=== PATIENT | female | born 1960 | race Caucasian/White ===

== ENCOUNTER 2016-11-18 09:57 | Emergency (ER) | payer OTHER ==
[~2016-11-18] VITALS: Ht 160 cm; Wt 70.0 kg
[~2016-11-18 09:57] MED LIST: ALUMCHW2 PO; AZIT-57 PO; FENT25DI10 TD; IPRA1AER2 INH; METO1TAB54 PO; ONDA4TAB46 PO
[2016-11-18 10:00] VITALS: TEMP 37.2; Ht 160 cm; Wt 70.0 kg
[2016-11-18] MEDS ORDERED: ONDANSETRON INJ 2 MG/ML 2 ML VIAL IV STA (10:12)
[2016-11-18] MEDS ORDERED: ALBUTEROL 0.083% NEBU SOLN 3 ML VIAL INH STA (10:12)
[2016-11-18] MEDS ORDERED: SODIUM CHLORIDE 0.9% 1000ML 1,000 ML IV STA (10:12)
[2016-11-18] MEDS ORDERED: BENZONATATE 100MG CAP PO ONE (10:15)
[2016-11-18 10:43] LABS: HEMATOCRIT 32.7 % (37-47); MEAN CELL VOLUME 87.2 fL (80-100); MEAN CORPUSCULAR HEMOGLOBIN 30.7 pg (25-34); MEAN CORPUSCULAR HGB CONC 35.2 g/dl (32-36); MEAN PLATELET VOLUME 8.6 fL (7.4-10.4); PLATELET COUNT 206 K/uL (130-400); RED BLOOD COUNT 3.75 M/uL (4.2-5.4); WHITE BLOOD COUNT 5.48 K/uL (4.8-10.8)
[2016-11-18 11:01] LABS: ALT/SGPT 22 U/L (12-78); BLOOD UREA NITROGEN 7 mg/dl (7-18); BUN/CREATININE RATIO 11.9 (10-20); CALCIUM 8.4 mg/dl (8.5-10.1); CARBON DIOXIDE 17 mmol/L (21-32); CHLORIDE 106 mmol/L (98-107); CREATININE 0.59 mg/dl (0.60-1.20); GLUCOSE 109 mg/dl (70-99); POTASSIUM 3.2 mmol/L (3.5-5.1); SODIUM 136 mmol/L (136-145)
[2016-11-18 11:06] LABS: ALKALINE PHOSPHATASE 56 U/L (45-117); AST/SGOT 20 U/L (15-37)
[2016-11-18 11:10] LABS: BASO % 0.2 %; BASO ABS # 0.01 K/uL (0-0.2); COMPLETE YES; EOS % 0.2 %; IG% 0.4 %; LYMPH % 17.2 %; LYMPH ABS # 0.94 K/uL (1.2-3.4); MONO % 11.1 %; NEUT % 70.9 %
[2016-11-18] MEDS ORDERED: ACETAMINOPHEN 500 MG TAB PO STA (11:15)
--- NOTE | 2016-11-18 11:35 | DIAGNOSTIC IMAGING REPORT ---
CHEST 2 VIEWS ROUTINE CLINICAL HISTORY: Shortness of breath. COMPARISON STUDY: Chest radiograph and chest CT November 14, 2016. FINDINGS: Incidental note is made of several healed right rib fractures, an anterior cervical spine fusion and partially imaged lumbar spine hardware. Lung volumes are normal. There is no pneumothorax or pleural effusion. Linear left basilar opacity is suggestive of atelectasis. There is no evidence of pulmonary edema. Cardiac size is normal. Mediastinal contours are normal. IMPRESSION: No acute cardiopulmonary findings. Electronically signed by: Chuck Buenrostro M.D. 11/18/2016 11:33 AM
[2016-11-18 11:45] LABS: URINE APPEARANCE CLEAR (CLEAR); URINE BILIRUBIN NEG (NEG); URINE COLOR YELLOW; URINE NITRITE NEG (NEG); URINE PH 7.5 (4.5-7.5); URINE SPECIFIC GRAVITY 1.001 (1.000-1.030); UROBILINOGEN NEG (NEG)
[2016-11-18 11:54] LABS: MANUAL MICROSCOPIC REQUIRED? NO; REVIEW REQ? NO
--- NOTE | 2016-11-18 12:30 | DIAGNOSTIC IMAGING REPORT ---
ABDOMEN 2 VIEWS CLINICAL HISTORY: vomiting nausea COMPARISON STUDY: 11/12/2015 FINDINGS: Nonobstructive bowel pattern. Extensive postoperative change of the lumbar spine and bony pelvis. This is been described previously. Old healed fractures of the left pubic ring. Deformity left lateral iliac wing presumably postoperative and or posttraumatic. As a nonacute finding. IMPRESSION: Nonobstructive bowel pattern. Electronically signed by: Jerome Daugherty M.D. 11/18/2016 12:28 PM
[2016-11-18 13:49] LABS: VEN BLOOD GAS BASE EXCESS -5.2 mmol/L; VENOUS BLOOD GAS PCO2 31 mmHg (38.0-50.0); VENOUS BLOOD GAS PO2 30 mmHg
[2016-11-18 13:50] LABS: VEN BLD GAS O2 SATURATION < 60.0 %
[2016-11-18] MEDS ORDERED: PRED50TA PO (14:12)
[2016-11-18] MEDS ORDERED: POTASSIUM CHLORIDE 10 MEQ TABCR PO STA (14:14)
[2016-11-18 14:30] VITALS: BP 125/74; PULSE 87; O2SAT 97
--- NOTE | 2016-11-18 18:06 | EMERGENCY ROOM VISIT NOTE ---
History Report prepared by Tonya: Dionne Clemons Under the Supervision of: Dr. Lexx Williamson D.O. First contact with patient: 10:02 Chief Complaint: RESPIRATORY PROBLEMS Stated Complaint: CAN'T BREATHE, DARK MUCUS, DIARRHEA, NAUSEA, WEAK Nursing Triage Summary: Triage Note: pt reports "i just feel terrible for the past few days and i am coughing up green sputum, i was in here a few days ago and dx with bronchitis." History of Present Illness The patient is a 56 year old female who presents to the Emergency Room with complaints of persistent respiratory problems that started one week ago. She states that she is experiencing shortness of breath and a productive cough with dark green sputum. She is also experiencing rhinorrhea, chills, nausea, and diarrhea. She is unsure of how many episodes of diarrhea she has experienced. The patient has not recorded any fevers. She denies sore throat, abdominal pain , and vomiting. The patient was seen in the ED 4 days ago for similar symptoms. She had a CT of her head and sinuses as well as a CT for a PE. All of the CT scans were unremarkable. The patient also tested negative for both influenza A and influenza B during that visit. She was diagnosed with bronchitis and sent home with a z-pack. She started the z-pack 4 days ago. The patient states that her mother was recently admitted for influenza. The patient adds that she has COPD. Source of History: patient Onset: one week ago Position: chest Quality: other (respiratory problems) Timing: other (persistent) Associated Symptoms: + chills, + diarrhea, + nausea, No abdominal pain, No sorethroat, No vomiting Note: rhinorrhea Review of Systems See HPI for pertinent positives & negatives. A total of 10 systems reviewed and were otherwise negative. Past Medical & Surgical Medical Problems: (1) Anxiety (2) Bipolar disorder (3) Bipolar Disorder, Unspecified (4) Cervicalgia (5) Chronic alcoholism in remission (6) Chronic back pain (7) Chronic headache (8) Chronic hepatitis C (9) Chronic obstructive lung disease (10) Chronic urinary urge incontinence (11) Closed head injury (12) Depression (13) Gastroesophageal reflux disease (14) Gastroparesis (15) History of aspiration pneumonia (16) History of Clostridium difficile colitis (17) History of drug abuse (18) History of sepsis (19) History of supraventricular tachycardia (20) Lumbago (21) Osteoarthritis (22) Osteoporosis (23) Pancreatitis (24) PTSD (post-traumatic stress disorder) (25) Ulnar neuropathy Surgical Problems: (1) Bladder Repair (2) H/O colonoscopy (3) H/O cystoscopy (4) H/O esophagogastroduodenoscopy (5) H/O sinus surgery (6) History of hip surgery (7) Right Tibia/Fibula Repair (8) S/P cervical spinal fusion (9) s/p colonoscopy (10) s/p cystoscopy (11) s/p EGD (12) S/p esophagogastric fundoplasty (13) s/p laparoscopic fundoplication hiatal hernia (14) S/p lumbar decompression/fusion (15) s/p reconstruction hip socket (16) s/p tonsillectomy (17) S/P tonsillectomy and adenoidectomy (18) s/p tubal ligation (19) S/P tubal ligation Family History Diabetes mellitus FATHER GRANDMOTHER FH: colon cancer GRANDMOTHER Gallbladder disease Heart disease Hypertension FATHER MOTHER Kidney disease Kidney stones Social History Smoking Status: Never Smoker Alcohol Use: none Drug Use: other Marital Status: Housing Status: lives with family Occupation Status: disabled Current/Historical Medications Scheduled Albuterol Sulfate (Proair Respiclick), 1 PUFF INH TID Amlodipine (Norvasc), 2.5 MG PO DAILY Arformoterol Tartrate (Brovana 15MCG/2ML Soln), 1 PUFF INH BID Aripiprazole (Abilify), 30 MG PO HS Azelastine Hcl (Astelin Nasal Miles), 2 SPRAYS NA TID Azithromycin (Azithromycin), 1 TAB PO DAILY Baclofen (Lioresal), 10 MG PO TID Buspirone Hcl (Buspar), 15 MG PO BID Cetirizine (Zyrtec), 10 MG PO DAILY Dexlansoprazole (Dexilant), 60 MG PO DAILY Famciclovir (Famvir), 1,000 MG PO BID Fentanyl (Duragesic), 25 MCG TD Q72H Ferrous Sulfate (Ferrous Sulfate), 325 MG PO QAM Fluticasone Propionate (Nasal) (Flonase Allergy Relief), 2 SPRAYS MALLORIE BID Folic Acid (Folvite), 1 MG PO QAM Lamotrigine (Lamictal), 25 MG PO BID Lamotrigine (Lamictal), 100 MG PO BID Lorazepam (Ativan), 2 MG PO BID Metoclopramide Hcl (Reglan), 5 MG PO QID Metoprolol Succinate (Toprol Xl), 25 MG PO DAILY Mirabegron (Myrbetriq), 50 MG PO QAM Multiple Vitamins W/ Minerals (Centrum Adults), 1 TAB PO QAM Polyethylene Glycol 3350 (Miralax), 17 GM PO DAILY Prednisone (Prednisone), 50 MG PO DAILY Ranitidine (Zantac), 300 MG PO HS Sulindac (Clinoril), 150 MG PO BID Topiramate (Topamax), 100 MG PO BID Venlafaxine Hcl (Effexor Xr), 75 MG PO DAILY@ NOON Venlafaxine Hcl (Effexor Xr), 300 MG PO QAM Scheduled PRN Docusate Sodium (Docusate Sodium), 100 MG PO BID PRN for Constipation Furosemide (Lasix), 20 MG PO DAILY PRN for SWELLING/WEIGHT GAIN Glycerin (Laxative) (Glycerin Adult), 1 SUPP MA DAILY PRN for Constipation Mupirocin 2% (Bactroban 2%), 1 APPLN MALLORIE TID PRN for UNDECIDED Ondansetron Hcl (Zofran), 4 MG PO Q8 PRN for Nausea Allergies Coded Allergies: Clarithromycin (Verified Adverse Reaction, Intermediate, vomiting, 11/18/16) Chlorpromazine (Verified Adverse Reaction, Unknown, LIGHTHEADED DIZZY, 11/18) Lisinopril (Verified Adverse Reaction, Unknown, Cough, 11/18/16) Reported by PT. Physical Exam Vital Signs Date Time Temp Pulse Resp B/P Pulse Ox O2 Delivery O2 Flow Rate FiO2 11/18/16 14:30 87 20 125/74 97 11/18/16 13:50 83 20 120/73 96 Room Air 11/18/16 11:41 92 20 117/75 96 Room Air 11/18/16 10:10 97 Room Air 11/18/16 10:00 37.2 99 22 128/84 96 Room Air Physical Exam GENERAL: alert, sitting up in bed, nonproductive cough, disheveled appearing, well nourished, no distress, non-toxic EYE EXAM: normal conjunctiva OROPHARYNX: no exudate, no erythema, lips, buccal mucosa, and tongue normal and mucous membranes are moist NECK: supple, no nuchal rigidity, no adenopathy, non-tender LUNGS: Rhonchi bilateral upper lobes. Normal chest wall mechanics HEART: no murmurs, S1 normal and S2 normal ABDOMEN: abdomen soft, non-tender, hyperactive bowel sounds, no masses, no rebound or guarding. BACK: Back is symmetrical on inspection and there is no deformity, no midline tenderness, no CVA tenderness. SKIN: no rashes and no bruising UPPER EXTREMITIES: upper extremities are grossly normal. LOWER EXTREMITIES: No pitting edema. NEURO EXAM: Normal sensorium, cranial nerves II-XII grossly intact, normal speech, no gross weakness of arms, no gross weakness of legs. Medical Decision & Procedures ER Provider Diagnostic Interpretation: Xray results per the radiologist and my interpretation. CHEST 2 VIEWS ROUTINE CLINICAL HISTORY: Shortness of breath. COMPARISON STUDY: Chest radiograph and chest CT November 14, 2016. FINDINGS: Incidental note is made of several healed right rib fractures, an anterior cervical spine fusion and partially imaged lumbar spine hardware. Lung volumes are normal. There is no pneumothorax or pleural effusion. Linear left basilar opacity is suggestive of atelectasis. There is no evidence of pulmonary edema. Cardiac size is normal. Mediastinal contours are normal. IMPRESSION: No acute cardiopulmonary findings. Electronically signed by: Chuck Buenrostro M.D. 11/18/2016 11:33 AM ABDOMEN 2 VIEWS CLINICAL HISTORY: vomiting nausea COMPARISON STUDY: 11/12/2015 FINDINGS: Nonobstructive bowel pattern. Extensive postoperative change of the lumbar spine and bony pelvis. This is been described previously. Old healed fractures of the left pubic ring. Deformity left lateral iliac wing presumably postoperative and or posttraumatic. As a nonacute finding. IMPRESSION: Nonobstructive bowel pattern. Electronically signed by: Jerome Daugherty M.D. 11/18/2016 12:28 PM Laboratory Results 11/18/16 10:29 Red Blood Count 3.75, Mean Corpuscular Volume 87.2, Mean Corpuscular Hemoglobin 30.7, Mean Corpuscular Hemoglobin Concent 35.2, Mean Platelet Volume 8.6, Neutrophils (%) (Auto) 70.9, Lymphocytes (%) (Auto) 17.2, Monocytes (%) (Auto) 11.1, Eosinophils (%) (Auto) 0.2, Basophils (%) (Auto) 0.2, Neutrophils # (Auto ) 3.89, Lymphocytes # (Auto) 0.94, Monocytes # (Auto) 0.61, Eosinophils # (Auto ) 0.01, Basophils # (Auto) 0.01 11/18/16 10:29 Test 11/18/16 10:12 11/18/16 10:29 11/18/16 11:14 11/18/16 13:33 Influenza Type A Antigen Neg for Influ A (NEG) Influenza Type B Antigen Neg for Influ B (NEG) White Blood Count 5.48 K/uL (4.8-10.8) Red Blood Count 3.75 M/uL (4.2-5.4) Hemoglobin 11.5 g/dL (12.0-16.0) Hematocrit 32.7 % (37-47) Mean Corpuscular Volume 87.2 fL (80-100) Mean Corpuscular Hemoglobin 30.7 pg (25-34) Mean Corpuscular Hemoglobin Concent 35.2 g/dl (32-36) Platelet Count 206 K/uL (130-400) Mean Platelet Volume 8.6 fL (7.4-10.4) Neutrophils (%) (Auto) 70.9 % Lymphocytes (%) (Auto) 17.2 % Monocytes (%) (Auto) 11.1 % Eosinophils (%) (Auto) 0.2 % Basophils (%) (Auto) 0.2 % Neutrophils # (Auto) 3.89 K/uL (1.4-6.5) Lymphocytes # (Auto) 0.94 K/uL (1.2-3.4) Monocytes # (Auto) 0.61 K/uL (0.11-0.59) Eosinophils # (Auto) 0.01 K/uL (0-0.5) Basophils # (Auto) 0.01 K/uL (0-0.2) RDW Standard Deviation 45.2 fL (36.4-46.3) RDW Coefficient of Variation 14.0 % (11.5-14.5) Immature Granulocyte % (Auto) 0.4 % Immature Granulocyte # (Auto) 0.02 K/uL (0.00-0.02) Anion Gap 13.0 mmol/L (3-11) Est Creatinine Clear Calc Drug Dose 99.9 ml/min Estimated GFR () 118.8 Estimated GFR (Non- 102.5 BUN/Creatinine Ratio 11.9 (10-20) Calcium Level 8.4 mg/dl (8.5-10.1) Total Bilirubin 0.3 mg/dl (0.2-1) Direct Bilirubin 0.1 mg/dl (0-0.2) Aspartate Amino Transf (AST/SGOT) 20 U/L (15-37) Alanine Aminotransferase (ALT/SGPT) 22 U/L (12-78) Alkaline Phosphatase 56 U/L (45-117) Troponin I < 0.015 ng/ml (0-0.045) Total Protein 7.3 gm/dl (6.4-8.2) Albumin 3.4 gm/dl (3.4-5.0) Lipase 104 U/L (73-393) Urine Color YELLOW Urine Appearance CLEAR (CLEAR) Urine pH 7.5 (4.5-7.5) Urine Specific [place] 1.001 (1.000-1.030) Urine Protein NEG (NEG) Urine Glucose (UA) NEG (NEG) Urine Ketones NEG (NEG) Urine Occult Blood NEG (NEG) Urine Nitrite NEG (NEG) Urine Bilirubin NEG (NEG) Urine Urobilinogen NEG (NEG) Urine Leukocyte Esterase NEG (NEG) Venous Blood pH 7.40 (7.36-7.41) Venous Blood Partial Pressure CO2 31 mmHg (38.0-50.0) Venous Blood Partial Pressure O2 30 mmHg Venous Blood HCO3 19 mmol/L Venous Blood Oxygen Saturation < 60.0 % Venous Blood Base Excess -5.2 mmol/L Laboratory results per my review. Medications Administered Medications (Trade) Dose Ordered Sig/Jennifer Route Start Time Stop Time Status Last Admin Dose Admin Albuterol Sulfate (Ventolin 0.083% 2.5MG/3ML [facility]) 2.5 mg NOW STAT INH 11/18/16 10:12 11/18/16 10:15 DC 11/18/16 10:28 2.5 MG Benzonatate 100 mg 100 mg NOW ONCE PO 11/18/16 10:15 11/18/16 10:16 DC 11/18/16 10:27 100 MG Sodium Chloride (Nss 1000ml) 1,000 ml @ 999 mls/hr Q1H1M STAT IV 11/18/16 10:12 11/18/16 11:12 DC 11/18/16 10:28 999 MLS/HR Ondansetron HCl (Zofran Inj) 4 mg NOW STAT IV 11/18/16 10:12 11/18/16 10:15 DC 11/18/16 10:34 4 MG Acetaminophen (Tylenol Tab) 1,000 mg NOW STAT PO 11/18/16 11:15 11/18/16 11:17 DC 11/18/16 11:28 1,000 MG Prednisone (PredniSONE TAB) 40 mg NOW STAT PO 11/18/16 14:11 11/18/16 14:12 DC 11/18/16 14:23 40 MG Potassium Chloride (Klor-Con M10) 40 meq NOW STAT PO 11/18/16 14:14 11/18/16 14:15 DC 11/18/16 14:23 40 MEQ ECG Indication: SOB/dyspnea Rate (beats per minute): 91 Rhythm: sinus rhythm Findings: no ectopy, other (normal axis, poor baseline in inferior leads) Comparison ECG Date: 11/14/2016 Change: no significant change ED Course ED COURSE: Vital signs were reviewed and showed normal. The patients medical record was reviewed The above diagnostic studies were performed and reviewed. ED treatments and interventions as stated above. 1006: The patient was evaluated in room A3. A complete history and physical examination was performed. 1012: Ordered Zofran 4 mg IV, Sodium Chloride 1000 ml @ 999 mls/hr IV, Albuterol Sulfate 2.5 mg INH 1015: Ordered Benzonatate 100 mg PO 1115: Ordered Tylenol Tab 1000 mg PO 1332: I reassessed and updated the patient. 1411: Ordered Prednisone 40 mg PO 1414: Ordered Potassium Chloride 40 meq PO 1418: Upon reevaluation, the patient is doing well. I discussed my findings with the patient and she understands and agrees with the treatment plan. Based on the patients age, coexisting illnesses, exam and lab findings the decision to treat as an outpatient was made. The patient remained stable while under my care. The patient appeared well at the time of discharge. Medical Decision Differential diagnoses includes but is not limited to pneumonia, bronchitis, COPD/Asthma exacerbation, pneumothorax, pulmonary embolism, congestive heart failure, acute coronary syndrome. Patient is a 56-year-old female who presents the ER for cough, runny nose, which is been present for the past week. She has taken azithromycin without any improvement. She does have a history of COPD. Parent's family member was just admitted with influenza to the hospital. Vitals were stable upon presentation. She is not hypoxic. Chest shows no focal infiltrate. Labs show no significant leukocytosis or anemia. BMP did show a potassium of 3.2. Bicarbonate was slightly low at 17. This is clearly secondary to her profuse diarrhea. She is unable to give a stool on the ER. I did not test her for C. difficile with a recent antibiotic and history of C. difficile. She will follow -up with her PCP for C. difficile testing. VBG was obtained and did not show acidosis. Troponin was normal. Patient was given a neb treatment along with steroids and discharged to follow-up with her PCP. I do favor this is likely viral influenza exacerbating her COPD. Patient was discharged well-appearing to follow-up with her primary care doctor. Discussed with Pt concerning signs and symptoms to watch out for. Pt was instructed to follow up with their PCP and discussed with the patient their option to return to the ED at anytime for persistent or worsening symptoms. The appropriate anticipatory guidance and out- patient management, including indications for return to the emergency department , were explained at length to the patient and understood. Impression Primary Impression: Viral URI Additional Impressions: COPD exacerbation, Low bicarbonate Scribe Attestation The scribe's documentation has been prepared under my direction and personally reviewed by me in its entirety. I confirm that the note above accurately reflects all work, treatment, procedures, and medical decision making performed by me. Departure Information Dispostion Home / Self-Care Prescriptions Prednisone (Prednisone) 50 Mg Tab 50 MG PO DAILY for 4 Days, TAB Prov: Lexx Williamson, DO 11/18/16 Referrals Jerome Murillo M.D. (PCP) Forms HOME CARE DOCUMENTATION FORM, IMPORTANT VISIT INFORMATION, WORK / SCHOOL INSTRUCTIONS Patient Instructions A Signature Page, ED URI Viral, [facility] Additional Instructions Please follow up with your primary care doctor with in the next 24 hours. Any worsening of your symptoms, please return to the ED immediately. This includes persistent fevers greater than 100.4, passing out, worsening pain, coughing up large amounts of blood, or any other concerning signs or symptoms from your standpoint. Please take steroids as prescribed. You should also follow with her primary care doctor to give a stool sample for possible C. difficile.
[2016-12-02] MEDS ORDERED: BACL10TA PO (00:03)
[2016-12-02] MEDS ORDERED: RANI300T2 PO (00:11)
[2016-12-02] MEDS ORDERED: FAMC500T4 PO (00:16)
[2016-12-02] MEDS ORDERED: DEXL60CA4 PO (00:19)
[2016-12-02] MEDS ORDERED: FLUT0.15 NAE (00:25)
[2016-12-02] MEDS ORDERED: GLYC2SUP PR (00:36)
[2016-12-02] MEDS ORDERED: FOLI1TAB8 PO (05:34)
[2016-12-02] MEDS ORDERED: SULI150T PO (06:54)
[2016-12-02] MEDS ORDERED: DOCU100C31 PO (06:56)
[2016-12-02] MEDS ORDERED: FURO-85 PO (07:06)
[2016-12-02] MEDS ORDERED: METO25TA3 PO (07:09)
[2016-12-02] MEDS ORDERED: ATV/2 PO (07:12)
[2016-12-02] MEDS ORDERED: AMLO2.5T PO (07:14)
[2016-12-02] MEDS ORDERED: BUSP15TA70 PO (07:17)
[2016-12-02] MEDS ORDERED: LAMO100T16 PO (07:19)
[2016-12-02] MEDS ORDERED: FERR325T5 PO (08:37)
[2016-12-02] MEDS ORDERED: MULT-610 PO (09:18)
[2016-12-02] MEDS ORDERED: ASTN (09:53)
[2016-12-02] MEDS ORDERED: BCTROWC NAE (09:55)
[2016-12-02] MEDS ORDERED: ALBU18002 INH (10:48)
[2016-12-02] MEDS ORDERED: MIRA1TAB3 PO (11:36)
[2016-12-08] MEDS ORDERED: LVQ750 PO (13:21)
[2016-12-08] MEDS ORDERED: VTMD PO (13:21)
[2016-12-08] MEDS ORDERED: FENT25DI10 TD (13:21)
[2017-01-07] MEDS ORDERED: MONT1TAB5 PO (11:19)
[2017-01-12] MEDS ORDERED: HYDR-5688 PO (13:23)
[2017-01-12] MEDS ORDERED: ATV/1 PO (13:23)
[2017-01-12] MEDS ORDERED: FENT25DI10 TD (13:23)
[2017-01-12] MEDS ORDERED: DOCU-94 PO (15:05)
[2017-02-10] MEDS ORDERED: NYSTATIN POWDER EXT (09:36)
[2017-02-10] MEDS ORDERED: RANI300T2 PO (09:36)
[2017-02-10] MEDS ORDERED: FERR1TAB62 PO (09:36)
[2017-02-10] MEDS ORDERED: POLY335019 PO (09:36)
[2017-02-10] MEDS ORDERED: FOLI1TAB8 PO (09:36)
[2017-02-10] MEDS ORDERED: MIRA1TAB3 PO (09:36)
[2017-02-10] MEDS ORDERED: DEXL60CA4 PO (09:36)
[2017-02-10] MEDS ORDERED: MULT-506 PO (09:36)
[2017-02-10] MEDS ORDERED: ZOLP10TA PO (09:36)
[2017-02-10] MEDS ORDERED: CHOL1TAB63 PO (09:36)
[2017-02-10] MEDS ORDERED: ATV/2 PO (09:36)
[2017-02-10] MEDS ORDERED: VENL150C56 PO (09:36)
[2017-02-10] MEDS ORDERED: BISA10SU3 PR (09:36)
[2017-02-10] MEDS ORDERED: FENT25DI10 TD (09:36)
[2017-02-10] MEDS ORDERED: LAMO100T16 PO (09:36)
[2017-02-10] MEDS ORDERED: BUSP-8 PO (09:36)
[2017-02-10] MEDS ORDERED: CLN150 PO (09:36)
[2017-02-10] MEDS ORDERED: EFF75 PO (09:36)
[2017-02-10] MEDS ORDERED: ALUMCHW2 PO (09:36)
[2017-02-10] MEDS ORDERED: TOPI100T20 PO (09:36)
[2017-02-10] MEDS ORDERED: METO25TA3 PO (09:36)
[2017-02-10] MEDS ORDERED: FURO-85 PO (09:36)
[2017-02-10] MEDS ORDERED: CETI10TA84 PO (09:36)
[2017-02-10] MEDS ORDERED: METO1TAB54 PO (09:36)
[2017-02-10] MEDS ORDERED: FLUT0.15 NAE (09:36)
[2017-02-10] MEDS ORDERED: CYCL5TAB PO ×2 (09:36)
[2017-02-10] MEDS ORDERED: LAMO25TA PO (09:36)
[2017-02-10] MEDS ORDERED: MONT1TAB3 PO (09:36)
[2017-02-10] MEDS ORDERED: ONDA8TAB6 PO (09:36)
[2017-02-10] MEDS ORDERED: CALC500C70 PO (09:36)
[2017-02-10] MEDS ORDERED: ARIP30TA3 PO (09:36)
[2017-03-27] MEDS ORDERED: BACL10TA PO (09:37)
[2017-03-27] MEDS ORDERED: [UNRECOGNIZED DRUG - CODE] RE (09:37)
[2017-03-27] MEDS ORDERED: LAMO150T PO (09:37)
[2017-03-27] MEDS ORDERED: POTA10CA28 PO (09:37)
[2017-03-27] MEDS ORDERED: AMOX875T PO (09:37)
[2017-03-27] MEDS ORDERED: POLY335019 PO (09:37)
[2017-03-27] MEDS ORDERED: AZEL30SP NAE (09:37)
[2017-04-12] MEDS ORDERED: HYDR-5688 PO (08:28)
[2017-04-12] MEDS ORDERED: ASPEC325 PO (08:28)
[2017-06-22] MEDS ORDERED: DIVA500T59 PO (07:45)
[2017-07-27] MEDS ORDERED: CYCL10TA6 PO (08:01)
[2017-09-28] MEDS ORDERED: AMOX1TAB42 PO (08:11)
[2017-09-28] MEDS ORDERED: AMT24 PO (08:11)
[2017-09-28] MEDS ORDERED: PRD/1 PO (08:12)
[2017-10-18] MEDS ORDERED: CEPH500C2 PO (08:34)
[2017-10-18] MEDS ORDERED: HYDR-5806 PO (08:34)
[2017-11-05] MEDS ORDERED: DXY100 PO (11:06)
[2017-11-05] MEDS ORDERED: AMOX1TAB43 PO (11:06)
[2017-11-15] MEDS ORDERED: LAMO150T PO (09:45)
[2017-11-15] MEDS ORDERED: BUSP-8 PO (09:45)
== END 2016-11-18 14:31 | disposition home or self-care (01) ==
LOC: C.EDB 09:58 → C.EDA 14:31
DX: J06.9 Acute upper respiratory infection, unspecified (principal); J44.1 Chronic obstructive pulmonary disease with (acute) exacerbation; E87.8 Other disorders of electrolyte and fluid balance, not elsewhere classified; R19.7 Diarrhea, unspecified; F41.9 Anxiety disorder, unspecified; F31.9 Bipolar disorder, unspecified; K21.9 Gastro-esophageal reflux disease without esophagitis; G89.29 Other chronic pain; M54.9 Dorsalgia, unspecified; Z79.899 Other long term (current) drug therapy; Z79.891 Long term (current) use of opiate analgesic

== ENCOUNTER 2016-12-02 18:06 | Emergency (ER) | payer OTHER ==
[~2016-12-02] VITALS: Ht 160 cm; Wt 70.0 kg
[~2016-12-02 18:06] MED LIST changes: +ALBU18002 INH; -ALUMCHW2 PO; +AMLO2.5T PO; +ASTN; +ATV/2 PO; -AZIT-57 PO; +BACL10TA PO; +BCTROWC NAE; +BUSP15TA70 PO; +DEXL60CA4 PO; +DOCU100C31 PO; +FAMC500T4 PO; +FERR325T5 PO; +FLUT0.15 NAE; +FOLI1TAB7 PO; +FURO-85 PO; +GLYC2SUP PR; -IPRA1AER2 INH; +LAMO100T16 PO; +METO25TA3 PO; +MIRA1TAB3 PO; +MULT-610 PO; +RANI300T2 PO; +SULI150T PO; +ZTHM250 PO
[2016-12-02 18:18] VITALS: TEMP 36.9; Ht 160 cm; Wt 70.0 kg
[2016-12-02] MEDS ORDERED: ARIP1TAB PO (18:26)
[2016-12-02] MEDS ORDERED: RGL/5 PO (18:26)
[2016-12-02] MEDS ORDERED: ZOLP10TA6 PO (18:26)
[2016-12-02] MEDS ORDERED: ONDA4TAB46 SL (18:26)
[2016-12-02] MEDS ORDERED: VNTHFA/IN INH (19:16)
[2016-12-02] MEDS ORDERED: ACET1TAB84 PO (19:23)
[2016-12-02] MEDS ORDERED: HYDROCODONE/ACETAMOPHEN 5/325MG TAB PO STA (19:26)
--- NOTE | 2016-12-02 19:28 | EMERGENCY ROOM VISIT NOTE ---
History Report prepared by Tonya: Florencio Mcguire Under the Supervision of: Dr. Mahad Puentes M.D. First contact with patient: 19:15 Chief Complaint: GROIN PAIN Stated Complaint: EXTREME PAIN R GROIN,HIP,BACK, CAN BARELY WA;K History of Present Illness The patient is a 56 year old female who presents to the Emergency Room with complaints of worsening right groin pain beginning this morning. She notes her pain radiates to her hip and back but not down her legs. She notes the pain is worsened with movement and relieved with rest. She denies any recent falls or trauma. She reports she has a history of back problems, and had 2 back fusions and right hip repair in the past. The patient notes having a headache and nausea , and denies any fever, urinary symptoms though she has incontinence at baseline , leg swelling, or rash. She uses a Fentanyl patch placed 2 days ago and has taken 2 Sulindac and 2 Tylenol for her pain. Source of History: patient Onset: this morning Position: other (right groin) Quality: other (groin pain) Timing: worsening Modifying Factors (Worsening): movement Modifying Factors (Relieving): rest Associated Symptoms: + headache, + nausea, No fevers, No rash, No urinary symptoms Note: The patient denies any leg swelling. Review of Systems See HPI for pertinent positives & negatives. A total of 10 systems reviewed and were otherwise negative. Past Medical & Surgical Medical Problems: (1) Anxiety (2) Bipolar disorder (3) Bipolar Disorder, Unspecified (4) Cervicalgia (5) Chronic alcoholism in remission (6) Chronic back pain (7) Chronic headache (8) Chronic hepatitis C (9) Chronic obstructive lung disease (10) Chronic urinary urge incontinence (11) Closed head injury (12) Depression (13) Gastroesophageal reflux disease (14) Gastroparesis (15) History of aspiration pneumonia (16) History of Clostridium difficile colitis (17) History of drug abuse (18) History of sepsis (19) History of supraventricular tachycardia (20) Lumbago (21) Osteoarthritis (22) Osteoporosis (23) Pancreatitis (24) PTSD (post-traumatic stress disorder) (25) Ulnar neuropathy Surgical Problems: (1) Bladder Repair (2) H/O colonoscopy (3) H/O cystoscopy (4) H/O esophagogastroduodenoscopy (5) H/O sinus surgery (6) History of hip surgery (7) Right Tibia/Fibula Repair (8) S/P cervical spinal fusion (9) s/p colonoscopy (10) s/p cystoscopy (11) s/p EGD (12) S/p esophagogastric fundoplasty (13) s/p laparoscopic fundoplication hiatal hernia (14) S/p lumbar decompression/fusion (15) s/p reconstruction hip socket (16) s/p tonsillectomy (17) S/P tonsillectomy and adenoidectomy (18) s/p tubal ligation (19) S/P tubal ligation Family History Diabetes mellitus FATHER GRANDMOTHER FH: colon cancer GRANDMOTHER Gallbladder disease Heart disease Hypertension FATHER MOTHER Kidney disease Kidney stones Social History Smoking Status: Current Some Day Smoker Alcohol Use: none Drug Use: other Marital Status: Housing Status: lives with family Occupation Status: disabled Current/Historical Medications Scheduled Albuterol Hfa (Ventolin Hfa), 2 PUFFS INH QID Albuterol Sulfate (Proair Respiclick), 1 PUFF INH TID Aripiprazole (Abilify), 30 MG PO HS Azelastine Hcl (Astelin Nasal Stevenson), 2 SPRAYS NA TID Baclofen (Lioresal), 10 MG PO TID Buspirone Hcl (Buspar), 15 MG PO BID Cetirizine (Zyrtec), 10 MG PO DAILY Dexlansoprazole (Dexilant), 60 MG PO DAILY Fentanyl (Duragesic), 25 MCG TD Q72H Ferrous Sulfate (Ferrous Sulfate), 325 MG PO QAM Fluticasone Propionate (Nasal) (Flonase Allergy Relief), 2 SPRAYS MALLORIE BID Folic Acid (Folvite), 1 MG PO QAM Lamotrigine (Lamictal), 25 MG PO BID Lamotrigine (Lamictal), 100 MG PO BID Lorazepam (Ativan), 2 MG PO BID Metoclopramide HCl (Metoclopramide HCl), 5 MG PO ACHS Metoprolol Succinate (Toprol Xl), 25 MG PO DAILY Mirabegron (Myrbetriq Er), 50 MG PO QAM Multiple Vitamins W/ Minerals (Centrum Adults), 1 TAB PO QAM Ranitidine (Zantac), 300 MG PO QAM Sulindac (Clinoril), 150 MG PO BID Topiramate (Topamax), 100 MG PO BID Venlafaxine Hcl (Effexor Xr), 75 MG PO DAILY@ NOON Venlafaxine Hcl (Effexor Xr), 300 MG PO QAM Zolpidem Tartrate (Zolpidem Tartrate), 10 MG PO HS Scheduled PRN Acetaminophen (Tylenol Arthritis Ext Rel), 650 MG PO Q8H PRN for Pain Amlodipine (Norvasc), 2.5 MG PO DAILY PRN for HNT Arformoterol Tartrate (Brovana 15MCG/2ML Soln), 1 PUFF INH BID PRN for SOB/ Wheezing Docusate Sodium (Docusate Sodium), 100 MG PO BID PRN for Constipation Famciclovir (Famvir), 1,000 MG PO BID PRN for BREAKOUTS Furosemide (Lasix), 20 MG PO DAILY PRN for SWELLING/WEIGHT GAIN Glycerin (Laxative) (Glycerin Adult), 1 SUPP TX DAILY PRN for Constipation Hydrocodone/Acetaminophen 5MG/325MG ([place] 5MG/325MG), 1-2 TAB PO Q6H PRN for Pain Mupirocin 2% (Bactroban 2%), 1 APPLN MALLORIE TID PRN for UNDECIDED Ondansetron Hcl (Zofran), 4 MG SL Q8 PRN for Nausea Polyethylene Glycol 3350 (Miralax), 17 GM PO DAILY PRN for Constipation Promethazine Hcl (Phenergan), 25 MG PO Q4H PRN for Nausea Allergies Coded Allergies: Clarithromycin (Verified Adverse Reaction, Intermediate, vomiting, 11/18/16) Chlorpromazine (Verified Adverse Reaction, Unknown, LIGHTHEADED DIZZY, 11/18) Lisinopril (Verified Adverse Reaction, Unknown, Cough, 11/18/16) Reported by PT. Uncoded Allergies: VISTERAL (Allergy, Severe, THROAT CONSTRICTS/CAN NOT VOID, 12/02/16) Physical Exam Vital Signs Date Time Temp Pulse Resp B/P Pulse Ox O2 Delivery O2 Flow Rate FiO2 12/02/16 21:07 75 20 139/94 98 Room Air 12/02/16 19:55 71 20 126/89 96 Room Air 1/17/17 18:18 36.9 84 20 116/76 95 Room Air Physical Exam GENERAL: Patient is uncomfortable appearing and in mild distress. HEENT: No acute trauma, normocephalic atraumatic, mucous membranes moist, no nasal congestion, no scleral icterus. NECK: No stridor, no adenopathy, no meningismus, trachea is midline. LUNGS: No dyspnea. Clear to auscultation and equal bilaterally. No wheeze, no rhonchi. HEART: Regular rate and rhythm. No murmurs, rubs, gallops appreciated. ABDOMEN: Soft, nontender, bowel sounds positive, no masses appreciated, no peritonitis. BACK: No midline tenderness, no CVA tenderness EXTREMITIES: Pain with range of motion in right hip; vague tenderness over right hip; no cyanosis, no edema. NEUROLOGIC: Alert and oriented, no acute motor or sensory deficits, no focal weakness, cranial nerves grossly intact. SKIN: No rash, no jaundice, no diaphoresis. Medical Decision & Procedures ER Provider Diagnostic Interpretation: X ray results are stated below per my interpretation and the radiologist's interpretation. SINGLE VIEW PELVIS; 2 VIEWS RIGHT HIP FINDINGS: An AP view of the pelvis with AP and frog-leg views of the right hip are correlated with abdominal radiograph dated 11/18/2016. The skeletal structures appear osteopenic. Extensive chronic posttraumatic deformity of the bony pelvis with postoperative change from buttress plate fixation of the right ileum as well as lumbar fusion with spinal rods and sacral bolts is unchanged from previous. No acute fracture is identified. Mild degenerative joint space narrowing is present in the hips, right slightly greater than left. The overlying soft tissues are within normal limits. Phlebolith are noted in the pelvis. There is a nonobstructed abdominal bowel gas pattern noting severe constipation. IMPRESSION: 1. No acute bony abnormality is seen in the hips or pelvis. 2. Posttraumatic and postoperative changes as above. This is similar previous. 3. Marked constipation. Electronically signed by: Jeffry Colunga M.D. 12/02/2016 8:12 PM Dictated Date/Time: 12/02/2016 8:10 PM Medications Administered Medications (Trade) Dose Ordered Sig/Jennifer Route Start Time Stop Time Status Last Admin Dose Admin Acetaminophen/ Hydrocodone Bitart ([place] 5/325 Tab) 2 tab NOW STAT PO 12/02/16 19:26 12/02/16 19:27 DC 12/02/16 19:51 2 TAB Promethazine HCl (Phenergan Tab) 25 mg NOW ONCE PO 12/02/16 19:30 12/02/16 19:31 DC 12/02/16 19:50 25 MG Acetaminophen/ Hydrocodone Bitart ([place] 5/325mg Home Pack) 1 homepack UD ONCE PO 12/02/16 20:45 12/02/16 20:46 DC 12/02/16 21:10 1 HOMEPACK Promethazine HCl (Phenergan 25MG Home Pack) 1 homepack UD ONCE PO 12/02/16 20:45 12/02/16 20:46 DC 12/02/16 21:10 1 HOMEPACK ED Course 1918: The patient was evaluated in room B2. A complete history and physical exam was performed. 1925: Ordered Acetaminophen/Hydrocodone Bitart 2 tab PO. 1929: Ordered Phenergan Tab 25 mg PO. 2031: I reassessed the patient. She is feeling better and would like to see how she does the next couple of days at home. 2044: Ordered Promethazine HCl 1 homepack PO, and Acetaminophen/Hydrocodone Bitart 1 homepack PO. 2049: Reevaluated the patient. Discussed results and discharge instructions: She verbalized understanding and agreement. The patient is ready for discharge. Medical Decision Differential: Fracture, Dislocation, Arthritis, Cellulitis, Septic Joint, Ligamentous Injury, Effusion, DVT, amongst other pathologies entertained, and sciatica. 56 yr old female with chronic pain who periodically has flares, in this case in area of low back and right hip, places where extensive surgery done in past. No neuro deficits and exam is pretty benign. Vascular intact. Imaging unremarkable for any acute process. No fevers, chills, no erythema. Seems unlikely septic in nature. May have mild sciatica element, but just finished round of prednisone and would prefer to avoid further steroids at this time. No evidence of DVT by examination. Likely inflammed secondary to arthritis and possibly from just coming off steroids. Discussed further work-up/rehab though she would like to see how symptoms do over next few days at home with nausea/ pain medications. She is aware of constipation seen on xray though she denies any constipation issues. Impression Primary Impression: Right hip pain Scribe Attestation The scribe's documentation has been prepared under my direction and personally reviewed by me in its entirety. I confirm that the note above accurately reflects all work, treatment, procedures, and medical decision making performed by me. Departure Information Dispostion Home / Self-Care Prescriptions Promethazine Hcl (Phenergan) 25 Mg Tab 25 MG PO Q4H Y for Nausea, #15 TAB Prov: Mahad Puentes M.D. 12/02/16 Hydrocodone/Acetaminophen 5MG/325MG ([place] 5MG/325MG) Tab 1-2 TAB PO Q6H Y for Pain, #12 TAB PRN PAIN Prov: Mahad Puentes M.D. 12/02/16 Referrals Jerome Murillo M.D. (PCP) Patient Instructions ED Back Pain Acute Chronic, My [facility] Additional Instructions You have received a narcotic pain medication prescription. These medications may cause drowsiness and should not be used with other sedative medications. Do not drive, drink alcohol, perform dangerous activities, nor make important decisions after taking these medications. jail use or inappropriate use may lead to addiction.
[2016-12-02] MEDS ORDERED: PROMETHAZINE HCL 25 MG TAB PO ONE (19:30)
--- NOTE | 2016-12-02 20:14 | DIAGNOSTIC IMAGING REPORT ---
SINGLE VIEW PELVIS; 2 VIEWS RIGHT HIP CLINICAL HISTORY: Right hip pain. FINDINGS: An AP view of the pelvis with AP and frog-leg views of the right hip are correlated with abdominal radiograph dated 11/18/2016. The skeletal structures appear osteopenic. Extensive chronic posttraumatic deformity of the bony pelvis with postoperative change from buttress plate fixation of the right ileum as well as lumbar fusion with spinal rods and sacral bolts is unchanged from previous. No acute fracture is identified. Mild degenerative joint space narrowing is present in the hips, right slightly greater than left. The overlying soft tissues are within normal limits. Phlebolith are noted in the pelvis. There is a nonobstructed abdominal bowel gas pattern noting severe constipation. IMPRESSION: 1. No acute bony abnormality is seen in the hips or pelvis. 2. Posttraumatic and postoperative changes as above. This is similar previous. 3. Marked constipation. Electronically signed by: Jeffry Colunga M.D. 12/02/2016 8:12 PM Dictated Date/Time: 12/02/2016 8:10 PM
[2016-12-02] MEDS ORDERED: HYDR-5688 PO (20:35)
[2016-12-02] MEDS ORDERED: PROM25TA9 PO (20:35)
[2016-12-02] MEDS ORDERED: PHENERGAN 25MG HOMEPACK PO ONE (20:45)
[2016-12-02] MEDS ORDERED: NORCO 5/325MG HOME PACK PO ONE (20:45)
[2016-12-02 21:07] VITALS: BP 139/94; PULSE 75; O2SAT 98
[2016-12-02] MEDS ORDERED: TOPI100T45 PO (21:51)
[2016-12-02] MEDS ORDERED: VENL150C PO (22:53)
[2016-12-02] MEDS ORDERED: LAMO25TA PO (22:53)
[2016-12-02] MEDS ORDERED: BRVIN INH (22:53)
[2016-12-02] MEDS ORDERED: POLY335019 PO (22:53)
[2016-12-02] MEDS ORDERED: VENL75CA PO (22:53)
[2016-12-02] MEDS ORDERED: ARIP30TA3 PO (22:57)
[2016-12-02] MEDS ORDERED: CETI10TA84 PO (23:57)
[2016-12-08] MEDS ORDERED: FENT25DI10 TD (13:21)
[2016-12-08] MEDS ORDERED: LVQ750 PO (13:21)
[2016-12-08] MEDS ORDERED: VTMD PO (13:21)
[2017-01-07] MEDS ORDERED: MONT1TAB5 PO (11:19)
[2017-01-12] MEDS ORDERED: FENT25DI10 TD (13:23)
[2017-01-12] MEDS ORDERED: HYDR-5688 PO (13:23)
[2017-01-12] MEDS ORDERED: ATV/1 PO (13:23)
[2017-01-12] MEDS ORDERED: DOCU-94 PO (15:05)
[2017-02-10] MEDS ORDERED: DEXL60CA4 PO (09:36)
[2017-02-10] MEDS ORDERED: VENL150C56 PO (09:36)
[2017-02-10] MEDS ORDERED: CHOL1TAB63 PO (09:36)
[2017-02-10] MEDS ORDERED: ALUMCHW2 PO (09:36)
[2017-02-10] MEDS ORDERED: LAMO100T16 PO (09:36)
[2017-02-10] MEDS ORDERED: CYCL5TAB PO ×2 (09:36)
[2017-02-10] MEDS ORDERED: FENT25DI10 EXT (09:36)
[2017-02-10] MEDS ORDERED: CLN150 PO (09:36)
[2017-02-10] MEDS ORDERED: METO25TA3 PO (09:36)
[2017-02-10] MEDS ORDERED: BUSP-8 PO (09:36)
[2017-02-10] MEDS ORDERED: FLUT0.15 NAE (09:36)
[2017-02-10] MEDS ORDERED: MULT-506 PO (09:36)
[2017-02-10] MEDS ORDERED: MIRA1TAB3 PO (09:36)
[2017-02-10] MEDS ORDERED: CETI10TA84 PO (09:36)
[2017-02-10] MEDS ORDERED: TOPI100T20 PO (09:36)
[2017-02-10] MEDS ORDERED: MONT1TAB3 PO (09:36)
[2017-02-10] MEDS ORDERED: RANI300T2 PO (09:36)
[2017-02-10] MEDS ORDERED: EFF75 PO (09:36)
[2017-02-10] MEDS ORDERED: METO1TAB54 PO (09:36)
[2017-02-10] MEDS ORDERED: FURO-85 PO (09:36)
[2017-02-10] MEDS ORDERED: FERR325T PO (09:36)
[2017-02-10] MEDS ORDERED: ATV/2 PO (09:36)
[2017-02-10] MEDS ORDERED: ZOLP10TA PO (09:36)
[2017-02-10] MEDS ORDERED: POLY335019 PO (09:36)
[2017-02-10] MEDS ORDERED: ONDA8TAB6 PO (09:36)
[2017-02-10] MEDS ORDERED: FOLI1TAB7 PO (09:36)
[2017-02-10] MEDS ORDERED: CALC500C70 PO (09:36)
[2017-02-10] MEDS ORDERED: BISA10SU3 PR (09:36)
[2017-02-10] MEDS ORDERED: NYSTATIN POWDER EXT (09:36)
[2017-02-10] MEDS ORDERED: LAMO25TA PO (09:36)
[2017-02-10] MEDS ORDERED: ARIP30TA3 PO (09:36)
[2017-03-27] MEDS ORDERED: [UNRECOGNIZED DRUG - CODE] RE (09:37)
[2017-03-27] MEDS ORDERED: AZEL30SP NAE (09:37)
[2017-03-27] MEDS ORDERED: POTA10CA28 PO (09:37)
[2017-03-27] MEDS ORDERED: POLY335019 PO (09:37)
[2017-03-27] MEDS ORDERED: LAMO150T32 PO (09:37)
[2017-03-27] MEDS ORDERED: AMOX875T PO (09:37)
[2017-03-27] MEDS ORDERED: BACL10TA PO (09:37)
[2017-04-12] MEDS ORDERED: ASPEC325 PO (08:28)
[2017-04-12] MEDS ORDERED: HYDR-5688 PO (08:28)
[2017-04-21] MEDS ORDERED: CALC200T (15:05)
[2017-06-22] MEDS ORDERED: DIVA500T59 PO (07:45)
[2017-07-27] MEDS ORDERED: CYCL10TA6 PO (08:01)
== END 2016-12-02 21:27 | disposition home or self-care (01) ==
LOC: C.EDB 18:08
DX: M25.551 Pain in right hip (principal); K21.9 Gastro-esophageal reflux disease without esophagitis; F31.9 Bipolar disorder, unspecified; F41.9 Anxiety disorder, unspecified; B19.20 Unspecified viral hepatitis C without hepatic coma; F32.9 Major depressive disorder, single episode, unspecified; K31.84 Gastroparesis; M81.0 Age-related osteoporosis without current pathological fracture; J44.9 Chronic obstructive pulmonary disease, unspecified; F17.200 Nicotine dependence, unspecified, uncomplicated; Z87.820 Personal history of traumatic brain injury; Z98.1 Arthrodesis status; Z98.51 Tubal ligation status; Z98.890 Other specified postprocedural states; Z87.81 Personal history of (healed) traumatic fracture; Z79.899 Other long term (current) drug therapy; Z88.8 Allergy status to other drugs, medicaments and biological substances; Z83.3 Family history of diabetes mellitus; Z83.79 Family history of other diseases of the digestive system; Z82.49 Family history of ischemic heart disease and other diseases of the circulatory system; Z84.1 Family history of disorders of kidney and ureter

== ENCOUNTER 2016-12-05 03:40 | Inpatient (IN) | payer OTHER ==
[2016-12-05] VITALS (8 sets, daily range): BP systolic 112–124; BP diastolic 70–80; PULSE 67–86; TEMP 36.3–37; O2SAT 93–99; Ht 160 cm; Wt 68.5 kg
[~2016-12-05] VITALS: Ht 160 cm; Wt 68.5 kg
[~2016-12-05 03:40] MED LIST changes: +ACET1TAB84 PO; +ARIP30TA3 PO; +BRVIN INH; +CETI10TA84 PO; +HYDR-5688 PO; +LAMO25TA PO; -METO1TAB54 PO; -ONDA4TAB46 PO; +ONDA4TAB46 SL; +POLY335019 PO; +PROM25TA9 PO; +RGL/5 PO; +TOPI100T45 PO; +VENL150C PO; +VENL75CA PO; +VNTHFA/IN INH; +ZOLP10TA6 PO; -ZTHM250 PO
[2016-12-05] MEDS ORDERED: ONDANSETRON INJ 2 MG/ML 2 ML VIAL IV STA (03:46)
[2016-12-05] MEDS ORDERED: SODIUM CHLORIDE 0.9% 1000ML 1,000 ML IV STA (03:46)
--- NOTE | 2016-12-05 04:06 | EMERGENCY ROOM VISIT NOTE ---
History Report prepared by Tonya: Wendy Britt Under the Supervision of: Dr. Thor Knight D.O. First contact with patient: 03:39 Chief Complaint: LEG PAIN,LEG INJURY Stated Complaint: LEG PAIN History of Present Illness The patient is a 56 year old female who presents to the Emergency Room with complaints of worsening right hip pain for the past 3 days. Her pain started suddenly 3 days ago when she woke up and was getting out of bed. She was evaluated in the ED that day and discharged home. She followed up with her PCP in the office. The patient states that her pain has just continued to worsen. She rates her current pain as a 10/10 in severity. Her pain is most in her right hip but radiates into her lower back. Movement exacerbates her pain. She is nauseated secondary to pain. The patient has been taking Vicodin and an anti- emetic for her symptoms. Tonight she was unable to ambulate or bear weight on her right leg. She was brought to the ED by ambulance for further evaluation. She reports that she recently finished taking prednisone. Source of History: patient Onset: 3 days ago Position: other (right hip) Symptom Intensity: 10/10 Quality: other (radiating) Timing: worsening Modifying Factors (Worsening): movement, other (ambulation) Modifying Factors (Relieving): narcotics Associated Symptoms: + nausea Review of Systems See HPI for pertinent positives & negatives. A total of 10 systems reviewed and were otherwise negative. Past Medical & Surgical Medical Problems: (1) Anxiety (2) Bipolar disorder (3) Bipolar Disorder, Unspecified (4) Cervicalgia (5) Chronic alcoholism in remission (6) Chronic back pain (7) Chronic headache (8) Chronic hepatitis C (9) Chronic obstructive lung disease (10) Chronic urinary urge incontinence (11) Closed head injury (12) Depression (13) Gastroesophageal reflux disease (14) Gastroparesis (15) Hip fracture (16) History of aspiration pneumonia (17) History of Clostridium difficile colitis (18) History of drug abuse (19) History of sepsis (20) History of supraventricular tachycardia (21) Lumbago (22) Osteoarthritis (23) Osteoporosis (24) Pancreatitis (25) PTSD (post-traumatic stress disorder) (26) Ulnar neuropathy Surgical Problems: (1) Bladder Repair (2) H/O colonoscopy (3) H/O cystoscopy (4) H/O esophagogastroduodenoscopy (5) H/O sinus surgery (6) History of hip surgery (7) Right Tibia/Fibula Repair (8) S/P cervical spinal fusion (9) s/p colonoscopy (10) s/p cystoscopy (11) s/p EGD (12) S/p esophagogastric fundoplasty (13) s/p laparoscopic fundoplication hiatal hernia (14) S/p lumbar decompression/fusion (15) s/p reconstruction hip socket (16) s/p tonsillectomy (17) S/P tonsillectomy and adenoidectomy (18) s/p tubal ligation (19) S/P tubal ligation Family History Diabetes mellitus FATHER GRANDMOTHER FH: colon cancer GRANDMOTHER Gallbladder disease Heart disease Hypertension FATHER MOTHER Kidney disease Kidney stones Social History Smoking Status: Current Some Day Smoker Alcohol Use: none Drug Use: other Marital Status: Housing Status: lives with family Occupation Status: disabled Current/Historical Medications Scheduled Albuterol Sulfate (Proair Respiclick), 1 PUFF INH TID Aripiprazole (Abilify), 30 MG PO HS Azelastine Hcl (Astelin Nasal [place]), 2 SPRAYS NA TID Baclofen (Lioresal), 10 MG PO TID Buspirone Hcl (Buspar), 15 MG PO BID Cetirizine (Zyrtec), 10 MG PO DAILY Dexlansoprazole (Dexilant), 60 MG PO DAILY Fentanyl (Duragesic), 25 MCG TD Q72H Ferrous Sulfate (Ferrous Sulfate), 325 MG PO QAM Fluticasone Propionate (Nasal) (Flonase Allergy Relief), 2 SPRAYS [place]IE BID Folic Acid (Folvite), 1 MG PO QAM Lamotrigine (Lamictal), 25 MG PO BID Lamotrigine (Lamictal), 100 MG PO BID Lorazepam (Ativan), 2 MG PO BID Metoclopramide HCl (Metoclopramide HCl), 5 MG PO ACHS Metoprolol Succinate (Toprol Xl), 25 MG PO DAILY Mirabegron (Myrbetriq Er), 50 MG PO QAM Multiple Vitamins W/ Minerals (Centrum Adults), 1 TAB PO QAM Ranitidine (Zantac), 300 MG PO QAM Sulindac (Clinoril), 150 MG PO BID Topiramate (Topamax), 100 MG PO BID Venlafaxine Hcl (Effexor Xr), 75 MG PO DAILY@ NOON Venlafaxine Hcl (Effexor Xr), 300 MG PO QAM Zolpidem Tartrate (Zolpidem Tartrate), 10 MG PO HS Scheduled PRN Acetaminophen (Tylenol Arthritis Ext Rel), 650 MG PO Q8H PRN for Pain Albuterol Hfa (Ventolin Hfa), 2 PUFFS INH QID PRN for SOB/Wheezing Amlodipine (Norvasc), 2.5 MG PO DAILY PRN for HTN Arformoterol Tartrate (Brovana), 15 MCG INH BID PRN for SOB/Wheezing Docusate Sodium (Docusate Sodium), 100 MG PO BID PRN for Constipation Famciclovir (Famvir), 1,000 MG PO BID PRN for BREAKOUTS Furosemide (Lasix), 20 MG PO DAILY PRN for SWELLING/WEIGHT GAIN Mupirocin (Bactroban 2% Oint), 1 APPLN EXT TID PRN for DRYNESS Ondansetron Hcl (Zofran), 4 MG SL Q8 PRN for Nausea Polyethylene Glycol 3350 (Miralax), 17 GM PO DAILY PRN for Constipation Allergies Coded Allergies: Hydroxyzine (Verified Allergy, Severe, THROAT CONSTRICTS/CAN NOT VOID, ) Clarithromycin (Verified Adverse Reaction, Intermediate, vomiting, 12/05/16 ) Chlorpromazine (Verified Adverse Reaction, Unknown, LIGHTHEADED DIZZY, ) Lisinopril (Verified Adverse Reaction, Unknown, Cough, 12/05/16) Reported by PT. Physical Exam Vital Signs Date Time Temp Pulse Resp B/P Pulse Ox O2 Delivery O2 Flow Rate FiO2 12/05/16 05:14 77 16 114/72 95 Room Air 12/05/16 04:55 77 16 110/58 96 Room Air 12/05/16 04:36 75 12/05/16 03:49 36.7 84 16 123/80 97 Room Air Physical Exam GENERAL: Patient is awake, alert, appears to be uncomfortable and in significant pain. EYES: The conjunctivae are clear. The pupils are round and reactive. EARS, NOSE, MOUTH AND THROAT: The nose is without any evidence of any deformity. Mucous membranes are moist tongue is midline NECK: The neck is nontender and supple. RESPIRATORY: Normal respiratory effort is noted there is no evidence of wheezing rhonchi or rales CARDIOVASCULAR: Regular rate and rhythm noted there no murmurs rubs or gallops normal S1 normal S2 GASTROINTESTINAL: The abdomen is soft. Bowel sounds are present in all quadrants. Abdomen is nontender BACK: No midline tenderness or or step-off noted range of motion in flexion extension as well as rotation no signs of muscle spasm noted MUSCULOSKELETAL/EXTREMITIES: There was significant pain with ROM of the right hip, there was no deformity or shortening. SKIN: There is no obvious evidence of any rash. There are no petechiae, pallor or cyanosis noted. Trace pedal edema bilaterally, skin was cool and dry, pulses were symmetric in both lower extremities, no calf tenderness was elicited. NEUROLOGIC: Patient is awake alert and oriented x3 Medical Decision & Procedures ER Provider Diagnostic Interpretation: Radiology results as stated below per my review and radiologist interpretation: CT RIGHT HIP: Nondisplaced transcervical neck fracture of the right femur. The humeral head remains articulating with the acetabulum. Plate and screws are noted within the right iliac bone suggesting remote fracture. Radiologist: Lexx Grant MD Laboratory Results 12/05/16 04:10 Red Blood Count 4.04, Mean Corpuscular Volume 93.6, Mean Corpuscular Hemoglobin 30.4, Mean Corpuscular Hemoglobin Concent 32.5, Mean Platelet Volume 8.7, Neutrophils (%) (Auto) 44.3, Lymphocytes (%) (Auto) 41.7, Monocytes (%) (Auto) 11.3, Eosinophils (%) (Auto) 0.6, Basophils (%) (Auto) 0.4, Neutrophils # (Auto ) 4.28, Lymphocytes # (Auto) 4.02, Monocytes # (Auto) 1.09, Eosinophils # (Auto ) 0.06, Basophils # (Auto) 0.04 12/05/16 04:10 Test 12/05/16 04:10 White Blood Count 9.65 K/uL (4.8-10.8) Red Blood Count 4.04 M/uL (4.2-5.4) Hemoglobin 12.3 g/dL (12.0-16.0) Hematocrit 37.8 % (37-47) Mean Corpuscular Volume 93.6 fL (80-100) Mean Corpuscular Hemoglobin 30.4 pg (25-34) Mean Corpuscular Hemoglobin Concent 32.5 g/dl (32-36) Platelet Count 395 K/uL (130-400) Mean Platelet Volume 8.7 fL (7.4-10.4) Neutrophils (%) (Auto) 44.3 % Lymphocytes (%) (Auto) 41.7 % Monocytes (%) (Auto) 11.3 % Eosinophils (%) (Auto) 0.6 % Basophils (%) (Auto) 0.4 % Neutrophils # (Auto) 4.28 K/uL (1.4-6.5) Lymphocytes # (Auto) 4.02 K/uL (1.2-3.4) Monocytes # (Auto) 1.09 K/uL (0.11-0.59) Eosinophils # (Auto) 0.06 K/uL (0-0.5) Basophils # (Auto) 0.04 K/uL (0-0.2) RDW Standard Deviation 53.2 fL (36.4-46.3) RDW Coefficient of Variation 15.5 % (11.5-14.5) Immature Granulocyte % (Auto) 1.7 % Immature Granulocyte # (Auto) 0.16 K/uL (0.00-0.02) Prothrombin Time 10.2 SECONDS (9.0-12.0) Prothromb Time International Ratio 1.0 (0.9-1.1) Activated Partial Thromboplast Time 25.4 SECONDS (21.0-31.0) Partial Thromboplastin Ratio 1.0 Anion Gap 8.0 mmol/L (3-11) Est Creatinine Clear Calc Drug Dose 72.9 ml/min Estimated GFR () 95.5 Estimated GFR (Non- 82.4 BUN/Creatinine Ratio 16.1 (10-20) Calcium Level 8.9 mg/dl (8.5-10.1) Magnesium Level 2.8 mg/dl (1.8-2.4) Total Bilirubin 0.3 mg/dl (0.2-1) Direct Bilirubin < 0.1 mg/dl (0-0.2) Aspartate Amino Transf (AST/SGOT) 10 U/L (15-37) Alanine Aminotransferase (ALT/SGPT) 20 U/L (12-78) Alkaline Phosphatase 59 U/L (45-117) Total Protein 7.3 gm/dl (6.4-8.2) Albumin 3.8 gm/dl (3.4-5.0) Laboratory results per my review. Medications Administered Medications (Trade) Dose Ordered Sig/Jennifer Route Start Time Stop Time Status Last Admin Dose Admin Sodium Chloride (Nss 1000ml) 1,000 ml @ 125 mls/hr Q8H STAT IV 12/05/16 03:46 12/05/16 11:45 12/05/16 04:53 125 MLS/HR Morphine Sulfate (MoRPHine SULFATE INJ) 4 mg Q15M PRN IV 12/05/16 04:00 12/19/16 03:59 12/05/16 04:55 4 MG Ondansetron HCl (Zofran Inj) 4 mg NOW STAT IV 12/05/16 03:46 12/05/16 03:48 DC 12/05/16 04:11 4 MG Hydromorphone HCl (Dilaudid Inj) 1 mg NOW STAT IV 12/05/16 05:03 12/05/16 05:04 DC 12/05/16 05:12 1 MG ED Course 0339: The patient was evaluated in room B5. A complete history and physical examination were performed. 0346: Zofran 4 mg IV, NSS 1000 ml @ 125 mls/hr IV 0400: Morphine sulfate 4 mg IV PRN 0501: I updated the patient on her radiology results. She requested [facility]. 0503: Dilaudid 1 mg IV 0514: At this time I spoke with Dr. Holden, the orthopedist travel consultant. We discussed the patient's results and treatment plan. He recommended keeping the patient NPO and admitting to medicine. He will inform Dr. Hammond of the patient' s case. 0527: Potassium Chloride 20 meq PO 0538: I spoke with Dr. Hall. We discussed the patients results and treatment plan. [facility]. 0541: I reassessed the patient at this time. She is feeling better and resting comfortably. I discussed the results and treatment plan with the patient. I answered all pertaining questions that she had. She expressed understanding and verbalized agreement. Medical Decision Differential diagnosis: Etiologies such as fracture, dislocation, neurovascular compromise, compartment syndrome, soft tissue injury, as well as others were entertained. Nursing notes reviewed. Patient's previous electronic medical records reviewed. The patient is a 56-year-old female who presented to the emergency department with severe right hip pain. The patient states she noticed hip pain recently she was seen in our facility for similar complaints. At that time she had x- rays which did not reveal any acute bony abnormality. She was able to ambulate at that time but states over the last 24 hours she has had severe pain and inability to ambulate. She relates a fall but states it was a few weeks ago and that she didn't feel that she hurt her hip that badly. The patient's plain x- rays were reviewed from the other day. A CT was obtained which did show a subcapital fracture. I discussed his case with the on-call orthopedic physician. The patient requested that I discussed the case with Dr. Hammond so I discussed the case with the on-call physician at this time. I also discussed his case with the on-call [facility] hospitalist group. They've agreed to evaluate the patient in the emergency department for possible medical clearance. I discussed the patient's laboratory and radiographic studies with her. She was treated with IV pain medication in the emergency department and on subsequent reevaluation was feeling much better. Consults Time Called: [phone] Consulting Physician: Dr. Holden Returned Call: [phone] At this time I spoke with Dr. Holden, the orthopedist travel consultant. We discussed the patient's results and treatment plan. He recommended keeping the patient NPO and admitting to medicine. He will inform Dr. Hammond of the patient's case. Additional Consults: Time Called: 05 Consulted Physician: Dr. Hall Returned Call: [phone] Additional Comments: I spoke with Dr. Hall. We discussed the patients results and treatment plan. [facility]. Impression Primary Impression: Subcapital fracture of right hip Scribe Attestation The scribe's documentation has been prepared under my direction and personally reviewed by me in its entirety. I confirm that the note above accurately reflects all work, treatment, procedures, and medical decision making performed by me. Departure Information Dispostion Being Evaluated By Hospitalist Referrals Jerome Murillo M.D. (PCP) Patient Instructions My [facility] Problem Qualifiers Primary Impression: Subcapital fracture of right hip Encounter type: initial encounter Fracture type: closed Qualified Codes: S72.011A - Unspecified intracapsular fracture of right femur, initial encounter for closed fracture
[2016-12-05] MEDS: MoRPHine SULFATE 4 MG/ML 1 ML CARP\\VIAL IV PRN ×2 (04:12→04:55)
[2016-12-05 04:29] LABS: BASO % 0.4 %; BASO ABS # 0.04 K/uL (0-0.2); COMPLETE YES; EOS % 0.6 %; HEMATOCRIT 37.8 % (37-47); IG% 1.7 %; LYMPH % 41.7 %; LYMPH ABS # 4.02 K/uL (1.2-3.4); MEAN CELL VOLUME 93.6 fL (80-100); MEAN CORPUSCULAR HEMOGLOBIN 30.4 pg (25-34); MEAN CORPUSCULAR HGB CONC 32.5 g/dl (32-36); MEAN PLATELET VOLUME 8.7 fL (7.4-10.4); MONO % 11.3 %; NEUT % 44.3 %; PLATELET COUNT 395 K/uL (130-400); RED BLOOD COUNT 4.04 M/uL (4.2-5.4); WHITE BLOOD COUNT 9.65 K/uL (4.8-10.8)
[2016-12-05 04:45] LABS: PROTHROMBIN TIME (PATIENT) 10.2 SECONDS (9.0-12.0)
[2016-12-05 04:46] LABS: ALT/SGPT 20 U/L (12-78); AST/SGOT 10 U/L (15-37); BLOOD UREA NITROGEN 13 mg/dl (7-18); BUN/CREATININE RATIO 16.1 (10-20); CALCIUM 8.9 mg/dl (8.5-10.1); CARBON DIOXIDE 25 mmol/L (21-32); CHLORIDE 108 mmol/L (98-107); GLUCOSE 102 mg/dl (70-99); POTASSIUM 3.4 mmol/L (3.5-5.1); SODIUM 141 mmol/L (136-145)
[2016-12-05 04:49] LABS: ALKALINE PHOSPHATASE 59 U/L (45-117)
[2016-12-05] MEDS ORDERED: HYDROmorphone INJ 1 MG/ML SYR IV STA (05:03)
[2016-12-05] MEDS ORDERED: POTASSIUM CHLORIDE 10 MEQ TABCR PO STA (05:27)
[2016-12-05] MEDS ORDERED: ARFO15NE INH (05:34)
[2016-12-05] MEDS ORDERED: BCTROWC EXT (05:36)
[2016-12-05] MEDS ORDERED: KETOROLAC TROMETHAMINE 30 MG/ML VIAL IV STA (06:02)
[2016-12-05] MEDS ORDERED: ALBUT/IPRATROP 3MG/0.5MG NEB 3 ML VIAL INH STA (06:02)
[2016-12-05 06:04] LABS: MAGNESIUM 2.8 mg/dl (1.8-2.4)
[2016-12-05] MEDS ORDERED: MoRPHine SULFATE 4 MG/ML 1 ML CARP\\VIAL IV PRN (06:15)
[2016-12-05] MEDS ORDERED: DOCUSATE SODIUM 100 MG CAP PO PRN (06:15)
[2016-12-05] MEDS ORDERED: ALBUT/IPRATROP 3MG/0.5MG NEB 3 ML VIAL INH PRN ×2 (06:15)
[2016-12-05] MEDS ORDERED: ACETAMINOPHEN 325 MG TAB PO PRN (06:15)
[2016-12-05] MEDS ORDERED: POLYETHYLENE (MIRALAX) 17 GM PACK PO PRN (06:15)
[2016-12-05] MEDS ORDERED: LORAZEPAM 2 MG/ML 1 ML VIAL IV PRN (06:15)
[2016-12-05] MEDS ORDERED: AMLODIPINE BESYLATE 5 MG TAB PO PRN (06:15)
[2016-12-05] MEDS ORDERED: LEVAQUIN 750MG / 150ML D5W IV ONE (06:45)
[2016-12-05] MEDS ORDERED: LEVOFLOXACIN 750MG / D5W IV ONE (07:00)
--- NOTE | 2016-12-05 07:17 | HISTORY & PHYSICAL EXAMINATION ---
DATE OF ADMISSION: 12/05/2016 PRIMARY CARE DOCTOR: Dr. Murillo. Hx obtained from px and records. History obtained for patient and patient's records. CHIEF COMPLAINT: Right hip pain. HISTORY OF PRESENT ILLNESS: Medical history significant for hypertension, SVT sp ablation, COPD, ongoing tobacco abuse. GERD, gastroparesis, chronic pain on narcotics, mood disorder, chronic HCV sp tx, past alcohol abuse, history of MRSA, history of C. dif Recent elective confinement at [facility] last January 2016 for SVT sp ablation. A month or two ago the patient had a fall after slipping on the ice, landing on her bottom. No concerning pain at that time. Three days' hx achy R hip pain, worse with moving around. No chest pain, no sob, no fever, no chills. Seen at the Emergency Room. Plain x-ray did show postop changes and constipation. Patient sent home. Patient returned to theEmergency Room because of intractable R hip pain. MEDICAL HISTORY: As above. Patient recently completed outpx doxycycline and prednisone treatment for bronchitis symptoms 3 days ago. Symptoms improved but the patient is still coughing green sputum. Last seen by her [id number] tank crewman (Dr. Irene) in the office last June 2016. At that time patient was complaining of some palpitations different from her SVT. Palpitations have since resolved. 2-D echo in March 2013 showed EF 64% diastolic dysfunction. SURGERIES: Bilateral tubal ligation, hip socket reconstruction, tonsillectomy, esophagogastric fundoplasty, sinus surgery, bowel surgery. HOME MEDICATIONS: Include Ventolin, Abilify, Astelin, Tylenol, ProAir, Norvasc, Brovana, BuSpar, baclofen, Zyrtec, Dexilant, Famvir, ferrous sulfate, folate, Lasix, fentanyl, Lasix p.r.n., Duragesic patch, Flonase, Ativan, Lamictal, Myrbetriq, Reglan, Topral XL, Centrum, Bactroban, Zofran, MiraLax, Zantac, Clinoril, Topamax, Effexor, zolpidem. ALLERGIES: CHLORPROETHAZINE, LISINOPRIL, CLARITHROMYCIN. FAMILY HISTORY: Hypertension, heart disease. PERSONAL AND SOCIAL HISTORY: Down to 1 cigarette a day, past alcohol abuse, disabled. REVIEW OF SYSTEMS: As per HPI, all other ROS negative. PHYSICAL EXAMINATION: VITAL SIGNS: Blood pressure was noted to be 116/76, pulse rate 84, RR 26, sats 95 on room air. GENERAL: Noted to be slightly uncomfortable, no respiratory distress. Looks older than stated age. SKIN: normal color HEENT: [place] palp conjunctivae. Dry mucosa. NECK: No JVD. Supple. CHEST: Occasional wheeze, especially left. HEART: RRR. ABDOMEN: Soft EXT : tenderness right hip. NEUROLOGIC: No gross focality. LABS: Hemoglobin was noted to be 12.3, hematocrit 37.8, white blood cell count 7.6, platelets 395. Sodium 140, potassium 3.4, chloride 108, CO2 of 25, BUN 30, creatinine 0.8, glucose was noted to be 102. CT of the pelvis, hip, initial read showed nondisplaced transcervical neck fracture, right femur, remote fracture right iliac bone. EKG normal sinus rhythm, negative ischemia. ASSESSMENT: 1. Right hip pain nondisplaced right femoral neck fracture on initial CT read 2. recent bronchitis episode sp tx persistent cough sx although improved history of chronic obstructive pulmonary disease ongoing tobacco abuse 3. hypertension, stable 4. hx PSVT sp ablation px NSR stable cardiac dse 5. chronic pain on narcotics 6. mood disorder, stable. 7. hx HCV sp tx 8. hx MRSA 9. hypokalemia PLAN: F ff official CT hip result Orthopedics consult. RE R hip pain ER MD already in touch with Dr. Holden, orthopedic doctor construction millwright for Dr. Hammond. He requests patient be kept n.p.o. until seen by Dr. Hammond. Chest x-ray RE cough symptoms. If surgery recommended would recommend preop Pulmo eval prior to surgery to optimize lung function in light of recent bronchitis episode. (px well known to Dr. Contreras) replace K Patient counseled about smoking cessation. DVT prophylaxis with Lovenox subQ. Full code. ADDENDUM : CXR noted : poss infiltrate L initiate Levaquin MTDD
--- NOTE | 2016-12-05 07:20 | DIAGNOSTIC IMAGING REPORT ---
RIGHT HIP CT CT DOSE: 658.90 mGy.cm HISTORY: right hip pain Right TECHNIQUE: Multiaxial CT images of the right hip were performed and reformatted in the sagittal and coronal plane without the use of contrast. COMPARISON: Right hip 12/02/2016. FINDINGS: There is an acute nondisplaced right femoral neck fracture. Old posttraumatic and postoperative changes within the right hemipelvis. Posterior fusion hardware within the lumbar sacral region. No dislocation within the right hip. IMPRESSION: An acute nondisplaced transcervical fracture through the right femoral neck. No dislocation. Electronically signed by: Ricardo Anthony M.D. 12/05/2016 7:18 AM Dictated Date/Time: 12/05/2016 7:15 AM
[2016-12-05] MEDS: LACTATED RINGER'S 1000ML 1,000 ML IV SCH ×2 (07:48→23:21)
[2016-12-05] MEDS: METOCLOPRAMIDE HCL 5 MG TAB PO SCH ×4 (08:00→21:44)
--- NOTE | 2016-12-05 08:15 | DIAGNOSTIC IMAGING REPORT ---
CHEST ONE VIEW PORTABLE HISTORY: cough, wheeze COMPARISON: Chest 11/18/2016. FINDINGS: The heart is normal in size. Small hiatus hernia. The upper lungs and are clear. Old, healed right anterior rib fractures. Left basilar linear densities. No pleural effusions. No pneumothorax. Cervical spinal fusion hardware. IMPRESSION: Left basilar linear densities. This may represent atelectasis or pneumonia. Electronically signed by: Ricardo Anthony M.D. 12/05/2016 8:13 AM Dictated Date/Time: 12/05/2016 8:12 AM
--- NOTE | 2016-12-05 08:44 | DIAGNOSTIC IMAGING REPORT ---
RIGHT PELVIS/UNILATERAL HIP 2-3VIEWS CLINICAL HISTORY: Right Hip Fracture Right COMPARISON STUDY: Right hip CT 12/05/2016. FINDINGS: Redemonstration of the nondisplaced transcervical right femoral neck fracture. No dislocation. Old post traumatic changes within the right hemipelvis and left iliac wing. Posterior fusion hardware at the lumbar sacral spine. Old, healed left pubic ring fractures. IMPRESSION: Redemonstration of the nondisplaced transcervical right femoral neck fracture. Electronically signed by: Ricardo Anthony M.D. 12/05/2016 8:42 AM Dictated Date/Time: 12/05/2016 8:41 AM
[2016-12-05] MEDS: AZELASTINE HCL 30 ML INH SCH ×3 (10:06→21:41)
[2016-12-05] MEDS: LORAZEPAM 2 MG TAB PO SCH ×2 (10:06→21:43)
[2016-12-05] MEDS: BusPIRone 15 MG TAB PO SCH ×2 (10:07→21:44)
[2016-12-05] MEDS: FERROUS SULFATE 325 MG TAB PO SCH (10:08)
[2016-12-05] MEDS: VENLAFAXINE HCL XR 150 MG CAPXR PO SCH (10:08)
[2016-12-05] MEDS: BACLOFEN 10 MG TAB PO SCH ×3 (10:10→21:44)
[2016-12-05] MEDS: CEROVITE ADV FORMULA TAB PO SCH (10:10)
[2016-12-05] MEDS: MIRABEGRON ER 25 MG TAB PO SCH (10:10)
[2016-12-05] MEDS: TOPIRAMATE 100 MG TAB PO SCH ×2 (10:11→21:46)
[2016-12-05] MEDS: PANTOprazole SOD 40 MG TAB PO SCH (10:11)
[2016-12-05] MEDS: METOPROLOL SUCC 25MG EXT REL TAB PO SCH (10:13)
[2016-12-05] MEDS: CETIRIZINE HCL 10 MG TAB PO SCH (10:14)
[2016-12-05] MEDS: RANITIDINE HCL 150 MG TAB PO SCH (10:14)
[2016-12-05] MEDS: FLUTICASONE PROPIONATE NA SPR 16 GM BTL NAE SCH ×2 (10:16→21:42)
[2016-12-05] MEDS ORDERED: LEVOFLOXACIN 750 MG TAB PO SCH (11:00)
[2016-12-05] MEDS: VENLAFAXINE HCL XR 75 MG CAPXR PO SCH (12:00)
[2016-12-05] MEDS ORDERED: MIDAZOLAM HCL 1 MG/ML 2ML VIAL ONE (12:46)
[2016-12-05] MEDS ORDERED: PROPOFOL IV EMULSION 10 MG/ML 20 ML VIAL IV ONE (12:46)
[2016-12-05] MEDS ORDERED: FENTANYL CITRATE INJ 50 MCG/1 ML 2 ML VIAL ONE (12:46)
[2016-12-05] MEDS ORDERED: LIDOCAINE HCL 2% 2 ML VIAL (20MG/ML) ONE (12:46)
[2016-12-05] MEDS ORDERED: PHENYLEPHRINE HCL INJ 10 MG/ML VIAL ONE (12:50)
--- NOTE | 2016-12-05 12:53 | History & Physical Bridge Note ---
H&P Re-Evaluation Bridge Note: I have examined the patient, reviewed the History & Physical and in the interval since the performance of the History & Physical I have noted the following changes of clinical significance: No changes noted
[2016-12-05] MEDS ORDERED: SUCCINYLCHOLINE CHLORIDE 20 MG/ML 10 ML VIAL IV ONE (13:43)
[2016-12-05] MEDS ORDERED: NEOSTIGMINE METHYLSULFATE 5 MG/5 ML SYR ONE (13:43)
[2016-12-05] MEDS ORDERED: GLYCOPYRROLATE INJ 0.2 MG/ML VIAL ONE (13:43)
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
[2016-12-05] MEDS ORDERED: CEFAZOLIN SOD 1 GM VIAL ONE (13:50)
[2016-12-05] MEDS ORDERED: DEXAMETHASONE SOD INJ 4 MG/ML VIAL ONE (14:07)
[2016-12-05] MEDS ORDERED: ONDANSETRON INJ 2 MG/ML 2 ML VIAL ONE (14:07)
--- NOTE | 2016-12-05 14:29 | [facility] Post Operative Brief Note ---
Immediate Operative Summary Operative Date Dec 05, 2016. Pre-Operative Diagnosis Nondisplaced Right Femoral Neck Fracture Post-Operative Diagnosis Same as preoperative Procedure(s) Performed Open Reduction Internal Fixation Canunulated Screws, Right Hip Surgeon Dr. Florencio Ziegler Land Law Examiner Surgeon(s) Sharif Miller PA-C Estimated Blood Loss 25ml Findings as above Specimens None per surgeon Complication(s) None Disposition Recovery Room / PACU
[2016-12-05] MEDS ORDERED: HYDROmorphone INJ 2 MG/ML SYR/VIAL ONE (14:45)
--- NOTE | 2016-12-05 14:55 | DIAGNOSTIC IMAGING REPORT ---
RIGHT HIP OR FILMS CLINICAL HISTORY: RIGHT CANNULATED SCREWS Right COMPARISON STUDY: Right hip 12/05/2016. FLUOROSCOPY TIME: 1 minute and 28 seconds. FINDINGS: 5 fluoroscopic spot images of the right hip. There are 3 cannulated screws traversing the right femoral neck fracture. The hardware appears intact. There are cortical plates and screws at the right hemipelvis at the site of old fractures. IMPRESSION: Fluoroscopy provided for open reduction and internal fixation of a right femoral neck fracture. Electronically signed by: Ricardo Anthony M.D. 12/05/2016 2:53 PM Dictated Date/Time: 12/05/2016 2:52 PM
--- NOTE | 2016-12-05 14:55 | OPERATIVE REPORT ---
DATE OF OPERATION: 12/05/2016 PREOPERATIVE DIAGNOSIS: Nondisplaced right femoral neck fracture of the right hip. POSTOPERATIVE DIAGNOSIS: Same. PROCEDURE: Percutaneous screw fixation of the right hip. SURGEON: Dr. Florencio Ziegler. BOTTLING MACHINE OPERATOR: Sharif Miller PA-C, whose assistance was necessary for positioning of the leg and helping with instrumentation. ANESTHESIA: General. COMPLICATIONS: None. CONDITION: Stable to PACU. INDICATIONS: Jennifer is a very pleasant 56-year-old female who has an extensive medical history. She has extensive hardware in her spine and her pelvis including the anterior column of her pelvis. Unfortunately, 3 weeks ago she fell, her hip began hurting her and then it severely worsened over the last 24 hours. X-rays showed a nondisplaced femoral neck fracture. Discussions were made between total hip arthroplasty versus percutaneous screw fixation but given the hardware in her pelvis already we elected to do percutaneous screw fixation of her hip. OPERATION AND FINDINGS: FINDINGS: On 12/05/2016, she was brought down from the hospital room to the preoperative holding area, the operative extremity was identified and signed. She was given a preoperative antibiotic, taken back to the operating room, laid on the table in supine position and put under general anesthesia. The right leg was then brought out to mild traction on a fracture table. The right hip was then prepped and draped in sterile fashion. Time-out was done and the patient and operative extremity was properly identified. A small incision was made over the lateral femur. Dissection was taken down through the fascia right down to the lateral cortical bone. A guide pin was sent right along the inferior aspect of the calcar. An additional guide pin was then sent in the anterior superior margin and 1 in the posterior superior margin. This gave a nice inverted triangle. Screws were then measured and placed. I was able to get good bites with the posterior and inferior screws. The anterior screw I needed to use a washer. It did compress the fracture some. All screw lengths were checked under orthogonal fluoroscopic images. The wound was then irrigated and the pins were removed. The wound was then closed with 2-0 Vicryl and portia. She was then placed in a soft dressing, extubated and transferred to a hospital bed and taken to the postanesthesia care unit in stable condition. She tolerated the procedure well. I attest to the content of the Intraoperative Record and any orders documented therein. Any exceptio ns are noted below.
[2016-12-05] MEDS ORDERED: ONDANSETRON INJ 2 MG/ML 2 ML VIAL IV PRN (15:00)
[2016-12-05] MEDS ORDERED: EpHEDrine SULFATE INJ 50 MG/ML AMP IV PRN (15:00)
[2016-12-05] MEDS ORDERED: LABETALOL HCL IV 5 MG/ML 20ML IV PRN (15:00)
[2016-12-05] MEDS ORDERED: FLUMAZENIL 0.1 MG/1 ML 10 ML VIAL IV PRN (15:00)
[2016-12-05] MEDS ORDERED: ATROPINE SULFATE 0.1 MG/ML 5ML SYR IV PRN (15:00)
[2016-12-05] MEDS ORDERED: NALOXONE HCL 0.4 MG/1 ML VIAL/CARP IV PRN (15:00)
[2016-12-05] MEDS ORDERED: HYDROmorphone INJ 1 MG/ML SYR IV PRN (15:00)
--- NOTE | 2016-12-05 15:14 | DIAGNOSTIC IMAGING REPORT ---
RIGHT HIP 2 VIEWS HISTORY: Postop. s/p ORIF hip Right COMPARISON: Right hip 12/05/2016. FINDINGS: There are 3 cannulated screws traversing the right femoral neck fracture. The alignment appears near-anatomic. The hardware appears intact. There are skin portia along the lateral aspect of the right hip. Prior fixation of an old pelvic fracture with cortical plates and screws. Lumbar sacral fusion hardware is again noted. IMPRESSION: Status post open reduction and internal fixation of a right femoral neck fracture with 3 cannulated screws. The hardware appears intact. The alignment is near-anatomic. Electronically signed by: Ricardo Anthony M.D. 12/05/2016 3:12 PM Dictated Date/Time: 12/05/2016 3:10 PM
--- NOTE | 2016-12-05 16:02 | Anesthesiology Progress Note ---
Anesthesia Post Op Note Date & Time Dec 05, 2016 at 16:02 Vital Signs Pain Intensity: 5 Vital Signs Past 12 Hours Date Time Temp Pulse Resp B/P Pulse Ox O2 Delivery O2 Flow Rate FiO2 12/05/16 15:35 78 20 106/71 97 Nasal Cannula 2 12/05/16 15:25 36.7 73 12 121/70 95 Nasal Cannula 2 12/05/16 15:15 74 17 118/70 98 Nasal Cannula 2 12/05/16 15:05 71 20 148/80 99 Nasal Cannula 2 12/05/16 14:55 76 20 138/73 100 Mask 10 12/05/16 14:45 68 17 136/69 100 Mask 10 12/05/16 14:39 36.1 67 16 163/91 100 Mask 10 12/05/16 07:22 36.4 67 16 115/74 98 Room Air 12/05/16 06:48 37.0 71 14 114/76 98 Room Air 12/05/16 06:48 37.0 71 14 114/76 99 Room Air 12/05/16 06:27 36.7 73 16 117/75 96 12/05/16 06:25 73 16 117/75 96 Room Air 12/05/16 05:14 77 16 114/72 95 Room Air 12/05/16 04:55 77 16 110/58 96 Room Air 12/05/16 04:36 75 Notes Mental Status: alert / awake / arousable, participated in evaluation Pt Amnestic to Procedure: Yes Nausea / Vomiting: adequately controlled Pain: adequately controlled Airway Patency, RR, SpO2: stable & adequate BP & HR: stable & adequate Hydration State: stable & adequate Anesthetic Complications: no major complications apparent
[2016-12-05] MEDS: KETOROLAC TROMETHAMINE 30 MG/ML VIAL IV PRN (16:20)
[2016-12-05] MEDS: CHECK FENTANYL PATCH PLACEMENT SCH ×2 (16:25→23:21)
[2016-12-05] MEDS: ENOXAPARIN 40 MG/0.4 ML SYR SQ SCH (17:54)
--- NOTE | 2016-12-05 19:16 | Progress Note ---
Medicine Progress Note Date & Time of Visit: Dec 05, 2016 at 18:47. Subjective Pt was seen and examined Lying in bed with no distress Pt said that she is having a lot of pain She denies any chest pain, palpitation, dizziness and SOB Objective Last 8 Hrs Date Time Temp Pulse Resp B/P Pulse Ox O2 Delivery O2 Flow Rate FiO2 12/05/16 18:07 37.0 86 16 124/80 95 Room Air 12/05/16 17:03 36.6 85 16 120/77 98 Nasal Cannula 2.0 12/05/16 16:35 36.3 80 16 112/72 97 Room Air 12/05/16 16:06 36.6 76 14 112/70 95 Nasal Cannula 2.0 12/05/16 16:05 Nasal Cannula 2.0 12/05/16 16:05 Nasal Cannula 2.0 12/05/16 15:35 78 20 106/71 97 Nasal Cannula 2 12/05/16 15:25 36.7 73 12 121/70 95 Nasal Cannula 2 12/05/16 15:15 74 17 118/70 98 Nasal Cannula 2 12/05/16 15:05 71 20 148/80 99 Nasal Cannula 2 12/05/16 14:55 76 20 138/73 100 Mask 10 12/05/16 14:45 68 17 136/69 100 Mask 10 12/05/16 14:39 36.1 67 16 163/91 100 Mask 10 Physical Exam: General- no acute distress Head- atraumatic Eyes- PERRL, EOMI ENT- oropharynx clear Neck- supple, no JVD Lungs- clear to auscultation and percussion Heart- regular rhythm; no murmur Abdomen- normal bowel sounds, soft, nontender Extremities- no calf tenderness, right hip pain Neuro- alert, oriented x 3; PERRL, EOMI Skin- warm & dry Laboratory Results: Last 24 Hours Test 12/05/16 04:10 White Blood Count 9.65 K/uL Red Blood Count 4.04 M/uL Hemoglobin 12.3 g/dL Hematocrit 37.8 % Mean Corpuscular Volume 93.6 fL Mean Corpuscular Hemoglobin 30.4 pg Mean Corpuscular Hemoglobin Concent 32.5 g/dl Platelet Count 395 K/uL Mean Platelet Volume 8.7 fL Neutrophils (%) (Auto) 44.3 % Lymphocytes (%) (Auto) 41.7 % Monocytes (%) (Auto) 11.3 % Eosinophils (%) (Auto) 0.6 % Basophils (%) (Auto) 0.4 % Neutrophils # (Auto) 4.28 K/uL Lymphocytes # (Auto) 4.02 K/uL Monocytes # (Auto) 1.09 K/uL Eosinophils # (Auto) 0.06 K/uL Basophils # (Auto) 0.04 K/uL RDW Standard Deviation 53.2 fL RDW Coefficient of Variation 15.5 % Immature Granulocyte % (Auto) 1.7 % Immature Granulocyte # (Auto) 0.16 K/uL Prothrombin Time 10.2 SECONDS Prothromb Time International Ratio 1.0 Activated Partial Thromboplast Time 25.4 SECONDS Partial Thromboplastin Ratio 1.0 Sodium Level 141 mmol/L Potassium Level 3.4 mmol/L Chloride Level 108 mmol/L Carbon Dioxide Level 25 mmol/L Anion Gap 8.0 mmol/L Blood Urea Nitrogen 13 mg/dl Creatinine 0.80 mg/dl Est Creatinine Clear Calc Drug Dose 72.9 ml/min Estimated GFR () 95.5 Estimated GFR (Non- 82.4 BUN/Creatinine Ratio 16.1 Random Glucose 102 mg/dl Calcium Level 8.9 mg/dl Magnesium Level 2.8 mg/dl Total Bilirubin 0.3 mg/dl Direct Bilirubin < 0.1 mg/dl Aspartate Amino Transf (AST/SGOT) 10 U/L Alanine Aminotransferase (ALT/SGPT) 20 U/L Alkaline Phosphatase 59 U/L Total Protein 7.3 gm/dl Albumin 3.8 gm/dl Assessment & Plan Right hip pain CT of right hip showed an acute nondisplaced transcervical fracture through the right femoral neck. No dislocation. went to OR today for Open Reduction Internal Fixation Canunulated Screws of Right Hip Continue pain management incentive spirometry monitor hemoglobin PT/OT ? Pneumonia Chest xray showed Left basilar linear densities recently treated with bronchitis Was started on levaquin, continue abx COPD continue breathing treatment and Brovana stable Tobacco abuse Counseling on smoking cessation Hypertension Stable Hx PSVT S/P ablation on NSR Chronic pain on narcotics PA prescription drug monitor reviewed Bipolar disorder stable. Hypokalemia K replaced Will monitor BMP DVT px SCDs for now due to recent surgery Code status Full code Consultants: ortho Current Inpatient Medications: Current Inpatient Medications Medications (Trade) Dose Ordered Sig/Jennifer Route Start Time Stop Time Status Last Admin Dose Admin Albuterol/ Ipratropium (Duoneb) 3 ml Q2H PRN INH 12/05/16 06:15 01/04/17 06:14 Ketorolac Tromethamine (Toradol Inj) 30 mg Q6H PRN IV 12/05/16 06:15 12/10/16 06:14 12/05/16 16:20 30 MG Enoxaparin Sodium (Lovenox Inj) 40 mg QAM SQ 12/05/16 09:00 01/04/17 08:59 12/05/16 17:54 40 MG Acetaminophen (Tylenol Tab) 650 mg Q4H PRN PO 12/05/16 06:15 01/04/17 06:14 Morphine Sulfate (MoRPHine SULFATE INJ) 4 mg Q6H PRN IV 12/05/16 06:15 12/19/16 06:14 Amlodipine Besylate (Norvasc Tab) 2.5 mg DAILY PRN PO 12/05/16 06:15 01/04/17 06:14 Aripiprazole (Abilify Tab) 30 mg HS PO 12/05/16 21:00 01/04/17 20:59 Baclofen (Lioresal Tab) 10 mg TID PO 12/05/16 09:00 01/04/17 08:59 12/05/16 16:22 10 MG Buspirone HCl (BusPAR TAB) 15 mg BID PO 12/05/16 09:00 01/04/17 08:59 12/05/16 10:07 15 MG Cetirizine HCl (zyrTEC TAB) 10 mg DAILY PO 12/05/16 09:00 01/04/17 08:59 12/05/16 10:14 10 MG Docusate Sodium (coLACE CAP) 100 mg BID PRN PO 12/05/16 06:15 01/04/17 06:14 Fentanyl (Duragesic Patch) 25 mcg Q3D@1830 TD 12/06/16 18:30 12/20/16 18:29 Ferrous Sulfate (Feosol Tab) 325 mg QAM PO 12/05/16 09:00 01/04/17 08:59 12/05/16 10:08 325 MG Fluticasone Propionate (Flonase Nasal [place]) 1 sprays BID [place] 12/05/16 09:00 01/04/17 08:59 12/05/16 10:16 1 SPRAYS Folic Acid (Folvite Tab) 1 mg QAM PO 12/05/16 09:00 01/04/17 08:59 12/05/16 10:09 1 MG Lamotrigine (Lamictal Tab) 25 mg BID PO 12/05/16 09:00 01/04/17 08:59 12/05/16 10:09 25 MG Lamotrigine (Lamictal Tab) 100 mg BID PO 12/05/16 09:00 01/04/17 08:59 12/05/16 10:09 100 MG Lorazepam (Ativan Tab) 2 mg BID PO 12/05/16 09:00 01/04/17 08:59 12/05/16 10:06 2 MG Metoclopramide HCl (Reglan Tab) 5 mg ACHS PO 12/05/16 08:00 01/04/17 07:59 12/05/16 17:52 5 MG Metoprolol Succinate (Toprol Xl Tab) 25 mg DAILY PO 12/05/16 09:00 01/04/17 08:59 12/05/16 10:13 25 MG Mirabegron (Myrbetriq Er) 50 mg QAM PO 12/05/16 09:00 01/04/17 08:59 12/05/16 10:10 50 MG Multivitamins/ Minerals (Multivitamin W/ Minerals Tab) 1 tab QAM PO 12/05/16 09:00 01/04/17 08:59 12/05/16 10:10 1 TAB Miscellaneous Information (Order Awaiting Action) 1 ea QS N/A 12/05/16 08:00 01/04/17 07:59 Topiramate (Topamax Tab) 100 mg BID PO 12/05/16 09:00 01/04/17 08:59 12/05/16 10:11 100 MG Venlafaxine HCl (effeXOR EXTENDED REL CAP) 75 mg DAILY@1200 PO 12/05/16 12:00 01/04/17 11:59 Venlafaxine HCl (effeXOR EXTENDED REL CAP) 300 mg QAM PO 12/05/16 09:00 01/04/17 08:59 12/05/16 10:08 300 MG Zolpidem Tartrate (Ambien Tab) 10 mg HS PRN PO 12/05/16 06:15 01/04/17 06:14 Azelastine HCl (Astelin Nasal [place]) 1 sprays TID NA 12/05/16 09:00 01/04/17 08:59 12/05/16 10:06 1 SPRAYS Pantoprazole Sodium (Protonix Tab) 40 mg DAILY PO 12/05/16 09:00 01/04/17 08:59 12/05/16 10:11 40 MG Polyethylene (Miralax Powder Packet) 17 gm DAILY PRN PO 12/05/16 06:15 01/04/17 06:14 Ranitidine HCl (zANTac TAB) 300 mg QAM PO 12/05/16 09:00 01/04/17 08:59 12/05/16 10:14 300 MG Albuterol/ Ipratropium (Duoneb) 3 ml Q2H PRN INH 12/05/16 06:15 01/04/17 06:14 Arformoterol Tartrate 15 mcg 15 mcg BIDR INH 12/05/16 08:00 01/04/17 07:59 Lactated Ringer's (Lr 1000ml) 1,000 ml @ 60 mls/hr [id number] IV 12/05/16 06:15 01/04/17 06:14 12/05/16 07:48 60 MLS/HR Levofloxacin 1 ea 1 ea UD PRN N/A 12/06/16 09:00 12/11/16 08:59 Lorazepam/Syringe (Ativan Inj/ Syringe) 1 ml @ 1 mls/min Q4H PRN IV 12/05/16 06:45 01/04/17 06:44 Levofloxacin (Levaquin Tab) 750 mg DAILY@11 PO 12/06/16 11:00 12/12/16 10:59 Miscellaneous (Fentanyl Patch Remove & Waste) 1 ea Q3D@1829 N/A 12/06/16 18:29 01/05/17 18:28 Miscellaneous Information 1 ea 1 ea QS N/A 12/05/16 16:00 01/04/17 15:59 12/05/16 16:25 1 EA Cefazolin Sodium/ Dextrose (Ancef Iv/D5 50ml) 55 ml @ 100 mls/hr Q8H IV 12/05/16 22:00 12/06/16 06:32 Hydromorphone HCl (Dilaudid Inj) 0.25 mg Q5M PRN IV 12/05/16 15:00 12/05/16 20:00 Naloxone HCl (Narcan Inj) 0.2 mg Q2M PRN IV 12/05/16 15:00 12/05/16 20:00 Flumazenil (Romazicon Inj) 0.2 mg Q2M PRN IV 12/05/16 15:00 12/05/16 20:00 Ondansetron HCl (Zofran Inj) 4 mg ONE PRN IV 12/05/16 15:00 12/05/16 20:00 Labetalol HCl (Normodyne IV) 5 mg Q5M PRN IV 12/05/16 15:00 12/05/16 20:00 Ephedrine Sulfate (EpHEDrine SULFATE INJ) 5 mg Q5M PRN IV 12/05/16 15:00 12/05/16 20:00 Atropine Sulfate (Atropine Sulfate 0.1MG/Ml Inj) 0.5 mg Q1M PRN IV 12/05/16 15:00 12/05/16 20:00
[2016-12-05] MEDS: OXYCODONE HCL IR 5 MG TAB (IMMEDIATE RELEASE) PO PRN (19:52)
[2016-12-05] MEDS: ARFORMOTEROL TART 15MCG/2ML VIAL INH SCH (19:57)
[2016-12-05] MEDS ORDERED: ASPIRIN 325 MG ECTAB PO SCH (21:00)
[2016-12-05] MEDS: ARIPIprazole TAB 15 MG TAB PO SCH (21:43)
[2016-12-05] MEDS: CEFAZOLIN IV 1,000 MG in DEXTROSE 5% 50ML 50 ML IV SCH (21:47)
[2016-12-06] VITALS (7 sets, daily range): BP systolic 98–125; BP diastolic 63–83; PULSE 73–76; TEMP 36.6–36.9; O2SAT 93–96
[2016-12-06] MEDS: OXYCODONE HCL IR 5 MG TAB (IMMEDIATE RELEASE) PO PRN ×5 (02:34→21:15)
[2016-12-06] MEDS: CEFAZOLIN IV 1,000 MG in DEXTROSE 5% 50ML 50 ML IV SCH (05:40)
[2016-12-06 06:07] LABS: BASO % 0.1 %; BASO ABS # 0.01 K/uL (0-0.2); COMPLETE YES; EOS % 0.1 %; HEMATOCRIT 32.8 % (37-47); IG% 0.7 %; LYMPH % 13.5 %; LYMPH ABS # 1.49 K/uL (1.2-3.4); MEAN CELL VOLUME 93.4 fL (80-100); MEAN CORPUSCULAR HEMOGLOBIN 30.5 pg (25-34); MEAN CORPUSCULAR HGB CONC 32.6 g/dl (32-36); MEAN PLATELET VOLUME 9.3 fL (7.4-10.4); MONO % 10.3 %; NEUT % 75.3 %; PLATELET COUNT 354 K/uL (130-400); RED BLOOD COUNT 3.51 M/uL (4.2-5.4); WHITE BLOOD COUNT 11.04 K/uL (4.8-10.8)
[2016-12-06] MEDS: KETOROLAC TROMETHAMINE 30 MG/ML VIAL IV PRN ×3 (06:16→19:25)
[2016-12-06 06:46] LABS: BUN/CREATININE RATIO 12.3 (10-20); CALCIUM 8.9 mg/dl (8.5-10.1); CREATININE 0.61 mg/dl (0.60-1.20); POTASSIUM 3.6 mmol/L (3.5-5.1)
[2016-12-06] MEDS ORDERED: NURSING DECISION MEDICATION ORDER SCH (07:15)
[2016-12-06] MEDS: ARFORMOTEROL TART 15MCG/2ML VIAL INH SCH ×2 (07:48→20:20)
[2016-12-06] MEDS: VENLAFAXINE HCL XR 150 MG CAPXR PO SCH (07:53)
[2016-12-06] MEDS: TOPIRAMATE 100 MG TAB PO SCH ×2 (07:53→21:19)
[2016-12-06] MEDS: BusPIRone 15 MG TAB PO SCH ×2 (07:54→21:19)
[2016-12-06] MEDS: AZELASTINE HCL 30 ML INH SCH ×3 (07:54→21:15)
[2016-12-06] MEDS: RANITIDINE HCL 150 MG TAB PO SCH (07:54)
[2016-12-06] MEDS: FERROUS SULFATE 325 MG TAB PO SCH (07:55)
[2016-12-06] MEDS: BACLOFEN 10 MG TAB PO SCH ×3 (07:55→21:19)
[2016-12-06] MEDS: CETIRIZINE HCL 10 MG TAB PO SCH (07:55)
[2016-12-06] MEDS: MIRABEGRON ER 25 MG TAB PO SCH (07:55)
[2016-12-06] MEDS: CEROVITE ADV FORMULA TAB PO SCH (07:55)
[2016-12-06] MEDS: METOCLOPRAMIDE HCL 5 MG TAB PO SCH ×4 (07:55→21:20)
[2016-12-06] MEDS: METOPROLOL SUCC 25MG EXT REL TAB PO SCH (07:56)
[2016-12-06] MEDS: PANTOprazole SOD 40 MG TAB PO SCH (07:56)
[2016-12-06] MEDS: ENOXAPARIN 40 MG/0.4 ML SYR SQ SCH (07:57)
[2016-12-06] MEDS: FLUTICASONE PROPIONATE NA SPR 16 GM BTL NAE SCH ×2 (07:58→21:16)
[2016-12-06] MEDS: SULINDAC 150 MG TAB PO SCH ×2 (07:58→21:21)
[2016-12-06] MEDS: CHECK FENTANYL PATCH PLACEMENT SCH ×3 (07:59→23:35)
[2016-12-06] MEDS: LORAZEPAM 2 MG TAB PO SCH ×2 (08:00→21:23)
[2016-12-06] MEDS ORDERED: LEVOFLOXACIN CONSULT ACTIVE PRN (09:00)
--- NOTE | 2016-12-06 10:22 | PROGRESS NOTE ---
DATE: 12/06/2016 DATE: 12/06/2016. CHIEF COMPLAINT: Status post percutaneous screw fixation, right hip, postoperative day #1. PROGRESS: Jennifer was seen and examined at bedside today. Overall, she is doing fairly well. She has some soreness in her hip but it is decreased from where it was before surgery. She has been sitting on the edge of the bed, but has not been ambulating. She was able to get some sleep last night, has no other complaints. PHYSICAL EXAMINATION: RIGHT HIP: The dressing is clean and dry. Her leg lengths are equal. She has active dorsiflexion and plantarflexion of her right ankle. Sensation is intact throughout. LABORATORY DATA: She has an H\T\H today of 10.7 and 32.8. VITAL SIGNS: All stable on room air and she still has a urinary catheter in. IMAGING: X-rays postoperatively of the right hip show the fracture to be in anatomical alignment and the screws to be in good placement. There were no complications on the x-rays. IMPRESSION: Status post percutaneous screw fixation of the right hip. PLAN: Given the fracture type as well as her history of fractures, I want to be a little cautious with her weightbearing. I prefer to keep her touch toe weightbearing for 6 weeks with this fracture. I did discuss that with her at bedside. Physical therapy and occupational therapy will be by to show her touch toe weightbearing on that side. She can continue Lovenox for DVT prophylaxis and the medicine team will be in charge of the pain control. Will continue to follow her throughout her stay.
--- NOTE | 2016-12-06 11:39 | Progress Note ---
Medicine Progress Note Date & Time of Visit: Dec 06, 2016 at 11:23. Subjective Pt was seen and examined Pt sitting in chair comfortable with no distress She said that she feels fine She said that she is still having some pain and the pain med does not last much Pt denies any chest pain, palpitation, dizziness and sob She has not had a BM yet, last BM was on Thursday Objective Last 8 Hrs Date Time Temp Pulse Resp B/P Pulse Ox O2 Delivery O2 Flow Rate FiO2 12/06/16 08:45 Room Air 12/06/16 07:48 76 16 96 Room Air 12/06/16 07:40 36.9 73 17 125/83 95 Room Air 12/06/16 03:29 36.6 74 16 120/76 94 Room Air Physical Exam: General- no acute distress Head- atraumatic Eyes- PERRL, EOMI ENT- oropharynx clear Neck- supple, no JVD Lungs- clear to auscultation and percussion Heart- regular rhythm; no murmur Abdomen- normal bowel sounds, soft, nontender Extremities- no calf tenderness Neuro- alert, oriented x 3; PERRL, EOMI Skin- warm & dry Laboratory Results: Last 24 Hours Test 12/06/16 05:15 12/06/16 05:25 White Blood Count 11.04 K/uL Red Blood Count 3.51 M/uL Hemoglobin 10.7 g/dL Hematocrit 32.8 % Mean Corpuscular Volume 93.4 fL Mean Corpuscular Hemoglobin 30.5 pg Mean Corpuscular Hemoglobin Concent 32.6 g/dl Platelet Count 354 K/uL Mean Platelet Volume 9.3 fL Neutrophils (%) (Auto) 75.3 % Lymphocytes (%) (Auto) 13.5 % Monocytes (%) (Auto) 10.3 % Eosinophils (%) (Auto) 0.1 % Basophils (%) (Auto) 0.1 % Neutrophils # (Auto) 8.31 K/uL Lymphocytes # (Auto) 1.49 K/uL Monocytes # (Auto) 1.14 K/uL Eosinophils # (Auto) 0.01 K/uL Basophils # (Auto) 0.01 K/uL RDW Standard Deviation 51.7 fL RDW Coefficient of Variation 15.4 % Immature Granulocyte % (Auto) 0.7 % Immature Granulocyte # (Auto) 0.08 K/uL Sodium Level 141 mmol/L Potassium Level 3.6 mmol/L Chloride Level 109 mmol/L Carbon Dioxide Level 21 mmol/L Anion Gap 11.0 mmol/L Blood Urea Nitrogen 8 mg/dl Creatinine 0.61 mg/dl Est Creatinine Clear Calc Drug Dose 95.6 ml/min Estimated GFR () 117.5 Estimated GFR (Non- 101.3 BUN/Creatinine Ratio 12.3 Random Glucose 119 mg/dl Calcium Level 8.9 mg/dl 25-Hydroxy Vitamin D Total 11.8 ng/ml Assessment & Plan Right hip pain CT of right hip showed an acute nondisplaced transcervical fracture through the right femoral neck. No dislocation. POD #1 for Open Reduction Internal Fixation Cannulated Screws of Right Hip Ortho recommends touch toe weightbearing for now on the right extremity Continue pain management case management is working for rehab placement [facility] spirometry monitor hemoglobin PT/OT ? Pneumonia Chest xray showed Left basilar linear densities recently treated with bronchitis Continue levaquin Opioid induce Constipation Will add Senokot continue miralax COPD continue breathing treatment and Brovana stable Tobacco abuse Counseling on smoking cessation Hypertension Stable Hx PSVT S/P ablation on NSR Chronic pain on narcotics PA prescription drug monitor reviewed Bipolar disorder stable. Hypokalemia K replaced Will monitor BMP DVT px SCDs for now due to recent surgery Code status Full code DISPOSITION Waiting for placement to Rehab Consultants: ortho PT/OT Current Inpatient Medications: Current Inpatient Medications Medications (Trade) Dose Ordered Sig/Jennifer Route Start Time Stop Time Status Last Admin Dose Admin Albuterol/ Ipratropium (Duoneb) 3 ml Q2H PRN INH 12/05/16 06:15 01/04/17 06:14 Ketorolac Tromethamine (Toradol Inj) 30 mg Q6H PRN IV 12/05/16 06:15 12/10/16 06:14 12/06/16 06:16 30 MG Enoxaparin Sodium (Lovenox Inj) 40 mg QAM SQ 12/05/16 09:00 01/04/17 08:59 12/06/16 07:57 40 MG Acetaminophen (Tylenol Tab) 650 mg Q4H PRN PO 12/05/16 06:15 01/04/17 06:14 Amlodipine Besylate (Norvasc Tab) 2.5 mg DAILY PRN PO 12/05/16 06:15 01/04/17 06:14 Aripiprazole (Abilify Tab) 30 mg HS PO 12/05/16 21:00 01/04/17 20:59 12/05/16 21:43 30 MG Baclofen (Lioresal Tab) 10 mg TID PO 12/05/16 09:00 01/04/17 08:59 12/06/16 07:55 10 MG Buspirone HCl (BusPAR TAB) 15 mg BID PO 12/05/16 09:00 01/04/17 08:59 12/06/16 07:54 15 MG Cetirizine HCl (zyrTEC TAB) 10 mg DAILY PO 12/05/16 09:00 01/04/17 08:59 12/06/16 07:55 10 MG Docusate Sodium (coLACE CAP) 100 mg BID PRN PO 12/05/16 06:15 01/04/17 06:14 Fentanyl (Duragesic Patch) 25 mcg Q3D@1830 TD 12/06/16 18:30 12/20/16 18:29 Ferrous Sulfate (Feosol Tab) 325 mg QAM PO 12/05/16 09:00 01/04/17 08:59 12/06/16 07:55 325 MG Fluticasone Propionate (Flonase Nasal [place]) 1 sprays BID [place] 12/05/16 09:00 01/04/17 08:59 12/06/16 07:58 1 SPRAYS Folic Acid (Folvite Tab) 1 mg QAM PO 12/05/16 09:00 01/04/17 08:59 12/06/16 07:56 1 MG Lamotrigine (Lamictal Tab) 25 mg BID PO 12/05/16 09:00 01/04/17 08:59 12/06/16 07:56 25 MG Lamotrigine (Lamictal Tab) 100 mg BID PO 12/05/16 09:00 01/04/17 08:59 12/06/16 07:56 100 MG Lorazepam (Ativan Tab) 2 mg BID PO 12/05/16 09:00 01/04/17 08:59 12/06/16 08:00 2 MG Metoclopramide HCl (Reglan Tab) 5 mg ACHS PO 12/05/16 08:00 01/04/17 07:59 12/06/16 07:55 5 MG Metoprolol Succinate (Toprol Xl Tab) 25 mg DAILY PO 12/05/16 09:00 01/04/17 08:59 12/06/16 07:56 25 MG Mirabegron (Myrbetriq Er) 50 mg QAM PO 12/05/16 09:00 01/04/17 08:59 12/06/16 07:55 50 MG Multivitamins/ Minerals (Multivitamin W/ Minerals Tab) 1 tab QAM PO 12/05/16 09:00 01/04/17 08:59 12/06/16 07:55 1 TAB Topiramate (Topamax Tab) 100 mg BID PO 12/05/16 09:00 01/04/17 08:59 12/06/16 07:53 100 MG Venlafaxine HCl (effeXOR EXTENDED REL CAP) 75 mg DAILY@1200 PO 12/05/16 12:00 01/04/17 11:59 Venlafaxine HCl (effeXOR EXTENDED REL CAP) 300 mg QAM PO 12/05/16 09:00 01/04/17 08:59 12/06/16 07:53 300 MG Zolpidem Tartrate (Ambien Tab) 10 mg HS PRN PO 12/05/16 06:15 01/04/17 06:14 Azelastine HCl (Astelin Nasal [place]) 1 sprays TID NA 12/05/16 09:00 01/04/17 08:59 12/06/16 07:54 1 SPRAYS Pantoprazole Sodium (Protonix Tab) 40 mg DAILY PO 12/05/16 09:00 01/04/17 08:59 12/06/16 07:56 40 MG Polyethylene (Miralax Powder Packet) 17 gm DAILY PRN PO 12/05/16 06:15 01/04/17 06:14 Ranitidine HCl (zANTac TAB) 300 mg QAM PO 12/05/16 09:00 01/04/17 08:59 12/06/16 07:54 300 MG Albuterol/ Ipratropium (Duoneb) 3 ml Q2H PRN INH 12/05/16 06:15 01/04/17 06:14 Arformoterol Tartrate ([place] 15MCG/ 2ML Neb Soln) 15 mcg BIDR INH 12/05/16 08:00 01/04/17 07:59 12/06/16 07:48 15 MCG Levofloxacin 1 ea 1 ea UD PRN N/A 12/06/16 09:00 12/11/16 08:59 Lorazepam/Syringe (Ativan Inj/ Syringe) 1 ml @ 1 mls/min Q4H PRN IV 12/05/16 06:45 01/04/17 06:44 Levofloxacin (Levaquin Tab) 750 mg DAILY@11 PO 12/06/16 11:00 12/12/16 10:59 Miscellaneous (Fentanyl Patch Remove & Waste) 1 ea Q3D@1829 N/A 12/06/16 18:29 01/05/17 18:28 Miscellaneous Information (Check Fentanyl Patch Placement) 1 ea QS N/A 12/05/16 16:00 01/04/17 15:59 12/06/16 07:59 1 EA Oxycodone HCl (Roxicodone Immediate Rel Tab) 5 mg Q6HWA PRN PO 12/05/16 19:30 12/19/16 19:29 12/06/16 08:01 5 MG Sulindac ([place] Tab) 150 mg BID PO 12/06/16 09:00 01/05/17 08:59 12/06/16 07:58 150 MG
[2016-12-06] MEDS ORDERED: DOCUSATE SODIUM/SENNA 50/8.6MG TAB PO PRN (11:45)
[2016-12-06] MEDS: VENLAFAXINE HCL XR 75 MG CAPXR PO SCH (11:52)
[2016-12-06] MEDS: LEVOFLOXACIN 750 MG TAB PO SCH (11:52)
[2016-12-06] MEDS: LORAZEPAM INJ 0.5 MG in SYRINGE 0.75 ML IV PRN ×2 (14:12→19:36)
[2016-12-06] MEDS ORDERED: FENTANYL PATCH REMOVE & WASTE SCH (18:29)
[2016-12-06] MEDS ORDERED: FENTANYL 25 MCG/HR TDSY TD SCH (18:30)
[2016-12-06] MEDS: ARIPIprazole TAB 15 MG TAB PO SCH (21:21)
[2016-12-06] MEDS: ZOLPIDEM TARTRATE 10 MG TAB PO PRN (21:23)
[2016-12-07] MEDS: OXYCODONE HCL IR 5 MG TAB (IMMEDIATE RELEASE) PO PRN ×5 (03:23→23:39)
[2016-12-07] MEDS: KETOROLAC TROMETHAMINE 30 MG/ML VIAL IV PRN ×3 (06:33→18:26)
[2016-12-07 06:51] VITALS: BP 104/70; PULSE 67; TEMP 36.6; O2SAT 95
[2016-12-07 07:42] VITALS: PULSE 79; O2SAT 96
[2016-12-07] MEDS: ARFORMOTEROL TART 15MCG/2ML VIAL INH SCH ×2 (07:42→20:08)
[2016-12-07] MEDS: CHECK FENTANYL PATCH PLACEMENT SCH ×3 (08:17→23:39)
[2016-12-07] MEDS: METOCLOPRAMIDE HCL 5 MG TAB PO SCH ×4 (08:19→20:50)
[2016-12-07] MEDS: FLUTICASONE PROPIONATE NA SPR 16 GM BTL NAE SCH ×2 (08:45→20:47)
[2016-12-07] MEDS: AZELASTINE HCL 30 ML INH SCH ×3 (08:46→20:47)
[2016-12-07] MEDS: BusPIRone 15 MG TAB PO SCH ×2 (08:46→20:48)
[2016-12-07] MEDS: PANTOprazole SOD 40 MG TAB PO SCH (08:47)
[2016-12-07] MEDS: BACLOFEN 10 MG TAB PO SCH ×3 (08:47→20:50)
[2016-12-07] MEDS: FERROUS SULFATE 325 MG TAB PO SCH (08:47)
[2016-12-07] MEDS: MIRABEGRON ER 25 MG TAB PO SCH (08:47)
[2016-12-07] MEDS: CETIRIZINE HCL 10 MG TAB PO SCH (08:47)
[2016-12-07] MEDS: TOPIRAMATE 100 MG TAB PO SCH ×2 (08:48→20:51)
[2016-12-07] MEDS: CEROVITE ADV FORMULA TAB PO SCH (08:48)
[2016-12-07] MEDS: VENLAFAXINE HCL XR 150 MG CAPXR PO SCH (08:48)
[2016-12-07] MEDS: METOPROLOL SUCC 25MG EXT REL TAB PO SCH (08:48)
[2016-12-07] MEDS: RANITIDINE HCL 150 MG TAB PO SCH (08:48)
[2016-12-07] MEDS: SULINDAC 150 MG TAB PO SCH ×2 (08:49→20:48)
[2016-12-07] MEDS: ENOXAPARIN 40 MG/0.4 ML SYR SQ SCH (08:49)
[2016-12-07] MEDS: LORAZEPAM 2 MG TAB PO SCH ×2 (08:55→20:49)
[2016-12-07] MEDS ORDERED: ERGOCALCIFEROL 50,000 INTER.UNIT CAP PO SCH (09:00)
[2016-12-07 09:14] LABS: HEMATOCRIT 33.2 % (37-47); MEAN CELL VOLUME 93.8 fL (80-100); MEAN CORPUSCULAR HEMOGLOBIN 30.2 pg (25-34); MEAN CORPUSCULAR HGB CONC 32.2 g/dl (32-36); MEAN PLATELET VOLUME 8.8 fL (7.4-10.4); PLATELET COUNT 295 K/uL (130-400); RED BLOOD COUNT 3.54 M/uL (4.2-5.4); WHITE BLOOD COUNT 8.73 K/uL (4.8-10.8)
[2016-12-07 09:37] LABS: CALCIUM 8.9 mg/dl (8.5-10.1); CREATININE 0.72 mg/dl (0.60-1.20); POTASSIUM 3.8 mmol/L (3.5-5.1)
[2016-12-07] MEDS: LEVOFLOXACIN 750 MG TAB PO SCH (10:58)
[2016-12-07] MEDS: VENLAFAXINE HCL XR 75 MG CAPXR PO SCH (12:11)
[2016-12-07 15:35] VITALS: BP 98/63; PULSE 98; TEMP 36.6; O2SAT 98
--- NOTE | 2016-12-07 18:40 | Progress Note ---
Medicine Progress Note Date & Time of Visit: Dec 07, 2016 at 18:27. Subjective Pt was seen and examined Sitting in chair very comfortable with no distress Pt said that she feels fine she said that her pain improved she still had no BM yet, last one was Wed she denies any chest pain, palpitation, dizziness and SOB Objective Last 8 Hrs Date Time Temp Pulse Resp B/P Pulse Ox O2 Delivery O2 Flow Rate FiO2 12/07/16 15:35 36.6 98 16 98/63 98 Room Air Physical Exam: General- no acute distress Head- atraumatic Eyes- PERRL, EOMI ENT- oropharynx clear Neck- supple, no JVD Lungs- clear to auscultation and percussion Heart- regular rhythm; no murmur Abdomen- normal bowel sounds, soft, nontender Extremities- no calf tenderness Neuro- alert, oriented x 3; PERRL, EOMI Skin- warm & dry Laboratory Results: Last 24 Hours Test 12/07/16 08:53 White Blood Count 8.73 K/uL Red Blood Count 3.54 M/uL Hemoglobin 10.7 g/dL Hematocrit 33.2 % Mean Corpuscular Volume 93.8 fL Mean Corpuscular Hemoglobin 30.2 pg Mean Corpuscular Hemoglobin Concent 32.2 g/dl RDW Standard Deviation 53.0 fL RDW Coefficient of Variation 15.7 % Platelet Count 295 K/uL Mean Platelet Volume 8.8 fL Sodium Level 142 mmol/L Potassium Level 3.8 mmol/L Chloride Level 108 mmol/L Carbon Dioxide Level 20 mmol/L Anion Gap 14.0 mmol/L Blood Urea Nitrogen 11 mg/dl Creatinine 0.72 mg/dl Est Creatinine Clear Calc Drug Dose 81.0 ml/min Estimated GFR () 108.5 Estimated GFR (Non- 93.6 BUN/Creatinine Ratio 15.0 Random Glucose 97 mg/dl Calcium Level 8.9 mg/dl Assessment & Plan Right hip pain CT of right hip showed an acute nondisplaced transcervical fracture through the right femoral neck. No dislocation. POD #2 for Open Reduction Internal Fixation Cannulated Screws of Right Hip Ortho recommends touch toe weightbearing for now on the right extremity Continue pain management case management is working for rehab placement to [facility] incentive spirometry Hgb stable Continue PT/OT ? Pneumonia Chest xray showed Left basilar linear densities recently treated with bronchitis afebrile, no elevated WBC Continue levaquin day 2 Opioid induce Constipation No BM since Thursday continue miralax and senokot S will give try relistor x1 today Low Vit D Vit D 50,000 unit given today Continue Vit D supplement COPD continue breathing treatment and Brovana stable Tobacco abuse Counseling on smoking cessation Hypertension Stable Hx PSVT S/P ablation on NSR Chronic pain on narcotics PA prescription drug monitor reviewed Bipolar disorder stable. Hypokalemia K 3.8 Will monitor BMP DVT px On Lovenox sub Code status Full code DISPOSITION Waiting for placement to Rehab Consultants: ortho PT/OT Current Inpatient Medications: Current Inpatient Medications Medications (Trade) Dose Ordered Sig/Jennifer Route Start Time Stop Time Status Last Admin Dose Admin Albuterol/ Ipratropium (Duoneb) 3 ml Q2H PRN INH 12/05/16 06:15 01/04/17 06:14 Ketorolac Tromethamine (Toradol Inj) 30 mg Q6H PRN IV 12/05/16 06:15 12/10/16 06:14 12/07/16 18:26 30 MG Enoxaparin Sodium (Lovenox Inj) 40 mg QAM SQ 12/05/16 09:00 01/04/17 08:59 12/07/16 08:49 40 MG Acetaminophen (Tylenol Tab) 650 mg Q4H PRN PO 12/05/16 06:15 01/04/17 06:14 Amlodipine Besylate (Norvasc Tab) 2.5 mg DAILY PRN PO 12/05/16 06:15 01/04/17 06:14 Aripiprazole (Abilify Tab) 30 mg HS PO 12/05/16 21:00 01/04/17 20:59 12/06/16 21:21 30 MG Baclofen (Lioresal Tab) 10 mg TID PO 12/05/16 09:00 01/04/17 08:59 12/07/16 14:40 10 MG Buspirone HCl (BusPAR TAB) 15 mg BID PO 12/05/16 09:00 01/04/17 08:59 12/07/16 08:46 15 MG Cetirizine HCl (zyrTEC TAB) 10 mg DAILY PO 12/05/16 09:00 01/04/17 08:59 12/07/16 08:47 10 MG Docusate Sodium (coLACE CAP) 100 mg BID PRN PO 12/05/16 06:15 01/04/17 06:14 Fentanyl (Duragesic Patch) 25 mcg Q3D@1830 TD 12/06/16 18:30 12/20/16 18:29 12/06/16 18:20 25 MCG Ferrous Sulfate (Feosol Tab) 325 mg QAM PO 12/05/16 09:00 01/04/17 08:59 12/07/16 08:47 325 MG Fluticasone Propionate (Flonase Nasal [place]) 1 sprays BID M[place] 12/05/16 09:00 01/04/17 08:59 12/07/16 08:45 1 SPRAYS Folic Acid (Folvite Tab) 1 mg QAM PO 12/05/16 09:00 01/04/17 08:59 12/07/16 08:46 1 MG Lamotrigine (Lamictal Tab) 25 mg BID PO 12/05/16 09:00 01/04/17 08:59 12/07/16 08:48 25 MG Lamotrigine (Lamictal Tab) 100 mg BID PO 12/05/16 09:00 01/04/17 08:59 12/07/16 08:46 100 MG Lorazepam (Ativan Tab) 2 mg BID PO 12/05/16 09:00 01/04/17 08:59 12/07/16 08:55 2 MG Metoclopramide HCl (Reglan Tab) 5 mg ACHS PO 12/05/16 08:00 01/04/17 07:59 12/07/16 17:33 5 MG Metoprolol Succinate (Toprol Xl Tab) 25 mg DAILY PO 12/05/16 09:00 01/04/17 08:59 12/07/16 08:48 25 MG Mirabegron (Myrbetriq Er) 50 mg QAM PO 12/05/16 09:00 01/04/17 08:59 12/07/16 08:47 50 MG Multivitamins/ Minerals (Multivitamin W/ Minerals Tab) 1 tab QAM PO 12/05/16 09:00 01/04/17 08:59 12/07/16 08:48 1 TAB Topiramate (Topamax Tab) 100 mg BID PO 12/05/16 09:00 01/04/17 08:59 12/07/16 08:48 100 MG Venlafaxine HCl (effeXOR EXTENDED REL CAP) 75 mg DAILY@1200 PO 12/05/16 12:00 01/04/17 11:59 12/07/16 12:11 75 MG Venlafaxine HCl (effeXOR EXTENDED REL CAP) 300 mg QAM PO 12/05/16 09:00 01/04/17 08:59 12/07/16 08:48 300 MG Zolpidem Tartrate (Ambien Tab) 10 mg HS PRN PO 12/05/16 06:15 01/04/17 06:14 12/06/16 21:23 10 MG Azelastine HCl (Astelin Nasal [place]) 1 sprays TID NA 12/05/16 09:00 01/04/17 08:59 12/07/16 14:40 1 SPRAYS Pantoprazole Sodium (Protonix Tab) 40 mg DAILY PO 12/05/16 09:00 01/04/17 08:59 12/07/16 08:47 40 MG Polyethylene (Miralax Powder Packet) 17 gm DAILY PRN PO 12/05/16 06:15 01/04/17 06:14 12/07/16 09:06 17 GM Ranitidine HCl (zANTac TAB) 300 mg QAM PO 12/05/16 09:00 01/04/17 08:59 12/07/16 08:48 300 MG Albuterol/ Ipratropium (Duoneb) 3 ml Q2H PRN INH 12/05/16 06:15 01/04/17 06:14 Arformoterol Tartrate (Brovana 15MCG/ 2ML Neb Soln) 15 mcg BIDR INH 12/05/16 08:00 01/04/17 07:59 12/07/16 07:42 15 MCG Levofloxacin 1 ea 1 ea UD PRN N/A 12/06/16 09:00 12/11/16 08:59 Lorazepam/Syringe (Ativan Inj/ Syringe) 1 ml @ 1 mls/min Q4H PRN IV 12/05/16 06:45 01/04/17 06:44 12/06/16 19:36 1 MLS/MIN Levofloxacin (Levaquin Tab) 750 mg DAILY@11 PO 12/06/16 11:00 12/12/16 10:59 12/07/16 10:58 750 MG Miscellaneous (Fentanyl Patch Remove & Waste) 1 ea Q3D@1829 N/A 12/06/16 18:29 01/05/17 18:28 12/06/16 18:21 1 EA Miscellaneous Information (Check Fentanyl Patch Placement) 1 ea QS N/A 12/05/16 16:00 01/04/17 15:59 12/07/16 16:15 1 EA Sulindac (Clinoril Tab) 150 mg BID PO 12/06/16 09:00 01/05/17 08:59 12/07/16 08:49 150 MG Senna/Docusate Sodium (Senokot S Tab) 1 tab BID PRN PO 12/06/16 11:45 01/05/17 11:44 Oxycodone HCl (Roxicodone Immediate Rel Tab) 5 mg Q4HWA PRN PO 12/06/16 12:00 12/20/16 11:59 12/07/16 14:40 5 MG Ergocalciferol (Vitamin D Cap) 50,000 interunit Storey@0900 PO 12/07/16 09:00 01/06/17 08:59 12/07/16 10:58 50,000 INTERUNIT Cholecalciferol (Vitamin D Tab) 2,000 inter.unit DAILY PO 12/08/16 09:00 01/07/17 08:59
[2016-12-07] MEDS ORDERED: ONDANSETRON INJ 2 MG/ML 2 ML VIAL IV PRN (18:45)
[2016-12-07 20:00] VITALS: PULSE 80; O2SAT 95
[2016-12-07] MEDS ORDERED: METHYLNALTREXONE BROMIDE INJ 12 MG/0.6 ML SYR SQ ONE (20:00)
[2016-12-07] MEDS: ARIPIprazole TAB 15 MG TAB PO SCH (20:49)
[2016-12-07] MEDS: ZOLPIDEM TARTRATE 10 MG TAB PO PRN (22:05)
[2016-12-07 23:10] VITALS: BP 100/67; PULSE 77; TEMP 36.4; O2SAT 98
[2016-12-08] MEDS: KETOROLAC TROMETHAMINE 30 MG/ML VIAL IV PRN ×2 (01:49→11:10)
[2016-12-08] MEDS: OXYCODONE HCL IR 5 MG TAB (IMMEDIATE RELEASE) PO PRN ×3 (03:42→13:47)
[2016-12-08 05:27] LABS: HEMATOCRIT 31.6 % (37-47); MEAN CELL VOLUME 94.6 fL (80-100); MEAN CORPUSCULAR HEMOGLOBIN 30.5 pg (25-34); MEAN CORPUSCULAR HGB CONC 32.3 g/dl (32-36); MEAN PLATELET VOLUME 8.7 fL (7.4-10.4); PLATELET COUNT 249 K/uL (130-400); RED BLOOD COUNT 3.34 M/uL (4.2-5.4); WHITE BLOOD COUNT 8.86 K/uL (4.8-10.8)
[2016-12-08 06:11] VITALS: BP 114/74; PULSE 73; TEMP 36.7; O2SAT 97
[2016-12-08 06:11] LABS: BUN/CREATININE RATIO 15.8 (10-20); CALCIUM 8.7 mg/dl (8.5-10.1); CREATININE 0.91 mg/dl (0.60-1.20); POTASSIUM 3.9 mmol/L (3.5-5.1)
[2016-12-08 07:00] VITALS: BP 116/79; PULSE 70; TEMP 36.6; O2SAT 96
--- NOTE | 2016-12-08 07:01 | Clinical Documentation Query ---
CLINICAL DOCUMENTATION QUERY 56-y/o female who has undergone percutaneous screw fixation of right hip. In your clinical opinion is this patient being managed for: ( ) Minor trauma induced osteoporotic fracture of right femur in setting of ground fall. ( ) Other explanation of clinical findings (Please Explain) ( ) Unable to determine (Please Define) ( ) Need to Discuss ( ) Not Agree The medical record reflects the following clinical findings, treatment, and risk factors. Clinical Indicators: 56 y/o female who had a ground level fall and suffered right femur fracture. She was found to have a low vitamin D level (25-OH Vit D total 11.8). Orthopedic surgeon is being cautious with weightbearing status. Treatment: orthopedic consult, vitamin D supplementation, Risk Factors: Age, sex, Hx of pelvic fracture Please clarify and document your clinical opinion in the progress notes and discharge summary. Terms such as "probable", "suspected", "likely", "questionable", "possible", or "still to be ruled out" are acceptable. IF IN AGREEMENT, YOU MUST DOCUMENT ABOVE DIAGNOSTIC STATEMENT IN DAILY PROGRESS NOTES AND DISCHARGE SUMMARY. This document is not part of the patient's record. Thank You, Turner Dubon, RN [phone]
--- NOTE | 2016-12-08 07:03 | Clinical Documentation Query ---
CLINICAL DOCUMENTATION QUERY 56-y/o female who has undergone percutaneous screw fixation of right hip. In your clinical opinion is this patient being managed for: ( X ) Minor trauma induced osteoporotic fracture of right femur in setting of ground level fall ( ) Other explanation of clinical findings (Please Explain) ( ) Unable to determine (Please Define) ( ) Need to Discuss ( ) Not Agree The medical record reflects the following clinical findings, treatment, and risk factors. Clinical Indicators: 56 y/o female who had a ground level fall and suffered right femur fracture. She was found to have a low vitamin D level (25-OH Vit D total 11.8). Orthopedic surgeon is being cautious with weightbearing status. Treatment: orthopedic consult, vitamin D supplementation, TTWB x 6weeks Risk Factors: Age, sex, Hx of pelvic fracture Please clarify and document your clinical opinion in the progress notes and discharge summary. Terms such as "probable", "suspected", "likely", "questionable", "possible", or "still to be ruled out" are acceptable. IF IN AGREEMENT, YOU MUST DOCUMENT ABOVE DIAGNOSTIC STATEMENT IN DAILY PROGRESS NOTES AND DISCHARGE SUMMARY. This document is not part of the patient's record. Thank You, Turner Dubon, AAKASH [phone]
[2016-12-08 07:19] VITALS: PULSE 72; O2SAT 97
[2016-12-08] MEDS: ARFORMOTEROL TART 15MCG/2ML VIAL INH SCH (07:19)
[2016-12-08] MEDS: METOCLOPRAMIDE HCL 5 MG TAB PO SCH ×2 (08:07→11:47)
[2016-12-08] MEDS: CHECK FENTANYL PATCH PLACEMENT SCH (08:07)
[2016-12-08] MEDS: AZELASTINE HCL 30 ML INH SCH ×2 (08:08→13:44)
[2016-12-08] MEDS: FLUTICASONE PROPIONATE NA SPR 16 GM BTL NAE SCH (08:09)
[2016-12-08] MEDS: BusPIRone 15 MG TAB PO SCH (08:09)
[2016-12-08] MEDS: SULINDAC 150 MG TAB PO SCH (08:10)
[2016-12-08] MEDS: VENLAFAXINE HCL XR 150 MG CAPXR PO SCH (08:11)
[2016-12-08] MEDS: FERROUS SULFATE 325 MG TAB PO SCH (08:11)
[2016-12-08] MEDS: BACLOFEN 10 MG TAB PO SCH ×2 (08:13→13:44)
[2016-12-08] MEDS: PANTOprazole SOD 40 MG TAB PO SCH (08:13)
[2016-12-08] MEDS: MIRABEGRON ER 25 MG TAB PO SCH (08:13)
[2016-12-08] MEDS: CEROVITE ADV FORMULA TAB PO SCH (08:13)
[2016-12-08] MEDS: METOPROLOL SUCC 25MG EXT REL TAB PO SCH (08:14)
[2016-12-08] MEDS: TOPIRAMATE 100 MG TAB PO SCH (08:14)
[2016-12-08] MEDS: RANITIDINE HCL 150 MG TAB PO SCH (08:15)
[2016-12-08] MEDS: CETIRIZINE HCL 10 MG TAB PO SCH (08:15)
[2016-12-08] MEDS: ENOXAPARIN 40 MG/0.4 ML SYR SQ SCH (08:16)
[2016-12-08] MEDS: LORAZEPAM 2 MG TAB PO SCH (08:22)
--- NOTE | 2016-12-08 08:25 | Anesthesiology Progress Note ---
Anesthesia Post Op Note Date & Time Dec 08, 2016 at 08:25 Vital Signs Vital Signs Past 12 Hours Date Time Temp Pulse Resp B/P Pulse Ox O2 Delivery O2 Flow Rate FiO2 12/08/16 07:56 Room Air 12/08/16 07:19 72 16 97 Room Air 12/08/16 07:00 36.6 70 18 116/79 96 Room Air 12/08/16 06:11 36.7 73 16 114/74 97 Room Air 12/07/16 23:40 Room Air 12/07/16 23:10 36.4 77 16 100/67 98 Room Air Notes Mental Status: alert / awake / arousable, participated in evaluation Pt Amnestic to Procedure: Yes Nausea / Vomiting: adequately controlled Pain: adequately controlled Airway Patency, RR, SpO2: stable & adequate BP & HR: stable & adequate Hydration State: stable & adequate Anesthetic Complications: no major complications apparent
[2016-12-08] MEDS ORDERED: CHOLECALCIFEROL 1000 INTER.UNIT TAB PO SCH (09:00)
[2016-12-08] MEDS: LEVOFLOXACIN 750 MG TAB PO SCH (11:05)
[2016-12-08 11:43] VITALS: BP 116/79; PULSE 72; TEMP 36.6; O2SAT 97
[2016-12-08] MEDS: VENLAFAXINE HCL XR 75 MG CAPXR PO SCH (11:47)
--- NOTE | 2016-12-08 12:45 | Progress Note ---
Medicine Progress Note Date & Time of Visit: Dec 08, 2016 at 12:26. Subjective Pt was seen and examined Sitting in chair comfortable with no distress Pt said that she feels fine she said that she did better today during PT She said that her pain improved Denies any chest pain, palpitation, dizziness and SOB she said that she had a BM this morning. Objective Last 8 Hrs Date Time Temp Pulse Resp B/P Pulse Ox O2 Delivery O2 Flow Rate FiO2 12/08/16 11:43 36.6 72 16 97 Room Air 12/08/16 07:56 Room Air 12/08/16 07:19 72 16 97 Room Air 12/08/16 07:00 36.6 70 18 116/79 96 Room Air 12/08/16 06:11 36.7 73 16 114/74 97 Room Air Physical Exam: General- no acute distress Head- atraumatic Eyes- PERRL, EOMI ENT- oropharynx clear Neck- supple, no JVD Lungs- clear to auscultation and percussion Heart- regular rhythm; no murmur Abdomen- normal bowel sounds, soft, nontender Extremities- no calf tenderness Neuro- alert, oriented x 3; PERRL, EOMI Skin- warm & dry Laboratory Results: Last 24 Hours Test 12/08/16 05:10 White Blood Count 8.86 K/uL Red Blood Count 3.34 M/uL Hemoglobin 10.2 g/dL Hematocrit 31.6 % Mean Corpuscular Volume 94.6 fL Mean Corpuscular Hemoglobin 30.5 pg Mean Corpuscular Hemoglobin Concent 32.3 g/dl RDW Standard Deviation 53.5 fL RDW Coefficient of Variation 15.6 % Platelet Count 249 K/uL Mean Platelet Volume 8.7 fL Sodium Level 138 mmol/L Potassium Level 3.9 mmol/L Chloride Level 105 mmol/L Carbon Dioxide Level 22 mmol/L Anion Gap 11.0 mmol/L Blood Urea Nitrogen 14 mg/dl Creatinine 0.91 mg/dl Est Creatinine Clear Calc Drug Dose 64.1 ml/min Estimated GFR () 81.7 Estimated GFR (Non- 70.5 BUN/Creatinine Ratio 15.8 Random Glucose 89 mg/dl Calcium Level 8.7 mg/dl Diagnostic Imaging: RIGHT HIP CT CT DOSE: 658.90 mGy.cm HISTORY: right hip pain Right TECHNIQUE: Multiaxial CT images of the right hip were performed and reformatted in the sagittal and coronal plane without the use of contrast. COMPARISON: Right hip 12/02/2016. FINDINGS: There is an acute nondisplaced right femoral neck fracture. Old posttraumatic and postoperative changes within the right hemipelvis. Posterior fusion hardware within the lumbar sacral region. No dislocation within the right hip. IMPRESSION: An acute nondisplaced transcervical fracture through the right femoral neck. No dislocation. CHEST ONE VIEW PORTABLE HISTORY: cough, wheeze COMPARISON: Chest 11/18/2016. FINDINGS: The heart is normal in size. Small hiatus hernia. The upper lungs and are clear. Old, healed right anterior rib fractures. Left basilar linear densities. No pleural effusions. No pneumothorax. Cervical spinal fusion hardware. IMPRESSION: Left basilar linear densities. This may represent atelectasis or pneumonia. RIGHT PELVIS/UNILATERAL HIP 2-3VIEWS CLINICAL HISTORY: Right Hip Fracture Right COMPARISON STUDY: Right hip CT 12/05/2016. FINDINGS: Redemonstration of the nondisplaced transcervical right femoral neck fracture. No dislocation. Old post traumatic changes within the right hemipelvis and left iliac wing. Posterior fusion hardware at the lumbar sacral spine. Old, healed left pubic ring fractures. IMPRESSION: Redemonstration of the nondisplaced transcervical right femoral neck fracture. Assessment & Plan Right hip pain CT of right hip showed an acute nondisplaced transcervical fracture through the right femoral neck. No dislocation. POD #2 for Open Reduction Internal Fixation Cannulated Screws of Right Hip Ortho recommends touch toe weightbearing for now on the right extremity Continue pain management Approved to go for rehab placement to [facility] incentive spirometry Hgb 10.2 Continue PT/OT ? Pneumonia Chest xray showed Left basilar linear densities recently treated with bronchitis afebrile, no elevated WBC Continue levaquin 750mg on day 3, will discharge on it to complete the course Opioid induce Constipation she had a BM this morning continue miralax and senokot S relistor x1 was given yesterday Low Vit D Vit D 50,000 unit given today Continue Vit D supplement COPD continue breathing treatment and Brovana stable Tobacco abuse Counseling on smoking cessation Hypertension Stable Hx PSVT S/P ablation on NSR Chronic pain on narcotics PA prescription drug monitor reviewed Bipolar disorder stable. Hypokalemia K 3.8 Will monitor BMP DVT px On Lovenox sub Code status Full code DISPOSITION Discharge to [facility] for Rehab today. Case discussed with Dr. mcmillan at [phone] Please schedule follow up appointment with your primary care physician once discharge from rehab. Consultants: ortho PT/OT Procedures: Open Reduction Internal Fixation Cannulated Screws of Right Hip Current Inpatient Medications: Current Inpatient Medications Medications (Trade) Dose Ordered Sig/Jennifer Route Start Time Stop Time Status Last Admin Dose Admin Albuterol/ Ipratropium (Duoneb) 3 ml Q2H PRN INH 12/05/16 06:15 01/04/17 06:14 Ketorolac Tromethamine (Toradol Inj) 30 mg Q6H PRN IV 12/05/16 06:15 12/10/16 06:14 12/08/16 11:10 30 MG Enoxaparin Sodium (Lovenox Inj) 40 mg QAM SQ 12/05/16 09:00 01/04/17 08:59 12/08/16 08:16 40 MG Acetaminophen (Tylenol Tab) 650 mg Q4H PRN PO 12/05/16 06:15 01/04/17 06:14 Amlodipine Besylate (Norvasc Tab) 2.5 mg DAILY PRN PO 12/05/16 06:15 01/04/17 06:14 Aripiprazole (Abilify Tab) 30 mg HS PO 12/05/16 21:00 01/04/17 20:59 12/07/16 20:49 30 MG Baclofen (Lioresal Tab) 10 mg TID PO 12/05/16 09:00 01/04/17 08:59 12/08/16 08:13 10 MG Buspirone HCl (BusPAR TAB) 15 mg BID PO 12/05/16 09:00 01/04/17 08:59 12/08/16 08:09 15 MG Cetirizine HCl (zyrTEC TAB) 10 mg DAILY PO 12/05/16 09:00 01/04/17 08:59 12/08/16 08:15 10 MG Docusate Sodium (coLACE CAP) 100 mg BID PRN PO 12/05/16 06:15 01/04/17 06:14 Fentanyl (Duragesic Patch) 25 mcg Q3D@1830 TD 12/06/16 18:30 12/20/16 18:29 12/06/16 18:20 25 MCG Ferrous Sulfate (Feosol Tab) 325 mg QAM PO 12/05/16 09:00 01/04/17 08:59 12/08/16 08:11 325 MG Fluticasone Propionate (Flonase Nasal [place]) 1 sprays BID M[place]ORIE 12/05/16 09:00 01/04/17 08:59 12/08/16 08:09 1 SPRAYS Folic Acid (Folvite Tab) 1 mg QAM PO 12/05/16 09:00 01/04/17 08:59 12/08/16 08:11 1 MG Lamotrigine (Lamictal Tab) 25 mg BID PO 12/05/16 09:00 01/04/17 08:59 12/08/16 08:12 25 MG Lamotrigine (Lamictal Tab) 100 mg BID PO 12/05/16 09:00 01/04/17 08:59 12/08/16 08:12 100 MG Lorazepam (Ativan Tab) 2 mg BID PO 12/05/16 09:00 01/04/17 08:59 12/08/16 08:22 2 MG Metoclopramide HCl (Reglan Tab) 5 mg ACHS PO 12/05/16 08:00 01/04/17 07:59 12/08/16 11:47 5 MG Metoprolol Succinate (Toprol Xl Tab) 25 mg DAILY PO 12/05/16 09:00 01/04/17 08:59 12/08/16 08:14 25 MG Mirabegron (Myrbetriq Er) 50 mg QAM PO 12/05/16 09:00 01/04/17 08:59 12/08/16 08:13 50 MG Multivitamins/ Minerals (Multivitamin W/ Minerals Tab) 1 tab QAM PO 12/05/16 09:00 01/04/17 08:59 12/08/16 08:13 1 TAB Topiramate (Topamax Tab) 100 mg BID PO 12/05/16 09:00 01/04/17 08:59 12/08/16 08:14 100 MG Venlafaxine HCl (effeXOR EXTENDED REL CAP) 75 mg DAILY@1200 PO 12/05/16 12:00 01/04/17 11:59 12/08/16 11:47 75 MG Venlafaxine HCl (effeXOR EXTENDED REL CAP) 300 mg QAM PO 12/05/16 09:00 01/04/17 08:59 12/08/16 08:11 300 MG Zolpidem Tartrate (Ambien Tab) 10 mg HS PRN PO 12/05/16 06:15 01/04/17 06:14 12/07/16 22:05 10 MG Azelastine HCl (Astelin Nasal [place]) 1 sprays TID NA 12/05/16 09:00 01/04/17 08:59 12/08/16 08:08 1 SPRAYS Pantoprazole Sodium (Protonix Tab) 40 mg DAILY PO 12/05/16 09:00 01/04/17 08:59 12/08/16 08:13 40 MG Polyethylene (Miralax Powder Packet) 17 gm DAILY PRN PO 12/05/16 06:15 01/04/17 06:14 12/07/16 09:06 17 GM Ranitidine HCl (zANTac TAB) 300 mg QAM PO 12/05/16 09:00 01/04/17 08:59 12/08/16 08:15 300 MG Albuterol/ Ipratropium (Duoneb) 3 ml Q2H PRN INH 12/05/16 06:15 01/04/17 06:14 Arformoterol Tartrate (Brovana 15MCG/ 2ML Neb Soln) 15 mcg BIDR INH 12/05/16 08:00 01/04/17 07:59 12/08/16 07:19 15 MCG Levofloxacin 1 ea 1 ea UD PRN N/A 12/06/16 09:00 12/11/16 08:59 Lorazepam/Syringe (Ativan Inj/ Syringe) 1 ml @ 1 mls/min Q4H PRN IV 12/05/16 06:45 01/04/17 06:44 12/06/16 19:36 1 MLS/MIN Levofloxacin (Levaquin Tab) 750 mg DAILY@11 PO 12/06/16 11:00 12/12/16 10:59 12/08/16 11:05 750 MG Miscellaneous (Fentanyl Patch Remove & Waste) 1 ea Q3D@1829 N/A 12/06/16 18:29 01/05/17 18:28 12/06/16 18:21 1 EA Miscellaneous Information (Check Fentanyl Patch Placement) 1 ea QS N/A 12/05/16 16:00 01/04/17 15:59 12/08/16 08:07 1 EA Sulindac (Clinoril Tab) 150 mg BID PO 12/06/16 09:00 01/05/17 08:59 12/08/16 08:10 150 MG Senna/Docusate Sodium (Senokot S Tab) 1 tab BID PRN PO 12/06/16 11:45 01/05/17 11:44 12/07/16 20:47 1 TAB Oxycodone HCl (Roxicodone Immediate Rel Tab) 5 mg Q4HWA PRN PO 12/06/16 12:00 12/20/16 11:59 12/08/16 09:40 5 MG Ergocalciferol (Vitamin D Cap) 50,000 interunit Storey@0900 PO 12/07/16 09:00 01/06/17 08:59 12/07/16 10:58 50,000 INTERUNIT Cholecalciferol (Vitamin D Tab) 2,000 inter.unit DAILY PO 12/08/16 09:00 01/07/17 08:59 12/08/16 08:14 2,000 INTER.UNIT Ondansetron HCl (Zofran Inj) 4 mg Q8 PRN IV 12/07/16 18:45 01/06/17 18:44 12/08/16 03:44 4 MG
[2016-12-08] MEDS ORDERED: LVQ750 PO (13:21)
[2016-12-08] MEDS ORDERED: FENT25DI10 TD (13:21)
[2016-12-08] MEDS ORDERED: VTMD PO (13:21)
--- NOTE | 2016-12-08 13:29 | Discharge Instructions ---
Discharge Instructions Admission Reason for Admission: Hip Fracture Discharge Discharge Diagnosis / Problem: Right Hip fracture, low Vit D, Opiod induce constipation, Pnemonia, COPD Discharge Goals Goal(s): Decrease discomfort, Improve function, Improve disease control Activity Recommendations Activity Limitations: as noted below (Ortho recommends touch toe weightbearing for now on the right extremity) . Instructions / Follow-Up Instructions / Follow-Up Please schedule follow up appointment with your primary care provider once discharge from Rehab Schedule follow up appointment with ortho Continue PT/OT Complete antibiotic course Current Hospital Diet Patient's current hospital diet: Regular Diet Discharge Diet Recommended Diet: Regular Diet Procedures Procedures Performed: Open Reduction Internal Fixation Canunulated Screws, Right Hip Pending Studies Studies pending at discharge: no Medical Emergencies . Who to Call and When: Medical Emergencies: If at any time you feel your situation is an emergency, please call 911 immediately. . Non-Emergent Contact Non-Emergency issues call your: Primary Care Provider Call Non-Emergent contact if: your pain is not controlled, you have any medication questions . . "Provider Documentation" section prepared by Gage Miranda. VTE Core Measure Inpt VTE Proph given/why not?: Enoxaparin (Lovenox)SQ
--- NOTE | 2016-12-09 09:17 | Discharge Summary ---
Discharge Summary Admission Date: Dec 05, 2016 at 05:28 Discharge Date: Dec 08, 2016 Discharge Disposition: Rehab Principal Diagnosis: Right non displaced hip fracture Secondary Diagnoses/Problems: Pneumonia Low vit D Opioid induce Constipation COPD Tobacco abuse Chronic pain on narcotic Procedures: Open Reduction Internal Fixation Cannulated Screws of Right Hip Consultations: ortho PT/OT Medication Reconciliation New Medications: Ergocalciferol (Vitamin D) 50,000 Interunit Cap 00266 INTERUNIT PO Storey@0900 for 12 Days, CAP Levofloxacin (Levofloxacin) 750 Mg Tab 750 MG PO DAILY@11 for 2 Days, TAB Continued Medications: Acetaminophen (Tylenol Arthritis Ext Rel) 650 Mg Cplt 650 MG PO Q8H PRN for Pain Albuterol Hfa (Ventolin Hfa) 200 Puffs/90548 Mcg Aers 2 PUFFS INH QID PRN for SOB/Wheezing Albuterol Sulfate (Proair Respiclick) 108 Mcg/Act Aer 1 PUFF INH TID Amlodipine (Norvasc) 2.5 Mg Tab 2.5 MG PO DAILY PRN for HTN Arformoterol Tartrate (Brovana) 15 Mcg/2 Ml Neb 15 MCG INH BID PRN for SOB/Wheezing Aripiprazole (Abilify) 30 Mg Tab 30 MG PO HS Azelastine Hcl (Astelin Nasal [place]) 200 Sprays/30 Ml [place] 2 SPRAYS NA TID Baclofen (Lioresal) 10 Mg Tab 10 MG PO TID Buspirone Hcl (Buspar) 15 Mg Tab 15 MG PO BID Cetirizine (Zyrtec) 10 Mg Tab 10 MG PO DAILY Dexlansoprazole (Dexilant) 60 Mg Cap 60 MG PO DAILY Docusate Sodium (Docusate Sodium) 100 Mg Cap 100 MG PO BID PRN for Constipation Famciclovir (Famvir) 500 Mg Tab 1000 MG PO BID PRN for BREAKOUTS TAKE FOR ONE DAY FOR RECURRENT HERPES SIMPLEX. Fentanyl (Duragesic) 25 Mcg/Hr Dis 25 MCG TD Q72H for 2 Days (This prescription has been renewed) Ferrous Sulfate (Ferrous Sulfate) 325 Mg Tab 325 MG PO QAM Fluticasone Propionate (Nasal) (Flonase Allergy Relief) 50 Mcg/Act Spr 2 SPRAYS MALLORIE BID Folic Acid (Folvite) 1 Mg Tab 1 MG PO QAM Furosemide (Lasix) 20 Mg Tab 20 MG PO DAILY PRN for SWELLING/WEIGHT GAIN Lamotrigine (Lamictal) 25 Mg Tab 25 MG PO BID TAKE WITH 100MG= 125MG TWICE DAILY Lamotrigine (Lamictal) 100 Mg Tab 100 MG PO BID TAKE WITH 25MG = 125MG TWICE DAILY Lorazepam (Ativan) 2 Mg Tab 2 MG PO BID Metoclopramide HCl (Metoclopramide HCl) 5 Mg Tab 5 MG PO ACHS Metoprolol Succinate (Toprol Xl) 25 Mg Tabcr 25 MG PO DAILY Mirabegron (Myrbetriq Er) 50 Mg Tab 50 MG PO QAM Multiple Vitamins W/ Minerals (Centrum Adults) 1 Tab Tab 1 TAB PO QAM Mupirocin (Bactroban 2% Oint) 66 Appln/22 Gm Oint 1 APPLN EXT TID PRN for DRYNESS APPLY TO INSIDE OF NOSE Ondansetron Hcl (Zofran) 4 Mg Tab 4 MG SL Q8 PRN for Nausea Polyethylene Glycol 3350 (Miralax) 1 Pow Pow 17 GM PO DAILY PRN for Constipation Ranitidine (Zantac) 300 Mg Tab 300 MG PO QAM Sulindac (Clinoril) 150 Mg Tab 150 MG PO BID TAKE WITH FOOD Topiramate (Topamax) 100 Mg Tab 100 MG PO BID Venlafaxine Hcl (Effexor Xr) 75 Mg Cap 75 MG PO DAILY@ NOON Venlafaxine Hcl (Effexor Xr) 150 Mg Cap 300 MG PO QAM Zolpidem Tartrate (Zolpidem Tartrate) 10 Mg Tab 10 MG PO HS Admission Information HPI (per Admitting provider): Medical history significant for hypertension, SVT sp ablation, COPD, ongoing tobacco abuse. GERD, gastroparesis, chronic pain on narcotics, mood disorder, chronic HCV sp tx , past alcohol abuse, history of MRSA, history of C. dif. Recent elective confinement at [facility] last January 2016 for SVT sp ablation. Few weeks ago the patient had a fall after slipping on the ice, landing on her bottom. she did not have any concerning pain at that time. Three days she develops achy R hip pain, worse with moving around. No chest pain, no sob, no fever, no chills. Seen at the Emergency Room where she had a pelvis xray done that showed postop changes and constipation. she was discharged from the ER. 3 days later Patient returned to the Emergency Room because of intractable R hip pain. she had a Right hip CT pelvis done that showed an acute nondisplaced transcervical fracture through the right femoral neck. No dislocation. Physical Exam (per Admitting): PHYSICAL EXAMINATION: VITAL SIGNS: Blood pressure was noted to be 116/76, pulse rate 84, RR 26, sats 95 on room air. GENERAL: Noted to be slightly uncomfortable, no respiratory distress. Looks older than stated age. SKIN: normal color HEENT: Alden palp conjunctivae. Dry mucosa. NECK: No JVD. Supple. CHEST: Occasional wheeze, especially left. HEART: RRR. ABDOMEN: Soft EXT : tenderness right hip. NEUROLOGIC: No gross focality. Hospital Course Right hip pain CT of right hip showed an acute nondisplaced transcervical fracture through the right femoral neck. No dislocation. POD #2 for Open Reduction Internal Fixation Cannulated Screws of Right Hip Ortho recommends touch toe weightbearing for now on the right extremity Continue pain management Approved to go for rehab placement to [facility] today incentive spirometry Hgb 10.2 Continue PT/OT ? Pneumonia Chest xray showed Left basilar linear densities recently treated with bronchitis afebrile, no elevated WBC Continue levaquin 750mg on day 3, will discharge on it to complete the course Opioid induce Constipation she had a BM this morning continue miralax and senokot S relistor x1 was given yesterday Low Vit D Vit D 50,000 unit given today Continue Vit D supplement COPD continue breathing treatment and Brovana stable Tobacco abuse Counseling on smoking cessation Hypertension Stable Hx PSVT S/P ablation on NSR Chronic pain on narcotics PA prescription drug monitor reviewed Bipolar disorder stable. Hypokalemia K 3.8 Will monitor BMP DVT px On Lovenox sub Code status Full code DISPOSITION Discharge to [facility] for Rehab today. Case discussed with Dr. mcmillan at [phone] Please schedule follow up appointment with your primary care physician once discharge from rehab. Total time spent on discharge = 35 minutes This includes examination of the patient, discharge planning, medication reconciliation, and communication with other providers. Discharge Instructions Discharge Instructions Admission Reason for Admission: Hip Fracture Discharge Discharge Diagnosis / Problem: Right Hip fracture, low Vit D, Opiod induce constipation, Pnemonia, COPD Discharge Goals Goal(s): Decrease discomfort, Improve function, Improve disease control Activity Recommendations Activity Limitations: as noted below (Ortho recommends touch toe weightbearing for now on the right extremity) . Instructions / Follow-Up Instructions / Follow-Up Please schedule follow up appointment with your primary care provider once discharge from Rehab Schedule follow up appointment with ortho Continue PT/OT Complete antibiotic course Current Hospital Diet Patient's current hospital diet: Regular Diet Discharge Diet Recommended Diet: Regular Diet Procedures Procedures Performed: Open Reduction Internal Fixation Canunulated Screws, Right Hip Pending Studies Studies pending at discharge: no Medical Emergencies . Who to Call and When: Medical Emergencies: If at any time you feel your situation is an emergency, please call 911 immediately. . Non-Emergent Contact Non-Emergency issues call your: Primary Care Provider Call Non-Emergent contact if: your pain is not controlled, you have any medication questions . . "Provider Documentation" section prepared by Gage Miranda. VTE Core Measure Inpt VTE Proph given/why not?: Enoxaparin (Lovenox)SQ Additional Copies To [facility] SystemSeth Michael, D.O.
--- NOTE | 2016-12-10 13:37 | EDITING REQUIRED CODING QUERY ---
CODING QUERY Dear Dr. Ziegler, To promote full compliance with coding requirements relating to patient care, provider participation is requested in all cases of surveyor geodetic uncertainty. Please assist us with the question(s) below: In responding to this query, please exercise your independent professional judgement. The fact that a question is asked does not imply that any particular answer is desired or expected. We appreciate your clarification on this issue. Coding Question(s): Hip fracture Question #1 Hip Fracture (X ) Right nondisplaced ( ) Right displaced Question #2 Type of fracture (X ) Traumatic ( ) Pathologic - Osteoporosis ( ) Other - Please explain: Medical documentation: A month or two ago the patient had a fall after slipping on the ice, landing on her bottom. No concerning pain at that time. Three days' hx achy R hip pain, worse with moving around. No chest pain, no sob, no fever, no chills. Seen at the Emergency Room. Plain x-ray did show postop changes and constipation. Patient sent home. Physician's Response(s): Thank you for your time. Mickie Lofton, [facility] Principal Diagnosis: "_that condition established after study, to be chiefly responsible for occasioning the admission of the patient to the hospital for care." Co-Existing Principal Diagnosis: "_when two or more diagnoses equally meet the criteria for principal diagnosis as determined by the circumstances of admission, diagnostic work up, and/or therapy provided, and the Alphabetic Index, Tabular List, or another coding guideline does not provide sequencing direction, any one of the diagnoses may be sequenced first." "When the physician has documented what appears to be a current diagnosis in the body of the record, but has not included the diagnosis in the final diagnostic statement, the physician should be asked whether the diagnosis should be added." (Source Coding Clinic 2 QTR90. p3-4)
[2017-01-07] MEDS ORDERED: MONT1TAB5 PO (11:19)
[2017-01-12] MEDS ORDERED: ATV/1 PO (13:23)
[2017-01-12] MEDS ORDERED: HYDR-5688 PO (13:23)
[2017-01-12] MEDS ORDERED: FENT25DI10 TD (13:23)
[2017-01-12] MEDS ORDERED: DOCU-94 PO (15:05)
[2017-02-10] MEDS ORDERED: TOPI100T20 PO (09:36)
[2017-02-10] MEDS ORDERED: MULT-506 PO (09:36)
[2017-02-10] MEDS ORDERED: CHOL1TAB63 PO (09:36)
[2017-02-10] MEDS ORDERED: ONDA8TAB6 PO (09:36)
[2017-02-10] MEDS ORDERED: DEXL60CA4 PO (09:36)
[2017-02-10] MEDS ORDERED: EFF75 PO (09:36)
[2017-02-10] MEDS ORDERED: METO1TAB54 PO (09:36)
[2017-02-10] MEDS ORDERED: ATV/2 PO (09:36)
[2017-02-10] MEDS ORDERED: ALUMCHW2 PO (09:36)
[2017-02-10] MEDS ORDERED: CALC500C70 PO (09:36)
[2017-02-10] MEDS ORDERED: LAMO100T16 PO (09:36)
[2017-02-10] MEDS ORDERED: METO25TA3 PO (09:36)
[2017-02-10] MEDS ORDERED: VENL150C56 PO (09:36)
[2017-02-10] MEDS ORDERED: FERR325T PO (09:36)
[2017-02-10] MEDS ORDERED: MIRA1TAB3 PO (09:36)
[2017-02-10] MEDS ORDERED: FLUT0.15 NAE (09:36)
[2017-02-10] MEDS ORDERED: ZOLP10TA PO (09:36)
[2017-02-10] MEDS ORDERED: BISA10SU3 PR (09:36)
[2017-02-10] MEDS ORDERED: CETI10TA84 PO (09:36)
[2017-02-10] MEDS ORDERED: MONT1TAB3 PO (09:36)
[2017-02-10] MEDS ORDERED: BUSP-8 PO (09:36)
[2017-02-10] MEDS ORDERED: FENT25DI10 EXT (09:36)
[2017-02-10] MEDS ORDERED: NYSTATIN POWDER EXT (09:36)
[2017-02-10] MEDS ORDERED: FURO-85 PO (09:36)
[2017-02-10] MEDS ORDERED: LAMO25TA PO (09:36)
[2017-02-10] MEDS ORDERED: RANI300T2 PO (09:36)
[2017-02-10] MEDS ORDERED: CYCL5TAB PO ×2 (09:36)
[2017-02-10] MEDS ORDERED: POLY335019 PO (09:36)
[2017-02-10] MEDS ORDERED: FOLI1TAB7 PO (09:36)
[2017-02-10] MEDS ORDERED: CLN150 PO (09:36)
[2017-02-10] MEDS ORDERED: ARIP30TA3 PO (09:36)
[2017-03-27] MEDS ORDERED: AMOX875T PO (09:37)
[2017-03-27] MEDS ORDERED: POLY335019 PO (09:37)
[2017-03-27] MEDS ORDERED: AZEL30SP NAE (09:37)
[2017-03-27] MEDS ORDERED: LAMO150T32 PO (09:37)
[2017-03-27] MEDS ORDERED: POTA10CA28 PO (09:37)
[2017-03-27] MEDS ORDERED: BACL10TA PO (09:37)
[2017-03-27] MEDS ORDERED: [UNRECOGNIZED DRUG - CODE] RE (09:37)
[2017-04-12] MEDS ORDERED: ASPEC325 PO (08:28)
[2017-04-12] MEDS ORDERED: HYDR-5688 PO (08:28)
[2017-04-21] MEDS ORDERED: CALC200T (15:05)
[2017-06-22] MEDS ORDERED: DIVA500T59 PO (07:45)
[2017-07-27] MEDS ORDERED: CYCL10TA6 PO (08:01)
== END 2016-12-08 15:08 | DRG 480 ==
LOC: ENRESERVTM → ENRESERVDT → EDBD 03:40 → C.EDB 03:41 → C.3E 05:28 → EDBEDREQ 05:45
PROVIDERS: ADMIT Internal Medicine; ATTEND Internal Medicine
PROC: 0QS634Z Reposition Right Upper Femur with Internal Fixation Device, Percutaneous Approach (ICD-10-PCS; principal; 2016-12-05 12:00)
DX: S72.001A Fracture of unspecified part of neck of right femur, initial encounter for closed fracture (principal); J18.9 Pneumonia, unspecified organism; J44.0 Chronic obstructive pulmonary disease with (acute) lower respiratory infection; I47.1 Supraventricular tachycardia; F31.9 Bipolar disorder, unspecified; E87.6 Hypokalemia; M81.0 Age-related osteoporosis without current pathological fracture; K21.9 Gastro-esophageal reflux disease without esophagitis; K59.00 Constipation, unspecified; F17.210 Nicotine dependence, cigarettes, uncomplicated; J40 Bronchitis, not specified as acute or chronic; G89.29 Other chronic pain; M54.5 Low back pain; M54.2 Cervicalgia; R51 Headache; F41.9 Anxiety disorder, unspecified; I10 Essential (primary) hypertension; K44.9 Diaphragmatic hernia without obstruction or gangrene; B18.2 Chronic viral hepatitis C; T40.2X5A Adverse effect of other opioids, initial encounter; E55.9 Vitamin D deficiency, unspecified; Z86.79 Personal history of other diseases of the circulatory system; N39.41 Urge incontinence; F10.21 Alcohol dependence, in remission; Z87.19 Personal history of other diseases of the digestive system; G62.9 Polyneuropathy, unspecified; Z86.14 Personal history of Methicillin resistant Staphylococcus aureus infection; Z86.19 Personal history of other infectious and parasitic diseases; Z98.1 Arthrodesis status; Z79.899 Other long term (current) drug therapy; Z79.891 Long term (current) use of opiate analgesic; B19.20 Unspecified viral hepatitis C without hepatic coma; K31.84 Gastroparesis; F17.200 Nicotine dependence, unspecified, uncomplicated; Z87.820 Personal history of traumatic brain injury; Z98.51 Tubal ligation status; Z98.890 Other specified postprocedural states; Z87.81 Personal history of (healed) traumatic fracture; Z88.8 Allergy status to other drugs, medicaments and biological substances; Z83.3 Family history of diabetes mellitus; Z83.79 Family history of other diseases of the digestive system; Z82.49 Family history of ischemic heart disease and other diseases of the circulatory system; Z84.1 Family history of disorders of kidney and ureter; W00.0XXA Fall on same level due to ice and snow, initial encounter

== ENCOUNTER 2017-01-09 17:41 | Inpatient (IN) | payer OTHER ==
[~2017-01-09] VITALS: Ht 160 cm; Wt 79.0 kg
[~2017-01-09 17:41] MED LIST changes: -ALBU18002 INH; +ARFO15NE INH; +BCTROWC EXT; -BCTROWC NAE; -BRVIN INH; -GLYC2SUP PR; -HYDR-5688 PO; +MONT1TAB5 PO; -POLY335019 PO; -PROM25TA9 PO; +VTMD PO
[2017-01-09] MEDS ORDERED: OXYCODONE HCL IR 5 MG TAB (IMMEDIATE RELEASE) PO STA (18:11)
--- NOTE | 2017-01-09 18:17 | EMERGENCY ROOM VISIT NOTE ---
History Report prepared by Tonya: Eugenia Dmaon Under the Supervision of: Dr. Thor Knight D.O. First contact with patient: 18:07 Chief Complaint: HIP PAIN Stated Complaint: HIP PAIN, FALL History of Present Illness The patient is a 56 year old female who presents to the Emergency Room with complaints of constant pain to the right hip following a fall that occurred 90 minutes prior to arrival. The patient states that was walking and felt her hip pop and then fell to the ground. In November the patient had Dr. Ziegler put screws into her hip from injuries caused by a fall. She is still recovering from the surgery. The patient is experiencing pain and tingling around the leg. She notes muscle spasms around the hip have been occurring intermittently since the fall. She did take pain medication before arrival. Source of History: patient Onset: 90 minutes [employer] Position: other (right hip) Timing: constant Note: Patient is experiencing leg pain and tingling. She is also experiencing hip spasms. Review of Systems See HPI for pertinent positives & negatives. A total of 10 systems reviewed and were otherwise negative. Past Medical & Surgical Medical Problems: (1) Anxiety (2) Bipolar disorder (3) Bipolar Disorder, Unspecified (4) Cervicalgia (5) Chronic alcoholism in remission (6) Chronic back pain (7) Chronic headache (8) Chronic hepatitis C (9) Chronic obstructive lung disease (10) Chronic urinary urge incontinence (11) Closed head injury (12) Depression (13) Gastroesophageal reflux disease (14) Gastroparesis (15) History of aspiration pneumonia (16) History of Clostridium difficile colitis (17) History of drug abuse (18) History of sepsis (19) History of supraventricular tachycardia (20) Lumbago (21) Osteoarthritis (22) Osteoporosis (23) Pancreatitis (24) PTSD (post-traumatic stress disorder) (25) SVT (supraventricular tachycardia) (26) Ulnar neuropathy Surgical Problems: (1) Bladder Repair (2) H/O colonoscopy (3) H/O cystoscopy (4) H/O esophagogastroduodenoscopy (5) H/O sinus surgery (6) History of hip surgery (7) Right Tibia/Fibula Repair (8) S/P cervical spinal fusion (9) s/p colonoscopy (10) s/p cystoscopy (11) s/p EGD (12) S/p esophagogastric fundoplasty (13) s/p laparoscopic fundoplication hiatal hernia (14) S/p lumbar decompression/fusion (15) s/p reconstruction hip socket (16) s/p tonsillectomy (17) S/P tonsillectomy and adenoidectomy (18) S/P tubal ligation (19) s/p tubal ligation Family History Diabetes mellitus FATHER GRANDMOTHER FH: colon cancer GRANDMOTHER Gallbladder disease Heart disease Hypertension FATHER MOTHER Kidney disease Kidney stones Social History Smoking Status: Current Every Day Smoker Alcohol Use: none Drug Use: other Marital Status: Housing Status: lives with family Occupation Status: disabled Current/Historical Medications Scheduled Aripiprazole (Abilify), 30 MG PO QAM Azelastine Hcl (Astelin Nasal [place]), 2 SPRAYS NA TID Baclofen (Lioresal), 10 MG PO TID Buspirone Hcl (Buspar), 15 MG PO BID Cetirizine (Zyrtec), 10 MG PO QAM Dexlansoprazole (Dexilant), 60 MG PO DAILY Enoxaparin (Enoxaparin Sodium), 40 MG SQ HS Ergocalciferol (Vitamin D), 50,000 INTERUNIT PO Storey@0900 Fentanyl (Duragesic), 25 MCG TD Q72H Ferrous Sulfate (Ferrous Sulfate), 325 MG PO QAM Fluticasone Propionate (Nasal) (Flonase Allergy Relief), 2 SPRAYS MALLORIE BID Folic Acid (Folvite), 1 MG PO QAM Lamotrigine (Lamictal), 25 MG PO BID Lamotrigine (Lamictal), 100 MG PO BID Lorazepam (Ativan), 2 MG PO HS Metoclopramide HCl (Metoclopramide HCl), 5 MG PO ACHS Metoprolol Succinate (Toprol Xl), 25 MG PO QAM Mirabegron (Myrbetriq Er), 50 MG PO QAM Montelukast Sodium (Montelukast Sodium), 1 TAB PO QPM Multiple Vitamins W/ Minerals (Centrum Adults), 1 TAB PO QAM Ranitidine (Zantac), 300 MG PO QAM Sulindac (Clinoril), 150 MG PO BID Topiramate (Topamax), 100 MG PO BID Venlafaxine Hcl (Effexor Xr), 75 MG PO DAILY@ NOON Venlafaxine Hcl (Effexor Xr), 300 MG PO QAM Zolpidem Tartrate (Zolpidem Tartrate), 10 MG PO HS Scheduled PRN Acetaminophen (Tylenol Arthritis Ext Rel), 650 MG PO Q8H PRN for Pain Albuterol Hfa (Ventolin Hfa), 2 PUFFS INH QID PRN for SOB/Wheezing Amlodipine (Norvasc), 2.5 MG PO DAILY PRN for HTN Arformoterol Tartrate (Brovana), 15 MCG INH BID PRN for SOB/Wheezing Docusate Sodium (Docusate Sodium), 100 MG PO BID PRN for Constipation Famciclovir (Famvir), 1,000 MG PO BID PRN for BREAKOUTS Furosemide (Lasix), 20 MG PO DAILY PRN for SWELLING/WEIGHT GAIN Hydrocodone/Acetaminophen 5MG/325MG ([place]ubert 5MG/325MG), 1 TABLET PO Q6 PRN for Pain Lorazepam (Ativan), 1 MG PO BID PRN for Anxiety/Agitation Mupirocin (Bactroban 2% Oint), 1 APPLN EXT TID PRN for DRYNESS Ondansetron Hcl (Zofran), 4 MG SL Q8 PRN for Nausea Allergies Coded Allergies: Hydroxyzine (Verified Allergy, Severe, THROAT CONSTRICTS/CAN NOT VOID, ) Clarithromycin (Verified Adverse Reaction, Intermediate, vomiting, 01/09/17 ) Chlorpromazine (Verified Adverse Reaction, Unknown, LIGHTHEADED DIZZY, ) Lisinopril (Verified Adverse Reaction, Unknown, Cough, 01/09/17) Reported by PT. Uncoded Allergies: VISTORIL (Allergy, Unknown, DIFFICULTY URINATING, 01/07/17) Physical Exam Vital Signs Date Time Temp Pulse Resp B/P Pulse Ox O2 Delivery O2 Flow Rate FiO2 01/09/17 20:27 76 20 133/86 99 01/09/17 17:49 37.0 79 20 139/99 99 Physical Exam GENERAL: Patient is awake, alert, very anxious and uncomfortable appearing. EYES: The conjunctivae are clear. The pupils are round and reactive. EARS, NOSE, MOUTH AND THROAT: The nose is without any evidence of any deformity. Mucous membranes are moist tongue is midline NECK: The neck is nontender and supple. RESPIRATORY: Normal respiratory effort is noted there is no evidence of wheezing rhonchi or rales CARDIOVASCULAR: Regular rate and rhythm noted there no murmurs rubs or gallops normal S1 normal S2 GASTROINTESTINAL: The abdomen is soft. Bowel sounds are present in all quadrants. Abdomen is nontender BACK: No midline tenderness or or step-off noted range of motion in flexion extension as well as rotation no signs of muscle spasm noted MUSCULOSKELETAL/EXTREMITIES: There is no evidence of gross deformity full range of motion is noted in the shoulders. Tenderness over the right proximal thigh. Patient has worsening tenderness with external rotation of right hip. Diffuse tenderness distally in right leg with no deformity appreciated. SKIN: Trace pitting edema. Skin is warm and dry with pulse symmetric in both lower extremities. NEUROLOGIC: Patient is awake alert and oriented x3 strength is symmetric patellar reflexes are 2+ bilaterally Medical Decision & Procedures ER Provider Diagnostic Interpretation: Radiology results as stated below per my review and radiologist interpretation: RIGHT PELVIS/UNILATERAL HIP 2-3VIEWS CLINICAL HISTORY: Fall. COMPARISON: Pelvis and right hip radiographs December 05, 2016. FINDINGS: Multilevel lumbar spine fusion with iliac bolts is noted as well as a previous right acetabular fixation and post traumatic deformities of the left iliac crest and symphysis pubis. These findings are unchanged and chronic. 3 cannulated screws fixate the right femoral neck fracture. Alignment is unchanged since prior exam and near anatomic. No additional fractures are identified on this examination. Hardware is intact. IMPRESSION: 1. Stable postoperative findings following internal fixation of the right femoral neck fracture with 3 cannulated screws. Fracture in near anatomic alignment. 2. Unchanged appearance of the pelvis and hips since prior exam. Electronically signed by: Chuck Buenrostro M.D. 01/09/2017 7:26 PM Dictated Date/Time: 01/09/2017 7:[address] OF THE RIGHT HIP WITHOUT CONTRAST CT DOSE: 891.90 mGy.cm CLINICAL HISTORY: Right hip pain following fall. Unable to bear weight. TECHNIQUE: Axial images of the right hip were obtained without IV contrast. Sagittal and coronal reconstructions were viewed COMPARISON STUDY: CT of the right hip December 05, 2016 and pelvis and right hip radiographs performed earlier today. FINDINGS: There are postsurgical findings consistent with internal fixation of the right femoral neck fracture with 3 cannulated screws. The hardware is intact. Fracture alignment is unchanged since postoperative radiographs. The fracture is in near anatomic alignment. The fracture is mildly impacted. Of note, there has been interval development of an acute nondisplaced intertrochanteric fracture of the right femur since prior exams. No additional acute fractures are identified. Lumbar spine fusion hardware with iliac bolts are noted. There is an old right acetabular internal fixation. Old left pubic ring fractures are noted. There is mild infiltration of the subcutaneous tissues of the lateral right thigh. No pelvic hematoma is identified. IMPRESSION: 1. Acute nondisplaced intertrochanteric fracture of the right femur, new since prior CT of December 05, 2016. 2. Status post internal fixation of the right femoral neck fracture. Unchanged postoperative appearance of the right femoral neck fracture which is in near anatomic alignment. 3. Multiple old traumatic and postsurgical findings within the pelvis and hips, as described above. Electronically signed by: Chuck Buenrostro M.D. 01/09/2017 8:38 PM Dictated Date/Time: 01/09/2017 8:27 PM Laboratory Results Test 01/09/17 20:43 01/09/17 21:03 Laboratory results per my review. Medications Administered Medications (Trade) Dose Ordered Sig/Jennifer Route Start Time Stop Time Status Last Admin Dose Admin Oxycodone HCl (Roxicodone Immediate Rel Tab) 5 mg NOW STAT PO 01/09/17 18:11 01/09/17 18:13 DC 01/09/17 18:22 5 MG Hydromorphone HCl (Dilaudid Inj) 1 mg NOW STAT IM 01/09/17 19:38 01/09/17 19:40 DC 01/09/17 19:50 1 MG Ondansetron HCl (Zofran Odt) 4 mg NOW STAT PO 01/09/17 19:38 01/09/17 19:40 DC 01/09/17 19:49 4 MG ED Course 1809: The patient was evaluated in room C1. A complete history and physical examination were performed. 1810: Roxicodone Immediate Rel Tab 5 mg PO. 1937: Zofran Odt 4 mg PO, Dilaudid Inj 1 mg IM. 2042: Sodium Chloride 1,000 ml @ 200 mls/hr IV, Zofran Inj 4 mg IV, Morphine Sulfate Inj 4 mg IV. 2055: I spoke with Dr. Moran - [facility]. He would like her to be hospitalized and then have a consult with Dr. Ziegler. 2100: I discussed the patient's case with Dr. Neftali Guillen. The patient will be evaluated for further management. 2102: Upon reevaluation, the patient is hemodynamically stable. I discussed results and treatment plan with the patient. She verbalizes agreement and understanding. I spoke with Dr. Lindsay of the [facility] group. The patient will be evaluated for further management and care. Medical Decision Differential diagnosis: Etiologies such as fracture, dislocation, neurovascular compromise, compartment syndrome, soft tissue injury, as well as others were entertained. Nursing notes reviewed. The patient is a 56-year-old female who presented to the emergency department for an evaluation after a fall. The patient felt her right hip "pop" and then fell to the ground. She had isolated pain in her right hip and into her pelvis. She has a history of a recent surgery on her right hip for a subcapital hip fracture. X-rays did not reveal any definite fracture. Because of the patient's degree of pain a CAT scan was obtained which did reveal signs of a nondisplaced intertrochanteric hip fracture. I discussed the patient's radiographic studies with her. She was treated with pain medication in the emergency department. On subsequent reevaluation she was significantly improved. I discussed her case with the covering orthopedic physician of her choice. I also discussed his case with the on-call [facility] hospitalist group. They have agreed to evaluate the patient in the emergency department for further management and disposition. Consults Time Called: 2053 Consulting Physician: Dr. Luisa [facility] Returned Call: [address] Luisa [facility]. He would like her to be hospitalized and then have a consult with Dr. Ziegler. Additional Consults: Time Called: 2057 Consulted Physician: Dr. Neftali uGillen Returned Call: 2099 Additional Comments: I discussed the patient's case with Dr. Neftali Guillen. The patient will be evaluated for further management. Impression Primary Impression: Intertrochanteric fracture of right hip Scribe Attestation The scribe's documentation has been prepared under my direction and personally reviewed by me in its entirety. I confirm that the note above accurately reflects all work, treatment, procedures, and medical decision making performed by me. Departure Information Dispostion Being Evaluated By Hospitalist Referrals Jerome Murillo M.D. (PCP) Problem Qualifiers Primary Impression: Intertrochanteric fracture of right hip Encounter type: initial encounter Fracture type: closed Qualified Codes: S72.141A - Displaced intertrochanteric fracture of right femur, initial encounter for closed fracture
[2017-01-09] MEDS ORDERED: LVNIS40 SQ (18:38)
[2017-01-09] MEDS ORDERED: HYDR-5688 PO (18:38)
[2017-01-09] MEDS ORDERED: ATV/1 PO (18:40)
--- NOTE | 2017-01-09 19:27 | DIAGNOSTIC IMAGING REPORT ---
RIGHT PELVIS/UNILATERAL HIP 2-3VIEWS CLINICAL HISTORY: Fall. COMPARISON: Pelvis and right hip radiographs December 05, 2016. FINDINGS: Multilevel lumbar spine fusion with iliac bolts is noted as well as a previous right acetabular fixation and post traumatic deformities of the left iliac crest and symphysis pubis. These findings are unchanged and chronic. 3 cannulated screws fixate the right femoral neck fracture. Alignment is unchanged since prior exam and near anatomic. No additional fractures are identified on this examination. Hardware is intact. IMPRESSION: 1. Stable postoperative findings following internal fixation of the right femoral neck fracture with 3 cannulated screws. Fracture in near anatomic alignment. 2. Unchanged appearance of the pelvis and hips since prior exam. Electronically signed by: Chuck Buenrostro M.D. 01/09/2017 7:26 PM Dictated Date/Time: 01/09/2017 7:23 PM
[2017-01-09] MEDS ORDERED: HYDROmorphone INJ 1 MG/ML SYR IM STA (19:38)
[2017-01-09] MEDS ORDERED: ONDANSETRON 4MG OD TAB PO STA (19:38)
--- NOTE | 2017-01-09 20:39 | DIAGNOSTIC IMAGING REPORT ---
CT OF THE RIGHT HIP WITHOUT CONTRAST CT DOSE: 891.90 mGy.cm CLINICAL HISTORY: Right hip pain following fall. Unable to bear weight. TECHNIQUE: Axial images of the right hip were obtained without IV contrast. Sagittal and coronal reconstructions were viewed COMPARISON STUDY: CT of the right hip December 05, 2016 and pelvis and right hip radiographs performed earlier today. FINDINGS: There are postsurgical findings consistent with internal fixation of the right femoral neck fracture with 3 cannulated screws. The hardware is intact. Fracture alignment is unchanged since postoperative radiographs. The fracture is in near anatomic alignment. The fracture is mildly impacted. Of note, there has been interval development of an acute nondisplaced intertrochanteric fracture of the right femur since prior exams. No additional acute fractures are identified. Lumbar spine fusion hardware with iliac bolts are noted. There is an old right acetabular internal fixation. Old left pubic ring fractures are noted. There is mild infiltration of the subcutaneous tissues of the lateral right thigh. No pelvic hematoma is identified. IMPRESSION: 1. Acute nondisplaced intertrochanteric fracture of the right femur, new since prior CT of December 05, 2016. 2. Status post internal fixation of the right femoral neck fracture. Unchanged postoperative appearance of the right femoral neck fracture which is in near anatomic alignment. 3. Multiple old traumatic and postsurgical findings within the pelvis and hips, as described above. Electronically signed by: Chuck Buenrostro M.D. 01/09/2017 8:38 PM Dictated Date/Time: 01/09/2017 8:27 PM
[2017-01-09] MEDS ORDERED: ONDANSETRON INJ 2 MG/ML 2 ML VIAL IV STA (20:43)
[2017-01-09] MEDS ORDERED: SODIUM CHLORIDE 0.9% 1000ML 1,000 ML IV STA (20:43)
[2017-01-09] MEDS ORDERED: MoRPHine SULFATE 4 MG/ML 1 ML CARP\\VIAL IV PRN (20:45)
--- NOTE | 2017-01-09 21:30 | DIAGNOSTIC IMAGING REPORT ---
CHEST ONE VIEW PORTABLE CLINICAL HISTORY: Preoperative evaluation. Fall. COMPARISON STUDY: Chest radiograph December 05, 2016. FINDINGS: An anterior cervical spine fusion is incidentally noted. There are several old right-sided rib fractures. There is no pneumothorax or pleural effusion. The patient is rotated. There is no evidence of pulmonary edema. Mild bibasilar opacities favor atelectasis. Lumbar spine fusion hardware is partially imaged. IMPRESSION: No acute cardiopulmonary findings. Electronically signed by: Chuck Buenrostro M.D. 01/09/2017 9:29 PM Dictated Date/Time: 01/09/2017 9:28 PM
[2017-01-09 21:49] LABS: BASO % 0.2 %; BASO ABS # 0.02 K/uL (0-0.2); COMPLETE YES; EOS % 0.7 %; HEMATOCRIT 38.5 % (37-47); IG% 0.4 %; LYMPH % 36.7 %; LYMPH ABS # 2.97 K/uL (1.2-3.4); MEAN CELL VOLUME 92.1 fL (80-100); MEAN CORPUSCULAR HEMOGLOBIN 31.1 pg (25-34); MEAN CORPUSCULAR HGB CONC 33.8 g/dl (32-36); MEAN PLATELET VOLUME 8.9 fL (7.4-10.4); MONO % 10.5 %; NEUT % 51.5 %; PLATELET COUNT 222 K/uL (130-400); RED BLOOD COUNT 4.18 M/uL (4.2-5.4)
[2017-01-09 22:02] LABS: ALT/SGPT 19 U/L (12-78); BLOOD UREA NITROGEN 14 mg/dl (7-18); BUN/CREATININE RATIO 20.8 (10-20); CALCIUM 9.2 mg/dl (8.5-10.1); CARBON DIOXIDE 23 mmol/L (21-32); CHLORIDE 107 mmol/L (98-107); CREATININE 0.66 mg/dl (0.60-1.20); GLUCOSE 80 mg/dl (70-99); POTASSIUM 3.7 mmol/L (3.5-5.1); SODIUM 140 mmol/L (136-145)
--- NOTE | 2017-01-09 22:02 | PROGRESS NOTE ---
DATE: 01/09/2017 Jennifer Guerrero was called by the ER, patient of Dr. Ziegler'wesly. Reviewed the studies, reviewed the laboratory work, etc. Discussed with Dr. Ziegler. He will assume responsibility for the case tomorrow. At present, we will treat the patient, nonweightbearing, bed rest. We will need additional studies to assess if fracture displaces. Appears to be a abel fixation intertrochanteric fracture, likely in pathologic bone and likely based on metabolic bone disease. Will need assessment. [facility]
[2017-01-09 22:07] LABS: ALKALINE PHOSPHATASE 76 U/L (45-117); AST/SGOT 18 U/L (15-37)
[2017-01-09] MEDS ORDERED: FENTANYL 25 MCG/HR TDSY TD SCH (22:15)
[2017-01-09] MEDS ORDERED: ACETAMINOPHEN 325 MG TAB PO PRN (22:15)
[2017-01-09] MEDS ORDERED: NYSP EXT (22:26)
[2017-01-09] MEDS ORDERED: CHOL1CAP95 PO (22:26)
[2017-01-09] MEDS ORDERED: BISA10SU38 PR (22:26)
[2017-01-09] MEDS ORDERED: ALUMCHW2 PO (22:26)
[2017-01-09] MEDS ORDERED: GLYC2SUP PR (22:26)
[2017-01-09] MEDS ORDERED: BUSP-8 PO (22:26)
[2017-01-09] MEDS ORDERED: CALC600T9 PO (22:26)
[2017-01-09] MEDS ORDERED: MRLP17X PO (22:26)
[2017-01-09] MEDS ORDERED: ERGOCALCIFEROL 50,000 INTER.UNIT CAP PO STA (22:44)
[2017-01-09] MEDS ORDERED: ARFORMOTEROL TART 15MCG/2ML VIAL INH PRN (23:00)
[2017-01-09] MEDS ORDERED: ONDANSETRON 4 MG TAB PO PRN (23:00)
[2017-01-09] MEDS ORDERED: ALBUTEROL HFA 8 GM INHALER INH PRN (23:00)
[2017-01-09] MEDS ORDERED: GLYCERIN ADULT 1 EA SUPP PR PRN (23:00)
[2017-01-09] MEDS ORDERED: POLYETHYLENE (MIRALAX) 17 GM PACK PO PRN (23:00)
[2017-01-09] MEDS ORDERED: AMLODIPINE BESYLATE 5 MG TAB PO PRN (23:00)
[2017-01-09] MEDS ORDERED: BISACODYL 10 MG SUPP PR PRN (23:00)
[2017-01-09] MEDS ORDERED: NYSTATIN POWDER 15GM BTL EXT PRN (23:00)
[2017-01-09] MEDS ORDERED: ALUM HYDROX/MAG TRISILICATE CHEW PO PRN (23:00)
[2017-01-09] MEDS ORDERED: BACITRACIN OINT 15 GM TUBE EXT PRN (23:00)
[2017-01-09 23:01] VITALS: BP 130/91; PULSE 76; TEMP 36.3; O2SAT 95
[2017-01-09] MEDS: MoRPHine SULFATE 4 MG/ML 1 ML CARP\\VIAL IV PRN (23:01)
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
[2017-01-10] VITALS (9 sets, daily range): BP systolic 93–119; BP diastolic 64–79; PULSE 75–98; TEMP 36.4–36.9; O2SAT 92–99; Ht 160 cm; Wt 79.0 kg
[2017-01-10] MEDS: CHECK FENTANYL PATCH PLACEMENT SCH ×4 (00:26→23:39)
[2017-01-10] MEDS: LORAZEPAM 1 MG TAB PO PRN (00:35)
[2017-01-10] MEDS: MoRPHine SULFATE 4 MG/ML 1 ML CARP\\VIAL IV PRN ×5 (00:36→19:03)
[2017-01-10] MEDS: ZOLPIDEM TARTRATE 10 MG TAB PO PRN ×2 (00:36→21:55)
[2017-01-10 05:25] LABS: URINE APPEARANCE CLEAR (CLEAR); URINE BILIRUBIN NEG (NEG); URINE COLOR YELLOW; URINE NITRITE NEG (NEG); URINE SPECIFIC GRAVITY 1.014 (1.000-1.030); UROBILINOGEN NEG (NEG)
[2017-01-10 05:30] LABS: MANUAL MICROSCOPIC REQUIRED? NO; REVIEW REQ? NO
[2017-01-10] MEDS: MoRPHine SULFATE 2 MG/ML CARP IV PRN ×5 (05:38→16:18)
[2017-01-10 06:39] LABS: HEMATOCRIT 37.4 % (37-47); MEAN CELL VOLUME 94.9 fL (80-100); MEAN CORPUSCULAR HEMOGLOBIN 31.2 pg (25-34); MEAN CORPUSCULAR HGB CONC 32.9 g/dl (32-36); MEAN PLATELET VOLUME 9.4 fL (7.4-10.4); PLATELET COUNT 217 K/uL (130-400); RED BLOOD COUNT 3.94 M/uL (4.2-5.4); WHITE BLOOD COUNT 5.46 K/uL (4.8-10.8)
[2017-01-10 06:58] LABS: PARTIAL THROMBOPLASTIN RATIO 1.1
[2017-01-10 07:05] LABS: BUN/CREATININE RATIO 22.4 (10-20); CALCIUM 8.7 mg/dl (8.5-10.1); CREATININE 0.51 mg/dl (0.60-1.20); MAGNESIUM 2.3 mg/dl (1.8-2.4); POTASSIUM 3.5 mmol/L (3.5-5.1)
[2017-01-10] MEDS: FLUTICASONE PROPIONATE NA SPR 16 GM BTL NAE SCH ×2 (09:34→21:27)
[2017-01-10] MEDS: METOCLOPRAMIDE HCL 5 MG TAB PO SCH ×4 (09:35→21:29)
[2017-01-10] MEDS: ARIPIprazole TAB 15 MG TAB PO SCH (09:36)
[2017-01-10] MEDS: CALCIUM 600MG + VIT D 400 IU TAB PO SCH (09:37)
[2017-01-10] MEDS: VENLAFAXINE HCL XR 150 MG CAPXR PO SCH (09:38)
[2017-01-10] MEDS: VENLAFAXINE HCL XR 75 MG CAPXR PO SCH (09:39)
[2017-01-10] MEDS: FERROUS SULFATE 325 MG TAB PO SCH (09:39)
[2017-01-10] MEDS: CEROVITE ADV FORMULA TAB PO SCH (09:40)
[2017-01-10] MEDS: MIRABEGRON ER 25 MG TAB PO SCH (09:41)
[2017-01-10] MEDS: TOPIRAMATE 100 MG TAB PO SCH ×2 (09:42→21:32)
[2017-01-10] MEDS: PANTOprazole SOD 40 MG TAB PO SCH (09:42)
[2017-01-10] MEDS: METOPROLOL SUCC 25MG EXT REL TAB PO SCH (09:43)
[2017-01-10] MEDS: CETIRIZINE HCL 10 MG TAB PO SCH (09:43)
[2017-01-10] MEDS: RANITIDINE HCL 150 MG TAB PO SCH (09:44)
[2017-01-10] MEDS: BACLOFEN 10 MG TAB PO SCH ×3 (09:45→21:30)
--- NOTE | 2017-01-10 09:51 | ORTHOPEDIC CONSULTATION ---
DATE OF CONSULTATION: 01/10/2017 CHIEF COMPLAINT: Right hip pain. HISTORY OF PRESENT ILLNESS: Jennifer is a 56-year-old female with an extensive medical history including bipolar disorder, anxiety, chronic narcotics use, depression, back pain, chronic hip and lower extremity pain. She did sustain a nondisplaced femoral neck fracture 6 weeks ago and underwent cannulated screw fixation. Initially, she was made touch toe weightbearing. She says that she was doing very well with her hip, and it was not painful; however, she was calling our office often for pain medications. Then she states she fell 2 days ago on her backside and began having significant increase of right hip pain. She says that she felt a snap and she felt like she re-fractured her hip. She was brought to the Emergency Room. Initial x-rays were negative. Again then got a CAT scan of the hip which showed a little nondisplaced cortical disruption around the screw placement. She was told it was a possible intertrochanteric fracture and admitted to the medical service. Orthopedics was consulted to evaluate and treat. She says she has mostly spasming around her hip. Her pain goes from her back all the way down her lower extremity to her right ankle. PAST MEDICAL HISTORY: Significant for anxiety, bipolar disorder, cervicalgia, chronic alcoholism in remission, chronic back pain, chronic headaches, chronic hepatitis C, chronic COPD, chronic urinary urge incontinence, depression, GERD, gastroparesis, history of aspiration pneumonia, history of C. diff, history of drug abuse, history of sepsis, history of V-tach, history of lumbago, history of osteoarthritis and osteoporosis, history of PTSD, history of supraventricular tachycardia and history of ulnar neuropathy. PAST SURGICAL HISTORY: Significant for bladder repair, history of colonoscopy, history of sinus surgery, history of ORIF of the right pubis, history of multiple spinal surgeries, history of a cannulated screw fixation of her right hip 6 weeks ago, history of cervical spinal fusion, history of ORIF of her right tib-fib, history of colonoscopy, history of tonsillectomy, tubal ligation. MEDICATIONS: Include [place], Ventolin, Gaviscon, Norvasc, Brovana, Abilify, Astelin, Lioresal, which is also baclofen; Dulcolax, Wellbutrin, calcium, Zyrtec, vitamin D3, Dexalab, Lovenox, Famvir, Duragesic patches, iron, Flonase, Folvite, Lasix, Lamictal, Ativan, metoclopramide, metoprolol, Myrbetriq, Mucinex, Bactroban, Zofran, MiraLax, Zantac, Clinoril, Topamax, Effexor, and Ambien. LABS: Show an H\T\H of 12.3 and 37.4. Her creatinine is 0.51. Her vital signs are all stable on room air. X-rays of the pelvis show all the hardware to be in good alignment. The femoral neck fracture appears to be healing as expected. I see no signs of any additional fractures on plain x-rays. A CT scan reviewed on the single axillary views there is a questionable cortical disruption that does not go through the entire bone near the area where the screws were placed. This could simply be a passage of one of the guidewires during the surgery. IMPRESSION: Right hip pain extending from the low back down to the right ankle with a questionable small cortical disruption around the cannulated screw hardware. PLAN: I see no evidence of an intertrochanteric fracture on the CT scan. There was a very small area of cortical disruptions on a single slice of the axillary view around where the cannulated screws were placed. This could have simply been from a guidewire placement during the surgery. I realize she is having a lot of spasming and increasing right hip pain, but I do not see anything that would require a surgical fixation. At this point, I would just continue to maker touch toe weightbearing and help with pain control. I will review the CAT scan with a couple of my peers to make sure that nothing is being missed but I do not see this being a surgical case. She can go ahead and have a diet and I recommended a pain management consultation. I will continue to follow.
--- NOTE | 2017-01-10 14:28 | Progress Note ---
Internal Med Progress Note Date of Service: Jan 10, 2017. Provider Documentation: SUBJECTIVE: Patient c/o pain in Right groin radiating down to lower leg and lower back post fall. No numbness/tingling, weakness in lower extremities. No fever, chills, abdominal pain, diarrhea, nausea, vomiting, urinary symptoms OBJECTIVE: Vital Signs-as noted below Exam: General-AAOX3, no distress, anxious + Neck-Supple Lungs-AEBE, no wheezing, rhonchi Heart-S1, S2 normal, no murmurs Abdomen-Soft, non tender, non distended, BS present, no flank tenderness Extremities-Right Hip- ROM + due to pain, LLE- normal movement Neuro-No focal deficits Lab data as noted below. CT HIP : IMPRESSION: 1. Acute nondisplaced intertrochanteric fracture of the right femur, new since prior CT of December 05, 2016. 2. Status post internal fixation of the right femoral neck fracture. Unchanged postoperative appearance of the right femoral neck fracture which is in near anatomic alignment. 3. Multiple old traumatic and postsurgical findings within the pelvis and hips, as described above. ASSESSMENT & PLAN: Assessment and Plan RIGHT HIP PAIN: S/p recent repair of right femoral neck fracture with screw on December [address] Ziegler Contributing factors:: Anxiety/Depression/Chronic narcotic dependence/Bipolar disorder -Discussed with Dr Ziegler who reviewed the CT/X ray imaging- does not think this is true intertrochantric fracture, but it could just be secondary to guidewire. He will ask peers to review the images as well. But no indication for surgery at this point so no true fracture noted. -Pain control with Fentanyl patch and PRN IV morphine. Added percocet PRN for moderate pain -Appreciate ortho inputs. HYPERTENSION BP is controlled -Continue metoprolol 25 mg daily -Pt states her amlodipine is PRN; will hold for now HISTORY OF SVT S/p successful ablation -Currently in NSR MILD COPD -Not in acute exacerbation -Continue home inhalers, nebs, and Singulair BIPOLAR DISORDER -Continue home medications GASTROPARESIS -Continue Reglan GERD -Continue PPI and ranitidine DVT PROPHYLAXIS -SCD's DISPOSITION -Follows with Dr. Murilol for primary care Vital Signs: Date Time Temp Pulse Resp B/P Pulse Ox O2 Delivery O2 Flow Rate FiO2 01/10/17 13:25 83 116/77 01/10/17 11:46 108/74 01/10/17 09:47 84 100/67 01/10/17 07:46 36.4 75 16 93/64 94 Room Air 01/10/17 07:30 Room Air 01/10/17 00:30 Room Air 01/10/17 00:30 Room Air 01/09/17 23:01 36.3 76 16 130/91 95 Room Air 01/09/17 22:27 37.0 81 20 125/77 99 01/09/17 22:17 81 20 125/77 99 01/09/17 21:15 79 01/09/17 20:27 76 20 133/86 99 01/09/17 17:49 37.0 79 20 139/99 99 Lab Results: Results Past 24 Hours Test 01/09/17 21:29 01/09/17 21:35 01/09/17 21:47 01/10/17 04:30 Range/Units Sodium Level 140 136-145 mmol/L Potassium Level 3.7 3.5-5.1 mmol/L Chloride Level 107 98-107 mmol/L Carbon Dioxide Level 23 21-32 mmol/L Anion Gap 10.0 3-11 mmol/L Blood Urea Nitrogen 14 7-18 mg/dl Creatinine 0.66 0.60-1.20 mg/dl Est Creatinine Clear Calc Drug Dose 94.7 ml/min Estimated GFR () 114.5 Estimated GFR (Non- 98.8 BUN/Creatinine Ratio 20.8 10-20 Random Glucose 80 70-99 mg/dl Calcium Level 9.2 8.5-10.1 mg/dl Total Bilirubin 0.3 0.2-1 mg/dl Direct Bilirubin < 0.1 0-0.2 mg/dl Aspartate Amino Transf (AST/SGOT) 18 15-37 U/L Alanine Aminotransferase (ALT/SGPT) 19 12-78 U/L Alkaline Phosphatase 76 45-117 U/L Troponin I < 0.015 0-0.045 ng/ml Total Protein 7.4 6.4-8.2 gm/dl Albumin 3.8 3.4-5.0 gm/dl Lipase 128 73-393 U/L White Blood Count 8.10 4.8-10.8 K/uL Red Blood Count 4.18 4.2-5.4 M/uL Hemoglobin 13.0 12.0-16.0 g/dL Hematocrit 38.5 37-47 % Mean Corpuscular Volume 92.1 80-100 fL Mean Corpuscular Hemoglobin 31.1 25-34 pg Mean Corpuscular Hemoglobin Concent 33.8 32-36 g/dl Platelet Count 222 130-400 K/uL Mean Platelet Volume 8.9 7.4-10.4 fL Neutrophils (%) (Auto) 51.5 % Lymphocytes (%) (Auto) 36.7 % Monocytes (%) (Auto) 10.5 % Eosinophils (%) (Auto) 0.7 % Basophils (%) (Auto) 0.2 % Neutrophils # (Auto) 4.17 1.4-6.5 K/uL Lymphocytes # (Auto) 2.97 1.2-3.4 K/uL Monocytes # (Auto) 0.85 0.11-0.59 K/uL Eosinophils # (Auto) 0.06 0-0.5 K/uL Basophils # (Auto) 0.02 0-0.2 K/uL RDW Standard Deviation 54.9 36.4-46.3 fL RDW Coefficient of Variation 16.2 11.5-14.5 % Immature Granulocyte % (Auto) 0.4 % Immature Granulocyte # (Auto) 0.03 0.00-0.02 K/uL 25-Hydroxy Vitamin D Total 35.0 30-100 ng/ml Urine Color YELLOW Urine Appearance CLEAR CLEAR Urine pH 7.0 4.5-7.5 Urine Specific [place] 1.014 1.000-1.030 Urine Protein NEG NEG Urine Glucose (UA) NEG NEG Urine Ketones NEG NEG Urine Occult Blood NEG NEG Urine Nitrite NEG NEG Urine Bilirubin NEG NEG Urine Urobilinogen NEG NEG Urine Leukocyte Esterase TRACE NEG Urine WBC (Auto) 5-10 0-5 /hpf Urine RBC (Auto) 0-4 0-4 /hpf Urine Hyaline Casts (Auto) 0 0-5 /lpf Urine Epithelial Cells (Auto) 5-10 0-5 /lpf Urine Bacteria (Auto) NEG NEG Test 01/10/17 06:10 Range/Units White Blood Count 5.46 4.8-10.8 K/uL Red Blood Count 3.94 4.2-5.4 M/uL Hemoglobin 12.3 12.0-16.0 g/dL Hematocrit 37.4 37-47 % Mean Corpuscular Volume 94.9 80-100 fL Mean Corpuscular Hemoglobin 31.2 25-34 pg Mean Corpuscular Hemoglobin Concent 32.9 32-36 g/dl RDW Standard Deviation 57.4 36.4-46.3 fL RDW Coefficient of Variation 16.5 11.5-14.5 % Platelet Count 217 130-400 K/uL Mean Platelet Volume 9.4 7.4-10.4 fL Activated Partial Thromboplast Time 27.4 21.0-31.0 SECONDS Partial Thromboplastin Ratio 1.1 Sodium Level 139 136-145 mmol/L Potassium Level 3.5 3.5-5.1 mmol/L Chloride Level 107 98-107 mmol/L Carbon Dioxide Level 23 21-32 mmol/L Anion Gap 9.0 3-11 mmol/L Blood Urea Nitrogen 11 7-18 mg/dl Creatinine 0.51 0.60-1.20 mg/dl Est Creatinine Clear Calc Drug Dose 122.6 ml/min Estimated GFR () 124.6 Estimated GFR (Non- 107.5 BUN/Creatinine Ratio 22.4 10-20 Random Glucose 90 70-99 mg/dl Calcium Level 8.7 8.5-10.1 mg/dl Magnesium Level 2.3 1.8-2.4 mg/dl
[2017-01-10] MEDS: HYDROCODONE/ACETAMOPHEN 5/325MG TAB PO PRN ×3 (15:53→21:34)
[2017-01-10] MEDS: MONTELUKAST SOD 10 MG TAB PO SCH (21:31)
[2017-01-10] MEDS: LORAZEPAM 2 MG TAB PO SCH (21:33)
[2017-01-11] MEDS: MoRPHine SULFATE 4 MG/ML 1 ML CARP\\VIAL IV PRN ×2 (01:24→07:38)
[2017-01-11] MEDS: HYDROCODONE/ACETAMOPHEN 5/325MG TAB PO PRN ×4 (05:18→20:44)
[2017-01-11 05:31] LABS: HEMATOCRIT 37.5 % (37-47); MEAN CELL VOLUME 92.8 fL (80-100); MEAN CORPUSCULAR HEMOGLOBIN 31.2 pg (25-34); MEAN CORPUSCULAR HGB CONC 33.6 g/dl (32-36); MEAN PLATELET VOLUME 9.2 fL (7.4-10.4); PLATELET COUNT 198 K/uL (130-400); RED BLOOD COUNT 4.04 M/uL (4.2-5.4); WHITE BLOOD COUNT 6.59 K/uL (4.8-10.8)
[2017-01-11 05:54] LABS: BUN/CREATININE RATIO 16.2 (10-20); CALCIUM 8.9 mg/dl (8.5-10.1); CREATININE 0.61 mg/dl (0.60-1.20); POTASSIUM 3.7 mmol/L (3.5-5.1)
[2017-01-11 07:12] VITALS: BP 114/79; PULSE 90; TEMP 36.5; O2SAT 92
[2017-01-11] MEDS: METOCLOPRAMIDE HCL 5 MG TAB PO SCH ×4 (07:42→20:45)
[2017-01-11] MEDS: CHECK FENTANYL PATCH PLACEMENT SCH ×2 (07:43→15:49)
[2017-01-11 08:56] VITALS: BP 122/86; PULSE 96
[2017-01-11] MEDS: FLUTICASONE PROPIONATE NA SPR 16 GM BTL NAE SCH ×2 (08:57→20:45)
[2017-01-11] MEDS: ARIPIprazole TAB 15 MG TAB PO SCH (08:57)
[2017-01-11] MEDS: VENLAFAXINE HCL XR 150 MG CAPXR PO SCH (08:59)
[2017-01-11] MEDS: FERROUS SULFATE 325 MG TAB PO SCH (08:59)
[2017-01-11] MEDS: VENLAFAXINE HCL XR 75 MG CAPXR PO SCH (08:59)
[2017-01-11] MEDS: CALCIUM 600MG + VIT D 400 IU TAB PO SCH (08:59)
[2017-01-11] MEDS: CEROVITE ADV FORMULA TAB PO SCH (09:01)
[2017-01-11] MEDS: BACLOFEN 10 MG TAB PO SCH ×3 (09:01→20:41)
[2017-01-11] MEDS: MIRABEGRON ER 25 MG TAB PO SCH (09:01)
[2017-01-11] MEDS: PANTOprazole SOD 40 MG TAB PO SCH (09:02)
[2017-01-11] MEDS: TOPIRAMATE 100 MG TAB PO SCH ×2 (09:02→20:44)
[2017-01-11] MEDS: RANITIDINE HCL 150 MG TAB PO SCH (09:03)
[2017-01-11] MEDS: METOPROLOL SUCC 25MG EXT REL TAB PO SCH (09:03)
[2017-01-11] MEDS: CETIRIZINE HCL 10 MG TAB PO SCH (09:03)
[2017-01-11] MEDS ORDERED: POLYETHYLENE (MIRALAX) 17 GM PACK PO PRN (12:45)
[2017-01-11] MEDS ORDERED: BISACODYL 5 MG TABEC PO PRN (12:45)
--- NOTE | 2017-01-11 12:52 | PROGRESS NOTE ---
DATE: 01/11/2017 CHIEF COMPLAINT: Right hip and groin pain. PROGRESS: Overall, Jennifer is doing a little bit better. She was able to sit at the edge of the bed. She has not been able to get up at all. She is still having hip pain and a lot of spasming in the area of her groin. She has no new complaints. PHYSICAL EXAMINATION: Basically unchanged from yesterday. Her leg lengths are equal. She does have some pain with gentle logroll of her hip. She complains mostly of spasms in her groin. Most of her pain is located laterally at the old incision site. She is neurovascularly intact, but she states she feels really weak in her quad. IMPRESSION: Right hip pain with a very small cortical disruption in the proximal femur. PLAN: I did review the CT scan with several of my peers and there was consensus agreement that there was an extremely small cortical disruption and no surgery would be indicated. She can be toe-touch weightbearing on her right lower extremity as pain allows and to progress weightbearing as pain allows. We will continue to work with pain control and she is orthopedically stable for discharge. I will see her in the office in 3-4 weeks, just to evaluate her progress and to get some x-rays. Office phone number is [phone].
--- NOTE | 2017-01-11 13:11 | Progress Note ---
Internal Med Progress Note Date of Service: Jan 11, 2017. Provider Documentation: SUBJECTIVE: Patient c/o pain in Right groin radiating down to lower leg and lower back post fall- little better today C/O Spasms near right hip No numbness/tingling, weakness in lower extremities. No fever, chills, abdominal pain, diarrhea, nausea, vomiting, urinary symptoms No BM yet OBJECTIVE: Vital Signs-as noted below Exam: General-AAOX3, no distress, anxious + Neck-Supple Lungs-AEBE, no wheezing, rhonchi Heart-S1, S2 normal, no murmurs Abdomen-Soft, non tender, non distended, BS present, no flank tenderness Extremities-Right Hip- ROM + due to pain, LLE- normal movement Neuro-No focal deficits Lab data as noted below. CT HIP : IMPRESSION: 1. Acute nondisplaced intertrochanteric fracture of the right femur, new since prior CT of December 05, 2016. 2. Status post internal fixation of the right femoral neck fracture. Unchanged postoperative appearance of the right femoral neck fracture which is in near anatomic alignment. 3. Multiple old traumatic and postsurgical findings within the pelvis and hips, as described above. ASSESSMENT & PLAN: Assessment and Plan RIGHT HIP PAIN, Likely secondary to fall with recent hip fracture repair S/p recent repair of right femoral neck fracture with screw on December [address] Ziegler Contributing factors:: Anxiety/Depression/Chronic narcotic dependence/Bipolar disorder -Discussed with Dr Ziegler who reviewed the CT/X ray imaging- does not think this is true intertrochantric fracture. . He discussed images with his peers and similar view. No indication for surgery at this point so no true fracture noted. -Pain control with Fentanyl patch and PRN IV morphine PRN for severe pain, [place] prn . Discussed about the need to cut down on IV pain meds and change to PO -Will order lumbar x ray due to fall -Appreciate ortho inputs.Discussed with Dr Ziegler HYPERTENSION BP is controlled -Continue metoprolol 25 mg daily -Pt states her amlodipine is PRN; will hold for now HISTORY OF SVT S/p successful ablation -Currently in NSR MILD COPD -Not in acute exacerbation -Continue home inhalers, nebs, and Singulair BIPOLAR DISORDER -Continue home medications GASTROPARESIS -Continue Reglan GERD -Continue PPI and ranitidine DVT PROPHYLAXIS -SCD's DISPOSITION -Follows with Dr. Murillo for primary care. Vital Signs: Date Time Temp Pulse Resp B/P Pulse Ox O2 Delivery O2 Flow Rate FiO2 01/11/17 08:56 96 122/86 01/11/17 07:30 Room Air 01/11/17 07:12 36.5 90 16 114/79 92 Room Air 01/10/17 23:40 Room Air 01/10/17 23:39 36.9 91 16 119/76 99 Room Air 01/10/17 18:53 98 115/77 01/10/17 17:30 115/79 01/10/17 16:30 92 Room Air 01/10/17 15:11 36.6 90 14 109/77 92 Room Air 01/10/17 13:25 83 116/77 Lab Results: Results Past 24 Hours Test 01/11/17 05:20 Range/Units White Blood Count 6.59 4.8-10.8 K/uL Red Blood Count 4.04 4.2-5.4 M/uL Hemoglobin 12.6 12.0-16.0 g/dL Hematocrit 37.5 37-47 % Mean Corpuscular Volume 92.8 80-100 fL Mean Corpuscular Hemoglobin 31.2 25-34 pg Mean Corpuscular Hemoglobin Concent 33.6 32-36 g/dl RDW Standard Deviation 55.8 36.4-46.3 fL RDW Coefficient of Variation 16.3 11.5-14.5 % Platelet Count 198 130-400 K/uL Mean Platelet Volume 9.2 7.4-10.4 fL Sodium Level 141 136-145 mmol/L Potassium Level 3.7 3.5-5.1 mmol/L Chloride Level 107 98-107 mmol/L Carbon Dioxide Level 24 21-32 mmol/L Anion Gap 10.0 3-11 mmol/L Blood Urea Nitrogen 10 7-18 mg/dl Creatinine 0.61 0.60-1.20 mg/dl Est Creatinine Clear Calc Drug Dose 102.5 ml/min Estimated GFR () 117.5 Estimated GFR (Non- 101.3 BUN/Creatinine Ratio 16.2 10-20 Random Glucose 97 70-99 mg/dl Calcium Level 8.9 8.5-10.1 mg/dl
[2017-01-11] MEDS: MoRPHine SULFATE 2 MG/ML CARP IV PRN ×3 (13:43→22:43)
[2017-01-11 14:39] VITALS: BP 130/84; PULSE 110; O2SAT 95
[2017-01-11 15:03] VITALS: BP 121/86; PULSE 104; TEMP 36.8; O2SAT 95
--- NOTE | 2017-01-11 16:54 | DIAGNOSTIC IMAGING REPORT ---
FLUOROSCOPIC IMAGES OF THE LUMBAR SPINE CLINICAL HISTORY: Fall. Evaluate for fracture. COMPARISON: Lumbar spine radiograph June 18, 2016. FLUOROSCOPY TIME: FINDINGS: There are post surgical findings consistent with multilevel decompression with an L4-L5 discectomy. There are bilateral pedicle screws at the L1, L4 and L5 levels with a left pedicle screws at the L2 and L3 levels. Interconnecting rods are present. There are iliac bolts and a previous right acetabular fixation and right proximal femoral internal fixation for femoral neck fracture. Mild leftward curvature of the lumbar spine is present. Moderate loss of height of the superior endplate of L2 is unchanged. Lucency surrounding the L1 pedicle screws is noted. There is a mild compression deformity involving the superior endplate of L1. At least one of the screws at this level may extend into the disc space. Irregularity with an erosive appearance at the L5-S1 level is noted. Mild ossified of the superior endplate of L4 is unchanged. Interstitial stasis of L5 on S1 is unchanged. IMPRESSION: 1. No significant change in appearance the lumbar spine since exam of June 18, 2016 status post multilevel decompression and fusion of the lumbosacral spine. 2. L1, L2 and L4 compression fractures. 3. Lucency adjacent to the L1 pedicle screws suggestive of loosening. 4. No change in marked disc space narrowing at L5-S1 with associated fragmentation and a suspected fracture through the superior plate of S1 which is old. Electronically signed by: Chuck Buenrostro M.D. 01/11/2017 4:52 PM Dictated Date/Time: 01/11/2017 4:48 PM
[2017-01-11] MEDS: DOCUSATE SODIUM 100 MG CAP PO SCH (20:42)
[2017-01-11] MEDS: MONTELUKAST SOD 10 MG TAB PO SCH (20:44)
[2017-01-11] MEDS: LORAZEPAM 2 MG TAB PO SCH (20:45)
[2017-01-11 23:18] VITALS: BP 99/65; PULSE 79; TEMP 36.7; O2SAT 93
[2017-01-12] MEDS: CHECK FENTANYL PATCH PLACEMENT SCH ×3 (00:08→15:40)
[2017-01-12] MEDS: ZOLPIDEM TARTRATE 10 MG TAB PO PRN (00:11)
[2017-01-12] MEDS: HYDROCODONE/ACETAMOPHEN 5/325MG TAB PO PRN ×4 (02:02→14:37)
[2017-01-12] MEDS: MoRPHine SULFATE 2 MG/ML CARP IV PRN ×2 (04:55→11:29)
[2017-01-12] MEDS: METOCLOPRAMIDE HCL 5 MG TAB PO SCH ×2 (08:01→12:37)
[2017-01-12] MEDS: LORAZEPAM 1 MG TAB PO PRN (08:01)
[2017-01-12 08:02] VITALS: BP 120/74; PULSE 76; TEMP 36.4; O2SAT 94
[2017-01-12 08:21] VITALS: O2SAT 94
[2017-01-12] MEDS: METOPROLOL SUCC 25MG EXT REL TAB PO SCH (08:49)
[2017-01-12] MEDS: CEROVITE ADV FORMULA TAB PO SCH (08:49)
[2017-01-12] MEDS: RANITIDINE HCL 150 MG TAB PO SCH (08:49)
[2017-01-12] MEDS: VENLAFAXINE HCL XR 150 MG CAPXR PO SCH (08:50)
[2017-01-12] MEDS: FERROUS SULFATE 325 MG TAB PO SCH (08:50)
[2017-01-12] MEDS: BACLOFEN 10 MG TAB PO SCH ×2 (08:50→13:36)
[2017-01-12] MEDS: FLUTICASONE PROPIONATE NA SPR 16 GM BTL NAE SCH (08:50)
[2017-01-12] MEDS: VENLAFAXINE HCL XR 75 MG CAPXR PO SCH (08:50)
[2017-01-12] MEDS: CALCIUM 600MG + VIT D 400 IU TAB PO SCH (08:50)
[2017-01-12] MEDS: PANTOprazole SOD 40 MG TAB PO SCH (08:51)
[2017-01-12] MEDS: ARIPIprazole TAB 15 MG TAB PO SCH (08:51)
[2017-01-12] MEDS: MIRABEGRON ER 25 MG TAB PO SCH (08:51)
[2017-01-12] MEDS: CETIRIZINE HCL 10 MG TAB PO SCH (08:51)
[2017-01-12] MEDS: TOPIRAMATE 100 MG TAB PO SCH (08:52)
[2017-01-12] MEDS: DOCUSATE SODIUM 100 MG CAP PO SCH (08:52)
[2017-01-12] MEDS ORDERED: FENTANYL PATCH REMOVE & WASTE SCH (08:59)
[2017-01-12] MEDS ORDERED: FENTANYL 25 MCG/HR TDSY TD SCH (09:00)
[2017-01-12] MEDS ORDERED: NURSING VERBAL MED ORDER ONE (12:15)
[2017-01-12 12:19] VITALS: BP 116/78; PULSE 83; TEMP 36.5; O2SAT 96
[2017-01-12] MEDS ORDERED: CYCLOBENZAPRINE HCL 10 MG TAB PO ONE (12:30)
[2017-01-12] MEDS ORDERED: ATV/1 PO (13:23)
[2017-01-12] MEDS ORDERED: HYDR-5688 PO (13:23)
[2017-01-12] MEDS ORDERED: FENT25DI10 TD (13:23)
[2017-01-12 14:58] VITALS: BP 116/78; PULSE 83; TEMP 36.5; O2SAT 96
--- NOTE | 2017-01-12 14:58 | Progress Note ---
Internal Med Progress Note Date of Service: Jan 12, 2017. Provider Documentation: SUBJECTIVE: Patient is feeling better today. C/O Spasms near right hip. No numbness/tingling, weakness in lower extremities. No fever, chills, abdominal pain, diarrhea, nausea, vomiting, urinary symptoms OBJECTIVE: Vital Signs-as noted below Exam: General-AAOX3, no distress, anxious + Neck-Supple Lungs-AEBE, no wheezing, rhonchi Heart-S1, S2 normal, no murmurs Abdomen-Soft, non tender, non distended, BS present, no flank tenderness Extremities-Right Hip- ROM + due to pain, LLE- normal movement Neuro-No focal deficits Lab data as noted below. CT HIP : IMPRESSION: 1. Acute nondisplaced intertrochanteric fracture of the right femur, new since prior CT of December 05, 2016. 2. Status post internal fixation of the right femoral neck fracture. Unchanged postoperative appearance of the right femoral neck fracture which is in near anatomic alignment. 3. Multiple old traumatic and postsurgical findings within the pelvis and hips, as described above. ASSESSMENT & PLAN: Assessment and Plan RIGHT HIP PAIN, Likely secondary to fall with recent hip fracture repair S/P Recent repair of right femoral neck fracture with screw on December [address] Ziegler -Discussed with Dr Ziegler who reviewed the CT/X ray imaging- does not think this is true inter trochantric fracture. . He discussed images with his peers and similar opinion. No indication for surgery at this point as no true fracture noted. No acute findings noted during this admission, however, patient demanding more pain medications. She continues to take her PRN IV Morphine every 6 hours instead of as needed, [place] q 4 hours and is already on fentanyl patch 25 mcg as at home and still asking for more. -Contributing factors lowering pain threshold:: Anxiety/Depression/Chronic narcotic dependence/Bipolar disorder -Explained about judicious use of narcotics due to side effects/addictive potential - Will continue with Fentanyl patch 25 mcg and [place] q 6 hours PRN for pain. Would avoid more narcotics given no true indication to justify the use of such high dose of medications. On baclofen BID for gi symptoms ? will help with spasms in right hip joint. -Requested to do x ray back due to fall- No fracture noted -Bowel regimen while on narcotics -Appreciate ortho inputs.Discussed with Dr Ziegler . To follow up with him in 3- 4 weeks. HYPERTENSION BP is controlled -Continue metoprolol 25 mg daily -Pt states her amlodipine is PRN. Held while in hospital HISTORY OF SVT S/p successful ablation -Currently in NSR MILD COPD -Not in acute exacerbation -Continue home inhalers, nebs, and Singulair BIPOLAR DISORDER -Continue home medications GASTROPARESIS -Continue Reglan GERD -Continue PPI and ranitidine DVT PROPHYLAXIS -SCD's DISPOSITION -Ok to discharge to [facility] -Follows with Dr. Murillo for primary care. Vital Signs: Date Time Temp Pulse Resp B/P Pulse Ox O2 Delivery O2 Flow Rate FiO2 01/12/17 12:19 36.5 83 17 116/78 96 Room Air 01/12/17 08:21 94 Room Air 01/12/17 08:18 Room Air 01/12/17 08:02 36.4 76 16 120/74 94 Room Air 01/12/17 00:15 Room Air 01/11/17 23:18 36.7 79 16 99/65 93 Room Air 01/11/17 16:00 Room Air 01/11/17 15:03 36.8 104 18 121/86 95 Room Air 01/11/17 14:39 110 130/84 95 Room Air
--- NOTE | 2017-01-12 15:03 | Discharge Instructions ---
Discharge Instructions Admission Reason for Admission: Intertrochanteric Fracture Of Right Hip Discharge Discharge Diagnosis / Problem: 1. Fall with recent hx of Right femoral fracture repair, ac issues ruled ou Discharge Goals Goal(s): Diagnostic testing, Therapeutic intervention Activity Recommendations Activity Limitations: per Instructions/Follow-up section (PT/OT recommended as tolerated) . Instructions / Follow-Up Instructions / Follow-Up MEDICATIONS: Pain management as per instructions No changes in medications FOLLOW UP 1. Follow up with PCP in 1 week 2. Follow up with orthopedics, Dr Ziegler in 3-4 weeks . Call office at . PT/OT recommended as tolerated Current Hospital Diet Patient's current hospital diet: Regular Diet Discharge Diet Recommended Diet: AHA Diet (Heart Healthy), Low Sodium Diet (2gm Na) Pending Studies Studies pending at discharge: no Medical Emergencies . Who to Call and When: Medical Emergencies: If at any time you feel your situation is an emergency, please call 911 immediately. . Non-Emergent Contact Non-Emergency issues call your: Primary Care Provider . . "Provider Documentation" section prepared by Bridget Brooks. VTE Core Measure Inpt VTE Proph given/why not?: SCD's
[2017-01-12] MEDS ORDERED: DOCU-94 PO (15:05)
--- NOTE | 2017-01-12 15:20 | Discharge Summary ---
Discharge Summary Date of Service Jan 12, 2017. Discharge Summary Admission Date: Jan 09, 2017 at 22:07 Discharge Date: Jan 12, 2017 [facility] Principal Diagnosis: 1. Fall with history of recent right hip fracture repair, acute conditions ruled out Secondary Diagnoses/Problems: 1. Hypertension 2. COPD 3. Bipolar disorder 4. Hx of SVT 5. Gastroparesis Procedures: CXR Lower extremity CT Hip/Pelvis x ray Lumbar spine x ray Consultations: Orthopedics Pending Studies/Follow-Up: Instructions / Follow-Up MEDICATIONS: Pain management as per instructions No changes in medications FOLLOW UP 1. Follow up with PCP in 1 week 2. Follow up with orthopedics, Dr Ziegler in 3-4 weeks . Call office at [phone]. PT/OT recommended as tolerated Medication Reconciliation New Medications: Docusate Sodium (Colace) 100 Mg Cap 1 CAP PO BID for 15 Days, #30 CAP Continued Medications: Albuterol Hfa (Ventolin Hfa) 200 Puffs/53297 Mcg Aers 2 PUFFS INH QID PRN for SOB/Wheezing Aluminum Hydroxide-Mag Trisil (Gaviscon) 1 Chw Chw 2-4 TABS PO QID PRN for Dyspepsia Amlodipine (Norvasc) 2.5 Mg Tab 2.5 MG PO DAILY PRN for HTN Arformoterol Tartrate (Brovana) 15 Mcg/2 Ml Neb 15 MCG INH BID PRN for SOB/Wheezing Aripiprazole (Abilify) 30 Mg Tab 30 MG PO QAM Azelastine Hcl (Astelin Nasal [place]) 200 Sprays/30 Ml [place] 2 SPRAYS NA TID Baclofen (Lioresal) 10 Mg Tab 10 MG PO TID Bisacodyl (Dulcolax) 10 Mg Sup 1 SUPP ND DAILY PRN for Constipation, SUP Buspirone Hcl (Buspirone Hcl) 10 Mg Tab 10 MG PO BID, TAB Calcium Carbonate-Vitamin D (Calcium + D) 1 Tab Tab 2 TABS PO DAILY Cetirizine (Zyrtec) 10 Mg Tab 10 MG PO QAM Cholecalciferol (Vitamin D3) 50,000 Unit Cap 1 CAP PO MONTHLY Dexlansoprazole (Dexilant) 60 Mg Cap 60 MG PO DAILY Enoxaparin (Enoxaparin Sodium) 40 Mg/0.4 Ml Inj 40 MG SQ HS, #10 Famciclovir (Famvir) 500 Mg Tab 1000 MG PO BID PRN for BREAKOUTS TAKE FOR ONE DAY FOR RECURRENT HERPES SIMPLEX. Fentanyl (Duragesic) 25 Mcg/Hr Dis 25 MCG TD Q72H for 2 Days, #10 (This prescription has been renewed) Ferrous Sulfate (Ferrous Sulfate) 325 Mg Tab 325 MG PO QAM Fluticasone Propionate (Nasal) (Flonase Allergy Relief) 50 Mcg/Act Spr 2 SPRAYS [place] BID Folic Acid (Folvite) 1 Mg Tab 1 MG PO QAM Furosemide (Lasix) 20 Mg Tab 20 MG PO DAILY PRN for SWELLING/WEIGHT GAIN Glycerin (Laxative) ([facility]vs Glycerin Adult) 2 Gm Sup 1 SUPP ND DAILY PRN for Constipation Hydrocodone/Acetaminophen 5MG/325MG ([place] 5MG/325MG) Tab 1 TABLET PO Q6 PRN for Pain, #30 TAB (This prescription has been renewed) PRN PAIN Lamotrigine (Lamictal) 25 Mg Tab 25 MG PO BID TAKE WITH 100MG= 125MG TWICE DAILY Lamotrigine (Lamictal) 100 Mg Tab 100 MG PO BID TAKE WITH 25MG = 125MG TWICE DAILY Lorazepam (Ativan) 2 Mg Tab 2 MG PO HS Lorazepam (Ativan) 1 Mg Tab 1 MG PO BID PRN for Anxiety/Agitation, #30 TAB (This prescription has been renewed) Metoclopramide HCl (Metoclopramide HCl) 5 Mg Tab 5 MG PO ACHS Metoprolol Succinate (Toprol Xl) 25 Mg Tabcr 25 MG PO QAM Mirabegron (Myrbetriq Er) 50 Mg Tab 50 MG PO QAM Montelukast Sodium (Montelukast Sodium) 10 Mg Tab 1 TAB PO QPM for 90 Days, TAB 3 Refills Multiple Vitamins W/ Minerals (Centrum Adults) 1 Tab Tab 1 TAB PO QAM Mupirocin (Bactroban 2% Oint) 66 Appln/22 Gm Oint 1 APPLN EXT TID PRN for DRYNESS APPLY TO INSIDE OF NOSE Nystatin (Nystop) 45 Appln/15 Gm Powd 1 APPLN EXT DAILY PRN for rash Ondansetron Hcl (Zofran) 4 Mg Tab 4 MG SL Q6 PRN for Nausea Polyethylene (Miralax) 17 Gm Pow 17 GM PO DAILY PRN for Constipation Ranitidine (Zantac) 300 Mg Tab 300 MG PO QAM Sulindac ([place]inoril) 150 Mg Tab 150 MG PO BID TAKE WITH FOOD Topiramate (Topamax) 100 Mg Tab 100 MG PO BID Venlafaxine Hcl (Effexor Xr) 75 Mg Cap 75 MG PO QAM Venlafaxine Hcl (Effexor Xr) 150 Mg Cap 300 MG PO QAM Zolpidem Tartrate (Zolpidem Tartrate) 10 Mg Tab 10 MG PO HS PRN for Sleep Admission Information HPI (per Admitting provider): This is a 56 year old female with PMH of GERD, gastroparesis, COPD, bipolar disorder, hepatitis C, drug abuse in remission, history of SVT s/p ablation, and other problems listed below who presents to the ED with right hip pain s/p fall. Pt recently underwent repair of right femoral neck fracture on December [address] Ziegler. She states she was doing well with toe touch weight bearing only and PT coming to her home. Patient states today while stepping forward she heard a pop in her right hip and felt backwards onto her bottom. Since that time she has right hip pain which radiates down the RLE. No other injury from the fall. She could not stand up and had to slide to the kitchen to call 911. Pt states pain "comes in waves" and is currently rated 9/10. She reports associated tingling of the right toes. She was treated in ER with oxycodone 5 mg and IV Dilaudid 1 mg. Morphine 4 mg IV was given at the end of my exam. At home she was taking Fentanyl 25 mg patch and hydrocodone- acetaminophen 5-325 q6 PRN. Pt reports chronic cough with occasional green sputum and postnasal drip. She denies worsening sputum thickness or color from baseline. She reports chronic urinary incontinence. A Bojorquez was placed in the ER. Denies fevers, chills, chest pain, SOB, wheezing, abdominal pain, nausea, vomiting, diarrhea, acute urinary change. Physical Exam (per Admitting): General Appearance: WD/WN, + pertinent finding (alert 56 y/o female, lying in bed, appears uncomfortable secondary to pain) Head: normocephalic, atraumatic Eyes: normal inspection, PERRL, EOMI ENT: hearing grossly normal, pharynx normal Neck: supple, trachea midline Respiratory/Chest: lungs clear, normal breath sounds, no respiratory distress, + pertinent finding (no wheezing) Cardiovascular: regular rate, rhythm, no murmur Abdomen/GI: normal bowel sounds, non tender, soft Extremities/Musculoskelatal: no calf tenderness, no pedal edema, + pertinent finding (severe pain with R hip ROM. DP pulses 2+) Neurologic/Psych: alert, normal mood/affect, oriented x 3, + pertinent finding (sensation to light touch intact bilateral feet) Skin: normal color, warm/dry Hospital Course Assessment and Plan RIGHT HIP PAIN, Likely secondary to fall with recent hip fracture repair S/P Recent repair of right femoral neck fracture with screw on December [address] Ziegler -Discussed with Dr Ziegler who reviewed the CT/X ray imaging- does not think this is true inter trochantric fracture. . He discussed images with his peers and similar opinion. No indication for surgery at this point as no true fracture noted. No acute findings noted during this admission, however, patient demanding more pain medications. She continues to take her PRN IV Morphine every 6 hours instead of as needed, He[place] q 4 hours and is already on fentanyl patch 25 mcg as at home and still asking for more. -Contributing factors lowering pain threshold:: Anxiety/Depression/Chronic narcotic dependence/Bipolar disorder -Explained about judicious use of narcotics due to side effects/addictive potential - Will continue with Fentanyl patch 25 mcg and [place] q 6 hours PRN for pain. Would avoid more narcotics given no true indication to justify the use of such high dose of medications. On baclofen BID for gi symptoms ? will help with spasms in right hip joint. -Requested to do x ray back due to fall- No fracture noted -Bowel regimen while on narcotics -Appreciate ortho inputs.Discussed with Dr Ziegler . To follow up with him in 3- 4 weeks. HYPERTENSION BP is controlled -Continue metoprolol 25 mg daily -Pt states her amlodipine is PRN. Held while in hospital HISTORY OF SVT S/p successful ablation -Currently in NSR MILD COPD -Not in acute exacerbation -Continue home inhalers, nebs, and Singulair BIPOLAR DISORDER -Continue home medications GASTROPARESIS -Continue Reglan GERD -Continue PPI and ranitidine DVT PROPHYLAXIS -SCD's DISPOSITION -Ok to discharge to [facility] [place] today -Follows with Dr. Murillo for primary care. Total time spent on discharge = This includes examination of the patient, discharge planning, medication reconciliation, and communication with other providers. Discharge Instructions Discharge Diagnosis / Problem: 1. Fall with recent hx of Right femoral fracture repair, ac issues ruled ou Discharge Goals Goal(s): Diagnostic testing, Therapeutic intervention Activity Recommendations Activity Limitations: per Instructions/Follow-up section (PT/OT recommended as tolerated) . Instructions / Follow-Up Instructions / Follow-Up MEDICATIONS: Pain management as per instructions No changes in medications FOLLOW UP 1. Follow up with PCP in 1 week 2. Follow up with orthopedics, Dr Ziegler in 3-4 weeks . Call office at [phone]. PT/OT recommended as tolerated Current Hospital Diet Patient's current hospital diet: Regular Diet Discharge Diet Recommended Diet: AHA Diet (Heart Healthy), Low Sodium Diet (2gm Na) Pending Studies Studies pending at discharge: no Medical Emergencies . Who to Call and When: Medical Emergencies: If at any time you feel your situation is an emergency, please call 911 immediately. . Non-Emergent Contact Non-Emergency issues call your: Primary Care Provider . . "Provider Documentation" section prepared by Bridget Brooks. VTE Core Measure Inpt VTE Proph given/why not?: SCD's
[2017-02-10] MEDS ORDERED: ONDA8TAB6 PO (09:36)
[2017-02-10] MEDS ORDERED: EFF75 PO (09:36)
[2017-02-10] MEDS ORDERED: NYSTATIN POWDER EXT (09:36)
[2017-02-10] MEDS ORDERED: FOLI1TAB7 PO (09:36)
[2017-02-10] MEDS ORDERED: ATV/2 PO (09:36)
[2017-02-10] MEDS ORDERED: FURO-85 PO (09:36)
[2017-02-10] MEDS ORDERED: LAMO25TA PO (09:36)
[2017-02-10] MEDS ORDERED: CYCL5TAB PO ×2 (09:36)
[2017-02-10] MEDS ORDERED: MONT1TAB3 PO (09:36)
[2017-02-10] MEDS ORDERED: ZOLP10TA PO (09:36)
[2017-02-10] MEDS ORDERED: DEXL60CA4 PO (09:36)
[2017-02-10] MEDS ORDERED: LAMO100T16 PO (09:36)
[2017-02-10] MEDS ORDERED: BUSP-8 PO (09:36)
[2017-02-10] MEDS ORDERED: CLN150 PO (09:36)
[2017-02-10] MEDS ORDERED: FLUT0.15 NAE (09:36)
[2017-02-10] MEDS ORDERED: VENL150C56 PO (09:36)
[2017-02-10] MEDS ORDERED: RANI300T2 PO (09:36)
[2017-02-10] MEDS ORDERED: FENT25DI10 EXT (09:36)
[2017-02-10] MEDS ORDERED: TOPI100T20 PO (09:36)
[2017-02-10] MEDS ORDERED: ARIP30TA3 PO (09:36)
[2017-02-10] MEDS ORDERED: CETI10TA84 PO (09:36)
[2017-02-10] MEDS ORDERED: BISA10SU3 PR (09:36)
[2017-02-10] MEDS ORDERED: MIRA1TAB3 PO (09:36)
[2017-02-10] MEDS ORDERED: POLY335019 PO (09:36)
[2017-02-10] MEDS ORDERED: MULT-506 PO (09:36)
[2017-02-10] MEDS ORDERED: CALC500C70 PO (09:36)
[2017-02-10] MEDS ORDERED: CHOL1TAB63 PO (09:36)
[2017-02-10] MEDS ORDERED: METO1TAB54 PO (09:36)
[2017-02-10] MEDS ORDERED: ALUMCHW2 PO (09:36)
[2017-02-10] MEDS ORDERED: METO25TA3 PO (09:36)
[2017-02-10] MEDS ORDERED: FERR325T PO (09:36)
[2017-03-27] MEDS ORDERED: BACL10TA PO (09:37)
[2017-03-27] MEDS ORDERED: POLY335019 PO (09:37)
[2017-03-27] MEDS ORDERED: AMOX875T PO (09:37)
[2017-03-27] MEDS ORDERED: [UNRECOGNIZED DRUG - CODE] RE (09:37)
[2017-03-27] MEDS ORDERED: AZEL30SP NAE (09:37)
[2017-03-27] MEDS ORDERED: POTA10CA28 PO (09:37)
[2017-03-27] MEDS ORDERED: LAMO150T32 PO (09:37)
[2017-04-12] MEDS ORDERED: HYDR-5688 PO (08:28)
[2017-04-12] MEDS ORDERED: ASPEC325 PO (08:28)
[2017-04-21] MEDS ORDERED: CALC200T (15:05)
[2017-06-22] MEDS ORDERED: DIVA500T59 PO (07:45)
[2017-07-27] MEDS ORDERED: CYCL10TA6 PO (08:01)
== END 2017-01-12 16:00 | DRG 556 ==
LOC: ENRESERVTM → ENRESERVDT → EDBD 17:41 → C.EDC 17:43 → C.3E 22:07
PROVIDERS: ADMIT Hospitalist; ATTEND Internal Medicine
PROC: 0T9B70Z Drainage of Bladder with Drainage Device, Via Natural or Artificial Opening (ICD-10-PCS; principal; 2017-01-09)
DX: M25.551 Pain in right hip (principal); W19.XXXA Unspecified fall, initial encounter; S72.001D Fracture of unspecified part of neck of right femur, subsequent encounter for closed fracture with routine healing; W19.XXXD Unspecified fall, subsequent encounter; Y93.01 Activity, walking, marching and hiking; I10 Essential (primary) hypertension; J44.9 Chronic obstructive pulmonary disease, unspecified; F31.9 Bipolar disorder, unspecified; F41.9 Anxiety disorder, unspecified; K31.84 Gastroparesis; K21.9 Gastro-esophageal reflux disease without esophagitis; B18.2 Chronic viral hepatitis C; N39.41 Urge incontinence; Z86.79 Personal history of other diseases of the circulatory system; F17.210 Nicotine dependence, cigarettes, uncomplicated; F10.21 Alcohol dependence, in remission; F11.21 Opioid dependence, in remission; F14.21 Cocaine dependence, in remission; Z79.01 Long term (current) use of anticoagulants; Z79.1 Long term (current) use of non-steroidal anti-inflammatories (NSAID); Z79.891 Long term (current) use of opiate analgesic; Z79.899 Other long term (current) drug therapy; Z83.3 Family history of diabetes mellitus; Z82.49 Family history of ischemic heart disease and other diseases of the circulatory system; Z84.1 Family history of disorders of kidney and ureter; Z80.0 Family history of malignant neoplasm of digestive organs

== ENCOUNTER → 2017-02-10 | Outpatient (CLI) | payer OTHER ==
[~2017-02-10] MED LIST changes: -ACET1TAB84 PO; +ALUMCHW2 PO; +AMOX875T PO; +ASPEC325 PO; +ASPI325T39 PO; +ATV/1 PO; +AZEL30SP NAE; +BISA10SU3 PR; +BISA10SU38 PR; +BUSP-8 PO; -BUSP15TA70 PO; +CALC-388 PO; +CALC200T; +CALC500C70 PO; +CALC600T9 PO; +CEPH500C2 PO; +CHOL1CAP95 PO; +CHOL1TAB63 PO; +CLN150 PO; +CYCL10TA6 PO; +CYCL5TAB PO; +DIVA500T5 PO; +DIVA500T59 PO; +DOCU-94 PO; -DOCU100C31 PO; +EFF75 PO; +EFFSR/75 PO; +FAMO40TA6 PO; +FENT25DI10 EXT; +FERR325T PO; +GLYC2SUP PR; +HYDR-3419 PO; +HYDR-3763 PO; +HYDR-5688 PO; +LAMO150T32 PO; +LORA1TAB13 PO; +LVNIS40 SQ; +METO1TAB54 PO; +MONT1TAB3 PO; +MRLP17X PO; +MULT-190 PO; +MULT-506 PO; +MULTCAP36 PO; +NF656 TD; +NYSP EXT; +NYST1POW7 TOP; +NYSTATIN POWDER EXT; +ONDA8TAB6 PO; +PANT40TA PO; +POLY335019 PO; +POTA10CA28 PO; +PRFINS INH; +PRVHFAIN INH; +SULF800T23 PO; +TOPI100T20 PO; +VENL150C56 PO; -VTMD PO; +ZOLP10TA PO; +[UNRECOGNIZED DRUG - CODE] RE
[2017-02-10 14:56] LABS: BASO % 0.2 %; BASO ABS # 0.01 K/uL (0-0.2); COMPLETE YES; EOS % 0.6 %; IG% 0.5 %; LYMPH % 28.4 %; LYMPH ABS # 1.88 K/uL (1.2-3.4); MEAN CELL VOLUME 93.6 fL (80-100); MEAN CORPUSCULAR HEMOGLOBIN 32.3 pg (25-34); MEAN CORPUSCULAR HGB CONC 34.5 g/dl (32-36); MEAN PLATELET VOLUME 9.3 fL (7.4-10.4); MONO % 5.4 %; NEUT % 64.9 %; PLATELET COUNT 269 K/uL (130-400); RED BLOOD COUNT 4.06 M/uL (4.2-5.4); WHITE BLOOD COUNT 6.61 K/uL (4.8-10.8)
== END | disposition home or self-care (01) ==
LOC: C.LABSPEC 13:54
PROVIDERS: ATTEND Physician Assistant
DX: M25.559 Pain in unspecified hip (principal)

== ENCOUNTER → 2017-02-13 | Outpatient (CLI) | payer OTHER ==
[~2017-02-13] MED LIST changes: +AMOX1TAB42 PO; +AMT24 PO; -ASTN; -ATV/1 PO; -BCTROWC EXT; -BISA10SU38 PR; -CALC200T; +CALC200T PO; -CALC600T9 PO; -CHOL1CAP95 PO; -FAMC500T4 PO; -FENT25DI10 EXT; +FERR1TAB62 PO; -FERR325T PO; -FERR325T5 PO; +GABA-113 PO; -GLYC2SUP PR; +HYDR-5806 PO; -LVNIS40 SQ; -MONT1TAB5 PO; -MRLP17X PO; -MULT-610 PO; -NYSP EXT; -ONDA4TAB46 SL; +PRD/1 PO; -RGL/5 PO; -SULI150T PO; -TOPI100T45 PO; -VENL150C PO; -VENL75CA PO; -ZOLP10TA6 PO
--- NOTE | 2017-02-13 11:16 | DIAGNOSTIC IMAGING REPORT ---
RIGHT INJ MAJOR JN SHLDR,HIP,KNEE CLINICAL HISTORY: RIGHT HIP INJECTION, DJD OF R HIP Rightpain COMPARISON STUDY: None FLUOROSCOPY TIME: 12 seconds. FINDINGS: Following description of procedure and informed consent, a 22-gauge needle was placed to the right hip joint space. Test injection confirmed the needle was intra-articular location. This is followed by the injection of a combination of Xylocaine, betamethasone, and bupivacaine. There are no complications. IMPRESSION: Successful therapeutic right hip injection. Electronically signed by: Jerome Daugherty M.D. 02/13/2017 11:15 AM Dictated Date/Time: 02/13/2017 11:12 AM
== END | disposition home or self-care (01) ==
LOC: C.RADBC 10:08
PROVIDERS: ATTEND Orthopaedic Surgery
DX: M16.11 Unilateral primary osteoarthritis, right hip (principal); Z13.9 Encounter for screening, unspecified

== ENCOUNTER → 2017-02-18 | Day surgery (SDC) | payer OTHER ==
[2017-02-10 09:15] VITALS: Ht 160 cm; Wt 71.8 kg
[~2017-02-18] VITALS: Ht 160 cm; Wt 71.8 kg
[~2017-02-18] MED LIST changes: +EpHEDrine SULFATE 50MG/5ML SYR ONE; +LIDOCAINE HCL 2% 2 ML VIAL (20MG/ML) ONE; +ONDANSETRON INJ 2 MG/ML 2 ML VIAL IV PRN; +PHENYLEPHRINE 100MCG/ML 5ML SYR ONE; +PROPOFOL IV EMULSION 10 MG/ML 20 ML VIAL IV ONE
--- NOTE | 2017-02-18 09:11 | Endo History and Physical ---
History & Physical Date of Service: Feb 18, 2017. Chief Complaint: Difficulty swallowing Referring Physician: History of Present Illness History of solid food dysphagia worsening over the last 3 months since a hospitalization for a hip fracture. Past Medical History Arthritis, Fractures, Asthma, Gastrointestinal Disorder, Anxiety, Syncopal Episodes, COPD, Liver Disease, Depression Past Surgical History Hx Cardiac Surgery: Yes (CARDIAC ABLATION) Hx Internal Defibrillator: No Hx Pacemaker: No Hx Abdominal Surgery: Yes (BOWEL RESECTION (D/T SBO), FUNDOPLICATION, TUBAL LIGATION) Hx of Implantable Prosthesis: No Hx Post-Op Nausea and Vomiting: No Hx Cancer Surgery: No Hx Thoracic Surgery: No Hx Orthopedic: No (ORIF RT HIP, LUMBAR FUSION X 2, CERVICAL DISCECTOMY, RT TIB/ FIB REPAIR) Hx Urinary Tract Surgery: Yes (CYSTOSCOPY) Family History Colon CA Social History Smoking Status: Former Smoker Hx Substance Use: No (QUIT 15 YEARS AGO) Hx Alcohol Use: No Allergies Coded Allergies: Hydroxyzine (Verified Allergy, Severe, THROAT CONSTRICTS/CAN NOT VOID, ) Clarithromycin (Verified Adverse Reaction, Intermediate, vomiting, 01/09/17 ) Chlorpromazine (Verified Adverse Reaction, Unknown, LIGHTHEADED DIZZY, ) Lisinopril (Verified Adverse Reaction, Unknown, Cough, 02/10/17) Reported by PT. Uncoded Allergies: VISTORIL (Allergy, Unknown, DIFFICULTY URINATING, 01/07/17) Current Medications Reported Home Medications Medications Dose Route/Sig Max Daily Dose Days Date Category Dose Instructions Abilify (Aripiprazole) 30 Mg Tab 30 Mg PO QAM 02/10/17 Reported Os-Emile 500 Plus D (Calcium/Vitamin D) Tab 2 Tab PO QAM 02/10/17 Reported Ambien (Zolpidem Tartrate) 10 Mg Tab 10 Mg PO HS PRN 02/10/17 Reported Effexor Extended Rel (Venlafaxine Hcl) 150 Mg Cap 2 Cap PO QAM 02/10/17 Reported Gaviscon (Aluminum Hydroxide-Mag Trisil) 1 Chw Chw 1 Dose PO QID PRN 02/10/17 Reported Flonase Allergy Relief (Fluticasone Propionate (Nasal)) 50 Mcg/Act Spr 2 [place] MALLORIE DIRECTED 02/10/17 Reported Ferrous Sulfate 325 Mg Tab 1 Tab PO QAM 02/10/17 Reported Multivitamin (Multivitamins) Tab 1 Tab PO QAM 02/10/17 Reported Lamictal (Lamotrigine) 100 Mg Tab 100 Mg PO BID 02/10/17 Reported Zyrtec (Cetirizine HCl) 10 Mg Tab 10 Mg PO QAM 02/10/17 Reported Zofran (Ondansetron HCl) 8 Mg Tab 8 Mg PO Q6H PRN 02/10/17 Reported Singulair (Montelukast Sodium) 10 Mg Tab 10 Mg PO QAM 02/10/17 Reported Effexor (Venlafaxine Hcl) 75 Mg Tab 75 Mg PO QAM 02/10/17 Reported Lamictal (Lamotrigine) 25 Mg Tab 25 Mg PO BID 02/10/17 Reported Miralax (Polyethylene Glycol 3350) 1 Pow Pow 17 Gm PO DAILY PRN 02/10/17 Reported Buspirone Hcl 10 Mg Tab 2 Tab PO BID 02/10/17 Reported Topamax (Topiramate) 100 Mg Tab 100 Mg PO QID 02/10/17 Reported Ativan (Lorazepam) 2 Mg Tab 1 Mg PO TID 02/10/17 Reported Dexilant (Dexlansoprazole) 60 Mg Cap 1 Cap PO QAM 02/10/17 Reported Toprol Xl (Metoprolol Succinate) 25 Mg Tabcr 25 Mg PO QAM 02/10/17 Reported [Nystatin Powder] 1 Dose EXT DIRECTED PRN 02/10/17 Reported Lasix (Furosemide) 20 Mg Tab 20 Mg PO DAILY PRN 02/10/17 Reported Zantac (Ranitidine HCl) 300 Mg Tab 300 Mg PO QAM 02/10/17 Reported Myrbetriq Er (Mirabegron) 50 Mg Tab 50 Mg PO QAM 02/10/17 Reported Folvite (Folic Acid) 1 Mg Tab 1 Mg PO QAM 02/10/17 Reported Sulindac 150 Mg Tab 1 Tab PO BID 02/10/17 Reported Dulcolax (Bisacodyl) 10 Mg Sup 1 Supp [place] WK PRN 02/10/17 Reported Reglan (Metoclopramide Hcl) 5 Mg Tab 5 Mg PO ACHS 02/10/17 Reported Flexeril (Cyclobenzaprine Hcl) 5 Mg Tab 5 Mg PO DAILY AFTERNOON 02/10/17 Reported PRN Flexeril (Cyclobenzaprine Hcl) 5 Mg Tab 2 Tab PO BID 10 02/10/17 Reported Duragesic (Fentanyl) 25 Mcg/Hr Dis 1 Dose EXT Q72H 02/10/17 Reported Vitamin D3 (Cholecalciferol) 50,000 Unit Tab 1 Tab PO MONTHLY 02/10/17 Reported Gaviscon (Aluminum Hydroxide-Mag Trisil) 1 Chw Chw 2-4 Tabs PO QID PRN 01/09/17 Reported Brovana (Arformoterol Tartrate) 15 Mcg/2 Ml Neb 15 Mcg INH BID PRN 12/05/16 Reported Ventolin Hfa (Albuterol) 200 Puffs/72841 Mcg Aers 2 Puffs INH QID PRN 12/02/16 Reported Norvasc (Amlodipine Besylate) 2.5 Mg Tab 2.5 Mg PO DAILY PRN 11/14/16 Reported Vital Signs Weight (Kilograms): 71.82 Height (Feet): 5 Height (Inches): 3 Physical Exam General Appearance: no apparent distress Respiratory/Chest: Auscultation: deminished air movement Cardiovascular: Heart Auscultation: RRR Abdomen: Inspection & Palpation: soft Assessment and Plan EGD with dilation today, we have discussed the risks to include bleeding, infection, perforation, and pain.
--- NOTE | 2017-02-18 10:05 | GI REPORT ---
Procedure Date: 02/18/2017 9:43 AM Procedure: Upper GI endoscopy Indications: Dysphagia Medicines: Monitored Anesthesia Care Complications: No immediate complications. Estimated blood loss: Minimal. Estimated Blood Loss: Estimated blood loss was minimal. Procedure: Pre-Anesthesia Assessment: - Prior to the procedure, a History and Physical was performed, and patient medications, allergies and sensitivities were reviewed. The patient's tolerance of previous anesthesia was reviewed. - The risks and benefits of the procedure and the sedation options and risks were discussed with the patient. All questions were answered and informed consent was obtained. - Patient identification and proposed procedure were verified prior to the procedure by the physician, the nurse and the ent surgeon. The procedure was verified in the procedure room. - Pre-procedure physical examination revealed no contraindications to sedation. - ASA Grade Assessment: III - A patient with severe systemic disease. - After reviewing the risks and benefits, the patient was deemed in satisfactory condition to undergo the procedure. - The anesthesia plan was to use monitored anesthesia care (MAC). - Immediately prior to administration of medications, the patient was re-assessed for adequacy to receive sedatives. - The heart rate, respiratory rate, oxygen saturations, blood pressure, adequacy of pulmonary ventilation, and response to care were monitored throughout the procedure. - The physical status of the patient was re-assessed after the procedure. After obtaining informed consent, the endoscope was passed under direct vision. Throughout the procedure, the patient's blood pressure, pulse, and oxygen saturations were monitored continuously. The scope was introduced through the mouth, and advanced to the body of the stomach. The upper GI endoscopy was accomplished without difficulty. The patient tolerated the procedure well. Findings: No endoscopic abnormality was evident in the esophagus to explain the patient's complaint of dysphagia. It was decided, however, to proceed with dilation at the gastroesophageal junction due to her prior roseanna fundoplication. A TTS dilator was passed through the scope. Dilation with a 15-16.5-18 mm balloon (to a maximum balloon size of 18 mm for 90 seconds) dilator was performed. A large amount of food (residue) was found in the entire examined stomach. Impression: - dysphagia likely related to prior roseanna fundoplication. GEJ dilated to 18 mm today. - A large amount of food (residue) in the stomach precluding a complete upper endoscopy. - No specimens collected. Recommendation: - Discharge patient to home (ambulatory). - Advance diet as tolerated today. - Observe patient's clinical course following today's procedure with therapeutic intervention. - Repeat the upper endoscopy PRN for retreatment. Nabil Philip D.O. Nabil Philip, DO 02/18/2017 10:05:15 AM This report has been signed electronically. Note Initiated On: 02/18/2017 9:43 AM I attest to the content of the Intraoperative Record and orders documented therein, exceptions below
--- NOTE | 2017-02-18 10:06 | Discharge Instructions ---
Endoscopy Patient Instructions Date / Procedure(s) Performed Feb 18, 2017. EGD Allergy Information Coded Allergies: Hydroxyzine (Verified Allergy, Severe, THROAT CONSTRICTS/CAN NOT VOID, ) Clarithromycin (Verified Adverse Reaction, Intermediate, vomiting, 01/09/17 ) Chlorpromazine (Verified Adverse Reaction, Unknown, LIGHTHEADED DIZZY, ) Lisinopril (Verified Adverse Reaction, Unknown, Cough, 02/10/17) Reported by PT. Uncoded Allergies: VISTORIL (Allergy, Unknown, DIFFICULTY URINATING, 01/07/17) Discharge Date / Findings Feb 18, 2017. Prior roseanna fundoplication. Dilation performed to 18 mm. Large amount of retained stomach contents Medication Instructions Stopped Medication(s): Patient was told to not take her anti-inflammatory med. Reported Home Medications Medications Dose Route/Sig Max Daily Dose Days Date Category Abilify (Aripiprazole) 30 Mg Tab 30 Mg PO QAM 02/10/17 Reported Ambien (Zolpidem Tartrate) 10 Mg Tab 10 Mg PO HS PRN 02/10/17 Reported Effexor Extended Rel (Venlafaxine Hcl) 150 Mg Cap 2 Cap PO QAM 02/10/17 Reported Gaviscon (Aluminum Hydroxide-Mag Trisil) 1 Chw Chw 1 Dose PO QID PRN 02/10/17 Reported Flonase Allergy Relief (Fluticasone Propionate (Nasal)) 50 Mcg/Act Spr 2 [place] MALLORIE DIRECTED 02/10/17 Reported Ferrous Sulfate 325 Mg Tab 1 Tab PO QAM 02/10/17 Reported Multivitamin (Multivitamins) Tab 1 Tab PO QAM 02/10/17 Reported Lamictal (Lamotrigine) 100 Mg Tab 100 Mg PO BID 02/10/17 Reported Zyrtec (Cetirizine HCl) 10 Mg Tab 10 Mg PO QAM 02/10/17 Reported Zofran (Ondansetron HCl) 8 Mg Tab 8 Mg PO Q6H PRN 02/10/17 Reported Singulair (Montelukast Sodium) 10 Mg Tab 10 Mg PO QAM 02/10/17 Reported Effexor (Venlafaxine Hcl) 75 Mg Tab 75 Mg PO QAM 02/10/17 Reported Lamictal (Lamotrigine) 25 Mg Tab 25 Mg PO BID 02/10/17 Reported Miralax (Polyethylene Glycol 3350) 1 Pow Pow 17 Gm PO DAILY PRN 02/10/17 Reported Buspirone Hcl 10 Mg Tab 2 Tab PO BID 02/10/17 Reported Topamax (Topiramate) 100 Mg Tab 100 Mg PO QID 02/10/17 Reported Ativan (Lorazepam) 2 Mg Tab 1 Mg PO TID 02/10/17 Reported Dexilant (Dexlansoprazole) 60 Mg Cap 1 Cap PO QAM 02/10/17 Reported Toprol Xl (Metoprolol Succinate) 25 Mg Tabcr 25 Mg PO QAM 02/10/17 Reported [Nystatin Powder] 1 Dose EXT DIRECTED PRN 02/10/17 Reported Lasix (Furosemide) 20 Mg Tab 20 Mg PO DAILY PRN 02/10/17 Reported Zantac (Ranitidine HCl) 300 Mg Tab 300 Mg PO QAM 02/10/17 Reported Myrbetriq Er (Mirabegron) 50 Mg Tab 50 Mg PO QAM 02/10/17 Reported Folvite (Folic Acid) 1 Mg Tab 1 Mg PO QAM 02/10/17 Reported Sulindac 150 Mg Tab 1 Tab PO BID 02/10/17 Reported Dulcolax (Bisacodyl) 10 Mg Sup 1 Supp [place] WK PRN 02/10/17 Reported Reglan (Metoclopramide Hcl) 5 Mg Tab 5 Mg PO ACHS 02/10/17 Reported Duragesic (Fentanyl) 25 Mcg/Hr Dis 1 Dose EXT Q72H 02/10/17 Reported Vitamin D3 (Cholecalciferol) 50,000 Unit Tab 1 Tab PO MONTHLY 02/10/17 Reported Gaviscon (Aluminum Hydroxide-Mag Trisil) 1 Chw Chw 2-4 Tabs PO QID PRN 01/09/17 Reported Brovana (Arformoterol Tartrate) 15 Mcg/2 Ml Neb 15 Mcg INH BID PRN 12/05/16 Reported Ventolin Hfa (Albuterol) 200 Puffs/47805 Mcg Aers 2 Puffs INH QID PRN 12/02/16 Reported Norvasc (Amlodipine Besylate) 2.5 Mg Tab 2.5 Mg PO DAILY PRN 11/14/16 Reported Provider Instructions Activity Restrictions - No exercising or heavy lifting for 24 hours. - Do not drink alcohol the day of the procedure. - Do not drive a car or operate machinery until the day after the procedure. - Do not make any important decisions or sign important papers in 24 hours after the procedure. Following Day: - Return to full activity which may include returning to work/school. Diet Start your diet with liquids and light foods (jello, soup, juice, toast). Then eat your usual diet if not nauseated. Treatment For Common After Affects For mild abdominal pain, bloating, or excessive gas: - Rest - Eat lightly - Lie on right side Follow-Up Information Follow-up with Dr. Jerome Murillo as scheduled Repeat upper endoscopy as needed for dysphagia. Anesthesia Information What You Should Know You have had a procedure that required some medicine to reduce anxiety and discomfort. This treatment is called moderate sedation. After receiving the treatment, you may be sleepy, but you will be able to breathe on your own. The effects of the treatment may last for several hours. Follow these instructions along with Activity/Diet recommendations noted above: * Do NOT do anything where dizziness or clumsiness would be dangerous. * Rest quietly at home today, then you can be up and about tomorrow. * Have a responsible person stay with you the rest of today. * You may have had an I.V. today. If so, you may take the dressing off later today. Recommendations Call your doctor if: * Trouble breathing * Continuous vomiting for more than 24 hours * Temperature above 101 degrees * Severe abdominal pain or bloating * Pain not relieved by pain medicine ordered * There is increased drainage or redness from any incision * A large amount of rectal bleeding greater than 2-3 tablespoons. (If you had a polyp/s removed or have hemorrhoids, a small amount of blood - from the rectum is to be expected.) * You have any unanswered questions or concerns. IN THE EVENT OF A SERIOUS EMERGENCY, GO TO THE NEAREST EMERGENCY ROOM Your discharge instructions were prepared by provider Nabil Philip. Patient Instructions Signature Page Jennifer Guerrero Patient (or Guardian) Signature/Date: I have read and understand the instructions given to me by my caregivers. Caregiver/RN/Doctor Signature/Date: The above-named patient and/or guardian has received patient instructions on this date. + Original Patient Signature Page (only) stays with chart. Please make copy for patient.
--- NOTE | 2017-02-18 10:24 | Anesthesiology Progress Note ---
Anesthesia Post Op Note Date & Time Feb 18, 2017 at 10:23 Vital Signs Pain Intensity: 0 Vital Signs Past 12 Hours Date Time Temp Pulse Resp B/P Pulse Ox O2 Delivery O2 Flow Rate FiO2 02/18/17 10:15 73 16 98/58 96 Room Air 02/18/17 10:00 58 16 98/62 96 Room Air 02/18/17 09:21 36.7 78 20 108/64 99 Room Air Notes Mental Status: alert / awake / arousable, participated in evaluation Pt Amnestic to Procedure: Yes Nausea / Vomiting: adequately controlled Pain: adequately controlled Airway Patency, RR, SpO2: stable & adequate BP & HR: stable & adequate Hydration State: stable & adequate Anesthetic Complications: no major complications apparent Pt doing well.
[2017-02-18 10:30] VITALS: BP 103/63; PULSE 61; O2SAT 97
== END | disposition home or self-care (01) ==
LOC: C.GI 08:45
PROVIDERS: ATTEND Internal Medicine Gastroenterology
DX: R13.10 Dysphagia, unspecified (principal); J44.9 Chronic obstructive pulmonary disease, unspecified; F32.9 Major depressive disorder, single episode, unspecified; Z90.49 Acquired absence of other specified parts of digestive tract; Z98.1 Arthrodesis status; Z87.891 Personal history of nicotine dependence; Z80.0 Family history of malignant neoplasm of digestive organs

== ENCOUNTER 2017-02-23 18:38 | Emergency (ER) | payer OTHER ==
[~2017-02-23] VITALS: Ht 157.5 cm; Wt 71.5 kg
[~2017-02-23 18:38] MED LIST changes: -AMOX1TAB42 PO; -AMOX875T PO; -AMT24 PO; -ASPEC325 PO; -ASPI325T39 PO; -AZEL30SP NAE; -BACL10TA PO; -CALC-388 PO; -CALC200T PO; -CALC500C70 PO; -CEPH500C2 PO; -CYCL10TA6 PO; -CYCL5TAB PO; -DIVA500T5 PO; -DIVA500T59 PO; -DOCU-94 PO; -EFFSR/75 PO; -EpHEDrine SULFATE 50MG/5ML SYR ONE; -FAMO40TA6 PO; -GABA-113 PO; -HYDR-3419 PO; -HYDR-3763 PO; -HYDR-5688 PO; -HYDR-5806 PO; -LAMO150T32 PO; -LIDOCAINE HCL 2% 2 ML VIAL (20MG/ML) ONE; -LORA1TAB13 PO; -MULT-190 PO; -MULTCAP36 PO; -NF656 TD; -NYST1POW7 TOP; -ONDANSETRON INJ 2 MG/ML 2 ML VIAL IV PRN; -PANT40TA PO; -PHENYLEPHRINE 100MCG/ML 5ML SYR ONE; -POTA10CA28 PO; -PRD/1 PO; -PRFINS INH; -PROPOFOL IV EMULSION 10 MG/ML 20 ML VIAL IV ONE; -PRVHFAIN INH; -SULF800T23 PO; -[UNRECOGNIZED DRUG - CODE] RE
[2017-02-23 18:44] VITALS: TEMP 36.8; Ht 157.5 cm; Wt 71.5 kg
--- NOTE | 2017-02-23 18:54 | EMERGENCY ROOM VISIT NOTE ---
History Report prepared by Tonya: Royal Jensen Under the Supervision of: Dr. Yaw Garland M.D. First contact with patient: 18:43 Chief Complaint: SWELLING TO EXTREMITY Stated Complaint: LOWER BILAT. LEG EDEMA History of Present Illness The patient is a 56 year old female who presents to the Emergency Room with complaints of bilateral leg edema that began last night. She rates her current pain a 7/10 in severity. She is experiencing pain in the lower pelvic region, and all down her bilateral legs. When she woke up his morning, she took a Lasix secondary to the swelling in her lower extremities. She has two fractures in her right hip, one of which has been fixed. She does not where compression socks while she is at home. She denies any cough. Source of History: patient Onset: last night Position: leg (bilateral) Symptom Intensity: 7/10 Quality: other (Edema, with pain) Timing: constant Associated Symptoms: No cough Note: She is having bilateral leg and lower pelvic pain. Review of Systems See HPI for pertinent positives & negatives. A total of 10 systems reviewed and were otherwise negative. Past Medical & Surgical Medical Problems: (1) Anxiety (2) Bipolar disorder (3) Bipolar Disorder, Unspecified (4) Cervicalgia (5) Chronic alcoholism in remission (6) Chronic back pain (7) Chronic headache (8) Chronic hepatitis C (9) Chronic obstructive lung disease (10) Chronic urinary urge incontinence (11) Closed head injury (12) Depression (13) Gastroesophageal reflux disease (14) Gastroparesis (15) History of aspiration pneumonia (16) History of Clostridium difficile colitis (17) History of drug abuse (18) History of sepsis (19) History of supraventricular tachycardia (20) Lumbago (21) Osteoarthritis (22) Osteoporosis (23) Pancreatitis (24) PTSD (post-traumatic stress disorder) (25) SVT (supraventricular tachycardia) (26) Ulnar neuropathy Surgical Problems: (1) Bladder Repair (2) H/O colonoscopy (3) H/O cystoscopy (4) H/O esophagogastroduodenoscopy (5) H/O sinus surgery (6) History of hip surgery (7) Right Tibia/Fibula Repair (8) S/P cervical spinal fusion (9) s/p colonoscopy (10) s/p cystoscopy (11) s/p EGD (12) S/p esophagogastric fundoplasty (13) s/p laparoscopic fundoplication hiatal hernia (14) S/p lumbar decompression/fusion (15) S/P ORIF (open reduction internal fixation) fracture (16) s/p reconstruction hip socket (17) s/p tonsillectomy (18) S/P tonsillectomy and adenoidectomy (19) S/P tubal ligation (20) s/p tubal ligation Family History Diabetes mellitus FATHER GRANDMOTHER FH: colon cancer GRANDMOTHER Gallbladder disease Heart disease Hypertension FATHER MOTHER Kidney disease Kidney stones Social History Smoking Status: Former Smoker Alcohol Use: none Drug Use: other Marital Status: Housing Status: lives with family Occupation Status: disabled Current/Historical Medications Scheduled Aripiprazole (Abilify), 30 MG PO QAM Buspirone Hcl (Buspirone Hcl), 2 TAB PO BID Calcium Carbonate-Vitamin D (Calcium + D3 600-200 mg-Unit), 1 TAB PO QAM Cephalexin Monohydrate (Keflex), 500 MG PO QID Cetirizine (Zyrtec), 10 MG PO QAM Cholecalciferol (Vitamin D3), 1 TAB PO MONTHLY Dexlansoprazole (Dexilant), 1 CAP PO QAM Fentanyl (Duragesic), 1 DOSE EXT Q72H Ferrous Sulfate (Ferrous Sulfate), 1 TAB PO QAM Fluticasone Propionate (Nasal) (Flonase Allergy Relief), 2 SPRAY MALLORIE DAILY Folic Acid (Folvite), 1 MG PO QAM Lamotrigine (Lamictal), 25 MG PO BID Lamotrigine (Lamictal), 100 MG PO BID Lorazepam (Ativan), 1 MG PO TID Metoclopramide Hcl (Reglan), 5 MG PO ACHS Metoprolol Succinate (Toprol Xl), 25 MG PO QAM Mirabegron (Myrbetriq Er), 50 MG PO QAM Montelukast Sodium (Singulair), 10 MG PO HS Multiple Vitamins W/ Minerals (Preservision/Lutein), 1 CAP PO DAILY Multivitamin (Multivitamin), 1 TAB PO QAM Ranitidine Hcl (Zantac), 300 MG PO QAM Sulfa/Trimethoprim (Bactrim Ds 800MG/160MG), 1 TAB PO BID Sulindac (Sulindac), 1 TAB PO BID Topiramate (Topamax), 100 MG PO BID Venlafaxine Hcl (Effexor), 75 MG PO QAM Venlafaxine Hcl (Effexor Extended Rel), 300 MG PO QAM Zolpidem Tartrate (Ambien), 10 MG PO HS Scheduled PRN Albuterol Hfa (Ventolin Hfa), 2 PUFFS INH QID PRN for SOB/Wheezing Aluminum Hydroxide-Mag Trisil (Gaviscon), 2-4 TABS PO QID PRN for Dyspepsia Aluminum Hydroxide-Mag Trisil (Gaviscon), 1 DOSE PO QID PRN for PRN Amlodipine (Norvasc), 2.5 MG PO DAILY PRN for SVT Arformoterol Tartrate (Brovana), 15 MCG INH BID PRN for SOB/Wheezing Bisacodyl (Dulcolax), 1 SUPP CA WK PRN for Constipation Furosemide (Lasix), 20 MG PO DAILY PRN for SWELLING Ondansetron Hcl (Zofran), 8 MG PO Q6H PRN for Nausea [Nystatin Powder], 1 DOSE EXT DIRECTED PRN for PRN Allergies Coded Allergies: Hydroxyzine (Verified Allergy, Severe, THROAT CONSTRICTS/CAN NOT VOID, 09/01) Clarithromycin (Verified Adverse Reaction, Intermediate, vomiting, 02/23/17 ) Chlorpromazine (Verified Adverse Reaction, Unknown, LIGHTHEADED DIZZY, 09/01) Lisinopril (Verified Adverse Reaction, Unknown, Cough, 02/23/17) Reported by PT. Uncoded Allergies: VISTORIL (Allergy, Unknown, DIFFICULTY URINATING, 01/07/17) Physical Exam Vital Signs Date Time Temp Pulse Resp B/P Pulse Ox O2 Delivery O2 Flow Rate FiO2 02/23/17 22:30 71 18 134/97 96 Room Air 02/23/17 20:13 75 124/79 95 02/23/17 20:08 73 18 02/23/17 19:38 70 22 96 02/23/17 19:37 96 Room Air 02/23/17 19:37 75 02/23/17 18:44 36.8 76 17 141/92 98 Room Air Physical Exam GENERAL: Patient is a healthy-appearing well-nourished HEAD: Normocephalic atraumatic EYES: Ocular movements intact pupils equal and react to light OROPHARYNX mucous membranes are moist no exudates present no erythema or edema present NECK: Supple no nuchal rigidity CHEST: Good equal expansion LUNGS: Clear and equal to auscultation CARDIAC: Normal S1 and S2 ABDOMEN: Soft nontender no guarding BACK: No CVA tenderness EXTREMITIES: There is a lacy-like, erythematous rash to the left lower extremity. It does not go above the knee. Both feet are neurovascularly intact. NEURO: Patient is following commands is answering questions appropriately. Alert and oriented x3 Cranial Nerves 2-12 grossly intact Medical Decision & Procedures ER Provider Diagnostic Interpretation: Radiology results are stated below per my review and radiologist interpretation: RIGHT TIBIA/FIBULA 2 VIEWS ROUTINE CLINICAL HISTORY: Pt c/o Rt leg pain Right pain COMPARISON: None. DISCUSSION: Prior operative fixation of a fracture of the distal shaft tibia. Old fracture distal fibula. Alignment appears anatomic. No well-defined acute bony abnormality. There is no evidence for soft tissue swelling. IMPRESSION: Findings consistent with old trauma and postoperative change. No acute bony abnormality. Electronically signed by: Jerome Daugherty M.D. 02/23/2017 8:18 PM Dictated Date/Time: 02/23/2017 8:18 PM PELVIS 1 OR 2 VIEW ROUTINE CLINICAL HISTORY: Pt c/o Rt hip pain COMPARISON: 02/28/2016 DISCUSSION: Extensive postoperative change including lumbosacral fixation, right acetabular reconstruction, and pinning of the right hip. No well-defined acute bony abnormality. There is no evidence for soft tissue swelling. IMPRESSION: Postoperative and old posttraumatic change. No acute process. Electronically signed by: Jerome Daugherty M.D. 02/23/2017 8:15 PM Dictated Date/Time: 02/23/2017 8:14 PM RIGHT FEMUR 2 VIEWS ROUTINE CLINICAL HISTORY: Pt c/o Rt hip pain Right pain. Trauma. COMPARISON: None. DISCUSSION: Extensive postoperative changes to the pelvis and right hip. Right femur shows no specific acute abnormality. There is an old or pre-existing fracture of the right femoral neck. There is no evidence for soft tissue swelling. IMPRESSION: No acute bony abnormality. Findings consistent with prior trauma and postoperative fixation Electronically signed by: Jerome Daugherty M.D. 02/23/2017 8:16 PM Dictated Date/Time: 02/23/2017 8:15 PM CHEST ONE VIEW PORTABLE CLINICAL HISTORY: Pt c/o b/l leg swelling pain. Edema. COMPARISON STUDY: 01/09/2017 FINDINGS: The bones soft tissues and hemidiaphragms are normal. The cardiomediastinal silhouette is normal. The lungs are clear. The pulmonary vasculature is normal. IMPRESSION: Negative chest. Electronically signed by: Jerome Daugherty M.D. 02/23/2017 8:20 PM Dictated Date/Time: 02/23/2017 8:19 PM BILATERAL LOWER EXTREMITY VENOUS DOPPLER HISTORY: Pain. Edema. Pt c/o b/l leg swelling COMPARISON STUDY: None. FINDINGS: There is normal compressibility, flow, and augmentation within the bilateral lower extremity deep venous systems. IMPRESSION: No DVT within the right or left lower extremity. Electronically signed by: Jerome Daugherty M.D. 02/23/2017 9:48 PM Dictated Date/Time: 02/23/2017 9:47 PM Laboratory Results 02/23/17 19:20 Red Blood Count 4.34, Mean Corpuscular Volume 92.6, Mean Corpuscular Hemoglobin 32.5, Mean Corpuscular Hemoglobin Concent 35.1, Mean Platelet Volume 9.3, Neutrophils (%) (Auto) 31.5, Lymphocytes (%) (Auto) 54.4, Monocytes (%) (Auto) 10.6, Eosinophils (%) (Auto) 2.6, Basophils (%) (Auto) 0.3, Neutrophils # (Auto ) 1.95, Lymphocytes # (Auto) 3.38, Monocytes # (Auto) 0.66, Eosinophils # (Auto ) 0.16, Basophils # (Auto) 0.02 02/23/17 19:20 Test 02/23/17 19:20 02/23/17 19:30 White Blood Count 6.21 K/uL (4.8-10.8) Red Blood Count 4.34 M/uL (4.2-5.4) Hemoglobin 14.1 g/dL (12.0-16.0) Hematocrit 40.2 % (37-47) Mean Corpuscular Volume 92.6 fL (80-100) Mean Corpuscular Hemoglobin 32.5 pg (25-34) Mean Corpuscular Hemoglobin Concent 35.1 g/dl (32-36) Platelet Count 277 K/uL (130-400) Mean Platelet Volume 9.3 fL (7.4-10.4) Neutrophils (%) (Auto) 31.5 % Lymphocytes (%) (Auto) 54.4 % Monocytes (%) (Auto) 10.6 % Eosinophils (%) (Auto) 2.6 % Basophils (%) (Auto) 0.3 % Neutrophils # (Auto) 1.95 K/uL (1.4-6.5) Lymphocytes # (Auto) 3.38 K/uL (1.2-3.4) Monocytes # (Auto) 0.66 K/uL (0.11-0.59) Eosinophils # (Auto) 0.16 K/uL (0-0.5) Basophils # (Auto) 0.02 K/uL (0-0.2) RDW Standard Deviation 48.4 fL (36.4-46.3) RDW Coefficient of Variation 14.3 % (11.5-14.5) Immature Granulocyte % (Auto) 0.6 % Immature Granulocyte # (Auto) 0.04 K/uL (0.00-0.02) Anion Gap 11.0 mmol/L (3-11) Est Creatinine Clear Calc Drug Dose 63.9 ml/min Estimated GFR () 81.7 Estimated GFR (Non- 70.5 BUN/Creatinine Ratio 11.9 (10-20) Calcium Level 9.4 mg/dl (8.5-10.1) Total Bilirubin 0.3 mg/dl (0.2-1) Aspartate Amino Transf (AST/SGOT) 13 U/L (15-37) Alanine Aminotransferase (ALT/SGPT) 19 U/L (12-78) Alkaline Phosphatase 86 U/L (45-117) Pro-B-Type Natriuretic Peptide 89 pg/ml (0-900) Total Protein 7.8 gm/dl (6.4-8.2) Albumin 4.2 gm/dl (3.4-5.0) Globulin 3.6 gm/dl (2.5-4.0) Albumin/Globulin Ratio 1.2 (0.9-2) Urine Color YELLOW Urine Appearance CLEAR (CLEAR) Urine pH 7.5 (4.5-7.5) Urine Specific Mcfarland 1.004 (1.000-1.030) Urine Protein NEG (NEG) Urine Glucose (UA) NEG (NEG) Urine Ketones NEG (NEG) Urine Occult Blood NEG (NEG) Urine Nitrite NEG (NEG) Urine Bilirubin NEG (NEG) Urine Urobilinogen NEG (NEG) Urine Leukocyte Esterase NEG (NEG) Labs reviewed by ED physician. Medications Administered Medications (Trade) Dose Ordered Sig/Jennifer Route Start Time Stop Time Status Last Admin Dose Admin Acetaminophen (Tylenol Tab) 1,000 mg NOW STAT PO 02/23/17 20:24 02/23/17 20:25 DC 02/23/17 20:48 1,000 MG Ceftriaxone Sodium (Rocephin Inj) 1 gm NOW STAT IV 02/23/17 21:52 02/23/17 21:55 DC 02/23/17 22:25 1 GM Trimethoprim/ Sulfamethoxazole (Septra Ds 800/ 160MG Tab) 1 tab NOW STAT PO 02/23/17 21:52 02/23/17 21:55 DC 02/23/17 22:26 1 TAB Hydromorphone HCl (Dilaudid Inj) 0.5 mg NOW STAT IV 02/23/17 22:03 02/23/17 22:05 DC 02/23/17 22:26 0.5 MG Ketorolac Tromethamine (Toradol Inj) 30 mg NOW STAT IV 02/23/17 22:03 02/23/17 22:05 DC 02/23/17 22:29 30 MG Ondansetron HCl 4 mg 4 mg NOW STAT IV 02/23/17 22:03 02/23/17 22:05 DC 02/23/17 22:26 4 MG Sodium Chloride (Nss 500ml) 500 ml @ 999 mls/hr Q31M STAT IV 02/23/17 22:03 02/23/17 22:33 DC 02/23/17 22:25 999 MLS/HR ECG Indication: other (leg edema) Rate (beats per minute): 70 Rhythm: normal sinus Findings: no acute ischemic change, no ectopy ED Course 1842: Past medical records reviewed. The patient was evaluated in room A9. A complete history and physical examination was performed. 2023: Ordered Tylenol Tab 1,000 mg PO 2151: Ordered Trimethoprim/ Sulfamethoxazole 1 tab PO, Rocephin Inj 1 gm IV 2202: Ordered Sodium Chloride 500 ml @ 999 mls/hr IV, Zofran Inj 4 mg IV, Toradol Inj 30 mg IV, Dilaudid Inj 0.5 mg IV 2212: Upon reexamination the patient is resting. I discussed results and treatment plan with the patient. She verbalizes agreement and understanding. The patient is ready for discharge. Medical Decision Differential diagnosis: Etiologies such as cellulitis, abscess, MRSA infection, DVT, necrotizing fasciitis, dermatitis, drug eruption, as well as others were entertained. This is a 56-year-old female who presents emergency Department with multiple complaints. The patient states that she is here for her left lower extremity swelling to her left leg. Patient reports that she is on Lasix and took a dose of Lasix last evening for the swelling. In addition to this the patient is also complaining about right hip pain that has been ongoing for the past year. The patient has been seen by orthopedics for this right hip pain. Based on her complaint she was sent for x-rays of the pelvis and femur and the tibia. This did not show any evidence of acute fracture dislocation. She was sent for an ultrasound bilateral lower extremities. The patient does have a slightly red rash to the left lower extremity therefore was started on Rocephin and Bactrim. I will note however that she does not have an elevation in her white blood count. Based on these findings I felt that the patient was safe enough to be discharged home for follow-up with orthopedics. Patient was in agreement with the treatment plan. Impression Primary Impression: Cellulitis Additional Impression: Left leg swelling Scribe Attestation The scribe's documentation has been prepared under my direction and personally reviewed by me in its entirety. I confirm that the note above accurately reflects all work, treatment, procedures, and medical decision making performed by me. Departure Information Dispostion Home / Self-Care Prescriptions Sulfa/Trimethoprim (Bactrim Ds 800MG/160MG) Tab 1 TAB PO BID for 10 Days, #20 TAB Prov: Yaw Garland MD 02/23/17 Cephalexin Monohydrate (KEFLEX) 500 Mg Cap 500 MG PO QID for 10 Days, #40 CAP Prov: Yaw Garland MD 02/23/17 Referrals Jerome Murillo M.D. Spencer, Brian A., DO Forms HOME CARE DOCUMENTATION FORM, IMPORTANT VISIT INFORMATION, WORK / SCHOOL INSTRUCTIONS Patient Instructions Cellulitis - [facility], [facility], Later [facility] Additional Instructions Follow up with DR Ziegler's office You received narcotic or benzodiazepene medication while in the emergency room today. Do not drive, operate heavy machinery, or drink alcohol under the influence of this medication. You have been examined and treated today on an emergency basis only. This is not a substitute for, or an effort to provide, complete comprehensive medical care. It is impossible to recognize and treat all injuries or illnesses in a single emergency department visit. It is therefore important that you follow up closely with Dr Murillo. Call as soon as possible for an appointment. Thank you for your time and consideration. I look forward to speaking with you again soon. Please don't hesitate to call us if you have any questions. Problem Qualifiers Primary Impression: Cellulitis Site of cellulitis: extremity Site of cellulitis of extremity: lower extremity Laterality: left Qualified Codes: L03.116 - Cellulitis of left lower limb
[2017-02-23 19:34] LABS: HEMATOCRIT 40.2 % (37-47); MEAN CELL VOLUME 92.6 fL (80-100); MEAN CORPUSCULAR HEMOGLOBIN 32.5 pg (25-34); MEAN CORPUSCULAR HGB CONC 35.1 g/dl (32-36); MEAN PLATELET VOLUME 9.3 fL (7.4-10.4); PLATELET COUNT 277 K/uL (130-400); RED BLOOD COUNT 4.34 M/uL (4.2-5.4); WHITE BLOOD COUNT 6.21 K/uL (4.8-10.8)
[2017-02-23 19:37] VITALS: O2SAT 96
[2017-02-23 19:50] LABS: URINE APPEARANCE CLEAR (CLEAR); URINE BILIRUBIN NEG (NEG); URINE COLOR YELLOW; URINE NITRITE NEG (NEG); URINE PH 7.5 (4.5-7.5); URINE SPECIFIC GRAVITY 1.004 (1.000-1.030); UROBILINOGEN NEG (NEG)
[2017-02-23 19:54] LABS: MANUAL MICROSCOPIC REQUIRED? NO; REVIEW REQ? NO
[2017-02-23 20:00] LABS: BUN/CREATININE RATIO 11.9 (10-20); CALCIUM 9.4 mg/dl (8.5-10.1); CREATININE 0.91 mg/dl (0.60-1.20); POTASSIUM 3.4 mmol/L (3.5-5.1)
[2017-02-23 20:04] LABS: ALB/GLOB RATIO 1.2 (0.9-2)
[2017-02-23] MEDS ORDERED: MULTCAP36 PO (20:04)
[2017-02-23] MEDS ORDERED: CALC-388 PO (20:04)
--- NOTE | 2017-02-23 20:17 | DIAGNOSTIC IMAGING REPORT ---
PELVIS 1 OR 2 VIEW ROUTINE CLINICAL HISTORY: Pt c/o Rt hip pain COMPARISON: 02/28/2016 DISCUSSION: Extensive postoperative change including lumbosacral fixation, right acetabular reconstruction, and pinning of the right hip. No well-defined acute bony abnormality. There is no evidence for soft tissue swelling. IMPRESSION: Postoperative and old posttraumatic change. No acute process. Electronically signed by: Jerome Daugherty M.D. 02/23/2017 8:15 PM Dictated Date/Time: 02/23/2017 8:14 PM
--- NOTE | 2017-02-23 20:18 | DIAGNOSTIC IMAGING REPORT ---
RIGHT FEMUR 2 VIEWS ROUTINE CLINICAL HISTORY: Pt c/o Rt hip pain Right pain. Trauma. COMPARISON: None. DISCUSSION: Extensive postoperative changes to the pelvis and right hip. Right femur shows no specific acute abnormality. There is an old or pre-existing fracture of the right femoral neck. There is no evidence for soft tissue swelling. IMPRESSION: No acute bony abnormality. Findings consistent with prior trauma and postoperative fixation Electronically signed by: Jerome Daugherty M.D. 02/23/2017 8:16 PM Dictated Date/Time: 02/23/2017 8:15 PM
[2017-02-23 20:20] LABS: BASO % 0.3 %; BASO ABS # 0.02 K/uL (0-0.2); COMPLETE YES; EOS % 2.6 %; IG% 0.6 %; LYMPH % 54.4 %; LYMPH ABS # 3.38 K/uL (1.2-3.4); MONO % 10.6 %; NEUT % 31.5 %
--- NOTE | 2017-02-23 20:21 | DIAGNOSTIC IMAGING REPORT ---
RIGHT TIBIA/FIBULA 2 VIEWS ROUTINE CLINICAL HISTORY: Pt c/o Rt leg pain Right pain COMPARISON: None. DISCUSSION: Prior operative fixation of a fracture of the distal shaft tibia. Old fracture distal fibula. Alignment appears anatomic. No well-defined acute bony abnormality. There is no evidence for soft tissue swelling. IMPRESSION: Findings consistent with old trauma and postoperative change. No acute bony abnormality. Electronically signed by: Jerome Daugherty M.D. 02/23/2017 8:18 PM Dictated Date/Time: 02/23/2017 8:18 PM
--- NOTE | 2017-02-23 20:22 | DIAGNOSTIC IMAGING REPORT ---
CHEST ONE VIEW PORTABLE CLINICAL HISTORY: Pt c/o b/l leg swelling pain. Edema. COMPARISON STUDY: 01/09/2017 FINDINGS: The bones soft tissues and hemidiaphragms are normal. The cardiomediastinal silhouette is normal. The lungs are clear. The pulmonary vasculature is normal. IMPRESSION: Negative chest. Electronically signed by: Jerome Daugherty M.D. 02/23/2017 8:20 PM Dictated Date/Time: 02/23/2017 8:19 PM
[2017-02-23] MEDS ORDERED: ACETAMINOPHEN 500 MG TAB PO STA (20:24)
--- NOTE | 2017-02-23 21:50 | DIAGNOSTIC IMAGING REPORT ---
BILATERAL LOWER EXTREMITY VENOUS DOPPLER HISTORY: Pain. Edema. Pt c/o b/l leg swelling COMPARISON STUDY: None. FINDINGS: There is normal compressibility, flow, and augmentation within the bilateral lower extremity deep venous systems. IMPRESSION: No DVT within the right or left lower extremity. Electronically signed by: Jerome Daugherty M.D. 02/23/2017 9:48 PM Dictated Date/Time: 02/23/2017 9:47 PM
[2017-02-23] MEDS ORDERED: CEFTRIAXONE SOD INJ 1 GM ADDVIAL IV STA (21:52)
[2017-02-23] MEDS ORDERED: SULFAMETHOXAZOLE/TRIMETHOPRIM DS 800/160MG TAB PO STA (21:52)
[2017-02-23] MEDS ORDERED: HYDROmorphone INJ 0.5 MG/0.5 ML SYR IV STA (22:03)
[2017-02-23] MEDS ORDERED: SODIUM CHLORIDE 0.9% 500ML 500 ML IV STA (22:03)
[2017-02-23] MEDS ORDERED: ONDANSETRON INJ 2 MG/ML 2 ML VIAL IV STA (22:03)
[2017-02-23] MEDS ORDERED: KETOROLAC TROMETHAMINE 30 MG/ML VIAL IV STA (22:03)
[2017-02-23] MEDS ORDERED: SULF800T23 PO (22:10)
[2017-02-23] MEDS ORDERED: CEPH500C2 PO (22:10)
[2017-02-23 23:36] VITALS: BP 115/71; PULSE 67; O2SAT 95
[2017-03-27] MEDS ORDERED: [UNRECOGNIZED DRUG - CODE] RE (09:37)
[2017-03-27] MEDS ORDERED: POLY335019 PO (09:37)
[2017-03-27] MEDS ORDERED: BACL10TA PO (09:37)
[2017-03-27] MEDS ORDERED: POTA10CA28 PO (09:37)
[2017-03-27] MEDS ORDERED: AZEL30SP NAE (09:37)
[2017-03-27] MEDS ORDERED: AMOX875T PO (09:37)
[2017-03-27] MEDS ORDERED: LAMO150T32 PO (09:37)
[2017-04-12] MEDS ORDERED: ASPEC325 PO (08:28)
[2017-04-12] MEDS ORDERED: HYDR-5688 PO (08:28)
[2017-06-22] MEDS ORDERED: DIVA500T59 PO (07:45)
[2017-07-27] MEDS ORDERED: CYCL10TA6 PO (08:01)
[2017-09-28] MEDS ORDERED: AMOX1TAB42 PO (08:11)
[2017-09-28] MEDS ORDERED: AMT24 PO (08:11)
[2017-09-28] MEDS ORDERED: PRD/1 PO (08:12)
[2017-10-18] MEDS ORDERED: HYDR-5806 PO (08:34)
[2017-10-18] MEDS ORDERED: CEPH500C2 PO (08:34)
== END 2017-02-23 23:52 | disposition home or self-care (01) ==
LOC: EDBD 18:38 → C.EDA 18:39
DX: L03.116 Cellulitis of left lower limb (principal); M79.89 Other specified soft tissue disorders; B19.20 Unspecified viral hepatitis C without hepatic coma; F41.9 Anxiety disorder, unspecified; F31.9 Bipolar disorder, unspecified; K21.9 Gastro-esophageal reflux disease without esophagitis; M81.0 Age-related osteoporosis without current pathological fracture; G89.29 Other chronic pain; K31.84 Gastroparesis; J44.9 Chronic obstructive pulmonary disease, unspecified; M19.90 Unspecified osteoarthritis, unspecified site; Z87.81 Personal history of (healed) traumatic fracture; Z87.828 Personal history of other (healed) physical injury and trauma; Z86.19 Personal history of other infectious and parasitic diseases; Z98.51 Tubal ligation status; Z98.1 Arthrodesis status; Z98.890 Other specified postprocedural states; Z87.891 Personal history of nicotine dependence; Z79.899 Other long term (current) drug therapy; Z88.8 Allergy status to other drugs, medicaments and biological substances; Z83.3 Family history of diabetes mellitus; Z83.79 Family history of other diseases of the digestive system; Z82.49 Family history of ischemic heart disease and other diseases of the circulatory system; Z84.1 Family history of disorders of kidney and ureter; Z80.0 Family history of malignant neoplasm of digestive organs

== ENCOUNTER 2017-02-25 20:20 | Emergency (ER) | payer OTHER ==
[~2017-02-25] VITALS: Ht 157.5 cm; Wt 72.9 kg
[~2017-02-25 20:20] MED LIST changes: +CALC-388 PO; +CEPH500C2 PO; +MULTCAP36 PO; -POLY335019 PO; +SULF800T23 PO
[2017-02-25 20:23] VITALS: TEMP 36.8; Ht 157.5 cm; Wt 72.9 kg
[2017-02-25] MEDS ORDERED: HYDROmorphone INJ 1 MG/ML SYR IV STA (20:48)
[2017-02-25] MEDS ORDERED: ONDANSETRON INJ 2 MG/ML 2 ML VIAL IV STA (20:48)
--- NOTE | 2017-02-25 21:08 | EMERGENCY ROOM VISIT NOTE ---
History Report prepared by Tonya: Majo Akins Under the Supervision of: Dr. Florencio Colon M.D. 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 The patient currently rates the pain as an 8/10 in severity. The patient states that the pain is mostly along the around her knee but does radiate into her upper thigh. The patient states that she also has right groin pain. The patient states that the along with the pain she is having spasms of the right knee. She states that she recently had hip surgery in December 2016 and during her recovery she endured a hairline fracture of her hip and she is still having some pain. She states that she is also scheduled to see her doctor regarding surgery that she had on her tibia and fibula of her right leg 2-3 years ago and a loosening gia was seen.The patient states she has history of back surgeries and pain and currently has a fentanyl patch for chronic pain. The patient states that she was seen for left leg swelling 2 days ago and had X-rays and ultrasounds done on both of her legs. She denies any left leg pain today. She states she does not currently take any blood thinners. 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 Patient denies left leg pain. Review of Systems See HPI for pertinent positives & negatives. A total of 10 systems reviewed and were otherwise negative. Past Medical & Surgical Medical Problems: (1) Anxiety (2) Bipolar disorder (3) Bipolar Disorder, Unspecified (4) Cervicalgia (5) Chronic alcoholism in remission (6) Chronic back pain (7) Chronic headache (8) Chronic hepatitis C (9) Chronic obstructive lung disease (10) Chronic urinary urge incontinence (11) Closed head injury (12) Depression (13) Gastroesophageal reflux disease (14) Gastroparesis (15) History of aspiration pneumonia (16) History of Clostridium difficile colitis (17) History of drug abuse (18) History of sepsis (19) History of supraventricular tachycardia (20) Lumbago (21) Osteoarthritis (22) Osteoporosis (23) Pancreatitis (24) PTSD (post-traumatic stress disorder) (25) SVT (supraventricular tachycardia) (26) Ulnar neuropathy Surgical Problems: (1) Bladder Repair (2) H/O colonoscopy (3) H/O cystoscopy (4) H/O esophagogastroduodenoscopy (5) H/O sinus surgery (6) History of hip surgery (7) Right Tibia/Fibula Repair (8) S/P cervical spinal fusion (9) s/p colonoscopy (10) s/p cystoscopy (11) s/p EGD (12) S/p esophagogastric fundoplasty (13) s/p laparoscopic fundoplication hiatal hernia (14) S/p lumbar decompression/fusion (15) S/P ORIF (open reduction internal fixation) fracture (16) s/p reconstruction hip socket (17) s/p tonsillectomy (18) S/P tonsillectomy and adenoidectomy (19) S/P tubal ligation (20) s/p tubal ligation Old medical records were reviewed. Nurse's notes were reviewed and I agree with. Family History Diabetes mellitus FATHER GRANDMOTHER FH: colon cancer GRANDMOTHER Gallbladder disease Heart disease Hypertension FATHER MOTHER Kidney disease Kidney stones Social History Smoking Status: Current Every Day Smoker Alcohol Use: none Drug Use: other Marital Status: Housing Status: lives with family Occupation Status: disabled Current/Historical Medications Scheduled Aripiprazole (Abilify), 30 MG PO QAM Buspirone Hcl (Buspirone Hcl), 2 TAB PO BID Calcium Carbonate-Vitamin D (Calcium + D3 600-200 mg-Unit), 1 TAB PO QAM Cephalexin Monohydrate (Keflex), 500 MG PO QID Cetirizine (Zyrtec), 10 MG PO QAM Cholecalciferol (Vitamin D3), 1 TAB PO MONTHLY Dexlansoprazole (Dexilant), 1 CAP PO QAM Fentanyl (Duragesic), 1 DOSE EXT Q72H Ferrous Sulfate (Ferrous Sulfate), 1 TAB PO QAM Fluticasone Propionate (Nasal) (Flonase Allergy Relief), 2 SPRAY MALLORIE DAILY Folic Acid (Folvite), 1 MG PO QAM Lamotrigine (Lamictal), 25 MG PO BID Lamotrigine (Lamictal), 100 MG PO BID Lorazepam (Ativan), 1 MG PO TID Metoclopramide Hcl (Reglan), 5 MG PO ACHS Metoprolol Succinate (Toprol Xl), 25 MG PO QAM Mirabegron (Myrbetriq Er), 50 MG PO QAM Montelukast Sodium (Singulair), 10 MG PO HS Multiple Vitamins W/ Minerals (Preservision/Lutein), 1 CAP PO DAILY Multivitamin (Multivitamin), 1 TAB PO QAM Ranitidine Hcl (Zantac), 300 MG PO QAM Sulfa/Trimethoprim (Bactrim Ds 800MG/160MG), 1 TAB PO BID Sulindac (Sulindac), 1 TAB PO BID Topiramate (Topamax), 100 MG PO BID Venlafaxine Hcl (Effexor), 75 MG PO QAM Venlafaxine Hcl (Effexor Extended Rel), 300 MG PO QAM Zolpidem Tartrate (Ambien), 10 MG PO HS Scheduled PRN Albuterol Hfa (Ventolin Hfa), 2 PUFFS INH QID PRN for SOB/Wheezing Aluminum Hydroxide-Mag Trisil (Gaviscon), 2-4 TABS PO QID PRN for Dyspepsia Aluminum Hydroxide-Mag Trisil (Gaviscon), 1 DOSE PO QID PRN for PRN Amlodipine (Norvasc), 2.5 MG PO DAILY PRN for SVT Arformoterol Tartrate (Brovana), 15 MCG INH BID PRN for SOB/Wheezing Bisacodyl (Dulcolax), 1 SUPP MO WK PRN for Constipation Furosemide (Lasix), 20 MG PO DAILY PRN for SWELLING Ondansetron Hcl (Zofran), 8 MG PO Q6H PRN for Nausea [Nystatin Powder], 1 DOSE EXT DIRECTED PRN for PRN Allergies Coded Allergies: Hydroxyzine (Verified Allergy, Severe, THROAT CONSTRICTS/CAN NOT VOID, 11/01) Clarithromycin (Verified Adverse Reaction, Intermediate, vomiting, 02/25/17 ) Chlorpromazine (Verified Adverse Reaction, Unknown, LIGHTHEADED DIZZY, 11/01) Lisinopril (Verified Adverse Reaction, Unknown, Cough, 02/25/17) Reported by PT. Physical Exam Vital Signs Date Time Temp Pulse Resp B/P Pulse Ox O2 Delivery O2 Flow Rate FiO2 02/25/17 22:49 69 16 107/72 92 02/25/17 22:20 74 16 120/86 95 Room Air 02/25/17 20:23 36.8 93 16 11/ 95 Room Air Physical Exam General: Non ill appearing middle aged female in no acute distress. HEENT: Normal cephalic atraumatic. Pupils are equal round and reactive to light. Extraocular movements are intact. Oropharynx is pink with moist mucous membranes. No swelling of the mouth lips or tongue. Neck: Supple with a midline trachea. No meningeal signs or stiffness, no JVD or bruits. No Stridor. Chest: Clear to auscultation bilaterally. No wheezes or rhonchi. No increased work of breathing. Heart: regular rate and rhythm. Abdomen: Soft nontender, nondistended without rebound guarding or rigidity. Extremities: No cyanosis clubbing or edema. No calf tenderness or assymetry. No redness or warmth of the right lower extremity, normal motor and sensation, no signs of vascular compromise, good pulses. Spine/Back. Non tender to palpation. No CVA tenderness Skin: Good turgor without rashes. Neurologic exam: Cranial nerves two through 12 are intact. Motor and sensation are intact and symmetrical throughout. Medical Decision & Procedures Laboratory Results 02/25/17 21:00 Red Blood Count 3.86, Mean Corpuscular Volume 90.9, Mean Corpuscular Hemoglobin 31.9, Mean Corpuscular Hemoglobin Concent 35.0, Mean Platelet Volume 9.1, Neutrophils (%) (Auto) 48.1, Lymphocytes (%) (Auto) 33.7, Monocytes (%) (Auto) 16.3, Eosinophils (%) (Auto) 1.2, Basophils (%) (Auto) 0.2, Neutrophils # (Auto ) 2.87, Lymphocytes # (Auto) 2.01, Monocytes # (Auto) 0.97, Eosinophils # (Auto ) 0.07, Basophils # (Auto) 0.01 02/25/17 21:00 Test 02/25/17 21:00 White Blood Count 5.96 K/uL (4.8-10.8) Red Blood Count 3.86 M/uL (4.2-5.4) Hemoglobin 12.3 g/dL (12.0-16.0) Hematocrit 35.1 % (37-47) Mean Corpuscular Volume 90.9 fL (80-100) Mean Corpuscular Hemoglobin 31.9 pg (25-34) Mean Corpuscular Hemoglobin Concent 35.0 g/dl (32-36) Platelet Count 241 K/uL (130-400) Mean Platelet Volume 9.1 fL (7.4-10.4) Neutrophils (%) (Auto) 48.1 % Lymphocytes (%) (Auto) 33.7 % Monocytes (%) (Auto) 16.3 % Eosinophils (%) (Auto) 1.2 % Basophils (%) (Auto) 0.2 % Neutrophils # (Auto) 2.87 K/uL (1.4-6.5) Lymphocytes # (Auto) 2.01 K/uL (1.2-3.4) Monocytes # (Auto) 0.97 K/uL (0.11-0.59) Eosinophils # (Auto) 0.07 K/uL (0-0.5) Basophils # (Auto) 0.01 K/uL (0-0.2) RDW Standard Deviation 45.9 fL (36.4-46.3) RDW Coefficient of Variation 13.9 % (11.5-14.5) Immature Granulocyte % (Auto) 0.5 % Immature Granulocyte # (Auto) 0.03 K/uL (0.00-0.02) Anion Gap 12.0 mmol/L (3-11) Est Creatinine Clear Calc Drug Dose 58.7 ml/min Estimated GFR () 72.9 Estimated GFR (Non- 62.9 BUN/Creatinine Ratio 14.9 (10-20) Calcium Level 8.9 mg/dl (8.5-10.1) Total Bilirubin 0.2 mg/dl (0.2-1) Direct Bilirubin mg/dl (0-0.2) Aspartate Amino Transf (AST/SGOT) 14 U/L (15-37) Alanine Aminotransferase (ALT/SGPT) 18 U/L (12-78) Alkaline Phosphatase 83 U/L (45-117) Total Protein 7.0 gm/dl (6.4-8.2) Albumin 3.9 gm/dl (3.4-5.0) Lipase 151 U/L (73-393) Chemistry Specimen Hemolysis Laboratory studies as stated above per my review. Medications Administered Medications (Trade) Dose Ordered Sig/Jennifer Route Start Time Stop Time Status Last Admin Dose Admin Hydromorphone HCl (Dilaudid Inj) 1 mg NOW STAT IV 02/25/17 20:48 02/25/17 20:49 DC 02/25/17 21:29 1 MG Ondansetron HCl (Zofran Inj) 4 mg NOW STAT IV 02/25/17 20:48 02/25/17 20:49 DC 02/25/17 21:30 4 MG ED Course 2039: Past medical records reviewed. The patient was evaluated in room A10, and a complete history and physical examination were performed. 2047: Ordered Zofran Inj 4 mg IV, Dilaudid Inj 1 mg IV. 2209: Upon reevaluation, the patient is hemodynamically stable. I discussed the results and treatment plan with her. She verbalized agreement of the treatment plan. The patient was discharged home. Medical Decision Differentials include, but are not limited to; DVT, infection, musculoskeletal, and electrolyte or metabolic abnormality. She comes in with right leg pain. It is diffuse and it seems be going on chronically. She was here recently had extensive workup including negative ultrasound and x-rays. I do not feel the need to repeat these. IV access established and she has nothing to suggest sepsis or any significant electrolyte or metabolic abnormalities. She has no evidence of cellulitis on exam on either leg at this point. The joints are not red or warm or swollen and she has nothing to suggest septic joint or gout. She was given IV Dilaudid and IV Zofran while she was here and is feeling much better. She will be discharged to home. She does have an appointment with Dr. Hammond her orthopedist tomorrow which I encouraged her to keep. I encouraged her return if: fever, redness, warmth, numbness, weakness, any new problems or concerns. She was happy with the plan and was discharged to home. Impression Primary Impression: Leg pain, right Scribe Attestation The scribe's documentation has been prepared under my direction and personally reviewed by me in its entirety. I confirm that the note above accurately reflects all work, treatment, procedures, and medical decision making performed by me. Departure Information Dispostion Home / Self-Care Referrals Rozick, Jerome S.,M.D. (PCP) Forms HOME CARE DOCUMENTATION FORM, IMPORTANT VISIT INFORMATION Patient Instructions My [facility] Additional Instructions Rest. Drink plenty of liquids. Return if: worsening of symptoms, fevers, increasing pain, numbness or weakness , any new problems or concerns Follow-up with Dr. Manish das-
[2017-02-25 21:30] LABS: BASO % 0.2 %; BASO ABS # 0.01 K/uL (0-0.2); COMPLETE YES; EOS % 1.2 %; HEMATOCRIT 35.1 % (37-47); IG% 0.5 %; LYMPH % 33.7 %; LYMPH ABS # 2.01 K/uL (1.2-3.4); MEAN CELL VOLUME 90.9 fL (80-100); MEAN CORPUSCULAR HEMOGLOBIN 31.9 pg (25-34); MEAN PLATELET VOLUME 9.1 fL (7.4-10.4); MONO % 16.3 %; NEUT % 48.1 %; PLATELET COUNT 241 K/uL (130-400); RED BLOOD COUNT 3.86 M/uL (4.2-5.4); WHITE BLOOD COUNT 5.96 K/uL (4.8-10.8)
[2017-02-25 22:11] LABS: ALKALINE PHOSPHATASE 83 U/L (45-117); CALCIUM 8.9 mg/dl (8.5-10.1); CARBON DIOXIDE 22 mmol/L (21-32); CHLORIDE 102 mmol/L (98-107); GLUCOSE 86 mg/dl (70-99); POTASSIUM 3.7 mmol/L (3.5-5.1); SODIUM 136 mmol/L (136-145)
[2017-02-25 22:23] LABS: ALT/SGPT 18 U/L (12-78); AST/SGOT 14 U/L (15-37); BLOOD UREA NITROGEN 15 mg/dl (7-18); BUN/CREATININE RATIO 14.9 (10-20)
[2017-02-25 22:49] VITALS: BP 107/72; PULSE 69; O2SAT 92
[2017-03-27] MEDS ORDERED: POTA10CA28 PO (09:37)
[2017-03-27] MEDS ORDERED: [UNRECOGNIZED DRUG - CODE] RE (09:37)
[2017-03-27] MEDS ORDERED: AZEL30SP NAE (09:37)
[2017-03-27] MEDS ORDERED: AMOX875T PO (09:37)
[2017-03-27] MEDS ORDERED: LAMO150T32 PO (09:37)
[2017-03-27] MEDS ORDERED: POLY335019 PO (09:37)
[2017-03-27] MEDS ORDERED: BACL10TA PO (09:37)
[2017-04-12] MEDS ORDERED: ASPEC325 PO (08:28)
[2017-04-12] MEDS ORDERED: HYDR-5688 PO (08:28)
[2017-06-22] MEDS ORDERED: DIVA500T59 PO (07:45)
[2017-07-27] MEDS ORDERED: CYCL10TA6 PO (08:01)
[2017-09-28] MEDS ORDERED: AMT24 PO (08:11)
[2017-09-28] MEDS ORDERED: AMOX1TAB42 PO (08:11)
[2017-09-28] MEDS ORDERED: PRD/1 PO (08:12)
[2017-10-18] MEDS ORDERED: CEPH500C2 PO (08:34)
[2017-10-18] MEDS ORDERED: HYDR-5806 PO (08:34)
== END 2017-02-25 22:50 | disposition home or self-care (01) ==
LOC: EDBD 20:20 → C.EDA 20:21
DX: M79.661 Pain in right lower leg (principal); B19.20 Unspecified viral hepatitis C without hepatic coma; K21.9 Gastro-esophageal reflux disease without esophagitis; J44.9 Chronic obstructive pulmonary disease, unspecified; F31.9 Bipolar disorder, unspecified; K31.84 Gastroparesis; K86.1 Other chronic pancreatitis; G89.29 Other chronic pain; F41.9 Anxiety disorder, unspecified; M81.0 Age-related osteoporosis without current pathological fracture; M19.90 Unspecified osteoarthritis, unspecified site; F17.200 Nicotine dependence, unspecified, uncomplicated; Z98.1 Arthrodesis status; Z98.51 Tubal ligation status; Z98.890 Other specified postprocedural states; Z79.899 Other long term (current) drug therapy; Z88.8 Allergy status to other drugs, medicaments and biological substances; Z83.3 Family history of diabetes mellitus; Z80.0 Family history of malignant neoplasm of digestive organs; Z83.79 Family history of other diseases of the digestive system; Z82.49 Family history of ischemic heart disease and other diseases of the circulatory system; Z84.1 Family history of disorders of kidney and ureter

== ENCOUNTER 2017-03-22 04:27 | Emergency (ER) | payer OTHER ==
[~2017-03-22] VITALS: Ht 157.5 cm; Wt 69.8 kg
[~2017-03-22 04:27] MED LIST changes: -CEPH500C2 PO; -SULF800T23 PO
[2017-03-22 04:32] VITALS: TEMP 36.9; Ht 157.5 cm; Wt 69.8 kg
[2017-03-22] MEDS ORDERED: AMOXICIL/CLAVU 875MG HOME PACK PO ONE (05:00)
[2017-03-22] MEDS ORDERED: NYST1POW7 TOP (05:03)
[2017-03-22] MEDS ORDERED: AMOX875T PO (05:07)
[2017-03-22 05:12] VITALS: BP 115/76; PULSE 78; O2SAT 95
--- NOTE | 2017-03-23 03:19 | EMERGENCY ROOM VISIT NOTE ---
History First contact with patient: 04:48 Chief Complaint: INFECTION Stated Complaint: FINGER INFECTION Nursing Triage Summary: Pt reports she had a hangnail on right 4th finger and now believes its infection. Area red, swollen at nail bed. Streaking up finger. History of Present Illness The patient is a 56 year old female who presents to the Emergency Room with complaints of infection of her right fourth finger. The patient states that she initially had a hangnail of this finger, but over the past 2-3 days she has had increased redness and swelling. She did note some purulent drainage coming from the medial nail bed today, prompting her to come to the ER. The patient does not recall other distinct injury or trauma. She has not had fever or chills. She does have full sensation and range of motion of the finger. She rates her discomfort a 5/10 and has not taken anything [id number] for her discomfort. Review of Systems More than 10 systems were reviewed and otherwise negative with the exception of history of present illness. Past Medical/Surgical History Medical Problems: (1) Anxiety (2) Bipolar disorder (3) Bipolar Disorder, Unspecified (4) Cervicalgia (5) Chronic alcoholism in remission (6) Chronic back pain (7) Chronic headache (8) Chronic hepatitis C (9) Chronic obstructive lung disease (10) Chronic urinary urge incontinence (11) Closed head injury (12) Depression (13) Gastroesophageal reflux disease (14) Gastroparesis (15) History of aspiration pneumonia (16) History of Clostridium difficile colitis (17) History of drug abuse (18) History of sepsis (19) History of supraventricular tachycardia (20) Lumbago (21) Osteoarthritis (22) Osteoporosis (23) Pancreatitis (24) PTSD (post-traumatic stress disorder) (25) SVT (supraventricular tachycardia) (26) Ulnar neuropathy Surgical Problems: (1) Bladder Repair (2) H/O colonoscopy (3) H/O cystoscopy (4) H/O esophagogastroduodenoscopy (5) H/O sinus surgery (6) History of hip surgery (7) Right Tibia/Fibula Repair (8) S/P cervical spinal fusion (9) s/p colonoscopy (10) s/p cystoscopy (11) s/p EGD (12) S/p esophagogastric fundoplasty (13) s/p laparoscopic fundoplication hiatal hernia (14) S/p lumbar decompression/fusion (15) S/P ORIF (open reduction internal fixation) fracture (16) s/p reconstruction hip socket (17) s/p tonsillectomy (18) S/P tonsillectomy and adenoidectomy (19) S/P tubal ligation (20) s/p tubal ligation Family History Diabetes mellitus FATHER GRANDMOTHER FH: colon cancer GRANDMOTHER Gallbladder disease Heart disease Hypertension FATHER MOTHER Kidney disease Kidney stones Social History Smoking Status: Current Some Day Smoker Alcohol Use: none Drug Use: other Marital Status: Housing Status: lives with family Occupation Status: disabled Current/Historical Medications Scheduled Amoxicillin & Pot Clavulanate (Augmentin 875-125 mg), 1 TAB PO BID Aripiprazole (Abilify), 30 MG PO QAM Buspirone Hcl (Buspirone Hcl), 2 TAB PO BID Calcium Carbonate-Vitamin D (Calcium + D3 600-200 mg-Unit), 1 TAB PO QAM Cetirizine (Zyrtec), 10 MG PO QAM Cholecalciferol (Vitamin D3), 1 TAB PO MONTHLY Dexlansoprazole (Dexilant), 1 CAP PO QAM Fentanyl (Duragesic), 1 DOSE EXT Q72H Ferrous Sulfate (Ferrous Sulfate), 1 TAB PO QAM Fluticasone Propionate (Nasal) (Flonase Allergy Relief), 2 SPRAY MALLORIE DAILY Folic Acid (Folvite), 1 MG PO QAM Lamotrigine (Lamictal), 25 MG PO BID Lamotrigine (Lamictal), 100 MG PO BID Lorazepam (Ativan), 1 MG PO TID Metoclopramide Hcl (Reglan), 5 MG PO ACHS Metoprolol Succinate (Toprol Xl), 25 MG PO QAM Mirabegron (Myrbetriq Er), 50 MG PO QAM Montelukast Sodium (Singulair), 10 MG PO HS Multiple Vitamins W/ Minerals (Preservision/Lutein), 1 CAP PO DAILY Multivitamin (Multivitamin), 1 TAB PO QAM Ranitidine Hcl (Zantac), 300 MG PO QAM Sulindac (Sulindac), 1 TAB PO BID Topiramate (Topamax), 100 MG PO BID Venlafaxine Hcl (Effexor), 75 MG PO QAM Venlafaxine Hcl (Effexor Extended Rel), 300 MG PO QAM Zolpidem Tartrate (Ambien), 10 MG PO HS Scheduled PRN Albuterol Hfa (Ventolin Hfa), 2 PUFFS INH QID PRN for SOB/Wheezing Aluminum Hydroxide-Mag Trisil (Gaviscon), 2-4 TABS PO QID PRN for Dyspepsia Amlodipine (Norvasc), 2.5 MG PO DAILY PRN for SVT Arformoterol Tartrate (Brovana), 15 MCG INH BID PRN for SOB/Wheezing Bisacodyl (Dulcolax), 1 SUPP NM WK PRN for Constipation Furosemide (Lasix), 20 MG PO DAILY PRN for SWELLING Nystatin (Topical) (Nystatin), 1 APPLN TOP DIRECTED PRN for Affected Skin Folds Ondansetron Hcl (Zofran), 8 MG PO Q6H PRN for Nausea Allergies Coded Allergies: Hydroxyzine (Verified Allergy, Severe, THROAT CONSTRICTS/CAN NOT VOID, 03/22) Clarithromycin (Verified Adverse Reaction, Intermediate, vomiting, 03/22/17) Chlorpromazine (Verified Adverse Reaction, Unknown, LIGHTHEADED DIZZY, 03/22) Lisinopril (Verified Adverse Reaction, Unknown, Cough, 03/22/17) Reported by PT. Physical Exam Vital Signs Date Time Temp Pulse Resp B/P Pulse Ox O2 Delivery O2 Flow Rate FiO2 03/22/17 05:12 78 18 115/76 95 03/22/17 04:32 36.9 83 18 147/83 97 Room Air Pain Rating (0-10): 3.0 Physical Exam VITALS: Vitals are noted on the nurse's note and reviewed by myself. Vital signs stable. GENERAL: Well-developed, well-nourished, white female, who is in no acute distress and resting comfortably. Patient is cooperative with the examination. HEAD: Normocephalic atraumatic. HEART: Regular rate and rhythm without murmurs gallops or rubs. LUNGS: Clear to auscultation bilaterally without wheezes, rales or rhonchi. No retractions or accessory muscle use. SKIN: The skin was with what appears to be a infection of the left finger was notably along the lateral aspect of the left fingernail. There is mild lymphangitic streaking measuring about 3 cm coming proximally along the lateral finger. The patient has full sensation and range of motion of the finger. No purulent drainage or fluctuance appreciated. Medical Decision & Procedures Medications Administered Medications (Trade) Dose Ordered Sig/Jennifer Route Start Time Stop Time Status Last Admin Dose Admin Amoxicillin/ Clavulanate Potassium (Augmentin 875MG Home Pack) 1 homepack UD ONCE PO 03/22/17 05:00 03/22/17 05:01 DC 03/22/17 05:03 1 HOMEPACK ED Course Physical exam and history were performed. Nursing notes and EMR were reviewed. Patient appears to have an infected finger for the past few days. The patient does not appear to have fluctuance, but does have a very small amount of streaking. The patient and I had a discussion about this, and she will be given a course of Augmentin. The patient is to follow with her primary care physician in the next few days and was otherwise invited back to the ER with any new, worsening, or concerning symptoms. She was pleased with plan of care rated her discomfort a 3/10 at the time of departure. The chart was completed utilizing [employer] Speech Voice Recognition Software. Grammatical errors, random word insertions, pronoun errors, and incomplete sentences are an occasional consequence of this system due to software limitations, ambient noise, and hardware issues. Any formal questions or concerns about the content, text, or information contained within the body of this dictation should be directly addressed to the provider for clarification. . Medical Decision Differential diagnosis: Etiologies such as cellulitis, abscess, MRSA infection, DVT, necrotizing fasciitis, dermatitis, drug eruption, as well as others were entertained.. Impression Primary Impression: Infected finger Departure Information Dispostion Home / Self-Care Condition GOOD Prescriptions Amoxicillin & Pot Clavulanate (Augmentin 875-125 mg) 1 Tab Tab 1 TAB PO BID for 9 Days, #18 TAB Prov: Vinay Taylor PA-C 03/22/17 Forms HOME CARE DOCUMENTATION FORM, IMPORTANT VISIT INFORMATION Patient Instructions My [facility] Additional Instructions You were seen and evaluated today on an emergency basis only. This is not a substitute for, or an effort to provide, complete comprehensive medical care. It is not possible to recognize and treat all injuries or illnesses in a single emergency department visit. For this reason it is recommended that you followup with your primary care physician this week for ongoing care and evaluation. Amoxicillin Clavulanate (Augmentin) 875mg: Take one pill twice daily for 10 total days for your infection. All antibiotics can cause diarrhea. If this occurs and you feel worse or it does not resolve in 1-2 days follow up with your doctor or return to the Emergency Department as this could be signs of serious underlying problems. Any medication can cause an allergic reaction, stop the pills immediately and return to the ER for rash, hives, breathing difficulties, or swelling. You are welcome to return to the emergency department anytime with new, worsening, or concerning symptoms.
[2017-03-27] MEDS ORDERED: AMOX875T PO (09:37)
[2017-03-27] MEDS ORDERED: AZEL30SP NAE (09:37)
[2017-03-27] MEDS ORDERED: BACL10TA PO (09:37)
[2017-03-27] MEDS ORDERED: POLY335019 PO (09:37)
[2017-03-27] MEDS ORDERED: [UNRECOGNIZED DRUG - CODE] RE (09:37)
[2017-03-27] MEDS ORDERED: LAMO150T32 PO (09:37)
[2017-03-27] MEDS ORDERED: POTA10CA28 PO (09:37)
[2017-04-12] MEDS ORDERED: ASPEC325 PO (08:28)
[2017-04-12] MEDS ORDERED: HYDR-5688 PO (08:28)
[2017-06-22] MEDS ORDERED: DIVA500T59 PO (07:45)
[2017-07-27] MEDS ORDERED: CYCL10TA6 PO (08:01)
[2017-09-28] MEDS ORDERED: AMT24 PO (08:11)
[2017-09-28] MEDS ORDERED: AMOX1TAB42 PO (08:11)
[2017-09-28] MEDS ORDERED: PRD/1 PO (08:12)
[2017-10-18] MEDS ORDERED: CEPH500C2 PO (08:34)
[2017-10-18] MEDS ORDERED: HYDR-5806 PO (08:34)
== END 2017-03-22 05:12 | disposition home or self-care (01) ==
LOC: C.EDB 04:28 → C.EDA 05:12
DX: B99.9 Unspecified infectious disease (principal); F41.9 Anxiety disorder, unspecified; F31.9 Bipolar disorder, unspecified; K21.9 Gastro-esophageal reflux disease without esophagitis; J44.9 Chronic obstructive pulmonary disease, unspecified; B19.20 Unspecified viral hepatitis C without hepatic coma; K31.84 Gastroparesis; M19.90 Unspecified osteoarthritis, unspecified site; M81.0 Age-related osteoporosis without current pathological fracture; G89.29 Other chronic pain; K86.1 Other chronic pancreatitis; F17.200 Nicotine dependence, unspecified, uncomplicated; Z86.19 Personal history of other infectious and parasitic diseases; Z87.828 Personal history of other (healed) physical injury and trauma; Z98.1 Arthrodesis status; Z98.51 Tubal ligation status; Z98.890 Other specified postprocedural states; Z79.899 Other long term (current) drug therapy; Z88.3 Allergy status to other anti-infective agents; Z88.8 Allergy status to other drugs, medicaments and biological substances; Z83.3 Family history of diabetes mellitus; Z80.0 Family history of malignant neoplasm of digestive organs; Z82.49 Family history of ischemic heart disease and other diseases of the circulatory system; Z83.79 Family history of other diseases of the digestive system; Z84.1 Family history of disorders of kidney and ureter

== ENCOUNTER 2017-03-27 10:54 | Emergency (ER) | payer OTHER ==
[~2017-03-27] VITALS: Ht 157.5 cm; Wt 68.0 kg
[~2017-03-27 10:54] MED LIST changes: +AMOX875T PO; +AZEL30SP NAE; +BACL10TA PO; +LAMO150T32 PO; +NYST1POW7 TOP; -NYSTATIN POWDER EXT; +POLY335019 PO; +POTA10CA28 PO; +[UNRECOGNIZED DRUG - CODE] RE
[2017-03-27 11:04] VITALS: TEMP 37.5; Ht 157.5 cm; Wt 68.0 kg
[2017-03-27] MEDS ORDERED: XYLOCAINE 1%/SOD BICARB 20 ML VIAL INFIL ONE (11:30)
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
[2017-03-27 12:59] VITALS: BP 128/88; PULSE 74; O2SAT 99
[2017-04-12] MEDS ORDERED: HYDR-5688 PO (08:28)
[2017-04-12] MEDS ORDERED: ASPEC325 PO (08:28)
[2017-06-22] MEDS ORDERED: DIVA500T59 PO (07:45)
[2017-07-27] MEDS ORDERED: CYCL10TA6 PO (08:01)
[2017-09-28] MEDS ORDERED: AMT24 PO (08:11)
[2017-09-28] MEDS ORDERED: AMOX1TAB42 PO (08:11)
[2017-09-28] MEDS ORDERED: PRD/1 PO (08:12)
[2017-10-18] MEDS ORDERED: CEPH500C2 PO (08:34)
[2017-10-18] MEDS ORDERED: HYDR-5806 PO (08:34)
== END 2017-03-27 13:00 | disposition home or self-care (01) ==
LOC: C.EDB 10:59 → C.EDD 13:00
DX: B99.9 Unspecified infectious disease (principal); F41.9 Anxiety disorder, unspecified; F31.9 Bipolar disorder, unspecified; J44.9 Chronic obstructive pulmonary disease, unspecified; K21.9 Gastro-esophageal reflux disease without esophagitis; K31.84 Gastroparesis; B19.20 Unspecified viral hepatitis C without hepatic coma; G89.29 Other chronic pain; M19.90 Unspecified osteoarthritis, unspecified site; M81.0 Age-related osteoporosis without current pathological fracture; Z87.828 Personal history of other (healed) physical injury and trauma; Z86.19 Personal history of other infectious and parasitic diseases; Z98.1 Arthrodesis status; Z98.51 Tubal ligation status; Z98.890 Other specified postprocedural states; Z79.899 Other long term (current) drug therapy; Z88.3 Allergy status to other anti-infective agents; Z88.8 Allergy status to other drugs, medicaments and biological substances; Z01.818 Encounter for other preprocedural examination

== ENCOUNTER 2017-04-10 06:25 | Inpatient (IN) | payer OTHER ==
[2017-03-27 09:37] VITALS: BMI 27.0
--- NOTE | 2017-03-27 10:18 | PAT Medication Instructions ---
Service Date March 27, 2017. Current Home Medication List Albuterol Hfa (Ventolin Hfa), 2 PUFFS INH QID PRN for SOB/Wheezing Amlodipine (Norvasc), 2.5 MG PO DAILY PRN for SVT Amoxicillin & Pot Clavulanate (Augmentin 875-125 mg), 1 TAB PO BID Arformoterol Tartrate (Brovana), 15 MCG INH BID PRN for SOB/Wheezing Aripiprazole (Abilify), 30 MG PO QAM Azelastine Hcl-Fluticasone Pro (Dymista), 1 SPRY [place] BID Baclofen (Lioresal), 10 MG PO TID Bisacodyl (Dulcolax), 1 SUPP AK WK PRN for Constipation Buspirone Hcl (Buspirone Hcl), 20 TAB PO BID Calcium Carbonate-Vitamin D (Calcium + D3 600-200 mg-Unit), 1 TAB PO QAM Cetirizine (Zyrtec), 10 MG PO QAM Cholecalciferol (Vitamin D3), 1 TAB PO MONTHLY Dexlansoprazole (Dexilant), 1 CAP PO QAM Fentanyl (Duragesic), 1 DOSE EXT Q72H Ferrous Sulfate (Ferrous Sulfate), 1 TAB PO QAM Folic Acid (Folvite), 1 MG PO QAM Furosemide (Lasix), 20 MG PO DAILY PRN for SWELLING Glycerin (Laxative) (Cvs Glycerin Adult), 1 SUPP RE UD PRN for PRN Lamotrigine (Lamictal), 1 TAB PO BID Lorazepam (Ativan), 1 MG PO TID Metoclopramide Hcl (Reglan), 5 MG PO ACHS Metoprolol Succinate (Toprol Xl), 25 MG PO QAM Mirabegron (Myrbetriq Er), 50 MG PO QAM Montelukast Sodium (Singulair), 10 MG PO HS Multiple Vitamins W/ Minerals (Preservision/Lutein), 1 CAP PO QAM Multivitamin (Multivitamin), 1 TAB PO QAM Nystatin (Topical) (Nystatin), 1 APPLN TOP DIRECTED PRN for Affected Skin Folds Ondansetron Hcl (Zofran), 8 MG PO Q6H PRN for Nausea Polyethylene Glycol 3350 (Miralax), 17 GM PO DAILY PRN for PRN Potassium Chloride (Micro-K Ext Rel), 10 MEQ PO DAILY PRN for PRN Ranitidine Hcl (Zantac), 300 MG PO QAM Sulindac (Sulindac), 1 TAB PO BID Topiramate (Topamax), 100 MG PO BID Venlafaxine Hcl (Effexor), 75 MG PO QAM Venlafaxine Hcl (Effexor Extended Rel), 300 MG PO QAM Zolpidem Tartrate (Ambien), 10 MG PO HS Medication Instructions For Your Scheduled Surgery Amoxicillin & Pot Clavulanate (Augmentin 875-125 mg), 1 TAB PO BID (will finish prior to surgery) Cholecalciferol (Vitamin D3), 1 TAB PO MONTHLY (continue as usual) Fentanyl (Duragesic), 1 DOSE EXT Q72H (continue as usual) Sulindac (Sulindac), 1 TAB PO BID (patient will check with surgeon for instructions) - Hold the following medications 24 hours prior to surgery: Nystatin (Topical) (Nystatin), 1 APPLN TOP DIRECTED PRN for Affected Skin Folds - Hold the following medications the morning of surgery: Potassium Chloride (Micro-K Ext Rel), 10 MEQ PO DAILY PRN for PRN Polyethylene Glycol 3350 (Miralax), 17 GM PO DAILY PRN for PRN Multivitamin (Multivitamin), 1 TAB PO QAM Multiple Vitamins W/ Minerals (Preservision/Lutein), 1 CAP PO QAM Mirabegron (Myrbetriq Er), 50 MG PO QAM Metoclopramide Hcl (Reglan), 5 MG PO ACHS Ferrous Sulfate (Ferrous Sulfate), 1 TAB PO QAM Folic Acid (Folvite), 1 MG PO QAM Furosemide (Lasix), 20 MG PO DAILY PRN for SWELLING Glycerin (Laxative) (Cvs Glycerin Adult), 1 SUPP RE UD PRN for PRN Calcium Carbonate-Vitamin D (Calcium + D3 600-200 mg-Unit), 1 TAB PO QAM Cetirizine (Zyrtec), 10 MG PO QAM Baclofen (Lioresal), 10 MG PO TID - Take the following medications the morning of surgery with a sip of water: Venlafaxine Hcl (Effexor) Topiramate (Topamax), 100 MG PO BID Ranitidine Hcl (Zantac), 300 MG PO QAM Ondansetron Hcl (Zofran), 8 MG PO Q6H PRN for Nausea (only if needed) Metoprolol Succinate (Toprol Xl), 25 MG PO QAM Lamotrigine (Lamictal), 1 TAB PO BID Lorazepam (Ativan), 1 MG PO TID Dexlansoprazole (Dexilant), 1 CAP PO QAM Buspirone Hcl (Buspirone Hcl), 20 TAB PO BID Azelastine Hcl-Fluticasone Pro (Dymista), 1 SPRY [place] BID Aripiprazole (Abilify), 30 MG PO QAM Arformoterol Tartrate (Brovana), 15 MCG INH BID PRN for SOB/Wheezing Amlodipine (Norvasc), 2.5 MG PO DAILY PRN for SVT Albuterol Hfa (Ventolin Hfa), 2 PUFFS INH QID PRN for SOB/Wheezing (bring with you to hospital on day of surgery) - Take the following medications as scheduled the night before surgery: Zolpidem Tartrate (Ambien), 10 MG PO HS Topiramate (Topamax), 100 MG PO BID Montelukast Sodium (Singulair), 10 MG PO HS Metoclopramide Hcl (Reglan), 5 MG PO ACHS Lamotrigine (Lamictal), 1 TAB PO BID Lorazepam (Ativan), 1 MG PO TID Buspirone Hcl (Buspirone Hcl), 20 TAB PO BID Baclofen (Lioresal), 10 MG PO TID Bisacodyl (Dulcolax), 1 SUPP AK WK PRN for Constipation Azelastine Hcl-Fluticasone Pro (Dymista), 1 SPRY [place] BID Arformoterol Tartrate (Brovana), 15 MCG INH BID PRN for SOB/Wheezing Albuterol Hfa (Ventolin Hfa), 2 PUFFS INH QID PRN for SOB/Wheezing If you have any questions please call us at [phone] or [phone] ( [place]) or [phone]
[2017-03-27 11:28] LABS: URINE APPEARANCE CLEAR (CLEAR); URINE BILIRUBIN NEG (NEG); URINE COLOR YELLOW; URINE NITRITE NEG (NEG); URINE PH 5.5 (4.5-7.5); URINE SPECIFIC GRAVITY 1.008 (1.000-1.030); UROBILINOGEN NEG (NEG)
[2017-03-27 11:31] LABS: MANUAL MICROSCOPIC REQUIRED? NO; REVIEW REQ? NO
[2017-03-27 11:34] LABS: PROTHROMBIN TIME (PATIENT) 10.3 SECONDS (9.0-12.0)
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
[2017-04-10] VITALS (8 sets, daily range): BP systolic 93–112; BP diastolic 58–79; PULSE 78–98; TEMP 36.4–36.6; O2SAT 94–99; Ht 160 cm; Wt 69.2 kg
[~2017-04-10] VITALS: Ht 160 cm; Wt 69.2 kg
[2017-04-10] MEDS: TRANEXAMIC ACID INJ 1,000 MG in SODIUM CHLORIDE 0.9% 100ML 100 ML IV SCH ×2 (06:00→06:30)
[~2017-04-10 06:25] MED LIST changes: +ACETAMINOPHEN 500 MG TAB PO SCH; -ALUMCHW2 PO; +CEFAZOLIN 2000 MG/60 ML D5W 60 ML IV SCH; +FAMOTIDINE 20 MG TAB PO SCH; -FLUT0.15 NAE; +GABAPENTIN 300 MG CAP PO SCH; +LACTATED RINGER'S 1000ML 1,000 ML IV SCH; +LACTATED RINGER'S 1000ML 500 ML IV ONE; +LACTATED RINGER'S 1000ML IV SCH; -LAMO100T16 PO; -LAMO25TA PO; +ROPIVACAINE 5MG/ML 30 ML 150 MG, BUPIVACAINE/EPINEPHR 0.5% MPF 30 ML, KETOROLAC TROMETH... INFIL SCH
[2017-04-10] MEDS ORDERED: BUPIVACAINE 0.5 % 5 MG/1 ML PF 10ML VIAL ONE (07:28)
[2017-04-10] MEDS ORDERED: EpHEDrine SULFATE INJ 50 MG/ML AMP IV PRN (08:15)
[2017-04-10] MEDS ORDERED: ATROPINE SULFATE 0.1 MG/ML 5ML SYR IV PRN (08:15)
[2017-04-10] MEDS ORDERED: LABETALOL HCL IV 5 MG/ML 20ML IV PRN (08:15)
[2017-04-10] MEDS ORDERED: ONDANSETRON INJ 2 MG/ML 2 ML VIAL IV PRN ×2 (08:15→12:45)
[2017-04-10] MEDS ORDERED: MEPERIDINE HCL 25 MG/ML CARP IV PRN (08:15)
[2017-04-10] MEDS ORDERED: FENTANYL CITRATE INJ 50 MCG/1 ML 2 ML VIAL IV PRN (08:15)
[2017-04-10] MEDS ORDERED: HYDROmorphone INJ 1 MG/ML SYR IV PRN (08:15)
[2017-04-10] MEDS ORDERED: MIDAZOLAM HCL 1 MG/ML 2ML VIAL ONE (08:25)
[2017-04-10] MEDS ORDERED: FENTANYL CITRATE INJ 50 MCG/1 ML 2 ML VIAL ONE ×5 (08:25→13:30)
[2017-04-10] MEDS ORDERED: ORTHO JOINT ANESTHETIC ONE (09:05)
[2017-04-10] MEDS ORDERED: BACITRACIN 50000 UNIT VIAL ONE (09:06)
[2017-04-10] MEDS ORDERED: ROCURONIUM BROMIDE 10 MG/ML 5 ML VIAL ONE (10:14)
[2017-04-10] MEDS ORDERED: PROPOFOL IV EMULSION 10 MG/ML 20 ML VIAL IV ONE (10:14)
[2017-04-10] MEDS ORDERED: LIDOCAINE HCL 2% 2 ML VIAL (20MG/ML) ONE (10:14)
[2017-04-10] MEDS ORDERED: NEOSTIGMINE METHYLSULFATE 5 MG/5 ML SYR ONE (11:01)
[2017-04-10] MEDS ORDERED: ONDANSETRON INJ 2 MG/ML 2 ML VIAL ONE (11:01)
[2017-04-10] MEDS ORDERED: GLYCOPYRROLATE INJ 0.2 MG/ML VIAL ONE (11:01)
--- NOTE | 2017-04-10 11:56 | DIAGNOSTIC IMAGING REPORT ---
RIGHT HIP UNILATERAL 1 VIEW CLINICAL HISTORY: Right total hip arthroplasty. COMPARISON: Pelvis and right hip 03/18/2017. FINDINGS: There is a right total arthroplasty. Lucencies at the greater trochanter is likely due to the prior cannulated screws. However, a nondisplaced fracture cannot be excluded. Cortical plates and screws at the old, healed right acetabular fracture. IMPRESSION: Intraoperative study for a right total hip arthroplasty. The hardware appears intact. Lucencies at the greater trochanter favor prior screw placement. However, a nondisplaced fracture cannot be entirely excluded. Electronically signed by: Ricardo Anthony M.D. 04/10/2017 11:55 AM Dictated Date/Time: 04/10/2017 11:51 AM
--- NOTE | 2017-04-10 12:42 | [facility] Post Operative Brief Note ---
Immediate Operative Summary Operative Date April 10, 2017. Pre-Operative Diagnosis Osteoarthritis right hip Post-Operative Diagnosis Same Procedure(s) Performed Right Total Hip Arthroplasty Cemented with Removal of Hardware Surgeon Dr Ziegler Executive Secretary Surgeon(s) Sharif Miller PA-C Estimated Blood Loss 450ML Findings as above Specimens A. right femoral head B. explanted hardware right hip Complication(s) None Disposition Recovery Room / PACU
[2017-04-10] MEDS ORDERED: ONDANSETRON 8 MG TAB PO PRN (12:45)
[2017-04-10] MEDS ORDERED: SOD PHOSPHATE/SOD BIPHOSPHATE ENEMA 132 ML BTL PR PRN (12:45)
[2017-04-10] MEDS ORDERED: AMLODIPINE BESYLATE 5 MG TAB PO PRN (12:45)
[2017-04-10] MEDS ORDERED: BISACODYL 10 MG SUPP PR PRN (12:45)
[2017-04-10] MEDS ORDERED: POTASSIUM CHLORIDE 10 MEQ TABCR PO PRN (12:45)
[2017-04-10] MEDS ORDERED: ALBUTEROL HFA 8 GM INHALER INH PRN (12:45)
[2017-04-10] MEDS ORDERED: SILVER SULFADIAZINE 1% CR 50 GM JAR EXT PRN (12:45)
[2017-04-10] MEDS ORDERED: FUROSEMIDE 20 MG TAB PO PRN (12:45)
[2017-04-10] MEDS ORDERED: MAGNESIUM HYDROXIDE SUSP 30 ML UDC PO PRN (12:45)
[2017-04-10] MEDS ORDERED: ARFORMOTEROL TART 15MCG/2ML VIAL INH PRN (12:45)
[2017-04-10] MEDS ORDERED: METOCLOPRAMIDE HCL INJ 5 MG/ML 2 ML VIAL IV PRN (12:45)
[2017-04-10] MEDS ORDERED: HYDROmorphone INJ 1 MG/ML SYR ONE ×2 (13:30→14:35)
--- NOTE | 2017-04-10 15:05 | Anesthesiology Progress Note ---
Anesthesia Post Op Note Date & Time April 10, 2017 at 15:06 Vital Signs Pain Intensity: 3 Vital Signs Past 12 Hours Date Time Temp Pulse Resp B/P Pulse Ox O2 Delivery O2 Flow Rate FiO2 04/10/17 14:07 36.5 93 16 98/73 98 Nasal Cannula 2 04/10/17 13:57 87 16 04/10/17 13:57 87 16 100 04/10/17 13:56 92/70 04/10/17 13:52 80 10 100 04/10/17 13:52 80 10 04/10/17 13:51 113/74 04/10/17 13:47 83 12 100 04/10/17 13:47 83 12 04/10/17 13:46 102/74 04/10/17 13:42 76 15 04/10/17 13:42 76 15 100 04/10/17 13:41 105/67 04/10/17 13:37 74 14 04/10/17 13:37 74 14 100 04/10/17 13:36 117/73 04/10/17 13:32 74 16 04/10/17 13:32 74 16 100 04/10/17 13:31 104/82 04/10/17 13:27 74 20 04/10/17 13:27 74 20 139/76 100 04/10/17 13:23 139/68 04/10/17 13:22 79 16 100 04/10/17 13:22 79 16 04/10/17 13:17 36.1 76 12 131/105 100 Mask 10 04/10/17 07:06 36.6 78 20 112/79 97 Room Air Notes Mental Status: alert / awake / arousable, participated in evaluation Pt Amnestic to Procedure: Yes Nausea / Vomiting: adequately controlled Pain: adequately controlled Airway Patency, RR, SpO2: stable & adequate BP & HR: stable & adequate Hydration State: stable & adequate Anesthetic Complications: no major complications apparent
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
[2017-04-10] MEDS ORDERED: EFFSR/75 PO (16:42)
[2017-04-10] MEDS: CHECK FENTANYL PATCH PLACEMENT SCH (16:53)
[2017-04-10] MEDS: SODIUM CHLORIDE 0.9% 1000ML 1,000 ML IV SCH ×2 (17:49→22:41)
[2017-04-10] MEDS: METOCLOPRAMIDE HCL 5 MG TAB PO SCH ×2 (17:50→20:48)
[2017-04-10] MEDS: ACETAMINOPHEN IV 1,000 MG in EMPTY BAG 0 ML IV SCH (17:58)
[2017-04-10] MEDS: CEFAZOLIN IV 1,000 MG in DEXTROSE 5% 50ML 50 ML IV SCH (18:24)
[2017-04-10] MEDS: OXYCODONE HCL IR 5 MG TAB (IMMEDIATE RELEASE) PO PRN (19:03)
[2017-04-10] MEDS: SENNA 8.6 MG TAB PO SCH (20:43)
[2017-04-10] MEDS: KETOROLAC TROMETHAMINE 30 MG/ML VIAL IV. SCH (20:45)
[2017-04-10] MEDS: LORAZEPAM 1 MG TAB PO SCH (20:46)
[2017-04-10] MEDS: ZOLPIDEM TARTRATE 10 MG TAB PO SCH (20:46)
[2017-04-10] MEDS: TOPIRAMATE 100 MG TAB PO SCH (20:48)
[2017-04-10] MEDS: DOCUSATE SODIUM 100 MG CAP PO SCH (20:48)
[2017-04-10] MEDS: ASPIRIN 325 MG ECTAB PO SCH (20:49)
[2017-04-10] MEDS: MONTELUKAST SOD 10 MG TAB PO SCH (20:50)
[2017-04-10] MEDS: BACLOFEN 10 MG TAB PO SCH (20:51)
[2017-04-10] MEDS ORDERED: [UNRECOGNIZED DRUG - OTHER] NAE SCH (21:00)
[2017-04-11] VITALS (13 sets, daily range): BP systolic 83–128; BP diastolic 51–78; PULSE 85–98; TEMP 36.4–37.3; O2SAT 93–99
[2017-04-11] MEDS: CHECK FENTANYL PATCH PLACEMENT SCH ×3 (00:20→15:34)
[2017-04-11] MEDS: OXYCODONE HCL IR 5 MG TAB (IMMEDIATE RELEASE) PO PRN ×2 (00:24→05:17)
[2017-04-11] MEDS: KETOROLAC TROMETHAMINE 30 MG/ML VIAL IV. SCH ×4 (01:56→20:12)
[2017-04-11] MEDS: ACETAMINOPHEN IV 1,000 MG in EMPTY BAG 0 ML IV SCH (01:57)
[2017-04-11] MEDS: CEFAZOLIN IV 1,000 MG in DEXTROSE 5% 50ML 50 ML IV SCH (02:26)
[2017-04-11 05:54] LABS: BASO % 0.2 %; BASO ABS # 0.02 K/uL (0-0.2); EOS % 0.3 %; HEMATOCRIT 26.1 % (37-47); IG% 0.4 %; LYMPH % 21.9 %; LYMPH ABS # 2.61 K/uL (1.2-3.4); MEAN CELL VOLUME 102.8 fL (80-100); MEAN CORPUSCULAR HEMOGLOBIN 34.3 pg (25-34); MEAN CORPUSCULAR HGB CONC 33.3 g/dl (32-36); MEAN PLATELET VOLUME 8.5 fL (7.4-10.4); MONO % 11.5 %; NEUT % 65.7 %; PLATELET COUNT 210 K/uL (130-400); RED BLOOD COUNT 2.54 M/uL (4.2-5.4); WHITE BLOOD COUNT 11.91 K/uL (4.8-10.8)
[2017-04-11 06:27] LABS: COMPLETE YES
[2017-04-11 06:32] LABS: BUN/CREATININE RATIO 14.6 (10-20); CALCIUM 7.7 mg/dl (8.5-10.1); CREATININE 0.69 mg/dl (0.60-1.20); POTASSIUM 3.8 mmol/L (3.5-5.1)
[2017-04-11] MEDS: RANITIDINE HCL 150 MG TAB PO SCH (08:09)
[2017-04-11] MEDS: DOCUSATE SODIUM 100 MG CAP PO SCH ×2 (08:09→20:32)
[2017-04-11] MEDS: BACLOFEN 10 MG TAB PO SCH ×3 (08:09→20:31)
[2017-04-11] MEDS: METOCLOPRAMIDE HCL 5 MG TAB PO SCH ×4 (08:09→20:34)
[2017-04-11] MEDS: PANTOprazole SOD 40 MG TAB PO SCH (08:09)
[2017-04-11] MEDS: CETIRIZINE HCL 10 MG TAB PO SCH (08:09)
[2017-04-11] MEDS: MIRABEGRON ER 25 MG TAB PO SCH (08:10)
[2017-04-11] MEDS: TOPIRAMATE 100 MG TAB PO SCH ×2 (08:11→20:32)
[2017-04-11] MEDS: MULTIVITAMIN TAB PO SCH (08:11)
[2017-04-11] MEDS: ARIPIprazole TAB 15 MG TAB PO SCH (08:11)
[2017-04-11] MEDS: VENLAFAXINE HCL XR 75 MG CAPXR PO SCH (08:11)
[2017-04-11] MEDS: VENLAFAXINE HCL XR 150 MG CAPXR PO SCH (08:12)
[2017-04-11] MEDS: CALCIUM 600MG + VIT D 400 IU TAB PO SCH (08:12)
[2017-04-11] MEDS: FERROUS SULFATE 325 MG TAB PO SCH (08:12)
[2017-04-11] MEDS: METOPROLOL SUCC 25MG EXT REL TAB PO SCH (08:13)
[2017-04-11] MEDS: CEROVITE ADV FORMULA TAB PO SCH (08:13)
[2017-04-11] MEDS: ASPIRIN 325 MG ECTAB PO SCH ×2 (08:13→20:30)
[2017-04-11] MEDS: LORAZEPAM 1 MG TAB PO SCH ×3 (08:15→20:30)
[2017-04-11] MEDS: SODIUM CHLORIDE 0.9% 1000ML 1,000 ML IV SCH (08:15)
--- NOTE | 2017-04-11 08:41 | PROGRESS NOTE ---
DATE: 04/11/2017 DATE: 04/11/2017. CHIEF COMPLAINT: Status post right total hip arthroplasty postop day #1. PROGRESS: Jennifer was seen and examined at bedside today. Overall, she was having some soreness in her hip, but she was fairly optimistic. A lot of her preoperative pain was gone, she now has surgical pain. She was up 3 times going to the bathroom. PHYSICAL EXAMINATION: RIGHT HIP: The dressing is clean and dry and the drain is to suction. Her leg lengths are equal. She has active dorsiflexion and plantarflexion of her right ankle. LABORATORY DATA: She has an H\T\H today of 8.7 and 26.1. Her glucose is 97. Her vital signs are relatively stable on room air. She is a little bit hypotensive. The Hemovac has put out 225 so far. X-rays postoperatively have not been done yet, they were ordered today. IMPRESSION: Status post right total hip arthroplasty postop day #1. PLAN: At this point, she is doing as well as expected. I am going to stop her oxycodone and her Ofirmev and start her on Elizabeth per her request. I am also going to give her 1 unit of packed red blood cells. She is hypotensive and I do expect her hemoglobin to drop a little bit more tomorrow so I am just trying to stay on top of it. She can continue to be up and ambulating with physical therapy today. She is on aspirin 325 mg twice a day for DVT prophylaxis. She is hoping for discharge to [facility]. Case management will be working on her for that.
[2017-04-11] MEDS: HYDROCODONE/ACETAMOPHEN 5/325MG TAB PO PRN ×2 (09:55→20:11)
[2017-04-11] MEDS: MoRPHine SULFATE 2 MG/ML CARP IV PRN (12:14)
--- NOTE | 2017-04-11 14:40 | DIAGNOSTIC IMAGING REPORT ---
SINGLE VIEW PELVIS; 2 VIEWS RIGHT HIP CLINICAL HISTORY: Status post hip arthroplasty. FINDINGS: An AP view of the pelvis with AP and frog-leg views of the right hip are compared to study dated 03/18/2017. The skeletal structures are osteopenic. A bipolar right hip arthroplasty is new from previous. A single cortical lag screw transfixes the acetabular cup. No acute fracture is identified. A screw track is present in the greater trochanter of the right femur. Soft tissue edema overlying the right hip and a surgical drain are expected postoperative changes. No acute fracture is seen. Mild arthritic change is noted in the left hip. There are chronic postoperative changes and posttraumatic deformity with buttress plate fixation involving the right acetabulum and the right iliac wing. There is also extensive lumbosacral fusion hardware and iliac bolts. There is a nonobstructed abdominal bowel gas pattern. Moderate constipation is observed. IMPRESSION: 1. There are expected postoperative findings status post right hip arthroplasty. No acute fracture is seen. 2. Osteopenia with extensive posttraumatic and postoperative changes as above. Electronically signed by: Jeffry Colunga M.D. 04/11/2017 2:39 PM Dictated Date/Time: 04/11/2017 2:36 PM
[2017-04-11] MEDS ORDERED: NURSING VERBAL MED ORDER ONE (17:45)
[2017-04-11] MEDS: SENNA 8.6 MG TAB PO SCH (20:30)
[2017-04-11] MEDS: ZOLPIDEM TARTRATE 10 MG TAB PO SCH (21:59)
[2017-04-11] MEDS: MONTELUKAST SOD 10 MG TAB PO SCH (21:59)
[2017-04-12 00:01] VITALS: BP 95/61; PULSE 87; TEMP 36.7; O2SAT 94
[2017-04-12] MEDS: CHECK FENTANYL PATCH PLACEMENT SCH ×3 (00:31→15:45)
[2017-04-12] MEDS: KETOROLAC TROMETHAMINE 30 MG/ML VIAL IV. SCH ×3 (01:59→14:10)
[2017-04-12] MEDS: HYDROCODONE/ACETAMOPHEN 5/325MG TAB PO PRN ×3 (05:07→19:34)
[2017-04-12 07:13] VITALS: BP 122/71; PULSE 93; TEMP 36.4; O2SAT 96
[2017-04-12] MEDS: MoRPHine SULFATE 2 MG/ML CARP IV PRN ×2 (08:13→14:10)
[2017-04-12] MEDS ORDERED: ASPEC325 PO (08:28)
[2017-04-12] MEDS ORDERED: HYDR-5688 PO (08:28)
--- NOTE | 2017-04-12 08:31 | Discharge Instructions ---
Discharge Instructions Date of Service April 12, 2017. Admission Reason for Admission: Right Hip Osteoarthritis Discharge Discharge Diagnosis / Problem: Right Total Hip Discharge Goals Goal(s): Decrease discomfort, Improve function Activity Recommendations Activity Level: Up Ad Gabrielle Shower/Bathe: may shower/bathe in 3 days . Additional Information Patient informed of condition: Yes Advance Directives: Yes DNR: No Level of Care: Acute Rehab Communicable Disease: No Prognosis: Improving Bojorquez Catheter: No Instructions / Follow-Up Instructions / Follow-Up Activity and Therapy Recommendations: * If you are using [facility] then Physical Therapy will be provided until they feel you are ready to start Outpatient Physical Therapy. If you are not using a Home Health agency then Outpatient Physical Therapy should start about 3-5 days from your day of surgery. Therapy will last about 3-6 weeks * You were shown a series of exercises in the hospital. Do these exercises three times each day including the exercises you were shown in physical therapy. * Get up and walk several times each day.~ For the first four weeks, try not to stand or walk for more than one hour at a time. If you do stand or walk for more than one hour, you will not hurt anything, but your leg will likely swell.~ ~ * As you feel comfortable, you may change from the walker or crutches to a cane and~then to independent walking. Medications: * Narcotic You will likely be sent home from the hospital with a prescription for the narcotic pain medication that worked best throughout your stay. * Aspirin Most patients will be required to take Aspirin 325mg twice a day for 6 weeks after surgery. This is obtained [id number] and a prescription is not necessary. * Other medications may be prescribed for specific circumstances. If you have any questions, please call the office at . * Resume previous home medications unless otherwise instructed TEDs/Elastic Stockings: The white elastic stockings help limit swelling and prevent blood clots from forming in your legs. The more you wear them, the more they work. Wear them for six weeks. Dressing Care: You will likely have a Prineo dressing covering your incision. This looks like a glued on clear mesh dressing. Do not remove this dressing until you follow- up in my office in 2-3 weeks. Its pretty hard to peel it off. You may leave the Prineo dressing uncovered or cover it if it is draining a little bit. No further dressing care is required Showering: You may shower 3 days from the day of surgery. Leave the Prineo dressing intact and let the soapy shower water run over it. Do not scrub or soak the dressing or the incision. Things To Watch For: * Drainage from the incision site that occurs more than one week after your surgery. * Increased redness at the incision site. * Fever above 102 degrees Fahrenheit. * Unusual chest pain or shortness of breath. * Call [facility] at with any of the above problems Follow-Up Visit: Follow-up with Dr. Ziegler 2-3 weeks after your day of surgery. An appointment was probably scheduled when you signed-up for surgery in the office. If you have any questions call Office Instructions: More detailed instructions as well as Frequently Asked Questions were provided in a folder by our office when you signed-up for surgery. Please review these instructions when you get home. If you have any further questions or concerns, please feel free to call the office at [phone] Current Hospital Diet Patient's current hospital diet: Regular Diet Discharge Diet Recommended Diet: Regular Diet Procedures Procedures Performed: Right Total Hip Arthroplasty Cemented with Removal of Hardware Pending Studies Studies pending at discharge: no Medical Emergencies . Who to Call and When: Medical Emergencies: If at any time you feel your situation is an emergency, please call 911 immediately. . Non-Emergent Contact Non-Emergency issues call your: Surgeon Call Non-Emergent contact if: wound has increased drainage, wound has increased redness . . "Provider Documentation" section prepared by Florencio Ziegler. . Core Measure Problem Core Measures: None
[2017-04-12] MEDS: METOCLOPRAMIDE HCL 5 MG TAB PO SCH ×4 (08:33→20:47)
--- NOTE | 2017-04-12 08:51 | PROGRESS NOTE ---
DATE: 04/12/2017 CHIEF COMPLAINT: Status post right total hip arthroplasty postoperative day #2. PROGRESS: Jennifer was seen and examined at bedside today. Overall, she is doing very well. She has some soreness in her hip as to be expected, but she has been up and ambulating well with physical therapy and she says most of her preoperative pain has gone. She is optimistic about that. She has no other complaints. PHYSICAL EXAMINATION: RIGHT HIP: The dressing has been changed and the drain has been pulled. Her leg lengths are equal. She has active dorsiflexion and plantarflexion of the right ankle and fixation is intact. LABORATORIES: Were not obtained this morning and have been ordered. Vital signs are relatively stable on room air. She is a little bit hypotensive. She is voiding on her own and has not had a bowel movement yet, but is passing gas. X-rays were reviewed of the hip and pelvis; show the prosthesis to be in anatomic alignment without any evidence of fracture, dislocation or loosening. IMPRESSION: Status post right total hip arthroplasty postoperative day #2. PLAN: At this point, she is doing well. We are waiting placement at [facility]. She will continue to work with physical therapy today. I did order an H\T\H to show that her blood counts are stable. She is on aspirin 325 mg twice a day for DVT prophylaxis. TANISHA
[2017-04-12 08:58] LABS: HEMATOCRIT 26.9 % (37-47)
[2017-04-12] MEDS: MULTIVITAMIN TAB PO SCH (10:00)
[2017-04-12] MEDS: BACLOFEN 10 MG TAB PO SCH ×3 (10:00→20:51)
[2017-04-12] MEDS: ASPIRIN 325 MG ECTAB PO SCH ×2 (10:00→20:48)
[2017-04-12] MEDS: VENLAFAXINE HCL XR 75 MG CAPXR PO SCH (10:00)
[2017-04-12] MEDS: CALCIUM 600MG + VIT D 400 IU TAB PO SCH (10:01)
[2017-04-12] MEDS: LORAZEPAM 1 MG TAB PO SCH ×3 (10:01→20:52)
[2017-04-12] MEDS: TOPIRAMATE 100 MG TAB PO SCH ×2 (10:01→20:46)
[2017-04-12] MEDS: VENLAFAXINE HCL XR 150 MG CAPXR PO SCH (10:01)
[2017-04-12] MEDS: MIRABEGRON ER 25 MG TAB PO SCH (10:01)
[2017-04-12] MEDS: RANITIDINE HCL 150 MG TAB PO SCH (10:02)
[2017-04-12] MEDS: CEROVITE ADV FORMULA TAB PO SCH (10:02)
[2017-04-12] MEDS: DOCUSATE SODIUM 100 MG CAP PO SCH ×2 (10:02→20:47)
[2017-04-12] MEDS: FERROUS SULFATE 325 MG TAB PO SCH (10:02)
[2017-04-12] MEDS: PANTOprazole SOD 40 MG TAB PO SCH (10:02)
[2017-04-12] MEDS: CETIRIZINE HCL 10 MG TAB PO SCH (10:02)
[2017-04-12] MEDS: ARIPIprazole TAB 15 MG TAB PO SCH (10:03)
[2017-04-12] MEDS: METOPROLOL SUCC 25MG EXT REL TAB PO SCH (11:08)
[2017-04-12 15:16] VITALS: BP 116/76; PULSE 86; TEMP 36.6; O2SAT 94
[2017-04-12] MEDS: MONTELUKAST SOD 10 MG TAB PO SCH (20:46)
[2017-04-12] MEDS: SENNA 8.6 MG TAB PO SCH (20:46)
[2017-04-12] MEDS: ZOLPIDEM TARTRATE 10 MG TAB PO SCH (22:08)
[2017-04-12 23:06] VITALS: BP 95/64; PULSE 77; TEMP 36.5; O2SAT 95
[2017-04-13] MEDS: CHECK FENTANYL PATCH PLACEMENT SCH ×3 (00:44→15:38)
[2017-04-13] MEDS: HYDROCODONE/ACETAMOPHEN 5/325MG TAB PO PRN ×4 (01:21→20:22)
[2017-04-13] MEDS ORDERED: FENTANYL PATCH REMOVE & WASTE SCH (05:59)
[2017-04-13] MEDS ORDERED: FENTANYL 25 MCG/HR TDSY TD SCH (06:00)
[2017-04-13 07:33] VITALS: BP 102/68; PULSE 78; TEMP 36.6; O2SAT 97
[2017-04-13] MEDS: LORAZEPAM 1 MG TAB PO SCH ×3 (08:13→20:27)
[2017-04-13] MEDS: BACLOFEN 10 MG TAB PO SCH ×3 (08:15→20:27)
[2017-04-13] MEDS: MIRABEGRON ER 25 MG TAB PO SCH ×2 (08:17→08:31)
[2017-04-13] MEDS: MULTIVITAMIN TAB PO SCH (08:17)
[2017-04-13] MEDS: CETIRIZINE HCL 10 MG TAB PO SCH (08:18)
[2017-04-13] MEDS: DOCUSATE SODIUM 100 MG CAP PO SCH ×2 (08:18→20:27)
[2017-04-13] MEDS: METOPROLOL SUCC 25MG EXT REL TAB PO SCH (08:19)
[2017-04-13] MEDS: CALCIUM 600MG + VIT D 400 IU TAB PO SCH (08:19)
[2017-04-13] MEDS: VENLAFAXINE HCL XR 75 MG CAPXR PO SCH (08:20)
[2017-04-13] MEDS: VENLAFAXINE HCL XR 150 MG CAPXR PO SCH (08:20)
[2017-04-13] MEDS: TOPIRAMATE 100 MG TAB PO SCH ×2 (08:20→20:27)
[2017-04-13] MEDS: ARIPIprazole TAB 15 MG TAB PO SCH (08:21)
[2017-04-13] MEDS: FERROUS SULFATE 325 MG TAB PO SCH (08:21)
[2017-04-13] MEDS: PANTOprazole SOD 40 MG TAB PO SCH (08:21)
[2017-04-13] MEDS: METOCLOPRAMIDE HCL 5 MG TAB PO SCH ×4 (08:21→20:27)
[2017-04-13] MEDS: RANITIDINE HCL 150 MG TAB PO SCH (08:22)
[2017-04-13] MEDS: CEROVITE ADV FORMULA TAB PO SCH (08:22)
[2017-04-13] MEDS: ASPIRIN 325 MG ECTAB PO SCH ×2 (08:22→20:27)
--- NOTE | 2017-04-13 09:28 | PROGRESS NOTE ---
DATE: 04/13/2017 CHIEF COMPLAINT: Status post right total hip arthroplasty postop day #3. PROGRESS: Jennifer was seen and examined at bedside today. Overall, she is doing very well. She has been ambulating with physical therapy. She has been having some soreness in her hip, but her preoperative pain is gone. She is happy with her progress. PHYSICAL EXAMINATION: RIGHT HIP: The dressing is clean and dry and the prineo is intact. Her leg lengths are equal. She has active dorsiflexion and plantarflexion of the right ankle. LABORATORY DATA: She had an H\T\H yesterday of 8.8 and 26.9. Her vital signs are all stable on room air. She is voiding on her own and has been passing gas. IMPRESSION: Status post right total hip arthroplasty postop day #3. PLAN: At this point, she is doing fairly well. There is a bed available for her at [facility]. So we will discharge her to home later today. She will be on aspirin 325 mg twice a day for DVT prophylaxis and will use [place] mainly for pain control. I will see her in my office in 2-3 weeks. TANISHA
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
[2017-04-13] MEDS: TRAMADOL HCL 50 MG TAB PO PRN (12:18)
[2017-04-13 15:11] VITALS: BP 92/59; PULSE 79; TEMP 36.4; O2SAT 94
[2017-04-13] MEDS: MONTELUKAST SOD 10 MG TAB PO SCH (20:27)
[2017-04-13] MEDS: SENNA 8.6 MG TAB PO SCH (20:27)
[2017-04-13] MEDS: ZOLPIDEM TARTRATE 10 MG TAB PO SCH (22:12)
[2017-04-13 23:46] VITALS: BP 105/66; PULSE 78; TEMP 36.3; O2SAT 95
[2017-04-14] MEDS: CHECK FENTANYL PATCH PLACEMENT SCH ×2 (00:04→08:50)
[2017-04-14] MEDS: HYDROCODONE/ACETAMOPHEN 5/325MG TAB PO PRN ×2 (04:23→10:34)
[2017-04-14 07:37] VITALS: BP 100/65; PULSE 88; TEMP 36.6; O2SAT 95
--- NOTE | 2017-04-14 07:57 | Anesthesiology Progress Note ---
Anesthesia Post Op Note Date & Time April 14, 2017 at 07:57 Vital Signs Pain Intensity: 9.0 Vital Signs Past 12 Hours Date Time Temp Pulse Resp B/P Pulse Ox O2 Delivery O2 Flow Rate FiO2 04/14/17 07:37 36.6 88 18 100/65 95 Room Air 04/13/17 23:55 Room Air 04/13/17 23:46 36.3 78 16 105/66 95 Room Air Notes Mental Status: alert / awake / arousable, participated in evaluation Pt Amnestic to Procedure: Yes Nausea / Vomiting: adequately controlled Pain: adequately controlled Airway Patency, RR, SpO2: stable & adequate BP & HR: stable & adequate Hydration State: stable & adequate Anesthetic Complications: no major complications apparent
[2017-04-14] MEDS: LORAZEPAM 1 MG TAB PO SCH ×2 (08:50→13:30)
[2017-04-14] MEDS: RANITIDINE HCL 150 MG TAB PO SCH (08:53)
[2017-04-14] MEDS: TOPIRAMATE 100 MG TAB PO SCH (08:53)
[2017-04-14] MEDS: VENLAFAXINE HCL XR 75 MG CAPXR PO SCH (08:53)
[2017-04-14] MEDS: CEROVITE ADV FORMULA TAB PO SCH (08:53)
[2017-04-14] MEDS: DOCUSATE SODIUM 100 MG CAP PO SCH (08:54)
[2017-04-14] MEDS: BACLOFEN 10 MG TAB PO SCH ×2 (08:54→13:30)
[2017-04-14] MEDS: METOPROLOL SUCC 25MG EXT REL TAB PO SCH (08:54)
[2017-04-14] MEDS: CETIRIZINE HCL 10 MG TAB PO SCH (08:55)
[2017-04-14] MEDS: ASPIRIN 325 MG ECTAB PO SCH (08:56)
[2017-04-14] MEDS: MULTIVITAMIN TAB PO SCH (08:57)
[2017-04-14] MEDS: CALCIUM 600MG + VIT D 400 IU TAB PO SCH (08:57)
[2017-04-14] MEDS: PANTOprazole SOD 40 MG TAB PO SCH (08:57)
[2017-04-14] MEDS: ARIPIprazole TAB 15 MG TAB PO SCH (08:57)
[2017-04-14] MEDS: METOCLOPRAMIDE HCL 5 MG TAB PO SCH ×2 (09:00→11:40)
[2017-04-14] MEDS: MIRABEGRON ER 25 MG TAB PO SCH (09:00)
[2017-04-14] MEDS: VENLAFAXINE HCL XR 150 MG CAPXR PO SCH (09:00)
[2017-04-14] MEDS: FERROUS SULFATE 325 MG TAB PO SCH (09:26)
[2017-04-14] MEDS: TRAMADOL HCL 50 MG TAB PO PRN (09:30)
[2017-04-14 10:19] VITALS: BP 100/65; PULSE 88; TEMP 36.6; O2SAT 95
[2017-04-14] MEDS ORDERED: NURSING VERBAL MED ORDER ONE (12:15)
[2017-04-14] MEDS ORDERED: HYDROCODONE/ACETAMOPHEN 5/325MG TAB PO ONE (12:30)
[2017-06-22] MEDS ORDERED: DIVA500T59 PO (07:45)
[2017-07-27] MEDS ORDERED: CYCL10TA6 PO (08:01)
[2017-09-28] MEDS ORDERED: AMOX1TAB42 PO (08:11)
[2017-09-28] MEDS ORDERED: AMT24 PO (08:11)
[2017-09-28] MEDS ORDERED: PRD/1 PO (08:12)
== END 2017-04-14 14:15 | DRG 470 ==
LOC: ENRESERVDT → ENRESERVTM → C.ACU 06:25 → C.MSW 07:00
PROVIDERS: ADMIT Orthopaedic Surgery; ATTEND Orthopaedic Surgery
PROC: 0SR9049 Replacement of Right Hip Joint with Ceramic on Polyethylene Synthetic Substitute, Cemented, Open Approach (ICD-10-PCS; principal; 2017-04-10 08:30)
PROC: 0SP904Z Removal of Internal Fixation Device from Right Hip Joint, Open Approach (ICD-10-PCS; principal; 2017-04-10 08:30)
DX: M16.11 Unilateral primary osteoarthritis, right hip (principal); I95.9 Hypotension, unspecified; F31.9 Bipolar disorder, unspecified; J44.9 Chronic obstructive pulmonary disease, unspecified; K21.9 Gastro-esophageal reflux disease without esophagitis; Z79.899 Other long term (current) drug therapy

== ENCOUNTER 2017-04-21 13:49 | Observation (INO) | payer OTHER ==
[~2017-04-21] VITALS: Ht 160 cm; Wt 68.0 kg
[2017-04-21] VITALS (7 sets, daily range): BP systolic 90–119; BP diastolic 57–77; PULSE 70–80; TEMP 36.3–36.8; O2SAT 95–100; Ht 160 cm; Wt 68.0 kg
[~2017-04-21 13:49] MED LIST changes: -AMOX875T PO; +ASPEC325 PO; -EFF75 PO; +EFFSR/75 PO; +HYDR-5688 PO; -LACTATED RINGER'S 1000ML 1,000 ML IV SCH; -LACTATED RINGER'S 1000ML 500 ML IV ONE; -LACTATED RINGER'S 1000ML IV SCH; -ROPIVACAINE 5MG/ML 30 ML 150 MG, BUPIVACAINE/EPINEPHR 0.5% MPF 30 ML, KETOROLAC TROMETH... INFIL SCH
[2017-04-21] MEDS ORDERED: LACTATED RINGER'S 1000ML IV SCH (14:45)
[2017-04-21] MEDS ORDERED: LORA1TAB13 PO (15:05)
[2017-04-21] MEDS ORDERED: HYDR-3419 PO (15:05)
[2017-04-21] MEDS ORDERED: FAMO40TA6 PO (15:05)
[2017-04-21] MEDS ORDERED: DOCU-94 PO (15:05)
[2017-04-21] MEDS ORDERED: PANT40TA PO (15:05)
[2017-04-21] MEDS ORDERED: CALC200T PO (15:05)
[2017-04-21] MEDS ORDERED: MULT-190 PO (15:05)
[2017-04-21] MEDS ORDERED: PRVHFAIN INH (15:05)
[2017-04-21] MEDS ORDERED: HYDR-3763 PO (15:05)
[2017-04-21] MEDS ORDERED: PRFINS INH (15:05)
[2017-04-21] MEDS ORDERED: LACTATED RINGER'S 1000ML 1,000 ML IV PRN (15:24)
[2017-04-21] MEDS ORDERED: ONDANSETRON INJ 2 MG/ML 2 ML VIAL IV PRN ×2 (15:30→18:00)
[2017-04-21] MEDS ORDERED: HYDROmorphone INJ 1 MG/ML SYR IV PRN (15:30)
[2017-04-21] MEDS ORDERED: CEFAZOLIN IV 2,000 MG/60 ML D5W IV ONE (15:36)
[2017-04-21] MEDS ORDERED: ACETAMINOPHEN 500 MG TAB PO ONE (15:54)
[2017-04-21] MEDS ORDERED: GABAPENTIN 300 MG CAP PO ONE (15:54)
[2017-04-21] MEDS ORDERED: ROCURONIUM BROMID 50MG/5ML SYR ONE (16:11)
[2017-04-21] MEDS ORDERED: LIDOCAINE HCL 2% 2 ML VIAL (20MG/ML) ONE (16:11)
[2017-04-21] MEDS ORDERED: FENTANYL CITRATE INJ 50 MCG/1 ML 2 ML VIAL ONE (16:11)
[2017-04-21] MEDS ORDERED: PROPOFOL IV EMULSION 10 MG/ML 20 ML VIAL IV ONE (16:11)
[2017-04-21] MEDS ORDERED: MIDAZOLAM HCL 1 MG/ML 2ML VIAL ONE (16:11)
[2017-04-21] MEDS ORDERED: BACITRACIN 50000 UNIT VIAL ONE (16:18)
[2017-04-21] MEDS ORDERED: LARYING-O-JET KIT (LTA) ONE ×2 (16:34)
[2017-04-21] MEDS ORDERED: GLYCOPYRROLATE INJ 0.2 MG/ML VIAL ONE (16:34)
[2017-04-21] MEDS ORDERED: ONDANSETRON INJ 2 MG/ML 2 ML VIAL ONE (16:34)
[2017-04-21] MEDS ORDERED: NEOSTIGMINE METHYLSULFATE 5 MG/5 ML SYR ONE (16:34)
--- NOTE | 2017-04-21 16:47 | History and Physical ---
History & Physical Date Apr 21, 2017. Chief Complaint R hip drainage History of Present Illness The patient is a 56 year old female with complaints of Past Medical/Surgical History Medical Problems: (1) Anxiety (2) Bipolar disorder (3) Bipolar Disorder, Unspecified (4) Cervicalgia (5) Chronic alcoholism in remission (6) Chronic back pain (7) Chronic headache (8) Chronic hepatitis C (9) Chronic obstructive lung disease (10) Chronic urinary urge incontinence (11) Closed head injury (12) Depression (13) Gastroesophageal reflux disease (14) Gastroparesis (15) History of aspiration pneumonia (16) History of Clostridium difficile colitis (17) History of drug abuse (18) History of sepsis (19) History of supraventricular tachycardia (20) Lumbago (21) Osteoarthritis (22) Osteoarthritis of hip (23) Osteoporosis (24) Pancreatitis (25) PTSD (post-traumatic stress disorder) (26) SVT (supraventricular tachycardia) (27) Ulnar neuropathy Surgical Problems: (1) Bladder Repair (2) H/O colonoscopy (3) H/O cystoscopy (4) H/O esophagogastroduodenoscopy (5) H/O sinus surgery (6) History of hip surgery (7) Right Tibia/Fibula Repair (8) S/P cervical spinal fusion (9) s/p colonoscopy (10) s/p cystoscopy (11) s/p EGD (12) S/p esophagogastric fundoplasty (13) s/p laparoscopic fundoplication hiatal hernia (14) S/p lumbar decompression/fusion (15) S/P ORIF (open reduction internal fixation) fracture (16) s/p reconstruction hip socket (17) s/p tonsillectomy (18) S/P tonsillectomy and adenoidectomy (19) S/P tubal ligation (20) s/p tubal ligation Additional History Hepatic Disease: No Endocrine Disorder: No Kidney Disease: No Hypertension: No Heart Disease: No Bleeding Tendencies: No Infectious Diseases: No Allergies Coded Allergies: Hydroxyzine (Verified Allergy, Severe, THROAT CONSTRICTS/CAN NOT VOID, 04/21) Clarithromycin (Verified Adverse Reaction, Intermediate, vomiting, 04/21/17) Chlorpromazine (Verified Adverse Reaction, Unknown, LIGHTHEADED DIZZY, 04/21) Lisinopril (Verified Adverse Reaction, Unknown, Cough, 04/21/17) Reported by PT. Home Medications Scheduled Aripiprazole (Abilify), 30 MG PO QAM Aspirin (Aspirin), 325 MG PO BID Baclofen (Lioresal), 10 MG PO TID Buspirone Hcl (Buspirone Hcl), 20 TAB PO BID Cetirizine (Zyrtec), 10 MG PO QAM Docusate Sodium (Colace), 1 CAP PO BID Fentanyl (Duragesic), 1 DOSE EXT Q72H Ferrous Sulfate (Ferrous Sulfate), 325 MG PO QAM Folic Acid (Folvite), 1 MG PO QAM Lamotrigine (Lamictal), 1 TAB PO BID Lorazepam (Lorazepam), 1 TAB PO BID Metoclopramide Hcl (Reglan), 5 MG PO ACHS Metoprolol Succinate (Toprol Xl), 25 MG PO QAM Mirabegron (Myrbetriq Er), 50 MG PO QAM Montelukast Sodium (Singulair), 10 MG PO HS Multivitamin (Multivitamin), 1 TAB PO QAM Ocuvite Preservision (Ocuvite Preservision), 1 TAB PO DAILY Pantoprazole Sodium (Protonix), 1 TAB PO DAILY Sulindac (Sulindac), 150 MG PO BID Topiramate (Topamax), 100 MG PO BID Venlafaxine HCl (Venlafaxine HCl ER), 75 MG PO QAM Venlafaxine Hcl (Effexor Extended Rel), 300 MG PO QAM Zolpidem Tartrate (Ambien), 10 MG PO HS Scheduled PRN Albuterol (Ventolin Hfa), 90 MCG INH for Wheezing Bisacodyl (Dulcolax), 1 SUPP WI WK PRN for Constipation Formoterol Fumarate (Perforomist), 20 MCG INH for Wheezing Furosemide (Lasix), 20 MG PO DAILY PRN for SWELLING Glycerin (Laxative) (Cvs Glycerin Adult), 1 SUPP RE UD PRN for PRN Hydrocodon/Acetaminophen 10MG/300MG (Vicodin Hp (10MG/300MG)), 1 TAB PO for Pain Hydrocodon/Acetaminophen 5MG/300MG (Vicodin (5MG/300MG)), 1 TAB PO Q6H PRN for Pain Nystatin (Topical) (Nystatin), 1 APPLN TOP DIRECTED PRN for Affected Skin Folds Ondansetron Hcl (Zofran), 8 MG PO Q6H PRN for Nausea Polyethylene Glycol 3350 (Miralax), 17 GM PO DAILY PRN for PRN Potassium Chloride (Micro-K Ext Rel), 10 MEQ PO DAILY PRN for PRN Miscellaneous Medications Calcium Carbonate-Vitamin D (Oscal 500/200 D-3) Famotidine (Pepcid), 40 MG PO Physical Examination Skin: warm/dry, no rash Eyes: normal inspection, EOMI, sclerae normal ENT: normal ENT inspection, pharynx normal Head: normocephalic, atraumatic Neck: supple, no adenopathy, trachea midline Respiratory/Chest: lungs clear, normal breath sounds, no respiratory distress Cardiovascular: regular rate, rhythm, no edema, no murmur Abdomen / GI: normal bowel sounds, non tender Back: normal inspection Extremities: normal inspection, normal range of motion Neurologic/Psych: no motor/sensory deficits, alert, normal reflexes, oriented x 3 Diagnosis superficial drainage right hip ASA Classification: ASA Class II Plan of Treatment I&D R hip
--- NOTE | 2017-04-21 16:47 | HISTORY & PHYSICAL EXAMINATION ---
DATE OF ADMISSION: 04/21/2017 CHIEF COMPLAINT: Drainage from her right hip. HISTORY OF PRESENT ILLNESS: The patient is a 56-year-old female who is approximately 3 weeks out from a right total hip arthroplasty. She has been staying at [facility]. We were informed yesterday that she has been having a lot of drainage. Approximately every 3 hours they would have to do a dressing change on her. She presented to our office today this morning for evaluation. She has no other complaints. Treatment options were discussed with her at length today in the office. She elects to proceed with and I&D of her right hip. All risks, benefits and alternatives were discussed and she elected to proceed. PAST MEDICAL HISTORY: Significant for anxiety, bipolar disorder, cervicalgia, chronic alcoholism in remission, chronic back pain, chronic headaches, chronic active hepatitis C, chronic COPD, chronic urinary urge incontinence, depression, GERD, gastroparesis, history of aspiration pneumonia, history of C. diff, history of drug abuse, history of sepsis, history of V-tach, history of lumbago, history of osteoarthritis, history of osteoporosis, history of PTSD, history of supraventricular tachycardia and history of ulnar neuropathy. PAST SURGICAL HISTORY: Significant for bladder repair, colonoscopy, sinus surgery, ORIF of the right pubis, multiple spinal surgeries, cannulated screw fixation of the right hip 4 months ago, cervical spine effusion, ORIF of the right tibia and fibula, tonsillectomy and tubal ligation. MEDICATIONS: Include [place], Ventolin, Gaviscon, Norvasc, Brovana, Abilify, Astelin, Lioresal, Dulcolax, Wellbutrin, calcium, Zyrtec, vitamin D3, Dexalab, Lovenox, Famvir, Duragesic patches, iron, Flonase, Folvite, Lasix, Lamictal, Ativan, metoclopramide, metoprolol, Myrbetriq, Mucinex, Bactroban, Zofran, MiraLax, Zantac, Clinoril, Topamax, Effexor and Ambien. ALLERGIES TO MEDICATIONS: INCLUDE CHLORPROMAZINE, CLARITHROMYCIN, HYDROXYZINE AND LISINOPRIL. FAMILY MEDICAL HISTORY: Noncontributory. SOCIAL HISTORY: She lives with her parents. She a community ambulator with a walker mostly because of her hip pain. REVIEW OF SYSTEMS: She complains of right hip drainage. All other pertinent reviews are negative. PHYSICAL EXAMINATION: GENERAL: She is awake, alert, oriented x3. She is in no apparent distress. She is pleasant. HEAD, EYES, EARS, NOSE, AND THROAT: Pupils equal, round and reactive to light. Extraocular motions are intact. Oral mucosa is pink and moist. HEART: Regular rate per radial pulse. CHEST: Chest isis symmetrically bilaterally with no audible breath sounds. ABDOMEN: Soft, nontender, nondistended. MUSCULOSKELETAL: Examination of the right hip, she has an incision that is well healed from previous surgery. It does have some serosanguineous drainage, no signs of any active infection. She can plantarflex and dorsiflex. Neurovascularly intact. X-RAYS: None. ASSESSMENT DIAGNOSIS: Three weeks status post right total hip with some serosanguineous drainage. PLAN: We talked to her about treatments including wound VAC versus I&D. She would like to proceed with I&D. All risks, benefits and alternatives were discussed at length. She understands and wishes to proceed. All answered were answered and all permits were signed. Surgery choice is an I&D of her right hip. She will likely be in the hospital overnight for observation. Will follow up in the clinic in 2-3 weeks postoperatively.
--- NOTE | 2017-04-21 17:48 | [facility] Post Operative Brief Note ---
Immediate Operative Summary Operative Date Apr 21, 2017. Pre-Operative Diagnosis Superficial drainage right hip Post-Operative Diagnosis Right hip draining seroma Procedure(s) Performed Incision and drainage right hip Surgeon Dr. Ziegler Design Leader Surgeon(s) None Estimated Blood Loss 5ml Findings as above Specimens culture: right hip drainage aerobic and anerobic Drains hemovac Complication(s) None Disposition Recovery Room / PACU
[2017-04-21] MEDS ORDERED: MoRPHine SULFATE 2 MG/ML CARP IV PRN (18:00)
[2017-04-21] MEDS ORDERED: FUROSEMIDE 20 MG TAB PO PRN (18:00)
[2017-04-21] MEDS ORDERED: ONDANSETRON 8 MG TAB PO PRN (18:00)
[2017-04-21] MEDS ORDERED: POTASSIUM CHLORIDE 10 MEQ TABCR PO PRN (18:00)
[2017-04-21] MEDS ORDERED: METOCLOPRAMIDE HCL INJ 5 MG/ML 2 ML VIAL IV PRN (18:00)
[2017-04-21] MEDS: FENTANYL CITRATE INJ 50 MCG/1 ML 2 ML VIAL IV PRN ×2 (18:13→18:27)
[2017-04-21] MEDS ORDERED: KETOROLAC TROMETHAMINE 30 MG/ML VIAL ONE (18:15)
--- NOTE | 2017-04-21 18:36 | Anesthesiology Progress Note ---
Anesthesia Post Op Note Date & Time Apr 21, 2017 at 18:36 Vital Signs Pain Intensity: 4.0 Vital Signs Past 12 Hours Date Time Temp Pulse Resp B/P (MAP) Pulse Ox O2 Delivery O2 Flow Rate FiO2 04/21/17 18:25 70 15 104/65 100 Nasal Cannula 2 04/21/17 18:15 78 15 110/69 100 Nasal Cannula 2 04/21/17 18:05 77 17 128/77 97 Mask 10 04/21/17 17:55 81 18 130/81 100 Mask 10 04/21/17 17:45 36.7 87 14 113/72 100 Mask 10 04/21/17 14:28 36.8 77 18 104/69 (81) 100 Room Air Notes Mental Status: alert / awake / arousable, participated in evaluation Pt Amnestic to Procedure: Yes Nausea / Vomiting: adequately controlled Pain: adequately controlled Airway Patency, RR, SpO2: stable & adequate BP & HR: stable & adequate Hydration State: stable & adequate Anesthetic Complications: no major complications apparent Pt doing well.
[2017-04-21] MEDS: HYDROCODONE/ACETAMOPHEN 5/325MG TAB PO PRN (19:54)
[2017-04-21] MEDS: POTASSIUM CHLORIDE INJ 10 MEQ in SODIUM CHLORIDE 0.9% 1000ML 1,000 ML IV SCH (20:01)
[2017-04-21] MEDS ORDERED: FENTANYL PATCH REMOVE & WASTE SCH (20:59)
[2017-04-21] MEDS ORDERED: FENTANYL 25 MCG/HR TDSY TD SCH (21:00)
[2017-04-21] MEDS ORDERED: MONTELUKAST SOD 10 MG TAB PO SCH (21:00)
[2017-04-21] MEDS ORDERED: ZOLPIDEM TARTRATE 10 MG TAB PO SCH (21:00)
--- NOTE | 2017-04-21 21:29 | OPERATIVE REPORT ---
DATE OF OPERATION: 04/21/2017 PREOPERATIVE DIAGNOSIS: Superficial draining of seroma of the right hip. POSTOPERATIVE DIAGNOSIS: Same. PROCEDURE: I&D of the right hip with evacuation of the seroma. SURGEON: Dr. Florencio Ziegler. ASSISTANTS: None. ANESTHESIA: General. COMPLICATIONS: None. CONDITION: Stable to PACU. INDICATIONS: Jennifer is a pleasant 56-year-old female, who underwent a right total hip arthroplasty about 11 days ago. She was initially doing well postoperatively, then she began noticing drainage from her wound. She has been staying at [facility] and the physician had her brought over to my office this morning for evaluation. There was significant amount of purely serous discharge from the central aspect of the wound. The majority of the wound looked like it was healing nicely. There were no signs of infection. There is no erythema. Given the amount of drainage, I felt that it was best to proceed with open evacuation of the seroma. OPERATION AND FINDINGS: On 04/21/2017, she arrived at [facility] for the above procedure. She was seen in the preoperative holding area and the operative extremity was identified and signed. She was taken back to the operating room and laid on the table in supine position. She was put under general anesthesia. She was then put in the lateral decubitus position. The right hip was prepped and draped in sterile fashion. Time-out was done and the patient and operative extremity was properly identified. The previous incision was opened up about one-third [address] way. There was a large amount of seroma that was evacuated from the wound. There was no pus, no purulent discharge and no signs of infection. It was a purely watery type of seroma. Cultures were obtained and then antibiotics were started. The seroma was in the superficial space between the subcutaneous tissue and the fascia. The fascia seemed to be healing nicely and all the sutures were in place. The superficial cavity of the hip was then irrigated with 3 liters of normal saline solution with bacitracin. Any loose tissue was debrided. Once I was happy with the complete evacuation of the seroma as well as the irrigation and debridement, a single lumen drain was placed. Skin was then closed with 2-0 Vicryl and portia. She was then placed in a soft compressive dressing, extubated, transferred to a [facility] and taken to the postanesthesia care unit in stable condition. She tolerated the procedure well. I attest to the content of the Intraoperative Record and any orders documented therein. Any exceptions are noted below. TANISHA
[2017-04-21] MEDS: METOCLOPRAMIDE HCL 5 MG TAB PO SCH (21:31)
[2017-04-21] MEDS: DOCUSATE SODIUM 100 MG CAP PO SCH (21:31)
[2017-04-21] MEDS: ASPIRIN 325 MG ECTAB PO SCH (21:31)
[2017-04-21] MEDS: BACLOFEN 10 MG TAB PO SCH (21:31)
[2017-04-21] MEDS: LORAZEPAM 1 MG TAB PO SCH (21:32)
[2017-04-21] MEDS: TOPIRAMATE 100 MG TAB PO SCH (21:32)
[2017-04-21] MEDS: KETOROLAC TROMETHAMINE 30 MG/ML VIAL IV. SCH (21:32)
[2017-04-21] MEDS ORDERED: IV FLUIDS COMPLETED PRN (22:00)
[2017-04-21] MEDS: CEFAZOLIN IV 2,000 MG in DEXTROSE 5% 50ML 50 ML IV SCH (23:24)
[2017-04-21] MEDS: CHECK FENTANYL PATCH PLACEMENT SCH (23:32)
[2017-04-22] VITALS (7 sets, daily range): BP systolic 89–111; BP diastolic 55–72; PULSE 72–88; TEMP 36.2–36.7; O2SAT 95–99
[2017-04-22] MEDS: HYDROCODONE/ACETAMOPHEN 5/325MG TAB PO PRN ×3 (02:15→14:51)
[2017-04-22] MEDS: KETOROLAC TROMETHAMINE 30 MG/ML VIAL IV. SCH ×2 (04:09→10:18)
[2017-04-22] MEDS: POTASSIUM CHLORIDE INJ 10 MEQ in SODIUM CHLORIDE 0.9% 1000ML 1,000 ML IV SCH (05:15)
--- NOTE | 2017-04-22 06:22 | Discharge Instructions ---
Discharge Instructions Date of Service Apr 22, 2017. Admission Reason for Admission: Seroma R Hip Discharge Discharge Diagnosis / Problem: Seroma Right Hip Discharge Goals Goal(s): Decrease discomfort, Improve function Activity Recommendations Activity Level: Up Ad Gabrielle . Additional Information Patient informed of condition: Yes Advance Directives: Yes DNR: No Level of Care: Acute Rehab Communicable Disease: Yes Prognosis: Improving Bojorquez Catheter: No Instructions / Follow-Up Instructions / Follow-Up Activity and Therapy Recommendations: * If you are using [facility] then Physical Therapy will be provided until they feel you are ready to start Outpatient Physical Therapy. If you are not using a Home Health agency then Outpatient Physical Therapy should start about 3-5 days from your day of surgery. Therapy will last about 3-6 weeks * You were shown a series of exercises in the hospital. Do these exercises three times each day including the exercises you were shown in physical therapy. * Get up and walk several times each day.~ For the first four weeks, try not to stand or walk for more than one hour at a time. If you do stand or walk for more than one hour, you will not hurt anything, but your leg will likely swell.~ ~ * As you feel comfortable, you may change from the walker or crutches to a cane and~then to independent walking. Medications: * Narcotic You will likely be sent home from the hospital with a prescription for the narcotic pain medication that worked best throughout your stay. * Aspirin Most patients will be required to take Aspirin 325mg twice a day for 6 weeks after surgery. This is obtained [id number] and a prescription is not necessary. * Other medications may be prescribed for specific circumstances. If you have any questions, please call the office at . * Resume previous home medications unless otherwise instructed TEDs/Elastic Stockings: The white elastic stockings help limit swelling and prevent blood clots from forming in your legs. The more you wear them, the more they work. Wear them for six weeks. Dressing Care: You will likely have a Prineo dressing covering your incision. This looks like a glued on clear mesh dressing. Do not remove this dressing until you follow- up in my office in 2-3 weeks. Its pretty hard to peel it off. You may leave the Prineo dressing uncovered or cover it if it is draining a little bit. No further dressing care is required Showering: You may shower 5 days from the day of surgery. Leave the portia intact and let the soapy shower water run over it. Do not scrub or soak the incision. Things To Watch For: * Drainage from the incision site that occurs more than one week after your surgery. * Increased redness at the incision site. * Fever above 102 degrees Fahrenheit. * Unusual chest pain or shortness of breath. * Call [facility] at with any of the above problems Follow-Up Visit: Follow-up with Dr. Ziegler 2 weeks after your day of surgery. Cancel the previous appointment. An appointment was probably scheduled when you signed-up for surgery in the office. If you have any questions call Office Instructions: More detailed instructions as well as Frequently Asked Questions were provided in a folder by our office when you signed-up for surgery. Please review these instructions when you get home. If you have any further questions or concerns, please feel free to call the office at [phone] Current Hospital Diet Patient's current hospital diet: Regular Diet Discharge Diet Recommended Diet: Renal Diet Procedures Procedures Performed: Incision and drainage right hip Pending Studies Studies pending at discharge: no Medical Emergencies . Who to Call and When: Medical Emergencies: If at any time you feel your situation is an emergency, please call [phone] immediately. . Non-Emergent Contact Non-Emergency issues call your: Surgeon Call Non-Emergent contact if: wound has increased drainage, wound has increased redness . . "Provider Documentation" section prepared by Florencio Ziegler. . Core Measure Problem Core Measures: None
--- NOTE | 2017-04-22 06:53 | PROGRESS NOTE ---
DATE: 04/22/2017 CHIEF COMPLAINT: Status post evacuation of seroma of the right hip. PROGRESS: Jennifer was seen and examined at bedside today. Overall, she is feeling well today. She does not feel sick or lightheaded. She says her hip actually feels much better. The tightness is gone and she is able to walk easier. She has no new complaints. PHYSICAL EXAMINATION: RIGHT HIP: The dressing is clean and dry and the drain is to suction. Her leg lengths are equal. LABORATORY DATA: Microbiology: The gram stain and cultures are still pending. IMPRESSION: Status post evacuation of seroma of the right hip. PLAN: Her hip is feeling better. There are no signs of infection during the case. Later this morning, the nursing staff can change the dressing and pull the drain and will discharge her back to [facility]. She will continue aspirin 325 mg twice a day for DVT prophylaxis.
--- NOTE | 2017-04-22 07:39 | DISCHARGE SUMMARY ---
DISCHARGE DIAGNOSIS: Seroma of the right hip. PROCEDURE: I&D with evacuation seroma of the right hip on 04/21/[address] Florencio Ziegler. DISCHARGE INSTRUCTIONS: 1. Aspirin 325 mg twice a day for DVT prophylaxis. 2. Follow up with Dr. Ziegler in 2 weeks for staple removal. 3. Daily dry dressing changes. 4. Continue all other home medications. 5. Weightbear as tolerated. 6. Continue to follow hip precautions. HOSPITAL COURSE: Jennifer is a 56-year-old female, who underwent a right total hip arthroplasty 11 days ago. She has done well postoperatively and she has been happy with her progress thus far. Unfortunately, she was having increased serous drainage from the incision. There was a lot of fullness of the hip and I elected to proceed with an open I&D with evacuation of the seroma. On 04/21/2017, she arrived at [facility] and underwent the above procedure without complications. Postoperatively, a drain was placed and she was discharged to general orthopedic floor. Her hospital course was uneventful. On postop day#1, her hip was feeling better. She said the tightness was gone. The nursing staff was able to change the dressing, and pull the drain and she was subsequently discharged [facility] with the above instructions.
[2017-04-22] MEDS: CHECK FENTANYL PATCH PLACEMENT SCH (08:29)
[2017-04-22] MEDS: LORAZEPAM 1 MG TAB PO SCH (08:32)
[2017-04-22] MEDS: CEFAZOLIN IV 2,000 MG in DEXTROSE 5% 50ML 50 ML IV SCH (08:32)
[2017-04-22] MEDS: METOCLOPRAMIDE HCL 5 MG TAB PO SCH ×2 (08:34→13:17)
[2017-04-22] MEDS: DOCUSATE SODIUM 100 MG CAP PO SCH (08:36)
[2017-04-22] MEDS: ASPIRIN 325 MG ECTAB PO SCH (08:37)
[2017-04-22] MEDS: BACLOFEN 10 MG TAB PO SCH ×2 (08:43→13:17)
--- NOTE | 2017-04-22 08:45 | Anesthesiology Progress Note ---
Anesthesia Post Op Note Date & Time Apr 22, 2017 at 08:44 Vital Signs Vital Signs Past 12 Hours Date Time Temp Pulse Resp B/P (MAP) Pulse Ox O2 Delivery O2 Flow Rate FiO2 04/22/17 07:46 36.2 72 16 96/64 (75) 98 Room Air 04/22/17 07:09 111/72 (85) 04/22/17 04:12 84 96/60 (72) 04/22/17 03:49 36.6 88 14 89/55 (66) 95 Room Air 04/21/17 23:59 Room Air 04/21/17 23:10 36.3 80 14 90/57 (68) 96 Room Air 04/21/17 21:55 36.6 76 18 94/60 (71) 95 Room Air 04/21/17 20:55 36.7 75 18 119/77 (91) 100 Room Air Notes Mental Status: alert / awake / arousable, participated in evaluation Pt Amnestic to Procedure: Yes Nausea / Vomiting: adequately controlled Pain: adequately controlled Airway Patency, RR, SpO2: stable & adequate BP & HR: stable & adequate Hydration State: stable & adequate Anesthetic Complications: no major complications apparent
[2017-04-22] MEDS ORDERED: VENLAFAXINE HCL XR 75 MG CAPXR PO SCH (09:00)
[2017-04-22] MEDS ORDERED: MIRABEGRON ER 25 MG TAB PO SCH (09:00)
[2017-04-22] MEDS ORDERED: PANTOprazole SOD 40 MG TAB PO SCH ×2 (09:00)
[2017-04-22] MEDS ORDERED: FERROUS SULFATE 325 MG TAB PO SCH (09:00)
[2017-04-22] MEDS ORDERED: CEROVITE ADV FORMULA TAB PO SCH (09:00)
[2017-04-22] MEDS ORDERED: MULTIVITAMIN TAB PO SCH (09:00)
[2017-04-22] MEDS ORDERED: ARIPIprazole TAB 15 MG TAB PO SCH (09:00)
[2017-04-22] MEDS ORDERED: METOPROLOL SUCC 25MG EXT REL TAB PO SCH (09:00)
[2017-04-22] MEDS ORDERED: VENLAFAXINE HCL XR 150 MG CAPXR PO SCH (09:00)
[2017-04-22] MEDS ORDERED: CETIRIZINE HCL 10 MG TAB PO SCH (09:00)
[2017-04-22] MEDS: TOPIRAMATE 100 MG TAB PO SCH (10:18)
[2017-04-23] MEDS ORDERED: SULINDAC 150 MG TAB PO SCH (09:00)
[2017-06-22] MEDS ORDERED: DIVA500T59 PO (07:45)
[2017-07-27] MEDS ORDERED: CYCL10TA6 PO (08:01)
[2017-09-28] MEDS ORDERED: AMT24 PO (08:11)
[2017-09-28] MEDS ORDERED: AMOX1TAB42 PO (08:11)
[2017-09-28] MEDS ORDERED: PRD/1 PO (08:12)
== END 2017-04-22 15:49 ==
LOC: C.OR 13:49 → C.MSN 17:55 → ENRESERV 18:26
PROVIDERS: ADMIT Orthopaedic Surgery; ATTEND Orthopaedic Surgery
DX: M96.842 Postprocedural seroma of a musculoskeletal structure following a musculoskeletal system procedure (principal); G89.29 Other chronic pain; F32.9 Major depressive disorder, single episode, unspecified; F31.9 Bipolar disorder, unspecified; K21.9 Gastro-esophageal reflux disease without esophagitis; F10.21 Alcohol dependence, in remission; B18.2 Chronic viral hepatitis C; Z68.27 Body mass index [BMI] 27.0-27.9, adult; Z79.01 Long term (current) use of anticoagulants; Z79.899 Other long term (current) drug therapy; Z88.1 Allergy status to other antibiotic agents; F41.9 Anxiety disorder, unspecified; Z96.641 Presence of right artificial hip joint; Z90.89 Acquired absence of other organs; Z98.51 Tubal ligation status; Z98.890 Other specified postprocedural states

== ENCOUNTER 2017-06-21 03:01 | Emergency (ER) | payer OTHER ==
[~2017-06-21] VITALS: Ht 160 cm; Wt 67.9 kg
[~2017-06-21 03:01] MED LIST changes: -ACETAMINOPHEN 500 MG TAB PO SCH; -AMLO2.5T PO; -ARFO15NE INH; -ATV/2 PO; -AZEL30SP NAE; -CALC-388 PO; +CALC200T; -CEFAZOLIN 2000 MG/60 ML D5W 60 ML IV SCH; -CHOL1TAB63 PO; -DEXL60CA4 PO; +DOCU-94 PO; +FAMO40TA6 PO; -FAMOTIDINE 20 MG TAB PO SCH; +FENT25DI10 EXT; -FENT25DI10 TD; -FERR1TAB62 PO; +FERR325T PO; -GABAPENTIN 300 MG CAP PO SCH; +HYDR-3419 PO; +HYDR-3763 PO; -HYDR-5688 PO; +LORA1TAB13 PO; +MULT-190 PO; -MULTCAP36 PO; +PANT40TA PO; +PRFINS INH; +PRVHFAIN INH; -RANI300T2 PO; -VNTHFA/IN INH
[2017-06-21 03:08] VITALS: TEMP 37; Ht 160 cm; Wt 67.9 kg
[2017-06-21] MEDS ORDERED: ASPI325T39 PO (03:23)
[2017-06-21] MEDS ORDERED: VENL150C56 PO ×3 (03:34→03:36)
[2017-06-21] MEDS ORDERED: DIVA500T5 PO ×2 (03:38→03:39)
[2017-06-21 05:21] LABS: BASO % 0.3 %; BASO ABS # 0.02 K/uL (0-0.2); COMPLETE YES; EOS % 1.6 %; HEMATOCRIT 35.4 % (37-47); IG% 0.7 %; LYMPH % 31.7 %; MEAN CELL VOLUME 95.4 fL (80-100); MEAN CORPUSCULAR HEMOGLOBIN 29.6 pg (25-34); MEAN CORPUSCULAR HGB CONC 31.1 g/dl (32-36); MEAN PLATELET VOLUME 8.3 fL (7.4-10.4); MONO % 13.9 %; NEUT % 51.8 %; PLATELET COUNT 462 K/uL (130-400); RED BLOOD COUNT 3.71 M/uL (4.2-5.4); WHITE BLOOD COUNT 7.57 K/uL (4.8-10.8)
[2017-06-21 05:42] LABS: BUN/CREATININE RATIO 17.4 (10-20); CALCIUM 8.9 mg/dl (8.5-10.1); CREATININE 0.52 mg/dl (0.60-1.20); POTASSIUM 3.8 mmol/L (3.5-5.1)
[2017-06-21 06:42] LABS: URINE APPEARANCE CLEAR (CLEAR); URINE BILIRUBIN NEG (NEG); URINE COLOR YELLOW; URINE NITRITE NEG (NEG); URINE PH 7.5 (4.5-7.5); URINE SPECIFIC GRAVITY 1.008 (1.000-1.030); UROBILINOGEN NEG (NEG)
[2017-06-21 06:43] LABS: MANUAL MICROSCOPIC REQUIRED? NO; REVIEW REQ? NO
--- NOTE | 2017-06-21 07:18 | EMERGENCY ROOM VISIT NOTE ---
History Report prepared by Tonya: Eric Ernst Under the Supervision of: Dr. Blaire Valenzuela D.O. First contact with patient: 03:27 Chief Complaint: LEG PAIN,LEG INJURY Stated Complaint: LEG PAIN/ S/P HIP SURGER MARCH 2017 History of Present Illness The patient is a 56 year old female who presents to the Emergency Room with complaints of worsening right hip pain. The patient's pain radiates into her leg , and occasionally into her foot. She had a hip replacement a little over two months ago. She states that she fell onto her right side three weeks ago, and has been having pain ever since. The patient has not been seen by anyone for her fall until today. She has not fallen since. The patient notes that she has a wound-vac in place on the incision site of her hip replacement. She denies any numbness, or tingling of the hip or leg. She denies any fevers, or chills. The patient has been using hydrocodone at home for pain, but has seen minimal relief. Source of History: patient Onset: Three weeks ago Position: pelvis (right hip) Associated Symptoms: No fevers, No chills, No numbness Note: Additional symptoms: pain radiation into her leg, and occasionally into her foot. Review of Systems See HPI for pertinent positives & negatives. A total of 10 systems reviewed and were otherwise negative. Past Medical & Surgical Medical Problems: (1) Anxiety (2) Bipolar disorder (3) Bipolar Disorder, Unspecified (4) Cervicalgia (5) Chronic alcoholism in remission (6) Chronic back pain (7) Chronic headache (8) Chronic hepatitis C (9) Chronic obstructive lung disease (10) Chronic urinary urge incontinence (11) Closed head injury (12) Depression (13) Gastroesophageal reflux disease (14) Gastroparesis (15) History of aspiration pneumonia (16) History of Clostridium difficile colitis (17) History of drug abuse (18) History of sepsis (19) History of supraventricular tachycardia (20) Lumbago (21) Osteoarthritis (22) Osteoarthritis of hip (23) Osteoporosis (24) Pancreatitis (25) PTSD (post-traumatic stress disorder) (26) seroma Right hip (27) SVT (supraventricular tachycardia) (28) Ulnar neuropathy Surgical Problems: (1) Bladder Repair (2) H/O colonoscopy (3) H/O cystoscopy (4) H/O esophagogastroduodenoscopy (5) H/O sinus surgery (6) History of hip surgery (7) Right Tibia/Fibula Repair (8) S/P cervical spinal fusion (9) s/p colonoscopy (10) s/p cystoscopy (11) s/p EGD (12) S/p esophagogastric fundoplasty (13) s/p laparoscopic fundoplication hiatal hernia (14) S/p lumbar decompression/fusion (15) S/P ORIF (open reduction internal fixation) fracture (16) s/p reconstruction hip socket (17) s/p tonsillectomy (18) S/P tonsillectomy and adenoidectomy (19) s/p tubal ligation (20) S/P tubal ligation Family History Diabetes mellitus FATHER GRANDMOTHER FH: colon cancer GRANDMOTHER Gallbladder disease Heart disease Hypertension FATHER MOTHER Kidney disease Kidney stones Social History Smoking Status: Current Some Day Smoker Alcohol Use: none Drug Use: other Marital Status: Housing Status: lives with family Occupation Status: disabled Current/Historical Medications Scheduled Aripiprazole (Abilify), 30 MG PO QAM Aspirin (Aspirin Ec), 325 MG PO BID Baclofen (Lioresal), 10 MG PO TID Buspirone Hcl (Buspirone Hcl), 20 TAB PO BID Cetirizine (Zyrtec), 10 MG PO QAM Divalproex Sodium (Depakote Delay Rel), 250 MG PO QAM Divalproex Sodium (Depakote Delay Rel), 500 MG PO QPM Docusate Sodium (Colace), 1 CAP PO BID Fentanyl (Duragesic), 1 DOSE EXT Q72H Ferrous Sulfate (Ferrous Sulfate), 325 MG PO QAM Folic Acid (Folvite), 1 MG PO QAM Lamotrigine (Lamictal), 1 TAB PO BID Lorazepam (Lorazepam), 1 TAB PO BID Metoclopramide Hcl (Reglan), 5 MG PO ACHS Metoprolol Succinate (Toprol Xl), 25 MG PO QAM Mirabegron (Myrbetriq Er), 50 MG PO QAM Montelukast Sodium (Singulair), 10 MG PO HS Multivitamin (Multivitamin), 1 TAB PO QAM Ocuvite Preservision (Ocuvite Preservision), 1 TAB PO DAILY Pantoprazole Sodium (Protonix), 1 TAB PO DAILY Sulindac (Sulindac), 150 MG PO BID Topiramate (Topamax), 100 MG PO BID Venlafaxine HCl (Venlafaxine HCl ER), 75 MG PO QAM Venlafaxine Hcl (Effexor Extended Rel), 300 MG PO QAM Venlafaxine Hcl (Effexor Extended Rel), 150 MG PO QAM Venlafaxine Hcl (Effexor Extended Rel), 225 MG PO QPM Zolpidem Tartrate (Ambien), 10 MG PO HS Scheduled PRN Albuterol (Ventolin Hfa), 90 MCG INH for Wheezing Bisacodyl (Dulcolax), [address] WK PRN for Constipation Formoterol Fumarate (Perforomist), 20 MCG INH for Wheezing Furosemide (Lasix), 20 MG PO DAILY PRN for SWELLING Glycerin (Laxative) (Cvs Glycerin Adult), 1 SUPP RE UD PRN for PRN Hydrocodon/Acetaminophen 10MG/300MG (Vicodin Hp (10MG/300MG)), 1 TAB PO for Pain Hydrocodon/Acetaminophen 5MG/300MG (Vicodin (5MG/300MG)), 1 TAB PO Q6H PRN for Pain Nystatin (Topical) (Nystatin), 1 APPLN TOP DIRECTED PRN for Affected Skin Folds Ondansetron Hcl (Zofran), 8 MG PO Q6H PRN for Nausea Polyethylene Glycol 3350 (Miralax), 17 GM PO DAILY PRN for PRN Potassium Chloride (Micro-K Ext Rel), 10 MEQ PO DAILY PRN for PRN Miscellaneous Medications Calcium Carbonate-Vitamin D (Oscal 500/200 D-3) Famotidine (Pepcid), 40 MG PO Allergies Coded Allergies: Hydroxyzine (Verified Allergy, Severe, THROAT CONSTRICTS/CAN NOT VOID, 06/21) Clarithromycin (Verified Adverse Reaction, Intermediate, vomiting, 06/21/17) Chlorpromazine (Verified Adverse Reaction, Unknown, LIGHTHEADED DIZZY, 06/21) Lisinopril (Verified Adverse Reaction, Unknown, Cough, 06/21/17) Reported by PT. Physical Exam Vital Signs Date Time Temp Pulse Resp B/P (MAP) Pulse Ox O2 Delivery O2 Flow Rate FiO2 8/6/17 07:28 92 18 110/68 92 06/21/17 06:08 95 18 103/68 94 Room Air 06/21/17 05:08 84 18 106/72 94 Room Air 06/21/17 03:08 37.0 86 18 117/77 95 Room Air Physical Exam GENERAL: alert, well appearing, well nourished, no distress, non-toxic EYE EXAM: normal conjunctiva, PERRL and EOM's grossly intact OROPHARYNX: no exudate, no erythema, lips, buccal mucosa, and tongue normal and mucous membranes are moist NECK: supple, no nuchal rigidity, no adenopathy, non-tender LUNGS: Clear to auscultation. Normal chest wall mechanics HEART: no murmurs, S1 normal and S2 normal ABDOMEN: abdomen soft, non-tender, normo-active bowel sounds, no masses, no rebound or guarding. BACK: Back is symmetrical on inspection and there is no deformity, no midline tenderness, no CVA tenderness. SKIN: no rashes and no bruising UPPER EXTREMITIES: upper extremities are grossly normal. LOWER EXTREMITIES: No pitting edema. Pain over the right hip. Small wound-vac in place. No pain of the left hip. Pelvis stable. NEURO EXAM: Normal sensorium, cranial nerves II-XII grossly intact, normal speech, no gross weakness of arms, no gross weakness of legs. Medical Decision & Procedures ER Provider Diagnostic Interpretation: CT Results per statrad and my review. CT PELVIS: Compared to 12/05/16. Postsurgical changes in the right hip/pelvis and spine. Age indeterminate fracture of the right greater trochanter. Correlate with history of trauma. Old left pelvic fracture deformities. No evidence of hip dislocation. Soft tissue stranding/fluid along the right hip. Laboratory Results 06/21/17 04:40 Red Blood Count 3.71, Mean Corpuscular Volume 95.4, Mean Corpuscular Hemoglobin 29.6, Mean Corpuscular Hemoglobin Concent 31.1, Mean Platelet Volume 8.3, Neutrophils (%) (Auto) 51.8, Lymphocytes (%) (Auto) 31.7, Monocytes (%) (Auto) 13.9, Eosinophils (%) (Auto) 1.6, Basophils (%) (Auto) 0.3, Neutrophils # (Auto ) 3.93, Lymphocytes # (Auto) 2.40, Monocytes # (Auto) 1.05, Eosinophils # (Auto ) 0.12, Basophils # (Auto) 0.02 06/21/17 04:40 Test 06/21/17 00:00 06/21/17 04:40 Urine Color YELLOW Urine Appearance CLEAR (CLEAR) Urine pH 7.5 (4.5-7.5) Urine Specific [place] 1.008 (1.000-1.030) Urine Protein NEG (NEG) Urine Glucose (UA) NEG (NEG) Urine Ketones NEG (NEG) Urine Occult Blood NEG (NEG) Urine Nitrite NEG (NEG) Urine Bilirubin NEG (NEG) Urine Urobilinogen NEG (NEG) Urine Leukocyte Esterase NEG (NEG) White Blood Count 7.57 K/uL (4.8-10.8) Red Blood Count 3.71 M/uL (4.2-5.4) Hemoglobin 11.0 g/dL (12.0-16.0) Hematocrit 35.4 % (37-47) Mean Corpuscular Volume 95.4 fL (80-100) Mean Corpuscular Hemoglobin 29.6 pg (25-34) Mean Corpuscular Hemoglobin Concent 31.1 g/dl (32-36) Platelet Count 462 K/uL (130-400) Mean Platelet Volume 8.3 fL (7.4-10.4) Neutrophils (%) (Auto) 51.8 % Lymphocytes (%) (Auto) 31.7 % Monocytes (%) (Auto) 13.9 % Eosinophils (%) (Auto) 1.6 % Basophils (%) (Auto) 0.3 % Neutrophils # (Auto) 3.93 K/uL (1.4-6.5) Lymphocytes # (Auto) 2.40 K/uL (1.2-3.4) Monocytes # (Auto) 1.05 K/uL (0.11-0.59) Eosinophils # (Auto) 0.12 K/uL (0-0.5) Basophils # (Auto) 0.02 K/uL (0-0.2) RDW Standard Deviation 46.3 fL (36.4-46.3) RDW Coefficient of Variation 13.3 % (11.5-14.5) Immature Granulocyte % (Auto) 0.7 % Immature Granulocyte # (Auto) 0.05 K/uL (0.00-0.02) Anion Gap 7.0 mmol/L (3-11) Est Creatinine Clear Calc Drug Dose 111.7 ml/min Estimated GFR () 123.8 Estimated GFR (Non- 106.8 BUN/Creatinine Ratio 17.4 (10-20) Calcium Level 8.9 mg/dl (8.5-10.1) Laboratory results per my review. ED Course 0354: The patient was evaluated in room B6. A complete history and physical exam was performed. 0715: Upon reevaluation, the patient is feeling better. I discussed the findings and the treatment plan with the patient. She verbalizes agreement and understanding. The patient was discharged home. Medical Decision Differential diagnosis: Etiologies such as fracture, dislocation, neurovascular compromise, compartment syndrome, soft tissue injury, as well as others were entertained. Patient with multiple prior surgeries and ongoing problems of chronic pain. Patient with a fall 3 weeks ago, no acute fracture noted on CT and reviewed by orthopedics. They feel patient's hardware is stable and never no other changes to be made to patient's physical therapy or weightbearing status. Patient encouraged to continue doing protected weightbearing, continued home medications including pain medication she is currently prescribed. Discussed with her symptoms to watch and return for, she verbalized understanding was agreeable with plan. Doubt occult septic arthritis or infection of hardware, doubt osteomyelitis, doubt referred pain from etiology, no evidence of cellulitis, no symptoms to suggest DVT, no evidence of compartment syndrome, doubt acute spinal etiology. Consults Time Called: 07 Consulting Physician: Dr. Moran -Orthopedics Returned Call: [phone] I reviewed the patient's case with Dr. Moran. He states that there is nothing else to do for the injury. He recommends that the patient be given pain medication and walker/crutches for support and protected weight bearing. The patient should follow-up as an outpatient. Impression Primary Impression: Leg pain, right Additional Impression: History of hip surgery Scribe Attestation The scribe's documentation has been prepared under my direction and personally reviewed by me in its entirety. I confirm that the note above accurately reflects all work, treatment, procedures, and medical decision making performed by me. Departure Information Dispostion Home / Self-Care Referrals Jerome Murillo M.D. (PCP) Patient Instructions My [facility] Additional Instructions Please continue regular medications at home as well as the physical therapy your previously performing. Please continue to use your wound VAC is previously directed. Please continue using your walker to assist with weightbearing. Please follow up with Dr. Ziegler in the office this week. If you develop any worsening pain, lower extremity swelling, fevers, numbness or tingling, discoloration of the leg, drainage from your wound, or you have any other new or concerning symptoms, please return the emergency room. Problem Qualifiers
[2017-06-21 07:28] VITALS: BP 110/68; PULSE 92; O2SAT 92
--- NOTE | 2017-06-21 08:03 | DIAGNOSTIC IMAGING REPORT ---
PELVIS CT CT DOSE: 249.03 mGy.cm HISTORY: right hip pain s/p surgery TECHNIQUE: Multiaxial CT images of the pelvis were performed and reformatted in the sagittal and coronal plane without the use of contrast. A dose lowering technique was utilized adhering to the principles of ALARA. COMPARISON: Pelvis CT 02/28/2016. FINDINGS: Posterior decompression and fusion within the lower lumbar spine and sacrum with associated bilateral sacroiliac bolts. Right total hip arthroplasty. Old screw tracts seen within the right greater trochanter. No acute fracture or dislocation within the pelvis or hips. Old posttraumatic deformities seen within the left iliac wing and left pubic bones. Cortical plate and screws at the roof of the right acetabulum. No change in the spondylolisthesis and endplate erosions at L5-S1. Old nonunited fracture at the right greater trochanter. Soft tissue stranding an trace fluid within the right lateral hip likely due to recent incision. IMPRESSION: 1. Postoperative and old post traumatic changes within the pelvis and hips as described above. 2. No definite acute fractures identified within the pelvis or hips. 3. Mild soft tissue stranding and a small amount of fluid within the lateral aspect of the right hip likely due to the recent incision. Electronically signed by: Ricardo Anthony M.D. 06/21/2017 8:02 AM Dictated Date/Time: 06/21/2017 7:55 AM
[2017-06-22] MEDS ORDERED: DIVA500T59 PO (07:45)
[2017-07-27] MEDS ORDERED: CYCL10TA6 PO (08:01)
== END 2017-06-21 07:29 | disposition home or self-care (01) ==
LOC: EDBD 03:01 → C.EDB 03:02
DX: M79.604 Pain in right leg (principal); F41.9 Anxiety disorder, unspecified; F31.9 Bipolar disorder, unspecified; J44.9 Chronic obstructive pulmonary disease, unspecified; F32.9 Major depressive disorder, single episode, unspecified; K21.9 Gastro-esophageal reflux disease without esophagitis; M19.90 Unspecified osteoarthritis, unspecified site; F43.10 Post-traumatic stress disorder, unspecified; I47.1 Supraventricular tachycardia; Z83.3 Family history of diabetes mellitus; Z82.49 Family history of ischemic heart disease and other diseases of the circulatory system; F17.200 Nicotine dependence, unspecified, uncomplicated; Z79.82 Long term (current) use of aspirin

== ENCOUNTER 2017-08-18 17:44 | Emergency (ER) | payer OTHER ==
[~2017-08-18] VITALS: Ht 162.6 cm; Wt 63.9 kg
[~2017-08-18 17:44] MED LIST changes: -ASPEC325 PO; +ASPI325T39 PO; +CYCL10TA6 PO; +DIVA500T5 PO
[2017-08-18 17:57] VITALS: TEMP 37.4; Ht 162.6 cm; Wt 63.9 kg
[2017-08-18] MEDS ORDERED: KETOROLAC TROMETHAMINE 60 MG/2 ML VIAL IM STA (18:16)
[2017-08-18] MEDS ORDERED: HYDROmorphone INJ 1 MG/ML SYR IM STA (18:16)
[2017-08-18] MEDS ORDERED: LIDODERM (LIDOCAINE) PATCH 5% TD STA (18:16)
[2017-08-18] MEDS ORDERED: ONDANSETRON 4MG OD TAB PO STA (18:16)
--- NOTE | 2017-08-18 18:26 | EMERGENCY ROOM VISIT NOTE ---
History Report prepared by Tonya: Royal Jensen Under the Supervision of: Dr. Yaw Garland M.D. First contact with patient: 18:08 Chief Complaint: LEG PAIN,LEG INJURY Stated Complaint: EXTREME R LEG PAIN History of Present Illness The patient is a 56 year old female who presents to the Emergency Room with complaints of right leg pain that has been present for the past 4 months. At this time, she received a hip replacement surgery by Dr. Ziegler. She rates her pain a 7/10 in severity. Her pain worsens with movement. At rest, her pain is described as an ache, but with movement her pain shoots from her hip to her knee. She saw Dr. Ziegler 4 weeks ago and received x-rays of her knee and hip that were negative. She notes some mild ankle swelling on the right as well. She has a Fentanyl patch for her chronic neck and back pain. She denies any other symptoms. Source of History: patient Onset: 4 months ago Position: leg (right) Symptom Intensity: 7/10 Quality: ache Timing: constant Modifying Factors (Worsening): movement Note: She has some mild right ankle swelling. She denies any other abnormal symptoms. Review of Systems See HPI for pertinent positives & negatives. A total of 10 systems reviewed and were otherwise negative. Past Medical & Surgical Medical Problems: (1) Anxiety (2) Bipolar disorder (3) Bipolar Disorder, Unspecified (4) Cervicalgia (5) Chronic alcoholism in remission (6) Chronic back pain (7) Chronic headache (8) Chronic hepatitis C (9) Chronic obstructive lung disease (10) Chronic urinary urge incontinence (11) Closed head injury (12) Depression (13) Gastroesophageal reflux disease (14) Gastroparesis (15) History of aspiration pneumonia (16) History of Clostridium difficile colitis (17) History of drug abuse (18) History of sepsis (19) History of supraventricular tachycardia (20) Lumbago (21) Osteoarthritis (22) Osteoarthritis of hip (23) Osteoporosis (24) Pancreatitis (25) PTSD (post-traumatic stress disorder) (26) seroma Right hip (27) SVT (supraventricular tachycardia) (28) Ulnar neuropathy Surgical Problems: (1) Bladder Repair (2) H/O colonoscopy (3) H/O cystoscopy (4) H/O esophagogastroduodenoscopy (5) H/O sinus surgery (6) History of hip surgery (7) Right Tibia/Fibula Repair (8) S/P cervical spinal fusion (9) s/p colonoscopy (10) s/p cystoscopy (11) s/p EGD (12) S/p esophagogastric fundoplasty (13) s/p laparoscopic fundoplication hiatal hernia (14) S/p lumbar decompression/fusion (15) S/P ORIF (open reduction internal fixation) fracture (16) s/p reconstruction hip socket (17) s/p tonsillectomy (18) S/P tonsillectomy and adenoidectomy (19) s/p tubal ligation (20) S/P tubal ligation Family History Diabetes mellitus FATHER GRANDMOTHER FH: colon cancer GRANDMOTHER Gallbladder disease Heart disease Hypertension FATHER MOTHER Kidney disease Kidney stones Social History Smoking Status: Current Every Day Smoker Alcohol Use: none Drug Use: other Marital Status: Housing Status: lives with family Occupation Status: disabled Current/Historical Medications Scheduled Aripiprazole (Abilify), 30 MG PO QAM Aspirin (Aspirin Ec), 325 MG PO BID Baclofen (Lioresal), 10 MG PO TID Buspirone Hcl (Buspirone Hcl), 20 TAB PO BID Cetirizine (Zyrtec), 10 MG PO QAM Cyclobenzaprine Hcl (Flexeril), 1 TAB PO TID Divalproex Sodium (Depakote Delay Rel), 250 MG PO QAM Docusate Sodium (Colace), 1 CAP PO BID Fentanyl (Duragesic), 1 DOSE EXT Q72H Ferrous Sulfate (Ferrous Sulfate), 325 MG PO QAM Folic Acid (Folvite), 1 MG PO QAM Lamotrigine (Lamictal), 1 TAB PO BID Lidocaine (Lidoderm Patch 5%), 1 PATCH TD DAILY Lorazepam (Lorazepam), 1 TAB PO BID Metoclopramide Hcl (Reglan), 5 MG PO ACHS Metoprolol Succinate (Toprol Xl), 25 MG PO QAM Mirabegron (Myrbetriq Er), 50 MG PO QAM Montelukast Sodium (Singulair), 10 MG PO HS Multivitamin (Multivitamin), 1 TAB PO QAM Ocuvite Preservision (Ocuvite Preservision), 1 TAB PO DAILY Pantoprazole Sodium (Protonix), 1 TAB PO DAILY Sulindac (Sulindac), 150 MG PO BID Topiramate (Topamax), 100 MG PO BID Venlafaxine HCl (Venlafaxine HCl ER), 75 MG PO QAM Venlafaxine Hcl (Effexor Extended Rel), 300 MG PO QAM Venlafaxine Hcl (Effexor Extended Rel), 150 MG PO QAM Venlafaxine Hcl (Effexor Extended Rel), 225 MG PO QPM Zolpidem Tartrate (Ambien), 10 MG PO HS Scheduled PRN Albuterol (Ventolin Hfa), 90 MCG INH for Wheezing Bisacodyl (Dulcolax), 1 SUPP UT WK PRN for Constipation Formoterol Fumarate (Perforomist), 20 MCG INH for Wheezing Furosemide (Lasix), 20 MG PO DAILY PRN for SWELLING Glycerin (Laxative) (Cvs Glycerin Adult), 1 SUPP RE UD PRN for PRN Hydrocodon/Acetaminophen 10MG/300MG (Vicodin Hp (10MG/300MG)), 1 TAB PO for Pain Hydrocodon/Acetaminophen 5MG/300MG (Vicodin (5MG/300MG)), 1 TAB PO Q6H PRN for Pain Nystatin (Topical) (Nystatin), 1 APPLN TOP DIRECTED PRN for Affected Skin Folds Ondansetron Hcl (Zofran), 8 MG PO Q6H PRN for Nausea Polyethylene Glycol 3350 (Miralax), 17 GM PO DAILY PRN for PRN Potassium Chloride (Micro-K Ext Rel), 10 MEQ PO DAILY PRN for PRN Miscellaneous Medications Calcium Carbonate-Vitamin D (Oscal 500/200 D-3) Famotidine (Pepcid), 40 MG PO Allergies Coded Allergies: Hydroxyzine (Verified Allergy, Severe, THROAT CONSTRICTS/CAN NOT VOID, 06/21) Clarithromycin (Verified Adverse Reaction, Intermediate, vomiting, 06/21/17) Chlorpromazine (Verified Adverse Reaction, Unknown, LIGHTHEADED DIZZY, 06/21) Lisinopril (Verified Adverse Reaction, Unknown, Cough, 06/21/17) Reported by PT. Physical Exam Vital Signs Date Time Temp Pulse Resp B/P (MAP) Pulse Ox O2 Delivery O2 Flow Rate FiO2 08/18/17 22:05 78 17 122/76 95 08/18/17 21:41 78 17 122/76 95 Room Air 08/18/17 20:10 82 16 127/68 97 Room Air 08/18/17 17:57 37.4 84 20 133/78 94 Room Air Physical Exam GENERAL: Patient is a healthy-appearing well-nourished woman HEAD: Normocephalic atraumatic EYES: Ocular movements intact pupils equal and react to light OROPHARYNX mucous membranes are moist no exudates present no erythema or edema present NECK: Supple no nuchal rigidity CHEST: Good equal expansion LUNGS: Clear and equal to auscultation CARDIAC: Normal S1 and S2 ABDOMEN: Soft nontender no guarding BACK: No CVA tenderness EXTREMITIES: Good ROM of the right hip. Wound dressing in place. Patient follows up with the [facility]ound [facility]. Healing well. NEURO: Patient is following commands and answering questions appropriately. Alert and oriented x3 Cranial Nerves 2-12 grossly intact Medical Decision & Procedures ER Provider Diagnostic Interpretation: Radiology results as stated below per my review and radiologist interpretation: SINGLE VIEW PELVIS; 3 VIEWS RIGHT FEMUR CLINICAL HISTORY: Right hip pain. FINDINGS: An AP view of the pelvis with AP, frog-leg, and lateral views of the right femur are compared to studies dated 04/11/2017 and correlated with pelvic CT dated 06/21/2017. The skeletal structures are osteopenic. A bipolar right hip arthroplasty is unchanged in position. No periprosthetic lucency is identified. No acute fracture is seen involving the bony pelvis or the right femur. Mild arthritic change is noted in the left hip. There are chronic postoperative changes and posttraumatic deformity with buttress plate fixation involving the right acetabulum and the right iliac wing. Chronic posttraumatic deformity is also seen in the left iliac wing. There is also extensive lumbosacral fusion hardware and bilateral iliac bolts. Postoperative change in the right tibia is partially visualized. There is a nonobstructed abdominal bowel gas pattern. Moderate to advanced constipation is observed. The overlying soft tissues are within normal limits. IMPRESSION: 1. No fracture is seen involving the bony pelvis or the right femur. 2. Extensive chronic posttraumatic and postoperative findings as above. 3. Moderate to severe constipation. Electronically signed by: Jeffry Colunga M.D. 08/18/2017 6:57 PM Dictated Date/Time: 08/18/2017 6:52 PM ULTRASOUND RIGHT LOWER EXTREMITY VENOUS CLINICAL HISTORY: Right leg pain. COMPARISON STUDY: Right lower extremity venous ultrasound dated 06/23/2015 TECHNIQUE: Real-time, grayscale, and color Doppler sonography of the deep veins of the right lower extremity was performed from the inguinal crease to the calf. Compression and augmentation were utilized. FINDINGS: There is no sonographic evidence of deep venous thrombosis identified in the right lower extremity. The common femoral, superficial femoral, and popliteal veins are patent and normally compressible. The greater saphenous vein and the profunda femoris vein at the junction with the common femoral vein are clear. The visualized calf veins are patent. IMPRESSION: There is no sonographic evidence of deep venous thrombosis identified in the right lower extremity. Electronically signed by: Jeffry Colunga M.D. 08/18/2017 7:03 PM Dictated Date/Time: 08/18/2017 7:02 PM SINGLE VIEW PELVIS; 3 VIEWS RIGHT FEMUR CLINICAL HISTORY: Right hip pain. FINDINGS: An AP view of the pelvis with AP, frog-leg, and lateral views of the right femur are compared to studies dated 04/11/2017 and correlated with pelvic CT dated 06/21/2017. The skeletal structures are osteopenic. A bipolar right hip arthroplasty is unchanged in position. No periprosthetic lucency is identified. No acute fracture is seen involving the bony pelvis or the right femur. Mild arthritic change is noted in the left hip. There are chronic postoperative changes and posttraumatic deformity with buttress plate fixation involving the right acetabulum and the right iliac wing. Chronic posttraumatic deformity is also seen in the left iliac wing. There is also extensive lumbosacral fusion hardware and bilateral iliac bolts. Postoperative change in the right tibia is partially visualized. There is a nonobstructed abdominal bowel gas pattern. Moderate to advanced constipation is observed. The overlying soft tissues are within normal limits. IMPRESSION: 1. No fracture is seen involving the bony pelvis or the right femur. 2. Extensive chronic posttraumatic and postoperative findings as above. 3. Moderate to severe constipation. Electronically signed by: Jeffry Colunga M.D. 08/18/2017 6:57 PM Dictated Date/Time: 08/18/2017 6:[address] SCAN OF THE BONY PELVIS WITHOUT IV CONTRAST; CT SCAN OF THE RIGHT HIP WITHOUT IV CONTRAST CLINICAL HISTORY: Chronic pelvic and right leg pain. COMPARISON STUDY: CT scan of the pelvis dated 06/21/2017. Radiographs of the pelvis and right femur dated 08/18/2017. TECHNIQUE: CT scan of the bony pelvis is performed from the pelvic inlet to the proximal femora. CT scan of the right hip is performed from the bony pelvis to the distal femoral shaft. Images are reviewed in the axial, sagittal, and coronal planes. IV contrast was not administered for this examination. The examination is degraded by streak artifact from extensive orthopedic hardware and a right hip arthroplasty. A dose lowering technique was utilized adhering to the principles of ALARA. CT DOSE: 989.92 mGy.cm FINDINGS: The skeletal structures are osteopenic. No acute fracture is seen involving the hips, bony pelvis, or right femur. Extensive lumbosacral spinal fusion hardware and iliac bolts are in place. Chronic posttraumatic deformity and postoperative change are seen involving the right bony pelvis and acetabulum. A right hip arthroplasty is unchanged in position. Bony discontinuity of the medial wall of the right acetabulum is similar to previous. No periprosthetic lucency is suggested. Chronic posttraumatic deformity is seen involving the left iliac wing. There are healed bilateral pubic ring fractures. There is no pelvic sidewall lymphadenopathy. Prominent right inguinal lymph nodes are likely on a reactive basis. These are not pathologically enlarged by size criteria. The visualized small bowel loops and colon are normal in caliber. A normal appendix is identified. There is moderate colonic fecal retention. Postoperative change is seen in the soft tissues overlying the right hip. The musculature of the pelvis and upper thighs is atrophic. No intramuscular hematoma is seen. IMPRESSION: 1. No acute bony abnormality seen involving the bony pelvis or right hip. 2. Extensive posttraumatic and postoperative change as above. 3. Osseous findings are overall similar to the 06/21/2017 examination. Dictated: 08/18/2017 8:59 PM Transcribed: 08/18/2017 9:39 PM [email or web address] Electronically signed by: Jeffry Colunga M.D. 08/18/2017 9:41 PM Dictated Date/Time: 08/18/2017 8:[address] SCAN OF THE BONY PELVIS WITHOUT IV CONTRAST; CT SCAN OF THE RIGHT HIP WITHOUT IV CONTRAST CLINICAL HISTORY: Chronic pelvic and right leg pain. COMPARISON STUDY: CT scan of the pelvis dated 06/21/2017. Radiographs of the pelvis and right femur dated 08/18/2017. TECHNIQUE: CT scan of the bony pelvis is performed from the pelvic inlet to the proximal femora. CT scan of the right hip is performed from the bony pelvis to the distal femoral shaft. Images are reviewed in the axial, sagittal, and coronal planes. IV contrast was not administered for this examination. The examination is degraded by streak artifact from extensive orthopedic hardware and a right hip arthroplasty. A dose lowering technique was utilized adhering to the principles of ALARA. CT DOSE: 989.92 mGy.cm FINDINGS: The skeletal structures are osteopenic. No acute fracture is seen involving the hips, bony pelvis, or right femur. Extensive lumbosacral spinal fusion hardware and iliac bolts are in place. Chronic posttraumatic deformity and postoperative change are seen involving the right bony pelvis and acetabulum. A right hip arthroplasty is unchanged in position. Bony discontinuity of the medial wall of the right acetabulum is similar to previous. No periprosthetic lucency is suggested. Chronic posttraumatic deformity is seen involving the left iliac wing. There are healed bilateral pubic ring fractures. There is no pelvic sidewall lymphadenopathy. Prominent right inguinal lymph nodes are likely on a reactive basis. These are not pathologically enlarged by size criteria. The visualized small bowel loops and colon are normal in caliber. A normal appendix is identified. There is moderate colonic fecal retention. Postoperative change is seen in the soft tissues overlying the right hip. The musculature of the pelvis and upper thighs is atrophic. No intramuscular hematoma is seen. IMPRESSION: 1. No acute bony abnormality seen involving the bony pelvis or right hip. 2. Extensive posttraumatic and postoperative change as above. 3. Osseous findings are overall similar to the 06/21/2017 examination. Dictated: 08/18/2017 8:59 PM Transcribed: 08/18/2017 9:39 PM [email or web address] Electronically signed by: Jeffry Colunga M.D. 08/18/2017 9:41 PM Dictated Date/Time: 08/18/2017 8:59 PM Medications Administered Medications (Trade) Dose Ordered Sig/Jennifer Route Start Time Stop Time Status Last Admin Dose Admin Hydromorphone HCl (Dilaudid Inj) 1 mg NOW STAT IM 08/18/17 18:16 08/18/17 18:20 DC 08/18/17 20:02 1 MG Lidocaine (Lidoderm Patch 5%) 1 patch NOW STAT TD 08/18/17 18:16 08/18/17 18:20 DC 08/18/17 20:03 1 PATCH Ketorolac Tromethamine (Toradol Inj) 60 mg NOW STAT IM 08/18/17 18:16 08/18/17 18:20 DC 08/18/17 20:02 60 MG Ondansetron HCl (Zofran Odt) 4 mg ONE STAT PO 08/18/17 18:16 08/18/17 18:20 DC 08/18/17 20:02 4 MG ED Course 1807: Past medical records reviewed. The patient was evaluated in room A7. A complete history and physical examination was performed. 1815: Ordered Zofran Odt 4 mg PO, Toradol Inj 60 mg IM, Lidocaine 1 patch TD, Dilaudid Inj 1 mg IM 1932: Upon reexamination the patient is resting. I discussed results and treatment plan with the patient. She verbalizes agreement and understanding. The patient is ready for discharge. 1958: She would like a CT scan now. She notes that she did not go to Physical Therapy all of last week. 2200: Upon reexamination the patient is resting. I discussed results and treatment plan with the patient. She verbalizes agreement and understanding. The patient is ready for discharge. Medical Decision Differential diagnosis: Etiologies such as fracture, dislocation, intra-abdominal, pneumothorax, intrathoracic , intracranial, neurologic, as well as other traumatic pathologies were entertained. This is a 56-year-old female who presents emergency department complaining of right hip pain the patient reports that she has been having hip pain chronically for at least the last [address] Ziegler recently performed surgery on her hip. She is neurovascularly intact. She is also following with wound clinic for her hip. The surgical dressing has granulation tissue present and has no evidence of infection. The patient missed physical therapy all last week due to a cold. She was sent for a x-ray of her pelvis and femur which did not show any acute process. She also has no evidence of DVT on ultrasound. The patient is requesting a CAT scan to take a further look at her leg. This does not show any acute process. Based on these findings I stressed to the patient that she needs follow-up with orthopedics. She was given Dilaudid for the pain in the emergency department along with Toradol. I will place a Lidoderm patch to help manage the patient's pain better. [place] Drug Monitoring Program Search Results: patient reviewed within database Drug Monitoring Findings: She received 60 10 mg Percocet tablets by her PCP along with Ambien. Medication Reconcilliation Current Medication List: was personally reviewed by me Blood Pressure Screening Patient's blood pressure: Normal blood pressure Blood pressure disposition: Did not require urgent referral Impression Primary Impression: Right hip pain Scribe Attestation The scribe's documentation has been prepared under my direction and personally reviewed by me in its entirety. I confirm that the note above accurately reflects all work, treatment, procedures, and medical decision making performed by me. Departure Information Dispostion Home / Self-Care Prescriptions Lidocaine (Lidoderm Patch 5%) 1 Ea Tdsy 1 PATCH TD DAILY, #30 PATCH Prov: Yaw Garland MD 08/18/17 Referrals Jerome Murillo M.D. (PCP) Gil Ruvalcaba M.D. Spencer, Brian A., DO Forms HOME CARE DOCUMENTATION FORM, IMPORTANT VISIT INFORMATION Patient Instructions ED Sprain Hip, Hip How Works, Hip Replace Exercise Walker Crutch, My [facility] Additional Instructions Follow up with Dr Ruvalcaba's office for pain management Follow up with Dr Ziegler's office for continud hip pain
--- NOTE | 2017-08-18 18:58 | DIAGNOSTIC IMAGING REPORT ---
SINGLE VIEW PELVIS; 3 VIEWS RIGHT FEMUR CLINICAL HISTORY: Right hip pain. FINDINGS: An AP view of the pelvis with AP, frog-leg, and lateral views of the right femur are compared to studies dated 04/11/2017 and correlated with pelvic CT dated 06/21/2017. The skeletal structures are osteopenic. A bipolar right hip arthroplasty is unchanged in position. No periprosthetic lucency is identified. No acute fracture is seen involving the bony pelvis or the right femur. Mild arthritic change is noted in the left hip. There are chronic postoperative changes and posttraumatic deformity with buttress plate fixation involving the right acetabulum and the right iliac wing. Chronic posttraumatic deformity is also seen in the left iliac wing. There is also extensive lumbosacral fusion hardware and bilateral iliac bolts. Postoperative change in the right tibia is partially visualized. There is a nonobstructed abdominal bowel gas pattern. Moderate to advanced constipation is observed. The overlying soft tissues are within normal limits. IMPRESSION: 1. No fracture is seen involving the bony pelvis or the right femur. 2. Extensive chronic posttraumatic and postoperative findings as above. 3. Moderate to severe constipation. Electronically signed by: Jeffry Colunga M.D. 08/18/2017 6:57 PM Dictated Date/Time: 08/18/2017 6:52 PM
--- NOTE | 2017-08-18 19:04 | DIAGNOSTIC IMAGING REPORT ---
ULTRASOUND RIGHT LOWER EXTREMITY VENOUS CLINICAL HISTORY: Right leg pain. COMPARISON STUDY: Right lower extremity venous ultrasound dated 06/23/2015 TECHNIQUE: Real-time, grayscale, and color Doppler sonography of the deep veins of the right lower extremity was performed from the inguinal crease to the calf. Compression and augmentation were utilized. FINDINGS: There is no sonographic evidence of deep venous thrombosis identified in the right lower extremity. The common femoral, superficial femoral, and popliteal veins are patent and normally compressible. The greater saphenous vein and the profunda femoris vein at the junction with the common femoral vein are clear. The visualized calf veins are patent. IMPRESSION: There is no sonographic evidence of deep venous thrombosis identified in the right lower extremity. Electronically signed by: Jeffry Colunga M.D. 08/18/2017 7:03 PM Dictated Date/Time: 08/18/2017 7:02 PM
[2017-08-18] MEDS ORDERED: NF656 TD (19:19)
--- NOTE | 2017-08-18 21:40 | DIAGNOSTIC IMAGING REPORT ---
CT SCAN OF THE BONY PELVIS WITHOUT IV CONTRAST; CT SCAN OF THE RIGHT HIP WITHOUT IV CONTRAST CLINICAL HISTORY: Chronic pelvic and right leg pain. COMPARISON STUDY: CT scan of the pelvis dated 06/21/2017. Radiographs of the pelvis and right femur dated 08/18/2017. TECHNIQUE: CT scan of the bony pelvis is performed from the pelvic inlet to the proximal femora. CT scan of the right hip is performed from the bony pelvis to the distal femoral shaft. Images are reviewed in the axial, sagittal, and coronal planes. IV contrast was not administered for this examination. The examination is degraded by streak artifact from extensive orthopedic hardware and a right hip arthroplasty. A dose lowering technique was utilized adhering to the principles of ALARA. CT DOSE: 989.92 mGy.cm FINDINGS: The skeletal structures are osteopenic. No acute fracture is seen involving the hips, bony pelvis, or right femur. Extensive lumbosacral spinal fusion hardware and iliac bolts are in place. Chronic posttraumatic deformity and postoperative change are seen involving the right bony pelvis and acetabulum. A right hip arthroplasty is unchanged in position. Bony discontinuity of the medial wall of the right acetabulum is similar to previous. No periprosthetic lucency is suggested. Chronic posttraumatic deformity is seen involving the left iliac wing. There are healed bilateral pubic ring fractures. There is no pelvic sidewall lymphadenopathy. Prominent right inguinal lymph nodes are likely on a reactive basis. These are not pathologically enlarged by size criteria. The visualized small bowel loops and colon are normal in caliber. A normal appendix is identified. There is moderate colonic fecal retention. Postoperative change is seen in the soft tissues overlying the right hip. The musculature of the pelvis and upper thighs is atrophic. No intramuscular hematoma is seen. IMPRESSION: 1. No acute bony abnormality seen involving the bony pelvis or right hip. 2. Extensive posttraumatic and postoperative change as above. 3. Osseous findings are overall similar to the 06/21/2017 examination. Dictated: 08/18/2017 8:59 PM Transcribed: 08/18/2017 9:39 PM [email or web address] Electronically signed by: Jeffry Colunga M.D. 08/18/2017 9:41 PM Dictated Date/Time: 08/18/2017 8:59 PM
[2017-08-18 22:05] VITALS: BP 122/76; PULSE 78; O2SAT 95
== END 2017-08-18 22:05 | disposition home or self-care (01) ==
LOC: C.EDB 17:45 → C.EDA 22:05
DX: M25.551 Pain in right hip (principal); F31.9 Bipolar disorder, unspecified; F41.9 Anxiety disorder, unspecified; B19.20 Unspecified viral hepatitis C without hepatic coma; J44.9 Chronic obstructive pulmonary disease, unspecified; K31.84 Gastroparesis; K21.9 Gastro-esophageal reflux disease without esophagitis; M19.90 Unspecified osteoarthritis, unspecified site; M81.0 Age-related osteoporosis without current pathological fracture; K86.1 Other chronic pancreatitis; G89.29 Other chronic pain; Z86.19 Personal history of other infectious and parasitic diseases; Z87.828 Personal history of other (healed) physical injury and trauma; Z98.1 Arthrodesis status; Z98.51 Tubal ligation status; Z98.890 Other specified postprocedural states; F17.200 Nicotine dependence, unspecified, uncomplicated; Z79.82 Long term (current) use of aspirin; Z79.899 Other long term (current) drug therapy; Z88.8 Allergy status to other drugs, medicaments and biological substances; Z83.3 Family history of diabetes mellitus; Z80.0 Family history of malignant neoplasm of digestive organs; Z82.49 Family history of ischemic heart disease and other diseases of the circulatory system; Z84.1 Family history of disorders of kidney and ureter

== ENCOUNTER 2017-10-12 12:50 | Emergency (ER) | payer OTHER ==
[~2017-10-12] VITALS: Ht 157.5 cm; Wt 65.0 kg
[~2017-10-12 12:50] MED LIST changes: +AMOX1TAB42 PO; +AMT24 PO; -CALC200T; +CALC200T PO; -FENT25DI10 EXT; +FENT25DI10 TD; +FERR1TAB62 PO; -FERR325T PO; +NF656 TD; +PRD/1 PO
[2017-10-12 12:54] VITALS: TEMP 37.5; Ht 157.5 cm; Wt 65.0 kg
[2017-10-12] MEDS ORDERED: OPTIRAY 320 IV PRN (13:30)
[2017-10-12] MEDS ORDERED: HYDR-5806 PO (13:37)
[2017-10-12] MEDS ORDERED: GABA-113 PO (13:41)
[2017-10-12 14:25] LABS: BASO % 0.2 %; BASO ABS # 0.02 K/uL (0-0.2); COMPLETE YES; EOS % 0.5 %; HEMATOCRIT 33.1 % (37-47); IG% 0.3 %; LYMPH % 18.2 %; LYMPH ABS # 1.75 K/uL (1.2-3.4); MEAN CELL VOLUME 93.5 fL (80-100); MEAN CORPUSCULAR HEMOGLOBIN 30.2 pg (25-34); MEAN CORPUSCULAR HGB CONC 32.3 g/dl (32-36); MEAN PLATELET VOLUME 8.1 fL (7.4-10.4); MONO % 7.1 %; NEUT % 73.7 %; PLATELET COUNT 382 K/uL (130-400); RED BLOOD COUNT 3.54 M/uL (4.2-5.4); WHITE BLOOD COUNT 9.64 K/uL (4.8-10.8)
[2017-10-12 14:43] LABS: BUN/CREATININE RATIO 11.3 (10-20); CALCIUM 9.8 mg/dl (8.5-10.1); CREATININE 0.54 mg/dl (0.60-1.20); POTASSIUM 3.9 mmol/L (3.5-5.1)
[2017-10-12] MEDS ORDERED: GABAPENTIN 600 MG TAB PO STA (15:07)
--- NOTE | 2017-10-12 15:39 | DIAGNOSTIC IMAGING REPORT ---
LUMBAR SPINE WITHOUT HISTORY: 57 years-old Female lower back pain acute severe right-sided leg and lower back pain. No reported trauma COMPARISON: Lumbar spine radiographs 01/11/2017, lumbar spine CT 06/28/2015 TECHNIQUE: Multiple axial CT images of the lumbar spine were obtained without contrast. A dose lowering technique was used consistent with the principals of [facility]. FINDINGS: Extensive posterior gia and screw fusion hardware of the spine is noted extending from L1 through the iliac wings bilaterally. There has been interval removal of the previously noted fusion screws at S1. There is unchanged 12 mm anterolisthesis L5 on S1. Discectomy changes at L4-L5. Extensive fragmentation of the L5-S1 disc space redemonstrated. There is healing of the previously described sacral insufficiency fractures on study dated 06/28/2015. There is lucency surrounding the screws at the L1 level which extends from the pedicles into the vertebral body itself. The bilateral L1 screws have eroded through the L1 superior endplate and are now present within the T12-L1 disc space. 35% anterior endplate compression deformity of L2 has progressed from comparison radiographs 01/11/2017 and is new from comparison CT 06/28/2015. Remote L1 and L4 Schmorl's nodes or small compression deformity is again noted. No retropulsion. No definite high-grade central canal or foraminal narrowing identified, however CT is relatively insensitive compared to that of MR. No acute intra-abdominal, intrapelvic or paraspinal abnormality identified. Urinary bladder distention. IMPRESSION: 1. 35% anterior endplate compression deformity of L2 has progressed from comparison radiographs 01/11/2017 and is new from comparison CT 06/28/2015. No retropulsion or high-grade central canal narrowing identified. 2. Postoperative changes with posterior gia and screw fusion extending from L1 through the bilateral iliac bones. There is lucency surrounding the bilateral pedicle screws at L1 with migration of the screws through the superior endplate of L1 into the T12-L1 disc space. 3. Additional chronic findings as above. The above report was generated using voice recognition software. It may contain grammatical, syntax or spelling errors. Electronically signed by: Jared Louis M.D. 10/12/2017 3:38 PM Dictated Date/Time: 10/12/2017 3:26 PM
--- NOTE | 2017-10-12 15:50 | DIAGNOSTIC IMAGING REPORT ---
R LOWER EXTREMITY WITH HISTORY: 57 years-old Female r proximal hip pain acute right hip pain with right hip surgery 6 months prior. Concern for possible abscess COMPARISON: Pelvis CT 08/18/2017 TECHNIQUE: Multiple axial CT images of the right lower extremity were obtained following the intravenous administration of 94 no Optiray 320 IV contrast. A dose lowering technique was used consistent with the principals of [facility]. FINDINGS: There is moderate distention of the urinary bladder. Moderate colonic stool volume also noted. Evaluation of the intraabdominal and intrapelvic structures is limited secondary to prominent streak artifact from lower lumbar spine and right iliac wing metallic hardware. Postoperative changes are again seen involving the right hemipelvis. Right hip arthroplasty noted with satisfactory alignment. No evidence of periprosthetic fracture or hardware loosening. No acute fracture or dislocation. Remote appearing fracture of the inferior left pubic ramus is partially imaged. There is suggestion of a focal low attenuating collection lateral to the right acetabulum measuring up to 5.3 x 3.4 cm as seen on image 30 of series 4, however evaluation is limited secondary to streak artifact. IMPRESSION: 1. Suggestion of a low attenuating collection lateral to the right acetabulum measuring up to 5.3 x 3.4 cm. Differential considerations would include seroma or abscess. This could be further evaluated with ultrasound as evaluation by CT is limited secondary to streak artifact. 2. Postoperative changes of the right hip, lumbar spine and right hemipelvis as above. 3. Urinary bladder distention. The above report was generated using voice recognition software. It may contain grammatical, syntax or spelling errors. Electronically signed by: Jared Louis M.D. 10/12/2017 3:49 PM Dictated Date/Time: 10/12/2017 3:40 PM
[2017-10-12] MEDS ORDERED: GABAPENTIN 300 MG CAP PO STA (15:51)
[2017-10-12] MEDS ORDERED: MoRPHine SULFATE 10 MG/ML CARP/VIAL IV STA (16:16)
[2017-10-12 18:01] VITALS: BP 115/78; PULSE 83; O2SAT 97
--- NOTE | 2017-10-12 18:16 | EMERGENCY ROOM VISIT NOTE ---
History Report prepared by Tonya: Royal Jensen Under the Supervision of: Dr. Lexx Williamson D.O. First contact with patient: 13:00 Chief Complaint: LEG PAIN,LEG INJURY Stated Complaint: SEVERE R LEG PAIN - LOWER BACK PAIN History of Present Illness The patient is a 57 year old female who presents to the Emergency Room with complaints of right hip pain that began 6 months ago. At that time, she had her hip replaced by Dr. Ziegler from orthopedics. She has been following up with him about her pain. Her hip incision is still open, so she has been [facility]. Her hip pain intermittently shoots down her entire right leg. Along with this, she has a long 10 year history of chronic lower back pain with two spinal fusion procedures in 2015. She notes that she believes that her right leg is weaker than usual today. She has been using her cane as she normally does. Previously she was using a walker but has been doing better and is no longer using this. Pt denies any trauma, falls, headache , change in vision, fevers, chest pain, shortness of breath, nausea, vomiting, diarrhea, pain with urination, numbness, trouble urinating/defecating, and melena. Her pain worsens with movement. Source of History: patient Onset: 6 months ago Position: other (right hip) Symptom Intensity: moderate Quality: sharp Timing: constant Modifying Factors (Worsening): movement Associated Symptoms: + weakness (right leg), No fevers, No chest pain, No SOB, No nausea, No vomiting, No melena, No diarrhea, No urinary symptoms, No numbness Review of Systems See HPI for pertinent positives & negatives. A total of 10 systems reviewed and were otherwise negative. Past Medical & Surgical Medical Problems: (1) Anxiety (2) Bipolar disorder (3) Bipolar Disorder, Unspecified (4) Cervicalgia (5) Chronic alcoholism in remission (6) Chronic back pain (7) Chronic headache (8) Chronic hepatitis C (9) Chronic obstructive lung disease (10) Chronic urinary urge incontinence (11) Closed head injury (12) Depression (13) Gastroesophageal reflux disease (14) Gastroparesis (15) History of aspiration pneumonia (16) History of Clostridium difficile colitis (17) History of drug abuse (18) History of sepsis (19) History of supraventricular tachycardia (20) Lumbago (21) Osteoarthritis (22) Osteoarthritis of hip (23) Osteoporosis (24) Pancreatitis (25) PTSD (post-traumatic stress disorder) (26) seroma Right hip (27) SVT (supraventricular tachycardia) (28) Ulnar neuropathy Surgical Problems: (1) Bladder Repair (2) H/O colonoscopy (3) H/O cystoscopy (4) H/O esophagogastroduodenoscopy (5) H/O sinus surgery (6) History of hip surgery (7) Right Tibia/Fibula Repair (8) S/P cervical spinal fusion (9) s/p colonoscopy (10) s/p cystoscopy (11) s/p EGD (12) S/p esophagogastric fundoplasty (13) s/p laparoscopic fundoplication hiatal hernia (14) S/p lumbar decompression/fusion (15) S/P ORIF (open reduction internal fixation) fracture (16) s/p reconstruction hip socket (17) s/p tonsillectomy (18) S/P tonsillectomy and adenoidectomy (19) s/p tubal ligation (20) S/P tubal ligation Family History Diabetes mellitus FATHER GRANDMOTHER FH: colon cancer GRANDMOTHER Gallbladder disease Heart disease Hypertension FATHER MOTHER Kidney disease Kidney stones Social History Smoking Status: Current Some Day Smoker Alcohol Use: none Drug Use: other Marital Status: Housing Status: lives with family Occupation Status: disabled Current/Historical Medications Scheduled Aripiprazole (Abilify), 30 MG PO QAM Baclofen (Lioresal), 10 MG PO TID Buspirone Hcl (Buspirone Hcl), 20 TAB PO BID Calcium Carbonate-Vitamin D (Oscal 500/200 D-3), 1 TAB PO DAILY Cetirizine (Zyrtec), 10 MG PO QAM Famotidine (Pepcid), 40 MG PO DAILY Fentanyl (Duragesic), 25 MCG TD Q72H Ferrous Sulfate (Ferrous Sulfate), 325 MG PO QAM Gabapentin (Neurontin), 300 MG PO TID Lamotrigine (Lamictal), 150 MG PO BID Lubiprostone (Amitiza), 24 MCG PO BID Metoclopramide Hcl (Reglan), 5 MG PO ACHS Metoprolol Succinate (Toprol Xl), 25 MG PO QAM Mirabegron (Myrbetriq Er), 50 MG PO QAM Montelukast Sodium (Singulair), 10 MG PO HS Multivitamin (Multivitamin), 1 TAB PO QAM Ocuvite Preservision (Ocuvite Preservision), 1 TAB PO DAILY Sulindac (Sulindac), 150 MG PO BID Scheduled PRN Albuterol (Ventolin Hfa), 90 MCG INH for Wheezing Cyclobenzaprine Hcl (Flexeril), 10 TAB PO TID PRN for Muscle Spasms Formoterol Fumarate (Perforomist), 20 MCG INH for Wheezing Furosemide (Lasix), 20 MG PO DAILY PRN for SWELLING Hydrocodone-Acetaminophen (Hydrocodone Bitartrate/AC 10-325 mg), 1 TAB PO BID PRN for Pain Lorazepam (Lorazepam), 1 MG PO BID PRN for Anxiety Ondansetron Hcl (Zofran), 8 MG PO Q6H PRN for Nausea Polyethylene Glycol 3350 (Miralax), 17 GM PO DAILY PRN for PRN Potassium Chloride (Micro-K Ext Rel), 10 MEQ PO DAILY PRN for PRN Allergies Coded Allergies: Hydroxyzine (Verified Allergy, Severe, THROAT CONSTRICTS/CAN NOT VOID, ) Clarithromycin (Verified Adverse Reaction, Intermediate, vomiting, ) Chlorpromazine (Verified Adverse Reaction, Unknown, LIGHTHEADED DIZZY, ) Lisinopril (Verified Adverse Reaction, Unknown, Cough, 10/12/17) Reported by PT. Physical Exam Vital Signs Date Time Temp Pulse Resp B/P (MAP) Pulse Ox O2 Delivery O2 Flow Rate FiO2 10/12/17 18:01 83 20 115/78 97 10/12/17 15:57 91 16 129/75 99 Room Air 10/12/17 14:25 96 15 126/79 96 Room Air 10/12/17 12:54 37.5 99 20 135/88 100 Room Air Physical Exam GENERAL: Sitting up in bed, alert, well appearing, well nourished, moderate distress holding right thigh, non-toxic EYE EXAM: normal conjunctiva. OROPHARYNX: no exudate, no erythema, lips, buccal mucosa, and tongue normal and mucous membranes are moist NECK: supple, no nuchal rigidity, no adenopathy, non-tender LUNGS: Clear to auscultation. Normal chest wall mechanics HEART: no murmurs, S1 normal and S2 normal ABDOMEN: abdomen soft, non-tender, normo-active bowel sounds, no masses, no rebound or guarding. BACK: Tenderness to palpation over right SI joint. No step off or midline deformities. Flexion and extension of the hip, knee, ankle, and EHL 5/5 bilaterally with significant pain of flexion of right hip. SKIN: no rashes and no bruising UPPER EXTREMITIES: upper extremities are grossly normal. LOWER EXTREMITIES: No pitting edema. Right hip with a small draining wound. No purulent discharge. No surrounding erythema or induration. NEURO EXAM: Normal sensorium, cranial nerves II-XII grossly intact, normal speech, no gross weakness of arms. Patellar and Achilles reflexes are 2/4 bilaterally. Medical Decision & Procedures ER Provider Diagnostic Interpretation: Radiology results as stated below per my review and the radiologist's interpretation: LUMBAR SPINE WITHOUT HISTORY: 57 years-old Female lower back pain acute severe right-sided leg and lower back pain. No reported trauma COMPARISON: Lumbar spine radiographs 01/11/2017, lumbar spine CT 06/28/2015 TECHNIQUE: Multiple axial CT images of the lumbar spine were obtained without contrast. A dose lowering technique was used consistent with the principals of ALARA. FINDINGS: Extensive posterior gia and screw fusion hardware of the spine is noted extending from L1 through the iliac wings bilaterally. There has been interval removal of the previously noted fusion screws at S1. There is unchanged 12 mm anterolisthesis L5 on S1. Discectomy changes at L4-L5. Extensive fragmentation of the L5-S1 disc space redemonstrated. There is healing of the previously described sacral insufficiency fractures on study dated 06/28/2015. There is lucency surrounding the screws at the L1 level which extends from the pedicles into the vertebral body itself. The bilateral L1 screws have eroded through the L1 superior endplate and are now present within the T12-L1 disc space. 35% anterior endplate compression deformity of L2 has progressed from comparison radiographs 01/11/2017 and is new from comparison CT 06/28/2015. Remote L1 and L4 Schmorl's nodes or small compression deformity is again noted. No retropulsion. No definite high-grade central canal or foraminal narrowing identified, however CT is relatively insensitive compared to that of MR. No acute intra-abdominal, intrapelvic or paraspinal abnormality identified. Urinary bladder distention. IMPRESSION: 1. 35% anterior endplate compression deformity of L2 has progressed from comparison radiographs 01/11/2017 and is new from comparison CT 06/28/2015. No retropulsion or high-grade central canal narrowing identified. 2. Postoperative changes with posterior gia and screw fusion extending from L1 through the bilateral iliac bones. There is lucency surrounding the bilateral pedicle screws at L1 with migration of the screws through the superior endplate of L1 into the T12-L1 disc space. 3. Additional chronic findings as above. The above report was generated using voice recognition software. It may contain grammatical, syntax or spelling errors. Electronically signed by: Jared Louis M.D. 10/12/2017 3:38 PM Dictated Date/Time: 10/12/2017 3:26 PM R LOWER EXTREMITY WITH HISTORY: 57 years-old Female r proximal hip pain acute right hip pain with right hip surgery 6 months prior. Concern for possible abscess COMPARISON: Pelvis CT 08/18/2017 TECHNIQUE: Multiple axial CT images of the right lower extremity were obtained following the intravenous administration of 94 no Optiray 320 IV contrast. A dose lowering technique was used consistent with the principals of ALARA. FINDINGS: There is moderate distention of the urinary bladder. Moderate colonic stool volume also noted. Evaluation of the intraabdominal and intrapelvic structures is limited secondary to prominent streak artifact from lower lumbar spine and right iliac wing metallic hardware. Postoperative changes are again seen involving the right hemipelvis. Right hip arthroplasty noted with satisfactory alignment. No evidence of periprosthetic fracture or hardware loosening. No acute fracture or dislocation. Remote appearing fracture of the inferior left pubic ramus is partially imaged. There is suggestion of a focal low attenuating collection lateral to the right acetabulum measuring up to 5.3 x 3.4 cm as seen on image 30 of series 4, however evaluation is limited secondary to streak artifact. IMPRESSION: 1. Suggestion of a low attenuating collection lateral to the right acetabulum measuring up to 5.3 x 3.4 cm. Differential considerations would include seroma or abscess. This could be further evaluated with ultrasound as evaluation by CT is limited secondary to streak artifact. 2. Postoperative changes of the right hip, lumbar spine and right hemipelvis as above. 3. Urinary bladder distention. The above report was generated using voice recognition software. It may contain grammatical, syntax or spelling errors. Electronically signed by: Jared Louis M.D. 10/12/2017 3:49 PM Dictated Date/Time: 10/12/2017 3:40 PM Laboratory Results 10/12/17 14:11 Red Blood Count 3.54, Mean Corpuscular Volume 93.5, Mean Corpuscular Hemoglobin 30.2, Mean Corpuscular Hemoglobin Concent 32.3, Mean Platelet Volume 8.1, Neutrophils (%) (Auto) 73.7, Lymphocytes (%) (Auto) 18.2, Monocytes (%) (Auto) 7.1, Eosinophils (%) (Auto) 0.5, Basophils (%) (Auto) 0.2, Neutrophils # (Auto) 7.11, Lymphocytes # (Auto) 1.75, Monocytes # (Auto) 0.68, Eosinophils # (Auto) 0.05, Basophils # (Auto) 0.02 10/12/17 14:11 Test 10/12/17 14:11 White Blood Count 9.64 K/uL (4.8-10.8) Red Blood Count 3.54 M/uL (4.2-5.4) Hemoglobin 10.7 g/dL (12.0-16.0) Hematocrit 33.1 % (37-47) Mean Corpuscular Volume 93.5 fL (80-100) Mean Corpuscular Hemoglobin 30.2 pg (25-34) Mean Corpuscular Hemoglobin Concent 32.3 g/dl (32-36) Platelet Count 382 K/uL (130-400) Mean Platelet Volume 8.1 fL (7.4-10.4) Neutrophils (%) (Auto) 73.7 % Lymphocytes (%) (Auto) 18.2 % Monocytes (%) (Auto) 7.1 % Eosinophils (%) (Auto) 0.5 % Basophils (%) (Auto) 0.2 % Neutrophils # (Auto) 7.11 K/uL (1.4-6.5) Lymphocytes # (Auto) 1.75 K/uL (1.2-3.4) Monocytes # (Auto) 0.68 K/uL (0.11-0.59) Eosinophils # (Auto) 0.05 K/uL (0-0.5) Basophils # (Auto) 0.02 K/uL (0-0.2) RDW Standard Deviation 49.7 fL (36.4-46.3) RDW Coefficient of Variation 14.5 % (11.5-14.5) Immature Granulocyte % (Auto) 0.3 % Immature Granulocyte # (Auto) 0.03 K/uL (0.00-0.02) Erythrocyte Sedimentation Rate 52 mm/hr (0-21) Anion Gap 10.0 mmol/L (3-11) Est Creatinine Clear Calc Drug Dose 101.7 ml/min Estimated GFR () 121.4 Estimated GFR (Non- 104.8 BUN/Creatinine Ratio 11.3 (10-20) Calcium Level 9.8 mg/dl (8.5-10.1) C-Reactive Protein 6.24 mg/dl (0-0.29) Laboratory results per my review. Medications Administered Medications (Trade) Dose Ordered Sig/Jennifer Route Start Time Stop Time Status Last Admin Dose Admin Gabapentin (Neurontin Cap) 300 mg NOW STAT PO 10/12/17 15:51 10/12/17 15:52 DC 10/12/17 16:02 300 MG Morphine Sulfate (MoRPHine SULFATE INJ) 6 mg NOW STAT IV 10/12/17 16:16 10/12/17 16:17 DC 10/12/17 16:52 6 MG ED Course ED COURSE: Vital signs were reviewed and showed tachycardia. The patients medical record was reviewed The above diagnostic studies were performed and reviewed. ED treatments and interventions as stated above. 1300: The patient was evaluated in room C6. A complete history and physical examination was performed. 1340: Dr. Ruvalcaba - [facility] is going to call me and discuss the patient's case. He saw her at 1100 this morning and did not get the chance to finish her note. 1350: I spoke with Dr. Ruvalcaba at this time. He plan was to manage her pain with Gabapentin, and he did not mention going to the ER. He believes her neurologic exam is unchanged from her prior exam. He believes she may be unhappy with his plan of action. 1535: Upon reevaluation, the patient is doing well and is much more comfortable. 1551: Ordered Gabapentin 300 mg PO 1610: She is now in more pain. I will order her more pain medicine. 1616: Ordered Morphine Sulfate 6 mg IV 1630: I spoke with Fareed Martinez PA-C of Orthopedics at this time. He will talk to Dr. Ziegler about the patient. 1655: Dr. Ziegler of Orthopedics called me at this time. He does not believe that the patient needs to be treated emergently. He recommends discharge and following up in his office in the near future. 1708: I spoke with Rocio Rivera PA-C of Orthopedics at this time. She will contact Dr. Acuna. 1720: I spoke with Dr. Acuna of Orthopedics at this time. He recommended not giving her any more pain medication. He will follow up with her in his office in the near future. He also told me that he sees her every few months. Her compression fracture is likely old as he saw in previous visits. 1729: Ordered Prednisone 60 mg PO 1735: Upon reevaluation, the patient is resting. I discussed my findings with the patient and she understands and agrees with the treatment plan. Based on the patients age, coexisting illnesses, exam and lab findings the decision to treat as an outpatient was made. The patient remained stable while under my care. The patient appeared well at the time of discharge. Medical Decision Differential diagnoses includes but is not limited to lumbar radiculopathy, muscle strain, facture, cauda equina, mass, and disc herniation. Patient is a 57-year-old female who presents to ER for back pain and right hip/ leg pain. Pain is radiating to her right gluteus down her right leg. On exam she has no focal weakness. She is able to ambulate and appears to be at her baseline. Neurologic exam is intact. Discussed with Dr. Ruvalcaba he saw her earlier in sees her on a regular basis. He notes neuro exam has been unchanged. No fevers. CBC shows no significant leukocytosis. BMP is unremarkable. Sedimentation rate and CRP are slightly elevated. CT of the lumbar spine shows compression deformity of 30% and old postop changes. Discussed with initially ELIZA SMITH as I was unable to contact Dr. Acuna. He eventually called me back. Discussed findings. He notes compression deformity is likely old as he has seen this in the office. Patient was given 2 doses of IV morphine. He recommends no additional narcotics as he will see her in the office tomorrow and she has had issues with drug dependency. Discussed with initially [facility] orthopedics as they're interventionist for Dr. Ziegler. Eventually contacted Dr. Ziegler who reviewed the images. He knows this patient well. He does not recommend any additional workup at this time with the exception of adding a sedimentation rate and CRP. I felt this was reasonable. Uncertain if this is truly an infection or postop seroma. He will see her in the office tomorrow. Updated the patient at bedside. She will use her pain medications at home. I did give her a dose of steroids as I favor she likely has a radiculopathy. I did not discharge her with steroids as she is seen spine and ortho for hip tomorrow in the office. Discussed with Pt concerning signs and symptoms to watch out for. Pt was instructed to follow up with their PCP and discussed with the patient their option to return to the ED at anytime for persistent or worsening symptoms. The appropriate anticipatory guidance and out-patient management, including indications for return to the emergency department, were explained at length to the patient and understood. Medication Reconcilliation Current Medication List: was personally reviewed by me Blood Pressure Screening Patient's blood pressure: Normal blood pressure Blood pressure disposition: Did not require urgent referral Consults Time Called: 1350 Consulting Physician: Dr. Ruvalcaba - PCP Returned Call: 1350 We discussed the patient's case. Please see the ED course for more information. Additional Consults: Time Called: 1625 Consulted Physician: Fareed Martinez - Orthopedics Returned Call: 1630 Additional Comments: We discussed the patient's case. He will call Dr. Ziegler. Time Called: 1655 Consulted Physician: Dr. Ziegler - Orthopedics Returned Call: 1655 Additional Comments: We discussed the patient's case. Please see the ED course for more information. Time Called: 1705 Consulting Physician: Rocio Rivera PA-C - Orthopedics Returned Call: 1708 Additional Comments: She will contact Dr. Acuna. Time Called: 1720 Consulting Physician: Dr. Acuna - Orthopedics Returned Call: 1720 Additional Comments: We discussed the patient's case. Please see the ED course for more information. Impression Primary Impression: Compression fracture Additional Impressions: Sciatica Right hip pain Scribe Attestation The scribe's documentation has been prepared under my direction and personally reviewed by me in its entirety. I confirm that the note above accurately reflects all work, treatment, procedures, and medical decision making performed by me. Departure Information Dispostion Home / Self-Care Referrals Jerome Murillo M.D. (PCP) Moise Acuna, Florencio Hughes, DO Forms HOME CARE DOCUMENTATION FORM, IMPORTANT VISIT INFORMATION Patient Instructions ED Sciatica, My [facility] Additional Instructions Please follow up with Dr. Ziegler and Dr. Acuna with in the next 24 hours. Any worsening of your symptoms, please return to the ED immediately. This includes any fevers greater than 100.4, worsening pain, chest pain, shortness breath, persistent nausea, vomiting, unable to eat or drink, weakness in the leg , unable to urinate, unable to move her bowels, or any other concerning signs or symptoms from your standpoint. You were given medications during this visit that will inhibit your ability to drive, operate machinery and work. Please do NOT drive, operate machinery, drink alcohol or work for the next 12hrs. You were found to have a blood pressure greater than 120 systolic over 90 diastolic. Due to the new Medicare guidelines, we are now recommending that you follow up with your primary care doctor in regards to this elevated blood pressure. CT of the right hip shows a fluid collection of 5 x 4 cm. This was reviewed by Dr. Ziegler. He will evaluate this in person tomorrow. CT of the lumbar spine based on her imaging shows a possible slightly worsening compression fracture. I did discuss this with Dr. Acuna. He believes that is likely old. He will see you in the office tomorrow. Please call both offices in the morning to set up an appointment first thing. Problem Qualifiers Additional Impressions: Sciatica Laterality: right Qualified Codes: M54.31 - Sciatica, right side
[2017-10-18] MEDS ORDERED: HYDR-5806 PO (08:34)
[2017-10-18] MEDS ORDERED: CEPH500C2 PO (08:34)
== END 2017-10-12 18:01 | disposition home or self-care (01) ==
LOC: C.EDB 12:51 → C.EDC 18:01
DX: M48.56XA Collapsed vertebra, not elsewhere classified, lumbar region, initial encounter for fracture (principal); M54.30 Sciatica, unspecified side; M25.551 Pain in right hip; K21.9 Gastro-esophageal reflux disease without esophagitis; K31.84 Gastroparesis; J44.9 Chronic obstructive pulmonary disease, unspecified; B19.20 Unspecified viral hepatitis C without hepatic coma; F31.9 Bipolar disorder, unspecified; K86.1 Other chronic pancreatitis; F41.9 Anxiety disorder, unspecified; M81.0 Age-related osteoporosis without current pathological fracture; F17.200 Nicotine dependence, unspecified, uncomplicated; Z98.1 Arthrodesis status; Z98.51 Tubal ligation status; Z98.890 Other specified postprocedural states; Z79.899 Other long term (current) drug therapy; Z88.8 Allergy status to other drugs, medicaments and biological substances; Z83.3 Family history of diabetes mellitus; Z83.79 Family history of other diseases of the digestive system; Z82.49 Family history of ischemic heart disease and other diseases of the circulatory system; Z84.1 Family history of disorders of kidney and ureter; Z80.0 Family history of malignant neoplasm of digestive organs

== ENCOUNTER → 2017-10-13 | Outpatient (CLI) | payer OTHER ==
[~2017-10-13] MED LIST changes: +CEPH500C2 PO; +GABA-113 PO; +HYDR-5806 PO
[2017-10-13 18:48] LABS: URINE APPEARANCE CLEAR (CLEAR); URINE BILIRUBIN NEG (NEG); URINE COLOR YELLOW; URINE EPITHELIAL CELL AUTO 0-5 /lpf (0-5); URINE NITRITE NEG (NEG); URINE SPECIFIC GRAVITY 1.007 (1.000-1.030); UROBILINOGEN NEG (NEG)
[2017-10-13 18:49] LABS: MANUAL MICROSCOPIC REQUIRED? NO; REVIEW REQ? NO
== END | disposition home or self-care (01) ==
LOC: C.LAB 17:39
PROVIDERS: ATTEND Orthopaedic Surgery
DX: Z01.812 Encounter for preprocedural laboratory examination (principal); L02.415 Cutaneous abscess of right lower limb

== ENCOUNTER 2017-10-16 12:42 | Inpatient (IN) | payer OTHER ==
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
[~2017-10-16] VITALS: Ht 157.5 cm; Wt 66.0 kg
[2017-10-16] VITALS (7 sets, daily range): BP systolic 100–132; BP diastolic 67–84; PULSE 70–88; TEMP 36.4–37; O2SAT 94–100; Ht 157.5 cm; Wt 66.0 kg
[~2017-10-16 12:42] MED LIST changes: +ACETAMINOPHEN 500 MG TAB PO SCH; -AMOX1TAB42 PO; -ASPI325T39 PO; -BISA10SU3 PR; -CEPH500C2 PO; -DIVA500T5 PO; -DOCU-94 PO; -EFFSR/75 PO; +FAMOTIDINE 20 MG TAB PO SCH; -FOLI1TAB7 PO; +GABAPENTIN 300 MG CAP PO SCH; -HYDR-3419 PO; -HYDR-3763 PO; +LACTATED RINGER'S 1000ML 1,000 ML IV SCH; +LACTATED RINGER'S 1000ML IV SCH; -NF656 TD; -NYST1POW7 TOP; -PANT40TA PO; -PRD/1 PO; -TOPI100T20 PO; -VENL150C56 PO; -ZOLP10TA PO; -[UNRECOGNIZED DRUG - CODE] RE
[2017-10-16] MEDS ORDERED: MIDAZOLAM HCL 1 MG/ML 2ML VIAL ONE (13:10)
[2017-10-16] MEDS ORDERED: FENTANYL CITRATE INJ 50 MCG/1 ML 2 ML VIAL ONE ×2 (13:10→17:12)
[2017-10-16] MEDS ORDERED: LIDOCAINE HCL 2% 2 ML VIAL (20MG/ML) ONE (15:18)
[2017-10-16] MEDS ORDERED: ROCURONIUM BROMIDE 10 MG/ML 5 ML VIAL IV ONE (15:18)
[2017-10-16] MEDS ORDERED: NEOSTIGMINE METHYLSULFATE 5 MG/5 ML SYR ONE (15:18)
[2017-10-16] MEDS ORDERED: ONDANSETRON INJ 2 MG/ML 2 ML VIAL ONE (15:18)
[2017-10-16] MEDS ORDERED: PROPOFOL IV EMULSION 10 MG/ML 20 ML VIAL IV ONE (15:18)
[2017-10-16] MEDS ORDERED: GLYCOPYRROLATE INJ 0.2 MG/ML VIAL ONE (15:18)
[2017-10-16] MEDS ORDERED: CEFAZOLIN SOD 1 GM VIAL ONE (15:37)
--- NOTE | 2017-10-16 16:14 | [facility] Post Operative Brief Note ---
Immediate Operative Summary Operative Date Oct 16, 2017. Pre-Operative Diagnosis Abscess of the right hip Post-Operative Diagnosis Abscess of the right hip Procedure(s) Performed Right Hip Irrigation and Debridement Surgeon Dr. Florencio Ziegler Metals Analyst Surgeon(s) Sharif Miller PA-C Estimated Blood Loss 10ml Findings as above Specimens Micro #1: Right hip-gram stain, culture and sensitivity, anaerobic, aerobic Complication(s) None Disposition Recovery Room / PACU
[2017-10-16] MEDS ORDERED: FORMOTEROL FUMA NEBULIZER SOLN 20 MCG/2 ML VIAL INH PRN (16:15)
[2017-10-16] MEDS ORDERED: POTASSIUM CHLORIDE 10 MEQ TABCR PO PRN (16:15)
[2017-10-16] MEDS ORDERED: MoRPHine SULFATE 2 MG/ML CARP IV PRN (16:15)
[2017-10-16] MEDS ORDERED: FUROSEMIDE 20 MG TAB PO PRN (16:15)
[2017-10-16] MEDS ORDERED: CYCLOBENZAPRINE HCL 10 MG TAB PO PRN (16:15)
[2017-10-16] MEDS ORDERED: CEFAZOLIN IV 2,000 MG in DEXTROSE 5% 50ML 50 ML IV SCH (16:15)
[2017-10-16] MEDS ORDERED: ALBUTEROL HFA 8 GM INHALER INH PRN (16:15)
[2017-10-16] MEDS ORDERED: HYDROmorphone INJ 1 MG/ML SYR ONE ×2 (16:22→16:47)
[2017-10-16] MEDS ORDERED: ATROPINE SULFATE 0.1 MG/ML 5ML SYR IV PRN (16:30)
[2017-10-16] MEDS ORDERED: HYDROmorphone INJ 0.5 MG/0.5 ML SYR IV PRN (16:30)
[2017-10-16] MEDS ORDERED: KETOROLAC TROMETHAMINE 30 MG/ML VIAL IV. PRN (16:30)
[2017-10-16] MEDS ORDERED: ONDANSETRON INJ 2 MG/ML 2 ML VIAL IV PRN (16:30)
[2017-10-16] MEDS ORDERED: LABETALOL HCL IV 5 MG/ML 20ML IV PRN (16:30)
--- NOTE | 2017-10-16 16:31 | OPERATIVE REPORT ---
DATE OF OPERATION: 10/16/2017 PREOPERATIVE DIAGNOSIS: Possible abscess of the right hip. POSTOPERATIVE DIAGNOSIS: Very minimal superficial abscess of the right hip. PROCEDURE: I&D of the right hip with a deep culture. SURGEON: Dr. Florencio Ziegler. TAP AND DIE MAKER TECHNICIAN: Sharif Miller PA-C, whose assistance was necessary for retraction. ANESTHESIA: General. COMPLICATIONS: None. SPECIMEN: Deep culture of the right hip directly off the femoral head. INDICATIONS: Jennifer is a 57-year-old female who underwent a right total hip arthroplasty about 6 months ago. She does have an extensive surgical history with that right hip before the hip replacement. Postoperatively, she developed a seroma that was I&D'd several weeks afterwards. Wound care was then treating her hip and the drainage had stopped. Unfortunately, some drainage returned. It was very purulent. CT scan was suggestive of possible abscess collection, but was inconclusive because of artifact. Her sed rate and CRP were elevated. Given all this, we elected to proceed with an I&D of the right hip. DESCRIPTION OF PROCEDURE: On 10/16/[address] [facility] for the above procedure. She was seen in the preoperative holding area and the operative extremity was identified and signed. She was not given a preoperative antibiotic and she was taken back to the operating room and laid on the table in supine position and put under general anesthesia. She was then put in the lateral decubitus position. The right hip was then prepped and draped in sterile fashion. Time-out was done and the patient and operative extremity was properly identified. The old incision was opened up. There was some purulent discharge directly around the opening for the incision, but did not go more than a few millimeters deep. I opened up the hip down to the fascia. The fascia was intact and I do not see any communication deeper in the hip. I did open up the fascia and go a little bit deeper to ensure there were no abscesses that were suggested from the CAT scan. I did not see any abscesses deep. I did full range of motion of the hip, I dissected a little further, but could not find any abscesses in the area. I did make it tracked all the way down to the femoral head. Because her sed rate and CRP were elevated, I wanted to make sure that there was no further infection deeper in her hip. I saw the femoral head, I moved it around, it showed no evidence of any kind of infection, I did culture the femoral head just to be sure. I then irrigated with 6 liters of normal saline solution with bacitracin. The fascia was then closed with #1 PDS suture. I dissected around a little bit further to ensure I was not missing any abscesses or any additional fluid collections, but none were seen. I felt it was safe to close the hip. The skin was closed with 2-0 Vicryl and 3-0 V-Loc suture, portia and Prevena VAC dressing. She was then extubated and taken to the postanesthesia care unit in stable condition. She tolerated the procedure well. I attest to the content of the Intraoperative Record and any orders documented therein. Any exception s are noted below.
--- NOTE | 2017-10-16 16:51 | Anesthesiology Progress Note ---
Anesthesia Post Op Note Date & Time Oct 16, 2017 at 16:50 Vital Signs Pain Intensity: 3 Vital Signs Past 12 Hours Date Time Temp Pulse Resp B/P (MAP) Pulse Ox O2 Delivery O2 Flow Rate FiO2 10/16/17 16:13 36.2 76 12 121/77 98 Oxymask 10 10/16/17 13:14 37 88 18 121/78 97 Room Air Notes Mental Status: alert / awake / arousable, participated in evaluation Pt Amnestic to Procedure: Yes Nausea / Vomiting: adequately controlled Pain: adequately controlled, improving with treatment Airway Patency, RR, SpO2: stable & adequate BP & HR: stable & adequate Hydration State: stable & adequate Anesthetic Complications: no major complications apparent
[2017-10-16] MEDS ORDERED: FENTANYL CITRATE INJ 50 MCG/1 ML 2 ML VIAL IV PRN (17:15)
[2017-10-16] MEDS ORDERED: HYDROCODONE/ACETAMI 10/325 TAB ONE (18:34)
[2017-10-16] MEDS ORDERED: IV FLUIDS COMPLETED PRN (18:45)
[2017-10-16] MEDS ORDERED: POLYETHYLENE (MIRALAX) 17 GM PACK PO PRN (19:15)
[2017-10-16] MEDS: TRANEXAMIC ACID INJ 1,000 MG in SYRINGE 0 ML IV SCH ×2 (19:35→19:36)
[2017-10-16] MEDS: POTASSIUM CHLORIDE INJ 10 MEQ in SODIUM CHLORIDE 0.9% 1000ML 1,000 ML IV SCH (19:48)
[2017-10-16] MEDS: LORAZEPAM 1 MG TAB PO PRN (19:56)
[2017-10-16] MEDS ORDERED: NURSING VERBAL MED ORDER ONE (20:15)
[2017-10-16] MEDS: GABAPENTIN 300 MG CAP PO SCH (20:52)
[2017-10-16] MEDS: LUBIPROSTONE 8 MCG CAP PO SCH (20:53)
[2017-10-16] MEDS: MONTELUKAST SOD 10 MG TAB PO SCH (20:53)
[2017-10-16] MEDS: BACLOFEN 10 MG TAB PO SCH (20:54)
[2017-10-16] MEDS: METOCLOPRAMIDE HCL 5 MG TAB PO SCH (20:55)
[2017-10-16] MEDS ORDERED: FENTANYL PATCH REMOVE & WASTE SCH (20:59)
[2017-10-16] MEDS ORDERED: SULINDAC 150 MG TAB PO SCH (21:00)
[2017-10-16] MEDS ORDERED: FENTANYL 25 MCG/HR TDSY TD SCH (21:00)
[2017-10-16] MEDS: HYDROmorphone INJ 1 MG/ML SYR IV PRN ×2 (21:02→23:40)
[2017-10-16] MEDS: KETOROLAC TROMETHAMINE 30 MG/ML VIAL IV. SCH (21:39)
[2017-10-16] MEDS: ACETAMINOPHEN IV 1,000 MG in EMPTY BAG 0 ML IV SCH (21:39)
[2017-10-16] MEDS: CEFAZOLIN IV 2,000 MG in SYRINGE 0 ML IV SCH (23:40)
[2017-10-16] MEDS: CHECK FENTANYL PATCH PLACEMENT SCH (23:41)
[2017-10-17] MEDS: ONDANSETRON 8 MG TAB PO PRN ×3 (01:21→19:20)
[2017-10-17] MEDS: HYDROmorphone INJ 1 MG/ML SYR IV PRN ×7 (01:54→23:45)
[2017-10-17] MEDS: KETOROLAC TROMETHAMINE 30 MG/ML VIAL IV. SCH ×4 (03:51→21:32)
[2017-10-17 03:55] VITALS: BP 104/66; PULSE 66; TEMP 36.6; O2SAT 98
[2017-10-17] MEDS: POTASSIUM CHLORIDE INJ 10 MEQ in SODIUM CHLORIDE 0.9% 1000ML 1,000 ML IV SCH ×2 (05:46→15:36)
[2017-10-17] MEDS: ACETAMINOPHEN IV 1,000 MG in EMPTY BAG 0 ML IV SCH ×2 (05:47→13:58)
[2017-10-17 07:30] VITALS: BP 101/65; PULSE 73; TEMP 36.7; O2SAT 96
[2017-10-17] MEDS: CHECK FENTANYL PATCH PLACEMENT SCH ×3 (08:03→23:54)
[2017-10-17] MEDS: METOCLOPRAMIDE HCL 5 MG TAB PO SCH ×4 (08:04→20:47)
[2017-10-17] MEDS: LUBIPROSTONE 8 MCG CAP PO SCH ×2 (08:06→20:46)
[2017-10-17] MEDS: ARIPIprazole TAB 15 MG TAB PO SCH (08:06)
[2017-10-17] MEDS: CALCIUM 600MG + VIT D 400 IU TAB PO SCH (08:07)
[2017-10-17] MEDS: ASPIRIN 325 MG ECTAB PO SCH (08:08)
[2017-10-17] MEDS: FERROUS SULFATE 325 MG TAB PO SCH (08:08)
[2017-10-17] MEDS: BACLOFEN 10 MG TAB PO SCH ×3 (08:09→20:46)
[2017-10-17] MEDS: GABAPENTIN 300 MG CAP PO SCH ×3 (08:10→20:46)
[2017-10-17] MEDS: CEROVITE ADV FORMULA TAB PO SCH (08:10)
[2017-10-17] MEDS: MULTIVITAMIN TAB PO SCH (08:10)
[2017-10-17] MEDS: FAMOTIDINE 20 MG TAB PO SCH (08:11)
[2017-10-17] MEDS: CETIRIZINE HCL 10 MG TAB PO SCH (08:12)
[2017-10-17] MEDS: METOPROLOL SUCC 25MG EXT REL TAB PO SCH (08:12)
[2017-10-17] MEDS: CEFAZOLIN IV 2,000 MG in SYRINGE 0 ML IV SCH ×3 (08:21→23:45)
[2017-10-17 11:19] VITALS: BP 108/71; PULSE 77; TEMP 36.7; O2SAT 97
--- NOTE | 2017-10-17 13:01 | PROGRESS NOTE ---
DATE: 10/17/2017 DATE: 10/17/2017 CHIEF COMPLAINT: Status post I&D of the right hip postoperative day #1. PROGRESS: Jennifer was seen and examined at bedside today. She said she was having a lot of pain in her hip, but that has been a constant for years. She was up and ambulating already today with physical therapy. She has gotten her antibiotics. She has taken Dilaudid for the pain, as well as the fentanyl patch and hydrocodone. PHYSICAL EXAMINATION: RIGHT HIP: The Prevena VAC dressing is to suction and in place. Her leg lengths were equal. Gram stain was negative, no organisms seen and preliminary blood cultures are no growth to date. IMPRESSION: Status post incision and drainage of the right hip postoperative day 1. PLAN: It was really more of small superficial abscess. It was very small. I did go deep with the hip, given her long history and swabbed the femoral head. So far those cultures are negative. Nothing around the hip aside from the small incisional area appear to be infected. I think she is safe to be discharged on oral antibiotics until we get final cultures. She is already up and ambulating well with physical therapy. I wanted to see if she could go home today but she says she does not feel comfortable going home yet and she would feel better leaving tomorrow. I think that is reasonable. I am going to change her observation status to admission and will likely send her home tomorrow with oral antibiotics.
[2017-10-17 15:01] VITALS: BP 109/74; PULSE 74; TEMP 36.3; O2SAT 98
[2017-10-17] MEDS: HYDROCODONE/ACETAMI 10/325 TAB PO PRN (18:58)
[2017-10-17] MEDS: MONTELUKAST SOD 10 MG TAB PO SCH (20:46)
[2017-10-17] MEDS: LORAZEPAM 1 MG TAB PO PRN (21:32)
[2017-10-17 23:30] VITALS: BP 107/68; PULSE 79; TEMP 36.4; O2SAT 98
[2017-10-18] MEDS: POTASSIUM CHLORIDE INJ 10 MEQ in SODIUM CHLORIDE 0.9% 1000ML 1,000 ML IV SCH ×2 (01:56→11:42)
[2017-10-18] MEDS: HYDROmorphone INJ 1 MG/ML SYR IV PRN ×3 (02:13→08:20)
[2017-10-18] MEDS: KETOROLAC TROMETHAMINE 30 MG/ML VIAL IV. SCH ×2 (03:28→10:41)
[2017-10-18] MEDS: HYDROCODONE/ACETAMI 10/325 TAB PO PRN (06:34)
[2017-10-18 07:37] VITALS: BP 177/76; PULSE 81; TEMP 36.7; O2SAT 96
[2017-10-18] MEDS: CHECK FENTANYL PATCH PLACEMENT SCH (08:09)
[2017-10-18] MEDS: METOCLOPRAMIDE HCL 5 MG TAB PO SCH ×2 (08:10→12:12)
[2017-10-18] MEDS: LUBIPROSTONE 8 MCG CAP PO SCH (08:22)
[2017-10-18] MEDS: ARIPIprazole TAB 15 MG TAB PO SCH (08:22)
[2017-10-18] MEDS: FERROUS SULFATE 325 MG TAB PO SCH (08:27)
[2017-10-18] MEDS: CALCIUM 600MG + VIT D 400 IU TAB PO SCH (08:27)
[2017-10-18] MEDS: ASPIRIN 325 MG ECTAB PO SCH (08:27)
[2017-10-18] MEDS: BACLOFEN 10 MG TAB PO SCH (08:31)
[2017-10-18] MEDS: GABAPENTIN 300 MG CAP PO SCH (08:31)
[2017-10-18] MEDS: CEROVITE ADV FORMULA TAB PO SCH (08:31)
[2017-10-18] MEDS: MULTIVITAMIN TAB PO SCH (08:31)
[2017-10-18] MEDS: FAMOTIDINE 20 MG TAB PO SCH (08:31)
[2017-10-18] MEDS: METOPROLOL SUCC 25MG EXT REL TAB PO SCH (08:32)
[2017-10-18] MEDS: CETIRIZINE HCL 10 MG TAB PO SCH (08:32)
[2017-10-18 08:34] VITALS: BP 126/85; PULSE 92
[2017-10-18] MEDS ORDERED: HYDR-5806 PO (08:34)
[2017-10-18] MEDS ORDERED: CEPH500C2 PO (08:34)
--- NOTE | 2017-10-18 08:36 | Discharge Instructions ---
Discharge Instructions Date of Service Oct 18, 2017. Admission Reason for Admission: Abscess Of Hip Discharge Discharge Diagnosis / Problem: Revision wound Right Hip Discharge Goals Goal(s): Decrease discomfort, Improve function Activity Recommendations Activity Limitations: as noted below . Instructions / Follow-Up Instructions / Follow-Up leave VAC sponge in place until follow-up appointment. Follow up in 1 week on Thursday. Current Hospital Diet Patient's current hospital diet: Regular Diet Discharge Diet Recommended Diet: Regular Diet Procedures Procedures Performed: Right Hip Irrigation and Debridement Pending Studies Studies pending at discharge: no Medical Emergencies . Who to Call and When: Medical Emergencies: If at any time you feel your situation is an emergency, please call 911 immediately. . Non-Emergent Contact Non-Emergency issues call your: Surgeon Call Non-Emergent contact if: wound has increased drainage, wound has increased redness . "Provider Documentation" section prepared by Florencio Ziegler. . VTE Core Measure Inpt VTE Proph given/why not?: Treatment not indicated
--- NOTE | 2017-10-18 10:29 | PROGRESS NOTE ---
DATE: 10/18/2017 CHIEF COMPLAINT: Status post I&D, superficial wound of the right hip. PROGRESS: Jennifer was seen and examined at bedside today. She is still having some soreness in her hip. She is sitting up at bedside. She is ambulating okay with a walker and some with the cane. She says most of her pain is down near her knee. She thinks this is coming from her back. She is very concerned that she is not on enough pain medications and that she does not have enough medications at home. PHYSICAL EXAMINATION: Prevena VAC dressing is to suction and in place. She appears to be sitting comfortably in a chair at bedside. Her leg lengths are equal. She is neurovascularly intact. LABORATORY DATA: Micro: The Gram stain is negative and initial cultures showed no growth to date. IMPRESSION: Status post incision and drainage superficial wound of the right hip. PLAN: I think the Prevena VAC incisional dressing is going to help her with close up her incision. I did not see any significant abscess on surgical exploration. I did swab right on the femoral head, but it did not appear to be infected. She is afebrile and she does not have a white count. I think she is safe to be discharged to home on oral antibiotics at this point. We will wait to see what the cultures grow from the femoral head. She says that she is out of pain medicines at home, but she does get pain medications from Dr. Murillo including a fentanyl and 10 mg of Castile. She says she has a script from Dr. Murillo that she can get it filled later on Thursday, but is very concerned that she will not have enough Castile for the rest of the day today or tomorrow. I gave her 14 Castile to hold her over until she can get that script filled. I also send her home on oral Keflex to take 4 times a day for a week. I will see her back in the office in a week to take off the Prevena VAC dressing. She is stable for discharge later today.
[2017-10-18 10:54] VITALS: BP 126/85; PULSE 92; TEMP 36.7; O2SAT 96
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
[2017-10-18] MEDS ORDERED: SULINDAC 150 MG TAB PO SCH (21:00)
--- NOTE | 2017-10-20 09:11 | EDITING REQUIRED CODING QUERY ---
DEBRIDEMENT DOCUMENTATION To promote full compliance with coding requirements relating to patient care, physician participation is requested in all cases of instructional designer uncertainty. Please assist us with the question(s) below: Please place an X in the parenthesis (x). If other, please document the finding: Type of Debridement: (X ) Excisional Debridement- Cutting away necrotic, devitalized tissue or slough to the level of viable tissue using a sharp instrument (i.e. scalpel, scissors, etc.) ( ) Non Excisional Debridement- The removal of necrotic, devitalized tissue or slough by means of scraping, mechanical brushing, flushing, or washing (i.e. irrigation,whirlpool);minor removal of loose fragments. ( ) Other (please specify): Instrument Used: ( ) Scissors (X ) Scalpel ( ) Curette ( ) Other (please specify): Depth of Debridement: ( ) Skin ( ) Skin and Subcutaneous Tissue ( ) Skin, Subcutaneous Tissue and Muscle (X ) Skin, Subcutaneous Tissue, Muscle and Bone ( ) Other (please specify): Please Specify the Size of Debridement in cm2: 4cm2 Thank you Marcia Parson
--- NOTE | 2017-10-20 09:14 | EDITING REQUIRED CODING QUERY ---
CODING QUERY To promote full compliance with coding requirements relating to patient care, provider participation is requested in all cases of air vice marshal uncertainty. Please assist us with the question(s) below: Coding Question(s): Please clarify below, in your clinical opinion, regarding the small incisional abscess of the right hip. ( X ) This is a postoperative complication ( ) This is not a postoperative complication Physician's Response(s): Thank you Marcia Parson Principal Diagnosis: "_that condition established after study, to be chiefly responsible for occasioning the admission of the patient to the hospital for care." Co-Existing Principal Diagnosis: "_when two or more diagnoses equally meet the criteria for principal diagnosis as determined by the circumstances of admission, diagnostic work up, and/or therapy provided, and the Alphabetic Index, Tabular List, or another coding guideline does not provide sequencing direction, any one of the diagnoses may be sequenced first." "When the physician has documented what appears to be a current diagnosis in the body of the record, but has not included the diagnosis in the final diagnostic statement, the physician should be asked whether the diagnosis should be added." (Source [facility] 2 QTR90. p3-4)
== END 2017-10-18 13:19 | disposition home or self-care (01) | DRG 857 ==
LOC: C.ACU 12:42 → C.3E 16:19 → ENRESERV 16:47 → OBSVTOIN 10-17 12:32
PROVIDERS: ADMIT Orthopaedic Surgery; ATTEND Orthopaedic Surgery
PROC: 0QB60ZX Excision of Right Upper Femur, Open Approach, Diagnostic (ICD-10-PCS; principal; 2017-10-16 07:30)
DX: T81.4XXA Infection following a procedure, initial encounter (principal); L02.415 Cutaneous abscess of right lower limb; Z96.641 Presence of right artificial hip joint; F31.9 Bipolar disorder, unspecified; F41.9 Anxiety disorder, unspecified; G89.29 Other chronic pain; J44.9 Chronic obstructive pulmonary disease, unspecified; F10.21 Alcohol dependence, in remission; Z79.899 Other long term (current) drug therapy; Z79.891 Long term (current) use of opiate analgesic; Z98.1 Arthrodesis status; Z98.890 Other specified postprocedural states; Y83.1 Surgical operation with implant of artificial internal device as the cause of abnormal reaction of the patient, or of later complication, without mention of misadventure at the time of the procedure

== ENCOUNTER → 2017-10-30 | Outpatient (CLI) | payer OTHER ==
[~2017-10-30] MED LIST changes: -ACETAMINOPHEN 500 MG TAB PO SCH; +CARB1CAP2 PO; +CEPH500C2 PO; +CIPR1TAB10 PO; -FAMOTIDINE 20 MG TAB PO SCH; -GABAPENTIN 300 MG CAP PO SCH; +GADAVIST IV PRN; -LACTATED RINGER'S 1000ML 1,000 ML IV SCH; -LACTATED RINGER'S 1000ML IV SCH; +LAMO150T PO; -LAMO150T32 PO; -MIRA1TAB3 PO
--- NOTE | 2017-10-30 12:11 | DIAGNOSTIC IMAGING REPORT ---
LUMBAR SPINE COMBINATION HISTORY: RADICULOPATHY TECHNIQUE: Multiplanar multisequence MRI of the lumbar spine was performed both before and after the intravenous administration of contrast. COMPARISON: None. FINDINGS: For the purpose of the report the L5-S1 disc space will be located on axial image 33 of 36. Limited study technically due to considerable metallic susceptibility artifact. This particular tear at L5-S1 and L1-L2. T12-L1. Considerable magnetic artifact. It is not appear to be a major, mild spinal canal based on the transaxial images. L1-L2: Posterior bulging disc. Mild impact anterior aspect canal difficult to ascertain given the artifact present. Neuroforamina appear bilaterally. L2-L3: No major compromise of the spinal canal or neural foramina. L3-L4: Mild broad-based disc bulge. Mild hypertrophic change posterior elements. L4-L5: No major compromise of spinal canal. L5-S1: Minimal grade 1 anterolisthesis L5 on S1. Broad-based bulging disc with minimal impact anterior aspect of the thecal sac. Neural foramina are difficult to evaluate. IMPRESSION: 1. Very limited study due to considerable magnetic susceptibility artifact due to an extensive laminectomy and fusion throughout the entire lumbar region. 2. Several mild disc bulges felt to be most prominent at L5-S1. 3. No major compromise of the spinal canal throughout the remainder of the lumbar region. The above report was generated using voice recognition software. It may contain grammatical, syntax or spelling errors. Electronically signed by: Jerome Daugherty M.D. 10/30/2017 12:10 PM Dictated Date/Time: 10/30/2017 12:02 PM
== END | disposition home or self-care (01) ==
LOC: C.MRI 10:03
PROVIDERS: ATTEND Physical Medicine & Rehabilitation
DX: M54.17 Radiculopathy, lumbosacral region (principal); M96.1 Postlaminectomy syndrome, not elsewhere classified

== ENCOUNTER 2017-10-31 18:59 | Inpatient (IN) | payer OTHER ==
[~2017-10-31] VITALS: Ht 157.5 cm; Wt 69.2 kg
[~2017-10-31 18:59] MED LIST changes: -CARB1CAP2 PO; -CEPH500C2 PO; -CIPR1TAB10 PO; -GADAVIST IV PRN
[2017-10-31] MEDS ORDERED: CIPR1TAB10 PO (19:19)
[2017-10-31] MEDS ORDERED: CARB1CAP2 PO (19:19)
[2017-10-31] MEDS ORDERED: CEPH500C2 PO (19:19)
[2017-10-31] MEDS ORDERED: VANCOMYCIN INJ 1,300 MG in SODIUM CHLORIDE 0.9% 500ML 500 ML IV STA (19:51)
[2017-10-31] MEDS ORDERED: CEFTRIAXONE SOD INJ 1 GM ADDVIAL IV STA (19:51)
[2017-10-31 22:27] LABS: BASO % 0.2 %; BASO ABS # 0.02 K/uL (0-0.2); HEMATOCRIT 27.4 % (37-47); HEMOGLOBIN 8.6 g/dL (12.0-16.0); IG# 0.11 K/uL (0.00-0.02); LYMPH % 24.4 %; LYMPH ABS # 2.53 K/uL (1.2-3.4); MEAN CELL VOLUME 89.8 fL (80-100); MEAN CORPUSCULAR HEMOGLOBIN 28.2 pg (25-34); MEAN CORPUSCULAR HGB CONC 31.4 g/dl (32-36); MEAN PLATELET VOLUME 9.6 fL (7.4-10.4); MONO % 10.1 %; MONO ABS # 1.05 K/uL (0.11-0.59); NEUT % 63.2 %; NEUT ABS # 6.58 K/uL (1.4-6.5); PLATELET COUNT 507 K/uL (130-400); RED CELL DISTRIBUTION WIDTH CV 14.5 % (11.5-14.5); RED CELL DISTRIBUTION WIDTH SD 48.3 fL (36.4-46.3); WHITE BLOOD COUNT 10.39 K/uL (4.8-10.8)
[2017-10-31] MEDS ORDERED: ENOXAPARIN 40 MG/0.4 ML SYR SQ SCH (22:30)
[2017-10-31] MEDS ORDERED: CEFEPIME IV 2,000 MG in DEXTROSE 5% 100ML 100 ML IV ONE (22:30)
[2017-10-31] MEDS ORDERED: POLYETHYLENE (MIRALAX) 17 GM PACK PO PRN (22:30)
[2017-10-31] MEDS ORDERED: FENTANYL 25 MCG/HR TDSY TD SCH (22:30)
--- NOTE | 2017-10-31 22:30 | DIAGNOSTIC IMAGING REPORT ---
RIGHT HIP ULTRASOUND CLINICAL HISTORY: r hip infection. Right hip swelling and pain. COMPARISON STUDY: Right hip CT 10/05/1717. FINDINGS: Within the right lateral hip/proximal thigh there is a 12.7 x 5.9 x 3.4 cm multiseptated complex subcutaneous fluid collection. There is increased surrounding vascularity and increased echogenicity within the surrounding fat consistent with a cellulitis. This appears to extend to the skin surface through the presumed incision site. IMPRESSION: Within the right lateral hip/proximal thigh there is a 12.7 x 5.9 x 3.4 cm multiseptated complex subcutaneous fluid collection. This appears to be deep to the incision site and favors an abscess. A hematoma or postoperative seroma could also have a similar appearance. Electronically signed by: Ricardo Anthony M.D. 10/31/2017 10:29 PM Dictated Date/Time: 10/31/2017 10:26 PM
[2017-10-31] MEDS ORDERED: LORAZEPAM 1 MG TAB PO STA (22:44)
--- NOTE | 2017-10-31 22:47 | EMERGENCY ROOM VISIT NOTE ---
History Report prepared by Tonya: Ralph Delgado Under the Supervision of: Alejandro CaballeroO. First contact with patient: 19:24 Chief Complaint: HIP PAIN Stated Complaint: INFLAMED R HIP INCISION,R LEG/FOOT,L LEG History of Present Illness The patient is a 57 year old female who presents to the Emergency Room with complaints of worsening right hip pain for the past two weeks. The patient states that she had surgery on her hip done on October 16. She notes that since then she has had redness, though it has gotten worse. She notes that she was seen on October 26 by her surgeon, and they removed her portia and put her on a second round of Keflex. Additionally, today she called her surgeon, and they put her on Cipro. The patient states that she had an ultrasound for her swelling four days ago, and they notes that she had some fluid collection. The patient states that her leg and foot are swollen, and she has been having some discharge from the incision site. She also notes that she is having some chills. She denies any history of diabetes, hypertension, and high cholesterol. Pt denies cough, runny nose, headache, change in vision, fevers, chest pain, shortness of breath, nausea, vomiting, diarrhea, pain with urination, and melena. Source of History: patient Onset: two weeks Position: other (right hip) Quality: other (redness and swelling) Timing: worsening Associated Symptoms: + fevers Note: Associated symptoms: Discharge, right leg and foot swelling Review of Systems See HPI for pertinent positives & negatives. A total of 10 systems reviewed and were otherwise negative. Past Medical & Surgical Medical Problems: (1) Abscess of right hip (2) Anxiety (3) Bipolar disorder (4) Bipolar Disorder, Unspecified (5) Cervicalgia (6) Chronic alcoholism in remission (7) Chronic back pain (8) Chronic headache (9) Chronic hepatitis C (10) Chronic obstructive lung disease (11) Chronic urinary urge incontinence (12) Closed head injury (13) Depression (14) Gastroesophageal reflux disease (15) Gastroparesis (16) History of aspiration pneumonia (17) History of Clostridium difficile colitis (18) History of drug abuse (19) History of sepsis (20) History of supraventricular tachycardia (21) Incisional abscess (22) Lumbago (23) Osteoarthritis (24) Osteoarthritis of hip (25) Osteoporosis (26) Pancreatitis (27) PTSD (post-traumatic stress disorder) (28) seroma Right hip (29) SVT (supraventricular tachycardia) (30) Ulnar neuropathy Surgical Problems: (1) Bladder Repair (2) H/O colonoscopy (3) H/O cystoscopy (4) H/O esophagogastroduodenoscopy (5) H/O sinus surgery (6) History of hip surgery (7) Right Tibia/Fibula Repair (8) S/P cervical spinal fusion (9) s/p colonoscopy (10) s/p cystoscopy (11) s/p EGD (12) S/p esophagogastric fundoplasty (13) s/p laparoscopic fundoplication hiatal hernia (14) S/p lumbar decompression/fusion (15) S/P ORIF (open reduction internal fixation) fracture (16) s/p reconstruction hip socket (17) s/p tonsillectomy (18) S/P tonsillectomy and adenoidectomy (19) s/p tubal ligation (20) S/P tubal ligation Family History Diabetes mellitus FATHER GRANDMOTHER FH: colon cancer GRANDMOTHER Gallbladder disease Heart disease Hypertension FATHER MOTHER Kidney disease Kidney stones Social History Smoking Status: Current Some Day Smoker Alcohol Use: none Drug Use: other Marital Status: Housing Status: lives with family Occupation Status: disabled Current/Historical Medications Scheduled Aripiprazole (Abilify), 30 MG PO QAM Baclofen (Lioresal), 10 MG PO TID Buspirone Hcl (Buspirone Hcl), 20 MG PO BID Calcium Carbonate-Vitamin D (Oscal 500/200 D-3), 1 TAB PO DAILY Carbamazepine (Carbatrol Er), 100 MG PO BID Cephalexin Monohydrate (Keflex), 500 MG PO QID Cetirizine (Zyrtec), 10 MG PO QAM Ciprofloxacin Hcl (Cipro), 500 MG PO BID Famotidine (Pepcid), 40 MG PO DAILY Fentanyl (Duragesic), 25 MCG TD Q72H Ferrous Sulfate (Ferrous Sulfate), 325 MG PO QAM Gabapentin (Neurontin), 300 MG PO TID Lamotrigine (Lamictal), 150 MG PO BID Lubiprostone (Amitiza), 24 MCG PO BID Metoclopramide Hcl (Reglan), 5 MG PO ACHS Metoprolol Succinate (Toprol Xl), 25 MG PO QAM Montelukast Sodium (Singulair), 10 MG PO HS Multivitamin (Multivitamin), 1 TAB PO QAM Ocuvite Preservision (Ocuvite Preservision), 1 TAB PO DAILY Sulindac (Sulindac), 150 MG PO BID Scheduled PRN Albuterol (Ventolin Hfa), 90 MCG INH for Wheezing Cyclobenzaprine Hcl (Flexeril), 10 MG PO TID PRN for Muscle Spasms Formoterol Fumarate (Perforomist), 20 MCG INH for Wheezing Furosemide (Lasix), 20 MG PO DAILY PRN for SWELLING Hydrocodone-Acetaminophen (Hydrocodone Bitartrate/AC 10-325 mg), 1 TAB PO BID PRN for Pain Lorazepam (Lorazepam), 1 MG PO BID PRN for Anxiety Ondansetron Hcl (Zofran), 8 MG PO Q6H PRN for Nausea Polyethylene Glycol 3350 (Miralax), 17 GM PO DAILY PRN for PRN Potassium Chloride (Micro-K Ext Rel), 10 MEQ PO DAILY PRN for PRN Allergies Coded Allergies: Hydroxyzine (Verified Allergy, Severe, THROAT CONSTRICTS/CAN NOT VOID, ) Clarithromycin (Verified Adverse Reaction, Intermediate, vomiting, ) Lisinopril (Verified Adverse Reaction, Mild, Cough, 10/31/17) Reported by PT. Chlorpromazine (Verified Adverse Reaction, Unknown, LIGHTHEADED DIZZY, ) Physical Exam Vital Signs Date Time Temp Pulse Resp B/P (MAP) Pulse Ox O2 Delivery O2 Flow Rate FiO2 10/31/17 21:51 84 18 130/78 96 Room Air 10/31/17 19:01 36.7 97 18 150/84 96 Room Air Physical Exam GENERAL: Sitting up in bed, disheveled, no acute distress, non-toxic. EYE EXAM: normal conjunctiva. OROPHARYNX: no exudate, no erythema, lips, buccal mucosa, and tongue normal and mucous membranes are moist NECK: supple, no nuchal rigidity, no adenopathy, non-tender LUNGS: Clear to auscultation. Normal chest wall mechanics HEART: no murmurs, S1 normal and S2 normal ABDOMEN: abdomen soft, non-tender, normo-active bowel sounds, no masses, no rebound or guarding. BACK: Back is symmetrical on inspection and there is no deformity, no midline tenderness, no CVA tenderness. SKIN: no rashes and no bruising UPPER EXTREMITIES: upper extremities are grossly normal. LOWER EXTREMITIES: Right hip has extensive erythema and induration over the old incision with mild green purulent discharge. The extremity is swollen and erythematous down around the de león. NEURO EXAM: Normal sensorium, cranial nerves II-XII grossly intact, normal speech, no gross weakness of arms, no gross weakness of legs. Gross sensation intact. Medical Decision & Procedures ER Provider Diagnostic Interpretation: Radiology results as stated below per my review and the radiologist's interpretation: RIGHT HIP ULTRASOUND CLINICAL HISTORY: r hip infection. Right hip swelling and pain. COMPARISON STUDY: Right hip CT 10/05/1717. FINDINGS: Within the right lateral hip/proximal thigh there is a 12.7 x 5.9 x 3.4 cm multiseptated complex subcutaneous fluid collection. There is increased surrounding vascularity and increased echogenicity within the surrounding fat consistent with a cellulitis. This appears to extend to the skin surface through the presumed incision site. IMPRESSION: Within the right lateral hip/proximal thigh there is a 12.7 x 5.9 x 3.4 cm multiseptated complex subcutaneous fluid collection. This appears to be deep to the incision site and favors an abscess. A hematoma or postoperative seroma could also have a similar appearance. Electronically signed by: Ricardo Anthony M.D. 10/31/2017 10:29 PM Dictated Date/Time: 10/31/2017 10:26 PM Laboratory Results 10/31/17 21:53 Red Blood Count 3.05, Mean Corpuscular Volume 89.8, Mean Corpuscular Hemoglobin 28.2, Mean Corpuscular Hemoglobin Concent 31.4, Mean Platelet Volume 9.6, Neutrophils (%) (Auto) 63.2, Lymphocytes (%) (Auto) 24.4, Monocytes (%) (Auto) 10.1, Eosinophils (%) (Auto) 1.0, Basophils (%) (Auto) 0.2, Neutrophils # (Auto ) 6.58, Lymphocytes # (Auto) 2.53, Monocytes # (Auto) 1.05, Eosinophils # (Auto ) 0.10, Basophils # (Auto) 0.02 Test 10/31/17 21:53 White Blood Count 10.39 K/uL (4.8-10.8) Red Blood Count 3.05 M/uL (4.2-5.4) Hemoglobin 8.6 g/dL (12.0-16.0) Hematocrit 27.4 % (37-47) Mean Corpuscular Volume 89.8 fL (80-100) Mean Corpuscular Hemoglobin 28.2 pg (25-34) Mean Corpuscular Hemoglobin Concent 31.4 g/dl (32-36) Platelet Count 507 K/uL (130-400) Mean Platelet Volume 9.6 fL (7.4-10.4) Neutrophils (%) (Auto) 63.2 % Lymphocytes (%) (Auto) 24.4 % Monocytes (%) (Auto) 10.1 % Eosinophils (%) (Auto) 1.0 % Basophils (%) (Auto) 0.2 % Neutrophils # (Auto) 6.58 K/uL (1.4-6.5) Lymphocytes # (Auto) 2.53 K/uL (1.2-3.4) Monocytes # (Auto) 1.05 K/uL (0.11-0.59) Eosinophils # (Auto) 0.10 K/uL (0-0.5) Basophils # (Auto) 0.02 K/uL (0-0.2) RDW Standard Deviation 48.3 fL (36.4-46.3) RDW Coefficient of Variation 14.5 % (11.5-14.5) Immature Granulocyte % (Auto) 1.1 % Immature Granulocyte # (Auto) 0.11 K/uL (0.00-0.02) Erythrocyte Sedimentation Rate 66 mm/hr (0-21) Laboratory results per my review. Medications Administered Medications (Trade) Dose Ordered Sig/Jennifer Route Start Time Stop Time Status Last Admin Dose Admin Vancomycin HCl 1300 mg/Sodium Chloride 526 ml @ 200 mls/hr ONE STAT IV 10/31/17 19:51 10/31/17 22:28 DC 10/31/17 22:11 200 MLS/HR Ceftriaxone Sodium (Rocephin Inj) 1 gm NOW STAT IV 10/31/17 19:51 10/31/17 19:53 DC 10/31/17 21:51 1 GM ED Course ED COURSE: Vital signs were reviewed and showed hypertension and tachycardia The patients medical record was reviewed The above diagnostic studies were performed and reviewed. ED treatments and interventions as stated above. 1923: The patient was evaluated in room A10. A complete history and physical examination was performed. 1950: Rocephin 1gm IV, Vancomycin HCl 1300mg/ Sodium Chloride 526ml @ 200mls.hr IV 2109: I discussed the patient's case with Dr. Acuna - Orthopedics, and he will see her in the morning, and she should be evaluated by the hospitalist. 2112: I reviewed the patient's case with Dr. Rafael Guillen. He will evaluate the patient for further management. 2152: Upon reevaluation, the patient is doing well.I discussed my findings with the patient and she understands and agrees with the treatment plan. Based on the patients age, coexisting illnesses, exam and lab findings the decision to treat as an inpatient was made. The patient remained stable while under my care. The patient will be evaluated for further management. Medical Decision Differential diagnosis includes etiologies such as cellulitis, abscess, MRSA infection, DVT, necrotizing fasciitis, dermatitis, drug eruption, as well as others were entertained. Patient is a 57-year-old female who presents to ER for right hip pain and worsening redness. Patient has been on outpatient antibiotics. She had a revision of her right hip October 16. She has had increased swelling and redness which is worsening over the past 2 weeks. No fevers. She currently has a purulent drainage. On bedside ultrasound which is focused shows large fluid collection with multiple loculations. There is also cobblestoning confirm the cellulitis and abscess. IV was obtained. Sedimentation rate was elevated. Hemoglobin has tried it down. Patient was given IV vancomycin and Rocephin. Discussed with orthopedics and patient was admitted to internal medicine for infected right hip. BMP all LFTs was not resulted prior to admission. Medication Reconcilliation Current Medication List: was personally reviewed by me Blood Pressure Screening Patient's blood pressure: Elevated blood pressure Monitored by the hospitalist Consults Time Called: 2110 Consulting Physician: Dr. Rafael Guillen Returned Call: 2112 I reviewed the patient's case with Dr. Rafael Guillen. He will evaluate the patient for further management. Additional Consults: Time Called: 2105 Consulted Physician: Dr. Kalp[facility] Returned Call: 2109 Additional Comments: I discussed the patient's case with Dr. Kalpana S[facility], and he will see her in the morning, and she should be evaluated by the hospitalist. Impression Primary Impression: Postoperative wound infection of right hip Additional Impression: Anemia Scribe Attestation The scribe's documentation has been prepared under my direction and personally reviewed by me in its entirety. I confirm that the note above accurately reflects all work, treatment, procedures, and medical decision making performed by me. Departure Information Dispostion Being Evaluated By Hospitalist Jerome Galeas M.D. (PCP) Patient Instructions My [facility] Problem Qualifiers Primary Impression: Postoperative wound infection of right hip Encounter type: initial encounter Qualified Codes: T81.4XXA - Infection following a procedure, initial encounter Additional Impression: Anemia Anemia type: unspecified type Qualified Codes: D64.9 - Anemia, unspecified
[2017-10-31 22:54] LABS: ALBUMIN 2.7 gm/dl (3.4-5.0); ALKALINE PHOSPHATASE 74 U/L (45-117); ALT/SGPT 11 U/L (12-78); BLOOD UREA NITROGEN 10 mg/dl (7-18); CALCIUM 8.7 mg/dl (8.5-10.1); CARBON DIOXIDE 24 mmol/L (21-32); CREATININE 0.54 mg/dl (0.60-1.20); GLUCOSE 88 mg/dl (70-99); SODIUM 140 mmol/L (136-145); TOTAL PROTEIN 7.5 gm/dl (6.4-8.2)
[2017-10-31] MEDS ORDERED: HYDROmorphone INJ 0.5 MG/0.5 ML SYR IV PRN ×2 (23:00→23:45)
[2017-10-31] MEDS ORDERED: GABAPENTIN 300 MG CAP PO STA (23:13)
[2017-10-31] MEDS ORDERED: HYDROCODONE/ACETAMI 10/325 TAB PO STA (23:14)
[2017-10-31 23:30] VITALS: BP 155/93; PULSE 87; TEMP 36.5; O2SAT 96
[2017-10-31] MEDS ORDERED: SODIUM CHLORIDE 0.9% 1000ML 1,000 ML IV SCH (23:59)
[2017-11-01] MEDS: CHECK FENTANYL PATCH PLACEMENT SCH ×3 (00:20→16:01)
[2017-11-01] MEDS ORDERED: ZOLPIDEM TARTRATE 5 MG TAB PO ONE (00:35)
[2017-11-01 00:46] LABS: POTASSIUM 3.4 mmol/L (3.5-5.1)
--- NOTE | 2017-11-01 00:53 | HISTORY & PHYSICAL EXAMINATION ---
DATE OF ADMISSION: 10/31/2017 PRIMARY CARE PHYSICIAN: Jerome Murillo MD CHIEF COMPLAINT: Right hip pain, drainage, swelling. HISTORY OF PRESENT ILLNESS: History obtained from patient and records. Medical history significant for PSVT sp ablation, COPD, ongoing tobacco abuse, gastroparesis, anxiety/mood disorder, chronic pain on Fentanyl patch, chronic HCV status post treatment, history of MRSA, history of C. dif, past alcohol abuse. Recent confinement under orthopedic service about 2 weeks ago for a right hip abscess. Debridement done on the abscess in the OR. CS grew Corynebacterium. Patient discharged on Keflex. Patient compliant with medications. Patient noted increasing achy right hip pain and swelling post discharge. [facility] removed on follow-up with surgeon last week. Yesterday, the patient noted R hip wound dehiscence with purulent bloody drainage, some chills, no fever, increasing pain. Right hip and thigh swelling noted to be progressing down the R lower leg. On-call web analytics specialist prescribed Cipro. Loose stools noted after first dose of Cipro. No abdominal pain. No unusual chest pain or shortness breath. Patient brought to Emergency Room for worsening symptoms. Right hip ultrasound right lateral proximal thigh, complex subcutaneous fluid collection on the right lateral hip and proximal thigh (abscess versus hematoma ). Px received vancomycin and ceftriaxone. MEDICAL HISTORY: As above. SURGERIES: She has had tubal ligation, tonsillectomy, fundoplasty, sinus surgery, bowel surgery, hip surgery HOME MEDICATIONS: Include Pepcid, Duragesic patch, Neurontin, lorazepam, Amitiza, Lamictal, Reglan, Toprol XL, multivitamins, Zofran, Ocuvite, MiraLax, microK, sulindac, Abilify, Ventolin, buspirone, Os-Emile, Carbatrol, Cipro, Zyrtec, ferrous sulfate, Lasix. ALLERGIES: CHLORPROMAZINE, HYDROXYZINE, ERYTHROMYCIN, LISINOPRIL. FAMILY HISTORY: Hypertension and heart disease. PERSONAL AND SOCIAL HISTORY: About two cigarettes a day. Past alcohol abuse. Disabled. REVIEW OF SYSTEMS: As per HPI, all 10 systems were reviewed, all other ROS negative. PHYSICAL EXAMINATION: VITAL SIGNS: Blood pressure was noted to be 110/70, pulse rate 90, RR 18, temperature 36.7, sats 96 on room air. GENERAL: Noted to be slightly uncomfortable, no respiratory distress. SKIN: Pallor and warm. HEENT: Pale palpebral conjunctivae. No ptosis. Dry mucosa. NECK: Supple. No tenderness. CHEST: Decreased breath sounds. No tenderness. HEART: Regular rate and rhythm, no murmur. ABDOMEN: Soft, nontender. EXTREMITIES: Tender and fluctuant swelling on the right upper thigh, RLE swelling, minimal tenderness. No other gross deformities NEUROLOGIC: Coherent. No gross focality. LABORATORIES: Hemoglobin was noted to be 8.6, hematocrit 27.4, white cell count is 10.3, platelets 507. Sodium 140, potassium pending, chloride 109, CO2 24, BUN 10, creatinine 0.5, glucose was noted to be 88. ESR 60 ASSESSMENT: 1. Recurrent abscess, right hip possible infected hematoma recent incision and drainage procedure about 2 weeks ago. No sepsis. History of MRSA. 2. right lower extremity swelling secondary to above Rule out DVT 3. Postop anemia hemoglobin drop possibly from hematoma 4. chronic obstructive pulmonary disease, pulmo status at baseline as per patient 5. chronic pain on narcotics 6. hx PSVT sp ablation 7. diarrhea rule out recurrent Clostridium difficile 8. HCV sp tx, ongoing tobacco abuse 9. hx of anxiety/mood disorder A little "off" for now as per patient due to R hip issues as per patient all beit without suicidality PLAN: GMF follow wound cultures Vancomycin, Cefepime for now Orthopedics consult. RE Right hip wound drainage, recurrent abscess (ER provider already in touch with Dr. Acuna, Orthopedic surgeon on-call for Dr. Ziegler.) RLE Dopplers. Rule out DVT Follow H&H., Transfuse PRBC for hemoglobin less than 7 and or symptomatic anemia Stool C. difficile Patient counseled on smoking. DVT prophylaxis, SCDs RE possible hematoma. Full code. Case discussed with Dr. Acuna. He recommends patient be kept n.p.o. after midnight for possible procedure in the morning. MTDD
[2017-11-01] MEDS ORDERED: CEFEPIME IV 2,000 MG in SYRINGE 7.5 ML IV SCH (01:00)
[2017-11-01] MEDS ORDERED: POTASSIUM CHLORIDE 10 MEQ TABCR PO STA (02:02)
[2017-11-01 02:45] VITALS: Ht 157.5 cm; Wt 69.2 kg
[2017-11-01] MEDS: KETOROLAC TROMETHAMINE 15 MG/ML VIAL IV. PRN ×2 (03:23→13:57)
[2017-11-01] MEDS: LACTATED RINGER'S 1000ML 1,000 ML IV SCH ×2 (03:29→22:28)
[2017-11-01] MEDS: VANCOMYCIN INJ 1,000 MG in SODIUM CHLORIDE 0.9% 250ML 250 ML IV SCH ×3 (03:30→22:13)
[2017-11-01] MEDS ORDERED: VANCOMYCIN INJ 1,000 MG in SODIUM CHLORIDE 0.9% 250ML 250 ML IV SCH (04:00)
[2017-11-01 06:17] LABS: BASO % 0.2 %; BASO ABS # 0.02 K/uL (0-0.2); EOS % 1.7 %; EOS ABS # 0.15 K/uL (0-0.5); HEMATOCRIT 23.8 % (37-47); HEMOGLOBIN 7.5 g/dL (12.0-16.0); IG# 0.09 K/uL (0.00-0.02); LYMPH % 27.1 %; LYMPH ABS # 2.41 K/uL (1.2-3.4); MEAN CELL VOLUME 90.2 fL (80-100); MEAN CORPUSCULAR HEMOGLOBIN 28.4 pg (25-34); MEAN CORPUSCULAR HGB CONC 31.5 g/dl (32-36); MEAN PLATELET VOLUME 8.4 fL (7.4-10.4); MONO ABS # 1.16 K/uL (0.11-0.59); NEUT ABS # 5.06 K/uL (1.4-6.5); PLATELET COUNT 433 K/uL (130-400); RED CELL DISTRIBUTION WIDTH CV 14.4 % (11.5-14.5); RED CELL DISTRIBUTION WIDTH SD 47.7 fL (36.4-46.3); WHITE BLOOD COUNT 8.89 K/uL (4.8-10.8)
--- NOTE | 2017-11-01 06:43 | DIAGNOSTIC IMAGING REPORT ---
R VENOUS DOPP LOWER EXT UNILAT CLINICAL HISTORY: 57 years-old Female presenting with RLE swelling. TECHNIQUE: Real-time grayscale and color and spectral Doppler ultrasound imaging of the veins of the right lower extremity was performed. Compression and augmentation were also utilized. COMPARISON: None. FINDINGS: Right: Common femoral vein: Patent. Femoral vein: Patent. Greater saphenous vein: Patent. Popliteal vein: Patent. Calf veins: Patent. Other: Prominent right inguinal lymph nodes which maintain normal fatty ameena. Some demonstrate mild cortical thickening. Subcutaneous edema noted in the popliteal fossa and calf. IMPRESSION: 1. No evidence of deep venous thrombosis. 2. Subcutaneous edema. 3. Prominent likely reactive right inguinal lymph nodes. Electronically signed by: Iggy Girard M.D. 11/01/2017 6:41 AM Dictated Date/Time: 11/01/2017 6:40 AM
[2017-11-01 06:46] LABS: CALCIUM 8.1 mg/dl (8.5-10.1); CREATININE 0.5 mg/dl (0.60-1.20); POTASSIUM 3.7 mmol/L (3.5-5.1)
[2017-11-01] MEDS: HYDROCODONE/ACETAMI 10/325 TAB PO PRN ×3 (07:08→17:40)
[2017-11-01 07:51] VITALS: BP 121/78; PULSE 84; TEMP 36.7; O2SAT 94
[2017-11-01] MEDS: FENTANYL PATCH REMOVE & WASTE SCH (09:00)
[2017-11-01] MEDS ORDERED: VANCOMYCIN CONSULT ACTIVE PRN (09:00)
[2017-11-01] MEDS: FENTANYL 25 MCG/HR TDSY TD SCH (09:03)
[2017-11-01] MEDS: METOCLOPRAMIDE HCL 5 MG TAB PO SCH ×4 (09:06→22:24)
[2017-11-01] MEDS: FAMOTIDINE 20 MG TAB PO SCH (09:07)
[2017-11-01] MEDS: MULTIVITAMIN TAB PO SCH (09:08)
[2017-11-01] MEDS: CETIRIZINE HCL 10 MG TAB PO SCH (09:08)
[2017-11-01] MEDS: FERROUS SULFATE 325 MG TAB PO SCH (09:09)
[2017-11-01] MEDS: ARIPIprazole TAB 15 MG TAB PO SCH (09:11)
[2017-11-01] MEDS: METOPROLOL SUCC 25MG EXT REL TAB PO SCH (09:11)
[2017-11-01] MEDS: BACLOFEN 10 MG TAB PO SCH ×3 (09:12→22:22)
[2017-11-01] MEDS: GABAPENTIN 300 MG CAP PO SCH ×3 (09:12→22:22)
[2017-11-01] MEDS: CEROVITE ADV FORMULA TAB PO SCH (09:12)
[2017-11-01] MEDS: CARBAMAZEPINE PO SCH ×2 (09:13→22:24)
[2017-11-01] MEDS: CEFEPIME IV 2,000 MG in SYRINGE 7.5 ML IV SCH ×2 (09:17→18:01)
--- NOTE | 2017-11-01 12:01 | ORTHOPEDICS PROGRESS NOTE ---
DATE: 11/01/2017 CHIEF COMPLAINT: Right hip pain. HISTORY OF PRESENT ILLNESS: pleasant young lady I have known her for 3or 4 years, she has persistent issues with her right hip. She had expert surgery done several months ago for total hip replacement, did well initially, then had signs and symptoms of some drainage and had an I and D of her wound approximately 2 weeks ago. Cultures were all negative placed on appropriate wound VAC. I received a call from her yesterday, 31 October, that she is having increasing pain in the right hip. I placed her on Cipro as an antibiotic. I informed her over the telephone that if she had worsening just to head to the Emergency Room for bifurcation treatment. She was seen in the Emergency Room, she was evaluated, treated. Dr. Hall, hospitalist, was gracious enough to admit to his service need to follow up in the hospital the following day, which is today, Thursday. I saw her on rounds. She has some redness, warmth, erythema to her right hip. There is no gross active drainage. It is well confined. It measures approximately 15 x 15 cm. It seems fairly isolated. She does have some swelling, warmth that goes down her leg. She has no Homans sign or signs of a DVT. MEDICATIONS: Listed multiple. ALLERGIES: MULTIPLE ALLERGIES. PAST SURGICAL HISTORY: Fairly significant for orthopedic, sinus, bowel surgery, hip surgery and spinal surgery that I performed on her. OBJECTIVE: VITAL SIGNS: She has 36.5 oral temperature, pulse regular at 80, blood pressure 130/80. Extremities: Her right hip does have some warmth or erythema about a slight drainage. IMAGING: X-rays not provided today. IMPRESSION: Cellulitis of the right lower extremity, possible abscess formation. DISPOSITION: At this point in time, we will maximize medical management. There is no urgency. We will see how the medicine work. The antibiotics was might quiet down. She is in the hospital, which is safe. If it turns worse, she may need some exploration or needle aspiration from
[2017-11-01] MEDS ORDERED: NURSING DECISION MEDICATION ORDER SCH (13:15)
[2017-11-01] MEDS ORDERED: COUGH DROP (SUGAR FREE) LOZ 24 LOZ/1 BOX PO PRN (13:30)
[2017-11-01 15:38] VITALS: BP 103/64; PULSE 78; TEMP 36.5; O2SAT 95
--- NOTE | 2017-11-01 15:50 | Progress Note ---
Progress Note Date of Service Nov 01, 2017. Progress Note Subjective: Patient seen and examined at bedside. No acute distress. Physical Exam GENERAL: no acute distress NECK: Trachea midline, no JVD CHEST: clear to auscultation, no wheezing HEART: Regular rate and rhythm, no murmur. ABDOMEN: Soft, nontender, + bowel sounds EXTREMITIES: Tender swelling on the right upper thigh, right lower leg swelling noted as well as tenderness with fluctuance on the right upper thigh. NEUROLOGIC: awake and alert, no gross focality. ASSESSMENT: Right hip/thigh wound drainage and recurrent abscess -RIGHT HIP ULTRASOUND 10/31/17 FINDINGS: Within the right lateral hip/proximal thigh there is a 12.7 x 5.9 x 3.4 cm multiseptated complex subcutaneous fluid collection. There is increased surrounding vascularity and increased echogenicity within the surrounding fat consistent with a cellulitis. This appears to extend to the skin surface through the presumed incision site. IMPRESSION: Within the right lateral hip/proximal thigh there is a 12.7 x 5.9 x 3.4 cm multiseptated complex subcutaneous fluid collection. This appears to be deep to the incision site and favors an abscess. A hematoma or postoperative seroma could also have a similar appearance. -wound drainage specimen 11/01/17: GRAM STAIN, FEW EPITHELIAL CELLS, RARE WBCs SEEN, NO ORGANISMS SEEN -blood culture 10/31/16 pending results -Vancomycin started in the ER on 10/31/17 - continue because history of MRSA, Ceftriaxone x 1 dose given in the ER on 10/31/17, Cefepime added on to Vancomycin regimen since for further broad spectrum coverage -Continue Vancomycin / Cefepime -orthopedic consult following the patient on whether surgical intervention for drainage needs to be done Right lower extremity ultrasound 10/31/17 Prominent right inguinal lymph nodes which maintain normal fatty ameena. Some demonstrate mild cortical thickening. Subcutaneous edema noted in the popliteal fossa and calf. IMPRESSION: 1. No evidence of deep venous thrombosis. 2. Subcutaneous edema. Anemia possibly that there is right hip/thigh hematoma is accounting for Hgb decline No evidence for GI blood loss, trend CBC, maintain type and screen, Transfuse PRBC for hemoglobin less than 7 and or symptomatic anemia Chronic obstructive pulmonary disease, pulmo status at baseline as per patient Chronic pain on narcotics - no sedation at this time History PSVT sp ablation - heart rate stable Diarrhea rule out recurrent Clostridium difficile HCV sp tx, ongoing tobacco abuse, Patient counseled on smoking. DVT prophylaxis, SCDs Full code.
[2017-11-01] MEDS: LORAZEPAM 1 MG TAB PO PRN (16:00)
[2017-11-01] MEDS: CYCLOBENZAPRINE HCL 10 MG TAB PO PRN (18:58)
[2017-11-01] MEDS ORDERED: VANCOMYCIN TROUGH ONE (19:30)
[2017-11-01] MEDS: MONTELUKAST SOD 10 MG TAB PO SCH (22:21)
[2017-11-01 23:20] VITALS: BP 111/73; PULSE 80; TEMP 36.6; O2SAT 93
[2017-11-02] MEDS: HYDROCODONE/ACETAMI 10/325 TAB PO PRN ×5 (00:06→21:33)
[2017-11-02] MEDS: CHECK FENTANYL PATCH PLACEMENT SCH ×4 (00:06→23:30)
[2017-11-02] MEDS: ZOLPIDEM TARTRATE 5 MG TAB PO PRN (00:06)
[2017-11-02] MEDS: CEFEPIME IV 2,000 MG in SYRINGE 7.5 ML IV SCH ×3 (01:07→17:43)
[2017-11-02] MEDS: VANCOMYCIN INJ 1,000 MG in SODIUM CHLORIDE 0.9% 250ML 250 ML IV SCH (03:56)
[2017-11-02] MEDS: KETOROLAC TROMETHAMINE 15 MG/ML VIAL IV. PRN ×2 (06:11→17:04)
[2017-11-02 06:44] LABS: BASO % 0.4 %; BASO ABS # 0.03 K/uL (0-0.2); EOS % 1.5 %; EOS ABS # 0.12 K/uL (0-0.5); HEMATOCRIT 24.8 % (37-47); HEMOGLOBIN 7.9 g/dL (12.0-16.0); IG# 0.05 K/uL (0.00-0.02); LYMPH % 29.9 %; LYMPH ABS # 2.32 K/uL (1.2-3.4); MEAN CELL VOLUME 90.2 fL (80-100); MEAN CORPUSCULAR HEMOGLOBIN 28.7 pg (25-34); MEAN CORPUSCULAR HGB CONC 31.9 g/dl (32-36); MEAN PLATELET VOLUME 8.1 fL (7.4-10.4); MONO % 11.1 %; MONO ABS # 0.86 K/uL (0.11-0.59); NEUT % 56.5 %; NEUT ABS # 4.39 K/uL (1.4-6.5); PLATELET COUNT 421 K/uL (130-400); RED CELL DISTRIBUTION WIDTH CV 14.6 % (11.5-14.5); WHITE BLOOD COUNT 7.77 K/uL (4.8-10.8)
[2017-11-02 06:53] VITALS: BP 115/75; PULSE 88; TEMP 36.7; O2SAT 92
[2017-11-02 07:21] LABS: CREATININE 0.61 mg/dl (0.60-1.20)
[2017-11-02] MEDS ORDERED: POTASSIUM CHLORIDE 20 MEQ TABCR PO ONE (08:00)
[2017-11-02] MEDS: LORAZEPAM 1 MG TAB PO PRN (08:03)
[2017-11-02] MEDS: METOCLOPRAMIDE HCL 5 MG TAB PO SCH ×4 (08:06→21:36)
[2017-11-02] MEDS: GABAPENTIN 300 MG CAP PO SCH ×3 (08:07→21:36)
[2017-11-02] MEDS: BACLOFEN 10 MG TAB PO SCH ×3 (08:07→21:37)
[2017-11-02] MEDS: FERROUS SULFATE 325 MG TAB PO SCH (08:09)
[2017-11-02] MEDS: FAMOTIDINE 20 MG TAB PO SCH (08:09)
[2017-11-02] MEDS: METOPROLOL SUCC 25MG EXT REL TAB PO SCH (08:10)
[2017-11-02] MEDS: CEROVITE ADV FORMULA TAB PO SCH (08:10)
[2017-11-02] MEDS: MULTIVITAMIN TAB PO SCH (08:10)
[2017-11-02] MEDS: ARIPIprazole TAB 15 MG TAB PO SCH (08:11)
[2017-11-02] MEDS: CARBAMAZEPINE PO SCH ×2 (08:11→21:37)
[2017-11-02] MEDS: CETIRIZINE HCL 10 MG TAB PO SCH (08:12)
[2017-11-02 09:36] VITALS: BP 123/79; PULSE 91; O2SAT 94
--- NOTE | 2017-11-02 09:43 | Pharmacy Progress Note ---
Pharmacy Abx Dose Short Note Date of Service Nov 02, 2017. Assessment & Plan Assessment * 57 year old female receiving vancomycin and cefepime IV for treatment of R hip infection * Day # 3 of antimicrobial therapy * Renal fxn may be deteriorating slightly, will need to trend SCr; SCr 0.5 --> 0.61 Plan Vancomycin * Trough level of 20.9 mcg/mL is slightly supratherapeutic, level was drawn at the appropriate time, however was drawn before steady-state (only after 2 maint doses) therefore level will continue to rise w/ repeat dosing. * Change to 750 mg IV every 8 hours * Goal trough level for bone/joint infxn : 15 to 20 mcg/mL * Trough level ordered for: 11/03/17 w/ 5th dose of new regimen Cefepime * Continue current dose of 2gm IV Q 8 hours Pharmacy will continue to follow and will adjust dose/frequency as necessary. Thank you.
[2017-11-02] MEDS: VANCOMYCIN INJ 750 MG in SODIUM CHLORIDE 0.9% 250ML 250 ML IV SCH ×2 (13:35→22:00)
--- NOTE | 2017-11-02 15:51 | DIAGNOSTIC IMAGING REPORT ---
ABSCESS DRAINAGE GUIDANCE CLINICAL HISTORY: 57 years-old Female presenting with right hip/thigh abscess ultrasound and aspiration. COMPARISON: Ultrasound from 10/31/2017. PROCEDURE: The procedure and its risks, benefits and alternatives were discussed with the patient, and written informed consent was obtained. A timeout was performed to confirm patient identity. Limited ultrasound of the right lateral thigh was performed to determine a safe needle entry site. Right lateral thigh was prepped and draped in the usual aseptic fashion. 1% Lidocaine was used for local anesthesia. An 18-gauge needle was inserted into the complex hypoechoic/anechoic collection using ultrasound guidance. 20 cc of dark red fluid was aspirated. The needle was removed. A dressing applied. The patient tolerated the procedure well. No immediate complications. IMPRESSION: Ultrasound-guided diagnostic aspiration of 20 cc from the complex superficial collection in the right lateral thigh. The fluid was sent to the laboratory for testing. Electronically signed by: Iggy Girard M.D. 11/02/2017 3:50 PM Dictated Date/Time: 11/02/2017 3:48 PM
[2017-11-02 16:00] VITALS: BP 119/79; PULSE 75; TEMP 36.6; O2SAT 95
--- NOTE | 2017-11-02 17:50 | Progress Note ---
Internal Med Progress Note Date of Service: Nov 02, 2017. Provider Documentation: Subjective: Patient seen and examined at bedside. No acute distress. patient s/p ultrasound guided drainage of right thigh Physical Exam GENERAL: no acute distress NECK: Trachea midline, no JVD CHEST: clear to auscultation, no wheezing HEART: Regular rate and rhythm, no murmur. ABDOMEN: Soft, nontender, + bowel sounds EXTREMITIES: right thigh in dressing NEUROLOGIC: awake and alert, no gross focality. ASSESSMENT & PLAN: ASSESSMENT: This is a 57 year old F who had been followed by Dr. Ziegler from orthopedics for recurrent right hip/thigh fluid build up after right hip replacement in the past Right hip/thigh wound drainage and recurrent abscess -RIGHT HIP ULTRASOUND 10/31/17 FINDINGS: Within the right lateral hip/proximal thigh there is a 12.7 x 5.9 x 3.4 cm multiseptated complex subcutaneous fluid collection. There is increased surrounding vascularity and increased echogenicity within the surrounding fat consistent with a cellulitis. This appears to extend to the skin surface through the presumed incision site. IMPRESSION: Within the right lateral hip/proximal thigh there is a 12.7 x 5.9 x 3.4 cm multiseptated complex subcutaneous fluid collection. This appears to be deep to the incision site and favors an abscess. A hematoma or postoperative seroma could also have a similar appearance. 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 The fluid was sent to the laboratory for testing. -Dr. Ziegler orthopedics ([phone]) to follow up with patient Right lower extremity ultrasound 10/31/17 Prominent right inguinal lymph nodes which maintain normal fatty ameena. Some demonstrate mild cortical thickening. Subcutaneous edema noted in the popliteal fossa and calf. IMPRESSION: 1. No evidence of deep venous thrombosis. 2. Subcutaneous edema. Anemia stable Chronic obstructive pulmonary disease, pulmo status at baseline as per patient Chronic pain on narcotics - no sedation at this time History PSVT sp ablation - heart rate stable Diarrhea rule out recurrent Clostridium difficile HCV sp tx, ongoing tobacco abuse, Patient counseled on smoking. DVT prophylaxis, SCDs Full code. Disposition: Keep in hospital for now. Continue IV antibiotics and follow up cultures on whether there is infection. Vital Signs: Date Time Temp Pulse Resp B/P (MAP) Pulse Ox O2 Delivery O2 Flow Rate FiO2 11/02/17 16:00 36.6 75 18 119/79 (92) 95 Room Air 11/02/17 09:36 91 94 11/02/17 07:50 Room Air 11/02/17 06:53 36.7 88 16 115/75 (88) 92 Room Air 11/02/17 00:00 Room Air 11/01/17 23:20 36.6 80 16 111/73 (86) 93 Room Air Lab Results: Results Past 24 Hours Test 11/01/17 19:45 11/02/17 06:25 Range/Units Vancomycin Level Trough 20.9 SEE COMMENT mcg/ml White Blood Count 7.77 4.8-10.8 K/uL Red Blood Count 2.75 4.2-5.4 M/uL Hemoglobin 7.9 12.0-16.0 g/dL Hematocrit 24.8 37-47 % Mean Corpuscular Volume 90.2 80-100 fL Mean Corpuscular Hemoglobin 28.7 25-34 pg Mean Corpuscular Hemoglobin Concent 31.9 32-36 g/dl Platelet Count 421 130-400 K/uL Mean Platelet Volume 8.1 7.4-10.4 fL Neutrophils (%) (Auto) 56.5 % Lymphocytes (%) (Auto) 29.9 % Monocytes (%) (Auto) 11.1 % Eosinophils (%) (Auto) 1.5 % Basophils (%) (Auto) 0.4 % Neutrophils # (Auto) 4.39 1.4-6.5 K/uL Lymphocytes # (Auto) 2.32 1.2-3.4 K/uL Monocytes # (Auto) 0.86 0.11-0.59 K/uL Eosinophils # (Auto) 0.12 0-0.5 K/uL Basophils # (Auto) 0.03 0-0.2 K/uL RDW Standard Deviation 48.0 36.4-46.3 fL RDW Coefficient of Variation 14.6 11.5-14.5 % Immature Granulocyte % (Auto) 0.6 % Immature Granulocyte # (Auto) 0.05 0.00-0.02 K/uL Creatinine 0.61 0.60-1.20 mg/dl Est Creatinine Clear Calc Drug Dose 92.7 ml/min Estimated GFR () 116.6 Estimated GFR (Non- 100.6
[2017-11-02] MEDS: LACTATED RINGER'S 1000ML 1,000 ML IV SCH (17:52)
--- NOTE | 2017-11-02 18:53 | PROGRESS NOTE ---
DATE: 11/02/2017 CHIEF COMPLAINT: Hematoma collection of the right hip with right leg cellulitis. PROGRESS: Jennifer was seen and examined at bedside today. Overall, she says she is doing much better. The hard hematoma has been subsiding on the lateral aspect of her hip and the cellulitis down her leg is improving. She did get an aspiration from radiology of the fluid collection today. PHYSICAL EXAMINATION: RIGHT HIP: The incision is currently covered. The hardness on the lateral aspect is much improved from initial admission. There is minimal redness around her hip. Her leg does not look too bad. She said it is significantly improved from admission. IMPRESSION: Hematoma versus seroma of the right hip with right lower extremity cellulitis. PLAN: I am waiting for the final cultures on the hip. However, it did not seem to be like it was divya pus, so I think this can just be treated with IV antibiotics. I am hesitant to do a revision I&D of the hip. We will do IV antibiotics for now and await for final culture results.
[2017-11-02] MEDS ORDERED: NURSING VERBAL MED ORDER ONE (21:00)
[2017-11-02] MEDS: MONTELUKAST SOD 10 MG TAB PO SCH (21:36)
[2017-11-02 23:27] VITALS: BP 107/71; PULSE 83; TEMP 36.6; O2SAT 94
[2017-11-03] MEDS: ZOLPIDEM TARTRATE 5 MG TAB PO PRN ×2 (00:21→22:14)
[2017-11-03] MEDS: KETOROLAC TROMETHAMINE 15 MG/ML VIAL IV. PRN ×5 (00:21→23:47)
[2017-11-03] MEDS: CEFEPIME IV 2,000 MG in SYRINGE 7.5 ML IV SCH ×3 (00:22→17:33)
[2017-11-03] MEDS: HYDROCODONE/ACETAMI 10/325 TAB PO PRN ×4 (02:55→22:13)
[2017-11-03] MEDS: LORAZEPAM 1 MG TAB PO PRN ×2 (03:59→17:32)
[2017-11-03] MEDS ORDERED: FLUTICASONE PROPIONATE NA SPR 16 GM BTL ONE (04:07)
[2017-11-03] MEDS: VANCOMYCIN INJ 750 MG in SODIUM CHLORIDE 0.9% 250ML 250 ML IV SCH ×3 (06:20→22:28)
[2017-11-03 06:59] VITALS: BP 111/75; PULSE 74; TEMP 36.6; O2SAT 94
[2017-11-03] MEDS: CHECK FENTANYL PATCH PLACEMENT SCH ×3 (08:00→23:48)
[2017-11-03 08:50] LABS: BASO % 0.3 %; BASO ABS # 0.02 K/uL (0-0.2); EOS % 1.3 %; HEMATOCRIT 28.7 % (37-47); HEMOGLOBIN 9.1 g/dL (12.0-16.0); IG# 0.05 K/uL (0.00-0.02); LYMPH % 26.7 %; LYMPH ABS # 2.11 K/uL (1.2-3.4); MEAN CELL VOLUME 89.7 fL (80-100); MEAN CORPUSCULAR HEMOGLOBIN 28.4 pg (25-34); MEAN CORPUSCULAR HGB CONC 31.7 g/dl (32-36); MEAN PLATELET VOLUME 8.5 fL (7.4-10.4); MONO % 12.3 %; MONO ABS # 0.97 K/uL (0.11-0.59); NEUT % 58.8 %; NEUT ABS # 4.66 K/uL (1.4-6.5); PLATELET COUNT 462 K/uL (130-400); RED CELL DISTRIBUTION WIDTH CV 14.2 % (11.5-14.5); RED CELL DISTRIBUTION WIDTH SD 46.7 fL (36.4-46.3); WHITE BLOOD COUNT 7.91 K/uL (4.8-10.8)
[2017-11-03] MEDS: FERROUS SULFATE 325 MG TAB PO SCH (09:22)
[2017-11-03] MEDS: METOPROLOL SUCC 25MG EXT REL TAB PO SCH (09:22)
[2017-11-03] MEDS: BACLOFEN 10 MG TAB PO SCH ×3 (09:22→22:17)
[2017-11-03] MEDS: GABAPENTIN 300 MG CAP PO SCH ×3 (09:22→22:16)
[2017-11-03] MEDS: CEROVITE ADV FORMULA TAB PO SCH (09:23)
[2017-11-03] MEDS: METOCLOPRAMIDE HCL 5 MG TAB PO SCH ×4 (09:23→22:18)
[2017-11-03] MEDS: CETIRIZINE HCL 10 MG TAB PO SCH (09:23)
[2017-11-03] MEDS: ARIPIprazole TAB 15 MG TAB PO SCH (09:24)
[2017-11-03] MEDS: MULTIVITAMIN TAB PO SCH (09:24)
[2017-11-03] MEDS: CARBAMAZEPINE PO SCH ×2 (09:25→22:19)
[2017-11-03] MEDS: FAMOTIDINE 20 MG TAB PO SCH (09:25)
[2017-11-03 09:28] LABS: CREATININE 0.62 mg/dl (0.60-1.20)
[2017-11-03] MEDS: LACTATED RINGER'S 1000ML 1,000 ML IV SCH ×2 (15:43→23:47)
[2017-11-03 15:58] VITALS: BP 118/80; PULSE 87; TEMP 37; O2SAT 93
[2017-11-03] MEDS: CYCLOBENZAPRINE HCL 10 MG TAB PO PRN (18:56)
--- NOTE | 2017-11-03 19:18 | Progress Note ---
Medicine Progress Note Date & Time of Visit: Nov 03, 2017 at 18:55. Subjective Pt was seen and examined Lying in bed with no distress Pt denies any fever, chest pain, palpitation and SOB Objective Last 8 Hrs Date Time Temp Pulse Resp B/P (MAP) Pulse Ox O2 Delivery O2 Flow Rate FiO2 11/03/17 15:58 37.0 87 16 118/80 (93) 93 Room Air Physical Exam: General- No acute distress Head- atraumatic Eyes- PERRL, EOMI ENT- oropharynx clear Neck- supple, no JVD Lungs- clear to auscultation Heart- regular rhythm; no murmur Abdomen- normal bowel sounds, soft Extremities- No calf tenderness, right tight erythema that is improve,opening area in the right tight with no purulent drainage Neuro- alert, oriented x 3; PERRL, EOMI Skin- warm & dry Laboratory Results: Last 24 Hours Test 11/03/17 08:21 White Blood Count 7.91 K/uL Red Blood Count 3.20 M/uL Hemoglobin 9.1 g/dL Hematocrit 28.7 % Mean Corpuscular Volume 89.7 fL Mean Corpuscular Hemoglobin 28.4 pg Mean Corpuscular Hemoglobin Concent 31.7 g/dl Platelet Count 462 K/uL Mean Platelet Volume 8.5 fL Neutrophils (%) (Auto) 58.8 % Lymphocytes (%) (Auto) 26.7 % Monocytes (%) (Auto) 12.3 % Eosinophils (%) (Auto) 1.3 % Basophils (%) (Auto) 0.3 % Neutrophils # (Auto) 4.66 K/uL Lymphocytes # (Auto) 2.11 K/uL Monocytes # (Auto) 0.97 K/uL Eosinophils # (Auto) 0.10 K/uL Basophils # (Auto) 0.02 K/uL RDW Standard Deviation 46.7 fL RDW Coefficient of Variation 14.2 % Immature Granulocyte % (Auto) 0.6 % Immature Granulocyte # (Auto) 0.05 K/uL Creatinine 0.62 mg/dl Est Creatinine Clear Calc Drug Dose 91.3 ml/min Estimated GFR () 116.0 Estimated GFR (Non- 100.1 Assessment & Plan Recurrent abscess in the R thigh Present on admission with right tight pain and swelling Right Hip u/s showed a right lateral hip/proximal thigh there is a 12.7 x 5.9 x 3.4 cm multiseptated complex subcutaneous fluid collection. NO DVT on Doppler of LE Wound culture on 11/01 showed gram positive cocci S/P Ultrasound-guided diagnostic aspiration of 20 cc from the complex superficial collection in the right lateral thigh done yesterday No growth on fluid cx that was sent from the aspiration Blood cx no growth Continue Cefepime and Vanco IV Ortho on board Dr. Ziegler orthopedics ([phone]) to follow up with patient Anemia stable Monitor CBC Chronic obstructive pulmonary disease Stable Chronic pain On fentanyl patch baclofen and Flexeril Stable Hx PSVT sp ablation Rate controlled Tobacco abuse counseling on smoking. DVT px On SCDs CODE STATUS Full code. Consultants: Ortho Current Inpatient Medications: Current Inpatient Medications Medications (Trade) Dose Ordered Sig/Jennifer Route Start Time Stop Time Status Last Admin Dose Admin Aripiprazole (Abilify Tab) 30 mg QAM PO 11/01/17 09:00 12/01/17 08:59 11/03/17 09:24 30 MG Baclofen (Lioresal Tab) 10 mg TID PO 11/01/17 09:00 12/01/17 08:59 11/03/17 14:22 10 MG Cetirizine HCl (zyrTEC TAB) 10 mg QAM PO 11/01/17 09:00 12/01/17 08:59 11/03/17 09:23 10 MG Cyclobenzaprine HCl (Flexeril Tab) 10 mg TID PRN PO 10/31/17 22:30 11/30/17 22:29 11/01/17 18:58 10 MG Famotidine (Pepcid Tab) 40 mg DAILY PO 11/01/17 09:00 12/01/17 08:59 11/03/17 09:25 40 MG Gabapentin (Neurontin Cap) 300 mg TID PO 11/01/17 09:00 12/01/17 08:59 11/03/17 14:22 300 MG Acetaminophen/ Hydrocodone Bitart ([place] 10/325 Tab) 1 tab Q4H PRN PO 10/31/17 22:30 11/14/17 22:29 11/03/17 16:25 1 TAB Lamotrigine (Lamictal Tab) 150 mg BID PO 11/01/17 09:00 12/01/17 08:59 11/03/17 09:23 150 MG Lorazepam (Ativan Tab) 1 mg BID PRN PO 10/31/17 22:30 11/30/17 22:29 11/03/17 17:32 1 MG Metoclopramide HCl (Reglan Tab) 5 mg ACHS PO 11/01/17 07:00 12/01/17 06:59 11/03/17 17:33 5 MG Metoprolol Succinate (Toprol Xl Tab) 25 mg QAM PO 11/01/17 09:00 12/01/17 08:59 11/03/17 09:22 25 MG Montelukast Sodium (Singulair Tab) 10 mg HS PO 11/01/17 21:00 12/01/17 20:59 11/02/17 21:36 10 MG Multivitamins (Multivitamin Tab) 1 tab QAM PO 11/01/17 09:00 12/01/17 08:59 11/03/17 09:24 1 TAB Multivitamins/ Minerals (Multivitamin W/ Minerals Tab) 1 tab DAILY PO 11/01/17 09:00 12/01/17 08:59 11/03/17 09:23 1 TAB Buspirone HCl (Buspar Tab) 20 mg BID PO 11/01/17 09:00 12/01/17 08:59 11/03/17 09:24 20 MG Ferrous Sulfate (Feosol Tab) 325 mg QAM PO 11/01/17 09:00 12/01/17 08:59 11/03/17 09:22 325 MG Polyethylene (Miralax Powder Packet) 17 gm DAILY PRN PO 10/31/17 22:30 11/30/17 22:29 Acetaminophen (Tylenol Tab) 650 mg Q4H PRN PO 10/31/17 22:30 11/30/17 22:29 Vancomycin HCl (Consult) 1 ea DAILY PRN N/A 11/01/17 09:00 12/01/17 08:59 Hydromorphone HCl (Dilaudid Inj) 0.5 mg Q8H PRN IV 10/31/17 23:45 11/14/17 22:59 Ketorolac Tromethamine (Toradol Inj) 15 mg Q6H PRN IV. 10/31/17 23:45 11/05/17 23:44 11/03/17 17:33 15 MG Fentanyl (Duragesic Patch) 25 mcg Q3D TD 11/01/17 09:00 11/15/17 08:59 11/01/17 09:03 25 MCG Miscellaneous (Fentanyl Patch Remove & Waste) 1 ea Q3D N/A 11/01/17 08:59 12/01/17 08:58 11/01/17 09:00 1 EA Miscellaneous Information (Check Fentanyl Patch Placement) 1 ea QS N/A 11/01/17 00:00 12/01/17 00:00 11/03/17 15:44 1 EA Cefepime HCl 2000 mg/Syringe 20 ml @ 5 mls/min Q8H IV 11/01/17 09:00 12/13/17 08:59 11/03/17 17:33 5 MLS/MIN Zolpidem Tartrate (Ambien Tab) 5 mg HSZ PRN PO 11/01/17 00:45 12/01/17 00:44 11/03/17 00:21 5 MG Carbamazepine (Tegretol-Xr) 100 mg BID PO 11/01/17 09:00 12/01/17 08:59 11/03/17 09:25 100 MG Lactated Ringer's 1,000 ml @ 50 mls/hr Q20H IV 11/01/17 02:15 12/01/17 02:14 11/01/17 22:28 50 MLS/HR Menthol (Nice Brown) 1 brown PRN PRN PO 11/01/17 13:30 12/01/17 13:29 Vancomycin HCl 750 mg/Sodium Chloride 265 ml @ 125 mls/hr Q8H IV 11/02/17 14:00 12/13/17 03:59 11/03/17 14:22 125 MLS/HR Fluticasone Propionate (Flonase Nasal [place]) 2 sprays BID NA 11/03/17 21:00 12/03/17 20:59
[2017-11-03] MEDS ORDERED: VANCOMYCIN TROUGH ONE (21:30)
[2017-11-03] MEDS: FLUTICASONE PROPIONATE NA SPR 16 GM BTL SCH (22:14)
[2017-11-03] MEDS: LUBIPROSTONE 8 MCG CAP PO SCH (22:14)
[2017-11-03] MEDS: MONTELUKAST SOD 10 MG TAB PO SCH (22:16)
--- NOTE | 2017-11-03 23:01 | Pharmacy Progress Note ---
Pharmacy Abx Dose Short Note Date of Service Nov 03, 2017. Assessment & Plan Assessment 57 year old female receiving Vancomycin/cefepime for treatment of bone/joint infection. Day # 4 of antimicrobial therapy. Plan Vancomycin * Trough level of 23.7 mcg/mL is supratherapeutic. * Change to 1000 mg IV every 12 hours * Goal trough level: 15 to 20 mcg/mL * Trough level ordered for: 11/06/17 @0330 Pharmacy will continue to follow and will adjust dose/frequency as necessary. Thank you.
[2017-11-03 23:56] VITALS: BP 121/77; PULSE 86; TEMP 37.1; O2SAT 91
[2017-11-04] MEDS: CEFEPIME IV 2,000 MG in SYRINGE 7.5 ML IV SCH ×3 (00:51→16:45)
--- NOTE | 2017-11-04 01:06 | PROGRESS NOTE ---
DATE: 11/04/2017 CHIEF COMPLAINT: Cellulitis to the right leg with hematoma formation. PROGRESS: Jennifer was seen and examined at bedside today. Overall, her leg is improving. The IV antibiotics seem to be helping. The hematoma was also slowly resolving. We are still waiting for final cultures from the aspiration of the hematoma by radiology. She is working well with physical therapy and she has no new complaints. PHYSICAL EXAMINATION: RIGHT HIP: The dressing was removed. There is a little bit of drainage from the aspiration site from radiology. Otherwise, the swelling on the side of her hip is subsiding some. The swelling down her leg is subsiding some. The redness and erythema is slowly disappearing. LABORATORY DATA: The swab from the surface of minor drainage of the right hip did grow gram-positive cocci, but the aspiration of the hematoma of her right hip has not grown anything to date. IMPRESSION: 1. Cellulitis of the right lower extremity that is resolving. 2. Hematoma versus possible seroma of the right hip. PLAN: The cellulitis seems to be improving. She is currently on IV Ancef and vancomycin which seem to be working. I believe that the fluid collection is either hematoma or seroma from her hip as she is only 2 weeks out from the surgery; however, we are waiting for the final aspiration results before we figure out what antibiotic regimen we want to keep her on. I am very optimistic that things are improving. She is orthopedically stable for discharge as soon as medicine feels comfortable stopping the IV antibiotics and sending her home on oral antibiotics. She understands this is going to be a couple of days. If she is discharged, I will see her in my office in about 2-3 weeks from the date of discharge to follow up to make sure her symptoms continue to improve. Office phone number is [phone].
[2017-11-04] MEDS: ACETAMINOPHEN 325 MG TAB PO PRN (01:13)
[2017-11-04] MEDS: HYDROCODONE/ACETAMI 10/325 TAB PO PRN ×4 (04:18→23:23)
[2017-11-04] MEDS: CHECK FENTANYL PATCH PLACEMENT SCH ×3 (07:31→23:24)
[2017-11-04] MEDS: KETOROLAC TROMETHAMINE 15 MG/ML VIAL IV. PRN ×3 (07:40→21:58)
[2017-11-04 07:47] VITALS: BP 118/77; PULSE 80; TEMP 36.5; O2SAT 93
[2017-11-04 08:19] LABS: BASO % 0.4 %; BASO ABS # 0.03 K/uL (0-0.2); EOS % 0.7 %; EOS ABS # 0.06 K/uL (0-0.5); HEMATOCRIT 25.8 % (37-47); HEMOGLOBIN 8.3 g/dL (12.0-16.0); IG# 0.02 K/uL (0.00-0.02); LYMPH % 23.3 %; LYMPH ABS # 1.98 K/uL (1.2-3.4); MEAN CELL VOLUME 88.4 fL (80-100); MEAN CORPUSCULAR HEMOGLOBIN 28.4 pg (25-34); MEAN CORPUSCULAR HGB CONC 32.2 g/dl (32-36); MEAN PLATELET VOLUME 8.6 fL (7.4-10.4); MONO % 11.8 %; NEUT % 63.6 %; NEUT ABS # 5.42 K/uL (1.4-6.5); PLATELET COUNT 408 K/uL (130-400); RED CELL DISTRIBUTION WIDTH CV 14.5 % (11.5-14.5); RED CELL DISTRIBUTION WIDTH SD 46.9 fL (36.4-46.3); WHITE BLOOD COUNT 8.51 K/uL (4.8-10.8)
[2017-11-04 08:48] LABS: CREATININE 0.59 mg/dl (0.60-1.20); POTASSIUM 3.9 mmol/L (3.5-5.1)
[2017-11-04] MEDS: FENTANYL PATCH REMOVE & WASTE SCH (08:59)
[2017-11-04] MEDS: FLUTICASONE PROPIONATE NA SPR 16 GM BTL SCH ×2 (09:37→21:31)
[2017-11-04] MEDS: BACLOFEN 10 MG TAB PO SCH ×3 (09:37→21:26)
[2017-11-04] MEDS: METOCLOPRAMIDE HCL 5 MG TAB PO SCH ×4 (09:38→21:29)
[2017-11-04] MEDS: FAMOTIDINE 20 MG TAB PO SCH (09:39)
[2017-11-04] MEDS: FERROUS SULFATE 325 MG TAB PO SCH (09:39)
[2017-11-04] MEDS: GABAPENTIN 300 MG CAP PO SCH ×3 (09:39→21:26)
[2017-11-04] MEDS: METOPROLOL SUCC 25MG EXT REL TAB PO SCH (09:39)
[2017-11-04] MEDS: CEROVITE ADV FORMULA TAB PO SCH (09:40)
[2017-11-04] MEDS: ARIPIprazole TAB 15 MG TAB PO SCH (09:40)
[2017-11-04] MEDS: MULTIVITAMIN TAB PO SCH (09:40)
[2017-11-04] MEDS: CARBAMAZEPINE PO SCH ×2 (09:41→21:30)
[2017-11-04] MEDS: CETIRIZINE HCL 10 MG TAB PO SCH (09:42)
[2017-11-04] MEDS: FENTANYL 25 MCG/HR TDSY TD SCH (09:43)
[2017-11-04] MEDS: LORAZEPAM 1 MG TAB PO PRN (09:53)
[2017-11-04] MEDS: LUBIPROSTONE 8 MCG CAP PO SCH ×2 (10:37→21:29)
[2017-11-04 15:19] VITALS: BP 115/75; PULSE 77; TEMP 36.6; O2SAT 94
[2017-11-04] MEDS: VANCOMYCIN INJ 1,000 MG in SODIUM CHLORIDE 0.9% 250ML 250 ML IV SCH (15:37)
--- NOTE | 2017-11-04 18:21 | Progress Note ---
Medicine Progress Note Date & Time of Visit: Nov 04, 2017 at 13:15. Subjective Pt was seen and examined Lying in bed with no distress Pt said that she continues to have tenderness in the right thigh Denies any chest pain, palpitation, dizziness and fever Objective Last 8 Hrs Date Time Temp Pulse Resp B/P (MAP) Pulse Ox O2 Delivery O2 Flow Rate FiO2 11/04/17 15:30 Room Air 11/04/17 15:19 36.6 77 16 115/75 (88) 94 Room Air Physical Exam: General- No acute distress Head- atraumatic Eyes- PERRL, EOMI ENT- oropharynx clear Neck- supple, no JVD Lungs- clear to auscultation Heart- regular rhythm; no murmur Abdomen- normal bowel sounds, soft Extremities- No calf tenderness, right tight erythema that is improve,opening area in the right tight with no purulent drainage Neuro- alert, oriented x 3; PERRL, EOMI Skin- warm & dry Laboratory Results: Last 24 Hours Test 11/03/17 21:40 11/04/17 07:49 Vancomycin Level Trough 23.7 mcg/ml White Blood Count 8.51 K/uL Red Blood Count 2.92 M/uL Hemoglobin 8.3 g/dL Hematocrit 25.8 % Mean Corpuscular Volume 88.4 fL Mean Corpuscular Hemoglobin 28.4 pg Mean Corpuscular Hemoglobin Concent 32.2 g/dl Platelet Count 408 K/uL Mean Platelet Volume 8.6 fL Neutrophils (%) (Auto) 63.6 % Lymphocytes (%) (Auto) 23.3 % Monocytes (%) (Auto) 11.8 % Eosinophils (%) (Auto) 0.7 % Basophils (%) (Auto) 0.4 % Neutrophils # (Auto) 5.42 K/uL Lymphocytes # (Auto) 1.98 K/uL Monocytes # (Auto) 1.00 K/uL Eosinophils # (Auto) 0.06 K/uL Basophils # (Auto) 0.03 K/uL RDW Standard Deviation 46.9 fL RDW Coefficient of Variation 14.5 % Immature Granulocyte % (Auto) 0.2 % Immature Granulocyte # (Auto) 0.02 K/uL Red Blood Cell Morphology Unremarkable Sodium Level 136 mmol/L Potassium Level 3.9 mmol/L Chloride Level 104 mmol/L Carbon Dioxide Level 27 mmol/L Anion Gap 5.0 mmol/L Blood Urea Nitrogen 11 mg/dl Creatinine 0.59 mg/dl Est Creatinine Clear Calc Drug Dose 95.9 ml/min Estimated GFR () 117.9 Estimated GFR (Non- 101.7 BUN/Creatinine Ratio 18.2 Random Glucose 96 mg/dl Calcium Level 9.0 mg/dl Assessment & Plan Recurrent abscess in the R thigh Present on admission with right tight pain and swelling Right Hip u/s showed a right lateral hip/proximal thigh there is a 12.7 x 5.9 x 3.4 cm multiseptated complex subcutaneous fluid collection. NO DVT on Doppler of LE Wound culture on 11/01 showed gram positive cocci S/P Ultrasound-guided diagnostic aspiration of 20 cc from the complex superficial collection in the right lateral thigh done yesterday Corynebacterium species grew on fluid cx that was sent from the aspiration, with low count, possible contamination Blood cx no growth On Cefepime and Vanco IV Will change abx to Augmentin and doxy Ortho on board Dr. Ziegler [facility]opedics ([phone]) to follow up with patient Anemia Hgb 8.3 Monitor CBC Chronic obstructive pulmonary disease Stable Chronic pain On fentanyl patch baclofen and Flexeril Stable Hx PSVT sp ablation Rate controlled Tobacco abuse counseling on smoking. DVT px On SCDs CODE STATUS Full code. Disposition Possible discharge tomorrow Consultants: [facility] Current Inpatient Medications: Current Inpatient Medications Medications (Trade) Dose Ordered Sig/Jennifer Route Start Time Stop Time Status Last Admin Dose Admin Aripiprazole (Abilify Tab) 30 mg QAM PO 11/01/17 09:00 12/01/17 08:59 11/04/17 09:40 30 MG Baclofen (Lioresal Tab) 10 mg TID PO 11/01/17 09:00 12/01/17 08:59 11/04/17 14:16 10 MG Cetirizine HCl (zyrTEC TAB) 10 mg QAM PO 11/01/17 09:00 12/01/17 08:59 11/04/17 09:42 10 MG Cyclobenzaprine HCl (Flexeril Tab) 10 mg TID PRN PO 10/31/17 22:30 11/30/17 22:29 11/03/17 18:56 10 MG Famotidine (Pepcid Tab) 40 mg DAILY PO 11/01/17 09:00 12/01/17 08:59 11/04/17 09:39 40 MG Gabapentin (Neurontin Cap) 300 mg TID PO 11/01/17 09:00 12/01/17 08:59 11/04/17 14:16 300 MG Acetaminophen/ Hydrocodone Bitart ([place] 10/325 Tab) 1 tab Q4H PRN PO 10/31/17 22:30 11/14/17 22:29 11/04/17 10:36 1 TAB Lamotrigine (Lamictal Tab) 150 mg BID PO 11/01/17 09:00 12/01/17 08:59 11/04/17 09:38 150 MG Lorazepam (Ativan Tab) 1 mg BID PRN PO 10/31/17 22:30 11/30/17 22:29 11/04/17 09:53 1 MG Metoclopramide HCl (Reglan Tab) 5 mg ACHS PO 11/01/17 07:00 12/01/17 06:59 11/04/17 16:45 5 MG Metoprolol Succinate (Toprol Xl Tab) 25 mg QAM PO 11/01/17 09:00 12/01/17 08:59 11/04/17 09:39 25 MG Montelukast Sodium (Singulair Tab) 10 mg HS PO 11/01/17 21:00 12/01/17 20:59 11/03/17 22:16 10 MG Multivitamins (Multivitamin Tab) 1 tab QAM PO 11/01/17 09:00 12/01/17 08:59 11/04/17 09:40 1 TAB Multivitamins/ Minerals (Multivitamin W/ Minerals Tab) 1 tab DAILY PO 11/01/17 09:00 12/01/17 08:59 11/04/17 09:40 1 TAB Buspirone HCl (Buspar Tab) 20 mg BID PO 11/01/17 09:00 12/01/17 08:59 11/04/17 09:37 20 MG Ferrous Sulfate (Feosol Tab) 325 mg QAM PO 11/01/17 09:00 12/01/17 08:59 11/04/17 09:39 325 MG Polyethylene (Miralax Powder Packet) 17 gm DAILY PRN PO 10/31/17 22:30 11/30/17 22:29 Acetaminophen (Tylenol Tab) 650 mg Q4H PRN PO 10/31/17 22:30 11/30/17 22:29 11/04/17 01:13 650 MG Vancomycin HCl (Consult) 1 ea DAILY PRN N/A 11/01/17 09:00 12/01/17 08:59 Hydromorphone HCl (Dilaudid Inj) 0.5 mg Q8H PRN IV 10/31/17 23:45 11/14/17 22:59 Ketorolac Tromethamine (Toradol Inj) 15 mg Q6H PRN IV. 10/31/17 23:45 11/05/17 23:44 11/04/17 14:21 15 MG Fentanyl (Duragesic Patch) 25 mcg Q3D TD 11/01/17 09:00 11/15/17 08:59 11/04/17 09:43 25 MCG Miscellaneous (Fentanyl Patch Remove & Waste) 1 ea Q3D N/A 11/01/17 08:59 12/01/17 08:58 11/04/17 08:59 1 EA Miscellaneous Information (Check Fentanyl Patch Placement) 1 ea QS N/A 11/01/17 00:00 12/01/17 00:00 11/04/17 15:39 1 EA Cefepime HCl 2000 mg/Syringe 20 ml @ 5 mls/min Q8H IV 11/01/17 09:00 12/13/17 08:59 11/04/17 16:45 5 MLS/MIN Zolpidem Tartrate (Ambien Tab) 5 mg HSZ PRN PO 11/01/17 00:45 12/01/17 00:44 11/03/17 22:14 5 MG Carbamazepine (Tegretol-Xr) 100 mg BID PO 11/01/17 09:00 12/01/17 08:59 11/04/17 09:41 100 MG Lactated Ringer's 1,000 ml @ 50 mls/hr Q20H IV 11/01/17 02:15 12/01/17 02:14 11/03/17 23:47 50 MLS/HR Menthol (Nice Brown) 1 brown PRN PRN PO 11/01/17 13:30 12/01/17 13:29 Fluticasone Propionate (Flonase Nasal [place]) 2 sprays BID NA 11/03/17 21:00 12/03/17 20:59 11/04/17 09:37 2 SPRAYS Lubiprostone (Amitiza) 24 mcg BID PO 11/03/17 21:00 12/03/17 20:59 11/04/17 10:37 24 MCG Vancomycin HCl 1000 mg/Sodium Chloride 270 ml @ 125 mls/hr Q12H IV 11/04/17 16:00 12/12/17 23:59 11/04/17 15:37 125 MLS/HR
[2017-11-04] MEDS: ONDANSETRON INJ 2 MG/ML 2 ML VIAL IV PRN (18:50)
[2017-11-04] MEDS: LACTATED RINGER'S 1000ML 1,000 ML IV SCH (18:57)
[2017-11-04] MEDS: MONTELUKAST SOD 10 MG TAB PO SCH (21:30)
[2017-11-04] MEDS ORDERED: NURSING DECISION MEDICATION ORDER SCH (23:15)
[2017-11-04] MEDS: ZOLPIDEM TARTRATE 5 MG TAB PO PRN (23:23)
[2017-11-04 23:48] VITALS: BP 108/71; PULSE 86; TEMP 36.5; O2SAT 94
[2017-11-05] MEDS: CEFEPIME IV 2,000 MG in SYRINGE 7.5 ML IV SCH (01:01)
[2017-11-05] MEDS: ACETAMINOPHEN 325 MG TAB PO PRN (01:15)
[2017-11-05] MEDS: HYDROCODONE/ACETAMI 10/325 TAB PO PRN ×4 (04:12→16:36)
[2017-11-05] MEDS: VANCOMYCIN INJ 1,000 MG in SODIUM CHLORIDE 0.9% 250ML 250 ML IV SCH (04:13)
[2017-11-05 06:58] VITALS: BP 112/71; PULSE 74; TEMP 36.4; O2SAT 95
[2017-11-05] MEDS: MULTIVITAMIN TAB PO SCH (08:14)
[2017-11-05] MEDS: CEROVITE ADV FORMULA TAB PO SCH (08:14)
[2017-11-05] MEDS: GABAPENTIN 300 MG CAP PO SCH ×2 (08:15→14:01)
[2017-11-05] MEDS: FERROUS SULFATE 325 MG TAB PO SCH (08:15)
[2017-11-05] MEDS: BACLOFEN 10 MG TAB PO SCH ×2 (08:15→14:01)
[2017-11-05] MEDS: METOCLOPRAMIDE HCL 5 MG TAB PO SCH ×3 (08:16→16:35)
[2017-11-05] MEDS: FLUTICASONE PROPIONATE NA SPR 16 GM BTL SCH (08:16)
[2017-11-05] MEDS: ARIPIprazole TAB 15 MG TAB PO SCH (08:16)
[2017-11-05] MEDS: CHECK FENTANYL PATCH PLACEMENT SCH ×2 (08:17→16:28)
[2017-11-05] MEDS: LUBIPROSTONE 8 MCG CAP PO SCH (08:17)
[2017-11-05] MEDS: CETIRIZINE HCL 10 MG TAB PO SCH (08:18)
[2017-11-05] MEDS: FAMOTIDINE 20 MG TAB PO SCH (08:18)
[2017-11-05] MEDS: CARBAMAZEPINE PO SCH (08:20)
[2017-11-05] MEDS: METOPROLOL SUCC 25MG EXT REL TAB PO SCH (08:20)
[2017-11-05] MEDS ORDERED: DOXYCYCLINE HYCLATE 100 MG CAP PO SCH (09:00)
[2017-11-05 09:19] LABS: BASO % 0.5 %; BASO ABS # 0.05 K/uL (0-0.2); EOS % 1.8 %; EOS ABS # 0.18 K/uL (0-0.5); HEMATOCRIT 29.7 % (37-47); HEMOGLOBIN 9.1 g/dL (12.0-16.0); IG# 0.09 K/uL (0.00-0.02); LYMPH % 25.3 %; LYMPH ABS # 2.47 K/uL (1.2-3.4); MEAN CELL VOLUME 88.9 fL (80-100); MEAN CORPUSCULAR HEMOGLOBIN 27.2 pg (25-34); MEAN CORPUSCULAR HGB CONC 30.6 g/dl (32-36); MEAN PLATELET VOLUME 8.9 fL (7.4-10.4); MONO % 11.5 %; MONO ABS # 1.12 K/uL (0.11-0.59); NEUT ABS # 5.84 K/uL (1.4-6.5); PLATELET COUNT 472 K/uL (130-400); RED CELL DISTRIBUTION WIDTH CV 14.4 % (11.5-14.5); RED CELL DISTRIBUTION WIDTH SD 46.9 fL (36.4-46.3); WHITE BLOOD COUNT 9.75 K/uL (4.8-10.8)
[2017-11-05] MEDS: KETOROLAC TROMETHAMINE 15 MG/ML VIAL IV. PRN (09:54)
[2017-11-05] MEDS: AMOXICILLIN/CLAVULANATE TAB 875 MG TAB PO SCH ×2 (10:47→16:35)
[2017-11-05] MEDS: ONDANSETRON INJ 2 MG/ML 2 ML VIAL IV PRN (10:47)
--- NOTE | 2017-11-05 10:58 | Progress Note ---
Medicine Progress Note Date & Time of Visit: Nov 05, 2017 at 10:25. Subjective Pt was seen and examined Sitting in chair with no distress with friend present Asked for permission before talking to her since friend present Pt verbally gave permission to talk in the present of her friend Pt said that her pain seems to improved Denies any fever, chest pain, palpitation and SOB Objective Last 8 Hrs Date Time Temp Pulse Resp B/P (MAP) Pulse Ox O2 Delivery O2 Flow Rate FiO2 11/05/17 06:58 36.4 74 16 112/71 (85) 95 Room Air Physical Exam: General- No acute distress Head- atraumatic Eyes- PERRL, EOMI ENT- oropharynx clear Neck- supple, no JVD Lungs- clear to auscultation Heart- regular rhythm; no murmur Abdomen- normal bowel sounds, soft Extremities- No calf tenderness, right tight erythema that is improve,opening area in the right tight with no purulent drainage Neuro- alert, oriented x 3; PERRL, EOMI Skin- warm & dry Laboratory Results: Last 24 Hours Test 11/05/17 08:01 White Blood Count 9.75 K/uL Red Blood Count 3.34 M/uL Hemoglobin 9.1 g/dL Hematocrit 29.7 % Mean Corpuscular Volume 88.9 fL Mean Corpuscular Hemoglobin 27.2 pg Mean Corpuscular Hemoglobin Concent 30.6 g/dl Platelet Count 472 K/uL Mean Platelet Volume 8.9 fL Neutrophils (%) (Auto) 60.0 % Lymphocytes (%) (Auto) 25.3 % Monocytes (%) (Auto) 11.5 % Eosinophils (%) (Auto) 1.8 % Basophils (%) (Auto) 0.5 % Neutrophils # (Auto) 5.84 K/uL Lymphocytes # (Auto) 2.47 K/uL Monocytes # (Auto) 1.12 K/uL Eosinophils # (Auto) 0.18 K/uL Basophils # (Auto) 0.05 K/uL RDW Standard Deviation 46.9 fL RDW Coefficient of Variation 14.4 % Immature Granulocyte % (Auto) 0.9 % Immature Granulocyte # (Auto) 0.09 K/uL Assessment & Plan Cellulitis in the R thigh Present on admission with right tight pain and swelling Right Hip u/s showed a right lateral hip/proximal thigh there is a 12.7 x 5.9 x 3.4 cm multiseptated complex subcutaneous fluid collection. NO DVT on Doppler of LE Wound culture on 11/01 showed gram positive cocci S/P Ultrasound-guided diagnostic aspiration of 20 cc from the complex superficial collection in the right lateral thigh done yesterday Corynebacterium species grew on fluid cx that was sent from the aspiration, with low count, possible contamination Blood cx no growth Cefepime and Vanco Discontinued Starting on PO abx with Augmentin and doxy Ortho on board Dr. Ziegler orthopedics ([phone]) to follow up with patient Case discussed with Dr. Ziegler, and OK to discharge home for ortho standpoint Follow up with ortho in 2 weeks Anemia Hgb improved to 9.1 Stable Chronic obstructive pulmonary disease Stable Chronic pain On fentanyl patch baclofen and Flexeril Stable Hx PSVT sp ablation Rate controlled Tobacco abuse counseling on smoking. DVT px On SCDs CODE STATUS Full code. Disposition Will discharge today Consultants: Ortho Current Inpatient Medications: Current Inpatient Medications Medications (Trade) Dose Ordered Sig/Jennifer Route Start Time Stop Time Status Last Admin Dose Admin Aripiprazole (Abilify Tab) 30 mg QAM PO 11/01/17 09:00 12/01/17 08:59 11/05/17 08:16 30 MG Baclofen (Lioresal Tab) 10 mg TID PO 11/01/17 09:00 12/01/17 08:59 11/05/17 08:15 10 MG Cetirizine HCl (zyrTEC TAB) 10 mg QAM PO 11/01/17 09:00 12/01/17 08:59 11/05/17 08:18 10 MG Cyclobenzaprine HCl (Flexeril Tab) 10 mg TID PRN PO 10/31/17 22:30 11/30/17 22:29 11/03/17 18:56 10 MG Famotidine (Pepcid Tab) 40 mg DAILY PO 11/01/17 09:00 12/01/17 08:59 11/05/17 08:18 40 MG Gabapentin (Neurontin Cap) 300 mg TID PO 11/01/17 09:00 12/01/17 08:59 11/05/17 08:15 300 MG Acetaminophen/ Hydrocodone Bitart ([place] 10/325 Tab) 1 tab Q4H PRN PO 10/31/17 22:30 11/14/17 22:29 11/05/17 08:31 1 TAB Lamotrigine (Lamictal Tab) 150 mg BID PO 11/01/17 09:00 12/01/17 08:59 11/05/17 08:19 150 MG Lorazepam (Ativan Tab) 1 mg BID PRN PO 10/31/17 22:30 11/30/17 22:29 11/04/17 09:53 1 MG Metoclopramide HCl (Reglan Tab) 5 mg ACHS PO 11/01/17 07:00 12/01/17 06:59 11/05/17 08:16 5 MG Metoprolol Succinate (Toprol Xl Tab) 25 mg QAM PO 11/01/17 09:00 12/01/17 08:59 11/05/17 08:20 25 MG Montelukast Sodium (Singulair Tab) 10 mg HS PO 11/01/17 21:00 12/01/17 20:59 11/04/17 21:30 10 MG Multivitamins (Multivitamin Tab) 1 tab QAM PO 11/01/17 09:00 12/01/17 08:59 11/05/17 08:14 1 TAB Multivitamins/ Minerals (Multivitamin W/ Minerals Tab) 1 tab DAILY PO 11/01/17 09:00 12/01/17 08:59 11/05/17 08:14 1 TAB Buspirone HCl (Buspar Tab) 20 mg BID PO 11/01/17 09:00 12/01/17 08:59 11/05/17 08:15 20 MG Ferrous Sulfate (Feosol Tab) 325 mg QAM PO 11/01/17 09:00 12/01/17 08:59 11/05/17 08:15 325 MG Polyethylene (Miralax Powder Packet) 17 gm DAILY PRN PO 10/31/17 22:30 11/30/17 22:29 Acetaminophen (Tylenol Tab) 650 mg Q4H PRN PO 10/31/17 22:30 11/30/17 22:29 11/05/17 01:15 650 MG Hydromorphone HCl (Dilaudid Inj) 0.5 mg Q8H PRN IV 10/31/17 23:45 11/14/17 22:59 Ketorolac Tromethamine (Toradol Inj) 15 mg Q6H PRN IV. 10/31/17 23:45 11/05/17 23:44 11/05/17 09:54 15 MG Fentanyl (Duragesic Patch) 25 mcg Q3D TD 11/01/17 09:00 11/15/17 08:59 11/04/17 09:43 25 MCG Miscellaneous (Fentanyl Patch Remove & Waste) 1 ea Q3D N/A 11/01/17 08:59 12/01/17 08:58 11/04/17 08:59 1 EA Miscellaneous Information (Check Fentanyl Patch Placement) 1 ea QS N/A 11/01/17 00:00 12/01/17 00:00 11/05/17 08:17 1 EA Zolpidem Tartrate (Ambien Tab) 5 mg HSZ PRN PO 11/01/17 00:45 12/01/17 00:44 11/04/17 23:23 5 MG Carbamazepine (Tegretol-Xr) 100 mg BID PO 11/01/17 09:00 12/01/17 08:59 11/05/17 08:20 100 MG Menthol (Nice Brown) 1 brown PRN PRN PO 11/01/17 13:30 12/01/17 13:29 Fluticasone Propionate (Flonase Nasal [place]) 2 sprays BID NA 11/03/17 21:00 12/03/17 20:59 11/05/17 08:16 2 SPRAYS Lubiprostone (Amitiza) 24 mcg BID PO 11/03/17 21:00 12/03/17 20:59 11/05/17 08:17 24 MCG Ondansetron HCl (Zofran Inj) 4 mg Q6H PRN IV 11/04/17 18:45 12/04/17 18:44 11/04/17 18:50 4 MG Doxycycline Hyclate (Vibramycin Cap) 100 mg BID PO 11/05/17 09:00 11/15/17 08:59 Amoxicillin/ Clavulanate Potassium (Augmentin Tab) 875 mg BIDM PO 11/05/17 08:30 11/15/17 08:29
[2017-11-05] MEDS ORDERED: AMOX1TAB43 PO (11:06)
[2017-11-05] MEDS ORDERED: DXY100 PO (11:06)
--- NOTE | 2017-11-05 11:13 | Discharge Instructions ---
Discharge Instructions Date of Service Nov 05, 2017. Admission Reason for Admission: Possible Abscess Of Right Hip Discharge Discharge Diagnosis / Problem: Right tigh cellulitis/ Anemia Discharge Goals Goal(s): Decrease discomfort, Improve function, Improve disease control Activity Recommendations Activity Limitations: resume your previous activity (as tolerated) . Instructions / Follow-Up Instructions / Follow-Up Follow up with Dr. Morelos on 11/10 @ 1:05 pm Follow up with Ortho Dr. Ziegler in 2 weeks ( Please call to schedule the appointment) Complete course of antibiotic with Doxycycline and Augmentin Continue PT/OT ( Home singh care arranged by family caseworker) Fall precaution Daily wound care and keep area clean Current Hospital Diet Patient's current hospital diet: Regular Diet Discharge Diet Recommended Diet: Regular Diet Pending Studies Studies pending at discharge: no Medical Emergencies . Who to Call and When: Medical Emergencies: If at any time you feel your situation is an emergency, please call 911 immediately. . Non-Emergent Contact Non-Emergency issues call your: Primary Care Provider Call Non-Emergent contact if: you have a fever, wound has increased drainage, wound has increased redness, wound has increased pain, you have any medication questions . . "Provider Documentation" section prepared by Gage Miranda. . VTE Core Measure Inpt VTE Proph given/why not?: SCD's
[2017-11-05 12:13] VITALS: BP 112/71; PULSE 74; TEMP 36.4; O2SAT 95
[2017-11-05] MEDS ORDERED: NURSING VERBAL MED ORDER ONE (14:30)
[2017-11-05] MEDS ORDERED: MAGNESIUM HYDROXIDE SUSP 30 ML UDC PO ONE (14:45)
[2017-11-05 15:41] VITALS: BP 117/76; PULSE 77; TEMP 36.8; O2SAT 94
[2017-11-06] MEDS ORDERED: VANCOMYCIN TROUGH SCH (03:30)
--- NOTE | 2017-11-09 18:44 | Discharge Summary ---
Discharge Summary Date of Service Nov 09, 2017. Discharge Summary Admission Date: Oct 31, 2017 at 22:20 Discharge Date: Nov 05, 2017 Discharge Disposition: Home with services Principal Diagnosis: Right thigh cellulitis Secondary Diagnoses/Problems: Chronic obstructive pulmonary disease Anemia Hx PSVT sp ablation Chronic pain Tobacco abuse Procedures: S/P Ultrasound-guided diagnostic aspiration of 20 cc from the complex superficial collection in the right lateral thigh R VENOUS DOPP LOWER EXT UNILAT CLINICAL HISTORY: 57 years-old Female presenting with RLE swelling. TECHNIQUE: Real-time grayscale and color and spectral Doppler ultrasound imaging of the veins of the right lower extremity was performed. Compression and augmentation were also utilized. COMPARISON: None. FINDINGS: Right: Common femoral vein: Patent. Femoral vein: Patent. Greater saphenous vein: Patent. Popliteal vein: Patent. Calf veins: Patent. Other: Prominent right inguinal lymph nodes which maintain normal fatty ameena. Some demonstrate mild cortical thickening. Subcutaneous edema noted in the popliteal fossa and calf. IMPRESSION: 1. No evidence of deep venous thrombosis. 2. Subcutaneous edema. 3. Prominent likely reactive right inguinal lymph nodes. Electronically signed by: Iggy Girard M.D. 11/01/2017 6:41 AM Dictated Date/Time: 11/01/2017 6:40 AM Consultations: Ortho Medication Reconciliation New Medications: Amoxicillin & Pot Clavulanate (Amoxicillin/Clavulanate P) 1 Tab Tab 875 MG PO BIDM for 9 Days, TAB Doxycycline Hyclate (Doxycycline Hyclate) 100 Mg Cap 100 MG PO BID for 9 Days, #18 CAP Continued Medications: Albuterol (Ventolin Hfa) 60 Puffs/5400 Mcg Aers 90 MCG INH PRN for Wheezing Aripiprazole (Abilify) 30 Mg Tab 30 MG PO QAM, TAB Baclofen (Lioresal) 10 Mg Tab 10 MG PO TID, TAB Buspirone Hcl (Buspirone Hcl) 10 Mg Tab 20 MG PO BID, TAB Calcium Carbonate-Vitamin D (Oscal 500/200 D-3) 1 Tab Tab 1 TAB PO DAILY Carbamazepine (Carbatrol Er) 100 Mg Cap 100 MG PO BID Cetirizine (Zyrtec) 10 Mg Tab 10 MG PO QAM, TAB Cyclobenzaprine Hcl (Flexeril) 10 Mg Tab 10 MG PO TID PRN for Muscle Spasms, TAB Famotidine (Pepcid) 40 Mg Tab 40 MG PO DAILY, TAB Fentanyl (Duragesic) 25 Mcg/Hr Dis 25 MCG TD Q72H Ferrous Sulfate (Ferrous Sulfate) 325 Mg Tab 325 MG PO QAM Formoterol Fumarate (Perforomist) 20 Mcg/2 Ml Nebu 20 MCG INH PRN for Wheezing Furosemide (Lasix) 20 Mg Tab 20 MG PO DAILY PRN for SWELLING, TAB Gabapentin (Neurontin) 300 Mg Cap 300 MG PO TID, CAP Hydrocodone-Acetaminophen (Hydrocodone Bitartrate/AC 10-325 mg) 1 Tab Tab 1 TAB PO BID PRN for Pain, #14 Lamotrigine (Lamictal) 150 Mg Tab 150 MG PO BID Lorazepam (Lorazepam) 1 Mg Tab 1 MG PO BID PRN for Anxiety for 30 Days, #60 TAB Lubiprostone (Amitiza) 24 Mcg Cap 24 MCG PO BID, CAP Metoclopramide Hcl (Reglan) 5 Mg Tab 5 MG PO ACHS, TAB Metoprolol Succinate (Toprol Xl) 25 Mg Tabcr 25 MG PO QAM, #30 TAB Montelukast Sodium (Singulair) 10 Mg Tab 10 MG PO HS, TAB Multivitamin (Multivitamin) Tab 1 TAB PO QAM, TAB Ocuvite Preservision (Ocuvite Preservision) 1 Tab Tab 1 TAB PO DAILY, TAB Ondansetron Hcl (Zofran) 8 Mg Tab 8 MG PO Q6H PRN for Nausea, TAB Polyethylene Glycol 3350 (Miralax) 1 Pow Pow 17 GM PO DAILY PRN for PRN, #255 GM Potassium Chloride (Micro-K Ext Rel) 10 Meq Capcr 10 MEQ PO DAILY PRN for PRN, CAP ONLY TAKES WHEN TAKING LASIX FOR SWELLING Sulindac (Sulindac) 150 Mg Tab 150 MG PO BID Discontinued Medications: Cephalexin Monohydrate (Keflex) 500 Mg Cap 500 MG PO QID, CAP Ciprofloxacin Hcl (Cipro) 500 Mg Tab 500 MG PO BID Admission Information HPI (per Admitting provider): CHIEF COMPLAINT: Right hip pain, drainage, swelling. HISTORY OF PRESENT ILLNESS: History obtained from patient and records. Medical history significant for PSVT sp ablation, COPD, ongoing tobacco abuse, gastroparesis, anxiety/mood disorder, chronic pain on Fentanyl patch, chronic HCV status post treatment, history of MRSA, history of C. dif, past alcohol abuse. Recent confinement under orthopedic service about 2 weeks ago for a right hip abscess. Debridement done on the abscess in the OR. CS grew Corynebacterium. Patient discharged on Keflex. Patient compliant with medications. Patient noted increasing achy right hip pain and swelling post discharge. [place] removed on follow-up with surgeon last week. Yesterday, the patient noted R hip wound dehiscence with purulent bloody drainage, some chills, no fever, increasing pain. Right hip and thigh swelling noted to be progressing down the R lower leg. On-call web content specialist prescribed Cipro. Loose stools noted after first dose of Cipro. No abdominal pain. No unusual chest pain or shortness breath. Patient brought to Emergency Room for worsening symptoms. Right hip ultrasound right lateral proximal thigh, complex subcutaneous fluid collection on the right lateral hip and proximal thigh (abscess versus hematoma ). Px received vancomycin and ceftriaxone. Physical Exam (per Admitting): PHYSICAL EXAMINATION: VITAL SIGNS: Blood pressure was noted to be 110/70, pulse rate 90, RR 18, temperature 36.7, sats 96 on room air. GENERAL: Noted to be slightly uncomfortable, no respiratory distress. SKIN: Pallor and warm. HEENT: Pale palpebral conjunctivae. No ptosis. Dry mucosa. NECK: Supple. No tenderness. CHEST: Decreased breath sounds. No tenderness. HEART: Regular rate and rhythm, no murmur. ABDOMEN: Soft, nontender. EXTREMITIES: Tender and fluctuant swelling on the right upper thigh, RLE swelling, minimal tenderness. No other gross deformities NEUROLOGIC: Coherent. No gross focality. Hospital Course Cellulitis in the R thigh Present on admission with right tight pain and swelling Right Hip u/s showed a right lateral hip/proximal thigh there is a 12.7 x 5.9 x 3.4 cm multiseptated complex subcutaneous fluid collection. NO DVT on Doppler of LE Wound culture on 11/01 showed gram positive cocci S/P Ultrasound-guided diagnostic aspiration of 20 cc from the complex superficial collection in the right lateral thigh done yesterday Corynebacterium species grew on fluid cx that was sent from the aspiration, with low count, possible contamination Blood cx no growth Cefepime and Vanco Discontinued Starting on PO abx with Augmentin and doxy Ortho on board Dr. Ziegler [facility]oped[facility] ([phone]) to follow up with patient Case discussed with Dr. Ziegler, and OK to discharge home for ortho standpoint Follow up with ortho in 2 weeks Anemia Hgb improved to 9.1 Stable Chronic obstructive pulmonary disease Stable Chronic pain On fentanyl patch baclofen and Flexeril Stable Hx PSVT sp ablation Rate controlled Tobacco abuse counseling on smoking. DVT px On SCDs CODE STATUS Full code. Disposition Will discharge today Total time spent on discharge = 35 minutes This includes examination of the patient, discharge planning, medication reconciliation, and communication with other providers. Discharge Instructions Discharge Instructions Date of Service Nov 05, 2017. Admission Reason for Admission: Possible Abscess Of Right Hip Discharge Discharge Diagnosis / Problem: Right thigh cellulitis/ Anemia Discharge Goals Goal(s): Decrease discomfort, Improve function, Improve disease control Activity Recommendations Activity Limitations: resume your previous activity (as tolerated) . Instructions / Follow-Up Instructions / Follow-Up Follow up with Dr. Morelos on 11/10 @ 1:05 pm Follow up with Ortho Dr. Ziegler in 2 weeks ( Please call to schedule the appointment) Complete course of antibiotic with Doxycycline and Augmentin Continue PT/OT ( Home singh care arranged by home health care case manager) Fall precaution Daily wound care and keep area clean Current Hospital Diet Patient's current hospital diet: Regular Diet Discharge Diet Recommended Diet: Regular Diet Pending Studies Studies pending at discharge: no Medical Emergencies . Who to Call and When: Medical Emergencies: If at any time you feel your situation is an emergency, please call 911 immediately. . Non-Emergent Contact Non-Emergency issues call your: Primary Care Provider Call Non-Emergent contact if: you have a fever, wound has increased drainage, wound has increased redness, wound has increased pain, you have any medication questions . . "Provider Documentation" section prepared by Gage Miranda. . VTE Core Measure Inpt VTE Proph given/why not?: SCD's Additional Copies To Tyson Morelos M.D.
[2017-11-15] MEDS ORDERED: LAMO150T PO (09:45)
[2017-11-15] MEDS ORDERED: BUSP-8 PO (09:45)
[2017-12-13] MEDS ORDERED: HYDR-4383 PO ×2 (09:13→09:15)
[2017-12-13] MEDS ORDERED: BNT20 PO (09:27)
[2017-12-21] MEDS ORDERED: FENT25DI10 TD (18:02)
== END 2017-11-05 18:00 | disposition home health service (06) | DRG 920 ==
LOC: C.EDB 19:00 → C.MSN 22:20 → ENRESERV 23:05
PROVIDERS: ADMIT Hospitalist; ATTEND Internal Medicine
PROC: 0J9L3ZX Drainage of Right Upper Leg Subcutaneous Tissue and Fascia, Percutaneous Approach, Diagnostic (ICD-10-PCS; principal; 2017-11-02)
DX: M96.840 Postprocedural hematoma of a musculoskeletal structure following a musculoskeletal system procedure (principal); L03.115 Cellulitis of right lower limb; F31.9 Bipolar disorder, unspecified; F10.21 Alcohol dependence, in remission; J44.9 Chronic obstructive pulmonary disease, unspecified; B18.2 Chronic viral hepatitis C; K31.84 Gastroparesis; F17.200 Nicotine dependence, unspecified, uncomplicated; D64.9 Anemia, unspecified; R19.7 Diarrhea, unspecified; Y83.8 Other surgical procedures as the cause of abnormal reaction of the patient, or of later complication, without mention of misadventure at the time of the procedure; Y92.019 Unspecified place in single-family (private) house as the place of occurrence of the external cause; Z86.14 Personal history of Methicillin resistant Staphylococcus aureus infection

== ENCOUNTER 2017-11-15 03:03 | Inpatient (IN) | payer OTHER ==
[2017-11-15] VITALS (9 sets, daily range): BP systolic 120–160; BP diastolic 74–91; PULSE 74–110; TEMP 36.7–37.5; O2SAT 95–99; BMI 26.2
[~2017-11-15] VITALS: Ht 157.5 cm; Wt 64.5 kg
[~2017-11-15 03:03] MED LIST changes: +AMOX1TAB43 PO; -AMT24 PO; -ARIP30TA3 PO; -CALC200T PO; +CARB1CAP2 PO; -CETI10TA84 PO; -CYCL10TA6 PO; +DXY100 PO; -FURO-85 PO; -GABA-113 PO; -METO1TAB54 PO; -METO25TA3 PO; -MONT1TAB3 PO; -MULT-190 PO; -MULT-506 PO; +ONDA-170 PO; -ONDA8TAB6 PO; -POLY335019 PO; -POTA10CA28 PO; -PRFINS INH; -PRVHFAIN INH
[2017-11-15 04:20] LABS: BASO % 0.2 %; BASO ABS # 0.02 K/uL (0-0.2); HEMOGLOBIN 10.8 g/dL (12.0-16.0); IG# 0.04 K/uL (0.00-0.02); LYMPH % 18.2 %; LYMPH ABS # 1.82 K/uL (1.2-3.4); MEAN CORPUSCULAR HEMOGLOBIN 27.6 pg (25-34); MEAN CORPUSCULAR HGB CONC 31.8 g/dl (32-36); MEAN PLATELET VOLUME 8.5 fL (7.4-10.4); MONO % 9.5 %; MONO ABS # 0.95 K/uL (0.11-0.59); NEUT % 71.7 %; NEUT ABS # 7.15 K/uL (1.4-6.5); PLATELET COUNT 506 K/uL (130-400); RED CELL DISTRIBUTION WIDTH CV 14.6 % (11.5-14.5); RED CELL DISTRIBUTION WIDTH SD 45.9 fL (36.4-46.3); WHITE BLOOD COUNT 9.98 K/uL (4.8-10.8)
[2017-11-15 04:33] LABS: INR 1.1 (0.9-1.1)
[2017-11-15 04:41] LABS: ALBUMIN 3.3 gm/dl (3.4-5.0); ALT/SGPT 13 U/L (12-78); AST/SGOT 15 U/L (15-37); BLOOD UREA NITROGEN 16 mg/dl (7-18); CALCIUM 9.8 mg/dl (8.5-10.1); CARBON DIOXIDE 26 mmol/L (21-32); CREATININE 0.74 mg/dl (0.60-1.20); GLUCOSE 121 mg/dl (70-99); LIPASE 91 U/L (73-393); POTASSIUM 4.4 mmol/L (3.5-5.1); SODIUM 130 mmol/L (136-145)
[2017-11-15 04:48] LABS: ALKALINE PHOSPHATASE 89 U/L (45-117); TOTAL PROTEIN 8.4 gm/dl (6.4-8.2)
[2017-11-15] MEDS ORDERED: SODIUM CHLORIDE 0.9% 1000ML 1,000 ML IV STA (05:07)
[2017-11-15] MEDS ORDERED: ONDANSETRON INJ 2 MG/ML 2 ML VIAL IV STA ×2 (05:07→07:25)
[2017-11-15] MEDS ORDERED: FENTANYL CITRATE INJ 50 MCG/1 ML 2 ML VIAL IV STA ×2 (05:07→06:18)
--- NOTE | 2017-11-15 05:15 | EMERGENCY ROOM VISIT NOTE ---
History Report prepared by Tonya: Eric Ernst Under the Supervision of: Dr. Blaire Valenzuela D.O. First contact with patient: 03:11 Chief Complaint: ABDOMINAL PAIN Stated Complaint: SHARP PAINS IN STOMACH AND BACK History of Present Illness The patient is a 57 year old female who presents to the Emergency Room with complaints of constant abdominal pain beginning yesterday. The patient's pain is worse on the right. She also complains of abdominal bloating, and back pain. Her symptoms began following an episode of nausea, shakiness, weakness, and dizziness after eating. The patient denies eating anything abnormal. She denies any modifying factors. She has not been able to pass gas today. Her last normal bowel movement was this morning. The patient denies recent changes to bowel movements, or urination. She denies any medication changes. She denies vomiting. The patient has a history a lower bowel obstruction. She notes that she was recently seen in the ED for cellulitis and is finishing up her course of antibiotics today. Her antibiotics include Doxycycline and Augmentin. Source of History: patient Onset: Yesterday Position: abdomen Timing: constant Modifying Factors (Worsening): other (none) Modifying Factors (Relieving): other (none) Associated Symptoms: + nausea, + back pain, + weakness (episode), No vomiting Note: Additional symptoms: abdominal bloating, and an episode of dizziness and shakiness. Review of Systems See HPI for pertinent positives & negatives. A total of 10 systems reviewed and were otherwise negative. Past Medical & Surgical Medical Problems: (1) Abscess of right hip (2) Anxiety (3) Bipolar disorder (4) Bipolar Disorder, Unspecified (5) Cervicalgia (6) Chronic alcoholism in remission (7) Chronic back pain (8) Chronic headache (9) Chronic hepatitis C (10) Chronic obstructive lung disease (11) Chronic urinary urge incontinence (12) Closed head injury (13) Depression (14) Gastroesophageal reflux disease (15) Gastroparesis (16) History of aspiration pneumonia (17) History of Clostridium difficile colitis (18) History of drug abuse (19) History of sepsis (20) History of supraventricular tachycardia (21) Incisional abscess (22) Lumbago (23) Osteoarthritis (24) Osteoarthritis of hip (25) Osteoporosis (26) Pancreatitis (27) PTSD (post-traumatic stress disorder) (28) seroma Right hip (29) Small bowel obstruction (30) SVT (supraventricular tachycardia) (31) Ulnar neuropathy Surgical Problems: (1) Bladder Repair (2) H/O colonoscopy (3) H/O cystoscopy (4) H/O esophagogastroduodenoscopy (5) H/O sinus surgery (6) History of hip surgery (7) Right Tibia/Fibula Repair (8) S/P cervical spinal fusion (9) s/p colonoscopy (10) s/p cystoscopy (11) s/p EGD (12) S/p esophagogastric fundoplasty (13) s/p laparoscopic fundoplication hiatal hernia (14) S/p lumbar decompression/fusion (15) S/P ORIF (open reduction internal fixation) fracture (16) s/p reconstruction hip socket (17) s/p tonsillectomy (18) S/P tonsillectomy and adenoidectomy (19) s/p tubal ligation (20) S/P tubal ligation Family History Diabetes mellitus FATHER GRANDMOTHER FH: colon cancer GRANDMOTHER Gallbladder disease Heart disease Hypertension FATHER MOTHER Kidney disease Kidney stones Social History Smoking Status: Never Smoker Alcohol Use: none Drug Use: other Marital Status: Housing Status: lives with family Occupation Status: disabled Current/Historical Medications Scheduled Aripiprazole (Abilify), 30 MG PO QAM Baclofen (Lioresal), 10 MG PO TID Buspirone Hcl (Buspirone Hcl), 10 MG PO BID Calcium Carbonate-Vitamin D (Oscal 500/200 D-3), 1 TAB PO DAILY Cetirizine (Zyrtec), 10 MG PO QAM Famotidine (Pepcid), 40 MG PO DAILY Fentanyl (Duragesic), 25 MCG TD Q72H Gabapentin (Neurontin), 300 MG PO TID Lamotrigine (Lamictal), 125 MG PO BID Lubiprostone (Amitiza), 24 MCG PO BID Metoclopramide Hcl (Reglan), 5 MG PO ACHS Metoprolol Succinate (Toprol Xl), 25 MG PO QAM Montelukast Sodium (Singulair), 10 MG PO HS Multivitamin (Multivitamin), 1 TAB PO QAM Ocuvite Preservision (Ocuvite Preservision), 1 TAB PO DAILY Sulindac (Sulindac), 150 MG PO BID Scheduled PRN Albuterol (Ventolin Hfa), 90 MCG INH for Wheezing Cyclobenzaprine Hcl (Flexeril), 10 MG PO TID PRN for Muscle Spasms Formoterol Fumarate (Perforomist), 20 MCG INH for Wheezing Furosemide (Lasix), 20 MG PO DAILY PRN for SWELLING Lorazepam (Lorazepam), 1 MG PO BID PRN for Anxiety Ondansetron Hcl (Zofran), 8 MG PO Q6H PRN for Nausea Polyethylene Glycol 3350 (Miralax), 17 GM PO DAILY PRN for PRN Potassium Chloride (Micro-K Ext Rel), 10 MEQ PO DAILY PRN for PRN Allergies Coded Allergies: Hydroxyzine (Verified Allergy, Severe, THROAT CONSTRICTS/CAN NOT VOID, ) Clarithromycin (Verified Adverse Reaction, Intermediate, vomiting, ) Lisinopril (Verified Adverse Reaction, Mild, Cough, 11/15/17) Reported by PT. Chlorpromazine (Verified Adverse Reaction, Unknown, LIGHTHEADED DIZZY, ) Physical Exam Vital Signs Date Time Temp Pulse Resp B/P (MAP) Pulse Ox O2 Delivery O2 Flow Rate FiO2 11/15/17 09:00 86 20 153/90 97 Room Air 11/15/17 08:15 86 20 154/90 97 Nasal Cannula 2.0 11/15/17 07:15 93 20 155/97 98 11/15/17 06:25 95 Nasal Cannula 2.0 11/15/17 06:23 101 16 145/101 88 Room Air 11/15/17 05:06 90 18 157/97 96 Room Air 11/15/17 03:07 37.4 104 18 133/89 96 Room Air Physical Exam GENERAL: alert, well appearing, well nourished, no distress, non-toxic EYE EXAM: normal conjunctiva, PERRL and EOM's grossly intact OROPHARYNX: no exudate, no erythema, lips, buccal mucosa, and tongue normal and mucous membranes are moist NECK: supple, no nuchal rigidity, no adenopathy, non-tender LUNGS: Clear to auscultation. Normal chest wall mechanics HEART: no murmurs, S1 normal and S2 normal ABDOMEN: abdomen soft, normo-active bowel sounds, no masses, no rebound or guarding. Dull to percussion. Mild tenderness to RLQ. BACK: Back is symmetrical on inspection and there is no deformity, no midline tenderness, no CVA tenderness. SKIN: no rashes and no bruising UPPER EXTREMITIES: upper extremities are grossly normal. LOWER EXTREMITIES: No pitting edema. NEURO EXAM: Normal sensorium, cranial nerves II-XII grossly intact, normal speech, no gross weakness of arms, no gross weakness of legs. Medical Decision & Procedures ER Provider Diagnostic Interpretation: Two View Abdominal X-ray interpreted by me: Scattered air fluid levels. Mildly dilated loops of bowel. No free air. Orthopedic hardware noticed. Laboratory Results 11/15/17 03:57 Red Blood Count 3.91, Mean Corpuscular Volume 87.0, Mean Corpuscular Hemoglobin 27.6, Mean Corpuscular Hemoglobin Concent 31.8, Mean Platelet Volume 8.5, Neutrophils (%) (Auto) 71.7, Lymphocytes (%) (Auto) 18.2, Monocytes (%) (Auto) 9.5, Eosinophils (%) (Auto) 0.0, Basophils (%) (Auto) 0.2, Neutrophils # (Auto) 7.15, Lymphocytes # (Auto) 1.82, Monocytes # (Auto) 0.95, Eosinophils # (Auto) 0.00, Basophils # (Auto) 0.02 11/15/17 03:57 Test 11/15/17 03:57 White Blood Count 9.98 K/uL (4.8-10.8) Red Blood Count 3.91 M/uL (4.2-5.4) Hemoglobin 10.8 g/dL (12.0-16.0) Hematocrit 34.0 % (37-47) Mean Corpuscular Volume 87.0 fL (80-100) Mean Corpuscular Hemoglobin 27.6 pg (25-34) Mean Corpuscular Hemoglobin Concent 31.8 g/dl (32-36) Platelet Count 506 K/uL (130-400) Mean Platelet Volume 8.5 fL (7.4-10.4) Neutrophils (%) (Auto) 71.7 % Lymphocytes (%) (Auto) 18.2 % Monocytes (%) (Auto) 9.5 % Eosinophils (%) (Auto) 0.0 % Basophils (%) (Auto) 0.2 % Neutrophils # (Auto) 7.15 K/uL (1.4-6.5) Lymphocytes # (Auto) 1.82 K/uL (1.2-3.4) Monocytes # (Auto) 0.95 K/uL (0.11-0.59) Eosinophils # (Auto) 0.00 K/uL (0-0.5) Basophils # (Auto) 0.02 K/uL (0-0.2) RDW Standard Deviation 45.9 fL (36.4-46.3) RDW Coefficient of Variation 14.6 % (11.5-14.5) Immature Granulocyte % (Auto) 0.4 % Immature Granulocyte # (Auto) 0.04 K/uL (0.00-0.02) Prothrombin Time 11.2 SECONDS (9.0-12.0) Prothromb Time International Ratio 1.1 (0.9-1.1) Anion Gap 7.0 mmol/L (3-11) Est Creatinine Clear Calc Drug Dose 74.2 ml/min Estimated GFR () 104.2 Estimated GFR (Non- 89.9 BUN/Creatinine Ratio 22.0 (10-20) Calcium Level 9.8 mg/dl (8.5-10.1) Total Bilirubin 0.3 mg/dl (0.2-1) Aspartate Amino Transf (AST/SGOT) 15 U/L (15-37) Alanine Aminotransferase (ALT/SGPT) 13 U/L (12-78) Alkaline Phosphatase 89 U/L (45-117) Troponin I < 0.015 ng/ml (0-0.045) Total Protein 8.4 gm/dl (6.4-8.2) Albumin 3.3 gm/dl (3.4-5.0) Globulin 5.1 gm/dl (2.5-4.0) Albumin/Globulin Ratio 0.6 (0.9-2) Lipase 91 U/L (73-393) Chemistry Specimen Hemolysis Laboratory results per my review. Medications Administered Medications (Trade) Dose Ordered Sig/Jennifer Route Start Time Stop Time Status Last Admin Dose Admin Sodium Chloride 1,000 ml @ 125 mls/hr Q8H STAT IV 11/15/17 05:07 11/15/17 11:17 DC 11/15/17 05:14 125 MLS/HR Fentanyl Citrate (Fentanyl Inj) 50 mcg NOW STAT IV 12/31/17 05:07 11/15/17 05:09 DC 11/15/17 05:13 50 MCG Ondansetron HCl (Zofran Inj) 4 mg NOW STAT IV 11/15/17 05:07 11/15/17 05:09 DC 11/15/17 05:13 4 MG Fentanyl Citrate (Fentanyl Inj) 50 mcg NOW STAT IV 11/15/17 06:18 11/15/17 06:19 DC 11/15/17 06:22 50 MCG Morphine Sulfate (MoRPHine SULFATE INJ) 4 mg NOW STAT IV 11/15/17 07:12 11/15/17 07:13 DC 11/15/17 07:25 4 MG Ondansetron HCl (Zofran Inj) 4 mg NOW STAT IV 11/15/17 07:25 11/15/17 07:26 DC 11/15/17 07:47 4 MG Fentanyl Citrate (Fentanyl Inj) 50 mcg NOW ONCE IV 11/15/17 08:15 11/15/17 08:16 DC 11/15/17 08:19 50 MCG Hydromorphone HCl (Dilaudid Inj) 2 mg NOW STAT IV 11/15/17 08:51 11/15/17 08:52 DC 11/15/17 09:00 2 MG ECG Indication: abdominal pain Rate (beats per minute): 82 Rhythm: normal sinus Findings: T-wave inversion (lead 3), no acute ischemic change, no ectopy, other (Normal axis. Normal intervals. ) ED Course 0317: The patient was evaluated in room B3B. A complete history and physical exam was performed. 0507: Ordered Zofran Inj 4 mg IV, Fentanyl Inj 4 mg IV, Sodium Chloride 1000 ml @ 125 mls/hr IV. 0515: I reassessed the patient. She is resting comfortably. 0730: The patient was signed out to Dr. Marinelli pending CT results. VS stable at this time. Symptoms controlled with meds here. Medical Decision Differential diagnosis: Etiologies such as appendicitis, diverticulitis, PUD, biliary pathology, UTI, pancreatitis, obstruction, mesenteric ischemia, aortic pathology, infections, inflammatory bowel disease, renal colic, as well as others were entertained. Medication Reconcilliation Current Medication List: was personally reviewed by me Blood Pressure Screening Patient's blood pressure: Elevated blood pressure Blood pressure disposition: Elevated BP felt to be situational Impression Primary Impression: Abdominal pain Additional Impressions: Nausea Small bowel obstruction Scribe Attestation The scribe's documentation has been prepared under my direction and personally reviewed by me in its entirety. I confirm that the note above accurately reflects all work, treatment, procedures, and medical decision making performed by me. Departure Information Dispostion Still a Patient (Signed out to Dr. Marinelli) Prescriptions Lamotrigine (Lamictal) 150 Mg Tab 125 MG PO BID, #30 Prov: Yakov Medina MD 11/15/17 Buspirone Hcl (BUSPIRONE HCL) 10 Mg Tab 10 MG PO BID, #30 TAB Prov: Yakov Medina MD 11/15/17 Referrals No Doctor, Assigned (PCP) Patient Instructions My [facility] Problem Qualifiers Primary Impression: Abdominal pain Abdominal location: generalized Qualified Codes: R10.84 - Generalized abdominal pain
[2017-11-15] MEDS ORDERED: OPTIRAY 320 IV PRN (05:30)
--- NOTE | 2017-11-15 06:10 | DIAGNOSTIC IMAGING REPORT ---
ABDOMEN 2VIEW W/PA CHEST RTN CLINICAL HISTORY: abd pain, nausea pain COMPARISON STUDY: 02/23/2017 FINDINGS: Small hiatal hernia. Lungs are clear. Several old right base]. Postoperative changes to the lumbar spine. Bowel pattern suggests ileus versus a partial small bowel obstructive change. Postoperative changes to the lumbar spine right hip and sacroiliac joints. IMPRESSION: 1. Small bowel ileus versus partial small bowel obstructive change. 2. Small hiatal hernia with the chest otherwise negative.. 3. Postoperative changes as noted. The above report was generated using voice recognition software. It may contain grammatical, syntax or spelling errors. Electronically signed by: Jerome Daugherty M.D. 11/15/2017 6:09 AM Dictated Date/Time: 11/15/2017 6:07 AM
[2017-11-15] MEDS ORDERED: MoRPHine SULFATE 4 MG/ML 1 ML CARP\\VIAL IV STA (07:12)
[2017-11-15] MEDS ORDERED: ONDANSETRON INJ 2 MG/ML 2 ML VIAL ONE (07:25)
--- NOTE | 2017-11-15 07:52 | DIAGNOSTIC IMAGING REPORT ---
ABD/PELVIS IV AND ORAL CONT CT DOSE: 560.23 mGy.cm HISTORY: Pain. Obstruction. abd pain, nausea; poss SBO TECHNIQUE: Multiaxial CT images of the abdomen and pelvis were performed following the use of intravenous and oral contrast. A dose lowering technique was utilized adhering to the principles of ALARA. COMPARISON STUDY: None. FINDINGS: Lung bases are clear. Minimal deep and basilar atelectasis. Liver is uniform throughout. Gallbladder demonstrates one small gallstone. There is mild represent a small calcification adjacent to the interlobar fissure. Appearance of the stomach is unremarkable. Kidneys enhance uniformly. There are findings of a distal small bowel obstructive change. Multiple distended fluid-filled loops of small bowel are present. Maximum small bowel diameter is 5 cm in the mid anterior abdominal region. Etiology is unclear. The change in diameter potentially is within the right lower quadrant, again with unknown etiology. A mass pathology is not identified.. Colon shows no evidence for distention. There is no evidence for free air or pneumatosis. Considerable postoperative changes involving the lumbosacral spine as well as right iliac wing. Evidence for prior fractures of components of the pelvis, iliac wings,. These appear to be old. Postoperative changes consistent with a right hip total arthroplasty. Soft tissue scarring lateral to the right hip with a 4 cm fluid pocket within the subcutaneous fat. This has been described previously and does not appear to relate to an acute abnormality. There is significant soft tissue scarring about the right hip prosthetic which is similar to the prior exam of 08/18/2017. IMPRESSION: 1. Distal small bowel obstructive change of uncertain etiology. 2. No evidence for colonic distention. 3. No evidence for abscess or collection. 4. Postoperative changes throughout the lumbar sacral spine and bony pelvis and right hip as described. 4 cm fluid pocket lateral to the right hip similar to and/or perhaps slightly increased in prominence compared to the prior study. This may relate to a postprocedural seroma The above report was generated using voice recognition software. It may contain grammatical, syntax or spelling errors. Electronically signed by: Jerome Daugherty M.D. 11/15/2017 7:51 AM Dictated Date/Time: 11/15/2017 7:43 AM
[2017-11-15] MEDS ORDERED: FENTANYL CITRATE INJ 50 MCG/1 ML 2 ML VIAL IV ONE (08:15)
[2017-11-15] MEDS ORDERED: HYDROmorphone INJ 2 MG/ML SYR/VIAL IV STA (08:51)
--- NOTE | 2017-11-15 09:05 | EMERGENCY ROOM VISIT NOTE ---
ED Visit Note This patient was signed out to me awaiting CT scan report. CT scan is concerning for possible distal small bowel obstruction. The patient was treated with IV morphine, IV fentanyl and IV Dilaudid. Nasogastric tube was placed and about 450 mL of fluid was removed from the stomach. I spoke with the hospice, who will see the patient for further inpatient evaluation and care. DX: Distal small bowel obstruction
[2017-11-15] MEDS ORDERED: BUSP-8 PO (09:45)
[2017-11-15] MEDS ORDERED: LAMO150T PO (09:45)
[2017-11-15] MEDS ORDERED: ALUMINUM/MAGNESIUM/SIMETH (MAALOX MAX) 30 ML UDC PO PRN (09:45)
[2017-11-15] MEDS ORDERED: ALBUTEROL HFA 8 GM INHALER INH PRN (09:45)
[2017-11-15] MEDS ORDERED: HYDROmorphone INJ 0.5 MG/0.5 ML SYR IV PRN (09:45)
[2017-11-15] MEDS ORDERED: ACETAMINOPHEN 325 MG TAB PO PRN (09:45)
[2017-11-15] MEDS ORDERED: ONDANSETRON 8 MG TAB PO PRN (09:45)
[2017-11-15] MEDS ORDERED: VANCOMYCIN IV 1,000 MG in SODIUM CHLORIDE 0.9% 250ML 250 ML IV SCH (10:00)
--- NOTE | 2017-11-15 11:09 | DIAGNOSTIC IMAGING REPORT ---
EXTREMITY NONVASCULAR LIMITED CLINICAL HISTORY: right hip seroma/abscess collection TECHNIQUE: Ultrasound COMPARISON STUDY: CT same date CT 10/31/2017 FINDINGS: Complex collection lateral to the right hip essentially unchanged from the prior study. Measurements are approximate 9 x 4 x 3 cm. This is similar to minimally diminished in size in the prior exam. This was previously aspirated IMPRESSION: Complex collection lateral to the right hip unchanged to perhaps slightly diminished in volume from the prior study. This was previously aspirated . The above report was generated using voice recognition software. It may contain grammatical, syntax or spelling errors. Electronically signed by: Jerome Daugherty M.D. 11/15/2017 11:07 AM Dictated Date/Time: 11/15/2017 11:05 AM
[2017-11-15] MEDS ORDERED: VANCOMYCIN CONSULT ACTIVE PRN (11:30)
[2017-11-15] MEDS ORDERED: VANCOMYCIN IV 1,500 MG in SODIUM CHLORIDE 0.9% 500ML 500 ML IV ONE (11:30)
[2017-11-15] MEDS: D5W AND NSS 1,000 ML IV SCH ×2 (11:30→22:32)
[2017-11-15] MEDS: ENOXAPARIN 40 MG/0.4 ML SYR SQ SCH (12:00)
[2017-11-15] MEDS: FENTANYL PATCH REMOVE & WASTE SCH (13:14)
[2017-11-15] MEDS: BACLOFEN 10 MG TAB PO SCH (13:24)
[2017-11-15] MEDS: GABAPENTIN 300 MG CAP PO SCH (13:25)
[2017-11-15] MEDS ORDERED: NURSING VERBAL MED ORDER ONE ×3 (13:30→16:15)
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
[2017-11-15] MEDS: METOCLOPRAMIDE HCL INJ 5 MG/ML 2 ML VIAL IV SCH ×2 (13:48→18:48)
[2017-11-15] MEDS: FENTANYL 25 MCG/HR TDSY TD SCH (13:49)
[2017-11-15] MEDS: HYDROmorphone INJ 1 MG/ML SYR IV PRN ×2 (13:50→22:11)
--- NOTE | 2017-11-15 15:35 | Pharmacy Progress Note ---
Pharmacy Antibiotic Consult Date of Service: Nov 15, 2017. Pharmacy Dosing Scope Pharmacy is consulted to initiate vancomycin IV dosing therapy, order appropriate labs and adjust drug dose/frequency. Subjective The patient is a 57 year old female admitted on Nov 15, 2017 at 09:43. Objective Height (Feet): 5 Height (Inches): 2.00 Weight (Kilograms): 65.000 Lab Results (24hrs): Test 11/15/17 03:57 11/15/17 13:03 11/15/17 13:17 White Blood Count 9.98 K/uL (4.8-10.8) Red Blood Count 3.91 M/uL (4.2-5.4) Hemoglobin 10.8 g/dL (12.0-16.0) Hematocrit 34.0 % (37-47) Mean Corpuscular Volume 87.0 fL (80-100) Mean Corpuscular Hemoglobin 27.6 pg (25-34) Mean Corpuscular Hemoglobin Concent 31.8 g/dl (32-36) Platelet Count 506 K/uL (130-400) Mean Platelet Volume 8.5 fL (7.4-10.4) Neutrophils (%) (Auto) 71.7 % Lymphocytes (%) (Auto) 18.2 % Monocytes (%) (Auto) 9.5 % Eosinophils (%) (Auto) 0.0 % Basophils (%) (Auto) 0.2 % Neutrophils # (Auto) 7.15 K/uL (1.4-6.5) Lymphocytes # (Auto) 1.82 K/uL (1.2-3.4) Monocytes # (Auto) 0.95 K/uL (0.11-0.59) Eosinophils # (Auto) 0.00 K/uL (0-0.5) Basophils # (Auto) 0.02 K/uL (0-0.2) RDW Standard Deviation 45.9 fL (36.4-46.3) RDW Coefficient of Variation 14.6 % (11.5-14.5) Immature Granulocyte % (Auto) 0.4 % Immature Granulocyte # (Auto) 0.04 K/uL (0.00-0.02) Prothrombin Time 11.2 SECONDS (9.0-12.0) Prothromb Time International Ratio 1.1 (0.9-1.1) Sodium Level 130 mmol/L (136-145) Potassium Level 4.4 mmol/L (3.5-5.1) Chloride Level 97 mmol/L (98-107) Carbon Dioxide Level 26 mmol/L (21-32) Anion Gap 7.0 mmol/L (3-11) Blood Urea Nitrogen 16 mg/dl (7-18) Creatinine 0.74 mg/dl (0.60-1.20) Est Creatinine Clear Calc Drug Dose 74.2 ml/min Estimated GFR () 104.2 Estimated GFR (Non- 89.9 BUN/Creatinine Ratio 22.0 (10-20) Random Glucose 121 mg/dl (70-99) Lactic Acid Level 1.5 mmol/L (0.4-2.0) 1.2 mmol/L (0.4-2.0) Calcium Level 9.8 mg/dl (8.5-10.1) Total Bilirubin 0.3 mg/dl (0.2-1) Aspartate Amino Transf (AST/SGOT) 15 U/L (15-37) Alanine Aminotransferase (ALT/SGPT) 13 U/L (12-78) Alkaline Phosphatase 89 U/L (45-117) Troponin I < 0.015 ng/ml (0-0.045) Total Protein 8.4 gm/dl (6.4-8.2) Albumin 3.3 gm/dl (3.4-5.0) Globulin 5.1 gm/dl (2.5-4.0) Albumin/Globulin Ratio 0.6 (0.9-2) Lipase 91 U/L (73-393) Chemistry Specimen Hemolysis Erythrocyte Sedimentation Rate 60 mm/hr (0-21) C-Reactive Protein 1.80 mg/dl (0-0.29) Assessment & Plan Assessment * 57 yo F admitted for SBO. * Vancomycin ordered for cellulitis. Patient was on outpatient Augmentin, doxycycline scheduled to stop 11/14. Spoke w Dr. Medina who noted persistent drainage and therefore would like to start vancomycin as inpatient. * SCr at/near baseline with eCrCL ~ 74 mL/min Vancomycin dosing * Goal trough 10-15 mcg/mL for cellulitis. Would like to be in upper end of that range. * 23 mg/kg loading dose already ordered/administered * Will continue with 15 mg/kg IV dosed at slightly longer than estimated vancomycin t1/2 of 10.5 hr * Trough prior to 4th overall dose Plan * Vancomycin 1000 mg IV q12h * Trough 11/16 @ 8224 Pharmacy will continue to follow and will adjust dose/frequency as necessary. Thank you
[2017-11-15] MEDS: CHECK FENTANYL PATCH PLACEMENT SCH (15:56)
[2017-11-15] MEDS: HYDROmorphone INJ 0.5 MG/0.5 ML SYR IV ONE ×2 (16:21→16:44)
[2017-11-15] MEDS ORDERED: HYDROmorphone INJ 1 MG/ML SYR IV ONE (16:30)
[2017-11-15] MEDS: FORMOTEROL FUMA NEBULIZER SOLN 20 MCG/2 ML VIAL INH SCH (20:22)
[2017-11-16] VITALS (7 sets, daily range): BP systolic 107–116; BP diastolic 70–75; PULSE 81–104; TEMP 36.8–37.1; O2SAT 91–97
[2017-11-16] MEDS: VANCOMYCIN IV 1,000 MG in SODIUM CHLORIDE 0.9% 250ML 250 ML IV SCH ×2 (00:12→14:01)
[2017-11-16] MEDS: CHECK FENTANYL PATCH PLACEMENT SCH ×3 (00:15→16:24)
[2017-11-16] MEDS: METOCLOPRAMIDE HCL INJ 5 MG/ML 2 ML VIAL IV SCH ×4 (00:35→18:31)
[2017-11-16] MEDS: LORAZEPAM INJ 0.5 MG in SYRINGE 0.75 ML IV PRN ×2 (03:11→14:00)
[2017-11-16] MEDS: HYDROmorphone INJ 1 MG/ML SYR IV PRN ×5 (03:20→21:40)
[2017-11-16 06:18] LABS: BASO % 0.2 %; BASO ABS # 0.03 K/uL (0-0.2); EOS % 0.2 %; EOS ABS # 0.02 K/uL (0-0.5); HEMATOCRIT 30.6 % (37-47); HEMOGLOBIN 9.6 g/dL (12.0-16.0); IG# 0.05 K/uL (0.00-0.02); LYMPH % 13.1 %; MEAN CELL VOLUME 87.2 fL (80-100); MEAN CORPUSCULAR HEMOGLOBIN 27.4 pg (25-34); MEAN CORPUSCULAR HGB CONC 31.4 g/dl (32-36); MEAN PLATELET VOLUME 8.7 fL (7.4-10.4); MONO % 13.8 %; MONO ABS # 1.69 K/uL (0.11-0.59); NEUT % 72.3 %; NEUT ABS # 8.82 K/uL (1.4-6.5); PLATELET COUNT 425 K/uL (130-400); RED CELL DISTRIBUTION WIDTH CV 14.9 % (11.5-14.5); RED CELL DISTRIBUTION WIDTH SD 46.9 fL (36.4-46.3); WHITE BLOOD COUNT 12.21 K/uL (4.8-10.8)
[2017-11-16] MEDS: D5W AND NSS 1,000 ML IV SCH ×2 (06:24→13:59)
[2017-11-16 06:50] LABS: CALCIUM 8.3 mg/dl (8.5-10.1); CREATININE 0.44 mg/dl (0.60-1.20); POTASSIUM 3.4 mmol/L (3.5-5.1)
--- NOTE | 2017-11-16 07:09 | Pre-Operative Consultation ---
History General Date of Service: Nov 16, 2017. HPI HPI: The patient is a 57 year old female being seen for partial SBO. She had a similar episode years ago which required exploration. She came to ED with complaints of constant abdominal pain. The patient's pain is worse on the right. She also complains of abdominal bloating, and back pain. Her symptoms began following an episode of nausea, shakiness, weakness, and dizziness after eating. The patient denies eating anything abnormal. She has not [id number] flatus or BM since yesterday. Her last normal bowel movement was day prior. The patient denies recent changes to bowel movements, or urination. She denies any medication changes. She denies vomiting. She notes that she was recently seen in the ED for cellulitis and is finishing up her course of antibiotics today. Her antibiotics include Doxycycline and Augmentin. Historian: patient Procedure Urgency: Acute Risk Assessment Daily beta rosibel use?: No Problem List Medical Problems: (1) Abdominal pain Status: Acute (2) Acute bronchitis Status: Acute (3) Anemia Status: Acute (4) Anxiety Status: Chronic (5) Bipolar disorder Status: Chronic (6) Cellulitis Status: Acute (7) Cervicalgia Status: Chronic (8) Fever Status: Acute (9) Hip pain Status: Acute (10) Hyponatremia Status: Acute (11) Infected finger Status: Acute (12) Influenza-like symptoms Status: Acute (13) Intertrochanteric fracture of right hip Status: Acute (14) Left leg swelling Status: Acute (15) Leg pain, right Status: Acute (16) Leg pain, right Status: Acute (17) Lumbago Status: Chronic (18) Nausea Status: Acute (19) Postoperative wound infection of right hip Status: Acute (20) PTSD (post-traumatic stress disorder) Status: Chronic (21) Right hip pain Status: Acute (22) Sciatic leg pain Status: Acute (23) Subcapital fracture of right hip Status: Acute Medical & Surgical History Past Medical History: anxiety, bipolar disorder, depression, hepatitis, hypertension, osteoporosis, pancreatitis, pneumonia, other Past Surgical History: orthopedic surgery, tonsillectomy, tubal ligation Family History Family History: cancer, diabetes, gallbladder disease, heart disease, hypertension, renal disease Social History Hx Tobacco Use In Past Year?: Yes Smoking Status: Current Every Day Smoker Alcohol: none Drug Use: other Marital status: Housing status: lives with family Occupation status: disabled Immunizations Have You Had Influenza Vaccine: Yes Date Of Influenza Vaccine: Jul 29, 2012 Have You Had Tetanus Vaccine: Yes Date Of Tetanus Immunization: May 28, 2012 History of Pneumococcal: Yes Date of Pneumococcal Vaccine: Dec 10, 2012 History Hepatitis B Vaccine: No History of MDRO History of MDRO?: MRSA Allergies Allergies: Coded Allergies: Hydroxyzine (Verified Allergy, Severe, THROAT CONSTRICTS/CAN NOT VOID, ) Clarithromycin (Verified Adverse Reaction, Intermediate, vomiting, ) Lisinopril (Verified Adverse Reaction, Mild, Cough, 11/15/17) Reported by PT. Chlorpromazine (Verified Adverse Reaction, Unknown, LIGHTHEADED DIZZY, ) Medications Current Inpatient Medications Current Inpatient Medications Medications (Trade) Dose Ordered Sig/Jennifer Route Start Time Stop Time Status Last Admin Dose Admin Ioversol (Optiray 320) 125 ml UD PRN IV 11/15/17 05:30 11/19/17 05:29 Enoxaparin Sodium (Lovenox Inj) 40 mg Q24H SQ 11/15/17 12:00 12/15/17 11:59 Acetaminophen (Tylenol Tab) 650 mg Q4H PRN PO 11/15/17 09:45 12/15/17 09:44 Al Hydrox/Mg Hydrox/Simethicone (Maalox Max Susp) 15 ml Q4H PRN PO 11/15/17 09:45 12/15/17 09:44 Ondansetron HCl (Zofran Inj) 4 mg Q6H PRN IV 11/15/17 09:45 12/15/17 09:44 Albuterol (Ventolin Hfa Inhaler) 1 puffs Q4 PRN INH 11/15/17 09:45 12/15/17 09:44 Aripiprazole (Abilify Tab) 30 mg QAM PO 11/16/17 09:00 12/16/17 08:59 Baclofen (Lioresal Tab) 10 mg TID PO 11/15/17 14:00 12/15/17 13:59 Future hold Cetirizine HCl (zyrTEC TAB) 10 mg QAM PO 11/16/17 09:00 12/16/17 08:59 Cyclobenzaprine HCl (Flexeril Tab) 10 mg TID PRN PO 11/15/17 09:45 12/15/17 09:44 Future hold Fentanyl (Duragesic Patch) 25 mcg Q3D@0900 TD 11/15/17 13:15 11/29/17 13:14 11/15/17 13:49 25 MCG Gabapentin (Neurontin Cap) 300 mg TID PO 11/15/17 14:00 12/15/17 13:59 Future hold Lorazepam (Ativan Tab) 1 mg BID PRN PO 11/15/17 09:45 12/15/17 09:44 Metoprolol Succinate (Toprol Xl Tab) 25 mg QAM PO 11/16/17 09:00 12/16/17 08:59 Montelukast Sodium (Singulair Tab) 10 mg HS PO 11/15/17 21:00 12/15/17 20:59 Future hold Ondansetron HCl (Zofran Tab) 8 mg Q6H PRN PO 11/15/17 09:45 12/15/17 09:44 Lubiprostone (Amitiza) 24 mcg BID PO 11/15/17 21:00 12/15/17 20:59 Future hold Dextrose/Sodium Chloride 1,000 ml @ 125 mls/hr Q8H IV 11/15/17 11:30 12/15/17 11:29 11/16/17 06:24 125 MLS/HR Metoclopramide HCl (Reglan Inj) 5 mg Q6 IV 11/15/17 14:00 12/15/17 13:59 11/16/17 06:03 5 MG Formoterol Fumarate (Perforomist 20MCG/2ML Neb Soln) 20 mcg BID INH 11/15/17 21:00 12/15/17 20:59 11/15/17 20:22 20 MCG Lamotrigine (Lamictal Tab) 125 mg BID PO 11/15/17 21:00 12/15/17 20:59 Future hold Buspirone HCl (Buspar Tab) 10 mg BID PO 11/15/17 21:00 12/15/17 20:59 Future hold Vancomycin HCl (Consult) 1 ea UD PRN N/A 11/15/17 11:30 12/15/17 11:29 Hydromorphone HCl (Dilaudid Inj) 1 mg Q3HWA PRN IV 11/15/17 12:30 11/29/17 09:44 11/16/17 03:20 1 MG Miscellaneous (Fentanyl Patch Remove & Waste) 1 ea Q3D@0859 N/A 11/15/17 13:14 12/15/17 13:13 11/15/17 13:14 1 EA Miscellaneous Information (Check Fentanyl Patch Placement) 1 ea QS N/A 11/15/17 16:00 12/15/17 15:59 11/16/17 00:15 1 EA Vancomycin HCl 1000 mg/Sodium Chloride 270 ml @ 125 mls/hr Q12@0000,1200 IV 11/16/17 00:00 11/26/17 00:00 11/16/17 00:12 125 MLS/HR Lorazepam 0.5 mg/ Syringe 1 ml @ 0.5 mls/min BID PRN IV 11/15/17 16:15 12/15/17 16:14 11/16/17 03:11 0.5 MLS/MIN Review of Systems Review of Systems Constitutional: denies chills, denies diaphoresis, denies fever Eyes: reports: no symptoms ENT: reports: no symptoms reported Cardiovascular: denies: chest pain, chest tightness, chest pressure, palpitations, syncope Respiratory: denies: cough, short of breath, stridor, cyanosis Gastrointestinal: abdominal pain, constipation, denies diarrhea, nausea, denies vomiting Genitourinary - Female: reports: no symptoms Musculoskeletal: back pain, denies joint pain, denies joint swelling, denies muscle stiffness Integumentary: denies change in color, denies change in hair/nails, denies dryness, denies lumps, denies rash Neurologic: reports: no symptoms Psychiatric: reports: anxiety, depression Endocrine: no symptoms Hematologic / Lymphatic: no symptoms Allergic / Immunologic: no symptoms Physical Exam Physical Exam General Appearance: + WD/WN, No distress Ears, Nose, Throat: + normal ENT inspection Neck: No tracheal deviation, No lymphadenophy, No stiffness, No tenderness Respiratory: No chest tenderness, No accessory muscle use, No decreased breath sounds, No rhonchi, No stridor, No wheezing Cardiovascular: No gallop/S3, No diastolic murmur, No gallop/S4, No bradycardia , No systolic murmur Abdomen: + abnormal bowel sounds, + tenderness (mild), No rebound, No distension, No guarding Extremities: No abnormal range of motion, No deformity, No swelling, No calf tenderness, No inflammation Neurologic/Psychiatric: No motor deficit/weakness, No disorientation, No sensory deficit Skin Characteristics: No abnormal color, No diaphoresis, No pallor, No jaundice , No rash Lymphatic: No abnormal adenopathy Diagnostics Labs Labs Results Past 24 Hours Test 11/15/17 13:03 11/15/17 13:17 11/16/17 05:25 Range/Units Erythrocyte Sedimentation Rate 60 0-21 mm/hr C-Reactive Protein 1.80 0-0.29 mg/dl Lactic Acid Level 1.2 0.4-2.0 mmol/L White Blood Count 12.21 4.8-10.8 K/uL Red Blood Count 3.51 4.2-5.4 M/uL Hemoglobin 9.6 12.0-16.0 g/dL Hematocrit 30.6 37-47 % Mean Corpuscular Volume 87.2 80-100 fL Mean Corpuscular Hemoglobin 27.4 25-34 pg Mean Corpuscular Hemoglobin Concent 31.4 32-36 g/dl Platelet Count 425 130-400 K/uL Mean Platelet Volume 8.7 7.4-10.4 fL Neutrophils (%) (Auto) 72.3 % Lymphocytes (%) (Auto) 13.1 % Monocytes (%) (Auto) 13.8 % Eosinophils (%) (Auto) 0.2 % Basophils (%) (Auto) 0.2 % Neutrophils # (Auto) 8.82 1.4-6.5 K/uL Lymphocytes # (Auto) 1.60 1.2-3.4 K/uL Monocytes # (Auto) 1.69 0.11-0.59 K/uL Eosinophils # (Auto) 0.02 0-0.5 K/uL Basophils # (Auto) 0.03 0-0.2 K/uL RDW Standard Deviation 46.9 36.4-46.3 fL RDW Coefficient of Variation 14.9 11.5-14.5 % Immature Granulocyte % (Auto) 0.4 % Immature Granulocyte # (Auto) 0.05 0.00-0.02 K/uL Sodium Level 135 136-145 mmol/L Potassium Level 3.4 3.5-5.1 mmol/L Chloride Level 104 98-107 mmol/L Carbon Dioxide Level 24 21-32 mmol/L Anion Gap 8.0 3-11 mmol/L Blood Urea Nitrogen 11 7-18 mg/dl Creatinine 0.44 0.60-1.20 mg/dl Est Creatinine Clear Calc Drug Dose 124.9 ml/min Estimated GFR () 129.9 Estimated GFR (Non- 112.1 BUN/Creatinine Ratio 24.2 10-20 Random Glucose 123 70-99 mg/dl Calcium Level 8.3 8.5-10.1 mg/dl Magnesium Level 2.1 1.8-2.4 mg/dl Microbiology Results 11/15/17 Gram Stain, Received Pending 11/15/17 Wound Culture, Received Pending Diagnostic Radiology Diagnostic Radiology ABD/PELVIS IV AND ORAL CONT CT DOSE: 560.23 mGy.cm HISTORY: Pain. Obstruction. abd pain, nausea; poss SBO TECHNIQUE: Multiaxial CT images of the abdomen and pelvis were performed following the use of intravenous and oral contrast. A dose lowering technique was utilized adhering to the principles of ALARA. COMPARISON STUDY: None. FINDINGS: Lung bases are clear. Minimal deep and basilar atelectasis. Liver is uniform throughout. Gallbladder demonstrates one small gallstone. There is mild represent a small calcification adjacent to the interlobar fissure. Appearance of the stomach is unremarkable. Kidneys enhance uniformly. There are findings of a distal small bowel obstructive change. Multiple distended fluid-filled loops of small bowel are present. Maximum small bowel diameter is 5 cm in the mid anterior abdominal region. Etiology is unclear. The change in diameter potentially is within the right lower quadrant, again with unknown etiology. A mass pathology is not identified.. Colon shows no evidence for distention. There is no evidence for free air or pneumatosis. Considerable postoperative changes involving the lumbosacral spine as well as right iliac wing. Evidence for prior fractures of components of the pelvis, iliac wings,. These appear to be old. Postoperative changes consistent with a right hip total arthroplasty. Soft tissue scarring lateral to the right hip with a 4 cm fluid pocket within the subcutaneous fat. This has been described previously and does not appear to relate to an acute abnormality. There is significant soft tissue scarring about the right hip prosthetic which is similar to the prior exam of 08/18/2017. IMPRESSION: 1. Distal small bowel obstructive change of uncertain etiology. 2. No evidence for colonic distention. 3. No evidence for abscess or collection. 4. Postoperative changes throughout the lumbar sacral spine and bony pelvis and right hip as described. 4 cm fluid pocket lateral to the right hip similar to and/or perhaps slightly increased in prominence compared to the prior study. This may relate to a postprocedural seroma Impression Assessment and Plan Assessment and Plan SBO -patient felling better -con't ngt -IVF -check KUB this AM
[2017-11-16] MEDS: FORMOTEROL FUMA NEBULIZER SOLN 20 MCG/2 ML VIAL INH SCH (07:18)
[2017-11-16 07:55] LABS: HEMOGLOBIN A1C 5.2 % (4.5-5.6)
[2017-11-16] MEDS: CETIRIZINE HCL 10 MG TAB PO SCH (09:00)
[2017-11-16] MEDS: BACLOFEN 10 MG TAB PO SCH ×3 (09:00→21:48)
[2017-11-16] MEDS: GABAPENTIN 300 MG CAP PO SCH ×3 (09:00→21:48)
[2017-11-16] MEDS ORDERED: METOPROLOL SUCC 25MG EXT REL TAB PO SCH (09:00)
[2017-11-16] MEDS: ARIPIprazole TAB 15 MG TAB PO SCH (09:00)
[2017-11-16] MEDS: LUBIPROSTONE 8 MCG CAP PO SCH ×2 (09:00→21:44)
[2017-11-16] MEDS ORDERED: FAMOTIDINE 20 MG TAB PO SCH (09:00)
--- NOTE | 2017-11-16 11:36 | DIAGNOSTIC IMAGING REPORT ---
KUB CLINICAL HISTORY: Small bowel obstruction. FINDINGS: An AP, portable, supine abdominal radiograph is correlated with abdominal CT dated 11/15/2017. An enteric tube has been placed and the tip projects over the stomach. There is evidence of persistent small bowel obstruction. Fecal retention is noted in the colon. No evidence of intraperitoneal free air is seen on this supine examination. The skeletal structures are osteopenic. There are postoperative changes from extensive lumbosacral spinal fusion, as well as buttress plate repair of the right bony pelvis. A right hip arthroplasty is in place. IMPRESSION: 1. An enteric tube has been placed. The tip projects over the stomach. 2. Small bowel obstruction persists. Electronically signed by: Jeffry Colunga M.D. 11/16/2017 11:35 AM Dictated Date/Time: 11/16/2017 11:33 AM
[2017-11-16] MEDS: ENOXAPARIN 40 MG/0.4 ML SYR SQ SCH (12:00)
[2017-11-16] MEDS ORDERED: NURSING VERBAL MED ORDER ONE (13:15)
--- NOTE | 2017-11-16 14:48 | DIAGNOSTIC IMAGING REPORT ---
KUB CLINICAL HISTORY: Dysphagia. Small bowel obstruction. FINDINGS: An AP, portable, supine abdominal radiograph is compared to study performed earlier the same day 11/16/2017 and correlated with abdominal CT dated 11/15/2017. An enteric tube is unchanged in position and projects over the stomach. There is evidence of persistent small bowel obstruction. Gaseous distention of the small bowel loops has modestly improved from earlier today. No evidence of intraperitoneal free air is seen on this supine examination. The skeletal structures are osteopenic. There are postoperative changes from extensive lumbosacral spinal fusion, as well as buttress plate repair of the right bony pelvis. There are healed right-sided rib fractures. IMPRESSION: 1. The enteric tube is unchanged in position. 2. Improving small bowel distention as compared to today's earlier examination. Electronically signed by: Jeffry Colunga M.D. 11/16/2017 2:47 PM Dictated Date/Time: 11/16/2017 2:45 PM
--- NOTE | 2017-11-16 18:04 | HISTORY & PHYSICAL EXAMINATION ---
DATE OF ADMISSION: 11/15/2017 CHIEF COMPLAINT: Abdominal pain. HISTORY OF PRESENT ILLNESS: This is a 57-year-old female with a past medical history significant for PSVT status post ablation, COPD, ongoing tobacco abuse, gastroparesis, anxiety, mood disorder, chronic pain on fentanyl patch, chronic Hep C status post treatment, history of MRSA, history of C. diff, past alcohol abuse. multiple admissions for right hip abscesses status post I&D and recently was on Augmentin and doxycycline and today is last day of her antibiotic treatment. She presents with abdominal pain. The patient says since yesterday dinner, she started to notice some nausea and abdominal pain, which got worse, about 9/10 in severity, all over the belly as well as some nausea, but denies any vomiting. Last bowel movement was yesterday morning. Not passing any gas now. History of bowel obstruction in the past. Denies any fevers or chills. No cough. No sore throat. No difficulty swallowing. No chest pain. No shortness of breath. No headaches. Has mild dizziness. No blurred vision. No runny nose. Currently, still has some pain in the belly. Hemodynamically stable. ALLERGIES: ERYTHROMYCIN, CHLORPROMAZINE, HYDROXYZINE, AND LISINOPRIL. PAST MEDICAL HISTORY: As mentioned above. PAST SURGICAL HISTORY: Tubal ligation, tonsillectomy, fundoplasty, sinus surgery, bowel surgery and hip surgery. MEDICATIONS: The patient is on Zantac 300 mg p.o. q. daily, fentanyl 25 mcg topically every 3 days, Ativan 1 mg p.o. b.i.d., Ambien 5 mg p.o. at bedtime, Neurontin 300 mg p.o. t.i.d., Hydrocodone/acetaminophen 10/325mg every 8 hours p.r.n., Zofran 8 mg p.o. q. 6 hours p.r.n., Lioresal 10 mg p.o. b.i.d., baclofen 10 mg p.o. t.i.d., Amitiza 24 mcg p.o. b.i.d. with meals, Reglan 5 mg p.o. q.i.d., sulindac 150 mg p.o. b.i.d., Flexeril 10 mg p.o. t.i.d. p.r.n., Lamictal 125 mg p.o. daily, multivitamins 1 capsule daily, Lasix 20 mg daily p.r.n., potassium chloride 10 mEq p.o. when taking Lasix, vitamin D 5000 units p.o. daily, albuterol HFA 2 puffs every 6 hours p.r.n., metoprolol succinate XL 1 tablet p.o. daily, buspirone 10 mg p.o. b.i.d., Brovana inhalation b.i.d., Singulair 10 mg p.o. daily, Zyrtec 10 mg p.o. daily, ferrous sulfate 325 mg p.o. daily, fluticasone 2 sprays each nostril b.i.d., calcium 600 plus D 2 tablets daily with food and Abilify mg p.o. daily. FAMILY HISTORY: Significant for hypertension and heart disease. SOCIAL HISTORY: Smokes 2 cigarettes a day. Past alcohol abuse, stable. REVIEW OF SYMPTOMS: As per HPI. Rest of review of systems negative. PHYSICAL EXAMINATION: GENERAL: The patient is of moderate built, not in distress. VITAL SIGNS: Temperature 37.4, pulse 86, respiratory rate 20, blood pressure 153/90 and oxygen 97% room air. HEENT: No pallor and no icterus. Pupils equal, round, and reactive to light. NECK: No JVD. No neck masses. No carotid bruits. CARDIOVASCULAR: S1 and S2 heard. Regular rate and rhythm. No murmur and no gallop. RESPIRATORY SYSTEM: Clear to auscultation bilaterally. No wheezing and no crackles. ABDOMEN: Soft. Bowel sounds very sluggish. Diffuse tender. Some mild guarding. No rigidity. CENTRAL NERVOUS SYSTEM: Cranial nerves II-XII grossly intact. Nonfocal. EXTREMITIES: Right hip surgical site, mild drainage and erythema. Mild lower extremity edema seen. LABORATORIES: WBC 9.9, hemoglobin 10.8, hematocrit 34, and platelets 506. Sodium 130, potassium 4.4, chloride 97, CO2 of 26, BUN 16, creatinine 0.7, and serum glucose 121. Lactic acid 1.5. Calcium 9.8. Total bilirubin 0.3. AST 15, ALT 13, and alkaline phosphatase 89. Troponin I less than 0.015. Lipase 91. PT 11.2 and INR 1.1. IMAGING: Chest and abdominal x-ray shows small bowel ileus versus partial small bowel obstructive changes, small hiatal hernia with chest otherwise negative postoperative changes. CT of the abdomen and pelvis shows a distal small bowel obstructive change of uncertain etiology. No evidence for colonic distention. No evidence of abscess collection. Postoperative changes throughout the lumbosacral spine, bony pelvis and right hip as described .4-cm fluid pocket lateral to the right hip similar or slightly increasing prominence compared to prior study .Possible post procedural seroma. EKG shows normal sinus rhythm with a rate of 95. T-wave inversions in lateral inferior leads. ASSESSMENT AND PLAN: This is a 57-year-old female who presents with small bowel obstruction. 1. Small bowel obstruction, status post bowel surgery. We will place an NG tube, IV pain medications, IV fluids, and IV antiemetics. N.p.o. except meds. Consult surgery for further recommendations. 2. Right hip infection post surgery. Recent I and D and treatments in the past. Still has some seroma on the CAT scan and we will get ultrasound We will get the cultures. We will empirically place on IV vancomycin as the patient is supposed to complete the Augmentin and doxycycline today. Consult orthopedics. 3. Chronic pain. Continue fentanyl patch and Flexeril. Continue home medications. 4. Chronic obstructive pulmonary disease. Stable. Continue home inhalers. 5. History of anemia. We will monitor the hemoglobin. 6. History of paroxysmal supraventricular tachycardia, status post ablation, on metoprolol, rate controlled. 7. Tobacco abuse. Smoking cessation counseling. 8. History of depression and bipolar. Continue home medications. 9. Gastroesophageal reflux disease. Continue PPI. 10. DVT prophylaxis, Lovenox. DISPOSITION: Admit to medical floor. Expect to discharge home and follow with the family doctor. Level 1 full code. MTDD
--- NOTE | 2017-11-16 18:05 | Progress Note ---
Internal Med Progress Note Date of Service: Nov 16, 2017. Provider Documentation: SUBJECTIVE: sitting on the chair abdominal pain is better no nausea says passed gas once afebrile says NG tube making her feel something stuck in the throat denies sob OBJECTIVE: Vital Signs-as noted below Exam: General-Alert sand awake. Not in distress ENT-Normal hearing Neck-no neck masses supple Lungs-cta b/l no wheezing no crackles Heart-S1 and S2 heard regular rate and rthym, no murmurs Abdomen-Soft bowel sounds very sluggish mild diffuse tender no distension Extremities-no edema no erythema Neuro-alert and awake moves extremities Lab data as noted below. 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 DVT PROPHYLAXIS Lovenox-refused scds DISPOSITION monitor on medical floor Vital Signs: Date Time Temp Pulse Resp B/P (MAP) Pulse Ox O2 Delivery O2 Flow Rate FiO2 11/16/17 15:45 Room Air 11/16/17 15:40 36.8 98 18 116/75 (89) 93 Room Air 11/16/17 07:30 Nasal Cannula 1.0 11/16/17 07:18 81 18 92 Room Air 11/16/17 07:06 36.9 87 20 111/70 (84) 91 Room Air 11/16/17 06:19 89 94 Room Air 11/16/17 03:15 104 107/72 (84) 97 Nasal Cannula 1.0 11/16/17 00:15 Nasal Cannula 1.0 11/15/17 22:55 37.5 110 16 120/74 (89) 97 Nasal Cannula 2.0 11/15/17 20:22 101 18 97 Nasal Cannula 2.0 11/15/17 19:35 95 Nasal Cannula 1.0 Lab Results: Results Past 24 Hours Test 11/16/17 05:25 Range/Units White Blood Count 12.21 4.8-10.8 K/uL Red Blood Count 3.51 4.2-5.4 M/uL Hemoglobin 9.6 12.0-16.0 g/dL Hematocrit 30.6 37-47 % Mean Corpuscular Volume 87.2 80-100 fL Mean Corpuscular Hemoglobin 27.4 25-34 pg Mean Corpuscular Hemoglobin Concent 31.4 32-36 g/dl Platelet Count 425 130-400 K/uL Mean Platelet Volume 8.7 7.4-10.4 fL Neutrophils (%) (Auto) 72.3 % Lymphocytes (%) (Auto) 13.1 % Monocytes (%) (Auto) 13.8 % Eosinophils (%) (Auto) 0.2 % Basophils (%) (Auto) 0.2 % Neutrophils # (Auto) 8.82 1.4-6.5 K/uL Lymphocytes # (Auto) 1.60 1.2-3.4 K/uL Monocytes # (Auto) 1.69 0.11-0.59 K/uL Eosinophils # (Auto) 0.02 0-0.5 K/uL Basophils # (Auto) 0.03 0-0.2 K/uL RDW Standard Deviation 46.9 36.4-46.3 fL RDW Coefficient of Variation 14.9 11.5-14.5 % Immature Granulocyte % (Auto) 0.4 % Immature Granulocyte # (Auto) 0.05 0.00-0.02 K/uL Sodium Level 135 136-145 mmol/L Potassium Level 3.4 3.5-5.1 mmol/L Chloride Level 104 98-107 mmol/L Carbon Dioxide Level 24 21-32 mmol/L Anion Gap 8.0 3-11 mmol/L Blood Urea Nitrogen 11 7-18 mg/dl Creatinine 0.44 0.60-1.20 mg/dl Est Creatinine Clear Calc Drug Dose 124.9 ml/min Estimated GFR () 129.9 Estimated GFR (Non- 112.1 BUN/Creatinine Ratio 24.2 10-20 Random Glucose 123 70-99 mg/dl Estimated Average Glucose 103 mg/dl Hemoglobin A1c 5.2 4.5-5.6 % Calcium Level 8.3 8.5-10.1 mg/dl Magnesium Level 2.1 1.8-2.4 mg/dl
[2017-11-16] MEDS: METOPROLOL TARTRATE 25 MG TAB NG SCH (21:00)
[2017-11-16] MEDS ORDERED: METOPROLOL TARTRATE 25 MG TAB PO SCH (21:00)
[2017-11-16] MEDS: MONTELUKAST SOD 10 MG TAB PO SCH (21:48)
[2017-11-16] MEDS ORDERED: VANCOMYCIN TROUGH ONE (23:30)
[2017-11-17] MEDS: VANCOMYCIN IV 1,000 MG in SODIUM CHLORIDE 0.9% 250ML 250 ML IV SCH (00:01)
[2017-11-17] MEDS: METOCLOPRAMIDE HCL INJ 5 MG/ML 2 ML VIAL IV SCH ×5 (00:01→23:34)
[2017-11-17] MEDS: D5W AND NSS 1,000 ML IV SCH ×3 (00:02→10:58)
[2017-11-17] MEDS: CHECK FENTANYL PATCH PLACEMENT SCH ×4 (00:03→23:34)
[2017-11-17] MEDS: HYDROmorphone INJ 1 MG/ML SYR IV PRN ×8 (00:52→23:01)
[2017-11-17] MEDS: LORAZEPAM INJ 0.5 MG in SYRINGE 0.75 ML IV PRN (03:13)
[2017-11-17 06:36] LABS: BASO % 0.2 %; BASO ABS # 0.02 K/uL (0-0.2); EOS % 1.9 %; EOS ABS # 0.16 K/uL (0-0.5); HEMATOCRIT 27.2 % (37-47); HEMOGLOBIN 8.3 g/dL (12.0-16.0); IG# 0.03 K/uL (0.00-0.02); LYMPH % 21.4 %; LYMPH ABS # 1.83 K/uL (1.2-3.4); MEAN CORPUSCULAR HEMOGLOBIN 26.9 pg (25-34); MEAN CORPUSCULAR HGB CONC 30.5 g/dl (32-36); MEAN PLATELET VOLUME 8.3 fL (7.4-10.4); MONO % 12.3 %; MONO ABS # 1.05 K/uL (0.11-0.59); NEUT % 63.8 %; NEUT ABS # 5.47 K/uL (1.4-6.5); PLATELET COUNT 348 K/uL (130-400); RED CELL DISTRIBUTION WIDTH CV 14.7 % (11.5-14.5); RED CELL DISTRIBUTION WIDTH SD 47.6 fL (36.4-46.3); WHITE BLOOD COUNT 8.56 K/uL (4.8-10.8)
[2017-11-17 07:04] LABS: CALCIUM 8.1 mg/dl (8.5-10.1); CREATININE 0.38 mg/dl (0.60-1.20); POTASSIUM 3.2 mmol/L (3.5-5.1)
[2017-11-17 07:11] VITALS: BP 109/70; PULSE 90; TEMP 36.6; O2SAT 92
[2017-11-17 07:56] VITALS: PULSE 86; O2SAT 91
[2017-11-17] MEDS: FORMOTEROL FUMA NEBULIZER SOLN 20 MCG/2 ML VIAL INH SCH ×2 (07:56→21:00)
[2017-11-17] MEDS: POTASSIUM CHLORIDE 20 MEQ TABCR PO SCH ×2 (08:30→10:02)
[2017-11-17] MEDS: POTASSIUM CHLR 10 MEQ / WTR 10 MEQ in PREMIXED WATER 100 ML IV SCH ×2 (08:43→10:38)
--- NOTE | 2017-11-17 08:50 | Surgery Progress Note ---
Surgery Progress Note Date of Service Nov 17, 2017. Subjective + feeling well passed a little gas, pt denies nausea, no vomiting, NG 900ml Objective Vital Signs: Date Time Temp Pulse Resp B/P (MAP) Pulse Ox O2 Delivery O2 Flow Rate FiO2 11/17/17 07:56 86 18 91 Room Air 11/17/17 07:11 36.6 90 18 109/70 (83) 92 Room Air 11/17/17 00:05 Room Air 11/16/17 23:55 37.1 88 16 112/73 (86) 94 Room Air 11/16/17 21:39 82 116/74 (88) 11/16/17 15:45 Room Air 11/16/17 15:40 36.8 98 18 116/75 (89) 93 Room Air General Appearance: WD/WN, no apparent distress Head: normocephalic Neck: supple, no JVD Respiratory/Chest: chest non-tender, lungs clear Cardiovascular: regular rate, rhythm, no edema, no gallop, no JVD, no murmur Abdomen: normal bowel sounds, non tender, non distended, soft, no organomegaly Extremities: normal range of motion, non-tender, normal inspection Laboratory Results: Results Past 24 Hours Test 11/16/17 23:11 11/17/17 06:06 Range/Units Vancomycin Level Trough 12.0 SEE COMMENT mcg/ml White Blood Count 8.56 4.8-10.8 K/uL Red Blood Count 3.09 4.2-5.4 M/uL Hemoglobin 8.3 12.0-16.0 g/dL Hematocrit 27.2 37-47 % Mean Corpuscular Volume 88.0 80-100 fL Mean Corpuscular Hemoglobin 26.9 25-34 pg Mean Corpuscular Hemoglobin Concent 30.5 32-36 g/dl Platelet Count 348 130-400 K/uL Mean Platelet Volume 8.3 7.4-10.4 fL Neutrophils (%) (Auto) 63.8 % Lymphocytes (%) (Auto) 21.4 % Monocytes (%) (Auto) 12.3 % Eosinophils (%) (Auto) 1.9 % Basophils (%) (Auto) 0.2 % Neutrophils # (Auto) 5.47 1.4-6.5 K/uL Lymphocytes # (Auto) 1.83 1.2-3.4 K/uL Monocytes # (Auto) 1.05 0.11-0.59 K/uL Eosinophils # (Auto) 0.16 0-0.5 K/uL Basophils # (Auto) 0.02 0-0.2 K/uL RDW Standard Deviation 47.6 36.4-46.3 fL RDW Coefficient of Variation 14.7 11.5-14.5 % Immature Granulocyte % (Auto) 0.4 % Immature Granulocyte # (Auto) 0.03 0.00-0.02 K/uL Toxic Vacuolation 1+ Hypochromasia PRESENT Sodium Level 138 136-145 mmol/L Potassium Level 3.2 3.5-5.1 mmol/L Chloride Level 107 98-107 mmol/L Carbon Dioxide Level 24 21-32 mmol/L Anion Gap 7.0 3-11 mmol/L Blood Urea Nitrogen 7 7-18 mg/dl Creatinine 0.38 0.60-1.20 mg/dl Est Creatinine Clear Calc Drug Dose 144.6 ml/min Estimated GFR () 136.3 Estimated GFR (Non- 117.6 BUN/Creatinine Ratio 18.7 10-20 Random Glucose 108 70-99 mg/dl Calcium Level 8.1 8.5-10.1 mg/dl Magnesium Level 2.3 1.8-2.4 mg/dl Assessment & Plan continue treament will F/U rader main IV fluid to D5+ 0.5 NS + 30 MEQ KCL/1000ml at 100ml/h repeat labs in am correct low k,
[2017-11-17] MEDS: LUBIPROSTONE 8 MCG CAP PO SCH ×3 (09:00→21:00)
[2017-11-17] MEDS ORDERED: VANCOMYCIN IV 1,000 MG in SODIUM CHLORIDE 0.9% 250ML 250 ML IV SCH (10:00)
[2017-11-17] MEDS: ARIPIprazole TAB 15 MG TAB PO SCH (10:02)
[2017-11-17] MEDS: CETIRIZINE HCL 10 MG TAB PO SCH (10:03)
[2017-11-17 10:04] VITALS: Ht 157.5 cm; Wt 64.5 kg
[2017-11-17] MEDS: METOPROLOL TARTRATE 25 MG TAB NG SCH ×2 (10:05→21:07)
[2017-11-17] MEDS: GABAPENTIN 300 MG CAP PO SCH ×3 (10:06→21:03)
[2017-11-17] MEDS: BACLOFEN 10 MG TAB PO SCH ×3 (10:06→21:07)
[2017-11-17] MEDS: D5W AND 1/2NSS + 30MEQ KCL 1,000 ML IV SCH ×2 (10:38→19:37)
[2017-11-17] MEDS ORDERED: NURSING VERBAL MED ORDER ONE ×2 (10:45→11:00)
[2017-11-17] MEDS ORDERED: POTASSIUM CHLORIDE 20 MEQ/15 ML UDC PO ONE (11:15)
[2017-11-17] MEDS: ENOXAPARIN 40 MG/0.4 ML SYR SQ SCH (11:31)
--- NOTE | 2017-11-17 13:47 | Pharmacy Progress Note ---
Pharmacy Antibiotic Prog Note Date of Service Nov 17, 2017. Subjective The patient is currently receiving vancomycin 1000 mg IV every 12 hours. The patient is currently on day # 3 of vancomycin IV therapy. Objective Height (Feet): 5 Height (Inches): 2.00 Weight (Kilograms): 65.000 Levels: Item Value Date Time Vancomycin Level Trough 12.0 mcg/ml 11/16/17 2311 Previous dose hung 11/16 @1401 (a bit late) Lab Results (24hrs): Test 11/16/17 23:11 11/17/17 06:06 Vancomycin Level Trough 12.0 mcg/ml (SEE COMMENT) White Blood Count 8.56 K/uL (4.8-10.8) Red Blood Count 3.09 M/uL (4.2-5.4) Hemoglobin 8.3 g/dL (12.0-16.0) Hematocrit 27.2 % (37-47) Mean Corpuscular Volume 88.0 fL (80-100) Mean Corpuscular Hemoglobin 26.9 pg (25-34) Mean Corpuscular Hemoglobin Concent 30.5 g/dl (32-36) Platelet Count 348 K/uL (130-400) Mean Platelet Volume 8.3 fL (7.4-10.4) Neutrophils (%) (Auto) 63.8 % Lymphocytes (%) (Auto) 21.4 % Monocytes (%) (Auto) 12.3 % Eosinophils (%) (Auto) 1.9 % Basophils (%) (Auto) 0.2 % Neutrophils # (Auto) 5.47 K/uL (1.4-6.5) Lymphocytes # (Auto) 1.83 K/uL (1.2-3.4) Monocytes # (Auto) 1.05 K/uL (0.11-0.59) Eosinophils # (Auto) 0.16 K/uL (0-0.5) Basophils # (Auto) 0.02 K/uL (0-0.2) RDW Standard Deviation 47.6 fL (36.4-46.3) RDW Coefficient of Variation 14.7 % (11.5-14.5) Immature Granulocyte % (Auto) 0.4 % Immature Granulocyte # (Auto) 0.03 K/uL (0.00-0.02) Toxic Vacuolation 1+ Hypochromasia PRESENT Sodium Level 138 mmol/L (136-145) Potassium Level 3.2 mmol/L (3.5-5.1) Chloride Level 107 mmol/L (98-107) Carbon Dioxide Level 24 mmol/L (21-32) Anion Gap 7.0 mmol/L (3-11) Blood Urea Nitrogen 7 mg/dl (7-18) Creatinine 0.38 mg/dl (0.60-1.20) Est Creatinine Clear Calc Drug Dose 144.6 ml/min Estimated GFR () 136.3 Estimated GFR (Non- 117.6 BUN/Creatinine Ratio 18.7 (10-20) Random Glucose 108 mg/dl (70-99) Calcium Level 8.1 mg/dl (8.5-10.1) Magnesium Level 2.3 mg/dl (1.8-2.4) Micro Results: 11/15 drainage hip NG final Recent Pertinent Medications Item Value Date Time Vancomycin HCl 270 ml @ 125 mls/hr 11/17/17 1000 1000 mg/Sodium Q10H/IV 11/17/17 1038 Chloride Vancomycin HCl 270 ml @ 125 mls/hr 11/16/17 0000 1000 mg/Sodium Q12@0000,1200/IV 11/17/17 0001 Chloride Assessment & Plan This drug level is: Subtherapeutic. Will shorten dosing interval, and recheck trough in a few days is still receiving vancomycin. Change to vancomycin 1000 mg IV every 10 hours. Goal trough level estimate: between 15-20 mcg/mL. Trough has been ordered for: 11/19/17 before 0200 dose. Pharmacy will continue to follow and will adjust dose/frequency as necessary. Thank you
[2017-11-17 16:07] VITALS: BP 120/80; PULSE 90; TEMP 37; O2SAT 92
--- NOTE | 2017-11-17 16:12 | Progress Note ---
Internal Med Progress Note Date of Service: Nov 17, 2017. Provider Documentation: SUBJECTIVE: still requiring pain meds passed some gas today no nausea no sob afebrile OBJECTIVE: Vital Signs-as noted below Exam: General-Alert sand awake. Not in distress ENT-Normal hearing Neck-no neck masses supple Lungs-cta b/l no wheezing no crackles Heart-S1 and S2 heard regular rate and rthym, no murmurs Abdomen-Soft bowel sounds very sluggish mild diffuse tender no distension Extremities-no edema no erythema Neuro-alert and awake moves extremities Lab data as noted below. ASSESSMENT & PLAN: sbo on ng tube npo, iv fluids, iv pain meds and antiemetics prn slow improvement surgery on board to continue same for now Right thigh cellulitis hx of recurrent infection started on iv vanco ortho consult-appreciate input will stop abx Hx of PSVT s/p ablation on Toprol xl Copd stable Chronic pain on fentanyl patch. DVT PROPHYLAXIS Lovenox-refused scds DISPOSITION monitor on medical floor Vital Signs: Date Time Temp Pulse Resp B/P (MAP) Pulse Ox O2 Delivery O2 Flow Rate FiO2 11/17/17 16:07 37.0 90 18 120/80 (93) 92 Room Air 11/17/17 07:56 86 18 91 Room Air 11/17/17 07:49 Room Air 11/17/17 07:11 36.6 90 18 109/70 (83) 92 Room Air 11/17/17 00:05 Room Air 11/16/17 23:55 37.1 88 16 112/73 (86) 94 Room Air 11/16/17 21:39 82 116/74 (88) Lab Results: Results Past 24 Hours Test 11/16/17 23:11 11/17/17 06:06 Range/Units Vancomycin Level Trough 12.0 SEE COMMENT mcg/ml White Blood Count 8.56 4.8-10.8 K/uL Red Blood Count 3.09 4.2-5.4 M/uL Hemoglobin 8.3 12.0-16.0 g/dL Hematocrit 27.2 37-47 % Mean Corpuscular Volume 88.0 80-100 fL Mean Corpuscular Hemoglobin 26.9 25-34 pg Mean Corpuscular Hemoglobin Concent 30.5 32-36 g/dl Platelet Count 348 130-400 K/uL Mean Platelet Volume 8.3 7.4-10.4 fL Neutrophils (%) (Auto) 63.8 % Lymphocytes (%) (Auto) 21.4 % Monocytes (%) (Auto) 12.3 % Eosinophils (%) (Auto) 1.9 % Basophils (%) (Auto) 0.2 % Neutrophils # (Auto) 5.47 1.4-6.5 K/uL Lymphocytes # (Auto) 1.83 1.2-3.4 K/uL Monocytes # (Auto) 1.05 0.11-0.59 K/uL Eosinophils # (Auto) 0.16 0-0.5 K/uL Basophils # (Auto) 0.02 0-0.2 K/uL RDW Standard Deviation 47.6 36.4-46.3 fL RDW Coefficient of Variation 14.7 11.5-14.5 % Immature Granulocyte % (Auto) 0.4 % Immature Granulocyte # (Auto) 0.03 0.00-0.02 K/uL Toxic Vacuolation 1+ Hypochromasia PRESENT Sodium Level 138 136-145 mmol/L Potassium Level 3.2 3.5-5.1 mmol/L Chloride Level 107 98-107 mmol/L Carbon Dioxide Level 24 21-32 mmol/L Anion Gap 7.0 3-11 mmol/L Blood Urea Nitrogen 7 7-18 mg/dl Creatinine 0.38 0.60-1.20 mg/dl Est Creatinine Clear Calc Drug Dose 144.6 ml/min Estimated GFR () 136.3 Estimated GFR (Non- 117.6 BUN/Creatinine Ratio 18.7 10-20 Random Glucose 108 70-99 mg/dl Calcium Level 8.1 8.5-10.1 mg/dl Magnesium Level 2.3 1.8-2.4 mg/dl
--- NOTE | 2017-11-17 18:04 | PROGRESS NOTE ---
DATE: 11/17/2017 CHIEF COMPLAINT: Status post I&D of the right hip. PROGRESS: Jennifer was seen and examined at bedside today. Unfortunately, she now has a small bowel obstruction. I did a total hip on her about 8 months ago. She had a little bit of drainage late and I took her for an I&D of her hip on October 17. I did not see much in the form of abscess collection, I swabbed the femoral head and nothing grew out. I did elevate the soft tissue planes and could not find any abscess collection. I placed an incisional VAC. Unfortunately, she pulled VAC off, and she developed a little bit of a seroma, possible hematoma in the area. She returned back to the hospital and I had the radiologist aspirate the hardened area and it did not grow any significant bacteria. She was treated on IV antibiotics and discharged home on oral antibiotics. I have been following her in the office. Her hip is doing okay. She still has a little bit of induration in the area but the drainage has stopped. She is able to ambulate with a cane. Unfortunately, she now presents with a small-bowel obstruction. PHYSICAL EXAMINATION: RIGHT HIP: There is an indurated area, but I feel like that there is a hematoma, possible seroma underneath. There is no erythema or signs of infection. She has good range of motion of her hip. She has always had chronic pain of her right lower extremity. She is neurovascularly intact. IMPRESSION: Status post incision and drainage of the right hip with possible seroma versus hematoma. PLAN: We will continue to give this a little bit of time. The indurated area should resorb on its own. I do not see any orthopedic indications at this time. She can continue to be weightbearing as tolerated and follow up with me in the office as previously scheduled.
[2017-11-17 21:00] VITALS: BP 134/78; PULSE 87; PULSE 88; O2SAT 93
[2017-11-17] MEDS: MONTELUKAST SOD 10 MG TAB PO SCH (21:08)
[2017-11-17 22:53] VITALS: BP 116/74; PULSE 79; TEMP 37; O2SAT 95
[2017-11-18] VITALS (7 sets, daily range): BP systolic 111–127; BP diastolic 75–79; PULSE 64–82; TEMP 36.6–36.9; O2SAT 92–96
[2017-11-18] MEDS: HYDROmorphone INJ 1 MG/ML SYR IV PRN ×5 (02:22→22:14)
[2017-11-18] MEDS: D5W AND 1/2NSS + 30MEQ KCL 1,000 ML IV SCH ×2 (04:59→15:16)
[2017-11-18] MEDS: METOCLOPRAMIDE HCL INJ 5 MG/ML 2 ML VIAL IV SCH ×3 (05:28→17:18)
[2017-11-18] MEDS: FORMOTEROL FUMA NEBULIZER SOLN 20 MCG/2 ML VIAL INH SCH ×2 (08:08→20:25)
[2017-11-18] MEDS: LORAZEPAM INJ 0.5 MG in SYRINGE 0.75 ML IV PRN ×2 (08:14→20:49)
[2017-11-18] MEDS: CHECK FENTANYL PATCH PLACEMENT SCH ×2 (08:14→15:16)
[2017-11-18 08:19] LABS: BASO % 0.3 %; BASO ABS # 0.02 K/uL (0-0.2); EOS % 2.2 %; EOS ABS # 0.16 K/uL (0-0.5); HEMATOCRIT 28.1 % (37-47); HEMOGLOBIN 8.8 g/dL (12.0-16.0); IG# 0.02 K/uL (0.00-0.02); LYMPH % 22.5 %; LYMPH ABS # 1.65 K/uL (1.2-3.4); MEAN CELL VOLUME 87.5 fL (80-100); MEAN CORPUSCULAR HEMOGLOBIN 27.4 pg (25-34); MEAN CORPUSCULAR HGB CONC 31.3 g/dl (32-36); MEAN PLATELET VOLUME 8.7 fL (7.4-10.4); MONO % 11.6 %; MONO ABS # 0.85 K/uL (0.11-0.59); NEUT % 63.1 %; NEUT ABS # 4.62 K/uL (1.4-6.5); PLATELET COUNT 344 K/uL (130-400); RED CELL DISTRIBUTION WIDTH CV 14.7 % (11.5-14.5); RED CELL DISTRIBUTION WIDTH SD 47.1 fL (36.4-46.3); WHITE BLOOD COUNT 7.32 K/uL (4.8-10.8)
[2017-11-18] MEDS: FENTANYL 25 MCG/HR TDSY TD SCH (09:17)
[2017-11-18] MEDS: FENTANYL PATCH REMOVE & WASTE SCH (09:17)
[2017-11-18] MEDS: ARIPIprazole TAB 15 MG TAB PO SCH (09:23)
[2017-11-18] MEDS: LUBIPROSTONE 8 MCG CAP PO SCH ×2 (09:24→20:52)
[2017-11-18] MEDS: METOPROLOL TARTRATE 25 MG TAB NG SCH ×2 (09:25→20:56)
[2017-11-18 09:26] LABS: CALCIUM 8.6 mg/dl (8.5-10.1); CREATININE 0.39 mg/dl (0.60-1.20)
[2017-11-18] MEDS: GABAPENTIN 300 MG CAP PO SCH ×3 (09:27→20:50)
[2017-11-18] MEDS: BACLOFEN 10 MG TAB PO SCH ×3 (09:27→20:53)
[2017-11-18] MEDS: CETIRIZINE HCL 10 MG TAB PO SCH (09:28)
--- NOTE | 2017-11-18 09:46 | Surgery Progress Note ---
Surgery Progress Note Date of Service Nov 18, 2017. Subjective Post OP Day: HD # 3 + feeling well feeling better than yesterday still has generalized abdominal pain but improved Passing more flatus than yesterday No nausea or vomiting no chest pain or shortness of breath was oob to chair most of yesterday and ambulating halls Objective Vital Signs: Date Time Temp Pulse Resp B/P (MAP) Pulse Ox O2 Delivery O2 Flow Rate FiO2 11/18/17 08:09 82 16 94 Room Air 11/18/17 08:01 92 Room Air 11/18/17 07:49 36.8 79 18 122/76 (91) 92 Room Air 11/18/17 07:05 36.9 73 20 118/79 (92) 96 Room Air 11/17/17 23:32 Room Air 11/17/17 22:53 37.0 79 14 116/74 (88) 95 Room Air 11/17/17 21:00 88 16 93 Room Air 11/17/17 21:00 87 134/78 (96) 11/17/17 20:00 Room Air 11/17/17 16:07 37.0 90 18 120/80 (93) 92 Room Air Physical Exam: nasogastric drainage (dark brown output) General Appearance: WD/WN, no apparent distress Head: normocephalic, atraumatic Neck: trachea midline Respiratory/Chest: lungs clear, normal breath sounds, no respiratory distress, no accessory muscle use Cardiovascular: regular rate, rhythm, no murmur Abdomen: non distended, soft, no organomegaly, no pulsatile mass, + tenderness (generalized tenderness on deep palpation, no rigidity, guarding, rebound, or peritonitis) Laboratory Results: Results Past 24 Hours Test 11/18/17 07:42 Range/Units White Blood Count 7.32 4.8-10.8 K/uL Red Blood Count 3.21 4.2-5.4 M/uL Hemoglobin 8.8 12.0-16.0 g/dL Hematocrit 28.1 37-47 % Mean Corpuscular Volume 87.5 80-100 fL Mean Corpuscular Hemoglobin 27.4 25-34 pg Mean Corpuscular Hemoglobin Concent 31.3 32-36 g/dl Platelet Count 344 130-400 K/uL Mean Platelet Volume 8.7 7.4-10.4 fL Neutrophils (%) (Auto) 63.1 % Lymphocytes (%) (Auto) 22.5 % Monocytes (%) (Auto) 11.6 % Eosinophils (%) (Auto) 2.2 % Basophils (%) (Auto) 0.3 % Neutrophils # (Auto) 4.62 1.4-6.5 K/uL Lymphocytes # (Auto) 1.65 1.2-3.4 K/uL Monocytes # (Auto) 0.85 0.11-0.59 K/uL Eosinophils # (Auto) 0.16 0-0.5 K/uL Basophils # (Auto) 0.02 0-0.2 K/uL RDW Standard Deviation 47.1 36.4-46.3 fL RDW Coefficient of Variation 14.7 11.5-14.5 % Immature Granulocyte % (Auto) 0.3 % Immature Granulocyte # (Auto) 0.02 0.00-0.02 K/uL Hypochromasia PRESENT Poikilocytosis PRESENT Sodium Level 134 136-145 mmol/L Potassium Level 4.0 3.5-5.1 mmol/L Chloride Level 104 98-107 mmol/L Carbon Dioxide Level 23 21-32 mmol/L Anion Gap 7.0 3-11 mmol/L Blood Urea Nitrogen 3 7-18 mg/dl Creatinine 0.39 0.60-1.20 mg/dl Est Creatinine Clear Calc Drug Dose 140.9 ml/min Estimated GFR () 135.1 Estimated GFR (Non- 116.6 BUN/Creatinine Ratio 7.8 10-20 Random Glucose 100 70-99 mg/dl Calcium Level 8.6 8.5-10.1 mg/dl Magnesium Level 2.3 1.8-2.4 mg/dl Assessment & Plan Partial Small Bowel obstruction- resolving - vitals stable, no leukocytosis - passing flatus, bowel movement this am after my evaluation - NGT with 1475 cc output yesterday Plan: Discontinue NGT Start clear liquids, advised patient to take it slow , stop if any nausea or vomiting Advance diet as tolerated Continue current pain management Encouraged continued ambulation continue current medical management Dr. Campos has seen and examined patient, agrees with above
[2017-11-18] MEDS: ENOXAPARIN 40 MG/0.4 ML SYR SQ SCH (13:12)
--- NOTE | 2017-11-18 17:16 | Progress Note ---
Internal Med Progress Note Date of Service: Nov 18, 2017. Provider Documentation: SUBJECTIVE: had a bowel movement today off of ng tube tolerating clears has mild abdominal tenderness afebrile OBJECTIVE: Vital Signs-as noted below Exam: General-Alert sand awake. Not in distress ENT-Normal hearing Neck-no neck masses supple Lungs-cta b/l no wheezing no crackles Heart-S1 and S2 heard regular rate and rthym, no murmurs Abdomen-Soft bowel sounds very sluggish mild diffuse tender no distension Extremities-no edema no erythema Neuro-alert and awake moves extremities Lab data as noted below. ASSESSMENT & PLAN: sbo Was on ng tube npo, iv fluids, iv pain meds and antiemetics prn moved bowels today Off f NG tube tolerating clears surgery on board will monitor Right thigh cellulitis hx of recurrent infection started on iv vanco ortho consult-appreciate input cx no growth sopped abx Hx of PSVT s/p ablation on Toprol xl Copd stable Chronic pain on fentanyl patch. DVT PROPHYLAXIS Lovenox-refused scds DISPOSITION monitor on medical floor Vital Signs: Date Time Temp Pulse Resp B/P (MAP) Pulse Ox O2 Delivery O2 Flow Rate FiO2 11/18/17 15:20 Room Air 11/18/17 15:00 36.6 64 18 111/76 (88) 96 Room Air 11/18/17 08:09 82 16 94 Room Air 11/18/17 08:01 92 Room Air 11/18/17 07:49 36.8 79 18 122/76 (91) 92 Room Air 11/18/17 07:45 Room Air 11/18/17 07:05 36.9 73 20 118/79 (92) 96 Room Air 11/17/17 23:32 Room Air 11/17/17 22:53 37.0 79 14 116/74 (88) 95 Room Air 11/17/17 21:00 88 16 93 Room Air 11/17/17 21:00 87 134/78 (96) 11/17/17 20:00 Room Air Lab Results: Results Past 24 Hours Test 11/18/17 07:42 Range/Units White Blood Count 7.32 4.8-10.8 K/uL Red Blood Count 3.21 4.2-5.4 M/uL Hemoglobin 8.8 12.0-16.0 g/dL Hematocrit 28.1 37-47 % Mean Corpuscular Volume 87.5 80-100 fL Mean Corpuscular Hemoglobin 27.4 25-34 pg Mean Corpuscular Hemoglobin Concent 31.3 32-36 g/dl Platelet Count 344 130-400 K/uL Mean Platelet Volume 8.7 7.4-10.4 fL Neutrophils (%) (Auto) 63.1 % Lymphocytes (%) (Auto) 22.5 % Monocytes (%) (Auto) 11.6 % Eosinophils (%) (Auto) 2.2 % Basophils (%) (Auto) 0.3 % Neutrophils # (Auto) 4.62 1.4-6.5 K/uL Lymphocytes # (Auto) 1.65 1.2-3.4 K/uL Monocytes # (Auto) 0.85 0.11-0.59 K/uL Eosinophils # (Auto) 0.16 0-0.5 K/uL Basophils # (Auto) 0.02 0-0.2 K/uL RDW Standard Deviation 47.1 36.4-46.3 fL RDW Coefficient of Variation 14.7 11.5-14.5 % Immature Granulocyte % (Auto) 0.3 % Immature Granulocyte # (Auto) 0.02 0.00-0.02 K/uL Hypochromasia PRESENT Poikilocytosis PRESENT Sodium Level 134 136-145 mmol/L Potassium Level 4.0 3.5-5.1 mmol/L Chloride Level 104 98-107 mmol/L Carbon Dioxide Level 23 21-32 mmol/L Anion Gap 7.0 3-11 mmol/L Blood Urea Nitrogen 3 7-18 mg/dl Creatinine 0.39 0.60-1.20 mg/dl Est Creatinine Clear Calc Drug Dose 140.9 ml/min Estimated GFR () 135.1 Estimated GFR (Non- 116.6 BUN/Creatinine Ratio 7.8 10-20 Random Glucose 100 70-99 mg/dl Calcium Level 8.6 8.5-10.1 mg/dl Magnesium Level 2.3 1.8-2.4 mg/dl
[2017-11-18] MEDS: MONTELUKAST SOD 10 MG TAB PO SCH (20:56)
[2017-11-19] VITALS (7 sets, daily range): BP systolic 127–158; BP diastolic 83–93; PULSE 71–79; TEMP 36.6–36.8; O2SAT 91–95
[2017-11-19] MEDS: CHECK FENTANYL PATCH PLACEMENT SCH ×4 (00:16→23:50)
[2017-11-19] MEDS: METOCLOPRAMIDE HCL INJ 5 MG/ML 2 ML VIAL IV SCH ×5 (00:19→23:58)
[2017-11-19] MEDS ORDERED: VANCOMYCIN TROUGH ONE (01:30)
[2017-11-19] MEDS: D5W AND 1/2NSS + 30MEQ KCL 1,000 ML IV SCH ×2 (01:34→10:39)
[2017-11-19] MEDS: HYDROmorphone INJ 1 MG/ML SYR IV PRN ×4 (02:19→13:14)
[2017-11-19] MEDS: METOPROLOL TARTRATE 25 MG TAB NG SCH ×2 (08:53→22:10)
[2017-11-19] MEDS: GABAPENTIN 300 MG CAP PO SCH ×3 (08:54→20:33)
[2017-11-19] MEDS: BACLOFEN 10 MG TAB PO SCH ×3 (08:55→20:32)
[2017-11-19] MEDS: ARIPIprazole TAB 15 MG TAB PO SCH (08:55)
[2017-11-19] MEDS: LUBIPROSTONE 8 MCG CAP PO SCH ×2 (08:58→20:30)
[2017-11-19] MEDS: CETIRIZINE HCL 10 MG TAB PO SCH (08:59)
--- NOTE | 2017-11-19 09:41 | Surgery Progress Note ---
Surgery Progress Note Date of Service Nov 19, 2017. Subjective Post OP Day: HD # 4 Having some abdominal bloating and gas Not passing much gas but had 3 small bowel movements Mild abdominal pain Slight nausea with clears and low appetite States she walked halls 2 times yesterday Objective Vital Signs: Date Time Temp Pulse Resp B/P (MAP) Pulse Ox O2 Delivery O2 Flow Rate FiO2 11/19/17 08:50 71 146/84 (104) 11/19/17 07:32 36.6 76 16 127/83 (98) 95 Room Air 11/18/17 23:14 36.8 79 20 127/75 (92) 96 Room Air 11/18/17 20:26 64 16 96 Room Air 11/18/17 15:20 Room Air 11/18/17 15:00 36.6 64 18 111/76 (88) 96 Room Air General Appearance: WD/WN, no apparent distress Head: normocephalic, atraumatic Neck: trachea midline Respiratory/Chest: no respiratory distress, no accessory muscle use Abdomen: non distended, soft, no organomegaly, no pulsatile mass, + tenderness (mild generalized tenderness), + pertinent finding (midline laparotomy scar present) Assessment & Plan Partial Small Bowel obstruction- resolving - vitals stable - passing flatus, + bowel movement - slight nausea with clears no vomiting, low appetite Plan: Continue clear liquids, advised patient to take it slow Continue current pain management, would recommend decreasing amount of narcotics if possible Encouraged continued ambulation continue current medical management Dr. Campos has seen and examined patient, agrees with above
[2017-11-19] MEDS: ENOXAPARIN 40 MG/0.4 ML SYR SQ SCH (12:09)
[2017-11-19] MEDS: ONDANSETRON INJ 2 MG/ML 2 ML VIAL IV PRN ×2 (15:30→22:11)
[2017-11-19] MEDS: LORAZEPAM 1 MG TAB PO PRN (16:43)
[2017-11-19] MEDS: HYDROmorphone INJ 0.5 MG/0.5 ML SYR IV PRN (19:05)
--- NOTE | 2017-11-19 19:10 | Progress Note ---
Internal Med Progress Note Date of Service: Nov 19, 2017. Provider Documentation: SUBJECTIVE: says abdominal is somewhat worse today as we tapering pain meds has nausea not eating much says not moved bowels today no sob OBJECTIVE: Vital Signs-as noted below Exam: General-Alert sand awake. Not in distress ENT-Normal hearing Neck-no neck masses supple Lungs-cta b/l no wheezing no crackles Heart-S1 and S2 heard regular rate and rthym, no murmurs Abdomen-Soft bowel sounds very sluggish mild diffuse tender no distension Extremities-no edema no erythema Neuro-alert and awake moves extremities Lab data as noted below. ASSESSMENT & PLAN: sbo Was on ng tube npo, iv fluids, iv pain meds and antiemetics prn moved bowels today Off f NG tube tolerating clears surgery on board still has pain will f/u kub Right thigh cellulitis hx of recurrent infection started on iv vanco ortho consult-appreciate input cx no growth stopped abx Hx of PSVT s/p ablation on Toprol xl Copd stable Chronic pain on fentanyl patch. DVT PROPHYLAXIS Lovenox-refused scds ambulate DISPOSITION monitor on medical floor Vital Signs: Date Time Temp Pulse Resp B/P (MAP) Pulse Ox O2 Delivery O2 Flow Rate FiO2 11/19/17 15:40 Room Air 11/19/17 15:19 36.7 78 18 137/86 (103) 92 Room Air 11/19/17 08:50 71 146/84 (104) 11/19/17 08:00 95 Room Air 11/19/17 07:32 36.6 76 16 127/83 (98) 95 Room Air 11/18/17 23:14 36.8 79 20 127/75 (92) 96 Room Air 11/18/17 20:26 64 16 96 Room Air
[2017-11-19] MEDS: FORMOTEROL FUMA NEBULIZER SOLN 20 MCG/2 ML VIAL INH SCH (20:01)
--- NOTE | 2017-11-19 20:04 | DIAGNOSTIC IMAGING REPORT ---
KUB CLINICAL HISTORY: worsening abd pain COMPARISON STUDY: 11/16/2017 FINDINGS: There are postsurgical changes of spinal rodding. There are dilated small bowel loops measuring up to 5.5 cm in diameter. There are extensive postsurgical changes present within the spine and pelvis. There are postsurgical changes of a right hip arthroplasty. There is lucency between the right femoral spike and adjacent bone. This could indicate loosening. IMPRESSION: 1. Progressive small bowel dilatation. The findings are viewed as worrisome for a small bowel obstruction 2. Extensive postsurgical changes present within the spine and pelvis 3. Total right hip arthroplasty. Lucency between the right femoral spike and adjacent bone. Prosthetic loosening cannot be excluded Electronically signed by: Sukhdev Crenshaw M.D. 11/19/2017 8:03 PM Dictated Date/Time: 11/19/2017 7:59 PM
[2017-11-19] MEDS: D5NSS + 20MEQ KCL 1,000 ML IV SCH (20:18)
[2017-11-19] MEDS: MONTELUKAST SOD 10 MG TAB PO SCH (20:34)
[2017-11-19] MEDS ORDERED: NURSING VERBAL MED ORDER ONE (22:00)
[2017-11-19] MEDS: CYCLOBENZAPRINE HCL 10 MG TAB PO PRN (22:08)
[2017-11-19] MEDS ORDERED: LORAZEPAM 0.5 MG TAB PO ONE (23:00)
[2017-11-19] MEDS ORDERED: KETOROLAC TROMETHAMINE 15 MG/ML VIAL IV. ONE (23:46)
--- NOTE | 2017-11-19 23:48 | Progress Note ---
Internal Med Progress Note Date of Service: Nov 19, 2017. Provider Documentation: Patient complaining of increased abdominal pain. Repeat KUB showed progressive bowel obstruction. AP SBO Progressive symptoms Reinsert NGT Will relay to AM provider. Vital Signs: Date Time Temp Pulse Resp B/P (MAP) Pulse Ox O2 Delivery O2 Flow Rate FiO2 11/20/17 08:00 Room Air 11/20/17 08:00 70 16 93 Room Air 11/20/17 07:49 93 Room Air 11/20/17 07:40 36.6 75 14 110/73 (85) 93 Room Air 11/20/17 01:00 Room Air 11/19/17 22:56 36.8 79 17 158/93 (114) 91 Room Air 11/19/17 20:27 79 153/88 (109) 11/19/17 20:03 78 16 92 Room Air 11/19/17 15:40 Room Air 11/19/17 15:19 36.7 78 18 137/86 (103) 92 Room Air Lab Results: Results Past 24 Hours Test 11/20/17 08:41 Range/Units White Blood Count 6.30 4.8-10.8 K/uL Red Blood Count 3.50 4.2-5.4 M/uL Hemoglobin 9.4 12.0-16.0 g/dL Hematocrit 30.4 37-47 % Mean Corpuscular Volume 86.9 80-100 fL Mean Corpuscular Hemoglobin 26.9 25-34 pg Mean Corpuscular Hemoglobin Concent 30.9 32-36 g/dl Platelet Count 359 130-400 K/uL Mean Platelet Volume 8.7 7.4-10.4 fL Neutrophils (%) (Auto) 56.8 % Lymphocytes (%) (Auto) 27.6 % Monocytes (%) (Auto) 13.5 % Eosinophils (%) (Auto) 1.3 % Basophils (%) (Auto) 0.6 % Neutrophils # (Auto) 3.58 1.4-6.5 K/uL Lymphocytes # (Auto) 1.74 1.2-3.4 K/uL Monocytes # (Auto) 0.85 0.11-0.59 K/uL Eosinophils # (Auto) 0.08 0-0.5 K/uL Basophils # (Auto) 0.04 0-0.2 K/uL RDW Standard Deviation 46.0 36.4-46.3 fL RDW Coefficient of Variation 14.5 11.5-14.5 % Immature Granulocyte % (Auto) 0.2 % Immature Granulocyte # (Auto) 0.01 0.00-0.02 K/uL Sodium Level 136 136-145 mmol/L Potassium Level 4.0 3.5-5.1 mmol/L Chloride Level 105 98-107 mmol/L Carbon Dioxide Level 22 21-32 mmol/L Anion Gap 9.0 3-11 mmol/L Blood Urea Nitrogen 3 7-18 mg/dl Creatinine 0.56 0.60-1.20 mg/dl Est Creatinine Clear Calc Drug Dose 98.1 ml/min Estimated GFR () 120.0 Estimated GFR (Non- 103.5 BUN/Creatinine Ratio 6.2 10-20 Random Glucose 102 70-99 mg/dl Calcium Level 9.0 8.5-10.1 mg/dl Magnesium Level 2.3 1.8-2.4 mg/dl
[2017-11-20] VITALS (7 sets, daily range): BP systolic 110–114; BP diastolic 72–74; PULSE 69–76; TEMP 36.6–37.3; O2SAT 90–96
[2017-11-20] MEDS ORDERED: DOCUSATE SODIUM/SENNA 50/8.6MG TAB PO ONE (02:57)
[2017-11-20] MEDS: D5NSS + 20MEQ KCL 1,000 ML IV SCH ×2 (04:49→14:13)
[2017-11-20] MEDS: ACETAMINOPHEN IV 650 MG in EMPTY BAG 0 ML IV PRN ×2 (05:28→18:29)
[2017-11-20] MEDS: METOCLOPRAMIDE HCL INJ 5 MG/ML 2 ML VIAL IV SCH ×3 (05:28→18:29)
[2017-11-20] MEDS: FORMOTEROL FUMA NEBULIZER SOLN 20 MCG/2 ML VIAL INH SCH ×2 (08:00→20:02)
[2017-11-20] MEDS: KETOROLAC TROMETHAMINE 15 MG/ML VIAL IV. PRN ×3 (08:12→23:57)
[2017-11-20] MEDS: CHECK FENTANYL PATCH PLACEMENT SCH ×2 (08:15→15:57)
[2017-11-20 09:41] LABS: BASO % 0.6 %; BASO ABS # 0.04 K/uL (0-0.2); EOS % 1.3 %; EOS ABS # 0.08 K/uL (0-0.5); HEMATOCRIT 30.4 % (37-47); HEMOGLOBIN 9.4 g/dL (12.0-16.0); IG# 0.01 K/uL (0.00-0.02); LYMPH % 27.6 %; LYMPH ABS # 1.74 K/uL (1.2-3.4); MEAN CELL VOLUME 86.9 fL (80-100); MEAN CORPUSCULAR HEMOGLOBIN 26.9 pg (25-34); MEAN CORPUSCULAR HGB CONC 30.9 g/dl (32-36); MEAN PLATELET VOLUME 8.7 fL (7.4-10.4); MONO % 13.5 %; MONO ABS # 0.85 K/uL (0.11-0.59); NEUT % 56.8 %; NEUT ABS # 3.58 K/uL (1.4-6.5); PLATELET COUNT 359 K/uL (130-400); RED CELL DISTRIBUTION WIDTH CV 14.5 % (11.5-14.5)
[2017-11-20] MEDS: HYDROmorphone INJ 0.5 MG/0.5 ML SYR IV PRN ×2 (09:56→20:08)
[2017-11-20] MEDS: METOPROLOL TARTRATE 25 MG TAB NG SCH ×2 (09:59→21:42)
[2017-11-20] MEDS: BACLOFEN 10 MG TAB PO SCH ×3 (10:01→21:38)
[2017-11-20] MEDS: GABAPENTIN 300 MG CAP PO SCH ×3 (10:01→21:00)
[2017-11-20] MEDS: ARIPIprazole TAB 15 MG TAB PO SCH (10:01)
[2017-11-20] MEDS: LUBIPROSTONE 8 MCG CAP PO SCH ×2 (10:07→21:40)
[2017-11-20 10:08] LABS: CREATININE 0.56 mg/dl (0.60-1.20)
[2017-11-20] MEDS: CETIRIZINE HCL 10 MG TAB PO SCH (10:08)
--- NOTE | 2017-11-20 11:30 | Surgery Progress Note ---
Surgery Progress Note Date of Service Nov 20, 2017. Subjective Post OP Day: HD # 5 Patient had increased abdominal pain last evening, KUB showed persistent dilated small bowel concerning of small bowel obstruction. NGT was placed again and over 2 liters has been drained since. Patient states she feels 100% better compared to last night Abdomen does not feel bloated and gas pains yesterday morning have resolved small amounts of flatus, no bowel movement since yesterday no nausea or vomiting since NGT placement Objective Vital Signs: Date Time Temp Pulse Resp B/P (MAP) Pulse Ox O2 Delivery O2 Flow Rate FiO2 11/20/17 08:00 Room Air 11/20/17 08:00 70 16 93 Room Air 11/20/17 07:49 93 Room Air 11/20/17 07:40 36.6 75 14 110/73 (85) 93 Room Air 11/20/17 01:00 Room Air 11/19/17 22:56 36.8 79 17 158/93 (114) 91 Room Air 11/19/17 20:27 79 153/88 (109) 11/19/17 20:03 78 16 92 Room Air 11/19/17 15:40 Room Air 11/19/17 15:19 36.7 78 18 137/86 (103) 92 Room Air General Appearance: WD/WN, no apparent distress Head: normocephalic, atraumatic Neck: trachea midline Respiratory/Chest: no respiratory distress, no accessory muscle use Abdomen: non distended, soft, no organomegaly, no pulsatile mass, + tenderness (in the upper abdomen more so than lower abdomen, voluntary guarding however no rigidity, rebound, or peritonitis), + pertinent finding (midline laparotomy scar present) Laboratory Results: Results Past 24 Hours Test 11/20/17 08:41 Range/Units White Blood Count 6.30 4.8-10.8 K/uL Red Blood Count 3.50 4.2-5.4 M/uL Hemoglobin 9.4 12.0-16.0 g/dL Hematocrit 30.4 37-47 % Mean Corpuscular Volume 86.9 80-100 fL Mean Corpuscular Hemoglobin 26.9 25-34 pg Mean Corpuscular Hemoglobin Concent 30.9 32-36 g/dl Platelet Count 359 130-400 K/uL Mean Platelet Volume 8.7 7.4-10.4 fL Neutrophils (%) (Auto) 56.8 % Lymphocytes (%) (Auto) 27.6 % Monocytes (%) (Auto) 13.5 % Eosinophils (%) (Auto) 1.3 % Basophils (%) (Auto) 0.6 % Neutrophils # (Auto) 3.58 1.4-6.5 K/uL Lymphocytes # (Auto) 1.74 1.2-3.4 K/uL Monocytes # (Auto) 0.85 0.11-0.59 K/uL Eosinophils # (Auto) 0.08 0-0.5 K/uL Basophils # (Auto) 0.04 0-0.2 K/uL RDW Standard Deviation 46.0 36.4-46.3 fL RDW Coefficient of Variation 14.5 11.5-14.5 % Immature Granulocyte % (Auto) 0.2 % Immature Granulocyte # (Auto) 0.01 0.00-0.02 K/uL Sodium Level 136 136-145 mmol/L Potassium Level 4.0 3.5-5.1 mmol/L Chloride Level 105 98-107 mmol/L Carbon Dioxide Level 22 21-32 mmol/L Anion Gap 9.0 3-11 mmol/L Blood Urea Nitrogen 3 7-18 mg/dl Creatinine 0.56 0.60-1.20 mg/dl Est Creatinine Clear Calc Drug Dose 98.1 ml/min Estimated GFR () 120.0 Estimated GFR (Non- 103.5 BUN/Creatinine Ratio 6.2 10-20 Random Glucose 102 70-99 mg/dl Calcium Level 9.0 8.5-10.1 mg/dl Magnesium Level 2.3 1.8-2.4 mg/dl Assessment & Plan Partial SBO - vitals stable, afebrile - no leukocytosis - pain significantly improved since replacement of NGT - Over 2 L of brown bilious NGT output - abdomen soft, tender in upper quadrants, no involuntary guarding or peritonitis Plan: Continue conservative management: NPO, NGT to LIS, IV pain medication, IV Zofran as needed Highly recommend continued ambulation and OOB to chair as much as possible Recommend limiting amount of narcotics to as little as possible Continue conservative management [place] [facility] surgeons to cover this weekend Dr. Campos has seen patient, agrees with above
[2017-11-20] MEDS: ENOXAPARIN 40 MG/0.4 ML SYR SQ SCH (12:42)
--- NOTE | 2017-11-20 20:12 | Progress Note ---
Internal Med Progress Note Date of Service: Nov 20, 2017. Provider Documentation: SUBJECTIVE: says feeling better after placing back on NG tube passing gas now afebrile no sob OBJECTIVE: Vital Signs-as noted below Exam: General-Alert sand awake. Not in distress ENT-Normal hearing Neck-no neck masses supple Lungs-cta b/l no wheezing no crackles Heart-S1 and S2 heard regular rate and rthym, no murmurs Abdomen-Soft bowel sounds very sluggish mild diffuse tender no distension Extremities-no edema no erythema Neuro-alert and awake moves extremities Lab data as noted below. ASSESSMENT & PLAN: sbo Was on ng tube npo, iv fluids, iv pain meds and antiemetics prn moved bowels Off f NG tube tolerating clears surgery on board but again developed abdominal pain last evening and KUB shows worseing sbo placed back on NG tube and feeling better. Right thigh cellulitis hx of recurrent infection started on iv [facility]anco ortho consult-appreciate input cx no growth stopped abx Hx of PSVT s/p ablation on Toprol xl Copd stable Chronic pain on fentanyl patch. DVT PROPHYLAXIS Lovenox-refused scds ambulate DISPOSITION monitor on medical floor Vital Signs: Date Time Temp Pulse Resp B/P (MAP) Pulse Ox O2 Delivery O2 Flow Rate FiO2 11/20/17 20:03 69 16 96 Room Air 11/20/17 16:00 Room Air 11/20/17 15:02 37.3 74 16 110/72 (85) 95 Room Air 11/20/17 08:00 Room Air 11/20/17 08:00 70 16 93 Room Air 11/20/17 07:49 93 Room Air 11/20/17 07:40 36.6 75 14 110/73 (85) 93 Room Air 11/20/17 01:00 Room Air 11/19/17 22:56 36.8 79 17 158/93 (114) 91 Room Air 11/19/17 20:27 79 153/88 (109) Lab Results: Results Past 24 Hours Test 11/20/17 08:41 Range/Units White Blood Count 6.30 4.8-10.8 K/uL Red Blood Count 3.50 4.2-5.4 M/uL Hemoglobin 9.4 12.0-16.0 g/dL Hematocrit 30.4 37-47 % Mean Corpuscular Volume 86.9 80-100 fL Mean Corpuscular Hemoglobin 26.9 25-34 pg Mean Corpuscular Hemoglobin Concent 30.9 32-36 g/dl Platelet Count 359 130-400 K/uL Mean Platelet Volume 8.7 7.4-10.4 fL Neutrophils (%) (Auto) 56.8 % Lymphocytes (%) (Auto) 27.6 % Monocytes (%) (Auto) 13.5 % Eosinophils (%) (Auto) 1.3 % Basophils (%) (Auto) 0.6 % Neutrophils # (Auto) 3.58 1.4-6.5 K/uL Lymphocytes # (Auto) 1.74 1.2-3.4 K/uL Monocytes # (Auto) 0.85 0.11-0.59 K/uL Eosinophils # (Auto) 0.08 0-0.5 K/uL Basophils # (Auto) 0.04 0-0.2 K/uL RDW Standard Deviation 46.0 36.4-46.3 fL RDW Coefficient of Variation 14.5 11.5-14.5 % Immature Granulocyte % (Auto) 0.2 % Immature Granulocyte # (Auto) 0.01 0.00-0.02 K/uL Sodium Level 136 136-145 mmol/L Potassium Level 4.0 3.5-5.1 mmol/L Chloride Level 105 98-107 mmol/L Carbon Dioxide Level 22 21-32 mmol/L Anion Gap 9.0 3-11 mmol/L Blood Urea Nitrogen 3 7-18 mg/dl Creatinine 0.56 0.60-1.20 mg/dl Est Creatinine Clear Calc Drug Dose 98.1 ml/min Estimated GFR () 120.0 Estimated GFR (Non- 103.5 BUN/Creatinine Ratio 6.2 10-20 Random Glucose 102 70-99 mg/dl Calcium Level 9.0 8.5-10.1 mg/dl Magnesium Level 2.3 1.8-2.4 mg/dl
[2017-11-20] MEDS: LORAZEPAM 1 MG TAB PO PRN (21:34)
[2017-11-20] MEDS: DOCUSATE SODIUM/SENNA 50/8.6MG TAB PO SCH (21:39)
[2017-11-20] MEDS: MONTELUKAST SOD 10 MG TAB PO SCH (21:42)
[2017-11-20] MEDS ORDERED: ALUMINUM/MAGNESIUM/SIMETH (MAALOX MAX) 30 ML UDC NG PRN (22:30)
[2017-11-21] MEDS: CHECK FENTANYL PATCH PLACEMENT SCH ×3 (00:23→15:34)
[2017-11-21] MEDS: METOCLOPRAMIDE HCL INJ 5 MG/ML 2 ML VIAL IV SCH ×4 (00:24→18:01)
[2017-11-21] MEDS: D5NSS + 20MEQ KCL 1,000 ML IV SCH ×3 (00:43→20:06)
[2017-11-21] MEDS: HYDROmorphone INJ 0.5 MG/0.5 ML SYR IV PRN ×4 (02:20→20:53)
[2017-11-21] MEDS: KETOROLAC TROMETHAMINE 15 MG/ML VIAL IV. PRN ×3 (06:43→19:13)
--- NOTE | 2017-11-21 06:51 | Surgery Progress Note ---
Surgery Progress Note Date of Service Nov 21, 2017. Subjective Post OP Day: 5 (HD #5) + ambulating (as tolerated), + flatus, + pain controlled, + diet (NPO except chips/sips/meds), No bowel movement (No BM since ), No nausea, No vomiting Patient laying in bed, reports generalized abdominal pain. Appetite still decreased but states she feels a little hungry and that her stomach has been growling. Objective Vital Signs: Date Time Temp Pulse Resp B/P (MAP) Pulse Ox O2 Delivery O2 Flow Rate FiO2 11/20/17 23:45 Room Air 11/20/17 23:19 36.7 76 14 114/74 (87) 90 Room Air 11/20/17 21:40 71 114/73 (87) 11/20/17 20:03 69 16 96 Room Air 11/20/17 16:00 Room Air 11/20/17 15:02 37.3 74 16 110/72 (85) 95 Room Air 11/20/17 08:00 Room Air 11/20/17 08:00 70 16 93 Room Air 11/20/17 07:49 93 Room Air 11/20/17 07:40 36.6 75 14 110/73 (85) 93 Room Air Physical Exam: nasogastric drainage (600ml so far today, reinserted yesterday with 2L drainage at that time. ) General Appearance: WD/WN, no apparent distress Head: normocephalic, atraumatic Neck: trachea midline Respiratory/Chest: no respiratory distress, no accessory muscle use Abdomen: soft, no organomegaly, + distended, + tenderness (Generalized, mild TTP), + pertinent finding (Midline laparotomy scar present) Laboratory Results: Results Past 24 Hours Test 11/20/17 08:41 Range/Units White Blood Count 6.30 4.8-10.8 K/uL Red Blood Count 3.50 4.2-5.4 M/uL Hemoglobin 9.4 12.0-16.0 g/dL Hematocrit 30.4 37-47 % Mean Corpuscular Volume 86.9 80-100 fL Mean Corpuscular Hemoglobin 26.9 25-34 pg Mean Corpuscular Hemoglobin Concent 30.9 32-36 g/dl Platelet Count 359 130-400 K/uL Mean Platelet Volume 8.7 7.4-10.4 fL Neutrophils (%) (Auto) 56.8 % Lymphocytes (%) (Auto) 27.6 % Monocytes (%) (Auto) 13.5 % Eosinophils (%) (Auto) 1.3 % Basophils (%) (Auto) 0.6 % Neutrophils # (Auto) 3.58 1.4-6.5 K/uL Lymphocytes # (Auto) 1.74 1.2-3.4 K/uL Monocytes # (Auto) 0.85 0.11-0.59 K/uL Eosinophils # (Auto) 0.08 0-0.5 K/uL Basophils # (Auto) 0.04 0-0.2 K/uL RDW Standard Deviation 46.0 36.4-46.3 fL RDW Coefficient of Variation 14.5 11.5-14.5 % Immature Granulocyte % (Auto) 0.2 % Immature Granulocyte # (Auto) 0.01 0.00-0.02 K/uL Sodium Level 136 136-145 mmol/L Potassium Level 4.0 3.5-5.1 mmol/L Chloride Level 105 98-107 mmol/L Carbon Dioxide Level 22 21-32 mmol/L Anion Gap 9.0 3-11 mmol/L Blood Urea Nitrogen 3 7-18 mg/dl Creatinine 0.56 0.60-1.20 mg/dl Est Creatinine Clear Calc Drug Dose 98.1 ml/min Estimated GFR () 120.0 Estimated GFR (Non- 103.5 BUN/Creatinine Ratio 6.2 10-20 Random Glucose 102 70-99 mg/dl Calcium Level 9.0 8.5-10.1 mg/dl Magnesium Level 2.3 1.8-2.4 mg/dl Assessment & Plan Partial small bowel obstruction Covering for [facility] surgery group. Abdomen mildly distended w/ mild TTP - pain controlled, No Nausea, vomiting or fevers, No Leukocytosis. +Flatus, still no BM - continue docusate sodium tabs. NPO except chips/sips/meds, NGT in place, 600ml output so far this AM. Will keep for now. May need to consider TPN if NGT needs to remain for a longer period of time as patient has been without nutrition for approximately 6 days. Continue ambulation and OOB to chair as tolerated, continue to limit narcotics if possible, continue conservative management. Please contact with questions or concerns.
[2017-11-21] MEDS: FORMOTEROL FUMA NEBULIZER SOLN 20 MCG/2 ML VIAL INH SCH ×2 (07:36→20:22)
[2017-11-21 07:37] VITALS: PULSE 67; O2SAT 96
[2017-11-21 07:57] VITALS: BP 126/77; PULSE 83; TEMP 37; O2SAT 91
[2017-11-21] MEDS: GABAPENTIN 300 MG CAP PO SCH ×3 (09:00→20:43)
[2017-11-21] MEDS: FENTANYL PATCH REMOVE & WASTE SCH (09:15)
[2017-11-21] MEDS: ARIPIprazole TAB 15 MG TAB PO SCH (09:22)
[2017-11-21] MEDS: FENTANYL 25 MCG/HR TDSY TD SCH (09:29)
[2017-11-21] MEDS: LUBIPROSTONE 8 MCG CAP PO SCH ×2 (09:40→20:44)
[2017-11-21] MEDS: METOPROLOL TARTRATE 25 MG TAB NG SCH ×2 (09:42→20:42)
[2017-11-21] MEDS: BACLOFEN 10 MG TAB PO SCH ×3 (09:44→20:41)
[2017-11-21] MEDS: LORAZEPAM 1 MG TAB PO PRN (09:49)
[2017-11-21] MEDS: ENOXAPARIN 40 MG/0.4 ML SYR SQ SCH (11:58)
[2017-11-21] MEDS: CETIRIZINE HCL 10 MG TAB PO SCH (11:59)
[2017-11-21] MEDS: DOCUSATE SODIUM/SENNA 50/8.6MG TAB PO SCH ×2 (11:59→20:47)
[2017-11-21 15:00] VITALS: BP 115/71; PULSE 57; TEMP 36.5; O2SAT 96
--- NOTE | 2017-11-21 19:16 | Progress Note ---
Internal Med Progress Note Date of Service: Nov 21, 2017. Provider Documentation: SUBJECTIVE: moved bowels few times abdominal pain better but NG tube draining lot of fluid request for Ambien afebrile no sob OBJECTIVE: Vital Signs-as noted below Exam: General-Alert sand awake. Not in distress ENT-Normal hearing Neck-no neck masses supple Lungs-cta b/l no wheezing no crackles Heart-S1 and S2 heard regular rate and rthym, no murmurs Abdomen-Soft bowel sounds very sluggish mild diffuse tender no distension Extremities-no edema no erythema Neuro-alert and awake moves extremities Lab data as noted below. ASSESSMENT & PLAN: sbo Was on ng tube npo, iv fluids, iv pain meds and antiemetics prn moved bowels Off f NG tube tolerating clears surgery on board but again developed abdominal pain repeat KUB shows worsening sbo placed back on NG tube and feeling better. continue same for now Right thigh cellulitis hx of recurrent infection started on iv [facility]anco ortho consult-appreciate input cx no growth stopped abx Hx of PSVT s/p ablation on Toprol xl Copd stable Chronic pain on fentanyl patch. DVT PROPHYLAXIS Lovenox-refused scds ambulate DISPOSITION monitor on medical floor Vital Signs: Date Time Temp Pulse Resp B/P (MAP) Pulse Ox O2 Delivery O2 Flow Rate FiO2 11/21/17 15:30 Room Air 11/21/17 15:00 36.5 57 18 115/71 (86) 96 Room Air 11/21/17 07:57 37.0 83 16 126/77 (93) 91 Room Air 11/21/17 07:45 Room Air 11/21/17 07:37 67 18 96 Room Air 11/20/17 23:45 Room Air 11/20/17 23:19 36.7 76 14 114/74 (87) 90 Room Air 11/20/17 21:40 71 114/73 (87) 11/20/17 20:03 69 16 96 Room Air
[2017-11-21] MEDS ORDERED: NURSING DECISION MEDICATION ORDER SCH (19:30)
[2017-11-21] MEDS ORDERED: COUGH DROP (SUGAR FREE) LOZ 24 LOZ/1 BOX PO PRN (19:45)
[2017-11-21 20:22] VITALS: PULSE 71; O2SAT 94
[2017-11-21] MEDS: MONTELUKAST SOD 10 MG TAB PO SCH (20:41)
[2017-11-21 22:57] VITALS: BP 128/72; PULSE 71; TEMP 36.8; O2SAT 98
[2017-11-22] MEDS: METOCLOPRAMIDE HCL INJ 5 MG/ML 2 ML VIAL IV SCH ×5 (00:03→23:36)
[2017-11-22] MEDS: CHECK FENTANYL PATCH PLACEMENT SCH ×4 (00:03→23:36)
[2017-11-22] MEDS: LORAZEPAM 1 MG TAB PO PRN ×2 (02:38→21:42)
[2017-11-22] MEDS: D5NSS + 20MEQ KCL 1,000 ML IV SCH ×2 (06:09→16:09)
[2017-11-22] MEDS: ACETAMINOPHEN SOLN 650MG/20.3 ML UDC NG PRN ×2 (06:22→23:41)
--- NOTE | 2017-11-22 06:22 | Surgery Progress Note ---
Surgery Progress Note Date of Service Nov 22, 2017. Subjective Post OP Day: HD #6 + bowel movement, + flatus, + pain controlled, + diet (NPO except chips/sips/ meds), No nausea, No vomiting Patient still reports some mild generalized abdominal tenderness. She also feels like she has a sore throat which comes and goes and believes it is due to the NGT. States she feels weak. She has not eaten anything substantial in approximately 7 days however she continues to have a decreased appetite. Objective Vital Signs: Date Time Temp Pulse Resp B/P (MAP) Pulse Ox O2 Delivery O2 Flow Rate FiO2 11/22/17 00:30 Room Air 11/21/17 22:57 36.8 71 16 128/72 (90) 98 Room Air 11/21/17 20:22 71 18 94 Room Air 11/21/17 15:30 Room Air 11/21/17 15:00 36.5 57 18 115/71 (86) 96 Room Air 11/21/17 07:57 37.0 83 16 126/77 (93) 91 Room Air 11/21/17 07:45 Room Air 11/21/17 07:37 67 18 96 Room Air Physical Exam: nasogastric drainage (1890 ml yesterday, 450 ml so far this AM) General Appearance: WD/WN, no apparent distress Head: normocephalic, atraumatic Neck: trachea midline Respiratory/Chest: no respiratory distress, no accessory muscle use Abdomen: normal bowel sounds (mildly hyperactive), no organomegaly, no pulsatile mass, + distended, + tenderness (Mild-mod generalized) Assessment & Plan Partial small bowel obstruction Covering for [facility] general surgery group. Still mild TTP and distention - pain controlled. No N/V. +flatus, +BM NPO except chips/sips/meds, appetite remains poor. NGT in place, 450 ml output so far this AM - will keep for now. Nutrition on board, will discuss options with Dr. Velazquez if unable to tolerate PO feeds in the near future. Continue to encourage ambulation and limit narcotics. Please contact with questions or concerns. Partial small bowel obstruction Covering for [facility] general surgery group. Abdomen mildly distended w/ mild TTP - pain controlled, No Nausea, vomiting or fevers, No Leukocytosis. +Flatus, still no BM - continue docusate sodium tabs. NPO except chips/sips/meds, NGT in place, 600ml output so far this AM. Will keep for now. May need to consider TPN if NGT needs to remain for a longer period of time as patient has been without nutrition for approximately 6 days. Continue ambulation and OOB to chair as tolerated, continue to limit narcotics if possible, continue conservative management. Please contact with questions or concerns.
[2017-11-22 07:14] VITALS: BP 146/83; PULSE 62; TEMP 36.7; O2SAT 96
[2017-11-22] MEDS: FORMOTEROL FUMA NEBULIZER SOLN 20 MCG/2 ML VIAL INH SCH ×2 (07:17→20:28)
[2017-11-22 07:19] VITALS: PULSE 66; O2SAT 96
[2017-11-22] MEDS: LUBIPROSTONE 8 MCG CAP PO SCH ×2 (08:57→20:04)
[2017-11-22] MEDS: BACLOFEN 10 MG TAB PO SCH ×3 (09:26→20:05)
[2017-11-22] MEDS: ARIPIprazole TAB 15 MG TAB PO SCH (09:26)
[2017-11-22] MEDS: METOPROLOL TARTRATE 25 MG TAB NG SCH ×2 (09:27→20:06)
[2017-11-22] MEDS: GABAPENTIN 300 MG CAP PO SCH ×3 (09:31→20:05)
[2017-11-22] MEDS: DOCUSATE SODIUM/SENNA 50/8.6MG TAB PO SCH ×2 (09:32→20:05)
[2017-11-22] MEDS: CETIRIZINE HCL 10 MG TAB PO SCH (09:33)
[2017-11-22] MEDS: KETOROLAC TROMETHAMINE 15 MG/ML VIAL IV. PRN ×2 (11:23→17:30)
[2017-11-22] MEDS: ENOXAPARIN 40 MG/0.4 ML SYR SQ SCH (13:15)
[2017-11-22] MEDS: HYDROmorphone INJ 0.5 MG/0.5 ML SYR IV PRN ×2 (13:15→19:10)
[2017-11-22 15:02] VITALS: BP 129/72; PULSE 62; TEMP 36.7; O2SAT 96
--- NOTE | 2017-11-22 18:43 | Progress Note ---
Internal Med Progress Note Date of Service: Nov 22, 2017. Provider Documentation: SUBJECTIVE: NG tube came out denies any nausea or abdominal pain but not pasing gas afebrile no sob OBJECTIVE: Vital Signs-as noted below Exam: General-Alert sand awake. Not in distress ENT-Normal hearing Neck-no neck masses supple Lungs-cta b/l no wheezing no crackles Heart-S1 and S2 heard regular rate and rthym, no murmurs Abdomen-Soft bowel sounds sluggish mild diffuse tender no distension Extremities-no edema no erythema Neuro-alert and awake moves extremities Lab data as noted below. ASSESSMENT & PLAN: sbo Was on ng tube npo, iv fluids, iv pain meds and antiemetics prn moved bowels Off of NG tube tolerating clears surgery on board but again developed abdominal pain repeat KUB shows worsening sbo placed back on NG tube and feeling better. NG tube came out today to monitor and if develops abdominal pain to put back on NG tube Nutrition npo for several days will start on PPN Right thigh cellulitis hx of recurrent infection started on iv vanco ortho consult-appreciate input cx no growth stopped abx Hx of PSVT s/p ablation on Toprol xl Copd stable Chronic pain on fentanyl patch. DVT PROPHYLAXIS Lovenox-refused scds ambulate DISPOSITION monitor on medical floor Vital Signs: Date Time Temp Pulse Resp B/P (MAP) Pulse Ox O2 Delivery O2 Flow Rate FiO2 11/22/17 15:45 Room Air 11/22/17 15:02 36.7 62 18 129/72 (91) 96 Room Air 11/22/17 07:30 Room Air 11/22/17 07:19 66 18 96 Room Air 11/22/17 07:14 36.7 62 16 146/83 (104) 96 Room Air 11/22/17 00:30 Room Air 11/21/17 22:57 36.8 71 16 128/72 (90) 98 Room Air 11/21/17 20:22 71 18 94 Room Air
[2017-11-22 20:02] VITALS: BP 116/74; PULSE 62
[2017-11-22] MEDS: MONTELUKAST SOD 10 MG TAB PO SCH (20:05)
[2017-11-22 20:28] VITALS: PULSE 70; O2SAT 95
[2017-11-22 23:19] VITALS: BP 111/71; PULSE 61; TEMP 36.5; O2SAT 95
[2017-11-23] VITALS (8 sets, daily range): BP systolic 112–134; BP diastolic 72–83; PULSE 59–74; TEMP 36.6–36.8; O2SAT 93–97
[2017-11-23] MEDS: D5NSS + 20MEQ KCL 1,000 ML IV SCH ×3 (02:58→22:41)
[2017-11-23 05:39] LABS: BASO % 0.2 %; BASO ABS # 0.01 K/uL (0-0.2); EOS % 3.1 %; EOS ABS # 0.18 K/uL (0-0.5); HEMATOCRIT 31.7 % (37-47); HEMOGLOBIN 9.7 g/dL (12.0-16.0); IG# 0.02 K/uL (0.00-0.02); LYMPH % 32.8 %; LYMPH ABS # 1.88 K/uL (1.2-3.4); MEAN CELL VOLUME 88.3 fL (80-100); MEAN CORPUSCULAR HGB CONC 30.6 g/dl (32-36); MEAN PLATELET VOLUME 8.8 fL (7.4-10.4); MONO % 11.8 %; MONO ABS # 0.68 K/uL (0.11-0.59); NEUT % 51.8 %; NEUT ABS # 2.97 K/uL (1.4-6.5); PLATELET COUNT 329 K/uL (130-400); RED CELL DISTRIBUTION WIDTH CV 14.6 % (11.5-14.5); RED CELL DISTRIBUTION WIDTH SD 47.3 fL (36.4-46.3); WHITE BLOOD COUNT 5.74 K/uL (4.8-10.8)
[2017-11-23] MEDS ORDERED: TPN/PPN CONSULT PHARMACY PRN (06:00)
[2017-11-23 06:07] LABS: CALCIUM 8.9 mg/dl (8.5-10.1); CREATININE 0.6 mg/dl (0.60-1.20); POTASSIUM 4.3 mmol/L (3.5-5.1)
[2017-11-23 06:11] LABS: PHOSPHORUS 4.8 mg/dl (2.5-4.9)
[2017-11-23] MEDS: METOCLOPRAMIDE HCL INJ 5 MG/ML 2 ML VIAL IV SCH ×4 (06:17→23:36)
--- NOTE | 2017-11-23 07:37 | Surgery Progress Note ---
Surgery Progress Note Date of Service Nov 23, 2017. Subjective + ambulating, + bowel movement (patient reports loose stool), No nausea, No vomiting Was made aware that patient's NG tube fell out yesterday around 10AM- patient has been doing well since NG out. Denies nausea or vomiting. Kept patient only sips and chips overnight. No concerns or complaints overnight. Objective Vital Signs: Date Time Temp Pulse Resp B/P (MAP) Pulse Ox O2 Delivery O2 Flow Rate FiO2 11/23/17 00:12 Room Air 11/22/17 23:19 36.5 61 16 111/71 (84) 95 Room Air 11/22/17 20:28 70 18 95 Room Air 11/22/17 20:02 62 116/74 (88) 11/22/17 15:45 Room Air 11/22/17 15:02 36.7 62 18 129/72 (91) 96 Room Air General Appearance: WD/WN, no apparent distress Abdomen: soft, + pertinent finding (reports mild generalized tenderness in abdomen; slowly improving. ) Laboratory Results: Results Past 24 Hours Test 11/23/17 05:20 Range/Units White Blood Count 5.74 4.8-10.8 K/uL Red Blood Count 3.59 4.2-5.4 M/uL Hemoglobin 9.7 12.0-16.0 g/dL Hematocrit 31.7 37-47 % Mean Corpuscular Volume 88.3 80-100 fL Mean Corpuscular Hemoglobin 27.0 25-34 pg Mean Corpuscular Hemoglobin Concent 30.6 32-36 g/dl Platelet Count 329 130-400 K/uL Mean Platelet Volume 8.8 7.4-10.4 fL Neutrophils (%) (Auto) 51.8 % Lymphocytes (%) (Auto) 32.8 % Monocytes (%) (Auto) 11.8 % Eosinophils (%) (Auto) 3.1 % Basophils (%) (Auto) 0.2 % Neutrophils # (Auto) 2.97 1.4-6.5 K/uL Lymphocytes # (Auto) 1.88 1.2-3.4 K/uL Monocytes # (Auto) 0.68 0.11-0.59 K/uL Eosinophils # (Auto) 0.18 0-0.5 K/uL Basophils # (Auto) 0.01 0-0.2 K/uL RDW Standard Deviation 47.3 36.4-46.3 fL RDW Coefficient of Variation 14.6 11.5-14.5 % Immature Granulocyte % (Auto) 0.3 % Immature Granulocyte # (Auto) 0.02 0.00-0.02 K/uL Sodium Level 138 136-145 mmol/L Potassium Level 4.3 3.5-5.1 mmol/L Chloride Level 110 98-107 mmol/L Carbon Dioxide Level 20 21-32 mmol/L Anion Gap 8.0 3-11 mmol/L Blood Urea Nitrogen 5 7-18 mg/dl Creatinine 0.60 0.60-1.20 mg/dl Est Creatinine Clear Calc Drug Dose 91.6 ml/min Estimated GFR () 117.3 Estimated GFR (Non- 101.2 BUN/Creatinine Ratio 9.0 10-20 Random Glucose 103 70-99 mg/dl Calcium Level 8.9 8.5-10.1 mg/dl Phosphorus Level 4.8 2.5-4.9 mg/dl Magnesium Level 2.2 1.8-2.4 mg/dl Assessment & Plan 57-year-old female small bowel obstruction Plan: Patient requested that service be switched from [facility] to [facility] General Surgery made aware. Vital signs stable. Morning labs reviewed. Patient did well overnight without NG tube. No bloating, nausea or vomiting. Reports that she is hungry and would like to try clear liquids for breakfast. Reports loose bowel movement last night. States that abdominal pain has improved since admission. We will continue to follow.
[2017-11-23] MEDS: FORMOTEROL FUMA NEBULIZER SOLN 20 MCG/2 ML VIAL INH SCH ×2 (07:43→20:00)
[2017-11-23] MEDS: KETOROLAC TROMETHAMINE 15 MG/ML VIAL IV. PRN (08:06)
[2017-11-23] MEDS: CHECK FENTANYL PATCH PLACEMENT SCH ×3 (08:07→23:36)
[2017-11-23] MEDS: METOPROLOL TARTRATE 25 MG TAB NG SCH ×2 (09:00→20:58)
[2017-11-23] MEDS: DOCUSATE SODIUM/SENNA 50/8.6MG TAB PO SCH ×2 (09:00→20:55)
[2017-11-23] MEDS: ARIPIprazole TAB 15 MG TAB PO SCH (09:09)
[2017-11-23] MEDS: LUBIPROSTONE 8 MCG CAP PO SCH ×2 (09:10→20:54)
[2017-11-23] MEDS: GABAPENTIN 300 MG CAP PO SCH ×3 (09:12→20:59)
[2017-11-23] MEDS: BACLOFEN 10 MG TAB PO SCH ×3 (09:12→21:01)
[2017-11-23] MEDS: CETIRIZINE HCL 10 MG TAB PO SCH (09:13)
[2017-11-23] MEDS: HYDROmorphone INJ 0.5 MG/0.5 ML SYR IV PRN ×2 (10:33→18:08)
[2017-11-23] MEDS: ENOXAPARIN 40 MG/0.4 ML SYR SQ SCH (12:59)
--- NOTE | 2017-11-23 17:47 | Progress Note ---
Internal Med Progress Note Date of Service: Nov 23, 2017. Provider Documentation: SUBJECTIVE: off NG tube tolerating clears had loose bowel movements today no nausea abdominal pain better OBJECTIVE: Vital Signs-as noted below Exam: General-Alert sand awake. Not in distress ENT-Normal hearing Neck-no neck masses supple Lungs-cta b/l no wheezing no crackles Heart-S1 and S2 heard regular rate and rthym, no murmurs Abdomen-Soft bowel sounds sluggish mild diffuse tender no distension Extremities-no edema no erythema Neuro-alert and awake moves extremities Lab data as noted below. ASSESSMENT & PLAN: 57F presents with SBO which is taking long time to resolve. Currently off of NG tube and tolerating clears.Surgery on board. If worsens will plan for TPN/PPN. SBO Was on ng tube npo, iv fluids, iv pain meds and antiemetics prn moved bowels Off of NG tube tolerating clears surgery on board but again developed abdominal pain repeat KUB shows worsening sbo placed back on NG tube and feeling better. NG tube came out yesterday 11/22/17 doing fine off of NG tube tolerating clears moved bowels will monitor Nutrition npo for several days started on clears today will monitor 'if sbo recurs will plan for tpn/ppn Right thigh cellulitis hx of recurrent infection started on iv [facility]anco ortho consult-appreciate input cx no growth stopped abx Hx of PSVT s/p ablation on Toprol xl Copd stable Chronic pain on fentanyl patch. DVT PROPHYLAXIS Lovenox-refused scds ambulate pt/ot DISPOSITION monitor on medical floor to be determined Vital Signs: Date Time Temp Pulse Resp B/P (MAP) Pulse Ox O2 Delivery O2 Flow Rate FiO2 11/23/17 15:09 36.8 62 18 134/83 (100) 94 Room Air 11/23/17 09:16 59 113/72 (86) 11/23/17 08:07 97 Room Air 11/23/17 07:49 36.6 61 14 120/72 (88) 97 Room Air 11/23/17 07:45 60 14 96 Room Air 11/23/17 07:15 Room Air 11/23/17 00:12 Room Air 11/22/17 23:19 36.5 61 16 111/71 (84) 95 Room Air 11/22/17 20:28 70 18 95 Room Air 11/22/17 20:02 62 116/74 (88) Lab Results: Results Past 24 Hours Test 11/23/17 05:20 Range/Units White Blood Count 5.74 4.8-10.8 K/uL Red Blood Count 3.59 4.2-5.4 M/uL Hemoglobin 9.7 12.0-16.0 g/dL Hematocrit 31.7 37-47 % Mean Corpuscular Volume 88.3 80-100 fL Mean Corpuscular Hemoglobin 27.0 25-34 pg Mean Corpuscular Hemoglobin Concent 30.6 32-36 g/dl Platelet Count 329 130-400 K/uL Mean Platelet Volume 8.8 7.4-10.4 fL Neutrophils (%) (Auto) 51.8 % Lymphocytes (%) (Auto) 32.8 % Monocytes (%) (Auto) 11.8 % Eosinophils (%) (Auto) 3.1 % Basophils (%) (Auto) 0.2 % Neutrophils # (Auto) 2.97 1.4-6.5 K/uL Lymphocytes # (Auto) 1.88 1.2-3.4 K/uL Monocytes # (Auto) 0.68 0.11-0.59 K/uL Eosinophils # (Auto) 0.18 0-0.5 K/uL Basophils # (Auto) 0.01 0-0.2 K/uL RDW Standard Deviation 47.3 36.4-46.3 fL RDW Coefficient of Variation 14.6 11.5-14.5 % Immature Granulocyte % (Auto) 0.3 % Immature Granulocyte # (Auto) 0.02 0.00-0.02 K/uL Sodium Level 138 136-145 mmol/L Potassium Level 4.3 3.5-5.1 mmol/L Chloride Level 110 98-107 mmol/L Carbon Dioxide Level 20 21-32 mmol/L Anion Gap 8.0 3-11 mmol/L Blood Urea Nitrogen 5 7-18 mg/dl Creatinine 0.60 0.60-1.20 mg/dl Est Creatinine Clear Calc Drug Dose 91.6 ml/min Estimated GFR () 117.3 Estimated GFR (Non- 101.2 BUN/Creatinine Ratio 9.0 10-20 Random Glucose 103 70-99 mg/dl Calcium Level 8.9 8.5-10.1 mg/dl Phosphorus Level 4.8 2.5-4.9 mg/dl Magnesium Level 2.2 1.8-2.4 mg/dl
[2017-11-23] MEDS: MONTELUKAST SOD 10 MG TAB PO SCH (21:02)
[2017-11-23] MEDS: LORAZEPAM 1 MG TAB PO PRN (21:09)
[2017-11-24] VITALS (8 sets, daily range): BP systolic 105–129; BP diastolic 68–81; PULSE 57–75; TEMP 36.5–36.6; O2SAT 94–98
[2017-11-24] MEDS: KETOROLAC TROMETHAMINE 15 MG/ML VIAL IV. PRN ×2 (01:18→09:20)
[2017-11-24] MEDS: ACETAMINOPHEN IV 650 MG in EMPTY BAG 0 ML IV PRN (04:05)
[2017-11-24] MEDS: METOCLOPRAMIDE HCL INJ 5 MG/ML 2 ML VIAL IV SCH ×3 (06:02→18:07)
[2017-11-24 07:17] LABS: BASO % 0.3 %; BASO ABS # 0.02 K/uL (0-0.2); EOS % 2.5 %; EOS ABS # 0.15 K/uL (0-0.5); HEMATOCRIT 29.2 % (37-47); HEMOGLOBIN 8.8 g/dL (12.0-16.0); IG# 0.02 K/uL (0.00-0.02); LYMPH % 30.7 %; LYMPH ABS # 1.81 K/uL (1.2-3.4); MEAN CORPUSCULAR HEMOGLOBIN 26.5 pg (25-34); MEAN CORPUSCULAR HGB CONC 30.1 g/dl (32-36); MEAN PLATELET VOLUME 8.9 fL (7.4-10.4); MONO % 13.1 %; MONO ABS # 0.77 K/uL (0.11-0.59); NEUT % 53.1 %; NEUT ABS # 3.13 K/uL (1.4-6.5); PLATELET COUNT 307 K/uL (130-400); RED CELL DISTRIBUTION WIDTH CV 14.7 % (11.5-14.5); RED CELL DISTRIBUTION WIDTH SD 47.2 fL (36.4-46.3)
[2017-11-24] MEDS: FORMOTEROL FUMA NEBULIZER SOLN 20 MCG/2 ML VIAL INH SCH ×2 (07:29→19:48)
[2017-11-24 07:44] LABS: CALCIUM 8.6 mg/dl (8.5-10.1); CREATININE 0.58 mg/dl (0.60-1.20); PHOSPHORUS 4.7 mg/dl (2.5-4.9); POTASSIUM 4.2 mmol/L (3.5-5.1)
[2017-11-24] MEDS: CHECK FENTANYL PATCH PLACEMENT SCH ×3 (08:00→23:58)
[2017-11-24] MEDS: LUBIPROSTONE 8 MCG CAP PO SCH ×2 (09:00→21:00)
[2017-11-24] MEDS: DOCUSATE SODIUM/SENNA 50/8.6MG TAB PO SCH ×2 (09:00→21:00)
[2017-11-24] MEDS: D5NSS + 20MEQ KCL 1,000 ML IV SCH ×2 (09:00→19:37)
[2017-11-24] MEDS: FENTANYL PATCH REMOVE & WASTE SCH (09:05)
[2017-11-24] MEDS: FENTANYL 25 MCG/HR TDSY TD SCH (09:06)
[2017-11-24] MEDS: METOPROLOL TARTRATE 25 MG TAB NG SCH ×2 (09:09→21:37)
[2017-11-24] MEDS: GABAPENTIN 300 MG CAP PO SCH ×3 (09:10→21:30)
[2017-11-24] MEDS: BACLOFEN 10 MG TAB PO SCH ×3 (09:10→21:30)
[2017-11-24] MEDS: CETIRIZINE HCL 10 MG TAB PO SCH (09:12)
[2017-11-24] MEDS: ARIPIprazole TAB 15 MG TAB PO SCH (09:13)
[2017-11-24] MEDS: HYDROmorphone INJ 1 MG/ML SYR IV PRN ×2 (11:09→21:27)
[2017-11-24] MEDS: ENOXAPARIN 40 MG/0.4 ML SYR SQ SCH (11:37)
--- NOTE | 2017-11-24 14:36 | Progress Note ---
Medicine Progress Note Date & Time of Visit: Nov 24, 2017 at 14:31. Subjective patient seen resting in bedside chair, comfortable states she feels improved today compared to yesterday able to tolerate full liquids well denies abdominal pain had 1 loose BM today denies other symptoms Objective Last 8 Hrs Date Time Temp Pulse Resp B/P (MAP) Pulse Ox O2 Delivery O2 Flow Rate FiO2 11/24/17 10:43 75 96 11/24/17 09:08 75 114/75 (88) 11/24/17 07:29 57 14 96 Room Air 11/24/17 07:24 36.6 70 19 105/68 (80) 94 Room Air 11/24/17 07:15 Room Air Physical Exam: General- oriented x 3, not in distress, speaks in sentences with no effort Head- atraumatic Eyes-EOMI, anicteric ENT- oropharynx clear Neck- supple, no JVD, no adenopathy, no thyromegaly Lungs- clear breath sounds bilaterally Heart- regular rhythm; no murmur, normal rate Abdomen- normal bowel sounds, soft, nontender, non distended Extremities- no pretibial edema, no calf tenderness Neuro- alert, oriented x 3; no gross focal deficits Skin- warm & dry Laboratory Results: Last 24 Hours Test 11/24/17 06:54 White Blood Count 5.90 K/uL Red Blood Count 3.32 M/uL Hemoglobin 8.8 g/dL Hematocrit 29.2 % Mean Corpuscular Volume 88.0 fL Mean Corpuscular Hemoglobin 26.5 pg Mean Corpuscular Hemoglobin Concent 30.1 g/dl Platelet Count 307 K/uL Mean Platelet Volume 8.9 fL Neutrophils (%) (Auto) 53.1 % Lymphocytes (%) (Auto) 30.7 % Monocytes (%) (Auto) 13.1 % Eosinophils (%) (Auto) 2.5 % Basophils (%) (Auto) 0.3 % Neutrophils # (Auto) 3.13 K/uL Lymphocytes # (Auto) 1.81 K/uL Monocytes # (Auto) 0.77 K/uL Eosinophils # (Auto) 0.15 K/uL Basophils # (Auto) 0.02 K/uL RDW Standard Deviation 47.2 fL RDW Coefficient of Variation 14.7 % Immature Granulocyte % (Auto) 0.3 % Immature Granulocyte # (Auto) 0.02 K/uL Red Blood Cell Morphology Unremarkable Sodium Level 140 mmol/L Potassium Level 4.2 mmol/L Chloride Level 115 mmol/L Carbon Dioxide Level 18 mmol/L Anion Gap 7.0 mmol/L Blood Urea Nitrogen 4 mg/dl Creatinine 0.58 mg/dl Est Creatinine Clear Calc Drug Dose 94.7 ml/min Estimated GFR () 118.6 Estimated GFR (Non- 102.3 BUN/Creatinine Ratio 6.1 Random Glucose 91 mg/dl Calcium Level 8.6 mg/dl Phosphorus Level 4.7 mg/dl Magnesium Level 2.0 mg/dl Assessment & Plan SMALL BOWEL OBSTRUCTION - off NG tube on full liquids tolerating well so far - continue IV fluids advance diet as per Gen Surg, appreciate the input RIGHT THIGH CELLULITIS hx of recurrent infection started on iv vanco ortho consulted cx no growth, antibiotics discontinued patient afebrile, no leg pain Hx of PSVT s/p ablation on Toprol xl COPD stable Chronic pain on fentanyl patch. DVT PROPHYLAXIS Lovenox-refused scds ambulate pt/ot DISPOSITION pending, anticipate to be discharged home when medically stable ff up with PCP Dr. Jerome Murillo Current Inpatient Medications: Current Inpatient Medications Medications (Trade) Dose Ordered Sig/Jennifer Route Start Time Stop Time Status Last Admin Dose Admin Enoxaparin Sodium (Lovenox Inj) 40 mg Q24H SQ 11/15/17 12:00 12/15/17 11:59 11/24/17 11:37 40 MG Ondansetron HCl (Zofran Inj) 4 mg Q6H PRN IV 11/15/17 09:45 12/15/17 09:44 11/19/17 22:11 4 MG Albuterol (Ventolin Hfa Inhaler) 1 puffs Q4 PRN INH 11/15/17 09:45 12/15/17 09:44 Aripiprazole (Abilify Tab) 30 mg QAM PO 11/16/17 09:00 12/16/17 08:59 11/24/17 09:13 30 MG Baclofen (Lioresal Tab) 10 mg TID PO 11/15/17 14:00 12/15/17 13:59 Future hold 11/24/17 13:55 10 MG Cetirizine HCl (zyrTEC TAB) 10 mg QAM PO 1/1/18 09:00 12/16/17 08:59 11/24/17 09:12 10 MG Cyclobenzaprine HCl (Flexeril Tab) 10 mg TID PRN PO 11/15/17 09:45 12/15/17 09:44 Future hold 11/19/17 22:08 10 MG Fentanyl (Duragesic Patch) 25 mcg Q3D@0900 TD 11/15/17 13:15 11/29/17 13:14 11/24/17 09:06 25 MCG Gabapentin (Neurontin Cap) 300 mg TID PO 11/15/17 14:00 12/15/17 13:59 Future hold 11/24/17 13:55 300 MG Lorazepam (Ativan Tab) 1 mg BID PRN PO 11/15/17 09:45 12/15/17 09:44 11/23/17 21:09 1 MG Montelukast Sodium (Singulair Tab) 10 mg HS PO 11/15/17 21:00 12/15/17 20:59 Future hold 11/23/17 21:02 10 MG Ondansetron HCl (Zofran Tab) 8 mg Q6H PRN PO 11/15/17 09:45 12/15/17 09:44 Lubiprostone (Amitiza) 24 mcg BID PO 11/15/17 21:00 12/15/17 20:59 Future hold 11/23/17 09:10 24 MCG Metoclopramide HCl (Reglan Inj) 5 mg Q6 IV 11/15/17 14:00 12/15/17 13:59 11/24/17 11:40 5 MG Formoterol Fumarate (Perforomist 20MCG/2ML Neb Soln) 20 mcg BID INH 11/15/17 21:00 12/15/17 20:59 11/24/17 07:29 20 MCG Lamotrigine (Lamictal Tab) 125 mg BID PO 11/15/17 21:00 12/15/17 20:59 Future hold 11/24/17 09:11 125 MG Buspirone HCl (Buspar Tab) 10 mg BID PO 11/15/17 21:00 12/15/17 20:59 Future hold 11/24/17 09:10 10 MG Miscellaneous (Fentanyl Patch Remove & Waste) 1 ea Q3D@0859 N/A 11/15/17 13:14 12/15/17 13:13 11/24/17 09:05 1 EA Miscellaneous Information (Check Fentanyl Patch Placement) 1 ea QS N/A 11/15/17 16:00 12/15/17 15:59 11/24/17 08:00 1 EA Metoprolol Tartrate (Lopressor Tab) 12.5 mg BID NG 11/16/17 21:00 12/16/17 20:59 11/24/17 09:09 12.5 MG Potassium Chloride/Dextrose/ Sod Cl 1,000 ml @ 100 mls/hr Q10H IV 11/19/17 19:00 12/19/17 18:59 11/24/17 09:00 100 MLS/HR Ketorolac Tromethamine (Toradol Inj) 15 mg Q6H PRN IV. 11/20/17 00:00 11/25/17 00:00 11/24/17 09:20 15 MG Acetaminophen 650 mg/Empty Bag 65 ml @ 260 mls/hr Q6H PRN IV 11/20/17 00:30 12/20/17 00:29 11/24/17 04:05 260 MLS/HR Senna/Docusate Sodium (Senokot S Tab) 1 tab BID PO 11/20/17 21:00 12/20/17 20:59 11/22/17 20:05 1 TAB Acetaminophen (Tylenol Soln) 650 mg Q4H PRN NG 11/20/17 22:30 12/20/17 22:29 11/22/17 23:41 650 MG Al Hydrox/Mg Hydrox/Simethicone (Maalox Max Susp) 15 ml Q4H PRN NG 11/20/17 22:30 12/15/17 09:44 Zolpidem Tartrate (Ambien Tab) 5 mg HS PRN PO 11/21/17 19:30 12/21/17 19:29 Menthol (Nice Brown) 1 brown Q2H PRN PO 11/21/17 19:45 12/21/17 19:44 Hydromorphone HCl (Dilaudid Inj) 0.5 mg Q6H PRN IV 11/24/17 10:45 12/03/17 10:44 11/24/17 11:09 0.5 MG
--- NOTE | 2017-11-24 17:08 | Surgery Progress Note ---
Surgery Progress Note Date of Service Nov 24, 2017. Subjective + feeling well, + ambulating, + bowel movement, + flatus, + pain controlled, No nausea, No vomiting Objective Vital Signs: Date Time Temp Pulse Resp B/P (MAP) Pulse Ox O2 Delivery O2 Flow Rate FiO2 11/24/17 15:40 Room Air 11/24/17 15:00 36.6 63 20 124/81 (95) 98 Room Air 11/24/17 10:43 75 96 11/24/17 09:08 75 114/75 (88) 11/24/17 07:29 57 14 96 Room Air 11/24/17 07:24 36.6 70 19 105/68 (80) 94 Room Air 11/24/17 07:15 Room Air 11/23/17 23:45 Room Air 11/23/17 23:14 36.6 72 14 114/73 (87) 93 Room Air 11/23/17 21:05 74 112/72 (85) 11/23/17 20:00 60 14 96 Room Air General Appearance: WD/WN, no apparent distress Head: normocephalic, atraumatic Abdomen: non tender, non distended, soft Laboratory Results: Results Past 24 Hours Test 11/24/17 06:54 Range/Units White Blood Count 5.90 4.8-10.8 K/uL Red Blood Count 3.32 4.2-5.4 M/uL Hemoglobin 8.8 12.0-16.0 g/dL Hematocrit 29.2 37-47 % Mean Corpuscular Volume 88.0 80-100 fL Mean Corpuscular Hemoglobin 26.5 25-34 pg Mean Corpuscular Hemoglobin Concent 30.1 32-36 g/dl Platelet Count 307 130-400 K/uL Mean Platelet Volume 8.9 7.4-10.4 fL Neutrophils (%) (Auto) 53.1 % Lymphocytes (%) (Auto) 30.7 % Monocytes (%) (Auto) 13.1 % Eosinophils (%) (Auto) 2.5 % Basophils (%) (Auto) 0.3 % Neutrophils # (Auto) 3.13 1.4-6.5 K/uL Lymphocytes # (Auto) 1.81 1.2-3.4 K/uL Monocytes # (Auto) 0.77 0.11-0.59 K/uL Eosinophils # (Auto) 0.15 0-0.5 K/uL Basophils # (Auto) 0.02 0-0.2 K/uL RDW Standard Deviation 47.2 36.4-46.3 fL RDW Coefficient of Variation 14.7 11.5-14.5 % Immature Granulocyte % (Auto) 0.3 % Immature Granulocyte # (Auto) 0.02 0.00-0.02 K/uL Red Blood Cell Morphology Unremarkable Sodium Level 140 136-145 mmol/L Potassium Level 4.2 3.5-5.1 mmol/L Chloride Level 115 98-107 mmol/L Carbon Dioxide Level 18 21-32 mmol/L Anion Gap 7.0 3-11 mmol/L Blood Urea Nitrogen 4 7-18 mg/dl Creatinine 0.58 0.60-1.20 mg/dl Est Creatinine Clear Calc Drug Dose 94.7 ml/min Estimated GFR () 118.6 Estimated GFR (Non- 102.3 BUN/Creatinine Ratio 6.1 10-20 Random Glucose 91 70-99 mg/dl Calcium Level 8.6 8.5-10.1 mg/dl Phosphorus Level 4.7 2.5-4.9 mg/dl Magnesium Level 2.0 1.8-2.4 mg/dl Assessment & Plan 11/24/2017 57-year-old female, small bowel obstruction Plan: Patient seen and examined by Dr. Velazquez. Doing well today- patient reports that she has improved a lot from yesterday. +BM, passing flatus, pain controlled. Tolerating diet- primary team advanced diet, will see how she tolerates. If she continues to do well she can most likely be discharged tomorrow. We will continue to follow. 57-year-old female small bowel obstruction Plan: Patient requested that service be switched from [facility] to [facility] General Surgery made aware. Vital signs stable. Morning labs reviewed. Patient did well overnight without NG tube. No bloating, nausea or vomiting. Reports that she is hungry and would like to try clear liquids for breakfast. Reports loose bowel movement last night. States that abdominal pain has improved since admission. We will continue to follow.
[2017-11-24] MEDS: MONTELUKAST SOD 10 MG TAB PO SCH (21:31)
[2017-11-25] VITALS (9 sets, daily range): BP systolic 118–125; BP diastolic 71–84; PULSE 55–87; TEMP 36.3–36.8; O2SAT 93–98
[2017-11-25] MEDS: METOCLOPRAMIDE HCL INJ 5 MG/ML 2 ML VIAL IV SCH ×5 (00:02→23:53)
[2017-11-25] MEDS: HYDROmorphone INJ 1 MG/ML SYR IV PRN ×4 (04:05→22:03)
[2017-11-25] MEDS: D5NSS + 20MEQ KCL 1,000 ML IV SCH ×2 (05:03→15:54)
[2017-11-25 06:17] LABS: BASO % 0.3 %; BASO ABS # 0.02 K/uL (0-0.2); EOS % 2.6 %; EOS ABS # 0.15 K/uL (0-0.5); HEMOGLOBIN 9.7 g/dL (12.0-16.0); IG# 0.02 K/uL (0.00-0.02); LYMPH % 35.7 %; MEAN CELL VOLUME 87.8 fL (80-100); MEAN CORPUSCULAR HEMOGLOBIN 27.5 pg (25-34); MEAN CORPUSCULAR HGB CONC 31.3 g/dl (32-36); MEAN PLATELET VOLUME 9.1 fL (7.4-10.4); MONO % 12.2 %; MONO ABS # 0.72 K/uL (0.11-0.59); NEUT % 48.9 %; NEUT ABS # 2.87 K/uL (1.4-6.5); PLATELET COUNT 299 K/uL (130-400); RED CELL DISTRIBUTION WIDTH CV 14.6 % (11.5-14.5); RED CELL DISTRIBUTION WIDTH SD 46.8 fL (36.4-46.3); WHITE BLOOD COUNT 5.88 K/uL (4.8-10.8)
[2017-11-25 06:48] LABS: CREATININE 0.71 mg/dl (0.60-1.20)
[2017-11-25 06:49] LABS: PHOSPHORUS 4.4 mg/dl (2.5-4.9)
--- NOTE | 2017-11-25 07:25 | Surgery Progress Note ---
Surgery Progress Note Date of Service Nov 25, 2017. Subjective + feeling well, + complaints (Mild epigastric burning), + bowel movement, + flatus, + pain controlled, + diet (tolerating reg diet), No nausea, No vomiting Objective Vital Signs: Date Time Temp Pulse Resp B/P (MAP) Pulse Ox O2 Delivery O2 Flow Rate FiO2 11/25/17 00:05 Room Air 11/24/17 23:05 36.5 64 18 129/74 (92) 97 Room Air 11/24/17 21:26 61 123/81 (95) 11/24/17 19:48 68 14 96 Room Air 11/24/17 15:40 Room Air 11/24/17 15:00 36.6 63 20 124/81 (95) 98 Room Air 11/24/17 10:43 75 96 11/24/17 09:08 75 114/75 (88) 11/24/17 07:29 57 14 96 Room Air 11/24/17 07:24 36.6 70 19 105/68 (80) 94 Room Air General Appearance: WD/WN, no apparent distress Head: normocephalic, atraumatic Neck: trachea midline Respiratory/Chest: no respiratory distress, no accessory muscle use Abdomen: non tender, soft, no organomegaly, + distended (mild) Laboratory Results: Results Past 24 Hours Test 11/25/17 05:54 Range/Units White Blood Count 5.88 4.8-10.8 K/uL Red Blood Count 3.53 4.2-5.4 M/uL Hemoglobin 9.7 12.0-16.0 g/dL Hematocrit 31.0 37-47 % Mean Corpuscular Volume 87.8 80-100 fL Mean Corpuscular Hemoglobin 27.5 25-34 pg Mean Corpuscular Hemoglobin Concent 31.3 32-36 g/dl Platelet Count 299 130-400 K/uL Mean Platelet Volume 9.1 7.4-10.4 fL Neutrophils (%) (Auto) 48.9 % Lymphocytes (%) (Auto) 35.7 % Monocytes (%) (Auto) 12.2 % Eosinophils (%) (Auto) 2.6 % Basophils (%) (Auto) 0.3 % Neutrophils # (Auto) 2.87 1.4-6.5 K/uL Lymphocytes # (Auto) 2.10 1.2-3.4 K/uL Monocytes # (Auto) 0.72 0.11-0.59 K/uL Eosinophils # (Auto) 0.15 0-0.5 K/uL Basophils # (Auto) 0.02 0-0.2 K/uL RDW Standard Deviation 46.8 36.4-46.3 fL RDW Coefficient of Variation 14.6 11.5-14.5 % Immature Granulocyte % (Auto) 0.3 % Immature Granulocyte # (Auto) 0.02 0.00-0.02 K/uL Sodium Level 138 136-145 mmol/L Potassium Level 4.0 3.5-5.1 mmol/L Chloride Level 108 98-107 mmol/L Carbon Dioxide Level 24 21-32 mmol/L Anion Gap 6.0 3-11 mmol/L Blood Urea Nitrogen 3 7-18 mg/dl Creatinine 0.71 0.60-1.20 mg/dl Est Creatinine Clear Calc Drug Dose 77.4 ml/min Estimated GFR () 109.6 Estimated GFR (Non- 94.6 BUN/Creatinine Ratio 4.6 10-20 Random Glucose 109 70-99 mg/dl Calcium Level 9.0 8.5-10.1 mg/dl Phosphorus Level 4.4 2.5-4.9 mg/dl Magnesium Level 2.1 1.8-2.4 mg/dl Assessment & Plan Partial small bowel obstruction Doing well, reports mild burning in epigastric area starting his AM with mild distention on exam, No N/V, No Leukocytosis. Tolerating regular diet, +BM, +Flatus. Patient feels ready to go home today. Okay to d/c from surgery standpoint. Will discuss findings with Dr. Velazquez. Please contact with questions or concerns.
[2017-11-25] MEDS: FORMOTEROL FUMA NEBULIZER SOLN 20 MCG/2 ML VIAL INH SCH ×2 (07:42→20:08)
[2017-11-25] MEDS: CHECK FENTANYL PATCH PLACEMENT SCH ×3 (08:00→23:53)
[2017-11-25] MEDS: DOCUSATE SODIUM/SENNA 50/8.6MG TAB PO SCH (09:00)
[2017-11-25] MEDS: METOPROLOL TARTRATE 25 MG TAB NG SCH ×2 (09:00→21:03)
[2017-11-25] MEDS: LUBIPROSTONE 8 MCG CAP PO SCH ×2 (09:00→21:00)
[2017-11-25] MEDS: GABAPENTIN 300 MG CAP PO SCH ×3 (09:09→21:03)
[2017-11-25] MEDS: BACLOFEN 10 MG TAB PO SCH ×3 (09:10→21:03)
[2017-11-25] MEDS: ARIPIprazole TAB 15 MG TAB PO SCH (09:12)
[2017-11-25] MEDS: CETIRIZINE HCL 10 MG TAB PO SCH (09:13)
[2017-11-25] MEDS: ENOXAPARIN 40 MG/0.4 ML SYR SQ SCH (11:18)
--- NOTE | 2017-11-25 14:35 | Progress Note ---
Medicine Progress Note Date & Time of Visit: Nov 25, 2017 at 14:30. Subjective patient seen resting in bedside chair uncomfortable due to upper abdominal, epigastric pain - same pain she had on admission not associated with nausea had 3 loose, non bloody bowel movements today denies other symptoms Objective Last 8 Hrs Date Time Temp Pulse Resp B/P (MAP) Pulse Ox O2 Delivery O2 Flow Rate FiO2 11/25/17 08:00 Room Air 11/25/17 07:47 36.6 55 18 120/71 (87) 97 Room Air 11/25/17 07:42 65 14 95 Room Air 11/25/17 07:36 97 Room Air Physical Exam: General- oriented x 3, not in distress, speaks in sentences with no effort Eyes-anicteric Neck- supple, no JVD Lungs- clear breath sounds bilaterally, no rales/wheezes Heart- regular rhythm; no murmur, normal rate Abdomen- normal bowel sounds, soft, mild epigastric tenderness, non distended Extremities- no pretibial edema, no calf tenderness Neuro- alert, oriented x 3; no gross focal deficits Skin- warm & dry Laboratory Results: Last 24 Hours Test 11/25/17 05:54 White Blood Count 5.88 K/uL Red Blood Count 3.53 M/uL Hemoglobin 9.7 g/dL Hematocrit 31.0 % Mean Corpuscular Volume 87.8 fL Mean Corpuscular Hemoglobin 27.5 pg Mean Corpuscular Hemoglobin Concent 31.3 g/dl Platelet Count 299 K/uL Mean Platelet Volume 9.1 fL Neutrophils (%) (Auto) 48.9 % Lymphocytes (%) (Auto) 35.7 % Monocytes (%) (Auto) 12.2 % Eosinophils (%) (Auto) 2.6 % Basophils (%) (Auto) 0.3 % Neutrophils # (Auto) 2.87 K/uL Lymphocytes # (Auto) 2.10 K/uL Monocytes # (Auto) 0.72 K/uL Eosinophils # (Auto) 0.15 K/uL Basophils # (Auto) 0.02 K/uL RDW Standard Deviation 46.8 fL RDW Coefficient of Variation 14.6 % Immature Granulocyte % (Auto) 0.3 % Immature Granulocyte # (Auto) 0.02 K/uL Sodium Level 138 mmol/L Potassium Level 4.0 mmol/L Chloride Level 108 mmol/L Carbon Dioxide Level 24 mmol/L Anion Gap 6.0 mmol/L Blood Urea Nitrogen 3 mg/dl Creatinine 0.71 mg/dl Est Creatinine Clear Calc Drug Dose 77.4 ml/min Estimated GFR () 109.6 Estimated GFR (Non- 94.6 BUN/Creatinine Ratio 4.6 Random Glucose 109 mg/dl Calcium Level 9.0 mg/dl Phosphorus Level 4.4 mg/dl Magnesium Level 2.1 mg/dl Assessment & Plan SMALL BOWEL OBSTRUCTION - was doing fine with regular diet until around 2pm when she started to have abdominal pain again check KUB downgrade diet to full liquids monitor - will discuss with Gen Surg RIGHT THIGH CELLULITIS hx of recurrent infection started on iv vanco ortho consulted cx no growth, antibiotics discontinued patient afebrile, no leg pain Hx of PSVT s/p ablation on Toprol xl COPD stable Chronic pain on fentanyl patch. DVT PROPHYLAXIS Lovenox-refused scds ambulate pt/ot DISPOSITION pending, anticipate to be discharged home when medically stable ff up with PCP Dr. Jerome Murillo Current Inpatient Medications: Current Inpatient Medications Medications (Trade) Dose Ordered Sig/Jennifer Route Start Time Stop Time Status Last Admin Dose Admin Enoxaparin Sodium (Lovenox Inj) 40 mg Q24H SQ 11/15/17 12:00 12/15/17 11:59 11/25/17 11:18 40 MG Ondansetron HCl (Zofran Inj) 4 mg Q6H PRN IV 11/15/17 09:45 12/15/17 09:44 11/19/17 22:11 4 MG Albuterol (Ventolin Hfa Inhaler) 1 puffs Q4 PRN INH 11/15/17 09:45 12/15/17 09:44 Aripiprazole (Abilify Tab) 30 mg QAM PO 11/16/17 09:00 12/16/17 08:59 11/25/17 09:12 30 MG Baclofen (Lioresal Tab) 10 mg TID PO 11/15/17 14:00 12/15/17 13:59 Future hold 11/25/17 13:34 10 MG Cetirizine HCl (zyrTEC TAB) 10 mg QAM PO 11/16/17 09:00 12/16/17 08:59 11/25/17 09:13 10 MG Cyclobenzaprine HCl (Flexeril Tab) 10 mg TID PRN PO 11/15/17 09:45 12/15/17 09:44 Future hold 11/19/17 22:08 10 MG Fentanyl (Duragesic Patch) 25 mcg Q3D@0900 TD 11/15/17 13:15 11/29/17 13:14 11/24/17 09:06 25 MCG Gabapentin (Neurontin Cap) 300 mg TID PO 11/15/17 14:00 12/15/17 13:59 Future hold 11/25/17 13:34 300 MG Lorazepam (Ativan Tab) 1 mg BID PRN PO 11/15/17 09:45 12/15/17 09:44 11/23/17 21:09 1 MG Montelukast Sodium (Singulair Tab) 10 mg HS PO 11/15/17 21:00 12/15/17 20:59 Future hold 11/24/17 21:31 10 MG Ondansetron HCl (Zofran Tab) 8 mg Q6H PRN PO 11/15/17 09:45 12/15/17 09:44 11/25/17 09:42 8 MG Lubiprostone (Amitiza) 24 mcg BID PO 11/15/17 21:00 12/15/17 20:59 Future hold 11/23/17 09:10 24 MCG Metoclopramide HCl (Reglan Inj) 5 mg Q6 IV 11/15/17 14:00 12/15/17 13:59 11/25/17 11:21 5 MG Formoterol Fumarate (Perforomist 20MCG/2ML Neb Soln) 20 mcg BID INH 11/15/17 21:00 12/15/17 20:59 11/25/17 07:42 20 MCG Lamotrigine (Lamictal Tab) 125 mg BID PO 11/15/17 21:00 12/15/17 20:59 Future hold 11/25/17 09:10 125 MG Buspirone HCl (Buspar Tab) 10 mg BID PO 11/15/17 21:00 12/15/17 20:59 Future hold 11/25/17 09:15 10 MG Miscellaneous (Fentanyl Patch Remove & Waste) 1 ea Q3D@0859 N/A 11/15/17 13:14 12/15/17 13:13 11/24/17 09:05 1 EA Miscellaneous Information (Check Fentanyl Patch Placement) 1 ea QS N/A 11/15/17 16:00 12/15/17 15:59 11/25/17 08:00 1 EA Metoprolol Tartrate (Lopressor Tab) 12.5 mg BID NG 11/16/17 21:00 12/16/17 20:59 11/24/17 21:37 12.5 MG Potassium Chloride/Dextrose/ Sod Cl 1,000 ml @ 100 mls/hr Q10H IV 11/19/17 19:00 12/19/17 18:59 11/25/17 05:03 100 MLS/HR Acetaminophen 650 mg/Empty Bag 65 ml @ 260 mls/hr Q6H PRN IV 11/20/17 00:30 12/20/17 00:29 11/24/17 04:05 260 MLS/HR Acetaminophen (Tylenol Soln) 650 mg Q4H PRN NG 11/20/17 22:30 12/20/17 22:29 11/22/17 23:41 650 MG Al Hydrox/Mg Hydrox/Simethicone (Maalox Max Susp) 15 ml Q4H PRN NG 11/20/17 22:30 12/15/17 09:44 Zolpidem Tartrate (Ambien Tab) 5 mg HS PRN PO 11/21/17 19:30 12/21/17 19:29 Menthol (Nice Brown) 1 brown Q2H PRN PO 11/21/17 19:45 12/21/17 19:44 Hydromorphone HCl (Dilaudid Inj) 0.5 mg Q6H PRN IV 11/24/17 10:45 12/03/17 10:44 11/25/17 14:06 0.5 MG
--- NOTE | 2017-11-25 14:56 | DIAGNOSTIC IMAGING REPORT ---
KUB HISTORY: Small bowel obstruction. abdominal pain, follow up COMPARISON: KUB 11/19/2017. FINDINGS: Postoperative changes within the right hip. Posterior lumbosacral spinal fusion is again noted. Old, healed pelvic fractures, unchanged. Moderately distended gas-filled stomach. Multiple distended gas-filled loops of small bowel. These are similar to the prior study. The small bowel is distended up to 4.8 cm. There is gas within the proximal colon. No renal calculi. No ureteral calculi. No pneumoperitoneum or pneumatosis. IMPRESSION: No significant change in the distended gas-filled loops of small bowel and stomach consistent with a small bowel obstruction. Electronically signed by: Ricardo Anthony M.D. 11/25/2017 2:54 PM Dictated Date/Time: 11/25/2017 2:52 PM
[2017-11-25] MEDS ORDERED: NURSING VERBAL MED ORDER ONE (15:45)
[2017-11-25] MEDS: ONDANSETRON INJ 2 MG/ML 2 ML VIAL IV PRN (15:55)
[2017-11-25] MEDS ORDERED: HYDROmorphone INJ 1 MG/ML SYR IV ONE (16:00)
[2017-11-25] MEDS: ACETAMINOPHEN IV 650 MG in EMPTY BAG 0 ML IV PRN (20:11)
[2017-11-25] MEDS: MONTELUKAST SOD 10 MG TAB PO SCH (21:02)
[2017-11-25] MEDS: CYCLOBENZAPRINE HCL 10 MG TAB PO PRN (21:57)
--- NOTE | 2017-11-25 22:36 | DIAGNOSTIC IMAGING REPORT ---
KUB CLINICAL HISTORY: Abdominal pain and bloating. COMPARISON STUDY: KUB November 25, 2017 at 2:33 PM. FINDINGS: Postsurgical findings within the lumbosacral spine are noted as well as a right hip arthroplasty and a right acetabular reconstruction. Moderate small bowel dilatation has significantly changed since exam performed earlier today. Marked gastric distention is unchanged. IMPRESSION: No significant change in small bowel and gastric distention consistent with a persistent small bowel obstruction. Electronically signed by: Chuck Buenrostro M.D. 11/25/2017 10:35 PM Dictated Date/Time: 11/25/2017 10:29 PM
[2017-11-26] VITALS (15 sets, daily range): BP systolic 97–171; BP diastolic 64–118; PULSE 70–138; TEMP 36.1–37.4; O2SAT 92–98
[2017-11-26] MEDS: D5NSS + 20MEQ KCL 1,000 ML IV SCH ×3 (01:12→21:16)
[2017-11-26] MEDS: HYDROmorphone INJ 1 MG/ML SYR IV PRN ×5 (01:13→09:05)
[2017-11-26] MEDS ORDERED: OPTIRAY 320 IV PRN (01:15)
[2017-11-26] MEDS: ONDANSETRON INJ 2 MG/ML 2 ML VIAL IV PRN ×3 (01:59→19:29)
[2017-11-26] MEDS: LORAZEPAM 1 MG TAB PO PRN (03:28)
[2017-11-26] MEDS ORDERED: ACETAMINOPHEN IV 100 ML IV STA (04:31)
--- NOTE | 2017-11-26 04:45 | History and Physical ---
History & Physical Date Nov 26, 2017. Chief Complaint severe abdominal pain History of Present Illness The patient is a 57 year old female with complaints of severe abdominal pain. She has been in the hospital for the small bowel obstruction under conservative management and under Dr. Velazquez care from a general surgery standpoint since and is currently on the medical service. She was feeling well this morning tolerating a regular diet and d/c was planned for today. early this afternoon she started to develop some abdominal pain so the medical service backed her off to a full liquid diet. Early this morning she started experiencing severe abdominal pain. She was given an extra dilaudid dose a bit earlier than scheduled by Dr. Ndiaye with no relief. She has been experiencing nausea and has been vomiting in her bedside trash can. Updated CT abd/pelvis shows small bowel obstruction in the right reyes-pelvis with early pneumatosis. She is wretching and crying in pain. lactic acid and cbc w/ diff ordered. She has not had a BM since this morning. Past Medical/Surgical History Medical Problems: (1) Abscess of right hip (2) Anxiety (3) Bipolar disorder (4) Bipolar Disorder, Unspecified (5) Cervicalgia (6) Chronic alcoholism in remission (7) Chronic back pain (8) Chronic headache (9) Chronic hepatitis C (10) Chronic obstructive lung disease (11) Chronic urinary urge incontinence (12) Closed head injury (13) Depression (14) Gastroesophageal reflux disease (15) Gastroparesis (16) History of aspiration pneumonia (17) History of Clostridium difficile colitis (18) History of drug abuse (19) History of sepsis (20) History of supraventricular tachycardia (21) Incisional abscess (22) Lumbago (23) Osteoarthritis (24) Osteoarthritis of hip (25) Osteoporosis (26) Pancreatitis (27) PTSD (post-traumatic stress disorder) (28) seroma Right hip (29) Small bowel obstruction (30) SVT (supraventricular tachycardia) (31) Ulnar neuropathy Surgical Problems: (1) Bladder Repair (2) H/O colonoscopy (3) H/O cystoscopy (4) H/O esophagogastroduodenoscopy (5) H/O sinus surgery (6) History of hip surgery (7) Right Tibia/Fibula Repair (8) S/P cervical spinal fusion (9) s/p colonoscopy (10) s/p cystoscopy (11) s/p EGD (12) S/p esophagogastric fundoplasty (13) s/p laparoscopic fundoplication hiatal hernia (14) S/p lumbar decompression/fusion (15) S/P ORIF (open reduction internal fixation) fracture (16) s/p reconstruction hip socket (17) s/p tonsillectomy (18) S/P tonsillectomy and adenoidectomy (19) s/p tubal ligation (20) S/P tubal ligation Allergies Coded Allergies: Hydroxyzine (Verified Allergy, Severe, THROAT CONSTRICTS/CAN NOT VOID, ) Clarithromycin (Verified Adverse Reaction, Intermediate, vomiting, ) Lisinopril (Verified Adverse Reaction, Mild, Cough, 11/15/17) Reported by PT. Chlorpromazine (Verified Adverse Reaction, Unknown, LIGHTHEADED DIZZY, ) Home Medications Scheduled Aripiprazole (Abilify), 30 MG PO QAM Baclofen (Lioresal), 10 MG PO TID Buspirone Hcl (Buspirone Hcl), 10 MG PO BID Calcium Carbonate-Vitamin D (Oscal 500/200 D-3), 1 TAB PO DAILY Cetirizine (Zyrtec), 10 MG PO QAM Famotidine (Pepcid), 40 MG PO DAILY Fentanyl (Duragesic), 25 MCG TD Q72H Gabapentin (Neurontin), 300 MG PO TID Lamotrigine (Lamictal), 125 MG PO BID Lubiprostone (Amitiza), 24 MCG PO BID Metoclopramide Hcl (Reglan), 5 MG PO ACHS Metoprolol Succinate (Toprol Xl), 25 MG PO QAM Montelukast Sodium (Singulair), 10 MG PO HS Multivitamin (Multivitamin), 1 TAB PO QAM Ocuvite Preservision (Ocuvite Preservision), 1 TAB PO DAILY Sulindac (Sulindac), 150 MG PO BID Scheduled PRN Albuterol (Ventolin Hfa), 90 MCG INH for Wheezing Cyclobenzaprine Hcl (Flexeril), 10 MG PO TID PRN for Muscle Spasms Formoterol Fumarate (Perforomist), 20 MCG INH for Wheezing Furosemide (Lasix), 20 MG PO DAILY PRN for SWELLING Lorazepam (Lorazepam), 1 MG PO BID PRN for Anxiety Ondansetron Hcl (Zofran), 8 MG PO Q6H PRN for Nausea Polyethylene Glycol 3350 (Miralax), 17 GM PO DAILY PRN for PRN Potassium Chloride (Micro-K Ext Rel), 10 MEQ PO DAILY PRN for PRN Physical Examination Eyes: normal inspection Head: normocephalic, atraumatic Neck: trachea midline Respiratory/Chest: lungs clear, normal breath sounds Cardiovascular: regular rate, rhythm, no murmur Abdomen / GI: + pertinent finding (Severe TTP, distention, guarding and bloating.) Neurologic/Psych: alert, + pertinent finding (Crying and hysterical due to pain in abdomen) Diagnosis small bowel obstruction with early pneumatosis ASA Classification: ASA Class III Plan of Treatment small bowel obstruction with early pneumatosis, severe abdominal pain Pain uncontrolled despite recent dilaudid injection, Nausea, vomiting. Plan for exploratory laparotomy with possible bowel resection with Dr. Coello this AM. NG tube placed. Findings discussed with Dr. Coello, OR notified.
[2017-11-26 04:56] LABS: HEMATOCRIT 36.2 % (37-47); HEMOGLOBIN 11.1 g/dL (12.0-16.0); MEAN CORPUSCULAR HEMOGLOBIN 26.7 pg (25-34); MEAN CORPUSCULAR HGB CONC 30.7 g/dl (32-36); MEAN PLATELET VOLUME 9.9 fL (7.4-10.4); PLATELET COUNT 394 K/uL (130-400); RED CELL DISTRIBUTION WIDTH CV 14.6 % (11.5-14.5); RED CELL DISTRIBUTION WIDTH SD 46.6 fL (36.4-46.3)
[2017-11-26] MEDS ORDERED: FENTANYL CITRATE INJ 50 MCG/1 ML 2 ML VIAL ONE ×3 (05:03→08:38)
[2017-11-26] MEDS ORDERED: MIDAZOLAM HCL 1 MG/ML 2ML VIAL ONE (05:03)
[2017-11-26] MEDS ORDERED: BUPIVACAINE 0.5 % 5 MG/1 ML MPF 30ML VIAL ONE (05:06)
[2017-11-26] MEDS ORDERED: EpINEphrine INJ 1MG/ML AMP 1 MG/ML AMP ONE (05:06)
--- NOTE | 2017-11-26 05:18 | History & Physical Bridge Note ---
H&P Re-Evaluation Bridge Note: I have examined the patient, reviewed the History & Physical and in the interval since the performance of the History & Physical I have noted the following changes of clinical significance: called by hospitalist for acute change clinically. pt with severe abdominal pain. inconsolable despite narcotics. stat CT showing transition point with questionable pneumotosis. pt currently inconsolable. abdomen distended/ firm. diffuse /extreme tenderness. lactic acid still pending. clinically c/w ischemic bowel. to OR emergently. discussed risks ( bleeding/infection/dvt/pe/mi/cva/injury to organs such as bowel/leaks etc... questions answered. will proceed with ex-lap stat.
[2017-11-26] MEDS: METOCLOPRAMIDE HCL INJ 5 MG/ML 2 ML VIAL IV SCH ×3 (06:00→17:55)
[2017-11-26] MEDS ORDERED: PROPOFOL IV EMULSION 10 MG/ML 20 ML VIAL IV ONE (07:00)
[2017-11-26] MEDS ORDERED: ONDANSETRON INJ 2 MG/ML 2 ML VIAL ONE (07:00)
[2017-11-26] MEDS ORDERED: SUCCINYLCHOLINE CHLORIDE 20 MG/ML 10 ML VIAL IV ONE (07:00)
[2017-11-26] MEDS ORDERED: LIDOCAINE HCL 2% 2 ML VIAL (20MG/ML) ONE (07:00)
[2017-11-26] MEDS ORDERED: GLYCOPYRROLATE INJ 0.2 MG/ML VIAL ONE (07:02)
[2017-11-26] MEDS ORDERED: NEOSTIGMINE METHYLSULFATE 5 MG/5 ML SYR ONE (07:02)
[2017-11-26] MEDS ORDERED: EpHEDrine SULFATE INJ 50 MG/ML AMP ONE (07:03)
[2017-11-26] MEDS ORDERED: SODIUM CHLORIDE 0.9% INJ 10 ML VIAL ONE (07:03)
[2017-11-26] MEDS ORDERED: HYDROmorphone INJ 2 MG/ML SYR/VIAL ONE (07:08)
--- NOTE | 2017-11-26 07:33 | DIAGNOSTIC IMAGING REPORT ---
CT SCAN OF THE ABDOMEN AND PELVIS WITH IV CONTRAST CLINICAL HISTORY: Generalized abdominal pain. COMPARISON STUDY: KUB dated 11/25/2017. Abdominal CT dated 11/15/2017. TECHNIQUE: Following the IV administration of 92 cc of Optiray 320, CT scan of the abdomen and pelvis is performed from the lung bases to the proximal femora. Images are reviewed in the axial, sagittal, and coronal planes. IV contrast was administered without complication. A dose lowering technique was utilized adhering to the principles of ALARA. The Examination is degraded by streak artifact from extensive orthopedic hardware. CT DOSE: 355.14 mGy.cm FINDINGS: Lung bases: The heart is normal in size and without pericardial effusion. Segmental atelectasis is seen at the lung bases. No airspace consolidation is identified typical for pneumonia and there is no pleural effusion. The distal esophagus is distended and filled with fluid. Liver: The contrast-enhanced liver is normal in size, contour, and attenuation. There is no intrahepatic biliary ductal dilatation. The hepatic veins and portal veins are patent. Gallbladder: Unremarkable. Spleen: Normal in size and attenuation. Pancreas: Moderately atrophic and grossly unremarkable. Adrenal glands: Unremarkable. Kidneys: The contrast enhanced kidneys demonstrate cortical atrophy and are without hydronephrosis. The kidneys enhance symmetrically. Abdominal vasculature: The abdominal aorta is normal in course and caliber. Stomach and bowel: There is a tiny hiatal hernia. The configuration of the gastroesophageal junction suggests previous fundoplication. The stomach is distended and fluid-filled. The small bowel loops are distended and fluid-filled. Small bowel loops measure up to 5.1 cm in transverse diameter. A transition point is identified in the right lower quadrant on image #239. The distal small bowel and colon are decompressed, and the appearance is consistent with a high-grade small bowel obstruction. Pneumatosis intestinalis is questioned involving small bowel to the right lower quadrant (image #282). No portal venous gas is identified and there are no focally thick walled bowel loops seen. The appendix is well-visualized and normal. Peritoneum: There is trace abdominopelvic ascites. No intraperitoneal free air is seen. There is a small fat-containing umbilical hernia. Small foci of subcutaneous gas within the ventral abdominal wall are likely related to subcutaneous injections. Lymphadenopathy: Mildly enlarged right inguinal lymph nodes measure up to 1.6 cm in short axis. There is no abdominal, retroperitoneal, or pelvic adenopathy. No left inguinal adenopathy is identified. Pelvic viscera: Evaluation of the pelvis is degraded by streak artifact from arthritic hardware in the right hip arthroplasty. The bladder is grossly normal as visualized. The uterus is normal as imaged. No adnexal lesion is seen. Skeletal structures: The skeletal structures are osteopenic. There is posterior matter deformity of the right hemipelvis with buttress plate fixation. A right hip arthroplasty is in place. Extensive thoracolumbar spinal fusion hardware and iliac bolts are in place. No lytic or blastic lesions are seen. IMPRESSION: 1. Findings are consistent with a high-grade small bowel obstruction. A transition point is identified in the right lower quadrant and this is likely on the basis of adhesions. 2. There is trace free fluid in the abdomen and pelvis. No intraperitoneal free air is seen. 3. Mild pneumatosis intestinalis is questioned involving bowel loops in the right lower quadrant. There is no portal venous gas or focally thick walled bowel loops. 4. Additional chronic findings as above. Electronically signed by: Jeffry Colunga M.D. 11/26/2017 7:32 AM Dictated Date/Time: 11/26/2017 7:21 AM
[2017-11-26] MEDS ORDERED: FUROSEMIDE 20 MG TAB PO PRN (07:45)
[2017-11-26] MEDS ORDERED: POTASSIUM CHLORIDE 10 MEQ TABCR PO PRN (07:45)
[2017-11-26] MEDS: FORMOTEROL FUMA NEBULIZER SOLN 20 MCG/2 ML VIAL INH SCH ×2 (08:00→19:11)
--- NOTE | 2017-11-26 08:28 | [facility] Operative Report ---
Operative Report Operative Date Nov 26, 2017. Pre-Operative Diagnosis Acute Abdomnial pain Post-Operative Diagnosis Small Bowel Obstuction, Small Bowel ischemia, Adhesions Procedure(s) Performed Exploratory Laparotomy Release of Small Bowel Obstruction, Small Bowel Decompression, Enterolysis, esophagogastroduodenoscopy Surgeon Dr. Jamir Coello Helicopter Technician Surgeon(s) Dr. Les Sosa MD; Florencio Huang PA-c Estimated Blood Loss 20 ml Findings SBO with transition point in pelvis; small bowel ischemia; adhesions Specimens Microbiology #1 Abdominal Fluid for routine culture and sensitivity, Gram stain, anaerobic, aerobic sent out of room at 0606 Drains KENROY into pelvis Anesthesia get Disposition Recovery Room / PACU Description of Procedure Brief history this is a 57-year-old female who had acute clinical changes overnight with severe abdominal pain. CAT scan showed small bowel obstruction with possible pneumatosis of small bowel the pelvis. She was in uncontrollable pain. She is brought to the operating room for emergent laparotomy After informed consent was obtained the patient was taken to the operating room and placed in supine position. After successful intubation a Bojorquez catheter was placed and the abdomen was sterilely prepped and draped in usual fashion. I Used her old midline incision and reopened this with a 10 blade scalpel. This was carried down through the soft tissue using electrocautery. I was able to elevate peritoneum and opened with a Metzenbaum scissor. I then extended this down to the pelvis inferiorly and to just below the xiphoid superiorly. Once in the abdomen there was markedly dilated small bowel throughout. We took down some of the adhesions as well as some the omentum using the LigaSure device. We took down adhesions bluntly and sharply throughout the case as we went. Eventually I was able to follow the dilated bowel to an acute transition point in the pelvis where it had looped over and adhesed to itself. I freed this up with sharp scissor lysis. This was clearly the point of obstruction and the area of ischemia. The bowel was dark however after we released the obstruction over the next 15-20 minutes it did pink up and get back to almost normal. There were several other areas of abnormality primarily due to adhesive disease. Dr. Sosa came into the room and scrubbed into the case to give me some assistance. We continued to lyse these adhesions until eventually we were able to free everything up from the ligament of Treitz to the cecum. 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 Nonetheless we were able to follow from the ligament of Treitz down to the cecum. The bowel was massively dilated and would make closure impossible. We therefore decided to choose a piece of distal small bowel and made a small enterotomy and decompressed the entire small bowel which was filled with over 1000 mL of succus, food debris and air. Once we decompressed all the small bowel we then closed the small enterotomy with a TA stapling device. I did oversew the staple line with 3-0 silk in Lembert fashion. We then changed our gloves. Dr. Sosa scrubbed out of the case at this point. I thoroughly irrigated the entire wound. I took down some additional adhesions as well. There was no longer evidence of ischemia. There was some murky fluid at the beginning of the case I therefore decided to place a Fred-Olivia drain which I brought through a separate stab incision and placed in the pelvis and secured the skin using 2-0 silk. The stomach was massively dilated as well. Multiple attempts by anesthesia to pass the NG tube was unsuccessful. She did have a history of some sort a fundoplication procedure in the past. I decided to perform an endoscopy at the end of the case. After thoroughly irrigating the abdomen I then closed it using #1 PDS starting at either end and running them and securing them in the midline. Soft tissue was irrigated and skin was closed using skin portia and a silver dressing was applied I then performed intraoperative EGD. It was quite difficult to pass the scope through the distal esophagus and the stomach from this prior fundoplication procedure. Eventually I was able to get in the stomach and suctioned out over 1000 mL of food debris bile and succus. We tried to use the gastroscope as a stent so that we could pass a nasogastric tube. We tried for approximately half hour to accomplish this. Just quite honestly was not safe to continue as worried creating an esophageal perforation we therefore aborted attempt at nasogastric tube. The esophagus itself appeared normal without trauma at the end of the case. There was no bleeding. After completely decompressing the stomach withdrew the gastroscope. The patient was then awaken extubated and transferred recovery in stable condition My physician's perinatal breastfeeding assistant was present throughout the entire case. He helped prepped the patient helped with exposure/retraction throughout the case. He helped with wound closure and dressing placement I attest to the content of the Intraoperative Record and any orders documented therein. Any exceptions are noted below.
[2017-11-26] MEDS ORDERED: FENTANYL CITRATE INJ 50 MCG/1 ML 2 ML VIAL IV PRN (08:45)
[2017-11-26] MEDS ORDERED: ATROPINE SULFATE 0.1 MG/ML 5ML SYR IV PRN (08:45)
[2017-11-26] MEDS ORDERED: EpHEDrine SULFATE INJ 50 MG/ML AMP IV PRN (08:45)
[2017-11-26] MEDS ORDERED: ONDANSETRON INJ 2 MG/ML 2 ML VIAL IV PRN (08:45)
--- NOTE | 2017-11-26 09:07 | Anesthesiology Progress Note ---
Anesthesia Post Op Note Date & Time Nov 26, 2017 at 09:07 Vital Signs Pain Intensity: 8.0 Vital Signs Past 12 Hours Date Time Temp Pulse Resp B/P (MAP) Pulse Ox O2 Delivery O2 Flow Rate FiO2 11/26/17 08:55 103 26 115/83 100 Oxymask 10 11/26/17 08:45 101 19 101/79 100 Oxymask 10 11/26/17 08:35 95 18 104/80 98 Oxymask 10 11/26/17 08:29 36.0 95 18 108/79 98 Oxymask 10 11/26/17 04:43 37.0 80 18 171/118 (135) 93 Room Air 11/25/17 23:40 93 Room Air 11/25/17 23:00 36.3 87 18 125/84 (98) 93 Room Air Notes Mental Status: alert / awake / arousable, participated in evaluation Pt Amnestic to Procedure: Yes Nausea / Vomiting: adequately controlled Pain: adequately controlled Airway Patency, RR, SpO2: stable & adequate BP & HR: stable & adequate Hydration State: stable & adequate Anesthetic Complications: no major complications apparent
[2017-11-26] MEDS: CHECK FENTANYL PATCH PLACEMENT SCH ×2 (10:28→16:58)
[2017-11-26] MEDS ORDERED: NALOXONE HCL 0.4 MG/1 ML VIAL/CARP IV PRN (11:00)
[2017-11-26] MEDS: LUBIPROSTONE 8 MCG CAP PO SCH ×2 (11:02→20:18)
[2017-11-26] MEDS: CALCIUM 600MG + VIT D 400 IU TAB PO SCH (11:02)
[2017-11-26] MEDS: METOPROLOL TARTRATE 25 MG TAB NG SCH (11:02)
[2017-11-26] MEDS: ARIPIprazole TAB 15 MG TAB PO SCH (11:02)
[2017-11-26] MEDS: BACLOFEN 10 MG TAB PO SCH ×3 (11:03→20:18)
[2017-11-26] MEDS: GABAPENTIN 300 MG CAP PO SCH ×3 (11:03→20:19)
[2017-11-26] MEDS: CEROVITE ADV FORMULA TAB PO SCH (11:03)
[2017-11-26] MEDS: MULTIVITAMIN TAB PO SCH (11:03)
[2017-11-26] MEDS: CETIRIZINE HCL 10 MG TAB PO SCH (11:04)
[2017-11-26] MEDS: ACETAMINOPHEN IV 650 MG in EMPTY BAG 0 ML IV PRN (11:39)
[2017-11-26] MEDS: ENOXAPARIN 40 MG/0.4 ML SYR SQ SCH (11:42)
[2017-11-26] MEDS: SODIUM CHLORIDE 0.9% 1000ML 1,000 ML IV SCH (11:59)
[2017-11-26] MEDS: HYDROmorphone HCL 0.5MG/ML 50 ML CASSETTE IV PRN (12:08)
[2017-11-26] MEDS ORDERED: ROCURONIUM BROMIDE 10 MG/ML 5 ML VIAL IV ONE (13:13)
[2017-11-26] MEDS ORDERED: METOPROLOL TARTRATE 1 MG/ML VIAL IV. STA (13:48)
[2017-11-26] MEDS ORDERED: METOPROLOL TARTRATE 1 MG/ML VIAL ONE (13:49)
[2017-11-26] MEDS ORDERED: PANTOprazole INJ 40 MG in SYRINGE 0 ML IV SCH (14:15)
[2017-11-26 14:30] LABS: CALCIUM 8.7 mg/dl (8.5-10.1); CREATININE 0.71 mg/dl (0.60-1.20)
[2017-11-26] MEDS: MAGNESIUM SULFATE 1GM / D5W 1 GM in PREMIXED IN D5W 100 ML IV SCH ×2 (16:58→17:54)
[2017-11-26] MEDS: MONTELUKAST SOD 10 MG TAB PO SCH (20:19)
--- NOTE | 2017-11-26 20:20 | Progress Note ---
Medicine Progress Note Date & Time of Visit: Nov 26, 2017 at 20:13. Subjective patient seen resting in bed s/p Exploratory Laparotomy Release of Small Bowel Obstruction, Small Bowel Decompression, Enterolysis, esophagogastroduodenoscopy reports heartburn some soreness on the surgical site, no nausea no chest pain, dyspnea, palpitations, dizziness no other symptoms Objective Last 8 Hrs Date Time Temp Pulse Resp B/P (MAP) Pulse Ox O2 Delivery O2 Flow Rate FiO2 11/26/17 19:03 36.7 120 18 105/69 (81) 94 Room Air 11/26/17 16:20 Room Air 11/26/17 15:33 37.1 113 17 97/66 (76) 93 Room Air 11/26/17 15:04 36.7 70 16 101/64 (76) 95 Room Air 11/26/17 14:45 138 20 93 2.0 11/26/17 14:12 137 116/68 11/26/17 14:11 137 116/68 11/26/17 14:05 138 20 116/78 (91) 93 2.0 11/26/17 13:10 134 18 117/82 (94) 95 2.0 11/26/17 12:53 36.5 129 16 121/87 (98) 96 2.0 Physical Exam: General- oriented x 3, not in distress, speaks in sentences with no effort Neck- no JVD Lungs- clear BS bilaterally, no rales/wheezes Heart- regular rhythm; no murmur, normal rate Abdomen- normal bowel sounds, soft, dressing in place- no bleeding, discharge Extremities- no pretibial edema, no calf tenderness Neuro- alert, oriented x 3; no gross focal deficits Skin- warm & dry Laboratory Results: Last 24 Hours Test 11/26/17 04:36 11/26/17 04:42 11/26/17 13:47 Lactic Acid Level 1.4 mmol/L White Blood Count 10.90 K/uL Red Blood Count 4.16 M/uL Hemoglobin 11.1 g/dL Hematocrit 36.2 % Mean Corpuscular Volume 87.0 fL Mean Corpuscular Hemoglobin 26.7 pg Mean Corpuscular Hemoglobin Concent 30.7 g/dl RDW Standard Deviation 46.6 fL RDW Coefficient of Variation 14.6 % Platelet Count 394 K/uL Mean Platelet Volume 9.9 fL Sodium Level 135 mmol/L Potassium Level 4.0 mmol/L Chloride Level 106 mmol/L Carbon Dioxide Level 20 mmol/L Anion Gap 9.0 mmol/L Blood Urea Nitrogen 12 mg/dl Creatinine 0.71 mg/dl Est Creatinine Clear Calc Drug Dose 77.4 ml/min Estimated GFR () 109.6 Estimated GFR (Non- 94.6 BUN/Creatinine Ratio 16.3 Random Glucose 156 mg/dl Calcium Level 8.7 mg/dl Magnesium Level 1.5 mg/dl Date/Time Source Procedure Growth Status 11/26/17 06:04 Peritoneal Fluid Gram Stain - Final Resulted 11/26/17 06:04 Peritoneal Fluid Bacterial Culture Pending Resulted Assessment & Plan SMALL BOWEL OBSTRUCTION - s/p Exploratory Laparotomy Release of Small Bowel Obstruction, Small Bowel Decompression, Enterolysis, esophagogastroduodenoscopy - continue NPO, Bowel rest appreciate Gen Surg recommendations SINUS TACHYCARDIA - likely from not being able to take usual Metoprolol also with stress, pain, possible dehydration - Metoprolol 2.5mg IV q8h for now IV NSS monitor K and Mg RIGHT THIGH CELLULITIS hx of recurrent infection started on iv vanco ortho consulted cx no growth, antibiotics discontinued Hx of PSVT s/p ablation on Toprol xl usually COPD stable Chronic pain on fentanyl patch. DVT PROPHYLAXIS Lovenox DISPOSITION pending, anticipate to be discharged home when medically stable ff up with PCP Dr. Jerome Murillo Current Inpatient Medications: Current Inpatient Medications Medications (Trade) Dose Ordered Sig/Jennifer Route Start Time Stop Time Status Last Admin Dose Admin Ondansetron HCl (Zofran Inj) 4 mg Q6H PRN IV 11/15/17 09:45 12/15/17 09:44 11/26/17 19:29 4 MG Albuterol (Ventolin Hfa Inhaler) 1 puffs Q4 PRN INH 11/15/17 09:45 12/15/17 09:44 Aripiprazole (Abilify Tab) 30 mg QAM PO 11/16/17 09:00 12/16/17 08:59 11/25/17 09:12 30 MG Baclofen (Lioresal Tab) 10 mg TID PO 11/15/17 14:00 12/15/17 13:59 Future hold 11/25/17 21:03 10 MG Cetirizine HCl (zyrTEC TAB) 10 mg QAM PO 11/16/17 09:00 12/16/17 08:59 11/25/17 09:13 10 MG Cyclobenzaprine HCl (Flexeril Tab) 10 mg TID PRN PO 11/15/17 09:45 12/15/17 09:44 Future hold 11/25/17 21:57 10 MG Fentanyl (Duragesic Patch) 25 mcg Q3D@0900 TD 11/15/17 13:15 11/29/17 13:14 11/24/17 09:06 25 MCG Gabapentin (Neurontin Cap) 300 mg TID PO 11/15/17 14:00 12/15/17 13:59 Future hold 11/25/17 21:03 300 MG Lorazepam (Ativan Tab) 1 mg BID PRN PO 11/15/17 09:45 12/15/17 09:44 11/26/17 03:28 1 MG Montelukast Sodium (Singulair Tab) 10 mg HS PO 11/15/17 21:00 12/15/17 20:59 Future hold 11/25/17 21:02 10 MG Ondansetron HCl (Zofran Tab) 8 mg Q6H PRN PO 11/15/17 09:45 12/15/17 09:44 11/25/17 09:42 8 MG Lubiprostone (Amitiza) 24 mcg BID PO 11/15/17 21:00 12/15/17 20:59 Future hold 11/23/17 09:10 24 MCG Metoclopramide HCl (Reglan Inj) 5 mg Q6 IV 11/15/17 14:00 12/15/17 13:59 11/26/17 17:55 5 MG Formoterol Fumarate (Perforomist 20MCG/2ML Neb Soln) 20 mcg BID INH 11/15/17 21:00 12/15/17 20:59 11/26/17 19:11 20 MCG Lamotrigine (Lamictal Tab) 125 mg BID PO 11/15/17 21:00 12/15/17 20:59 Future hold 11/25/17 21:03 125 MG Buspirone HCl (Buspar Tab) 10 mg BID PO 11/15/17 21:00 12/15/17 20:59 Future hold 11/25/17 21:02 10 MG Miscellaneous (Fentanyl Patch Remove & Waste) 1 ea Q3D@0859 N/A 11/15/17 13:14 12/15/17 13:13 11/24/17 09:05 1 EA Miscellaneous Information (Check Fentanyl Patch Placement) 1 ea QS N/A 11/15/17 16:00 12/15/17 15:59 11/26/17 16:58 1 EA Potassium Chloride/Dextrose/ Sod Cl 1,000 ml @ 125 mls/hr Q8H IV 11/19/17 19:00 12/19/17 18:59 11/26/17 11:04 100 MLS/HR Acetaminophen 650 mg/Empty Bag 65 ml @ 260 mls/hr Q6H PRN IV 11/20/17 00:30 12/20/17 00:29 11/26/17 11:39 260 MLS/HR Al Hydrox/Mg Hydrox/Simethicone (Maalox Max Susp) 15 ml Q4H PRN NG 11/20/17 22:30 12/15/17 09:44 Zolpidem Tartrate (Ambien Tab) 5 mg HS PRN PO 11/21/17 19:30 12/21/17 19:29 Menthol (Nice Brown) 1 brown Q2H PRN PO 11/21/17 19:45 12/21/17 19:44 Hydromorphone HCl (Dilaudid Inj) 0.5 mg Q6H PRN IV 11/24/17 10:45 12/03/17 10:44 11/26/17 01:13 0.5 MG Ioversol (Optiray 320) 100 ml UD PRN IV 11/26/17 01:15 11/30/17 01:14 Multivitamins (Multivitamin Tab) 1 tab QAM PO 11/26/17 09:00 12/26/17 08:59 Multivitamins/ Minerals (Multivitamin W/ Minerals Tab) 1 tab DAILY PO 11/26/17 09:00 12/26/17 08:59 Miscellaneous Information (Order Awaiting Action) 1 ea QS N/A 11/26/17 16:00 12/26/17 15:59 Calcium/Vitamin D (Caltrate Plus Tab) 1 tab DAILY PO 11/26/17 09:00 12/26/17 08:59 Naloxone HCl (Narcan Inj) 0.1 mg Q5M PRN IV 11/26/17 11:00 12/26/17 10:59 Hydromorphone HCl (Dilaudid [employer]) 25 mg PRN PRN IV 11/26/17 11:00 12/10/17 10:59 11/26/17 12:08 25 MG Sodium Chloride 1,000 ml @ 15 mls/hr Q24H IV 11/26/17 10:59 12/26/17 10:58 Metoprolol Tartrate (Lopressor Iv) 2.5 mg Q8H IV. 11/26/17 22:00 12/26/17 21:59 Pantoprazole Sodium 40 mg/ Syringe 10 ml @ 5 mls/min DAILY@11 IV 11/27/17 11:00 12/27/17 10:59
[2017-11-26] MEDS: METOPROLOL TARTRATE 1 MG/ML VIAL IV. SCH (21:16)
[2017-11-27] VITALS (12 sets, daily range): BP systolic 103–143; BP diastolic 67–98; PULSE 78–119; TEMP 36.7–37.7; O2SAT 2–93
[2017-11-27] MEDS: METOCLOPRAMIDE HCL INJ 5 MG/ML 2 ML VIAL IV SCH ×5 (00:13→23:31)
[2017-11-27] MEDS: CHECK FENTANYL PATCH PLACEMENT SCH ×4 (00:13→23:32)
[2017-11-27] MEDS: D5NSS + 20MEQ KCL 1,000 ML IV SCH (03:36)
[2017-11-27] MEDS: LORAZEPAM 1 MG TAB PO PRN ×2 (05:02→20:07)
[2017-11-27] MEDS: METOPROLOL TARTRATE 1 MG/ML VIAL IV. SCH ×3 (05:59→22:42)
[2017-11-27 06:30] LABS: BASO % 0.1 %; BASO ABS # 0.01 K/uL (0-0.2); HEMATOCRIT 33.7 % (37-47); HEMOGLOBIN 10.3 g/dL (12.0-16.0); IG# 0.05 K/uL (0.00-0.02); LYMPH % 7.1 %; MEAN CELL VOLUME 86.9 fL (80-100); MEAN CORPUSCULAR HEMOGLOBIN 26.5 pg (25-34); MEAN CORPUSCULAR HGB CONC 30.6 g/dl (32-36); MEAN PLATELET VOLUME 9.5 fL (7.4-10.4); MONO % 10.1 %; NEUT % 82.4 %; NEUT ABS # 13.93 K/uL (1.4-6.5); PLATELET COUNT 388 K/uL (130-400); RED CELL DISTRIBUTION WIDTH SD 48.2 fL (36.4-46.3); WHITE BLOOD COUNT 16.89 K/uL (4.8-10.8)
[2017-11-27] MEDS: FORMOTEROL FUMA NEBULIZER SOLN 20 MCG/2 ML VIAL INH SCH ×2 (06:55→19:00)
[2017-11-27 07:07] LABS: CALCIUM 8.3 mg/dl (8.5-10.1); CREATININE 1.17 mg/dl (0.60-1.20); POTASSIUM 5.2 mmol/L (3.5-5.1)
[2017-11-27] MEDS: FENTANYL PATCH REMOVE & WASTE SCH (08:59)
[2017-11-27] MEDS: CALCIUM 600MG + VIT D 400 IU TAB PO SCH (09:00)
[2017-11-27] MEDS: BACLOFEN 10 MG TAB PO SCH ×3 (09:00→21:13)
[2017-11-27] MEDS: CEROVITE ADV FORMULA TAB PO SCH (09:00)
[2017-11-27] MEDS: LUBIPROSTONE 8 MCG CAP PO SCH ×3 (09:00→21:13)
[2017-11-27] MEDS: CETIRIZINE HCL 10 MG TAB PO SCH (09:00)
[2017-11-27] MEDS: MULTIVITAMIN TAB PO SCH (09:00)
[2017-11-27] MEDS: GABAPENTIN 300 MG CAP PO SCH ×3 (09:00→21:14)
[2017-11-27] MEDS: ONDANSETRON INJ 2 MG/ML 2 ML VIAL IV PRN ×2 (09:17→16:50)
[2017-11-27] MEDS ORDERED: METOPROLOL TARTRATE 1 MG/ML VIAL IV STA (10:22)
[2017-11-27] MEDS ORDERED: OPTIRAY 320 IV PRN (10:30)
[2017-11-27] MEDS: SODIUM CHLORIDE 0.9% 1000ML 1,000 ML IV SCH (10:59)
--- NOTE | 2017-11-27 12:05 | Surgery Progress Note ---
Surgery Progress Note Date of Service Nov 27, 2017. Subjective Post OP Day: 1 + using [employer] (pain control marginal), + nausea Objective Vital Signs: Date Time Temp Pulse Resp B/P (MAP) Pulse Ox O2 Delivery O2 Flow Rate FiO2 11/27/17 08:29 37.5 119 23 110/67 (81) 89 Room Air 11/27/17 06:55 117 16 90 Room Air 11/27/17 05:59 119 113/78 11/27/17 05:02 114 17 103/72 (82) 93 2.0 11/27/17 04:00 Nasal Cannula 2.0 11/27/17 03:45 37.7 114 25 118/75 (89) 92 Nasal Cannula 2.0 11/27/17 00:00 Nasal Cannula 2.0 11/26/17 23:40 37.4 108 20 103/71 (82) 92 Nasal Cannula 2.0 11/26/17 21:31 93 11/26/17 21:16 117 11/26/17 20:05 Room Air 11/26/17 19:11 116 16 93 Nasal Cannula 2.0 11/26/17 19:03 36.7 120 18 105/69 (81) 94 Room Air 11/26/17 16:20 Room Air 11/26/17 15:33 37.1 113 17 97/66 (76) 93 Room Air 11/26/17 14:45 138 20 93 2.0 11/26/17 14:12 137 116/68 11/26/17 14:11 137 116/68 11/26/17 14:05 138 20 116/78 (91) 93 2.0 11/26/17 13:10 134 18 117/82 (94) 95 2.0 11/26/17 12:53 36.5 129 16 121/87 (98) 96 2.0 Physical Exam: KENROY drainage (50 cc ) Abdomen: soft, + distended (slightly) Incision(s): intact (dressing) Laboratory Results: Results Past 24 Hours Test 11/26/17 13:47 11/27/17 06:16 Range/Units Sodium Level 135 135 136-145 mmol/L Potassium Level 4.0 5.2 3.5-5.1 mmol/L Chloride Level 106 109 98-107 mmol/L Carbon Dioxide Level 20 21 21-32 mmol/L Anion Gap 9.0 5.0 3-11 mmol/L Blood Urea Nitrogen 12 22 7-18 mg/dl Creatinine 0.71 1.17 0.60-1.20 mg/dl Est Creatinine Clear Calc Drug Dose 77.4 46.8 ml/min Estimated GFR () 109.6 59.9 Estimated GFR (Non- 94.6 51.7 BUN/Creatinine Ratio 16.3 19.1 10-20 Random Glucose 156 135 70-99 mg/dl Calcium Level 8.7 8.3 8.5-10.1 mg/dl Magnesium Level 1.5 2.4 1.8-2.4 mg/dl White Blood Count 16.89 4.8-10.8 K/uL Red Blood Count 3.88 4.2-5.4 M/uL Hemoglobin 10.3 12.0-16.0 g/dL Hematocrit 33.7 37-47 % Mean Corpuscular Volume 86.9 80-100 fL Mean Corpuscular Hemoglobin 26.5 25-34 pg Mean Corpuscular Hemoglobin Concent 30.6 32-36 g/dl Platelet Count 388 130-400 K/uL Mean Platelet Volume 9.5 7.4-10.4 fL Neutrophils (%) (Auto) 82.4 % Lymphocytes (%) (Auto) 7.1 % Monocytes (%) (Auto) 10.1 % Eosinophils (%) (Auto) 0.0 % Basophils (%) (Auto) 0.1 % Neutrophils # (Auto) 13.93 1.4-6.5 K/uL Lymphocytes # (Auto) 1.20 1.2-3.4 K/uL Monocytes # (Auto) 1.70 0.11-0.59 K/uL Eosinophils # (Auto) 0.00 0-0.5 K/uL Basophils # (Auto) 0.01 0-0.2 K/uL RDW Standard Deviation 48.2 36.4-46.3 fL RDW Coefficient of Variation 15.0 11.5-14.5 % Immature Granulocyte % (Auto) 0.3 % Immature Granulocyte # (Auto) 0.05 0.00-0.02 K/uL Assessment & Plan Exploratory Laparotomy Release of Small Bowel Obstruction, Small Bowel Decompression, Enterolysis, esophagogastroduodenoscopy transferred to PCU for post op tachycardia CT chest pending r/o PE IV team trying to establish larger IV anticipate post op ileus, consider PICC for TPN pain control marginal, [employer] already at 0.5mg q 10 min + IV Tylenol, will avoid Toradol for now 11/27/17 as above. doing ok. pre-op pain is resolved anticipate post op ileus ( possibly severe). unable to place NGT b/c of prior gastric fundoplication [facility] covering this weekend.
[2017-11-27] MEDS: D5W AND NSS 1,000 ML IV SCH ×2 (12:18→16:45)
[2017-11-27] MEDS: ARIPIprazole TAB 15 MG TAB PO SCH (12:31)
[2017-11-27] MEDS: PANTOprazole INJ 40 MG in SYRINGE 0 ML IV SCH (12:32)
[2017-11-27] MEDS: ACETAMINOPHEN IV 650 MG in EMPTY BAG 0 ML IV PRN (12:50)
[2017-11-27] MEDS: FENTANYL 25 MCG/HR TDSY TD SCH (12:56)
--- NOTE | 2017-11-27 13:39 | DIAGNOSTIC IMAGING REPORT ---
CT ANGIOGRAM OF THE CHEST CLINICAL HISTORY: Dyspnea. COMPARISON STUDY: Chest CT scans dated 11/14/2016 and 11/08/2015. Abdominal CT dated 11/26/2017. TECHNIQUE: Following the IV administration of 83 cc of Optiray 320, CT angiogram of the chest was performed from the upper abdomen to the thoracic inlet utilizing the pulmonary embolus protocol. Images are reviewed in the axial, sagittal, and coronal planes. 3-D MIPS images are created and assessed. IV contrast was administered without complication. A dose lowering technique was utilized adhering to the principles of ALARA. The examination is degraded by motion artifact, as well as by streak artifact from the arms which could not be elevated above the chest. CT DOSE: 311.83 mGy.cm FINDINGS: Thyroid: Imaged portions of the thyroid gland are normal in size and attenuation. Thoracic aorta: The thoracic aorta is normal in caliber and demonstrates standard 3-vessel arch anatomy. No dissection is seen. Pulmonary vasculature: The pulmonary trunk is normal in caliber. There are no filling defects identified in main, lobar, or segmental pulmonary branches to suggest pulmonary embolus. Heart: The heart is normal in size and configuration, and without pericardial effusion. Lungs and pleural spaces: Segmental atelectasis is present at both lung bases. No airspace consolidation is identified typical for pneumonia. No pleural effusion is seen. Debris is present in the right bronchus intermedius. The trachea is patent. Scattered calcified granulomas are noted. Mediastinum: There is no mediastinal lymphadenopathy. Lesly: Clear. Axillae: There is no axillary lymphadenopathy. Upper abdomen: The esophagus is markedly distended and filled with fluid to the level of the thoracic inlet. The gallbladder is distended and filled with hyperdense material, likely representing vicariously excreted contrast. The stomach is markedly distended. A calcified granuloma seen in the left lobe of the liver. Small foci of intraperitoneal free air are identified. Abdominal skin clips are noted on the aitchbone breaker tomogram. Skeletal structures: No lytic or blastic bony lesions are seen. Fusion hardware seen in the lower cervical spine. Degenerative change and mild kyphoscoliosis are present in the thoracic spine. IMPRESSION: 1. Streak and motion compromised examination. 2. There is no evidence of pulmonary embolus in the main, lobar, or segmental pulmonary arteries. 3. The stomach is markedly distended and fluid-filled. Additionally, the esophagus is markedly distended and filled with fluid to the level of the thoracic inlet. This is likely related to the patient's history of small bowel obstruction. Note that this may place the patient risk for aspiration. 4. Small foci of intraperitoneal free air are identified and may be related to recent surgery. Clinical correlation will be essential. 5. Segmental atelectasis is present at both lung bases. There is no airspace consolidation identified typical for pneumonia. 6. Additional findings as above. Electronically signed by: Jeffry Colunga M.D. 11/27/2017 1:37 PM Dictated Date/Time: 11/27/2017 1:32 PM
[2017-11-27] MEDS: HYDROmorphone HCL 0.5MG/ML 50 ML CASSETTE IV PRN (17:28)
--- NOTE | 2017-11-27 19:34 | Progress Note ---
Medicine Progress Note Date & Time of Visit: Nov 27, 2017 at 19:29. Subjective seen sitting up in bed, not in distress does complain of abdominal pain- soreness no nausea denies chest pain, palpitations, dizziness no other symptoms Objective Last 8 Hrs Date Time Temp Pulse Resp B/P (MAP) Pulse Ox O2 Delivery O2 Flow Rate FiO2 11/27/17 19:05 36.9 100 17 128/77 (94) 90 Room Air 11/27/17 19:02 104 14 90 Room Air 11/27/17 16:26 Nasal Cannula 2.0 11/27/17 15:53 36.8 89 19 110/70 (83) 93 Room Air 11/27/17 14:36 101 110/70 11/27/17 13:00 36.7 90 16 105/98 (100) 92 Nasal Cannula 2.0 11/27/17 12:58 92 Nasal Cannula 2.0 11/27/17 12:20 122 Physical Exam: General- oriented x 3, not in distress, speaks in sentences with no effort Neck- no JVD Lungs- clear breath sounds bilaterally, no rales/wheezes Heart- tachycardia, regular rhythm Abdomen- hypoactive bowel sounds, soft, dressing in place- no bleeding, discharge Extremities- no pretibial edema, no calf tenderness Neuro- alert, oriented x 3; no gross focal deficits Skin- warm & dry Laboratory Results: Last 24 Hours Test 11/27/17 06:16 White Blood Count 16.89 K/uL Red Blood Count 3.88 M/uL Hemoglobin 10.3 g/dL Hematocrit 33.7 % Mean Corpuscular Volume 86.9 fL Mean Corpuscular Hemoglobin 26.5 pg Mean Corpuscular Hemoglobin Concent 30.6 g/dl Platelet Count 388 K/uL Mean Platelet Volume 9.5 fL Neutrophils (%) (Auto) 82.4 % Lymphocytes (%) (Auto) 7.1 % Monocytes (%) (Auto) 10.1 % Eosinophils (%) (Auto) 0.0 % Basophils (%) (Auto) 0.1 % Neutrophils # (Auto) 13.93 K/uL Lymphocytes # (Auto) 1.20 K/uL Monocytes # (Auto) 1.70 K/uL Eosinophils # (Auto) 0.00 K/uL Basophils # (Auto) 0.01 K/uL RDW Standard Deviation 48.2 fL RDW Coefficient of Variation 15.0 % Immature Granulocyte % (Auto) 0.3 % Immature Granulocyte # (Auto) 0.05 K/uL Sodium Level 135 mmol/L Potassium Level 5.2 mmol/L Chloride Level 109 mmol/L Carbon Dioxide Level 21 mmol/L Anion Gap 5.0 mmol/L Blood Urea Nitrogen 22 mg/dl Creatinine 1.17 mg/dl Est Creatinine Clear Calc Drug Dose 46.8 ml/min Estimated GFR () 59.9 Estimated GFR (Non- 51.7 BUN/Creatinine Ratio 19.1 Random Glucose 135 mg/dl Calcium Level 8.3 mg/dl Magnesium Level 2.4 mg/dl Assessment & Plan SMALL BOWEL OBSTRUCTION - s/p Exploratory Laparotomy Release of Small Bowel Obstruction, Small Bowel Decompression, Enterolysis, esophagogastroduodenoscopy - post op day 1 main symptom is abdominal pain on Dilaudid pump - continue NPO except some meds appreciate Gen Surg recommendations SINUS TACHYCARDIA - likely from not being able to take usual Metoprolol also with stress, pain, possible dehydration - HR improved but still elevated increase Metoprolol to 5 mg IV q8h for now IV NSS monitor K and Mg - CT angio: no PE RIGHT THIGH CELLULITIS hx of recurrent infection started on iv vanco ortho consulted cx no growth, antibiotics discontinued Hx of PSVT s/p ablation on Toprol xl usually COPD stable Chronic pain on fentanyl patch DVT PROPHYLAXIS will discuss with Gen Surg if Heparin/Lovenox may be resumed DISPOSITION pending ff up with PCP Dr. Jerome Murillo Current Inpatient Medications: Current Inpatient Medications Medications (Trade) Dose Ordered Sig/Jennifer Route Start Time Stop Time Status Last Admin Dose Admin Ondansetron HCl (Zofran Inj) 4 mg Q6H PRN IV 11/15/17 09:45 12/15/17 09:44 11/27/17 16:50 4 MG Albuterol (Ventolin Hfa Inhaler) 1 puffs Q4 PRN INH 11/15/17 09:45 12/15/17 09:44 Aripiprazole (Abilify Tab) 30 mg QAM PO 11/16/17 09:00 12/16/17 08:59 11/27/17 12:31 30 MG Baclofen (Lioresal Tab) 10 mg TID PO 11/15/17 14:00 12/15/17 13:59 Future hold 11/27/17 12:29 10 MG Cetirizine HCl (zyrTEC TAB) 10 mg QAM PO 11/16/17 09:00 12/16/17 08:59 11/25/17 09:13 10 MG Cyclobenzaprine HCl (Flexeril Tab) 10 mg TID PRN PO 11/15/17 09:45 12/15/17 09:44 Future hold 11/25/17 21:57 10 MG Fentanyl (Duragesic Patch) 25 mcg Q3D@0900 TD 11/15/17 13:15 11/29/17 13:14 11/27/17 12:56 25 MCG Gabapentin (Neurontin Cap) 300 mg TID PO 11/15/17 14:00 12/15/17 13:59 Future hold 11/27/17 12:27 300 MG Lorazepam (Ativan Tab) 1 mg BID PRN PO 11/15/17 09:45 12/15/17 09:44 11/27/17 05:02 1 MG Montelukast Sodium (Singulair Tab) 10 mg HS PO 11/15/17 21:00 12/15/17 20:59 Future hold 11/25/17 21:02 10 MG Ondansetron HCl (Zofran Tab) 8 mg Q6H PRN PO 11/15/17 09:45 12/15/17 09:44 11/25/17 09:42 8 MG Lubiprostone (Amitiza) 24 mcg BID PO 11/15/17 21:00 12/15/17 20:59 Future hold 11/27/17 12:24 24 MCG Metoclopramide HCl (Reglan Inj) 5 mg Q6 IV 11/15/17 14:00 12/15/17 13:59 11/27/17 16:51 5 MG Formoterol Fumarate (Perforomist 20MCG/2ML Neb Soln) 20 mcg BID INH 11/15/17 21:00 12/15/17 20:59 11/27/17 19:00 20 MCG Lamotrigine (Lamictal Tab) 125 mg BID PO 11/15/17 21:00 12/15/17 20:59 Future hold 11/27/17 12:25 125 MG Buspirone HCl (Buspar Tab) 10 mg BID PO 11/15/17 21:00 12/15/17 20:59 Future hold 11/27/17 12:37 10 MG Miscellaneous (Fentanyl Patch Remove & Waste) 1 ea Q3D@0859 N/A 11/15/17 13:14 12/15/17 13:13 11/27/17 08:59 1 EA Miscellaneous Information (Check Fentanyl Patch Placement) 1 ea QS N/A 11/15/17 16:00 12/15/17 15:59 11/27/17 14:36 1 EA Acetaminophen 650 mg/Empty Bag 65 ml @ 260 mls/hr Q6H PRN IV 11/20/17 00:30 12/20/17 00:29 11/27/17 12:50 260 MLS/HR Al Hydrox/Mg Hydrox/Simethicone (Maalox Max Susp) 15 ml Q4H PRN NG 11/20/17 22:30 12/15/17 09:44 Zolpidem Tartrate (Ambien Tab) 5 mg HS PRN PO 11/21/17 19:30 12/21/17 19:29 Menthol (Nice Brown) 1 brown Q2H PRN PO 11/21/17 19:45 12/21/17 19:44 Hydromorphone HCl (Dilaudid Inj) 0.5 mg Q6H PRN IV 11/24/17 10:45 12/03/17 10:44 11/26/17 01:13 0.5 MG Ioversol (Optiray 320) 100 ml UD PRN IV 11/26/17 01:15 11/30/17 01:14 Multivitamins (Multivitamin Tab) 1 tab QAM PO 11/26/17 09:00 12/26/17 08:59 Multivitamins/ Minerals (Multivitamin W/ Minerals Tab) 1 tab DAILY PO 11/26/17 09:00 12/26/17 08:59 Miscellaneous Information (Order Awaiting Action) 1 ea QS N/A 11/26/17 16:00 12/26/17 15:59 Calcium/Vitamin D (Caltrate Plus Tab) 1 tab DAILY PO 11/26/17 09:00 12/26/17 08:59 Naloxone HCl (Narcan Inj) 0.1 mg Q5M PRN IV 11/26/17 11:00 12/26/17 10:59 Hydromorphone HCl (Dilaudid Assistant Bookkeeper) 25 mg PRN PRN IV 11/26/17 11:00 12/10/17 10:59 11/27/17 17:28 25 MG Sodium Chloride 1,000 ml @ 15 mls/hr Q24H IV 11/26/17 10:59 12/26/17 10:58 Pantoprazole Sodium 40 mg/ Syringe 10 ml @ 5 mls/min DAILY@11 IV 11/27/17 11:00 11/30/17 10:59 11/27/17 12:32 5 MLS/MIN Dextrose/Sodium Chloride 1,000 ml @ 125 mls/hr Q8H IV 11/27/17 08:45 12/27/17 08:44 11/27/17 12:18 125 MLS/HR Metoprolol Tartrate (Lopressor Iv) 5 mg Q8H IV. 11/27/17 14:00 12/26/17 21:59 11/27/17 14:36 5 MG Ioversol (Optiray 320) 100 ml UD PRN IV 11/27/17 10:30 12/01/17 10:29
[2017-11-27 21:02] LABS: CALCIUM 8.2 mg/dl (8.5-10.1); POTASSIUM 4.5 mmol/L (3.5-5.1)
[2017-11-27 21:14] LABS: CREATININE 0.8 mg/dl (0.60-1.20)
[2017-11-27] MEDS: MONTELUKAST SOD 10 MG TAB PO SCH (21:14)
[2017-11-27] MEDS: ZOLPIDEM TARTRATE 5 MG TAB PO PRN (23:32)
[2017-11-28] VITALS (37 sets, daily range): BP systolic 122–159; BP diastolic 70–95; PULSE 73–109; TEMP 36.5–37.2; O2SAT 88–96
[2017-11-28] MEDS: D5W AND NSS 1,000 ML IV SCH ×3 (00:44→19:14)
[2017-11-28] MEDS: ONDANSETRON INJ 2 MG/ML 2 ML VIAL IV PRN (03:04)
[2017-11-28] MEDS ORDERED: NURSING VERBAL MED ORDER ONE ×2 (04:45→12:45)
[2017-11-28] MEDS ORDERED: METOPROLOL TARTRATE 1 MG/ML VIAL IV STA (04:51)
[2017-11-28] MEDS: LORAZEPAM 1 MG TAB PO PRN (05:01)
[2017-11-28 05:47] LABS: BASO % 0.1 %; BASO ABS # 0.02 K/uL (0-0.2); EOS % 0.1 %; EOS ABS # 0.01 K/uL (0-0.5); HEMATOCRIT 29.5 % (37-47); HEMOGLOBIN 9.1 g/dL (12.0-16.0); IG# 0.05 K/uL (0.00-0.02); LYMPH % 8.5 %; LYMPH ABS # 1.29 K/uL (1.2-3.4); MEAN CELL VOLUME 87.8 fL (80-100); MEAN CORPUSCULAR HEMOGLOBIN 27.1 pg (25-34); MEAN CORPUSCULAR HGB CONC 30.8 g/dl (32-36); MEAN PLATELET VOLUME 9.5 fL (7.4-10.4); MONO % 9.3 %; MONO ABS # 1.41 K/uL (0.11-0.59); NEUT % 81.7 %; NEUT ABS # 12.34 K/uL (1.4-6.5); PLATELET COUNT 363 K/uL (130-400); RED CELL DISTRIBUTION WIDTH CV 15.1 % (11.5-14.5); RED CELL DISTRIBUTION WIDTH SD 48.5 fL (36.4-46.3); WHITE BLOOD COUNT 15.12 K/uL (4.8-10.8)
[2017-11-28] MEDS: METOCLOPRAMIDE HCL INJ 5 MG/ML 2 ML VIAL IV SCH ×3 (05:53→19:14)
[2017-11-28] MEDS: METOPROLOL TARTRATE 1 MG/ML VIAL IV. SCH ×3 (05:55→22:07)
[2017-11-28 06:05] LABS: BLOOD UREA NITROGEN 20 mg/dl (7-18); CARBON DIOXIDE 22 mmol/L (21-32); CREATININE 0.62 mg/dl (0.60-1.20); GLUCOSE 119 mg/dl (70-99); POTASSIUM 3.9 mmol/L (3.5-5.1); SODIUM 140 mmol/L (136-145)
[2017-11-28 06:19] LABS: CKMB 1.9 ng/ml (0.5-3.6)
[2017-11-28] MEDS: FORMOTEROL FUMA NEBULIZER SOLN 20 MCG/2 ML VIAL INH SCH ×2 (07:01→19:17)
[2017-11-28] MEDS: BACLOFEN 10 MG TAB PO SCH ×3 (09:00→22:06)
[2017-11-28] MEDS: GABAPENTIN 300 MG CAP PO SCH ×3 (09:00→22:06)
[2017-11-28] MEDS: CETIRIZINE HCL 10 MG TAB PO SCH (09:00)
[2017-11-28] MEDS: CEROVITE ADV FORMULA TAB PO SCH (09:00)
[2017-11-28] MEDS: MULTIVITAMIN TAB PO SCH (09:00)
[2017-11-28] MEDS: CALCIUM 600MG + VIT D 400 IU TAB PO SCH (09:00)
[2017-11-28] MEDS: CHECK FENTANYL PATCH PLACEMENT SCH ×2 (09:03→16:00)
--- NOTE | 2017-11-28 09:49 | Progress Note ---
Medicine Progress Note Date & Time of Visit: Nov 28, 2017 at 09:45. Objective Last 8 Hrs Date Time Temp Pulse Resp B/P (MAP) Pulse Ox O2 Delivery O2 Flow Rate FiO2 11/28/17 08:20 36.6 85 14 136/70 (92) 92 Nasal Cannula 1.5 11/28/17 07:04 73 16 93 Nasal Cannula 2.0 11/28/17 06:00 36.6 103 18 159/95 (116) 91 Room Air 11/28/17 05:55 96 130/76 11/28/17 05:45 100 17 130/76 (94) 92 11/28/17 05:30 91 13 122/72 (89) 92 11/28/17 05:15 93 16 129/77 (94) 93 11/28/17 05:01 97 28 154/85 (108) 93 11/28/17 05:00 108 157/93 11/28/17 05:00 94 17 96 11/28/17 04:45 88 16 133/75 (94) 95 11/28/17 04:30 90 18 123/76 (92) 95 11/28/17 04:26 102 14 134/82 (99) 95 11/28/17 04:15 100 9 91 11/28/17 04:15 100 9 91 11/28/17 04:00 101 17 92 11/28/17 04:00 101 17 92 11/28/17 03:49 107 24 159/95 (116) 93 11/28/17 03:45 102 12 91 11/28/17 03:30 101 14 91 11/28/17 03:30 91 Room Air 11/28/17 03:15 103 13 91 11/28/17 03:00 109 14 91 11/28/17 02:45 98 13 90 11/28/17 02:30 98 10 90 11/28/17 02:15 95 16 92 11/28/17 02:00 94 11 92 Physical Exam: General- oriented x 3, not in distress, speaks in sentences with no effort Neck- no JVD Lungs- clear breath sounds bilaterally, no rales/wheezes Heart- tachycardia, regular rhythm Abdomen- hypoactive bowel sounds, soft, dressing in place- no bleeding, discharge Extremities- no pretibial edema, no calf tenderness Neuro- alert, oriented x 3; no gross focal deficits Skin- warm & dry Laboratory Results: Last 24 Hours Test 11/27/17 20:11 11/28/17 05:35 Sodium Level 139 mmol/L 140 mmol/L Potassium Level 4.5 mmol/L 3.9 mmol/L Chloride Level 112 mmol/L 113 mmol/L Carbon Dioxide Level 17 mmol/L 22 mmol/L Anion Gap 10.0 mmol/L 5.0 mmol/L Blood Urea Nitrogen 23 mg/dl 20 mg/dl Creatinine 0.80 mg/dl 0.62 mg/dl Est Creatinine Clear Calc Drug Dose 68.5 ml/min 88.4 ml/min Estimated GFR () 94.9 116.0 Estimated GFR (Non- 81.8 100.1 BUN/Creatinine Ratio 29.3 31.5 Random Glucose 134 mg/dl 119 mg/dl Calcium Level 8.2 mg/dl 8.0 mg/dl White Blood Count 15.12 K/uL Red Blood Count 3.36 M/uL Hemoglobin 9.1 g/dL Hematocrit 29.5 % Mean Corpuscular Volume 87.8 fL Mean Corpuscular Hemoglobin 27.1 pg Mean Corpuscular Hemoglobin Concent 30.8 g/dl Platelet Count 363 K/uL Mean Platelet Volume 9.5 fL Neutrophils (%) (Auto) 81.7 % Lymphocytes (%) (Auto) 8.5 % Monocytes (%) (Auto) 9.3 % Eosinophils (%) (Auto) 0.1 % Basophils (%) (Auto) 0.1 % Neutrophils # (Auto) 12.34 K/uL Lymphocytes # (Auto) 1.29 K/uL Monocytes # (Auto) 1.41 K/uL Eosinophils # (Auto) 0.01 K/uL Basophils # (Auto) 0.02 K/uL RDW Standard Deviation 48.5 fL RDW Coefficient of Variation 15.1 % Immature Granulocyte % (Auto) 0.3 % Immature Granulocyte # (Auto) 0.05 K/uL Magnesium Level 2.4 mg/dl Total Creatine Kinase 198 U/L Creatine Kinase MB 1.9 ng/ml Creatine Kinase MB Ratio 1.0 Troponin I < 0.015 ng/ml Assessment & Plan SMALL BOWEL OBSTRUCTION - s/p Exploratory Laparotomy Release of Small Bowel Obstruction, Small Bowel Decompression, Enterolysis, esophagogastroduodenoscopy - post op day 1 main symptom is abdominal pain on Dilaudid pump - continue NPO except some meds appreciate Gen Surg recommendations SINUS TACHYCARDIA - likely from not being able to take usual Metoprolol also with stress, pain, possible dehydration - HR improved but still elevated increase Metoprolol to 5 mg IV q8h for now IV NSS monitor K and Mg - CT angio: no PE RIGHT THIGH CELLULITIS hx of recurrent infection started on iv vanco ortho consulted cx no growth, antibiotics discontinued Hx of PSVT s/p ablation on Toprol xl usually COPD stable Chronic pain on fentanyl patch DVT PROPHYLAXIS will discuss with Gen Surg if Heparin/Lovenox may be resumed DISPOSITION pending ff up with PCP Dr. Jerome Murillo Current Inpatient Medications: Current Inpatient Medications Medications (Trade) Dose Ordered Sig/Jennifer Route Start Time Stop Time Status Last Admin Dose Admin Ondansetron HCl (Zofran Inj) 4 mg Q6H PRN IV 11/15/17 09:45 12/15/17 09:44 11/28/17 03:04 4 MG Albuterol (Ventolin Hfa Inhaler) 1 puffs Q4 PRN INH 11/15/17 09:45 12/15/17 09:44 Aripiprazole (Abilify Tab) 30 mg QAM PO 11/16/17 09:00 12/16/17 08:59 11/27/17 12:31 30 MG Baclofen (Lioresal Tab) 10 mg TID PO 11/15/17 14:00 12/15/17 13:59 Future hold 11/27/17 21:13 10 MG Cetirizine HCl (zyrTEC TAB) 10 mg QAM PO 11/16/17 09:00 12/16/17 08:59 11/25/17 09:13 10 MG Cyclobenzaprine HCl (Flexeril Tab) 10 mg TID PRN PO 11/15/17 09:45 12/15/17 09:44 Future hold 11/25/17 21:57 10 MG Fentanyl (Duragesic Patch) 25 mcg Q3D@0900 TD 11/15/17 13:15 11/29/17 13:14 11/27/17 12:56 25 MCG Gabapentin (Neurontin Cap) 300 mg TID PO 11/15/17 14:00 12/15/17 13:59 Future hold 11/27/17 12:27 300 MG Lorazepam (Ativan Tab) 1 mg BID PRN PO 11/15/17 09:45 12/15/17 09:44 11/28/17 05:01 1 MG Montelukast Sodium (Singulair Tab) 10 mg HS PO 11/15/17 21:00 12/15/17 20:59 Future hold 11/25/17 21:02 10 MG Ondansetron HCl (Zofran Tab) 8 mg Q6H PRN PO 11/15/17 09:45 12/15/17 09:44 11/25/17 09:42 8 MG Lubiprostone (Amitiza) 24 mcg BID PO 11/15/17 21:00 12/15/17 20:59 Future hold 11/27/17 12:24 24 MCG Metoclopramide HCl (Reglan Inj) 5 mg Q6 IV 11/15/17 14:00 12/15/17 13:59 11/28/17 05:53 5 MG Formoterol Fumarate (Perforomist 20MCG/2ML Neb Soln) 20 mcg BID INH 11/15/17 21:00 12/15/17 20:59 11/28/17 07:01 20 MCG Lamotrigine (Lamictal Tab) 125 mg BID PO 11/15/17 21:00 12/15/17 20:59 Future hold 11/27/17 21:10 125 MG Buspirone HCl (Buspar Tab) 10 mg BID PO 11/15/17 21:00 12/15/17 20:59 Future hold 11/27/17 21:12 10 MG Miscellaneous (Fentanyl Patch Remove & Waste) 1 ea Q3D@0859 N/A 11/15/17 13:14 12/15/17 13:13 11/27/17 08:59 1 EA Miscellaneous Information (Check Fentanyl Patch Placement) 1 ea QS N/A 11/15/17 16:00 12/15/17 15:59 11/28/17 09:03 1 EA Acetaminophen 650 mg/Empty Bag 65 ml @ 260 mls/hr Q6H PRN IV 11/20/17 00:30 12/20/17 00:29 11/27/17 12:50 260 MLS/HR Al Hydrox/Mg Hydrox/Simethicone (Maalox Max Susp) 15 ml Q4H PRN NG 11/20/17 22:30 12/15/17 09:44 Zolpidem Tartrate (Ambien Tab) 5 mg HS PRN PO 11/21/17 19:30 12/21/17 19:29 11/27/17 23:32 5 MG Menthol (Nice Brown) 1 brown Q2H PRN PO 11/21/17 19:45 12/21/17 19:44 Hydromorphone HCl (Dilaudid Inj) 0.5 mg Q6H PRN IV 11/24/17 10:45 12/03/17 10:44 11/26/17 01:13 0.5 MG Ioversol (Optiray 320) 100 ml UD PRN IV 11/26/17 01:15 11/30/17 01:14 Multivitamins (Multivitamin Tab) 1 tab QAM PO 11/26/17 09:00 12/26/17 08:59 Multivitamins/ Minerals (Multivitamin W/ Minerals Tab) 1 tab DAILY PO 11/26/17 09:00 12/26/17 08:59 Miscellaneous Information (Order Awaiting Action) 1 ea QS N/A 11/26/17 16:00 12/26/17 15:59 Calcium/Vitamin D (Caltrate Plus Tab) 1 tab DAILY PO 11/26/17 09:00 12/26/17 08:59 Naloxone HCl (Narcan Inj) 0.1 mg Q5M PRN IV 11/26/17 11:00 12/26/17 10:59 Hydromorphone HCl (Dilaudid Shellfish Grower) 25 mg PRN PRN IV 11/26/17 11:00 12/10/17 10:59 11/27/17 17:28 25 MG Sodium Chloride 1,000 ml @ 15 mls/hr Q24H IV 11/26/17 10:59 12/26/17 10:58 Pantoprazole Sodium 40 mg/ Syringe 10 ml @ 5 mls/min DAILY@11 IV 11/27/17 11:00 11/30/17 10:59 11/27/17 12:32 5 MLS/MIN Dextrose/Sodium Chloride 1,000 ml @ 125 mls/hr Q8H IV 11/27/17 08:45 12/27/17 08:44 11/28/17 09:03 125 MLS/HR Metoprolol Tartrate (Lopressor Iv) 5 mg Q8H IV. 11/27/17 14:00 12/26/17 21:59 11/28/17 05:55 5 MG Ioversol (Optiray 320) 100 ml UD PRN IV 11/27/17 10:30 12/01/17 10:29
[2017-11-28] MEDS: SODIUM CHLORIDE 0.9% 1000ML 1,000 ML IV SCH (09:59)
--- NOTE | 2017-11-28 10:01 | Progress Note ---
Medicine Progress Note Date & Time of Visit: Nov 28, 2017 at 09:50. Subjective seen resting in bedside chair not in distress, appears anxious states she feels weak, "not able to think straight", alert, oriented x 3, asks appropriate questions and answers all my questions promptly, correctly still feels sore, appears more comfortable than yesterday no nausea, but does expectorate/bring up small amounts of clear liquids/fluids occasionally denies shortness of breath, chest pain, dyspnea, palpitations no other symptoms Objective Last 8 Hrs Date Time Temp Pulse Resp B/P (MAP) Pulse Ox O2 Delivery O2 Flow Rate FiO2 11/28/17 08:20 36.6 85 14 136/70 (92) 92 Nasal Cannula 1.5 11/28/17 08:00 89 Room Air 11/28/17 07:04 73 16 93 Nasal Cannula 2.0 11/28/17 06:00 36.6 103 18 159/95 (116) 91 Room Air 11/28/17 05:55 96 130/76 11/28/17 05:45 100 17 130/76 (94) 92 11/28/17 05:30 91 13 122/72 (89) 92 11/28/17 05:15 93 16 129/77 (94) 93 11/28/17 05:01 97 28 154/85 (108) 93 11/28/17 05:00 108 157/93 11/28/17 05:00 94 17 96 11/28/17 04:45 88 16 133/75 (94) 95 11/28/17 04:30 90 18 123/76 (92) 95 11/28/17 04:26 102 14 134/82 (99) 95 11/28/17 04:15 100 9 91 11/28/17 04:15 100 9 91 11/28/17 04:00 101 17 92 11/28/17 04:00 101 17 92 11/28/17 03:49 107 24 159/95 (116) 93 11/28/17 03:45 102 12 91 11/28/17 03:30 101 14 91 11/28/17 03:30 91 Room Air 11/28/17 03:15 103 13 91 11/28/17 03:00 109 14 91 11/28/17 02:45 98 13 90 11/28/17 02:30 98 10 90 11/28/17 02:15 95 16 92 11/28/17 02:00 94 11 92 Physical Exam: General- oriented x 3, not in distress, speaks in sentences with no effort Lungs- clear BS bilaterally, no rales/wheezes Heart- normal rate, regular rhythm, no murmurs Abdomen- hypoactive bowel sounds, soft, dressing in place- no bleeding, discharge Extremities- no pretibial edema, no calf tenderness Neuro- alert, oriented x 3; no gross focal deficits Skin- warm & dry Laboratory Results: Last 24 Hours Test 11/27/17 20:11 11/28/17 05:35 Sodium Level 139 mmol/L 140 mmol/L Potassium Level 4.5 mmol/L 3.9 mmol/L Chloride Level 112 mmol/L 113 mmol/L Carbon Dioxide Level 17 mmol/L 22 mmol/L Anion Gap 10.0 mmol/L 5.0 mmol/L Blood Urea Nitrogen 23 mg/dl 20 mg/dl Creatinine 0.80 mg/dl 0.62 mg/dl Est Creatinine Clear Calc Drug Dose 68.5 ml/min 88.4 ml/min Estimated GFR () 94.9 116.0 Estimated GFR (Non- 81.8 100.1 BUN/Creatinine Ratio 29.3 31.5 Random Glucose 134 mg/dl 119 mg/dl Calcium Level 8.2 mg/dl 8.0 mg/dl White Blood Count 15.12 K/uL Red Blood Count 3.36 M/uL Hemoglobin 9.1 g/dL Hematocrit 29.5 % Mean Corpuscular Volume 87.8 fL Mean Corpuscular Hemoglobin 27.1 pg Mean Corpuscular Hemoglobin Concent 30.8 g/dl Platelet Count 363 K/uL Mean Platelet Volume 9.5 fL Neutrophils (%) (Auto) 81.7 % Lymphocytes (%) (Auto) 8.5 % Monocytes (%) (Auto) 9.3 % Eosinophils (%) (Auto) 0.1 % Basophils (%) (Auto) 0.1 % Neutrophils # (Auto) 12.34 K/uL Lymphocytes # (Auto) 1.29 K/uL Monocytes # (Auto) 1.41 K/uL Eosinophils # (Auto) 0.01 K/uL Basophils # (Auto) 0.02 K/uL RDW Standard Deviation 48.5 fL RDW Coefficient of Variation 15.1 % Immature Granulocyte % (Auto) 0.3 % Immature Granulocyte # (Auto) 0.05 K/uL Magnesium Level 2.4 mg/dl Total Creatine Kinase 198 U/L Creatine Kinase MB 1.9 ng/ml Creatine Kinase MB Ratio 1.0 Troponin I < 0.015 ng/ml Assessment & Plan SMALL BOWEL OBSTRUCTION - 11/26/17 s/p Exploratory Laparotomy Release of Small Bowel Obstruction, Small Bowel Decompression, Enterolysis, esophagogastroduodenoscopy - post op day 2 pain seems to be improving, on GRAIN WEIGHER Dilaudid pump CT chest: distended stomach and esophagus- fluid filled - discussed with Dr. Campos on the phone recommend hold off ice chips/sips may need NG tube insertion c/o GI, TPN awaiting further recommendations by Dr. Campos SINUS TACHYCARDIA - likely from not being able to take usual Metoprolol also with stress, pain, possible dehydration - HR improved continue Metoprolol to 5 mg IV q8h for now IV D5 + NSS monitor K and Mg - CT angio: no PE RIGHT THIGH CELLULITIS hx of recurrent infection started on iv vanco ortho consulted cx no growth, antibiotics discontinued Hx of PSVT s/p ablation on Toprol xl usually COPD stable Chronic pain on fentanyl patch Dilaudid pump DVT PROPHYLAXIS will discuss with Gen Surg if Heparin/Lovenox may be resumed SCDs, ambulation DISPOSITION pending ff up with PCP Dr. Jerome Murillo ff up with Gen Surg Current Inpatient Medications: Current Inpatient Medications Medications (Trade) Dose Ordered Sig/Jennifer Route Start Time Stop Time Status Last Admin Dose Admin Ondansetron HCl (Zofran Inj) 4 mg Q6H PRN IV 11/15/17 09:45 12/15/17 09:44 11/28/17 03:04 4 MG Albuterol (Ventolin Hfa Inhaler) 1 puffs Q4 PRN INH 11/15/17 09:45 12/15/17 09:44 Aripiprazole (Abilify Tab) 30 mg QAM PO 11/16/17 09:00 12/16/17 08:59 11/27/17 12:31 30 MG Baclofen (Lioresal Tab) 10 mg TID PO 11/15/17 14:00 12/15/17 13:59 Future hold 11/27/17 21:13 10 MG Cetirizine HCl (zyrTEC TAB) 10 mg QAM PO 11/16/17 09:00 12/16/17 08:59 11/25/17 09:13 10 MG Cyclobenzaprine HCl (Flexeril Tab) 10 mg TID PRN PO 11/15/17 09:45 12/15/17 09:44 Future hold 11/25/17 21:57 10 MG Fentanyl (Duragesic Patch) 25 mcg Q3D@0900 TD 11/15/17 13:15 11/29/17 13:14 11/27/17 12:56 25 MCG Gabapentin (Neurontin Cap) 300 mg TID PO 11/15/17 14:00 12/15/17 13:59 Future hold 11/27/17 12:27 300 MG Lorazepam (Ativan Tab) 1 mg BID PRN PO 11/15/17 09:45 12/15/17 09:44 11/28/17 05:01 1 MG Montelukast Sodium (Singulair Tab) 10 mg HS PO 11/15/17 21:00 12/15/17 20:59 Future hold 11/25/17 21:02 10 MG Ondansetron HCl (Zofran Tab) 8 mg Q6H PRN PO 11/15/17 09:45 12/15/17 09:44 11/25/17 09:42 8 MG Lubiprostone (Amitiza) 24 mcg BID PO 11/15/17 21:00 12/15/17 20:59 Future hold 11/27/17 12:24 24 MCG Metoclopramide HCl (Reglan Inj) 5 mg Q6 IV 11/15/17 14:00 12/15/17 13:59 11/28/17 05:53 5 MG Formoterol Fumarate (Perforomist 20MCG/2ML Neb Soln) 20 mcg BID INH 11/15/17 21:00 12/15/17 20:59 11/28/17 07:01 20 MCG Lamotrigine (Lamictal Tab) 125 mg BID PO 11/15/17 21:00 12/15/17 20:59 Future hold 11/27/17 21:10 125 MG Buspirone HCl (Buspar Tab) 10 mg BID PO 11/15/17 21:00 12/15/17 20:59 Future hold 11/27/17 21:12 10 MG Miscellaneous (Fentanyl Patch Remove & Waste) 1 ea Q3D@0859 N/A 11/15/17 13:14 12/15/17 13:13 11/27/17 08:59 1 EA Miscellaneous Information (Check Fentanyl Patch Placement) 1 ea QS N/A 11/15/17 16:00 12/15/17 15:59 11/28/17 09:03 1 EA Acetaminophen 650 mg/Empty Bag 65 ml @ 260 mls/hr Q6H PRN IV 11/20/17 00:30 12/20/17 00:29 11/27/17 12:50 260 MLS/HR Al Hydrox/Mg Hydrox/Simethicone (Maalox Max Susp) 15 ml Q4H PRN NG 11/20/17 22:30 12/15/17 09:44 Zolpidem Tartrate (Ambien Tab) 5 mg HS PRN PO 11/21/17 19:30 12/21/17 19:29 11/27/17 23:32 5 MG Menthol (Nice Brown) 1 brown Q2H PRN PO 11/21/17 19:45 12/21/17 19:44 Hydromorphone HCl (Dilaudid Inj) 0.5 mg Q6H PRN IV 11/24/17 10:45 12/03/17 10:44 11/26/17 01:13 0.5 MG Ioversol (Optiray 320) 100 ml UD PRN IV 11/26/17 01:15 11/30/17 01:14 Multivitamins (Multivitamin Tab) 1 tab QAM PO 11/26/17 09:00 12/26/17 08:59 Multivitamins/ Minerals (Multivitamin W/ Minerals Tab) 1 tab DAILY PO 11/26/17 09:00 12/26/17 08:59 Miscellaneous Information (Order Awaiting Action) 1 ea QS N/A 11/26/17 16:00 12/26/17 15:59 Calcium/Vitamin D (Caltrate Plus Tab) 1 tab DAILY PO 11/26/17 09:00 12/26/17 08:59 Naloxone HCl (Narcan Inj) 0.1 mg Q5M PRN IV 11/26/17 11:00 12/26/17 10:59 Hydromorphone HCl (Dilaudid Manager Animal) 25 mg PRN PRN IV 11/26/17 11:00 12/10/17 10:59 11/27/17 17:28 25 MG Sodium Chloride 1,000 ml @ 15 mls/hr Q24H IV 11/26/17 10:59 12/26/17 10:58 Pantoprazole Sodium 40 mg/ Syringe 10 ml @ 5 mls/min DAILY@11 IV 11/27/17 11:00 11/30/17 10:59 11/27/17 12:32 5 MLS/MIN Dextrose/Sodium Chloride 1,000 ml @ 125 mls/hr Q8H IV 11/27/17 08:45 12/27/17 08:44 11/28/17 09:03 125 MLS/HR Metoprolol Tartrate (Lopressor Iv) 5 mg Q8H IV. 11/27/17 14:00 12/26/17 21:59 11/28/17 05:55 5 MG Ioversol (Optiray 320) 100 ml UD PRN IV 11/27/17 10:30 12/01/17 10:29
[2017-11-28] MEDS: LUBIPROSTONE 8 MCG CAP PO SCH ×2 (10:20→22:06)
[2017-11-28] MEDS: ARIPIprazole TAB 15 MG TAB PO SCH (10:20)
--- NOTE | 2017-11-28 10:33 | Surgery Progress Note ---
Surgery Progress Note Date of Service Nov 28, 2017. Subjective Post OP Day: 2 pt is still feels nausea, vomiting some clear fluid, not pass gas yet, pt denies fever, Objective Vital Signs: Date Time Temp Pulse Resp B/P (MAP) Pulse Ox O2 Delivery O2 Flow Rate FiO2 11/28/17 08:20 36.6 85 14 136/70 (92) 92 Nasal Cannula 1.5 11/28/17 08:00 89 Room Air 11/28/17 07:04 73 16 93 Nasal Cannula 2.0 11/28/17 06:00 36.6 103 18 159/95 (116) 91 Room Air 11/28/17 05:55 96 130/76 11/28/17 05:45 100 17 130/76 (94) 92 11/28/17 05:30 91 13 122/72 (89) 92 11/28/17 05:15 93 16 129/77 (94) 93 11/28/17 05:01 97 28 154/85 (108) 93 11/28/17 05:00 108 157/93 11/28/17 05:00 94 17 96 11/28/17 04:45 88 16 133/75 (94) 95 11/28/17 04:30 90 18 123/76 (92) 95 11/28/17 04:26 102 14 134/82 (99) 95 11/28/17 04:15 100 9 91 11/28/17 04:15 100 9 91 11/28/17 04:00 101 17 92 11/28/17 04:00 101 17 92 11/28/17 03:49 107 24 159/95 (116) 93 11/28/17 03:45 102 12 91 11/28/17 03:30 101 14 91 11/28/17 03:30 91 Room Air 11/28/17 03:15 103 13 91 11/28/17 03:00 109 14 91 11/28/17 02:45 98 13 90 11/28/17 02:30 98 10 90 11/28/17 02:15 95 16 92 11/28/17 02:00 94 11 92 11/28/17 01:45 97 11 92 11/28/17 01:30 91 14 93 11/28/17 01:15 95 17 91 11/28/17 01:00 96 13 92 11/28/17 00:45 96 9 92 11/28/17 00:30 93 10 92 11/28/17 00:15 94 14 89 11/28/17 00:00 95 15 88 11/27/17 23:30 91 Room Air 11/27/17 23:26 37.1 78 18 143/78 (99) 89 Room Air 11/27/17 22:42 103 112/74 11/27/17 19:30 91 Room Air 11/27/17 19:05 36.9 100 17 128/77 (94) 90 Room Air 11/27/17 19:02 104 14 90 Room Air 11/27/17 16:26 Nasal Cannula 2.0 11/27/17 15:53 36.8 89 19 110/70 (83) 93 Room Air 11/27/17 14:36 101 110/70 11/27/17 13:00 36.7 90 16 105/98 (100) 92 Nasal Cannula 2.0 11/27/17 12:58 92 Nasal Cannula 2.0 11/27/17 12:20 122 General Appearance: WD/WN, + mild distress Head: normocephalic Neck: supple, no JVD Respiratory/Chest: chest non-tender, lungs clear Cardiovascular: regular rate, rhythm, no edema, no gallop, no JVD Abdomen: normal bowel sounds, non tender, soft, + distended Incision(s): clean, dry, intact Extremities: normal range of motion, non-tender, normal inspection Laboratory Results: Results Past 24 Hours Test 11/27/17 20:11 11/28/17 05:35 Range/Units Sodium Level 139 140 136-145 mmol/L Potassium Level 4.5 3.9 3.5-5.1 mmol/L Chloride Level 112 113 98-107 mmol/L Carbon Dioxide Level 17 22 21-32 mmol/L Anion Gap 10.0 5.0 3-11 mmol/L Blood Urea Nitrogen 23 20 7-18 mg/dl Creatinine 0.80 0.62 0.60-1.20 mg/dl Est Creatinine Clear Calc Drug Dose 68.5 88.4 ml/min Estimated GFR () 94.9 116.0 Estimated GFR (Non- 81.8 100.1 BUN/Creatinine Ratio 29.3 31.5 10-20 Random Glucose 134 119 70-99 mg/dl Calcium Level 8.2 8.0 8.5-10.1 mg/dl White Blood Count 15.12 4.8-10.8 K/uL Red Blood Count 3.36 4.2-5.4 M/uL Hemoglobin 9.1 12.0-16.0 g/dL Hematocrit 29.5 37-47 % Mean Corpuscular Volume 87.8 80-100 fL Mean Corpuscular Hemoglobin 27.1 25-34 pg Mean Corpuscular Hemoglobin Concent 30.8 32-36 g/dl Platelet Count 363 130-400 K/uL Mean Platelet Volume 9.5 7.4-10.4 fL Neutrophils (%) (Auto) 81.7 % Lymphocytes (%) (Auto) 8.5 % Monocytes (%) (Auto) 9.3 % Eosinophils (%) (Auto) 0.1 % Basophils (%) (Auto) 0.1 % Neutrophils # (Auto) 12.34 1.4-6.5 K/uL Lymphocytes # (Auto) 1.29 1.2-3.4 K/uL Monocytes # (Auto) 1.41 0.11-0.59 K/uL Eosinophils # (Auto) 0.01 0-0.5 K/uL Basophils # (Auto) 0.02 0-0.2 K/uL RDW Standard Deviation 48.5 36.4-46.3 fL RDW Coefficient of Variation 15.1 11.5-14.5 % Immature Granulocyte % (Auto) 0.3 % Immature Granulocyte # (Auto) 0.05 0.00-0.02 K/uL Magnesium Level 2.4 1.8-2.4 mg/dl Total Creatine Kinase 198 26-192 U/L Creatine Kinase MB 1.9 0.5-3.6 ng/ml Creatine Kinase MB Ratio 1.0 0-3.0 Troponin I < 0.015 0-0.045 ng/ml Assessment & Plan continue treament will F/U rader main IV fluid to D5+ 0.5 NS + 30 MEQ KCL/1000ml at 100ml/h repeat labs in am correct low k, 28/11/2017 I put NG tube in, some green fluid came out, base on high WBC [id number] start cipro + flagyl down IV fluid to 100ml/h repeat labs in am, will F/W continue treament will F/U rader main IV fluid to D5+ 0.5 NS + 30 MEQ KCL/1000ml at 100ml/h repeat labs in am correct low k,
[2017-11-28] MEDS: PANTOprazole INJ 40 MG in SYRINGE 0 ML IV SCH (11:28)
[2017-11-28] MEDS: CIPROFLOXACIN / D5W 400 MG in PREMIXED IN D5W 200 ML IV SCH (12:36)
[2017-11-28] MEDS: METRONIDAZOLE / NSS 500 MG in PREMIXED NSS 100 ML IV SCH ×2 (12:36→20:18)
[2017-11-28] MEDS: HYDROmorphone HCL 0.5MG/ML 50 ML CASSETTE IV PRN (14:15)
[2017-11-28] MEDS: MONTELUKAST SOD 10 MG TAB PO SCH (22:06)
[2017-11-29] VITALS (10 sets, daily range): BP systolic 103–133; BP diastolic 53–84; PULSE 74–93; TEMP 36.5–37.1; O2SAT 92–100
[2017-11-29] MEDS: CIPROFLOXACIN / D5W 400 MG in PREMIXED IN D5W 200 ML IV SCH ×3 (00:10→23:34)
[2017-11-29] MEDS: CHECK FENTANYL PATCH PLACEMENT SCH ×4 (00:10→23:38)
[2017-11-29] MEDS: METOCLOPRAMIDE HCL INJ 5 MG/ML 2 ML VIAL IV SCH ×5 (00:15→23:34)
--- NOTE | 2017-11-29 00:31 | Surgery Progress Note ---
Surgery Progress Note Date of Service Nov 29, 2017. Subjective + feeling well pt pulled out NG tube after 4 hours NG tube insertion, suction out about 500ml, now pt said she is doing fine, no abdominal pain, no vomiting, Objective Vital Signs: Date Time Temp Pulse Resp B/P (MAP) Pulse Ox O2 Delivery O2 Flow Rate FiO2 11/29/17 00:25 37.1 89 22 114/79 (91) 96 Nasal Cannula 2.0 11/28/17 22:07 95 11/28/17 20:00 Nasal Cannula 2.0 11/28/17 19:22 88 16 96 Room Air 11/28/17 18:51 37.2 91 13 130/77 (94) 95 Room Air 11/28/17 16:17 94 Nasal Cannula 2.0 11/28/17 15:10 36.5 90 17 128/82 (97) 94 Nasal Cannula 2.0 11/28/17 14:10 94 130/71 11/28/17 12:00 89 Room Air 11/28/17 11:26 37.2 98 18 123/74 (90) 90 11/28/17 08:20 36.6 85 14 136/70 (92) 92 Nasal Cannula 1.5 11/28/17 08:00 89 Room Air 11/28/17 07:04 73 16 93 Nasal Cannula 2.0 11/28/17 06:00 36.6 103 18 159/95 (116) 91 Room Air 11/28/17 05:55 96 130/76 11/28/17 05:45 100 17 130/76 (94) 92 11/28/17 05:30 91 13 122/72 (89) 92 11/28/17 05:15 93 16 129/77 (94) 93 11/28/17 05:01 97 28 154/85 (108) 93 11/28/17 05:00 108 157/93 11/28/17 05:00 94 17 96 11/28/17 04:45 88 16 133/75 (94) 95 11/28/17 04:30 90 18 123/76 (92) 95 11/28/17 04:26 102 14 134/82 (99) 95 11/28/17 04:15 100 9 91 11/28/17 04:15 100 9 91 11/28/17 04:00 101 17 92 11/28/17 04:00 101 17 92 11/28/17 03:49 107 24 159/95 (116) 93 11/28/17 03:45 102 12 91 11/28/17 03:30 101 14 91 11/28/17 03:30 91 Room Air 11/28/17 03:15 103 13 91 11/28/17 03:00 109 14 91 11/28/17 02:45 98 13 90 11/28/17 02:30 98 10 90 11/28/17 02:15 95 16 92 11/28/17 02:00 94 11 92 11/28/17 01:45 97 11 92 11/28/17 01:30 91 14 93 11/28/17 01:15 95 17 91 11/28/17 01:00 96 13 92 11/28/17 00:45 96 9 92 11/28/17 00:30 93 10 92 General Appearance: WD/WN, no apparent distress Head: normocephalic Neck: supple, no JVD Respiratory/Chest: chest non-tender, lungs clear Cardiovascular: regular rate, rhythm, no edema Abdomen: normal bowel sounds, non tender, non distended, soft, no organomegaly Incision(s): clean, dry, intact Extremities: normal range of motion, non-tender, normal inspection Laboratory Results: Results Past 24 Hours Test 11/28/17 05:35 Range/Units White Blood Count 15.12 4.8-10.8 K/uL Red Blood Count 3.36 4.2-5.4 M/uL Hemoglobin 9.1 12.0-16.0 g/dL Hematocrit 29.5 37-47 % Mean Corpuscular Volume 87.8 80-100 fL Mean Corpuscular Hemoglobin 27.1 25-34 pg Mean Corpuscular Hemoglobin Concent 30.8 32-36 g/dl Platelet Count 363 130-400 K/uL Mean Platelet Volume 9.5 7.4-10.4 fL Neutrophils (%) (Auto) 81.7 % Lymphocytes (%) (Auto) 8.5 % Monocytes (%) (Auto) 9.3 % Eosinophils (%) (Auto) 0.1 % Basophils (%) (Auto) 0.1 % Neutrophils # (Auto) 12.34 1.4-6.5 K/uL Lymphocytes # (Auto) 1.29 1.2-3.4 K/uL Monocytes # (Auto) 1.41 0.11-0.59 K/uL Eosinophils # (Auto) 0.01 0-0.5 K/uL Basophils # (Auto) 0.02 0-0.2 K/uL RDW Standard Deviation 48.5 36.4-46.3 fL RDW Coefficient of Variation 15.1 11.5-14.5 % Immature Granulocyte % (Auto) 0.3 % Immature Granulocyte # (Auto) 0.05 0.00-0.02 K/uL Sodium Level 140 136-145 mmol/L Potassium Level 3.9 3.5-5.1 mmol/L Chloride Level 113 98-107 mmol/L Carbon Dioxide Level 22 21-32 mmol/L Anion Gap 5.0 3-11 mmol/L Blood Urea Nitrogen 20 7-18 mg/dl Creatinine 0.62 0.60-1.20 mg/dl Est Creatinine Clear Calc Drug Dose 88.4 ml/min Estimated GFR () 116.0 Estimated GFR (Non- 100.1 BUN/Creatinine Ratio 31.5 10-20 Random Glucose 119 70-99 mg/dl Calcium Level 8.0 8.5-10.1 mg/dl Magnesium Level 2.4 1.8-2.4 mg/dl Total Creatine Kinase 198 26-192 U/L Creatine Kinase MB 1.9 0.5-3.6 ng/ml Creatine Kinase MB Ratio 1.0 0-3.0 Troponin I < 0.015 0-0.045 ng/ml Assessment & Plan continue treament will F/U rader main IV fluid to D5+ 0.5 NS + 30 MEQ KCL/1000ml at 100ml/h repeat labs in am correct low k, 28/11/2017 I put NG tube in, some green fluid came out, base on high WBC [id number] start cipro + flagyl down IV fluid to 100ml/h repeat labs in am, will F/W 11/19/2017 continue treatment, will F/U continue treament will F/U rader main IV fluid to D5+ 0.5 NS + 30 MEQ KCL/1000ml at 100ml/h repeat labs in am correct low k, 28/11/2017 I put NG tube in, some green fluid came out, base on high WBC [id number] start cipro + flagyl down IV fluid to 100ml/h repeat labs in am, will F/W
[2017-11-29] MEDS: D5W AND NSS 1,000 ML IV SCH (04:04)
[2017-11-29] MEDS: METRONIDAZOLE / NSS 500 MG in PREMIXED NSS 100 ML IV SCH ×3 (04:05→20:25)
[2017-11-29] MEDS: HYDROmorphone HCL 0.5MG/ML 50 ML CASSETTE IV PRN (06:14)
[2017-11-29] MEDS: METOPROLOL TARTRATE 1 MG/ML VIAL IV. SCH ×3 (06:22→22:33)
[2017-11-29 06:24] LABS: BASO % 0.2 %; BASO ABS # 0.02 K/uL (0-0.2); EOS % 1.2 %; EOS ABS # 0.15 K/uL (0-0.5); HEMOGLOBIN 8.5 g/dL (12.0-16.0); IG# 0.03 K/uL (0.00-0.02); LYMPH % 16.8 %; LYMPH ABS # 2.05 K/uL (1.2-3.4); MEAN CELL VOLUME 87.5 fL (80-100); MEAN CORPUSCULAR HEMOGLOBIN 26.6 pg (25-34); MEAN CORPUSCULAR HGB CONC 30.4 g/dl (32-36); MEAN PLATELET VOLUME 9.5 fL (7.4-10.4); MONO % 7.2 %; MONO ABS # 0.88 K/uL (0.11-0.59); NEUT % 74.4 %; NEUT ABS # 9.06 K/uL (1.4-6.5); PLATELET COUNT 310 K/uL (130-400); RED CELL DISTRIBUTION WIDTH CV 14.8 % (11.5-14.5); RED CELL DISTRIBUTION WIDTH SD 47.5 fL (36.4-46.3); WHITE BLOOD COUNT 12.19 K/uL (4.8-10.8)
[2017-11-29 06:54] LABS: CALCIUM 7.6 mg/dl (8.5-10.1); CREATININE 0.43 mg/dl (0.60-1.20); POTASSIUM 3.4 mmol/L (3.5-5.1)
[2017-11-29] MEDS: FORMOTEROL FUMA NEBULIZER SOLN 20 MCG/2 ML VIAL INH SCH ×2 (07:10→19:07)
[2017-11-29] MEDS: CETIRIZINE HCL 10 MG TAB PO SCH (08:00)
[2017-11-29] MEDS: MULTIVITAMIN TAB PO SCH (08:00)
[2017-11-29] MEDS: CEROVITE ADV FORMULA TAB PO SCH (08:00)
[2017-11-29] MEDS: CALCIUM 600MG + VIT D 400 IU TAB PO SCH (08:00)
[2017-11-29] MEDS: SODIUM CHLORIDE 0.9% 1000ML 1,000 ML IV SCH (08:00)
[2017-11-29] MEDS: BACLOFEN 10 MG TAB PO SCH ×3 (08:54→20:26)
[2017-11-29] MEDS: GABAPENTIN 300 MG CAP PO SCH ×3 (08:54→20:27)
[2017-11-29] MEDS: ARIPIprazole TAB 15 MG TAB PO SCH (08:55)
[2017-11-29] MEDS: LUBIPROSTONE 8 MCG CAP PO SCH ×2 (08:55→20:27)
[2017-11-29] MEDS: LORAZEPAM 1 MG TAB PO PRN (09:05)
--- NOTE | 2017-11-29 10:17 | Surgery Progress Note ---
Surgery Progress Note Date of Service Nov 29, 2017. Subjective + feeling well pt is doing better, passed gas and BM, pt denies nausea, no vomiting, Objective Vital Signs: Date Time Temp Pulse Resp B/P (MAP) Pulse Ox O2 Delivery O2 Flow Rate FiO2 11/29/17 08:00 Nasal Cannula 2.0 11/29/17 07:15 37.0 74 14 120/53 (75) 100 Nasal Cannula 2.0 11/29/17 07:14 77 16 98 Nasal Cannula 3.8 11/29/17 06:22 96 126/87 11/29/17 04:00 Nasal Cannula 2.0 11/29/17 03:51 36.5 93 17 126/84 (98) 99 Nasal Cannula 3.0 11/29/17 00:25 37.1 89 22 114/79 (91) 96 Nasal Cannula 2.0 11/29/17 00:00 Nasal Cannula 2.0 11/28/17 22:07 95 11/28/17 20:00 Nasal Cannula 2.0 11/28/17 19:22 88 16 96 Room Air 11/28/17 18:51 37.2 91 13 130/77 (94) 95 Room Air 11/28/17 16:17 94 Nasal Cannula 2.0 11/28/17 15:10 36.5 90 17 128/82 (97) 94 Nasal Cannula 2.0 11/28/17 14:10 94 130/71 11/28/17 12:00 89 Room Air 11/28/17 11:26 37.2 98 18 123/74 (90) 90 General Appearance: WD/WN, no apparent distress Head: normocephalic Neck: supple, no JVD Respiratory/Chest: chest non-tender, lungs clear Cardiovascular: regular rate, rhythm, no edema, no gallop, no JVD Abdomen: normal bowel sounds, non tender, non distended, soft, no organomegaly Incision(s): clean, dry, intact Extremities: normal range of motion, non-tender, normal inspection Laboratory Results: Results Past 24 Hours Test 11/29/17 05:43 Range/Units White Blood Count 12.19 4.8-10.8 K/uL Red Blood Count 3.20 4.2-5.4 M/uL Hemoglobin 8.5 12.0-16.0 g/dL Hematocrit 28.0 37-47 % Mean Corpuscular Volume 87.5 80-100 fL Mean Corpuscular Hemoglobin 26.6 25-34 pg Mean Corpuscular Hemoglobin Concent 30.4 32-36 g/dl Platelet Count 310 130-400 K/uL Mean Platelet Volume 9.5 7.4-10.4 fL Neutrophils (%) (Auto) 74.4 % Lymphocytes (%) (Auto) 16.8 % Monocytes (%) (Auto) 7.2 % Eosinophils (%) (Auto) 1.2 % Basophils (%) (Auto) 0.2 % Neutrophils # (Auto) 9.06 1.4-6.5 K/uL Lymphocytes # (Auto) 2.05 1.2-3.4 K/uL Monocytes # (Auto) 0.88 0.11-0.59 K/uL Eosinophils # (Auto) 0.15 0-0.5 K/uL Basophils # (Auto) 0.02 0-0.2 K/uL RDW Standard Deviation 47.5 36.4-46.3 fL RDW Coefficient of Variation 14.8 11.5-14.5 % Immature Granulocyte % (Auto) 0.2 % Immature Granulocyte # (Auto) 0.03 0.00-0.02 K/uL Hypochromasia PRESENT Sodium Level 136 136-145 mmol/L Potassium Level 3.4 3.5-5.1 mmol/L Chloride Level 108 98-107 mmol/L Carbon Dioxide Level 21 21-32 mmol/L Anion Gap 7.0 3-11 mmol/L Blood Urea Nitrogen 7 7-18 mg/dl Creatinine 0.43 0.60-1.20 mg/dl Est Creatinine Clear Calc Drug Dose 127.5 ml/min Estimated GFR () 130.9 Estimated GFR (Non- 112.9 BUN/Creatinine Ratio 16.6 10-20 Random Glucose 98 70-99 mg/dl Calcium Level 7.6 8.5-10.1 mg/dl Magnesium Level 1.9 1.8-2.4 mg/dl Assessment & Plan continue treament will F/U rader main IV fluid to D5+ 0.5 NS + 30 MEQ KCL/1000ml at 100ml/h repeat labs in am correct low k, 28/11/2017 I put NG tube in, some green fluid came out, base on high WBC [id number] start cipro + flagyl down IV fluid to 100ml/h repeat labs in am, will F/W 11/29/2017 continue treatment, will F/U 11/29/2017 continue treatment, will F/U will F/U continue treament will F/U rader main IV fluid to D5+ 0.5 NS + 30 MEQ KCL/1000ml at 100ml/h repeat labs in am correct low k, 28/11/2017 I put NG tube in, some green fluid came out, base on high WBC [id number] start cipro + flagyl down IV fluid to 100ml/h repeat labs in am, will F/W 11/19/2017 continue treatment, will F/U
[2017-11-29] MEDS: PANTOprazole INJ 40 MG in SYRINGE 0 ML IV SCH (11:10)
[2017-11-29] MEDS: POTASSIUM CHLR 10 MEQ / WTR 10 MEQ in PREMIXED WATER 100 ML IV SCH ×4 (13:12→16:33)
[2017-11-29] MEDS: D5NSS + 20MEQ KCL 1,000 ML IV SCH (13:12)
[2017-11-29 18:05] LABS: CREATININE 0.41 mg/dl (0.60-1.20); POTASSIUM 3.8 mmol/L (3.5-5.1)
[2017-11-29] MEDS ORDERED: NURSING VERBAL MED ORDER ONE (19:45)
[2017-11-29] MEDS ORDERED: ALUMINUM/MAGNESIUM/SIMETH (MAALOX MAX) 30 ML UDC PO PRN (20:00)
[2017-11-29] MEDS: MONTELUKAST SOD 10 MG TAB PO SCH (20:28)
--- NOTE | 2017-11-29 20:34 | Progress Note ---
Medicine Progress Note Date & Time of Visit: Nov 29, 2017 at 20:33. Subjective delayed entry date of service noted above patient seen resting in bed, comfortable not in distress tolerating ice chips, meds pain improving but still significant no chest pain ,dyspnea, palpitations, dizziness denies other symptoms Objective Last 8 Hrs Date Time Temp Pulse Resp B/P (MAP) Pulse Ox O2 Delivery O2 Flow Rate FiO2 11/29/17 19:09 86 16 99 Nasal Cannula 2.0 11/29/17 16:00 Nasal Cannula 2.0 11/29/17 15:25 37.1 88 24 103/74 (84) 92 Room Air 11/29/17 13:17 91 126/78 Physical Exam: General- oriented x 3, not in distress, speaks in sentences with no effort Lungs- clear breath sounds bilaterally Heart- normal rate, regular rhythm, no murmurs Abdomen- hypoactive bowel sounds, soft, dressing in place- no bleeding, discharge Extremities- no pretibial edema, no calf tenderness Neuro- alert, oriented x 3; no gross focal deficits Skin- warm & dry Laboratory Results: Last 24 Hours Test 11/29/17 05:43 11/29/17 17:25 White Blood Count 12.19 K/uL Red Blood Count 3.20 M/uL Hemoglobin 8.5 g/dL Hematocrit 28.0 % Mean Corpuscular Volume 87.5 fL Mean Corpuscular Hemoglobin 26.6 pg Mean Corpuscular Hemoglobin Concent 30.4 g/dl Platelet Count 310 K/uL Mean Platelet Volume 9.5 fL Neutrophils (%) (Auto) 74.4 % Lymphocytes (%) (Auto) 16.8 % Monocytes (%) (Auto) 7.2 % Eosinophils (%) (Auto) 1.2 % Basophils (%) (Auto) 0.2 % Neutrophils # (Auto) 9.06 K/uL Lymphocytes # (Auto) 2.05 K/uL Monocytes # (Auto) 0.88 K/uL Eosinophils # (Auto) 0.15 K/uL Basophils # (Auto) 0.02 K/uL RDW Standard Deviation 47.5 fL RDW Coefficient of Variation 14.8 % Immature Granulocyte % (Auto) 0.2 % Immature Granulocyte # (Auto) 0.03 K/uL Hypochromasia PRESENT Sodium Level 136 mmol/L 133 mmol/L Potassium Level 3.4 mmol/L 3.8 mmol/L Chloride Level 108 mmol/L 104 mmol/L Carbon Dioxide Level 21 mmol/L 23 mmol/L Anion Gap 7.0 mmol/L 6.0 mmol/L Blood Urea Nitrogen 7 mg/dl 4 mg/dl Creatinine 0.43 mg/dl 0.41 mg/dl Est Creatinine Clear Calc Drug Dose 127.5 ml/min 143.8 ml/min Estimated GFR () 130.9 132.9 Estimated GFR (Non- 112.9 114.7 BUN/Creatinine Ratio 16.6 9.9 Random Glucose 98 mg/dl 88 mg/dl Calcium Level 7.6 mg/dl 8.0 mg/dl Magnesium Level 1.9 mg/dl Assessment & Plan SMALL BOWEL OBSTRUCTION - 11/26/17 s/p Exploratory Laparotomy Release of Small Bowel Obstruction, Small Bowel Decompression, Enterolysis, esophagogastroduodenoscopy - post op day 4 would like to maintain [employer] Dilaudid pump for now CT chest: distended stomach and esophagus- fluid filled - off NG tube back to ice chips and sips, meds--> tolerating well monitor SINUS TACHYCARDIA - likely from not being able to take usual Metoprolol also with stress, pain, possible dehydration - HR improved continue Metoprolol 5 mg IV q8h for now IV D5 + NSS monitor K and Mg - CT angio: no PE RIGHT THIGH CELLULITIS hx of recurrent infection started on iv vanco ortho consulted cx no growth, antibiotics discontinued Hx of PSVT s/p ablation on Toprol xl usually COPD stable Chronic pain on fentanyl patch Dilaudid pump DVT PROPHYLAXIS discuss when Gen Surg if Heparin/Lovenox may be resumed SCDs, ambulation DISPOSITION pending ff up with PCP Dr. Jerome Murillo ff up with Gen Surg Current Inpatient Medications: Current Inpatient Medications Medications (Trade) Dose Ordered Sig/Jennifer Route Start Time Stop Time Status Last Admin Dose Admin Ondansetron HCl (Zofran Inj) 4 mg Q6H PRN IV 11/15/17 09:45 12/15/17 09:44 11/28/17 03:04 4 MG Albuterol (Ventolin Hfa Inhaler) 1 puffs Q4 PRN INH 11/15/17 09:45 12/15/17 09:44 Aripiprazole (Abilify Tab) 30 mg QAM PO 11/16/17 09:00 12/16/17 08:59 11/29/17 08:55 30 MG Baclofen (Lioresal Tab) 10 mg TID PO 11/15/17 14:00 12/15/17 13:59 Future hold 11/29/17 20:26 10 MG Cetirizine HCl (zyrTEC TAB) 10 mg QAM PO 11/16/17 09:00 12/16/17 08:59 11/25/17 09:13 10 MG Cyclobenzaprine HCl (Flexeril Tab) 10 mg TID PRN PO 11/15/17 09:45 12/15/17 09:44 Future hold 11/25/17 21:57 10 MG Gabapentin (Neurontin Cap) 300 mg TID PO 11/15/17 14:00 12/15/17 13:59 Future hold 11/29/17 20:27 300 MG Lorazepam (Ativan Tab) 1 mg BID PRN PO 11/15/17 09:45 12/15/17 09:44 11/29/17 09:05 1 MG Montelukast Sodium (Singulair Tab) 10 mg HS PO 11/15/17 21:00 12/15/17 20:59 Future hold 11/29/17 20:28 10 MG Ondansetron HCl (Zofran Tab) 8 mg Q6H PRN PO 11/15/17 09:45 12/15/17 09:44 11/25/17 09:42 8 MG Lubiprostone (Amitiza) 24 mcg BID PO 11/15/17 21:00 12/15/17 20:59 Future hold 11/29/17 20:27 24 MCG Metoclopramide HCl (Reglan Inj) 5 mg Q6 IV 11/15/17 14:00 12/15/17 13:59 11/29/17 17:14 5 MG Formoterol Fumarate (Perforomist 20MCG/2ML Neb Soln) 20 mcg BID INH 11/15/17 21:00 12/15/17 20:59 11/29/17 19:07 20 MCG Lamotrigine (Lamictal Tab) 125 mg BID PO 11/15/17 21:00 12/15/17 20:59 Future hold 11/29/17 20:29 125 MG Buspirone HCl (Buspar Tab) 10 mg BID PO 11/15/17 21:00 12/15/17 20:59 Future hold 11/29/17 20:30 10 MG Miscellaneous (Fentanyl Patch Remove & Waste) 1 ea Q3D@0859 N/A 11/15/17 13:14 12/15/17 13:13 11/27/17 08:59 1 EA Miscellaneous Information (Check Fentanyl Patch Placement) 1 ea QS N/A 11/15/17 16:00 12/15/17 15:59 11/29/17 15:10 1 EA Acetaminophen 650 mg/Empty Bag 65 ml @ 260 mls/hr Q6H PRN IV 11/20/17 00:30 12/20/17 00:29 11/27/17 12:50 260 MLS/HR Zolpidem Tartrate (Ambien Tab) 5 mg HS PRN PO 11/21/17 19:30 12/21/17 19:29 11/27/17 23:32 5 MG Menthol (Nice Brown) 1 brown Q2H PRN PO 11/21/17 19:45 12/21/17 19:44 Hydromorphone HCl (Dilaudid Inj) 0.5 mg Q6H PRN IV 11/24/17 10:45 12/03/17 10:44 11/26/17 01:13 0.5 MG Ioversol (Optiray 320) 100 ml UD PRN IV 11/26/17 01:15 11/30/17 01:14 Multivitamins (Multivitamin Tab) 1 tab QAM PO 11/26/17 09:00 12/26/17 08:59 Multivitamins/ Minerals (Multivitamin W/ Minerals Tab) 1 tab DAILY PO 11/26/17 09:00 12/26/17 08:59 Miscellaneous Information (Order Awaiting Action) 1 ea QS N/A 11/26/17 16:00 12/26/17 15:59 Calcium/Vitamin D (Caltrate Plus Tab) 1 tab DAILY PO 11/26/17 09:00 12/26/17 08:59 Naloxone HCl (Narcan Inj) 0.1 mg Q5M PRN IV 11/26/17 11:00 12/26/17 10:59 Hydromorphone HCl (Dilaudid Children[employer] Author) 25 mg PRN PRN IV 11/26/17 11:00 12/10/17 10:59 11/29/17 06:14 25 MG Sodium Chloride 1,000 ml @ 15 mls/hr Q24H IV 11/26/17 10:59 12/26/17 10:58 Pantoprazole Sodium 40 mg/ Syringe 10 ml @ 5 mls/min DAILY@11 IV 11/27/17 11:00 11/30/17 10:59 11/29/17 11:10 5 MLS/MIN Metoprolol Tartrate (Lopressor Iv) 5 mg Q8H IV. 11/27/17 14:00 12/26/17 21:59 11/29/17 13:17 5 MG Ioversol (Optiray 320) 100 ml UD PRN IV 11/27/17 10:30 12/01/17 10:29 Ciprofloxacin/ Dextrose 400 mg/ Prmx 200 ml @ 100 mls/hr Q12H IV 11/28/17 12:00 11/30/17 11:59 11/29/17 11:11 100 MLS/HR Metronidazole 500 mg/Prmx 100 ml @ 100 mls/hr Q8H IV 11/28/17 12:00 11/30/17 11:59 11/29/17 20:25 100 MLS/HR Potassium Chloride/Dextrose/ Sod Cl 1,000 ml @ 100 mls/hr Q10H IV 11/29/17 13:00 12/29/17 12:59 11/29/17 13:12 100 MLS/HR Al Hydrox/Mg Hydrox/Simethicone (Maalox Max Susp) 15 ml Q4H PRN PO 11/29/17 20:00 12/15/17 09:44
[2017-11-29] MEDS ORDERED: NURSING DECISION MEDICATION ORDER SCH (23:15)
[2017-11-29] MEDS ORDERED: SODIUM CHLORIDE 0.65% NA SOLN 45 ML (OCEAN) PRN (23:30)
[2017-11-30] VITALS (14 sets, daily range): BP systolic 97–120; BP diastolic 60–76; PULSE 72–101; TEMP 36.7–37.5; O2SAT 93–98
[2017-11-30] MEDS: METRONIDAZOLE / NSS 500 MG in PREMIXED NSS 100 ML IV SCH (04:01)
[2017-11-30] MEDS: METOCLOPRAMIDE HCL INJ 5 MG/ML 2 ML VIAL IV SCH ×4 (05:51→23:52)
[2017-11-30] MEDS: HYDROmorphone HCL 0.5MG/ML 50 ML CASSETTE IV PRN (05:56)
[2017-11-30] MEDS: METOPROLOL TARTRATE 1 MG/ML VIAL IV. SCH ×4 (06:03→22:16)
[2017-11-30 06:40] LABS: BASO % 0.4 %; BASO ABS # 0.03 K/uL (0-0.2); EOS % 1.2 %; HEMOGLOBIN 9.4 g/dL (12.0-16.0); IG# 0.04 K/uL (0.00-0.02); LYMPH % 18.3 %; LYMPH ABS # 1.52 K/uL (1.2-3.4); MEAN CELL VOLUME 84.5 fL (80-100); MEAN CORPUSCULAR HEMOGLOBIN 25.6 pg (25-34); MEAN CORPUSCULAR HGB CONC 30.3 g/dl (32-36); MEAN PLATELET VOLUME 9.3 fL (7.4-10.4); MONO % 11.7 %; MONO ABS # 0.97 K/uL (0.11-0.59); NEUT % 67.9 %; NEUT ABS # 5.64 K/uL (1.4-6.5); NUCLEATED RED BLOOD CELL ABS 0.02 K/uL (0-0); PLATELET COUNT 338 K/uL (130-400); RED CELL DISTRIBUTION WIDTH CV 14.3 % (11.5-14.5); RED CELL DISTRIBUTION WIDTH SD 44.7 fL (36.4-46.3)
[2017-11-30] MEDS: FORMOTEROL FUMA NEBULIZER SOLN 20 MCG/2 ML VIAL INH SCH ×2 (07:09→19:15)
[2017-11-30 07:15] LABS: CALCIUM 8.2 mg/dl (8.5-10.1); CREATININE 0.42 mg/dl (0.60-1.20); POTASSIUM 3.4 mmol/L (3.5-5.1)
[2017-11-30] MEDS: D5NSS + 20MEQ KCL 1,000 ML IV SCH ×3 (08:51→20:48)
[2017-11-30] MEDS: FENTANYL PATCH REMOVE & WASTE SCH (08:59)
[2017-11-30] MEDS: CHECK FENTANYL PATCH PLACEMENT SCH ×3 (09:00→23:53)
[2017-11-30] MEDS: MULTIVITAMIN TAB PO SCH (09:00)
[2017-11-30] MEDS: POTASSIUM CHLR 10 MEQ / WTR 10 MEQ in PREMIXED WATER 100 ML IV SCH ×4 (09:34→15:01)
[2017-11-30] MEDS: CALCIUM 600MG + VIT D 400 IU TAB PO SCH (09:37)
[2017-11-30] MEDS: LUBIPROSTONE 8 MCG CAP PO SCH ×2 (09:37→20:46)
[2017-11-30] MEDS: CEROVITE ADV FORMULA TAB PO SCH (09:38)
[2017-11-30] MEDS: ARIPIprazole TAB 15 MG TAB PO SCH (09:40)
[2017-11-30] MEDS: CETIRIZINE HCL 10 MG TAB PO SCH (09:40)
[2017-11-30] MEDS: GABAPENTIN 300 MG CAP PO SCH ×3 (09:40→20:46)
[2017-11-30] MEDS: BACLOFEN 10 MG TAB PO SCH ×3 (09:40→20:43)
[2017-11-30] MEDS: SODIUM CHLORIDE 0.9% 1000ML 1,000 ML IV SCH (09:53)
--- NOTE | 2017-11-30 10:20 | Surgery Progress Note ---
Surgery Progress Note Date of Service Nov 30, 2017. Subjective Post OP Day: 4 not much flatus today but getting hungry, pain control better Objective Vital Signs: Date Time Temp Pulse Resp B/P (MAP) Pulse Ox O2 Delivery O2 Flow Rate FiO2 11/30/17 08:01 37.1 88 15 97/60 (72) 94 Nasal Cannula 1.0 11/30/17 07:12 87 14 94 Nasal Cannula 1.0 11/30/17 06:03 98 Nasal Cannula 1.0 11/30/17 06:03 91 110/69 11/30/17 04:00 93 Room Air 11/30/17 02:31 37.5 101 19 118/73 (88) 95 Room Air 11/30/17 00:00 95 Nasal Cannula 2.0 11/29/17 23:44 37.0 84 17 133/57 (82) 96 Nasal Cannula 0.5 11/29/17 22:33 101 105/74 11/29/17 20:46 36.6 88 14 130/73 (92) 96 Room Air 11/29/17 20:00 95 Nasal Cannula 2.0 11/29/17 19:09 86 16 99 Nasal Cannula 2.0 11/29/17 16:00 Nasal Cannula 2.0 11/29/17 15:25 37.1 88 24 103/74 (84) 92 Room Air 11/29/17 13:17 91 126/78 11/29/17 12:00 Nasal Cannula 2.0 11/29/17 11:46 36.7 89 20 121/74 (90) 98 Nasal Cannula 2.0 Physical Exam: KENROY drainage (60 cc), urine output (2800) Abdomen: non distended, soft Incision(s): clean, dry Laboratory Results: Results Past 24 Hours Test 11/29/17 17:25 11/30/17 05:52 Range/Units Sodium Level 133 136 136-145 mmol/L Potassium Level 3.8 3.4 3.5-5.1 mmol/L Chloride Level 104 105 98-107 mmol/L Carbon Dioxide Level 23 24 21-32 mmol/L Anion Gap 6.0 7.0 3-11 mmol/L Blood Urea Nitrogen 4 2 7-18 mg/dl Creatinine 0.41 0.42 0.60-1.20 mg/dl Est Creatinine Clear Calc Drug Dose 143.8 135.8 ml/min Estimated GFR () 132.9 131.9 Estimated GFR (Non- 114.7 113.8 BUN/Creatinine Ratio 9.9 4.7 10-20 Random Glucose 88 102 70-99 mg/dl Calcium Level 8.0 8.2 8.5-10.1 mg/dl White Blood Count 8.30 4.8-10.8 K/uL Red Blood Count 3.67 4.2-5.4 M/uL Hemoglobin 9.4 12.0-16.0 g/dL Hematocrit 31.0 37-47 % Mean Corpuscular Volume 84.5 80-100 fL Mean Corpuscular Hemoglobin 25.6 25-34 pg Mean Corpuscular Hemoglobin Concent 30.3 32-36 g/dl Platelet Count 338 130-400 K/uL Mean Platelet Volume 9.3 7.4-10.4 fL Neutrophils (%) (Auto) 67.9 % Lymphocytes (%) (Auto) 18.3 % Monocytes (%) (Auto) 11.7 % Eosinophils (%) (Auto) 1.2 % Basophils (%) (Auto) 0.4 % Neutrophils # (Auto) 5.64 1.4-6.5 K/uL Lymphocytes # (Auto) 1.52 1.2-3.4 K/uL Monocytes # (Auto) 0.97 0.11-0.59 K/uL Eosinophils # (Auto) 0.10 0-0.5 K/uL Basophils # (Auto) 0.03 0-0.2 K/uL RDW Standard Deviation 44.7 36.4-46.3 fL RDW Coefficient of Variation 14.3 11.5-14.5 % Immature Granulocyte % (Auto) 0.5 % Immature Granulocyte # (Auto) 0.04 0.00-0.02 K/uL Nucleated RBC Absolute Count (auto) 0.02 0-0 K/uL Nucleated Red Blood Cells % 0.2 % Magnesium Level 2.0 1.8-2.4 mg/dl Assessment & Plan Exploratory Laparotomy Release of Small Bowel Obstruction, Small Bowel Decompression, Enterolysis, esophagogastroduodenoscopy will start clears increase activity ok to d/c jessica
--- NOTE | 2017-11-30 13:31 | Progress Note ---
Medicine Progress Note Date & Time of Visit: Nov 30, 2017 at 13:31. Subjective resting in bed, more comfortable states abdominal pain continues to improve tolerating clears no BM today denies other symptoms Objective Last 8 Hrs Date Time Temp Pulse Resp B/P (MAP) Pulse Ox O2 Delivery O2 Flow Rate FiO2 11/30/17 12:00 93 Room Air 11/30/17 11:53 36.8 95 19 108/71 (83) 96 Nasal Cannula 1.0 11/30/17 08:01 37.1 88 15 97/60 (72) 94 Nasal Cannula 1.0 11/30/17 08:00 93 Room Air 11/30/17 07:12 87 14 94 Nasal Cannula 1.0 11/30/17 06:03 98 Nasal Cannula 1.0 11/30/17 06:03 91 110/69 Physical Exam: General- oriented x 3, not in distress, speaks in sentences with no effort Lungs- clear BS bilaterally, no rales, no wheezes Heart- normal rate, regular rhythm, no murmurs Abdomen- hypoactive bowel sounds, nondistended, soft, dressing in place- no bleeding, discharge Extremities- no pretibial edema, no calf tenderness Neuro- alert, oriented x 3; no gross focal deficits Skin- warm & dry Laboratory Results: Last 24 Hours Test 11/29/17 17:25 11/30/17 05:52 Sodium Level 133 mmol/L 136 mmol/L Potassium Level 3.8 mmol/L 3.4 mmol/L Chloride Level 104 mmol/L 105 mmol/L Carbon Dioxide Level 23 mmol/L 24 mmol/L Anion Gap 6.0 mmol/L 7.0 mmol/L Blood Urea Nitrogen 4 mg/dl 2 mg/dl Creatinine 0.41 mg/dl 0.42 mg/dl Est Creatinine Clear Calc Drug Dose 143.8 ml/min 135.8 ml/min Estimated GFR () 132.9 131.9 Estimated GFR (Non- 114.7 113.8 BUN/Creatinine Ratio 9.9 4.7 Random Glucose 88 mg/dl 102 mg/dl Calcium Level 8.0 mg/dl 8.2 mg/dl White Blood Count 8.30 K/uL Red Blood Count 3.67 M/uL Hemoglobin 9.4 g/dL Hematocrit 31.0 % Mean Corpuscular Volume 84.5 fL Mean Corpuscular Hemoglobin 25.6 pg Mean Corpuscular Hemoglobin Concent 30.3 g/dl Platelet Count 338 K/uL Mean Platelet Volume 9.3 fL Neutrophils (%) (Auto) 67.9 % Lymphocytes (%) (Auto) 18.3 % Monocytes (%) (Auto) 11.7 % Eosinophils (%) (Auto) 1.2 % Basophils (%) (Auto) 0.4 % Neutrophils # (Auto) 5.64 K/uL Lymphocytes # (Auto) 1.52 K/uL Monocytes # (Auto) 0.97 K/uL Eosinophils # (Auto) 0.10 K/uL Basophils # (Auto) 0.03 K/uL RDW Standard Deviation 44.7 fL RDW Coefficient of Variation 14.3 % Immature Granulocyte % (Auto) 0.5 % Immature Granulocyte # (Auto) 0.04 K/uL Nucleated RBC Absolute Count (auto) 0.02 K/uL Nucleated Red Blood Cells % 0.2 % Magnesium Level 2.0 mg/dl Assessment & Plan SMALL BOWEL OBSTRUCTION - 11/26/17 s/p Exploratory Laparotomy Release of Small Bowel Obstruction, Small Bowel Decompression, Enterolysis, esophagogastroduodenoscopy - post op day 5 abdominal pain further improving: 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 pump to Dilaudid 0.5mg IV q2h PRN (on chronic Fentanyl patch), wean off accordingly off NG tube, clear liquid diet started today, tolerating so far, advance diet further per Gen Surg SINUS TACHYCARDIA - developed post op day 0 - likely from not being able to take usual Metoprolol XL 25mg daily also with stress, pain, possible dehydration - transferred to Tele Metoprolol XL 25mg daily converted to Metoprolol 5mg IV q8h HR improved since continue Metoprolol 5 mg IV q8h for now, transition to usual Metoprolol XL 25mg po daily when PO intake is consistent, likely tomorrow IV D5 + NSS given monitor K and Mg - CT angio: no PE RIGHT THIGH CELLULITIS hx of recurrent infection started on iv vanco ortho consulted cx no growth, antibiotics discontinued Hx of PSVT s/p ablation on Toprol xl 25mg daily usually COPD stable Chronic pain on fentanyl patch DVT PROPHYLAXIS discuss with Gen Surg if Heparin/Lovenox may be resumed SCDs, ambulation DISPOSITION pending ff up with PCP Dr. Jerome Murillo ff up with Gen Surg Current Inpatient Medications: Current Inpatient Medications Medications (Trade) Dose Ordered Sig/Jennifer Route Start Time Stop Time Status Last Admin Dose Admin Ondansetron HCl (Zofran Inj) 4 mg Q6H PRN IV 11/15/17 09:45 12/15/17 09:44 11/28/17 03:04 4 MG Albuterol (Ventolin Hfa Inhaler) 1 puffs Q4 PRN INH 11/15/17 09:45 12/15/17 09:44 Aripiprazole (Abilify Tab) 30 mg QAM PO 11/16/17 09:00 12/16/17 08:59 11/30/17 09:40 30 MG Baclofen (Lioresal Tab) 10 mg TID PO 11/15/17 14:00 12/15/17 13:59 Future hold 11/30/17 13:04 10 MG Cetirizine HCl (zyrTEC TAB) 10 mg QAM PO 11/16/17 09:00 12/16/17 08:59 11/30/17 09:40 10 MG Cyclobenzaprine HCl (Flexeril Tab) 10 mg TID PRN PO 11/15/17 09:45 12/15/17 09:44 Future hold 11/25/17 21:57 10 MG Gabapentin (Neurontin Cap) 300 mg TID PO 11/15/17 14:00 12/15/17 13:59 Future hold 11/30/17 13:04 300 MG Lorazepam (Ativan Tab) 1 mg BID PRN PO 11/15/17 09:45 12/15/17 09:44 11/29/17 09:05 1 MG Montelukast Sodium (Singulair Tab) 10 mg HS PO 11/15/17 21:00 12/15/17 20:59 Future hold 11/29/17 20:28 10 MG Ondansetron HCl (Zofran Tab) 8 mg Q6H PRN PO 11/15/17 09:45 12/15/17 09:44 11/25/17 09:42 8 MG Lubiprostone (Amitiza) 24 mcg BID PO 11/15/17 21:00 12/15/17 20:59 Future hold 11/30/17 09:37 24 MCG Metoclopramide HCl (Reglan Inj) 5 mg Q6 IV 11/15/17 14:00 12/15/17 13:59 11/30/17 12:06 5 MG Formoterol Fumarate (Perforomist 20MCG/2ML Neb Soln) 20 mcg BID INH 11/15/17 21:00 12/15/17 20:59 11/30/17 07:09 20 MCG Lamotrigine (Lamictal Tab) 125 mg BID PO 11/15/17 21:00 12/15/17 20:59 Future hold 11/30/17 09:38 125 MG Buspirone HCl (Buspar Tab) 10 mg BID PO 11/15/17 21:00 12/15/17 20:59 Future hold 11/30/17 09:37 10 MG Miscellaneous (Fentanyl Patch Remove & Waste) 1 ea Q3D@0859 N/A 11/15/17 13:14 12/15/17 13:13 11/30/17 08:59 1 EA Miscellaneous Information (Check Fentanyl Patch Placement) 1 ea QS N/A 11/15/17 16:00 12/15/17 15:59 11/29/17 23:38 1 EA Acetaminophen 650 mg/Empty Bag 65 ml @ 260 mls/hr Q6H PRN IV 11/20/17 00:30 12/20/17 00:29 11/27/17 12:50 260 MLS/HR Zolpidem Tartrate (Ambien Tab) 5 mg HS PRN PO 11/21/17 19:30 12/21/17 19:29 11/27/17 23:32 5 MG Menthol (Nice Brown) 1 brown Q2H PRN PO 11/21/17 19:45 12/21/17 19:44 Hydromorphone HCl (Dilaudid Inj) 0.5 mg Q6H PRN IV 11/24/17 10:45 12/03/17 10:44 11/26/17 01:13 0.5 MG Multivitamins (Multivitamin Tab) 1 tab QAM PO 11/26/17 09:00 12/26/17 08:59 Multivitamins/ Minerals (Multivitamin W/ Minerals Tab) 1 tab DAILY PO 11/26/17 09:00 12/26/17 08:59 11/30/17 09:38 1 TAB Miscellaneous Information (Order Awaiting Action) 1 ea QS N/A 11/26/17 16:00 12/26/17 15:59 Calcium/Vitamin D (Caltrate Plus Tab) 1 tab DAILY PO 11/26/17 09:00 12/26/17 08:59 11/30/17 09:37 1 TAB Naloxone HCl (Narcan Inj) 0.1 mg Q5M PRN IV 11/26/17 11:00 12/26/17 10:59 Hydromorphone HCl (Dilaudid Hospice Nurse Practitioner) 25 mg PRN PRN IV 11/26/17 11:00 12/10/17 10:59 11/30/17 05:56 25 MG Sodium Chloride 1,000 ml @ 15 mls/hr Q24H IV 11/26/17 10:59 12/26/17 10:58 Metoprolol Tartrate (Lopressor Iv) 5 mg Q8H IV. 11/27/17 14:00 12/26/17 21:59 11/30/17 06:03 5 MG Ioversol (Optiray 320) 100 ml UD PRN IV 11/27/17 10:30 12/01/17 10:29 Potassium Chloride/Dextrose/ Sod Cl 1,000 ml @ 60 mls/hr [id number] IV 11/29/17 13:00 12/29/17 12:59 11/30/17 08:51 100 MLS/HR Al Hydrox/Mg Hydrox/Simethicone (Maalox Max Susp) 15 ml Q4H PRN PO 11/29/17 20:00 12/15/17 09:44 Sodium Chloride ([place] Nasal [place]) 1 sprays PRN PRN NA 11/29/17 23:30 12/29/17 23:29 11/30/17 01:42 1 SPRAYS Enteral Nutritional Formula (Boost Breeze Nutritional Drink) 1 box [id number] PO 11/30/17 17:00 12/30/17 16:59 Fentanyl (Duragesic Patch) 25 mcg Q72H TD 11/30/17 13:30 12/14/17 13:29 UNV Miscellaneous (Fentanyl Patch Remove & Waste) 1 ea Q3D N/A 12/03/17 13:30 01/02/18 13:29 UNV Miscellaneous Information (Check Fentanyl Patch Placement) 1 ea QS N/A 11/30/17 16:00 12/30/17 15:59 UNV
[2017-11-30] MEDS: FENTANYL 25 MCG/HR TDSY TD SCH (15:01)
[2017-11-30] MEDS: BOOST BREEZE NUTRITION DRINK 1 BOX PO SCH (16:21)
[2017-11-30] MEDS: HYDROmorphone INJ 0.5 MG/0.5 ML SYR IV PRN ×4 (16:21→23:55)
[2017-11-30] MEDS: MONTELUKAST SOD 10 MG TAB PO SCH (20:46)
[2017-11-30] MEDS: ACETAMINOPHEN IV 650 MG in EMPTY BAG 0 ML IV PRN (22:41)
[2017-12-01] VITALS (8 sets, daily range): BP systolic 112–141; BP diastolic 65–89; PULSE 77–96; TEMP 36.7–37.7; O2SAT 90–95
[2017-12-01] MEDS: HYDROmorphone INJ 0.5 MG/0.5 ML SYR IV PRN ×3 (02:17→05:17)
[2017-12-01] MEDS: METOCLOPRAMIDE HCL INJ 5 MG/ML 2 ML VIAL IV SCH ×4 (05:16→23:23)
[2017-12-01] MEDS: METOPROLOL TARTRATE 1 MG/ML VIAL IV. SCH ×3 (05:17→22:07)
[2017-12-01 06:05] LABS: BASO % 0.3 %; BASO ABS # 0.03 K/uL (0-0.2); EOS % 0.2 %; EOS ABS # 0.02 K/uL (0-0.5); HEMATOCRIT 32.2 % (37-47); HEMOGLOBIN 9.8 g/dL (12.0-16.0); IG# 0.11 K/uL (0.00-0.02); LYMPH ABS # 1.85 K/uL (1.2-3.4); MEAN CELL VOLUME 82.8 fL (80-100); MEAN CORPUSCULAR HEMOGLOBIN 25.2 pg (25-34); MEAN CORPUSCULAR HGB CONC 30.4 g/dl (32-36); MEAN PLATELET VOLUME 9.3 fL (7.4-10.4); MONO % 10.5 %; MONO ABS # 1.15 K/uL (0.11-0.59); NEUT ABS # 7.75 K/uL (1.4-6.5); PLATELET COUNT 456 K/uL (130-400); RED CELL DISTRIBUTION WIDTH CV 14.6 % (11.5-14.5); RED CELL DISTRIBUTION WIDTH SD 43.9 fL (36.4-46.3); WHITE BLOOD COUNT 10.91 K/uL (4.8-10.8)
[2017-12-01 06:34] LABS: CALCIUM 8.7 mg/dl (8.5-10.1); CREATININE 0.37 mg/dl (0.60-1.20); POTASSIUM 3.6 mmol/L (3.5-5.1)
[2017-12-01] MEDS: FORMOTEROL FUMA NEBULIZER SOLN 20 MCG/2 ML VIAL INH SCH ×2 (07:10→19:56)
[2017-12-01] MEDS: CHECK FENTANYL PATCH PLACEMENT SCH ×3 (07:27→23:23)
[2017-12-01] MEDS: CEROVITE ADV FORMULA TAB PO SCH (07:27)
[2017-12-01] MEDS: MULTIVITAMIN TAB PO SCH (07:27)
[2017-12-01] MEDS: GABAPENTIN 300 MG CAP PO SCH ×4 (07:28→23:06)
[2017-12-01] MEDS: LUBIPROSTONE 8 MCG CAP PO SCH ×3 (07:28→23:06)
[2017-12-01] MEDS: BACLOFEN 10 MG TAB PO SCH ×3 (07:30→20:01)
[2017-12-01] MEDS: CETIRIZINE HCL 10 MG TAB PO SCH (07:30)
[2017-12-01] MEDS: BOOST BREEZE NUTRITION DRINK 1 BOX PO SCH ×2 (07:31→15:49)
[2017-12-01] MEDS: CALCIUM 600MG + VIT D 400 IU TAB PO SCH (07:31)
[2017-12-01] MEDS: ARIPIprazole TAB 15 MG TAB PO SCH (07:31)
[2017-12-01] MEDS: ONDANSETRON INJ 2 MG/ML 2 ML VIAL IV PRN (09:02)
--- NOTE | 2017-12-01 10:05 | Surgery Progress Note ---
Surgery Progress Note Date of Service Dec 01, 2017. Subjective Post OP Day: 5 + complaints (not feeling well, has pain off EROSION CONTROL COORDINATOR), + flatus (scant), + nausea, + diet (clears), No bowel movement Objective Vital Signs: Date Time Temp Pulse Resp B/P (MAP) Pulse Ox O2 Delivery O2 Flow Rate FiO2 12/01/17 08:00 Room Air 12/01/17 07:36 36.8 85 17 112/79 (90) 93 Room Air 12/01/17 07:14 77 14 93 Room Air 12/01/17 05:17 90 126/65 12/01/17 04:00 Room Air 12/01/17 03:12 37.7 91 16 126/65 (85) 92 Room Air 11/30/17 23:59 Room Air 11/30/17 23:39 36.8 86 18 108/76 (87) 93 Room Air 11/30/17 22:16 93 120/74 11/30/17 20:00 Room Air 11/30/17 19:15 86 14 95 Room Air 11/30/17 19:09 37.1 86 14 120/74 (89) 95 Room Air 11/30/17 16:00 93 Room Air 11/30/17 15:40 36.7 72 14 103/71 (82) 96 Room Air 11/30/17 15:00 88 108/71 11/30/17 12:00 93 Room Air 11/30/17 11:53 36.8 95 19 108/71 (83) 96 Nasal Cannula 1.0 Abdomen: soft Incision(s): drainage (serous), erythema (mid-upper aspect) Laboratory Results: Results Past 24 Hours Test 11/30/17 15:17 12/01/17 05:35 Range/Units Potassium Level 3.8 3.6 3.5-5.1 mmol/L White Blood Count 10.91 4.8-10.8 K/uL Red Blood Count 3.89 4.2-5.4 M/uL Hemoglobin 9.8 12.0-16.0 g/dL Hematocrit 32.2 37-47 % Mean Corpuscular Volume 82.8 80-100 fL Mean Corpuscular Hemoglobin 25.2 25-34 pg Mean Corpuscular Hemoglobin Concent 30.4 32-36 g/dl Platelet Count 456 130-400 K/uL Mean Platelet Volume 9.3 7.4-10.4 fL Neutrophils (%) (Auto) 71.0 % Lymphocytes (%) (Auto) 17.0 % Monocytes (%) (Auto) 10.5 % Eosinophils (%) (Auto) 0.2 % Basophils (%) (Auto) 0.3 % Neutrophils # (Auto) 7.75 1.4-6.5 K/uL Lymphocytes # (Auto) 1.85 1.2-3.4 K/uL Monocytes # (Auto) 1.15 0.11-0.59 K/uL Eosinophils # (Auto) 0.02 0-0.5 K/uL Basophils # (Auto) 0.03 0-0.2 K/uL RDW Standard Deviation 43.9 36.4-46.3 fL RDW Coefficient of Variation 14.6 11.5-14.5 % Immature Granulocyte % (Auto) 1.0 % Immature Granulocyte # (Auto) 0.11 0.00-0.02 K/uL Sodium Level 134 136-145 mmol/L Chloride Level 101 98-107 mmol/L Carbon Dioxide Level 24 21-32 mmol/L Anion Gap 9.0 3-11 mmol/L Blood Urea Nitrogen 2 7-18 mg/dl Creatinine 0.37 0.60-1.20 mg/dl Est Creatinine Clear Calc Drug Dose 154.2 ml/min Estimated GFR () 137.5 Estimated GFR (Non- 118.6 BUN/Creatinine Ratio 6.3 10-20 Random Glucose 120 70-99 mg/dl Calcium Level 8.7 8.5-10.1 mg/dl Magnesium Level 1.9 1.8-2.4 mg/dl Assessment & Plan Exploratory Laparotomy Release of Small Bowel Obstruction, Small Bowel Decompression, Enterolysis, esophagogastroduodenoscopy incision draining, WBC up slightly, will open a few portia and restart antibiotics keep on clears/sips, consider PPN as it appears intake will be minimal for several more days will increase frequency of prn dilaudid, also on 25mcq duragesic
[2017-12-01] MEDS: HYDROmorphone INJ 1 MG/ML SYR IV PRN ×5 (10:24→23:23)
[2017-12-01] MEDS: SODIUM CHLORIDE 0.9% 1000ML 1,000 ML IV SCH (10:59)
[2017-12-01] MEDS: PROMETHAZINE HCL INJ 12.5 MG in SODIUM CHLORIDE 0.9% 50ML 50 ML IV PRN ×2 (11:02→20:41)
[2017-12-01] MEDS: AMPICILLIN/SULBACTAM SOD INJ 3,000 MG in SODIUM CHLORIDE 0.9% 100ML 100 ML IV SCH ×3 (11:44→22:03)
[2017-12-01] MEDS ORDERED: METOPROLOL TARTRATE 1 MG/ML VIAL ONE (13:09)
--- NOTE | 2017-12-01 13:39 | Progress Note ---
Medicine Progress Note Date & Time of Visit: Dec 01, 2017 at 13:13. Subjective Pt was seen and examined Sitting in bed with no distress Pt said that she feels very noxious She said that she continue to have abdominal pain Pt said that the Zofran seems not helping She said that she has been having more pain in her abdomen She has been having some drainage from the incision site Denies any chest pain, fever, palpitation Objective Last 8 Hrs Date Time Temp Pulse Resp B/P (MAP) Pulse Ox O2 Delivery O2 Flow Rate FiO2 12/01/17 12:43 37.3 92 28 129/78 (95) 95 12/01/17 08:00 Room Air 12/01/17 07:36 36.8 85 17 112/79 (90) 93 Room Air 12/01/17 07:14 77 14 93 Room Air 12/01/17 05:17 90 126/65 Physical Exam: General- no acute distress Head- atraumatic Eyes- PERRL, EOMI ENT- oropharynx clear Neck- supple, no JVD Lungs- clear to auscultation Heart- regular rhythm; no murmur Abdomen- normal bowel sounds, +tenderness and drainage around the incision area Extremities- no calf tenderness Neuro- alert, oriented x 3; PERRL, EOMI; no facial palsy Skin- warm & dry Laboratory Results: Last 24 Hours Test 11/30/17 15:17 12/01/17 05:35 Potassium Level 3.8 mmol/L 3.6 mmol/L White Blood Count 10.91 K/uL Red Blood Count 3.89 M/uL Hemoglobin 9.8 g/dL Hematocrit 32.2 % Mean Corpuscular Volume 82.8 fL Mean Corpuscular Hemoglobin 25.2 pg Mean Corpuscular Hemoglobin Concent 30.4 g/dl Platelet Count 456 K/uL Mean Platelet Volume 9.3 fL Neutrophils (%) (Auto) 71.0 % Lymphocytes (%) (Auto) 17.0 % Monocytes (%) (Auto) 10.5 % Eosinophils (%) (Auto) 0.2 % Basophils (%) (Auto) 0.3 % Neutrophils # (Auto) 7.75 K/uL Lymphocytes # (Auto) 1.85 K/uL Monocytes # (Auto) 1.15 K/uL Eosinophils # (Auto) 0.02 K/uL Basophils # (Auto) 0.03 K/uL RDW Standard Deviation 43.9 fL RDW Coefficient of Variation 14.6 % Immature Granulocyte % (Auto) 1.0 % Immature Granulocyte # (Auto) 0.11 K/uL Sodium Level 134 mmol/L Chloride Level 101 mmol/L Carbon Dioxide Level 24 mmol/L Anion Gap 9.0 mmol/L Blood Urea Nitrogen 2 mg/dl Creatinine 0.37 mg/dl Est Creatinine Clear Calc Drug Dose 154.2 ml/min Estimated GFR () 137.5 Estimated GFR (Non- 118.6 BUN/Creatinine Ratio 6.3 Random Glucose 120 mg/dl Calcium Level 8.7 mg/dl Magnesium Level 1.9 mg/dl Assessment & Plan SMALL BOWEL OBSTRUCTION S/P Exploratory Laparotomy Release of Small Bowel Obstruction, Small Bowel Decompression, Enterolysis, esophagogastroduodenoscopy on 11/[address] Coello Continue to have abdominal tenderness Incision drainage from the portia Surgery on board Elevated WBC Starting on Unasyn Will put NPO Consider to start on TPN as per surgery team Dilaudid increased to 1 mg q3h continue fentanyl patch Added Phenergan for the nausea will get a picc line for the tpn SINUS TACHYCARDIA possible related to pain and not being able to take usual Metoprolol XL 25mg daily On Metoprolol 5mg IV q8h Will transition to oral metoprolol when able to tolerate po Continue monitor HR RIGHT THIGH CELLULITIS cx no growth antibiotics was discontinued Hx of PSVT s/p ablation on Toprol xl 25mg daily usually Continue IV metoprolol COPD stable Chronic pain on fentanyl patch DVT PROPHYLAXIS SCDs, ambulation CODE STATUS FULL CODE Current Inpatient Medications: Current Inpatient Medications Medications (Trade) Dose Ordered Sig/Jennifer Route Start Time Stop Time Status Last Admin Dose Admin Ondansetron HCl (Zofran Inj) 4 mg Q6H PRN IV 11/15/17 09:45 12/15/17 09:44 12/01/17 09:02 4 MG Albuterol (Ventolin Hfa Inhaler) 1 puffs Q4 PRN INH 11/15/17 09:45 12/15/17 09:44 Aripiprazole (Abilify Tab) 30 mg QAM PO 11/16/17 09:00 12/16/17 08:59 12/01/17 07:31 30 MG Baclofen (Lioresal Tab) 10 mg TID PO 11/15/17 14:00 12/15/17 13:59 Future hold 12/01/17 07:30 10 MG Cetirizine HCl (zyrTEC TAB) 10 mg QAM PO 11/16/17 09:00 12/16/17 08:59 12/01/17 07:30 10 MG Cyclobenzaprine HCl (Flexeril Tab) 10 mg TID PRN PO 11/15/17 09:45 12/15/17 09:44 Future hold 11/25/17 21:57 10 MG Gabapentin (Neurontin Cap) 300 mg TID PO 11/15/17 14:00 12/15/17 13:59 Future hold 12/01/17 07:28 300 MG Lorazepam (Ativan Tab) 1 mg BID PRN PO 11/15/17 09:45 12/15/17 09:44 11/29/17 09:05 1 MG Montelukast Sodium (Singulair Tab) 10 mg HS PO 11/15/17 21:00 12/15/17 20:59 Future hold 11/30/17 20:46 10 MG Ondansetron HCl (Zofran Tab) 8 mg Q6H PRN PO 11/15/17 09:45 12/15/17 09:44 11/25/17 09:42 8 MG Lubiprostone (Amitiza) 24 mcg BID PO 11/15/17 21:00 12/15/17 20:59 Future hold 12/01/17 07:28 24 MCG Metoclopramide HCl (Reglan Inj) 5 mg Q6 IV 11/15/17 14:00 12/15/17 13:59 12/01/17 05:16 5 MG Formoterol Fumarate (Perforomist 20MCG/2ML Neb Soln) 20 mcg BID INH 11/15/17 21:00 12/15/17 20:59 12/01/17 07:10 20 MCG Lamotrigine (Lamictal Tab) 125 mg BID PO 11/15/17 21:00 12/15/17 20:59 Future hold 12/01/17 07:29 125 MG Buspirone HCl (Buspar Tab) 10 mg BID PO 11/15/17 21:00 12/15/17 20:59 Future hold 12/01/17 07:28 10 MG Acetaminophen 650 mg/Empty Bag 65 ml @ 260 mls/hr Q6H PRN IV 11/20/17 00:30 12/20/17 00:29 11/30/17 22:41 260 MLS/HR Zolpidem Tartrate (Ambien Tab) 5 mg HS PRN PO 11/21/17 19:30 12/21/17 19:29 11/27/17 23:32 5 MG Menthol (Nice Brown) 1 brown Q2H PRN PO 11/21/17 19:45 12/21/17 19:44 Multivitamins (Multivitamin Tab) 1 tab QAM PO 11/26/17 09:00 12/26/17 08:59 12/01/17 07:27 1 TAB Multivitamins/ Minerals (Multivitamin W/ Minerals Tab) 1 tab DAILY PO 11/26/17 09:00 12/26/17 08:59 12/01/17 07:27 1 TAB Miscellaneous Information (Order Awaiting Action) 1 ea QS N/A 11/26/17 16:00 12/26/17 15:59 Calcium/Vitamin D (Caltrate Plus Tab) 1 tab DAILY PO 11/26/17 09:00 12/26/17 08:59 12/01/17 07:31 1 TAB Naloxone HCl (Narcan Inj) 0.1 mg Q5M PRN IV 11/26/17 11:00 12/26/17 10:59 Sodium Chloride 1,000 ml @ 15 mls/hr Q24H IV 11/26/17 10:59 12/26/17 10:58 Metoprolol Tartrate (Lopressor Iv) 5 mg Q8H IV. 11/27/17 14:00 12/26/17 21:59 12/01/17 05:17 5 MG Potassium Chloride/Dextrose/ Sod Cl 1,000 ml @ 60 mls/hr [id number] IV 11/29/17 13:00 12/29/17 12:59 11/30/17 20:48 60 MLS/HR Al Hydrox/Mg Hydrox/Simethicone (Maalox Max Susp) 15 ml Q4H PRN PO 11/29/17 20:00 12/15/17 09:44 11/30/17 23:55 15 ML Sodium Chloride ([place] Nasal [place]) 1 sprays PRN PRN NA 11/29/17 23:30 12/29/17 23:29 11/30/17 01:42 1 SPRAYS Enteral Nutritional Formula (Boost Breeze Nutritional Drink) 1 box [id number] PO 11/30/17 17:00 12/30/17 16:59 12/01/17 07:31 1 BOX Fentanyl (Duragesic Patch) 25 mcg Q72H TD 11/30/17 13:30 12/14/17 13:29 11/30/17 15:01 25 MCG Miscellaneous (Fentanyl Patch Remove & Waste) 1 ea Q3D N/A 12/03/17 13:30 01/02/18 13:29 Miscellaneous Information (Check Fentanyl Patch Placement) 1 ea QS N/A 11/30/17 16:00 12/30/17 15:59 12/01/17 07:27 1 EA Ampicillin Sodium/ Sulbactam Sodium 3000 mg/Sodium Chloride 108 ml @ 200 mls/hr Q6H IV 12/01/17 10:00 12/11/17 09:59 12/01/17 11:44 200 MLS/HR Hydromorphone HCl (Dilaudid Inj) 1 mg Q3HWA PRN IV 12/01/17 10:00 12/03/17 10:44 12/01/17 10:24 1 MG Promethazine HCl 12.5 mg/Sodium Chloride 50.5 ml @ 204 mls/hr Q6H PRN IV 12/01/17 09:45 12/31/17 09:44 12/01/17 11:02 204 MLS/HR Hydromorphone HCl (Dilaudid Inj) 0.5 mg Q1H PRN IV 12/01/17 10:15 12/03/17 10:44 Bisacodyl (Dulcolax Supp) 10 mg BID ME 12/01/17 21:00 12/31/17 20:59 UNV
[2017-12-01] MEDS: D5NSS + 20MEQ KCL 1,000 ML IV SCH (16:18)
[2017-12-01] MEDS: MONTELUKAST SOD 10 MG TAB PO SCH (20:00)
[2017-12-01] MEDS: BISACODYL 10 MG SUPP PR SCH (20:02)
[2017-12-02] VITALS (8 sets, daily range): BP systolic 126–151; BP diastolic 79–92; PULSE 82–93; TEMP 36.4–37.4; O2SAT 91–92
[2017-12-02] MEDS: HYDROmorphone INJ 1 MG/ML SYR IV PRN ×8 (02:29→23:50)
[2017-12-02] MEDS: ONDANSETRON INJ 2 MG/ML 2 ML VIAL IV PRN ×2 (02:33→14:13)
[2017-12-02] MEDS: AMPICILLIN/SULBACTAM SOD INJ 3,000 MG in SODIUM CHLORIDE 0.9% 100ML 100 ML IV SCH ×4 (04:15→21:50)
[2017-12-02 05:07] LABS: BASO % 0.2 %; BASO ABS # 0.02 K/uL (0-0.2); EOS % 0.3 %; EOS ABS # 0.03 K/uL (0-0.5); HEMATOCRIT 29.9 % (37-47); HEMOGLOBIN 9.4 g/dL (12.0-16.0); IG# 0.12 K/uL (0.00-0.02); LYMPH % 17.2 %; LYMPH ABS # 1.98 K/uL (1.2-3.4); MEAN CELL VOLUME 83.3 fL (80-100); MEAN CORPUSCULAR HEMOGLOBIN 26.2 pg (25-34); MEAN CORPUSCULAR HGB CONC 31.4 g/dl (32-36); MONO % 12.7 %; MONO ABS # 1.46 K/uL (0.11-0.59); NEUT % 68.6 %; NEUT ABS # 7.89 K/uL (1.4-6.5); PLATELET COUNT 371 K/uL (130-400); RED CELL DISTRIBUTION WIDTH CV 14.9 % (11.5-14.5); RED CELL DISTRIBUTION WIDTH SD 45.8 fL (36.4-46.3)
[2017-12-02 05:32] LABS: CREATININE 0.4 mg/dl (0.60-1.20); POTASSIUM 3.3 mmol/L (3.5-5.1)
[2017-12-02] MEDS: METOCLOPRAMIDE HCL INJ 5 MG/ML 2 ML VIAL IV SCH ×4 (05:38→23:50)
[2017-12-02] MEDS: METOPROLOL TARTRATE 1 MG/ML VIAL IV. SCH ×3 (05:39→21:51)
[2017-12-02] MEDS: FORMOTEROL FUMA NEBULIZER SOLN 20 MCG/2 ML VIAL INH SCH ×2 (07:24→19:05)
[2017-12-02] MEDS: LORAZEPAM 1 MG TAB PO PRN ×2 (07:31→22:05)
[2017-12-02] MEDS: PROMETHAZINE HCL INJ 12.5 MG in SODIUM CHLORIDE 0.9% 50ML 50 ML IV PRN ×2 (07:31→17:08)
[2017-12-02] MEDS: CHECK FENTANYL PATCH PLACEMENT SCH ×2 (08:00→15:56)
[2017-12-02] MEDS: D5NSS + 20MEQ KCL 1,000 ML IV SCH (08:50)
[2017-12-02] MEDS: CEROVITE ADV FORMULA TAB PO SCH (09:00)
[2017-12-02] MEDS: LUBIPROSTONE 8 MCG CAP PO SCH ×2 (09:00→20:48)
[2017-12-02] MEDS: BACLOFEN 10 MG TAB PO SCH ×3 (09:00→20:50)
[2017-12-02] MEDS: CALCIUM 600MG + VIT D 400 IU TAB PO SCH (09:00)
[2017-12-02] MEDS: MULTIVITAMIN TAB PO SCH (09:00)
[2017-12-02] MEDS: BOOST BREEZE NUTRITION DRINK 1 BOX PO SCH ×2 (09:00→16:43)
[2017-12-02] MEDS: GABAPENTIN 300 MG CAP PO SCH ×3 (09:00→20:50)
[2017-12-02] MEDS: CETIRIZINE HCL 10 MG TAB PO SCH (09:00)
[2017-12-02] MEDS: ARIPIprazole TAB 15 MG TAB PO SCH (09:00)
[2017-12-02] MEDS: POTASSIUM CHLR 10 MEQ / WTR 10 MEQ in PREMIXED WATER 100 ML IV SCH ×2 (09:13→10:44)
--- NOTE | 2017-12-02 09:13 | Surgery Progress Note ---
Surgery Progress Note Date of Service Dec 02, 2017. Subjective Post OP Day: 6 + bowel movement pt c/o abdominal discomfort, nausea, bloating.... did have a bm, rather large per patient. Objective Vital Signs: Date Time Temp Pulse Resp B/P (MAP) Pulse Ox O2 Delivery O2 Flow Rate FiO2 12/02/17 08:02 36.4 82 17 151/83 (105) 92 Room Air 12/02/17 05:39 98 144/85 12/02/17 04:13 37.0 93 20 136/79 (98) 91 Room Air 12/02/17 04:00 Room Air 12/01/17 23:59 Room Air 12/01/17 23:37 36.9 91 19 141/89 (106) 93 12/01/17 22:07 95 141/83 12/01/17 20:00 Room Air 12/01/17 19:58 96 14 92 Room Air 12/01/17 19:05 37.4 91 18 137/80 (99) 92 Room Air 12/01/17 16:56 Room Air 12/01/17 16:13 36.7 79 20 129/78 (95) 90 12/01/17 16:00 Room Air 12/01/17 13:30 Room Air 12/01/17 13:16 89 129/78 12/01/17 13:16 89 129/78 12/01/17 12:43 37.3 92 28 129/78 (95) 95 12/01/17 12:00 Room Air Physical Exam: KENROY drainage (serous) General Appearance: + mild distress Respiratory/Chest: no respiratory distress Abdomen: soft, + distended, + pertinent finding (a couple of portia removed yesterday. pt in chair/unable to assess today. clean/dry today per nurse. ) Laboratory Results: Results Past 24 Hours Test 12/02/17 04:35 Range/Units White Blood Count 11.50 4.8-10.8 K/uL Red Blood Count 3.59 4.2-5.4 M/uL Hemoglobin 9.4 12.0-16.0 g/dL Hematocrit 29.9 37-47 % Mean Corpuscular Volume 83.3 80-100 fL Mean Corpuscular Hemoglobin 26.2 25-34 pg Mean Corpuscular Hemoglobin Concent 31.4 32-36 g/dl Platelet Count 371 130-400 K/uL Mean Platelet Volume 9.0 7.4-10.4 fL Neutrophils (%) (Auto) 68.6 % Lymphocytes (%) (Auto) 17.2 % Monocytes (%) (Auto) 12.7 % Eosinophils (%) (Auto) 0.3 % Basophils (%) (Auto) 0.2 % Neutrophils # (Auto) 7.89 1.4-6.5 K/uL Lymphocytes # (Auto) 1.98 1.2-3.4 K/uL Monocytes # (Auto) 1.46 0.11-0.59 K/uL Eosinophils # (Auto) 0.03 0-0.5 K/uL Basophils # (Auto) 0.02 0-0.2 K/uL RDW Standard Deviation 45.8 36.4-46.3 fL RDW Coefficient of Variation 14.9 11.5-14.5 % Immature Granulocyte % (Auto) 1.0 % Immature Granulocyte # (Auto) 0.12 0.00-0.02 K/uL Sodium Level 136 136-145 mmol/L Potassium Level 3.3 3.5-5.1 mmol/L Chloride Level 101 98-107 mmol/L Carbon Dioxide Level 29 21-32 mmol/L Anion Gap 6.0 3-11 mmol/L Blood Urea Nitrogen 5 7-18 mg/dl Creatinine 0.40 0.60-1.20 mg/dl Est Creatinine Clear Calc Drug Dose 137.3 ml/min Estimated GFR () 134.0 Estimated GFR (Non- 115.6 BUN/Creatinine Ratio 12.9 10-20 Random Glucose 114 70-99 mg/dl Calcium Level 8.0 8.5-10.1 mg/dl Assessment & Plan POD 6 suspect severe ileus ( anticipated). pt pulled ngt and refused replacement previously. in light of pain, distension, and slightly increased wbc, will obtain ct scan...will have to be without oral contrast as patient will not tolerate it. picc placed. would consider TPN. pt will not be eating normally any time soon. cont antibiotics continue local wound care. KENROY serous. 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 doing ok. pre-op pain is resolved anticipate post op ileus ( possibly severe). unable to place NGT b/c of prior gastric fundoplication [facility] covering this weekend. 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 doing ok. pre-op pain is resolved anticipate post op ileus ( possibly severe). unable to place NGT b/c of prior gastric fundoplication [facility] covering this weekend.
[2017-12-02] MEDS ORDERED: OPTIRAY 320 IV PRN ×2 (09:30)
[2017-12-02] MEDS ORDERED: TPN/PPN CONSULT PHARMACY STA (10:14)
[2017-12-02] MEDS ORDERED: TPN/PPN CONSULT PHARMACY PRN ×2 (10:45→11:15)
[2017-12-02] MEDS: SODIUM CHLORIDE 0.9% 1000ML 1,000 ML IV SCH (10:59)
--- NOTE | 2017-12-02 11:07 | DIAGNOSTIC IMAGING REPORT ---
CT ABD/PELVIS IV CONTRAST ONLY CLINICAL HISTORY: Postoperative abdominal pain COMPARISON STUDY: 11/26/2017 TECHNIQUE: Following the IV administration of 93 mL of Optiray-320, CT scan of the abdomen and pelvis was performed from the lung bases to the proximal femurs. Images are reviewed in the axial, sagittal, and coronal planes. IV contrast was administered without complication. A dose lowering technique was utilized adhering to the principles of ALARA. CT DOSE: 427.01 mGy.cm FINDINGS: Lower chest: There are by basilar opacities, likely atelectatic although an infectious/inflammatory process could appear similar. There is fluid within a dilated esophagus. Liver: The contrast-enhanced liver is normal in size, contour, and attenuation. There is no intrahepatic biliary ductal dilatation. The hepatic veins and portal veins are patent. Gallbladder: Unremarkable. Spleen: Normal in size and attenuation. Pancreas: Unremarkable. Adrenal glands: Unremarkable. Kidneys: There is symmetric renal cortical enhancement. The kidneys are normal in size without hydronephrosis. Bowel: There is marked gastric distention. There are multiple dilated small bowel loops containing air-fluid levels. Evaluation of the bowel is difficult due to the possibility of abdominal fat, and the extensive artifact secondary to prior orthopedic procedures. The findings are suspicious for a high-grade small bowel obstruction. There are postoperative changes involving the anterior abdominal wall. There is a right lower quadrant surgical drain. Peritoneum: There is no intraperitoneal free air or abdominal ascites. Vasculature: The abdominal aorta is normal in course and caliber. Adenopathy: There are persistent mildly enlarged right inguinal lymph nodes. Pelvic viscera: There is indwelling Bojorquez catheter present. Skeletal structures: There are extensive posttraumatic and postsurgical changes involving the right hip, pelvis, and lumbar spine. IMPRESSION: 1. Persistent small bowel obstructive pattern 2. No evidence of free intraperitoneal air. No evidence of portal venous gas 3. Interval surgery with postsurgical changes involve the abdominal wall and placement of a right lower quadrant drain 4. Bibasilar pulmonary opacities, likely atelectatic although a superimposed pneumonia could appear similar 5. Stable mildly enlarged right inguinal lymph nodes Electronically signed by: Sukhdev Crenshaw M.D. 12/02/2017 11:06 AM Dictated Date/Time: 12/02/2017 10:51 AM
[2017-12-02 11:28] LABS: ALBUMIN 2.3 gm/dl (3.4-5.0); PHOSPHORUS 3.2 mg/dl (2.5-4.9)
[2017-12-02] MEDS: BISACODYL 10 MG SUPP PR SCH ×2 (11:46→20:51)
[2017-12-02] MEDS ORDERED: DEXTROSE 10% 1,000 ML IV PRN (12:49)
--- NOTE | 2017-12-02 15:39 | Progress Note ---
Medicine Progress Note Date & Time of Visit: Dec 02, 2017 at 15:32. Subjective Pt was seen and examined Lying in bed with no distress Pt said that she continues to have abdominal pain Pt said that she had a small BM yesterday and this morning Pt said that her belly continue to feel distended She agreed to have NGT placement try Denies any fever, palpitation, dizziness and SOB Objective Last 8 Hrs Date Time Temp Pulse Resp B/P (MAP) Pulse Ox O2 Delivery O2 Flow Rate FiO2 12/02/17 13:48 89 145/82 12/02/17 12:00 Room Air 12/02/17 11:41 37.4 88 16 145/82 (103) 91 Room Air 12/02/17 10:56 Room Air 12/02/17 08:02 36.4 82 17 151/83 (105) 92 Room Air 12/02/17 08:00 Room Air Physical Exam: General- no acute distress Head- atraumatic Eyes- PERRL, EOMI ENT- oropharynx clear Neck- supple, no JVD Lungs- clear to auscultation Heart- regular rhythm; no murmur Abdomen- +distension, +tenderness and drainage around the incision area Extremities- no calf tenderness Neuro- alert, oriented x 3; PERRL, EOMI; no facial palsy Skin- warm & dry Laboratory Results: Last 24 Hours Test 12/02/17 04:35 12/02/17 10:55 White Blood Count 11.50 K/uL Red Blood Count 3.59 M/uL Hemoglobin 9.4 g/dL Hematocrit 29.9 % Mean Corpuscular Volume 83.3 fL Mean Corpuscular Hemoglobin 26.2 pg Mean Corpuscular Hemoglobin Concent 31.4 g/dl Platelet Count 371 K/uL Mean Platelet Volume 9.0 fL Neutrophils (%) (Auto) 68.6 % Lymphocytes (%) (Auto) 17.2 % Monocytes (%) (Auto) 12.7 % Eosinophils (%) (Auto) 0.3 % Basophils (%) (Auto) 0.2 % Neutrophils # (Auto) 7.89 K/uL Lymphocytes # (Auto) 1.98 K/uL Monocytes # (Auto) 1.46 K/uL Eosinophils # (Auto) 0.03 K/uL Basophils # (Auto) 0.02 K/uL RDW Standard Deviation 45.8 fL RDW Coefficient of Variation 14.9 % Immature Granulocyte % (Auto) 1.0 % Immature Granulocyte # (Auto) 0.12 K/uL Sodium Level 136 mmol/L Potassium Level 3.3 mmol/L Chloride Level 101 mmol/L Carbon Dioxide Level 29 mmol/L Anion Gap 6.0 mmol/L Blood Urea Nitrogen 5 mg/dl Creatinine 0.40 mg/dl Est Creatinine Clear Calc Drug Dose 137.3 ml/min Estimated GFR () 134.0 Estimated GFR (Non- 115.6 BUN/Creatinine Ratio 12.9 Random Glucose 114 mg/dl Calcium Level 8.0 mg/dl Phosphorus Level 3.2 mg/dl Magnesium Level 2.1 mg/dl Albumin 2.3 gm/dl Triglycerides Level 76 mg/dl Assessment & Plan SMALL BOWEL OBSTRUCTION S/P Exploratory Laparotomy Release of Small Bowel Obstruction, Small Bowel Decompression, Enterolysis, esophagogastroduodenoscopy on 11/[address] Coello Continue to have abdominal tenderness Incision drainage from the [facility] Surgery on board Elevated WBC Starting on Unasyn Will put NPO Consider to start on TPN as per surgery team Dilaudid increased to 1 mg q3h continue fentanyl patch Added Phenergan for the nausea will get a picc line for the tpn 12/02 Abdominal is distended and tender S/P Exploratory Laparotomy Release of Small Bowel Obstruction, Small Bowel Decompression, Enterolysis, esophagogastroduodenoscopy on 11/[address] Coello Repeat CT abd done today showed Persistent small bowel obstructive pattern case discussed with surgeon Dr. Coello, agreed with NGT placement Continue Dilaudid for pain Will start on TPN SINUS TACHYCARDIA possible related to pain and not being able to take usual Metoprolol XL 25mg daily On Metoprolol 5mg IV q8h Will transition to oral metoprolol when able to tolerate po Continue monitor HR Stable RIGHT THIGH CELLULITIS cx no growth antibiotics was discontinued ELECTROLYTES IMBALANCE K 3.3 K replaced Monitor electrolytes Hx of PSVT s/p ablation on Toprol xl 25mg daily usually Continue IV metoprolol COPD stable Chronic pain on fentanyl patch DVT PROPHYLAXIS SCDs, ambulation CODE STATUS FULL CODE Current Inpatient Medications: Current Inpatient Medications Medications (Trade) Dose Ordered Sig/Jennifer Route Start Time Stop Time Status Last Admin Dose Admin Ondansetron HCl (Zofran Inj) 4 mg Q6H PRN IV 11/15/17 09:45 12/15/17 09:44 12/02/17 14:13 4 MG Albuterol (Ventolin Hfa Inhaler) 1 puffs Q4 PRN INH 11/15/17 09:45 12/15/17 09:44 Aripiprazole (Abilify Tab) 30 mg QAM PO 11/16/17 09:00 12/16/17 08:59 12/01/17 07:31 30 MG Baclofen (Lioresal Tab) 10 mg TID PO 11/15/17 14:00 12/15/17 13:59 Future hold 12/01/17 20:01 10 MG Cetirizine HCl (zyrTEC TAB) 10 mg QAM PO 11/16/17 09:00 12/16/17 08:59 12/01/17 07:30 10 MG Cyclobenzaprine HCl (Flexeril Tab) 10 mg TID PRN PO 11/15/17 09:45 12/15/17 09:44 Future hold 11/25/17 21:57 10 MG Gabapentin (Neurontin Cap) 300 mg TID PO 11/15/17 14:00 12/15/17 13:59 Future hold 12/01/17 07:28 300 MG Lorazepam (Ativan Tab) 1 mg BID PRN PO 11/15/17 09:45 12/15/17 09:44 12/02/17 07:31 1 MG Montelukast Sodium (Singulair Tab) 10 mg HS PO 11/15/17 21:00 12/15/17 20:59 Future hold 12/01/17 20:00 10 MG Ondansetron HCl (Zofran Tab) 8 mg Q6H PRN PO 11/15/17 09:45 12/15/17 09:44 11/25/17 09:42 8 MG Lubiprostone (Amitiza) 24 mcg BID PO 11/15/17 21:00 12/15/17 20:59 Future hold 12/01/17 07:28 24 MCG Metoclopramide HCl (Reglan Inj) 5 mg Q6 IV 11/15/17 14:00 12/15/17 13:59 12/02/17 11:46 5 MG Formoterol Fumarate (Perforomist 20MCG/2ML Neb Soln) 20 mcg BID INH 11/15/17 21:00 12/15/17 20:59 12/01/17 19:56 20 MCG Lamotrigine (Lamictal Tab) 125 mg BID PO 11/15/17 21:00 12/15/17 20:59 Future hold 12/01/17 20:02 125 MG Buspirone HCl (Buspar Tab) 10 mg BID PO 11/15/17 21:00 12/15/17 20:59 Future hold 12/01/17 19:59 10 MG Acetaminophen 650 mg/Empty Bag 65 ml @ 260 mls/hr Q6H PRN IV 11/20/17 00:30 12/20/17 00:29 11/30/17 22:41 260 MLS/HR Zolpidem Tartrate (Ambien Tab) 5 mg HS PRN PO 11/21/17 19:30 12/21/17 19:29 11/27/17 23:32 5 MG Menthol (Nice Brown) 1 brown Q2H PRN PO 11/21/17 19:45 12/21/17 19:44 Multivitamins (Multivitamin Tab) 1 tab QAM PO 11/26/17 09:00 12/26/17 08:59 12/01/17 07:27 1 TAB Multivitamins/ Minerals (Multivitamin W/ Minerals Tab) 1 tab DAILY PO 11/26/17 09:00 12/26/17 08:59 12/01/17 07:27 1 TAB Miscellaneous Information (Order Awaiting Action) 1 ea QS N/A 11/26/17 16:00 12/26/17 15:59 Calcium/Vitamin D (Caltrate Plus Tab) 1 tab DAILY PO 11/26/17 09:00 12/26/17 08:59 12/01/17 07:31 1 TAB Metoprolol Tartrate (Lopressor Iv) 5 mg Q8H IV. 11/27/17 14:00 12/26/17 21:59 12/02/17 13:48 5 MG Al Hydrox/Mg Hydrox/Simethicone (Maalox Max Susp) 15 ml Q4H PRN PO 11/29/17 20:00 12/15/17 09:44 11/30/17 23:55 15 ML Sodium Chloride ([place] Nasal [place]) 1 sprays PRN PRN NA 11/29/17 23:30 12/29/17 23:29 11/30/17 01:42 1 SPRAYS Enteral Nutritional Formula (Boost Breeze Nutritional Drink) 1 box BID17 PO 11/30/17 17:00 12/30/17 16:59 12/01/17 07:31 1 BOX Fentanyl (Duragesic Patch) 25 mcg Q72H TD 11/30/17 13:30 12/14/17 13:29 11/30/17 15:01 25 MCG Miscellaneous (Fentanyl Patch Remove & Waste) 1 ea Q3D N/A 12/03/17 13:30 01/02/18 13:29 Miscellaneous Information (Check Fentanyl Patch Placement) 1 ea QS N/A 11/30/17 16:00 12/30/17 15:59 12/02/17 08:00 1 EA Ampicillin Sodium/ Sulbactam Sodium 3000 mg/Sodium Chloride 108 ml @ 200 mls/hr Q6H IV 12/01/17 10:00 12/11/17 09:59 12/02/17 11:16 200 MLS/HR Hydromorphone HCl (Dilaudid Inj) 1 mg Q3HWA PRN IV 12/01/17 10:00 12/03/17 10:44 12/02/17 14:43 1 MG Promethazine HCl 12.5 mg/Sodium Chloride 50.5 ml @ 204 mls/hr Q6H PRN IV 12/01/17 09:45 12/31/17 09:44 12/02/17 07:31 204 MLS/HR Hydromorphone HCl (Dilaudid Inj) 0.5 mg Q1H PRN IV 12/01/17 10:15 12/03/17 10:44 Bisacodyl (Dulcolax Supp) 10 mg BID SC 12/01/17 21:00 12/31/17 20:59 12/02/17 11:46 10 MG Heparin Sodium (Porcine) (Heparin 10 Unit/ ml 5 ml Flush) 5 ml PRN PRN FLUSH 12/01/17 15:15 12/31/17 15:14 Ioversol (Optiray 320) 100 ml UD PRN IV 12/02/17 09:30 12/06/17 09:29 Miscellaneous Information (Pharmacy Tpn/ Ppn Consult Active) 1 ea UD PRN N/A 12/02/17 11:15 01/01/18 10:44 Nutrition (Parenteral) 0 ml @ 0 mls/hr TODAY@1600 IV 12/02/17 16:00 12/03/17 15:59 Dextrose 1,000 ml @ 0 mls/hr Q0M PRN IV 12/02/17 12:49 01/01/18 12:48
[2017-12-02] MEDS ORDERED: CUSTOM CENTRAL PN 1 BAG IV SCH (16:00)
[2017-12-02] MEDS: MONTELUKAST SOD 10 MG TAB PO SCH (20:50)
[2017-12-03] VITALS (7 sets, daily range): BP systolic 132–151; BP diastolic 73–96; PULSE 82–105; TEMP 36.8–37.2; O2SAT 92–96
[2017-12-03] MEDS: ONDANSETRON INJ 2 MG/ML 2 ML VIAL IV PRN ×4 (01:51→22:37)
[2017-12-03] MEDS: HYDROmorphone INJ 0.5 MG/0.5 ML SYR IV PRN ×3 (03:10→09:26)
[2017-12-03] MEDS: AMPICILLIN/SULBACTAM SOD INJ 3,000 MG in SODIUM CHLORIDE 0.9% 100ML 100 ML IV SCH ×3 (04:22→16:00)
[2017-12-03] MEDS: PROMETHAZINE HCL INJ 12.5 MG in SODIUM CHLORIDE 0.9% 50ML 50 ML IV PRN ×2 (05:06→20:27)
[2017-12-03 06:01] LABS: HEMOGLOBIN 9.4 g/dL (12.0-16.0); MEAN CELL VOLUME 82.9 fL (80-100); MEAN CORPUSCULAR HGB CONC 31.3 g/dl (32-36); MEAN PLATELET VOLUME 8.8 fL (7.4-10.4); PLATELET COUNT 349 K/uL (130-400); RED CELL DISTRIBUTION WIDTH SD 45.5 fL (36.4-46.3); WHITE BLOOD COUNT 13.83 K/uL (4.8-10.8)
[2017-12-03] MEDS: METOCLOPRAMIDE HCL INJ 5 MG/ML 2 ML VIAL IV SCH ×3 (06:19→17:48)
[2017-12-03] MEDS: METOPROLOL TARTRATE 1 MG/ML VIAL IV. SCH ×2 (06:24→14:52)
[2017-12-03 06:41] LABS: CALCIUM 8.1 mg/dl (8.5-10.1); CREATININE 0.39 mg/dl (0.60-1.20); PHOSPHORUS 2.7 mg/dl (2.5-4.9)
[2017-12-03] MEDS: CHECK FENTANYL PATCH PLACEMENT SCH ×3 (08:00→15:51)
[2017-12-03] MEDS: BOOST BREEZE NUTRITION DRINK 1 BOX PO SCH ×2 (08:43→16:22)
[2017-12-03] MEDS: FORMOTEROL FUMA NEBULIZER SOLN 20 MCG/2 ML VIAL INH SCH ×2 (08:59→18:38)
[2017-12-03] MEDS: CEROVITE ADV FORMULA TAB PO SCH (09:00)
[2017-12-03] MEDS: CALCIUM 600MG + VIT D 400 IU TAB PO SCH (09:00)
--- NOTE | 2017-12-03 09:11 | Pharmacy Progress Note ---
Parenteral Nutrition Consult Date of Service Dec 03, 2017. [facility] has been consulted to manage parenteral nutrition orders and order appropriate labs. As part of the Nutrition Support Team guidelines, pharmacy will work in conjunction with dietary when determining the patients caloric needs. Subjective The patient is a 57 year old female admitted on Nov 15, 2017 at 09:43 for Small Bowel Obstruction. Patient is to receive parenteral nutrition for [INDICATION]. Pertinent PMH: Objective Height (Feet): 5 Height (Inches): 2.00 Weight (Kilograms): 65.000 Intake & Output (Last 72 Hr): 12/02/17 12/03/17 12/04/17 08:00 08:00 08:00 Intake Total 3251 ml 2004 ml Output Total 1050 ml 4770 ml Balance 2201 ml -2766 ml Laboratory Data (Last 24 Hr): Test 12/02/17 10:55 12/03/17 05:45 Albumin 2.3 gm/dl (3.4-5.0) Magnesium Level 2.1 mg/dl (1.8-2.4) 2.1 mg/dl (1.8-2.4) Phosphorus Level 3.2 mg/dl (2.5-4.9) 2.7 mg/dl (2.5-4.9) Triglycerides Level 76 mg/dl (0-150) Blood Urea Nitrogen 6 mg/dl (7-18) Calcium Level 8.1 mg/dl (8.5-10.1) Carbon Dioxide Level 24 mmol/L (21-32) Chloride Level 100 mmol/L (98-107) Creatinine 0.39 mg/dl (0.60-1.20) Potassium Level 4.0 mmol/L (3.5-5.1) Random Glucose 119 mg/dl (70-99) Sodium Level 131 mmol/L (136-145) Nutrition Assessment Please refer to the Notes section of the EMR 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 Plan For day 1 of PN administration, the following will be ordered: Macronutrients Amino acids 75 grams/day Dextrose 100 grams/day Lipids 50 grams/day Micronutrients Combined electrolytes 0 mL - contains 35 mEq Na, 20 meq K, 4.5 mEq Ca, 5 mEq Mg , 35 mEq Cl, 29.5 mEq acetate per 20 mL Sodium phosphate 21 MMol Sodium chloride 175 mEq Sodium acetate 50 mEq Potassium phosphate 0 mMol Potassium chloride 0 mEq Potassium acetate 100 mEq Magnesium sulfate 4.06 mEq Calcium gluconate 4.65 mEq Multivitamins 10 mL Trace Elements 10 mL Additional additives: Pepcid Total volume 2000 mL to be infused over 24 hrs will provide 1140 kcal/day Labs to be ordered per PN order protocol Pt is chronically hyponatremic. Have thus provided a total of 253meq NaCl in this first bag Pharmacy will follow and adjust parenteral nutrition orders on a daily basis. Thank you.
[2017-12-03] MEDS: GABAPENTIN 300 MG CAP PO SCH ×3 (09:22→20:39)
[2017-12-03] MEDS: BACLOFEN 10 MG TAB PO SCH ×3 (09:22→20:39)
[2017-12-03] MEDS: MULTIVITAMIN TAB PO SCH (09:23)
[2017-12-03] MEDS: ARIPIprazole TAB 15 MG TAB PO SCH (09:23)
[2017-12-03] MEDS: CETIRIZINE HCL 10 MG TAB PO SCH (09:23)
[2017-12-03] MEDS: LUBIPROSTONE 8 MCG CAP PO SCH ×2 (09:24→20:39)
[2017-12-03] MEDS: BISACODYL 10 MG SUPP PR SCH ×2 (09:25→20:54)
[2017-12-03] MEDS: LORAZEPAM 1 MG TAB PO PRN (12:05)
[2017-12-03] MEDS: HYDROmorphone INJ 1 MG/ML SYR IV PRN ×5 (12:05→22:37)
[2017-12-03] MEDS: FENTANYL PATCH REMOVE & WASTE SCH (14:50)
[2017-12-03] MEDS: FENTANYL 25 MCG/HR TDSY TD SCH (14:52)
[2017-12-03] MEDS ORDERED: CUSTOM CENTRAL PN 1 BAG IV SCH (16:00)
[2017-12-03] MEDS ORDERED: PIPERACILL/TAZOBAC CONSULT ACTIVE PRN (16:00)
--- NOTE | 2017-12-03 16:02 | Progress Note ---
Medicine Progress Note Date & Time of Visit: Dec 03, 2017 at 15:33. Subjective Pt was and examined Sitting in chair continue to have abdominal tenderness NG tube placed yesterday with continuous drainage Pt said that she had an episode of vomiting last night She thinks it is the abx that caused her to vomit Pt said that she continues to have abdominal pain she said that the pain med does not last much denies any chest pain, palpitation, dizziness and SOB Objective Last 8 Hrs Date Time Temp Pulse Resp B/P (MAP) Pulse Ox O2 Delivery O2 Flow Rate FiO2 12/03/17 14:52 93 143/101 12/03/17 12:10 Room Air 12/03/17 12:00 37.1 85 20 151/92 (111) 96 Room Air 12/03/17 08:11 Room Air Physical Exam: General- no acute distress Head- atraumatic Eyes- PERRL, EOMI ENT- NGT in placed Neck- supple, no JVD Lungs- clear to auscultation Heart- regular rhythm; no murmur Abdomen- +distension, +tenderness and drainage around the incision area Extremities- no calf tenderness Neuro- alert, oriented x 3; PERRL, EOMI; no facial palsy Skin- warm & dry Laboratory Results: Last 24 Hours Test 12/02/17 20:04 12/03/17 05:45 Bedside Glucose 113 mg/dl White Blood Count 13.83 K/uL Red Blood Count 3.62 M/uL Hemoglobin 9.4 g/dL Hematocrit 30.0 % Mean Corpuscular Volume 82.9 fL Mean Corpuscular Hemoglobin 26.0 pg Mean Corpuscular Hemoglobin Concent 31.3 g/dl RDW Standard Deviation 45.5 fL RDW Coefficient of Variation 15.0 % Platelet Count 349 K/uL Mean Platelet Volume 8.8 fL Sodium Level 131 mmol/L Potassium Level 4.0 mmol/L Chloride Level 100 mmol/L Carbon Dioxide Level 24 mmol/L Anion Gap 7.0 mmol/L Blood Urea Nitrogen 6 mg/dl Creatinine 0.39 mg/dl Est Creatinine Clear Calc Drug Dose 140.8 ml/min Estimated GFR () 135.1 Estimated GFR (Non- 116.6 BUN/Creatinine Ratio 16.1 Random Glucose 119 mg/dl Calcium Level 8.1 mg/dl Phosphorus Level 2.7 mg/dl Magnesium Level 2.1 mg/dl Assessment & Plan SMALL BOWEL OBSTRUCTION S/P Exploratory Laparotomy Release of Small Bowel Obstruction, Small Bowel Decompression, Enterolysis, esophagogastroduodenoscopy on 11/[address] Coello Continue to have abdominal tenderness Incision drainage from the [facility] Surgery on board Elevated WBC Starting on Unasyn Will put NPO Consider to start on TPN as per surgery team Dilaudid increased to 1 mg q3h continue fentanyl patch Added Phenergan for the nausea will get a picc line for the tpn 12/03 Abdominal is distended and tender S/P Exploratory Laparotomy Release of Small Bowel Obstruction, Small Bowel Decompression, Enterolysis, esophagogastroduodenoscopy on 11/[address] Coello Repeat CT abd done yesterday showed Persistent small bowel obstructive pattern Continue NGT with low suction Continue Dilaudid for pain Will consider to change the unasyn to zosyn since pt said that she feels nauseated with unasyn Continue TPN SINUS TACHYCARDIA possible related to pain and not being able to take usual Metoprolol XL 25mg daily On Metoprolol 5mg IV q8h Will transition to oral metoprolol when able to tolerate po Continue monitor HR Stable RIGHT THIGH CELLULITIS cx no growth antibiotics was discontinued ELECTROLYTES IMBALANCE K stable Na dropped to 131 Monitor electrolytes Hx of PSVT s/p ablation on Toprol xl 25mg daily usually Continue IV metoprolol COPD stable Chronic pain on fentanyl patch On dilaudid q1hr prn DVT PROPHYLAXIS SCDs, ambulation CODE STATUS FULL CODE Current Inpatient Medications: Current Inpatient Medications Medications (Trade) Dose Ordered Sig/Jennifer Route Start Time Stop Time Status Last Admin Dose Admin Ondansetron HCl (Zofran Inj) 4 mg Q6H PRN IV 11/15/17 09:45 12/15/17 09:44 12/03/17 09:25 4 MG Albuterol (Ventolin Hfa Inhaler) 1 puffs Q4 PRN INH 11/15/17 09:45 12/15/17 09:44 Aripiprazole (Abilify Tab) 30 mg QAM PO 11/16/17 09:00 12/16/17 08:59 12/03/17 09:23 30 MG Baclofen (Lioresal Tab) 10 mg TID PO 11/15/17 14:00 12/15/17 13:59 Future hold 12/03/17 14:53 10 MG Cetirizine HCl (zyrTEC TAB) 10 mg QAM PO 11/16/17 09:00 12/16/17 08:59 12/03/17 09:23 10 MG Cyclobenzaprine HCl (Flexeril Tab) 10 mg TID PRN PO 11/15/17 09:45 12/15/17 09:44 Future hold 11/25/17 21:57 10 MG Gabapentin (Neurontin Cap) 300 mg TID PO 11/15/17 14:00 12/15/17 13:59 Future hold 12/03/17 14:53 300 MG Lorazepam (Ativan Tab) 1 mg BID PRN PO 11/15/17 09:45 12/15/17 09:44 12/03/17 12:05 1 MG Montelukast Sodium (Singulair Tab) 10 mg HS PO 11/15/17 21:00 12/15/17 20:59 Future hold 12/02/17 20:50 10 MG Ondansetron HCl (Zofran Tab) 8 mg Q6H PRN PO 11/15/17 09:45 12/15/17 09:44 11/25/17 09:42 8 MG Lubiprostone (Amitiza) 24 mcg BID PO 11/15/17 21:00 12/15/17 20:59 Future hold 12/03/17 09:24 24 MCG Metoclopramide HCl (Reglan Inj) 5 mg Q6 IV 11/15/17 14:00 12/15/17 13:59 12/03/17 11:40 5 MG Formoterol Fumarate (Perforomist 20MCG/2ML Neb Soln) 20 mcg BID INH 11/15/17 21:00 12/15/17 20:59 12/02/17 19:05 20 MCG Lamotrigine (Lamictal Tab) 125 mg BID PO 11/15/17 21:00 12/15/17 20:59 Future hold 12/03/17 09:24 125 MG Buspirone HCl (Buspar Tab) 10 mg BID PO 11/15/17 21:00 12/15/17 20:59 Future hold 12/03/17 09:22 10 MG Acetaminophen 650 mg/Empty Bag 65 ml @ 260 mls/hr Q6H PRN IV 11/20/17 00:30 12/20/17 00:29 11/30/17 22:41 260 MLS/HR Zolpidem Tartrate (Ambien Tab) 5 mg HS PRN PO 11/21/17 19:30 12/21/17 19:29 11/27/17 23:32 5 MG Menthol (Nice Brown) 1 brown Q2H PRN PO 11/21/17 19:45 12/21/17 19:44 Multivitamins (Multivitamin Tab) 1 tab QAM PO 11/26/17 09:00 12/26/17 08:59 12/03/17 09:23 1 TAB Multivitamins/ Minerals (Multivitamin W/ Minerals Tab) 1 tab DAILY PO 11/26/17 09:00 12/26/17 08:59 12/03/17 09:00 1 TAB Miscellaneous Information (Order Awaiting Action) 1 ea QS N/A 11/26/17 16:00 12/26/17 15:59 Calcium/Vitamin D (Caltrate Plus Tab) 1 tab DAILY PO 11/26/17 09:00 12/26/17 08:59 12/03/17 09:00 1 TAB Metoprolol Tartrate (Lopressor Iv) 5 mg Q8H IV. 11/27/17 14:00 12/26/17 21:59 12/03/17 14:52 5 MG Al Hydrox/Mg Hydrox/Simethicone (Maalox Max Susp) 15 ml Q4H PRN PO 11/29/17 20:00 12/15/17 09:44 11/30/17 23:55 15 ML Sodium Chloride ([place] Nasal [place]) 1 sprays PRN PRN NA 11/29/17 23:30 12/29/17 23:29 11/30/17 01:42 1 SPRAYS Enteral Nutritional Formula (Boost Breeze Nutritional Drink) 1 box BID17 PO 11/30/17 17:00 12/30/17 16:59 12/01/17 07:31 1 BOX Fentanyl (Duragesic Patch) 25 mcg Q72H TD 11/30/17 13:30 12/14/17 13:29 12/03/17 14:52 25 MCG Miscellaneous (Fentanyl Patch Remove & Waste) 1 ea Q3D N/A 12/03/17 13:30 01/02/18 13:29 12/03/17 14:50 1 EA Miscellaneous Information (Check Fentanyl Patch Placement) 1 ea QS N/A 11/30/17 16:00 12/30/17 15:59 12/03/17 08:00 1 EA Ampicillin Sodium/ Sulbactam Sodium 3000 mg/Sodium Chloride 108 ml @ 200 mls/hr Q6H IV 12/01/17 10:00 12/11/17 09:59 12/03/17 04:22 200 MLS/HR Promethazine HCl 12.5 mg/Sodium Chloride 50.5 ml @ 204 mls/hr Q6H PRN IV 12/01/17 09:45 12/31/17 09:44 12/03/17 05:06 204 MLS/HR Bisacodyl (Dulcolax Supp) 10 mg BID HI 12/01/17 21:00 12/31/17 20:59 12/03/17 09:25 10 MG Heparin Sodium (Porcine) (Heparin 10 Unit/ ml 5 ml Flush) 5 ml PRN PRN FLUSH 12/01/17 15:15 12/31/17 15:14 Ioversol (Optiray 320) 100 ml UD PRN IV 12/02/17 09:30 12/06/17 09:29 Miscellaneous Information (Pharmacy Tpn/ Ppn Consult Active) 1 ea UD PRN N/A 12/02/17 11:15 01/01/18 10:44 Nutrition (Parenteral) 0 ml @ 0 mls/hr TODAY@1600 IV 12/02/17 16:00 12/03/17 15:59 12/02/17 15:47 0 MLS/HR Dextrose 1,000 ml @ 0 mls/hr Q0M PRN IV 12/02/17 12:49 01/01/18 12:48 Nutrition (Parenteral) 0 ml @ 0 mls/hr TODAY@1600 IV 12/03/17 16:00 12/04/17 15:59 Hydromorphone HCl (Dilaudid Inj) 1 mg Q2HWA PRN IV 12/03/17 10:00 12/06/17 09:59 12/03/17 14:12 1 MG
--- NOTE | 2017-12-03 17:11 | Surgery Progress Note ---
Surgery Progress Note Date of Service Dec 03, 2017. Subjective pt resting at bedside. looks better today than she has been. less discomfort since NGT placed. +BM today and 2 BM's yesterday per patient. Objective Vital Signs: Date Time Temp Pulse Resp B/P (MAP) Pulse Ox O2 Delivery O2 Flow Rate FiO2 12/03/17 16:54 37.1 90 20 138/78 (98) 92 12/03/17 16:50 Room Air 12/03/17 16:05 Room Air 12/03/17 14:52 93 143/101 12/03/17 12:10 Room Air 12/03/17 12:00 37.1 85 20 151/92 (111) 96 Room Air 12/03/17 08:11 Room Air 12/03/17 07:23 37.2 82 20 147/73 (97) 93 Room Air 12/03/17 06:24 85 149/85 12/03/17 04:02 37.2 92 18 137/81 (99) 92 12/03/17 04:00 Room Air 12/03/17 00:27 37.2 86 16 132/87 (102) 92 12/03/17 00:00 Room Air 12/02/17 21:51 90 145/92 12/02/17 20:00 91 Room Air 12/02/17 19:07 88 14 91 Room Air 12/02/17 19:02 37.1 89 16 145/92 (109) 91 Room Air Physical Exam: KENROY drainage (serous), nasogastric drainage (2000cc's bilious past 24 hours) General Appearance: no apparent distress Respiratory/Chest: no respiratory distress, no accessory muscle use Abdomen: + pertinent finding (wound looks good. less red. packing changed. erythema improving. ) Laboratory Results: Results Past 24 Hours Test 12/02/17 20:04 12/03/17 05:45 Range/Units Bedside Glucose 113 70-90 mg/dl White Blood Count 13.83 4.8-10.8 K/uL Red Blood Count 3.62 4.2-5.4 M/uL Hemoglobin 9.4 12.0-16.0 g/dL Hematocrit 30.0 37-47 % Mean Corpuscular Volume 82.9 80-100 fL Mean Corpuscular Hemoglobin 26.0 25-34 pg Mean Corpuscular Hemoglobin Concent 31.3 32-36 g/dl RDW Standard Deviation 45.5 36.4-46.3 fL RDW Coefficient of Variation 15.0 11.5-14.5 % Platelet Count 349 130-400 K/uL Mean Platelet Volume 8.8 7.4-10.4 fL Sodium Level 131 136-145 mmol/L Potassium Level 4.0 3.5-5.1 mmol/L Chloride Level 100 98-107 mmol/L Carbon Dioxide Level 24 21-32 mmol/L Anion Gap 7.0 3-11 mmol/L Blood Urea Nitrogen 6 7-18 mg/dl Creatinine 0.39 0.60-1.20 mg/dl Est Creatinine Clear Calc Drug Dose 140.8 ml/min Estimated GFR () 135.1 Estimated GFR (Non- 116.6 BUN/Creatinine Ratio 16.1 10-20 Random Glucose 119 70-99 mg/dl Calcium Level 8.1 8.5-10.1 mg/dl Phosphorus Level 2.7 2.5-4.9 mg/dl Magnesium Level 2.1 1.8-2.4 mg/dl Assessment & Plan 12/03/16 somewhat improved today keep ngt/tpn will check KUB tomorrow suspect severe ileus may need sbft to better assess at some point POD 6 suspect severe ileus ( anticipated). pt pulled ngt and refused replacement previously. in light of pain, distension, and slightly increased wbc, will obtain ct scan...will have to be without oral contrast as patient will not tolerate it. picc placed. would consider TPN. pt will not be eating normally any time soon. cont antibiotics continue local wound care. KENROY serous. Exploratory Laparotomy Release of Small Bowel Obstruction, Small Bowel Decompression, Enterolysis, esophagogastroduodenoscopy transferred to PCU for post op tachycardia CT chest pending r/o PE IV team trying to establish larger IV anticipate post op ileus, consider PICC for TPN pain control marginal, SHAKE MAKER already at 0.5mg q 10 min + IV Tylenol, will avoid Toradol for now 11/27/17 as above. doing ok. pre-op pain is resolved anticipate post op ileus ( possibly severe). unable to place NGT b/c of prior gastric fundoplication [facility] covering this weekend. POD 6 suspect severe ileus ( anticipated). pt pulled ngt and refused replacement previously. in light of pain, distension, and slightly increased wbc, will obtain ct scan...will have to be without oral contrast as patient will not tolerate it. picc placed. would consider TPN. pt will not be eating normally any time soon. cont antibiotics continue local wound care. KENROY serous. Exploratory Laparotomy Release of Small Bowel Obstruction, Small Bowel Decompression, Enterolysis, esophagogastroduodenoscopy transferred to PCU for post op tachycardia CT chest pending r/o PE IV team trying to establish larger IV anticipate post op ileus, consider PICC for TPN pain control marginal, SHAKE MAKER already at 0.5mg q 10 min + IV Tylenol, will avoid Toradol for now 11/27/17 as above. doing ok. pre-op pain is resolved anticipate post op ileus ( possibly severe). unable to place NGT b/c of prior gastric fundoplication [facility] covering this weekend.
[2017-12-03] MEDS ORDERED: PIPERACILL/TAZOBAC IV 3.375 GM in DEXTROSE 5% 100ML IV ONE (17:15)
[2017-12-03] MEDS ORDERED: METOPROLOL TARTRATE 1 MG/ML VIAL IV. ONE (20:01)
[2017-12-03] MEDS: MONTELUKAST SOD 10 MG TAB PO SCH (20:39)
[2017-12-04] VITALS: BP 133/84; PULSE 93; TEMP 37.1; O2SAT 92
[2017-12-04] MEDS: LORAZEPAM 1 MG TAB PO PRN ×2 (00:50→19:02)
[2017-12-04] MEDS: METOCLOPRAMIDE HCL INJ 5 MG/ML 2 ML VIAL IV SCH ×5 (00:50→23:46)
[2017-12-04] MEDS: HYDROmorphone INJ 1 MG/ML SYR IV PRN ×11 (00:51→23:19)
[2017-12-04] MEDS: PIPERACILL/TAZOBAC IV 3.375 GM in DEXTROSE 5% 100ML 100 ML IV SCH ×3 (02:38→20:38)
[2017-12-04] MEDS: ONDANSETRON INJ 2 MG/ML 2 ML VIAL IV PRN (04:24)
[2017-12-04 06:11] LABS: HEMATOCRIT 33.5 % (37-47); HEMOGLOBIN 10.8 g/dL (12.0-16.0); MEAN CELL VOLUME 81.5 fL (80-100); MEAN CORPUSCULAR HEMOGLOBIN 26.3 pg (25-34); MEAN CORPUSCULAR HGB CONC 32.2 g/dl (32-36); MEAN PLATELET VOLUME 8.8 fL (7.4-10.4); PLATELET COUNT 393 K/uL (130-400); RED CELL DISTRIBUTION WIDTH CV 14.8 % (11.5-14.5); RED CELL DISTRIBUTION WIDTH SD 44.1 fL (36.4-46.3); WHITE BLOOD COUNT 14.45 K/uL (4.8-10.8)
--- NOTE | 2017-12-04 06:25 | Progress Note ---
Internal Med Progress Note Date of Service: Dec 04, 2017. Provider Documentation: Made aware by RN of coffee ground drainage from NG tube. Usual left-sided abd pain AP UGIB IV PPI for now Serial H&H GI consult RE UGIB (patient known to Dr. Philip) Will relay to AM provider. Vital Signs: Date Time Temp Pulse Resp B/P (MAP) Pulse Ox O2 Delivery O2 Flow Rate FiO2 12/04/17 07:55 36.9 117 16 144/96 (112) 91 Room Air 12/04/17 00:40 Room Air 12/04/17 00:00 37.1 93 16 133/84 (100) 92 Room Air 12/03/17 22:11 37.1 88 16 139/87 (104) 94 Room Air 12/03/17 20:43 36.8 105 20 138/96 (110) 93 Room Air 12/03/17 20:27 100 138/78 12/03/17 16:54 37.1 90 20 138/78 (98) 92 12/03/17 16:50 Room Air 12/03/17 16:05 Room Air 12/03/17 14:52 93 143/101 12/03/17 12:10 Room Air 12/03/17 12:00 37.1 85 20 151/92 (111) 96 Room Air Lab Results: Results Past 24 Hours Test 12/03/17 18:17 12/04/17 00:03 12/04/17 05:50 12/04/17 05:56 Range/Units Bedside Glucose 121 133 129 70-90 mg/dl White Blood Count 14.45 4.8-10.8 K/uL Red Blood Count 4.11 4.2-5.4 M/uL Hemoglobin 10.8 12.0-16.0 g/dL Hematocrit 33.5 37-47 % Mean Corpuscular Volume 81.5 80-100 fL Mean Corpuscular Hemoglobin 26.3 25-34 pg Mean Corpuscular Hemoglobin Concent 32.2 32-36 g/dl RDW Standard Deviation 44.1 36.4-46.3 fL RDW Coefficient of Variation 14.8 11.5-14.5 % Platelet Count 393 130-400 K/uL Mean Platelet Volume 8.8 7.4-10.4 fL Sodium Level 131 136-145 mmol/L Potassium Level 3.7 3.5-5.1 mmol/L Chloride Level 95 98-107 mmol/L Carbon Dioxide Level 26 21-32 mmol/L Anion Gap 11.0 3-11 mmol/L Blood Urea Nitrogen 12 7-18 mg/dl Creatinine 0.36 0.60-1.20 mg/dl Est Creatinine Clear Calc Drug Dose 148.6 ml/min Estimated GFR () 138.7 Estimated GFR (Non- 119.7 BUN/Creatinine Ratio 32.9 10-20 Random Glucose 143 70-99 mg/dl Calcium Level 8.8 8.5-10.1 mg/dl Phosphorus Level 4.5 2.5-4.9 mg/dl Magnesium Level 2.3 1.8-2.4 mg/dl Albumin 2.7 3.4-5.0 gm/dl Triglycerides Level 104 0-150 mg/dl Test 12/04/17 06:35 Range/Units Gastric Fluid pH 4 Gastric Fluid Occult Blood POS NEG
[2017-12-04 06:45] LABS: ALBUMIN 2.7 gm/dl (3.4-5.0); CALCIUM 8.8 mg/dl (8.5-10.1); CREATININE 0.36 mg/dl (0.60-1.20); POTASSIUM 3.7 mmol/L (3.5-5.1)
[2017-12-04] MEDS ORDERED: PANTOprazole INJ 80 MG in SYRINGE 0 ML IV ONE (06:45)
[2017-12-04 06:48] LABS: PHOSPHORUS 4.5 mg/dl (2.5-4.9)
[2017-12-04] MEDS: FORMOTEROL FUMA NEBULIZER SOLN 20 MCG/2 ML VIAL INH SCH ×2 (07:40→21:26)
--- NOTE | 2017-12-04 07:49 | DIAGNOSTIC IMAGING REPORT ---
KUB CLINICAL HISTORY: Small bowel obstruction COMPARISON STUDY: 11/25/2017 FINDINGS: There are extensive postsurgical changes present within the spine and pelvis. A surgical drain is visualized within the pelvis. There are anterior skin portia present. There is a nasogastric tube with its tip projected over the gastric cardia. There are suspected bilateral pleural effusions. There is gas present within colon and small bowel. There is a dilated right upper quadrant small bowel loop. IMPRESSION: Persistent dilated right upper quadrant small bowel loop. Electronically signed by: Sukhdev Crenshaw M.D. 12/04/2017 7:47 AM Dictated Date/Time: 12/04/2017 7:46 AM
[2017-12-04 07:55] VITALS: BP 144/96; PULSE 117; TEMP 36.9; O2SAT 91
[2017-12-04] MEDS: PANTOprazole INJ 40 MG in DEXTROSE 5% 100ML 100 ML IV SCH ×3 (07:58→18:47)
[2017-12-04] MEDS: CHECK FENTANYL PATCH PLACEMENT SCH ×4 (08:00→23:47)
[2017-12-04] MEDS: BOOST BREEZE NUTRITION DRINK 1 BOX PO SCH ×2 (08:21→16:35)
[2017-12-04] MEDS: ARIPIprazole TAB 15 MG TAB PO SCH (08:22)
[2017-12-04] MEDS: BACLOFEN 10 MG TAB PO SCH ×3 (08:24→20:46)
[2017-12-04] MEDS: GABAPENTIN 300 MG CAP PO SCH ×3 (08:24→20:44)
[2017-12-04] MEDS: CETIRIZINE HCL 10 MG TAB PO SCH (08:25)
[2017-12-04] MEDS: LUBIPROSTONE 8 MCG CAP PO SCH ×2 (08:31→21:00)
[2017-12-04] MEDS: MULTIVITAMIN TAB PO SCH (08:36)
[2017-12-04] MEDS: CEROVITE ADV FORMULA TAB PO SCH (08:36)
[2017-12-04] MEDS: CALCIUM 600MG + VIT D 400 IU TAB PO SCH (08:37)
[2017-12-04] MEDS: BISACODYL 10 MG SUPP PR SCH ×2 (08:42→21:14)
[2017-12-04] MEDS ORDERED: METOPROLOL SUCC 25MG EXT REL TAB PO SCH (09:00)
[2017-12-04] MEDS ORDERED: METOPROLOL TARTRATE 25 MG TAB PO ONE (10:50)
--- NOTE | 2017-12-04 11:05 | Gastrointestinal Consultation ---
Gastrointestinal Consultation Date of Consultation: Dec 04, 2017 Attending Physician: Ruben Consulting Physician: Lacy Reason for Consultation: coffee ground output History of Present Illness Patient is a 57 year old female w/ history of gastroparesis, COPD, chronic pain , constipation, history of SBO who was admitted through the ED on 11/15/17 for abdominal pain. Imaging on arrival was concerning for distal SBO, the pt was evaluated by surgery, started on conservative management. As pt failed to improve, pt underwent ex-lap for worsening abd pain w/ concern for pneumatosis on 11/26/17. Release of Small Bowel Obstruction w/ small bowel decompression. Pt re-developed abd pain, nausea. NG was unsuccesful on numerous attempts, finally placed last evening w/ output. There was question of coffee ground output. On exam this AM, output was bilious w/o evidence of BRB, there was trace coffee ground material in NG tubing. She is hypertensive, tachycardiac w/ stable H&H on recheck this AM and around noon. CT ABD/Pelvis 12/02/17: Persistent small bowel obstructive pattern No evidence of free intraperitoneal air. No evidence of portal venous gas Interval surgery with postsurgical changes involve the abdominal wall and placement of a right lower quadrant drain Bibasilar pulmonary opacities, likely atelectatic although a superimposed pneumonia could appear similar Stable mildly enlarged right inguinal lymph nodes CT ABD/Pelvis 11/15/17: Distal small bowel obstructive change of uncertain etiology.No evidence for colonic distention. No evidence for abscess or collection. Postoperative changes throughout the lumbar sacral spine and bony pelvis and right hip as described. 4 cm fluid pocket lateral to the right hip similar to and/or perhaps slightly increased in prominence compared to the prior study. This may relate to a postprocedural seroma Past Medical/Surgical History Medical Problems: (1) Abdominal pain Status: Acute (2) Acute bronchitis Status: Acute (3) Anemia Status: Acute (4) Anxiety Status: Chronic (5) Bipolar disorder Status: Chronic (6) Cellulitis Status: Acute (7) Cervicalgia Status: Chronic (8) Fever Status: Acute (9) Hip pain Status: Acute (10) Hyponatremia Status: Acute (11) Infected finger Status: Acute (12) Influenza-like symptoms Status: Acute (13) Intertrochanteric fracture of right hip Status: Acute (14) Left leg swelling Status: Acute (15) Leg pain, right Status: Acute (16) Leg pain, right Status: Acute (17) Lumbago Status: Chronic (18) Nausea Status: Acute (19) Postoperative wound infection of right hip Status: Acute (20) PTSD (post-traumatic stress disorder) Status: Chronic (21) Right hip pain Status: Acute (22) Sciatic leg pain Status: Acute (23) Subcapital fracture of right hip Status: Acute 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, 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, gastroparesis, history c.diff PSVT s/p ablation, COPD, anxiety, mood disorder, chronic pain, ,history of MRSA, history alcohol abuse, constipation, SBO Past Surgical History: ex-lap x 2, Tubal ligation, tonsillectomy, fundoplasty, bowel surgery and hip surgery, EGD, Colon Family History Diabetes mellitus FATHER GRANDMOTHER FH: colon cancer GRANDMOTHER Gallbladder disease Heart disease Hypertension FATHER MOTHER Kidney disease Kidney stones Social History Smoking Status: Current Every Day Smoker Alcohol Use: none Drug Use: other Marital Status: Housing Status: lives with family Occupation Status: disabled Allergies Coded Allergies: Hydroxyzine (Verified Allergy, Severe, THROAT CONSTRICTS/CAN NOT VOID, ) Clarithromycin (Verified Adverse Reaction, Intermediate, vomiting, ) Lisinopril (Verified Adverse Reaction, Mild, Cough, 11/15/17) Reported by PT. Chlorpromazine (Verified Adverse Reaction, Unknown, LIGHTHEADED DIZZY, ) Current Medications Home Meds and Scripts Medications Dose Route/Sig Max Daily Dose Days Date Category Dose Instructions Lamictal (Lamotrigine) 150 Mg Tab 125 Mg PO BID 11/15/17 Rx Buspirone Hcl 10 Mg Tab 10 Mg PO BID 11/15/17 Rx Neurontin (Gabapentin) 300 Mg Cap 300 Mg PO TID 10/12/17 Reported Amitiza (Lubiprostone) 24 Mcg Cap 24 Mcg PO BID 09/28/17 Reported Flexeril (Cyclobenzaprine Hcl) 10 Mg Tab 10 Mg PO TID PRN 07/27/17 Reported Perforomist (Formoterol Fumarate) 20 Mcg/2 Ml Nebu 20 Mcg INH PRN 04/21/17 Reported Ocuvite Preservision (Multivitamins/Minerals) 1 Tab Tab 1 Tab PO DAILY 04/21/17 Reported Pepcid (Famotidine) 40 Mg Tab 40 Mg PO DAILY 04/21/17 Reported Oscal 500/200 D-3 (Calcium Carbonate-Vitamin D) 1 Tab Tab 1 Tab PO DAILY 04/21/17 Reported Lorazepam 1 Mg Tab 1 Mg PO BID PRN 30 04/21/17 Reported Ventolin Hfa (Albuterol) 60 Puffs/5400 Mcg Aers 90 Mcg INH PRN 04/21/17 Reported Micro-K Ext Rel (Potassium Chloride) 10 Meq Capcr 10 Meq PO DAILY PRN 03/27/17 Reported ONLY TAKES WHEN TAKING LASIX FOR SWELLING Miralax (Polyethylene Glycol 3350) 1 Pow 17 Gm PO DAILY PRN 03/27/17 Reported Lioresal (Baclofen) 10 Mg Tab 10 Mg PO TID 03/27/17 Reported Abilify (Aripiprazole) 30 Mg Tab 30 Mg PO QAM 02/10/17 Reported Multivitamin (Multivitamins) Tab 1 Tab PO QAM 02/10/17 Reported Zyrtec (Cetirizine HCl) 10 Mg Tab 10 Mg PO QAM 02/10/17 Reported Zofran (Ondansetron HCl) 8 Mg Tab 8 Mg PO Q6H PRN 02/10/17 Reported Singulair (Montelukast Sodium) 10 Mg Tab 10 Mg PO HS 02/10/17 Reported Toprol Xl (Metoprolol Succinate) 25 Mg Tabcr 25 Mg PO QAM 02/10/17 Reported Lasix (Furosemide) 20 Mg Tab 20 Mg PO DAILY PRN 02/10/17 Reported Sulindac 150 Mg Tab 150 Mg PO BID 02/10/17 Reported Reglan (Metoclopramide Hcl) 5 Mg Tab 5 Mg PO ACHS 02/10/17 Reported Duragesic (Fentanyl) 25 Mcg/Hr Dis 25 Mcg TD Q72H 02/10/17 Reported Review of Systems Constitutional: No fever, No chills Respiratory: No cough Cardiac: No chest pain Abdomen: + pain, + nausea, + GI bleeding (trace coffee ground output in NG tubing), No vomiting, No diarrhea, No constipation Physical Exam Date Time Temp Pulse Resp B/P (MAP) Pulse Ox O2 Delivery O2 Flow Rate FiO2 12/04/17 10:19 Room Air 12/04/17 07:55 36.9 117 16 144/96 (112) 91 Room Air 12/04/17 00:40 Room Air 12/04/17 00:00 37.1 93 16 133/84 (100) 92 Room Air 12/03/17 22:11 37.1 88 16 139/87 (104) 94 Room Air 12/03/17 20:43 36.8 105 20 138/96 (110) 93 Room Air 12/03/17 20:27 100 138/78 12/03/17 16:54 37.1 90 20 138/78 (98) 92 12/03/17 16:50 Room Air 12/03/17 16:05 Room Air 12/03/17 14:52 93 143/101 12/03/17 12:10 Room Air 12/03/17 12:00 37.1 85 20 151/92 (111) 96 Room Air General Appearance: no apparent distress Eyes: PERRL ENT: hearing grossly normal Neck: supple Respiratory/Chest: lungs clear Cardiovascular: regular rate, rhythm, no edema Abdomen: soft, + distended (mild distention), + tenderness (generalized), + pertinent finding Neurologic/Psych: alert, normal mood/affect, oriented x 3 Skin: normal color Laboratory Results Last 24 Hours Test 12/03/17 18:17 12/04/17 00:03 12/04/17 05:50 12/04/17 05:56 Bedside Glucose 121 mg/dl 133 mg/dl 129 mg/dl White Blood Count 14.45 K/uL Red Blood Count 4.11 M/uL Hemoglobin 10.8 g/dL Hematocrit 33.5 % Mean Corpuscular Volume 81.5 fL Mean Corpuscular Hemoglobin 26.3 pg Mean Corpuscular Hemoglobin Concent 32.2 g/dl RDW Standard Deviation 44.1 fL RDW Coefficient of Variation 14.8 % Platelet Count 393 K/uL Mean Platelet Volume 8.8 fL Sodium Level 131 mmol/L Potassium Level 3.7 mmol/L Chloride Level 95 mmol/L Carbon Dioxide Level 26 mmol/L Anion Gap 11.0 mmol/L Blood Urea Nitrogen 12 mg/dl Creatinine 0.36 mg/dl Est Creatinine Clear Calc Drug Dose 148.6 ml/min Estimated GFR () 138.7 Estimated GFR (Non- 119.7 BUN/Creatinine Ratio 32.9 Random Glucose 143 mg/dl Calcium Level 8.8 mg/dl Phosphorus Level 4.5 mg/dl Magnesium Level 2.3 mg/dl Albumin 2.7 gm/dl Triglycerides Level 104 mg/dl Test 12/04/17 06:35 Gastric Fluid pH 4 Gastric Fluid Occult Blood POS Impression Patient is a 57 year old female w/ persist SBO despite ex-lap on 11/26/17 for decompression - NG was replaced after numerous failed attempts w/ concern of coffee ground output in the NG tube. Pt is hypertensive, tachycardiac w/ stable H&H Plan - Trend H&H - PPI BID - Monitor output - No plan for EGD as pts symptoms most likely secondary to NG insertion trauma - If there are any acute changes, questions, concerns please call. GI to sign off. Attg add: I interviewed and examined pt, reviewed and labs. Pt without convincing evidence of sig UGIB - her hgb is stable. She appears to have a bowel obstuction by CT on 12/02 - defer management of SBO vs ileus (including management of meds inclu Reglan and Amitiza) to surgery service.
[2017-12-04 12:20] VITALS: BP 143/87; PULSE 117
[2017-12-04 12:30] LABS: HEMOGLOBIN 11.2 g/dL (12.0-16.0)
--- NOTE | 2017-12-04 13:24 | Surgery Progress Note ---
Surgery Progress Note Date of Service Dec 04, 2017. Subjective + bowel movement (today) doing reasonably well. abdominal distension decreased +bm continue NGT. may consider oral contrast down NGT soon to better evaluate cont tpn wbc slowly climbing. ? source. wound looks better. lopez removed today-- recheck tomorrow. Objective Vital Signs: Date Time Temp Pulse Resp B/P (MAP) Pulse Ox O2 Delivery O2 Flow Rate FiO2 12/04/17 12:20 117 143/87 (105) 12/04/17 10:19 Room Air 12/04/17 07:55 36.9 117 16 144/96 (112) 91 Room Air 12/04/17 00:40 Room Air 12/04/17 00:00 37.1 93 16 133/84 (100) 92 Room Air 12/03/17 22:11 37.1 88 16 139/87 (104) 94 Room Air 12/03/17 20:43 36.8 105 20 138/96 (110) 93 Room Air 12/03/17 20:27 100 138/78 12/03/17 16:54 37.1 90 20 138/78 (98) 92 12/03/17 16:50 Room Air 12/03/17 16:05 Room Air 12/03/17 14:52 93 143/101 Physical Exam: KENROY drainage (minimal), nasogastric drainage (1000), urine output (750) Abdomen: non distended, soft Incision(s): clean, dry Laboratory Results: Results Past 24 Hours Test 12/03/17 18:17 12/04/17 00:03 12/04/17 05:50 12/04/17 05:56 Range/Units Bedside Glucose 121 133 129 70-90 mg/dl White Blood Count 14.45 4.8-10.8 K/uL Red Blood Count 4.11 4.2-5.4 M/uL Hemoglobin 10.8 12.0-16.0 g/dL Hematocrit 33.5 37-47 % Mean Corpuscular Volume 81.5 80-100 fL Mean Corpuscular Hemoglobin 26.3 25-34 pg Mean Corpuscular Hemoglobin Concent 32.2 32-36 g/dl RDW Standard Deviation 44.1 36.4-46.3 fL RDW Coefficient of Variation 14.8 11.5-14.5 % Platelet Count 393 130-400 K/uL Mean Platelet Volume 8.8 7.4-10.4 fL Sodium Level 131 136-145 mmol/L Potassium Level 3.7 3.5-5.1 mmol/L Chloride Level 95 98-107 mmol/L Carbon Dioxide Level 26 21-32 mmol/L Anion Gap 11.0 3-11 mmol/L Blood Urea Nitrogen 12 7-18 mg/dl Creatinine 0.36 0.60-1.20 mg/dl Est Creatinine Clear Calc Drug Dose 148.6 ml/min Estimated GFR () 138.7 Estimated GFR (Non- 119.7 BUN/Creatinine Ratio 32.9 10-20 Random Glucose 143 70-99 mg/dl Calcium Level 8.8 8.5-10.1 mg/dl Phosphorus Level 4.5 2.5-4.9 mg/dl Magnesium Level 2.3 1.8-2.4 mg/dl Albumin 2.7 3.4-5.0 gm/dl Triglycerides Level 104 0-150 mg/dl Test 12/04/17 06:35 12/04/17 12:13 Range/Units Gastric Fluid pH 4 Gastric Fluid Occult Blood POS NEG Hemoglobin 11.2 12.0-16.0 g/dL Hematocrit 35.0 37-47 % Assessment & Plan Exploratory Laparotomy Release of Small Bowel Obstruction, Small Bowel Decompression, Enterolysis, esophagogastroduodenoscopy Post-op ileus some returning bowel function however has moderate NG output and XR with some dilated small bowel will continue NG, can have water daily packing changes, wound is dry, does not appear as source of rising WBCs lopez removed this AM seen with Dr. Coello
[2017-12-04 15:04] VITALS: BP 129/87; PULSE 94; TEMP 36.6; O2SAT 94
[2017-12-04] MEDS ORDERED: CUSTOM CENTRAL PN 1 BAG IV SCH (16:00)
[2017-12-04 19:12] LABS: HEMATOCRIT 31.8 % (37-47); HEMOGLOBIN 10.1 g/dL (12.0-16.0)
--- NOTE | 2017-12-04 19:32 | Progress Note ---
Medicine Progress Note Date & Time of Visit: Dec 04, 2017 at 19:16. Subjective Pt was seen and examined Lying in bed with no distress Pt said that she continues to have abdominal pain She said that she had a small bowel movement yesterday NGT with continuous drainage, overnight team noting coffee ground material coming from NGT Denies any fever, palpitation and SOB Objective Last 8 Hrs Date Time Temp Pulse Resp B/P (MAP) Pulse Ox O2 Delivery O2 Flow Rate FiO2 12/04/17 15:04 36.6 94 16 129/87 (101) 94 Room Air 12/04/17 12:20 117 143/87 (105) Physical Exam: General- no acute distress Head- atraumatic Eyes- PERRL, EOMI ENT- NGT in placed Neck- supple, no JVD Lungs- clear to auscultation Heart- regular rhythm; no murmur Abdomen- +distension, +tenderness and drainage around the incision area Extremities- no calf tenderness Neuro- alert, oriented x 3; PERRL, EOMI; no facial palsy Skin- warm & dry Laboratory Results: Last 24 Hours Test 12/04/17 00:03 12/04/17 05:50 12/04/17 05:56 12/04/17 06:35 Bedside Glucose 133 mg/dl 129 mg/dl White Blood Count 14.45 K/uL Red Blood Count 4.11 M/uL Hemoglobin 10.8 g/dL Hematocrit 33.5 % Mean Corpuscular Volume 81.5 fL Mean Corpuscular Hemoglobin 26.3 pg Mean Corpuscular Hemoglobin Concent 32.2 g/dl RDW Standard Deviation 44.1 fL RDW Coefficient of Variation 14.8 % Platelet Count 393 K/uL Mean Platelet Volume 8.8 fL Sodium Level 131 mmol/L Potassium Level 3.7 mmol/L Chloride Level 95 mmol/L Carbon Dioxide Level 26 mmol/L Anion Gap 11.0 mmol/L Blood Urea Nitrogen 12 mg/dl Creatinine 0.36 mg/dl Est Creatinine Clear Calc Drug Dose 148.6 ml/min Estimated GFR () 138.7 Estimated GFR (Non- 119.7 BUN/Creatinine Ratio 32.9 Random Glucose 143 mg/dl Calcium Level 8.8 mg/dl Phosphorus Level 4.5 mg/dl Magnesium Level 2.3 mg/dl Albumin 2.7 gm/dl Triglycerides Level 104 mg/dl Gastric Fluid pH 4 Gastric Fluid Occult Blood POS Test 12/04/17 12:13 12/04/17 19:01 Hemoglobin 11.2 g/dL 10.1 g/dL Hematocrit 35.0 % 31.8 % Assessment & Plan SMALL BOWEL OBSTRUCTION POST ILEUS S/P Exploratory Laparotomy Release of Small Bowel Obstruction, Small Bowel Decompression, Enterolysis, esophagogastroduodenoscopy on 11/[address] Coello Continue to have abdominal tenderness Incision drainage from the [facility] Surgery on board Elevated WBC Starting on Unasyn Will put NPO Consider to start on TPN as per surgery team Dilaudid increased to 1 mg q3h continue fentanyl patch Added Phenergan for the nausea will get a picc line for the tpn 12/04 Abdominal is distended and tender S/P Exploratory Laparotomy Release of Small Bowel Obstruction, Small Bowel Decompression, Enterolysis, esophagogastroduodenoscopy on 11/[address] Coello Repeat CT abd showed Persistent small bowel obstructive pattern Abd xray done today showed Persistent dilated right upper quadrant small bowel loop Continue NGT with low suction Continue Dilaudid for pain WBC elevated Tolerated Zosyn No sign of coffee ground from the NGT (might be related to trauma) Continue monitor hgb GI consulted Continue PPI BID Continue TPN SINUS TACHYCARDIA possible related to pain and not being able to take usual Metoprolol XL 25mg daily Metoprolol succinate changed to metoprolol tartrate because it can crush and be given to the NGT continue monitor HR RIGHT THIGH CELLULITIS cx no growth antibiotics was discontinued ELECTROLYTES IMBALANCE K stable Na dropped to 131 Monitor electrolytes Hx of PSVT s/p ablation on Toprol xl changed to metoprolol tartrate BID Stable COPD stable Chronic pain on fentanyl patch On dilaudid q1hr prn DVT PROPHYLAXIS SCDs, ambulation CODE STATUS FULL CODE Consultants: Gastro Surgery Current Inpatient Medications: Current Inpatient Medications Medications (Trade) Dose Ordered Sig/Jennifer Route Start Time Stop Time Status Last Admin Dose Admin Ondansetron HCl (Zofran Inj) 4 mg Q6H PRN IV 11/15/17 09:45 12/15/17 09:44 12/04/17 04:24 4 MG Albuterol (Ventolin Hfa Inhaler) 1 puffs Q4 PRN INH 11/15/17 09:45 12/15/17 09:44 Aripiprazole (Abilify Tab) 30 mg QAM PO 11/16/17 09:00 12/16/17 08:59 12/04/17 08:22 30 MG Baclofen (Lioresal Tab) 10 mg TID PO 11/15/17 14:00 12/15/17 13:59 Future hold 12/04/17 13:29 10 MG Cetirizine HCl (zyrTEC TAB) 10 mg QAM PO 11/16/17 09:00 12/16/17 08:59 12/04/17 08:25 10 MG Cyclobenzaprine HCl (Flexeril Tab) 10 mg TID PRN PO 11/15/17 09:45 12/15/17 09:44 Future hold 11/25/17 21:57 10 MG Gabapentin (Neurontin Cap) 300 mg TID PO 11/15/17 14:00 12/15/17 13:59 Future hold 12/04/17 13:29 300 MG Lorazepam (Ativan Tab) 1 mg BID PRN PO 11/15/17 09:45 12/15/17 09:44 12/04/17 19:02 1 MG Montelukast Sodium (Singulair Tab) 10 mg HS PO 11/15/17 21:00 12/15/17 20:59 Future hold 12/03/17 20:39 10 MG Ondansetron HCl (Zofran Tab) 8 mg Q6H PRN PO 11/15/17 09:45 12/15/17 09:44 11/25/17 09:42 8 MG Lubiprostone (Amitiza) 24 mcg BID PO 11/15/17 21:00 12/15/17 20:59 Future hold 12/03/17 20:39 24 MCG Metoclopramide HCl (Reglan Inj) 5 mg Q6 IV 11/15/17 14:00 12/15/17 13:59 12/04/17 11:49 5 MG Formoterol Fumarate (Perforomist 20MCG/2ML Neb Soln) 20 mcg BID INH 11/15/17 21:00 12/15/17 20:59 12/02/17 19:05 20 MCG Lamotrigine (Lamictal Tab) 125 mg BID PO 11/15/17 21:00 12/15/17 20:59 Future hold 12/04/17 08:23 125 MG Buspirone HCl (Buspar Tab) 10 mg BID PO 11/15/17 21:00 12/15/17 20:59 Future hold 12/04/17 08:22 10 MG Acetaminophen 650 mg/Empty Bag 65 ml @ 260 mls/hr Q6H PRN IV 11/20/17 00:30 12/20/17 00:29 11/30/17 22:41 260 MLS/HR Zolpidem Tartrate (Ambien Tab) 5 mg HS PRN PO 11/21/17 19:30 12/21/17 19:29 11/27/17 23:32 5 MG Menthol (Nice Brown) 1 brown Q2H PRN PO 11/21/17 19:45 12/21/17 19:44 Multivitamins (Multivitamin Tab) 1 tab QAM PO 11/26/17 09:00 12/26/17 08:59 12/04/17 08:36 1 TAB Multivitamins/ Minerals (Multivitamin W/ Minerals Tab) 1 tab DAILY PO 11/26/17 09:00 12/26/17 08:59 12/04/17 08:36 1 TAB Miscellaneous Information (Order Awaiting Action) 1 ea QS N/A 11/26/17 16:00 12/26/17 15:59 Calcium/Vitamin D (Caltrate Plus Tab) 1 tab DAILY PO 11/26/17 09:00 12/26/17 08:59 12/04/17 08:37 1 TAB Al Hydrox/Mg Hydrox/Simethicone (Maalox Max Susp) 15 ml Q4H PRN PO 11/29/17 20:00 12/15/17 09:44 11/30/17 23:55 15 ML Sodium Chloride ([place] Nasal [place]) 1 sprays PRN PRN NA 11/29/17 23:30 12/29/17 23:29 11/30/17 01:42 1 SPRAYS Enteral Nutritional Formula (Boost Breeze Nutritional Drink) 1 box BID17 PO 11/30/17 17:00 12/30/17 16:59 12/01/17 07:31 1 BOX Fentanyl (Duragesic Patch) 25 mcg Q72H TD 11/30/17 13:30 12/14/17 13:29 12/03/17 14:52 25 MCG Miscellaneous (Fentanyl Patch Remove & Waste) 1 ea Q3D N/A 12/03/17 13:30 01/02/18 13:29 12/03/17 14:50 1 EA Miscellaneous Information (Check Fentanyl Patch Placement) 1 ea QS N/A 11/30/17 16:00 12/30/17 15:59 12/04/17 16:33 1 EA Promethazine HCl 12.5 mg/Sodium Chloride 50.5 ml @ 204 mls/hr Q6H PRN IV 12/01/17 09:45 12/31/17 09:44 12/03/17 20:27 204 MLS/HR Bisacodyl (Dulcolax Supp) 10 mg BID LA 12/01/17 21:00 12/31/17 20:59 12/04/17 08:42 10 MG Heparin Sodium (Porcine) (Heparin 10 Unit/ ml 5 ml Flush) 5 ml PRN PRN FLUSH 12/01/17 15:15 12/31/17 15:14 Ioversol (Optiray 320) 100 ml UD PRN IV 12/02/17 09:30 12/06/17 09:29 Miscellaneous Information (Pharmacy Tpn/ Ppn Consult Active) 1 ea UD PRN N/A 12/02/17 11:15 01/01/18 10:44 Dextrose 1,000 ml @ 0 mls/hr Q0M PRN IV 12/02/17 12:49 01/01/18 12:48 Hydromorphone HCl (Dilaudid Inj) 1 mg Q2HWA PRN IV 12/03/17 10:00 12/06/17 09:59 12/04/17 18:48 1 MG Piperacillin Sod/ Tazobactam Sod 3.375 gm/Dextrose 115 ml @ 28.75 mls/ hr Q8H IV 12/04/17 02:00 12/13/17 13:59 12/04/17 11:14 28.75 MLS/HR Miscellaneous Information (Consult) 1 ea UD PRN N/A 12/03/17 16:00 01/02/18 15:59 Pantoprazole Sodium 40 mg/ Dextrose 110 ml @ 20 mls/hr Q5H IV 12/04/17 08:00 01/03/18 07:59 12/04/17 18:47 20 MLS/HR Nutrition (Parenteral) 0 ml @ 0 mls/hr TODAY@1600 IV 12/04/17 16:00 12/05/17 15:59 12/04/17 16:33 0 MLS/HR Metoprolol Tartrate (Lopressor Tab) 25 mg BID PO 12/04/17 21:00 01/03/18 20:59
--- NOTE | 2017-12-04 20:34 | Progress Note ---
Internal Med Progress Note Date of Service: Dec 04, 2017. Provider Documentation: Made aware by RN of IV access issues. Patient supposed to receive TPN, PPI drip, Zosyn doses. Patient has only a single lumen PICC as per RN. No coffee-ground NGT drainage as per RN. Hg stable at 10-11. Change PPI drip to IV PPI twice a day dosing for now until adequate IV access available. Will relay to AM provider. Vital Signs: Date Time Temp Pulse Resp B/P (MAP) Pulse Ox O2 Delivery O2 Flow Rate FiO2 12/05/17 07:43 94 16 96 Room Air 12/05/17 07:34 36.6 99 19 111/74 (86) 93 Room Air 12/04/17 23:50 Room Air 12/04/17 23:22 36.8 96 14 109/77 (88) 93 Room Air 12/04/17 21:26 96 16 97 Room Air 12/04/17 15:15 Room Air 12/04/17 15:04 36.6 94 16 129/87 (101) 94 Room Air 12/04/17 12:20 117 143/87 (105) 12/04/17 10:19 Room Air Lab Results: Results Past 24 Hours Test 12/04/17 12:13 12/04/17 12:50 12/04/17 17:50 12/04/17 19:01 Range/Units Hemoglobin 11.2 10.1 12.0-16.0 g/dL Hematocrit 35.0 31.8 37-47 % Bedside Glucose 130 107 70-90 mg/dl Test 12/04/17 23:43 12/05/17 05:51 12/05/17 06:27 Range/Units Bedside Glucose 132 123 70-90 mg/dl White Blood Count 11.94 4.8-10.8 K/uL Red Blood Count 3.78 4.2-5.4 M/uL Hemoglobin 9.8 12.0-16.0 g/dL Hematocrit 31.1 37-47 % Mean Corpuscular Volume 82.3 80-100 fL Mean Corpuscular Hemoglobin 25.9 25-34 pg Mean Corpuscular Hemoglobin Concent 31.5 32-36 g/dl RDW Standard Deviation 45.9 36.4-46.3 fL RDW Coefficient of Variation 15.2 11.5-14.5 % Platelet Count 338 130-400 K/uL Mean Platelet Volume 9.0 7.4-10.4 fL Sodium Level 134 136-145 mmol/L Potassium Level 4.2 3.5-5.1 mmol/L Chloride Level 101 98-107 mmol/L Carbon Dioxide Level 21 21-32 mmol/L Anion Gap 12.0 3-11 mmol/L Blood Urea Nitrogen 17 7-18 mg/dl Creatinine 0.49 0.60-1.20 mg/dl Est Creatinine Clear Calc Drug Dose 111.0 ml/min Estimated GFR () 125.3 Estimated GFR (Non- 108.2 BUN/Creatinine Ratio 35.1 10-20 Random Glucose 128 70-99 mg/dl Calcium Level 9.1 8.5-10.1 mg/dl Phosphorus Level 4.7 2.5-4.9 mg/dl Magnesium Level 2.2 1.8-2.4 mg/dl Triglycerides Level 97 0-150 mg/dl
[2017-12-04] MEDS: MONTELUKAST SOD 10 MG TAB PO SCH (20:45)
[2017-12-04] MEDS: METOPROLOL TARTRATE 25 MG TAB PO SCH (20:45)
[2017-12-04] MEDS: PANTOprazole INJ 80 MG in SYRINGE 0 ML IV SCH (21:04)
[2017-12-04 21:26] VITALS: PULSE 96; O2SAT 97
[2017-12-04 23:22] VITALS: BP 109/77; PULSE 96; TEMP 36.8; O2SAT 93
[2017-12-05] MEDS: HYDROmorphone INJ 1 MG/ML SYR IV PRN ×10 (01:24→23:28)
[2017-12-05] MEDS: PIPERACILL/TAZOBAC IV 3.375 GM in DEXTROSE 5% 100ML 100 ML IV SCH ×3 (03:48→20:30)
[2017-12-05] MEDS: METOCLOPRAMIDE HCL INJ 5 MG/ML 2 ML VIAL IV SCH (05:57)
[2017-12-05 07:23] LABS: HEMATOCRIT 31.1 % (37-47); HEMOGLOBIN 9.8 g/dL (12.0-16.0); MEAN CELL VOLUME 82.3 fL (80-100); MEAN CORPUSCULAR HEMOGLOBIN 25.9 pg (25-34); MEAN CORPUSCULAR HGB CONC 31.5 g/dl (32-36); PLATELET COUNT 338 K/uL (130-400); RED CELL DISTRIBUTION WIDTH CV 15.2 % (11.5-14.5); RED CELL DISTRIBUTION WIDTH SD 45.9 fL (36.4-46.3); WHITE BLOOD COUNT 11.94 K/uL (4.8-10.8)
[2017-12-05] MEDS: FORMOTEROL FUMA NEBULIZER SOLN 20 MCG/2 ML VIAL INH SCH ×2 (07:23→20:45)
[2017-12-05 07:34] VITALS: BP 111/74; PULSE 99; TEMP 36.6; O2SAT 93
[2017-12-05 07:43] VITALS: PULSE 94; O2SAT 96
[2017-12-05] MEDS: CHECK FENTANYL PATCH PLACEMENT SCH ×2 (07:56→16:01)
[2017-12-05 08:01] LABS: CALCIUM 9.1 mg/dl (8.5-10.1); CREATININE 0.49 mg/dl (0.60-1.20); PHOSPHORUS 4.7 mg/dl (2.5-4.9); POTASSIUM 4.2 mmol/L (3.5-5.1)
[2017-12-05] MEDS: METOPROLOL TARTRATE 25 MG TAB PO SCH ×2 (08:04→20:41)
[2017-12-05] MEDS: CALCIUM 600MG + VIT D 400 IU TAB PO SCH (08:04)
[2017-12-05] MEDS: CEROVITE ADV FORMULA TAB PO SCH (08:06)
[2017-12-05] MEDS: MULTIVITAMIN TAB PO SCH (08:08)
[2017-12-05] MEDS: CETIRIZINE HCL 10 MG TAB PO SCH (08:09)
[2017-12-05] MEDS: GABAPENTIN 300 MG CAP PO SCH ×3 (08:09→20:40)
[2017-12-05] MEDS: ARIPIprazole TAB 15 MG TAB PO SCH (08:23)
[2017-12-05] MEDS: LUBIPROSTONE 8 MCG CAP PO SCH ×4 (08:23→21:00)
[2017-12-05] MEDS: BOOST BREEZE NUTRITION DRINK 1 BOX PO SCH ×3 (08:30→16:51)
[2017-12-05] MEDS: BACLOFEN 10 MG TAB PO SCH ×3 (08:31→20:41)
--- NOTE | 2017-12-05 09:17 | DIAGNOSTIC IMAGING REPORT ---
[facility] CLINICAL HISTORY: Small bowel obstruction. FINDINGS: 2 AP supine abdominal radiographs are compared to study date 12/04/2017 and correlated with abdominal CT dated 12/02/2017. An enteric tube projection of the proximal stomach. The side holes are located above the diaphragm. There is evidence of persistent small bowel obstruction, similar appearance to yesterday. No evidence of intraperitoneal free air is seen on these supine images. The skeletal structures are osteopenic. There are postoperative changes from extensive lumbosacral spinal fusion, as well as buttress plate repair of the right bony pelvis. Posttraumatic change is also seen in the left hemipelvis. There are healed right-sided rib fractures. A surgical drain is present in the pelvis. Skin clips are identified. IMPRESSION: 1. An enteric tube projects over the proximal stomach. The side holes are above the diaphragm. This should likely be advanced. 2. Persistent small bowel obstruction. Electronically signed by: Jeffry Colunga M.D. 12/05/2017 9:15 AM Dictated Date/Time: 12/05/2017 9:12 AM
--- NOTE | 2017-12-05 09:44 | Surgery Progress Note ---
Surgery Progress Note Date of Service Dec 05, 2017. Subjective Post OP Day: pt doing ok. denies abdominal pain currently. main c/o is blood draws. no bm overnight. NGT still putting out several hundred cc's/day Objective Vital Signs: Date Time Temp Pulse Resp B/P (MAP) Pulse Ox O2 Delivery O2 Flow Rate FiO2 12/05/17 07:43 94 16 96 Room Air 12/05/17 07:34 36.6 99 19 111/74 (86) 93 Room Air 12/04/17 23:50 Room Air 12/04/17 23:22 36.8 96 14 109/77 (88) 93 Room Air 12/04/17 21:26 96 16 97 Room Air 12/04/17 15:15 Room Air 12/04/17 15:04 36.6 94 16 129/87 (101) 94 Room Air 12/04/17 12:20 117 143/87 (105) 12/04/17 10:19 Room Air General Appearance: no apparent distress Abdomen: non distended, soft Incision(s): clean, dry Laboratory Results: Results Past 24 Hours Test 12/04/17 12:13 12/04/17 12:50 12/04/17 17:50 12/04/17 19:01 Range/Units Hemoglobin 11.2 10.1 12.0-16.0 g/dL Hematocrit 35.0 31.8 37-47 % Bedside Glucose 130 107 70-90 mg/dl Test 12/04/17 23:43 12/05/17 05:51 12/05/17 06:27 Range/Units Bedside Glucose 132 123 70-90 mg/dl White Blood Count 11.94 4.8-10.8 K/uL Red Blood Count 3.78 4.2-5.4 M/uL Hemoglobin 9.8 12.0-16.0 g/dL Hematocrit 31.1 37-47 % Mean Corpuscular Volume 82.3 80-100 fL Mean Corpuscular Hemoglobin 25.9 25-34 pg Mean Corpuscular Hemoglobin Concent 31.5 32-36 g/dl RDW Standard Deviation 45.9 36.4-46.3 fL RDW Coefficient of Variation 15.2 11.5-14.5 % Platelet Count 338 130-400 K/uL Mean Platelet Volume 9.0 7.4-10.4 fL Sodium Level 134 136-145 mmol/L Potassium Level 4.2 3.5-5.1 mmol/L Chloride Level 101 98-107 mmol/L Carbon Dioxide Level 21 21-32 mmol/L Anion Gap 12.0 3-11 mmol/L Blood Urea Nitrogen 17 7-18 mg/dl Creatinine 0.49 0.60-1.20 mg/dl Est Creatinine Clear Calc Drug Dose 111.0 ml/min Estimated GFR () 125.3 Estimated GFR (Non- 108.2 BUN/Creatinine Ratio 35.1 10-20 Random Glucose 128 70-99 mg/dl Calcium Level 9.1 8.5-10.1 mg/dl Phosphorus Level 4.7 2.5-4.9 mg/dl Magnesium Level 2.2 1.8-2.4 mg/dl Triglycerides Level 97 0-150 mg/dl Assessment & Plan 12/05/17 no new changes will obtain a sbft to eval sbo vs psbo vs ileus keep ngt/tpn for now wbc decreased 12/03/16 somewhat improved today keep ngt/tpn will check KUB tomorrow suspect severe ileus may need sbft to better assess at some point POD 6 suspect severe ileus ( anticipated). pt pulled ngt and refused replacement previously. in light of pain, distension, and slightly increased wbc, will obtain ct scan...will have to be without oral contrast as patient will not tolerate it. picc placed. would consider TPN. pt will not be eating normally any time soon. cont antibiotics continue local wound care. KENROY serous. Exploratory Laparotomy Release of Small Bowel Obstruction, Small Bowel Decompression, Enterolysis, esophagogastroduodenoscopy transferred to PCU for post op tachycardia CT chest pending r/o PE IV team trying to establish larger IV anticipate post op ileus, consider PICC for TPN pain control marginal, HISTORICAL GUIDE already at 0.5mg q 10 min + IV Tylenol, will avoid Toradol for now 11/27/17 as above. doing ok. pre-op pain is resolved anticipate post op ileus ( possibly severe). unable to place NGT b/c of prior gastric fundoplication [facility] covering this weekend. 12/03/16 somewhat improved today keep ngt/tpn will check KUB tomorrow suspect severe ileus may need sbft to better assess at some point POD 6 suspect severe ileus ( anticipated). pt pulled ngt and refused replacement previously. in light of pain, distension, and slightly increased wbc, will obtain ct scan...will have to be without oral contrast as patient will not tolerate it. picc placed. would consider TPN. pt will not be eating normally any time soon. cont antibiotics continue local wound care. KENROY serous. Exploratory Laparotomy Release of Small Bowel Obstruction, Small Bowel Decompression, Enterolysis, esophagogastroduodenoscopy transferred to PCU for post op tachycardia CT chest pending r/o PE IV team trying to establish larger IV anticipate post op ileus, consider PICC for TPN pain control marginal, HISTORICAL GUIDE already at 0.5mg q 10 min + IV Tylenol, will avoid Toradol for now 11/27/17 as above. doing ok. pre-op pain is resolved anticipate post op ileus ( possibly severe). unable to place NGT b/c of prior gastric fundoplication [facility] covering this weekend.
[2017-12-05] MEDS: BISACODYL 10 MG SUPP PR SCH ×2 (09:55→21:00)
[2017-12-05] MEDS: ONDANSETRON INJ 2 MG/ML 2 ML VIAL IV PRN (10:29)
[2017-12-05] MEDS: PANTOprazole INJ 80 MG in SYRINGE 0 ML IV SCH ×2 (10:30→21:00)
[2017-12-05] MEDS: METOCLOPRAMIDE HCL INJ 5 MG/ML 2 ML VIAL IV. SCH ×3 (13:29→23:28)
[2017-12-05] MEDS: LORAZEPAM 1 MG TAB PO PRN (13:38)
[2017-12-05 15:31] VITALS: BP 115/73; PULSE 94; TEMP 36.8; O2SAT 96
[2017-12-05] MEDS ORDERED: CUSTOM CENTRAL PN 1 BAG IV SCH (16:00)
--- NOTE | 2017-12-05 18:45 | Progress Note ---
Medicine Progress Note Date & Time of Visit: Dec 05, 2017 at 13:30. Subjective Pt was seen and examined Sitting in chair with no distress with father at bedside Pt said that she feels slightly better today She said that pain control with dilaudid No bowel movement Denies any chest pain, palpitation and SOB Objective Last 8 Hrs Date Time Temp Pulse Resp B/P (MAP) Pulse Ox O2 Delivery O2 Flow Rate FiO2 12/05/17 15:31 36.8 94 16 115/73 (87) 96 Room Air Physical Exam: General- no acute distress Head- atraumatic Eyes- PERRL, EOMI ENT- NGT in placed Neck- supple, no JVD Lungs- clear to auscultation Heart- regular rhythm; no murmur Abdomen- +distension, +tenderness and drainage around the incision area Extremities- no calf tenderness Neuro- alert, oriented x 3; PERRL, EOMI; no facial palsy Skin- warm & dry Laboratory Results: Last 24 Hours Test 12/04/17 19:01 12/04/17 23:43 12/05/17 05:51 12/05/17 06:27 Hemoglobin 10.1 g/dL 9.8 g/dL Hematocrit 31.8 % 31.1 % Bedside Glucose 132 mg/dl 123 mg/dl White Blood Count 11.94 K/uL Red Blood Count 3.78 M/uL Mean Corpuscular Volume 82.3 fL Mean Corpuscular Hemoglobin 25.9 pg Mean Corpuscular Hemoglobin Concent 31.5 g/dl RDW Standard Deviation 45.9 fL RDW Coefficient of Variation 15.2 % Platelet Count 338 K/uL Mean Platelet Volume 9.0 fL Sodium Level 134 mmol/L Potassium Level 4.2 mmol/L Chloride Level 101 mmol/L Carbon Dioxide Level 21 mmol/L Anion Gap 12.0 mmol/L Blood Urea Nitrogen 17 mg/dl Creatinine 0.49 mg/dl Est Creatinine Clear Calc Drug Dose 111.0 ml/min Estimated GFR () 125.3 Estimated GFR (Non- 108.2 BUN/Creatinine Ratio 35.1 Random Glucose 128 mg/dl Calcium Level 9.1 mg/dl Phosphorus Level 4.7 mg/dl Magnesium Level 2.2 mg/dl Triglycerides Level 97 mg/dl Assessment & Plan SMALL BOWEL OBSTRUCTION POST ILEUS S/P Exploratory Laparotomy Release of Small Bowel Obstruction, Small Bowel Decompression, Enterolysis, esophagogastroduodenoscopy on 11/[address] Coello Continue to have abdominal tenderness Incision drainage from the [facility] Surgery on board Elevated WBC Starting on Unasyn Will put NPO Consider to start on TPN as per surgery team Dilaudid increased to 1 mg q3h continue fentanyl patch Added Phenergan for the nausea will get a picc line for the tpn 12/05 Abdominal is distended and tender S/P Exploratory Laparotomy Release of Small Bowel Obstruction, Small Bowel Decompression, Enterolysis, esophagogastroduodenoscopy on 11/[address] Coello Repeat CT abd showed Persistent small bowel obstructive pattern Abd xray showed Persistent small bowel obstruction Continue NGT with low suction Continue Dilaudid for pain WBC trending down Tolerated Zosyn, consider d/c zosyn (was starting for possible No sign of coffee ground from the NGT (might be related to trauma) Continue monitor hgb GI consulted Continue PPI BID Continue TPN SINUS TACHYCARDIA possible related to pain and not being able to take usual Metoprolol XL 25mg daily Metoprolol succinate changed to metoprolol tartrate because it can crush and be given to the NGT continue monitor HR RIGHT THIGH CELLULITIS cx no growth antibiotics was discontinued ELECTROLYTES IMBALANCE K stable Na 134 Monitor electrolytes Hx of PSVT s/p ablation on Toprol xl changed to metoprolol tartrate BID Stable COPD stable Chronic pain on fentanyl patch On dilaudid q1hr prn DVT PROPHYLAXIS SCDs, ambulation CODE STATUS FULL CODE Consultants: Gastro Surgery Current Inpatient Medications: Current Inpatient Medications Medications (Trade) Dose Ordered Sig/Jennifer Route Start Time Stop Time Status Last Admin Dose Admin Ondansetron HCl (Zofran Inj) 4 mg Q6H PRN IV 11/15/17 09:45 12/15/17 09:44 12/05/17 10:29 4 MG Albuterol (Ventolin Hfa Inhaler) 1 puffs Q4 PRN INH 11/15/17 09:45 12/15/17 09:44 Aripiprazole (Abilify Tab) 30 mg QAM PO 11/16/17 09:00 12/16/17 08:59 12/05/17 08:23 30 MG Baclofen (Lioresal Tab) 10 mg TID PO 11/15/17 14:00 12/15/17 13:59 Future hold 12/05/17 13:32 10 MG Cetirizine HCl (zyrTEC TAB) 10 mg QAM PO 11/16/17 09:00 12/16/17 08:59 12/05/17 08:09 10 MG Cyclobenzaprine HCl (Flexeril Tab) 10 mg TID PRN PO 11/15/17 09:45 12/15/17 09:44 Future hold 11/25/17 21:57 10 MG Gabapentin (Neurontin Cap) 300 mg TID PO 11/15/17 14:00 12/15/17 13:59 Future hold 12/05/17 13:32 300 MG Lorazepam (Ativan Tab) 1 mg BID PRN PO 11/15/17 09:45 12/15/17 09:44 12/05/17 13:38 1 MG Montelukast Sodium (Singulair Tab) 10 mg HS PO 11/15/17 21:00 12/15/17 20:59 Future hold 12/04/17 20:45 10 MG Ondansetron HCl (Zofran Tab) 8 mg Q6H PRN PO 11/15/17 09:45 12/15/17 09:44 11/25/17 09:42 8 MG Lubiprostone (Amitiza) 24 mcg BID PO 11/15/17 21:00 12/15/17 20:59 Future hold 12/03/17 20:39 24 MCG Formoterol Fumarate (Perforomist 20MCG/2ML Neb Soln) 20 mcg BID INH 11/15/17 21:00 12/15/17 20:59 12/05/17 07:23 20 MCG Lamotrigine (Lamictal Tab) 125 mg BID PO 11/15/17 21:00 12/15/17 20:59 Future hold 12/05/17 08:25 125 MG Buspirone HCl (Buspar Tab) 10 mg BID PO 11/15/17 21:00 12/15/17 20:59 Future hold 12/05/17 08:30 10 MG Acetaminophen 650 mg/Empty Bag 65 ml @ 260 mls/hr Q6H PRN IV 11/20/17 00:30 12/20/17 00:29 11/30/17 22:41 260 MLS/HR Zolpidem Tartrate (Ambien Tab) 5 mg HS PRN PO 11/21/17 19:30 12/21/17 19:29 11/27/17 23:32 5 MG Menthol (Nice Brown) 1 brown Q2H PRN PO 11/21/17 19:45 12/21/17 19:44 Multivitamins (Multivitamin Tab) 1 tab QAM PO 11/26/17 09:00 12/26/17 08:59 12/04/17 08:36 1 TAB Multivitamins/ Minerals (Multivitamin W/ Minerals Tab) 1 tab DAILY PO 11/26/17 09:00 12/26/17 08:59 12/05/17 08:06 1 TAB Miscellaneous Information (Order Awaiting Action) 1 ea QS N/A 11/26/17 16:00 12/26/17 15:59 Calcium/Vitamin D (Caltrate Plus Tab) 1 tab DAILY PO 11/26/17 09:00 12/26/17 08:59 12/05/17 08:04 1 TAB Al Hydrox/Mg Hydrox/Simethicone (Maalox Max Susp) 15 ml Q4H PRN PO 11/29/17 20:00 12/15/17 09:44 11/30/17 23:55 15 ML Sodium Chloride ([place] Nasal [place]) 1 sprays PRN PRN NA 11/29/17 23:30 12/29/17 23:29 11/30/17 01:42 1 SPRAYS Enteral Nutritional Formula (Boost Breeze Nutritional Drink) 1 box BID17 PO 11/30/17 17:00 12/30/17 16:59 12/01/17 07:31 1 BOX Fentanyl (Duragesic Patch) 25 mcg Q72H TD 11/30/17 13:30 12/14/17 13:29 12/03/17 14:52 25 MCG Miscellaneous (Fentanyl Patch Remove & Waste) 1 ea Q3D N/A 12/03/17 13:30 01/02/18 13:29 12/03/17 14:50 1 EA Miscellaneous Information (Check Fentanyl Patch Placement) 1 ea QS N/A 11/30/17 16:00 12/30/17 15:59 12/05/17 16:01 1 EA Promethazine HCl 12.5 mg/Sodium Chloride 50.5 ml @ 204 mls/hr Q6H PRN IV 12/01/17 09:45 12/31/17 09:44 12/03/17 20:27 204 MLS/HR Bisacodyl (Dulcolax Supp) 10 mg BID MI 12/01/17 21:00 12/31/17 20:59 12/04/17 21:14 10 MG Heparin Sodium (Porcine) (Heparin 10 Unit/ ml 5 ml Flush) 5 ml PRN PRN FLUSH 12/01/17 15:15 12/31/17 15:14 Ioversol (Optiray 320) 100 ml UD PRN IV 12/02/17 09:30 12/06/17 09:29 Miscellaneous Information (Pharmacy Tpn/ Ppn Consult Active) 1 ea UD PRN N/A 12/02/17 11:15 01/01/18 10:44 Dextrose 1,000 ml @ 0 mls/hr Q0M PRN IV 12/02/17 12:49 01/01/18 12:48 Hydromorphone HCl (Dilaudid Inj) 1 mg Q2HWA PRN IV 12/03/17 10:00 12/06/17 09:59 12/05/17 16:55 1 MG Piperacillin Sod/ Tazobactam Sod 3.375 gm/Dextrose 115 ml @ 28.75 mls/ hr Q8H IV 12/04/17 02:00 12/13/17 15:59 12/05/17 03:48 28.75 MLS/HR Miscellaneous Information (Consult) 1 ea UD PRN N/A 12/03/17 16:00 01/02/18 15:59 Metoprolol Tartrate (Lopressor Tab) 25 mg BID PO 12/04/17 21:00 01/03/18 20:59 12/05/17 08:04 25 MG Pantoprazole Sodium 80 mg/ Syringe 20 ml @ 5 mls/min BID IV 12/04/17 21:00 01/03/18 20:59 12/05/17 10:30 5 MLS/MIN Metoclopramide HCl (Reglan Inj) 5 mg Q6 IV. 12/05/17 13:00 01/04/18 12:59 12/05/17 18:13 5 MG Nutrition (Parenteral) 0 ml @ 0 mls/hr TODAY@1600 IV 1/20/18 16:00 12/06/17 15:59 12/05/17 16:01 0 MLS/HR
[2017-12-05] MEDS: MONTELUKAST SOD 10 MG TAB PO SCH (20:41)
[2017-12-05 20:45] VITALS: BP 121/83; PULSE 103; PULSE 104; O2SAT 93
[2017-12-05 23:01] VITALS: BP 110/76; PULSE 90; TEMP 36.6; O2SAT 95
[2017-12-06] MEDS: CHECK FENTANYL PATCH PLACEMENT SCH ×3 (00:07→15:50)
[2017-12-06] MEDS: LORAZEPAM 1 MG TAB PO PRN ×2 (00:08→20:55)
[2017-12-06] MEDS: HYDROmorphone INJ 1 MG/ML SYR IV PRN ×7 (03:44→22:13)
[2017-12-06] MEDS: PIPERACILL/TAZOBAC IV 3.375 GM in DEXTROSE 5% 100ML 100 ML IV SCH ×3 (04:05→20:54)
[2017-12-06] MEDS: METOCLOPRAMIDE HCL INJ 5 MG/ML 2 ML VIAL IV. SCH ×3 (05:44→17:49)
[2017-12-06 06:31] LABS: CALCIUM 9.1 mg/dl (8.5-10.1); CREATININE 0.44 mg/dl (0.60-1.20); PHOSPHORUS 4.3 mg/dl (2.5-4.9); POTASSIUM 4.1 mmol/L (3.5-5.1)
[2017-12-06 07:01] VITALS: PULSE 94; O2SAT 96
[2017-12-06] MEDS: FORMOTEROL FUMA NEBULIZER SOLN 20 MCG/2 ML VIAL INH SCH ×2 (07:01→21:00)
[2017-12-06 07:36] VITALS: BP 120/79; PULSE 96; TEMP 36.6; O2SAT 94
[2017-12-06 08:36] LABS: HEMATOCRIT 30.3 % (37-47); HEMOGLOBIN 9.5 g/dL (12.0-16.0); MEAN CELL VOLUME 82.3 fL (80-100); MEAN CORPUSCULAR HEMOGLOBIN 25.8 pg (25-34); MEAN CORPUSCULAR HGB CONC 31.4 g/dl (32-36); MEAN PLATELET VOLUME 9.2 fL (7.4-10.4); PLATELET COUNT 357 K/uL (130-400); RED CELL DISTRIBUTION WIDTH CV 15.2 % (11.5-14.5); RED CELL DISTRIBUTION WIDTH SD 45.7 fL (36.4-46.3); WHITE BLOOD COUNT 12.45 K/uL (4.8-10.8)
[2017-12-06] MEDS: BISACODYL 10 MG SUPP PR SCH ×3 (08:36→21:30)
[2017-12-06] MEDS: PANTOprazole INJ 80 MG in SYRINGE 0 ML IV SCH ×2 (08:36→20:54)
[2017-12-06] MEDS: CALCIUM 600MG + VIT D 400 IU TAB PO SCH ×2 (08:37→09:00)
[2017-12-06] MEDS: BOOST BREEZE NUTRITION DRINK 1 BOX PO SCH ×2 (08:50→16:46)
[2017-12-06] MEDS: LUBIPROSTONE 8 MCG CAP PO SCH ×2 (08:50→20:55)
[2017-12-06] MEDS: ARIPIprazole TAB 15 MG TAB PO SCH (08:51)
[2017-12-06] MEDS: BACLOFEN 10 MG TAB PO SCH ×3 (08:52→20:57)
[2017-12-06] MEDS: GABAPENTIN 300 MG CAP PO SCH ×3 (08:53→20:59)
[2017-12-06] MEDS: CETIRIZINE HCL 10 MG TAB PO SCH (08:54)
[2017-12-06] MEDS: CEROVITE ADV FORMULA TAB PO SCH (08:56)
[2017-12-06] MEDS: METOPROLOL TARTRATE 25 MG TAB PO SCH ×2 (08:56→20:58)
[2017-12-06] MEDS: MULTIVITAMIN TAB PO SCH (08:56)
--- NOTE | 2017-12-06 12:43 | Surgery Progress Note ---
Surgery Progress Note Date of Service Dec 06, 2017. Subjective doing ok. primary complaint is IV issues. abdomen feeling ok. no nausea. Objective Vital Signs: Date Time Temp Pulse Resp B/P (MAP) Pulse Ox O2 Delivery O2 Flow Rate FiO2 12/06/17 08:30 Room Air 12/06/17 07:36 36.6 96 16 120/79 (93) 94 Room Air 12/06/17 07:01 94 16 96 Room Air 12/05/17 23:30 Room Air 12/05/17 23:01 36.6 90 14 110/76 (87) 95 Room Air 12/05/17 20:45 104 16 93 Room Air 12/05/17 20:45 103 121/83 (96) 12/05/17 16:00 Room Air 12/05/17 15:31 36.8 94 16 115/73 (87) 96 Room Air Physical Exam: KENROY drainage (serous) General Appearance: no apparent distress Head: atraumatic Abdomen: non distended, soft, + pertinent finding Incision(s): findings (wound looks good. upper pole where portia removed clean. no erythema. minimal serous drainage) Laboratory Results: Results Past 24 Hours Test 12/05/17 18:20 12/05/17 23:40 12/06/17 05:23 12/06/17 05:40 Range/Units Bedside Glucose 124 139 153 70-90 mg/dl White Blood Count 12.45 4.8-10.8 K/uL Red Blood Count 3.68 4.2-5.4 M/uL Hemoglobin 9.5 12.0-16.0 g/dL Hematocrit 30.3 37-47 % Mean Corpuscular Volume 82.3 80-100 fL Mean Corpuscular Hemoglobin 25.8 25-34 pg Mean Corpuscular Hemoglobin Concent 31.4 32-36 g/dl RDW Standard Deviation 45.7 36.4-46.3 fL RDW Coefficient of Variation 15.2 11.5-14.5 % Platelet Count 357 130-400 K/uL Mean Platelet Volume 9.2 7.4-10.4 fL Sodium Level 135 136-145 mmol/L Potassium Level 4.1 3.5-5.1 mmol/L Chloride Level 101 98-107 mmol/L Carbon Dioxide Level 23 21-32 mmol/L Anion Gap 11.0 3-11 mmol/L Blood Urea Nitrogen 17 7-18 mg/dl Creatinine 0.44 0.60-1.20 mg/dl Est Creatinine Clear Calc Drug Dose 122.6 ml/min Estimated GFR () 129.9 Estimated GFR (Non- 112.1 BUN/Creatinine Ratio 38.1 10-20 Random Glucose 138 70-99 mg/dl Calcium Level 9.1 8.5-10.1 mg/dl Phosphorus Level 4.3 2.5-4.9 mg/dl Magnesium Level 2.0 1.8-2.4 mg/dl Assessment & Plan 12/06/17 SBFT tomorrow NGT drainage decreasing if sbft looks ok will try and clamp ngt and pull/start clears soon 12/05/17 no new changes will obtain a sbft to eval sbo vs psbo vs ileus keep ngt/tpn for now wbc decreased 12/03/16 somewhat improved today keep ngt/tpn will check KUB tomorrow suspect severe ileus may need sbft to better assess at some point POD 6 suspect severe ileus ( anticipated). pt pulled ngt and refused replacement previously. in light of pain, distension, and slightly increased wbc, will obtain ct scan...will have to be without oral contrast as patient will not tolerate it. picc placed. would consider TPN. pt will not be eating normally any time soon. cont antibiotics continue local wound care. KENROY serous. Exploratory Laparotomy Release of Small Bowel Obstruction, Small Bowel Decompression, Enterolysis, esophagogastroduodenoscopy transferred to PCU for post op tachycardia CT chest pending r/o PE IV team trying to establish larger IV anticipate post op ileus, consider PICC for TPN pain control marginal, ADMISSIONS RN already at 0.5mg q 10 min + IV Tylenol, will avoid Toradol for now 11/27/17 as above. doing ok. pre-op pain is resolved anticipate post op ileus ( possibly severe). unable to place NGT b/c of prior gastric fundoplication [facility] covering this weekend. 12/05/17 no new changes will obtain a sbft to eval sbo vs psbo vs ileus keep ngt/tpn for now wbc decreased 12/03/16 somewhat improved today keep ngt/tpn will check KUB tomorrow suspect severe ileus may need sbft to better assess at some point POD 6 suspect severe ileus ( anticipated). pt pulled ngt and refused replacement previously. in light of pain, distension, and slightly increased wbc, will obtain ct scan...will have to be without oral contrast as patient will not tolerate it. picc placed. would consider TPN. pt will not be eating normally any time soon. cont antibiotics continue local wound care. KENROY serous. Exploratory Laparotomy Release of Small Bowel Obstruction, Small Bowel Decompression, Enterolysis, esophagogastroduodenoscopy transferred to PCU for post op tachycardia CT chest pending r/o PE IV team trying to establish larger IV anticipate post op ileus, consider PICC for TPN pain control marginal, ADMISSIONS RN already at 0.5mg q 10 min + IV Tylenol, will avoid Toradol for now 11/27/17 as above. doing ok. pre-op pain is resolved anticipate post op ileus ( possibly severe). unable to place NGT b/c of prior gastric fundoplication [facility] covering this weekend.
[2017-12-06] MEDS: FENTANYL PATCH REMOVE & WASTE SCH (14:03)
[2017-12-06] MEDS: FENTANYL 25 MCG/HR TDSY TD SCH (14:03)
[2017-12-06] MEDS ORDERED: CUSTOM CENTRAL PN 1 BAG IV SCH (16:00)
[2017-12-06 16:13] VITALS: BP 123/79; PULSE 88; TEMP 37.1; O2SAT 97
--- NOTE | 2017-12-06 19:32 | Progress Note ---
Medicine Progress Note Date & Time of Visit: Dec 06, 2017 at 11:25. Subjective Pt was seen and examined Sitting in chair with no distress Pain improved Abdominal distention improved Continue NGT suctioning Denies any SOB, palpitation and fever Objective Last 8 Hrs Date Time Temp Pulse Resp B/P (MAP) Pulse Ox O2 Delivery O2 Flow Rate FiO2 12/06/17 16:13 37.1 88 16 123/79 (94) 97 Room Air Physical Exam: General- no acute distress Head- atraumatic Eyes- PERRL, EOMI ENT- NGT in placed Neck- supple, no JVD Lungs- clear to auscultation Heart- regular rhythm; no murmur Abdomen- +distension, +tenderness and drainage around the incision area Extremities- no calf tenderness Neuro- alert, oriented x 3; PERRL, EOMI; no facial palsy Skin- warm & dry Laboratory Results: Last 24 Hours Test 12/05/17 23:40 12/06/17 05:23 12/06/17 05:40 Bedside Glucose 139 mg/dl 153 mg/dl White Blood Count 12.45 K/uL Red Blood Count 3.68 M/uL Hemoglobin 9.5 g/dL Hematocrit 30.3 % Mean Corpuscular Volume 82.3 fL Mean Corpuscular Hemoglobin 25.8 pg Mean Corpuscular Hemoglobin Concent 31.4 g/dl RDW Standard Deviation 45.7 fL RDW Coefficient of Variation 15.2 % Platelet Count 357 K/uL Mean Platelet Volume 9.2 fL Sodium Level 135 mmol/L Potassium Level 4.1 mmol/L Chloride Level 101 mmol/L Carbon Dioxide Level 23 mmol/L Anion Gap 11.0 mmol/L Blood Urea Nitrogen 17 mg/dl Creatinine 0.44 mg/dl Est Creatinine Clear Calc Drug Dose 122.6 ml/min Estimated GFR () 129.9 Estimated GFR (Non- 112.1 BUN/Creatinine Ratio 38.1 Random Glucose 138 mg/dl Calcium Level 9.1 mg/dl Phosphorus Level 4.3 mg/dl Magnesium Level 2.0 mg/dl Assessment & Plan SMALL BOWEL OBSTRUCTION POST ILEUS S/P Exploratory Laparotomy Release of Small Bowel Obstruction, Small Bowel Decompression, Enterolysis, esophagogastroduodenoscopy on 11/[address] Coello Continue to have abdominal tenderness Incision drainage from the portia Surgery on board Elevated WBC Starting on Unasyn Will put NPO Consider to start on TPN as per surgery team Dilaudid increased to 1 mg q3h continue fentanyl patch Added Phenergan for the nausea will get a picc line for the tpn 12/06 Abdominal is slightly distended S/P Exploratory Laparotomy Release of Small Bowel Obstruction, Small Bowel Decompression, Enterolysis, esophagogastroduodenoscopy on 11/[address] Coello Repeat CT abd showed Persistent small bowel obstructive pattern Abd xray showed Persistent small bowel obstruction Continue NGT with low suction Continue Dilaudid for pain On IV zosyn No sign of coffee ground from the NGT (might be related to trauma) Continue monitor hgb GI consulted Continue PPI BID Continue TPN monitor cbc repeat image tomorrow SINUS TACHYCARDIA possible related to pain and not being able to take usual Metoprolol XL 25mg daily Metoprolol succinate changed to metoprolol tartrate because it can crush and be given to the NGT continue monitor HR RIGHT THIGH CELLULITIS cx no growth antibiotics was discontinued ELECTROLYTES IMBALANCE K stable Na 135 Monitor electrolytes Hx of PSVT s/p ablation on Toprol xl changed to metoprolol tartrate BID Stable COPD stable Chronic pain on fentanyl patch On dilaudid q1hr prn DVT PROPHYLAXIS SCDs, ambulation CODE STATUS FULL CODE Consultants: Gastro Surgery Current Inpatient Medications: Current Inpatient Medications Medications (Trade) Dose Ordered Sig/Jennifer Route Start Time Stop Time Status Last Admin Dose Admin Ondansetron HCl (Zofran Inj) 4 mg Q6H PRN IV 11/15/17 09:45 12/15/17 09:44 12/05/17 10:29 4 MG Albuterol (Ventolin Hfa Inhaler) 1 puffs Q4 PRN INH 11/15/17 09:45 12/15/17 09:44 Aripiprazole (Abilify Tab) 30 mg QAM PO 11/16/17 09:00 12/16/17 08:59 12/06/17 08:51 30 MG Baclofen (Lioresal Tab) 10 mg TID PO 11/15/17 14:00 12/15/17 13:59 Future hold 12/06/17 08:52 10 MG Cetirizine HCl (zyrTEC TAB) 10 mg QAM PO 11/16/17 09:00 12/16/17 08:59 12/06/17 08:54 10 MG Cyclobenzaprine HCl (Flexeril Tab) 10 mg TID PRN PO 11/15/17 09:45 12/15/17 09:44 Future hold 11/25/17 21:57 10 MG Gabapentin (Neurontin Cap) 300 mg TID PO 11/15/17 14:00 12/15/17 13:59 Future hold 12/06/17 08:53 300 MG Lorazepam (Ativan Tab) 1 mg BID PRN PO 11/15/17 09:45 12/15/17 09:44 12/06/17 00:08 1 MG Montelukast Sodium (Singulair Tab) 10 mg HS PO 11/15/17 21:00 12/15/17 20:59 Future hold 12/05/17 20:41 10 MG Ondansetron HCl (Zofran Tab) 8 mg Q6H PRN PO 11/15/17 09:45 12/15/17 09:44 11/25/17 09:42 8 MG Lubiprostone (Amitiza) 24 mcg BID PO 11/15/17 21:00 12/15/17 20:59 Future hold 12/03/17 20:39 24 MCG Formoterol Fumarate (Perforomist 20MCG/2ML Neb Soln) 20 mcg BID INH 11/15/17 21:00 12/15/17 20:59 12/06/17 07:01 20 MCG Lamotrigine (Lamictal Tab) 125 mg BID PO 11/15/17 21:00 12/15/17 20:59 Future hold 12/06/17 08:39 125 MG Buspirone HCl (Buspar Tab) 10 mg BID PO 11/15/17 21:00 12/15/17 20:59 Future hold 12/06/17 08:54 10 MG Acetaminophen 650 mg/Empty Bag 65 ml @ 260 mls/hr Q6H PRN IV 11/20/17 00:30 12/20/17 00:29 11/30/17 22:41 260 MLS/HR Zolpidem Tartrate (Ambien Tab) 5 mg HS PRN PO 11/21/17 19:30 12/21/17 19:29 11/27/17 23:32 5 MG Menthol (Nice Brown) 1 brown Q2H PRN PO 11/21/17 19:45 12/21/17 19:44 Multivitamins (Multivitamin Tab) 1 tab QAM PO 11/26/17 09:00 12/26/17 08:59 12/04/17 08:36 1 TAB Multivitamins/ Minerals (Multivitamin W/ Minerals Tab) 1 tab DAILY PO 11/26/17 09:00 12/26/17 08:59 12/05/17 08:06 1 TAB Miscellaneous Information (Order Awaiting Action) 1 ea QS N/A 11/26/17 16:00 12/26/17 15:59 Calcium/Vitamin D (Caltrate Plus Tab) 1 tab DAILY PO 11/26/17 09:00 12/26/17 08:59 12/05/17 08:04 1 TAB Al Hydrox/Mg Hydrox/Simethicone (Maalox Max Susp) 15 ml Q4H PRN PO 11/29/17 20:00 12/15/17 09:44 11/30/17 23:55 15 ML Sodium Chloride (Concho Nasal [place]) 1 sprays PRN PRN NA 11/29/17 23:30 12/29/17 23:29 11/30/17 01:42 1 SPRAYS Enteral Nutritional Formula (Boost Breeze Nutritional Drink) 1 box BID17 PO 11/30/17 17:00 12/30/17 16:59 12/01/17 07:31 1 BOX Fentanyl (Duragesic Patch) 25 mcg Q72H TD 11/30/17 13:30 12/14/17 13:29 12/06/17 14:03 25 MCG Miscellaneous (Fentanyl Patch Remove & Waste) 1 ea Q3D N/A 12/03/17 13:30 01/02/18 13:29 12/06/17 14:03 1 EA Miscellaneous Information (Check Fentanyl Patch Placement) 1 ea QS N/A 11/30/17 16:00 12/30/17 15:59 12/06/17 15:50 1 EA Promethazine HCl 12.5 mg/Sodium Chloride 50.5 ml @ 204 mls/hr Q6H PRN IV 12/01/17 09:45 12/31/17 09:44 12/03/17 20:27 204 MLS/HR Bisacodyl (Dulcolax Supp) 10 mg BID PA 12/01/17 21:00 12/31/17 20:59 12/05/17 21:00 10 MG Heparin Sodium (Porcine) (Heparin 10 Unit/ ml 5 ml Flush) 5 ml PRN PRN FLUSH 12/01/17 15:15 12/31/17 15:14 12/06/17 03:44 5 ML Miscellaneous Information (Pharmacy Tpn/ Ppn Consult Active) 1 ea UD PRN N/A 12/02/17 11:15 01/01/18 10:44 Dextrose 1,000 ml @ 0 mls/hr Q0M PRN IV 12/02/17 12:49 01/01/18 12:48 Piperacillin Sod/ Tazobactam Sod 3.375 gm/Dextrose 115 ml @ 28.75 mls/ hr Q8H IV 12/04/17 02:00 12/13/17 15:59 12/06/17 12:30 28.75 MLS/HR Miscellaneous Information (Consult) 1 [facility] PRN N/A 12/03/17 16:00 01/02/18 15:59 Metoprolol Tartrate (Lopressor Tab) 25 mg BID PO 12/04/17 21:00 01/03/18 20:59 12/06/17 08:56 25 MG Pantoprazole Sodium 80 mg/ Syringe 20 ml @ 5 mls/min BID IV 12/04/17 21:00 01/03/18 20:59 12/06/17 08:36 5 MLS/MIN Metoclopramide HCl (Reglan Inj) 5 mg Q6 IV. 12/05/17 13:00 01/04/18 12:59 12/06/17 17:49 5 MG Hydromorphone HCl (Dilaudid Inj) 1 mg Q3HWA PRN IV 12/06/17 11:15 12/20/17 11:14 12/06/17 19:08 1 MG Nutrition (Parenteral) 0 ml @ 0 mls/hr TODAY@1600 IV 12/06/17 16:00 12/07/17 15:59 12/06/17 15:49 0 MLS/HR
[2017-12-06 20:52] VITALS: BP 109/74; PULSE 89
[2017-12-06] MEDS: MONTELUKAST SOD 10 MG TAB PO SCH (20:58)
[2017-12-06 21:35] VITALS: PULSE 98; O2SAT 95
[2017-12-06 22:42] VITALS: BP 107/72; PULSE 82; TEMP 36.9; O2SAT 97
[2017-12-07] MEDS: METOCLOPRAMIDE HCL INJ 5 MG/ML 2 ML VIAL IV. SCH ×5 (00:25→23:22)
[2017-12-07] MEDS: ZOLPIDEM TARTRATE 5 MG TAB PO PRN (00:45)
[2017-12-07] MEDS: HYDROmorphone INJ 1 MG/ML SYR IV PRN ×6 (01:31→18:25)
[2017-12-07] MEDS: PIPERACILL/TAZOBAC IV 3.375 GM in DEXTROSE 5% 100ML 100 ML IV SCH ×3 (03:35→20:42)
[2017-12-07 07:00] LABS: HEMOGLOBIN 9.4 g/dL (12.0-16.0); MEAN CELL VOLUME 83.3 fL (80-100); MEAN CORPUSCULAR HEMOGLOBIN 26.1 pg (25-34); MEAN CORPUSCULAR HGB CONC 31.3 g/dl (32-36); MEAN PLATELET VOLUME 9.3 fL (7.4-10.4); PLATELET COUNT 348 K/uL (130-400); RED CELL DISTRIBUTION WIDTH CV 15.3 % (11.5-14.5); RED CELL DISTRIBUTION WIDTH SD 46.8 fL (36.4-46.3); WHITE BLOOD COUNT 10.07 K/uL (4.8-10.8)
[2017-12-07 07:15] VITALS: BP 105/69; PULSE 86; TEMP 36.4; O2SAT 95
[2017-12-07 07:25] LABS: CALCIUM 9.1 mg/dl (8.5-10.1); CREATININE 0.47 mg/dl (0.60-1.20); PHOSPHORUS 4.2 mg/dl (2.5-4.9); POTASSIUM 4.1 mmol/L (3.5-5.1)
[2017-12-07] MEDS: FORMOTEROL FUMA NEBULIZER SOLN 20 MCG/2 ML VIAL INH SCH ×2 (07:25→19:47)
[2017-12-07] MEDS: CHECK FENTANYL PATCH PLACEMENT SCH ×4 (08:14→23:21)
[2017-12-07] MEDS: BISACODYL 10 MG SUPP PR SCH ×2 (09:00→20:49)
[2017-12-07] MEDS: BACLOFEN 10 MG TAB PO SCH ×3 (09:00→20:47)
[2017-12-07] MEDS: MULTIVITAMIN TAB PO SCH (09:00)
[2017-12-07] MEDS: CALCIUM 600MG + VIT D 400 IU TAB PO SCH (09:00)
[2017-12-07] MEDS: ARIPIprazole TAB 15 MG TAB PO SCH (09:00)
[2017-12-07] MEDS: BOOST BREEZE NUTRITION DRINK 1 BOX PO SCH ×2 (09:00→17:00)
[2017-12-07] MEDS: GABAPENTIN 300 MG CAP PO SCH ×3 (09:00→20:48)
[2017-12-07] MEDS: LUBIPROSTONE 8 MCG CAP PO SCH ×2 (09:00→20:43)
[2017-12-07] MEDS: CEROVITE ADV FORMULA TAB PO SCH (09:00)
[2017-12-07] MEDS: METOPROLOL TARTRATE 25 MG TAB PO SCH ×2 (09:00→20:47)
[2017-12-07] MEDS: CETIRIZINE HCL 10 MG TAB PO SCH (09:00)
[2017-12-07] MEDS: LORAZEPAM 1 MG TAB PO PRN (12:29)
[2017-12-07] MEDS: PANTOprazole INJ 80 MG in SYRINGE 0 ML IV SCH ×2 (12:30→20:43)
--- NOTE | 2017-12-07 13:12 | Surgery Progress Note ---
Surgery Progress Note Date of Service Dec 07, 2017. Subjective Post OP Day: 4 doing reasonably well. no new changes Objective Vital Signs: Date Time Temp Pulse Resp B/P (MAP) Pulse Ox O2 Delivery O2 Flow Rate FiO2 12/07/17 08:05 Room Air 12/07/17 07:15 36.4 86 17 105/69 (81) 95 Room Air 12/07/17 00:30 Room Air 12/06/17 22:42 36.9 82 16 107/72 (84) 97 Room Air 12/06/17 21:35 98 16 95 Room Air 12/06/17 20:52 89 109/74 (86) 12/06/17 16:13 37.1 88 16 123/79 (94) 97 Room Air 12/06/17 15:30 Room Air Physical Exam: KENROY drainage (serous) General Appearance: no apparent distress Respiratory/Chest: no respiratory distress, no accessory muscle use Abdomen: soft, + pertinent finding Incision(s): clean, no erythema Laboratory Results: Results Past 24 Hours Test 12/06/17 18:07 12/07/17 05:51 Range/Units Bedside Glucose 125 70-90 mg/dl White Blood Count 10.07 4.8-10.8 K/uL Red Blood Count 3.60 4.2-5.4 M/uL Hemoglobin 9.4 12.0-16.0 g/dL Hematocrit 30.0 37-47 % Mean Corpuscular Volume 83.3 80-100 fL Mean Corpuscular Hemoglobin 26.1 25-34 pg Mean Corpuscular Hemoglobin Concent 31.3 32-36 g/dl RDW Standard Deviation 46.8 36.4-46.3 fL RDW Coefficient of Variation 15.3 11.5-14.5 % Platelet Count 348 130-400 K/uL Mean Platelet Volume 9.3 7.4-10.4 fL Sodium Level 135 136-145 mmol/L Potassium Level 4.1 3.5-5.1 mmol/L Chloride Level 103 98-107 mmol/L Carbon Dioxide Level 22 21-32 mmol/L Anion Gap 10.0 3-11 mmol/L Blood Urea Nitrogen 19 7-18 mg/dl Creatinine 0.47 0.60-1.20 mg/dl Est Creatinine Clear Calc Drug Dose 114.2 ml/min Estimated GFR () 127.1 Estimated GFR (Non- 109.6 BUN/Creatinine Ratio 39.9 10-20 Random Glucose 124 70-99 mg/dl Calcium Level 9.1 8.5-10.1 mg/dl Phosphorus Level 4.2 2.5-4.9 mg/dl Magnesium Level 2.1 1.8-2.4 mg/dl Assessment & Plan 12/07/17 SBFT initiated hopefully if contrast gets though we can d/c ngt and start clears 12/06/17 SBFT tomorrow NGT drainage decreasing if sbft looks ok will try and clamp ngt and pull/start clears soon 12/05/17 no new changes will obtain a sbft to eval sbo vs psbo vs ileus keep ngt/tpn for now wbc decreased 12/03/16 somewhat improved today keep ngt/tpn will check KUB tomorrow suspect severe ileus may need sbft to better assess at some point POD 6 suspect severe ileus ( anticipated). pt pulled ngt and refused replacement previously. in light of pain, distension, and slightly increased wbc, will obtain ct scan...will have to be without oral contrast as patient will not tolerate it. picc placed. would consider TPN. pt will not be eating normally any time soon. cont antibiotics continue local wound care. KENROY serous. Exploratory Laparotomy Release of Small Bowel Obstruction, Small Bowel Decompression, Enterolysis, esophagogastroduodenoscopy transferred to PCU for post op tachycardia CT chest pending r/o PE IV team trying to establish larger IV anticipate post op ileus, consider PICC for TPN pain control marginal, ELECTRIFICATION ADVISER already at 0.5mg q 10 min + IV Tylenol, will avoid Toradol for now 11/27/17 as above. doing ok. pre-op pain is resolved anticipate post op ileus ( possibly severe). unable to place NGT b/c of prior gastric fundoplication [facility] covering this weekend. 12/06/17 SBFT tomorrow NGT drainage decreasing if sbft looks ok will try and clamp ngt and pull/start clears soon 12/05/17 no new changes will obtain a sbft to eval sbo vs psbo vs ileus keep ngt/tpn for now wbc decreased 12/03/16 somewhat improved today keep ngt/tpn will check KUB tomorrow suspect severe ileus may need sbft to better assess at some point POD 6 suspect severe ileus ( anticipated). pt pulled ngt and refused replacement previously. in light of pain, distension, and slightly increased wbc, will obtain ct scan...will have to be without oral contrast as patient will not tolerate it. picc placed. would consider TPN. pt will not be eating normally any time soon. cont antibiotics continue local wound care. KENROY serous. Exploratory Laparotomy Release of Small Bowel Obstruction, Small Bowel Decompression, Enterolysis, esophagogastroduodenoscopy transferred to PCU for post op tachycardia CT chest pending r/o PE IV team trying to establish larger IV anticipate post op ileus, consider PICC for TPN pain control marginal, ELECTRIFICATION ADVISER already at 0.5mg q 10 min + IV Tylenol, will avoid Toradol for now 11/27/17 as above. doing ok. pre-op pain is resolved anticipate post op ileus ( possibly severe). unable to place NGT b/c of prior gastric fundoplication [facility] covering this weekend.
[2017-12-07 14:56] VITALS: BP 108/76; PULSE 96; TEMP 37; O2SAT 95
[2017-12-07] MEDS ORDERED: CUSTOM CENTRAL PN 1 BAG IV SCH (16:00)
--- NOTE | 2017-12-07 19:11 | Progress Note ---
Medicine Progress Note Date & Time of Visit: Dec 07, 2017 at 19:00. Subjective Pt was seen and examined Sitting in bed with no distress Pt said that she continue to have abdominal pain Her abdomen is less distended today she said that she had a small BM Denies any chest pain, palpitation and SOB Objective Last 8 Hrs Date Time Temp Pulse Resp B/P (MAP) Pulse Ox O2 Delivery O2 Flow Rate FiO2 12/07/17 14:56 37.0 96 18 108/76 (87) 95 Room Air Physical Exam: General- no acute distress Head- atraumatic Eyes- PERRL, EOMI ENT- NGT in placed Neck- supple, no JVD Lungs- clear to auscultation Heart- regular rhythm; no murmur Abdomen- +distension improved, +tenderness, +BS Extremities- no calf tenderness Neuro- alert, oriented x 3; PERRL, EOMI; no facial palsy Skin- warm & dry Laboratory Results: Last 24 Hours Test 12/07/17 05:51 White Blood Count 10.07 K/uL Red Blood Count 3.60 M/uL Hemoglobin 9.4 g/dL Hematocrit 30.0 % Mean Corpuscular Volume 83.3 fL Mean Corpuscular Hemoglobin 26.1 pg Mean Corpuscular Hemoglobin Concent 31.3 g/dl RDW Standard Deviation 46.8 fL RDW Coefficient of Variation 15.3 % Platelet Count 348 K/uL Mean Platelet Volume 9.3 fL Sodium Level 135 mmol/L Potassium Level 4.1 mmol/L Chloride Level 103 mmol/L Carbon Dioxide Level 22 mmol/L Anion Gap 10.0 mmol/L Blood Urea Nitrogen 19 mg/dl Creatinine 0.47 mg/dl Est Creatinine Clear Calc Drug Dose 114.2 ml/min Estimated GFR () 127.1 Estimated GFR (Non- 109.6 BUN/Creatinine Ratio 39.9 Random Glucose 124 mg/dl Calcium Level 9.1 mg/dl Phosphorus Level 4.2 mg/dl Magnesium Level 2.1 mg/dl Assessment & Plan SMALL BOWEL OBSTRUCTION POST ILEUS S/P Exploratory Laparotomy Release of Small Bowel Obstruction, Small Bowel Decompression, Enterolysis, esophagogastroduodenoscopy on 11/[address] Coello Continue to have abdominal tenderness Incision drainage from the [facility] Surgery on board Elevated WBC Starting on Unasyn Will put NPO Consider to start on TPN as per surgery team Dilaudid increased to 1 mg q3h continue fentanyl patch Added Phenergan for the nausea will get a picc line for the tpn 12/07 Abdominal distention improved S/P Exploratory Laparotomy Release of Small Bowel Obstruction, Small Bowel Decompression, Enterolysis, esophagogastroduodenoscopy on 11/[address] Coello Repeat CT abd showed Persistent small bowel obstructive pattern Abd xray showed Persistent small bowel obstruction Small bowel study pending Ok by surgery if contrast gets though from the small bowel study to remove the NGT and can start on clear liquid Discussed with pt about to avoid opioid due to GI motility Will decrease dilaudid IV to 0.5mg IV q4 hr On IV zosyn can be d/c if cliniccaly improved No sign of coffee ground from the NGT (might be related to trauma) Continue monitor hgb GI consulted Continue PPI BID Continue TPN SINUS TACHYCARDIA possible related to pain and not being able to take usual Metoprolol XL 25mg daily Metoprolol succinate changed to metoprolol tartrate because it can crush and be given to the NGT continue monitor HR Stable RIGHT THIGH CELLULITIS cx no growth antibiotics was discontinued ELECTROLYTES IMBALANCE K stable Na 135 Monitor electrolytes Hx of PSVT s/p ablation on Toprol xl changed to metoprolol tartrate BID Stable COPD stable Chronic pain On fentanyl patch Will decrease dilaudid to 0.5 mg IV q4 DVT PROPHYLAXIS SCDs, ambulation CODE STATUS FULL CODE Consultants: Gastro Surgery Current Inpatient Medications: Current Inpatient Medications Medications (Trade) Dose Ordered Sig/Jennifer Route Start Time Stop Time Status Last Admin Dose Admin Ondansetron HCl (Zofran Inj) 4 mg Q6H PRN IV 11/15/17 09:45 12/15/17 09:44 12/05/17 10:29 4 MG Albuterol (Ventolin Hfa Inhaler) 1 puffs Q4 PRN INH 11/15/17 09:45 12/15/17 09:44 Aripiprazole (Abilify Tab) 30 mg QAM PO 11/16/17 09:00 12/16/17 08:59 12/06/17 08:51 30 MG Baclofen (Lioresal Tab) 10 mg TID PO 11/15/17 14:00 12/15/17 13:59 Future hold 12/06/17 20:57 10 MG Cetirizine HCl (zyrTEC TAB) 10 mg QAM PO 11/16/17 09:00 12/16/17 08:59 12/06/17 08:54 10 MG Cyclobenzaprine HCl (Flexeril Tab) 10 mg TID PRN PO 11/15/17 09:45 12/15/17 09:44 Future hold 11/25/17 21:57 10 MG Gabapentin (Neurontin Cap) 300 mg TID PO 11/15/17 14:00 12/15/17 13:59 Future hold 12/06/17 20:59 300 MG Lorazepam (Ativan Tab) 1 mg BID PRN PO 11/15/17 09:45 12/15/17 09:44 12/07/17 12:29 1 MG Montelukast Sodium (Singulair Tab) 10 mg HS PO 11/15/17 21:00 12/15/17 20:59 Future hold 12/06/17 20:58 10 MG Ondansetron HCl (Zofran Tab) 8 mg Q6H PRN PO 11/15/17 09:45 12/15/17 09:44 11/25/17 09:42 8 MG Lubiprostone (Amitiza) 24 mcg BID PO 11/15/17 21:00 12/15/17 20:59 Future hold 12/03/17 20:39 24 MCG Formoterol Fumarate (Perforomist 20MCG/2ML Neb Soln) 20 mcg BID INH 11/15/17 21:00 12/15/17 20:59 12/06/17 21:00 20 MCG Lamotrigine (Lamictal Tab) 125 mg BID PO 11/15/17 21:00 12/15/17 20:59 Future hold 12/06/17 20:56 125 MG Buspirone HCl (Buspar Tab) 10 mg BID PO 11/15/17 21:00 12/15/17 20:59 Future hold 12/06/17 20:58 10 MG Acetaminophen 650 mg/Empty Bag 65 ml @ 260 mls/hr Q6H PRN IV 11/20/17 00:30 12/20/17 00:29 11/30/17 22:41 260 MLS/HR Zolpidem Tartrate (Ambien Tab) 5 mg HS PRN PO 11/21/17 19:30 12/21/17 19:29 12/07/17 00:45 5 MG Menthol (Nice Brown) 1 brown Q2H PRN PO 11/21/17 19:45 12/21/17 19:44 Multivitamins (Multivitamin Tab) 1 tab QAM PO 11/26/17 09:00 12/26/17 08:59 12/04/17 08:36 1 TAB Multivitamins/ Minerals (Multivitamin W/ Minerals Tab) 1 tab DAILY PO 11/26/17 09:00 12/26/17 08:59 12/05/17 08:06 1 TAB Miscellaneous Information (Order Awaiting Action) 1 ea QS N/A 11/26/17 16:00 12/26/17 15:59 Calcium/Vitamin D (Caltrate Plus Tab) 1 tab DAILY PO 11/26/17 09:00 12/26/17 08:59 12/05/17 08:04 1 TAB Al Hydrox/Mg Hydrox/Simethicone (Maalox Max Susp) 15 ml Q4H PRN PO 11/29/17 20:00 12/15/17 09:44 11/30/17 23:55 15 ML Sodium Chloride (Drew Nasal Kiron) 1 sprays PRN PRN NA 11/29/17 23:30 12/29/17 23:29 11/30/17 01:42 1 SPRAYS Enteral Nutritional Formula (Boost Breeze Nutritional Drink) 1 box BID17 PO 11/30/17 17:00 12/30/17 16:59 12/01/17 07:31 1 BOX Fentanyl (Duragesic Patch) 25 mcg Q72H TD 11/30/17 13:30 12/14/17 13:29 12/06/17 14:03 25 MCG Miscellaneous (Fentanyl Patch Remove & Waste) 1 ea Q3D N/A 12/03/17 13:30 01/02/18 13:29 12/06/17 14:03 1 EA Miscellaneous Information (Check Fentanyl Patch Placement) 1 ea QS N/A 11/30/17 16:00 12/30/17 15:59 12/07/17 15:41 1 EA Promethazine HCl 12.5 mg/Sodium Chloride 50.5 ml @ 204 mls/hr Q6H PRN IV 12/01/17 09:45 12/31/17 09:44 12/03/17 20:27 204 MLS/HR Bisacodyl (Dulcolax Supp) 10 mg BID VT 12/01/17 21:00 12/31/17 20:59 12/05/17 21:00 10 MG Heparin Sodium (Porcine) (Heparin 10 Unit/ ml 5 ml Flush) 5 ml PRN PRN FLUSH 12/01/17 15:15 12/31/17 15:14 12/06/17 03:44 5 ML Miscellaneous Information (Pharmacy Tpn/ Ppn Consult Active) 1 ea UD PRN N/A 12/02/17 11:15 01/01/18 10:44 Dextrose 1,000 ml @ 0 mls/hr Q0M PRN IV 12/02/17 12:49 01/01/18 12:48 Piperacillin Sod/ Tazobactam Sod 3.375 gm/Dextrose 115 ml @ 28.75 mls/ hr Q8H IV 12/04/17 02:00 12/13/17 15:59 12/07/17 12:25 28.75 MLS/HR Miscellaneous Information (Consult) 1 ea UD PRN N/A 12/03/17 16:00 01/02/18 15:59 Metoprolol Tartrate (Lopressor Tab) 25 mg BID PO 12/04/17 21:00 01/03/18 20:59 12/06/17 20:58 25 MG Pantoprazole Sodium 80 mg/ Syringe 20 ml @ 5 mls/min BID IV 12/04/17 21:00 01/03/18 20:59 12/07/17 12:30 5 MLS/MIN Metoclopramide HCl (Reglan Inj) 5 mg Q6 IV. 12/05/17 13:00 01/04/18 12:59 12/07/17 17:47 5 MG Hydromorphone HCl (Dilaudid Inj) 1 mg Q3HWA PRN IV 12/06/17 11:15 12/20/17 11:14 12/07/17 18:25 1 MG Nutrition (Parenteral) 0 ml @ 0 mls/hr TODAY@1600 IV 12/07/17 16:00 12/08/17 15:59 12/07/17 16:10 0 MLS/HR
[2017-12-07 19:47] VITALS: PULSE 96; O2SAT 95
[2017-12-07 21:00] VITALS: BP 105/70; PULSE 96
[2017-12-07] MEDS: MONTELUKAST SOD 10 MG TAB PO SCH (21:00)
[2017-12-07 23:05] VITALS: BP 110/75; PULSE 91; TEMP 36.8; O2SAT 96
[2017-12-07] MEDS: HYDROmorphone INJ 0.5 MG/0.5 ML SYR IV PRN (23:23)
[2017-12-08] MEDS: ZOLPIDEM TARTRATE 5 MG TAB PO PRN (00:39)
[2017-12-08] MEDS: PIPERACILL/TAZOBAC IV 3.375 GM in DEXTROSE 5% 100ML 100 ML IV SCH ×3 (03:48→20:56)
[2017-12-08] MEDS: HYDROmorphone INJ 0.5 MG/0.5 ML SYR IV PRN ×5 (04:13→20:56)
[2017-12-08] MEDS: METOCLOPRAMIDE HCL INJ 5 MG/ML 2 ML VIAL IV. SCH ×3 (05:47→17:33)
[2017-12-08] MEDS: FORMOTEROL FUMA NEBULIZER SOLN 20 MCG/2 ML VIAL INH SCH ×2 (07:01→20:30)
[2017-12-08 07:45] VITALS: BP 114/78; PULSE 97; TEMP 36.6; O2SAT 94
[2017-12-08] MEDS: CHECK FENTANYL PATCH PLACEMENT SCH ×2 (08:00→16:14)
--- NOTE | 2017-12-08 08:10 | DIAGNOSTIC IMAGING REPORT ---
SMALL BOWEL STUDY CLINICAL HISTORY: 57 years-old Female with Please use NG tube for contrast. . Small bowel obstruction follow-up TECHNIQUE: Oral barium was administered to the patient and serial radiographs of the abdomen were performed. 10 radiographs were submitted over a timely of 22 hours. COMPARISON STUDY: KUB 12/05/2017, CT 12/02/2017 FINDINGS: Road Tester radiograph of the abdomen demonstrates multiple mildly dilated loops of small bowel. Mildly distended large bowel loops are also seen within the right abdomen. No gross pneumoperitoneum. Extensive spine fusion hardware is noted extending into the bilateral iliac bones. Right iliac wing plate and screw fusion hardware with right hip arthroplasty. Multiple midline skin portia are noted along with what appears to be a surgical drain. Remote fracture of the left iliac crest. Oral barium contrast was administered through the enteric tube which terminates within the mid gastric body. There is prompt opacification of the stomach with delayed transit of contrast into the duodenum. Minimal contrast is seen within the duodenum at 20 minutes and is nicely opacified at 60 minutes. No significant extension of contrast into duodenum at 2 h and 15 minutes. Progression of contrast into the small bowel is seen at 14 h without definite extension into the large bowel. There is progression of oral contrast into the ascending and transverse colon at 22 hours. No focal stricture or transition point identified. At the end of the study, there is still a large volume of contrast within the gastric lumen. IMPRESSION: 1. Findings compatible with persistent small bowel obstruction with delayed progression of oral contrast into the large bowel. 2. At the end of the exam, there remains a large amount of contrast within the gastric lumen suggesting gastric outlet obstruction or gastroparesis. The above report was generated using voice recognition software. It may contain grammatical, syntax or spelling errors. Electronically signed by: Jared Louis M.D. 12/08/2017 8:09 AM Dictated Date/Time: 12/08/2017 7:49 AM
[2017-12-08] MEDS: BOOST BREEZE NUTRITION DRINK 1 BOX PO SCH ×2 (08:38→17:00)
[2017-12-08] MEDS: LUBIPROSTONE 8 MCG CAP PO SCH (08:39)
[2017-12-08] MEDS: ARIPIprazole TAB 15 MG TAB PO SCH (08:40)
[2017-12-08] MEDS: GABAPENTIN 300 MG CAP PO SCH ×2 (08:41→13:59)
[2017-12-08] MEDS: MULTIVITAMIN TAB PO SCH (08:41)
[2017-12-08] MEDS: CEROVITE ADV FORMULA TAB PO SCH (08:41)
[2017-12-08] MEDS: BACLOFEN 10 MG TAB PO SCH ×2 (08:42→13:58)
[2017-12-08] MEDS: CALCIUM 600MG + VIT D 400 IU TAB PO SCH (08:42)
[2017-12-08] MEDS: CETIRIZINE HCL 10 MG TAB PO SCH (08:43)
[2017-12-08] MEDS: BISACODYL 10 MG SUPP PR SCH (08:44)
[2017-12-08] MEDS: METOPROLOL TARTRATE 25 MG TAB PO SCH (09:00)
[2017-12-08] MEDS: PANTOprazole INJ 80 MG in SYRINGE 0 ML IV SCH ×2 (09:04→21:46)
[2017-12-08 09:54] LABS: CALCIUM 8.7 mg/dl (8.5-10.1); CREATININE 0.54 mg/dl (0.60-1.20)
[2017-12-08 09:55] LABS: PHOSPHORUS 3.9 mg/dl (2.5-4.9)
[2017-12-08] MEDS: LORAZEPAM 1 MG TAB PO PRN (10:10)
--- NOTE | 2017-12-08 12:05 | Surgery Progress Note ---
Surgery Progress Note Date of Service Dec 08, 2017. Subjective + bowel movement pt doing ok other than feeling depressed. had ngt clamed all day yesterday and reconnected this AM with only about 100-150 cc of clear fluid obtained ( essentially had a clamping trial). no n/v. +bm yesterday. Objective Vital Signs: Date Time Temp Pulse Resp B/P (MAP) Pulse Ox O2 Delivery O2 Flow Rate FiO2 12/08/17 07:45 36.6 97 16 114/78 (90) 94 Room Air 12/08/17 07:20 Room Air 12/07/17 23:20 Room Air 12/07/17 23:05 36.8 91 16 110/75 (87) 96 Room Air 12/07/17 21:00 96 105/70 (82) 12/07/17 19:47 96 16 95 Room Air 12/07/17 15:30 Room Air 12/07/17 14:56 37.0 96 18 108/76 (87) 95 Room Air Physical Exam: KENROY drainage (serous), nasogastric drainage (clear/minimal. ) General Appearance: no apparent distress Abdomen: non distended, soft Laboratory Results: Results Past 24 Hours Test 12/08/17 08:20 Range/Units Sodium Level 134 136-145 mmol/L Potassium Level 4.0 3.5-5.1 mmol/L Chloride Level 103 98-107 mmol/L Carbon Dioxide Level 23 21-32 mmol/L Anion Gap 8.0 3-11 mmol/L Blood Urea Nitrogen 21 7-18 mg/dl Creatinine 0.54 0.60-1.20 mg/dl Est Creatinine Clear Calc Drug Dose 100.1 ml/min Estimated GFR () 121.4 Estimated GFR (Non- 104.8 BUN/Creatinine Ratio 38.5 10-20 Random Glucose 121 70-99 mg/dl Calcium Level 8.7 8.5-10.1 mg/dl Phosphorus Level 3.9 2.5-4.9 mg/dl Magnesium Level 2.2 1.8-2.4 mg/dl Triglycerides Level 86 0-150 mg/dl Assessment & Plan 12/08/17 essentially had an ngt clamping trial that past 24 hours. no n/v. gi transit slow but contrast in colon will let her drink around ngt. if she tolerates we can pull ngt and let her continue to drink cont to increase activity cont tpn for now 12/07/17 SBFT initiated hopefully if contrast gets though we can d/c ngt and start clears 12/06/17 SBFT tomorrow NGT drainage decreasing if sbft looks ok will try and clamp ngt and pull/start clears soon 12/05/17 no new changes will obtain a sbft to eval sbo vs psbo vs ileus keep ngt/tpn for now wbc decreased 12/03/16 somewhat improved today keep ngt/tpn will check KUB tomorrow suspect severe ileus may need sbft to better assess at some point POD 6 suspect severe ileus ( anticipated). pt pulled ngt and refused replacement previously. in light of pain, distension, and slightly increased wbc, will obtain ct scan...will have to be without oral contrast as patient will not tolerate it. picc placed. would consider TPN. pt will not be eating normally any time soon. cont antibiotics continue local wound care. KENROY serous. 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 doing ok. pre-op pain is resolved anticipate post op ileus ( possibly severe). unable to place NGT b/c of prior gastric fundoplication [facility] covering this weekend. 12/07/17 SBFT initiated hopefully if contrast gets though we can d/c ngt and start clears 12/06/17 SBFT tomorrow NGT drainage decreasing if sbft looks ok will try and clamp ngt and pull/start clears soon 12/05/17 no new changes will obtain a sbft to eval sbo vs psbo vs ileus keep ngt/tpn for now wbc decreased 12/03/16 somewhat improved today keep ngt/tpn will check KUB tomorrow suspect severe ileus may need sbft to better assess at some point POD 6 suspect severe ileus ( anticipated). pt pulled ngt and refused replacement previously. in light of pain, distension, and slightly increased wbc, will obtain ct scan...will have to be without oral contrast as patient will not tolerate it. picc placed. would consider TPN. pt will not be eating normally any time soon. cont antibiotics continue local wound care. KENROY serous. 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 doing ok. pre-op pain is resolved anticipate post op ileus ( possibly severe). unable to place NGT b/c of prior gastric fundoplication [facility] covering this weekend.
[2017-12-08 15:01] VITALS: BP 109/70; PULSE 94; TEMP 36.9; O2SAT 96
[2017-12-08] MEDS ORDERED: CUSTOM CENTRAL PN 1 BAG IV SCH (16:00)
[2017-12-08] MEDS ORDERED: CHLORASEPTIC 1.4% SOLN 180 ML BTL MT PRN (17:45)
--- NOTE | 2017-12-08 17:48 | Progress Note ---
Medicine Progress Note Date & Time of Visit: Dec 08, 2017 at 17:12. Subjective reports some persistent pain since being on decreased dose dilaudid tolerating clears BM yesterday but none today-declines needing suppository BID Objective Last 8 Hrs Date Time Temp Pulse Resp B/P (MAP) Pulse Ox O2 Delivery O2 Flow Rate FiO2 12/08/17 15:01 36.9 94 18 109/70 (83) 96 Room Air Physical Exam: GEN: WNWD, in no acute distress, alert and appropriate HEENT: NC/AT, PERRL, normal sclerae, MMM, NGT in place to gravity CARDIO: reg rate, S1/2 heard without m/g/r LUNGS: CTA bilaterally, no crackles, rales or wheezes, good diaphragmatic excursion ABD: soft, midline incision with KENROY drain in place. Covered with gauze and tape. TTP on LLQ but no distension EXTREMITY: RP and DP palpable 2+ bilat, no LE swelling or edema, extremities are warm and well-perfused NEURO: CN 2-12 grossly intact MUSC: 5/5 strength throughout, no gross focal deficits SKIN: warm and dry and wound as above. Laboratory Results: 12/07/17 05:51 12/08/17 08:20 Test 11/15/17 03:57 11/15/17 13:03 11/16/17 05:25 11/16/17 23:11 Prothrombin Time 11.2 SECONDS (9.0-12.0) Prothromb Time International Ratio 1.1 (0.9-1.1) Total Bilirubin 0.3 mg/dl (0.2-1) Aspartate Amino Transf (AST/SGOT) 15 U/L (15-37) Alanine Aminotransferase (ALT/SGPT) 13 U/L (12-78) Alkaline Phosphatase 89 U/L (45-117) Total Protein 8.4 gm/dl (6.4-8.2) Globulin 5.1 gm/dl (2.5-4.0) Albumin/Globulin Ratio 0.6 (0.9-2) Lipase 91 U/L (73-393) Chemistry Specimen Hemolysis Erythrocyte Sedimentation Rate 60 mm/hr (0-21) C-Reactive Protein 1.80 mg/dl (0-0.29) Estimated Average Glucose 103 mg/dl Hemoglobin A1c 5.2 % (4.5-5.6) Vancomycin Level Trough 12.0 mcg/ml (SEE COMMENT) Test 11/17/17 06:06 11/18/17 07:42 11/24/17 06:54 11/26/17 04:36 Toxic Vacuolation 1+ Poikilocytosis PRESENT Red Blood Cell Morphology Unremarkable Lactic Acid Level 1.4 mmol/L (0.4-2.0) Test 11/28/17 05:35 11/29/17 05:43 11/30/17 05:52 12/02/17 04:35 Total Creatine Kinase 198 U/L (26-192) Creatine Kinase MB 1.9 ng/ml (0.5-3.6) Creatine Kinase MB Ratio 1.0 (0-3.0) Troponin I < 0.015 ng/ml (0-0.045) Hypochromasia PRESENT Nucleated RBC Absolute Count (auto) 0.02 K/uL (0-0) Nucleated Red Blood Cells % 0.2 % Immature Granulocyte % (Auto) 1.0 % White Blood Count 11.50 K/uL (4.8-10.8) Red Blood Count 3.59 M/uL (4.2-5.4) Hemoglobin 9.4 g/dL (12.0-16.0) Hematocrit 29.9 % (37-47) Mean Corpuscular Volume 83.3 fL (80-100) Mean Corpuscular Hemoglobin 26.2 pg (25-34) Mean Corpuscular Hemoglobin Concent 31.4 g/dl (32-36) Platelet Count 371 K/uL (130-400) Mean Platelet Volume 9.0 fL (7.4-10.4) Neutrophils (%) (Auto) 68.6 % Lymphocytes (%) (Auto) 17.2 % Monocytes (%) (Auto) 12.7 % Eosinophils (%) (Auto) 0.3 % Basophils (%) (Auto) 0.2 % Neutrophils # (Auto) 7.89 K/uL (1.4-6.5) Lymphocytes # (Auto) 1.98 K/uL (1.2-3.4) Monocytes # (Auto) 1.46 K/uL (0.11-0.59) Eosinophils # (Auto) 0.03 K/uL (0-0.5) Basophils # (Auto) 0.02 K/uL (0-0.2) Immature Granulocyte # (Auto) 0.12 K/uL (0.00-0.02) Test 12/04/17 05:50 12/04/17 06:35 12/06/17 18:07 12/07/17 05:51 Albumin 2.7 gm/dl (3.4-5.0) Gastric Fluid pH 4 Gastric Fluid Occult Blood POS (NEG) Bedside Glucose 125 mg/dl (70-90) Red Blood Count 3.60 M/uL (4.2-5.4) Mean Corpuscular Volume 83.3 fL (80-100) Mean Corpuscular Hemoglobin 26.1 pg (25-34) Mean Corpuscular Hemoglobin Concent 31.3 g/dl (32-36) RDW Standard Deviation 46.8 fL (36.4-46.3) RDW Coefficient of Variation 15.3 % (11.5-14.5) Mean Platelet Volume 9.3 fL (7.4-10.4) Test 12/08/17 08:20 Anion Gap 8.0 mmol/L (3-11) Est Creatinine Clear Calc Drug Dose 100.1 ml/min Estimated GFR () 121.4 Estimated GFR (Non- 104.8 BUN/Creatinine Ratio 38.5 (10-20) Calcium Level 8.7 mg/dl (8.5-10.1) Phosphorus Level 3.9 mg/dl (2.5-4.9) Magnesium Level 2.2 mg/dl (1.8-2.4) Triglycerides Level 86 mg/dl (0-150) Date/Time Source Procedure Growth Status 11/26/17 06:04 Peritoneal Fluid Gram Stain - Final Complete 11/26/17 06:04 Peritoneal Fluid Bacterial Culture - Final NO GROWTH Complete Last 24 Hours Test 12/08/17 08:20 Sodium Level 134 mmol/L Potassium Level 4.0 mmol/L Chloride Level 103 mmol/L Carbon Dioxide Level 23 mmol/L Anion Gap 8.0 mmol/L Blood Urea Nitrogen 21 mg/dl Creatinine 0.54 mg/dl Est Creatinine Clear Calc Drug Dose 100.1 ml/min Estimated GFR () 121.4 Estimated GFR (Non- 104.8 BUN/Creatinine Ratio 38.5 Random Glucose 121 mg/dl Calcium Level 8.7 mg/dl Phosphorus Level 3.9 mg/dl Magnesium Level 2.2 mg/dl Triglycerides Level 86 mg/dl Assessment & Plan 57 yo F presented with abdominal pain and SBO on 11/15. An NGT was placed and removed a few days later with patient tolerating clears. She got worse and the NGT was replaced with subsequent improvement, removal of the NGT and tolerating a regular diet. By 11/25 she was set to be discharged home but became acutely worse on 11/26, requiring surgery. Her post-operative course was complicated by a severe ileus, and the NGT was replaced and she was put on TPN while undergoing bowel rest. She is now at the point of tolerating clear liquids again and the NGT is planned to be removed this evening if she tolerates two meals of clears. SBFT study revealed contrast reaching her large intestine, although delayed in transit, and she did have BMs yesterday. Pain is always an issue for her as she is chronically dependent on narcotics, but she is doing well so far and plans to transition to PO meds soon. 1. SBO s/p ex lap release of SBO, small bowel decompression, enterolysis, EGD on 11/26 -drainage from incision and has been on Zosyn-KENROY drain in place draining serosanguinous fluid. -TPN -tolerating clears, pending NGT removal this evening per Gen Surg if tolerates dinner -Phenol spray for throat discomfort -Pain currently managed with Dilaudid and Fentanyl patch -when NGT pulled, will give Hydrocodone 10/325 TID PRN to control pain in lieu of Dilaudid as this is what she is on at home. -GI consulted--recs per notes 2. Tachycardia-likely related to being off BB. Will restart once tolerating PO. 3. COPD-stable no wheezing on exam or SOB. Cont inhalers. 4. Chronic pain s/p multiple back and ortho surgeries in the past. As above. 5. Anemia-likely multifactorial related to daily phlebotomy and acute blood loss from surgery. No bleeding or need for transfusion at this time. Cont to monitor periodically. DVT PROPHYLAXIS: SCDs, ambulation Full Code Dispo-uncertain at this time. Dayana Lindsay DO [facility] Hospitalist. Consultants: Gastro Surgery Current Inpatient Medications: Current Inpatient Medications Medications (Trade) Dose Ordered Sig/Jennifer Route Start Time Stop Time Status Last Admin Dose Admin Ondansetron HCl (Zofran Inj) 4 mg Q6H PRN IV 11/15/17 09:45 12/15/17 09:44 12/05/17 10:29 4 MG Albuterol (Ventolin Hfa Inhaler) 1 puffs Q4 PRN INH 11/15/17 09:45 12/15/17 09:44 Aripiprazole (Abilify Tab) 30 mg QAM PO 11/16/17 09:00 12/16/17 08:59 12/08/17 08:40 30 MG Baclofen (Lioresal Tab) 10 mg TID PO 11/15/17 14:00 12/15/17 13:59 Future hold 12/08/17 08:42 10 MG Cetirizine HCl (zyrTEC TAB) 10 mg QAM PO 11/16/17 09:00 12/16/17 08:59 12/08/17 08:43 10 MG Cyclobenzaprine HCl (Flexeril Tab) 10 mg TID PRN PO 11/15/17 09:45 12/15/17 09:44 Future hold 11/25/17 21:57 10 MG Gabapentin (Neurontin Cap) 300 mg TID PO 11/15/17 14:00 12/15/17 13:59 Future hold 12/08/17 08:41 300 MG Lorazepam (Ativan Tab) 1 mg BID PRN PO 11/15/17 09:45 12/15/17 09:44 12/08/17 10:10 1 MG Montelukast Sodium (Singulair Tab) 10 mg HS PO 11/15/17 21:00 12/15/17 20:59 Future hold 12/06/17 20:58 10 MG Ondansetron HCl (Zofran Tab) 8 mg Q6H PRN PO 11/15/17 09:45 12/15/17 09:44 11/25/17 09:42 8 MG Lubiprostone (Amitiza) 24 mcg BID PO 11/15/17 21:00 12/15/17 20:59 Future hold 12/03/17 20:39 24 MCG Formoterol Fumarate (Perforomist 20MCG/2ML Neb Soln) 20 mcg BID INH 11/15/17 21:00 12/15/17 20:59 12/07/17 19:47 20 MCG Lamotrigine (Lamictal Tab) 125 mg BID PO 11/15/17 21:00 12/15/17 20:59 Future hold 12/08/17 08:43 125 MG Buspirone HCl (Buspar Tab) 10 mg BID PO 11/15/17 21:00 12/15/17 20:59 Future hold 12/08/17 08:42 10 MG Acetaminophen 650 mg/Empty Bag 65 ml @ 260 mls/hr Q6H PRN IV 11/20/17 00:30 12/20/17 00:29 11/30/17 22:41 260 MLS/HR Zolpidem Tartrate (Ambien Tab) 5 mg HS PRN PO 11/21/17 19:30 12/21/17 19:29 12/08/17 00:39 5 MG Menthol (Nice Brown) 1 brown Q2H PRN PO 11/21/17 19:45 12/21/17 19:44 Multivitamins (Multivitamin Tab) 1 tab QAM PO 11/26/17 09:00 12/26/17 08:59 12/04/17 08:36 1 TAB Multivitamins/ Minerals (Multivitamin W/ Minerals Tab) 1 tab DAILY PO 11/26/17 09:00 12/26/17 08:59 12/05/17 08:06 1 TAB Miscellaneous Information (Order Awaiting Action) 1 ea QS N/A 11/26/17 16:00 12/26/17 15:59 Calcium/Vitamin D (Caltrate Plus Tab) 1 tab DAILY PO 11/26/17 09:00 12/26/17 08:59 12/05/17 08:04 1 TAB Al Hydrox/Mg Hydrox/Simethicone (Maalox Max Susp) 15 ml Q4H PRN PO 11/29/17 20:00 12/15/17 09:44 11/30/17 23:55 15 ML Sodium Chloride ([place] Nasal [place]) 1 sprays PRN PRN NA 11/29/17 23:30 12/29/17 23:29 11/30/17 01:42 1 SPRAYS Enteral Nutritional Formula (Boost Breeze Nutritional Drink) 1 box BID17 PO 11/30/17 17:00 12/30/17 16:59 12/01/17 07:31 1 BOX Fentanyl (Duragesic Patch) 25 mcg Q72H TD 11/30/17 13:30 12/14/17 13:29 12/06/17 14:03 25 MCG Miscellaneous (Fentanyl Patch Remove & Waste) 1 ea Q3D N/A 12/03/17 13:30 01/02/18 13:29 12/06/17 14:03 1 EA Miscellaneous Information (Check Fentanyl Patch Placement) 1 ea QS N/A 11/30/17 16:00 12/30/17 15:59 12/08/17 16:14 1 EA Promethazine HCl 12.5 mg/Sodium Chloride 50.5 ml @ 204 mls/hr Q6H PRN IV 12/01/17 09:45 12/31/17 09:44 12/03/17 20:27 204 MLS/HR Bisacodyl (Dulcolax Supp) 10 mg BID AR 12/01/17 21:00 12/31/17 20:59 12/05/17 21:00 10 MG Heparin Sodium (Porcine) (Heparin 10 Unit/ ml 5 ml Flush) 5 ml PRN PRN FLUSH 12/01/17 15:15 12/31/17 15:14 12/06/17 03:44 5 ML Miscellaneous Information (Pharmacy Tpn/ Ppn Consult Active) 1 ea UD PRN N/A 12/02/17 11:15 01/01/18 10:44 Dextrose 1,000 ml @ 0 mls/hr Q0M PRN IV 12/02/17 12:49 01/01/18 12:48 Piperacillin Sod/ Tazobactam Sod 3.375 gm/Dextrose 115 ml @ 28.75 mls/ hr Q8H IV 12/04/17 02:00 12/13/17 15:59 12/08/17 11:46 28.75 MLS/HR Miscellaneous Information (Consult) 1 ea UD PRN N/A 12/03/17 16:00 01/02/18 15:59 Metoprolol Tartrate (Lopressor Tab) 25 mg BID PO 12/04/17 21:00 01/03/18 20:59 12/07/17 20:47 25 MG Pantoprazole Sodium 80 mg/ Syringe 20 ml @ 5 mls/min BID IV 12/04/17 21:00 01/03/18 20:59 12/08/17 09:04 5 MLS/MIN Metoclopramide HCl (Reglan Inj) 5 mg Q6 IV. 12/05/17 13:00 01/04/18 12:59 12/08/17 11:48 5 MG Hydromorphone HCl (Dilaudid Inj) 0.5 mg Q4HWA PRN IV 12/07/17 21:00 12/20/17 11:14 12/08/17 16:33 0.5 MG Nutrition (Parenteral) 0 ml @ 0 mls/hr TODAY@1600 IV 12/08/17 16:00 12/09/17 15:59 12/08/17 16:15 0 MLS/HR
[2017-12-08 23:15] VITALS: BP 120/75; PULSE 96; TEMP 36.8; O2SAT 98
[2017-12-09] MEDS: METOCLOPRAMIDE HCL INJ 5 MG/ML 2 ML VIAL IV. SCH ×4 (00:38→20:03)
[2017-12-09] MEDS: HYDROmorphone INJ 0.5 MG/0.5 ML SYR IV PRN ×2 (01:16→06:41)
[2017-12-09] MEDS: PIPERACILL/TAZOBAC IV 3.375 GM in DEXTROSE 5% 100ML 100 ML IV SCH ×3 (04:44→20:03)
--- NOTE | 2017-12-09 06:44 | Surgery Progress Note ---
Surgery Progress Note Date of Service Dec 09, 2017. Subjective + feeling well, + bowel movement (small, overnight), + flatus, + pain controlled , + diet (Tolerating clears), No complaints, No nausea, No vomiting Objective Vital Signs: Date Time Temp Pulse Resp B/P (MAP) Pulse Ox O2 Delivery O2 Flow Rate FiO2 12/09/17 00:30 Room Air 12/08/17 23:15 36.8 96 16 120/75 (90) 98 Room Air 12/08/17 16:00 Room Air 12/08/17 15:01 36.9 94 18 109/70 (83) 96 Room Air 12/08/17 07:45 36.6 97 16 114/78 (90) 94 Room Air 12/08/17 07:20 Room Air Physical Exam: KENROY drainage (15 ml yesterday, 0 ml so far today.) General Appearance: WD/WN, no apparent distress Head: normocephalic, atraumatic Respiratory/Chest: no respiratory distress, no accessory muscle use Abdomen: normal bowel sounds, no organomegaly, + distended (Mild), + tenderness (Mild, incisional) Incision(s): clean, dry, intact, no erythema, no drainage Laboratory Results: Results Past 24 Hours Test 12/08/17 08:20 12/09/17 04:44 Range/Units Sodium Level 134 136-145 mmol/L Potassium Level 4.0 3.5-5.1 mmol/L Chloride Level 103 98-107 mmol/L Carbon Dioxide Level 23 21-32 mmol/L Anion Gap 8.0 3-11 mmol/L Blood Urea Nitrogen 21 7-18 mg/dl Creatinine 0.54 0.60-1.20 mg/dl Est Creatinine Clear Calc Drug Dose 100.1 ml/min Estimated GFR () 121.4 Estimated GFR (Non- 104.8 BUN/Creatinine Ratio 38.5 10-20 Random Glucose 121 70-99 mg/dl Calcium Level 8.7 8.5-10.1 mg/dl Phosphorus Level 3.9 2.5-4.9 mg/dl Magnesium Level 2.2 1.8-2.4 mg/dl Triglycerides Level 86 0-150 mg/dl Assessment & Plan 12/09/17 Pain controlled, afebrile. NGT out, tolerating clears. No N/V. KENROY minimal drainage, serosanguinous. Continue clears for now, Continue TPN - Will advance diet slowly if she continues to tolerate. Continue to increase activity. Will discuss findings with Dr. Coello. Please contact with questions or concerns.
[2017-12-09 07:36] VITALS: BP 117/75; PULSE 92; TEMP 36.8; O2SAT 95
[2017-12-09] MEDS: CHECK FENTANYL PATCH PLACEMENT SCH ×3 (08:16→16:00)
[2017-12-09] MEDS: LORAZEPAM 1 MG TAB PO PRN (08:27)
[2017-12-09] MEDS: ARIPIprazole TAB 15 MG TAB PO SCH (08:29)
[2017-12-09] MEDS: FORMOTEROL FUMA NEBULIZER SOLN 20 MCG/2 ML VIAL INH SCH ×2 (09:00→20:09)
[2017-12-09 09:22] LABS: CALCIUM 9.6 mg/dl (8.5-10.1); CREATININE 0.52 mg/dl (0.60-1.20)
[2017-12-09 09:25] LABS: PHOSPHORUS 3.9 mg/dl (2.5-4.9)
[2017-12-09] MEDS: PANTOprazole INJ 80 MG in SYRINGE 0 ML IV SCH (09:33)
[2017-12-09] MEDS: HYDROCODONE/ACETAMI 10/325 TAB PO PRN ×2 (12:15→20:22)
[2017-12-09] MEDS: FENTANYL PATCH REMOVE & WASTE SCH (13:30)
[2017-12-09] MEDS: FENTANYL 25 MCG/HR TDSY TD SCH (14:07)
[2017-12-09] MEDS: GABAPENTIN 300 MG CAP PO SCH ×2 (14:09→21:53)
[2017-12-09] MEDS: BACLOFEN 10 MG TAB PO SCH ×2 (14:10→21:53)
[2017-12-09 15:02] VITALS: BP 108/74; PULSE 101; TEMP 36.9; O2SAT 96
[2017-12-09] MEDS ORDERED: CUSTOM CENTRAL PN 1 BAG IV SCH (16:00)
[2017-12-09 20:10] VITALS: PULSE 96; O2SAT 96
[2017-12-09] MEDS: LUBIPROSTONE 8 MCG CAP PO SCH (21:52)
[2017-12-09] MEDS: PANTOprazole SOD 40 MG TAB PO SCH (21:53)
--- NOTE | 2017-12-09 22:10 | Progress Note ---
Medicine Progress Note Date & Time of Visit: Dec 09, 2017 at 14:35. Subjective NGT removed and tolerating clears reports intermittent abdominal pain generally that is unrelated to food, feels occasionally sharp and then dull, feels consistent with what she has felt entire admission transitioned her to PO pain meds and put back on her psych meds in last 24 hours. pt states that she is feeling somewhat depressed. Objective Last 8 Hrs Date Time Temp Pulse Resp B/P (MAP) Pulse Ox O2 Delivery O2 Flow Rate FiO2 12/09/17 07:36 36.8 92 16 117/75 (89) 95 Room Air 12/09/17 07:30 Room Air Physical Exam: GEN: WNWD, in no acute distress, alert and appropriate HEENT: NC/AT, PERRL, normal sclerae, MMM CARDIO: reg rate, S1/2 heard without m/g/r LUNGS: CTA bilaterally, no crackles, rales or wheezes, good diaphragmatic excursion ABD: soft, nondistended, TTP in left and right side of wound. Midline incision covered with gauze and tape. No drain in place. EXTREMITY: RP and DP palpable 2+ bilat, no LE swelling or edema, extremities are warm and well-perfused NEURO: CN 2-12 grossly intact MUSC: 5/5 strength throughout, no gross focal deficits SKIN: warm and dry and wound as above. Laboratory Results: 12/07/17 05:51 12/09/17 07:51 Test 11/15/17 03:57 11/15/17 13:03 11/16/17 05:25 11/16/17 23:11 Prothrombin Time 11.2 SECONDS (9.0-12.0) Prothromb Time International Ratio 1.1 (0.9-1.1) Total Bilirubin 0.3 mg/dl (0.2-1) Aspartate Amino Transf (AST/SGOT) 15 U/L (15-37) Alanine Aminotransferase (ALT/SGPT) 13 U/L (12-78) Alkaline Phosphatase 89 U/L (45-117) Total Protein 8.4 gm/dl (6.4-8.2) Globulin 5.1 gm/dl (2.5-4.0) Albumin/Globulin Ratio 0.6 (0.9-2) Lipase 91 U/L (73-393) Chemistry Specimen Hemolysis Erythrocyte Sedimentation Rate 60 mm/hr (0-21) C-Reactive Protein 1.80 mg/dl (0-0.29) Estimated Average Glucose 103 mg/dl Hemoglobin A1c 5.2 % (4.5-5.6) Vancomycin Level Trough 12.0 mcg/ml (SEE COMMENT) Test 11/17/17 06:06 11/18/17 07:42 11/24/17 06:54 11/26/17 04:36 Toxic Vacuolation 1+ Poikilocytosis PRESENT Red Blood Cell Morphology Unremarkable Lactic Acid Level 1.4 mmol/L (0.4-2.0) Test 11/28/17 05:35 11/29/17 05:43 11/30/17 05:52 12/02/17 04:35 Total Creatine Kinase 198 U/L (26-192) Creatine Kinase MB 1.9 ng/ml (0.5-3.6) Creatine Kinase MB Ratio 1.0 (0-3.0) Troponin I < 0.015 ng/ml (0-0.045) Hypochromasia PRESENT Nucleated RBC Absolute Count (auto) 0.02 K/uL (0-0) Nucleated Red Blood Cells % 0.2 % Immature Granulocyte % (Auto) 1.0 % White Blood Count 11.50 K/uL (4.8-10.8) Red Blood Count 3.59 M/uL (4.2-5.4) Hemoglobin 9.4 g/dL (12.0-16.0) Hematocrit 29.9 % (37-47) Mean Corpuscular Volume 83.3 fL (80-100) Mean Corpuscular Hemoglobin 26.2 pg (25-34) Mean Corpuscular Hemoglobin Concent 31.4 g/dl (32-36) Platelet Count 371 K/uL (130-400) Mean Platelet Volume 9.0 fL (7.4-10.4) Neutrophils (%) (Auto) 68.6 % Lymphocytes (%) (Auto) 17.2 % Monocytes (%) (Auto) 12.7 % Eosinophils (%) (Auto) 0.3 % Basophils (%) (Auto) 0.2 % Neutrophils # (Auto) 7.89 K/uL (1.4-6.5) Lymphocytes # (Auto) 1.98 K/uL (1.2-3.4) Monocytes # (Auto) 1.46 K/uL (0.11-0.59) Eosinophils # (Auto) 0.03 K/uL (0-0.5) Basophils # (Auto) 0.02 K/uL (0-0.2) Immature Granulocyte # (Auto) 0.12 K/uL (0.00-0.02) Test 12/04/17 05:50 12/04/17 06:35 12/06/17 18:07 12/07/17 05:51 Albumin 2.7 gm/dl (3.4-5.0) Gastric Fluid pH 4 Gastric Fluid Occult Blood POS (NEG) Bedside Glucose 125 mg/dl (70-90) Red Blood Count 3.60 M/uL (4.2-5.4) Mean Corpuscular Volume 83.3 fL (80-100) Mean Corpuscular Hemoglobin 26.1 pg (25-34) Mean Corpuscular Hemoglobin Concent 31.3 g/dl (32-36) RDW Standard Deviation 46.8 fL (36.4-46.3) RDW Coefficient of Variation 15.3 % (11.5-14.5) Mean Platelet Volume 9.3 fL (7.4-10.4) Test 12/08/17 08:20 12/09/17 07:51 Triglycerides Level 86 mg/dl (0-150) Anion Gap 9.0 mmol/L (3-11) Est Creatinine Clear Calc Drug Dose 105.3 ml/min Estimated GFR () 122.9 Estimated GFR (Non- 106.1 BUN/Creatinine Ratio 35.2 (10-20) Calcium Level 9.6 mg/dl (8.5-10.1) Phosphorus Level 3.9 mg/dl (2.5-4.9) Magnesium Level 2.4 mg/dl (1.8-2.4) Date/Time Source Procedure Growth Status 11/26/17 06:04 Peritoneal Fluid Gram Stain - Final Complete 11/26/17 06:04 Peritoneal Fluid Bacterial Culture - Final NO GROWTH Complete Last 24 Hours Test 12/09/17 07:51 Sodium Level 135 mmol/L Potassium Level 4.0 mmol/L Chloride Level 106 mmol/L Carbon Dioxide Level 20 mmol/L Anion Gap 9.0 mmol/L Blood Urea Nitrogen 18 mg/dl Creatinine 0.52 mg/dl Est Creatinine Clear Calc Drug Dose 105.3 ml/min Estimated GFR () 122.9 Estimated GFR (Non- 106.1 BUN/Creatinine Ratio 35.2 Random Glucose 115 mg/dl Calcium Level 9.6 mg/dl Phosphorus Level 3.9 mg/dl Magnesium Level 2.4 mg/dl Assessment & Plan 57 yo F presented with abdominal pain and SBO on 11/15. An NGT was placed and removed a few days later with patient tolerating clears. She got worse and the NGT was replaced with subsequent improvement, removal of the NGT and tolerating a regular diet. By 11/25 she was set to be discharged home but became acutely worse on 11/26, requiring surgery. Her post-operative course was complicated by a severe ileus, and the NGT was replaced and she was put on TPN while undergoing bowel rest. She is now at the point of tolerating clear liquids again and the NGT is planned to be removed this evening if she tolerates two meals of clears. SBFT study revealed contrast reaching her large intestine, although delayed in transit, and she has been having BMs. Pain is always an issue for her as she is chronically dependent on narcotics, but she is doing well so far and plans to transition to PO meds soon. Reports more stomach pain today. 1. SBO s/p ex lap release of SBO, small bowel decompression, enterolysis, EGD on 11/26 -drainage from incision and has been on Zosyn-KENROY drain removed -TPN-continue for now -tolerating clears, NGT removed over night -Phenol spray for throat discomfort -Pain -- Hydrocodone 10/325 TID PRN to control pain in lieu of Dilaudid as this is what she is on at home. -GI consulted--recs per notes 2. Tachycardia-likely related to being off BB. Will restart now 3. COPD-stable no wheezing on exam or SOB. Cont inhalers. 4. Chronic pain s/p multiple back and ortho surgeries in the past. As above. 5. Anemia-likely multifactorial related to daily phlebotomy and acute blood loss from surgery. No bleeding or need for transfusion at this time. Cont to monitor periodically. DVT PROPHYLAXIS: SCDs, ambulation Full Code Dispo-uncertain at this time. Dayana Lindsay DO [facility] Hospitalist. Consultants: Gastro Surgery Current Inpatient Medications: Current Inpatient Medications Medications (Trade) Dose Ordered Sig/Jennifer Route Start Time Stop Time Status Last Admin Dose Admin Ondansetron HCl (Zofran Inj) 4 mg Q6H PRN IV 11/15/17 09:45 12/15/17 09:44 12/05/17 10:29 4 MG Albuterol (Ventolin Hfa Inhaler) 1 puffs Q4 PRN INH 11/15/17 09:45 12/15/17 09:44 Aripiprazole (Abilify Tab) 30 mg QAM PO 11/16/17 09:00 12/16/17 08:59 12/09/17 08:29 30 MG Lorazepam (Ativan Tab) 1 mg BID PRN PO 11/15/17 09:45 12/15/17 09:44 12/09/17 08:27 1 MG Formoterol Fumarate (Perforomist 20MCG/2ML Neb Soln) 20 mcg BID INH 11/15/17 21:00 12/15/17 20:59 12/09/17 09:00 20 MCG Acetaminophen 650 mg/Empty Bag 65 ml @ 260 mls/hr Q6H PRN IV 11/20/17 00:30 12/20/17 00:29 11/30/17 22:41 260 MLS/HR Zolpidem Tartrate (Ambien Tab) 5 mg HS PRN PO 11/21/17 19:30 12/21/17 19:29 12/08/17 00:39 5 MG Menthol (Nice Brown) 1 brown Q2H PRN PO 11/21/17 19:45 12/21/17 19:44 Sodium Chloride ([place] Nasal [place]) 1 sprays PRN PRN NA 11/29/17 23:30 12/29/17 23:29 11/30/17 01:42 1 SPRAYS Fentanyl (Duragesic Patch) 25 mcg Q72H TD 11/30/17 13:30 12/14/17 13:29 12/09/17 14:07 25 MCG Miscellaneous (Fentanyl Patch Remove & Waste) 1 ea Q3D N/A 12/03/17 13:30 01/02/18 13:29 12/09/17 13:30 1 EA Miscellaneous Information (Check Fentanyl Patch Placement) 1 ea QS N/A 11/30/17 16:00 12/30/17 15:59 12/09/17 08:16 1 EA Promethazine HCl 12.5 mg/Sodium Chloride 50.5 ml @ 204 mls/hr Q6H PRN IV 12/01/17 09:45 12/31/17 09:44 12/03/17 20:27 204 MLS/HR Heparin Sodium (Porcine) (Heparin 10 Unit/ ml 5 ml Flush) 5 ml PRN PRN FLUSH 12/01/17 15:15 12/31/17 15:14 12/06/17 03:44 5 ML Miscellaneous Information (Pharmacy Tpn/ Ppn Consult Active) 1 ea UD PRN N/A 12/02/17 11:15 01/01/18 10:44 Dextrose 1,000 ml @ 0 mls/hr Q0M PRN IV 12/02/17 12:49 01/01/18 12:48 Piperacillin Sod/ Tazobactam Sod 3.375 gm/Dextrose 115 ml @ 28.75 mls/ hr Q8H IV 12/04/17 02:00 12/13/17 15:59 12/09/17 11:58 28.75 MLS/HR Miscellaneous Information (Consult) 1 ea UD PRN N/A 12/03/17 16:00 01/02/18 15:59 Metoprolol Tartrate (Lopressor Tab) 25 mg BID PO 12/04/17 21:00 01/03/18 20:59 Future Hold 12/07/17 20:47 25 MG Metoclopramide HCl (Reglan Inj) 5 mg Q6 IV. 12/05/17 13:00 01/04/18 12:59 12/09/17 11:59 5 MG Nutrition (Parenteral) 0 ml @ 0 mls/hr TODAY@1600 IV 12/08/17 16:00 12/09/17 15:59 12/08/17 16:15 0 MLS/HR Phenol (Chloraseptic 1.4% [place]) 2 sprays Q2H PRN MT 12/08/17 17:45 01/07/18 17:44 Acetaminophen/ Hydrocodone Bitart ([place] 10/325 Tab) 1 tab TID PRN PO 12/09/17 09:30 12/23/17 09:29 12/09/17 12:15 1 TAB Nutrition (Parenteral) 0 ml @ 0 mls/hr TODAY@1600 IV 12/09/17 16:00 12/10/17 15:59 Baclofen (Lioresal Tab) 10 mg TID PO 12/09/17 14:00 01/08/18 13:59 12/09/17 14:10 10 MG Buspirone HCl (Buspar Tab) 10 mg BID PO 12/09/17 21:00 01/08/18 20:59 Gabapentin (Neurontin Cap) 300 mg TID PO 12/09/17 14:00 01/08/18 13:59 12/09/17 14:09 300 MG Lamotrigine (Lamictal Tab) 25 mg BID PO 12/09/17 21:00 01/08/18 20:59 Lamotrigine (Lamictal Tab) 100 mg BID PO 12/09/17 21:00 01/08/18 20:59 Lubiprostone (Amitiza) 24 mcg BID PO 12/09/17 21:00 01/08/18 20:59 Pantoprazole Sodium (Protonix Tab) 40 mg BID PO 12/09/17 21:00 12/13/17 20:59
[2017-12-09 23:30] VITALS: BP 119/71; PULSE 90; TEMP 36.7; O2SAT 98
[2017-12-10] MEDS: METOCLOPRAMIDE HCL INJ 5 MG/ML 2 ML VIAL IV. SCH ×5 (00:25→23:32)
[2017-12-10] MEDS: CHECK FENTANYL PATCH PLACEMENT SCH ×4 (00:26→23:33)
[2017-12-10] MEDS: PIPERACILL/TAZOBAC IV 3.375 GM in DEXTROSE 5% 100ML 100 ML IV SCH ×3 (04:05→20:19)
[2017-12-10] MEDS: HYDROCODONE/ACETAMI 10/325 TAB PO PRN ×3 (06:14→23:31)
--- NOTE | 2017-12-10 06:36 | Surgery Progress Note ---
Surgery Progress Note Date of Service Dec 10, 2017. Subjective + feeling well, + bowel movement (Yesterday), + flatus, + pain controlled, + diet (Tolerating clears, but still reports a decreased appetite.), No complaints , No nausea, No vomiting KENROY out yesterday Objective Vital Signs: Date Time Temp Pulse Resp B/P (MAP) Pulse Ox O2 Delivery O2 Flow Rate FiO2 12/09/17 23:30 36.7 90 16 119/71 (87) 98 Room Air 12/09/17 20:10 96 16 96 Room Air 12/09/17 16:30 Room Air 12/09/17 15:02 36.9 101 16 108/74 (85) 96 Room Air 12/09/17 07:36 36.8 92 16 117/75 (89) 95 Room Air 12/09/17 07:30 Room Air General Appearance: WD/WN, no apparent distress Head: normocephalic, atraumatic Respiratory/Chest: no respiratory distress, no accessory muscle use Abdomen: soft, no organomegaly, no pulsatile mass, + distended (mild), + tenderness (Incisional) Incision(s): clean, dry, intact, no erythema, no drainage Laboratory Results: Results Past 24 Hours Test 12/09/17 07:51 Range/Units Sodium Level 135 136-145 mmol/L Potassium Level 4.0 3.5-5.1 mmol/L Chloride Level 106 98-107 mmol/L Carbon Dioxide Level 20 21-32 mmol/L Anion Gap 9.0 3-11 mmol/L Blood Urea Nitrogen 18 7-18 mg/dl Creatinine 0.52 0.60-1.20 mg/dl Est Creatinine Clear Calc Drug Dose 105.3 ml/min Estimated GFR () 122.9 Estimated GFR (Non- 106.1 BUN/Creatinine Ratio 35.2 10-20 Random Glucose 115 70-99 mg/dl Calcium Level 9.6 8.5-10.1 mg/dl Phosphorus Level 3.9 2.5-4.9 mg/dl Magnesium Level 2.4 1.8-2.4 mg/dl Assessment & Plan 12/10/17 Pain controlled, afebrile, tolerating clears but reports a decreased appetite, No N/V. + BM yesterday, + Flatus. Continue to increase activity. Stay on clears for now given her rate of progress - may advance later today if she is doing well. Will discuss findings with Dr. Coello. Please contact with questions or concerns. 12/09/17 Pain controlled, afebrile. NGT out, tolerating clears. No N/V. KENROY minimal drainage, serosanguinous. Continue clears for now, Continue TPN - Will advance diet slowly if she continues to tolerate. Continue to increase activity. Will discuss findings with Dr. Coello. Please contact with questions or concerns.
[2017-12-10] MEDS: FORMOTEROL FUMA NEBULIZER SOLN 20 MCG/2 ML VIAL INH SCH ×2 (07:14→19:30)
[2017-12-10 08:22] VITALS: BP 132/81; PULSE 90; TEMP 36.5; O2SAT 97
[2017-12-10] MEDS: METOPROLOL SUCC 50MG EXT REL TAB PO SCH (09:00)
[2017-12-10] MEDS: LUBIPROSTONE 8 MCG CAP PO SCH ×2 (09:41→20:24)
[2017-12-10] MEDS: ARIPIprazole TAB 15 MG TAB PO SCH (09:42)
[2017-12-10] MEDS: BACLOFEN 10 MG TAB PO SCH ×3 (09:44→20:23)
[2017-12-10] MEDS: GABAPENTIN 300 MG CAP PO SCH ×3 (09:45→20:23)
[2017-12-10] MEDS: PANTOprazole SOD 40 MG TAB PO SCH ×2 (09:45→20:23)
[2017-12-10 09:49] VITALS: BP 94/66
--- NOTE | 2017-12-10 12:34 | Gastroenterology Progress Note ---
Progress Note Date of Service: Dec 10, 2017 Subjective Pt evaluation today including: conversation w/ patient, conversation w/ family , physical exam, chart review, lab review GI was asked to re-evaluate the pt for abd pain. Chart was reviewed. Admitted through the ED on 11/15/17 for abdominal pain. Imaging on arrival was concerning for distal SBO, the pt was evaluated by surgery, started on conservative management. As pt failed to improve, pt underwent ex-lap for worsening abd pain w/ concern for pneumatosis on 11/26/17. Release of Small Bowel Obstruction w/ small bowel decompression. Pt re-developed abd pain, nausea.Pt notes D/C of NG tube as she was no longer having nausea. Starting to move her bowels, now w/ formed stools without any signs of rectal bleeding. She tells me she has constant dull abdominal pain. During interview, pt questions if her abdominal pain is from her incision. No nausea, vomiting. Tolerating an advancing diet. No fevers. UGI series 12/10/17: Findings compatible with persistent small bowel obstruction with delayed progression of oral contrast into the large bowel. At the end of the exam, there remains a large amount of contrast within the gastric lumen suggesting gastric outlet obstruction or gastroparesis. CT ABD/Pelvis 12/02/17: Persistent small bowel obstructive pattern No evidence of free intraperitoneal air. No evidence of portal venous gas Interval surgery with postsurgical changes involve the abdominal wall and placement of a right lower quadrant drain Bibasilar pulmonary opacities, likely atelectatic although a superimposed pneumonia could appear similar Stable mildly enlarged right inguinal lymph nodes CT ABD/Pelvis 11/15/17: Distal small bowel obstructive change of uncertain etiology.No evidence for colonic distention. No evidence for abscess or collection. Postoperative changes throughout the lumbar sacral spine and bony pelvis and right hip as described. 4 cm fluid pocket lateral to the right hip similar to and/or perhaps slightly increased in prominence compared to the prior study. This may relate to a postprocedural seroma Review of Systems Constitutional: No fever, No chills Respiratory: No cough, No shortness of breath Cardiac: No chest pain Abdomen: + pain, No nausea, No vomiting, No diarrhea, No constipation, No GI bleeding Medications Current Inpatient Medications Medications (Trade) Dose Ordered Sig/Jennifer Route Start Time Stop Time Status Last Admin Dose Admin Ondansetron HCl (Zofran Inj) 4 mg Q6H PRN IV 11/15/17 09:45 12/15/17 09:44 12/05/17 10:29 4 MG Albuterol (Ventolin Hfa Inhaler) 1 puffs Q4 PRN INH 11/15/17 09:45 12/15/17 09:44 Aripiprazole (Abilify Tab) 30 mg QAM PO 11/16/17 09:00 12/16/17 08:59 12/10/17 09:42 30 MG Lorazepam (Ativan Tab) 1 mg BID PRN PO 11/15/17 09:45 12/15/17 09:44 12/09/17 08:27 1 MG Formoterol Fumarate (Perforomist 20MCG/2ML Neb Soln) 20 mcg BID INH 11/15/17 21:00 12/15/17 20:59 12/09/17 20:09 20 MCG Acetaminophen 650 mg/Empty Bag 65 ml @ 260 mls/hr Q6H PRN IV 11/20/17 00:30 12/20/17 00:29 11/30/17 22:41 260 MLS/HR Zolpidem Tartrate (Ambien Tab) 5 mg HS PRN PO 11/21/17 19:30 12/21/17 19:29 12/08/17 00:39 5 MG Menthol (Nice Brown) 1 brown Q2H PRN PO 11/21/17 19:45 12/21/17 19:44 Sodium Chloride ([place] Nasal [place]) 1 sprays PRN PRN NA 11/29/17 23:30 12/29/17 23:29 11/30/17 01:42 1 SPRAYS Fentanyl (Duragesic Patch) 25 mcg Q72H TD 11/30/17 13:30 12/14/17 13:29 12/09/17 14:07 25 MCG Miscellaneous (Fentanyl Patch Remove & Waste) 1 ea Q3D N/A 12/03/17 13:30 01/02/18 13:29 12/09/17 13:30 1 EA Miscellaneous Information (Check Fentanyl Patch Placement) 1 ea QS N/A 11/30/17 16:00 12/30/17 15:59 12/10/17 08:00 1 EA Promethazine HCl 12.5 mg/Sodium Chloride 50.5 ml @ 204 mls/hr Q6H PRN IV 12/01/17 09:45 12/31/17 09:44 12/03/17 20:27 204 MLS/HR Heparin Sodium (Porcine) (Heparin 10 Unit/ ml 5 ml Flush) 5 ml PRN PRN FLUSH 12/01/17 15:15 12/31/17 15:14 12/06/17 03:44 5 ML Miscellaneous Information (Pharmacy Tpn/ Ppn Consult Active) 1 UD PRN N/A 12/02/17 11:15 01/01/18 10:44 Dextrose 1,000 ml @ 0 mls/hr Q0M PRN IV 12/02/17 12:49 01/01/18 12:48 Piperacillin Sod/ Tazobactam Sod 3.375 gm/Dextrose 115 ml @ 28.75 mls/ hr Q8H IV 12/04/17 02:00 12/13/17 15:59 12/10/17 04:05 28.75 MLS/HR Miscellaneous Information (Consult) 1 UD PRN N/A 12/03/17 16:00 01/02/18 15:59 Metoprolol Tartrate (Lopressor Tab) 25 mg BID PO 12/04/17 21:00 01/03/18 20:59 Future Hold 12/07/17 20:47 25 MG Metoclopramide HCl (Reglan Inj) 5 mg Q6 IV. 12/05/17 13:00 01/04/18 12:59 12/10/17 06:09 5 MG Phenol (Chloraseptic 1.4% [place]) 2 sprays Q2H PRN MT 12/08/17 17:45 01/07/18 17:44 Acetaminophen/ Hydrocodone Bitart ([place] 10/325 Tab) 1 tab TID PRN PO 12/09/17 09:30 12/23/17 09:29 12/10/17 06:14 1 TAB Nutrition (Parenteral) 0 ml @ 0 mls/hr TODAY@1600 IV 12/09/17 16:00 12/10/17 15:59 12/09/17 16:39 0 MLS/HR Baclofen (Lioresal Tab) 10 mg TID PO 12/09/17 14:00 01/08/18 13:59 12/10/17 09:44 10 MG Buspirone HCl (Buspar Tab) 10 mg BID PO 12/09/17 21:00 01/08/18 20:59 12/10/17 09:43 10 MG Gabapentin (Neurontin Cap) 300 mg TID PO 12/09/17 14:00 01/08/18 13:59 12/10/17 09:45 300 MG Lamotrigine (Lamictal Tab) 25 mg BID PO 12/09/17 21:00 01/08/18 20:59 12/10/17 09:43 25 MG Lamotrigine (Lamictal Tab) 100 mg BID PO 12/09/17 21:00 01/08/18 20:59 12/10/17 09:43 100 MG Lubiprostone (Amitiza) 24 mcg BID PO 12/09/17 21:00 01/08/18 20:59 12/10/17 09:41 24 MCG Pantoprazole Sodium (Protonix Tab) 40 mg BID PO 12/09/17 21:00 12/13/17 20:59 12/10/17 09:45 40 MG Metoprolol Succinate (Toprol Xl Tab) 25 mg QAM PO 12/10/17 09:00 01/09/18 08:59 Nutrition (Parenteral) 0 ml @ 0 mls/hr TODAY@1600 IV 12/10/17 16:00 12/11/17 15:59 Objective Vital Signs Date Time Temp Pulse Resp B/P (MAP) Pulse Ox O2 Delivery O2 Flow Rate FiO2 12/10/17 09:49 94/66 (75) 12/10/17 08:22 36.5 90 16 132/81 (98) 97 Room Air 12/09/17 23:30 36.7 90 16 119/71 (87) 98 Room Air 12/09/17 20:10 96 16 96 Room Air 12/09/17 16:30 Room Air 12/09/17 15:02 36.9 101 16 108/74 (85) 96 Room Air Physical Exam General Appearance: no apparent distress Eyes: PERRL ENT: hearing grossly normal Neck: supple Respiratory/Chest: lungs clear, normal breath sounds Cardiovascular: regular rate, rhythm Abdomen: normal bowel sounds, soft, no organomegaly, + tenderness (tender at site of incision) Neurologic/Psych: alert, normal mood/affect, oriented x 3 Skin: normal color Assessment and Plan 57 year old female w/ persist SBO despite ex-lap on 11/26/17 for decompression - NG was replaced after numerous failed attempts w/ concern of coffee ground output in the NG tube. GI was asked to re-evaluate the pt for abdominal pain. Pt is moving her bowels, notes her pain is localized to her incision site - Trial Bentyl 10 mg BID - Gastroparesis diet - Continue present medications as prescribed - Would suggest to limit narcotics and antimotility agents - No role for repeat EGD/Colonoscopy at the present time - If there are any acute changes, questions, concerns please call. GI to sign off. I saw and evaluated the patient. She is known to our service for a long history of irritable bowel syndrome and complications from her prior Alem fundoplication. Today we are consult at for persistent pain after a lysis of adhesions performed due to persistent small bowel obstruction. Physical examination No distress No icterus Impression: Patient with epigastric discomfort likely related to her recent incision. We can certainly restart the patient on Bentyl 10 mg 3 times a day and have her follow-up in our office as an outpatient in a few months. Please call with any questions or concerns during the remainder of the admission
[2017-12-10 15:49] VITALS: BP 106/70; PULSE 84; TEMP 36.9; O2SAT 96
[2017-12-10] MEDS ORDERED: CUSTOM CENTRAL PN 1 BAG IV SCH (16:00)
[2017-12-10 19:31] VITALS: PULSE 84; O2SAT 96
[2017-12-10] MEDS: DICYCLOMINE HCL 20 MG TAB PO SCH (20:24)
--- NOTE | 2017-12-10 21:25 | Progress Note ---
Medicine Progress Note Date & Time of Visit: Dec 10, 2017 at 19:39. Subjective stomach pain is still present. GI re-engaged with her (they know her well from clinic) and restarted her Bentyl. Otherwise doing well and plans to progress to full meal tonight and wean off TPN. Objective Last 8 Hrs Date Time Temp Pulse Resp B/P (MAP) Pulse Ox O2 Delivery O2 Flow Rate FiO2 12/10/17 19:31 84 16 96 Room Air 12/10/17 15:49 36.9 84 17 106/70 (82) 96 Room Air Physical Exam: GEN: WNWD, in no acute distress, alert and appropriate HEENT: NC/AT, PERRL, normal sclerae, MMM CARDIO: reg rate, S1/2 heard without m/g/r LUNGS: CTA bilaterally, no crackles, rales or wheezes, good diaphragmatic excursion ABD: soft, nondistended, nontender Midline incision with portia intact above and below small 3cm area of open wound with minimal serous drainage. No erythema. EXTREMITY: RP and DP palpable 2+ bilat, no LE swelling or edema, extremities are warm and well-perfused NEURO: CN 2-12 grossly intact MUSC: 5/5 strength throughout, no gross focal deficits SKIN: warm and dry and wound as above. Laboratory Results: 12/07/17 05:51 12/09/17 07:51 Test 11/15/17 03:57 11/15/17 13:03 11/16/17 05:25 11/16/17 23:11 Prothrombin Time 11.2 SECONDS (9.0-12.0) Prothromb Time International Ratio 1.1 (0.9-1.1) Total Bilirubin 0.3 mg/dl (0.2-1) Aspartate Amino Transf (AST/SGOT) 15 U/L (15-37) Alanine Aminotransferase (ALT/SGPT) 13 U/L (12-78) Alkaline Phosphatase 89 U/L (45-117) Total Protein 8.4 gm/dl (6.4-8.2) Globulin 5.1 gm/dl (2.5-4.0) Albumin/Globulin Ratio 0.6 (0.9-2) Lipase 91 U/L (73-393) Chemistry Specimen Hemolysis Erythrocyte Sedimentation Rate 60 mm/hr (0-21) C-Reactive Protein 1.80 mg/dl (0-0.29) Estimated Average Glucose 103 mg/dl Hemoglobin A1c 5.2 % (4.5-5.6) Vancomycin Level Trough 12.0 mcg/ml (SEE COMMENT) Test 11/17/17 06:06 11/18/17 07:42 11/24/17 06:54 11/26/17 04:36 Toxic Vacuolation 1+ Poikilocytosis PRESENT Red Blood Cell Morphology Unremarkable Lactic Acid Level 1.4 mmol/L (0.4-2.0) Test 11/28/17 05:35 11/29/17 05:43 11/30/17 05:52 12/02/17 04:35 Total Creatine Kinase 198 U/L (26-192) Creatine Kinase MB 1.9 ng/ml (0.5-3.6) Creatine Kinase MB Ratio 1.0 (0-3.0) Troponin I < 0.015 ng/ml (0-0.045) Hypochromasia PRESENT Nucleated RBC Absolute Count (auto) 0.02 K/uL (0-0) Nucleated Red Blood Cells % 0.2 % Immature Granulocyte % (Auto) 1.0 % White Blood Count 11.50 K/uL (4.8-10.8) Red Blood Count 3.59 M/uL (4.2-5.4) Hemoglobin 9.4 g/dL (12.0-16.0) Hematocrit 29.9 % (37-47) Mean Corpuscular Volume 83.3 fL (80-100) Mean Corpuscular Hemoglobin 26.2 pg (25-34) Mean Corpuscular Hemoglobin Concent 31.4 g/dl (32-36) Platelet Count 371 K/uL (130-400) Mean Platelet Volume 9.0 fL (7.4-10.4) Neutrophils (%) (Auto) 68.6 % Lymphocytes (%) (Auto) 17.2 % Monocytes (%) (Auto) 12.7 % Eosinophils (%) (Auto) 0.3 % Basophils (%) (Auto) 0.2 % Neutrophils # (Auto) 7.89 K/uL (1.4-6.5) Lymphocytes # (Auto) 1.98 K/uL (1.2-3.4) Monocytes # (Auto) 1.46 K/uL (0.11-0.59) Eosinophils # (Auto) 0.03 K/uL (0-0.5) Basophils # (Auto) 0.02 K/uL (0-0.2) Immature Granulocyte # (Auto) 0.12 K/uL (0.00-0.02) Test 12/04/17 05:50 12/04/17 06:35 12/06/17 18:07 12/07/17 05:51 Albumin 2.7 gm/dl (3.4-5.0) Gastric Fluid pH 4 Gastric Fluid Occult Blood POS (NEG) Bedside Glucose 125 mg/dl (70-90) Red Blood Count 3.60 M/uL (4.2-5.4) Mean Corpuscular Volume 83.3 fL (80-100) Mean Corpuscular Hemoglobin 26.1 pg (25-34) Mean Corpuscular Hemoglobin Concent 31.3 g/dl (32-36) RDW Standard Deviation 46.8 fL (36.4-46.3) RDW Coefficient of Variation 15.3 % (11.5-14.5) Mean Platelet Volume 9.3 fL (7.4-10.4) Test 12/08/17 08:20 12/09/17 07:51 Triglycerides Level 86 mg/dl (0-150) Anion Gap 9.0 mmol/L (3-11) Est Creatinine Clear Calc Drug Dose 105.3 ml/min Estimated GFR () 122.9 Estimated GFR (Non- 106.1 BUN/Creatinine Ratio 35.2 (10-20) Calcium Level 9.6 mg/dl (8.5-10.1) Phosphorus Level 3.9 mg/dl (2.5-4.9) Magnesium Level 2.4 mg/dl (1.8-2.4) Date/Time Source Procedure Growth Status 11/26/17 06:04 Peritoneal Fluid Gram Stain - Final Complete 11/26/17 06:04 Peritoneal Fluid Bacterial Culture - Final NO GROWTH Complete Assessment & Plan 57 yo F presented with abdominal pain and SBO on 11/15. An NGT was placed and removed a few days later with patient tolerating clears. She got worse and the NGT was replaced with subsequent improvement, removal of the NGT and tolerating a regular diet. By 11/25 she was set to be discharged home but became acutely worse on 11/26, requiring surgery. Her post-operative course was complicated by a severe ileus, and the NGT was replaced and she was put on TPN while undergoing bowel rest. She is now at the point of tolerating clear liquids again and the NGT is planned to be removed this evening if she tolerates two meals of clears. SBFT study revealed contrast reaching her large intestine, although delayed in transit, and she has been having BMs. Pain is always an issue for her as she is chronically dependent on narcotics, but she is doing well so far and plans to transition to PO meds soon. Reports more stomach pain today. 12/10: stomach pain is still present. GI re-engaged with her (they know her well from clinic) and restarted her Bentyl. Otherwise doing well and plans to progress to full meal tonight and wean off TPN. 1. SBO s/p ex lap release of SBO, small bowel decompression, enterolysis, EGD on 11/26 -drainage from incision and has been on Zosyn-KENROY drain removed. Wound was exposed during this encounter and there is a small portion that is open and not stapled with the rest of the portia in place. Incision is otherwise healing well. -TPN-holding. -tolerating clears -Pain -- Hydrocodone 10/325 TID PRN to control pain in lieu of Dilaudid as this is what she is on at home. -GI consulted--rec minimizing narcotics and added Bentyl 2. Tachycardia-resolved after adding her BB back. 3. COPD-stable no wheezing on exam or SOB. Cont inhalers. 4. Chronic pain s/p multiple back and ortho surgeries in the past. As above. 5. Anemia-likely multifactorial related to daily phlebotomy and acute blood loss from surgery. No bleeding or need for transfusion at this time. Cont to monitor periodically. DVT PROPHYLAXIS: SCDs, ambulation Full Code Dispo-uncertain at this time. Dayana Lindsay DO [facility] Hospitalist. Consultants: Gastro Surgery Current Inpatient Medications: Current Inpatient Medications Medications (Trade) Dose Ordered Sig/Jennifer Route Start Time Stop Time Status Last Admin Dose Admin Ondansetron HCl (Zofran Inj) 4 mg Q6H PRN IV 11/15/17 09:45 12/15/17 09:44 12/05/17 10:29 4 MG Albuterol (Ventolin Hfa Inhaler) 1 puffs Q4 PRN INH 11/15/17 09:45 12/15/17 09:44 Aripiprazole (Abilify Tab) 30 mg QAM PO 11/16/17 09:00 12/16/17 08:59 12/10/17 09:42 30 MG Lorazepam (Ativan Tab) 1 mg BID PRN PO 11/15/17 09:45 12/15/17 09:44 12/09/17 08:27 1 MG Formoterol Fumarate (Perforomist 20MCG/2ML Neb Soln) 20 mcg BID INH 11/15/17 21:00 12/15/17 20:59 12/10/17 19:30 20 MCG Acetaminophen 650 mg/Empty Bag 65 ml @ 260 mls/hr Q6H PRN IV 11/20/17 00:30 12/20/17 00:29 11/30/17 22:41 260 MLS/HR Zolpidem Tartrate (Ambien Tab) 5 mg HS PRN PO 11/21/17 19:30 12/21/17 19:29 12/08/17 00:39 5 MG Menthol (Nice Brown) 1 brown Q2H PRN PO 11/21/17 19:45 12/21/17 19:44 Sodium Chloride ([place] Nasal [place]) 1 sprays PRN PRN NA 11/29/17 23:30 12/29/17 23:29 11/30/17 01:42 1 SPRAYS Fentanyl (Duragesic Patch) 25 mcg Q72H TD 11/30/17 13:30 12/14/17 13:29 12/09/17 14:07 25 MCG Miscellaneous (Fentanyl Patch Remove & Waste) 1 ea Q3D N/A 12/03/17 13:30 01/02/18 13:29 12/09/17 13:30 1 EA Miscellaneous Information (Check Fentanyl Patch Placement) 1 ea QS N/A 11/30/17 16:00 12/30/17 15:59 12/10/17 16:00 1 EA Promethazine HCl 12.5 mg/Sodium Chloride 50.5 ml @ 204 mls/hr Q6H PRN IV 12/01/17 09:45 12/31/17 09:44 12/03/17 20:27 204 MLS/HR Heparin Sodium (Porcine) (Heparin 10 Unit/ ml 5 ml Flush) 5 ml PRN PRN FLUSH 12/01/17 15:15 12/31/17 15:14 12/06/17 03:44 5 ML Miscellaneous Information (Pharmacy Tpn/ Ppn Consult Active) 1 ea UD PRN N/A 12/02/17 11:15 01/01/18 10:44 Dextrose 1,000 ml @ 0 mls/hr Q0M PRN IV 12/02/17 12:49 01/01/18 12:48 Piperacillin Sod/ Tazobactam Sod 3.375 gm/Dextrose 115 ml @ 28.75 mls/ hr Q8H IV 12/04/17 02:00 12/13/17 15:59 12/10/17 12:53 28.75 MLS/HR Miscellaneous Information (Consult) 1 ea UD PRN N/A 12/03/17 16:00 01/02/18 15:59 Metoprolol Tartrate (Lopressor Tab) 25 mg BID PO 12/04/17 21:00 01/03/18 20:59 Future Hold 12/07/17 20:47 25 MG Metoclopramide HCl (Reglan Inj) 5 mg Q6 IV. 12/05/17 13:00 01/04/18 12:59 12/10/17 18:04 5 MG Phenol (Chloraseptic 1.4% [place]) 2 sprays Q2H PRN MT 12/08/17 17:45 01/07/18 17:44 Acetaminophen/ Hydrocodone Bitart ([place] 10/325 Tab) 1 tab TID PRN PO 12/09/17 09:30 12/23/17 09:29 12/10/17 14:03 1 TAB Baclofen (Lioresal Tab) 10 mg TID PO 12/09/17 14:00 01/08/18 13:59 12/10/17 14:01 10 MG Buspirone HCl (Buspar Tab) 10 mg BID PO 12/09/17 21:00 01/08/18 20:59 12/10/17 09:43 10 MG Gabapentin (Neurontin Cap) 300 mg TID PO 12/09/17 14:00 01/08/18 13:59 12/10/17 14:01 300 MG Lamotrigine (Lamictal Tab) 25 mg BID PO 12/09/17 21:00 01/08/18 20:59 12/10/17 09:43 25 MG Lamotrigine (Lamictal Tab) 100 mg BID PO 12/09/17 21:00 01/08/18 20:59 12/10/17 09:43 100 MG Lubiprostone (Amitiza) 24 mcg BID PO 12/09/17 21:00 01/08/18 20:59 12/10/17 09:41 24 MCG Pantoprazole Sodium (Protonix Tab) 40 mg BID PO 12/09/17 21:00 12/13/17 20:59 12/10/17 09:45 40 MG Metoprolol Succinate (Toprol Xl Tab) 25 mg QAM PO 12/10/17 09:00 01/09/18 08:59 Nutrition (Parenteral) 0 ml @ 0 mls/hr TODAY@1600 IV 12/10/17 16:00 12/11/17 15:59 12/10/17 16:53 0 MLS/HR Dicyclomine HCl (Bentyl Tab) 10 mg BID PO 12/10/17 21:00 01/09/18 20:59
[2017-12-10 22:56] VITALS: BP 103/69; PULSE 84; TEMP 36.8; O2SAT 96
[2017-12-11] MEDS: PIPERACILL/TAZOBAC IV 3.375 GM in DEXTROSE 5% 100ML 100 ML IV SCH (04:24)
[2017-12-11] MEDS: METOCLOPRAMIDE HCL INJ 5 MG/ML 2 ML VIAL IV. SCH ×3 (06:05→18:28)
[2017-12-11 06:49] LABS: HEMATOCRIT 27.6 % (37-47); HEMOGLOBIN 8.6 g/dL (12.0-16.0); MEAN CELL VOLUME 83.4 fL (80-100); MEAN CORPUSCULAR HGB CONC 31.2 g/dl (32-36); MEAN PLATELET VOLUME 9.2 fL (7.4-10.4); PLATELET COUNT 374 K/uL (130-400); RED CELL DISTRIBUTION WIDTH CV 15.5 % (11.5-14.5); RED CELL DISTRIBUTION WIDTH SD 47.6 fL (36.4-46.3); WHITE BLOOD COUNT 6.82 K/uL (4.8-10.8)
[2017-12-11 07:19] LABS: CALCIUM 8.5 mg/dl (8.5-10.1); CREATININE 0.55 mg/dl (0.60-1.20); POTASSIUM 3.6 mmol/L (3.5-5.1)
[2017-12-11 07:20] LABS: PHOSPHORUS 3.9 mg/dl (2.5-4.9)
[2017-12-11] MEDS: FORMOTEROL FUMA NEBULIZER SOLN 20 MCG/2 ML VIAL INH SCH ×2 (07:33→19:33)
[2017-12-11 07:40] VITALS: BP 123/80; PULSE 95; TEMP 36.8; O2SAT 96
[2017-12-11] MEDS: CHECK FENTANYL PATCH PLACEMENT SCH ×2 (08:00→16:17)
--- NOTE | 2017-12-11 08:06 | Surgery Progress Note ---
Surgery Progress Note Date of Service Dec 11, 2017. Subjective no new complaints. tolerated some pot roast last night. Objective Vital Signs: Date Time Temp Pulse Resp B/P (MAP) Pulse Ox O2 Delivery O2 Flow Rate FiO2 12/11/17 07:40 36.8 95 16 123/80 (94) 96 Room Air 12/10/17 23:30 Room Air 12/10/17 22:56 36.8 84 16 103/69 (80) 96 Room Air 12/10/17 19:31 84 16 96 Room Air 12/10/17 17:00 Room Air 12/10/17 15:49 36.9 84 17 106/70 (82) 96 Room Air 12/10/17 09:49 94/66 (75) 12/10/17 09:00 Room Air 12/10/17 08:22 36.5 90 16 132/81 (98) 97 Room Air General Appearance: no apparent distress Abdomen: non tender, non distended, soft Laboratory Results: Results Past 24 Hours Test 12/11/17 06:24 Range/Units White Blood Count 6.82 4.8-10.8 K/uL Red Blood Count 3.31 4.2-5.4 M/uL Hemoglobin 8.6 12.0-16.0 g/dL Hematocrit 27.6 37-47 % Mean Corpuscular Volume 83.4 80-100 fL Mean Corpuscular Hemoglobin 26.0 25-34 pg Mean Corpuscular Hemoglobin Concent 31.2 32-36 g/dl RDW Standard Deviation 47.6 36.4-46.3 fL RDW Coefficient of Variation 15.5 11.5-14.5 % Platelet Count 374 130-400 K/uL Mean Platelet Volume 9.2 7.4-10.4 fL Sodium Level 136 136-145 mmol/L Potassium Level 3.6 3.5-5.1 mmol/L Chloride Level 105 98-107 mmol/L Carbon Dioxide Level 25 21-32 mmol/L Anion Gap 6.0 3-11 mmol/L Blood Urea Nitrogen 18 7-18 mg/dl Creatinine 0.55 0.60-1.20 mg/dl Est Creatinine Clear Calc Drug Dose 99.5 ml/min Estimated GFR () 120.7 Estimated GFR (Non- 104.1 BUN/Creatinine Ratio 32.2 10-20 Random Glucose 120 70-99 mg/dl Calcium Level 8.5 8.5-10.1 mg/dl Phosphorus Level 3.9 2.5-4.9 mg/dl Magnesium Level 1.7 1.8-2.4 mg/dl Total Bilirubin 0.2 0.2-1 mg/dl Aspartate Amino Transf (AST/SGOT) 13 15-37 U/L Alanine Aminotransferase (ALT/SGPT) 37 12-78 U/L Alkaline Phosphatase 72 45-117 U/L Prealbumin 30.3 20-40 mg/dl Assessment & Plan 12/11/17 doing well rec weaning tpn d/c planning Dr. Freed covering weekend if any issues 12/08/17 essentially had an ngt clamping trial that past 24 hours. no n/v. gi transit slow but contrast in colon will let her drink around ngt. if she tolerates we can pull ngt and let her continue to drink cont to increase activity cont tpn for now 12/07/17 SBFT initiated hopefully if contrast gets though we can d/c ngt and start clears 12/06/17 SBFT tomorrow NGT drainage decreasing if sbft looks ok will try and clamp ngt and pull/start clears soon 12/05/17 no new changes will obtain a sbft to eval sbo vs psbo vs ileus keep ngt/tpn for now wbc decreased 12/03/16 somewhat improved today keep ngt/tpn will check KUB tomorrow suspect severe ileus may need sbft to better assess at some point POD 6 suspect severe ileus ( anticipated). pt pulled ngt and refused replacement previously. in light of pain, distension, and slightly increased wbc, will obtain ct scan...will have to be without oral contrast as patient will not tolerate it. picc placed. would consider TPN. pt will not be eating normally any time soon. cont antibiotics continue local wound care. KENROY serous. 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 doing ok. pre-op pain is resolved anticipate post op ileus ( possibly severe). unable to place NGT b/c of prior gastric fundoplication [facility] covering this weekend. 12/08/17 essentially had an ngt clamping trial that past 24 hours. no n/v. gi transit slow but contrast in colon will let her drink around ngt. if she tolerates we can pull ngt and let her continue to drink cont to increase activity cont tpn for now 12/07/17 SBFT initiated hopefully if contrast gets though we can d/c ngt and start clears 12/06/17 SBFT tomorrow NGT drainage decreasing if sbft looks ok will try and clamp ngt and pull/start clears soon 12/05/17 no new changes will obtain a sbft to eval sbo vs psbo vs ileus keep ngt/tpn for now wbc decreased 12/03/16 somewhat improved today keep ngt/tpn will check KUB tomorrow suspect severe ileus may need sbft to better assess at some point POD 6 suspect severe ileus ( anticipated). pt pulled ngt and refused replacement previously. in light of pain, distension, and slightly increased wbc, will obtain ct scan...will have to be without oral contrast as patient will not tolerate it. picc placed. would consider TPN. pt will not be eating normally any time soon. cont antibiotics continue local wound care. KENROY serous. 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 doing ok. pre-op pain is resolved anticipate post op ileus ( possibly severe). unable to place NGT b/c of prior gastric fundoplication [facility] covering this weekend.
[2017-12-11] MEDS: LUBIPROSTONE 8 MCG CAP PO SCH ×2 (11:05→20:52)
[2017-12-11] MEDS: ARIPIprazole TAB 15 MG TAB PO SCH (11:06)
[2017-12-11] MEDS: BACLOFEN 10 MG TAB PO SCH ×3 (11:07→20:50)
[2017-12-11] MEDS: GABAPENTIN 300 MG CAP PO SCH ×3 (11:07→20:51)
[2017-12-11] MEDS: DICYCLOMINE HCL 20 MG TAB PO SCH ×2 (11:08→21:20)
[2017-12-11] MEDS: PANTOprazole SOD 40 MG TAB PO SCH ×2 (11:08→21:22)
[2017-12-11] MEDS: LORAZEPAM 1 MG TAB PO PRN (11:40)
[2017-12-11] MEDS: HYDROCODONE/ACETAMI 10/325 TAB PO PRN ×2 (11:40→21:28)
[2017-12-11] MEDS: ENOXAPARIN 40 MG/0.4 ML SYR SQ SCH (11:40)
[2017-12-11] MEDS: MAGNESIUM SULFATE 1GM / D5W 1 GM in PREMIXED IN D5W 100 ML IV SCH ×2 (11:40→12:59)
[2017-12-11] MEDS: METOPROLOL SUCC 50MG EXT REL TAB PO SCH (11:42)
[2017-12-11 16:12] VITALS: BP 98/64; PULSE 91; TEMP 37; O2SAT 94
--- NOTE | 2017-12-11 18:12 | Progress Note ---
Medicine Progress Note Date & Time of Visit: Dec 11, 2017 at 18:09. Subjective -tolerating reg diet -pain is well controlled -overall improved. Objective Last 8 Hrs Date Time Temp Pulse Resp B/P (MAP) Pulse Ox O2 Delivery O2 Flow Rate FiO2 12/11/17 16:12 37.0 91 18 98/64 (75) 94 Room Air Physical Exam: GEN: WNWD, in no acute distress, alert and appropriate HEENT: NC/AT, PERRL, normal sclerae, MMM CARDIO: reg rate, S1/2 heard without m/g/r LUNGS: CTA bilaterally, no crackles, rales or wheezes, good diaphragmatic excursion ABD: soft, nondistended, nontender Midline incision with portia intact, no erythema or drainage. EXTREMITY: RP and DP palpable 2+ bilat, no LE swelling or edema, extremities are warm and well-perfused NEURO: CN 2-12 grossly intact MUSC: 5/5 strength throughout, no gross focal deficits SKIN: warm and dry and wound as above. Laboratory Results: 12/11/17 06:24 12/11/17 06:24 Test 11/15/17 03:57 11/15/17 13:03 11/16/17 05:25 11/16/17 23:11 Prothrombin Time 11.2 SECONDS (9.0-12.0) Prothromb Time International Ratio 1.1 (0.9-1.1) Total Protein 8.4 gm/dl (6.4-8.2) Globulin 5.1 gm/dl (2.5-4.0) Albumin/Globulin Ratio 0.6 (0.9-2) Lipase 91 U/L (73-393) Chemistry Specimen Hemolysis Erythrocyte Sedimentation Rate 60 mm/hr (0-21) C-Reactive Protein 1.80 mg/dl (0-0.29) Estimated Average Glucose 103 mg/dl Hemoglobin A1c 5.2 % (4.5-5.6) Vancomycin Level Trough 12.0 mcg/ml (SEE COMMENT) Test 11/17/17 06:06 11/18/17 07:42 11/24/17 06:54 11/26/17 04:36 Toxic Vacuolation 1+ Poikilocytosis PRESENT Red Blood Cell Morphology Unremarkable Lactic Acid Level 1.4 mmol/L (0.4-2.0) Test 11/28/17 05:35 11/29/17 05:43 11/30/17 05:52 12/02/17 04:35 Total Creatine Kinase 198 U/L (26-192) Creatine Kinase MB 1.9 ng/ml (0.5-3.6) Creatine Kinase MB Ratio 1.0 (0-3.0) Troponin I < 0.015 ng/ml (0-0.045) Hypochromasia PRESENT Nucleated RBC Absolute Count (auto) 0.02 K/uL (0-0) Nucleated Red Blood Cells % 0.2 % Immature Granulocyte % (Auto) 1.0 % White Blood Count 11.50 K/uL (4.8-10.8) Red Blood Count 3.59 M/uL (4.2-5.4) Hemoglobin 9.4 g/dL (12.0-16.0) Hematocrit 29.9 % (37-47) Mean Corpuscular Volume 83.3 fL (80-100) Mean Corpuscular Hemoglobin 26.2 pg (25-34) Mean Corpuscular Hemoglobin Concent 31.4 g/dl (32-36) Platelet Count 371 K/uL (130-400) Mean Platelet Volume 9.0 fL (7.4-10.4) Neutrophils (%) (Auto) 68.6 % Lymphocytes (%) (Auto) 17.2 % Monocytes (%) (Auto) 12.7 % Eosinophils (%) (Auto) 0.3 % Basophils (%) (Auto) 0.2 % Neutrophils # (Auto) 7.89 K/uL (1.4-6.5) Lymphocytes # (Auto) 1.98 K/uL (1.2-3.4) Monocytes # (Auto) 1.46 K/uL (0.11-0.59) Eosinophils # (Auto) 0.03 K/uL (0-0.5) Basophils # (Auto) 0.02 K/uL (0-0.2) Immature Granulocyte # (Auto) 0.12 K/uL (0.00-0.02) Test 12/04/17 05:50 12/04/17 06:35 12/06/17 18:07 12/08/17 08:20 Albumin 2.7 gm/dl (3.4-5.0) Gastric Fluid pH 4 Gastric Fluid Occult Blood POS (NEG) Bedside Glucose 125 mg/dl (70-90) Triglycerides Level 86 mg/dl (0-150) Test 12/11/17 06:24 Red Blood Count 3.31 M/uL (4.2-5.4) Mean Corpuscular Volume 83.4 fL (80-100) Mean Corpuscular Hemoglobin 26.0 pg (25-34) Mean Corpuscular Hemoglobin Concent 31.2 g/dl (32-36) RDW Standard Deviation 47.6 fL (36.4-46.3) RDW Coefficient of Variation 15.5 % (11.5-14.5) Mean Platelet Volume 9.2 fL (7.4-10.4) Anion Gap 6.0 mmol/L (3-11) Est Creatinine Clear Calc Drug Dose 99.5 ml/min Estimated GFR () 120.7 Estimated GFR (Non- 104.1 BUN/Creatinine Ratio 32.2 (10-20) Calcium Level 8.5 mg/dl (8.5-10.1) Phosphorus Level 3.9 mg/dl (2.5-4.9) Magnesium Level 1.7 mg/dl (1.8-2.4) Total Bilirubin 0.2 mg/dl (0.2-1) Aspartate Amino Transf (AST/SGOT) 13 U/L (15-37) Alanine Aminotransferase (ALT/SGPT) 37 U/L (12-78) Alkaline Phosphatase 72 U/L (45-117) Prealbumin 30.3 mg/dl (20-40) Date/Time Source Procedure Growth Status 11/26/17 06:04 Peritoneal Fluid Gram Stain - Final Complete 11/26/17 06:04 Peritoneal Fluid Bacterial Culture - Final NO GROWTH Complete Last 24 Hours Test 12/11/17 06:24 White Blood Count 6.82 K/uL Red Blood Count 3.31 M/uL Hemoglobin 8.6 g/dL Hematocrit 27.6 % Mean Corpuscular Volume 83.4 fL Mean Corpuscular Hemoglobin 26.0 pg Mean Corpuscular Hemoglobin Concent 31.2 g/dl RDW Standard Deviation 47.6 fL RDW Coefficient of Variation 15.5 % Platelet Count 374 K/uL Mean Platelet Volume 9.2 fL Sodium Level 136 mmol/L Potassium Level 3.6 mmol/L Chloride Level 105 mmol/L Carbon Dioxide Level 25 mmol/L Anion Gap 6.0 mmol/L Blood Urea Nitrogen 18 mg/dl Creatinine 0.55 mg/dl Est Creatinine Clear Calc Drug Dose 99.5 ml/min Estimated GFR () 120.7 Estimated GFR (Non- 104.1 BUN/Creatinine Ratio 32.2 Random Glucose 120 mg/dl Calcium Level 8.5 mg/dl Phosphorus Level 3.9 mg/dl Magnesium Level 1.7 mg/dl Total Bilirubin 0.2 mg/dl Aspartate Amino Transf (AST/SGOT) 13 U/L Alanine Aminotransferase (ALT/SGPT) 37 U/L Alkaline Phosphatase 72 U/L Prealbumin 30.3 mg/dl Assessment & Plan 57 yo F presented with abdominal pain and SBO on 11/15. An NGT was placed and removed a few days later with patient tolerating clears. She got worse and the NGT was replaced with subsequent improvement, removal of the NGT and tolerating a regular diet. By 11/25 she was set to be discharged home but became acutely worse on 11/26, requiring surgery. Her post-operative course was complicated by a severe ileus, and the NGT was replaced and she was put on TPN while undergoing bowel rest. She is now at the point of tolerating clear liquids again and the NGT is planned to be removed this evening if she tolerates two meals of clears. SBFT study revealed contrast reaching her large intestine, although delayed in transit, and she has been having BMs. Pain is always an issue for her as she is chronically dependent on narcotics, but she is doing well so far and plans to transition to PO meds soon. Reports more stomach pain today. 12/10: stomach pain is still present. GI re-engaged with her (they know her well from clinic) and restarted her Bentyl. Otherwise doing well and plans to progress to full meal tonight and wean off TPN. 12/11: tolerating reg diet, off TPN, intermittent abdominal pain but it is improved today. Low energy level but got into chair and ambulated with PT. Discussed discharge plans. 1. SBO s/p ex lap release of SBO, small bowel decompression, enterolysis, EGD on 11/26. Zosyn stopped after discussion with Dr. Coello. Tolerating reg food , TPN stopped. Pain control with hydrocodone and Bentyl-improved. Small area inside incision that is to close by secondary intention. 2. COPD-stable no wheezing on exam or SOB. Cont inhalers. 3. Chronic pain s/p multiple back and ortho surgeries in the past. As above. 4. Anemia-likely multifactorial related to daily phlebotomy and acute blood loss from surgery. No bleeding or need for transfusion at this time. Cont to monitor periodically. DVT PROPHYLAXIS: Lovenox. Full Code Dispo-in next 1-2 days. DO [facility] Hospitalist. Consultants: [facility] Current Inpatient Medications: Current Inpatient Medications Medications (Trade) Dose Ordered Sig/Jennifer Route Start Time Stop Time Status Last Admin Dose Admin Ondansetron HCl (Zofran Inj) 4 mg Q6H PRN IV 11/15/17 09:45 12/15/17 09:44 12/05/17 10:29 4 MG Albuterol (Ventolin Hfa Inhaler) 1 puffs Q4 PRN INH 11/15/17 09:45 12/15/17 09:44 Aripiprazole (Abilify Tab) 30 mg QAM PO 11/16/17 09:00 12/16/17 08:59 12/11/17 11:06 30 MG Lorazepam (Ativan Tab) 1 mg BID PRN PO 11/15/17 09:45 12/15/17 09:44 12/11/17 11:40 1 MG Formoterol Fumarate (Perforomist 20MCG/2ML Neb Soln) 20 mcg BID INH 11/15/17 21:00 12/15/17 20:59 12/10/17 19:30 20 MCG Acetaminophen 650 mg/Empty Bag 65 ml @ 260 mls/hr Q6H PRN IV 11/20/17 00:30 12/20/17 00:29 11/30/17 22:41 260 MLS/HR Zolpidem Tartrate (Ambien Tab) 5 mg HS PRN PO 11/21/17 19:30 12/21/17 19:29 12/08/17 00:39 5 MG Menthol (Nice Brown) 1 brown Q2H PRN PO 11/21/17 19:45 12/21/17 19:44 Sodium Chloride ([place] Nasal [place]) 1 sprays PRN PRN NA 11/29/17 23:30 12/29/17 23:29 11/30/17 01:42 1 SPRAYS Fentanyl (Duragesic Patch) 25 mcg Q72H TD 11/30/17 13:30 12/14/17 13:29 12/09/17 14:07 25 MCG Miscellaneous (Fentanyl Patch Remove & Waste) 1 ea Q3D N/A 12/03/17 13:30 01/02/18 13:29 12/09/17 13:30 1 EA Miscellaneous Information (Check Fentanyl Patch Placement) 1 ea QS N/A 11/30/17 16:00 12/30/17 15:59 12/11/17 16:17 1 EA Promethazine HCl 12.5 mg/Sodium Chloride 50.5 ml @ 204 mls/hr Q6H PRN IV 12/01/17 09:45 12/31/17 09:44 12/03/17 20:27 204 MLS/HR Heparin Sodium (Porcine) (Heparin 10 Unit/ ml 5 ml Flush) 5 ml PRN PRN FLUSH 12/01/17 15:15 12/31/17 15:14 12/06/17 03:44 5 ML Miscellaneous Information (Pharmacy Tpn/ Ppn Consult Active) 1 ea UD PRN N/A 12/02/17 11:15 01/01/18 10:44 Future Hold Dextrose 1,000 ml @ 0 mls/hr Q0M PRN IV 12/02/17 12:49 01/01/18 12:48 Metoprolol Tartrate (Lopressor Tab) 25 mg BID PO 12/04/17 21:00 01/03/18 20:59 Future Hold 12/07/17 20:47 25 MG Metoclopramide HCl (Reglan Inj) 5 mg Q6 IV. 12/05/17 13:00 01/04/18 12:59 12/11/17 12:59 5 MG Phenol (Chloraseptic 1.4% [place]) 2 sprays Q2H PRN MT 12/08/17 17:45 01/07/18 17:44 Acetaminophen/ Hydrocodone Bitart ([place] 10/325 Tab) 1 tab TID PRN PO 12/09/17 09:30 12/23/17 09:29 12/11/17 11:40 1 TAB Baclofen (Lioresal Tab) 10 mg TID PO 12/09/17 14:00 01/08/18 13:59 12/11/17 15:53 10 MG Buspirone HCl (Buspar Tab) 10 mg BID PO 12/09/17 21:00 01/08/18 20:59 12/11/17 11:06 10 MG Gabapentin (Neurontin Cap) 300 mg TID PO 12/09/17 14:00 01/08/18 13:59 12/11/17 15:53 300 MG Lamotrigine (Lamictal Tab) 25 mg BID PO 12/09/17 21:00 01/08/18 20:59 12/11/17 11:39 25 MG Lamotrigine (Lamictal Tab) 100 mg BID PO 12/09/17 21:00 01/08/18 20:59 12/11/17 11:09 100 MG Lubiprostone (Amitiza) 24 mcg BID PO 12/09/17 21:00 01/08/18 20:59 12/11/17 11:05 24 MCG Pantoprazole Sodium (Protonix Tab) 40 mg BID PO 12/09/17 21:00 12/13/17 20:59 12/11/17 11:08 40 MG Metoprolol Succinate (Toprol Xl Tab) 25 mg QAM PO 12/10/17 09:00 01/09/18 08:59 12/11/17 11:42 25 MG Dicyclomine HCl (Bentyl Tab) 10 mg BID PO 12/10/17 21:00 01/09/18 20:59 12/11/17 11:08 10 MG Enoxaparin Sodium (Lovenox Inj) 40 mg QAM SQ 12/11/17 10:45 01/10/18 10:44 12/11/17 11:40 40 MG
[2017-12-11 20:00] VITALS: O2SAT 94
[2017-12-11 23:00] VITALS: BP 105/69; PULSE 86; TEMP 36.6; O2SAT 96
[2017-12-12] MEDS: METOCLOPRAMIDE HCL INJ 5 MG/ML 2 ML VIAL IV. SCH ×5 (00:07→23:41)
[2017-12-12] MEDS: CHECK FENTANYL PATCH PLACEMENT SCH ×4 (00:08→23:44)
[2017-12-12] MEDS: HYDROCODONE/ACETAMI 10/325 TAB PO PRN ×3 (05:40→23:44)
[2017-12-12 05:48] LABS: HEMATOCRIT 29.5 % (37-47); MEAN CELL VOLUME 83.3 fL (80-100); MEAN CORPUSCULAR HEMOGLOBIN 25.4 pg (25-34); MEAN CORPUSCULAR HGB CONC 30.5 g/dl (32-36); MEAN PLATELET VOLUME 9.2 fL (7.4-10.4); PLATELET COUNT 452 K/uL (130-400); RED CELL DISTRIBUTION WIDTH CV 15.4 % (11.5-14.5); RED CELL DISTRIBUTION WIDTH SD 47.5 fL (36.4-46.3); WHITE BLOOD COUNT 6.57 K/uL (4.8-10.8)
[2017-12-12 06:24] LABS: CREATININE 0.63 mg/dl (0.60-1.20)
[2017-12-12] MEDS: FORMOTEROL FUMA NEBULIZER SOLN 20 MCG/2 ML VIAL INH SCH ×2 (07:22→19:04)
[2017-12-12 07:23] VITALS: PULSE 86; O2SAT 92
[2017-12-12 07:36] VITALS: BP 101/64; PULSE 86; O2SAT 92
[2017-12-12] MEDS: BACLOFEN 10 MG TAB PO SCH ×3 (08:14→21:38)
[2017-12-12] MEDS: DICYCLOMINE HCL 20 MG TAB PO SCH ×2 (08:14→21:37)
[2017-12-12] MEDS: LUBIPROSTONE 8 MCG CAP PO SCH ×2 (08:16→21:38)
[2017-12-12] MEDS: GABAPENTIN 300 MG CAP PO SCH ×3 (08:18→21:37)
[2017-12-12] MEDS: PANTOprazole SOD 40 MG TAB PO SCH ×2 (08:19→21:37)
[2017-12-12] MEDS: ARIPIprazole TAB 15 MG TAB PO SCH (08:19)
[2017-12-12] MEDS: ENOXAPARIN 40 MG/0.4 ML SYR SQ SCH (08:20)
[2017-12-12] MEDS: METOPROLOL SUCC 50MG EXT REL TAB PO SCH (08:22)
[2017-12-12] MEDS: FENTANYL PATCH REMOVE & WASTE SCH (14:44)
[2017-12-12] MEDS: FENTANYL 25 MCG/HR TDSY TD SCH (14:44)
[2017-12-12 15:06] VITALS: BP 116/77; PULSE 86; TEMP 36.7; O2SAT 92
[2017-12-12 16:00] VITALS: O2SAT 92
--- NOTE | 2017-12-12 18:27 | Progress Note ---
Medicine Progress Note Date & Time of Visit: Dec 12, 2017 at 10:15. Subjective still tolerating regular diet with improvement/resolution of abdominal pain. PT is in good spirits and has been ambulating. Poss dc in am once cleared by surgery Objective Last 8 Hrs Date Time Temp Pulse Resp B/P (MAP) Pulse Ox O2 Delivery O2 Flow Rate FiO2 12/12/17 07:36 86 16 101/64 (76) 92 Room Air 12/12/17 07:23 86 12 92 Room Air Physical Exam: GEN: WNWD, in no acute distress, alert and appropriate HEENT: NC/AT, PERRL, normal sclerae, MMM CARDIO: reg rate, S1/2 heard without m/g/r LUNGS: CTA bilaterally, no crackles, rales or wheezes, good diaphragmatic excursion ABD: soft, nondistended, nontender Midline incision with portia intact, no erythema or drainage. Covered with dressing that is c/d/i EXTREMITY: RP and DP palpable 2+ bilat, no LE swelling or edema, extremities are warm and well-perfused NEURO: CN 2-12 grossly intact MUSC: 5/5 strength throughout, no gross focal deficits SKIN: warm and dry and wound as above. Laboratory Results: 12/12/17 05:21 12/12/17 05:21 Test 11/15/17 03:57 11/15/17 13:03 11/16/17 05:25 11/16/17 23:11 Prothrombin Time 11.2 SECONDS (9.0-12.0) Prothromb Time International Ratio 1.1 (0.9-1.1) Total Protein 8.4 gm/dl (6.4-8.2) Globulin 5.1 gm/dl (2.5-4.0) Albumin/Globulin Ratio 0.6 (0.9-2) Lipase 91 U/L (73-393) Chemistry Specimen Hemolysis Erythrocyte Sedimentation Rate 60 mm/hr (0-21) C-Reactive Protein 1.80 mg/dl (0-0.29) Estimated Average Glucose 103 mg/dl Hemoglobin A1c 5.2 % (4.5-5.6) Vancomycin Level Trough 12.0 mcg/ml (SEE COMMENT) Test 11/17/17 06:06 11/18/17 07:42 11/24/17 06:54 11/26/17 04:36 Toxic Vacuolation 1+ Poikilocytosis PRESENT Red Blood Cell Morphology Unremarkable Lactic Acid Level 1.4 mmol/L (0.4-2.0) Test 11/28/17 05:35 11/29/17 05:43 11/30/17 05:52 12/02/17 04:35 Total Creatine Kinase 198 U/L (26-192) Creatine Kinase MB 1.9 ng/ml (0.5-3.6) Creatine Kinase MB Ratio 1.0 (0-3.0) Troponin I < 0.015 ng/ml (0-0.045) Hypochromasia PRESENT Nucleated RBC Absolute Count (auto) 0.02 K/uL (0-0) Nucleated Red Blood Cells % 0.2 % Immature Granulocyte % (Auto) 1.0 % White Blood Count 11.50 K/uL (4.8-10.8) Red Blood Count 3.59 M/uL (4.2-5.4) Hemoglobin 9.4 g/dL (12.0-16.0) Hematocrit 29.9 % (37-47) Mean Corpuscular Volume 83.3 fL (80-100) Mean Corpuscular Hemoglobin 26.2 pg (25-34) Mean Corpuscular Hemoglobin Concent 31.4 g/dl (32-36) Platelet Count 371 K/uL (130-400) Mean Platelet Volume 9.0 fL (7.4-10.4) Neutrophils (%) (Auto) 68.6 % Lymphocytes (%) (Auto) 17.2 % Monocytes (%) (Auto) 12.7 % Eosinophils (%) (Auto) 0.3 % Basophils (%) (Auto) 0.2 % Neutrophils # (Auto) 7.89 K/uL (1.4-6.5) Lymphocytes # (Auto) 1.98 K/uL (1.2-3.4) Monocytes # (Auto) 1.46 K/uL (0.11-0.59) Eosinophils # (Auto) 0.03 K/uL (0-0.5) Basophils # (Auto) 0.02 K/uL (0-0.2) Immature Granulocyte # (Auto) 0.12 K/uL (0.00-0.02) Test 12/04/17 05:50 12/04/17 06:35 12/06/17 18:07 12/08/17 08:20 Albumin 2.7 gm/dl (3.4-5.0) Gastric Fluid pH 4 Gastric Fluid Occult Blood POS (NEG) Bedside Glucose 125 mg/dl (70-90) Triglycerides Level 86 mg/dl (0-150) Test 12/11/17 06:24 12/12/17 05:21 Phosphorus Level 3.9 mg/dl (2.5-4.9) Total Bilirubin 0.2 mg/dl (0.2-1) Aspartate Amino Transf (AST/SGOT) 13 U/L (15-37) Alanine Aminotransferase (ALT/SGPT) 37 U/L (12-78) Alkaline Phosphatase 72 U/L (45-117) Prealbumin 30.3 mg/dl (20-40) Red Blood Count 3.54 M/uL (4.2-5.4) Mean Corpuscular Volume 83.3 fL (80-100) Mean Corpuscular Hemoglobin 25.4 pg (25-34) Mean Corpuscular Hemoglobin Concent 30.5 g/dl (32-36) RDW Standard Deviation 47.5 fL (36.4-46.3) RDW Coefficient of Variation 15.4 % (11.5-14.5) Mean Platelet Volume 9.2 fL (7.4-10.4) Anion Gap 7.0 mmol/L (3-11) Est Creatinine Clear Calc Drug Dose 86.9 ml/min Estimated GFR () 115.4 Estimated GFR (Non- 99.6 BUN/Creatinine Ratio 18.8 (10-20) Calcium Level 9.0 mg/dl (8.5-10.1) Magnesium Level 2.4 mg/dl (1.8-2.4) Date/Time Source Procedure Growth Status 11/26/17 06:04 Peritoneal Fluid Gram Stain - Final Complete 11/26/17 06:04 Peritoneal Fluid Bacterial Culture - Final NO GROWTH Complete Last 24 Hours Test 12/12/17 05:21 White Blood Count 6.57 K/uL Red Blood Count 3.54 M/uL Hemoglobin 9.0 g/dL Hematocrit 29.5 % Mean Corpuscular Volume 83.3 fL Mean Corpuscular Hemoglobin 25.4 pg Mean Corpuscular Hemoglobin Concent 30.5 g/dl RDW Standard Deviation 47.5 fL RDW Coefficient of Variation 15.4 % Platelet Count 452 K/uL Mean Platelet Volume 9.2 fL Sodium Level 138 mmol/L Potassium Level 4.0 mmol/L Chloride Level 105 mmol/L Carbon Dioxide Level 25 mmol/L Anion Gap 7.0 mmol/L Blood Urea Nitrogen 12 mg/dl Creatinine 0.63 mg/dl Est Creatinine Clear Calc Drug Dose 86.9 ml/min Estimated GFR () 115.4 Estimated GFR (Non- 99.6 BUN/Creatinine Ratio 18.8 Random Glucose 95 mg/dl Calcium Level 9.0 mg/dl Magnesium Level 2.4 mg/dl Assessment & Plan 57 yo F presented with abdominal pain and SBO on 11/15. An NGT was placed and removed a few days later with patient tolerating clears. She got worse and the NGT was replaced with subsequent improvement, removal of the NGT and tolerating a regular diet. By 11/25 she was set to be discharged home but became acutely worse on 11/26, requiring surgery. Her post-operative course was complicated by a severe ileus, and the NGT was replaced and she was put on TPN while undergoing bowel rest. She is now at the point of tolerating clear liquids again and the NGT is planned to be removed this evening if she tolerates two meals of clears. SBFT study revealed contrast reaching her large intestine, although delayed in transit, and she has been having BMs. Pain is always an issue for her as she is chronically dependent on narcotics, but she is doing well so far and plans to transition to PO meds soon. Reports more stomach pain today. 12/10: stomach pain is still present. GI re-engaged with her (they know her well from clinic) and restarted her Bentyl. Otherwise doing well and plans to progress to full meal tonight and wean off TPN. 12/11: tolerating reg diet, off TPN, intermittent abdominal pain but it is improved today. Low energy level but got into chair and ambulated with PT. Discussed discharge plans. 12/12: still tolerating regular diet with improvement/resolution of abdominal pain. PT is in good spirits and has been ambulating. Poss dc in am once cleared by surgery 1. SBO s/p ex lap release of SBO, small bowel decompression, enterolysis, EGD on 11/26. Zosyn stopped after discussion with Dr. Coello. Tolerating reg food , TPN stopped. Pain control with hydrocodone and Bentyl-improved. Small area inside incision that is to close by secondary intention. 2. COPD-stable no wheezing on exam or SOB. Cont inhalers. 3. Chronic pain s/p multiple back and ortho surgeries in the past. As above. 4. Anemia-likely multifactorial related to daily phlebotomy and acute blood loss from surgery. No bleeding or need for transfusion at this time. Cont to monitor periodically. DVT PROPHYLAXIS: Lovenox. Full Code Dispo-in next 1-2 days. Dayana Lindsay DO [facility] Hospitalist. Consultants: Gastro Surgery Current Inpatient Medications: Current Inpatient Medications Medications (Trade) Dose Ordered Sig/Jennifer Route Start Time Stop Time Status Last Admin Dose Admin Ondansetron HCl (Zofran Inj) 4 mg Q6H PRN IV 11/15/17 09:45 12/15/17 09:44 12/05/17 10:29 4 MG Albuterol (Ventolin Hfa Inhaler) 1 puffs Q4 PRN INH 11/15/17 09:45 12/15/17 09:44 Aripiprazole (Abilify Tab) 30 mg QAM PO 11/16/17 09:00 12/16/17 08:59 12/12/17 08:19 30 MG Lorazepam (Ativan Tab) 1 mg BID PRN PO 11/15/17 09:45 12/15/17 09:44 12/11/17 11:40 1 MG Formoterol Fumarate (Perforomist 20MCG/2ML Neb Soln) 20 mcg BID INH 11/15/17 21:00 12/15/17 20:59 12/12/17 07:22 20 MCG Acetaminophen 650 mg/Empty Bag 65 ml @ 260 mls/hr Q6H PRN IV 11/20/17 00:30 12/20/17 00:29 11/30/17 22:41 260 MLS/HR Zolpidem Tartrate (Ambien Tab) 5 mg HS PRN PO 11/21/17 19:30 12/21/17 19:29 12/08/17 00:39 5 MG Menthol (Nice Brown) 1 brown Q2H PRN PO 11/21/17 19:45 12/21/17 19:44 Sodium Chloride ([place] Nasal [place]) 1 sprays PRN PRN NA 11/29/17 23:30 12/29/17 23:29 11/30/17 01:42 1 SPRAYS Fentanyl (Duragesic Patch) 25 mcg Q72H TD 11/30/17 13:30 12/14/17 13:29 12/09/17 14:07 25 MCG Miscellaneous (Fentanyl Patch Remove & Waste) 1 ea Q3D N/A 12/03/17 13:30 01/02/18 13:29 12/09/17 13:30 1 EA Miscellaneous Information (Check Fentanyl Patch Placement) 1 ea QS N/A 11/30/17 16:00 12/30/17 15:59 12/12/17 08:11 1 EA Promethazine HCl 12.5 mg/Sodium Chloride 50.5 ml @ 204 mls/hr Q6H PRN IV 12/01/17 09:45 12/31/17 09:44 12/03/17 20:27 204 MLS/HR Heparin Sodium (Porcine) (Heparin 10 Unit/ ml 5 ml Flush) 5 ml PRN PRN FLUSH 12/01/17 15:15 12/31/17 15:14 12/12/17 05:17 5 ML Miscellaneous Information (Pharmacy Tpn/ Ppn Consult Active) 1 ea UD PRN N/A 12/02/17 11:15 01/01/18 10:44 Future Hold Dextrose 1,000 ml @ 0 mls/hr Q0M PRN IV 12/02/17 12:49 01/01/18 12:48 Metoprolol Tartrate (Lopressor Tab) 25 mg BID PO 12/04/17 21:00 01/03/18 20:59 Future Hold 12/07/17 20:47 25 MG Metoclopramide HCl (Reglan Inj) 5 mg Q6 IV. 12/05/17 13:00 01/04/18 12:59 12/12/17 05:41 5 MG Phenol (Chloraseptic 1.4% [place]) 2 sprays Q2H PRN MT 12/08/17 17:45 01/07/18 17:44 Acetaminophen/ Hydrocodone Bitart ([place] 10/325 Tab) 1 tab TID PRN PO 12/09/17 09:30 12/23/17 09:29 12/12/17 05:40 1 TAB Baclofen (Lioresal Tab) 10 mg TID PO 12/09/17 14:00 01/08/18 13:59 12/12/17 08:14 10 MG Buspirone HCl (Buspar Tab) 10 mg BID PO 12/09/17 21:00 01/08/18 20:59 12/12/17 08:18 10 MG Gabapentin (Neurontin Cap) 300 mg TID PO 12/09/17 14:00 01/08/18 13:59 12/12/17 08:18 300 MG Lamotrigine (Lamictal Tab) 25 mg BID PO 12/09/17 21:00 01/08/18 20:59 12/12/17 08:15 25 MG Lamotrigine (Lamictal Tab) 100 mg BID PO 12/09/17 21:00 01/08/18 20:59 12/12/17 08:15 100 MG Lubiprostone (Amitiza) 24 mcg BID PO 12/09/17 21:00 01/08/18 20:59 12/12/17 08:16 24 MCG Pantoprazole Sodium (Protonix Tab) 40 mg BID PO 12/09/17 21:00 12/13/17 20:59 12/12/17 08:19 40 MG Metoprolol Succinate (Toprol Xl Tab) 25 mg QAM PO 12/10/17 09:00 01/09/18 08:59 12/11/17 11:42 25 MG Dicyclomine HCl (Bentyl Tab) 10 mg BID PO 12/10/17 21:00 01/09/18 20:59 12/12/17 08:14 10 MG Enoxaparin Sodium (Lovenox Inj) 40 mg QAM SQ 12/11/17 10:45 01/10/18 10:44 12/12/17 08:20 40 MG
[2017-12-12] MEDS: ONDANSETRON INJ 2 MG/ML 2 ML VIAL IV PRN (19:49)
[2017-12-12 23:51] VITALS: BP 96/63; PULSE 88; TEMP 36.9; O2SAT 97
[2017-12-13] MEDS: METOCLOPRAMIDE HCL INJ 5 MG/ML 2 ML VIAL IV. SCH (05:48)
[2017-12-13 07:52] VITALS: BP 100/61; PULSE 85; TEMP 36.8
[2017-12-13 07:54] VITALS: PULSE 82; O2SAT 93
[2017-12-13] MEDS: FORMOTEROL FUMA NEBULIZER SOLN 20 MCG/2 ML VIAL INH SCH (07:54)
[2017-12-13] MEDS: CHECK FENTANYL PATCH PLACEMENT SCH (08:13)
[2017-12-13] MEDS: ARIPIprazole TAB 15 MG TAB PO SCH (08:14)
[2017-12-13] MEDS: METOPROLOL SUCC 50MG EXT REL TAB PO SCH (08:15)
[2017-12-13] MEDS: BACLOFEN 10 MG TAB PO SCH (08:18)
[2017-12-13] MEDS: DICYCLOMINE HCL 20 MG TAB PO SCH (08:18)
[2017-12-13] MEDS: PANTOprazole SOD 40 MG TAB PO SCH (08:19)
[2017-12-13] MEDS: LUBIPROSTONE 8 MCG CAP PO SCH (08:20)
[2017-12-13] MEDS: GABAPENTIN 300 MG CAP PO SCH (08:21)
[2017-12-13] MEDS: ENOXAPARIN 40 MG/0.4 ML SYR SQ SCH (08:22)
[2017-12-13] MEDS ORDERED: HYDR-4383 PO ×2 (09:13→09:15)
[2017-12-13] MEDS ORDERED: MAGNESIUM HYDROXIDE SUSP 30 ML UDC PO ONE (09:15)
[2017-12-13] MEDS ORDERED: BNT20 PO (09:27)
--- NOTE | 2017-12-13 09:30 | Discharge Instructions ---
Discharge Instructions Date of Service Dec 13, 2017. Admission Reason for Admission: Small Bowel Obstruction Discharge Discharge Diagnosis / Problem: SBO Discharge Goals Goal(s): Improve function, Increase independence Activity Recommendations Activity Limitations: per Instructions/Follow-up section . Instructions / Follow-Up Instructions / Follow-Up Please continue all medications as instructed. Please follow all post-operative instructions as given by Surgery Team. You will need to followup with Dr. Coello's office sometime this week for a post-operative follow-up. You will need a follow-up with your primary care physician in one week for a hospital follow-up. Someone from our staff will contact you regarding setting these appointments up. In general, no heavy lifting or bending for the next 4 weeks. You may shower. Please keep the wound covered; [facility] will be coming by your home to help you in the short-term. It was a pleasure taking care of you! Call if you have any questions or problems. You can reach a [facility] hospitalist on duty at [facility] 24 hours a day by calling [phone]. Take care of yourself. aDyana Lindsay DO [facility] Hospitalist Current Hospital Diet Patient's current hospital diet: Low Fiber Diet Discharge Diet Recommended Diet: Low Fiber Diet Procedures Procedures Performed: Exploratory Laparotomy Release of Small Bowel Obstruction, Small Bowel Decompression, Enterolysis, esophagogastroduodenoscopy Pending Studies Studies pending at discharge: no Laboratory Results Hemoglobin A1c Test 11/16/17 05:25 Range/Units Estimated Average Glucose 103 mg/dl Hemoglobin A1c 5.2 4.5-5.6 % Lipid Panel Test 12/08/17 08:20 Range/Units Triglycerides Level 86 0-150 mg/dl Medical Emergencies . Who to Call and When: Medical Emergencies: If at any time you feel your situation is an emergency, please call 911 immediately. . Non-Emergent Contact Non-Emergency issues call your: Primary Care Provider, Surgeon . . "Provider Documentation" section prepared by Dayana Lindsay. . VTE Core Measure Inpt VTE Proph given/why not?: Enoxaparin (Lovenox)SQ [place] Drug Monitoring Program Search Results: patient reviewed within database, no issues identified
--- NOTE | 2017-12-13 09:35 | Discharge Summary ---
Discharge Summary Date of Service Dec 13, 2017. Discharge Summary Admission Date: Nov 15, 2017 at 09:43 Discharge Date: Dec 13, 2017 Discharge Disposition: Home with services Principal Diagnosis: SBO s/p ex lap release of SBO, small bowel decompression, enterolysis, EGD on COPD Chronic pain Anemia Procedures: 11/26-Exploratory Laparotomy Release of Small Bowel Obstruction, Small Bowel Decompression, Enterolysis, esophagogastroduodenoscopy NGT tube placement 4 times PICC line placement with TPN Vaccinations: None. Consultations: Gastroenterology-Dr. Manish Philip General Surgery-Dr. Vargas Coello Pending Studies/Follow-Up: see instructions below. Medication Reconciliation New Medications: Dicyclomine HCl (Dicyclomine HCl) 20 Mg Tab 10 MG PO BID for 30 Days, #60 TAB Continued Medications: Albuterol (Ventolin Hfa) 60 Puffs/5400 Mcg Aers 90 MCG INH PRN for Wheezing Aripiprazole (Abilify) 30 Mg Tab 30 MG PO QAM, TAB Baclofen (Lioresal) 10 Mg Tab 10 MG PO TID, TAB Buspirone Hcl (Buspirone Hcl) 10 Mg Tab 10 MG PO BID, #30 TAB Calcium Carbonate-Vitamin D (Oscal 500/200 D-3) 1 Tab Tab 1 TAB PO DAILY Cetirizine (Zyrtec) 10 Mg Tab 10 MG PO QAM, TAB Cyclobenzaprine Hcl (Flexeril) 10 Mg Tab 10 MG PO TID PRN for Muscle Spasms, TAB Famotidine (Pepcid) 40 Mg Tab 40 MG PO DAILY, TAB Fentanyl (Duragesic) 25 Mcg/Hr Dis 25 MCG TD Q72H Formoterol Fumarate (Perforomist) 20 Mcg/2 Ml Nebu 20 MCG INH PRN for Wheezing Furosemide (Lasix) 20 Mg Tab 20 MG PO DAILY PRN for SWELLING, TAB Gabapentin (Neurontin) 300 Mg Cap 300 MG PO TID, CAP Hydrocodone/Acetaminophen ([place] 10/325 Tab) 1 Tab Tab 1 TAB PO TID PRN for severe pain for 7 Days, #21 TAB (This prescription has been renewed) Lamotrigine (Lamictal) 150 Mg Tab 125 MG PO BID, #30 Lorazepam (Lorazepam) 1 Mg Tab 1 MG PO BID PRN for Anxiety for 30 Days, #60 TAB Lubiprostone (Amitiza) 24 Mcg Cap 24 MCG PO BID, CAP Metoclopramide Hcl (Reglan) 5 Mg Tab 5 MG PO ACHS, TAB Metoprolol Succinate (Toprol Xl) 25 Mg Tabcr 25 MG PO QAM, #30 TAB Montelukast Sodium (Singulair) 10 Mg Tab 10 MG PO HS, TAB Multivitamin (Multivitamin) Tab 1 TAB PO QAM, TAB Ocuvite Preservision (Ocuvite Preservision) 1 Tab Tab 1 TAB PO DAILY, TAB Ondansetron Hcl (Zofran) 8 Mg Tab 8 MG PO Q6H PRN for Nausea, TAB Polyethylene Glycol 3350 (Miralax) 1 Pow Pow 17 GM PO DAILY PRN for PRN, #255 GM Potassium Chloride (Micro-K Ext Rel) 10 Meq Capcr 10 MEQ PO DAILY PRN for PRN, CAP ONLY TAKES WHEN TAKING LASIX FOR SWELLING Discontinued Medications: Sulindac (Sulindac) 150 Mg Tab 150 MG PO BID Admission Information HPI (per Admitting provider): HISTORY OF PRESENT ILLNESS: This is a 57-year-old female with a past medical history significant for PSVT status post ablation, COPD, ongoing tobacco abuse, gastroparesis, anxiety, mood disorder, chronic pain on fentanyl patch, chronic Hep C status post treatment, history of MRSA, history of C. diff, past alcohol abuse. multiple admissions for right hip abscesses status post I&D and recently was on Augmentin and doxycycline and today is last day of her antibiotic treatment. She presents with abdominal pain. The patient says since yesterday dinner, she started to notice some nausea and abdominal pain, which got worse, about 9/10 in severity, all over the belly as well as some nausea, but denies any vomiting. Last bowel movement was yesterday morning. Not passing any gas now. History of bowel obstruction in the past. Denies any fevers or chills. No cough. No sore throat. No difficulty swallowing. No chest pain. No shortness of breath. No headaches. Has mild dizziness. No blurred vision. No runny nose. Currently, still has some pain in the belly. Hemodynamically stable. Physical Exam (per Admitting): PHYSICAL EXAMINATION: GENERAL: The patient is of moderate built, not in distress. VITAL SIGNS: Temperature 37.4, pulse 86, respiratory rate 20, blood pressure 153/90 and oxygen 97% room air. HEENT: No pallor and no icterus. Pupils equal, round, and reactive to light. NECK: No JVD. No neck masses. No carotid bruits. CARDIOVASCULAR: S1 and S2 heard. Regular rate and rhythm. No murmur and no gallop. RESPIRATORY SYSTEM: Clear to auscultation bilaterally. No wheezing and no crackles. ABDOMEN: Soft. Bowel sounds very sluggish. Diffuse tender. Some mild guarding. No rigidity. CENTRAL NERVOUS SYSTEM: Cranial nerves II-XII grossly intact. Nonfocal. EXTREMITIES: Right hip surgical site, mild drainage and erythema. Mild lower extremity edema seen. Hospital Course 57 yo F presented with abdominal pain and SBO on 11/15. An NGT was placed and removed a few days later with patient tolerating clears. She got worse and the NGT was replaced with subsequent improvement, removal of the NGT and tolerating a regular diet. By 11/25 she was set to be discharged home but became acutely worse on 11/26, requiring surgery. Her post-operative course was complicated by a severe ileus, and the NGT was replaced and she was put on TPN while undergoing bowel rest. SBFT study revealed contrast reaching her large intestine , although delayed in transit, and she has been having BMs. Pain is always an issue for her as she is chronically dependent on narcotics, but she is doing well so far and transitioned to PO narcotics with ease. 12/10: stomach pain is still present. GI re-engaged with her (they know her well from clinic) and restarted her Bentyl which improved the pain. Otherwise doing well and plans to progress to full meal tonight and wean off TPN. 12/11: tolerating reg diet, off TPN, intermittent abdominal pain but it is improved today. Low energy level but got into chair and ambulated with PT. Discussed discharge plans. 12/12: still tolerating regular diet with improvement/resolution of abdominal pain. PT is in good spirits and has been ambulating. Poss dc in am once cleared by surgery 1. SBO s/p ex lap release of SBO, small bowel decompression, enterolysis, EGD on 11/26. Zosyn stopped after discussion with Dr. Coello. Tolerating reg food , TPN stopped. Pain control with hydrocodone and Bentyl-improved. Small area inside incision that is to close by secondary intention. 2. COPD-stable no wheezing on exam or SOB. Cont inhalers. 3. Chronic pain s/p multiple back and ortho surgeries in the past. As above. 4. Anemia-likely multifactorial related to daily phlebotomy and acute blood loss from surgery. No bleeding or need for transfusion at this time. Cont to monitor periodically. On day of discharge she was ambulating and mentating at baseline and was tolerating a regular diet. She had a well-healing wound with one small area in the mid abdomen which was left open to close by secondary intention. Her pain was well-controlled on her PO narcotic regimen and Bentyl although she did have some residual nausea. Physical exam was otherwise unremarkable. She was sent home in stable condition with instructions to follow up with her surgeon within the next week for post-op wound check and staple removal and with her PCP. Total time spent on discharge = 60 minutes This includes examination of the patient, discharge planning, medication reconciliation, and communication with other providers[place] [address] Discharge Medical Patient Name: Jennifer Guerrero Unit Number: [id number] Date of : 1960 Patient Status: Admitted Inpatient Attending Doctor: Dayana Lindsay DO DI: Medical v4 Discharge Instructions Date of Service Dec 13, 2017. Admission Reason for Admission: Small Bowel Obstruction Discharge Discharge Diagnosis / Problem: SBO Discharge Goals Goal(s): Improve function, Increase independence Activity Recommendations Activity Limitations: per Instructions/Follow-up section . Instructions / Follow-Up Instructions / Follow-Up Please continue all medications as instructed. Please follow all post-operative instructions as given by Surgery Team. You will need to followup with Dr. Coello's office sometime this week for a post-operative follow-up. You will need a follow-up with your primary care physician in one week for a hospital follow-up. Someone from our staff will contact you regarding setting these appointments up. In general, no heavy lifting or bending for the next 4 weeks. You may shower. Please keep the wound covered; [employer] will be coming by your home to help you in the short-term. It was a pleasure taking care of you! Call if you have any questions or problems. You can reach a [facility] hospitalist on duty at [facility] 24 hours a day by calling [phone]. Take care of yourself. Dayana Lindsay DO [facility] Hospitalist Current Hospital Diet Patient's current hospital diet: Low Fiber Diet Discharge Diet Recommended Diet: Low Fiber Diet Procedures Procedures Performed: Exploratory Laparotomy Release of Small Bowel Obstruction, Small Bowel Decompression, Enterolysis, esophagogastroduodenoscopy Pending Studies Studies pending at discharge: no Laboratory Results Hemoglobin A1c Test 11/16/17 05:25 Range/Units Estimated Average Glucose 103 mg/dl Hemoglobin A1c 5.2 4.5-5.6 % Lipid Panel Test 12/08/17 08:20 Range/Units Triglycerides Level 86 0-150 mg/dl Medical Emergencies . Who to Call and When: Medical Emergencies: If at any time you feel your situation is an emergency, please call 911 immediately. . Non-Emergent Contact Non-Emergency issues call your: Primary Care Provider, Surgeon . . "Provider Documentation" section prepared by Dayana Lindsay. . VTE Core Measure Inpt VTE Proph given/why not?: Enoxaparin (Lovenox) [place] Drug Monitoring Program Search Results: patient reviewed within database, no issues identified Additional Copies To Vargas Coello D.O.; Jerome Murillo M.D.
[2017-12-13] MEDS: HYDROCODONE/ACETAMI 10/325 TAB PO PRN (10:32)
[2017-12-13 10:44] VITALS: BP 100/61; PULSE 82; TEMP 36.8; O2SAT 93
[2018-01-04] MEDS ORDERED: LAMO100T16 PO (00:37)
[2018-01-04] MEDS ORDERED: LAMO25TA PO (00:37)
[2018-01-04] MEDS ORDERED: CYCL10TA6 PO (08:01)
[2018-01-04] MEDS ORDERED: AMT24 PO (08:11)
[2018-01-04] MEDS ORDERED: MONT1TAB3 PO (09:36)
[2018-01-04] MEDS ORDERED: FURO-85 PO (09:36)
[2018-01-04] MEDS ORDERED: METO25TA4 PO (09:36)
[2018-01-04] MEDS ORDERED: METO1TAB54 PO (09:36)
[2018-01-04] MEDS ORDERED: CETI10TA84 PO (09:36)
[2018-01-04] MEDS ORDERED: MULT-506 PO (09:36)
[2018-01-04] MEDS ORDERED: ARIP30TA3 PO (09:36)
[2018-01-04] MEDS ORDERED: POTA10CA28 PO (09:37)
[2018-01-04] MEDS ORDERED: POLY335019 PO (09:37)
[2018-01-04] MEDS ORDERED: GABA-113 PO (13:41)
[2018-01-04] MEDS ORDERED: MULT-190 PO (15:05)
[2018-01-04] MEDS ORDERED: CALC200T PO (15:05)
[2018-01-04] MEDS ORDERED: PRFINS NEB (15:05)
[2018-01-04] MEDS ORDERED: PRVHFAIN INH (15:05)
--- NOTE | 2018-01-08 08:37 | EDITING REQUIRED CODING QUERY ---
CODING QUERY To promote full compliance with coding requirements relating to patient care, provider participation is requested in all cases of irrigation service technician uncertainty. Please assist us with the question(s) below: Coding Question(s): Please specify if the SBO was caused by: Bowel Surgery ( ) Adhesions ( x ) Other ( ) Unspecified cause ( ) Physician's Response(s): Thank you Nakita yL Principal Diagnosis: "_that condition established after study, to be chiefly responsible for occasioning the admission of the patient to the hospital for care." Co-Existing Principal Diagnosis: "_when two or more diagnoses equally meet the criteria for principal diagnosis as determined by the circumstances of admission, diagnostic work up, and/or therapy provided, and the Alphabetic Index, Tabular List, or another coding guideline does not provide sequencing direction, any one of the diagnoses may be sequenced first." "When the physician has documented what appears to be a current diagnosis in the body of the record, but has not included the diagnosis in the final diagnostic statement, the physician should be asked whether the diagnosis should be added." ([facility] 2 QTR90. p3-4)
== END 2017-12-13 11:35 | disposition home health service (06) | DRG 336 ==
LOC: C.EDB 03:04 → C.MSW 09:43 → ENRESERV 10:15 → C.2E 11-26 14:49 → ENRESERV 12-03 20:42 → C.MSW 12-03 21:59 → C.MSN 12-04 20:19 → C.MSW 12-04 20:19
PROVIDERS: ADMIT Internal Medicine; ATTEND Hospitalist
PROC: 0DN84ZZ Release Small Intestine, Percutaneous Endoscopic Approach (ICD-10-PCS; principal; 2017-11-26 04:51)
DX: K56.51 Intestinal adhesions [bands], with partial obstruction (principal); K91.89 Other postprocedural complications and disorders of digestive system; L03.115 Cellulitis of right lower limb; D62 Acute posthemorrhagic anemia; F31.9 Bipolar disorder, unspecified; F41.9 Anxiety disorder, unspecified; F10.21 Alcohol dependence, in remission; G89.29 Other chronic pain; M54.9 Dorsalgia, unspecified; J44.9 Chronic obstructive pulmonary disease, unspecified; E87.8 Other disorders of electrolyte and fluid balance, not elsewhere classified; K21.9 Gastro-esophageal reflux disease without esophagitis; F17.200 Nicotine dependence, unspecified, uncomplicated; M81.0 Age-related osteoporosis without current pathological fracture; M19.90 Unspecified osteoarthritis, unspecified site; R00.0 Tachycardia, unspecified; B19.20 Unspecified viral hepatitis C without hepatic coma; Z98.890 Other specified postprocedural states; Z79.899 Other long term (current) drug therapy; Z98.51 Tubal ligation status; Z87.01 Personal history of pneumonia (recurrent); Z83.3 Family history of diabetes mellitus; Z83.79 Family history of other diseases of the digestive system; Z82.49 Family history of ischemic heart disease and other diseases of the circulatory system; Z84.1 Family history of disorders of kidney and ureter; Z80.0 Family history of malignant neoplasm of digestive organs

== ENCOUNTER 2017-12-15 23:47 | Inpatient (IN) | payer OTHER ==
[~2017-12-15] VITALS: Ht 157.5 cm; Wt 60.6 kg
[~2017-12-15 23:47] MED LIST changes: -AMOX1TAB43 PO; +AMT24 PO; +ARIP30TA3 PO; +BNT20 PO; +CALC200T PO; -CARB1CAP2 PO; +CETI10TA84 PO; -CLN150 PO; +CYCL10TA6 PO; -DXY100 PO; -FERR1TAB62 PO; +FURO-85 PO; +GABA-113 PO; +HYDR-4383 PO; -HYDR-5806 PO; +METO1TAB54 PO; +METO25TA3 PO; +MONT1TAB3 PO; +MULT-190 PO; +MULT-506 PO; -ONDA-170 PO; +ONDA8TAB6 PO; +POLY335019 PO; +POTA10CA28 PO; +PRFINS INH; +PRVHFAIN INH
[2017-12-16] MEDS ORDERED: HYDROmorphone INJ 0.5 MG/0.5 ML SYR IV STA (00:03)
[2017-12-16] MEDS ORDERED: SODIUM CHLORIDE 0.9% 500ML 500 ML IV STA (00:03)
[2017-12-16] MEDS ORDERED: ONDANSETRON INJ 2 MG/ML 2 ML VIAL IV STA (00:03)
[2017-12-16 00:27] LABS: BASO % 0.2 %; BASO ABS # 0.02 K/uL (0-0.2); EOS % 0.5 %; EOS ABS # 0.05 K/uL (0-0.5); HEMATOCRIT 34.3 % (37-47); HEMOGLOBIN 10.3 g/dL (12.0-16.0); IG# 0.03 K/uL (0.00-0.02); LYMPH % 18.7 %; LYMPH ABS # 1.86 K/uL (1.2-3.4); MEAN CELL VOLUME 83.1 fL (80-100); MEAN CORPUSCULAR HEMOGLOBIN 24.9 pg (25-34); MEAN PLATELET VOLUME 9.2 fL (7.4-10.4); MONO % 6.1 %; MONO ABS # 0.61 K/uL (0.11-0.59); NEUT % 74.2 %; PLATELET COUNT 531 K/uL (130-400); RED CELL DISTRIBUTION WIDTH SD 46.1 fL (36.4-46.3); WHITE BLOOD COUNT 9.97 K/uL (4.8-10.8)
[2017-12-16] MEDS ORDERED: LAMO25TA PO (00:37)
[2017-12-16] MEDS ORDERED: LAMO100T16 PO (00:37)
[2017-12-16 00:44] LABS: ALBUMIN 3.2 gm/dl (3.4-5.0); ALT/SGPT 20 U/L (12-78); AST/SGOT 8 U/L (15-37); BLOOD UREA NITROGEN 15 mg/dl (7-18); CALCIUM 8.7 mg/dl (8.5-10.1); CARBON DIOXIDE 22 mmol/L (21-32); CREATININE 0.81 mg/dl (0.60-1.20); GLUCOSE 171 mg/dl (70-99); LIPASE 418 U/L (73-393); POTASSIUM 3.5 mmol/L (3.5-5.1); SODIUM 137 mmol/L (136-145)
[2017-12-16 00:47] LABS: ALKALINE PHOSPHATASE 100 U/L (45-117)
--- NOTE | 2017-12-16 01:17 | EMERGENCY ROOM VISIT NOTE ---
History Report prepared by Tonya: Ralph Delgado Under the Supervision of: Dr. Lillie Lucero M.D. First contact with patient: 00:00 Chief Complaint: ABDOMINAL PAIN Stated Complaint: SEVERE ABDOMINAL PAIN History of Present Illness The patient is a 57 year old female who presents to the Emergency Room with complaints of constant severe abdominal pain since 1929 tonight. The patient describes it as a burning, and she states that she was just released from the hospital two days ago after having a bowel obstruction. She states that she was in the hospital for a month. The patient denies any vomiting, though she states that she is nauseous. She states that she had a bowel movement prior to arrival , and there was no blood in it. She states that her stomach feels more firm than before, and she feels more bloated than usual. The patient reports that she ate tonight. The patient's had a temperature above 99 yesterday. Source of History: patient Onset: 1929 Position: abdomen Symptom Intensity: severe Quality: burning Timing: constant Associated Symptoms: + nausea, No vomiting Review of Systems See HPI for pertinent positives & negatives. A total of 10 systems reviewed and were otherwise negative. Past Medical & Surgical Medical Problems: (1) Abscess of right hip (2) Anxiety (3) Bipolar disorder (4) Bipolar Disorder, Unspecified (5) Cervicalgia (6) Chronic alcoholism in remission (7) Chronic back pain (8) Chronic headache (9) Chronic hepatitis C (10) Chronic obstructive lung disease (11) Chronic urinary urge incontinence (12) Closed head injury (13) Depression (14) Gastroesophageal reflux disease (15) Gastroparesis (16) History of aspiration pneumonia (17) History of Clostridium difficile colitis (18) History of drug abuse (19) History of sepsis (20) History of supraventricular tachycardia (21) Incisional abscess (22) Lumbago (23) Osteoarthritis (24) Osteoarthritis of hip (25) Osteoporosis (26) Pancreatitis (27) PTSD (post-traumatic stress disorder) (28) SBO (small bowel obstruction) (29) seroma Right hip (30) Small bowel obstruction (31) SVT (supraventricular tachycardia) (32) Ulnar neuropathy Surgical Problems: (1) Bladder Repair (2) H/O colonoscopy (3) H/O cystoscopy (4) H/O esophagogastroduodenoscopy (5) H/O sinus surgery (6) History of hip surgery (7) Right Tibia/Fibula Repair (8) S/P cervical spinal fusion (9) s/p colonoscopy (10) s/p cystoscopy (11) s/p EGD (12) S/p esophagogastric fundoplasty (13) s/p laparoscopic fundoplication hiatal hernia (14) S/p lumbar decompression/fusion (15) S/P ORIF (open reduction internal fixation) fracture (16) s/p reconstruction hip socket (17) s/p tonsillectomy (18) S/P tonsillectomy and adenoidectomy (19) s/p tubal ligation (20) S/P tubal ligation Family History Diabetes mellitus FATHER GRANDMOTHER FH: colon cancer GRANDMOTHER Gallbladder disease Heart disease Hypertension FATHER MOTHER Kidney disease Kidney stones Social History Smoking Status: Former Smoker Alcohol Use: none Drug Use: other Marital Status: Housing Status: lives with family Occupation Status: disabled Current/Historical Medications Scheduled Aripiprazole (Abilify), 30 MG PO QAM Baclofen (Lioresal), 10 MG PO TID Buspirone Hcl (Buspirone Hcl), 10 MG PO BID Calcium Carbonate-Vitamin D (Oscal 500/200 D-3), 1 TAB PO DAILY Cetirizine (Zyrtec), 10 MG PO QAM Dicyclomine HCl (Dicyclomine HCl), 10 MG PO BID Famotidine (Pepcid), 40 MG PO DAILY Fentanyl (Duragesic), 25 MCG TD Q72H Gabapentin (Neurontin), 300 MG PO TID Lamotrigine (Lamictal), 25 MG PO BID Lamotrigine (Lamictal), 100 MG PO BID Lubiprostone (Amitiza), 24 MCG PO BID Metoclopramide Hcl (Reglan), 5 MG PO ACHS Metoprolol Succinate (Toprol Xl), 25 MG PO QAM Montelukast Sodium (Singulair), 10 MG PO HS Multivitamin (Multivitamin), 1 TAB PO QAM Ocuvite Preservision (Ocuvite Preservision), 1 TAB PO DAILY Scheduled PRN Albuterol (Ventolin Hfa), 90 MCG INH for Wheezing Cyclobenzaprine Hcl (Flexeril), 10 MG PO TID PRN for Muscle Spasms Formoterol Fumarate (Perforomist), 20 MCG INH for Wheezing Furosemide (Lasix), 20 MG PO DAILY PRN for SWELLING Hydrocodone/Acetaminophen ([place] 10/325 Tab), 1 TAB PO TID PRN for severe pain Lorazepam (Lorazepam), 1 MG PO BID PRN for Anxiety Ondansetron Hcl (Zofran), 8 MG PO Q6H PRN for Nausea Polyethylene Glycol 3350 (Miralax), 17 GM PO DAILY PRN for PRN Potassium Chloride (Micro-K Ext Rel), 10 MEQ PO DAILY PRN for PRN Allergies Coded Allergies: Hydroxyzine (Verified Allergy, Severe, THROAT CONSTRICTS/CAN NOT VOID, ) Clarithromycin (Verified Adverse Reaction, Intermediate, vomiting, 12/16/17 ) Lisinopril (Verified Adverse Reaction, Mild, Cough, 12/16/17) Reported by PT. Chlorpromazine (Verified Adverse Reaction, Unknown, LIGHTHEADED DIZZY, ) Physical Exam Vital Signs Date Time Temp Pulse Resp B/P (MAP) Pulse Ox O2 Delivery O2 Flow Rate FiO2 12/16/17 04:23 113 12/16/17 03:44 110 16 120/83 94 Room Air 12/16/17 01:02 99 20 108/74 94 Room Air 12/16/17 00:24 112 12/15/17 23:52 37.0 115 20 114/75 96 Room Air Physical Exam Vital signs reviewed. General: Chronically-appearing female, in no significant distress. HEENT: No scleral icterus, PERRLA, neck supple. Atraumatic. Cardiovascular: Regular rate and rhythm, no extra sounds. Pulmonary: Clear to auscultation bilaterally, normal work of breathing. Abdomen: Some abdominal distension. Mild tympany. Musculoskeletal: Atraumatic, no peripheral edema. Neurologic: Patient awake alert and oriented x 3. Skin: Warm, dry, no rash Medical Decision & Procedures ER Provider Diagnostic Interpretation: X-ray results as stated below per interpretation by me and the radiologist: Chest/Abdomen X-ray: Difficult to interpret due to bowel contrast. Post- surgical hardware in the spine and right hip/pelvis. No air fluid levels to suggest obstruction. No free air Radiology results as stated below per my review and radiologist interpretation: CT ABDOMEN & PELVIS Without Contrast: Prior 12/02/17 Artifact from hardware in dense contrast within the colon. Somewhat limits evaluation. Residual dense contrast within the normal caliber colon. Markedly dilated small bowel loops with air-fluid levels throughout the abdomen and pelvis. Stomach is also distended. Findings similar to the prior. Small caliber distal/terminal ileum visualized near the appendix in the right pelvis. Findings consistent with small bowel obstruction. Transition point right posterior abdomen. Somewhat similar to the prior study. No free air. No free fluid. Extensive hardware in the spine, pelvis, right hip prosthesis. Midline abdominal skin portia. Radiologist: Chao Israel M.D. Laboratory Results Test 12/16/17 00:14 12/16/17 02:46 Magnesium Level 2.0 mg/dl (1.8-2.4) Direct Bilirubin < 0.1 mg/dl (0-0.2) Urine Color YELLOW Urine Appearance CLEAR (CLEAR) Urine pH 6.0 (4.5-7.5) Urine Specific [place] 1.033 (1.000-1.030) Urine Protein 1+ (NEG) Urine Glucose (UA) NEG (NEG) Urine Ketones TRACE (NEG) Urine Occult Blood NEG (NEG) Urine Nitrite NEG (NEG) Urine Bilirubin NEG (NEG) Urine Urobilinogen NEG (NEG) Urine Leukocyte Esterase TRACE (NEG) Urine WBC (Auto) 10-30 /hpf (0-5) Urine RBC (Auto) 0-4 /hpf (0-4) Urine Hyaline Casts (Auto) 0 /lpf (0-5) Urine Epithelial Cells (Auto) >30 /lpf (0-5) Urine Bacteria (Auto) NEG (NEG) Urine Crystals CALCIUM OXALATE (NONE Urine Mucus PRESENT (NONE PRSENT) Laboratory results per my review. Medications Administered Medications (Trade) Dose Ordered Sig/Jennifer Route Start Time Stop Time Status Last Admin Dose Admin Sodium Chloride 500 ml @ 999 mls/hr Q31M STAT IV 12/16/17 00:03 12/16/17 00:33 DC 12/16/17 00:12 999 MLS/HR Hydromorphone HCl (Dilaudid Inj) 0.5 mg NOW STAT IV 12/16/17 00:03 12/16/17 00:05 DC 12/16/17 00:13 0.5 MG Ondansetron HCl (Zofran Inj) 4 mg NOW STAT IV 12/16/17 00:03 12/16/17 00:05 DC 12/16/17 00:13 4 MG Hydromorphone HCl (Dilaudid Inj) 1 mg NOW STAT IM 12/16/17 03:17 12/16/17 03:18 DC 12/16/17 03:38 1 MG Potassium Chloride/Sodium Chloride 1,000 ml @ 500 mls/hr Q2H STAT IV 12/16/17 04:56 12/16/17 06:55 DC 12/16/17 06:07 500 MLS/HR ED Course 0000: Past medical records reviewed. The patient was evaluated in room A10. A complete history and physical examination was performed. 0003: Zofran 4mg IV, Dilaudid 0.5mg IV, Sodium Chloride 500 ml @ 999 mls/hr IV 0317: Dilaudid 1mg IM 0426: I discussed the patient's case with Dr. Campos - Surgery, and he is going to evaluate the patient. 0448: I talked to Dr. Campos, and he recommends that she be evaluated by the hospitalist. 0453: I reviewed the patient's case with Dr. Rafael Srivastava [facility] Hospitalist. He will evaluate the patient for further management. 0456: Upon reevaluation, the patient is resting comfortably. I discussed laboratory and radiographic results with her. She verbalized agreement of the treatment plan. The patient will be evaluated for further management and care. Medical Decision Differential diagnosis: Etiologies such as appendicitis, diverticulitis, PUD, biliary pathology, UTI, pancreatitis, obstruction, mesenteric ischemia, aortic pathology, infections, inflammatory bowel disease, renal colic, as well as others were entertained. This patient was evaluated and appeared to be in no significant distress. IV access was difficult to obtain, patient was given IM Dilaudid. IV access was obtained by me in the right EJ with an 18-gauge Angiocath and laboratory work was drawn. Patient was hydrated with normal saline solution. Patient's laboratory work reveals a mild elevation of the lipase at 418 with a hemoglobin of 10. CT scan abdomen and pelvis was performed and is significant for an SBO. Given the patient's complicated past medical history and recent hospitalization, Dr. Campos of general surgery was contacted. He evaluated the patient emergency department, recommended NG tube for decompression. The hospitalist will evaluate the patient for admission with surgical consultation. Patient is aware of the plan and agrees. Medication Reconcilliation Current Medication List: was personally reviewed by me Blood Pressure Screening Patient's blood pressure: Normal blood pressure Consults Time Called: [phone] Consulting Physician: Dr. Campos Returned Call: [phone] I discussed the patient's case with Dr. Campos - Surgery, and he is going to evaluate the patient. Additional Consults: Time Called: [phone] Consulted Physician: Dr. Rafael Guillen Hospitalist Returned Call: [phone] Additional Comments: I reviewed the patient's case with Dr. Rafael Guillen [facility]. He will evaluate the patient for further management. Impression Primary Impression: SBO (small bowel obstruction) Scribe Attestation The scribe's documentation has been prepared under my direction and personally reviewed by me in its entirety. I confirm that the note above accurately reflects all work, treatment, procedures, and medical decision making performed by me. Departure Information Dispostion Being Evaluated By Hospitalist Jerome Galeas M.D. (PCP) Patient Instructions [facility]
[2017-12-16] MEDS ORDERED: OPTIRAY 320 IV PRN (01:45)
[2017-12-16] MEDS ORDERED: HYDROmorphone INJ 1 MG/ML SYR IM STA (03:17)
[2017-12-16] MEDS ORDERED: NSS + 20MEQ KCL 1000ML 1,000 ML IV STA (04:56)
--- NOTE | 2017-12-16 05:06 | Surgery Consultation ---
Consultation Date of Consultation: Dec 16, 2017. Attending Physician: History of Present Illness The patient is a 57 year old female who presents to the Emergency Room with complaints of constant severe abdominal pain since 1930 tonight. The patient describes it as a burning, and she states that she was just released from the hospital two days ago after having a bowel obstruction. She states that she was in the hospital for a month. The patient denies any vomiting, though she states that she is nauseous. She states that she had a bowel movement prior to arrival , and there was no blood in it. She states that her stomach feels more firm than before, and she feels more bloated than usual. The patient reports that she ate tonight. The patient's had a temperature above 99 yesterday. I saw pt at ER, I reviewed pt's H/P with pt, pt is still have some left side abdominal pain, pt said she passed gas and BM prior to arrival, pt denies diarrhea, Past Medical/Surgical History Medical Problems: (1) Abdominal pain Status: Acute (2) Acute bronchitis Status: Acute (3) Anemia Status: Acute (4) Anxiety Status: Chronic (5) Bipolar disorder Status: Chronic (6) Cellulitis Status: Acute (7) Cervicalgia Status: Chronic (8) Fever Status: Acute (9) Hip pain Status: Acute (10) Hyponatremia Status: Acute (11) Infected finger Status: Acute (12) Influenza-like symptoms Status: Acute (13) Intertrochanteric fracture of right hip Status: Acute (14) Left leg swelling Status: Acute (15) Leg pain, right Status: Acute (16) Leg pain, right Status: Acute (17) Lumbago Status: Chronic (18) Nausea Status: Acute (19) Postoperative wound infection of right hip Status: Acute (20) PTSD (post-traumatic stress disorder) Status: Chronic (21) Right hip pain Status: Acute (22) Sciatic leg pain Status: Acute (23) Subcapital fracture of right hip Status: Acute Family History Diabetes mellitus FATHER GRANDMOTHER FH: colon cancer GRANDMOTHER Gallbladder disease Heart disease Hypertension FATHER MOTHER Kidney disease Kidney stones Social History Smoking Status: Former Smoker Smokeless Tobacco Use: No Alcohol Use: occasionally Drug Use: none, other Marital Status: Housing Status: lives with family Occupation Status: disabled Allergies Coded Allergies: Hydroxyzine (Verified Allergy, Severe, THROAT CONSTRICTS/CAN NOT VOID, ) Clarithromycin (Verified Adverse Reaction, Intermediate, vomiting, 12/16/17 ) Lisinopril (Verified Adverse Reaction, Mild, Cough, 12/16/17) Reported by PT. Chlorpromazine (Verified Adverse Reaction, Unknown, LIGHTHEADED DIZZY, ) Home Medications Scheduled Aripiprazole (Abilify), 30 MG PO QAM Baclofen (Lioresal), 10 MG PO TID Buspirone Hcl (Buspirone Hcl), 10 MG PO BID Calcium Carbonate-Vitamin D (Oscal 500/200 D-3), 1 TAB PO DAILY Cetirizine (Zyrtec), 10 MG PO QAM Dicyclomine HCl (Dicyclomine HCl), 10 MG PO BID Famotidine (Pepcid), 40 MG PO DAILY Fentanyl (Duragesic), 25 MCG TD Q72H Gabapentin (Neurontin), 300 MG PO TID Lamotrigine (Lamictal), 25 MG PO BID Lamotrigine (Lamictal), 100 MG PO BID Lubiprostone (Amitiza), 24 MCG PO BID Metoclopramide Hcl (Reglan), 5 MG PO ACHS Metoprolol Succinate (Toprol Xl), 25 MG PO QAM Montelukast Sodium (Singulair), 10 MG PO HS Multivitamin (Multivitamin), 1 TAB PO QAM Ocuvite Preservision (Ocuvite Preservision), 1 TAB PO DAILY Scheduled PRN Albuterol (Ventolin Hfa), 90 MCG INH for Wheezing Cyclobenzaprine Hcl (Flexeril), 10 MG PO TID PRN for Muscle Spasms Formoterol Fumarate (Perforomist), 20 MCG INH for Wheezing Furosemide (Lasix), 20 MG PO DAILY PRN for SWELLING Hydrocodone/Acetaminophen ([place] 10/325 Tab), 1 TAB PO TID PRN for severe pain Lorazepam (Lorazepam), 1 MG PO BID PRN for Anxiety Ondansetron Hcl (Zofran), 8 MG PO Q6H PRN for Nausea Polyethylene Glycol 3350 (Miralax), 17 GM PO DAILY PRN for PRN Potassium Chloride (Micro-K Ext Rel), 10 MEQ PO DAILY PRN for PRN Current Inpatient Medications Current Inpatient Medications Medications (Trade) Dose Ordered Sig/Jennifer Route Start Time Stop Time Status Last Admin Dose Admin Ioversol (Optiray 320) 100 ml UD PRN IV 12/16/17 01:45 12/20/17 01:44 Review of Systems Constitutional: No fever, No chills, No sweats, No weight loss, No weakness, No fatigue, No problem reported Eyes: No worsening of vision, No eye pain, No redness, No discharge, No diplopia, No problem reported ENT: No hearing loss, No unusual epistaxis, No nasal symptoms, No sore throat, No tinnitus, No dental problems, No trouble swallowing, No problem reported Respiratory: No cough, No sputum, No wheezing, No shortness of breath, No dyspnea on exertion, No dyspnea at rest, No hemoptysis, No problem reported Cardiovascular: No chest pain, No orthopnea, No PND, No edema, No claudication , No palpitations, No problem reported Abdomen: + pain, + nausea, + vomiting, + problem reported (spine and hip surgery) Musculoskeletal: + joint pain Genitourinary - Female: + urinary urgency, + problem reported, No dysuria, No urinary frequency, No urinary incontinence, No urinary retention, No hematuria, No dysmenorrhea, No menorrhagia, No metrorrhagia, No rash, No vaginal bleeding, No vaginal discharge, No vaginal itching, No vulvodynia, No Neurologic: + problem reported (depression) Psychiatric: + depression symptoms Endocrine: No fatigue, No excessive thirst, No excessive urination, No problem reported Hematologic / Lymphatic: No abnormal bleeding/bruising, No clotting problems, No swollen lymph nodes, No night sweats, No problem reported Integumentary: No rash, No itch, No new/changing skin lesions, No color change , No bleeding, No problem reported Physical Exam Date Time Temp Pulse Resp B/P (MAP) Pulse Ox O2 Delivery O2 Flow Rate FiO2 12/16/17 04:23 113 12/16/17 03:44 110 16 120/83 94 Room Air 12/16/17 01:02 99 20 108/74 94 Room Air 12/16/17 00:24 112 12/15/17 23:52 37.0 115 20 114/75 96 Room Air General Appearance: WD/WN, no apparent distress Head: normocephalic Eyes: normal inspection ENT: normal ENT inspection Neck: supple, no JVD Respiratory/Chest: chest non-tender, lungs clear, normal breath sounds, no respiratory distress Cardiovascular: regular rate, rhythm, no edema, no gallop, no JVD, no murmur Abdomen/GI: normal bowel sounds, no pulsatile mass, + tenderness (some tenderness at left side abdoment, no rebound pain, one small open incision on middle line incision, slightly distend) Extremities/Musculoskelatal: normal inspection, no calf tenderness, normal capillary refill Neurologic/Psych: no motor/sensory deficits, alert, normal mood/affect Skin: normal color, warm/dry, no rash Laboratory Results Last 24 Hours Test 12/16/17 00:14 12/16/17 02:46 White Blood Count 9.97 K/uL Red Blood Count 4.13 M/uL Hemoglobin 10.3 g/dL Hematocrit 34.3 % Mean Corpuscular Volume 83.1 fL Mean Corpuscular Hemoglobin 24.9 pg Mean Corpuscular Hemoglobin Concent 30.0 g/dl Platelet Count 531 K/uL Mean Platelet Volume 9.2 fL Neutrophils (%) (Auto) 74.2 % Lymphocytes (%) (Auto) 18.7 % Monocytes (%) (Auto) 6.1 % Eosinophils (%) (Auto) 0.5 % Basophils (%) (Auto) 0.2 % Neutrophils # (Auto) 7.40 K/uL Lymphocytes # (Auto) 1.86 K/uL Monocytes # (Auto) 0.61 K/uL Eosinophils # (Auto) 0.05 K/uL Basophils # (Auto) 0.02 K/uL RDW Standard Deviation 46.1 fL RDW Coefficient of Variation 15.0 % Immature Granulocyte % (Auto) 0.3 % Immature Granulocyte # (Auto) 0.03 K/uL Sodium Level 137 mmol/L Potassium Level 3.5 mmol/L Chloride Level 104 mmol/L Carbon Dioxide Level 22 mmol/L Anion Gap 11.0 mmol/L Blood Urea Nitrogen 15 mg/dl Creatinine 0.81 mg/dl Est Creatinine Clear Calc Drug Dose 65.7 ml/min Estimated GFR () 93.4 Estimated GFR (Non- 80.6 BUN/Creatinine Ratio 18.8 Random Glucose 171 mg/dl Calcium Level 8.7 mg/dl Magnesium Level 2.0 mg/dl Total Bilirubin 0.3 mg/dl Direct Bilirubin < 0.1 mg/dl Aspartate Amino Transf (AST/SGOT) 8 U/L Alanine Aminotransferase (ALT/SGPT) 20 U/L Alkaline Phosphatase 100 U/L Total Protein 8.0 gm/dl Albumin 3.2 gm/dl Lipase 418 U/L Urine Color YELLOW Urine Appearance CLEAR Urine pH 6.0 Urine Specific [place] 1.033 Urine Protein 1+ Urine Glucose (UA) NEG Urine Ketones TRACE Urine Occult Blood NEG Urine Nitrite NEG Urine Bilirubin NEG Urine Urobilinogen NEG Urine Leukocyte Esterase TRACE Urine WBC (Auto) 10-30 /hpf Urine RBC (Auto) 0-4 /hpf Urine Hyaline Casts (Auto) 0 /lpf Urine Epithelial Cells (Auto) >30 /lpf Urine Bacteria (Auto) NEG Urine Crystals CALCIUM OXALATE Urine Mucus PRESENT Assessment & Plan CT Scan- SBO Assessment, pt is a 57 year old female who presents to ER with 8 hours abdominal pain, with nausea, no vomiting, pt had SBO surgery by other surgeon 3 weeks ago. IMP: SBO Recommend: Hospitalist will admit pt to Hospital, NPO, NG tube, IV fluid, control pain, repeat labs in am, I will talk to pt's surgeon in morning, pt agrees with the plan, I answered all questions,
[2017-12-16] MEDS ORDERED: BACLOFEN 10 MG TAB PO ONE (05:46)
[2017-12-16] MEDS ORDERED: HYDROCODONE/ACETAMI 10/325 TAB PO ONE (05:46)
[2017-12-16] MEDS ORDERED: GABAPENTIN 300 MG CAP PO ONE (05:46)
[2017-12-16] MEDS ORDERED: METOPROLOL SUCC 25MG EXT REL TAB PO ONE (05:46)
[2017-12-16 06:00] VITALS: BP 123/79; PULSE 110; TEMP 36.6; O2SAT 98; O2SAT 99; Ht 157.5 cm; Wt 60.6 kg
[2017-12-16] MEDS ORDERED: ACETAMINOPHEN 325 MG TAB PO PRN (06:00)
[2017-12-16] MEDS ORDERED: POLYETHYLENE (MIRALAX) 17 GM PACK PO PRN (06:00)
[2017-12-16] MEDS ORDERED: ONDANSETRON INJ 2 MG/ML 2 ML VIAL IV PRN (06:00)
[2017-12-16] MEDS ORDERED: ACETAMINOPHEN IV 650 MG in EMPTY BAG 0 ML IV PRN (06:00)
[2017-12-16] MEDS ORDERED: PROCHLORPERAZINE INJ 5 MG in SYRINGE 4 ML IV PRN (06:00)
[2017-12-16] MEDS ORDERED: CYCLOBENZAPRINE HCL 10 MG TAB PO PRN (06:00)
[2017-12-16] MEDS ORDERED: METOCLOPRAMIDE HCL INJ 5 MG/ML 2 ML VIAL IV PRN (06:00)
--- NOTE | 2017-12-16 06:58 | HISTORY & PHYSICAL EXAMINATION ---
DATE OF ADMISSION: 12/16/2017 PRIMARY CARE PHYSICIAN: Jerome Murillo MD. CHIEF COMPLAINT: Abdominal pain. HISTORY OF PRESENT ILLNESS: History obtained from patient and records. Medical history significant for chronic pain on Fentanyl patch, PSVT status post ablation, COPD, past tobacco/ETOH abuse, gastroparesis per records, HCV status post treatment, hx MRSA, chronic anemi ( baseline hemoglobin of 9). Recent confinement from 11/15/2017 to 12/13/2017 for small-bowel obstruction sp surgery 11/26/2017. UGIB (coffee ground NGT output) during recent confinement attributed by GI service to NGT insertion trauma. No endoscopies done. PPI recommended. Last night patient had generalized abdominal distention and pain described as burning, some nausea, no emesis, good bowel movement. No fever, no chills. Patient brought to the Emergency Room. CAT scan initial read showed distended stomach, markedly dilated small bowel loops with air fluid levels, small caliber distal terminal ileum visualized near the appendix in the rectal pelvis consistent with small-bowel obstruction, transition point right posterior abdomen. NGT inserted in the ER. MEDICAL HISTORY: As above. SURGERIES: She had hip surgery, tubal ligation, tonsillectomy, fundoplasty, sinus surgery, bowel surgery, hip surgery. HOME MEDICATIONS: Include multivitamin, Zofran, Ocuvite, MiraLax, micro-K, Amitiza, Lamictal, Reglan, Singulair, Toprol XL, Lasix, Pepcid, Duragesic. Formoterol, Neurontin, lorazepam, Abilify, Ventolin, Lioresal, Os-Emile, Flexeril, Zyrtec. ALLERGIES: CHLORPROMAZINE, HYDROXYZINE, LISINOPRIL, CLARITHROMYCIN. FAMILY HISTORY: There is a family history of hypertension, heart disease. PERSONAL AND SOCIAL HISTORY: Past tobacco/alcohol abuse as per records. Disabled. REVIEW OF SYSTEMS: As per HPI. All 10 systems reviewed. All other ROS negative. PHYSICAL EXAMINATION: VITAL SIGNS: Blood pressure noted to be 120/79, pulse rate 110, RR 16, T 36.6, sats 99 on room air. GENERAL: Noted to be slightly uncomfortable, anxious, no respiratory distress. SKIN: Pallor. Warm. HEENT: Pale palpebral conjunctivae. No ptosis. Dry buccal mucosa . NGT in place NECK: Supple. IV access noted to be in the right neck. Nontender LUNGS: Decreased breath sounds. No chest wall tenderness. HEART: Tachycardic. No murmur. ABDOMEN: Some distention. Dressing on the anterior abdomen, nonspecific tenderness to light palpation. EXTREMITIES: No edema. No tenderness. No gross deformities. NEUROLOGIC: Coherent. No gross focality. LABORATORY DATA: Hemoglobin was noted to be 10.3, hematocrit 34.3, white blood cell count 9, platelets 531. Sodium 137, potassium 3.5, chloride 104, CO2 22, BUN 16, creatinine 0.8, glucose 171, lipase 418. CT abdomen and pelvis as per HPI. UA, trace ketones, WBC est positive. Epithelial cells noted ASSESSMENT: 1. Recurrent bowel obstruction history of recent bowel surgery. 2. Chronic pain on narcotics. 3. History of gastroparesis per records. 4. Hypertension. 5. Paroxysmal supraventricular tachycardia, status post ablation. Patient slightly tachycardic. 6. Past tobacco/ETOH abuse as per records. 7. HCV status post treatment. 8. Chronic anemia, hemoglobin better than baseline secondary to hemoconcentration 9. hx MRSA PLAN: GMF Continue NGT decompression judicious narcotic use. Patient refuses to go down on home Fentanyl patch dosing for now. I counseled her about adverse effects of narcotics on GI motility. Surgery consult. Recurrent SBO (ER provider already in touch with Dr. Campos.) DVT prophylaxis, SCDs RE recent GI bleed. Full code. MTDD
--- NOTE | 2017-12-16 07:09 | DIAGNOSTIC IMAGING REPORT ---
ABDOMEN 2VIEW W/PA CHEST RTN CLINICAL HISTORY: recent SBO s/p ex-lap, now increase pain and nausea COMPARISON STUDY: 12/07/2017 FINDINGS: The erect chest reveals no free air. There is no focal pulmonary consolidation. There are postsurgical changes present within the cervical spine. Rectal supine views the abdomen reveal postsurgical changes in the lumbar spine. There is contrast within nondilated colon. There is debris present within the stomach. There are a few mildly prominent small bowel loops. There is a healing fracture the left iliac wing. There are postsurgical changes involving the right iliac bone. There are postsurgical changes of a right hip arthroplasty. IMPRESSION: Nonspecific bowel gas pattern with a few mildly dilated small bowel loops, and a debris-filled stomach. There is contrast within nondilated colon. No evidence of free air. Electronically signed by: Sukhdev Crenshaw M.D. 12/16/2017 7:08 AM Dictated Date/Time: 12/16/2017 7:05 AM
--- NOTE | 2017-12-16 07:29 | DIAGNOSTIC IMAGING REPORT ---
CT OF THE ABDOMEN AND PELVIS WITHOUT CONTRAST CLINICAL HISTORY: Small bowel obstruction. Recent exploratory laparotomy. Severe abdominal pain. COMPARISON STUDY: CT of the abdomen and posterior 17 2017 small bowel follow-through December 07, 2017 and abdominal series December 16, 2017. TECHNIQUE: Axial images of the abdomen and pelvis were obtained without IV contrast. Images were reviewed in the axial, sagittal, and coronal planes. A dose lowering technique was utilized adhering to the principles of ALARA. FINDINGS: Opacities within the lower lungs reflect atelectasis. There is no pneumatosis, free air or portal venous gas. Evaluation of the abdomen and pelvis is moderately compromised due to streak artifact from barium within the colon from previous small bowel follow-through. The stomach is markedly distended and fluid-filled. The majority of the small bowel is also markedly dilated and fluid-filled. Similar findings have been shown on multiple previous exams. The colon is decompressed the appendix is normal. The terminal ileum may be decompressed as well. There is feces within a small bowel loop within the pelvis which may reflect a transition point. Postoperative 5 within the spine are noted with several old fractures. These are unchanged. Skin portia from recent laparotomy are noted. There is no fluid collection to suggest an abscess. IMPRESSION: Markedly dilated, fluid-filled small bowel and stomach consistent with a moderate to high-grade small bowel obstruction with transition point likely within the pelvis. Evaluation moderately compromised due to streak artifact from contrast within the colon from previous small bowel follow-through. Electronically signed by: Chuck Buenrostro M.D. 12/16/2017 7:28 AM Dictated Date/Time: 12/16/2017 7:18 AM
[2017-12-16 07:53] VITALS: BP 104/73; PULSE 102; TEMP 36.6; O2SAT 95
[2017-12-16] MEDS ORDERED: NSS + 20MEQ KCL 1000ML 1,000 ML IV SCH (08:00)
[2017-12-16] MEDS: LUBIPROSTONE 8 MCG CAP PO SCH ×2 (08:30→21:37)
[2017-12-16] MEDS: ARIPIprazole TAB 15 MG TAB PO SCH (08:31)
[2017-12-16] MEDS: DICYCLOMINE HCL 10 MG CAP PO SCH ×2 (08:31→21:39)
[2017-12-16] MEDS: CETIRIZINE HCL 10 MG TAB PO SCH (08:31)
[2017-12-16] MEDS: CEROVITE ADV FORMULA TAB PO SCH (08:32)
[2017-12-16] MEDS: MULTIVITAMIN TAB PO SCH (08:32)
[2017-12-16 08:46] VITALS: O2SAT 95
[2017-12-16] MEDS ORDERED: FENTANYL PATCH REMOVE & WASTE SCH (08:59)
[2017-12-16] MEDS ORDERED: SODIUM CHLORIDE 0.9% IV SCH (09:00)
[2017-12-16] MEDS ORDERED: NURSING VERBAL MED ORDER ONE (09:00)
[2017-12-16] MEDS ORDERED: METOCLOPRAMIDE HCL IV SCH (09:00)
[2017-12-16] MEDS ORDERED: FENTANYL 25 MCG/HR TDSY TD SCH (09:00)
[2017-12-16] MEDS: FAMOTIDINE 20 MG TAB PO SCH (10:00)
[2017-12-16] MEDS: METOCLOPRAMIDE HCL INJ 5 MG/ML 2 ML VIAL IV. SCH ×4 (10:00→23:05)
[2017-12-16] MEDS: MoRPHine SULFATE 2 MG/ML CARP IV PRN ×2 (12:02→20:26)
--- NOTE | 2017-12-16 12:04 | Surgery Progress Note ---
Surgery Progress Note Date of Service Dec 16, 2017. Subjective was doing ok at home, eating small meals, bowels were moving, last night became bloated & painful, NG placed this AM about 1 liter drained Objective Vital Signs: Date Time Temp Pulse Resp B/P (MAP) Pulse Ox O2 Delivery O2 Flow Rate FiO2 12/16/17 08:46 95 Room Air 12/16/17 07:53 36.6 102 20 104/73 (83) 95 Room Air 12/16/17 06:00 36.6 110 16 123/79 98 Room Air 12/16/17 06:00 98 Room Air 12/16/17 06:00 36.6 110 16 123/79 (94) 99 Room Air 12/16/17 05:55 110 16 118/85 94 Room Air 12/16/17 05:19 111 16 111/78 94 Room Air 12/16/17 04:23 113 12/16/17 03:44 110 16 120/83 94 Room Air 12/16/17 01:02 99 20 108/74 94 Room Air 12/16/17 00:24 112 12/15/17 23:52 37.0 115 20 114/75 96 Room Air Abdomen: soft, + distended, + tenderness (minimal ) Incision(s): clean, no drainage, findings (opened area upper incision healing ) Laboratory Results: Results Past 24 Hours Test 12/16/17 00:14 12/16/17 02:46 Range/Units White Blood Count 9.97 4.8-10.8 K/uL Red Blood Count 4.13 4.2-5.4 M/uL Hemoglobin 10.3 12.0-16.0 g/dL Hematocrit 34.3 37-47 % Mean Corpuscular Volume 83.1 80-100 fL Mean Corpuscular Hemoglobin 24.9 25-34 pg Mean Corpuscular Hemoglobin Concent 30.0 32-36 g/dl Platelet Count 531 130-400 K/uL Mean Platelet Volume 9.2 7.4-10.4 fL Neutrophils (%) (Auto) 74.2 % Lymphocytes (%) (Auto) 18.7 % Monocytes (%) (Auto) 6.1 % Eosinophils (%) (Auto) 0.5 % Basophils (%) (Auto) 0.2 % Neutrophils # (Auto) 7.40 1.4-6.5 K/uL Lymphocytes # (Auto) 1.86 1.2-3.4 K/uL Monocytes # (Auto) 0.61 0.11-0.59 K/uL Eosinophils # (Auto) 0.05 0-0.5 K/uL Basophils # (Auto) 0.02 0-0.2 K/uL RDW Standard Deviation 46.1 36.4-46.3 fL RDW Coefficient of Variation 15.0 11.5-14.5 % Immature Granulocyte % (Auto) 0.3 % Immature Granulocyte # (Auto) 0.03 0.00-0.02 K/uL Sodium Level 137 136-145 mmol/L Potassium Level 3.5 3.5-5.1 mmol/L Chloride Level 104 98-107 mmol/L Carbon Dioxide Level 22 21-32 mmol/L Anion Gap 11.0 3-11 mmol/L Blood Urea Nitrogen 15 7-18 mg/dl Creatinine 0.81 0.60-1.20 mg/dl Est Creatinine Clear Calc Drug Dose 65.7 ml/min Estimated GFR () 93.4 Estimated GFR (Non- 80.6 BUN/Creatinine Ratio 18.8 10-20 Random Glucose 171 70-99 mg/dl Calcium Level 8.7 8.5-10.1 mg/dl Magnesium Level 2.0 1.8-2.4 mg/dl Total Bilirubin 0.3 0.2-1 mg/dl Direct Bilirubin < 0.1 0-0.2 mg/dl Aspartate Amino Transf (AST/SGOT) 8 15-37 U/L Alanine Aminotransferase (ALT/SGPT) 20 12-78 U/L Alkaline Phosphatase 100 45-117 U/L Total Protein 8.0 6.4-8.2 gm/dl Albumin 3.2 3.4-5.0 gm/dl Lipase 418 73-393 U/L Urine Color YELLOW Urine Appearance CLEAR CLEAR Urine pH 6.0 4.5-7.5 Urine Specific [place] 1.033 1.000-1.030 Urine Protein 1+ NEG Urine Glucose (UA) NEG NEG Urine Ketones TRACE NEG Urine Occult Blood NEG NEG Urine Nitrite NEG NEG Urine Bilirubin NEG NEG Urine Urobilinogen NEG NEG Urine Leukocyte Esterase TRACE NEG Urine WBC (Auto) 10-30 0-5 /hpf Urine RBC (Auto) 0-4 0-4 /hpf Urine Hyaline Casts (Auto) 0 0-5 /lpf Urine Epithelial Cells (Auto) >30 0-5 /lpf Urine Bacteria (Auto) NEG NEG Urine Crystals CALCIUM OXALATE NONE PRSENT Urine Mucus PRESENT NONE PRSENT Microbiology Results 12/16/17 Urine Culture, Received Pending Assessment & Plan s/p ex lap for SBO, POD [address] Coello. During previous surgery there was a transition point in the distal bowel as point of obstruction but proximal small bowel and stomach appeared chronically dilated. Her prolonged recovery and current CT findings likely are a reflection of this delayed transit. Vagal nerve injury during fundoplication is a possibility. Would continue NG tube, will increase her IVF and restart her on scheduled Reglan. No plans for additional surgery at this time. Would consider reconsulting GI, who saw her briefly last admission for coffee ground drainage but she follows with Dr. Philip. Skin portia were removed.
[2017-12-16] MEDS: D5NSS + 20MEQ KCL 1,000 ML IV SCH ×2 (12:31→20:25)
[2017-12-16] MEDS: GABAPENTIN 300 MG CAP PO SCH ×2 (14:00→21:36)
[2017-12-16] MEDS: BACLOFEN 10 MG TAB PO SCH ×2 (14:00→21:36)
[2017-12-16 15:28] VITALS: BP 105/70; PULSE 85; TEMP 36.7; O2SAT 97
[2017-12-16] MEDS: CHECK FENTANYL PATCH PLACEMENT SCH ×2 (16:25→23:06)
[2017-12-16] MEDS: HYDROCODONE/ACETAMI 10/325 TAB PO PRN (16:26)
--- NOTE | 2017-12-16 18:38 | DIAGNOSTIC IMAGING REPORT ---
ABDOMEN 2 VIEWS HISTORY: Small bowel obstruction. Follow-up. COMPARISON: Chest and abdominal series 12/16/2017. FINDINGS: Nasogastric tube terminates in the mid stomach. Bibasilar linear densities consistent with subsegmental atelectasis. No pneumoperitoneum. No pneumatosis. Residual oral contrast within the colon. Extensive lumbar spinal fusion hardware. Right total hip arthroplasty. Postoperative changes with plates and screws within the right hemipelvis transfixing old, healed fractures. Multiple distended and fluid-filled loops of small bowel. There is also a mildly distended and fluid-filled stomach. Small bowel measures up to 6.6 cm in diameter. IMPRESSION: 1. No significant change in the distended and fluid-filled loops of small bowel and stomach consistent with a small bowel obstruction. 2. Nasogastric tube terminates in the mid stomach. Electronically signed by: Ricardo Anthony M.D. 12/16/2017 6:37 PM Dictated Date/Time: 12/16/2017 6:33 PM
--- NOTE | 2017-12-16 18:53 | Progress Note ---
Medicine Progress Note Date & Time of Visit: Dec 16, 2017 at 10:33. Subjective Pt was seen and examined Lying in bed with no distress Pt said that she is having a lot of abdominal pain she said that Dilaudid work better for the pain Last BM was prior coming to the ER Denies any chest pain, palpitation, dizziness and fever Objective Last 8 Hrs Date Time Temp Pulse Resp B/P (MAP) Pulse Ox O2 Delivery O2 Flow Rate FiO2 12/16/17 15:28 36.7 85 18 105/70 (82) 97 Room Air Physical Exam: General- No acute distress Head- atraumatic Eyes- PERRL, EOMI ENT- NGT in placed Neck- supple, no JVD Lungs- No wheezing Heart- regular rhythm Abdomen- +bowel sounds, mild distended, +tender Extremities- no calf tenderness Neuro- alert, oriented, PERRL, EOMI Skin- warm & dry Laboratory Results: Last 24 Hours Test 12/16/17 00:14 12/16/17 02:46 White Blood Count 9.97 K/uL Red Blood Count 4.13 M/uL Hemoglobin 10.3 g/dL Hematocrit 34.3 % Mean Corpuscular Volume 83.1 fL Mean Corpuscular Hemoglobin 24.9 pg Mean Corpuscular Hemoglobin Concent 30.0 g/dl Platelet Count 531 K/uL Mean Platelet Volume 9.2 fL Neutrophils (%) (Auto) 74.2 % Lymphocytes (%) (Auto) 18.7 % Monocytes (%) (Auto) 6.1 % Eosinophils (%) (Auto) 0.5 % Basophils (%) (Auto) 0.2 % Neutrophils # (Auto) 7.40 K/uL Lymphocytes # (Auto) 1.86 K/uL Monocytes # (Auto) 0.61 K/uL Eosinophils # (Auto) 0.05 K/uL Basophils # (Auto) 0.02 K/uL RDW Standard Deviation 46.1 fL RDW Coefficient of Variation 15.0 % Immature Granulocyte % (Auto) 0.3 % Immature Granulocyte # (Auto) 0.03 K/uL Sodium Level 137 mmol/L Potassium Level 3.5 mmol/L Chloride Level 104 mmol/L Carbon Dioxide Level 22 mmol/L Anion Gap 11.0 mmol/L Blood Urea Nitrogen 15 mg/dl Creatinine 0.81 mg/dl Est Creatinine Clear Calc Drug Dose 65.7 ml/min Estimated GFR () 93.4 Estimated GFR (Non- 80.6 BUN/Creatinine Ratio 18.8 Random Glucose 171 mg/dl Calcium Level 8.7 mg/dl Magnesium Level 2.0 mg/dl Total Bilirubin 0.3 mg/dl Direct Bilirubin < 0.1 mg/dl Aspartate Amino Transf (AST/SGOT) 8 U/L Alanine Aminotransferase (ALT/SGPT) 20 U/L Alkaline Phosphatase 100 U/L Total Protein 8.0 gm/dl Albumin 3.2 gm/dl Lipase 418 U/L Urine Color YELLOW Urine Appearance CLEAR Urine pH 6.0 Urine Specific [place] 1.033 Urine Protein 1+ Urine Glucose (UA) NEG Urine Ketones TRACE Urine Occult Blood NEG Urine Nitrite NEG Urine Bilirubin NEG Urine Urobilinogen NEG Urine Leukocyte Esterase TRACE Urine WBC (Auto) 10-30 /hpf Urine RBC (Auto) 0-4 /hpf Urine Hyaline Casts (Auto) 0 /lpf Urine Epithelial Cells (Auto) >30 /lpf Urine Bacteria (Auto) NEG Urine Crystals CALCIUM OXALATE Urine Mucus PRESENT Date/Time Source Procedure Growth Status 12/16/17 02:46 Urine , Clean Catch Urine Culture Pending Received Assessment & Plan RECURRENT SMALL BOWEL OBSTRUCTION Recently discharge about 2 days ago for SBO S/P Exploratory Laparotomy Release of Small Bowel Obstruction, Small Bowel Decompression, Enterolysis, esophagogastroduodenoscopy on 11/[address] done on admission showed markedly dilated, fluid-filled small bowel and stomach consistent with a moderate to high-grade small bowel obstruction with transition point likely within the pelvis. Continue NGT suction continue morphine for pain Stable removed today from the bowel surgery Continue NPO Continue IVF Surgery on board Hx of PSVT s/p ablation Continue Stable COPD stable Chronic pain on fentanyl patch Continue morphine PRN DVT PROPHYLAXIS SCDs CODE STATUS FULL CODE Current Inpatient Medications: Current Inpatient Medications Medications (Trade) Dose Ordered Sig/Jennifer Route Start Time Stop Time Status Last Admin Dose Admin Ioversol (Optiray 320) 100 ml UD PRN IV 12/16/17 01:45 12/20/17 01:44 Acetaminophen (Tylenol Tab) 650 mg Q4H PRN PO 12/16/17 06:00 01/15/18 05:59 Aripiprazole (Abilify Tab) 30 mg QAM PO 12/16/17 09:00 01/15/18 08:59 12/16/17 08:31 30 MG Baclofen (Lioresal Tab) 10 mg TID PO 12/16/17 14:00 01/15/18 13:59 Cetirizine HCl (zyrTEC TAB) 10 mg QAM PO 12/16/17 09:00 01/15/18 08:59 12/16/17 08:31 10 MG Cyclobenzaprine HCl (Flexeril Tab) 10 mg TID PRN PO 12/16/17 06:00 01/15/18 05:59 Dicyclomine HCl (Bentyl Cap) 10 mg BID PO 12/16/17 09:00 01/15/18 08:59 12/16/17 08:31 10 MG Famotidine (Pepcid Tab) 40 mg DAILY PO 12/16/17 09:00 01/15/18 08:59 12/16/17 10:00 40 MG Gabapentin (Neurontin Cap) 300 mg TID PO 12/16/17 14:00 01/15/18 13:59 Acetaminophen/ Hydrocodone Bitart ([place] 10/325 Tab) 1 tab TID PRN PO 12/16/17 06:00 12/30/17 05:59 12/16/17 16:26 1 TAB Lamotrigine (Lamictal Tab) 25 mg BID PO 12/16/17 09:00 01/15/18 08:59 12/16/17 08:31 25 MG Lamotrigine (Lamictal Tab) 100 mg BID PO 12/16/17 09:00 01/15/18 08:59 12/16/17 08:32 100 MG Lorazepam (Ativan Tab) 1 mg BID PRN PO 12/16/17 06:00 01/15/18 05:59 Metoprolol Succinate (Toprol Xl Tab) 25 mg QAM PO 12/17/17 09:00 01/16/18 08:59 Montelukast Sodium (Singulair Tab) 10 mg HS PO 12/16/17 21:00 01/15/18 20:59 Multivitamins (Multivitamin Tab) 1 tab QAM PO 12/16/17 09:00 01/15/18 08:59 Multivitamins/ Minerals (Multivitamin W/ Minerals Tab) 1 tab DAILY PO 12/16/17 09:00 01/15/18 08:59 Buspirone HCl (Buspar Tab) 10 mg BID PO 12/16/17 09:00 01/15/18 08:59 12/16/17 08:31 10 MG Lubiprostone (Amitiza) 24 mcg BID PO 12/16/17 09:00 01/15/18 08:59 12/16/17 08:30 24 MCG Polyethylene (Miralax Powder Packet) 17 gm DAILY PRN PO 12/16/17 06:00 01/15/18 05:59 Morphine Sulfate (MoRPHine SULFATE INJ) 2 mg Q8H PRN IV 12/16/17 06:00 12/30/17 05:59 12/16/17 12:02 2 MG Prochlorperazine Edisylate 5 mg/ Syringe 5 ml @ 5 mls/min Q6H PRN IV 12/16/17 06:00 01/15/18 05:59 Ondansetron HCl (Zofran Inj) 4 mg Q6H PRN IV 12/16/17 06:00 01/15/18 05:59 Metoclopramide HCl (Reglan Inj) 10 mg Q6H PRN IV 12/16/17 06:00 01/15/18 05:59 Acetaminophen 650 mg/Empty Bag 65 ml @ 260 mls/hr Q6H PRN IV 12/16/17 06:00 01/15/18 05:59 Miscellaneous Information (Check Fentanyl Patch Placement) 1 ea QS N/A 12/16/17 16:00 01/15/18 15:59 12/16/17 16:25 1 EA Metoclopramide HCl (Reglan Inj) 5 mg Q6HWA IV. 12/16/17 09:00 01/15/18 08:59 12/16/17 12:03 5 MG Fentanyl (Duragesic Patch) 25 mcg Q3D@0900 TD 12/18/17 09:00 01/01/18 08:59 Miscellaneous (Fentanyl Patch Remove & Waste) 1 ea Q3D@0859 N/A 12/18/17 08:59 01/17/18 08:58 Potassium Chloride/Dextrose/ Sod Cl 1,000 ml @ 125 mls/hr Q8H IV 12/16/17 12:15 01/15/18 12:14 12/16/17 12:31 125 MLS/HR
[2017-12-16] MEDS: MONTELUKAST SOD 10 MG TAB PO SCH (21:39)
[2017-12-16 23:05] VITALS: BP 109/73; PULSE 82; TEMP 36.6; O2SAT 93
[2017-12-17] MEDS: HYDROCODONE/ACETAMI 10/325 TAB PO PRN ×3 (00:42→16:55)
[2017-12-17] MEDS: D5NSS + 20MEQ KCL 1,000 ML IV SCH (03:50)
[2017-12-17] MEDS: MoRPHine SULFATE 2 MG/ML CARP IV PRN ×3 (04:26→21:20)
[2017-12-17 05:04] LABS: BASO % 0.4 %; BASO ABS # 0.02 K/uL (0-0.2); EOS % 5.5 %; EOS ABS # 0.31 K/uL (0-0.5); HEMOGLOBIN 8.5 g/dL (12.0-16.0); IG# 0.01 K/uL (0.00-0.02); LYMPH ABS # 2.54 K/uL (1.2-3.4); MEAN CELL VOLUME 83.3 fL (80-100); MEAN CORPUSCULAR HEMOGLOBIN 25.3 pg (25-34); MEAN CORPUSCULAR HGB CONC 30.4 g/dl (32-36); MEAN PLATELET VOLUME 8.8 fL (7.4-10.4); MONO % 10.3 %; MONO ABS # 0.58 K/uL (0.11-0.59); NEUT % 38.6 %; NEUT ABS # 2.19 K/uL (1.4-6.5); PLATELET COUNT 361 K/uL (130-400); RED CELL DISTRIBUTION WIDTH CV 15.5 % (11.5-14.5); RED CELL DISTRIBUTION WIDTH SD 47.4 fL (36.4-46.3); WHITE BLOOD COUNT 5.65 K/uL (4.8-10.8)
[2017-12-17 05:31] LABS: ALBUMIN 2.4 gm/dl (3.4-5.0); CALCIUM 7.9 mg/dl (8.5-10.1); CREATININE 0.48 mg/dl (0.60-1.20); POTASSIUM 3.7 mmol/L (3.5-5.1); TOTAL PROTEIN 6.3 gm/dl (6.4-8.2)
--- NOTE | 2017-12-17 05:31 | Progress Note ---
Internal Med Progress Note Date of Service: Dec 17, 2017. Provider Documentation: Made aware by RN of patient complaining of change in in the NGT drainage character . Change from green to brown liquid with small amounts of coffee-ground particles. Usual abdominal pain. No hematochezia/melena complaints. Gastric occult blood test positive AP Recurrent UGIB IV PPI for now Trend H&H May need GI consult if with progression of UGIB or further hemoglobin drop. Will relay to AM provider. Vital Signs: Date Time Temp Pulse Resp B/P (MAP) Pulse Ox O2 Delivery O2 Flow Rate FiO2 12/16/17 23:05 36.6 82 16 109/73 (85) 93 Room Air 12/16/17 21:45 Room Air 12/16/17 16:10 Room Air 12/16/17 15:28 36.7 85 18 105/70 (82) 97 Room Air 12/16/17 08:46 95 Room Air 12/16/17 08:00 Room Air 12/16/17 07:53 36.6 102 20 104/73 (83) 95 Room Air Lab Results: Results Past 24 Hours Test 12/17/17 00:00 12/17/17 04:46 Range/Units Gastric Fluid pH 2 Gastric Fluid Occult Blood POS NEG White Blood Count 5.65 4.8-10.8 K/uL Red Blood Count 3.36 4.2-5.4 M/uL Hemoglobin 8.5 12.0-16.0 g/dL Hematocrit 28.0 37-47 % Mean Corpuscular Volume 83.3 80-100 fL Mean Corpuscular Hemoglobin 25.3 25-34 pg Mean Corpuscular Hemoglobin Concent 30.4 32-36 g/dl Platelet Count 361 130-400 K/uL Mean Platelet Volume 8.8 7.4-10.4 fL Neutrophils (%) (Auto) 38.6 % Lymphocytes (%) (Auto) 45.0 % Monocytes (%) (Auto) 10.3 % Eosinophils (%) (Auto) 5.5 % Basophils (%) (Auto) 0.4 % Neutrophils # (Auto) 2.19 1.4-6.5 K/uL Lymphocytes # (Auto) 2.54 1.2-3.4 K/uL Monocytes # (Auto) 0.58 0.11-0.59 K/uL Eosinophils # (Auto) 0.31 0-0.5 K/uL Basophils # (Auto) 0.02 0-0.2 K/uL RDW Standard Deviation 47.4 36.4-46.3 fL RDW Coefficient of Variation 15.5 11.5-14.5 % Immature Granulocyte % (Auto) 0.2 % Immature Granulocyte # (Auto) 0.01 0.00-0.02 K/uL Polychromasia 1+ Sodium Level 140 136-145 mmol/L Potassium Level 3.7 3.5-5.1 mmol/L Chloride Level 111 98-107 mmol/L Carbon Dioxide Level 24 21-32 mmol/L Anion Gap 5.0 3-11 mmol/L Blood Urea Nitrogen 10 7-18 mg/dl Creatinine 0.48 0.60-1.20 mg/dl Est Creatinine Clear Calc Drug Dose 110.9 ml/min Estimated GFR () 126.2 Estimated GFR (Non- 108.9 BUN/Creatinine Ratio 20.1 10-20 Random Glucose 110 70-99 mg/dl Calcium Level 7.9 8.5-10.1 mg/dl Total Bilirubin 0.2 0.2-1 mg/dl Aspartate Amino Transf (AST/SGOT) 7 15-37 U/L Alanine Aminotransferase (ALT/SGPT) 14 12-78 U/L Alkaline Phosphatase 70 45-117 U/L Total Protein 6.3 6.4-8.2 gm/dl Albumin 2.4 3.4-5.0 gm/dl Globulin 3.9 2.5-4.0 gm/dl Albumin/Globulin Ratio 0.6 0.9-2 Lipase 210 73-393 U/L
[2017-12-17] MEDS ORDERED: PANTOprazole INJ 80 MG in DEXTROSE 5% 100ML 100 ML IV ONE (06:00)
[2017-12-17] MEDS: METOCLOPRAMIDE HCL INJ 5 MG/ML 2 ML VIAL IV. SCH ×4 (06:07→23:43)
[2017-12-17] MEDS: D5W AND LACTATED RINGERS 1,000 ML IV SCH ×2 (06:08→22:42)
[2017-12-17 07:32] VITALS: BP 127/87; PULSE 86; TEMP 36.8; O2SAT 92
[2017-12-17] MEDS: CHECK FENTANYL PATCH PLACEMENT SCH ×3 (08:20→23:45)
[2017-12-17] MEDS: BACLOFEN 10 MG TAB PO SCH ×3 (08:23→21:18)
[2017-12-17] MEDS: DICYCLOMINE HCL 10 MG CAP PO SCH ×3 (08:23→21:00)
[2017-12-17] MEDS: CETIRIZINE HCL 10 MG TAB PO SCH (08:23)
[2017-12-17] MEDS: LUBIPROSTONE 8 MCG CAP PO SCH ×2 (08:23→21:21)
[2017-12-17] MEDS: METOPROLOL SUCC 25MG EXT REL TAB PO SCH (08:24)
[2017-12-17] MEDS: MULTIVITAMIN TAB PO SCH (08:25)
[2017-12-17] MEDS: GABAPENTIN 300 MG CAP PO SCH ×4 (08:25→21:00)
[2017-12-17] MEDS: CEROVITE ADV FORMULA TAB PO SCH (08:25)
--- NOTE | 2017-12-17 11:44 | Gastrointestinal Consultation ---
Gastrointestinal Consultation Date of Consultation: Dec 17, 2017 Attending Physician: Gage Miranda Consulting Physician: Nidhi Le Reason for Consultation: Occult bleeding from NGT History of Present Illness Patient is a 57 year old female w PMHx of PVT s/p ablation, COPD, hx of tobacco/ ETOH abuses, chronic back pain on Fentanyl patch, gastroparesis, MRSA, HCV s/p treatment, chronic anemia who presented to ED w c/o abd pain. She was just admitted here from 11/15 to 12/13 for SBO s/p ex lap w small bowel decompression , obstruction release, enterolysis on 11/26/17. She went home and had persistent abd pain, abd distension, nausea. She did continue to have bowel movements last night. CT abd/pelvis: Markedly dilated, fluid-filled small bowel and stomach consistent with a moderate to high-grade small bowel obstruction with transition point likely within the pelvis. Evaluation moderately compromised due to streak artifact from contrast within the colon from previous small bowel follow-through. Surgery following her, no plans for surgical intervention at this time. NGT was placed yesterday, total output 1.4L yesterday, 400mL this AM. It was noted yesterday that she had bloody appearing material from NGT, and it tested possible for gastric occult blood. Though this AM, tubing has clear fluid in. Pt reports last night had BM and is passing flatus. She denies any dark tarry stools. BS present today. Hgb 8.5 (baseline close to 9). Last EGD done for dysphagia, with dilation on 02/2017 - large amt of food in stomach seen at that time. Past Medical/Surgical History Medical Problems: (1) Abdominal pain Status: Acute (2) Acute bronchitis Status: Acute (3) Anemia Status: Acute (4) Anxiety Status: Chronic (5) Bipolar disorder Status: Chronic (6) Cellulitis Status: Acute (7) Cervicalgia Status: Chronic (8) Fever Status: Acute (9) Hip pain Status: Acute (10) Hyponatremia Status: Acute (11) Infected finger Status: Acute (12) Influenza-like symptoms Status: Acute (13) Intertrochanteric fracture of right hip Status: Acute (14) Left leg swelling Status: Acute (15) Leg pain, right Status: Acute (16) Leg pain, right Status: Acute (17) Lumbago Status: Chronic (18) Nausea Status: Acute (19) Postoperative wound infection of right hip Status: Acute (20) PTSD (post-traumatic stress disorder) Status: Chronic (21) Right hip pain Status: Acute (22) Sciatic leg pain Status: Acute (23) Subcapital fracture of right hip Status: Acute Past Medical History: See above. Past Surgical History: Hip surgery, tubal ligation, tonsillectomy, fundoplasty, sinus surgery, ex lap for SBO recently. Family History Diabetes mellitus FATHER GRANDMOTHER FH: colon cancer GRANDMOTHER Gallbladder disease Heart disease Hypertension FATHER MOTHER Kidney disease Kidney stones Social History Smoking Status: Current Every Day Smoker Alcohol Use: none Drug Use: none, other Marital Status: Housing Status: lives with family Occupation Status: disabled Allergies Coded Allergies: Hydroxyzine (Verified Allergy, Severe, THROAT CONSTRICTS/CAN NOT VOID, ) Clarithromycin (Verified Adverse Reaction, Intermediate, vomiting, 12/16/17 ) Lisinopril (Verified Adverse Reaction, Mild, Cough, 12/16/17) Reported by PT. Chlorpromazine (Verified Adverse Reaction, Unknown, LIGHTHEADED DIZZY, ) Current Medications Home Meds and Scripts Medications Dose Route/Sig Max Daily Dose Days Date Category Dose Instructions Lamictal (Lamotrigine) 100 Mg Tab 100 Mg PO BID 12/16/17 Reported Lamictal (Lamotrigine) 25 Mg Tab 25 Mg PO BID 12/16/17 Reported Dicyclomine HCl 20 Mg Tab 10 Mg PO BID 30 12/13/17 Rx [place] 10/325 Tab (Acetaminophen/Hydrocodone Bitart) 1 Tab Tab 1 Tab PO TID PRN 7 12/13/17 Rx Buspirone Hcl 10 Mg Tab 10 Mg PO BID 11/15/17 Rx Neurontin (Gabapentin) 300 Mg Cap 300 Mg PO TID 10/12/17 Reported Amitiza (Lubiprostone) 24 Mcg Cap 24 Mcg PO BID 09/28/17 Reported Flexeril (Cyclobenzaprine Hcl) 10 Mg Tab 10 Mg PO TID PRN 07/27/17 Reported Perforomist (Formoterol Fumarate) 20 Mcg/2 Ml Nebu 20 Mcg INH PRN 04/21/17 Reported Ocuvite Preservision (Multivitamins/Minerals) 1 Tab Tab 1 Tab PO DAILY 04/21/17 Reported Pepcid (Famotidine) 40 Mg Tab 40 Mg PO DAILY 04/21/17 Reported Oscal 500/200 D-3 (Calcium Carbonate-Vitamin D) 1 Tab Tab 1 Tab PO DAILY 04/21/17 Reported Lorazepam 1 Mg Tab 1 Mg PO BID PRN 30 04/21/17 Reported Ventolin Hfa (Albuterol) 60 Puffs/5400 Mcg Aers 90 Mcg INH PRN 04/21/17 Reported Micro-K Ext Rel (Potassium Chloride) 10 Meq Capcr 10 Meq PO DAILY PRN 03/27/17 Reported ONLY TAKES WHEN TAKING LASIX FOR SWELLING Miralax (Polyethylene Glycol 3350) 1 Pow 17 Gm PO DAILY PRN 03/27/17 Reported Lioresal (Baclofen) 10 Mg Tab 10 Mg PO TID 03/27/17 Reported Abilify (Aripiprazole) 30 Mg Tab 30 Mg PO QAM 02/10/17 Reported Multivitamin (Multivitamins) Tab 1 Tab PO QAM 02/10/17 Reported Zyrtec (Cetirizine HCl) 10 Mg Tab 10 Mg PO QAM 02/10/17 Reported Zofran (Ondansetron HCl) 8 Mg Tab 8 Mg PO Q6H PRN 02/10/17 Reported Singulair (Montelukast Sodium) 10 Mg Tab 10 Mg PO HS 02/10/17 Reported Toprol Xl (Metoprolol Succinate) 25 Mg Tabcr 25 Mg PO QAM 02/10/17 Reported Lasix (Furosemide) 20 Mg Tab 20 Mg PO DAILY PRN 02/10/17 Reported Reglan (Metoclopramide Hcl) 5 Mg Tab 5 Mg PO ACHS 02/10/17 Reported Duragesic (Fentanyl) 25 Mcg/Hr Dis 25 Mcg TD Q72H 02/10/17 Reported Review of Systems Constitutional: No fever, No chills Respiratory: No cough, No shortness of breath Cardiac: No chest pain Abdomen: + pain, No nausea, No vomiting, No GI bleeding Physical Exam Date Time Temp Pulse Resp B/P (MAP) Pulse Ox O2 Delivery O2 Flow Rate FiO2 12/17/17 07:32 36.8 86 16 127/87 (100) 92 Room Air 12/16/17 23:05 36.6 82 16 109/73 (85) 93 Room Air 12/16/17 21:45 Room Air 1/31/18 16:10 Room Air 12/16/17 15:28 36.7 85 18 105/70 (82) 97 Room Air General Appearance: WD/WN, no apparent distress Eyes: normal inspection, PERRL, EOMI ENT: + pertinent finding (NGT w clear fluid in tubing ) Neck: supple, no JVD, trachea midline Respiratory/Chest: normal breath sounds, no respiratory distress, no accessory muscle use Cardiovascular: regular rate, rhythm, no gallop, no murmur Abdomen: normal bowel sounds, soft, + tenderness (generalized ) Extremities: normal inspection, no pedal edema, no calf tenderness Neurologic/Psych: alert, normal mood/affect, oriented x 3 Skin: normal color, no jaundice, no rash Laboratory Results Last 24 Hours Test 12/17/17 00:00 12/17/17 04:46 Gastric Fluid pH 2 Gastric Fluid Occult Blood POS White Blood Count 5.65 K/uL Red Blood Count 3.36 M/uL Hemoglobin 8.5 g/dL Hematocrit 28.0 % Mean Corpuscular Volume 83.3 fL Mean Corpuscular Hemoglobin 25.3 pg Mean Corpuscular Hemoglobin Concent 30.4 g/dl Platelet Count 361 K/uL Mean Platelet Volume 8.8 fL Neutrophils (%) (Auto) 38.6 % Lymphocytes (%) (Auto) 45.0 % Monocytes (%) (Auto) 10.3 % Eosinophils (%) (Auto) 5.5 % Basophils (%) (Auto) 0.4 % Neutrophils # (Auto) 2.19 K/uL Lymphocytes # (Auto) 2.54 K/uL Monocytes # (Auto) 0.58 K/uL Eosinophils # (Auto) 0.31 K/uL Basophils # (Auto) 0.02 K/uL RDW Standard Deviation 47.4 fL RDW Coefficient of Variation 15.5 % Immature Granulocyte % (Auto) 0.2 % Immature Granulocyte # (Auto) 0.01 K/uL Polychromasia 1+ Sodium Level 140 mmol/L Potassium Level 3.7 mmol/L Chloride Level 111 mmol/L Carbon Dioxide Level 24 mmol/L Anion Gap 5.0 mmol/L Blood Urea Nitrogen 10 mg/dl Creatinine 0.48 mg/dl Est Creatinine Clear Calc Drug Dose 110.9 ml/min Estimated GFR () 126.2 Estimated GFR (Non- 108.9 BUN/Creatinine Ratio 20.1 Random Glucose 110 mg/dl Calcium Level 7.9 mg/dl Total Bilirubin 0.2 mg/dl Aspartate Amino Transf (AST/SGOT) 7 U/L Alanine Aminotransferase (ALT/SGPT) 14 U/L Alkaline Phosphatase 70 U/L Total Protein 6.3 gm/dl Albumin 2.4 gm/dl Globulin 3.9 gm/dl Albumin/Globulin Ratio 0.6 Lipase 210 U/L Impression Patient is a 57 year old female admitted for abd distension, pain, nausea, CT scan consistent w SBO w possible transition point in pelvis. Hx of SBO s/p ex lap w release/decompression of obstruction on 11/26/17. She is passing BMs and flatus, BS present. GI consulted as there were some bloody appearing material from NGT yesterday, gastric occult blood test positive. Tubing w clear fluid now , Hgb at baseline, she doesn't have any hematemesis, melena. Last EGD w dilation done for dysphagia on 02/2017. Plan - No indication to repeat EGD at this time. Suspect NGT trauma causing some bleeding. - NPO, defer diet advancement and timing to DC NGT to Surgery team. - Will monitor peripherally, pls call if any further s/s of GI bleed. I have seen and examined the patient with STEPHEN Monsalve whose note reflects our findings and plan.
[2017-12-17 12:14] LABS: HEMOGLOBIN 9.1 g/dL (12.0-16.0)
[2017-12-17] MEDS: ARIPIprazole TAB 15 MG TAB PO SCH (12:51)
[2017-12-17] MEDS: FAMOTIDINE 20 MG TAB PO SCH (12:51)
--- NOTE | 2017-12-17 13:07 | Surgery Progress Note ---
Surgery Progress Note Date of Service Dec 17, 2017. Subjective pt feeling much better now. denies abdominal pain. no nausea. slightly "hungry". Objective Vital Signs: Date Time Temp Pulse Resp B/P (MAP) Pulse Ox O2 Delivery O2 Flow Rate FiO2 12/17/17 08:20 Room Air 12/17/17 07:32 36.8 86 16 127/87 (100) 92 Room Air 12/16/17 23:05 36.6 82 16 109/73 (85) 93 Room Air 12/16/17 21:45 Room Air 12/16/17 16:10 Room Air 12/16/17 15:28 36.7 85 18 105/70 (82) 97 Room Air General Appearance: no apparent distress Respiratory/Chest: no respiratory distress, no accessory muscle use Abdomen: non tender, non distended, soft Laboratory Results: Results Past 24 Hours Test 12/17/17 00:00 12/17/17 04:46 12/17/17 11:59 Range/Units Gastric Fluid pH 2 Gastric Fluid Occult Blood POS NEG White Blood Count 5.65 4.8-10.8 K/uL Red Blood Count 3.36 4.2-5.4 M/uL Hemoglobin 8.5 9.1 12.0-16.0 g/dL Hematocrit 28.0 30.0 37-47 % Mean Corpuscular Volume 83.3 80-100 fL Mean Corpuscular Hemoglobin 25.3 25-34 pg Mean Corpuscular Hemoglobin Concent 30.4 32-36 g/dl Platelet Count 361 130-400 K/uL Mean Platelet Volume 8.8 7.4-10.4 fL Neutrophils (%) (Auto) 38.6 % Lymphocytes (%) (Auto) 45.0 % Monocytes (%) (Auto) 10.3 % Eosinophils (%) (Auto) 5.5 % Basophils (%) (Auto) 0.4 % Neutrophils # (Auto) 2.19 1.4-6.5 K/uL Lymphocytes # (Auto) 2.54 1.2-3.4 K/uL Monocytes # (Auto) 0.58 0.11-0.59 K/uL Eosinophils # (Auto) 0.31 0-0.5 K/uL Basophils # (Auto) 0.02 0-0.2 K/uL RDW Standard Deviation 47.4 36.4-46.3 fL RDW Coefficient of Variation 15.5 11.5-14.5 % Immature Granulocyte % (Auto) 0.2 % Immature Granulocyte # (Auto) 0.01 0.00-0.02 K/uL Polychromasia 1+ Sodium Level 140 136-145 mmol/L Potassium Level 3.7 3.5-5.1 mmol/L Chloride Level 111 98-107 mmol/L Carbon Dioxide Level 24 21-32 mmol/L Anion Gap 5.0 3-11 mmol/L Blood Urea Nitrogen 10 7-18 mg/dl Creatinine 0.48 0.60-1.20 mg/dl Est Creatinine Clear Calc Drug Dose 110.9 ml/min Estimated GFR () 126.2 Estimated GFR (Non- 108.9 BUN/Creatinine Ratio 20.1 10-20 Random Glucose 110 70-99 mg/dl Calcium Level 7.9 8.5-10.1 mg/dl Total Bilirubin 0.2 0.2-1 mg/dl Aspartate Amino Transf (AST/SGOT) 7 15-37 U/L Alanine Aminotransferase (ALT/SGPT) 14 12-78 U/L Alkaline Phosphatase 70 45-117 U/L Total Protein 6.3 6.4-8.2 gm/dl Albumin 2.4 3.4-5.0 gm/dl Globulin 3.9 2.5-4.0 gm/dl Albumin/Globulin Ratio 0.6 0.9-2 Lipase 210 73-393 U/L Assessment & Plan difficult scenario. during her last surgery she clearly had an acute obstruction which was released. however her proximal small bowel/stomach appeared to have some chronic dilation. I doubt she needs another operation and even if so, now is not the timing as the inflammation/adhesions from her most recent surgery would be impossible to deal with continue conservative tx keep ngt for now will recheck KUB tomorrow and possibly repeat sbft pt had been having bm's at home and eating. contrast in colon on ct will follow along
[2017-12-17 15:00] VITALS: BP 102/67; PULSE 87; TEMP 36.8; O2SAT 96
--- NOTE | 2017-12-17 17:10 | Progress Note ---
Medicine Progress Note Date & Time of Visit: Dec 17, 2017 at 11:59. Subjective Pt was seen and examined Lying in bed with no distress] Pt had an episode of emesis early after she tries to ingest her oral med at once Pt said that she felt the tablets were caught in her throat She said that now she felt better Pt said that her abdominal is less tender and less distended She said that she had a BM yesterday and today Denies any chest pain, palpitation, dizziness and SOB Objective Last 8 Hrs Date Time Temp Pulse Resp B/P (MAP) Pulse Ox O2 Delivery O2 Flow Rate FiO2 12/17/17 15:25 Room Air 12/17/17 15:00 36.8 87 16 102/67 (79) 96 Room Air Physical Exam: General- No acute distress Head- atraumatic Eyes- PERRL, EOMI ENT- NGT in placed Neck- supple, no JVD Lungs- No wheezing Heart- regular rhythm Abdomen- +bowel sounds, mild distended, +mild tenderness Extremities- no calf tenderness Neuro- alert, oriented, PERRL, EOMI Skin- warm & dry Laboratory Results: Last 24 Hours Test 12/17/17 00:00 12/17/17 04:46 12/17/17 11:59 Gastric Fluid pH 2 Gastric Fluid Occult Blood POS White Blood Count 5.65 K/uL Red Blood Count 3.36 M/uL Hemoglobin 8.5 g/dL 9.1 g/dL Hematocrit 28.0 % 30.0 % Mean Corpuscular Volume 83.3 fL Mean Corpuscular Hemoglobin 25.3 pg Mean Corpuscular Hemoglobin Concent 30.4 g/dl Platelet Count 361 K/uL Mean Platelet Volume 8.8 fL Neutrophils (%) (Auto) 38.6 % Lymphocytes (%) (Auto) 45.0 % Monocytes (%) (Auto) 10.3 % Eosinophils (%) (Auto) 5.5 % Basophils (%) (Auto) 0.4 % Neutrophils # (Auto) 2.19 K/uL Lymphocytes # (Auto) 2.54 K/uL Monocytes # (Auto) 0.58 K/uL Eosinophils # (Auto) 0.31 K/uL Basophils # (Auto) 0.02 K/uL RDW Standard Deviation 47.4 fL RDW Coefficient of Variation 15.5 % Immature Granulocyte % (Auto) 0.2 % Immature Granulocyte # (Auto) 0.01 K/uL Polychromasia 1+ Sodium Level 140 mmol/L Potassium Level 3.7 mmol/L Chloride Level 111 mmol/L Carbon Dioxide Level 24 mmol/L Anion Gap 5.0 mmol/L Blood Urea Nitrogen 10 mg/dl Creatinine 0.48 mg/dl Est Creatinine Clear Calc Drug Dose 110.9 ml/min Estimated GFR () 126.2 Estimated GFR (Non- 108.9 BUN/Creatinine Ratio 20.1 Random Glucose 110 mg/dl Calcium Level 7.9 mg/dl Total Bilirubin 0.2 mg/dl Aspartate Amino Transf (AST/SGOT) 7 U/L Alanine Aminotransferase (ALT/SGPT) 14 U/L Alkaline Phosphatase 70 U/L Total Protein 6.3 gm/dl Albumin 2.4 gm/dl Globulin 3.9 gm/dl Albumin/Globulin Ratio 0.6 Lipase 210 U/L Assessment & Plan RECURRENT SMALL BOWEL OBSTRUCTION Recently discharge about 2 days ago for SBO S/P Exploratory Laparotomy Release of Small Bowel Obstruction, Small Bowel Decompression, Enterolysis, esophagogastroduodenoscopy on 11/[address] done on admission showed markedly dilated, fluid-filled small bowel and stomach consistent with a moderate to high-grade small bowel obstruction with transition point likely within the pelvis. Continue NGT suction continue morphine for pain Stable removed today from the bowel surgery Continue NPO Continue IVF Surgery on board 12/17 Abdominal pain improved Abd xray yesterday showed no significant change in the distended and fluid- filled loops of small bowel and stomach consistent with a small bowel obstruction. Continue NGT suction Keep NPO Continue IVF Will get KUB in am Surgery on board +Gastric Occult blood possible related to NGT trauma Hgb dropped to 8.5, then improved to 9.1 GI on board, no plan for EGD Last EGD w dilation done for dysphagia on 02/2017. On protonix 80 mg BID Continue monitor H/H Hx of PSVT s/p ablation Continue Stable COPD stable Chronic pain on fentanyl patch Continue morphine PRN DVT PROPHYLAXIS SCDs CODE STATUS FULL CODE Current Inpatient Medications: Current Inpatient Medications Medications (Trade) Dose Ordered Sig/Jennifer Route Start Time Stop Time Status Last Admin Dose Admin Ioversol (Optiray 320) 100 ml UD PRN IV 12/16/17 01:45 12/20/17 01:44 Acetaminophen (Tylenol Tab) 650 mg Q4H PRN PO 12/16/17 06:00 01/15/18 05:59 Aripiprazole (Abilify Tab) 30 mg QAM PO 12/16/17 09:00 01/15/18 08:59 12/17/17 12:51 30 MG Baclofen (Lioresal Tab) 10 mg TID PO 12/16/17 14:00 01/15/18 13:59 12/17/17 08:23 10 MG Cetirizine HCl (zyrTEC TAB) 10 mg QAM PO 12/16/17 09:00 01/15/18 08:59 12/17/17 08:23 10 MG Cyclobenzaprine HCl (Flexeril Tab) 10 mg TID PRN PO 12/16/17 06:00 01/15/18 05:59 Dicyclomine HCl (Bentyl Cap) 10 mg BID PO 12/16/17 09:00 01/15/18 08:59 12/16/17 21:39 10 MG Famotidine (Pepcid Tab) 40 mg DAILY PO 12/16/17 09:00 01/15/18 08:59 12/17/17 12:51 40 MG Gabapentin (Neurontin Cap) 300 mg TID PO 12/16/17 14:00 01/15/18 13:59 12/16/17 21:36 300 MG Acetaminophen/ Hydrocodone Bitart ([place] 10/325 Tab) 1 tab TID PRN PO 12/16/17 06:00 12/30/17 05:59 12/17/17 16:55 1 TAB Lamotrigine (Lamictal Tab) 25 mg BID PO 12/16/17 09:00 01/15/18 08:59 12/17/17 08:24 25 MG Lamotrigine (Lamictal Tab) 100 mg BID PO 12/16/17 09:00 01/15/18 08:59 12/17/17 08:25 100 MG Lorazepam (Ativan Tab) 1 mg BID PRN PO 12/16/17 06:00 01/15/18 05:59 Metoprolol Succinate (Toprol Xl Tab) 25 mg QAM PO 12/17/17 09:00 01/16/18 08:59 12/17/17 08:24 25 MG Montelukast Sodium (Singulair Tab) 10 mg HS PO 12/16/17 21:00 01/15/18 20:59 12/16/17 21:39 10 MG Multivitamins (Multivitamin Tab) 1 tab QAM PO 12/16/17 09:00 01/15/18 08:59 Multivitamins/ Minerals (Multivitamin W/ Minerals Tab) 1 tab DAILY PO 12/16/17 09:00 01/15/18 08:59 Buspirone HCl (Buspar Tab) 10 mg BID PO 12/16/17 09:00 01/15/18 08:59 12/17/17 08:23 10 MG Lubiprostone (Amitiza) 24 mcg BID PO 12/16/17 09:00 01/15/18 08:59 12/17/17 08:23 24 MCG Polyethylene (Miralax Powder Packet) 17 gm DAILY PRN PO 12/16/17 06:00 01/15/18 05:59 Morphine Sulfate (MoRPHine SULFATE INJ) 2 mg Q8H PRN IV 12/16/17 06:00 12/30/17 05:59 12/17/17 12:52 2 MG Prochlorperazine Edisylate 5 mg/ Syringe 5 ml @ 5 mls/min Q6H PRN IV 12/16/17 06:00 01/15/18 05:59 Ondansetron HCl (Zofran Inj) 4 mg Q6H PRN IV 12/16/17 06:00 01/15/18 05:59 Metoclopramide HCl (Reglan Inj) 10 mg Q6H PRN IV 12/16/17 06:00 01/15/18 05:59 Acetaminophen 650 mg/Empty Bag 65 ml @ 260 mls/hr Q6H PRN IV 12/16/17 06:00 01/15/18 05:59 Miscellaneous Information (Check Fentanyl Patch Placement) 1 ea QS N/A 12/16/17 16:00 01/15/18 15:59 12/17/17 15:34 1 EA Metoclopramide HCl (Reglan Inj) 5 mg Q6HWA IV. 12/16/17 09:00 01/15/18 08:59 12/17/17 12:52 5 MG Fentanyl (Duragesic Patch) 25 mcg Q3D@0900 TD 12/18/17 09:00 01/01/18 08:59 Miscellaneous (Fentanyl Patch Remove & Waste) 1 ea Q3D@0859 N/A 12/18/17 08:59 01/17/18 08:58 Pantoprazole Sodium 80 mg/ Syringe 20 ml @ 4 mls/min BID IV 12/17/17 21:00 01/16/18 20:59 Dextrose/Lactated Ringer's 1,000 ml @ 60 mls/hr [id number] IV 12/17/17 05:45 01/16/18 05:44 12/17/17 06:08 60 MLS/HR
[2017-12-17] MEDS: PANTOprazole INJ 80 MG in SYRINGE 0 ML IV SCH (21:19)
[2017-12-17] MEDS: MONTELUKAST SOD 10 MG TAB PO SCH (21:25)
[2017-12-17 23:45] VITALS: BP 106/68; PULSE 81; TEMP 36.6; O2SAT 93
[2017-12-18] MEDS: HYDROCODONE/ACETAMI 10/325 TAB PO PRN ×3 (01:58→22:25)
[2017-12-18] MEDS: METOCLOPRAMIDE HCL INJ 5 MG/ML 2 ML VIAL IV. SCH ×3 (05:39→18:48)
[2017-12-18 07:52] VITALS: BP 110/72; PULSE 78; TEMP 36.5; O2SAT 94
[2017-12-18] MEDS: MoRPHine SULFATE 2 MG/ML CARP IV PRN ×2 (07:56→18:48)
[2017-12-18] MEDS: CHECK FENTANYL PATCH PLACEMENT SCH ×2 (08:00→15:50)
[2017-12-18 08:22] LABS: HEMATOCRIT 29.5 % (37-47); MEAN CELL VOLUME 82.6 fL (80-100); MEAN CORPUSCULAR HEMOGLOBIN 25.2 pg (25-34); MEAN CORPUSCULAR HGB CONC 30.5 g/dl (32-36); MEAN PLATELET VOLUME 9.2 fL (7.4-10.4); PLATELET COUNT 359 K/uL (130-400); RED CELL DISTRIBUTION WIDTH CV 15.3 % (11.5-14.5); WHITE BLOOD COUNT 5.14 K/uL (4.8-10.8)
--- NOTE | 2017-12-18 08:30 | DIAGNOSTIC IMAGING REPORT ---
KUB CLINICAL HISTORY: Small bowel obstruction COMPARISON STUDY: 12/16/2017 FINDINGS: Extensive postsurgical changes are visualized. There is contrast within nondilated colon. There are persistent mildly dilated small bowel loops. IMPRESSION: Mildly dilated small bowel loops. Contrast within nondilated colon. Electronically signed by: Sukhdev Crenshaw M.D. 12/18/2017 8:29 AM Dictated Date/Time: 12/18/2017 8:27 AM
[2017-12-18 08:54] LABS: CALCIUM 8.7 mg/dl (8.5-10.1); CREATININE 0.52 mg/dl (0.60-1.20); POTASSIUM 3.4 mmol/L (3.5-5.1)
[2017-12-18] MEDS: FENTANYL PATCH REMOVE & WASTE SCH (08:59)
[2017-12-18] MEDS: METOPROLOL SUCC 25MG EXT REL TAB PO SCH (09:00)
[2017-12-18] MEDS: CETIRIZINE HCL 10 MG TAB PO SCH (09:00)
[2017-12-18] MEDS: GABAPENTIN 300 MG CAP PO SCH ×3 (09:00→20:41)
[2017-12-18] MEDS: CEROVITE ADV FORMULA TAB PO SCH (09:00)
[2017-12-18] MEDS: FAMOTIDINE 20 MG TAB PO SCH (09:00)
[2017-12-18] MEDS: DICYCLOMINE HCL 10 MG CAP PO SCH ×2 (09:00→20:41)
[2017-12-18] MEDS: MULTIVITAMIN TAB PO SCH (09:00)
--- NOTE | 2017-12-18 09:04 | Surgery Progress Note ---
Surgery Progress Note Date of Service Dec 18, 2017. Subjective + bowel movement (yesterday), + flatus, + diet (ice water, feeling hungry), No nausea Objective Vital Signs: Date Time Temp Pulse Resp B/P (MAP) Pulse Ox O2 Delivery O2 Flow Rate FiO2 12/18/17 07:52 36.5 78 18 110/72 (85) 94 Room Air 12/17/17 23:45 36.6 81 16 106/68 (81) 93 Room Air 12/17/17 23:35 Room Air 12/17/17 15:25 Room Air 12/17/17 15:00 36.8 87 16 102/67 (79) 96 Room Air Physical Exam: nasogastric drainage (50 cc overnight) Abdomen: non tender, non distended, soft Laboratory Results: Results Past 24 Hours Test 12/17/17 11:59 12/18/17 07:40 Range/Units Hemoglobin 9.1 9.0 12.0-16.0 g/dL Hematocrit 30.0 29.5 37-47 % White Blood Count 5.14 4.8-10.8 K/uL Red Blood Count 3.57 4.2-5.4 M/uL Mean Corpuscular Volume 82.6 80-100 fL Mean Corpuscular Hemoglobin 25.2 25-34 pg Mean Corpuscular Hemoglobin Concent 30.5 32-36 g/dl RDW Standard Deviation 46.0 36.4-46.3 fL RDW Coefficient of Variation 15.3 11.5-14.5 % Platelet Count 359 130-400 K/uL Mean Platelet Volume 9.2 7.4-10.4 fL Sodium Level 138 136-145 mmol/L Potassium Level 3.4 3.5-5.1 mmol/L Chloride Level 107 98-107 mmol/L Carbon Dioxide Level 24 21-32 mmol/L Anion Gap 7.0 3-11 mmol/L Blood Urea Nitrogen 3 7-18 mg/dl Creatinine 0.52 0.60-1.20 mg/dl Est Creatinine Clear Calc Drug Dose 102.3 ml/min Estimated GFR () 122.9 Estimated GFR (Non- 106.1 BUN/Creatinine Ratio 6.3 10-20 Random Glucose 96 70-99 mg/dl Calcium Level 8.7 8.5-10.1 mg/dl Diagnostic Interpretation: KUB CLINICAL HISTORY: Small bowel obstruction COMPARISON STUDY: 12/16/2017 FINDINGS: Extensive postsurgical changes are visualized. There is contrast within nondilated colon. There are persistent mildly dilated small bowel loops. IMPRESSION: Mildly dilated small bowel loops. Contrast within nondilated colon. Electronically signed by: Sukhdev Crenshaw M.D. 12/18/2017 8:29 AM Dictated Date/Time: 12/18/2017 8:27 AM Assessment & Plan s/p ex lap for SBO gastroparesis XR improved, contrast remains in colon. Will clamp NG, likely remove later today. Can begin clears at lunch.
[2017-12-18] MEDS: FENTANYL 25 MCG/HR TDSY TD SCH (09:44)
[2017-12-18] MEDS: LORAZEPAM 1 MG TAB PO PRN (09:48)
[2017-12-18] MEDS: ARIPIprazole TAB 15 MG TAB PO SCH (09:48)
[2017-12-18] MEDS: LUBIPROSTONE 8 MCG CAP PO SCH ×2 (09:52→20:42)
[2017-12-18] MEDS: BACLOFEN 10 MG TAB PO SCH ×3 (09:55→20:41)
[2017-12-18] MEDS ORDERED: POTASSIUM CHLORIDE 20 MEQ TABCR PO ONE (11:00)
[2017-12-18] MEDS: PANTOprazole INJ 80 MG in SYRINGE 0 ML IV SCH ×2 (14:03→20:39)
[2017-12-18] MEDS: D5W AND LACTATED RINGERS 1,000 ML IV SCH (15:49)
[2017-12-18 16:08] VITALS: BP 111/76; PULSE 95; TEMP 36.7; O2SAT 95
--- NOTE | 2017-12-18 17:53 | Progress Note ---
Medicine Progress Note Date & Time of Visit: Dec 18, 2017 at 10:47. Subjective Pt was seen and examined Lying in bed with no distress Pt said that abdominal pain improves Abdominal is less distended Denies any vomiting, chest pain, palpitation and SOB Objective Last 8 Hrs Date Time Temp Pulse Resp B/P (MAP) Pulse Ox O2 Delivery O2 Flow Rate FiO2 12/18/17 16:08 36.7 95 17 111/76 (88) 95 Room Air 12/18/17 10:12 Room Air Physical Exam: General- No acute distress Head- atraumatic Eyes- PERRL, EOMI ENT- NGT in placed Neck- supple, no JVD Lungs- No wheezing Heart- regular rhythm Abdomen- +bowel sounds, mild distended, +mild tenderness Extremities- no calf tenderness Neuro- alert, oriented, PERRL, EOMI Skin- warm & dry Laboratory Results: Last 24 Hours Test 12/18/17 07:40 White Blood Count 5.14 K/uL Red Blood Count 3.57 M/uL Hemoglobin 9.0 g/dL Hematocrit 29.5 % Mean Corpuscular Volume 82.6 fL Mean Corpuscular Hemoglobin 25.2 pg Mean Corpuscular Hemoglobin Concent 30.5 g/dl RDW Standard Deviation 46.0 fL RDW Coefficient of Variation 15.3 % Platelet Count 359 K/uL Mean Platelet Volume 9.2 fL Sodium Level 138 mmol/L Potassium Level 3.4 mmol/L Chloride Level 107 mmol/L Carbon Dioxide Level 24 mmol/L Anion Gap 7.0 mmol/L Blood Urea Nitrogen 3 mg/dl Creatinine 0.52 mg/dl Est Creatinine Clear Calc Drug Dose 102.3 ml/min Estimated GFR () 122.9 Estimated GFR (Non- 106.1 BUN/Creatinine Ratio 6.3 Random Glucose 96 mg/dl Calcium Level 8.7 mg/dl Assessment & Plan RECURRENT SMALL BOWEL OBSTRUCTION Recently discharge about 2 days ago for SBO S/P Exploratory Laparotomy Release of Small Bowel Obstruction, Small Bowel Decompression, Enterolysis, esophagogastroduodenoscopy on 11/[address] done on admission showed markedly dilated, fluid-filled small bowel and stomach consistent with a moderate to high-grade small bowel obstruction with transition point likely within the pelvis. Continue NGT suction continue morphine for pain Stable removed today from the bowel surgery Continue NPO Continue IVF Surgery on board 12/18 Abdominal pain improved KUB showed mildly dilated small bowel loops. Contrast within nondilated colon. NGT clamped starting on clear liquid diet Continue IVF Surgery on board Clinically improves +Gastric Occult blood possible related to NGT trauma Hgb dropped to 8.5, then improved to 9 GI on board, no plan for EGD Last EGD w dilation done for dysphagia on 02/2017. On protonix 80 mg BID Continue monitor H/H Stable Hypokalemia K replaced Monitor BMP Hx of PSVT s/p ablation Continue Stable COPD stable Chronic pain on fentanyl patch Continue morphine PRN DVT PROPHYLAXIS SCDs CODE STATUS FULL CODE Consultants: Gastro Surgery Current Inpatient Medications: Current Inpatient Medications Medications (Trade) Dose Ordered Sig/Jennifer Route Start Time Stop Time Status Last Admin Dose Admin Ioversol (Optiray 320) 100 ml UD PRN IV 12/16/17 01:45 12/20/17 01:44 Acetaminophen (Tylenol Tab) 650 mg Q4H PRN PO 12/16/17 06:00 01/15/18 05:59 Aripiprazole (Abilify Tab) 30 mg QAM PO 12/16/17 09:00 01/15/18 08:59 12/18/17 09:48 30 MG Baclofen (Lioresal Tab) 10 mg TID PO 12/16/17 14:00 01/15/18 13:59 12/18/17 14:04 10 MG Cetirizine HCl (zyrTEC TAB) 10 mg QAM PO 12/16/17 09:00 01/15/18 08:59 12/17/17 08:23 10 MG Cyclobenzaprine HCl (Flexeril Tab) 10 mg TID PRN PO 12/16/17 06:00 01/15/18 05:59 Dicyclomine HCl (Bentyl Cap) 10 mg BID PO 12/16/17 09:00 01/15/18 08:59 12/16/17 21:39 10 MG Famotidine (Pepcid Tab) 40 mg DAILY PO 12/16/17 09:00 01/15/18 08:59 12/17/17 12:51 40 MG Gabapentin (Neurontin Cap) 300 mg TID PO 12/16/17 14:00 01/15/18 13:59 12/18/17 14:04 300 MG Acetaminophen/ Hydrocodone Bitart ([place] 10/325 Tab) 1 tab TID PRN PO 12/16/17 06:00 12/30/17 05:59 12/18/17 14:06 1 TAB Lamotrigine (Lamictal Tab) 25 mg BID PO 12/16/17 09:00 01/15/18 08:59 12/18/17 09:54 25 MG Lamotrigine (Lamictal Tab) 100 mg BID PO 12/16/17 09:00 01/15/18 08:59 12/18/17 09:54 100 MG Lorazepam (Ativan Tab) 1 mg BID PRN PO 12/16/17 06:00 01/15/18 05:59 12/18/17 09:48 1 MG Metoprolol Succinate (Toprol Xl Tab) 25 mg QAM PO 12/17/17 09:00 01/16/18 08:59 12/17/17 08:24 25 MG Montelukast Sodium (Singulair Tab) 10 mg HS PO 12/16/17 21:00 01/15/18 20:59 12/17/17 21:25 10 MG Multivitamins (Multivitamin Tab) 1 tab QAM PO 12/16/17 09:00 01/15/18 08:59 Multivitamins/ Minerals (Multivitamin W/ Minerals Tab) 1 tab DAILY PO 12/16/17 09:00 01/15/18 08:59 Buspirone HCl (Buspar Tab) 10 mg BID PO 12/16/17 09:00 01/15/18 08:59 12/18/17 09:53 10 MG Lubiprostone (Amitiza) 24 mcg BID PO 12/16/17 09:00 01/15/18 08:59 12/18/17 09:52 24 MCG Polyethylene (Miralax Powder Packet) 17 gm DAILY PRN PO 12/16/17 06:00 01/15/18 05:59 Morphine Sulfate (MoRPHine SULFATE INJ) 2 mg Q8H PRN IV 12/16/17 06:00 12/30/17 05:59 12/18/17 07:56 2 MG Prochlorperazine Edisylate 5 mg/ Syringe 5 ml @ 5 mls/min Q6H PRN IV 12/16/17 06:00 01/15/18 05:59 Ondansetron HCl (Zofran Inj) 4 mg Q6H PRN IV 12/16/17 06:00 01/15/18 05:59 Metoclopramide HCl (Reglan Inj) 10 mg Q6H PRN IV 12/16/17 06:00 01/15/18 05:59 Acetaminophen 650 mg/Empty Bag 65 ml @ 260 mls/hr Q6H PRN IV 12/16/17 06:00 01/15/18 05:59 Miscellaneous Information (Check Fentanyl Patch Placement) 1 ea QS N/A 12/16/17 16:00 01/15/18 15:59 12/18/17 15:50 1 EA Metoclopramide HCl (Reglan Inj) 5 mg Q6HWA IV. 12/16/17 09:00 01/15/18 08:59 12/18/17 13:13 5 MG Fentanyl (Duragesic Patch) 25 mcg Q3D@0900 TD 12/18/17 09:00 01/01/18 08:59 12/18/17 09:44 25 MCG Miscellaneous (Fentanyl Patch Remove & Waste) 1 ea Q3D@0859 N/A 12/18/17 08:59 01/17/18 08:58 12/18/17 08:59 1 EA Pantoprazole Sodium 80 mg/ Syringe 20 ml @ 4 mls/min BID IV 12/17/17 21:00 01/16/18 20:59 12/18/17 14:03 4 MLS/MIN Dextrose/Lactated Ringer's 1,000 ml @ 60 mls/hr [id number] IV 12/17/17 05:45 01/16/18 05:44 12/18/17 15:49 60 MLS/HR
[2017-12-18] MEDS ORDERED: ZOLPIDEM TARTRATE 5 MG TAB PO PRN (19:15)
[2017-12-18] MEDS: MONTELUKAST SOD 10 MG TAB PO SCH (20:49)
[2017-12-18 22:55] VITALS: BP 108/74; PULSE 81; TEMP 36.4; O2SAT 99
[2017-12-19] MEDS: CHECK FENTANYL PATCH PLACEMENT SCH ×4 (01:11→23:56)
[2017-12-19] MEDS: METOCLOPRAMIDE HCL INJ 5 MG/ML 2 ML VIAL IV. SCH ×5 (01:11→23:56)
--- NOTE | 2017-12-19 05:28 | Surgery Progress Note ---
Surgery Progress Note Date of Service Dec 19, 2017. Subjective she is hungry- wants more food no emesis or pain Objective Vital Signs: Date Time Temp Pulse Resp B/P (MAP) Pulse Ox O2 Delivery O2 Flow Rate FiO2 12/18/17 22:55 36.4 81 14 108/74 (85) 99 Room Air 12/18/17 20:40 Room Air 12/18/17 16:08 36.7 95 17 111/76 (88) 95 Room Air 12/18/17 10:12 Room Air 12/18/17 07:52 36.5 78 18 110/72 (85) 94 Room Air 12/18/17 07:45 Room Air General Appearance: no apparent distress Respiratory/Chest: no respiratory distress Abdomen: non tender (has some bowel sounds), soft Laboratory Results: Results Past 24 Hours Test 12/18/17 07:40 12/19/17 04:44 Range/Units White Blood Count 5.14 4.8-10.8 K/uL Red Blood Count 3.57 4.2-5.4 M/uL Hemoglobin 9.0 12.0-16.0 g/dL Hematocrit 29.5 37-47 % Mean Corpuscular Volume 82.6 80-100 fL Mean Corpuscular Hemoglobin 25.2 25-34 pg Mean Corpuscular Hemoglobin Concent 30.5 32-36 g/dl RDW Standard Deviation 46.0 36.4-46.3 fL RDW Coefficient of Variation 15.3 11.5-14.5 % Platelet Count 359 130-400 K/uL Mean Platelet Volume 9.2 7.4-10.4 fL Sodium Level 138 136-145 mmol/L Potassium Level 3.4 3.5-5.1 mmol/L Chloride Level 107 98-107 mmol/L Carbon Dioxide Level 24 21-32 mmol/L Anion Gap 7.0 3-11 mmol/L Blood Urea Nitrogen 3 7-18 mg/dl Creatinine 0.52 0.60-1.20 mg/dl Est Creatinine Clear Calc Drug Dose 102.3 ml/min Estimated GFR () 122.9 Estimated GFR (Non- 106.1 BUN/Creatinine Ratio 6.3 10-20 Random Glucose 96 70-99 mg/dl Calcium Level 8.7 8.5-10.1 mg/dl Assessment & Plan 2/3/18- will try full liquids for lunch and advance very slowly check labs. encourage ambulation
[2017-12-19] MEDS: MoRPHine SULFATE 2 MG/ML CARP IV PRN ×2 (06:12→14:31)
[2017-12-19 07:16] LABS: HEMATOCRIT 28.6 % (37-47); HEMOGLOBIN 8.8 g/dL (12.0-16.0); MEAN CELL VOLUME 82.2 fL (80-100); MEAN CORPUSCULAR HEMOGLOBIN 25.3 pg (25-34); MEAN CORPUSCULAR HGB CONC 30.8 g/dl (32-36); PLATELET COUNT 299 K/uL (130-400); RED CELL DISTRIBUTION WIDTH CV 15.5 % (11.5-14.5); WHITE BLOOD COUNT 5.65 K/uL (4.8-10.8)
[2017-12-19 07:30] VITALS: BP 115/72; PULSE 70; TEMP 36.4; O2SAT 92
[2017-12-19 07:44] LABS: CALCIUM 8.6 mg/dl (8.5-10.1); CREATININE 0.57 mg/dl (0.60-1.20); POTASSIUM 3.2 mmol/L (3.5-5.1)
[2017-12-19] MEDS ORDERED: POTASSIUM CHLORIDE 20 MEQ TABCR PO ONE (08:00)
[2017-12-19] MEDS ORDERED: MAGNESIUM SULFATE 1GM / D5W 1 GM in PREMIXED IN D5W 100 ML IV ONE (08:30)
[2017-12-19] MEDS: MULTIVITAMIN TAB PO SCH (09:00)
[2017-12-19] MEDS: CEROVITE ADV FORMULA TAB PO SCH (09:00)
[2017-12-19] MEDS: D5W AND LACTATED RINGERS 1,000 ML IV SCH (10:01)
[2017-12-19] MEDS: HYDROCODONE/ACETAMI 10/325 TAB PO PRN ×3 (10:11→23:56)
[2017-12-19] MEDS: FAMOTIDINE 20 MG TAB PO SCH (10:12)
[2017-12-19] MEDS: PANTOprazole INJ 80 MG in SYRINGE 0 ML IV SCH ×2 (10:12→21:58)
[2017-12-19] MEDS: CETIRIZINE HCL 10 MG TAB PO SCH (10:14)
[2017-12-19] MEDS: GABAPENTIN 300 MG CAP PO SCH ×3 (10:15→21:10)
[2017-12-19] MEDS: BACLOFEN 10 MG TAB PO SCH ×3 (10:15→21:09)
[2017-12-19] MEDS: ARIPIprazole TAB 15 MG TAB PO SCH (10:16)
[2017-12-19] MEDS: DICYCLOMINE HCL 10 MG CAP PO SCH ×2 (10:16→21:10)
[2017-12-19] MEDS: LUBIPROSTONE 8 MCG CAP PO SCH ×2 (10:16→22:00)
[2017-12-19] MEDS: METOPROLOL SUCC 25MG EXT REL TAB PO SCH (10:21)
[2017-12-19] MEDS: LORAZEPAM 1 MG TAB PO PRN (14:47)
[2017-12-19 15:35] VITALS: BP 104/70; PULSE 77; TEMP 36.6; O2SAT 97
--- NOTE | 2017-12-19 16:35 | Progress Note ---
Medicine Progress Note Date & Time of Visit: Dec 19, 2017 at 16:27. Subjective Pt was seen and examined Sitting in chair with no distress Pt said that she feels much better today she tolerated her liquid diet she said that she had a small BM yesterday She said that abdomen is less tender and distended Denies any chest pain, palpitation and SOB Objective Last 8 Hrs Date Time Temp Pulse Resp B/P (MAP) Pulse Ox O2 Delivery O2 Flow Rate FiO2 12/19/17 15:35 36.6 77 16 104/70 (81) 97 Room Air 12/19/17 09:00 Room Air Physical Exam: General- No acute distress Head- atraumatic Eyes- PERRL, EOMI ENT- trachea midline Neck- supple, no JVD Lungs- No wheezing Heart- regular rhythm Abdomen- +bowel sounds, mild distended, +mild tenderness Extremities- no calf tenderness Neuro- alert, oriented, PERRL, EOMI Skin- warm & dry Laboratory Results: Last 24 Hours Test 12/19/17 06:55 White Blood Count 5.65 K/uL Red Blood Count 3.48 M/uL Hemoglobin 8.8 g/dL Hematocrit 28.6 % Mean Corpuscular Volume 82.2 fL Mean Corpuscular Hemoglobin 25.3 pg Mean Corpuscular Hemoglobin Concent 30.8 g/dl RDW Standard Deviation 46.0 fL RDW Coefficient of Variation 15.5 % Platelet Count 299 K/uL Mean Platelet Volume 9.0 fL Sodium Level 140 mmol/L Potassium Level 3.2 mmol/L Chloride Level 108 mmol/L Carbon Dioxide Level 23 mmol/L Anion Gap 9.0 mmol/L Blood Urea Nitrogen 4 mg/dl Creatinine 0.57 mg/dl Est Creatinine Clear Calc Drug Dose 93.4 ml/min Estimated GFR () 119.3 Estimated GFR (Non- 102.9 BUN/Creatinine Ratio 7.2 Random Glucose 92 mg/dl Calcium Level 8.6 mg/dl Magnesium Level 1.7 mg/dl Assessment & Plan RECURRENT SMALL BOWEL OBSTRUCTION Recently discharge about 2 days ago for SBO S/P Exploratory Laparotomy Release of Small Bowel Obstruction, Small Bowel Decompression, Enterolysis, esophagogastroduodenoscopy on 11/[address] done on admission showed markedly dilated, fluid-filled small bowel and stomach consistent with a moderate to high-grade small bowel obstruction with transition point likely within the pelvis. Continue NGT suction continue morphine for pain Stable removed today from the bowel surgery Continue NPO Continue IVF Surgery on board 2 Abdominal pain improved significantly KUB yesterday showed mildly dilated small bowel loops. Contrast within nondilated colon. NGT removed tolerated clear liquid diet and advance to full liquid Continue IVF Surgery on board Monitor electrolytes Clinically improves +Gastric Occult blood possible related to NGT trauma Hgb 8.8 today GI on board, no plan for EGD Last EGD w dilation done for dysphagia on 02/2017. On protonix 80 mg BID Continue monitor H/H Stable Electrolytes imbalance K and Mg replaced Continue monitor electrolytes Hx of PSVT s/p ablation Continue Stable COPD stable Chronic pain on fentanyl patch Will change to PO narcotic DVT PROPHYLAXIS SCDs CODE STATUS FULL CODE Consultants: Gastro Surgery Current Inpatient Medications: Current Inpatient Medications Medications (Trade) Dose Ordered Sig/Jennifer Route Start Time Stop Time Status Last Admin Dose Admin Ioversol (Optiray 320) 100 ml UD PRN IV 12/16/17 01:45 12/20/17 01:44 Acetaminophen (Tylenol Tab) 650 mg Q4H PRN PO 12/16/17 06:00 01/15/18 05:59 Aripiprazole (Abilify Tab) 30 mg QAM PO 12/16/17 09:00 01/15/18 08:59 12/19/17 10:16 30 MG Baclofen (Lioresal Tab) 10 mg TID PO 12/16/17 14:00 01/15/18 13:59 12/19/17 14:33 10 MG Cetirizine HCl (zyrTEC TAB) 10 mg QAM PO 12/16/17 09:00 01/15/18 08:59 12/19/17 10:14 10 MG Cyclobenzaprine HCl (Flexeril Tab) 10 mg TID PRN PO 12/16/17 06:00 01/15/18 05:59 Dicyclomine HCl (Bentyl Cap) 10 mg BID PO 12/16/17 09:00 01/15/18 08:59 12/19/17 10:16 10 MG Famotidine (Pepcid Tab) 40 mg DAILY PO 12/16/17 09:00 01/15/18 08:59 12/19/17 10:12 40 MG Gabapentin (Neurontin Cap) 300 mg TID PO 12/16/17 14:00 01/15/18 13:59 12/19/17 14:33 300 MG Acetaminophen/ Hydrocodone Bitart ([place] 10/325 Tab) 1 tab TID PRN PO 12/16/17 06:00 12/30/17 05:59 12/19/17 10:11 1 TAB Lamotrigine (Lamictal Tab) 25 mg BID PO 12/16/17 09:00 01/15/18 08:59 12/19/17 10:18 25 MG Lamotrigine (Lamictal Tab) 100 mg BID PO 12/16/17 09:00 01/15/18 08:59 12/19/17 10:13 100 MG Lorazepam (Ativan Tab) 1 mg BID PRN PO 12/16/17 06:00 01/15/18 05:59 12/19/17 14:47 1 MG Metoprolol Succinate (Toprol Xl Tab) 25 mg QAM PO 12/17/17 09:00 01/16/18 08:59 12/19/17 10:21 25 MG Montelukast Sodium (Singulair Tab) 10 mg HS PO 12/16/17 21:00 01/15/18 20:59 12/18/17 20:49 10 MG Multivitamins (Multivitamin Tab) 1 tab QAM PO 12/16/17 09:00 01/15/18 08:59 Multivitamins/ Minerals (Multivitamin W/ Minerals Tab) 1 tab DAILY PO 12/16/17 09:00 01/15/18 08:59 Buspirone HCl (Buspar Tab) 10 mg BID PO 12/16/17 09:00 01/15/18 08:59 12/19/17 10:18 10 MG Lubiprostone (Amitiza) 24 mcg BID PO 12/16/17 09:00 01/15/18 08:59 12/19/17 10:16 24 MCG Polyethylene (Miralax Powder Packet) 17 gm DAILY PRN PO 12/16/17 06:00 01/15/18 05:59 Morphine Sulfate (MoRPHine SULFATE INJ) 2 mg Q8H PRN IV 12/16/17 06:00 12/30/17 05:59 12/19/17 14:31 2 MG Prochlorperazine Edisylate 5 mg/ Syringe 5 ml @ 5 mls/min Q6H PRN IV 12/16/17 06:00 01/15/18 05:59 Ondansetron HCl (Zofran Inj) 4 mg Q6H PRN IV 12/16/17 06:00 01/15/18 05:59 Metoclopramide HCl (Reglan Inj) 10 mg Q6H PRN IV 12/16/17 06:00 01/15/18 05:59 Acetaminophen 650 mg/Empty Bag 65 ml @ 260 mls/hr Q6H PRN IV 12/16/17 06:00 01/15/18 05:59 Miscellaneous Information (Check Fentanyl Patch Placement) 1 ea QS N/A 12/16/17 16:00 01/15/18 15:59 12/19/17 08:00 1 EA Metoclopramide HCl (Reglan Inj) 5 mg Q6HWA IV. 12/16/17 09:00 01/15/18 08:59 12/19/17 14:29 5 MG Fentanyl (Duragesic Patch) 25 mcg Q3D@0900 TD 12/18/17 09:00 01/01/18 08:59 12/18/17 09:44 25 MCG Miscellaneous (Fentanyl Patch Remove & Waste) 1 ea Q3D@0859 N/A 12/18/17 08:59 01/17/18 08:58 12/18/17 08:59 1 EA Pantoprazole Sodium 80 mg/ Syringe 20 ml @ 4 mls/min BID IV 12/17/17 21:00 01/16/18 20:59 12/19/17 10:12 4 MLS/MIN Dextrose/Lactated Ringer's 1,000 ml @ 60 mls/hr [id number] IV 12/17/17 05:45 01/16/18 05:44 12/19/17 10:01 60 MLS/HR Zolpidem Tartrate (Ambien Tab) 5 mg ONE PRN PO 12/18/17 19:15 01/17/18 19:14
[2017-12-19] MEDS: MONTELUKAST SOD 10 MG TAB PO SCH (22:00)
[2017-12-19 23:24] VITALS: BP 100/67; PULSE 76; TEMP 36.6; O2SAT 99
[2017-12-20] MEDS ORDERED: NURSING DECISION MEDICATION ORDER SCH ×2 (01:15→07:00)
[2017-12-20] MEDS: HYDROCODONE/ACETAMI 10/325 TAB PO PRN ×3 (04:48→23:40)
[2017-12-20] MEDS: D5W AND LACTATED RINGERS 1,000 ML IV SCH (04:49)
--- NOTE | 2017-12-20 06:08 | Surgery Progress Note ---
Surgery Progress Note Date of Service Dec 20, 2017. Subjective pt is very pleasant- no abd pain- Hungry tolerating full liquids, ++flatus, no bm Objective Vital Signs: Date Time Temp Pulse Resp B/P (MAP) Pulse Ox O2 Delivery O2 Flow Rate FiO2 12/19/17 23:55 Room Air 12/19/17 23:24 36.6 76 16 100/67 (78) 99 Room Air 12/19/17 16:30 Room Air 12/19/17 15:35 36.6 77 16 104/70 (81) 97 Room Air 12/19/17 09:00 Room Air 12/19/17 07:30 36.4 70 15 115/72 (86) 92 Room Air General Appearance: no apparent distress Respiratory/Chest: no respiratory distress Abdomen: non tender, soft Laboratory Results: Results Past 24 Hours Test 12/19/17 06:55 12/20/17 04:44 Range/Units White Blood Count 5.65 4.8-10.8 K/uL Red Blood Count 3.48 4.2-5.4 M/uL Hemoglobin 8.8 12.0-16.0 g/dL Hematocrit 28.6 37-47 % Mean Corpuscular Volume 82.2 80-100 fL Mean Corpuscular Hemoglobin 25.3 25-34 pg Mean Corpuscular Hemoglobin Concent 30.8 32-36 g/dl RDW Standard Deviation 46.0 36.4-46.3 fL RDW Coefficient of Variation 15.5 11.5-14.5 % Platelet Count 299 130-400 K/uL Mean Platelet Volume 9.0 7.4-10.4 fL Sodium Level 140 136-145 mmol/L Potassium Level 3.2 3.5-5.1 mmol/L Chloride Level 108 98-107 mmol/L Carbon Dioxide Level 23 21-32 mmol/L Anion Gap 9.0 3-11 mmol/L Blood Urea Nitrogen 4 7-18 mg/dl Creatinine 0.57 0.60-1.20 mg/dl Est Creatinine Clear Calc Drug Dose 93.4 ml/min Estimated GFR () 119.3 Estimated GFR (Non- 102.9 BUN/Creatinine Ratio 7.2 10-20 Random Glucose 92 70-99 mg/dl Calcium Level 8.6 8.5-10.1 mg/dl Magnesium Level 1.7 1.8-2.4 mg/dl Assessment & Plan 12/20/17- wants more to eat- try low fiber diet- dose of mineral oil, senna syrup- monitor progress- cont other meds. check labs. Overall she is improving 12/19/17- will try full liquids for lunch and advance very slowly check labs. encourage ambulation 12/19/17- will try full liquids for lunch and advance very slowly check labs. encourage ambulation
[2017-12-20] MEDS: METOCLOPRAMIDE HCL INJ 5 MG/ML 2 ML VIAL IV. SCH ×4 (06:11→23:39)
[2017-12-20] MEDS ORDERED: MINERAL OIL 30 ML UDC PO ONE (06:15)
[2017-12-20] MEDS: MoRPHine SULFATE 2 MG/ML CARP IV PRN (06:20)
[2017-12-20 07:20] VITALS: BP 110/71; PULSE 60; TEMP 36.6; O2SAT 98
[2017-12-20 07:29] LABS: HEMOGLOBIN 9.1 g/dL (12.0-16.0); MEAN CELL VOLUME 83.1 fL (80-100); MEAN CORPUSCULAR HEMOGLOBIN 25.2 pg (25-34); MEAN CORPUSCULAR HGB CONC 30.3 g/dl (32-36); PLATELET COUNT 330 K/uL (130-400); RED CELL DISTRIBUTION WIDTH CV 15.6 % (11.5-14.5); RED CELL DISTRIBUTION WIDTH SD 47.3 fL (36.4-46.3); WHITE BLOOD COUNT 5.93 K/uL (4.8-10.8)
[2017-12-20] MEDS: CHECK FENTANYL PATCH PLACEMENT SCH ×3 (08:00→23:41)
[2017-12-20 08:02] LABS: CALCIUM 8.9 mg/dl (8.5-10.1); CREATININE 0.72 mg/dl (0.60-1.20); POTASSIUM 3.6 mmol/L (3.5-5.1)
[2017-12-20] MEDS: CEROVITE ADV FORMULA TAB PO SCH (08:51)
[2017-12-20] MEDS: MULTIVITAMIN TAB PO SCH (08:51)
[2017-12-20] MEDS: SENNA 8.8 MG/5 ML UDP PO SCH ×2 (08:52→21:52)
[2017-12-20] MEDS: DICYCLOMINE HCL 10 MG CAP PO SCH ×2 (08:53→21:50)
[2017-12-20] MEDS: CETIRIZINE HCL 10 MG TAB PO SCH (08:53)
[2017-12-20] MEDS: GABAPENTIN 300 MG CAP PO SCH ×3 (08:55→21:50)
[2017-12-20] MEDS: FAMOTIDINE 20 MG TAB PO SCH (08:56)
[2017-12-20] MEDS: METOPROLOL SUCC 25MG EXT REL TAB PO SCH (08:57)
[2017-12-20] MEDS: BACLOFEN 10 MG TAB PO SCH ×3 (08:57→21:49)
[2017-12-20] MEDS: LUBIPROSTONE 8 MCG CAP PO SCH ×2 (08:57→21:55)
[2017-12-20] MEDS: ARIPIprazole TAB 15 MG TAB PO SCH (08:58)
[2017-12-20] MEDS: PANTOprazole INJ 80 MG in SYRINGE 0 ML IV SCH ×2 (10:41→21:49)
[2017-12-20 15:32] VITALS: BP 111/71; PULSE 75; TEMP 37.1; O2SAT 100
--- NOTE | 2017-12-20 15:53 | Progress Note ---
Medicine Progress Note Date & Time of Visit: Dec 20, 2017 at 15:47. Subjective Pt was seen and examined Sitting in chair with no distress Pt said that she feels better She said that she does not have any abdominal pain She tolerated full liquid diet Last BM was on 12/18 Denies any chest pain, palpitation, dizziness and SOB Objective Last 8 Hrs Date Time Temp Pulse Resp B/P (MAP) Pulse Ox O2 Delivery O2 Flow Rate FiO2 12/20/17 15:32 37.1 75 18 111/71 (84) 100 Room Air 12/20/17 08:20 Room Air Physical Exam: General- No acute distress Head- atraumatic Eyes- PERRL, EOMI ENT- trachea midline Neck- supple, no JVD Lungs- No wheezing Heart- regular rhythm Abdomen- +bowel sounds, mild distended, +mild tenderness Extremities- no calf tenderness Neuro- alert, oriented, PERRL, EOMI Skin- warm & dry Laboratory Results: Last 24 Hours Test 12/20/17 06:57 White Blood Count 5.93 K/uL Red Blood Count 3.61 M/uL Hemoglobin 9.1 g/dL Hematocrit 30.0 % Mean Corpuscular Volume 83.1 fL Mean Corpuscular Hemoglobin 25.2 pg Mean Corpuscular Hemoglobin Concent 30.3 g/dl RDW Standard Deviation 47.3 fL RDW Coefficient of Variation 15.6 % Platelet Count 330 K/uL Mean Platelet Volume 9.0 fL Sodium Level 140 mmol/L Potassium Level 3.6 mmol/L Chloride Level 108 mmol/L Carbon Dioxide Level 23 mmol/L Anion Gap 9.0 mmol/L Blood Urea Nitrogen 4 mg/dl Creatinine 0.72 mg/dl Est Creatinine Clear Calc Drug Dose 73.9 ml/min Estimated GFR () 107.7 Estimated GFR (Non- 93.0 BUN/Creatinine Ratio 5.3 Random Glucose 101 mg/dl Calcium Level 8.9 mg/dl Magnesium Level 2.0 mg/dl Assessment & Plan RECURRENT SMALL BOWEL OBSTRUCTION Recently discharge about 2 days ago for SBO S/P Exploratory Laparotomy Release of Small Bowel Obstruction, Small Bowel Decompression, Enterolysis, esophagogastroduodenoscopy on 11/[address] done on admission showed markedly dilated, fluid-filled small bowel and stomach consistent with a moderate to high-grade small bowel obstruction with transition point likely within the pelvis. Continue NGT suction continue morphine for pain Stable removed today from the bowel surgery Continue NPO Continue IVF Surgery on board 12/20 Abdominal pain improved significantly KUB yesterday showed mildly dilated small bowel loops. Contrast within nondilated colon. NGT removed Tolerated full liquid diet, diet advanced to low fiber D/C IVF D/C IV morphine Surgery on board Monitor electrolytes Clinically improves +Gastric Occult blood possible related to NGT trauma Hgb 9.1 today GI on board, no plan for EGD Last EGD w dilation done for dysphagia on 02/2017. On protonix 80 mg BID Continue monitor H/H Stable Electrolytes imbalance K and Mg stable Continue monitor electrolytes Hx of PSVT s/p ablation Continue Stable COPD stable Chronic pain on fentanyl patch Will change to PO narcotic DVT PROPHYLAXIS SCDs CODE STATUS FULL CODE Consultants: Gastro Surgery Current Inpatient Medications: Current Inpatient Medications Medications (Trade) Dose Ordered Sig/Jennifer Route Start Time Stop Time Status Last Admin Dose Admin Acetaminophen (Tylenol Tab) 650 mg Q4H PRN PO 12/16/17 06:00 01/15/18 05:59 Aripiprazole (Abilify Tab) 30 mg QAM PO 12/16/17 09:00 01/15/18 08:59 12/20/17 08:58 30 MG Baclofen (Lioresal Tab) 10 mg TID PO 12/16/17 14:00 01/15/18 13:59 12/20/17 14:42 10 MG Cetirizine HCl (zyrTEC TAB) 10 mg QAM PO 12/16/17 09:00 01/15/18 08:59 12/20/17 08:53 10 MG Cyclobenzaprine HCl (Flexeril Tab) 10 mg TID PRN PO 12/16/17 06:00 01/15/18 05:59 Dicyclomine HCl (Bentyl Cap) 10 mg BID PO 12/16/17 09:00 01/15/18 08:59 12/20/17 08:53 10 MG Famotidine (Pepcid Tab) 40 mg DAILY PO 12/16/17 09:00 01/15/18 08:59 12/20/17 08:56 40 MG Gabapentin (Neurontin Cap) 300 mg TID PO 12/16/17 14:00 01/15/18 13:59 12/20/17 14:42 300 MG Acetaminophen/ Hydrocodone Bitart ([place] 10/325 Tab) 1 tab TID PRN PO 12/16/17 06:00 12/30/17 05:59 12/20/17 14:44 1 TAB Lamotrigine (Lamictal Tab) 25 mg BID PO 12/16/17 09:00 01/15/18 08:59 12/20/17 08:54 25 MG Lamotrigine (Lamictal Tab) 100 mg BID PO 12/16/17 09:00 01/15/18 08:59 12/20/17 08:53 100 MG Lorazepam (Ativan Tab) 1 mg BID PRN PO 12/16/17 06:00 01/15/18 05:59 12/19/17 14:47 1 MG Metoprolol Succinate (Toprol Xl Tab) 25 mg QAM PO 12/17/17 09:00 01/16/18 08:59 12/20/17 08:57 25 MG Montelukast Sodium (Singulair Tab) 10 mg HS PO 12/16/17 21:00 01/15/18 20:59 12/19/17 22:00 10 MG Multivitamins (Multivitamin Tab) 1 tab QAM PO 12/16/17 09:00 01/15/18 08:59 Multivitamins/ Minerals (Multivitamin W/ Minerals Tab) 1 tab DAILY PO 12/16/17 09:00 01/15/18 08:59 Buspirone HCl (Buspar Tab) 10 mg BID PO 12/16/17 09:00 01/15/18 08:59 12/20/17 08:55 10 MG Lubiprostone (Amitiza) 24 mcg BID PO 12/16/17 09:00 01/15/18 08:59 12/20/17 08:57 24 MCG Polyethylene (Miralax Powder Packet) 17 gm DAILY PRN PO 12/16/17 06:00 01/15/18 05:59 Prochlorperazine Edisylate 5 mg/ Syringe 5 ml @ 5 mls/min Q6H PRN IV 12/16/17 06:00 01/15/18 05:59 Ondansetron HCl (Zofran Inj) 4 mg Q6H PRN IV 12/16/17 06:00 01/15/18 05:59 Metoclopramide HCl (Reglan Inj) 10 mg Q6H PRN IV 12/16/17 06:00 01/15/18 05:59 Acetaminophen 650 mg/Empty Bag 65 ml @ 260 mls/hr Q6H PRN IV 12/16/17 06:00 01/15/18 05:59 Miscellaneous Information (Check Fentanyl Patch Placement) 1 ea QS N/A 12/16/17 16:00 01/15/18 15:59 12/20/17 08:00 1 EA Metoclopramide HCl (Reglan Inj) 5 mg Q6HWA IV. 12/16/17 09:00 01/15/18 08:59 12/20/17 13:01 5 MG Fentanyl (Duragesic Patch) 25 mcg Q3D@0900 TD 12/18/17 09:00 01/01/18 08:59 12/18/17 09:44 25 MCG Miscellaneous (Fentanyl Patch Remove & Waste) 1 ea Q3D@0859 N/A 12/18/17 08:59 01/17/18 08:58 12/18/17 08:59 1 EA Pantoprazole Sodium 80 mg/ Syringe 20 ml @ 4 mls/min BID IV 12/17/17 21:00 01/16/18 20:59 12/20/17 10:41 4 MLS/MIN Zolpidem Tartrate (Ambien Tab) 5 mg ONE PRN PO 12/18/17 19:15 01/17/18 19:14 Senna (Senokot Syrup) 8.8 mg BID PO 12/20/17 09:00 01/19/18 08:59
[2017-12-20] MEDS: MONTELUKAST SOD 10 MG TAB PO SCH (21:53)
[2017-12-20 22:42] VITALS: BP 97/66; PULSE 74; TEMP 36.7; O2SAT 97
[2017-12-21] MEDS: HYDROCODONE/ACETAMI 10/325 TAB PO PRN ×2 (04:48→19:08)
[2017-12-21] MEDS: METOCLOPRAMIDE HCL INJ 5 MG/ML 2 ML VIAL IV. SCH ×3 (05:55→19:13)
--- NOTE | 2017-12-21 06:36 | Surgery Progress Note ---
Surgery Progress Note Date of Service Dec 21, 2017. Subjective + feeling well, + ambulating, + bowel movement (Semi-formed, medium sized, denies blood), + flatus, + pain controlled, + diet (Tolerating low fiber diet), No complaints, No nausea, No vomiting Objective Vital Signs: Date Time Temp Pulse Resp B/P (MAP) Pulse Ox O2 Delivery O2 Flow Rate FiO2 12/20/17 23:40 Room Air 12/20/17 22:42 36.7 74 14 97/66 (76) 97 Room Air 12/20/17 15:37 Room Air 12/20/17 15:32 37.1 75 18 111/71 (84) 100 Room Air 12/20/17 08:20 Room Air 12/20/17 07:20 36.6 60 16 110/71 (84) 98 Room Air General Appearance: WD/WN, no apparent distress Head: normocephalic, atraumatic Neck: trachea midline Respiratory/Chest: no respiratory distress, no accessory muscle use Abdomen: normal bowel sounds, non tender, no organomegaly, + distended (mild) Incision(s): clean, dry, intact, no erythema, no drainage Laboratory Results: Results Past 24 Hours Test 12/20/17 06:57 12/21/17 05:55 12/21/17 06:11 Range/Units White Blood Count 5.93 4.8-10.8 K/uL Red Blood Count 3.61 4.2-5.4 M/uL Hemoglobin 9.1 12.0-16.0 g/dL Hematocrit 30.0 37-47 % Mean Corpuscular Volume 83.1 80-100 fL Mean Corpuscular Hemoglobin 25.2 25-34 pg Mean Corpuscular Hemoglobin Concent 30.3 32-36 g/dl RDW Standard Deviation 47.3 36.4-46.3 fL RDW Coefficient of Variation 15.6 11.5-14.5 % Platelet Count 330 130-400 K/uL Mean Platelet Volume 9.0 7.4-10.4 fL Sodium Level 140 136-145 mmol/L Potassium Level 3.6 3.5-5.1 mmol/L Chloride Level 108 98-107 mmol/L Carbon Dioxide Level 23 21-32 mmol/L Anion Gap 9.0 3-11 mmol/L Blood Urea Nitrogen 4 7-18 mg/dl Creatinine 0.72 0.60-1.20 mg/dl Est Creatinine Clear Calc Drug Dose 73.9 ml/min Estimated GFR () 107.7 Estimated GFR (Non- 93.0 BUN/Creatinine Ratio 5.3 10-20 Random Glucose 101 70-99 mg/dl Calcium Level 8.9 8.5-10.1 mg/dl Magnesium Level 2.0 1.8-2.4 mg/dl Assessment & Plan 12/21/17: Pain Controlled, +Flatus, + BM Yesterday, Tolerating low-fiber diet, No N/V. H/H stable - AM labs pending. Continue medical management as needed, Encourage ambulation. Possible D/C today or tomorrow but want to take things slow given patient's history with these obstructions. Will discuss findings with Dr. Coello. Please contact with questions or concerns.
[2017-12-21 07:02] LABS: BASO % 0.3 %; BASO ABS # 0.02 K/uL (0-0.2); EOS ABS # 0.18 K/uL (0-0.5); HEMATOCRIT 32.1 % (37-47); HEMOGLOBIN 9.5 g/dL (12.0-16.0); IG# 0.02 K/uL (0.00-0.02); LYMPH % 48.2 %; LYMPH ABS # 2.89 K/uL (1.2-3.4); MEAN CELL VOLUME 82.5 fL (80-100); MEAN CORPUSCULAR HEMOGLOBIN 24.4 pg (25-34); MEAN CORPUSCULAR HGB CONC 29.6 g/dl (32-36); MEAN PLATELET VOLUME 9.7 fL (7.4-10.4); MONO % 11.5 %; MONO ABS # 0.69 K/uL (0.11-0.59); NEUT % 36.7 %; NEUT ABS # 2.19 K/uL (1.4-6.5); PLATELET COUNT 347 K/uL (130-400); RED CELL DISTRIBUTION WIDTH CV 15.7 % (11.5-14.5); RED CELL DISTRIBUTION WIDTH SD 47.4 fL (36.4-46.3); WHITE BLOOD COUNT 5.99 K/uL (4.8-10.8)
[2017-12-21 07:05] LABS: CALCIUM 8.8 mg/dl (8.5-10.1); CREATININE 0.78 mg/dl (0.60-1.20); POTASSIUM 3.9 mmol/L (3.5-5.1)
[2017-12-21 08:00] VITALS: BP 109/73; PULSE 68; TEMP 36.7; O2SAT 96
[2017-12-21] MEDS: CHECK FENTANYL PATCH PLACEMENT SCH ×2 (08:00→15:48)
[2017-12-21] MEDS: CEROVITE ADV FORMULA TAB PO SCH (09:00)
[2017-12-21] MEDS: MULTIVITAMIN TAB PO SCH (09:00)
[2017-12-21] MEDS: METOPROLOL SUCC 25MG EXT REL TAB PO SCH (09:00)
[2017-12-21] MEDS: PANTOprazole INJ 80 MG in SYRINGE 0 ML IV SCH ×2 (09:08→21:34)
[2017-12-21] MEDS: DICYCLOMINE HCL 10 MG CAP PO SCH ×2 (09:09→21:36)
[2017-12-21] MEDS: CETIRIZINE HCL 10 MG TAB PO SCH (09:10)
[2017-12-21] MEDS: BACLOFEN 10 MG TAB PO SCH ×3 (09:10→21:38)
[2017-12-21] MEDS: LUBIPROSTONE 8 MCG CAP PO SCH ×2 (09:12→21:39)
[2017-12-21] MEDS: ARIPIprazole TAB 15 MG TAB PO SCH (09:12)
[2017-12-21] MEDS: GABAPENTIN 300 MG CAP PO SCH ×3 (09:13→21:37)
[2017-12-21 09:14] VITALS: O2SAT 96
[2017-12-21] MEDS: FAMOTIDINE 20 MG TAB PO SCH (09:14)
[2017-12-21] MEDS: FENTANYL 25 MCG/HR TDSY TD SCH (09:15)
[2017-12-21] MEDS: SENNA 8.8 MG/5 ML UDP PO SCH ×2 (09:15→21:37)
[2017-12-21] MEDS: FENTANYL PATCH REMOVE & WASTE SCH (09:29)
--- NOTE | 2017-12-21 14:42 | Progress Note ---
Medicine Progress Note Date & Time of Visit: Dec 21, 2017 at 14:32. Subjective Pt was seen and examined Sitting in chair comfortable with no distress Pt said that she does not have any abdominal pain She said that she tolerated low fiber diet She has not had a BM in the last 2 days Plan to transfer to [facility] when there is a bed available Denies any chest pain, palpitation, dizziness and SOB Objective Last 8 Hrs Date Time Temp Pulse Resp B/P (MAP) Pulse Ox O2 Delivery O2 Flow Rate FiO2 12/21/17 09:14 96 Room Air 12/21/17 08:00 Room Air 12/21/17 08:00 36.7 68 14 109/73 (85) 96 Room Air Physical Exam: General- No acute distress Head- atraumatic Eyes- PERRL, EOMI ENT- trachea midline Neck- supple, no JVD Lungs- No wheezing Heart- regular rhythm Abdomen- +bowel sounds, non tender, +mild distended Extremities- no calf tenderness Neuro- alert, oriented, PERRL, EOMI Skin- warm & dry Laboratory Results: Last 24 Hours Test 12/21/17 05:55 White Blood Count 5.99 K/uL Red Blood Count 3.89 M/uL Hemoglobin 9.5 g/dL Hematocrit 32.1 % Mean Corpuscular Volume 82.5 fL Mean Corpuscular Hemoglobin 24.4 pg Mean Corpuscular Hemoglobin Concent 29.6 g/dl Platelet Count 347 K/uL Mean Platelet Volume 9.7 fL Neutrophils (%) (Auto) 36.7 % Lymphocytes (%) (Auto) 48.2 % Monocytes (%) (Auto) 11.5 % Eosinophils (%) (Auto) 3.0 % Basophils (%) (Auto) 0.3 % Neutrophils # (Auto) 2.19 K/uL Lymphocytes # (Auto) 2.89 K/uL Monocytes # (Auto) 0.69 K/uL Eosinophils # (Auto) 0.18 K/uL Basophils # (Auto) 0.02 K/uL RDW Standard Deviation 47.4 fL RDW Coefficient of Variation 15.7 % Immature Granulocyte % (Auto) 0.3 % Immature Granulocyte # (Auto) 0.02 K/uL Sodium Level 139 mmol/L Potassium Level 3.9 mmol/L Chloride Level 106 mmol/L Carbon Dioxide Level 26 mmol/L Anion Gap 7.0 mmol/L Blood Urea Nitrogen 7 mg/dl Creatinine 0.78 mg/dl Est Creatinine Clear Calc Drug Dose 68.2 ml/min Estimated GFR () 97.8 Estimated GFR (Non- 84.4 BUN/Creatinine Ratio 8.9 Random Glucose 83 mg/dl Calcium Level 8.8 mg/dl Assessment & Plan RECURRENT SMALL BOWEL OBSTRUCTION Recently discharge about 2 days ago for SBO S/P Exploratory Laparotomy Release of Small Bowel Obstruction, Small Bowel Decompression, Enterolysis, esophagogastroduodenoscopy on 11/[address] done on admission showed markedly dilated, fluid-filled small bowel and stomach consistent with a moderate to high-grade small bowel obstruction with transition point likely within the pelvis. Continue NGT suction continue morphine for pain Stable removed today from the bowel surgery Continue NPO Continue IVF Surgery on board 12/21 Clinically improved Last KUB showed mildly dilated small bowel loops. Contrast within nondilated colon. NGT removed Tolerated low fiber diet D/C IVF D/C IV morphine Surgery on board Monitor electrolytes Has been walking in the hallway No BM in the last 2 days Will need to have a BM before discharging to rehab Case discussed with Surgery dr. Coello and OK from a surgical standpoint to discharge home. +Gastric Occult blood possible related to NGT trauma Hgb 9.5 today GI on board, no plan for EGD Last EGD w dilation done for dysphagia on 02/2017. On protonix 80 mg BID Continue monitor H/H Stable Constipation Last BM 2 days ago Continue Amitiza/Miralax and Senokot Electrolytes imbalance K and Mg stable Continue monitor electrolytes Hx of PSVT s/p ablation Continue Stable COPD stable Chronic pain on fentanyl patch On PO narcotic DVT PROPHYLAXIS SCDs CODE STATUS FULL CODE DISPOSITION Waiting for placement to discharge to [facility] Consultants: Gastro Surgery Current Inpatient Medications: Current Inpatient Medications Medications (Trade) Dose Ordered Sig/Jennifer Route Start Time Stop Time Status Last Admin Dose Admin Acetaminophen (Tylenol Tab) 650 mg Q4H PRN PO 12/16/17 06:00 01/15/18 05:59 Aripiprazole (Abilify Tab) 30 mg QAM PO 12/16/17 09:00 01/15/18 08:59 12/21/17 09:12 30 MG Baclofen (Lioresal Tab) 10 mg TID PO 12/16/17 14:00 01/15/18 13:59 12/21/17 09:10 10 MG Cetirizine HCl (zyrTEC TAB) 10 mg QAM PO 12/16/17 09:00 01/15/18 08:59 12/21/17 09:10 10 MG Cyclobenzaprine HCl (Flexeril Tab) 10 mg TID PRN PO 12/16/17 06:00 01/15/18 05:59 Dicyclomine HCl (Bentyl Cap) 10 mg BID PO 12/16/17 09:00 01/15/18 08:59 12/21/17 09:09 10 MG Famotidine (Pepcid Tab) 40 mg DAILY PO 12/16/17 09:00 01/15/18 08:59 12/21/17 09:14 40 MG Gabapentin (Neurontin Cap) 300 mg TID PO 12/16/17 14:00 01/15/18 13:59 12/21/17 09:13 300 MG Acetaminophen/ Hydrocodone Bitart (Adrian 10/325 Tab) 1 tab TID PRN PO 12/16/17 06:00 12/30/17 05:59 12/21/17 04:48 1 TAB Lamotrigine (Lamictal Tab) 25 mg BID PO 12/16/17 09:00 01/15/18 08:59 12/21/17 09:11 25 MG Lamotrigine (Lamictal Tab) 100 mg BID PO 12/16/17 09:00 01/15/18 08:59 12/21/17 09:13 100 MG Lorazepam (Ativan Tab) 1 mg BID PRN PO 12/16/17 06:00 01/15/18 05:59 12/19/17 14:47 1 MG Metoprolol Succinate (Toprol Xl Tab) 25 mg QAM PO 12/17/17 09:00 01/16/18 08:59 12/20/17 08:57 25 MG Montelukast Sodium (Singulair Tab) 10 mg HS PO 12/16/17 21:00 01/15/18 20:59 12/20/17 21:53 10 MG Multivitamins (Multivitamin Tab) 1 tab QAM PO 12/16/17 09:00 01/15/18 08:59 Multivitamins/ Minerals (Multivitamin W/ Minerals Tab) 1 tab DAILY PO 12/16/17 09:00 01/15/18 08:59 Buspirone HCl (Buspar Tab) 10 mg BID PO 12/16/17 09:00 01/15/18 08:59 12/21/17 09:10 10 MG Lubiprostone (Amitiza) 24 mcg BID PO 12/16/17 09:00 01/15/18 08:59 12/21/17 09:12 24 MCG Polyethylene (Miralax Powder Packet) 17 gm DAILY PRN PO 12/16/17 06:00 01/15/18 05:59 Prochlorperazine Edisylate 5 mg/ Syringe 5 ml @ 5 mls/min Q6H PRN IV 12/16/17 06:00 01/15/18 05:59 Ondansetron HCl (Zofran Inj) 4 mg Q6H PRN IV 12/16/17 06:00 01/15/18 05:59 Metoclopramide HCl (Reglan Inj) 10 mg Q6H PRN IV 12/16/17 06:00 01/15/18 05:59 Acetaminophen 650 mg/Empty Bag 65 ml @ 260 mls/hr Q6H PRN IV 12/16/17 06:00 01/15/18 05:59 12/21/17 10:51 260 MLS/HR Miscellaneous Information (Check Fentanyl Patch Placement) 1 ea QS N/A 12/16/17 16:00 01/15/18 15:59 12/21/17 08:00 1 EA Metoclopramide HCl (Reglan Inj) 5 mg Q6HWA IV. 12/16/17 09:00 01/15/18 08:59 12/21/17 05:55 5 MG Fentanyl (Duragesic Patch) 25 mcg Q3D@0900 TD 12/18/17 09:00 01/01/18 08:59 12/21/17 09:15 25 MCG Miscellaneous (Fentanyl Patch Remove & Waste) 1 ea Q3D@0859 N/A 12/18/17 08:59 01/17/18 08:58 12/21/17 09:29 1 EA Pantoprazole Sodium 80 mg/ Syringe 20 ml @ 4 mls/min BID IV 12/17/17 21:00 01/16/18 20:59 12/21/17 09:08 4 MLS/MIN Zolpidem Tartrate (Ambien Tab) 5 mg ONE PRN PO 12/18/17 19:15 01/17/18 19:14 Senna (Senokot Syrup) 8.8 mg BID PO 12/20/17 09:00 01/19/18 08:59 12/21/17 09:15 8.8 MG
[2017-12-21] MEDS ORDERED: POLYETHYLENE (MIRALAX) 17 GM PACK PO ONE (15:15)
[2017-12-21 15:29] VITALS: BP 94/60; PULSE 82; TEMP 36.9; O2SAT 94
--- NOTE | 2017-12-21 15:29 | Discharge Instructions ---
Discharge Instructions Date of Service Dec 21, 2017. Admission Reason for Admission: SBO Discharge Discharge Diagnosis / Problem: RECURRENT SMALL BOWEL OBSTRUCTION, CONSTIPATION Discharge Goals Goal(s): Decrease discomfort, Improve function, Improve disease control Activity Recommendations Activity Limitations: resume your previous activity ( TOLERATED) . Instructions / Follow-Up Instructions / Follow-Up Please schedule a follow up appointment with your primary care provider once discharge from [facility] Please Call to schedule follow up appointment with Dr. Coello between 1 to 2 weeks Please no heavy lifting or bending for the next 3-[address] or operate any machine while on narcotic Fall precaution Keep abdominal wall incision area clean Continue PT/OT Current Hospital Diet Patient's current hospital diet: Low Fiber Diet Discharge Diet Recommended Diet: Low Fiber Diet Laboratory Results Hemoglobin A1c Test 11/16/17 05:25 Range/Units Estimated Average Glucose 103 mg/dl Hemoglobin A1c 5.2 4.5-5.6 % Lipid Panel Test 12/08/17 08:20 Range/Units Triglycerides Level 86 0-150 mg/dl Medical Emergencies . Who to Call and When: Medical Emergencies: If at any time you feel your situation is an emergency, please call 911 immediately. . Non-Emergent Contact Non-Emergency issues call your: Primary Care Provider Call Non-Emergent contact if: your pain is not controlled, you have any medication questions . . "Provider Documentation" section prepared by Gage Miranda. . VTE Core Measure Inpt VTE Proph given/why not?: SCD's [place] Drug Monitoring Program Search Results: patient reviewed within database
--- NOTE | 2017-12-21 15:44 | Discharge Summary ---
Discharge Summary Date of Service Dec 22, 2017. Discharge Summary Admission Date: Dec 16, 2017 at 05:05 Discharge Disposition: Rehab Principal Diagnosis: RECURRENT SMALL BOWEL OBSTRUCTION Secondary Diagnoses/Problems: +Gastric Occult blood Hx of PSVT CONSTIPATION COPD Chronic pain Procedures: CT OF THE ABDOMEN AND PELVIS WITHOUT CONTRAST CLINICAL HISTORY: Small bowel obstruction. Recent exploratory laparotomy. Severe abdominal pain. COMPARISON STUDY: CT of the abdomen and posterior 17 2017 small bowel follow-through December 07, 2017 and abdominal series December 16, 2017. TECHNIQUE: Axial images of the abdomen and pelvis were obtained without IV contrast. Images were reviewed in the axial, sagittal, and coronal planes. A dose lowering technique was utilized adhering to the principles of ALARA. FINDINGS: Opacities within the lower lungs reflect atelectasis. There is no pneumatosis, free air or portal venous gas. Evaluation of the abdomen and pelvis is moderately compromised due to streak artifact from barium within the colon from previous small bowel follow-through. The stomach is markedly distended and fluid-filled. The majority of the small bowel is also markedly dilated and fluid-filled. Similar findings have been shown on multiple previous exams. The colon is decompressed the appendix is normal. The terminal ileum may be decompressed as well. There is feces within a small bowel loop within the pelvis which may reflect a transition point. Postoperative 5 within the spine are noted with several old fractures. These are unchanged. Skin portia from recent laparotomy are noted. There is no fluid collection to suggest an abscess. IMPRESSION: Markedly dilated, fluid-filled small bowel and stomach consistent with a moderate to high-grade small bowel obstruction with transition point likely within the pelvis. Evaluation moderately compromised due to streak artifact from contrast within the colon from previous small bowel follow-through. Electronically signed by: Chuck Buenrostro M.D. 12/16/2017 7:28 AM Dictated Date/Time: 12/16/2017 7:18 AM [~ rep ct add3]] KUB CLINICAL HISTORY: Small bowel obstruction COMPARISON STUDY: 12/16/2017 FINDINGS: Extensive postsurgical changes are visualized. There is contrast within nondilated colon. There are persistent mildly dilated small bowel loops. IMPRESSION: Mildly dilated small bowel loops. Contrast within nondilated colon. Electronically signed by: Sukhdev Crenshaw M.D. 12/18/2017 8:29 AM Dictated Date/Time: 12/18/2017 8:27 AM Consultations: Gastro Surgery Medication Reconciliation Continued Medications: Albuterol (Ventolin Hfa) 60 Puffs/5400 Mcg Aers 90 MCG INH PRN for Wheezing Aripiprazole (Abilify) 30 Mg Tab 30 MG PO QAM, TAB Baclofen (Lioresal) 10 Mg Tab 10 MG PO TID, TAB Buspirone Hcl (Buspirone Hcl) 10 Mg Tab 10 MG PO BID, #30 TAB Calcium Carbonate-Vitamin D (Oscal 500/200 D-3) 1 Tab Tab 1 TAB PO DAILY Cetirizine (Zyrtec) 10 Mg Tab 10 MG PO QAM, TAB Cyclobenzaprine Hcl (Flexeril) 10 Mg Tab 10 MG PO TID PRN for Muscle Spasms, TAB Dicyclomine HCl (Dicyclomine HCl) 20 Mg Tab 10 MG PO BID for 30 Days, #60 TAB Famotidine (Pepcid) 40 Mg Tab 40 MG PO DAILY, TAB Fentanyl (Duragesic) 25 Mcg/Hr Dis 25 MCG TD Q72H Formoterol Fumarate (Perforomist) 20 Mcg/2 Ml Nebu 20 MCG INH PRN for Wheezing Furosemide (Lasix) 20 Mg Tab 20 MG PO DAILY PRN for SWELLING, TAB Gabapentin (Neurontin) 300 Mg Cap 300 MG PO TID, CAP Lamotrigine (Lamictal) 25 Mg Tab 25 MG PO BID, TAB Lamotrigine (Lamictal) 100 Mg Tab 100 MG PO BID, TAB Lorazepam (Lorazepam) 1 Mg Tab 1 MG PO BID PRN for Anxiety for 30 Days, #60 TAB Lubiprostone (Amitiza) 24 Mcg Cap 24 MCG PO BID, CAP Metoclopramide Hcl (Reglan) 5 Mg Tab 5 MG PO ACHS, TAB Metoprolol Succinate (Toprol Xl) 25 Mg Tabcr 25 MG PO QAM, #30 TAB Montelukast Sodium (Singulair) 10 Mg Tab 10 MG PO HS, TAB Multivitamin (Multivitamin) Tab 1 TAB PO QAM, TAB Ocuvite Preservision (Ocuvite Preservision) 1 Tab Tab 1 TAB PO DAILY, TAB Ondansetron Hcl (Zofran) 8 Mg Tab 8 MG PO Q6H PRN for Nausea, TAB Polyethylene Glycol 3350 (Miralax) 1 Pow Pow 17 GM PO DAILY PRN for PRN, #255 GM Potassium Chloride (Micro-K Ext Rel) 10 Meq Capcr 10 MEQ PO DAILY PRN for PRN, CAP ONLY TAKES WHEN TAKING LASIX FOR SWELLING Discontinued Medications: Hydrocodone/Acetaminophen (Falls [place] Rough 10/325 Tab) 1 Tab Tab 1 TAB PO TID PRN for severe pain for 7 Days, #21 TAB Admission Information HPI (per Admitting provider): CHIEF COMPLAINT: Abdominal pain. HISTORY OF PRESENT ILLNESS: History obtained from patient and records. Medical history significant for chronic pain on Fentanyl patch, PSVT status post ablation, COPD, past tobacco/ETOH abuse, gastroparesis per records, HCV status post treatment, hx MRSA, chronic anemi ( baseline hemoglobin of 9). Recent confinement from 11/15/2017 to 12/13/2017 for small-bowel obstruction sp surgery 11/26/2017. UGIB (coffee ground NGT output) during recent confinement attributed by GI service to NGT insertion trauma. No endoscopies done. PPI recommended. Last night patient had generalized abdominal distention and pain described as burning, some nausea, no emesis, good bowel movement. No fever, no chills. Patient brought to the Emergency Room. CAT scan initial read showed distended stomach, markedly dilated small bowel loops with air fluid levels, small caliber distal terminal ileum visualized near the appendix in the rectal pelvis consistent with small-bowel obstruction, transition point right posterior abdomen. NGT inserted in the ER. Physical Exam (per Admitting): VITAL SIGNS: Blood pressure noted to be 120/79, pulse rate 110, RR 16, T 36.6, sats 99 on room air. GENERAL: Noted to be slightly uncomfortable, anxious, no respiratory distress. SKIN: Pallor. Warm. HEENT: Pale palpebral conjunctivae. No ptosis. Dry buccal mucosa . NGT in place NECK: Supple. IV access noted to be in the right neck. Nontender LUNGS: Decreased breath sounds. No chest wall tenderness. HEART: Tachycardic. No murmur. ABDOMEN: Some distention. Dressing on the anterior abdomen, nonspecific tenderness to light palpation. EXTREMITIES: No edema. No tenderness. No gross deformities. NEUROLOGIC: Coherent. No gross focality. Hospital Course RECURRENT SMALL BOWEL OBSTRUCTION Recently discharge about 2 days ago for SBO S/P Exploratory Laparotomy Release of Small Bowel Obstruction, Small Bowel Decompression, Enterolysis, esophagogastroduodenoscopy on 11/[address] done on admission showed markedly dilated, fluid-filled small bowel and stomach consistent with a moderate to high-grade small bowel obstruction with transition point likely within the pelvis. Continue NGT suction continue morphine for pain Stable removed today from the bowel surgery Continue NPO Continue IVF Surgery on board 2/ Clinically improved Last KUB showed mildly dilated small bowel loops. Contrast within nondilated colon. NGT removed Tolerated low fiber diet D/C IVF D/C IV morphine Surgery on board Monitor electrolytes Has been walking in the hallway No BM in the last 2 days Will need to have a BM before discharging to rehab Case discussed with Surgery dr. Coello and [place] from a surgical standpoint to discharge home. +Gastric Occult blood possible related to NGT trauma Hgb 9.5 today GI on board, no plan for EGD Last EGD w dilation done for dysphagia on 02/2017. On protonix 80 mg BID Continue monitor H/H Stable Constipation Last BM 2 days ago Continue Amitiza/Miralax and Senokot Electrolytes imbalance K and Mg stable Continue monitor electrolytes Hx of PSVT s/p ablation Continue Stable COPD stable Chronic pain on fentanyl patch On PO narcotic DVT PROPHYLAXIS SCDs CODE STATUS FULL CODE DISPOSITION Waiting for placement to discharge to [facility] Total time spent on discharge = 35 minutes This includes examination of the patient, discharge planning, medication reconciliation, and communication with other providers. Discharge Instructions Discharge Instructions Date of Service Dec 21, 2017. Admission Reason for Admission: SBO Discharge Discharge Diagnosis / Problem: RECURRENT SMALL BOWEL OBSTRUCTION, CONSTIPATION Discharge Goals Goal(s): Decrease discomfort, Improve function, Improve disease control Activity Recommendations Activity Limitations: resume your previous activity ( TOLERATED) . Instructions / Follow-Up Instructions / Follow-Up Please schedule a follow up appointment with your primary care provider once discharge from [facility] Please Call to schedule follow up appointment with Dr. Coello between 1 to 2 weeks Please no heavy lifting or bending for the next 3-[address] or operate any machine while on narcotic Fall precaution Keep abdominal wall incision area clean Continue PT/OT Current Hospital Diet Patient's current hospital diet: Low Fiber Diet Discharge Diet Recommended Diet: Low Fiber Diet Laboratory Results Hemoglobin A1c Test 11/16/17 05:25 Range/Units Estimated Average Glucose 103 mg/dl Hemoglobin A1c 5.2 4.5-5.6 % Lipid Panel Test 12/08/17 08:20 Range/Units Triglycerides Level 86 0-150 mg/dl Medical Emergencies . Who to Call and When: Medical Emergencies: If at any time you feel your situation is an emergency, please call 911 immediately. . Non-Emergent Contact Non-Emergency issues call your: Primary Care Provider Call Non-Emergent contact if: your pain is not controlled, you have any medication questions . . "Provider Documentation" section prepared by Gage Miranda. . VTE Core Measure Inpt VTE Proph given/why not?: SCD's Additional Copies To Jerome Murillo M.D. [facility]
[2017-12-21] MEDS ORDERED: FENT25DI10 TD (18:02)
[2017-12-21] MEDS: MONTELUKAST SOD 10 MG TAB PO SCH (21:36)
[2017-12-21 21:52] VITALS: BP 99/65
[2017-12-21 23:30] VITALS: BP 94/62; PULSE 81; TEMP 36.3; O2SAT 96
[2017-12-22] MEDS: CHECK FENTANYL PATCH PLACEMENT SCH ×2 (00:45→08:00)
[2017-12-22] MEDS: METOCLOPRAMIDE HCL INJ 5 MG/ML 2 ML VIAL IV. SCH ×3 (00:45→12:00)
[2017-12-22] MEDS: HYDROCODONE/ACETAMI 10/325 TAB PO PRN ×2 (02:20→10:03)
[2017-12-22 07:10] VITALS: BP 94/59; PULSE 97; TEMP 36.6; O2SAT 93
--- NOTE | 2017-12-22 07:47 | Surgery Progress Note ---
Surgery Progress Note Date of Service Dec 22, 2017. Subjective + feeling well, + diet (low residue), No bowel movement (for a few days), No nausea Objective Vital Signs: Date Time Temp Pulse Resp B/P (MAP) Pulse Ox O2 Delivery O2 Flow Rate FiO2 12/22/17 00:40 Room Air 12/21/17 23:30 36.3 81 15 94/62 (73) 96 Room Air 12/21/17 21:52 99/65 (76) 12/21/17 15:50 Room Air 12/21/17 15:29 36.9 82 18 94/60 (71) 94 Room Air 12/21/17 09:14 96 Room Air 12/21/17 08:00 Room Air 12/21/17 08:00 36.7 68 14 109/73 (85) 96 Room Air Abdomen: non distended, soft Laboratory Results: Results Past 24 Hours Test 12/22/17 04:44 Range/Units Assessment & Plan s/p ex lap FRANKIE gastroparesis planning for d/c to [facility] follow-up with Dr. Coello in approx 2 weeks
[2017-12-22 08:52] LABS: CALCIUM 8.8 mg/dl (8.5-10.1); CREATININE 0.75 mg/dl (0.60-1.20); POTASSIUM 3.9 mmol/L (3.5-5.1)
[2017-12-22] MEDS: SENNA 8.8 MG/5 ML UDP PO SCH (09:00)
[2017-12-22] MEDS: MULTIVITAMIN TAB PO SCH (09:00)
[2017-12-22] MEDS: METOPROLOL SUCC 25MG EXT REL TAB PO SCH (09:00)
[2017-12-22] MEDS: CEROVITE ADV FORMULA TAB PO SCH (09:00)
[2017-12-22] MEDS: PANTOprazole INJ 80 MG in SYRINGE 0 ML IV SCH (09:00)
--- NOTE | 2017-12-22 09:13 | Progress Note ---
Internal Med Progress Note Date of Service: Dec 22, 2017. Provider Documentation: SUBJECTIVE: No acute distress. Patient finished the breakfast OBJECTIVE: Exam: General- no acute distress Eyes- EOMI Neck- trachea midline, no JVD Lungs- CTABL, no wheezing Heart- RRR Abdomen-soft, nontender, + bowel sounds Extremities- no edema Neuro- awake and alert ASSESSMENT & PLAN: RECURRENT SMALL BOWEL OBSTRUCTION S/P Exploratory Laparotomy Release of Small Bowel Obstruction, Small Bowel Decompression, Enterolysis, esophagogastroduodenoscopy on 11/[address] done on admission showed markedly dilated, fluid-filled small bowel and stomach consistent with a moderate to high-grade small bowel obstruction with transition point likely within the pelvis. 12/21/17: KUB showed mildly dilated small bowel loops. Contrast within nondilated colon. NGT removed, Tolerated low fiber diet 12/22/17: as per surgery consultation: follow-up with Dr. Coello in approx 2 weeks positive Gastric Occult blood; possibly related to NGT trauma, anemia stable Last EGD w dilation done for dysphagia on 02/2017, GI consultation 12/17/17: No indication to repeat EGD at this time. Suspect NGT trauma causing some bleeding On protonix Constipation Continue Amitiza/Miralax and Senokot Hx of PSVT s/p ablation COPD stable Chronic pain on fentanyl patch, on PO narcotic [facility]: [facility] As per surgery consultation: follow-up with Dr. Coello in approx 2 weeks Follow up with primary care doctor Jerome Murillo MD [phone] [facility] Vital Signs: Date Time Temp Pulse Resp B/P (MAP) Pulse Ox O2 Delivery O2 Flow Rate FiO2 12/22/17 07:10 36.6 97 16 94/59 (71) 93 Room Air 12/22/17 00:40 Room Air 12/21/17 23:30 36.3 81 15 94/62 (73) 96 Room Air 12/21/17 21:52 99/65 (76) 12/21/17 15:50 Room Air 12/21/17 15:29 36.9 82 18 94/60 (71) 94 Room Air Lab Results: Results Past 24 Hours Test 12/22/17 08:01 Range/Units Sodium Level 137 136-145 mmol/L Potassium Level 3.9 3.5-5.1 mmol/L Chloride Level 104 98-107 mmol/L Carbon Dioxide Level 25 21-32 mmol/L Anion Gap 8.0 3-11 mmol/L Blood Urea Nitrogen 8 7-18 mg/dl Creatinine 0.75 0.60-1.20 mg/dl Est Creatinine Clear Calc Drug Dose 71.0 ml/min Estimated GFR () 102.6 Estimated GFR (Non- 88.5 BUN/Creatinine Ratio 10.9 10-20 Random Glucose 89 70-99 mg/dl Calcium Level 8.8 8.5-10.1 mg/dl
[2017-12-22] MEDS ORDERED: POLYETHYLENE (MIRALAX) 17 GM PACK PO SCH (09:45)
[2017-12-22] MEDS: CETIRIZINE HCL 10 MG TAB PO SCH (10:03)
[2017-12-22] MEDS: FAMOTIDINE 20 MG TAB PO SCH (10:05)
[2017-12-22] MEDS: LUBIPROSTONE 8 MCG CAP PO SCH (10:06)
[2017-12-22] MEDS: ARIPIprazole TAB 15 MG TAB PO SCH (10:06)
[2017-12-22] MEDS: GABAPENTIN 300 MG CAP PO SCH (10:07)
[2017-12-22] MEDS: DICYCLOMINE HCL 10 MG CAP PO SCH (10:10)
[2017-12-22] MEDS: BACLOFEN 10 MG TAB PO SCH (10:10)
[2017-12-22 12:22] VITALS: BP 94/59; PULSE 97; TEMP 36.6; O2SAT 93
== END 2017-12-22 12:50 | DRG 389 ==
LOC: C.EDB 23:49 → C.MSN 12-16 05:05 → EDBEDREQ 12-16 05:07 → ENRESERV 12-16 05:12
PROVIDERS: ADMIT Internal Medicine; ATTEND Hospitalist
DX: K56.690 Other partial intestinal obstruction (principal); I47.1 Supraventricular tachycardia; K92.2 Gastrointestinal hemorrhage, unspecified; K31.84 Gastroparesis; K59.00 Constipation, unspecified; E87.6 Hypokalemia; F32.9 Major depressive disorder, single episode, unspecified; J44.9 Chronic obstructive pulmonary disease, unspecified; D64.9 Anemia, unspecified; I10 Essential (primary) hypertension; G89.29 Other chronic pain; Z79.899 Other long term (current) drug therapy; Z87.891 Personal history of nicotine dependence; Z88.1 Allergy status to other antibiotic agents; Z88.8 Allergy status to other drugs, medicaments and biological substances

== ENCOUNTER 2018-01-04 18:46 | Inpatient (IN) | payer OTHER ==
[~2018-01-04] VITALS: Ht 157.5 cm; Wt 61.1 kg
[~2018-01-04 18:46] MED LIST changes: -HYDR-4383 PO; +LAMO100T16 PO; -LAMO150T PO; +LAMO25TA PO; -METO25TA3 PO; +METO25TA4 PO; -PRFINS INH; +PRFINS NEB
[2018-01-04] MEDS ORDERED: DICY10CA12 PO (22:23)
[2018-01-04] MEDS ORDERED: ONDANSETRON INJ 2 MG/ML 2 ML VIAL IV STA (22:23)
[2018-01-04] MEDS ORDERED: ZFRODT/8 SL (22:23)
[2018-01-04] MEDS ORDERED: FNTTP25 TOP (22:23)
[2018-01-04] MEDS ORDERED: FAMO40TA6 PO (22:23)
[2018-01-04] MEDS ORDERED: HYDROmorphone INJ 1 MG/ML SYR IV STA (22:23)
[2018-01-04] MEDS ORDERED: LRS10 PO (22:23)
[2018-01-04] MEDS ORDERED: SODIUM CHLORIDE 0.9% 1000ML 1,000 ML IV STA (22:23)
[2018-01-04] MEDS ORDERED: ATV1 PO (22:23)
--- NOTE | 2018-01-04 22:28 | EMERGENCY ROOM VISIT NOTE ---
History Report prepared by Tonya: Juan Miguel Mack Under the Supervision of: Dr. Lillie Lucero M.D. First contact with patient: 22:04 Chief Complaint: ABDOMINAL PAIN Stated Complaint: ABD PAIN,NAUSEA Nursing Triage Summary: hx of sbo dced last thursday from [facility]. had 2 bms today now c/o abd pain. History of Present Illness The patient is a 57 year old female who presents to the Emergency Room with complaints of constant, moderate, abdominal pain beginning 6.5 hours ago. The patient states she thinks her abdomen is distended. She reports she has had two bowel movements today. The patient notes they were formed and did not have blood in them. She states she is hesitant to urinate, but she is able to. The patient reports she was discharged from the hospital a week ago. She notes she is also mildly nauseous. The patient states she currently has a fentanyl patch on, and she takes hydrocodone. She reports her patch is to be changed tomorrow, and she has a new one at home. The patient notes her last dose of hydrocodone was 10.5 hours ago. She denies vomiting, trouble drinking fluids, fevers, and trouble urinating. Review of EMR shows the patient has a history of SBO. Source of History: patient Onset: 6.5 hours ago Position: abdomen Symptom Intensity: moderate Timing: constant Associated Symptoms: + nausea (mildly), No fevers, No vomiting Note: Associated symptoms: hesitancy with urinating but still able to Denies: trouble drinking fluids Review of Systems See HPI for pertinent positives & negatives. A total of 10 systems reviewed and were otherwise negative. Past Medical & Surgical Medical Problems: (1) Abscess of right hip (2) Anxiety (3) Bipolar disorder (4) Bipolar Disorder, Unspecified (5) Cervicalgia (6) Chronic alcoholism in remission (7) Chronic back pain (8) Chronic headache (9) Chronic hepatitis C (10) Chronic obstructive lung disease (11) Chronic urinary urge incontinence (12) Closed head injury (13) Depression (14) Gastroesophageal reflux disease (15) Gastroparesis (16) History of aspiration pneumonia (17) History of Clostridium difficile colitis (18) History of drug abuse (19) History of sepsis (20) History of supraventricular tachycardia (21) Incisional abscess (22) Lumbago (23) Osteoarthritis (24) Osteoarthritis of hip (25) Osteoporosis (26) Pancreatitis (27) PTSD (post-traumatic stress disorder) (28) SBO (small bowel obstruction) (29) seroma Right hip (30) Small bowel obstruction (31) SVT (supraventricular tachycardia) (32) Ulnar neuropathy Surgical Problems: (1) Bladder Repair (2) H/O colonoscopy (3) H/O cystoscopy (4) H/O esophagogastroduodenoscopy (5) H/O sinus surgery (6) History of hip surgery (7) Right Tibia/Fibula Repair (8) S/P cervical spinal fusion (9) s/p colonoscopy (10) s/p cystoscopy (11) s/p EGD (12) S/p esophagogastric fundoplasty (13) s/p laparoscopic fundoplication hiatal hernia (14) S/p lumbar decompression/fusion (15) S/P ORIF (open reduction internal fixation) fracture (16) s/p reconstruction hip socket (17) s/p tonsillectomy (18) S/P tonsillectomy and adenoidectomy (19) s/p tubal ligation (20) S/P tubal ligation Family History Diabetes mellitus FATHER GRANDMOTHER FH: colon cancer GRANDMOTHER Gallbladder disease Heart disease Hypertension FATHER MOTHER Kidney disease Kidney stones Social History Smoking Status: Never Smoker Alcohol Use: none Drug Use: none, other Marital Status: Housing Status: lives with family Occupation Status: disabled Current/Historical Medications Scheduled Aripiprazole (Abilify), 30 MG PO QAM Baclofen (Baclofen), 10 MG PO TID Buspirone Hcl (Buspirone Hcl), 10 MG PO BID Calcium Carbonate-Vitamin D (Oscal 500/200 D-3), 1 TAB PO DAILY Cetirizine (Zyrtec), 10 MG PO QAM Dicyclomine Hcl (Dicyclomine Hcl), 10 MG PO BID Famotidine (Pepcid), 40 MG PO DAILY Fentanyl (Fentanyl), 25 MCG TOP CQ72HR Gabapentin (Neurontin), 300 MG PO TID Lamotrigine (Lamictal), 25 MG PO BID Lamotrigine (Lamictal), 100 MG PO BID Lubiprostone (Amitiza), 24 MCG PO BID Metoclopramide Hcl (Reglan), 5 MG PO ACHS Metoprolol Succinate (Toprol Xl), 25 MG PO QAM Montelukast Sodium (Singulair), 10 MG PO HS Multivitamin (Multivitamin), 1 TAB PO QAM Ocuvite Preservision (Ocuvite Preservision), 1 TAB PO DAILY Scheduled PRN Albuterol (Ventolin Hfa), 2 PUFFS INH UD PRN for Wheezing Cyclobenzaprine Hcl (Flexeril), 10 MG PO TID PRN for Muscle Spasm Formoterol Fumarate (Perforomist), 20 MCG NEB UD PRN for Wheezing Furosemide (Lasix), 20 MG PO DAILY PRN for SWELLING Lorazepam (Lorazepam), 1 MG PO BID PRN for Anxiety Ondansetron (Ondansetron Odt), 8 MG SL Q8 PRN for Nausea Polyethylene Glycol 3350 (Miralax), 17 GM PO DAILY PRN for Constipation Potassium Chloride (Micro-K Ext Rel), 10 MEQ PO DAILY PRN for Take When Lasix is Taken Allergies Coded Allergies: Hydroxyzine (Verified Allergy, Severe, THROAT CONSTRICTS/CAN NOT VOID, ) Clarithromycin (Verified Adverse Reaction, Intermediate, vomiting, 12/16/17 ) Lisinopril (Verified Adverse Reaction, Mild, Cough, 12/16/17) Reported by PT. Chlorpromazine (Verified Adverse Reaction, Unknown, LIGHTHEADED DIZZY, ) Physical Exam Vital Signs Date Time Temp Pulse Resp B/P (MAP) Pulse Ox O2 Delivery O2 Flow Rate FiO2 01/05/18 00:30 107 18 138/92 Room Air 01/05/18 00:03 119 01/05/18 00:01 135/86 97 01/04/18 22:01 115 16 146/98 98 Room Air 01/04/18 19:13 36.6 106 20 121/80 98 Room Air Physical Exam Vital signs reviewed. General: Chronically ill-appearing 57 year old female, in mild distress. Moaning. HEENT: No scleral icterus, PERRLA, neck supple. Atraumatic. Cardiovascular: Regular rate and rhythm, no extra sounds. Pulmonary: Clear to auscultation bilaterally, normal work of breathing. Abdomen: Soft, nontender, distended, positive bowel sounds and tympany. Musculoskeletal: Atraumatic, no peripheral edema. Neurologic: Patient awake alert and oriented x 3 Skin: Warm, dry, no rash Medical Decision & Procedures ER Provider Diagnostic Interpretation: X-ray results as stated below per interpretation by me and the radiologist: Abdominal x ray series: No focal lung consolidation. No failure. No free are in the abdomen. Distended loops of bowel. Air fluid levels are consisted with SBO with significant orthopedic hardware appreciated Laboratory Results 01/04/18 23:48 Red Blood Count 4.13, Mean Corpuscular Volume 77.5, Mean Corpuscular Hemoglobin 24.5, Mean Corpuscular Hemoglobin Concent 31.6, Mean Platelet Volume 8.4, Neutrophils (%) (Auto) 88.1, Lymphocytes (%) (Auto) 5.9, Monocytes (%) (Auto) 5.5, Eosinophils (%) (Auto) 0.0, Basophils (%) (Auto) 0.2, Neutrophils # (Auto) 9.28, Lymphocytes # (Auto) 0.62, Monocytes # (Auto) 0.58, Eosinophils # (Auto) 0.00, Basophils # (Auto) 0.02 Test 01/04/18 23:48 White Blood Count 10.53 K/uL (4.8-10.8) Red Blood Count 4.13 M/uL (4.2-5.4) Hemoglobin 10.1 g/dL (12.0-16.0) Hematocrit 32.0 % (37-47) Mean Corpuscular Volume 77.5 fL (80-100) Mean Corpuscular Hemoglobin 24.5 pg (25-34) Mean Corpuscular Hemoglobin Concent 31.6 g/dl (32-36) Platelet Count 477 K/uL (130-400) Mean Platelet Volume 8.4 fL (7.4-10.4) Neutrophils (%) (Auto) 88.1 % Lymphocytes (%) (Auto) 5.9 % Monocytes (%) (Auto) 5.5 % Eosinophils (%) (Auto) 0.0 % Basophils (%) (Auto) 0.2 % Neutrophils # (Auto) 9.28 K/uL (1.4-6.5) Lymphocytes # (Auto) 0.62 K/uL (1.2-3.4) Monocytes # (Auto) 0.58 K/uL (0.11-0.59) Eosinophils # (Auto) 0.00 K/uL (0-0.5) Basophils # (Auto) 0.02 K/uL (0-0.2) RDW Standard Deviation 45.2 fL (36.4-46.3) RDW Coefficient of Variation 15.9 % (11.5-14.5) Immature Granulocyte % (Auto) 0.3 % Immature Granulocyte # (Auto) 0.03 K/uL (0.00-0.02) Magnesium Level 2.2 mg/dl (1.8-2.4) Total Bilirubin 0.4 mg/dl (0.2-1) Direct Bilirubin 0.1 mg/dl (0-0.2) Aspartate Amino Transf (AST/SGOT) 9 U/L (15-37) Alanine Aminotransferase (ALT/SGPT) 11 U/L (12-78) Alkaline Phosphatase 87 U/L (45-117) Total Protein 8.4 gm/dl (6.4-8.2) Albumin 3.4 gm/dl (3.4-5.0) Lipase 322 U/L (73-393) Laboratory results per my review. Medications Administered Medications (Trade) Dose Ordered Sig/Jennifer Route Start Time Stop Time Status Last Admin Dose Admin Ondansetron HCl (Zofran Inj) 4 mg NOW STAT IV 01/04/18 22:23 01/04/18 22:26 DC 01/04/18 23:51 4 MG Hydromorphone HCl (Dilaudid Inj) 1 mg NOW STAT IV 01/04/18 22:23 01/04/18 22:26 DC 01/04/18 23:51 1 MG Sodium Chloride 1,000 ml @ 125 mls/hr Q8H STAT IV 01/04/18 22:23 01/05/18 02:25 DC 01/05/18 00:01 125 MLS/HR Potassium Chloride 10 meq/ Prmx 100 ml @ 100 mls/hr Q1H IV 01/05/18 01:00 01/05/18 02:59 DC 01/05/18 01:07 100 MLS/HR ED Course 2223: Past medical records reviewed. The patient was evaluated in room A11B. A complete history and physical examination was performed. Ordered Sodium Chloride 1000 ml @ 125 mls/hr IV, Hydromorphone HCl 1mg IV, Ondansetron HCl 4mg IV 2348: Upon reevaluation, the patient is resting comfortably, and I placed the patient's IV. I discussed laboratory and radiographic results with her. She verbalized agreement of the treatment plan. The patient will be evaluated for further management and care. 0050: I discussed the patient's case with Wilmer Andrews. The patient will be evaluated for further management and care. 0100: Ordered Potassium Chloride 10 meq/Prmx 100ml @ 100 mls/hr IV Medical Decision Differential diagnosis: Etiologies such as appendicitis, diverticulitis, PUD, biliary pathology, UTI, pancreatitis, small bowel obstruction, mesenteric ischemia, aortic pathology, infections, inflammatory bowel disease, renal colic, as well as others were entertained. This patient was evaluated and appeared to be in no significant distress. Patient is complaining of pain to the abdomen, the abdomen is distended. Patient has had multiple bowel obstructions in the past. X-ray shoes was performed. A reveals evidence of obstructive pathology. NG tube was placed to low intermittent wall suction. The patient was hydrated with normal saline solution after and EJ was placed in the left neck by me. She was given 1 mg of IV Dilaudid and 4 mg of IV Zofran. She is found to be hypokalemic and was medicated with 20 mEq of IV potassium. Patient's case was discussed with Dr. Myesha Pineda of the hospitalist service who knows the patient well. He will evaluate the patient for further management. Medication Reconcilliation Current Medication List: was personally reviewed by me Blood Pressure Screening Patient's blood pressure: Elevated blood pressure Monitored by hospitalist. Consults Time Called: 46 Consulting Physician: Wilmer Andrews Returned Call: 49 I discussed the patient's case with Wilmer Andrews. The patient will be evaluated for further management and care. Impression Primary Impression: Small bowel obstruction Scribe Attestation The scribe's documentation has been prepared under my direction and personally reviewed by me in its entirety. I confirm that the note above accurately reflects all work, treatment, procedures, and medical decision making performed by me. Departure Information Dispostion Being Evaluated By Hospitalist Referrals Jerome Murillo M.D. (PCP) Patient Instructions My [facility]
[2018-01-04] MEDS ORDERED: BUSP-8 PO (22:35)
[2018-01-04 23:57] LABS: BASO % 0.2 %; BASO ABS # 0.02 K/uL (0-0.2); HEMOGLOBIN 10.1 g/dL (12.0-16.0); IG# 0.03 K/uL (0.00-0.02); LYMPH % 5.9 %; LYMPH ABS # 0.62 K/uL (1.2-3.4); MEAN CELL VOLUME 77.5 fL (80-100); MEAN CORPUSCULAR HEMOGLOBIN 24.5 pg (25-34); MEAN CORPUSCULAR HGB CONC 31.6 g/dl (32-36); MEAN PLATELET VOLUME 8.4 fL (7.4-10.4); MONO % 5.5 %; MONO ABS # 0.58 K/uL (0.11-0.59); NEUT % 88.1 %; NEUT ABS # 9.28 K/uL (1.4-6.5); PLATELET COUNT 477 K/uL (130-400); RED CELL DISTRIBUTION WIDTH CV 15.9 % (11.5-14.5); RED CELL DISTRIBUTION WIDTH SD 45.2 fL (36.4-46.3); WHITE BLOOD COUNT 10.53 K/uL (4.8-10.8)
[2018-01-05 00:18] LABS: ALBUMIN 3.4 gm/dl (3.4-5.0); ALT/SGPT 11 U/L (12-78); BLOOD UREA NITROGEN 14 mg/dl (7-18); CALCIUM 10.3 mg/dl (8.5-10.1); CARBON DIOXIDE 26 mmol/L (21-32); GLUCOSE 128 mg/dl (70-99); LIPASE 322 U/L (73-393); POTASSIUM 3.2 mmol/L (3.5-5.1); SODIUM 137 mmol/L (136-145)
[2018-01-05 00:21] LABS: ALKALINE PHOSPHATASE 87 U/L (45-117); AST/SGOT 9 U/L (15-37); TOTAL PROTEIN 8.4 gm/dl (6.4-8.2)
[2018-01-05] MEDS ORDERED: POTASSIUM CHLORIDE 10 MEQ / 100ML WTR IV STA (00:43)
[2018-01-05] MEDS: POTASSIUM CHLR 10MEQ / WTR IV SCH ×2 (01:06→01:07)
[2018-01-05] MEDS ORDERED: GABAPENTIN 300 MG CAP PO STA (01:45)
[2018-01-05] MEDS ORDERED: ACETAMINOPHEN 325 MG TAB PO PRN (01:45)
[2018-01-05] MEDS ORDERED: PANTOprazole INJ 40 MG in SYRINGE 0 ML IV STA (01:45)
[2018-01-05] MEDS ORDERED: MoRPHine SULFATE 2 MG/ML CARP IV PRN (01:45)
[2018-01-05] MEDS ORDERED: DICYCLOMINE HCL 10 MG CAP PO STA (01:45)
[2018-01-05] MEDS ORDERED: ONDANSETRON INJ 2 MG/ML 2 ML VIAL IV PRN (01:45)
[2018-01-05] MEDS ORDERED: METOCLOPRAMIDE HCL INJ 5 MG/ML 2 ML VIAL IV PRN (02:15)
[2018-01-05] MEDS ORDERED: CYCLOBENZAPRINE HCL 10 MG TAB PO PRN (02:15)
[2018-01-05] MEDS ORDERED: POLYETHYLENE (MIRALAX) 17 GM PACK PO PRN (02:15)
[2018-01-05] MEDS ORDERED: POTASSIUM CHLORIDE 10 MEQ TABCR PO STA (02:17)
[2018-01-05] MEDS ORDERED: NSS + 20MEQ KCL 1000ML 1,000 ML IV SCH (02:30)
[2018-01-05 02:34] VITALS: BP 153/102; PULSE 110; TEMP 36; O2SAT 95; Ht 157.5 cm; Wt 61.1 kg
[2018-01-05] MEDS ORDERED: HYDROmorphone INJ 0.5 MG/0.5 ML SYR IV PRN (03:00)
[2018-01-05] MEDS ORDERED: METOPROLOL SUCC 25MG EXT REL TAB PO STA (03:58)
[2018-01-05] MEDS ORDERED: OPTIRAY 320 IV PRN (04:00)
[2018-01-05 06:25] LABS: CALCIUM 9.3 mg/dl (8.5-10.1); CREATININE 0.46 mg/dl (0.60-1.20); POTASSIUM 3.9 mmol/L (3.5-5.1)
--- NOTE | 2018-01-05 07:20 | DIAGNOSTIC IMAGING REPORT ---
ABDOMEN 2VIEW W/PA CHEST RTN CLINICAL HISTORY: Small bowel obstruction COMPARISON STUDY: 12/16/2017 FINDINGS: There is mild elevation left hemidiaphragm. Left basilar opacities are likely atelectatic. There is no free air. Erect and supine views the abdomen reveal dilated small bowel loops measuring up to 69 mm diameter. There are multiple air-fluid levels. There is fluid within a distended stomach. The colon is decompressed. The findings are consistent with a small bowel obstruction. There are extensive postsurgical changes present within the lumbar spine right hip and right hemipelvis. The right lumbar spinal gia is fractured. There is lucency surrounding the prosthetic right femoral neck. This could indicate loosening. IMPRESSION: Small bowel obstructive pattern Electronically signed by: Sukhdev Crenshaw M.D. 01/05/2018 7:19 AM Dictated Date/Time: 01/05/2018 7:17 AM
--- NOTE | 2018-01-05 07:24 | Surgery Consultation ---
Consultation Date of Consultation: Jan 05, 2018. Attending Physician: Michael Ndiaye M.D. Reason for Consultation: small bowel obstruction History of Present Illness Patient is a 57F who presented to the ED yesterday evening due to abdominal pain and bloating which started yesterday evening around 1700. States she ate shortly before this. Reports she did feel somewhat nauseated as well but denies any vomiting. She did have two BM yesterday which she feels were normal for her. Denies blood in her stool. She has been urinating without difficulty. Denies fever, chills or recent illness. Patient does have a history of multiple bowel obstructions in the past. She was recently hospitalized in October and then again in November for SBO. She has an extensive surgical history and recently underwent Exploratory Laparotomy Release of Small Bowel Obstruction, Small Bowel Decompression, Enterolysis, esophagogastroduodenoscopy with Dr. Coello on 11/26/17. She does use a fentanyl patch and takes hydrocodone on a regular basis which she feels could be contributing to these obstructions. CT abd/pelvis shows evidence of a high-grade SBO. Reports her abdomen felt hard and distended prior to NGT placement, but now it is more soft. Past Medical/Surgical History Medical Problems: (1) Abdominal pain Status: Acute (2) Acute bronchitis Status: Acute (3) Anemia Status: Acute (4) Anxiety Status: Chronic (5) Bipolar disorder Status: Chronic (6) Cellulitis Status: Acute (7) Cervicalgia Status: Chronic (8) Fever Status: Acute (9) Hip pain Status: Acute (10) Hyponatremia Status: Acute (11) Infected finger Status: Acute (12) Influenza-like symptoms Status: Acute (13) Intertrochanteric fracture of right hip Status: Acute (14) Left leg swelling Status: Acute (15) Leg pain, right Status: Acute (16) Leg pain, right Status: Acute (17) Lumbago Status: Chronic (18) Nausea Status: Acute (19) Postoperative wound infection of right hip Status: Acute (20) PTSD (post-traumatic stress disorder) Status: Chronic (21) Right hip pain Status: Acute (22) Sciatic leg pain Status: Acute (23) Subcapital fracture of right hip Status: Acute Family History Diabetes mellitus FATHER GRANDMOTHER FH: colon cancer GRANDMOTHER Gallbladder disease Heart disease Hypertension FATHER MOTHER Kidney disease Kidney stones Social History Smoking Status: Former Smoker Drug Use: none, other Marital Status: Housing Status: lives with family Occupation Status: disabled Allergies Coded Allergies: Hydroxyzine (Verified Allergy, Severe, THROAT CONSTRICTS/CAN NOT VOID, ) Clarithromycin (Verified Adverse Reaction, Intermediate, vomiting, 12/16/17 ) Lisinopril (Verified Adverse Reaction, Mild, Cough, 12/16/17) Reported by PT. Chlorpromazine (Verified Adverse Reaction, Unknown, LIGHTHEADED DIZZY, ) Home Medications Scheduled Aripiprazole (Abilify), 30 MG PO QAM Baclofen (Baclofen), 10 MG PO TID Buspirone Hcl (Buspirone Hcl), 10 MG PO BID Calcium Carbonate-Vitamin D (Oscal 500/200 D-3), 1 TAB PO DAILY Cetirizine (Zyrtec), 10 MG PO QAM Dicyclomine Hcl (Dicyclomine Hcl), 10 MG PO BID Famotidine (Pepcid), 40 MG PO DAILY Fentanyl (Fentanyl), 25 MCG TOP CQ72HR Gabapentin (Neurontin), 300 MG PO TID Lamotrigine (Lamictal), 25 MG PO BID Lamotrigine (Lamictal), 100 MG PO BID Lubiprostone (Amitiza), 24 MCG PO BID Metoclopramide Hcl (Reglan), 5 MG PO ACHS Metoprolol Succinate (Toprol Xl), 25 MG PO QAM Montelukast Sodium (Singulair), 10 MG PO HS Multivitamin (Multivitamin), 1 TAB PO QAM Ocuvite Preservision (Ocuvite Preservision), 1 TAB PO DAILY Scheduled PRN Albuterol (Ventolin Hfa), 2 PUFFS INH UD PRN for Wheezing Cyclobenzaprine Hcl (Flexeril), 10 MG PO TID PRN for Muscle Spasm Formoterol Fumarate (Perforomist), 20 MCG NEB UD PRN for Wheezing Furosemide (Lasix), 20 MG PO DAILY PRN for SWELLING Lorazepam (Lorazepam), 1 MG PO BID PRN for Anxiety Ondansetron (Ondansetron Odt), 8 MG SL Q8 PRN for Nausea Polyethylene Glycol 3350 (Miralax), 17 GM PO DAILY PRN for Constipation Potassium Chloride (Micro-K Ext Rel), 10 MEQ PO DAILY PRN for Take When Lasix is Taken Current Inpatient Medications Current Inpatient Medications Medications (Trade) Dose Ordered Sig/Jennifer Route Start Time Stop Time Status Last Admin Dose Admin Baclofen (Lioresal Tab) 10 mg TID PO 01/05/18 09:00 02/04/18 08:59 Dicyclomine HCl (Bentyl Cap) 10 mg BID PO 01/05/18 09:00 02/04/18 08:59 Gabapentin (Neurontin Cap) 300 mg TID PO 01/05/18 09:00 02/04/18 08:59 Tramadol HCl (Ultram Tab) 25 mg Q6H PRN PO 01/05/18 01:45 02/04/18 01:44 Acetaminophen 650 mg/Empty Bag 65 ml @ 260 mls/hr Q6H PRN IV 01/05/18 01:45 02/04/18 01:44 Acetaminophen (Tylenol Tab) 325 mg Q6H PRN PO 01/05/18 01:45 02/04/18 01:44 Ondansetron HCl (Zofran Inj) 4 mg Q6H PRN IV 01/05/18 01:45 02/04/18 01:44 Aripiprazole (Abilify Tab) 30 mg QAM PO 01/05/18 09:00 02/04/18 08:59 Cetirizine HCl (zyrTEC TAB) 10 mg QAM PO 01/05/18 09:00 02/04/18 08:59 Cyclobenzaprine HCl (Flexeril Tab) 10 mg TID PRN PO 01/05/18 02:15 02/04/18 02:14 Famotidine (Pepcid Tab) 40 mg DAILY PO 01/05/18 09:00 02/04/18 08:59 Fentanyl (Duragesic Patch) 25 mcg Q72H TD 01/05/18 09:00 01/19/18 08:59 Lamotrigine (Lamictal Tab) 25 mg BID PO 01/05/18 09:00 02/04/18 08:59 Lamotrigine (Lamictal Tab) 100 mg BID PO 01/05/18 09:00 02/04/18 08:59 Lorazepam (Ativan Tab) 1 mg BID PRN PO 01/05/18 02:15 02/04/18 02:14 Montelukast Sodium (Singulair Tab) 10 mg HS PO 01/05/18 21:00 02/04/18 20:59 Multivitamins (Multivitamin Tab) 1 tab QAM PO 01/05/18 09:00 02/04/18 08:59 Multivitamins/ Minerals (Multivitamin W/ Minerals Tab) 1 tab DAILY PO 01/05/18 09:00 02/04/18 08:59 Buspirone HCl (Buspar Tab) 10 mg BID PO 01/05/18 09:00 02/04/18 08:59 Lubiprostone (Amitiza) 24 mcg BID PO 01/05/18 09:00 02/04/18 08:59 Polyethylene (Miralax Powder Packet) 17 gm DAILY PRN PO 01/05/18 02:15 02/04/18 02:14 Potassium Chloride/Sodium Chloride 1,000 ml @ 75 mls/hr [id number] IV 01/05/18 02:30 02/04/18 02:29 01/05/18 02:49 75 MLS/HR Metoclopramide HCl (Reglan Inj) 10 mg Q6H PRN IV 01/05/18 02:15 02/04/18 02:14 Miscellaneous (Fentanyl Patch Remove & Waste) 1 ea Q3D N/A 01/08/18 08:59 02/07/18 08:58 Miscellaneous Information (Check Fentanyl Patch Placement) 1 ea QS N/A 01/05/18 08:00 02/04/18 07:59 Hydromorphone HCl (Dilaudid Inj) 0.25 mg Q8H PRN IV 01/05/18 03:00 01/19/18 02:59 Metoprolol Succinate (Toprol Xl Tab) 25 mg QAM PO 01/06/18 09:00 02/04/18 08:59 Ioversol (Optiray 320) 100 ml UD PRN IV 01/05/18 04:00 01/09/18 03:59 Review of Systems Constitutional: No fever, No chills Respiratory: No cough Cardiovascular: No chest pain Abdomen: + pain (generalized), + nausea, No vomiting, No diarrhea, No constipation Genitourinary - Female: No dysuria Physical Exam Date Time Temp Pulse Resp B/P (MAP) Pulse Ox O2 Delivery O2 Flow Rate FiO2 01/05/18 02:34 36.0 110 16 153/102 95 Room Air 01/05/18 02:07 105 16 144/104 93 01/05/18 02:00 Room Air 01/05/18 00:30 107 18 138/92 Room Air 01/05/18 00:03 119 01/05/18 00:01 135/86 97 01/04/18 22:01 115 16 146/98 98 Room Air 01/04/18 19:13 36.6 106 20 121/80 98 Room Air General Appearance: WD/WN, no apparent distress Head: normocephalic, atraumatic ENT: hearing grossly normal Respiratory/Chest: no respiratory distress, no accessory muscle use Abdomen/GI: soft, no organomegaly, no pulsatile mass, + tenderness (mild generalized TTP) Neurologic/Psych: alert, normal mood/affect, oriented x 3 Laboratory Results Last 24 Hours Test 01/04/18 23:48 01/05/18 04:40 01/05/18 05:16 White Blood Count 10.53 K/uL Red Blood Count 4.13 M/uL Hemoglobin 10.1 g/dL Hematocrit 32.0 % Mean Corpuscular Volume 77.5 fL Mean Corpuscular Hemoglobin 24.5 pg Mean Corpuscular Hemoglobin Concent 31.6 g/dl Platelet Count 477 K/uL Mean Platelet Volume 8.4 fL Neutrophils (%) (Auto) 88.1 % Lymphocytes (%) (Auto) 5.9 % Monocytes (%) (Auto) 5.5 % Eosinophils (%) (Auto) 0.0 % Basophils (%) (Auto) 0.2 % Neutrophils # (Auto) 9.28 K/uL Lymphocytes # (Auto) 0.62 K/uL Monocytes # (Auto) 0.58 K/uL Eosinophils # (Auto) 0.00 K/uL Basophils # (Auto) 0.02 K/uL RDW Standard Deviation 45.2 fL RDW Coefficient of Variation 15.9 % Immature Granulocyte % (Auto) 0.3 % Immature Granulocyte # (Auto) 0.03 K/uL Sodium Level 137 mmol/L 139 mmol/L Potassium Level 3.2 mmol/L 3.9 mmol/L Chloride Level 100 mmol/L 103 mmol/L Carbon Dioxide Level 26 mmol/L 24 mmol/L Anion Gap 12.0 mmol/L 11.0 mmol/L Blood Urea Nitrogen 14 mg/dl 12 mg/dl Creatinine 0.60 mg/dl 0.46 mg/dl Estimated GFR () 117.3 128.0 Estimated GFR (Non- 101.2 110.4 BUN/Creatinine Ratio 23.8 27.0 Random Glucose 128 mg/dl 96 mg/dl Calcium Level 10.3 mg/dl 9.3 mg/dl Magnesium Level 2.2 mg/dl Total Bilirubin 0.4 mg/dl Direct Bilirubin 0.1 mg/dl Aspartate Amino Transf (AST/SGOT) 9 U/L Alanine Aminotransferase (ALT/SGPT) 11 U/L Alkaline Phosphatase 87 U/L Total Protein 8.4 gm/dl Albumin 3.4 gm/dl Lipase 322 U/L Urine Color YELLOW Urine Appearance CLOUDY Urine pH 7.0 Urine Specific [place] 1.039 Urine Protein TRACE Urine Glucose (UA) NEG Urine Ketones 3+ Urine Occult Blood NEG Urine Nitrite NEG Urine Bilirubin NEG Urine Urobilinogen NEG Urine Leukocyte Esterase TRACE Urine WBC (Auto) 1-5 /hpf Urine RBC (Auto) 10-30 /hpf Urine Hyaline Casts (Auto) 0 /lpf Urine Epithelial Cells (Auto) 10-20 /lpf Urine Bacteria (Auto) NEG Est Creatinine Clear Calc Drug Dose 116.1 ml/min Assessment & Plan small bowel obstruction pain controlled, No N/V at this time. NGT in place on LIWS. No acute surgical intervention indicated at this time. Keep NPO except chips/sips for now, IV fluids, IV pain medication PRN ( however trying to limit amount of narcotic pain medication she receives), IV Zofran PRN. Continue management per medicine service. Findings discussed with Dr. Velazquez, Please contact with questions or concerns.
--- NOTE | 2018-01-05 07:50 | DIAGNOSTIC IMAGING REPORT ---
ABDOMEN AND PELVIS CT WITH IV CONTRAST CT DOSE: 375.32 mGy.cm HISTORY: Worsening abdominal pain. TECHNIQUE: Multiaxial CT images of the abdomen and pelvis were performed following the use of intravenous contrast. A dose lowering technique was utilized adhering to the principles of ALARA. COMPARISON STUDY: Abdomen and pelvis CT 12/16/2017. FINDINGS: Linear densities at the lung bases consistent with subsegmental atelectasis. Nasogastric tube terminates in the body of the stomach. No pneumoperitoneum. No pneumatosis. Right hip prosthesis. Lumbar and sacral posterior fusion is again noted. The liver, gallbladder, spleen, adrenal glands, pancreas, and kidneys are unremarkable. No retroperitoneal lymphadenopathy. The bladder and uterus appear to be within normal limits. No retroperitoneal lymphadenopathy. Small hiatus hernia. Distended and fluid-filled stomach and proximal to mid small bowel. This consistent with a small bowel obstruction. This is not significantly changed. The transition point is likely in the deep pelvis where there are multiple decompressed loops of small bowel. Distended proximal jejunum measures up to 5.4 cm in diameter. This remains unchanged. IMPRESSION: Markedly dilated and fluid-filled proximal to mid small bowel as well as the stomach consistent with a high-grade small bowel obstruction. Transition point is likely within the deep pelvis with there are multiple decompressed loops of distal small bowel. This is not significantly changed compared to the prior study. Nasogastric tube terminates in the stomach. Electronically signed by: Ricardo Anthony M.D. 01/05/2018 7:48 AM Dictated Date/Time: 01/05/2018 7:40 AM
[2018-01-05] MEDS: CHECK FENTANYL PATCH PLACEMENT SCH ×2 (08:00→16:00)
--- NOTE | 2018-01-05 08:45 | Progress Note ---
Progress Note Date of Service Jan 05, 2018. Progress Note Subjective: Patient seen at bedside around 8:30 AM. Patient has NG tube. Speaking in full sentences. Denies acute pain. Reports last full meal yesterday lunch. Reports last bowel movement was yesterday morning and yesterday before arriving to ED. Denies dysuria Physical Exam General: no acute distress Lunge: CTABL Heart: mild tachycardia Head: NG tube in place Abdomen: soft, tender on palpation, midline scar from recent surgery for SBO Extremities: no gross edema Imagin01/05/18 Markedly dilated and fluid-filled proximal to mid small bowel as well as the stomach consistent with a high-grade small bowel obstruction. Transition point is likely within the deep pelvis with there are multiple decompressed loops of distal small bowel. This is not significantly changed compared to the prior study. Nasogastric tube terminates in the stomach Plan: -Patient with recurrent SBO, with SBO again -General surgery recommend nonoperative management with NG tube, IV fluids, IV pain meds as needed -Patient counseled on minimizing narcotics in order to more quickly alleviate SBO and to prevent worsening ileus; currently Dilaudid 0.25 mg prn q8 hours for pain, continue fentanyl patch -continue baclofen, gabapentin, Flexeril for other pain control modalities -history of paroxysmal supraventricular tachycardia, continue metoprolol, tachycardia: may be from pain: continue pain control -hypokalemia: monitor and replete -mood stable: continue sertraline, aripiprazole, lamotrigine, ativan prn -Diet: NPO except meds and ice chips -smoking cessation counseling DVT ppx: SCDs
[2018-01-05 08:56] VITALS: BP 116/78; PULSE 102; TEMP 36.7; O2SAT 91
[2018-01-05] MEDS: D5W AND 1/2NSS 1,000 ML IV SCH (09:00)
[2018-01-05] MEDS ORDERED: METOPROLOL SUCC 25MG EXT REL TAB PO SCH (09:00)
[2018-01-05] MEDS ORDERED: FAMOTIDINE 20 MG TAB PO SCH (09:00)
--- NOTE | 2018-01-05 09:27 | HISTORY & PHYSICAL EXAMINATION ---
DATE OF ADMISSION: 01/05/2018 PRIMARY CARE DOCTOR: Jerome Murillo MD. CHIEF COMPLAINT: Abdominal pain. HISTORY OF PRESENT ILLNESS: History obtained from patient and records. Medical history significant for chronic back pain on Fentanyl patch, PSVT sp ablation, COPD, past tobacco and alcohol abuse, gastroparesis per records, HCV status post treatment, history of MRSA, chronic anemia (baseline hemoglobin of 9). Recent confinement 2 weeks ago for recurrent bowel obstruction. Resolved with conservative management. Yesterday, the patient had burning generalized abdominal discomfort, distention, some nausea. No emesis. Good bowel movement. At the Emergency Room, NG inserted for recurrent bowel obstruction. Patient still complaining of the "worst abdominal pain." MEDICAL HISTORY: As above. SURGERIES: She had hip surgery, tonsillectomy, fundoplasty sinus surgery, bowel surgery, and tubal ligation. HOME MEDICATIONS: Include Abilify, Ventolin, buspirone, baclofen, Os-Emile, Flexeril. Zyrtec, dicyclomine, Pepcid, Lasix, fentanyl, gabapentin, Amitiza, Lamictal, lorazepam, Reglan, Singulair, Toprol-XL, multivitamins, Ocuvite, Zofran, MiraLax, and Micro-K. ALLERGIES: CHLORPROMAZINE, HYDROXYZINE, LISINOPRIL, AND CLARITHROMYCIN. FAMILY HISTORY: There is a family history of hypertension and heart disease. PERSONAL AND SOCIAL HISTORY: Past tobacco abuse, stable. REVIEW OF SYSTEMS: As per HPI, all 10 systems were reviewed, all other ROS negative. PHYSICAL EXAMINATION: VITAL SIGNS: Blood pressure was noted to be 121/80, pulse rate 105, RR 26, T 37, and sats 98 on room air. GENERAL: Noted to be uncomfortable and tearful, in no respiratory distress. SKIN: Pallor, warm. HEENT: Pale palpebral conjunctivae. No ptosis. Dry mucosa. NGT in place. NECK: Supple, nontender. CHEST: Decreased breath sounds, no tenderness . HEART: Tachycardic. No murmur. ABDOMEN: Some distention. Healed incisional scars. Nonspecific tenderness on light palpation. EXTREMITIES: no edema . No gross deformities. No tenderness. NEUROLOGIC: Coherent. No gross focality. LABORATORY DATA: Hemoglobin 10.1, hematocrit 32, white cell count 10, and platelets 477. Sodium 136, potassium 3.2, chloride 100, CO2 of 26, BUN 40, creatinine 0.6, glucose is 128. IMAGING STUDIES: Plain chest/abdominal x-ray showed SBO. ASSESSMENT: 1. Recurrent small bowel obstruction 2. chronic pain, on fentanyl patch 3. history of paroxysmal supraventricular tachycardia, on beta rosibel 4. past tobacco and alcohol abuse 5. HCV sp tx 6. hypokalemia secondary to home diuretic Rx 7. hx MRSA. PLAN: GMF Continue NGT decompression. Surgery consult RE Recurrent SBO. (Patient known to Dr. Coello.) judicious narcotic use. Patient declines going down on home Fentanyl patch interim. Replace potassium. DVT prophylaxis. SCDs RE recent GI bleed. (Intermittent episodes of coffee- ground NGT drainage during recent confinements.) Full code. MTDD
[2018-01-05] MEDS: DICYCLOMINE HCL 10 MG CAP PO SCH ×2 (09:54→21:09)
[2018-01-05] MEDS: MULTIVITAMIN TAB PO SCH (09:54)
[2018-01-05] MEDS: CETIRIZINE HCL 10 MG TAB PO SCH (09:55)
[2018-01-05] MEDS: GABAPENTIN 300 MG CAP PO SCH ×4 (09:55→21:08)
[2018-01-05] MEDS: LUBIPROSTONE 8 MCG CAP PO SCH ×2 (09:55→21:08)
[2018-01-05] MEDS: ARIPIprazole TAB 15 MG TAB PO SCH (09:56)
[2018-01-05] MEDS: CEROVITE ADV FORMULA TAB PO SCH (09:56)
[2018-01-05] MEDS: BACLOFEN 10 MG TAB PO SCH ×4 (09:57→21:08)
[2018-01-05] MEDS: FENTANYL 25 MCG/HR TDSY TD SCH (10:45)
[2018-01-05 15:11] VITALS: BP 122/82; PULSE 105; TEMP 37; O2SAT 91
[2018-01-05] MEDS: ACETAMINOPHEN IV 650 MG in EMPTY BAG 0 ML IV PRN (19:07)
[2018-01-05] MEDS: LORAZEPAM 1 MG TAB PO PRN (21:08)
[2018-01-05] MEDS: MONTELUKAST SOD 10 MG TAB PO SCH (21:08)
[2018-01-05 22:50] VITALS: BP 114/72; PULSE 87; TEMP 36.7; O2SAT 94
[2018-01-06] MEDS: D5W AND 1/2NSS 1,000 ML IV SCH ×3 (01:26→23:38)
[2018-01-06] MEDS: ACETAMINOPHEN IV 650 MG in EMPTY BAG 0 ML IV PRN ×2 (01:47→11:53)
--- NOTE | 2018-01-06 06:19 | Surgery Progress Note ---
Surgery Progress Note Date of Service Jan 06, 2018. Subjective Post OP Day: HD#1 + flatus, + pain controlled, + diet (NPO), No complaints, No bowel movement, No nausea, No vomiting Denies abdominal pain at this time. Objective Vital Signs: Date Time Temp Pulse Resp B/P (MAP) Pulse Ox O2 Delivery O2 Flow Rate FiO2 01/06/18 01:20 Room Air 01/05/18 22:50 36.7 87 16 114/72 (86) 94 Room Air 01/05/18 17:00 Room Air 01/05/18 15:11 37.0 105 18 122/82 (95) 91 Room Air 01/05/18 08:56 36.7 102 18 116/78 (91) 91 Room Air 01/05/18 08:00 Room Air Physical Exam: nasogastric drainage (225ml output so far this AM) General Appearance: WD/WN, no apparent distress Head: normocephalic, atraumatic Respiratory/Chest: no respiratory distress, no accessory muscle use Abdomen: non distended, soft, no organomegaly, + tenderness (mild generalized TTP) Laboratory Results: Results Past 24 Hours Test 01/06/18 04:44 Range/Units Assessment & Plan HD#1 small bowel obstruction Abdomen soft, no pain at this time, No N/V. + Flatus, No BM yet. NGT output 225ml so far this AM. Keep NGT for now, Keep NPO except chips/meds. Continue conservative management. Continue medical management per hospitalist service. Please contact with questions or concerns.
[2018-01-06 08:00] VITALS: BP 129/79; PULSE 86; TEMP 37; O2SAT 94
[2018-01-06] MEDS: LUBIPROSTONE 8 MCG CAP PO SCH ×2 (08:12→22:34)
[2018-01-06] MEDS: CEROVITE ADV FORMULA TAB PO SCH (08:12)
[2018-01-06] MEDS: METOPROLOL SUCC 25MG EXT REL TAB PO SCH (08:12)
[2018-01-06] MEDS: CETIRIZINE HCL 10 MG TAB PO SCH (08:12)
[2018-01-06] MEDS: DICYCLOMINE HCL 10 MG CAP PO SCH ×2 (08:12→22:34)
[2018-01-06] MEDS: GABAPENTIN 300 MG CAP PO SCH ×3 (08:12→22:29)
[2018-01-06] MEDS: MULTIVITAMIN TAB PO SCH (08:12)
[2018-01-06] MEDS: ARIPIprazole TAB 15 MG TAB PO SCH (08:13)
[2018-01-06] MEDS: BACLOFEN 10 MG TAB PO SCH ×3 (08:13→22:34)
--- NOTE | 2018-01-06 08:28 | DIAGNOSTIC IMAGING REPORT ---
KUB CLINICAL HISTORY: Small bowel obstruction COMPARISON STUDY: January 04, 2018 FINDINGS: There are extensive postsurgical changes within the lumbar spine pelvis and right hip. The right-sided lumbar spinal gia is fractured. There is a nasogastric tube within the stomach. There is decreased gaseous distention of the bowel. There is gas present within the lower pelvis. The orientation raise the possibility of gas within the bladder. IMPRESSION: 1. Nasogastric tube stomach 2. Significant decrease in the gaseous distention of the bowel Electronically signed by: Sukhdev Crenshaw M.D. 01/06/2018 8:27 AM Dictated Date/Time: 01/06/2018 8:25 AM
[2018-01-06] MEDS: CHECK FENTANYL PATCH PLACEMENT SCH ×4 (08:30→23:38)
[2018-01-06 09:10] LABS: BASO % 0.2 %; BASO ABS # 0.01 K/uL (0-0.2); EOS % 3.8 %; HEMATOCRIT 28.6 % (37-47); HEMOGLOBIN 8.9 g/dL (12.0-16.0); IG# 0.01 K/uL (0.00-0.02); LYMPH % 28.2 %; LYMPH ABS # 1.47 K/uL (1.2-3.4); MEAN CELL VOLUME 78.4 fL (80-100); MEAN CORPUSCULAR HEMOGLOBIN 24.4 pg (25-34); MEAN CORPUSCULAR HGB CONC 31.1 g/dl (32-36); MEAN PLATELET VOLUME 8.6 fL (7.4-10.4); MONO % 12.5 %; MONO ABS # 0.65 K/uL (0.11-0.59); NEUT % 55.1 %; NEUT ABS # 2.88 K/uL (1.4-6.5); PLATELET COUNT 380 K/uL (130-400); RED CELL DISTRIBUTION WIDTH CV 16.3 % (11.5-14.5); RED CELL DISTRIBUTION WIDTH SD 46.9 fL (36.4-46.3); WHITE BLOOD COUNT 5.22 K/uL (4.8-10.8)
[2018-01-06 09:49] LABS: ALBUMIN 2.6 gm/dl (3.4-5.0); CALCIUM 8.3 mg/dl (8.5-10.1); CREATININE 0.44 mg/dl (0.60-1.20); POTASSIUM 3.2 mmol/L (3.5-5.1); TOTAL PROTEIN 6.7 gm/dl (6.4-8.2)
[2018-01-06] MEDS: LORAZEPAM 1 MG TAB PO PRN (10:05)
[2018-01-06] MEDS: FAMOTIDINE 20 MG TAB PO SCH (10:05)
[2018-01-06] MEDS: POTASSIUM CHLR 10 MEQ / WTR 10 MEQ in PREMIXED WATER 100 ML IV SCH ×3 (13:28→15:44)
[2018-01-06 15:13] VITALS: BP 136/87; PULSE 80; TEMP 37.3; O2SAT 95
--- NOTE | 2018-01-06 16:21 | Progress Note ---
Internal Med Progress Note Date of Service: Jan 06, 2018. Provider Documentation: Subjective: Patient seen at bedside. With NG tube. Reports passing flatus. Hypokalemia with additional IV potassium supplements ordered Physical Exam General: no acute distress Lunge: CTABL Heart: mild tachycardia Head: NG tube in place Abdomen: soft, tender on palpation, midline scar from recent surgery for SBO Extremities: no gross edema ASSESSMENT & PLAN: Imagin01/06/18 JUB 1. Nasogastric tube stomach 2. Significant decrease in the gaseous distention of the bowel Plan: -Patient with recurrent SBO, with SBO again -General surgery recommend nonoperative management with NG tube, IV fluids, IV pain meds as needed -Patient counseled on minimizing narcotics in order to more quickly alleviate SBO and to prevent worsening ileus; currently Dilaudid 0.25 mg prn q8 hours for pain, continue fentanyl patch -continue baclofen, gabapentin, Flexeril for other pain control modalities -history of paroxysmal supraventricular tachycardia, continue metoprolol, tachycardia: may be from pain: continue pain control -hypokalemia for GI losses (has NG tube): monitor and replete with IV potassium -mood stable: continue sertraline, aripiprazole, lamotrigine, ativan prn -Diet: NPO except meds and ice chips -smoking cessation counseling Full Code Vital Signs: Date Time Temp Pulse Resp B/P (MAP) Pulse Ox O2 Delivery O2 Flow Rate FiO2 01/06/18 15:13 37.3 80 16 136/87 (103) 95 Room Air 01/06/18 08:20 Room Air 01/06/18 08:00 37.0 86 16 129/79 (96) 94 Room Air 01/06/18 01:20 Room Air 01/05/18 22:50 36.7 87 16 114/72 (86) 94 Room Air 01/05/18 17:00 Room Air Lab Results: Results Past 24 Hours Test 01/06/18 08:27 Range/Units White Blood Count 5.22 4.8-10.8 K/uL Red Blood Count 3.65 4.2-5.4 M/uL Hemoglobin 8.9 12.0-16.0 g/dL Hematocrit 28.6 37-47 % Mean Corpuscular Volume 78.4 80-100 fL Mean Corpuscular Hemoglobin 24.4 25-34 pg Mean Corpuscular Hemoglobin Concent 31.1 32-36 g/dl Platelet Count 380 130-400 K/uL Mean Platelet Volume 8.6 7.4-10.4 fL Neutrophils (%) (Auto) 55.1 % Lymphocytes (%) (Auto) 28.2 % Monocytes (%) (Auto) 12.5 % Eosinophils (%) (Auto) 3.8 % Basophils (%) (Auto) 0.2 % Neutrophils # (Auto) 2.88 1.4-6.5 K/uL Lymphocytes # (Auto) 1.47 1.2-3.4 K/uL Monocytes # (Auto) 0.65 0.11-0.59 K/uL Eosinophils # (Auto) 0.20 0-0.5 K/uL Basophils # (Auto) 0.01 0-0.2 K/uL RDW Standard Deviation 46.9 36.4-46.3 fL RDW Coefficient of Variation 16.3 11.5-14.5 % Immature Granulocyte % (Auto) 0.2 % Immature Granulocyte # (Auto) 0.01 0.00-0.02 K/uL Polychromasia 1+ Hypochromasia PRESENT Poikilocytosis PRESENT Sodium Level 140 136-145 mmol/L Potassium Level 3.2 3.5-5.1 mmol/L Chloride Level 107 98-107 mmol/L Carbon Dioxide Level 25 21-32 mmol/L Anion Gap 8.0 3-11 mmol/L Blood Urea Nitrogen 6 7-18 mg/dl Creatinine 0.44 0.60-1.20 mg/dl Est Creatinine Clear Calc Drug Dose 121.4 ml/min Estimated GFR () 129.9 Estimated GFR (Non- 112.1 BUN/Creatinine Ratio 12.6 10-20 Random Glucose 86 70-99 mg/dl Calcium Level 8.3 8.5-10.1 mg/dl Total Bilirubin 0.3 0.2-1 mg/dl Aspartate Amino Transf (AST/SGOT) 11 15-37 U/L Alanine Aminotransferase (ALT/SGPT) 10 12-78 U/L Alkaline Phosphatase 64 45-117 U/L Total Protein 6.7 6.4-8.2 gm/dl Albumin 2.6 3.4-5.0 gm/dl Globulin 4.1 2.5-4.0 gm/dl Albumin/Globulin Ratio 0.6 0.9-2
[2018-01-06] MEDS ORDERED: NURSING VERBAL MED ORDER ONE (17:45)
[2018-01-06] MEDS ORDERED: LORAZEPAM INJ 0.5 MG in SYRINGE 0.75 ML IV PRN (18:00)
[2018-01-06] MEDS: TRAMADOL HCL 50 MG TAB PO PRN (18:56)
[2018-01-06] MEDS: MONTELUKAST SOD 10 MG TAB PO SCH (22:29)
[2018-01-06 23:05] VITALS: BP 130/85; PULSE 88; TEMP 37.1; O2SAT 95
[2018-01-07] MEDS: ZOLPIDEM TARTRATE 5 MG TAB PO PRN ×2 (01:18→22:32)
--- NOTE | 2018-01-07 07:12 | Surgery Progress Note ---
Surgery Progress Note Date of Service Jan 07, 2018. Subjective + feeling well, + bowel movement (Per patient), + flatus, + pain controlled, + diet (NPO), No complaints, No nausea, No vomiting Patient pulled her own NGT tube last evening at 1830. She has not had any N/V since then Objective Vital Signs: Date Time Temp Pulse Resp B/P (MAP) Pulse Ox O2 Delivery O2 Flow Rate FiO2 01/06/18 23:31 Room Air 01/06/18 23:05 37.1 88 16 130/85 (100) 95 Room Air 01/06/18 15:50 Room Air 01/06/18 15:13 37.3 80 16 136/87 (103) 95 Room Air 01/06/18 08:20 Room Air 01/06/18 08:00 37.0 86 16 129/79 (96) 94 Room Air General Appearance: WD/WN, no apparent distress Head: normocephalic, atraumatic Neck: trachea midline Respiratory/Chest: no respiratory distress, no accessory muscle use Abdomen: non tender, non distended, soft, no organomegaly, no pulsatile mass Laboratory Results: Results Past 24 Hours Test 01/06/18 08:27 01/07/18 06:29 Range/Units White Blood Count 5.22 4.8-10.8 K/uL Red Blood Count 3.65 4.2-5.4 M/uL Hemoglobin 8.9 12.0-16.0 g/dL Hematocrit 28.6 37-47 % Mean Corpuscular Volume 78.4 80-100 fL Mean Corpuscular Hemoglobin 24.4 25-34 pg Mean Corpuscular Hemoglobin Concent 31.1 32-36 g/dl Platelet Count 380 130-400 K/uL Mean Platelet Volume 8.6 7.4-10.4 fL Neutrophils (%) (Auto) 55.1 % Lymphocytes (%) (Auto) 28.2 % Monocytes (%) (Auto) 12.5 % Eosinophils (%) (Auto) 3.8 % Basophils (%) (Auto) 0.2 % Neutrophils # (Auto) 2.88 1.4-6.5 K/uL Lymphocytes # (Auto) 1.47 1.2-3.4 K/uL Monocytes # (Auto) 0.65 0.11-0.59 K/uL Eosinophils # (Auto) 0.20 0-0.5 K/uL Basophils # (Auto) 0.01 0-0.2 K/uL RDW Standard Deviation 46.9 36.4-46.3 fL RDW Coefficient of Variation 16.3 11.5-14.5 % Immature Granulocyte % (Auto) 0.2 % Immature Granulocyte # (Auto) 0.01 0.00-0.02 K/uL Polychromasia 1+ Hypochromasia PRESENT Poikilocytosis PRESENT Sodium Level 140 136-145 mmol/L Potassium Level 3.2 3.5-5.1 mmol/L Chloride Level 107 98-107 mmol/L Carbon Dioxide Level 25 21-32 mmol/L Anion Gap 8.0 3-11 mmol/L Blood Urea Nitrogen 6 7-18 mg/dl Creatinine 0.44 0.60-1.20 mg/dl Est Creatinine Clear Calc Drug Dose 121.4 ml/min Estimated GFR () 129.9 Estimated GFR (Non- 112.1 BUN/Creatinine Ratio 12.6 10-20 Random Glucose 86 70-99 mg/dl Calcium Level 8.3 8.5-10.1 mg/dl Total Bilirubin 0.3 0.2-1 mg/dl Aspartate Amino Transf (AST/SGOT) 11 15-37 U/L Alanine Aminotransferase (ALT/SGPT) 10 12-78 U/L Alkaline Phosphatase 64 45-117 U/L Total Protein 6.7 6.4-8.2 gm/dl Albumin 2.6 3.4-5.0 gm/dl Globulin 4.1 2.5-4.0 gm/dl Albumin/Globulin Ratio 0.6 0.9-2 Assessment & Plan Recurrent small bowel obstruction Reports no pain at this time, No N/V, patient pulled her NGT last night. +flatus, +BM per patient. Possibly start clears later today if she continues to have no N/V. Findings discussed with Dr. Coello. Will continue to follow. Please contact with questions or concerns. HD#1 small bowel obstruction Abdomen soft, no pain at this time, No N/V. + Flatus, No BM yet. NGT output 225ml so far this AM. Keep NGT for now, Keep NPO except chips/meds. Continue conservative management. Continue medical management per hospitalist service. Please contact with questions or concerns.
[2018-01-07 07:18] LABS: CALCIUM 8.6 mg/dl (8.5-10.1); CREATININE 0.49 mg/dl (0.60-1.20); POTASSIUM 3.5 mmol/L (3.5-5.1)
--- NOTE | 2018-01-07 08:25 | DIAGNOSTIC IMAGING REPORT ---
KUB CLINICAL HISTORY: Small bowel obstruction. FINDINGS: AP supine abdominal radiograph is compared to study dated 01/06/2018 and correlated with abdominal CT dated 01/05/2018. The enteric tube has been removed. Findings suggest persistent small bowel obstruction. The degree of distention is similar to yesterday. No evidence of intraperitoneal free air is seen on this supine examination. There are no abnormal abdominal calcifications. The skeletal structures are osteopenic. Posttraumatic deformity and postoperative change is identified in the bony pelvis. There is a right hip arthroplasty. Extensive thoracolumbar spinal fusion hardware is in place. IMPRESSION: 1. The enteric tube has been removed. 2. Findings suggest persistent small bowel obstruction. The degree of distention is similar to yesterday. Electronically signed by: Jeffry Colunga M.D. 01/07/2018 8:24 AM Dictated Date/Time: 01/07/2018 8:22 AM
[2018-01-07 08:44] VITALS: BP 127/81; PULSE 96; TEMP 37.2; O2SAT 95
[2018-01-07] MEDS: CHECK FENTANYL PATCH PLACEMENT SCH ×3 (09:19→23:19)
[2018-01-07] MEDS: CEROVITE ADV FORMULA TAB PO SCH (09:25)
[2018-01-07] MEDS: CETIRIZINE HCL 10 MG TAB PO SCH (09:25)
[2018-01-07] MEDS: MULTIVITAMIN TAB PO SCH (09:25)
[2018-01-07] MEDS: METOPROLOL SUCC 25MG EXT REL TAB PO SCH (09:25)
[2018-01-07] MEDS: GABAPENTIN 300 MG CAP PO SCH ×3 (09:25→20:46)
[2018-01-07] MEDS: FAMOTIDINE 20 MG TAB PO SCH (09:25)
[2018-01-07] MEDS: BACLOFEN 10 MG TAB PO SCH ×3 (09:25→20:46)
[2018-01-07] MEDS: DICYCLOMINE HCL 10 MG CAP PO SCH ×2 (09:26→20:46)
[2018-01-07] MEDS: LUBIPROSTONE 8 MCG CAP PO SCH ×2 (09:26→20:46)
[2018-01-07] MEDS: ARIPIprazole TAB 15 MG TAB PO SCH (09:26)
[2018-01-07] MEDS: LORAZEPAM 1 MG TAB PO PRN (09:34)
[2018-01-07] MEDS: D5W AND 1/2NSS 1,000 ML IV SCH (12:31)
[2018-01-07 15:53] VITALS: BP 120/86; PULSE 91; TEMP 37.4; O2SAT 96
--- NOTE | 2018-01-07 16:23 | Progress Note ---
Internal Med Progress Note Date of Service: Jan 07, 2018. Provider Documentation: Subjective: Patient seen at bedside. no longer on NG tube. reports bowel movements, eating without nausea Physical Exam General: no acute distress Lunge: CTABL Heart: mild tachycardia Abdomen: soft, tender on palpation, midline scar from recent surgery for SBO Extremities: no gross edema ASSESSMENT & PLAN: Imaging: KUB 01/07/18 in AM 1. The enteric tube has been removed. 2. Findings suggest persistent small bowel obstruction. The degree of distention is similar to yesterday. Plan: -Patient with recurrent SBO and with resolution of symptoms today as her NG tube fell out she is reporting bowel movements and able to eat lunch without exacerbation of symptoms -will continue to monitor further but likely patient can be discharged by tomorrow -as pain symptoms also resolving, will stop prn dilaudid, continue fentanyl patch patch for now -continue baclofen, gabapentin, Flexeril for other pain control modalities -mood stable: continue sertraline, aripiprazole, lamotrigine, ativan prn -history of paroxysmal supraventricular tachycardia, continue metoprolol -hypokalemia for GI losses from NG tube and had received IV potassium, will stop IV fluids as NG tube is out and symptoms resolving and patient now eating, expect serum potassium to improve -anemia with Hgb lowered likely to dilution with IV fluids, trend CBC Full Code Disposition: when patient is discharged, she can follow up 01/12/18 at [address] Murillo [address] [place] [address] Vital Signs: Date Time Temp Pulse Resp B/P (MAP) Pulse Ox O2 Delivery O2 Flow Rate FiO2 01/07/18 15:53 37.4 91 18 120/86 (97) 96 Room Air 01/07/18 10:48 Room Air 01/07/18 08:44 37.2 96 16 127/81 (96) 95 Room Air 01/06/18 23:31 Room Air 01/06/18 23:05 37.1 88 16 130/85 (100) 95 Room Air Lab Results: Results Past 24 Hours Test 01/07/18 06:29 Range/Units Sodium Level 139 136-145 mmol/L Potassium Level 3.5 3.5-5.1 mmol/L Chloride Level 108 98-107 mmol/L Carbon Dioxide Level 25 21-32 mmol/L Anion Gap 6.0 3-11 mmol/L Blood Urea Nitrogen 4 7-18 mg/dl Creatinine 0.49 0.60-1.20 mg/dl Est Creatinine Clear Calc Drug Dose 109.0 ml/min Estimated GFR () 125.3 Estimated GFR (Non- 108.2 BUN/Creatinine Ratio 9.0 10-20 Random Glucose 88 70-99 mg/dl Calcium Level 8.6 8.5-10.1 mg/dl Magnesium Level 2.0 1.8-2.4 mg/dl
[2018-01-07] MEDS: MONTELUKAST SOD 10 MG TAB PO SCH (20:46)
[2018-01-07 22:12] VITALS: BP 115/74; PULSE 83; TEMP 37.3; O2SAT 98
[2018-01-08] MEDS: TRAMADOL HCL 50 MG TAB PO PRN ×2 (03:41→10:49)
--- NOTE | 2018-01-08 06:30 | Surgery Progress Note ---
Surgery Progress Note Date of Service Jan 08, 2018. Subjective + feeling well, + bowel movement, + flatus, + pain controlled, + diet ( Tolerating low-fiber/regular diet.), No complaints, No nausea, No vomiting KUB yesterday AM shows findings of persistent obstruction Objective Vital Signs: Date Time Temp Pulse Resp B/P (MAP) Pulse Ox O2 Delivery O2 Flow Rate FiO2 01/07/18 23:15 Room Air 01/07/18 22:12 37.3 83 17 115/74 (88) 98 Room Air 01/07/18 15:53 37.4 91 18 120/86 (97) 96 Room Air 01/07/18 15:35 Room Air 01/07/18 10:48 Room Air 01/07/18 08:44 37.2 96 16 127/81 (96) 95 Room Air General Appearance: WD/WN, no apparent distress Head: normocephalic, atraumatic Neck: trachea midline Respiratory/Chest: no respiratory distress, no accessory muscle use Abdomen: non tender, non distended, soft, no organomegaly Laboratory Results: Results Past 24 Hours Test 01/07/18 06:29 01/08/18 04:44 Range/Units Sodium Level 139 136-145 mmol/L Potassium Level 3.5 3.5-5.1 mmol/L Chloride Level 108 98-107 mmol/L Carbon Dioxide Level 25 21-32 mmol/L Anion Gap 6.0 3-11 mmol/L Blood Urea Nitrogen 4 7-18 mg/dl Creatinine 0.49 0.60-1.20 mg/dl Est Creatinine Clear Calc Drug Dose 109.0 ml/min Estimated GFR () 125.3 Estimated GFR (Non- 108.2 BUN/Creatinine Ratio 9.0 10-20 Random Glucose 88 70-99 mg/dl Calcium Level 8.6 8.5-10.1 mg/dl Magnesium Level 2.0 1.8-2.4 mg/dl Assessment & Plan Recurrent small bowel obstruction No pain at this time, abdominal exam benign. No N/V, Tolerating low-fiber/ regular diet. + flatus, +BM yesterday. Obstruction seems to be resolving clinically however KUB yesterday shows persistent obstruction. Possible D/C today or tomorrow if she continues to do well. Will discuss findings with Dr. Coello. [facility] general surgery covering this weekend. Please contact with questions or concerns. Recurrent small bowel obstruction Reports no pain at this time, No N/V, patient pulled her NGT last night. +flatus, +BM per patient. Possibly start clears later today if she continues to have no N/V. Findings discussed with Dr. Coello. Will continue to follow. Please contact with questions or concerns.
[2018-01-08 07:25] VITALS: BP 117/77; PULSE 83; TEMP 37.2; O2SAT 98
[2018-01-08] MEDS: CHECK FENTANYL PATCH PLACEMENT SCH (08:00)
--- NOTE | 2018-01-08 08:23 | DIAGNOSTIC IMAGING REPORT ---
KUB HISTORY: resolving bowel obstruction symptoms COMPARISON: KUB 01/07/2018. FINDINGS: Extensive lumbosacral posterior fusion hardware. The right spinal gia remains fractured. There are postoperative changes within the right hemipelvis and a right hip stenosis. Old, healed left iliac wing and left pubic ring fractures. Gas-filled mildly distended colon has increased. There are few gas-filled mildly dilated loops of small bowel. There is also gas filled moderately distended stomach. No renal calculi. No ureteral calculi. No pneumoperitoneum or pneumatosis. IMPRESSION: 1. Slight progression of the gas-filled mildly distended stomach, small bowel, and large bowel. This could represent an ileus. 2. The right lumbar spinal gia remains fractured. Electronically signed by: Ricardo Anthony M.D. 01/08/2018 8:21 AM Dictated Date/Time: 01/08/2018 8:17 AM
[2018-01-08] MEDS: FAMOTIDINE 20 MG TAB PO SCH (08:38)
[2018-01-08] MEDS: METOPROLOL SUCC 25MG EXT REL TAB PO SCH (08:38)
[2018-01-08] MEDS: GABAPENTIN 300 MG CAP PO SCH ×2 (08:39→13:53)
[2018-01-08] MEDS: MONTELUKAST SOD 10 MG TAB PO SCH (08:39)
[2018-01-08] MEDS: LUBIPROSTONE 8 MCG CAP PO SCH (08:40)
[2018-01-08] MEDS: ARIPIprazole TAB 15 MG TAB PO SCH (08:40)
[2018-01-08] MEDS: BACLOFEN 10 MG TAB PO SCH ×2 (08:41→13:53)
[2018-01-08] MEDS: DICYCLOMINE HCL 10 MG CAP PO SCH (08:41)
[2018-01-08] MEDS: CETIRIZINE HCL 10 MG TAB PO SCH (08:41)
[2018-01-08] MEDS: CEROVITE ADV FORMULA TAB PO SCH (08:41)
[2018-01-08] MEDS: MULTIVITAMIN TAB PO SCH (08:41)
[2018-01-08] MEDS: FENTANYL 25 MCG/HR TDSY TD SCH (08:49)
[2018-01-08 08:56] LABS: BASO % 0.2 %; BASO ABS # 0.02 K/uL (0-0.2); EOS % 0.6 %; EOS ABS # 0.05 K/uL (0-0.5); HEMATOCRIT 31.3 % (37-47); HEMOGLOBIN 9.8 g/dL (12.0-16.0); IG# 0.02 K/uL (0.00-0.02); LYMPH % 26.8 %; LYMPH ABS # 2.15 K/uL (1.2-3.4); MEAN CELL VOLUME 77.3 fL (80-100); MEAN CORPUSCULAR HEMOGLOBIN 24.2 pg (25-34); MEAN CORPUSCULAR HGB CONC 31.3 g/dl (32-36); MEAN PLATELET VOLUME 8.4 fL (7.4-10.4); MONO % 12.5 %; NEUT % 59.7 %; NEUT ABS # 4.78 K/uL (1.4-6.5); PLATELET COUNT 467 K/uL (130-400); RED CELL DISTRIBUTION WIDTH CV 16.5 % (11.5-14.5); RED CELL DISTRIBUTION WIDTH SD 46.3 fL (36.4-46.3); WHITE BLOOD COUNT 8.02 K/uL (4.8-10.8)
[2018-01-08] MEDS ORDERED: FENTANYL PATCH REMOVE & WASTE SCH (08:59)
[2018-01-08 09:24] LABS: CREATININE 0.58 mg/dl (0.60-1.20); POTASSIUM 3.4 mmol/L (3.5-5.1)
--- NOTE | 2018-01-08 13:05 | Progress Note ---
Internal Med Progress Note Date of Service: Jan 08, 2018. Provider Documentation: Subjective: Patient seen at bedside. able to tolerate diet. reports bowel movement and some diarrhea Physical Exam General: no acute distress Lunge: CTABL Heart: regular heart rate Abdomen: soft, mild tender on palpation - less tender than previous exams, midline scar from recent surgery for SBO Extremities: no gross edema ASSESSMENT & PLAN: Hospital Course: This is a patient with recurrent small bowel obstruction and ileus. Presented to hospital with abdominal discomfort and SBo symptoms and on CT abdomen with markedly dilated and fluid-filled proximal to mid small bowel as well as the stomach consistent with a high-grade small bowel obstruction. Patient had NG tube with suctioning which was then discontinued between the night time o 01/06/18 to 01/07/18 after NG tube access to stomach was lost and NG tube had to be removed. Patient then started to have bowel movements and is eating a diet. Patient has daily KUB exams with KUB on 01/08/18 in comparison to 01/07/2018 showing radiographically presence of ileus FINDINGS: Extensive lumbosacral posterior fusion hardware. The right spinal gia remains fractured. There are postoperative changes within the right hemipelvis and a right hip stenosis. Old, healed left iliac wing and left pubic ring fractures. Gas-filled mildly distended colon has increased. There are few gas-filled mildly dilated loops of small bowel. There is also gas filled moderately distended stomach. No renal calculi. No ureteral calculi. No pneumoperitoneum or pneumatosis. IMPRESSION: 1. Slight progression of the gas-filled mildly distended stomach, small bowel, and large bowel. This could represent an ileus. 2. The right lumbar spinal gia remains fractured Discharge instructions Patient was advised that upon discharge to home she should minimize narcotic pain medications to treat her history of chronic back pain in order to prevent recurrent Small bowel obstruction or ileus Patient advised to eat small amounts of food at a time with meals as tolerated History of paroxysmal supraventricular tachycardia, continue metoprolol Patient is to follow up on 01/12/18 at 11 AM with primary care physician, Dr. Murillo [address] [place] [address] Vital Signs: Date Time Temp Pulse Resp B/P (MAP) Pulse Ox O2 Delivery O2 Flow Rate FiO2 01/08/18 08:00 Room Air 01/08/18 07:25 37.2 83 15 117/77 (90) 98 Room Air 01/07/18 23:15 Room Air 01/07/18 22:12 37.3 83 17 115/74 (88) 98 Room Air 01/07/18 15:53 37.4 91 18 120/86 (97) 96 Room Air 01/07/18 15:35 Room Air Lab Results: Results Past 24 Hours Test 01/08/18 08:37 Range/Units White Blood Count 8.02 4.8-10.8 K/uL Red Blood Count 4.05 4.2-5.4 M/uL Hemoglobin 9.8 12.0-16.0 g/dL Hematocrit 31.3 37-47 % Mean Corpuscular Volume 77.3 80-100 fL Mean Corpuscular Hemoglobin 24.2 25-34 pg Mean Corpuscular Hemoglobin Concent 31.3 32-36 g/dl Platelet Count 467 130-400 K/uL Mean Platelet Volume 8.4 7.4-10.4 fL Neutrophils (%) (Auto) 59.7 % Lymphocytes (%) (Auto) 26.8 % Monocytes (%) (Auto) 12.5 % Eosinophils (%) (Auto) 0.6 % Basophils (%) (Auto) 0.2 % Neutrophils # (Auto) 4.78 1.4-6.5 K/uL Lymphocytes # (Auto) 2.15 1.2-3.4 K/uL Monocytes # (Auto) 1.00 0.11-0.59 K/uL Eosinophils # (Auto) 0.05 0-0.5 K/uL Basophils # (Auto) 0.02 0-0.2 K/uL RDW Standard Deviation 46.3 36.4-46.3 fL RDW Coefficient of Variation 16.5 11.5-14.5 % Immature Granulocyte % (Auto) 0.2 % Immature Granulocyte # (Auto) 0.02 0.00-0.02 K/uL Sodium Level 140 136-145 mmol/L Potassium Level 3.4 3.5-5.1 mmol/L Chloride Level 109 98-107 mmol/L Carbon Dioxide Level 21 21-32 mmol/L Anion Gap 9.0 3-11 mmol/L Blood Urea Nitrogen 5 7-18 mg/dl Creatinine 0.58 0.60-1.20 mg/dl Est Creatinine Clear Calc Drug Dose 92.1 ml/min Estimated GFR () 118.6 Estimated GFR (Non- 102.3 BUN/Creatinine Ratio 9.1 10-20 Random Glucose 91 70-99 mg/dl Calcium Level 9.0 8.5-10.1 mg/dl
--- NOTE | 2018-01-08 13:09 | Discharge Instructions ---
Discharge Instructions Date of Service Jan 08, 2018. Admission Reason for Admission: SBO Discharge Discharge Diagnosis / Problem: Small bowel obstruction, Ileus Discharge Goals Goal(s): Improve function Activity Recommendations Activity Limitations: per Instructions/Follow-up section Shower/Bathe: no limitations . Instructions / Follow-Up Instructions / Follow-Up Hospital Course: This is a patient with recurrent small bowel obstruction and ileus. Presented to hospital with abdominal discomfort and SBo symptoms and on CT abdomen with markedly dilated and fluid-filled proximal to mid small bowel as well as the stomach consistent with a high-grade small bowel obstruction. Patient had NG tube with suctioning which was then discontinued between the night time o 01/06/18 to 01/07/18 after NG tube access to stomach was lost and NG tube had to be removed. Patient then started to have bowel movements and is eating a diet. Patient has daily KUB exams with KUB on 01/08/18 in comparison to 01/07/2018 showing radiographically presence of ileus FINDINGS: Extensive lumbosacral posterior fusion hardware. The right spinal gia remains fractured. There are postoperative changes within the right hemipelvis and a right hip stenosis. Old, healed left iliac wing and left pubic ring fractures. Gas-filled mildly distended colon has increased. There are few gas-filled mildly dilated loops of small bowel. There is also gas filled moderately distended stomach. No renal calculi. No ureteral calculi. No pneumoperitoneum or pneumatosis. IMPRESSION: 1. Slight progression of the gas-filled mildly distended stomach, small bowel, and large bowel. This could represent an ileus. 2. The right lumbar spinal gia remains fractured Discharge instructions Patient was advised that upon discharge to home she should minimize narcotic pain medications to treat her history of chronic back pain in order to prevent recurrent Small bowel obstruction or ileus Patient advised to eat small amounts of food at a time with meals as tolerated History of paroxysmal supraventricular tachycardia, continue metoprolol Patient is to follow up on 01/12/18 at 11 AM with primary care physician, Dr. Murillo [address] [place] [id number] Current Hospital Diet Patient's current hospital diet: Regular Diet, Low Fiber Diet Discharge Diet Recommended Diet: Regular Diet, Low Fiber Diet Pending Studies Studies pending at discharge: no Laboratory Results 01/08/18 08:37 Red Blood Count 4.05, Mean Corpuscular Volume 77.3, Mean Corpuscular Hemoglobin 24.2, Mean Corpuscular Hemoglobin Concent 31.3, Mean Platelet Volume 8.4, Neutrophils (%) (Auto) 59.7, Lymphocytes (%) (Auto) 26.8, Monocytes (%) (Auto) 12.5, Eosinophils (%) (Auto) 0.6, Basophils (%) (Auto) 0.2, Neutrophils # (Auto ) 4.78, Lymphocytes # (Auto) 2.15, Monocytes # (Auto) 1.00, Eosinophils # (Auto ) 0.05, Basophils # (Auto) 0.02 01/08/18 08:37 Test 01/04/18 23:48 01/05/18 04:40 01/06/18 08:27 01/07/18 06:29 Direct Bilirubin 0.1 mg/dl (0-0.2) Lipase 322 U/L (73-393) Urine Color YELLOW Urine Appearance CLOUDY (CLEAR) Urine pH 7.0 (4.5-7.5) Urine Specific [place] 1.039 (1.000-1.030) Urine Protein TRACE (NEG) Urine Glucose (UA) NEG (NEG) Urine Ketones 3+ (NEG) Urine Occult Blood NEG (NEG) Urine Nitrite NEG (NEG) Urine Bilirubin NEG (NEG) Urine Urobilinogen NEG (NEG) Urine Leukocyte Esterase TRACE (NEG) Urine WBC (Auto) 1-5 /hpf (0-5) Urine RBC (Auto) 10-30 /hpf (0-4) Urine Hyaline Casts (Auto) 0 /lpf (0-5) Urine Epithelial Cells (Auto) 10-20 /lpf (0-5) Urine Bacteria (Auto) NEG (NEG) Polychromasia 1+ Hypochromasia PRESENT Poikilocytosis PRESENT Total Bilirubin 0.3 mg/dl (0.2-1) Aspartate Amino Transf (AST/SGOT) 11 U/L (15-37) Alanine Aminotransferase (ALT/SGPT) 10 U/L (12-78) Alkaline Phosphatase 64 U/L (45-117) Total Protein 6.7 gm/dl (6.4-8.2) Albumin 2.6 gm/dl (3.4-5.0) Globulin 4.1 gm/dl (2.5-4.0) Albumin/Globulin Ratio 0.6 (0.9-2) Magnesium Level 2.0 mg/dl (1.8-2.4) Test 01/08/18 08:37 White Blood Count 8.02 K/uL (4.8-10.8) Red Blood Count 4.05 M/uL (4.2-5.4) Hemoglobin 9.8 g/dL (12.0-16.0) Hematocrit 31.3 % (37-47) Mean Corpuscular Volume 77.3 fL (80-100) Mean Corpuscular Hemoglobin 24.2 pg (25-34) Mean Corpuscular Hemoglobin Concent 31.3 g/dl (32-36) Platelet Count 467 K/uL (130-400) Mean Platelet Volume 8.4 fL (7.4-10.4) Neutrophils (%) (Auto) 59.7 % Lymphocytes (%) (Auto) 26.8 % Monocytes (%) (Auto) 12.5 % Eosinophils (%) (Auto) 0.6 % Basophils (%) (Auto) 0.2 % Neutrophils # (Auto) 4.78 K/uL (1.4-6.5) Lymphocytes # (Auto) 2.15 K/uL (1.2-3.4) Monocytes # (Auto) 1.00 K/uL (0.11-0.59) Eosinophils # (Auto) 0.05 K/uL (0-0.5) Basophils # (Auto) 0.02 K/uL (0-0.2) RDW Standard Deviation 46.3 fL (36.4-46.3) RDW Coefficient of Variation 16.5 % (11.5-14.5) Immature Granulocyte % (Auto) 0.2 % Immature Granulocyte # (Auto) 0.02 K/uL (0.00-0.02) Anion Gap 9.0 mmol/L (3-11) Est Creatinine Clear Calc Drug Dose 92.1 ml/min Estimated GFR () 118.6 Estimated GFR (Non- 102.3 BUN/Creatinine Ratio 9.1 (10-20) Calcium Level 9.0 mg/dl (8.5-10.1) Date/Time Source Procedure Growth Status 01/05/18 04:40 Urine , Clean Catch Urine Culture - Final THREE TYPES OF ORGANISMS PRESENT, ALL... Complete Hemoglobin A1c Test 11/16/17 05:25 Range/Units Estimated Average Glucose 103 mg/dl Hemoglobin A1c 5.2 4.5-5.6 % Lipid Panel Test 12/08/17 08:20 Range/Units Triglycerides Level 86 0-150 mg/dl Medical Emergencies . Who to Call and When: Medical Emergencies: If at any time you feel your situation is an emergency, please call 911 immediately. . Non-Emergent Contact Non-Emergency issues call your: Primary Care Provider . . "Provider Documentation" section prepared by Michael Ndiaye. . VTE Core Measure Inpt VTE Proph given/why not?: SCD's
--- NOTE | 2018-01-08 13:10 | Discharge Summary ---
Discharge Summary Date of Service Jan 08, 2018. Discharge Summary Admission Date: Jan 05, 2018 at 01:21 Discharge Date: Jan 08, 2018 Discharge Disposition: Home Principal Diagnosis: Small bowel obstruction, Ileus Medication Reconciliation Continued Medications: Albuterol (Ventolin Hfa) 60 Puffs/5400 Mcg Aers 2 PUFFS INH UD PRN for Wheezing Aripiprazole (Abilify) 30 Mg Tab 30 MG PO QAM, TAB Baclofen (Baclofen) 10 Mg Tab 10 MG PO TID Buspirone Hcl (Buspirone Hcl) 10 Mg Tab 10 MG PO BID, TAB Calcium Carbonate-Vitamin D (Oscal 500/200 D-3) 1 Tab Tab 1 TAB PO DAILY Cetirizine (Zyrtec) 10 Mg Tab 10 MG PO QAM, TAB Cyclobenzaprine Hcl (Flexeril) 10 Mg Tab 10 MG PO TID PRN for Muscle Spasm, TAB Dicyclomine Hcl (Dicyclomine Hcl) 10 Mg Cap 10 MG PO BID, CAP Famotidine (Pepcid) 40 Mg Tab 40 MG PO DAILY Fentanyl (Fentanyl) 25 Mcg Tdsy 25 MCG TOP [id number] Formoterol Fumarate (Perforomist) 20 Mcg/2 Ml Nebu 20 MCG NEB UD PRN for Wheezing Furosemide (Lasix) 20 Mg Tab 20 MG PO DAILY PRN for SWELLING, TAB Gabapentin (Neurontin) 300 Mg Cap 300 MG PO TID, CAP Lamotrigine (Lamictal) 25 Mg Tab 25 MG PO BID, TAB Lamotrigine (Lamictal) 100 Mg Tab 100 MG PO BID, TAB Lorazepam (Lorazepam) 1 Mg Tab 1 MG PO BID PRN for Anxiety Lubiprostone (Amitiza) 24 Mcg Cap 24 MCG PO BID, CAP Metoclopramide Hcl (Reglan) 5 Mg Tab 5 MG PO ACHS, TAB Metoprolol Succinate (Toprol Xl) 25 Mg Tabcr 25 MG PO QAM, TAB Montelukast Sodium (Singulair) 10 Mg Tab 10 MG PO HS, TAB Multivitamin (Multivitamin) Tab 1 TAB PO QAM, TAB Ocuvite Preservision (Ocuvite Preservision) 1 Tab Tab 1 TAB PO DAILY, TAB Ondansetron (Ondansetron Odt) 8 Mg Soltab 8 MG SL Q8 PRN for Nausea Polyethylene Glycol 3350 (Miralax) 1 Pow Pow 17 GM PO DAILY PRN for Constipation, GM Potassium Chloride (Micro-K Ext Rel) 10 Meq Capcr 10 MEQ PO DAILY PRN for Take When Lasix is Taken, CAP Admission Information HPI (per Admitting provider): CHIEF COMPLAINT: Abdominal pain. HISTORY OF PRESENT ILLNESS: History obtained from patient and records. Medical history significant for chronic back pain on Fentanyl patch, PSVT sp ablation, COPD, past tobacco and alcohol abuse, gastroparesis per records, HCV status post treatment, history of MRSA, chronic anemia (baseline hemoglobin of 9). Recent confinement 2 weeks ago for recurrent bowel obstruction. Resolved with conservative management. Yesterday, the patient had burning generalized abdominal discomfort, distention, some nausea. No emesis. Good bowel movement. At the Emergency Room, NG inserted for recurrent bowel obstruction. Patient still complaining of the "worst abdominal pain." Physical Exam (per Admitting): PHYSICAL EXAMINATION: VITAL SIGNS: Blood pressure was noted to be 121/80, pulse rate 105, RR 26, T 37, and sats 98 on room air. GENERAL: Noted to be uncomfortable and tearful, in no respiratory distress. SKIN: Pallor, warm. HEENT: Pale palpebral conjunctivae. No ptosis. Dry mucosa. NGT in place. NECK: Supple, nontender. CHEST: Decreased breath sounds, no tenderness . HEART: Tachycardic. No murmur. ABDOMEN: Some distention. Healed incisional scars. Nonspecific tenderness on light palpation. EXTREMITIES: no edema . No gross deformities. No tenderness. NEUROLOGIC: Coherent. No gross focality. Hospital Course Hospital Course: This is a patient with recurrent small bowel obstruction and ileus. Presented to hospital with abdominal discomfort and SBo symptoms and on CT abdomen with markedly dilated and fluid-filled proximal to mid small bowel as well as the stomach consistent with a high-grade small bowel obstruction. Patient had NG tube with suctioning which was then discontinued between the night time o 01/06/18 to 01/07/18 after NG tube access to stomach was lost and NG tube had to be removed. Patient then started to have bowel movements and is eating a diet. Patient has daily KUB exams with KUB on 01/08/18 in comparison to 01/07/2018 showing radiographically presence of ileus FINDINGS: Extensive lumbosacral posterior fusion hardware. The right spinal gia remains fractured. There are postoperative changes within the right hemipelvis and a right hip stenosis. Old, healed left iliac wing and left pubic ring fractures. Gas-filled mildly distended colon has increased. There are few gas-filled mildly dilated loops of small bowel. There is also gas filled moderately distended stomach. No renal calculi. No ureteral calculi. No pneumoperitoneum or pneumatosis. IMPRESSION: 1. Slight progression of the gas-filled mildly distended stomach, small bowel, and large bowel. This could represent an ileus. 2. The right lumbar spinal gia remains fractured Discharge instructions Patient was advised that upon discharge to home she should minimize narcotic pain medications to treat her history of chronic back pain in order to prevent recurrent Small bowel obstruction or ileus Patient advised to eat small amounts of food at a time with meals as tolerated History of paroxysmal supraventricular tachycardia, continue metoprolol Patient is to follow up on 01/12/18 at 11 AM with primary care physician, Dr. Murillo [address] [place] [address] Total time spent on discharge = 60 minutes This includes examination of the patient, discharge planning, medication reconciliation, and communication with other providers. Discharge Instructions see above
[2018-01-08 13:37] VITALS: BP 117/77; PULSE 83; TEMP 37.2; O2SAT 98
== END 2018-01-08 14:53 | disposition home health service (06) | DRG 389 ==
LOC: C.EDB 18:47 → C.MSN 01-05 01:21 → ENRESERV 01-05 01:38
PROVIDERS: ADMIT Internal Medicine; ATTEND Hospitalist
DX: K56.609 Unspecified intestinal obstruction, unspecified as to partial versus complete obstruction (principal); I47.1 Supraventricular tachycardia; K56.7 Ileus, unspecified; E87.6 Hypokalemia; T50.2X5A Adverse effect of carbonic-anhydrase inhibitors, benzothiadiazides and other diuretics, initial encounter; G89.29 Other chronic pain; M54.9 Dorsalgia, unspecified; K31.84 Gastroparesis; D64.9 Anemia, unspecified; F10.11 Alcohol abuse, in remission; Z98.1 Arthrodesis status; Z86.14 Personal history of Methicillin resistant Staphylococcus aureus infection; Z87.891 Personal history of nicotine dependence; Z79.899 Other long term (current) drug therapy; Z79.891 Long term (current) use of opiate analgesic; Z88.1 Allergy status to other antibiotic agents; Z88.8 Allergy status to other drugs, medicaments and biological substances

== ENCOUNTER 2018-03-20 14:09 | Inpatient (IN) | payer OTHER ==
[2018-03-19 22:47] VITALS: BP 101/69; PULSE 80; TEMP 37; O2SAT 94
[~2018-03-20] VITALS: Ht 157.5 cm; Wt 61.0 kg
[~2018-03-20 14:09] MED LIST changes: +ATV1 PO; -BACL10TA PO; -BNT20 PO; +DICY10CA12 PO; -FENT25DI10 TD; +FNTTP25 TOP; -LORA1TAB13 PO; +LRS10 PO; -ONDA8TAB6 PO; +ZFRODT/8 SL
[2018-03-20] MEDS ORDERED: ONDANSETRON INJ 2 MG/ML 2 ML VIAL IV STA (14:33)
[2018-03-20] MEDS ORDERED: LAMO150T PO (14:53)
[2018-03-20] MEDS ORDERED: IBUP-1459 PO (14:53)
[2018-03-20] MEDS ORDERED: CLR10 PO (14:53)
[2018-03-20] MEDS ORDERED: PRLSR20 PO (14:53)
[2018-03-20] MEDS ORDERED: LPR25 PO (14:53)
[2018-03-20 16:11] LABS: ALBUMIN 3.4 gm/dl (3.4-5.0); CALCIUM 8.8 mg/dl (8.5-10.1); CREATININE 0.67 mg/dl (0.60-1.20); POTASSIUM 4.1 mmol/L (3.5-5.1)
[2018-03-20 16:14] LABS: BASO % 0.2 %; BASO ABS # 0.01 K/uL (0-0.2); EOS % 0.5 %; EOS ABS # 0.03 K/uL (0-0.5); HEMATOCRIT 34.9 % (37-47); HEMOGLOBIN 10.8 g/dL (12.0-16.0); IG# 0.01 K/uL (0.00-0.02); LYMPH % 35.3 %; LYMPH ABS # 2.12 K/uL (1.2-3.4); MEAN CORPUSCULAR HEMOGLOBIN 23.5 pg (25-34); MEAN CORPUSCULAR HGB CONC 30.9 g/dl (32-36); MEAN PLATELET VOLUME 8.7 fL (7.4-10.4); NEUT % 48.8 %; NEUT ABS # 2.94 K/uL (1.4-6.5); PLATELET COUNT 358 K/uL (130-400); RED CELL DISTRIBUTION WIDTH CV 17.3 % (11.5-14.5); RED CELL DISTRIBUTION WIDTH SD 48.1 fL (36.4-46.3); TOTAL PROTEIN 8.1 gm/dl (6.4-8.2); WHITE BLOOD COUNT 6.01 K/uL (4.8-10.8)
--- NOTE | 2018-03-20 16:17 | DIAGNOSTIC IMAGING REPORT ---
ABD/PELVIS NO IV OR ORAL CONT CLINICAL HISTORY: 57 years-old Female presenting with eval for obstruction, generalized abdominal pain, history of small bowel obstruction. TECHNIQUE: Multidetector CT of the abdomen and pelvis was performed without the use of intravenous contrast. IV contrast: None. A dose lowering technique was used consistent with the principles of ALARA (as low as reasonably achievable). COMPARISON: 01/05/2018. CT DOSE (mGy.cm): The estimated cumulative dose is 348.66 mGy.cm. FINDINGS: [employer] topogram: Gaseous distended bowel. Extensive orthopedic hardware. Lung bases: Minimal basilar opacities, likely atelectasis. The intraventricular blood pool is less dense and adjacent myocardium suggesting anemia. Normal heart size. No pericardial or pleural effusion. Liver: Normal morphology. Normal density. Parenchymal calcification noted in the gallbladder fossa. Biliary: No gross biliary ductal dilatation allowing for noncontrast technique. Normal gallbladder. Pancreas: Mild parenchymal atrophy. Spleen: Normal noncontrast appearance. Adrenal glands: Normal noncontrast appearance. Kidneys and ureters: Normal noncontrast appearance. No nephrolithiasis. No hydronephrosis. Normal ureters. Bladder: Normal. Pelvic organs: Normal noncontrast appearance. Bowel: Redundant sigmoid colon. Mild stool burden. Gaseous distention of colon. The cecum is redundant. The appendix is normal. Small hiatal hernia. Stomach is distended. Proximal small bowel tapers smoothly to a dilated caliber in the right abdomen. Anastomotic suture line may be present at this level (series 3 image 217). There is tapering of small bowel to a less dilated caliber and mid abdomen. Peritoneal cavity: No free fluid or intraperitoneal gas. Lymph nodes: No gross lymphadenopathy allowing for noncontrast technique. Vasculature: Aorta and IVC patent and normal in caliber. Abdominal wall: Diastasis of the rectus abdominis. Postsurgical changes of the umbilical abdominal wall. Musculoskeletal: Compression fracture deformity of L2, unchanged. Extensive internal fixation hardware with posterior lumbar fusion, bilateral extension of the fusion hardware to the iliac wings, plate and screw fixation of the right ilium, and total right hip arthroplasty. Old fracture deformities of the pubic rami. IMPRESSION: 1. Dilated small bowel though less severely than on the prior exam with a pattern suggestive of partial small bowel obstruction. There are fairly smooth transitions to less dilated bowel both upstream and downstream though adhesions are suspected at the downstream transition point in the mid abdomen. The location of potential obstruction is identical to the prior exam. Evaluation limited by noncontrast technique. 2. Extensive internal fixation hardware. Electronically signed by: Iggy Girard M.D. 03/20/2018 4:16 PM Dictated Date/Time: 03/20/2018 3:56 PM
--- NOTE | 2018-03-20 17:28 | EMERGENCY ROOM VISIT NOTE ---
History Report prepared by Tonya: Elvia Garcia Under the Supervision of: Dr. John Paul Mitchell M.D. First contact with patient: 14:26 Chief Complaint: ABDOMINAL PAIN Stated Complaint: ABDOMINAL PAIN, ABDOMINAL DISTENTION History of Present Illness The patient is a 57 year old female who presents to the Emergency Room with complaints of constant abdominal pain beginning yesterday. She describes her pain as "burning and distended" and notes it feels like her past bowel obstructions. Her last bowel movement was this morning at 0430. She states it was loose and she received some milk of magnesium. She denies any fevers. She had an xray done earlier today which showed an abdominal ileus versus partial or impending bowel obstruction with small and large bowel gas, with distention of bowel loops in the lower abdomen and pelvis. Source of History: patient Onset: 1325 today Position: abdomen Quality: burning Timing: constant Associated Symptoms: + nausea, No vomiting Review of Systems See HPI for pertinent positives & negatives. A total of 10 systems reviewed and were otherwise negative. Past Medical & Surgical Medical Problems: (1) Abscess of right hip (2) Anxiety (3) Bipolar disorder (4) Bipolar Disorder, Unspecified (5) Cervicalgia (6) Chronic alcoholism in remission (7) Chronic back pain (8) Chronic headache (9) Chronic hepatitis C (10) Chronic obstructive lung disease (11) Chronic urinary urge incontinence (12) Closed head injury (13) Depression (14) Gastroesophageal reflux disease (15) Gastroparesis (16) History of aspiration pneumonia (17) History of Clostridium difficile colitis (18) History of drug abuse (19) History of sepsis (20) History of supraventricular tachycardia (21) Incisional abscess (22) Lumbago (23) Osteoarthritis (24) Osteoarthritis of hip (25) Osteoporosis (26) Pancreatitis (27) Partial small bowel obstruction (28) PTSD (post-traumatic stress disorder) (29) SBO (small bowel obstruction) (30) seroma Right hip (31) Small bowel obstruction (32) SVT (supraventricular tachycardia) (33) Ulnar neuropathy Surgical Problems: (1) Bladder Repair (2) H/O colonoscopy (3) H/O cystoscopy (4) H/O esophagogastroduodenoscopy (5) H/O sinus surgery (6) History of hip surgery (7) Right Tibia/Fibula Repair (8) S/P cervical spinal fusion (9) s/p colonoscopy (10) s/p cystoscopy (11) s/p EGD (12) S/p esophagogastric fundoplasty (13) s/p laparoscopic fundoplication hiatal hernia (14) S/p lumbar decompression/fusion (15) S/P ORIF (open reduction internal fixation) fracture (16) s/p reconstruction hip socket (17) s/p tonsillectomy (18) S/P tonsillectomy and adenoidectomy (19) s/p tubal ligation (20) S/P tubal ligation Family History Diabetes mellitus FATHER GRANDMOTHER FH: colon cancer GRANDMOTHER Gallbladder disease Heart disease Hypertension FATHER MOTHER Kidney disease Kidney stones Social History Smoking Status: Never Smoker Alcohol Use: none Drug Use: none, other Marital Status: Housing Status: lives with family Occupation Status: disabled Current/Historical Medications Scheduled Buspirone Hcl (Buspirone Hcl), 20 MG PO TID Cyclobenzaprine Hcl (Flexeril), 10 MG PO BID Dicyclomine Hcl (Dicyclomine Hcl), 10 MG PO BID Ibuprofen (Motrin), 400 MG PO TID Lamotrigine (Lamictal), 150 MG PO BID Loratadine (Claritin), 10 MG PO DAILY Metoclopramide Hcl (Reglan), 5 MG PO BID Metoprolol Tartrate (Lopressor), 25 MG PO DAILY Omeprazole (Prilosec), 20 MG PO DAILY Allergies Coded Allergies: Hydroxyzine (Verified Allergy, Severe, THROAT CONSTRICTS/CAN NOT VOID, ) Propiomazine (Unverified Allergy, Unknown, UNKNOWN, 03/20/18) Clarithromycin (Verified Adverse Reaction, Intermediate, vomiting, 12/16/17 ) Lisinopril (Verified Adverse Reaction, Mild, Cough, 12/16/17) Reported by PT. Chlorpromazine (Verified Adverse Reaction, Unknown, LIGHTHEADED DIZZY, ) Physical Exam Vital Signs Date Time Temp Pulse Resp B/P (MAP) Pulse Ox O2 Delivery O2 Flow Rate FiO2 03/20/18 15:46 95 19 111/82 99 Room Air 03/20/18 14:22 37.1 101 18 117/81 92 Room Air Physical Exam Constitutional: Vital signs reviewed. Eyes: Pupils are equal round reactive to light. Conjunctiva are noninjected. ENT: Pharynx is clear without erythema or exudate. Mucous membranes are moist. Neck supple without meningeal signs. Respiratory: Clear to auscultation bilaterally. Breath sounds are equal bilaterally. Cardiovascular: Regular rate and rhythm. No rubs or gallops. GI: Soft, nondistended and mild diffuse abdominal tenderness. No guarding. Musculoskeletal: No peripheral edema. No lower extremity tenderness. Integumentary: No cyanosis. Neurological: The patient is awake and alert. No focal deficits. Psychiatric: Normal affect. Medical Decision & Procedures ER Provider Diagnostic Interpretation: Radiology results as stated below per my review and the radiologist's interpretation: ABD/PELVIS NO IV OR ORAL CONT CLINICAL HISTORY: 57 years-old Female presenting with eval for obstruction, generalized abdominal pain, history of small bowel obstruction. TECHNIQUE: Multidetector CT of the abdomen and pelvis was performed without the use of intravenous contrast. IV contrast: None. A dose lowering technique was used consistent with the principles of ALARA (as low as reasonably achievable). COMPARISON: 01/05/2018. CT DOSE (mGy.cm): The estimated cumulative dose is 348.66 mGy.cm. FINDINGS: Under Sheriff topogram: Gaseous distended bowel. Extensive orthopedic hardware. Lung bases: Minimal basilar opacities, likely atelectasis. The intraventricular blood pool is less dense and adjacent myocardium suggesting anemia. Normal heart size. No pericardial or pleural effusion. Liver: Normal morphology. Normal density. Parenchymal calcification noted in the gallbladder fossa. Biliary: No gross biliary ductal dilatation allowing for noncontrast technique. Normal gallbladder. Pancreas: Mild parenchymal atrophy. Spleen: Normal noncontrast appearance. Adrenal glands: Normal noncontrast appearance. Kidneys and ureters: Normal noncontrast appearance. No nephrolithiasis. No hydronephrosis. Normal ureters. Bladder: Normal. Pelvic organs: Normal noncontrast appearance. Bowel: Redundant sigmoid colon. Mild stool burden. Gaseous distention of colon. The cecum is redundant. The appendix is normal. Small hiatal hernia. Stomach is distended. Proximal small bowel tapers smoothly to a dilated caliber in the right abdomen. Anastomotic suture line may be present at this level (series 3 image 217). There is tapering of small bowel to a less dilated caliber and mid abdomen. Peritoneal cavity: No free fluid or intraperitoneal gas. Lymph nodes: No gross lymphadenopathy allowing for noncontrast technique. Vasculature: Aorta and IVC patent and normal in caliber. Abdominal wall: Diastasis of the rectus abdominis. Postsurgical changes of the umbilical abdominal wall. Musculoskeletal: Compression fracture deformity of L2, unchanged. Extensive internal fixation hardware with posterior lumbar fusion, bilateral extension of the fusion hardware to the iliac wings, plate and screw fixation of the right ilium, and total right hip arthroplasty. Old fracture deformities of the pubic rami. IMPRESSION: 1. Dilated small bowel though less severely than on the prior exam with a pattern suggestive of partial small bowel obstruction. There are fairly smooth transitions to less dilated bowel both upstream and downstream though adhesions are suspected at the downstream transition point in the mid abdomen. The location of potential obstruction is identical to the prior exam. Evaluation limited by noncontrast technique. 2. Extensive internal fixation hardware. Electronically signed by: Iggy Girard M.D. 03/20/2018 4:16 PM Laboratory Results 03/20/18 15:40 Red Blood Count 4.59, Mean Corpuscular Volume 76.0, Mean Corpuscular Hemoglobin 23.5, Mean Corpuscular Hemoglobin Concent 30.9, Mean Platelet Volume 8.7, Neutrophils (%) (Auto) 48.8, Lymphocytes (%) (Auto) 35.3, Monocytes (%) (Auto) 15.0, Eosinophils (%) (Auto) 0.5, Basophils (%) (Auto) 0.2, Neutrophils # (Auto ) 2.94, Lymphocytes # (Auto) 2.12, Monocytes # (Auto) 0.90, Eosinophils # (Auto ) 0.03, Basophils # (Auto) 0.01 03/20/18 15:40 Test 03/20/18 14:35 03/20/18 15:40 Urine Color YELLOW Urine Appearance CLEAR (CLEAR) Urine pH 6.0 (4.5-7.5) Urine Specific [place] 1.014 (1.000-1.030) Urine Protein NEG (NEG) Urine Glucose (UA) NEG (NEG) Urine Ketones NEG (NEG) Urine Occult Blood NEG (NEG) Urine Nitrite NEG (NEG) Urine Bilirubin NEG (NEG) Urine Urobilinogen NEG (NEG) Urine Leukocyte Esterase LARGE (NEG) Urine WBC (Auto) >30 /hpf (0-5) Urine RBC (Auto) 0-4 /hpf (0-4) Urine Hyaline Casts (Auto) 1-5 /lpf (0-5) Urine Epithelial Cells (Auto) 5-10 /lpf (0-5) Urine Bacteria (Auto) NEG (NEG) White Blood Count 6.01 K/uL (4.8-10.8) Red Blood Count 4.59 M/uL (4.2-5.4) Hemoglobin 10.8 g/dL (12.0-16.0) Hematocrit 34.9 % (37-47) Mean Corpuscular Volume 76.0 fL (80-100) Mean Corpuscular Hemoglobin 23.5 pg (25-34) Mean Corpuscular Hemoglobin Concent 30.9 g/dl (32-36) Platelet Count 358 K/uL (130-400) Mean Platelet Volume 8.7 fL (7.4-10.4) Neutrophils (%) (Auto) 48.8 % Lymphocytes (%) (Auto) 35.3 % Monocytes (%) (Auto) 15.0 % Eosinophils (%) (Auto) 0.5 % Basophils (%) (Auto) 0.2 % Neutrophils # (Auto) 2.94 K/uL (1.4-6.5) Lymphocytes # (Auto) 2.12 K/uL (1.2-3.4) Monocytes # (Auto) 0.90 K/uL (0.11-0.59) Eosinophils # (Auto) 0.03 K/uL (0-0.5) Basophils # (Auto) 0.01 K/uL (0-0.2) RDW Standard Deviation 48.1 fL (36.4-46.3) RDW Coefficient of Variation 17.3 % (11.5-14.5) Immature Granulocyte % (Auto) 0.2 % Immature Granulocyte # (Auto) 0.01 K/uL (0.00-0.02) Anion Gap 8.0 mmol/L (3-11) Est Creatinine Clear Calc Drug Dose 79.7 ml/min Estimated GFR () 113.1 Estimated GFR (Non- 97.6 BUN/Creatinine Ratio 25.9 (10-20) Calcium Level 8.8 mg/dl (8.5-10.1) Total Bilirubin 0.3 mg/dl (0.2-1) Direct Bilirubin 0.2 mg/dl (0-0.2) Aspartate Amino Transf (AST/SGOT) 12 U/L (15-37) Alanine Aminotransferase (ALT/SGPT) 14 U/L (12-78) Alkaline Phosphatase 85 U/L (45-117) Total Protein 8.1 gm/dl (6.4-8.2) Albumin 3.4 gm/dl (3.4-5.0) Lipase 86 U/L (73-393) Laboratory results as reviewed by me. Medications Administered Medications (Trade) Dose Ordered Sig/Jennifer Route Start Time Stop Time Status Last Admin Dose Admin Ondansetron HCl (Zofran Inj) 4 mg NOW STAT IV 03/20/18 14:33 03/20/18 14:36 DC 03/20/18 15:45 4 MG ED Course 1428: The patient was evaluated in room B6. A complete history and physical exam was performed. 1433: Ordered Zofran Inj 4 mg IV 1628: I spoke with Dr. Chico Guillen Hospitalist. We discussed the patient and her results. The patient will be further evaluated by her. Medical Decision This is a 57-year-old female who presents with abdominal pain. Differential diagnosis includes ileus, small bowel obstruction, partial bowel obstruction, irritable bowel syndrome, adhesions. I did perform a limited focused review of portions of the patient's old chart on the electronic medical record. The patient has had no recent pertinent visits to this hospital. I did evaluate the patient as noted above. IV access was established. I did treat patient with Zofran IV. Urinalysis is unremarkable. I did order and review the patient's blood work as noted in the electronic medical record. I did order a CT of the abdomen and pelvis. I did review the images myself as well as the radiology report as described above. The patient does have a partial bowel obstruction. I did order an NG tube. I did discuss case with the hospitalist and case folder. I did discuss test results with the patient. Medication Reconcilliation Current Medication List: was personally reviewed by me Blood Pressure Screening Patient's blood pressure: Normal blood pressure Blood pressure disposition: Did not require urgent referral Consults Time Called: 1625 Consulting Physician: Wilmer Martínez Hospitalist Returned Call: [address] Chico Guillen Hospitalist. We discussed the patient and her results. The patient will be further evaluated by her. Impression Primary Impression: Partial small bowel obstruction Scribe Attestation The scribe's documentation has been prepared under my direct and personally reviewed by me in its entirety. I confirm that the note above accurately reflects all work, treatment, procedures, and medical decision making performed by me. Departure Information Dispostion Being Evaluated By Hospitalist (Dr. Chico Guillen [facility]) Referrals No Doctor, Assigned (PCP) Patient Instructions My [facility]
[2018-03-20] MEDS ORDERED: ONDANSETRON INJ 2 MG/ML 2 ML VIAL IV PRN (17:45)
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
[2018-03-20] MEDS ORDERED: IV FLUIDS COMPLETED PRN (18:15)
[2018-03-20 18:46] VITALS: BP 122/86; PULSE 90; TEMP 36.8; O2SAT 97; Ht 157.5 cm; Wt 61.0 kg
[2018-03-20] MEDS: D5NSS + 20MEQ KCL 1,000 ML IV SCH (20:24)
[2018-03-20] MEDS: ACETAMINOPHEN IV 650 MG in EMPTY BAG 0 ML IV PRN (21:30)
[2018-03-20] MEDS ORDERED: METOPROLOL TARTRATE 25 MG TAB PO ONE (22:16)
[2018-03-20] MEDS ORDERED: LORAZEPAM 0.5 MG TAB PO STA (22:18)
[2018-03-20 23:06] VITALS: BP 108/73; PULSE 91; TEMP 36.8; O2SAT 95
[2018-03-21] MEDS: ACETAMINOPHEN IV 650 MG in EMPTY BAG 0 ML IV PRN (03:36)
[2018-03-21] MEDS: D5NSS + 20MEQ KCL 1,000 ML IV SCH ×2 (04:58→15:06)
[2018-03-21] MEDS: MoRPHine SULFATE 4 MG/ML 1 ML CARP\\VIAL IV PRN ×5 (05:05→23:58)
[2018-03-21 07:01] VITALS: BP 116/78; PULSE 81; TEMP 36.8; O2SAT 98
[2018-03-21 08:40] VITALS: BP 108/73; PULSE 83
[2018-03-21] MEDS: ENOXAPARIN 40 MG/0.4 ML SYR SQ SCH (08:50)
[2018-03-21] MEDS: LORATADINE 10 MG TAB PO SCH (08:50)
[2018-03-21] MEDS: METOPROLOL TARTRATE 25 MG TAB PO SCH ×2 (08:51→20:04)
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
[2018-03-21 14:59] VITALS: BP 101/69; PULSE 83; TEMP 37; O2SAT 95
[2018-03-21] MEDS ORDERED: MoRPHine SULFATE 2 MG/ML CARP ONE ×2 (15:00→20:02)
--- NOTE | 2018-03-21 16:10 | Progress Note ---
Medicine Progress Note Date & Time of Visit: March 21, 2018 at 16:07. Subjective 57-year-old female with history of abdominal surgery and recurrent SBO presents with abdominal pain. She reports no feeling of hunger, and although pain has improved, it is still present and is now described as a burning pain. She is otherwise doing well. Objective Last 8 Hrs Date Time Temp Pulse Resp B/P (MAP) Pulse Ox O2 Delivery O2 Flow Rate FiO2 03/21/18 15:31 Room Air 03/21/18 14:59 37.0 83 17 101/69 (80) 95 Room Air 03/21/18 08:40 83 108/73 (85) Physical Exam: GEN: WNWD, in no acute distress, alert and appropriate HEENT: NC/AT, normal sclerae, MMM CARDIO: reg rate, S1/2 heard without m/g/r LUNGS: CTA bilaterally, no crackles, rales or wheezes, good diaphragmatic excursion ABD: soft, generalized tenderness to palpation, non-distended, no rebound or guarding EXTREMITY: RP and DP palpable 2+ bilat, no LE swelling or edema, extremities are warm and well-perfused NEURO: CN 2-12 grossly intact MUSC: moves all extremities with ease, no gross focal deficits. SKIN: warm and dry Assessment & Plan 57-year-old female with history of abdominal surgery and recurrent SBO presents with abdominal pain. She reports no feeling of hunger, and although pain has improved, it is still present and is now described as a burning pain. She is otherwise doing well. 1. Partial SBO-likely secondary to scar tissue from abdominal surgeries in the past. The patient is currently not vomiting and is in no acute distress. Supportive care with antiemetics, pain meds and IV fluids for now. 2. Gastroparesis-holding Reglan at this time while npo. 3. Chronic pain-holding ibuprofen 3 times daily and Flexeril 3 times daily. Morphine as needed for pain as well as Tylenol IV as needed 4. COPD-stable, patient not on inhalers consistently. No current symptoms and normal exam at this time. 5. History of MRSA-contact precautions DVT prophylaxis-Lovenox Full code Disposition to [facility] Dayana Lindsay DO [facility] hospitalist Current Inpatient Medications: Current Inpatient Medications Medications (Trade) Dose Ordered Sig/Jennifer Route Start Time Stop Time Status Last Admin Dose Admin Enoxaparin Sodium (Lovenox Inj) 40 mg DAILY SQ 03/21/18 09:00 04/20/18 08:59 03/21/18 08:50 40 MG Ondansetron HCl (Zofran Inj) 4 mg Q6H PRN IV 03/20/18 17:45 04/19/18 17:44 Acetaminophen 650 mg/Empty Bag 65 ml @ 260 mls/hr Q6H PRN IV 03/20/18 17:45 04/19/18 17:44 03/21/18 03:36 260 MLS/HR Morphine Sulfate (MoRPHine SULFATE INJ) 2 mg Q4H PRN IV 03/20/18 17:45 04/03/18 17:44 03/21/18 15:04 2 MG Potassium Chloride/Dextrose/ Sod Cl 1,000 ml @ 100 mls/hr Q10H IV 03/20/18 19:30 04/19/18 19:29 03/21/18 15:06 100 MLS/HR Miscellaneous (Iv Fluids Completed) 1 ea PRN PRN N/A 03/20/18 18:15 03/20/19 18:14 Lamotrigine (Lamictal Tab) 150 mg BID PO 03/21/18 09:00 04/20/18 08:59 03/21/18 08:50 150 MG Loratadine (Claritin Tab) 10 mg DAILY PO 03/21/18 09:00 04/20/18 08:59 03/21/18 08:50 10 MG Metoprolol Tartrate (Lopressor Tab) 12.5 mg BID PO 03/21/18 09:00 04/20/18 08:59 03/21/18 08:51 12.5 MG Buspirone HCl (Buspar Tab) 20 mg TID PO 03/21/18 09:00 04/20/18 08:59 03/21/18 13:26 20 MG
[2018-03-22] MEDS ORDERED: CYCLOBENZAPRINE HCL 10 MG TAB PO ONE (00:14)
[2018-03-22] MEDS: D5NSS + 20MEQ KCL 1,000 ML IV SCH ×3 (00:31→19:38)
[2018-03-22 06:33] LABS: HEMATOCRIT 29.6 % (37-47); HEMOGLOBIN 8.9 g/dL (12.0-16.0); MEAN CELL VOLUME 78.7 fL (80-100); MEAN CORPUSCULAR HEMOGLOBIN 23.7 pg (25-34); MEAN CORPUSCULAR HGB CONC 30.1 g/dl (32-36); MEAN PLATELET VOLUME 8.7 fL (7.4-10.4); PLATELET COUNT 293 K/uL (130-400); RED CELL DISTRIBUTION WIDTH CV 17.4 % (11.5-14.5); RED CELL DISTRIBUTION WIDTH SD 49.9 fL (36.4-46.3); WHITE BLOOD COUNT 4.13 K/uL (4.8-10.8)
[2018-03-22 07:05] LABS: CALCIUM 8.6 mg/dl (8.5-10.1); CREATININE 0.45 mg/dl (0.60-1.20); POTASSIUM 4.2 mmol/L (3.5-5.1)
[2018-03-22 07:22] VITALS: BP 111/74; PULSE 79; TEMP 36.7; O2SAT 95
[2018-03-22 07:40] VITALS: O2SAT 95
[2018-03-22] MEDS: MoRPHine SULFATE 4 MG/ML 1 ML CARP\\VIAL IV PRN ×4 (07:48→22:20)
[2018-03-22] MEDS: LORATADINE 10 MG TAB PO SCH (10:04)
[2018-03-22] MEDS: METOPROLOL TARTRATE 25 MG TAB PO SCH ×2 (10:06→21:30)
[2018-03-22] MEDS: ENOXAPARIN 40 MG/0.4 ML SYR SQ SCH (10:07)
[2018-03-22] MEDS ORDERED: GABAPENTIN 300 MG CAP PO ONE (11:19)
--- NOTE | 2018-03-22 11:20 | Surgery Progress Note ---
Surgery Progress Note Date of Service March 22, 2018. Subjective feeling better, hungry passing some gas, no bowel movement less bloating and pain Objective Vital Signs: Date Time Temp Pulse Resp B/P (MAP) Pulse Ox O2 Delivery O2 Flow Rate FiO2 03/22/18 07:40 95 03/22/18 07:22 36.7 79 18 111/74 (86) 95 Room Air 03/22/18 00:02 Room Air 03/21/18 15:31 Room Air 03/21/18 14:59 37.0 83 17 101/69 (80) 95 Room Air General Appearance: WD/WN, no apparent distress Head: normocephalic, atraumatic Neck: trachea midline Respiratory/Chest: lungs clear, normal breath sounds, no respiratory distress, no accessory muscle use Abdomen: soft, no organomegaly, no pulsatile mass, + distended, + tenderness ( left of midline incision), + pertinent finding (midline laparotomy scar present) Laboratory Results: Results Past 24 Hours Test 03/22/18 06:10 Range/Units White Blood Count 4.13 4.8-10.8 K/uL Red Blood Count 3.76 4.2-5.4 M/uL Hemoglobin 8.9 12.0-16.0 g/dL Hematocrit 29.6 37-47 % Mean Corpuscular Volume 78.7 80-100 fL Mean Corpuscular Hemoglobin 23.7 25-34 pg Mean Corpuscular Hemoglobin Concent 30.1 32-36 g/dl RDW Standard Deviation 49.9 36.4-46.3 fL RDW Coefficient of Variation 17.4 11.5-14.5 % Platelet Count 293 130-400 K/uL Mean Platelet Volume 8.7 7.4-10.4 fL Sodium Level 140 136-145 mmol/L Potassium Level 4.2 3.5-5.1 mmol/L Chloride Level 110 98-107 mmol/L Carbon Dioxide Level 23 21-32 mmol/L Anion Gap 7.0 3-11 mmol/L Blood Urea Nitrogen 4 7-18 mg/dl Creatinine 0.45 0.60-1.20 mg/dl Est Creatinine Clear Calc Drug Dose 118.6 ml/min Estimated GFR () 128.9 Estimated GFR (Non- 111.2 BUN/Creatinine Ratio 9.9 10-20 Random Glucose 86 70-99 mg/dl Calcium Level 8.6 8.5-10.1 mg/dl Magnesium Level 2.0 1.8-2.4 mg/dl Assessment & Plan Recurrent SBO, last admission in January, Surgery for SBO by Dr. Coello in November. -vitals stable, afebrile, no leukocytosis -passing flatus, no bowel movement - abdomen distended but minimal pain - no vomiting Plan: Continue conservative management: IV fluids, NPO, IV pain management and Zofran prn pain and nausea respectively May start clear liquids tomorrow if passing more flatus Encourage ambulation and OOB to chair Continue medical management will follow Dr. Campos has seen and examined pt, agrees with above
[2018-03-22 11:49] VITALS: BP 114/74; PULSE 75; TEMP 36.8; O2SAT 95
[2018-03-22 14:50] VITALS: BP 113/73; PULSE 77; TEMP 36.3; O2SAT 96
--- NOTE | 2018-03-22 17:58 | Progress Note ---
Medicine Progress Note Date & Time of Visit: March 22, 2018 at 11:27. Subjective 57-year-old female with history of abdominal surgery and recurrent SBO presents with abdominal pain. Pain has improved somewhat but she is still having it diffusely and required morphine agian this morning. She denies any significant feelings of hunger but states that she is getting there. +flatus, no BM. She also reports severe neuropathy in her R leg and pain in her hip for which she used to take gabapentin but this was taken frmo her when she was incarcerated a few months ago. she also reports a neck spasm on the right trapezoid area. Objective Last 8 Hrs Date Time Temp Pulse Resp B/P (MAP) Pulse Ox O2 Delivery O2 Flow Rate FiO2 03/22/18 07:40 95 03/22/18 07:22 36.7 79 18 111/74 (86) 95 Room Air Physical Exam: GEN: WNWD, in no acute distress, alert and appropriate HEENT: NC/AT, normal sclerae, MMM CARDIO: reg rate, S1/2 heard without m/g/r LUNGS: CTA bilaterally, no crackles, rales or wheezes, good diaphragmatic excursion ABD: soft, generalized tenderness to palpation but improved in the RUQ area, non -distended, no rebound or guarding EXTREMITY: RP and DP palpable 2+ bilat, no LE swelling or edema, extremities are warm and well-perfused NEURO: CN 2-12 grossly intact MUSC: moves all extremities with ease, no gross focal deficits. SKIN: warm and dry Laboratory Results: 03/22/18 06:10 03/22/18 06:10 Test 03/20/18 14:35 03/20/18 15:40 03/22/18 06:10 Urine Color YELLOW Urine Appearance CLEAR (CLEAR) Urine pH 6.0 (4.5-7.5) Urine Specific [place] 1.014 (1.000-1.030) Urine Protein NEG (NEG) Urine Glucose (UA) NEG (NEG) Urine Ketones NEG (NEG) Urine Occult Blood NEG (NEG) Urine Nitrite NEG (NEG) Urine Bilirubin NEG (NEG) Urine Urobilinogen NEG (NEG) Urine Leukocyte Esterase LARGE (NEG) Urine WBC (Auto) >30 /hpf (0-5) Urine RBC (Auto) 0-4 /hpf (0-4) Urine Hyaline Casts (Auto) 1-5 /lpf (0-5) Urine Epithelial Cells (Auto) 5-10 /lpf (0-5) Urine Bacteria (Auto) NEG (NEG) Immature Granulocyte % (Auto) 0.2 % White Blood Count 6.01 K/uL (4.8-10.8) Red Blood Count 4.59 M/uL (4.2-5.4) 3.76 M/uL (4.2-5.4) Hemoglobin 10.8 g/dL (12.0-16.0) Hematocrit 34.9 % (37-47) Mean Corpuscular Volume 76.0 fL (80-100) 78.7 fL (80-100) Mean Corpuscular Hemoglobin 23.5 pg (25-34) 23.7 pg (25-34) Mean Corpuscular Hemoglobin Concent 30.9 g/dl (32-36) 30.1 g/dl (32-36) Platelet Count 358 K/uL (130-400) Mean Platelet Volume 8.7 fL (7.4-10.4) 8.7 fL (7.4-10.4) Neutrophils (%) (Auto) 48.8 % Lymphocytes (%) (Auto) 35.3 % Monocytes (%) (Auto) 15.0 % Eosinophils (%) (Auto) 0.5 % Basophils (%) (Auto) 0.2 % Neutrophils # (Auto) 2.94 K/uL (1.4-6.5) Lymphocytes # (Auto) 2.12 K/uL (1.2-3.4) Monocytes # (Auto) 0.90 K/uL (0.11-0.59) Eosinophils # (Auto) 0.03 K/uL (0-0.5) Basophils # (Auto) 0.01 K/uL (0-0.2) Immature Granulocyte # (Auto) 0.01 K/uL (0.00-0.02) Prothrombin Time 10.5 SECONDS (9.0-12.0) Prothromb Time International Ratio 1.0 (0.9-1.1) Total Bilirubin 0.3 mg/dl (0.2-1) Direct Bilirubin 0.2 mg/dl (0-0.2) Aspartate Amino Transf (AST/SGOT) 12 U/L (15-37) Alanine Aminotransferase (ALT/SGPT) 14 U/L (12-78) Alkaline Phosphatase 85 U/L (45-117) Total Protein 8.1 gm/dl (6.4-8.2) Albumin 3.4 gm/dl (3.4-5.0) Lipase 86 U/L (73-393) RDW Standard Deviation 49.9 fL (36.4-46.3) RDW Coefficient of Variation 17.4 % (11.5-14.5) Anion Gap 7.0 mmol/L (3-11) Est Creatinine Clear Calc Drug Dose 118.6 ml/min Estimated GFR () 128.9 Estimated GFR (Non- 111.2 BUN/Creatinine Ratio 9.9 (10-20) Calcium Level 8.6 mg/dl (8.5-10.1) Magnesium Level 2.0 mg/dl (1.8-2.4) Last 24 Hours Test 03/22/18 06:10 White Blood Count 4.13 K/uL Red Blood Count 3.76 M/uL Hemoglobin 8.9 g/dL Hematocrit 29.6 % Mean Corpuscular Volume 78.7 fL Mean Corpuscular Hemoglobin 23.7 pg Mean Corpuscular Hemoglobin Concent 30.1 g/dl RDW Standard Deviation 49.9 fL RDW Coefficient of Variation 17.4 % Platelet Count 293 K/uL Mean Platelet Volume 8.7 fL Sodium Level 140 mmol/L Potassium Level 4.2 mmol/L Chloride Level 110 mmol/L Carbon Dioxide Level 23 mmol/L Anion Gap 7.0 mmol/L Blood Urea Nitrogen 4 mg/dl Creatinine 0.45 mg/dl Est Creatinine Clear Calc Drug Dose 118.6 ml/min Estimated GFR () 128.9 Estimated GFR (Non- 111.2 BUN/Creatinine Ratio 9.9 Random Glucose 86 mg/dl Calcium Level 8.6 mg/dl Magnesium Level 2.0 mg/dl Assessment & Plan 57-year-old female with history of abdominal surgery and recurrent SBO presents with abdominal pain. Pain has improved somewhat but she is still having it diffusely and required morphine agian this morning. She denies any significant feelings of hunger but states that she is getting there. +flatus, no BM. She also reports severe neuropathy in her R leg and pain in her hip for which she used to take gabapentin but this was taken frmo her when she was incarcerated a few months ago. she also reports a neck spasm on the right trapezoid area. 1. Partial SBO-likely secondary to scar tissue from abdominal surgeries in the past. The patient is currently not vomiting and is in no acute distress. Supportive care with antiemetics, pain meds and IV fluids for now. Per Surgery will plan for abdominal imaging tomorrow and advancing her diet to clears in the morning as tolerated. Appreciate recs. 2. Gastroparesis-holding Reglan at this time while not eating. 3. Chronic pain-Nerve pain present in R leg, will give her gabapentin for this as it worked the best in the past. Pt states she was unable to sleep last night because this pain was so severe. Flexeril was given for the neck spasms but didn't improve them much. Ordered K pad to area. will order a physical therapy consult, also. 4. COPD-stable, patient not on inhalers consistently. No current symptoms and normal exam at this time. 5. History of MRSA-contact precautions 6. Dilutional anemia 2/2 IVF administration-all cell lines are down. DVT prophylaxis-Lovenox Full code Disposition continue hospitalization until reliably tolerating solid foods. Dayana Lindsay DO [facility] hospitalist Consultants: General surgery-Dr. Campos Current Inpatient Medications: Current Inpatient Medications Medications (Trade) Dose Ordered Sig/Jennifer Route Start Time Stop Time Status Last Admin Dose Admin Enoxaparin Sodium (Lovenox Inj) 40 mg DAILY SQ 03/21/18 09:00 04/20/18 08:59 03/22/18 10:07 40 MG Ondansetron HCl (Zofran Inj) 4 mg Q6H PRN IV 03/20/18 17:45 04/19/18 17:44 Acetaminophen 650 mg/Empty Bag 65 ml @ 260 mls/hr Q6H PRN IV 03/20/18 17:45 04/19/18 17:44 03/21/18 03:36 260 MLS/HR Morphine Sulfate (MoRPHine SULFATE INJ) 2 mg Q4H PRN IV 03/20/18 17:45 04/03/18 17:44 03/22/18 07:48 2 MG Potassium Chloride/Dextrose/ Sod Cl 1,000 ml @ 100 mls/hr Q10H IV 03/20/18 19:30 04/19/18 19:29 03/22/18 10:07 100 MLS/HR Miscellaneous (Iv Fluids Completed) 1 ea PRN PRN N/A 03/20/18 18:15 03/20/19 18:14 Lamotrigine (Lamictal Tab) 150 mg BID PO 03/21/18 09:00 04/20/18 08:59 03/22/18 10:03 150 MG Loratadine (Claritin Tab) 10 mg DAILY PO 03/21/18 09:00 04/20/18 08:59 03/22/18 10:04 10 MG Metoprolol Tartrate (Lopressor Tab) 12.5 mg BID PO 03/21/18 09:00 04/20/18 08:59 03/22/18 10:06 12.5 MG Buspirone HCl (Buspar Tab) 20 mg TID PO 03/21/18 09:00 04/20/18 08:59 03/22/18 10:05 20 MG Cyclobenzaprine HCl (Flexeril Tab) 10 mg BID PRN PO 03/22/18 00:15 04/21/18 00:14
[2018-03-22] MEDS: CYCLOBENZAPRINE HCL 10 MG TAB PO PRN (21:26)
[2018-03-22] MEDS: GABAPENTIN 300 MG CAP PO SCH (21:28)
[2018-03-22 22:50] VITALS: BP 122/86; PULSE 83; TEMP 36.7; O2SAT 97
[2018-03-23] MEDS: MoRPHine SULFATE 4 MG/ML 1 ML CARP\\VIAL IV PRN ×2 (02:23→23:53)
[2018-03-23] MEDS: D5NSS + 20MEQ KCL 1,000 ML IV SCH ×2 (04:08→14:36)
[2018-03-23 06:54] VITALS: BP 111/72; PULSE 74; TEMP 36.6; O2SAT 93
[2018-03-23 08:18] LABS: HEMATOCRIT 33.9 % (37-47); HEMOGLOBIN 10.3 g/dL (12.0-16.0); MEAN CELL VOLUME 78.3 fL (80-100); MEAN CORPUSCULAR HEMOGLOBIN 23.8 pg (25-34); MEAN CORPUSCULAR HGB CONC 30.4 g/dl (32-36); MEAN PLATELET VOLUME 8.5 fL (7.4-10.4); PLATELET COUNT 299 K/uL (130-400); RED CELL DISTRIBUTION WIDTH CV 17.2 % (11.5-14.5); RED CELL DISTRIBUTION WIDTH SD 49.1 fL (36.4-46.3); WHITE BLOOD COUNT 5.32 K/uL (4.8-10.8)
[2018-03-23] MEDS: LORATADINE 10 MG TAB PO SCH (09:07)
[2018-03-23] MEDS: METOPROLOL TARTRATE 25 MG TAB PO SCH ×2 (09:08→20:51)
[2018-03-23] MEDS: ENOXAPARIN 40 MG/0.4 ML SYR SQ SCH (09:11)
[2018-03-23 10:35] VITALS: BP 116/76; PULSE 85; O2SAT 98
--- NOTE | 2018-03-23 11:13 | Surgery Progress Note ---
Surgery Progress Note Date of Service March 23, 2018. Subjective Post OP Day: HD # 2 + feeling well, + flatus, + pain controlled, No chest pain, No SOB, No bowel movement, No nausea, No vomiting generalized abdominal pain , more so left upper abdomen when palpated no nausea or vomiting passing flatus, no bowel movement Objective Vital Signs: Date Time Temp Pulse Resp B/P (MAP) Pulse Ox O2 Delivery O2 Flow Rate FiO2 03/23/18 08:00 Room Air 03/23/18 06:54 36.6 74 18 111/72 (85) 93 Room Air 03/23/18 00:12 Room Air 03/22/18 22:50 36.7 83 16 122/86 (98) 97 Room Air 03/22/18 20:00 Room Air 03/22/18 14:50 36.3 77 18 113/73 (86) 96 Room Air 03/22/18 11:49 36.8 75 18 114/74 (87) 95 General Appearance: WD/WN, no apparent distress Head: normocephalic, atraumatic Neck: trachea midline Respiratory/Chest: no respiratory distress, no accessory muscle use Abdomen: normal bowel sounds, non distended, soft, no organomegaly, no pulsatile mass, + tenderness (LUQ , no rigidity, guarding, rebound, or peritonitis) Laboratory Results: Results Past 24 Hours Test 03/23/18 07:47 Range/Units White Blood Count 5.32 4.8-10.8 K/uL Red Blood Count 4.33 4.2-5.4 M/uL Hemoglobin 10.3 12.0-16.0 g/dL Hematocrit 33.9 37-47 % Mean Corpuscular Volume 78.3 80-100 fL Mean Corpuscular Hemoglobin 23.8 25-34 pg Mean Corpuscular Hemoglobin Concent 30.4 32-36 g/dl RDW Standard Deviation 49.1 36.4-46.3 fL RDW Coefficient of Variation 17.2 11.5-14.5 % Platelet Count 299 130-400 K/uL Mean Platelet Volume 8.5 7.4-10.4 fL Assessment & Plan Recurrent SBO, last admission in January, Surgery for SBO by Dr. Coello in November. -vitals stable, afebrile, no leukocytosis -passing flatus, no bowel movement - abdomen nondistended and pain controlled - no vomiting Plan: May advance diet to clear liquids, advised pt to take it slow, stop if any bloating or nausea Continue current pain management, recommend limiting narcotics Continue IV Zofran prn Continue IV Fluid until tolerating po intake well Encourage ambulation and OOB to chair Continue medical management will follow Dr. Campos has seen and examined pt, agrees with above
[2018-03-23 14:54] VITALS: BP 118/81; PULSE 89; TEMP 37.1; O2SAT 94
[2018-03-23 15:15] VITALS: O2SAT 94
--- NOTE | 2018-03-23 18:16 | Progress Note ---
Medicine Progress Note Date & Time of Visit: March 23, 2018 at 16:37. Subjective 57-year-old female with history of abdominal surgery and recurrent SBO presents with abdominal pain. Pain is improved today and she is hungry and is already tolerating clear liquids. She denies any bowel movement but continues to report flatus. She denies any muscle spasms today and states the gabapentin is controlling her right leg and hip pain. Objective Last 8 Hrs Date Time Temp Pulse Resp B/P (MAP) Pulse Ox O2 Delivery O2 Flow Rate FiO2 03/23/18 15:15 94 Room Air 03/23/18 14:54 37.1 89 18 118/81 (93) 94 Room Air 03/23/18 10:35 85 98 Physical Exam: GEN: WNWD, in no acute distress, alert and appropriate HEENT: NC/AT, normal sclerae, MMM CARDIO: reg rate, S1/2 heard without m/g/r LUNGS: CTA bilaterally, no crackles, rales or wheezes, good diaphragmatic excursion ABD: soft, generalized tenderness to palpation that is improved since yesterday , non-distended, no rebound or guarding EXTREMITY: RP and DP palpable 2+ bilat, no LE swelling or edema, extremities are warm and well-perfused NEURO: CN 2-12 grossly intact MUSC: moves all extremities with ease, no gross focal deficits. SKIN: warm and dry Laboratory Results: 03/23/18 07:47 03/22/18 06:10 Test 03/20/18 14:35 03/20/18 15:40 03/22/18 06:10 03/23/18 07:47 Urine Color YELLOW Urine Appearance CLEAR (CLEAR) Urine pH 6.0 (4.5-7.5) Urine Specific [place] 1.014 (1.000-1.030) Urine Protein NEG (NEG) Urine Glucose (UA) NEG (NEG) Urine Ketones NEG (NEG) Urine Occult Blood NEG (NEG) Urine Nitrite NEG (NEG) Urine Bilirubin NEG (NEG) Urine Urobilinogen NEG (NEG) Urine Leukocyte Esterase LARGE (NEG) Urine WBC (Auto) >30 /hpf (0-5) Urine RBC (Auto) 0-4 /hpf (0-4) Urine Hyaline Casts (Auto) 1-5 /lpf (0-5) Urine Epithelial Cells (Auto) 5-10 /lpf (0-5) Urine Bacteria (Auto) NEG (NEG) Immature Granulocyte % (Auto) 0.2 % White Blood Count 6.01 K/uL (4.8-10.8) Red Blood Count 4.59 M/uL (4.2-5.4) 4.33 M/uL (4.2-5.4) Hemoglobin 10.8 g/dL (12.0-16.0) Hematocrit 34.9 % (37-47) Mean Corpuscular Volume 76.0 fL (80-100) 78.3 fL (80-100) Mean Corpuscular Hemoglobin 23.5 pg (25-34) 23.8 pg (25-34) Mean Corpuscular Hemoglobin Concent 30.9 g/dl (32-36) 30.4 g/dl (32-36) Platelet Count 358 K/uL (130-400) Mean Platelet Volume 8.7 fL (7.4-10.4) 8.5 fL (7.4-10.4) Neutrophils (%) (Auto) 48.8 % Lymphocytes (%) (Auto) 35.3 % Monocytes (%) (Auto) 15.0 % Eosinophils (%) (Auto) 0.5 % Basophils (%) (Auto) 0.2 % Neutrophils # (Auto) 2.94 K/uL (1.4-6.5) Lymphocytes # (Auto) 2.12 K/uL (1.2-3.4) Monocytes # (Auto) 0.90 K/uL (0.11-0.59) Eosinophils # (Auto) 0.03 K/uL (0-0.5) Basophils # (Auto) 0.01 K/uL (0-0.2) Immature Granulocyte # (Auto) 0.01 K/uL (0.00-0.02) Prothrombin Time 10.5 SECONDS (9.0-12.0) Prothromb Time International Ratio 1.0 (0.9-1.1) Total Bilirubin 0.3 mg/dl (0.2-1) Direct Bilirubin 0.2 mg/dl (0-0.2) Aspartate Amino Transf (AST/SGOT) 12 U/L (15-37) Alanine Aminotransferase (ALT/SGPT) 14 U/L (12-78) Alkaline Phosphatase 85 U/L (45-117) Total Protein 8.1 gm/dl (6.4-8.2) Albumin 3.4 gm/dl (3.4-5.0) Lipase 86 U/L (73-393) Anion Gap 7.0 mmol/L (3-11) Est Creatinine Clear Calc Drug Dose 118.6 ml/min Estimated GFR () 128.9 Estimated GFR (Non- 111.2 BUN/Creatinine Ratio 9.9 (10-20) Calcium Level 8.6 mg/dl (8.5-10.1) Magnesium Level 2.0 mg/dl (1.8-2.4) RDW Standard Deviation 49.1 fL (36.4-46.3) RDW Coefficient of Variation 17.2 % (11.5-14.5) Last 24 Hours Test 03/23/18 07:47 White Blood Count 5.32 K/uL Red Blood Count 4.33 M/uL Hemoglobin 10.3 g/dL Hematocrit 33.9 % Mean Corpuscular Volume 78.3 fL Mean Corpuscular Hemoglobin 23.8 pg Mean Corpuscular Hemoglobin Concent 30.4 g/dl RDW Standard Deviation 49.1 fL RDW Coefficient of Variation 17.2 % Platelet Count 299 K/uL Mean Platelet Volume 8.5 fL Assessment & Plan 57-year-old female with history of abdominal surgery and recurrent SBO presents with abdominal pain. Pain is improved today and she is hungry and is already tolerating clear liquids. She denies any bowel movement but continues to report flatus. She denies any muscle spasms today and states the gabapentin is controlling her right leg and hip pain. 1. Partial SBO-likely secondary to scar tissue from abdominal surgeries in the past. Cont supportive care. Advance diet as tolerated. 2. Gastroparesis-will restart Reglan as we are advancing diet in am. 3. Chronic pain-Nerve pain present in R leg, will give her gabapentin for this as it worked the best in the past. Pt states she was unable to sleep last night because this pain was so severe. Flexeril was given for the neck spasms but didn't improve them much. Ordered K pad to area. will order a physical therapy consult, also. 4. COPD-stable, patient not on inhalers consistently. No current symptoms and normal exam at this time. 5. History of MRSA-contact precautions 6. Dilutional anemia 2/2 IVF administration-improved, stopping IVF at this time. DVT prophylaxis-Lovenox Full code Disposition continue hospitalization until reliably tolerating solid foods. [facility] Consultants: General surgery-Dr. Campos Current Inpatient Medications: Current Inpatient Medications Medications (Trade) Dose Ordered Sig/Jennifer Route Start Time Stop Time Status Last Admin Dose Admin Enoxaparin Sodium (Lovenox Inj) 40 mg DAILY SQ 03/21/18 09:00 04/20/18 08:59 03/23/18 09:11 40 MG Ondansetron HCl (Zofran Inj) 4 mg Q6H PRN IV 03/20/18 17:45 04/19/18 17:44 Acetaminophen 650 mg/Empty Bag 65 ml @ 260 mls/hr Q6H PRN IV 03/20/18 17:45 04/19/18 17:44 03/21/18 03:36 260 MLS/HR Morphine Sulfate (MoRPHine SULFATE INJ) 2 mg Q4H PRN IV 03/20/18 17:45 04/03/18 17:44 03/23/18 02:23 2 MG Potassium Chloride/Dextrose/ Sod Cl 1,000 ml @ 100 mls/hr Q10H IV 03/20/18 19:30 04/19/18 19:29 03/23/18 14:36 100 MLS/HR Miscellaneous (Iv Fluids Completed) 1 ea PRN PRN N/A 03/20/18 18:15 03/20/19 18:14 Lamotrigine (Lamictal Tab) 150 mg BID PO 03/21/18 09:00 04/20/18 08:59 03/23/18 09:09 150 MG Loratadine (Claritin Tab) 10 mg DAILY PO 03/21/18 09:00 04/20/18 08:59 03/23/18 09:07 10 MG Metoprolol Tartrate (Lopressor Tab) 12.5 mg BID PO 03/21/18 09:00 04/20/18 08:59 03/23/18 09:08 12.5 MG Buspirone HCl (Buspar Tab) 20 mg TID PO 03/21/18 09:00 04/20/18 08:59 03/23/18 13:20 20 MG Cyclobenzaprine HCl (Flexeril Tab) 10 mg BID PRN PO 03/22/18 00:15 04/21/18 00:14 03/22/18 21:26 10 MG Gabapentin (Neurontin Cap) 300 mg HS PO 03/22/18 21:00 04/21/18 20:59 03/22/18 21:28 300 MG
[2018-03-23 20:20] VITALS: BP 120/83; PULSE 89; TEMP 36.7; O2SAT 95
[2018-03-23] MEDS: CYCLOBENZAPRINE HCL 10 MG TAB PO PRN (20:51)
[2018-03-23] MEDS: GABAPENTIN 300 MG CAP PO SCH (20:51)
[2018-03-23 23:39] VITALS: BP 117/81; PULSE 101; TEMP 36.7; O2SAT 95
[2018-03-24] MEDS: MoRPHine SULFATE 4 MG/ML 1 ML CARP\\VIAL IV PRN ×2 (04:09→08:42)
[2018-03-24 07:19] VITALS: BP 116/74; PULSE 101; TEMP 36.8; O2SAT 94
[2018-03-24] MEDS: LORATADINE 10 MG TAB PO SCH (08:43)
[2018-03-24] MEDS: METOPROLOL TARTRATE 25 MG TAB PO SCH (08:43)
[2018-03-24] MEDS: ENOXAPARIN 40 MG/0.4 ML SYR SQ SCH (08:46)
[2018-03-24] MEDS ORDERED: METOCLOPRAMIDE HCL 5 MG TAB PO SCH (09:00)
[2018-03-24] MEDS ORDERED: PANTOprazole SOD 40 MG TAB PO SCH (09:00)
[2018-03-24] MEDS ORDERED: NRN300 PO (12:26)
[2018-03-24] MEDS ORDERED: LPR25 PO (12:26)
--- NOTE | 2018-03-24 12:29 | Discharge Instructions ---
Discharge Instructions Date of Service March 24, 2018. Admission Reason for Admission: Partial Small Bowel Obstruction Discharge Discharge Diagnosis / Problem: partial SBO Discharge Goals Goal(s): Improve disease control, Prevent Disease Progression Activity Recommendations Activity Limitations: per Instructions/Follow-up section . Instructions / Follow-Up Instructions / Follow-Up Please take all medications as instructed. It is recommended that you stay on the gabapentin at the dose prescribed for improved control of your neuropathic pain. Please follow-up with primary care physician within one week of discharge to ensure you are still doing well. It was a pleasure taking care of you! Call if you have any questions or problems. You can reach a [place] Hospitalist on duty at [facility] 24 hours a day by calling [phone]. Take care of yourself. Dayana Lindsay DO [facility] Current Hospital Diet Patient's current hospital diet: Regular Diet Discharge Diet Recommended Diet: Regular Diet Procedures Procedures Performed: unsuccessful attempts at NGT x 2 Pending Studies Studies pending at discharge: no Medical Emergencies . Who to Call and When: Medical Emergencies: If at any time you feel your situation is an emergency, please call 911 immediately. . Non-Emergent Contact Non-Emergency issues call your: Primary Care Provider . . "Provider Documentation" section prepared by Dayana Lindsay. .
[2018-03-24] MEDS ORDERED: DOCU-94 PO (13:15)
[2018-03-24] MEDS ORDERED: POLYETHYLENE (MIRALAX) 17 GM PACK PO STA (13:18)
--- NOTE | 2018-03-24 14:41 | Discharge Summary ---
Discharge Summary Date of Service March 24, 2018. Discharge Summary Admission Date: March 21, 2018 at 16:11 Discharge Date: March 24, 2018 Discharge Disposition: Home (half-way) Principal Diagnosis: Partial SBO Gastroparesis Chronic pain COPD Procedures: None. Vaccinations: None. Consultations: General surgery-Dr. Campos Pending Studies/Follow-Up: see instructions below. Medication Reconciliation New Medications: Docusate Sodium (Colace) 100 Mg Cap 100 MG PO BID for 30 Days, #60 CAP Gabapentin (Gabapentin) 300 Mg Cap 300 MG PO HS for 30 Days, #30 CAP Metoprolol Tartrate (Lopressor) 25 Mg Tab 12.5 MG PO BID for 30 Days, #60 TAB Continued Medications: Buspirone Hcl (Buspirone Hcl) 10 Mg Tab 20 MG PO TID Cyclobenzaprine Hcl (Flexeril) 10 Mg Tab 10 MG PO BID Ibuprofen (Motrin) 400 Mg Tab 400 MG PO TID Lamotrigine (Lamictal) 150 Mg Tab 150 MG PO BID Loratadine (Claritin) 10 Mg Tab 10 MG PO DAILY Metoclopramide Hcl (Reglan) 5 Mg Tab 5 MG PO BID Omeprazole (Prilosec) 20 Mg Capcr 20 MG PO DAILY Discontinued Medications: Dicyclomine Hcl (Dicyclomine Hcl) 10 Mg Cap 10 MG PO BID Metoprolol Tartrate (Lopressor) 25 Mg Tab 25 MG PO DAILY Admission Information HPI (per Admitting provider): 57-year-old prisoner female presents to the ER with 24 hours of abdominal pain. She reports having lunch yesterday followed by some burning in her stomach which led to distention and pain on the right side. Last night she did not eat dinner and was given some Pepto-Bismol and milk of magnesia. She got about 3 hours of sleep then woke up around 430 with a couple episodes of loose stools and increased abdominal pain. Her pain seemed to subside and by 1 she was able to tolerate solid food however her pain returned. She currently has some generalized abdominal pain but states that she is feeling somewhat better and denies any nausea at this time. She has not vomited. She denies any fevers or chills, denies recent colds or other infections. She was here in December admitted for small bowel obstruction which resolved with an NG tube placement. At that time she was on fentanyl and has since been taken off at the present. Today an NG tube was attempted twice unsuccessfully and the procedure was aborted. She had a history of abdominal surgery in November of this year. Physical Exam (per Admitting): General Appearance: WD/WN, no apparent distress Head: normocephalic, atraumatic Eyes: normal inspection, PERRL, sclerae normal ENT: hearing grossly normal, pharynx normal, + pertinent finding Neck: trachea midline Respiratory/Chest: lungs clear, normal breath sounds, no respiratory distress, no accessory muscle use Cardiovascular: regular rate, rhythm, no edema, no gallop, no JVD, no murmur , normal peripheral pulses Abdomen/GI: normal bowel sounds, soft, + tenderness (Generalized), + guarding Back: normal inspection Extremities/Musculoskelatal: normal inspection, no pedal edema, normal range of motion Neurologic/Psych: rn peritoneal dialysis II-XII nml as tested, no motor/sensory deficits, alert , normal mood/affect, oriented x 3 Skin: normal color, warm/dry, no rash Hospital Course 57-year-old female with history of abdominal surgery and recurrent SBO presents with abdominal pain. She was found to have repeat partial SBP on CT scan. Pain improved over two days and diet began to advance without any further issues with worsening pain, nausea or vomiting. She was passing flatus prior to discharge. She also has a h/o gabapentin use for chronic leg pain, which was discontinued form her regimen when she was incarcerated. This was added back to her only at 1/3 the dose and was successful in controlling her night symptoms. It was strongly recommended to continue this night dose going out for her chronic right hip and leg pain. 1. Partial SBO-likely secondary to scar tissue from abdominal surgeries in the past. Cont supportive care. Advance diet as tolerated. 2. Gastroparesis-Reglan was restarted per home regimen-patient was advised of possible long-term side effects of this medication and verbalized understanding. 3. Chronic pain-Nerve pain present in R leg, Flexeril was given for the neck spasms but didn't improve them much. Gabapentin helped with this, also. Ordered K pad to area. 4. COPD-stable, patient not on inhalers consistently. No current symptoms and normal exam at this time. 5. History of MRSA-contact precautions 6. Dilutional anemia 2/2 IVF administration DVT prophylaxis-Lovenox Full code Disposition-to half-way, on discharge she was afebrile and hemodynamically stable. She had a resolution of her symptoms with an unremarkable physical exam. She was ambulating and mentating at baseline and was sent out in stable condition. DO [facility] Total time spent on discharge = 60 minutes This includes examination of the patient, discharge planning, medication reconciliation, and communication with other providers. Discharge Instructions [facility] [address] [place] [address] Discharge Medical Patient Name: Jennifer Guerrero #[id number] Unit Number: [id number] Date of : 1960 Patient Status: Admitted Inpatient Attending Doctor: Dayana Lindsay DO DI: Medical v5 Discharge Instructions Date of Service March 24, 2018. Admission Reason for Admission: Partial Small Bowel Obstruction Discharge Discharge Diagnosis / Problem: partial SBO Discharge Goals Goal(s): Improve disease control, Prevent Disease Progression Activity Recommendations Activity Limitations: per Instructions/Follow-up section . Instructions / Follow-Up Instructions / Follow-Up Please take all medications as instructed. It is recommended that you stay on the gabapentin at the dose prescribed for improved control of your neuropathic pain. Please follow-up with primary care physician within one week of discharge to ensure you are still doing well. It was a pleasure taking care of you! Call if you have any questions or problems. You can reach a [facility] Hospitalist on duty at [facility] 24 hours a day by calling [phone]. Take care of yourself. DO [facility] Current [facility] Diet Patient's current hospital diet: Regular Diet Discharge Diet Recommended Diet: Regular Diet Procedures Procedures Performed: unsuccessful attempts at NGT x 2 Pending Studies Studies pending at discharge: no Medical Emergencies . Who to Call and When: Medical Emergencies: If at any time you feel your situation is an emergency, please call 911 immediately. . Non-Emergent Contact Non-Emergency issues call your: Primary Care Provider . . "Provider Documentation" section prepared by Dayana Lindsay. . Additional Copies To [facility]
[2018-03-24 14:56] VITALS: BP 106/73; PULSE 79; TEMP 36.9; O2SAT 93
[2018-03-24 16:02] VITALS: BP 106/73; PULSE 79; TEMP 36.9; O2SAT 93
== END 2018-03-24 16:41 | DRG 390 ==
LOC: C.EDB 14:12 → C.MSW 17:07 → ENRESERV 17:18 → OBSVTOIN 03-21 16:11
PROVIDERS: ADMIT Hospitalist; ATTEND Hospitalist
DX: K56.609 Unspecified intestinal obstruction, unspecified as to partial versus complete obstruction (principal); Z83.3 Family history of diabetes mellitus; Z82.49 Family history of ischemic heart disease and other diseases of the circulatory system; Z80.9 Family history of malignant neoplasm, unspecified; K31.84 Gastroparesis; G89.29 Other chronic pain; J44.9 Chronic obstructive pulmonary disease, unspecified; Z86.14 Personal history of Methicillin resistant Staphylococcus aureus infection; D64.89 Other specified anemias

== ENCOUNTER 2018-06-24 18:58 | Emergency (ER) | payer OTHER ==
[~2018-06-24] VITALS: Ht 157.5 cm; Wt 63.0 kg
[~2018-06-24 18:58] MED LIST changes: -AMT24 PO; -ARIP30TA3 PO; -ATV1 PO; -CALC200T PO; -CETI10TA84 PO; +CLR10 PO; -DICY10CA12 PO; +DOCU-94 PO; -FAMO40TA6 PO; -FNTTP25 TOP; -FURO-85 PO; -GABA-113 PO; +IBUP-1459 PO; -LAMO100T16 PO; +LAMO150T PO; -LAMO25TA PO; +LPR25 PO; -LRS10 PO; -METO25TA4 PO; -MONT1TAB3 PO; -MULT-190 PO; -MULT-506 PO; +NRN300 PO; -POLY335019 PO; -POTA10CA28 PO; -PRFINS NEB; +PRLSR20 PO; -PRVHFAIN INH; -ZFRODT/8 SL
[2018-06-24 19:13] VITALS: TEMP 37.2; Ht 157.5 cm; Wt 63.0 kg
[2018-06-24] MEDS ORDERED: SODIUM CHLORIDE 0.9% 1000ML 1,000 ML IV STA (19:40)
--- NOTE | 2018-06-24 19:48 | EMERGENCY ROOM VISIT NOTE ---
History Report prepared by Tonya: John Paul Hurtado Under the Supervision of: Dr. Thor Knight D.O. First contact with patient: 19:30 Chief Complaint: ABDOMINAL PAIN Stated Complaint: ABDOMINAL PAIN History of Present Illness The patient is a 57 year old female who presents to the Emergency Room with complaints of worsening abdominal distension that began a week ago. Patient states she initially thought the symptoms were due to weight gain, but states the symptoms have worsened. Patient describe the abdominal distension as "burning" with intermittent pain. Patient adds she has a stiff neck. Past medical history includes 3 bowel obstructions and a hiatal hernia. She states she had surgery for the first two bowel obstructions. She states she was told the bowel obstructions were due to scar tissue. Patient states she still has her gallbladder and appendix. Patient adds she takes psych medications. Patient states she has been in menopause since she was 34. Patient states she used alcohol and tobacco in the past but not currently. Patient denies urinary symptoms, diarrhea, and vomiting. Source of History: patient Onset: A week ago Position: abdomen Quality: burning Timing: worsening Modifying Factors (Relieving): other (None) Associated Symptoms: + neck pain (Stiff neck), + abdominal pain, No vomiting , No diarrhea, No urinary symptoms Review of Systems See HPI for pertinent positives & negatives. A total of 10 systems reviewed and were otherwise negative. Past Medical & Surgical Medical Problems: (1) Abscess of right hip (2) Anxiety (3) Bipolar disorder (4) Bipolar Disorder, Unspecified (5) Cervicalgia (6) Chronic alcoholism in remission (7) Chronic back pain (8) Chronic headache (9) Chronic obstructive lung disease (10) Chronic urinary urge incontinence (11) Closed head injury (12) Depression (13) Gastroesophageal reflux disease (14) Gastroparesis (15) HCV (hepatitis C virus) (16) History of aspiration pneumonia (17) History of Clostridium difficile colitis (18) History of drug abuse (19) History of sepsis (20) History of supraventricular tachycardia (21) Incisional abscess (22) Lumbago (23) Osteoarthritis (24) Osteoarthritis of hip (25) Osteoporosis (26) Pancreatitis (27) Partial small bowel obstruction (28) PTSD (post-traumatic stress disorder) (29) SBO (small bowel obstruction) (30) seroma Right hip (31) Small bowel obstruction (32) SVT (supraventricular tachycardia) (33) Ulnar neuropathy Surgical Problems: (1) Bladder Repair (2) H/O colonoscopy (3) H/O cystoscopy (4) H/O esophagogastroduodenoscopy (5) H/O sinus surgery (6) History of hip surgery (7) Right Tibia/Fibula Repair (8) S/P cervical spinal fusion (9) s/p colonoscopy (10) s/p cystoscopy (11) s/p EGD (12) S/p esophagogastric fundoplasty (13) s/p laparoscopic fundoplication hiatal hernia (14) S/p lumbar decompression/fusion (15) S/P ORIF (open reduction internal fixation) fracture (16) s/p reconstruction hip socket (17) s/p tonsillectomy (18) S/P tonsillectomy and adenoidectomy (19) s/p tubal ligation (20) S/P tubal ligation Family History Diabetes mellitus FATHER GRANDMOTHER FH: colon cancer GRANDMOTHER Gallbladder disease Heart disease Hypertension FATHER MOTHER Kidney disease Kidney stones Social History Smoking Status: Former Smoker Alcohol Use: none Drug Use: none, other Marital Status: Housing Status: lives with family Occupation Status: disabled Current/Historical Medications Scheduled Buspirone Hcl (Buspirone Hcl), 20 MG PO TID Dicyclomine Hcl (Dicyclomine Hcl), 10 MG PO BID Docusate Sodium (Colace), 100 MG PO BID Gabapentin (Gabapentin), 600 MG PO TID Lamotrigine (Lamictal), 200 MG PO BID Loratadine (Claritin), 10 MG PO HS Magnesium Hydroxide (Milk Of Magnesia), 30 ML PO 3XWK Meloxicam (Mobic), 15 MG PO HS Methocarbamol (Robaxin), 750 MG PO BID Metoclopramide Hcl (Reglan), 5 MG PO BID Metoprolol Tartrate (Lopressor) (Lopressor), 12.5 MG PO BID Nortriptyline (Pamelor), 25 MG PO BID Omeprazole (Prilosec), 20 MG PO DAILY Polyethylene Glycol 3350 (Miralax), 17 GM PO DAILY Scheduled PRN Acetaminophen Tab (Tylenol), 650 MG PO BID PRN for Pain Allergies Coded Allergies: Hydroxyzine (Verified Allergy, Severe, THROAT CONSTRICTS/CAN NOT VOID, 06/24) Propiomazine (Verified Allergy, Unknown, UNKNOWN, 06/24/18) Clarithromycin (Verified Adverse Reaction, Intermediate, vomiting, 06/24/18) Lisinopril (Verified Adverse Reaction, Mild, Cough, 06/24/18) Reported by PT. Chlorpromazine (Verified Adverse Reaction, Unknown, LIGHTHEADED DIZZY, 06/24) Physical Exam Vital Signs Date Time Temp Pulse Resp B/P (MAP) Pulse Ox O2 Delivery O2 Flow Rate FiO2 06/24/18 22:07 89 16 154/105 97 06/24/18 21:16 87 16 158/109 97 Room Air 06/24/18 19:13 37.2 94 20 144/97 95 Room Air Physical Exam GENERAL: Patient is awake, alert, and in no acute distress. Patient is resting comfortably and showing no signs of anxiety EYES: The conjunctivae are clear. The pupils are round and reactive. EARS, NOSE, MOUTH AND THROAT: The nose is without any evidence of any deformity. Mucous membranes are moist. Tongue is midline NECK: The neck is nontender and supple. RESPIRATORY: Normal respiratory effort is noted. There is no evidence of wheezing rhonchi or rales to auscultation. CARDIOVASCULAR: Regular rate and rhythm noted. There no murmurs rubs or gallops normal S1 normal S2 GASTROINTESTINAL: Mildly distended but soft. Ventral surgical hernial site with no incarceration noted. Bowel sounds are present in all quadrants. Abdomen is nontender. MUSCULOSKELETAL/EXTREMITIES: There is no evidence of gross deformity. Full range of motion is noted in the hips and shoulders. SKIN: There is no obvious evidence of any rash. There are no petechiae, pallor or cyanosis noted. NEUROLOGIC: Patient is awake alert and oriented x3. Strength is symmetric. Patellar reflexes are 2+ bilaterally. Medical Decision & Procedures ER Provider Diagnostic Interpretation: Radiology results as stated below per my review and radiologist interpretation: CT SCAN OF THE ABDOMEN AND PELVIS WITHOUT IV CONTRAST CLINICAL HISTORY: Generalized abdominal pain. Swelling. COMPARISON STUDY: Abdominal CT dated 03/20/2018. TECHNIQUE: CT scan of the abdomen and pelvis is performed from the lung bases to the proximal femora. Images are reviewed in the axial, sagittal, and coronal planes. IV contrast was not administered for this examination as per the referring clinician. Note that the examination was performed in suboptimal fashion without oral and IV contrast. The examination is also greater by streak artifact from extensive spinal and pelvic hardware. A dose lowering technique was utilized adhering to the principles of ALARA. CT DOSE: 275.18 mGy.cm FINDINGS: Lung bases: The heart is normal in size and without pericardial effusion. There is bibasilar scarring/atelectasis. No airspace consolidation or pleural effusion is seen. A small hiatal hernia is noted. Liver: The unenhanced liver is normal in size, contour, and attenuation. There is no intrahepatic biliary ductal dilatation. Gallbladder: Unremarkable. Spleen: Normal in size and attenuation. Pancreas: The unenhanced pancreas is moderately atrophic and grossly unremarkable. Adrenal glands: Unremarkable. Kidneys: The unenhanced kidneys are atrophic and without hydronephrosis. There are no renal calculi identified. There is no evidence of contour deforming renal mass lesion. Abdominal vasculature: The abdominal aorta is normal in course and caliber. Bowel: There is moderate to severe constipation. No bowel obstruction is seen. There is diastases of the rectus abdominis musculature with protrusion of bowel loops. A small bowel anastomosis is seen in the right lower quadrant. The appendix is well-visualized and normal. Peritoneum: There is no intraperitoneal free air or abdominal ascites. Lymphadenopathy: No pathologically enlarged lymph nodes are identified in the abdomen or pelvis. Prominent right inguinal lymph node measures 12 mm short axis. These are similar to previous. Pelvic viscera: Evaluation of the pelvis is degraded by streak artifact from a right hip arthroplasty. The bladder, uterus, and adnexa are normal as visualized. Skeletal structures: The skeletal structures are osteopenic. No lytic or blastic lesions are seen. There is a chronic compression deformity of L2. Lumbosacral scoliosis is observed. Extensive lumbosacral spinal fusion hardware is in place. There are bilateral iliac bolts. There is chronic posttraumatic deformity throughout the bony pelvis status post buttress plate fixation on the right. A right hip arthroplasty is in place. IMPRESSION: 1. Suboptimal examination without oral and IV contrast. The examination is also significantly degraded by streak artifact. 2. There are no acute infectious or inflammatory findings in the abdomen or pelvis. 3. Moderate to severe constipation. No bowel obstruction is seen. 4. There is diastases of the rectus musculature with central protrusion of abdominal contents. 5. Extensive chronic posttraumatic deformity and postoperative change involving the lumbar spine and bony pelvis as above. 6. Additional findings as above. Electronically signed by: Jeffry Colunga M.D. 06/24/2018 9:18 PM Laboratory Results 06/24/18 20:21 Red Blood Count 4.31, Mean Corpuscular Volume 79.1, Mean Corpuscular Hemoglobin 24.6, Mean Corpuscular Hemoglobin Concent 31.1, Mean Platelet Volume 8.4, Neutrophils (%) (Auto) 44.5, Lymphocytes (%) (Auto) 42.0, Monocytes (%) (Auto) 11.2, Eosinophils (%) (Auto) 1.6, Basophils (%) (Auto) 0.4, Neutrophils # (Auto ) 3.39, Lymphocytes # (Auto) 3.20, Monocytes # (Auto) 0.85, Eosinophils # (Auto ) 0.12, Basophils # (Auto) 0.03 06/24/18 20:21 Test 06/24/18 20:21 06/24/18 20:35 White Blood Count 7.61 K/uL (4.8-10.8) Red Blood Count 4.31 M/uL (4.2-5.4) Hemoglobin 10.6 g/dL (12.0-16.0) Hematocrit 34.1 % (37-47) Mean Corpuscular Volume 79.1 fL (80-100) Mean Corpuscular Hemoglobin 24.6 pg (25-34) Mean Corpuscular Hemoglobin Concent 31.1 g/dl (32-36) Platelet Count 347 K/uL (130-400) Mean Platelet Volume 8.4 fL (7.4-10.4) Neutrophils (%) (Auto) 44.5 % Lymphocytes (%) (Auto) 42.0 % Monocytes (%) (Auto) 11.2 % Eosinophils (%) (Auto) 1.6 % Basophils (%) (Auto) 0.4 % Neutrophils # (Auto) 3.39 K/uL (1.4-6.5) Lymphocytes # (Auto) 3.20 K/uL (1.2-3.4) Monocytes # (Auto) 0.85 K/uL (0.11-0.59) Eosinophils # (Auto) 0.12 K/uL (0-0.5) Basophils # (Auto) 0.03 K/uL (0-0.2) RDW Standard Deviation 51.2 fL (36.4-46.3) RDW Coefficient of Variation 17.6 % (11.5-14.5) Immature Granulocyte % (Auto) 0.3 % Immature Granulocyte # (Auto) 0.02 K/uL (0.00-0.02) Anion Gap 6.0 mmol/L (3-11) Est Creatinine Clear Calc Drug Dose 82.1 ml/min Estimated GFR () 113.7 Estimated GFR (Non- 98.1 BUN/Creatinine Ratio 22.6 (10-20) Calcium Level 9.1 mg/dl (8.5-10.1) Total Bilirubin 0.2 mg/dl (0.2-1) Direct Bilirubin < 0.1 mg/dl (0-0.2) Aspartate Amino Transf (AST/SGOT) 10 U/L (15-37) Alanine Aminotransferase (ALT/SGPT) 14 U/L (12-78) Alkaline Phosphatase 86 U/L (45-117) Total Protein 8.0 gm/dl (6.4-8.2) Albumin 3.5 gm/dl (3.4-5.0) Urine Color YELLOW Urine Appearance CLEAR (CLEAR) Urine pH 7.5 (4.5-7.5) Urine Specific [place] 1.006 (1.000-1.030) Urine Protein NEG (NEG) Urine Glucose (UA) NEG (NEG) Urine Ketones NEG (NEG) Urine Occult Blood NEG (NEG) Urine Nitrite NEG (NEG) Urine Bilirubin NEG (NEG) Urine Urobilinogen NEG (NEG) Urine Leukocyte Esterase TRACE (NEG) Urine WBC (Auto) 1-5 /hpf (0-5) Urine RBC (Auto) 0-4 /hpf (0-4) Urine Hyaline Casts (Auto) 0 /lpf (0-5) Urine Epithelial Cells (Auto) 5-10 /lpf (0-5) Urine Bacteria (Auto) NEG (NEG) Laboratory results per my review. Medications Administered Medications (Trade) Dose Ordered Sig/Jennifer Route Start Time Stop Time Status Last Admin Dose Admin Sodium Chloride 1,000 ml @ 999 mls/hr Q1H1M STAT IV 06/24/18 19:40 06/24/18 20:40 DC 06/24/18 21:15 999 MLS/HR Polyethylene (Miralax Powder Packet) 17 gm ONE STAT PO 06/24/18 21:29 06/24/18 21:30 DC 06/24/18 21:56 17 GM ED Course 1934: The patient was evaluated in room B5. A complete history and physical examination were performed. 1939: NSS 1,000 ml @ 999 mls/hr IV 2128: Polyethylene 17gm PO 2133: Upon reevaluation, the patient is resting comfortably. I discussed the results and treatment plan with her. She verbalized agreement of the treatment plan. She was discharged home. Medical Decision Prior records/ancillary studies reviewed. Triage Nursing notes reviewed. The patient's history was concerning for abdominal pain. Differential diagnosis: Etiologies such as appendicitis, diverticulitis, PUD, biliary pathology, UTI, pancreatitis, obstruction, mesenteric ischemia, aortic pathology, infections, inflammatory bowel disease, renal colic, as well as others were entertained. The patient is a 57-year-old female who presented to the emergency department for an evaluation of abdominal pain and an abdominal distention. The patient's physical exam was not consistent with an acute surgical abdomen but a ventral wall defect could be palpated. The patient did not appear to have incarceration of the hernia. The patient was treated with IV fluids in the emergency department. I discussed patient's laboratory and radiographic studies with her. At this time she does not appear to have signs of bowel obstruction but does have significant constipation. She was started on medications for constipation in the emergency department. She was also encouraged to [facility] and return to the emergency department immediately if symptoms change worsen or the need arises. Medication Reconcilliation Current Medication List: was personally reviewed by me Blood Pressure Screening Patient's blood pressure: Normal blood pressure Blood pressure disposition: Did not require urgent referral Impression Primary Impression: Abdominal pain Additional Impressions: Constipation Postoperative hernia Scribe Attestation The scribe's documentation has been prepared under my direction and personally reviewed by me in its entirety. I confirm that the note above accurately reflects all work, treatment, procedures, and medical decision making performed by me. Departure Information Dispostion Home / Self-Care Prescriptions Polyethylene Glycol 3350 (MIRALAX) 1 Pow Pow 17 GM PO DAILY, #527 GM Prov: Thor Knight, DO 06/24/18 Referrals No Doctor, Assigned (PCP) Forms Call Back Authorization, HOME CARE DOCUMENTATION FORM, IMPORTANT VISIT INFORMATION Patient Instructions Constipation, My [facility] Additional Instructions Follow-up with your family doctor for reevaluation. If symptoms do not improve you may require referral to a surgeon to evaluate the possibility that you may need correction of the hernia on the abdominal wall. Drink plenty of clear liquids. Avoid any strong pain medication as this may worsen the constipation. Problem Qualifiers Primary Impression: Abdominal pain Abdominal location: unspecified location Qualified Codes: R10.9 - Unspecified abdominal pain Additional Impressions: Constipation Constipation type: unspecified constipation type Qualified Codes: K59.00 - Constipation, unspecified
[2018-06-24 20:28] LABS: BASO % 0.4 %; BASO ABS # 0.03 K/uL (0-0.2); EOS % 1.6 %; EOS ABS # 0.12 K/uL (0-0.5); HEMATOCRIT 34.1 % (37-47); HEMOGLOBIN 10.6 g/dL (12.0-16.0); IG# 0.02 K/uL (0.00-0.02); MEAN CELL VOLUME 79.1 fL (80-100); MEAN CORPUSCULAR HEMOGLOBIN 24.6 pg (25-34); MEAN CORPUSCULAR HGB CONC 31.1 g/dl (32-36); MEAN PLATELET VOLUME 8.4 fL (7.4-10.4); MONO % 11.2 %; MONO ABS # 0.85 K/uL (0.11-0.59); NEUT % 44.5 %; NEUT ABS # 3.39 K/uL (1.4-6.5); PLATELET COUNT 347 K/uL (130-400); RED CELL DISTRIBUTION WIDTH CV 17.6 % (11.5-14.5); RED CELL DISTRIBUTION WIDTH SD 51.2 fL (36.4-46.3); WHITE BLOOD COUNT 7.61 K/uL (4.8-10.8)
[2018-06-24] MEDS ORDERED: METO25TA56 PO (20:41)
[2018-06-24] MEDS ORDERED: METH-307 PO (20:41)
[2018-06-24] MEDS ORDERED: DOCU-94 PO (20:41)
[2018-06-24] MEDS ORDERED: DICY10CA12 PO (20:41)
[2018-06-24] MEDS ORDERED: LAMO200T35 PO (20:41)
[2018-06-24] MEDS ORDERED: NRN600 PO (20:41)
[2018-06-24] MEDS ORDERED: MELO15TA10 PO (20:41)
[2018-06-24] MEDS ORDERED: NORT25CA PO (20:41)
[2018-06-24] MEDS ORDERED: MOML PO (20:41)
[2018-06-24] MEDS ORDERED: ACET-1693 PO (20:41)
[2018-06-24 20:47] LABS: ALBUMIN 3.5 gm/dl (3.4-5.0); ALKALINE PHOSPHATASE 86 U/L (45-117); ALT/SGPT 14 U/L (12-78); AST/SGOT 10 U/L (15-37); BLOOD UREA NITROGEN 15 mg/dl (7-18); CALCIUM 9.1 mg/dl (8.5-10.1); CARBON DIOXIDE 27 mmol/L (21-32); CREATININE 0.66 mg/dl (0.60-1.20); GLUCOSE 97 mg/dl (70-99); POTASSIUM 4.2 mmol/L (3.5-5.1); SODIUM 136 mmol/L (136-145)
--- NOTE | 2018-06-24 21:19 | DIAGNOSTIC IMAGING REPORT ---
CT SCAN OF THE ABDOMEN AND PELVIS WITHOUT IV CONTRAST CLINICAL HISTORY: Generalized abdominal pain. Swelling. COMPARISON STUDY: Abdominal CT dated 03/20/2018. TECHNIQUE: CT scan of the abdomen and pelvis is performed from the lung bases to the proximal femora. Images are reviewed in the axial, sagittal, and coronal planes. IV contrast was not administered for this examination as per the referring clinician. Note that the examination was performed in suboptimal fashion without oral and IV contrast. The examination is also greater by streak artifact from extensive spinal and pelvic hardware. A dose lowering technique was utilized adhering to the principles of ALARA. CT DOSE: 275.18 mGy.cm FINDINGS: Lung bases: The heart is normal in size and without pericardial effusion. There is bibasilar scarring/atelectasis. No airspace consolidation or pleural effusion is seen. A small hiatal hernia is noted. Liver: The unenhanced liver is normal in size, contour, and attenuation. There is no intrahepatic biliary ductal dilatation. Gallbladder: Unremarkable. Spleen: Normal in size and attenuation. Pancreas: The unenhanced pancreas is moderately atrophic and grossly unremarkable. Adrenal glands: Unremarkable. Kidneys: The unenhanced kidneys are atrophic and without hydronephrosis. There are no renal calculi identified. There is no evidence of contour deforming renal mass lesion. Abdominal vasculature: The abdominal aorta is normal in course and caliber. Bowel: There is moderate to severe constipation. No bowel obstruction is seen. There is diastases of the rectus abdominis musculature with protrusion of bowel loops. A small bowel anastomosis is seen in the right lower quadrant. The appendix is well-visualized and normal. Peritoneum: There is no intraperitoneal free air or abdominal ascites. Lymphadenopathy: No pathologically enlarged lymph nodes are identified in the abdomen or pelvis. Prominent right inguinal lymph node measures 12 mm short axis. These are similar to previous. Pelvic viscera: Evaluation of the pelvis is degraded by streak artifact from a right hip arthroplasty. The bladder, uterus, and adnexa are normal as visualized. Skeletal structures: The skeletal structures are osteopenic. No lytic or blastic lesions are seen. There is a chronic compression deformity of L2. Lumbosacral scoliosis is observed. Extensive lumbosacral spinal fusion hardware is in place. There are bilateral iliac bolts. There is chronic posttraumatic deformity throughout the bony pelvis status post buttress plate fixation on the right. A right hip arthroplasty is in place. IMPRESSION: 1. Suboptimal examination without oral and IV contrast. The examination is also significantly degraded by streak artifact. 2. There are no acute infectious or inflammatory findings in the abdomen or pelvis. 3. Moderate to severe constipation. No bowel obstruction is seen. 4. There is diastases of the rectus musculature with central protrusion of abdominal contents. 5. Extensive chronic posttraumatic deformity and postoperative change involving the lumbar spine and bony pelvis as above. 6. Additional findings as above. Electronically signed by: Jeffry Colunga M.D. 06/24/2018 9:18 PM Dictated Date/Time: 06/24/2018 9:10 PM
[2018-06-24] MEDS ORDERED: POLYETHYLENE (MIRALAX) 17 GM PACK PO STA (21:29)
[2018-06-24] MEDS ORDERED: POLY335019 PO (21:31)
[2018-06-24 22:07] VITALS: BP 154/105; PULSE 89; O2SAT 97
== END 2018-06-24 22:08 | disposition home or self-care (01) ==
LOC: C.EDB 19:01
DX: R10.9 Unspecified abdominal pain (principal); K59.00 Constipation, unspecified; K43.2 Incisional hernia without obstruction or gangrene; F41.9 Anxiety disorder, unspecified; F31.9 Bipolar disorder, unspecified; F10.21 Alcohol dependence, in remission; J44.9 Chronic obstructive pulmonary disease, unspecified; F32.9 Major depressive disorder, single episode, unspecified; K21.9 Gastro-esophageal reflux disease without esophagitis; B19.20 Unspecified viral hepatitis C without hepatic coma; Z87.891 Personal history of nicotine dependence; Z79.899 Other long term (current) drug therapy; Z88.8 Allergy status to other drugs, medicaments and biological substances; Z88.1 Allergy status to other antibiotic agents

== ENCOUNTER 2020-09-07 12:19 | Inpatient (IN) ==
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
--- NOTE | 2020-09-07 13:22 | XRay Report ---
XR chest 1V portable HISTORY: Dyspnea COMPARISON: Chest 09/04/2020. FINDINGS: No pneumothorax. No pleural effusions. Cervical and lumbar spinal fusion hardware is again noted. The heart is normal in size. No evidence for pulmonary edema. Slight progression of the inters titial thickening and hazy bibasilar densities within the lung bases. IMPRESSION: Slight progression of the interstitial thickening at the lung bases and hazy densities. This may repr esent a developing pneumonitis. ACT 112: Negative or not required by law. Electronically signed by: Ricardo Anthony M.D. 09/07/2020 1:21 PM
[2020-09-07 13:53] LABS: Hematocrit (blood only) 34.2 % (37-47); Hemoglobin 11.9 g/dL (12.0-16.0); Mean Corpuscular Hgb Conc 34.8 g/dL (32-36); Mean Corpuscular Volume 94.7 fL (80-100); Mean Platelet Volume 9.1 fL (7.4-10.4); Platelet Count 181 K/uL (130-400); RDW Coefficient of Variation 12.7 % (11.5-14.5); Red Blood Count 3.61 M/uL (4.2-5.4); White Blood Count 5.32 K/uL (4.8-10.8)
[2020-09-07 14:17] LABS: ALC (manual) 0.81 K/uL (1.2-3.4); ANC (manual) 4.42 K/uL (1.4-6.5); Echinocytes 1+; Lymphocytes # (manual) 0.81 K/uL (1.2-3.4); Lymphocytes % (manual) 15.2 %; Monocytes # (manual) 0.05 K/uL (0.11-0.59); Monocytes % (manual) 0.9 %; Myelocytes # (manual) 0.05 K/uL (0-0); Myelocytes % (manual) 0.9 %; Neutrophils # (manual) 4.42 K/uL (1.4-6.5)
[2020-09-07 14:19] LABS: Alanine Aminotransferase 15 U/L (12-78); Albumin Globulin Ratio 0.7 (0.9-2); Alkaline Phosphatase 44 U/L (45-117); BUN Creatinine Ratio 15.7 (10-20); Bilirubin,Total 0.5 mg/dl (0.2-1); Blood Urea Nitrogen 11 mg/dl (7-18); Calcium 8.7 mg/dl (8.5-10.1); Carbon Dioxide 18 mmol/L (21-32); Chloride 104 mmol/L (98-107); Creatinine Clr Calc Pharmacy 69.6 ml/min; Est GFR (African American) 110.2; Est GFR (Non-African American) 95.1; Globulin 4.2 gm/dl (2.5-4.0); Glucose 87 mg/dl (70-99); Sodium 131 mmol/L (136-145); Total Protein 7.2 gm/dl (6.4-8.2); Troponin I < 0.015 ng/ml (0-0.045)
[2020-09-07 14:38] LABS: Partial Thromboplastin Ratio 1.1; Partial Thromboplastin Time 29.8 Seconds (21.0-31.0)
[2020-09-07] MEDS ORDERED: REMDESIVIR 200 mg: Day 1 IV ONE (17:30)
[2020-09-07] MEDS ORDERED: IPRATROPIUM BROMIDE/ALBUTEROL respimat INH INH SCH (17:30)
[2020-09-07] MEDS ORDERED: DEXAMETHASONE SOD INJ 4 MG/ML VIAL IV SCH (17:30)
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
[2020-09-07 17:44] LABS: D Dimer 450 ug/L FEU (0-500)
[2020-09-07] MEDS ORDERED: ACETAMINOPHEN 325 MG TAB PO PRN (18:03)
[2020-09-07] MEDS: DEXAMETHASONE SOD PHOSPHATE 6 MG in SYRINGE 0 ML IV SCH (18:24)
[2020-09-07] MEDS: ONDANSETRON INJ 2 MG/ML 2 ML VIAL IV PRN (18:24)
[2020-09-07] MEDS ORDERED: IPRATROPIUM BROMIDE HFA INHALER INH SCH (19:00)
[2020-09-07] MEDS ORDERED: ALBUTEROL HFA 8 GM INHALER INH SCH (19:00)
[2020-09-07] MEDS: ALBUTEROL HFA 8 GM INHALER INH SCH ×2 (19:11→23:32)
[2020-09-07] MEDS: IPRATROPIUM BROMIDE HFA INHALER INH SCH ×2 (19:12→23:32)
[2020-09-07] MEDS: NSS 30mL Flush, Days 1-5 IV SCH (21:22)
[2020-09-07] MEDS: MONTELUKAST SODIUM 10 MG TABLET PO SCH (21:26)
[2020-09-07] MEDS: GABAPENTIN 100 MG CAP PO SCH (21:26)
[2020-09-07] MEDS: TOPIRAMATE 50 MG TAB PO SCH (21:26)
[2020-09-07] MEDS: GABAPENTIN 800 MG TAB PO SCH (21:26)
[2020-09-07] MEDS: lamoTRIgine 100 MG TAB PO SCH (21:27)
[2020-09-07] MEDS: busPIRone 15 MG TAB PO SCH (21:27)
[2020-09-08] MEDS: ENOXAPARIN INJ 40 MG/0.4 ML SYR SQ SCH ×2 (00:58→21:47)
[2020-09-08] MEDS: IPRATROPIUM BROMIDE HFA INHALER INH SCH ×6 (07:36→22:18)
[2020-09-08] MEDS: ALBUTEROL HFA 8 GM INHALER INH SCH ×6 (07:36→22:18)
[2020-09-08] MEDS: TOPIRAMATE 50 MG TAB PO SCH ×2 (08:00→21:44)
[2020-09-08] MEDS: MULTIVITAMIN TAB PO SCH (08:00)
[2020-09-08] MEDS: busPIRone 15 MG TAB PO SCH ×2 (08:00→21:45)
[2020-09-08] MEDS: CYANOCOBALAMIN (VITAMIN B-12) 2,500 MCG TAB.SUBL SL SCH (08:00)
[2020-09-08] MEDS: METOPROLOL SUCC 25MG EXT REL TAB PO SCH (08:00)
[2020-09-08] MEDS: GABAPENTIN 100 MG CAP PO SCH ×3 (08:00→21:45)
[2020-09-08] MEDS: CETIRIZINE HCL 10 MG TABLET PO SCH (08:01)
[2020-09-08] MEDS: GABAPENTIN 800 MG TAB PO SCH ×3 (08:01→21:46)
[2020-09-08] MEDS: lamoTRIgine 100 MG TAB PO SCH ×2 (08:01→21:45)
[2020-09-08] MEDS: FERROUS SULFATE 325 MG TAB PO SCH (08:01)
[2020-09-08] MEDS: CHOLECALCIFEROL 1,000 UNITS 25 MCG TAB PO SCH (08:01)
[2020-09-08] MEDS: ASCORBIC ACID 500 MG TAB PO SCH (08:01)
[2020-09-08] MEDS: UMECLIDINIUM/VILANTEROL 62.5/25MCG 7 PUFFS/INHALER INH SCH (08:02)
[2020-09-08] MEDS: PANTOprazole 40 MG TAB PO SCH (08:03)
[2020-09-08] MEDS: ONDANSETRON INJ 2 MG/ML 2 ML VIAL IV PRN (08:55)
[2020-09-08 10:11] LABS: Hemoglobin 12.5 g/dL (12.0-16.0); Mean Corpuscular Hgb Conc 33.8 g/dL (32-36); Mean Corpuscular Volume 97.6 fL (80-100); Mean Platelet Volume 9.4 fL (7.4-10.4); Platelet Count 274 K/uL (130-400); RDW Coefficient of Variation 12.7 % (11.5-14.5); RDW Standard Deviation 45.5 fL (36.4-46.3); Red Blood Count 3.79 M/uL (4.2-5.4); White Blood Count 3.55 K/uL (4.8-10.8)
[2020-09-08 10:31] LABS: Basophils # (auto) 0.01 K/uL (0-0.2); Basophils % (auto) 0.3 %; Echinocytes 1+; Immature Granulocytes # (auto) 0.12 K/uL (0.00-0.02); Immature Granulocytes % (auto) 3.4 %; Lymphocytes # (auto) 0.57 K/uL (1.2-3.4); Lymphocytes % (auto) 16.1 %; Monocytes # (auto) 0.32 K/uL (0.11-0.59); Neutrophils # (auto) 2.53 K/uL (1.4-6.5); Neutrophils % (auto) 71.2 %
[2020-09-08 11:46] LABS: Albumin Level 2.9 gm/dl (3.4-5.0); BUN Creatinine Ratio 20.8 (10-20); Bilirubin,Total 0.2 mg/dl (0.2-1); Calcium 8.6 mg/dl (8.5-10.1); Creatinine Clr Calc Pharmacy 78.9 ml/min; Est GFR (African American) 114.8; Est GFR (Non-African American) 99.1; Potassium 3.5 mmol/L (3.5-5.1); Total Protein 7.3 gm/dl (6.4-8.2)
--- NOTE | 2020-09-08 11:54 | Hospitalist Progress Note ---
Date of Service September 08, 2020 Assessment & Plan (1) COVID-19: Pt improved since yesterday. Receiving remdesivir and dexamethasone daily. Declined CP. Requiring small amount of supplemental oxygen at this time. Cont supportive care. Check inflammatory markers in am. (2) Chronic obstructive pulmonary disease: stable, no active wheezing. 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 (5) Depression: stable, cont Buspar per home regimen. (6) DVT prophylaxis: Lovenox Full Code Dispo-ok for discharge once ambulating off oxygen reliably and feeling better. Dayana Lindsay DO [facility] Hospitalist Admission and Anticipated Discharge Date Admission Date: September 07, 2020 Subjective Pt reports feeling better today than she did yesterday Had been symptomatic (cough, low grade fever, diarrhea, malaise and fatigue with body aches and headache and apathy to food) for 1.5 weeks prior to arrival. Lives with her parents who are both COVID+-->likely got infected from her father who is through the illness. Mother is currently hospitalized in next room. Pt reports came to hospital because of desaturation whith ambulation. Today ambulated to bedside commode without issue and no increased work of breathing. On 2L NC and around 93% Per notes, declined CP. She is on remdesivir and steroids. Tolerating PO a little better today. Review of Systems Review of Systems: All systems reviewed & are unremarkable except as noted in Subjective Physical Exam Physical Exam: CONSTITUTIONAL: WNWD, vitals as above, generally well- appearing EYES: normal conjunctivae, no scleral icterus ENT: external ear and nose normal, MMM RESPIRATORY: clear to auscultation bilaterally, no crackles, rales or wheezes, normal respiratory effort, supplemental oxygen in place (2L via NC) CARDIOVASCULAR: regular rate and rhythm, S1 and 2 heard without murmurs, stephenson ps or rubs, no JVD, no peripheral edema GASTROINTESTINAL: soft, nontender,nondistended, no guarding MUSCULOSKELETAL: strength 5/5 throughout, head is normocephalic and atraumatic SKIN: warm and dry NEUROLOGIC: CN 2-12 grossly intact, normal cognition, normal speech, no gross focal deficits. PSYCHIATRIC: alert cooperative and oriented to person, place and time. Results & Data Results & Data ([facility]) Vital Signs (Past 12 Hours) Vital Signs Temp Pulse Pulse Resp BP Pulse Ox 09/08/20 11:38 56 L 20 96 09/08/20 10:42 70 09/08/20 07:52 36.8 C 73 18 108/73 93 09/08/20 07:38 72 18 94 09/08/20 03:12 36.4 C L 77 18 106/63 94 Laboratory Results Short CBC 09/07/20 09/08/20 Range/Units 13:39 07:36 WBC 5.32 3.55 L (4.8-10.8) K/uL Hgb 11.9 L 12.5 (12.0-16.0) g/dL Hct 34.2 L 37.0 (37-47) % Plt Count 181 274 D (130-400) K/uL BMP 09/07/20 09/08/20 13:39 10:49 Sodium 131 L 136 Potassium 3.5 Chloride 104 109 H Carbon Dioxide 18 L 20 L BUN 11 13 Creatinine 0.68 0.60 Glucose 87 110 H Calcium 8.7 8.6 Cardiac Enzymes 09/07/20 Range/Units 13:39 Troponin I < 0.015 (0-0.045) ng/ml Liver Function 09/07/20 09/08/20 Range/Units 13:39 10:49 Total Bilirubin 0.5 0.2 (0.2-1) mg/dl Direct Bilirubin (0-0.2) mg/dl AST 24 (15-37) U/L ALT 15 14 (12-78) U/L Alkaline Phosphatase 44 L 47 (45-117) U/L Albumin 3.0 L 2.9 L (3.4-5.0) gm/dl Medications Administered Current Inpatient Medications Acetaminophen (Acetaminophen 325 Mg Tab) 650 mg PO Q6H PRN PRN Reason: Pain Stop: 10/07/20 18:02 Albuterol (Albuterol Hfa 8 Gm Inhaler) 1 puffs INH Q4R [facility] Stop: 10/07/20 18:59 Last Admin: 09/08/20 11:36 Dose: 1 puffs Documented by: Ascorbic Acid (Ascorbic Acid 500 Mg Tab) 500 mg PO DAILY@0800 [facility] Stop: 10/08/20 07:59 Last Admin: 09/08/20 08:01 Dose: 500 mg Documented by: Buspirone HCl (Buspirone 15 Mg Tab) 30 mg PO BID@799,1999 [facility] Stop: 10/07/20 19:59 Last Admin: 09/08/20 08:00 Dose: 30 mg Documented by: Cetirizine HCl (Cetirizine Hcl 10 Mg Tablet) 10 mg PO DAILY@0800 [facility] Stop: 10/08/20 07:59 Last Admin: 09/08/20 08:01 Dose: 10 mg Documented by: Cyanocobalamin (Cyanocobalamin (Vitamin B-12) 2,500 Mcg Tab.Subl) 5,000 mcg SL DAILY@0800 [facility] Stop: 10/08/20 07:59 Last Admin: 09/08/20 08:00 Dose: 5,000 mcg Documented by: Enoxaparin Sodium (Enoxaparin Inj 40 Mg/0.4 Ml Syr) 40 mg SQ DAILY@1999 [facility] Stop: 10/07/20 22:59 Last Admin: 09/08/20 00:58 Dose: 40 mg Documented by: Ferrous Sulfate (Ferrous Sulfate 325 Mg Tab) 325 mg PO DAILY@0800 [facility] Stop: 10/08/20 07:59 Last Admin: 09/08/20 08:01 Dose: 325 mg Documented by: Gabapentin (Gabapentin 100 Mg Cap) 100 mg PO TID@0800,1199,1999 [facility] Stop: 10/07/20 19:59 Last Admin: 09/08/20 08:00 Dose: 100 mg Documented by: Gabapentin (Gabapentin 800 Mg Tab) 800 mg PO TID@00,1199,1999 [facility] Stop: 10/07/20 19:59 Last Admin: 09/08/20 08:01 Dose: 800 mg Documented by: Remdesivir 100 mg/ Sodium (Chloride) 250 mls @ 250 mls/hr IV Q24H [facility]; Protocol Stop: 09/11/20 18:29 Dexamethasone Sodium Phosphate (6 mg/ Syringe) 1.5 mls @ 1 mls/min IV DAILY@1600 [facility] Stop: 10/07/20 17:59 Last Admin: 09/07/20 18:24 Dose: 1 mls/min Documented by: Ipratropium [place] (Ipratropium [place] Hfa Inhaler) 1 puffs INH Q4R [facility] Stop: 10/07/20 18:59 Last Admin: 09/08/20 11:36 Dose: 1 puffs Documented by: Lamotrigine (Lamotrigine 100 Mg Tab) 150 mg PO BID@ [facility] Stop: 10/07/20 19:59 Last Admin: 09/08/20 08:01 Dose: 150 mg Documented by: Metoprolol Succinate (Metoprolol Succ 25mg Ext Rel Tab) 25 mg PO DAILY@08 [facility] Stop: 10/08/20 07:59 Last Admin: 09/08/20 08:00 Dose: 25 mg Documented by: Montelukast Sodium (Montelukast Sodium 10 Mg Tablet) 10 mg PO DAILY@1999 [facility] Stop: 10/07/20 19:59 Last Admin: 09/07/20 21:26 Dose: 10 mg Documented by: Multivitamins (Multivitamin Tab) 1 tab PO DAILY@08 [facility] Stop: 10/08/20 07:59 Last Admin: 09/08/20 08:00 Dose: 1 tab Documented by: Ondansetron HCl (Ondansetron Inj 2 Mg/Ml 2 Ml Vial) 4 mg IV Q6H PRN PRN Reason: Nausea Stop: 10/07/20 17:55 Last Admin: 09/08/20 08:55 Dose: 4 mg Documented by: Pantoprazole Sodium (Pantoprazole 40 Mg Tab) 40 mg PO DAILY@08 [facility] Stop: 10/08/20 07:59 Last Admin: 09/08/20 08:03 Dose: 40 mg Documented by: Sodium Chloride (Nss 30ml Flush, Days 1-5) 30 ml IV Q24H [facility] Stop: 09/11/20 17:31 Last Admin: 09/07/20 21:22 Dose: 30 ml Documented by: Topiramate (Topiramate 50 Mg Tab) 50 mg PO BID@ [facility] Stop: 10/07/20 19:59 Last Admin: 09/08/20 08:00 Dose: 50 mg Documented by: Umeclidinium/Vilanterol (Umeclidinium/Vilanterol 62.5/25mcg 7 Puffs/Inhaler) 1 puffs INH DAILY@0800 [facility] Stop: 10/08/20 07:59 Last Admin: 09/08/20 08:02 Dose: 1 puffs Documented by: Vitamin D (Cholecalciferol 1,000 Units 25 Mcg Tab) 1,000 units PO DAILY@0800 [facility] Stop: 10/08/20 07:59 Last Admin: 09/08/20 08:01 Dose: 1,000 units Documented by:
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
[2020-09-08] MEDS: DEXAMETHASONE SOD PHOSPHATE 6 MG in SYRINGE 0 ML IV SCH (17:57)
[2020-09-08] MEDS: REMDESIVIR 100mg: Days 2-5 IV SCH (17:57)
[2020-09-08] MEDS: NSS 30mL Flush, Days 1-5 IV SCH (19:09)
[2020-09-08] MEDS: MONTELUKAST SODIUM 10 MG TABLET PO SCH (21:47)
[2020-09-09] MEDS: ALBUTEROL HFA 8 GM INHALER INH SCH ×4 (03:18→17:35)
[2020-09-09] MEDS: IPRATROPIUM BROMIDE HFA INHALER INH SCH ×4 (03:18→17:35)
[2020-09-09 07:33] LABS: Basophils # (auto) 0.01 K/uL (0-0.2); Basophils % (auto) 0.2 %; Hematocrit (blood only) 37.1 % (37-47); Hemoglobin 12.5 g/dL (12.0-16.0); Immature Granulocytes # (auto) 0.11 K/uL (0.00-0.02); Immature Granulocytes % (auto) 1.7 %; Lymphocytes # (auto) 0.88 K/uL (1.2-3.4); Lymphocytes % (auto) 13.3 %; Mean Corpuscular Hemoglobin 32.9 pg (25-34); Mean Corpuscular Hgb Conc 33.7 g/dL (32-36); Mean Corpuscular Volume 97.6 fL (80-100); Mean Platelet Volume 8.7 fL (7.4-10.4); Monocytes # (auto) 0.45 K/uL (0.11-0.59); Monocytes % (auto) 6.8 %; Neutrophils # (auto) 5.15 K/uL (1.4-6.5); Platelet Count 316 K/uL (130-400); RDW Coefficient of Variation 12.8 % (11.5-14.5); RDW Standard Deviation 45.4 fL (36.4-46.3)
[2020-09-09] MEDS: MULTIVITAMIN TAB PO SCH (07:39)
[2020-09-09] MEDS: CHOLECALCIFEROL 1,000 UNITS 25 MCG TAB PO SCH (07:40)
[2020-09-09] MEDS: GABAPENTIN 800 MG TAB PO SCH ×3 (07:41→19:30)
[2020-09-09] MEDS: lamoTRIgine 100 MG TAB PO SCH ×2 (07:41→19:57)
[2020-09-09] MEDS: ASCORBIC ACID 500 MG TAB PO SCH (07:42)
[2020-09-09] MEDS: CYANOCOBALAMIN (VITAMIN B-12) 2,500 MCG TAB.SUBL SL SCH (07:42)
[2020-09-09] MEDS: CETIRIZINE HCL 10 MG TABLET PO SCH (07:42)
[2020-09-09] MEDS: busPIRone 15 MG TAB PO SCH ×2 (07:42→19:56)
[2020-09-09] MEDS: METOPROLOL SUCC 25MG EXT REL TAB PO SCH (07:43)
[2020-09-09] MEDS: GABAPENTIN 100 MG CAP PO SCH ×3 (07:43→19:55)
[2020-09-09] MEDS: FERROUS SULFATE 325 MG TAB PO SCH (07:43)
[2020-09-09] MEDS: PANTOprazole 40 MG TAB PO SCH (07:43)
[2020-09-09] MEDS: TOPIRAMATE 50 MG TAB PO SCH ×2 (07:43→19:55)
[2020-09-09] MEDS: UMECLIDINIUM/VILANTEROL 62.5/25MCG 7 PUFFS/INHALER INH SCH (07:45)
[2020-09-09 08:07] LABS: Alanine Aminotransferase 14 U/L (12-78); Albumin Level 2.9 gm/dl (3.4-5.0); Aspartate Aminotransferase 18 U/L (15-37); Bilirubin Direct < 0.1 mg/dl (0-0.2); Blood Urea Nitrogen 14 mg/dl (7-18); C Reactive Protein 6.51 mg/dl (0-0.29); Calcium 8.9 mg/dl (8.5-10.1); Carbon Dioxide 20 mmol/L (21-32); Chloride 112 mmol/L (98-107); Creatinine Clr Calc Pharmacy 76.3 ml/min; Est GFR (African American) 113.6; Glucose 123 mg/dl (70-99); Potassium 3.8 mmol/L (3.5-5.1); Sodium 139 mmol/L (136-145)
[2020-09-09 08:12] LABS: Alkaline Phosphatase 49 U/L (45-117); Bilirubin,Total 0.3 mg/dl (0.2-1); Ferritin 1232.4 ng/ml (8-388); Total Protein 7.4 gm/dl (6.4-8.2)
--- NOTE | 2020-09-09 13:47 | Electrocardiogram Report ---
Test Reason : Blood Pressure : / mmHG Vent. Rate : 072 BPM Atrial Rate : 072 BPM P-R Int : 156 ms QRS Dur : 086 ms QT Int : 410 ms P-R-T Axes : 016 024 047 degrees QTc Int : 448 ms Normal sinus rhythm Normal ECG When compared with ECG of 04-SEP-2020 17:46, No significant change was found Confirmed by Porter Ann ([id number]) on 09/09/2020 1:46:57 PM Referred By: REFERRED SELF Confirmed By:Porter Ann
[2020-09-09] MEDS: DEXAMETHASONE SOD PHOSPHATE 6 MG in SYRINGE 0 ML IV SCH (15:37)
[2020-09-09] MEDS ORDERED: FUROSEMIDE 40 MG in SYRINGE 0 ML IV ONE (16:15)
[2020-09-09] MEDS ORDERED: POTASSIUM CHLORIDE CRTAB 20 MEQ TABCR PO ONE (16:15)
--- NOTE | 2020-09-09 16:15 | Hospitalist Progress Note ---
Date of Service September 09, 2020 Assessment & Plan (1) COVID-19: Clinically worse today with new crackles throughout lung parra. Lasix 40mg IV given and will monitor response. Receiving remdesivir and dexamethasone daily. Declined conv. plasma per H&P. Requiring small amount of supplemental oxygen at this time. Cont supportive care. (2) Chronic obstructive pulmonary disease: stable, no active wheezing. 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 (5) Depression: stable, cont Buspar per home regimen. (6) DVT prophylaxis: Lovenox 40mg daily Full Code Dispo-ok for discharge once ambulating off oxygen reliably and feeling better. Dayana Lindsay DO [facility] Hospitalist Admission and Anticipated Discharge Date Admission Date: September 07, 2020 Subjective +central chest pain with deep breaths afebrile breathing about the same poor appetite Review of Systems Review of Systems: All systems reviewed & are unremarkable except as noted in Subjective Physical Exam Physical Exam: CONSTITUTIONAL: WNWD, vitals as above, generally well- appearing EYES: normal conjunctivae, no scleral icterus ENT: external ear and nose normal, MMM RESPIRATORY: Crackles throughout all lung parra. No wheezing or rales present. Normal respiratory effort, supplemental oxygen in place (2L via NC) CARDIOVASCULAR: regular rate and rhythm, S1 and 2 heard without murmurs, gallops or rubs, no JVD, no peripheral edema GASTROINTESTINAL: soft, nontender, nondistended, no guarding MUSCULOSKELETAL: strength 5/5 throughout, head is normocephalic and atraumatic SKIN: warm and dry NEUROLOGIC: CN 2-12 grossly intact, normal cognition, normal speech, no gross focal deficits. PSYCHIATRIC: alert cooperative and oriented to person, place and time. Results & Data Results & Data ([facility]) Vital Signs (Past 12 Hours) Vital Signs Temp Pulse Pulse Resp BP Pulse Ox 09/09/20 15:13 36.7 C 75 13 111/71 94 09/09/20 11:43 36.6 C 73 18 93/71 L 92 09/09/20 11:26 75 16 95 09/09/20 07:47 79 22 105/68 93 10/25/20 07:30 70 18 94 09/09/20 07:28 65 09/09/20 06:36 36.7 C 67 17 104/70 94 Laboratory Results Short CBC 09/09/20 Range/Units 07:10 WBC 6.60 (4.8-10.8) K/uL Hgb 12.5 (12.0-16.0) g/dL Hct 37.1 (37-47) % Plt Count 316 (130-400) K/uL BMP 09/09/20 07:10 Sodium 139 Potassium 3.8 Chloride 112 H Carbon Dioxide 20 L BUN 14 Creatinine 0.62 Glucose 123 H Calcium 8.9 Liver Function 09/09/20 Range/Units 07:10 Total Bilirubin 0.3 (0.2-1) mg/dl Direct Bilirubin < 0.1 (0-0.2) mg/dl AST 18 (15-37) U/L ALT 14 (12-78) U/L Alkaline Phosphatase 49 (45-117) U/L Albumin 2.9 L (3.4-5.0) gm/dl Medications Administered Current Inpatient Medications Acetaminophen (Acetaminophen 325 Mg Tab) 650 mg PO Q6H PRN PRN Reason: Pain Stop: 10/07/20 18:02 Last Admin: 09/09/20 15:37 Dose: 650 mg Documented by: Albuterol (Albuterol Hfa 8 Gm Inhaler) 1 puffs INH Q4R PRN PRN Reason: SOB/wheezing Stop: 10/07/20 18:59 Ascorbic Acid (Ascorbic Acid 500 Mg Tab) 500 mg PO DAILY@0800 [facility] Stop: 10/08/20 07:59 Last Admin: 09/09/20 07:42 Dose: 500 mg Documented by: Buspirone HCl (Buspirone 15 Mg Tab) 30 mg PO BID@0800,1999 [facility] Stop: 10/07/20 19:59 Last Admin: 09/09/20 07:42 Dose: 30 mg Documented by: Cetirizine HCl (Cetirizine Hcl 10 Mg Tablet) 10 mg PO DAILY@0800 [facility] Stop: 10/08/20 07:59 Last Admin: 09/09/20 07:42 Dose: 10 mg Documented by: Cyanocobalamin (Cyanocobalamin (Vitamin B-12) 2,500 Mcg Tab.Subl) 5,000 mcg SL DAILY@0800 [facility] Stop: 10/08/20 07:59 Last Admin: 09/09/20 07:42 Dose: 5,000 mcg Documented by: Dexamethasone (Dexamethasone 4 Mg Tab) 6 mg PO DAILY [facility] Stop: 10/10/20 08:59 Enoxaparin Sodium (Enoxaparin Inj 40 Mg/0.4 Ml Syr) 40 mg SQ DAILY@1999 [facility] Stop: 10/07/20 22:59 Last Admin: 09/08/20 21:47 Dose: 40 mg Documented by: Ferrous Sulfate (Ferrous Sulfate 325 Mg Tab) 325 mg PO DAILY@0800 [facility] Stop: 10/08/20 07:59 Last Admin: 09/09/20 07:43 Dose: 325 mg Documented by: Gabapentin (Gabapentin 100 Mg Cap) 100 mg PO TID@0800,1199,1999 [facility] Stop: 10/07/20 19:59 Last Admin: 09/09/20 11:59 Dose: 100 mg Documented by: Gabapentin (Gabapentin 800 Mg Tab) 800 mg PO TID@0800,1199,1999 [facility] Stop: 10/07/20 19:59 Last Admin: 09/09/20 11:59 Dose: 800 mg Documented by: Guaifenesin/Codeine Phosphate (Guaifenesin/Codeine 200mg/20mg 10ml Udc) 10 ml PO Q6H PRN PRN Reason: Cough Stop: 10/09/20 15:49 Remdesivir 100 mg/ Sodium (Chloride) 250 mls @ 250 mls/hr IV Q24H [facility]; Protocol Stop: 09/11/20 18:29 Last Infusion: 09/08/20 19:09 Dose: Infused Documented by: Furosemide 40 mg/ Syringe 4 mls @ 4 mls/min IV ONE ONE Stop: 09/09/20 16:16 Ipratropium [place] (Ipratropium [place] Hfa Inhaler) 1 puffs INH Q4R PRN PRN Reason: SOB/wheezing Stop: 10/07/20 18:59 Lamotrigine (Lamotrigine 100 Mg Tab) 150 mg PO BID@0800,1999 [facility] Stop: 10/07/20 19:59 Last Admin: 09/09/20 07:41 Dose: 150 mg Documented by: Metoprolol Succinate (Metoprolol Succ 25mg Ext Rel Tab) 25 mg PO DAILY@0800 [facility] Stop: 10/08/20 07:59 Last Admin: 09/09/20 07:43 Dose: 25 mg Documented by: Montelukast Sodium (Montelukast Sodium 10 Mg Tablet) 10 mg PO DAILY@1999 [facility] Stop: 10/07/20 19:59 Last Admin: 09/08/20 21:47 Dose: 10 mg Documented by: Multivitamins (Multivitamin Tab) 1 tab PO DAILY@08 [facility] Stop: 10/08/20 07:59 Last Admin: 09/09/20 07:39 Dose: 1 tab Documented by: Ondansetron HCl (Ondansetron Inj 2 Mg/Ml 2 Ml Vial) 4 mg IV Q6H PRN PRN Reason: Nausea Stop: 10/07/20 17:55 Last Admin: 09/08/20 08:55 Dose: 4 mg Documented by: Pantoprazole Sodium (Pantoprazole 40 Mg Tab) 40 mg PO DAILY@08 [facility] Stop: 10/08/20 07:59 Last Admin: 09/09/20 07:43 Dose: 40 mg Documented by: Potassium Chloride (Potassium Chloride 20 Meq Tabcr) 20 meq PO ONE ONE Stop: 09/09/20 16:16 Sodium Chloride (Nss 30ml Flush, Days 1-5) 30 ml IV Q24H [facility] Stop: 09/11/20 17:31 Last Admin: 09/08/20 19:09 Dose: 30 ml Documented by: Topiramate (Topiramate 50 Mg Tab) 50 mg PO BID@ [facility] Stop: 10/07/20 19:59 Last Admin: 09/09/20 07:43 Dose: 50 mg Documented by: Umeclidinium/Vilanterol (Umeclidinium/Vilanterol 62.5/25mcg 7 Puffs/Inhaler) 1 puffs INH DAILY@08 [facility] Stop: 10/08/20 07:59 Last Admin: 09/09/20 07:45 Dose: 1 puffs Documented by: Vitamin D (Cholecalciferol 1,000 Units 25 Mcg Tab) 1,000 units PO DAILY@0800 [facility] Stop: 10/08/20 07:59 Last Admin: 09/09/20 07:40 Dose: 1,000 units Documented by: Zinc Sulfate (Zinc Sulfate 220 Mg Capsule) 220 mg PO QAM [facility] Stop: 10/09/20 16:29
[2020-09-09] MEDS: ZINC SULFATE 220 MG CAPSULE PO SCH (18:28)
[2020-09-09] MEDS: REMDESIVIR 100mg: Days 2-5 IV SCH (19:20)
[2020-09-09] MEDS: ENOXAPARIN INJ 40 MG/0.4 ML SYR SQ SCH (19:26)
[2020-09-09] MEDS: NSS 30mL Flush, Days 1-5 IV SCH (19:56)
[2020-09-09] MEDS: MONTELUKAST SODIUM 10 MG TABLET PO SCH (19:57)
[2020-09-10] MEDS: IPRATROPIUM BROMIDE HFA INHALER INH PRN ×2 (04:47→23:05)
[2020-09-10] MEDS: ALBUTEROL HFA 8 GM INHALER INH PRN ×2 (04:47→23:05)
[2020-09-10 08:14] LABS: Hematocrit (blood only) 35.4 % (37-47); Hemoglobin 12.1 g/dL (12.0-16.0); Mean Corpuscular Hemoglobin 33.1 pg (25-34); Mean Corpuscular Hgb Conc 34.2 g/dL (32-36); Mean Corpuscular Volume 96.7 fL (80-100); Mean Platelet Volume 8.6 fL (7.4-10.4); Platelet Count 333 K/uL (130-400); RDW Coefficient of Variation 12.8 % (11.5-14.5); RDW Standard Deviation 45.3 fL (36.4-46.3); Red Blood Count 3.66 M/uL (4.2-5.4)
[2020-09-10 08:38] LABS: ALC (manual) 0.76 K/uL (1.2-3.4); ANC (manual) 9.95 K/uL (1.4-6.5); Lymphocytes # (manual) 0.76 K/uL (1.2-3.4); Monocytes # (manual) 0.19 K/uL (0.11-0.59); Monocytes % (manual) 1.7 %; Neutrophils # (manual) 9.95 K/uL (1.4-6.5); Neutrophils % (manual) 91.3 %
[2020-09-10 09:09] LABS: Albumin Level 2.8 gm/dl (3.4-5.0); BUN Creatinine Ratio 25.6 (10-20); Bilirubin Direct 0.1 mg/dl (0-0.2); Calcium 8.6 mg/dl (8.5-10.1); Creatinine Clr Calc Pharmacy 84.5 ml/min; Est GFR (African American) 117.5; Est GFR (Non-African American) 101.3; Potassium 3.5 mmol/L (3.5-5.1)
[2020-09-10 09:12] LABS: Bilirubin,Total 0.5 mg/dl (0.2-1)
[2020-09-10] MEDS: GABAPENTIN 100 MG CAP PO SCH ×3 (10:10→20:23)
[2020-09-10] MEDS: CYANOCOBALAMIN (VITAMIN B-12) 2,500 MCG TAB.SUBL SL SCH (10:11)
[2020-09-10] MEDS: MULTIVITAMIN TAB PO SCH (10:11)
[2020-09-10] MEDS: TOPIRAMATE 50 MG TAB PO SCH ×2 (10:11→20:24)
[2020-09-10] MEDS: PANTOprazole 40 MG TAB PO SCH (10:12)
[2020-09-10] MEDS: ZINC SULFATE 220 MG CAPSULE PO SCH (10:12)
[2020-09-10] MEDS: dexAMETHasone 4 MG TAB PO SCH (10:12)
[2020-09-10] MEDS: busPIRone 15 MG TAB PO SCH ×2 (10:13→20:23)
[2020-09-10] MEDS: lamoTRIgine 100 MG TAB PO SCH ×2 (10:13→20:25)
[2020-09-10] MEDS: METOPROLOL SUCC 25MG EXT REL TAB PO SCH (10:14)
[2020-09-10] MEDS: FERROUS SULFATE 325 MG TAB PO SCH (10:14)
[2020-09-10] MEDS: CHOLECALCIFEROL 1,000 UNITS 25 MCG TAB PO SCH (10:14)
[2020-09-10] MEDS: ASCORBIC ACID 500 MG TAB PO SCH (10:14)
[2020-09-10] MEDS: CETIRIZINE HCL 10 MG TABLET PO SCH (10:14)
[2020-09-10] MEDS: UMECLIDINIUM/VILANTEROL 62.5/25MCG 7 PUFFS/INHALER INH SCH (10:15)
[2020-09-10] MEDS: GABAPENTIN 800 MG TAB PO SCH ×3 (10:15→20:24)
[2020-09-10] MEDS: ONDANSETRON INJ 2 MG/ML 2 ML VIAL IV PRN (10:21)
[2020-09-10] MEDS ORDERED: ACETAMINOPHEN 325 MG TAB PO ONE (12:11)
[2020-09-10] MEDS ORDERED: PSEUDOEPHEDRINE HCL 30 MG TAB PO PRN (12:30)
--- NOTE | 2020-09-10 15:18 | XRay Report ---
XR chest 1V portable CLINICAL HISTORY: +COVID, increased cough, CP, congestion COMPARISON STUDY: Chest radiograph September 07, 2020. FINDINGS: Lung volumes are at the lower limits of normal. There is no pneumothorax or pleural effusio n. Postoperative findings within the cervical spine as well as the lumbar spine are incidentally note d. Cardiac size is normal. Mediastinal contours are stable. Bibasilar opacities have increased. IMPRESSION: Increase in bibasilar opacities which favor an infectious process. ACT 112: Negative or not required by law. Electronically signed by: Chuck Buenrostro M.D. 09/10/2020 3:16 PM
--- NOTE | 2020-09-10 16:07 | Hospitalist Progress Note ---
Date of Service September 10, 2020 Assessment & Plan (1) COVID-19: Pt improved since yesterday. Receiving remdesivir and dexamethasone daily. Decided she was fine with convalescent plasma and this was ordered--per blood bank should be transfused tonight. Requiring small amount of supplemental oxygen at this time. Clinically looks and feels worse today. Repeat CXR showed worsening bilateral infiltrates. Despite negative procalcitonin, with clinical worsening I did add a short course of antibiotics to see if this helps as there is no data on COVID and use of antibiotics in the hospital at this point. Pleurisy likely a result of the pulmonary infection. Doubt very strongly any PE as patient is not tachycardic or requiring significant amounts of oxygen but this was considered. Repeat D-dimer was not trending up significantly. Cont supportive care. Check inflammatory markers in am after receiving plasma tonight. (2) Chronic obstructive pulmonary disease: stable, no active wheezing. 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 (5) Depression: stable, cont Buspar per home regimen. (6) DVT prophylaxis: Lovenox Full Code Dispo-ok for discharge once ambulating off oxygen reliably and feeling better. For now, this is uncertain. Dayana Lindsay DO [facility] Hospitalist Admission and Anticipated Discharge Date Admission Date: September 07, 2020 Subjective feels worse today continues to have pleurisy, congestion and increased cough lasix was not helpful for her yesterday despite 2L diuresis she was asking about convalescent plasma, which she has now agreed to and which was ordered denies diarrhea poor appetite afebrile Review of Systems Review of Systems: All systems reviewed & are unremarkable except as noted in Subjective Physical Exam Physical Exam: CONSTITUTIONAL: WNWD, vitals as above, generally ill- appearing, worse than yesterday clinically. EYES: normal conjunctivae, no scleral icterus ENT: external ear and nose normal, MMM RESPIRATORY: crackles throughout all lung parra throughout. No wheezes or rales. Normal respiratory effort on supplemental oxygen in place (2L via NC) CARDIOVASCULAR: regular rate and rhythm, S1 and 2 heard without murmurs, gallops or rubs, no JVD, no peripheral edema GASTROINTESTINAL: soft, nontender, nondistended, no guarding MUSCULOSKELETAL: strength 5/5 throughout, head is normocephalic and atraumatic SKIN: warm and dry NEUROLOGIC: CN 2-12 grossly intact, normal cognition, normal speech, no gross focal deficits. PSYCHIATRIC: alert cooperative and oriented to person, place and time. Results & Data Results & Data ([facility]) Vital Signs (Past 12 Hours) Vital Signs Temp Pulse Pulse Resp BP Pulse Ox 09/10/20 09:07 37.0 C 84 24 104/65 90 09/10/20 08:00 74 09/10/20 04:51 79 18 88 L 09/10/20 04:21 36.7 C 77 18 116/73 92 Laboratory Results Short CBC 09/10/20 Range/Units 07:25 WBC 10.90 H (4.8-10.8) K/uL Hgb 12.1 (12.0-16.0) g/dL Hct 35.4 L (37-47) % Plt Count 333 (130-400) K/uL BMP 09/10/20 07:25 Sodium 139 Potassium 3.5 Chloride 110 H Carbon Dioxide 21 BUN 14 Creatinine 0.56 L Glucose 95 Calcium 8.6 Liver Function 09/10/20 Range/Units 07:25 Total Bilirubin 0.5 (0.2-1) mg/dl Direct Bilirubin 0.1 (0-0.2) mg/dl AST 15 (15-37) U/L ALT 12 (12-78) U/L Alkaline Phosphatase 48 (45-117) U/L Albumin 2.8 L (3.4-5.0) gm/dl Medications Administered Current Inpatient Medications Acetaminophen (Acetaminophen 325 Mg Tab) 650 mg PO Q6H PRN PRN Reason: Pain Stop: 10/07/20 18:02 Last Admin: 09/09/20 15:37 Dose: 650 mg Documented by: Acetaminophen (Acetaminophen 325 Mg Tab) 650 mg PO PRE-TREAT ONE Stop: 09/10/20 20:13 Albuterol (Albuterol Hfa 8 Gm Inhaler) 1 puffs INH Q4R PRN PRN Reason: SOB/wheezing Stop: 10/07/20 18:59 Last Admin: 09/10/20 04:47 Dose: 1 puffs Documented by: Ascorbic Acid (Ascorbic Acid 500 Mg Tab) 500 mg PO DAILY@0800 [facility] Stop: 10/08/20 07:59 Last Admin: 09/10/20 10:14 Dose: 500 mg Documented by: Buspirone HCl (Buspirone 15 Mg Tab) 30 mg PO BID@ [facility] Stop: 10/07/20 19:59 Last Admin: 09/10/20 10:13 Dose: 30 mg Documented by: Cetirizine HCl (Cetirizine Hcl 10 Mg Tablet) 10 mg PO DAILY@08 [facility] Stop: 10/08/20 07:59 Last Admin: 09/10/20 10:14 Dose: 10 mg Documented by: Cyanocobalamin (Cyanocobalamin (Vitamin B-12) 2,500 Mcg Tab.Subl) 5,000 mcg SL DAILY@799 [facility] Stop: 10/08/20 07:59 Last Admin: 09/10/20 10:11 Dose: 5,000 mcg Documented by: Dexamethasone (Dexamethasone 4 Mg Tab) 6 mg PO DAILY [facility] Stop: 10/10/20 08:59 Last Admin: 09/10/20 10:12 Dose: 6 mg Documented by: Enoxaparin Sodium (Enoxaparin Inj 40 Mg/0.4 Ml Syr) 40 mg SQ DAILY@1999 [facility] Stop: 10/07/20 22:59 Last Admin: 09/09/20 19:26 Dose: 40 mg Documented by: Ferrous Sulfate (Ferrous Sulfate 325 Mg Tab) 325 mg PO DAILY@08 [facility] Stop: 10/08/20 07:59 Last Admin: 09/10/20 10:14 Dose: 325 mg Documented by: Gabapentin (Gabapentin 100 Mg Cap) 100 mg PO TID@799, [facility] Stop: 10/07/20 19:59 Last Admin: 09/10/20 12:36 Dose: 100 mg Documented by: Gabapentin (Gabapentin 800 Mg Tab) 800 mg PO TID@799, [facility] Stop: 10/07/20 19:59 Last Admin: 09/10/20 12:36 Dose: 800 mg Documented by: Guaifenesin/Codeine Phosphate (Guaifenesin/Codeine 200mg/20mg 10ml Udc) 10 ml PO Q6H PRN PRN Reason: Cough Stop: 10/09/20 15:49 Last Admin: 09/10/20 04:34 Dose: 10 ml Documented by: Remdesivir 100 mg/ Sodium (Chloride) 250 mls @ 250 mls/hr IV Q24H [facility]; Protocol Stop: 09/11/20 18:29 Last Infusion: 09/09/20 20:20 Dose: Infused Documented by: Ceftriaxone Sodium 1,000 mg/ (Dextrose) 50 mls @ 100 mls/hr IV Q24H [facility]; Protocol Stop: 09/17/20 16:14 Doxycycline Hyclate 100 mg/ (Dextrose) 110 mls @ 50 mls/hr IV Q12H [facility] Stop: 09/17/20 16:14 Ipratropium [place] (Ipratropium [place] Hfa Inhaler) 1 puffs INH Q4R PRN PRN Reason: SOB/wheezing Stop: 10/07/20 18:59 Last Admin: 09/10/20 04:47 Dose: 1 puffs Documented by: Lamotrigine (Lamotrigine 100 Mg Tab) 150 mg PO BID@08,1999 [facility] Stop: 10/07/20 19:59 Last Admin: 09/10/20 10:13 Dose: 150 mg Documented by: Metoprolol Succinate (Metoprolol Succ 25mg Ext Rel Tab) 25 mg PO DAILY@08 [facility] Stop: 10/08/20 07:59 Last Admin: 09/10/20 10:14 Dose: 25 mg Documented by: Montelukast Sodium (Montelukast Sodium 10 Mg Tablet) 10 mg PO DAILY@1999 [facility] Stop: 10/07/20 19:59 Last Admin: 09/09/20 19:57 Dose: 10 mg Documented by: Multivitamins (Multivitamin Tab) 1 tab PO DAILY@08 [facility] Stop: 10/08/20 07:59 Last Admin: 09/10/20 10:11 Dose: 1 tab Documented by: Ondansetron HCl (Ondansetron Inj 2 Mg/Ml 2 Ml Vial) 4 mg IV Q6H PRN PRN Reason: Nausea Stop: 10/07/20 17:55 Last Admin: 09/10/20 10:21 Dose: 4 mg Documented by: Pantoprazole Sodium (Pantoprazole 40 Mg Tab) 40 mg PO DAILY@0800 [facility] Stop: 10/08/20 07:59 Last Admin: 09/10/20 10:12 Dose: 40 mg Documented by: Pseudoephedrine HCl (Pseudoephedrine Hcl 30 Mg Tab) 60 mg PO Q6H PRN PRN Reason: congestion Stop: 09/12/20 12:29 Sodium Chloride (Nss 30ml Flush, Days 1-5) 30 ml IV Q24H [facility] Stop: 09/11/20 17:31 Last Admin: 09/09/20 19:56 Dose: 30 ml Documented by: Topiramate (Topiramate 50 Mg Tab) 50 mg PO BID@0800,2000 [facility] Stop: 10/07/20 19:59 Last Admin: 09/10/20 10:11 Dose: 50 mg Documented by: Umeclidinium/Vilanterol (Umeclidinium/Vilanterol 62.5/25mcg 7 Puffs/Inhaler) 1 puffs INH DAILY@0800 [facility] Stop: 10/08/20 07:59 Last Admin: 09/10/20 10:15 Dose: 1 puffs Documented by: Vitamin D (Cholecalciferol 1,000 Units 25 Mcg Tab) 1,000 units PO DAILY@0800 [facility] Stop: 10/08/20 07:59 Last Admin: 09/10/20 10:14 Dose: 1,000 units Documented by: Zinc Sulfate (Zinc Sulfate 220 Mg Capsule) 220 mg PO QAM [facility] Stop: 10/09/20 16:29 Last Admin: 09/10/20 10:12 Dose: 220 mg Documented by:
[2020-09-10 16:16] LABS: D Dimer 580 ug/L FEU (0-500)
[2020-09-10] MEDS: cefTRIAXone SODIUM 1,000 MG in DEXTROSE 5% 50 ML IV SCH (17:01)
[2020-09-10] MEDS: DOXYCYCLINE HYCLATE 100 MG in DEXTROSE 5% 100 ML IV SCH (17:02)
[2020-09-10] MEDS: REMDESIVIR 100mg: Days 2-5 IV SCH (19:22)
[2020-09-10] MEDS: ENOXAPARIN INJ 40 MG/0.4 ML SYR SQ SCH (20:22)
[2020-09-10] MEDS: MONTELUKAST SODIUM 10 MG TABLET PO SCH (20:24)
[2020-09-10] MEDS: NSS 30mL Flush, Days 1-5 IV SCH (20:30)
[2020-09-11] MEDS: DOXYCYCLINE HYCLATE 100 MG in DEXTROSE 5% 100 ML IV SCH ×2 (05:25→15:37)
[2020-09-11 07:05] LABS: Basophils # (auto) 0.01 K/uL (0-0.2); Basophils % (auto) 0.1 %; Eosinophils # (auto) 0.01 K/uL (0-0.5); Eosinophils % (auto) 0.1 %; Hematocrit (blood only) 32.7 % (37-47); Hemoglobin 11.1 g/dL (12.0-16.0); Immature Granulocytes # (auto) 0.24 K/uL (0.00-0.02); Immature Granulocytes % (auto) 2.5 %; Lymphocytes # (auto) 1.09 K/uL (1.2-3.4); Lymphocytes % (auto) 11.3 %; Mean Corpuscular Hemoglobin 32.9 pg (25-34); Mean Corpuscular Hgb Conc 33.9 g/dL (32-36); Mean Platelet Volume 8.3 fL (7.4-10.4); Monocytes # (auto) 0.54 K/uL (0.11-0.59); Monocytes % (auto) 5.6 %; Neutrophils # (auto) 7.73 K/uL (1.4-6.5); Neutrophils % (auto) 80.4 %; Platelet Count 333 K/uL (130-400); RDW Coefficient of Variation 12.8 % (11.5-14.5); RDW Standard Deviation 45.1 fL (36.4-46.3); Red Blood Count 3.37 M/uL (4.2-5.4); White Blood Count 9.62 K/uL (4.8-10.8)
[2020-09-11 07:39] LABS: Albumin Level 2.7 gm/dl (3.4-5.0); BUN Creatinine Ratio 23.4 (10-20); Calcium 8.6 mg/dl (8.5-10.1); Creatinine Clr Calc Pharmacy 94.6 ml/min; Est GFR (African American) 121.9; Est GFR (Non-African American) 105.2; Potassium 3.1 mmol/L (3.5-5.1)
[2020-09-11 07:42] LABS: Bilirubin,Total 0.4 mg/dl (0.2-1)
[2020-09-11] MEDS: CYANOCOBALAMIN (VITAMIN B-12) 2,500 MCG TAB.SUBL SL SCH (07:55)
[2020-09-11] MEDS: lamoTRIgine 100 MG TAB PO SCH ×2 (07:56→20:03)
[2020-09-11] MEDS: CHOLECALCIFEROL 1,000 UNITS 25 MCG TAB PO SCH (07:56)
[2020-09-11] MEDS: dexAMETHasone 4 MG TAB PO SCH (07:56)
[2020-09-11] MEDS: PANTOprazole 40 MG TAB PO SCH (07:56)
[2020-09-11] MEDS: TOPIRAMATE 50 MG TAB PO SCH ×2 (07:57→20:02)
[2020-09-11] MEDS: GABAPENTIN 800 MG TAB PO SCH ×3 (07:57→20:01)
[2020-09-11] MEDS: CETIRIZINE HCL 10 MG TABLET PO SCH (07:57)
[2020-09-11] MEDS: FERROUS SULFATE 325 MG TAB PO SCH (07:58)
[2020-09-11] MEDS: ZINC SULFATE 220 MG CAPSULE PO SCH (07:58)
[2020-09-11] MEDS: METOPROLOL SUCC 25MG EXT REL TAB PO SCH (07:58)
[2020-09-11] MEDS: MULTIVITAMIN TAB PO SCH (07:59)
[2020-09-11] MEDS: busPIRone 15 MG TAB PO SCH ×2 (07:59→20:00)
[2020-09-11] MEDS: GABAPENTIN 100 MG CAP PO SCH ×3 (07:59→20:02)
[2020-09-11] MEDS: ASCORBIC ACID 500 MG TAB PO SCH (07:59)
[2020-09-11 08:33] LABS: Bilirubin Direct 0.2 mg/dl (0-0.2)
[2020-09-11] MEDS: UMECLIDINIUM/VILANTEROL 62.5/25MCG 7 PUFFS/INHALER INH SCH (10:00)
[2020-09-11] MEDS ORDERED: POTASSIUM CHLORIDE CRTAB 20 MEQ TABCR PO STA (10:49)
[2020-09-11] MEDS ORDERED: POTASSIUM ACETATE 10 MEQ in 0.9 % SODIUM CHLORIDE 100 ML IV ONE (11:15)
[2020-09-11] MEDS: ONDANSETRON INJ 2 MG/ML 2 ML VIAL IV PRN ×2 (11:31→18:44)
[2020-09-11 12:03] LABS: Magnesium 2.5 mg/dl (1.8-2.4); Phosphorus 2.2 mg/dl (2.5-4.9)
--- NOTE | 2020-09-11 13:54 | Hospitalist Progress Note ---
Date of Service September 11, 2020 Assessment & Plan (1) COVID-19: -admission elevated D-dimer attributed to COVID-19 infection -admission procalcitonin negative -on airborne and contact isolation precautions as per hospital policies -started remdesivir 20 mg on day 1 of admission on 09/07/2020 and then plans of 100 mg daily times 10 day total course of remdesivir -started Decadron 6 mg every 24 hours on day 1 of admission on 09/07/2020 and plans of up to 10 days -patient received once dose of Lasix on 09/09/2020 but no changes on lung infiltrates or oxygenation -CXR 09/10/2020: Lung volumes are at the lower limits of normal. There is no pneumothorax or pleural effusion. Postoperative findings within the cervical spine as well as the lumbar spine are incidentally noted. Cardiac size is normal. Mediastinal contours are stable. Bibasilar opacities have increased. IMPRESSION: Increase in bibasilar opacities which favor an infectious process. -despite negative procalcitonin levels originally, previous hospitalist Dr. Lindsay started empiric respiratory antibiotics of ceftriaxone daily and Doxycycline BID on 09/10/2020, can continue at this time -prn anti-tussives -supplementary oxygen as needed (2) Chronic obstructive pulmonary disease: -continue Anoro and Montelukast (3) Hypokalemia: -serum potassium 3.1 on 09/11/2020 and serum phosphorous 2.2 on 09/11/2020; supplementary potassium and potassium phosphate ordered (4) Constipation: -on 09/11/2020 patient reports that last bowel movement on Thursday09/07/2020 -senna, colace, miralax ordered -monitor bowel movements (5) Bipolar disorder: -continue lamotrigine, buspar, gabapentin (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 (7) Depression: -continue Buspar per home regimen. (8) DVT prophylaxis: -Lovenox 40mg daily because of elevated D-dimer on admission in context of COVID-19 infection Full Code Admission and Anticipated Discharge Date Admission Date: September 07, 2020 Subjective Patient remains using 2 to 3 liters of nasal cannula oxygen while at rest. Patient denies acute dyspnea. denies chest pain or abdominal pain. Patient denies vomiting. eats the food. reports last bowel movement on Thursday09/07/2020 Review of Systems Review of Systems: All systems reviewed & are unremarkable except as noted in Subjective Physical Exam Constitutional: cooperative and comfortable Eyes: wear glasses ENMT: external ear and nose normal, oropharynx normal Neck: normal visual inspection Respiratory: normal respiratory effort Auscultation: + crackles (mild crackles) no wheezing Cardiovascular: Rate/Rhythm: regular rate and regular rhythm Gastrointestinal (Abdomen): normal bowel sounds, soft, nontender, no hepatosplenomegaly Musculoskeletal: Head/Neck/Chest: normocephalic and head atraumatic Neurologic: awake Psychiatric: A+Ox3, euthymic affect Results & Data Results & Data ([facility]) Vital Signs (Past 12 Hours) Vital Signs Temp Pulse Pulse Resp BP BP Pulse Ox 09/11/20 11:46 36.6 C 72 18 113/74 94 09/11/20 08:55 63 09/11/20 08:04 36.8 C 72 18 159/75 H 96 09/11/20 05:24 36.5 C 68 20 117/77 93 09/11/20 02:35 36.4 C L 55 L 20 122/72 93
[2020-09-11] MEDS ORDERED: ACETAMINOPHEN 325 MG TAB PO PRN (13:55)
[2020-09-11] MEDS ORDERED: POTASSIUM PHOS 3 MMOL/1 ML INFUSION IV STA (14:17)
[2020-09-11] MEDS ORDERED: DOCUSATE SODIUM 100 MG CAP PO ONE (14:18)
[2020-09-11] MEDS ORDERED: SENNA 8.6 MG TAB PO ONE (14:18)
[2020-09-11] MEDS ORDERED: POLYETHYLENE (MIRALAX) 17 GM PACK PO ONE (14:19)
[2020-09-11] MEDS ORDERED: POTASSIUM PHOSPHATE 24 MMOL in SODIUM CHLORIDE 0.9% 500 ML IV ONE (14:30)
[2020-09-11] MEDS: cefTRIAXone SODIUM 1,000 MG in DEXTROSE 5% 50 ML IV SCH (15:37)
[2020-09-11] MEDS: REMDESIVIR 100mg: Days 2-5 IV SCH (18:42)
[2020-09-11] MEDS: NSS 30mL Flush, Days 1-5 IV SCH (20:00)
[2020-09-11] MEDS: ENOXAPARIN INJ 40 MG/0.4 ML SYR SQ SCH (20:03)
[2020-09-11] MEDS: POLYETHYLENE (MIRALAX) 17 GM PACK PO SCH (20:07)
[2020-09-11] MEDS: POT PHOSPHATE MONOBASIC W/ SOD TAB PO SCH (20:07)
[2020-09-11] MEDS: DOCUSATE SODIUM 100 MG CAP PO SCH (20:07)
[2020-09-11] MEDS: MONTELUKAST SODIUM 10 MG TABLET PO SCH (20:10)
[2020-09-12] MEDS: DOXYCYCLINE HYCLATE 100 MG in DEXTROSE 5% 100 ML IV SCH ×2 (04:45→15:49)
[2020-09-12] MEDS: UMECLIDINIUM/VILANTEROL 62.5/25MCG 7 PUFFS/INHALER INH SCH (07:12)
[2020-09-12] MEDS: busPIRone 15 MG TAB PO SCH ×2 (07:12→19:58)
[2020-09-12] MEDS: GABAPENTIN 100 MG CAP PO SCH ×3 (07:13→19:56)
[2020-09-12] MEDS: TOPIRAMATE 50 MG TAB PO SCH ×2 (07:13→19:57)
[2020-09-12] MEDS: lamoTRIgine 100 MG TAB PO SCH ×2 (07:13→19:57)
[2020-09-12] MEDS: DOCUSATE SODIUM 100 MG CAP PO SCH ×2 (07:14→19:58)
[2020-09-12] MEDS: GABAPENTIN 800 MG TAB PO SCH ×3 (07:14→19:55)
[2020-09-12] MEDS: POT PHOSPHATE MONOBASIC W/ SOD TAB PO SCH ×2 (07:15→19:57)
[2020-09-12] MEDS: POLYETHYLENE (MIRALAX) 17 GM PACK PO SCH ×2 (07:15→19:59)
[2020-09-12] MEDS: SENNA 8.6 MG TAB PO SCH (07:16)
[2020-09-12 07:52] LABS: Hematocrit (blood only) 34.7 % (37-47); Hemoglobin 11.7 g/dL (12.0-16.0); Mean Corpuscular Hemoglobin 33.1 pg (25-34); Mean Corpuscular Hgb Conc 33.7 g/dL (32-36); Mean Corpuscular Volume 98.3 fL (80-100); Mean Platelet Volume 8.6 fL (7.4-10.4); Platelet Count 395 K/uL (130-400); RDW Coefficient of Variation 13.2 % (11.5-14.5); RDW Standard Deviation 46.8 fL (36.4-46.3); Red Blood Count 3.53 M/uL (4.2-5.4); White Blood Count 12.06 K/uL (4.8-10.8)
[2020-09-12 08:24] LABS: Basophils # (auto) 0.02 K/uL (0-0.2); Basophils % (auto) 0.2 %; Eosinophils # (auto) 0.05 K/uL (0-0.5); Eosinophils % (auto) 0.4 %; Immature Granulocytes # (auto) 0.63 K/uL (0.00-0.02); Immature Granulocytes % (auto) 5.2 %; Lymphocytes # (auto) 2.03 K/uL (1.2-3.4); Lymphocytes % (auto) 16.8 %; Monocytes # (auto) 1.08 K/uL (0.11-0.59); Neutrophils # (auto) 8.25 K/uL (1.4-6.5); Neutrophils % (auto) 68.4 %
[2020-09-12 08:25] LABS: Albumin Level 2.7 gm/dl (3.4-5.0); BUN Creatinine Ratio 19.5 (10-20); Calcium 8.3 mg/dl (8.5-10.1); Creatinine Clr Calc Pharmacy 93.6 ml/min; Est GFR (African American) 118.2; Est GFR (Non-African American) 101.9; Potassium 3.6 mmol/L (3.5-5.1)
[2020-09-12 08:32] LABS: Albumin Globulin Ratio 0.7 (0.9-2); Bilirubin,Total 0.5 mg/dl (0.2-1); Globulin 4.1 gm/dl (2.5-4.0); Total Protein 6.8 gm/dl (6.4-8.2)
[2020-09-12] MEDS: FERROUS SULFATE 325 MG TAB PO SCH (09:01)
[2020-09-12] MEDS: MULTIVITAMIN TAB PO SCH (09:01)
[2020-09-12] MEDS: CYANOCOBALAMIN (VITAMIN B-12) 2,500 MCG TAB.SUBL SL SCH (09:02)
[2020-09-12] MEDS: PANTOprazole 40 MG TAB PO SCH (09:02)
[2020-09-12] MEDS: METOPROLOL SUCC 25MG EXT REL TAB PO SCH (09:02)
[2020-09-12] MEDS: ZINC SULFATE 220 MG CAPSULE PO SCH (09:03)
[2020-09-12] MEDS: ASCORBIC ACID 500 MG TAB PO SCH (09:03)
[2020-09-12] MEDS: CHOLECALCIFEROL 1,000 UNITS 25 MCG TAB PO SCH (09:03)
[2020-09-12] MEDS: dexAMETHasone 4 MG TAB PO SCH (09:03)
[2020-09-12] MEDS: CETIRIZINE HCL 10 MG TABLET PO SCH (09:04)
[2020-09-12] MEDS: cefTRIAXone SODIUM 1,000 MG in DEXTROSE 5% 50 ML IV SCH (15:49)
--- NOTE | 2020-09-12 16:04 | Hospitalist Progress Note ---
Date of Service September 12, 2020 Assessment & Plan (1) COVID-19: presumed COVID-19 pneumonia acute respiratory failure with hypoxia -This is a patient who on 09/03/2020 had positive COVID-19 test as outpatient. Patient initially presented to emergency room at [facility] on 09/04/2020 for which she was evaluated on discharge. As per the ED note on 09/04/2020 that "Family has COVID-19 as well. The patient had stable vital signs. No hypoxia. Her physical examination did not reveal any significant issues. The patient was treated with oral Zofran and Tylenol. She was feeling better with this. She was hydrated. She underwent a work-up to evaluate for any significant secondary infection. Her chest x-ray did not reveal any suggestion of pneumonia. Mild atelectasis noted. She had an unremarkable CBC and chemistry panel. D-dimer was negative. The patient had an unremarkable troponin. ECG was normal. The patient was observed for several hours in the emergency department during the work-up. She did well and was hemodynamically stable. She never had any hypoxia develop" -Patient returned to the ED on 09/07/2020: " with worsening shortness of breath. The patient states that for the past 2 days she has been more short of breath than usual. When she walks around she gets more short of breath and she feels very unsteady as if she might fall over. She called the [facility] nurse line who checks on her every day and they had her take her pulse ox while she was walking. It did drop down to 86 and she was advised to come to the emergency department. She does state that she has had malaise, headaches, cough and fever up to 102.6. She denies any loss of taste or smell or diarrhea. She did get COVID-19 from her mother who got it from her father. Her mother is currently in the hospital for COVID-19" -Patient was not recorded to have fever on this hospital admission which started on 09/07/2020. The Chest X Ray on 09/07/2020 "Slight progression of the interstitial thickening at the lung bases and hazy densities. This may represent a developing pneumonitis" in comparison to 09/04/2020 Chest X ray -at baseline patient does not use oxygen at home in day time but intermittently uses nocturnal oxygen from history of COPD. admission procalcitonin negative, but with new onset of hypoxia on this 09/07/2020 admission, patient was presumed to have COVID-19 related pneumonia. Admission elevated D-dimer attributed to COVID-19 infection, -has been on airborne and contact isolation precautions as per hospital policies -started Decadron 6 mg oral every 24 hours on day 1 of admission on 09/07/2020 and plans of up to 10 days -started remdesivir 200 mg on day 1 of admission on 09/07/2020 with initial 5 day course completed by 09/12/2020, on 09/12/[address] Ndiaye discussed with pulmonary physician Dr. Du on utility of resuming further number of days of remdesivir but he does not plan on further approval for the medication because of questionable efficacy patient not having acute changes to respiratory status at this time -patient received once dose of Lasix on 09/09/2020 but no changes on lung infiltrates or oxygenation -CXR 09/10/2020: Lung volumes are at the lower limits of normal. There is no p neumothorax or pleural effusion. Postoperative findings within the cervical spine as well as the lumbar spine are incidentally noted. Cardiac size is normal. Mediastinal contours are stable. Bibasilar opacities have increased. IMPRESSION: Increase in bibasilar opacities which favor an infectious process. -despite negative procalcitonin levels originally, previous hospitalist Dr. Lindsay started empiric respiratory antibiotics of ceftriaxone daily and Doxycycline BID on 09/10/2020, continue at this time -prn anti-tussives -supplementary oxygen as needed -Patient had negative COVID-19 testing with an Abbot test (nasal swab) in the AM of 09/12/2020 -Patient to be swabbed for COVID-19 with Cepheid test (nasopharyngeal test) and Biofire PCR in afternoon of 09/12/2020 to rule out false negative from the Abbot -disposition: patient prefers to be discharged to home from this hospital with oxygen as needed. hospitalist Dr. Ndiaye discussed with with pulmonary physician Dr. Du who thinks that patient's hypoxia likely to be persistent for some time given presumed viral insult to the lungs from COVID-19. Fortunately, patient's oxygen requirements when at rest has not extended to be above 3 liters/min Patient feels confident that she can continue to function well at home Patient will need 2 step testing done to assess discharge oxygen requirements Possible discharge on 09/13/2020 when oxygen supplies can be coordinated by window caser (2) Chronic obstructive pulmonary disease: -continue Anoro and Montelukast (3) Hypokalemia: -serum potassium 3.1 on 09/11/2020 and serum phosphorous 2.2 on 09/11/2020; supplementary potassium and potassium phosphate ordered (4) Constipation: -on 09/11/2020 patient reports that last bowel movement on Thursday09/07/2020 -senna, colace, miralax ordered -monitor bowel movements (5) Bipolar disorder: -continue lamotrigine, buspar, gabapentin (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 (7) Depression: -continue Buspar per home regimen. (8) DVT prophylaxis: -Lovenox 40mg daily because of elevated D-dimer on admission in context of COVID-19 infection Full Code Admission and Anticipated Discharge Date Admission Date: September 07, 2020 Subjective -Patient had negative COVID-19 testing with an Abbot test (nasal swab) in the AM of 09/12/2020 -Patient to be swabbed for COVID-19 with Cepheid test (nasopharyngeal test) and Biofire PCR in afternoon of 09/12/2020 to rule out false negative from the Abbot -disposition: patient prefers to be discharged to home from this hospital with oxygen as needed. hospitalist Dr. Ndiaye discussed with with pulmonary physician Dr. Du who thinks that patient's hypoxia likely to be persistent for some time given presumed viral insult to the lungs. Fortunately, patient's oxygen requirements when at rest has not extended to be above 3 liters/min Patient feels confident that she can continue to function well at home Patient will need 2 step testing done to assess discharge oxygen requirements patient denies acute pain. she feels her breathing is subjectively comfortable. no dizziness. no vomiting. able to eat food okay. she denies other symptoms Review of Systems Review of Systems: All systems reviewed & are unremarkable except as noted in Subjective Physical Exam Constitutional: cooperative and comfortable ENMT: external ear and nose normal, oropharynx normal Neck: normal visual inspection Respiratory: normal respiratory effort Cardiovascular: Rate/Rhythm: regular rate and regular rhythm Gastrointestinal (Abdomen): normal bowel sounds, soft, nontender, no hepatosplenomegaly Musculoskeletal: Head/Neck/Chest: normocephalic and head atraumatic Neurologic: awake Psychiatric: A+Ox3, euthymic affect Results & Data Results & Data ([facility]) Vital Signs (Past 12 Hours) Vital Signs Temp Pulse Pulse Resp BP Pulse Ox 09/12/20 15:55 36.7 C 76 18 96/62 L 94 09/12/20 11:00 36.5 C 69 18 96/64 L 95 09/12/20 07:45 36.6 C 77 22 110/71 91 09/12/20 07:03 65 09/12/20 04:46 36.9 C 76 24 136/75 91
[2020-09-12 17:23] LABS: Adenovirus PCR Not Detected (NotDetected); Bordetella parapertussis PCR Not Detected (NotDetected); Bordetella pertussis PCR Not Detected (NotDetected); Chlamydia pneumoniae PCR Not Detected (NotDetected); Coronavirus 229E PCR Not Detected (NotDetected); Coronavirus CoV-2 (COVID19)PCR Not Detected (NotDetected); Coronavirus HKU1 PCR Not Detected (NotDetected); Coronavirus NL63 PCR Not Detected (NotDetected); Coronavirus OC43PCR Not Detected (NotDetected); Human Metapneumovirus PCR Not Detected (NotDetected); Influenza A PCR Not Detected (NotDetected); Influenza B PCR Not Detected (NotDetected); Mycoplasma pneumoniae PCR Not Detected (NotDetected); Parainfluenza Virus 1 PCR Not Detected (NotDetected); Parainfluenza Virus 2 PCR Not Detected (NotDetected); Parainfluenza Virus 3 PCR Not Detected (NotDetected); Parainfluenza Virus 4 PCR Not Detected (NotDetected); Respiratory Syncytial VirusPCR Not Detected (NotDetected); Rhinovirus/Enterovirus PCR Not Detected (NotDetected)
[2020-09-12] MEDS: REMDESIVIR 100mg: Days 2-5 IV SCH (18:08)
[2020-09-12] MEDS: ONDANSETRON INJ 2 MG/ML 2 ML VIAL IV PRN (18:19)
[2020-09-12] MEDS: ENOXAPARIN INJ 40 MG/0.4 ML SYR SQ SCH (19:54)
[2020-09-12] MEDS: NSS 30mL Flush, Days 1-5 IV SCH (19:54)
[2020-09-12] MEDS: MONTELUKAST SODIUM 10 MG TABLET PO SCH (19:58)
[2020-09-13] MEDS ORDERED: bisacodyL 10 MG SUPP PR ONE (04:43)
[2020-09-13 05:51] LABS: Hematocrit (blood only) 35.6 % (37-47); Hemoglobin 11.7 g/dL (12.0-16.0); Mean Corpuscular Hemoglobin 32.5 pg (25-34); Mean Corpuscular Hgb Conc 32.9 g/dL (32-36); Mean Corpuscular Volume 98.9 fL (80-100); Mean Platelet Volume 8.5 fL (7.4-10.4); Platelet Count 414 K/uL (130-400); RDW Coefficient of Variation 13.2 % (11.5-14.5); RDW Standard Deviation 47.4 fL (36.4-46.3); White Blood Count 10.57 K/uL (4.8-10.8)
[2020-09-13 06:13] LABS: Basophils # (auto) 0.02 K/uL (0-0.2); Basophils % (auto) 0.2 %; Eosinophils # (auto) 0.05 K/uL (0-0.5); Eosinophils % (auto) 0.5 %; Immature Granulocytes # (auto) 0.57 K/uL (0.00-0.02); Immature Granulocytes % (auto) 5.4 %; Lymphocytes # (auto) 2.18 K/uL (1.2-3.4); Lymphocytes % (auto) 20.6 %; Monocytes # (auto) 0.91 K/uL (0.11-0.59); Monocytes % (auto) 8.6 %; Neutrophils # (auto) 6.84 K/uL (1.4-6.5); Neutrophils % (auto) 64.7 %
[2020-09-13 06:21] LABS: Albumin Level 2.6 gm/dl (3.4-5.0); BUN Creatinine Ratio 16.1 (10-20); Calcium 8.4 mg/dl (8.5-10.1); Creatinine Clr Calc Pharmacy 88.5 ml/min; Est GFR (African American) 116.1; Est GFR (Non-African American) 100.2; Magnesium 2.2 mg/dl (1.8-2.4); Potassium 3.4 mmol/L (3.5-5.1)
[2020-09-13 06:24] LABS: Albumin Globulin Ratio 0.6 (0.9-2); Bilirubin,Total 0.4 mg/dl (0.2-1); Globulin 4.5 gm/dl (2.5-4.0); Phosphorus 2.4 mg/dl (2.5-4.9); Total Protein 7.1 gm/dl (6.4-8.2)
[2020-09-13] MEDS: DOXYCYCLINE HYCLATE 100 MG in DEXTROSE 5% 100 ML IV SCH (07:09)
[2020-09-13] MEDS: CETIRIZINE HCL 10 MG TABLET PO SCH (08:04)
[2020-09-13] MEDS: ZINC SULFATE 220 MG CAPSULE PO SCH (08:04)
[2020-09-13] MEDS: dexAMETHasone 4 MG TAB PO SCH (08:04)
[2020-09-13] MEDS: ASCORBIC ACID 500 MG TAB PO SCH (08:05)
[2020-09-13] MEDS: FERROUS SULFATE 325 MG TAB PO SCH (08:05)
[2020-09-13] MEDS: CYANOCOBALAMIN (VITAMIN B-12) 2,500 MCG TAB.SUBL SL SCH (08:05)
[2020-09-13] MEDS: CHOLECALCIFEROL 1,000 UNITS 25 MCG TAB PO SCH (08:05)
[2020-09-13] MEDS: UMECLIDINIUM/VILANTEROL 62.5/25MCG 7 PUFFS/INHALER INH SCH (08:05)
[2020-09-13] MEDS: MULTIVITAMIN TAB PO SCH (08:05)
[2020-09-13] MEDS: METOPROLOL SUCC 25MG EXT REL TAB PO SCH (08:05)
[2020-09-13] MEDS: TOPIRAMATE 50 MG TAB PO SCH (08:06)
[2020-09-13] MEDS: lamoTRIgine 100 MG TAB PO SCH (08:06)
[2020-09-13] MEDS: GABAPENTIN 100 MG CAP PO SCH ×2 (08:06→11:48)
[2020-09-13] MEDS: GABAPENTIN 800 MG TAB PO SCH ×2 (08:06→11:48)
[2020-09-13] MEDS: POT PHOSPHATE MONOBASIC W/ SOD TAB PO SCH (08:06)
[2020-09-13] MEDS: SENNA 8.6 MG TAB PO SCH (08:07)
[2020-09-13] MEDS: PANTOprazole 40 MG TAB PO SCH (08:07)
[2020-09-13] MEDS: busPIRone 15 MG TAB PO SCH (08:07)
[2020-09-13] MEDS: POLYETHYLENE (MIRALAX) 17 GM PACK PO SCH (08:07)
[2020-09-13] MEDS: DOCUSATE SODIUM 100 MG CAP PO SCH (08:07)
[2020-09-13] MEDS ORDERED: POTASSIUM CHLORIDE CRTAB 20 MEQ TABCR PO STA (08:40)
[2020-09-13] MEDS ORDERED: DOXYCYCLINE HYCLATE 100 MG CAP PO SCH (09:00)
[2020-09-13] MEDS ORDERED: ONDANSETRON 4 MG OD TAB PO PRN (09:09)
[2020-09-13] MEDS ORDERED: AMOXICILLIN/CLAVULANATE 875 MG TAB PO SCH (10:00)
[2020-09-13] MEDS ORDERED: guaiFENesin SUGAR FREE 100 MG/5 ML UDC PO PRN (11:25)
--- NOTE | 2020-09-13 11:48 | Hospitalist Progress Note ---
Date of Service September 13, 2020 Assessment & Plan (1) COVID-19: presumed COVID-19 pneumonia acute respiratory failure with hypoxia -This is a patient who on 09/03/2020 had positive COVID-19 test as outpatient. Patient initially presented to emergency room at [facility] on 09/04/2020 for which she was evaluated on discharge. As per the ED note on 09/04/2020 that "Family has COVID-19 as well. The patient had stable vital signs. No hypoxia. Her physical examination did not reveal any significant issues. The patient was treated with oral Zofran and Tylenol. She was feeling better with this. She was hydrated. She underwent a work-up to evaluate for any significant secondary infection. Her chest x-ray did not reveal any suggestion of pneumonia. Mild atelectasis noted. She had an unremarkable CBC and chemistry panel. D-dimer was negative. The patient had an unremarkable troponin. ECG was normal. The patient was observed for several hours in the emergency department during the work-up. She did well and was hemodynamically stable. She never had any hypoxia develop" -Patient returned to the ED on 09/07/2020: " with worsening shortness of breath. The patient states that for the past 2 days she has been more short of breath than usual. When she walks around she gets more short of breath and she feels very unsteady as if she might fall over. She called the [facility] nurse line who checks on her every day and they had her take her pulse ox while she was walking. It did drop down to 86 and she was advised to come to the emergency department. She does state that she has had malaise, headaches, cough and fever up to 102.6. She denies any loss of taste or smell or diarrhea. She did get COVID-19 from her mother who got it from her father. Her mother is currently in the hospital for COVID-19" -Patient was not recorded to have fever on this hospital admission which started on 09/07/2020. The Chest X Ray on 09/07/2020 "Slight progression of the interstitial thickening at the lung bases and hazy densities. This may represent a developing pneumonitis" in comparison to 09/04/2020 Chest X ray -at baseline patient does not use oxygen at home in day time but intermittently uses nocturnal oxygen from history of COPD. admission procalcitonin negative, but with new onset of hypoxia on this 09/07/2020 admission, patient was presumed to have COVID-19 related pneumonia. Admission elevated D-dimer attributed to COVID-19 infection -has been on airborne and contact isolation precautions as per hospital policies -started Decadron 6 mg oral every 24 hours on day 1 of admission on 09/07/2020 and plans of up to 10 days -started remdesivir 200 mg on day 1 of admission on 09/07/2020 with initial 5 day course completed by 09/12/2020, on 09/12/[address] Ndiaye discussed with pulmonary physician Dr. Du on utility of resuming further number of days of remdesivir but he does not plan on further approval for the medication because of questionable efficacy patient not having acute changes to respiratory status at this time -patient received once dose of Lasix on 09/09/2020 but no changes on lung infiltrates or oxygenation -CXR 09/10/2020: Lung volumes are at the lower limits of normal. There is no pne umothorax or pleural effusion. Postoperative findings within the cervical spine as well as the lumbar spine are incidentally noted. Cardiac size is normal. Mediastinal contours are stable. Bibasilar opacities have increased. IMPRESSION: Increase in bibasilar opacities which favor an infectious process. -patient received convalescent plasma therapy on 09/10/2020 night time -despite negative procalcitonin levels originally, previous hospitalist Dr. Lindsay started empiric respiratory antibiotics of ceftriaxone IV daily and Doxycycline BID IV on 09/10/2020 which was then transitioned to Augmentin and oral Doxycycline starting on 09/13/2020 - to be completed in 10 days as outpatient -prn anti-tussives -supplementary oxygen given while in hospital -Patient had negative COVID-19 testing with an Abbot test (nasal swab) in the AM of 09/12/2020, Patient to be swabbed for COVID-19 with Cepheid test (nasopharyngeal test) and Biofire PCR in afternoon of 09/12/2020 and these tests also returned as negative -disposition: patient prefers to be discharged to home from this hospital with oxygen as needed. hospitalist Dr. Ndiaye discussed with with pulmonary physician Dr. Du who thinks that patient's hypoxia likely to be persistent for some time given presumed viral insult to the lungs from COVID-19. Fortunately, patient's oxygen requirements when at rest has not extended to be above 3 liters/min during the hospital stay -09/13/2020 discharge to home with home health services 2 step test performed on 09/13/2020 and patient to be discharged with portable oxygen of 2 liters/min with ambulation. Patient did not require oxygen based on oxygen saturation when at rest during the 2 step testing. Patient is advised that if oxygen saturation is less than 88% when at rest, then she may use the oxygen to bring up the levels to 92%. Patient has COPD and in the past used supplementary oxygen at night with sleep when at home - patient may continue this. -[facility] [place] [place] [address] of Dexamethasone 6 mg daily to be completed on September 16, 2020 (Decadron 6 mg oral every 24 hours was started on day 1 of admission on 09/07/2020 for 10 day total course) of Augmentin twice a day and Doxycycline twice a day for 10 more days (respiratory antibiotics of ceftriaxone daily and Doxycycline BID on 09/10/2020) of guaifenesin every 6 hours as needed for cough of senna daily and docusate twice a day to prevent constipation of potassium 10 meq tablet daily x 5 days and phosphorous 1 tablet twice a day for 5 days upcoming in person appointments (Patient should call primary care doctor whether a visit earlier than 10/01/2020 should be telemedicine or not - on 09/03/2020 had positive COVID-19 test as outpatient; negative 09/12/2020 COVID-19 tests by COVID-19 Abbot test, COVID-19 Cepheid test and Biofire PCR tests ) 09/19/2020 11:00 AM [facility] 10:20 AM [facility] (Patient will need follow CBC because Dexamethasone may contribute to increase in WBC and platelets, repeat Chest X Ray, serum potassium and serum phosphorous levels) 10/16/2020 9:30 AM Provider STEPHEN Campbell Department Gastroenterology, [facility] 10/26/2020 9:00 AM Provider Florencio Tejeda MD Department Rheumatology [facility] (2) Chronic obstructive pulmonary disease: -continue Anoro and Montelukast (3) Hypokalemia: -serum potassium 3.1 on 09/11/2020 and serum phosphorous 2.2 on 09/11/2020; supplementary potassium and potassium phosphate given -serum potassium and serum phosphorous has improved and patient discharge with supplements (4) Constipation: -senna, colace, miralax given -discharge on senna, colace (5) Bipolar disorder: -continue lamotrigine, buspar, gabapentin (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 (7) Depression: -continue Buspar per home regimen. (8) DVT prophylaxis: -Lovenox 40mg daily was given when inpatientbecause of elevated D-dimer on admission in context of COVID-19 infection Full Code Admission and Anticipated Discharge Date Admission Date: September 07, 2020 Subjective 2 step test performed on 09/13/2020 and patient to be discharged with portable oxygen of 2 liters/min with ambulation. Patient did not require oxygen based on oxygen saturation when at rest during the 2 step testing. Patient is advised that if oxygen saturation is less than 88% when at rest, then she may use the oxygen to bring up the levels to 92%. Patient has COPD and in the past used supplementary oxygen at night with sleep when at home - patient may continue this. patient is eager for hospital discharge when portable oxygen delivered to the hospital no chest pain, no abdomen pain, no dizziness. no headache. denies other physical complaints or other health concerns Review of Systems Review of Systems: All systems reviewed & are unremarkable except as noted in Subjective Physical Exam Constitutional: cooperative and comfortable ENMT: external ear and nose normal, oropharynx normal Neck: normal visual inspection Respiratory: normal respiratory effort Cardiovascular: Rate/Rhythm: regular rate and regular rhythm Gastrointestinal (Abdomen): normal bowel sounds, soft, nontender, no hepatosplenomegaly Musculoskeletal: Head/Neck/Chest: normocephalic and head atraumatic Neurologic: awake Psychiatric: A+Ox3, euthymic affect Results & Data Results & Data ([facility]) Vital Signs (Past 12 Hours) Vital Signs Temp Pulse Pulse Pulse Pulse Pulse Pulse 09/13/20 10:59 36.7 C 72 74 09/13/20 10:18 73 83 80 72 09/13/20 07:51 36.7 C 72 09/13/20 05:10 36.7 C 62 09/12/20 23:44 36.7 C 61 Resp Resp Resp Resp Resp BP BP 09/13/20 10:59 18 106/65 107/67 09/13/20 10:18 20 20 20 16 09/13/20 07:51 18 107/67 09/13/20 05:10 20 106/65 09/12/20 23:44 20 105/69 Pulse Ox Pulse Ox Pulse Ox Pulse Ox Pulse Ox 09/13/20 10:59 92 09/13/20 10:18 92 85 L 91 93 09/13/20 07:51 92 09/13/20 05:10 95 09/12/20 23:44 95
--- NOTE | 2020-09-13 11:53 | Discharge Summary ---
Date of Service September 13, 2020 Admission HPI Per Admitting Provider "60-year-old female with history of COPD, chronic hypoxemia, history of AV node ablation, depression, presenting with shortness of breath times few days Patient has been diagnosed with COVID-19 infection last September 04 2020. She was discharged from the ER as patient was not hypoxic, and was overall stable. For the past few days, the patient had progressive dyspnea, low-grade fever of 100.1-100.2, arthralgias, poor appetite, diarrhea. Today, patient was checked by [facility] nurse over the phone, and was found to have oxygen saturation of 86% on ambulation. She was then advised to proceed to the ER for evaluation. At the ER, patient was hemodynamically stable but oxygen saturation was found to be 93% on room air. X-ray showing bilateral pneumonitis, bilateral lower lobes. History obtained from patient over the phone in detail and at length. Confirms above signs and symptoms, adding that she has been having productive cough of yellow sputum for the past few days. She has been having shortness of breath with minimal exertion, associated with dizziness/loss of balance. On exam, patient was seen sitting up in bed, appears weak, coughing intermittently, on 3 L of oxygen via nasal cannula, satting 99%. No other symptoms." Principal Diagnosis COVID-19, presumed COVID-19 pneumonia, acute respiratory failure with hypoxia Chronic obstructive pulmonary disease Hypokalemia Constipation Discharge Exam Constitutional cooperative and comfortable ENMT external ear and nose normal, oropharynx normal Neck normal visual inspection Respiratory normal respiratory effort Cardiovascular Rate/Rhythm: regular rate and regular rhythm Gastrointestinal (Abdomen) normal bowel sounds, soft, nontender, no hepatosplenomegaly Musculoskeletal Head/Neck/Chest: normocephalic and head atraumatic Neurologic awake Psychiatric A+Ox3, euthymic affect Discharge Data Allergies Allergy/AdvReac Type Severity Reaction Status Date / Time hydroxyzine Allergy Severe THROAT Verified 09/04/20 17:53 CONSTRICTS/CAN NOT VOID clarithromycin AdvReac Intermediate vomiting Verified 09/04/20 17:53 chlorpromazine AdvReac Mild LIGHTHEADED Verified 09/04/20 17:53 DIZZY lisinopril AdvReac Mild Cough Verified 09/04/20 17:53 baclofen AdvReac DIZZY, Verified 09/04/20 17:53 HAND TREMORS prednisolone AdvReac N/V Verified 09/04/20 17:53 Consultations 09/07/20 15:12 ED Decision to Admit Stat 09/07/20 17:21 Consult Pulmonology Routine Hospital Course (1) COVID-19: presumed COVID-19 pneumonia acute respiratory failure with hypoxia -This is a patient who on 09/03/2020 had positive COVID-19 test as outpatient. Patient initially presented to emergency room at [facility] on 09/04/2020 for which she was evaluated on discharge. As per the ED note on 09/04/2020 that "Family has COVID-19 as well. The patient had stable vital signs. No hypoxia. Her physical examination did not reveal any significant issues. The patient was treated with oral Zofran and Tylenol. She was feeling better with this. She was hydrated. She underwent a work-up to evaluate for any significant secondary infection. Her chest x-ray did not reveal any suggestion of pneumonia. Mild atelectasis noted. She had an unremarkable CBC and chemistry panel. D-dimer was negative. The patient had an unremarkable troponin. ECG was normal. The patient was observed for several hours in the emergency department during the work-up. She did well and was hemodynamically stable. She never had any hypoxia develop" -Patient returned to the ED on 09/07/2020: " with worsening shortness of breath. The patient states that for the past 2 days she has been more short of breath than usual. When she walks around she gets more short of breath and she feels very unsteady as if she might fall over. She called the [facility] nurse line who checks on her every day and they had her take her pulse ox while she was walking. It did drop down to 86 and she was advised to come to the emergency department. She does state that she has had malaise, headaches, cough and fever up to 102.6. She denies any loss of taste or smell or diarrhea. She did get COVID-19 from her mother who got it from her father. Her mother is currently in the hospital for COVID-19" -Patient was not recorded to have fever on this hospital admission which started on 09/07/2020. The Chest X Ray on 09/07/2020 "Slight progression of the inters titial thickening at the lung bases and hazy densities. This may represent a developing pneumonitis" in comparison to 09/04/2020 Chest X ray -at baseline patient does not use oxygen at home in day time but intermittently uses nocturnal oxygen from history of COPD. admission procalcitonin negative, but with new onset of hypoxia on this 09/07/2020 admission, patient was presumed to have COVID-19 related pneumonia. Admission elevated D-dimer attributed to COVID-19 infection -has been on airborne and contact isolation precautions as per hospital policies -started Decadron 6 mg oral every 24 hours on day 1 of admission on 09/07/2020 and plans of up to 10 days -started remdesivir 200 mg on day 1 of admission on 09/07/2020 with initial 5 day course completed by 09/12/2020, on 09/12/[address] Ndiaye discussed with pulmonary physician Dr. Du on utility of resuming further number of days of remdesivir but he does not plan on further approval for the medication because of questionable efficacy patient not having acute changes to respiratory status at this time -patient received once dose of Lasix on 09/09/2020 but no changes on lung infiltrates or oxygenation -CXR 09/10/2020: Lung volumes are at the lower limits of normal. There is no pneumothorax or pleural effusion. Postoperative findings within the cervical spine as well as the lumbar spine are incidentally noted. Cardiac size is normal. Mediastinal contours are stable. Bibasilar opacities have increased. IMPRESSION: Increase in bibasilar opacities which favor an infectious process. -patient received convalescent plasma therapy on 09/10/2020 night time -despite negative procalcitonin levels originally, previous hospitalist Dr. Lindsay started empiric respiratory antibiotics of ceftriaxone IV daily and D oxycycline BID IV on 09/10/2020 which was then transitioned to Augmentin and oral Doxycycline starting on 09/13/2020 - to be completed in 10 days as outpatient -prn anti-tussives -supplementary oxygen given while in hospital -Patient had negative COVID-19 testing with an Abbot test (nasal swab) in the AM of 09/12/2020, Patient to be swabbed for COVID-19 with Cepheid test (nasopharyngeal test) and Biofire PCR in afternoon of 09/12/2020 and these tests also returned as negative -disposition: patient prefers to be discharged to home from this hospital with oxygen as needed. hospitalist Dr. Ndiaye discussed with with pulmonary physician Dr. Du who thinks that patient's hypoxia likely to be persistent for some time given presumed viral insult to the lungs from COVID-19. Fortunately, patient's oxygen requirements when at rest has not extended to be above 3 liters/min during the hospital stay -09/13/2020 discharge to home with home health services 2 step test performed on 09/13/2020 and patient to be discharged with portable oxygen of 2 liters/min with ambulation. Patient did not require oxygen based on oxygen saturation when at rest during the 2 step testing. Patient is advised that if oxygen saturation is less than 88% when at rest, then she may use the oxygen to bring up the levels to 92%. Patient has COPD and in the past used supplementary oxygen at night with sleep when at home - patient may continue this. -discharge pharmacy [facility] in [place], [place]. [facility] [address] [facility] of Dexamethasone 6 mg daily to be completed on September 16, 2020 (Decadron 6 mg oral every 24 hours was started on day 1 of admission on 09/07/2020 for 10 day total course) of Augmentin twice a day and Doxycycline twice a day for 10 more days (respiratory antibiotics of ceftriaxone daily and Doxycycline BID on 09/10/2020) of guaifenesin every 6 hours as needed for cough of senna daily and docusate twice a day to prevent constipation of potassium 10 meq tablet daily x 5 days and phosphorous 1 tablet twice a day for 5 days upcoming in person appointments (Patient should call primary care doctor whether a visit earlier than 10/01/2020 should be telemedicine or not - on 09/03/2020 had positive COVID-19 test as outpatient; negative 09/12/2020 COVID-19 tests by COVID-19 Abbot test, COVID-19 Cepheid test and Biofire PCR tests ) 09/19/2020 11:00 AM Provider Jerome Murillo MD Department [facility] 10/01/2020 10:20 AM Provider Jerome Murillo MD Department [facility] (Patient will need follow CBC because Dexamethasone may contribute to increase in WBC and platelets, repeat Chest X Ray, serum potassium and serum phosphorous levels) 10/16/2020 9:30 AM Provider STEPHEN Campbell Department Gastroenterology, [facility] 10/26/2020 9:00 AM Provider Florencio Tejeda MD Department Rheumatology [facility] (2) Chronic obstructive pulmonary disease: -continue Anoro and Montelukast (3) Hypokalemia: -serum potassium 3.1 on 09/11/2020 and serum phosphorous 2.2 on 09/11/2020; supplementary potassium and potassium phosphate given -serum potassium and serum phosphorous has improved and patient discharge with supplements (4) Constipation: -senna, colace, miralax given -discharge on senna, colace (5) Bipolar disorder: -continue lamotrigine, buspar, gabapentin (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 (7) Depression: -continue Buspar per home regimen. (8) DVT prophylaxis: -Lovenox 40mg daily was given when inpatientbecause of elevated D-dimer on admission in context of COVID-19 infection Full Code Total Time Total Time Spent Total Time Spent (In Minutes): 40 minutes Total Time Includes: Examination of the Patient, Discharge Planning, Medication Reconciliation and Communication With Other Providers Discharge Plan Discharge Items Patient Disposition: Home - Home Health Services Reason For Visit: SHORTNESS OF BREATH, COVID 19 INFECTION Discharge Diagnosis: COVID-19, presumed COVID-19 pneumonia, acute respiratory failure with hypoxia Chronic obstructive pulmonary disease Hypokalemia Constipation Condition on Discharge: Good Activity: Per Instructions section Bathing: No limitations Exercise/Sports: Gradually increase as tolerated Weightbearing: Full weightbearing Non-emergency contact: Primary Care Provider Call non-emergency contact if: you have any medication questions Follow-up/Referrals: Jerome Murillo MD [Primary Care Provider] - (Date & Time 10/01/2020 10:20 AM Provider Jerome Murillo MD Department [facility] ) Diet: Regular Addtl Attending Provider Instructions: discharge to home with home health services Patient's care for COVID-19 included remdesivir , dexamethasone, antibiotics, patient also received convalescent plasma therapy on 09/10/2020 night time 2 step test performed on 09/13/2020 and patient to be discharged with portable oxygen of 2 liters/min with ambulation. Patient did not require oxygen based on oxygen saturation when at rest during the 2 step testing. Patient is advised that if oxygen saturation is less than 88% when at rest, then she may use the oxygen to bring up the levels to 92%. Patient has COPD and in the past used supplementary oxygen at night with sleep when at home - patient may continue this. -discharge pharmacy [facility] in [place]. [facility] [address] [facility] of Dexamethasone 6 mg daily to be completed on September 16, 2020 (Decadron 6 mg oral every 24 hours was started on day 1 of admission on 09/07/2020 for 10 day total course) of Augmentin twice a day and Doxycycline twice a day for 10 more days (respiratory antibiotics of ceftriaxone daily and Doxycycline BID on 09/10/2020) of guaifenesin every 6 hours as needed for cough of senna daily and docusate twice a day to prevent constipation of potassium 10 meq tablet daily x 5 days and phosphorous 1 tablet twice a day for 5 days upcoming in person appointments (Patient should call primary care doctor whether a visit earlier than 10/01/2020 should be telemedicine or not - on 09/03/2020 had positive COVID-19 test as outpatient; negative 09/12/2020 COVID-19 tests by COVID-19 Abbot test, COVID-19 Cepheid test and Biofire PCR tests ) 09/19/2020 11:00 AM Provider Jerome Murillo MD Department [facility] 10/01/2020 10:20 AM Provider Jerome Murillo MD Department [facility] (Patient will need follow CBC because Dexamethasone may contribute to increase in WBC and platelets, repeat Chest X Ray, serum potassium and serum phosphorous levels) 10/16/2020 9:30 AM Provider STEPHEN Campbell Department Gastroenterology, [facility] 10/26/2020 9:00 AM Provider Florencio Tejeda MD Department Rheumatology [facility] Pending Studies at Discharge: No Stand-Alone Forms: Somewhere, Smoking Cessation Medications and DC Order Prescriptions: New dexamethasone 4 mg Tablet 6 mg PO DAILY 3 Days Qty: 5 RF: 0 sennosides [Senokot] 8.6 mg Tablet 8.6 mg PO QAM 30 Days Qty: 30 RF: 0 docusate sodium 100 mg Capsule 100 mg PO BID 30 Days Qty: 60 RF: 0 guaifenesin 100 mg/5 mL Liquid 100 mg PO Q6H PRN (Reason: cough) 10 Days Qty: 500 RF: 0 doxycycline hyclate 100 mg Capsule 100 mg PO BID 10 Days Qty: 20 RF: 0 amoxicillin-pot clavulanate [Augmentin] 875-125 mg Tablet 1 tab PO BIDM 10 Days Qty: 20 RF: 0 Phosphorous 250 mg tablet 1 tab PO BID 5 Days Qty: 10 RF: 0 potassium chloride 10 mEq tablet extended release 10 meq PO DAILY 5 Days Qty: 5 RF: 0 Continued (DME) Oxygen Home Liters Per Minute See Rx Instructions .ROUTE .MEDSUPPLY Qty: 1 RF: 0 Anoro Ellipta 62.5-25 mcg/actuation blister with device 1 puffs INH DAILY Qty: 1 RF: 5 gabapentin 100 mg capsule 100 mg PO TID RF: 0 gabapentin 800 mg Tablet 800 mg PO TID RF: 0 montelukast [Singulair] 10 mg Tablet 10 mg PO QPM RF: 0 cholecalciferol (vitamin D3) [Vitamin D3] 1,000 unit Capsule 1,000 unit PO QAM RF: 0 acetaminophen 650 mg Tablet Extended Release 650 mg PO Q6 PRN (Reason: Pain) RF: 0 ondansetron 8 mg Tablet,Disintegrating 8 mg PO Q8H PRN (Reason: Nausea) RF: 0 buspirone 30 mg Tablet 30 mg PO BID RF: 0 ascorbic acid (vitamin C) [Vitamin C] 500 mg Tablet 500 mg PO QAM RF: 0 ferrous sulfate 325 mg (65 mg iron) Tablet 325 mg PO QAM RF: 0 ergocalciferol (vitamin D2) [Vitamin D2] 1,250 mcg (50,000 unit) Capsule 1,250 mcg PO MONTHLY RF: 0 cyanocobalamin (vitamin B-12) [Vitamin B-12] 5,000 mcg Tablet, Sublingual 5,000 mcg SUBLINGUAL QAM RF: 0 pantoprazole 40 mg Tablet,Delayed Release (Dr/Ec) 40 mg PO DAILY RF: 0 topiramate 50 mg Tablet 50 mg PO BID RF: 0 mupirocin 2 % ointment 1 appln TOP BID PRN (Reason: Skin Irritation) RF: 0 ipratropium bromide 42 mcg (0.06 %) spray,non-aerosol 2 sprays INTNAS TID PRN (Reason: Nasal Congestion) RF: 0 cetirizine [Zyrtec] 10 mg Tablet 10 mg PO QAM RF: 0 meloxicam [Mobic] 15 mg Tablet 15 mg PO QAM PRN (Reason: Pain) RF: 0 metoprolol succinate 25 mg Tablet Extended Release 24 Hr 25 mg PO QAM RF: 0 albuterol sulfate 90 mcg/actuation Hfa Aerosol Inhaler 2 puff INHALATION Q6H RF: 0 lamotrigine 150 mg tablet 150 mg PO BID RF: 0 Abilify Maintena 400 mg suspension,extended rel syring 400 mg IM MONTHLY RF: 0 aripiprazole [Abilify] 15 mg Tablet 15 mg PO PM RF: 0 Adult Multivitamin Gummies 200 mcg Tablet,Chewable 1 tab PO DAILY RF: 0 Discharge Orders: Discharge Order (Routine); Ordered 09/13/20 Ordered By: Michael Delgado/Other Patient Handouts: 2019-nCoV Admission Data Admit Date/Time: 09/07/20 16:03 Attending Provider: Michael Ndiaye Admit Provider: Barber Starks Primary Care Provider: Jerome Murillo Other Providers: Barber Starks ; Abdulkadir Du Other Interventions: Discharge Summary Assessment (RN) Last Done: 09/13/20 10:59
--- NOTE | 2020-10-15 06:20 | Coding Query ---
PRESENT ON ADMISSION QUERY To promote full compliance with coding requirements relating to pateint care, physician participation is requested in all cases of shaker washer uncertainty. Please assist us with the question(s) below: Please place an X within the parenthesis (x). The following diagnosis listed in this patient's medical record requires physician assistance to determine if they were present on admission (POA) or not. Please advise for each diagnosis whether it was present on admission, not present on admission, or if it was clinically undetermined. Thank you for your help! 1. Acute Respiratory Failure with Hypoxia ( ) Present On Admission ( x) Not Present On Admission ( ) Clinically Undetermined Thank you! Dorothy Ko *Definition of the present on admission (POA)-Present on admission is defined as present at the time the order for inpatient admission occurs. Conditions that develop during an outpatient encounter prior to a written order for inpatient admission (including emergency department, observation, or outpatient surgery) are considered present on admission. RENÉD
== END 2020-09-13 15:10 | disposition home health service (06) | DRG 177 ==
LOC: ED 12:19 → 2E 16:03 → SUATTDRO 16:03 → 2E 16:44 → 2S 09-10 14:03

== ENCOUNTER 2022-03-05 19:11 | Inpatient (IN) ==
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
[2022-03-05] MEDS ORDERED: oxyCODONE HCL IR 5 MG TAB (IMMEDIATE RELEASE) PO STA (21:55)
[2022-03-05] MEDS ORDERED: ONDANSETRON INJ 2 MG/ML 2 ML VIAL IV STA (23:58)
[2022-03-05] MEDS ORDERED: MoRPHine SULFATE 2 MG/ML CARP IV STA (23:58)
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
[2022-03-06 00:57] LABS: Basophils # (auto) 0.01 K/uL (0-0.2); Basophils % (auto) 0.1 %; Eosinophils # (auto) 0.13 K/uL (0-0.5); Eosinophils % (auto) 1.9 %; Hematocrit (blood only) 41.1 % (37-47); Hemoglobin 13.7 g/dL (12.0-16.0); Immature Granulocytes # (auto) 0.04 K/uL (0.00-0.02); Immature Granulocytes % (auto) 0.6 %; Lymphocytes # (auto) 2.11 K/uL (1.2-3.4); Lymphocytes % (auto) 30.1 %; Mean Corpuscular Hemoglobin 33.3 pg (25-34); Mean Corpuscular Hgb Conc 33.3 g/dL (32-36); Mean Platelet Volume 9.1 fL (7.4-10.4); Monocytes # (auto) 0.82 K/uL (0.11-0.59); Monocytes % (auto) 11.7 %; Neutrophils # (auto) 3.89 K/uL (1.4-6.5); Neutrophils % (auto) 55.6 %; Platelet Count 255 K/uL (130-400); RDW Coefficient of Variation 12.8 % (11.5-14.5); RDW Standard Deviation 46.5 fL (36.4-46.3); Red Blood Count 4.11 M/uL (4.2-5.4)
[2022-03-06 01:35] LABS: Anion Gap 9 (3-11); BUN Creatinine Ratio 18.1 (10-20); Blood Urea Nitrogen 13 mg/dl (6-23); C Reactive Protein 0.77 mg/dl (0-0.5); Calcium 9.5 mg/dl (8.5-10.1); Carbon Dioxide 25 mmol/L (21-32); Chloride 103 mmol/L (98-107); Est GFR (African American) 104.8 ml/min; Est GFR (Non-African American) 90.4 ml/min; Glucose 89 mg/dl (70-99(Fasting)); Sodium 137 mmol/L (136-145)
[2022-03-06] MEDS ORDERED: diazePAM 2 MG TABLET PO PRN (02:06)
[2022-03-06] MEDS ORDERED: ACETAMINOPHEN 325 MG TAB PO PRN (02:06)
[2022-03-06] MEDS ORDERED: PROMETHAZINE HCL 12.5 MG in SODIUM CHLORIDE 0.9% 50 ML IV PRN (02:06)
[2022-03-06] MEDS ORDERED: POTASSIUM CHLORIDE CRTAB 20 MEQ TABCR PO STA (02:32)
[2022-03-06] MEDS: oxyCODONE HCL IR 5 MG TAB (IMMEDIATE RELEASE) PO PRN ×3 (03:03→16:44)
[2022-03-06] MEDS: busPIRone 15 MG TAB PO SCH ×3 (03:04→20:55)
[2022-03-06] MEDS: lamoTRIgine 100 MG TAB PO SCH ×3 (03:05→20:53)
[2022-03-06] MEDS: lamoTRIgine 25 MG TAB PO SCH ×3 (03:05→20:56)
[2022-03-06] MEDS: GABAPENTIN 100 MG CAP PO SCH ×4 (03:07→20:55)
[2022-03-06 07:45] LABS: Hematocrit (blood only) 40.8 % (37-47); Hemoglobin 13.3 g/dL (12.0-16.0)
--- NOTE | 2022-03-06 08:39 | XRay Report ---
XR hip LT 2V w pelvis CLINICAL HISTORY: Fall. Evaluate for fracture. COMPARISON: Pelvis radiograph June 09, 2019. FINDINGS: Postoperative findings within the thoracolumbar spine including iliac bolts are noted. The right interconnecting gia is fractured. This was present on prior exam. Chronic deformity of the lef t iliac crest. Alignment of the total right hip arthroplasties and pelvis. Old bilateral pubic ring f ractures are noted. No acute fracture within the pelvis or hips is identified. Sclerosis within the g reater trochanter of the right femur is chronic. IMPRESSION: 1. No acute fracture within the pelvis or hips. 2. Status post total right hip arthroplasty. No acute periprosthetic fracture. 3. Old bilateral pubic ring fractures. ACT 112: Negative or not required by law. Electronically signed by: Chuck Buenrostro M.D. 03/06/2022 8:37 AM
--- NOTE | 2022-03-06 09:54 | CT Scan Report ---
CT hip LT wo con, CT pelvis wo con HISTORY: 61 years-old Female fall eval for fx acute pelvis and left hip pain status post fall. COMPARISON: Pelvis and hip radiographs of same day and also 06/09/2019. TECHNIQUE: Multiple axial CT images of the pelvis and left hip were obtained without the use of IV co ntrast. A dose lowering technique was used consistent with the principals of CHRISTOPHER. FINDINGS: PELVIS: Moderate fecal retention. Urinary bladder distention. Noninflamed appendix. No free fluid within the pelvis. Streak artifact from the right hip total joint arthroplasty limits the study. There is a smal l fluid collection lateral to the right greater trochanter measuring up to 1.2 x 1.6 cm on image 461 likely extending for several centimeters in cranial caudal dimension. This is suggestive of a small c hronic seroma. Partially imaged extensive posterior interbody gia and screw fusion of the lumbar spine and sacrum wi th bilateral iliac bolts. Lucency surrounds the screws at L4 and L5 suspicious for loosening. There i s severe disc space narrowing with partial bony fusion at L5-S1. 10 mm anterolisthesis L5 on S1. Frac ture of the right-sided stabilization gia at L5-S1 is noted on image 37 of series 200. Additional fra cture is noted within the stabilization gia on the studio engineer localizer images superior to the L4 pedicle screw. The hardware otherwise appears intact. Healed chronic fracture deformities of the left superio r, bilateral inferior pubic rami and left iliac wing. There is evidence of prior hardware removal inv olving the right iliac wing. No acute fracture identified. LEFT HIP: There is mild osteoarthritis of the left femoral acetabular joint. No acute fracture, dislocation or avascular necrosis. Unremarkable soft tissues. No large joint effusion. IMPRESSION: 1. No acute fracture or dislocation of the pelvis or left hip. 2. Healed chronic fracture deformities of the pelvis. 3. Extensive posterior interbody gia and screw fusion hardware of the lumbosacral spine with iliac elina lts. There are findings suspicious for hardware loosening with two fractures noted within the right-s ided stabilization gia. 4. Right hip total joint arthroplasty without evidence of complication. ACT 112: Negative or not required by law. The above report was generated using voice recognition software. It may contain grammatical, syntax o r spelling errors. Dictated: 03/06/2022 7:39 AM Transcribed: 03/06/2022 8:10 AM Bharti [id number] CAESAR_Miladis Electronically signed by: Regulo Louis M.D. 03/06/2022 9:53 AM
[2022-03-06] MEDS: CETIRIZINE HCL 10 MG TABLET PO SCH (10:04)
[2022-03-06] MEDS: FERROUS SULFATE 325 MG TAB PO SCH (10:05)
[2022-03-06] MEDS: FLUTICASONE PROPIONATE NA SPR 16 GM BTL SCH (10:05)
[2022-03-06] MEDS: FAMOTIDINE 20 MG TAB PO SCH ×2 (10:05→20:55)
[2022-03-06] MEDS: GABAPENTIN 800 MG TAB PO SCH ×3 (10:06→20:54)
[2022-03-06] MEDS: METOPROLOL SUCC 50MG EXT REL TAB PO SCH (10:07)
[2022-03-06] MEDS: PANTOprazole 40 MG TAB PO SCH ×2 (10:08→20:53)
[2022-03-06] MEDS: UMECLIDINIUM/VILANTEROL 62.5/25MCG 7 PUFFS/INHALER INH SCH (10:08)
[2022-03-06] MEDS: CEROVITE ADV FORMULA TAB PO SCH (10:08)
[2022-03-06] MEDS: LIDOCAINE 5% 1 PATCH TD SCH (12:05)
--- NOTE | 2022-03-06 13:57 | Hospitalist Progress Note ---
Date of Service March 06, 2022 Assessment & Plan (1) Acute pain of left hip: Plan: Left hip pain -from fall 2 weeks ago -CT hip/pelvis no fracture but does show back hard koenig failure/loosening -Will ask for ortho evaluation -change acetaminophen to 650mg TID, continue gabapentin, add lidoderm, continue oxycodone PRN PSVT -sp ablation -continue metoprolol COPD -stable currently Former tobacco and alcohol abuse HCV -status post treatment mood disorder - stable Admission and Anticipated Discharge Date Admission Date: March 06, 2022 Subjective Reports ongoing left hip and groin pain Physical Exam Physical Exam: Appears stated age, no acute distress Respiratory: breathing comfortably on room air, no wheezing/rhonchi/rales Cardiovascular: regular rate and rhythm, no murmurs/rubs/galloops Gastrointestinal (Abdomen): soft, non tender, non distended Musculoskeletal: no edema, no thigh swelling or deformity Results & Data Results & Data ([facility]) Vital Signs (Past 12 Hours) Vital Signs Temp Pulse Resp BP BP Pulse Ox 03/06/22 10:02 71 116/75 03/06/22 07:51 36.6 C 70 17 127/78 94 03/06/22 02:10 36.7 C 69 18 112/74 97 03/06/22 02:02 36.6 C 70 16 153/92 H 98 Laboratory Results Short CBC 03/06/22 03/06/22 Range/Units 00:43 07:26 WBC 7.00 (4.8-10.8) K/uL Hgb 13.7 13.3 (12.0-16.0) g/dL Hct 41.1 40.8 (37-47) % Plt Count 255 (130-400) K/uL [facility] 03/06/22 03/06/22 00:43 01:52 Sodium 137 Potassium TNP 3.4 L Chloride 103 Carbon Dioxide 25 BUN 13 Creatinine 0.72 Glucose 89 Calcium 9.5 Medications Administered Current Inpatient Medications Acetaminophen (Acetaminophen 325 Mg Tab) 650 mg PO TID [facility]OGER Stop: 04/05/22 13:59 Buspirone HCl (Buspirone 15 Mg Tab) 30 mg PO BID [facility]ER Stop: 04/05/22 02:05 Last Admin: 03/06/22 10:04 Dose: 30 mg Documented by: Cetirizine HCl (Cetirizine Hcl 10 Mg Tablet) 10 mg PO QAM [facility] Stop: 04/05/22 08:59 Last Admin: 03/06/22 10:04 Dose: 10 mg Documented by: Diazepam (Diazepam 2 Mg Tablet) 2 mg PO Q8H PRN PRN Reason: Anxiety Stop: 04/05/22 02:05 Famotidine (Famotidine 20 Mg Tab) 20 mg PO BID [facility] Stop: 04/05/22 08:59 Last Admin: 03/06/22 10:05 Dose: 20 mg Documented by: Ferrous Sulfate (Ferrous Sulfate 325 Mg Tab) 325 mg PO QAM [facility] Stop: 04/05/22 08:59 Last Admin: 03/06/22 10:05 Dose: 325 mg Documented by: Fluticasone Propionate (Fluticasone Propionate Na Spr 16 Gm Btl) 2 sprays NA DAILY [facility] Stop: 04/05/22 08:59 Last Admin: 03/06/22 10:05 Dose: 2 sprays Documented by: Gabapentin (Gabapentin 100 Mg Cap) 100 mg PO TID [facility] Stop: 04/05/22 00:54 Last Admin: 03/06/22 10:06 Dose: 100 mg Documented by: Gabapentin (Gabapentin 800 Mg Tab) 800 mg PO TID [facility] Stop: 04/05/22 08:59 Last Admin: 03/06/22 10:06 Dose: 800 mg Documented by: Promethazine HCl 12.5 mg/ (Sodium Chloride) 50.5 mls @ 202 mls/hr IV Q6H PRN PRN Reason: Nausea And Vomiting Stop: 04/05/22 02:05 Ketorolac Tromethamine (Ketorolac Tromethamine 15 Mg/Ml Vial) 15 mg IV Q6H PRN PRN Reason: Pain Stop: 03/11/22 03:12 Lamotrigine (Lamotrigine 100 Mg Tab) 100 mg PO BID [facility] Stop: 04/05/22 02:05 Last Admin: 03/06/22 10:06 Dose: 100 mg Documented by: Lamotrigine (Lamotrigine 25 Mg Tab) 50 mg PO BID [facility] Stop: 04/05/22 02:05 Last Admin: 03/06/22 10:07 Dose: 50 mg Documented by: Lidocaine (Lidocaine 5% 1 Patch) 1 patch TD [facility] Stop: 04/05/22 11:29 Last Admin: 03/06/22 12:05 Dose: 1 patch Documented by: Metoprolol Succinate (Metoprolol Succ 50mg Ext Rel Tab) 50 mg PO QAM [facility] Stop: 04/05/22 08:59 Last Admin: 03/06/22 10:07 Dose: 50 mg Documented by: Maria C (Order Awaiting Action: Lifitegrast [Xiidra] 5 % Dropperette) 1 ea N/A QS [facility] Stop: 04/05/22 07:59 Last Admin: 03/06/22 10:04 Dose: Not Given Documented by: Maria C (Remove Lidoderm Patch) 1 ea N/A DAILY@2100 [facility] Stop: 04/05/22 20:59 Montelukast Sodium (Montelukast Sodium 10 Mg Tablet) 10 mg PO QPM [facility] Stop: 04/05/22 20:59 Multivitamins/Minerals (Cerovite Adv Formula Tab) 1 tab PO QAM [facility] Stop: 04/05/22 08:59 Last Admin: 03/06/22 10:08 Dose: 1 tab Documented by: Oxycodone HCl (Oxycodone Hcl Ir 5 Mg Tab (Immediate Release)) 10 mg PO Q6H PRN PRN Reason: Pain Stop: 03/20/22 00:53 Last Admin: 03/06/22 10:02 Dose: 10 mg Documented by: Pantoprazole Sodium (Pantoprazole 40 Mg Tab) 40 mg PO BID [facility] Stop: 04/05/22 08:59 Last Admin: 03/06/22 10:08 Dose: 40 mg Documented by: Umeclidinium/Vilanterol (Umeclidinium/Vilanterol 62.5/25mcg 7 Puffs/Inhaler) 1 puffs INH DAILY [facility] Stop: 04/05/22 08:59 Last Admin: 03/06/22 10:08 Dose: 1 puffs Documented by:
[2022-03-06] MEDS: ACETAMINOPHEN 325 MG TAB PO SCH ×2 (14:19→20:52)
[2022-03-06] MEDS: MONTELUKAST SODIUM 10 MG TABLET PO SCH (20:53)
[2022-03-07] MEDS: oxyCODONE HCL IR 5 MG TAB (IMMEDIATE RELEASE) PO PRN ×4 (00:24→19:36)
[2022-03-07] MEDS: KETOROLAC TROMETHAMINE 15 MG/ML VIAL IV PRN (02:45)
[2022-03-07] MEDS: LIDOCAINE 5% 1 PATCH TD SCH (07:16)
[2022-03-07] MEDS ORDERED: POTASSIUM CHLORIDE CRTAB 20 MEQ TABCR PO STA (08:48)
[2022-03-07] MEDS: lamoTRIgine 25 MG TAB PO SCH ×2 (09:01→21:30)
[2022-03-07] MEDS: FERROUS SULFATE 325 MG TAB PO SCH (09:02)
[2022-03-07] MEDS: CETIRIZINE HCL 10 MG TABLET PO SCH (09:02)
[2022-03-07] MEDS: CEROVITE ADV FORMULA TAB PO SCH (09:02)
[2022-03-07] MEDS: GABAPENTIN 100 MG CAP PO SCH ×3 (09:02→21:30)
[2022-03-07] MEDS: busPIRone 15 MG TAB PO SCH ×2 (09:02→21:30)
[2022-03-07] MEDS: GABAPENTIN 800 MG TAB PO SCH ×3 (09:03→21:30)
[2022-03-07] MEDS: FAMOTIDINE 20 MG TAB PO SCH ×2 (09:03→21:30)
[2022-03-07] MEDS: METOPROLOL SUCC 50MG EXT REL TAB PO SCH (09:03)
[2022-03-07] MEDS: PANTOprazole 40 MG TAB PO SCH ×2 (09:04→21:30)
[2022-03-07] MEDS: FLUTICASONE PROPIONATE NA SPR 16 GM BTL SCH (09:04)
[2022-03-07] MEDS: lamoTRIgine 100 MG TAB PO SCH ×2 (09:04→21:30)
[2022-03-07] MEDS: UMECLIDINIUM/VILANTEROL 62.5/25MCG 7 PUFFS/INHALER INH SCH (09:04)
[2022-03-07] MEDS: ACETAMINOPHEN 325 MG TAB PO SCH ×3 (09:06→21:30)
--- NOTE | 2022-03-07 10:05 | XRay Report ---
XR lumbar spine 2-3V HISTORY: 61 years-old Female back pain chronic low back pain with recent fall COMPARISON: CT left hip and pelvis 03/05/2022, lumbar spine radiographs 01/11/2017, lumbar spine MRI TECHNIQUE: 3 views of the lumbar spine FINDINGS: Chronic L2 compression deformity. Extensive postoperative changes of the lumbar spine with posterior interbody gia and screw fusion extending from L1 through the sacrum with bilateral iliac bolts. L4-L5 discectomy. The L1 pedicle screws are again noted extending into the T12-L1 intervertebral disc spac e. There is lucency surrounding several screws, notably at the L1 level. There are 2 fractures within the right stabilization gia noted superior to the L4 screw and inferior to the L5 screw. Additionall y, there is a questioned fracture involving the left-sided stabilization gia inferior to the L5 screw s seen only on the lateral view. Anterolisthesis L5 on S1 redemonstrated. No acute fracture or sublux ation is identified. Levoscoliosis of the thoracolumbar junction. Extensive fecal retention. Right hi p total joint arthroplasty. Chronic fracture deformities of the pelvis. IMPRESSION: 1. No acute fracture or subluxation of the lumbar spine. 2. Chronic L2 compression and pelvic fracture deformities. 3. Extensive posterior interbody gia and screw fusion redemonstrated with the L1 pedicle screws exten ding into the T12-L1 intervertebral disc space. Lucency surrounding the L1 screws is suggestive of lo osening. 4. Fractures of the right and also possibly the left stabilization rods. ACT 112: Negative or not required by law. The above report was generated using voice recognition software. It may contain grammatical, syntax o r spelling errors. Electronically signed by: Regulo Louis M.D. 03/07/2022 10:03 AM
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
--- NOTE | 2022-03-07 15:29 | Hospitalist Progress Note ---
Date of Service March 07, 2022 Assessment & Plan (1) Acute pain of left hip: Plan: Left hip pain -from fall 2 weeks ago -CT hip/pelvis no fracture but does show back hard koenig failure/loosening -appreciate Ortho input -continue acetaminophen to 650mg TID, continue gabapentin, add lidoderm, continue oxycodone PRN -start prednisone 40mg daily x 3 doses (patient reports allergy to prednisolone but tolerates prednisone, has never tried decadron or medrol) PSVT -sp ablation -continue metoprolol COPD -stable currently Former tobacco and alcohol abuse HCV -status post treatment mood disorder - stable Disposition- evaluated by PT yesterday and acute rehab is recommended which patient is not interested in. She is currently get home PT and wishes to continue this. If pain continues to improve, plan to discharge home tomorrow with Admission and Anticipated Discharge Date Admission Date: March 06, 2022 Subjective Pain feels better today Patient is able to ambulate in her room back/forth to rest room with walker Physical Exam Physical Exam: Appears well, no acute distress, pleasant Respiratory: breathing comfortably on room air, no wheezing/rhonchi/rales Cardiovascular: regular rate and rhythm, no murmurs/rubs/gallops Gastrointestinal (Abdomen): soft, non tender, non distended Musculoskeletal: no edema Neurologic: awake, alert, spontaneously moving extremities Results & Data Results & Data ([facility]) Vital Signs (Past 12 Hours) Vital Signs Temp Pulse Resp BP BP Pulse Ox 03/07/22 15:06 36.7 C 65 17 122/80 94 03/07/22 09:01 80 112/74 03/07/22 07:28 36.7 C 62 16 109/71 95 Medications Administered Current Inpatient Medications Acetaminophen (Acetaminophen 325 Mg Tab) 650 mg PO TID [facility] Stop: 04/05/22 13:59 Last Admin: 03/07/22 14:20 Dose: 650 mg Documented by: Buspirone HCl (Buspirone 15 Mg Tab) 30 mg PO BID [facility] Stop: 04/05/22 02:05 Last Admin: 03/07/22 09:02 Dose: 30 mg Documented by: Cetirizine HCl (Cetirizine Hcl 10 Mg Tablet) 10 mg PO QAM [facility] Stop: 04/05/22 08:59 Last Admin: 03/07/22 09:02 Dose: 10 mg Documented by: Diazepam (Diazepam 2 Mg Tablet) 2 mg PO Q8H PRN PRN Reason: Anxiety Stop: 04/05/22 02:05 Famotidine (Famotidine 20 Mg Tab) 20 mg PO BID [facility] Stop: 04/05/22 08:59 Last Admin: 03/07/22 09:03 Dose: 20 mg Documented by: Ferrous Sulfate (Ferrous Sulfate 325 Mg Tab) 325 mg PO QAM [facility] Stop: 04/05/22 08:59 Last Admin: 03/07/22 09:02 Dose: 325 mg Documented by: Fluticasone Propionate (Fluticasone Propionate Na Spr 16 Gm Btl) 2 sprays NA DAILY [facility] Stop: 04/05/22 08:59 Last Admin: 03/07/22 09:04 Dose: 2 sprays Documented by: Gabapentin (Gabapentin 100 Mg Cap) 100 mg PO TID [facility] Stop: 04/05/22 00:54 Last Admin: 03/07/22 14:19 Dose: 100 mg Documented by: Gabapentin (Gabapentin 800 Mg Tab) 800 mg PO TID [facility] Stop: 04/05/22 08:59 Last Admin: 03/07/22 14:19 Dose: 800 mg Documented by: Promethazine HCl 12.5 mg/ (Sodium Chloride) 50.5 mls @ 202 mls/hr IV Q6H PRN PRN Reason: Nausea And Vomiting Stop: 04/05/22 02:05 Ketorolac Tromethamine (Ketorolac Tromethamine 15 Mg/Ml Vial) 15 mg IV Q6H PRN PRN Reason: Pain Stop: 03/11/22 03:12 Last Admin: 03/07/22 02:45 Dose: 15 mg Documented by: Lamotrigine (Lamotrigine 100 Mg Tab) 100 mg PO BID [facility] Stop: 04/05/22 02:05 Last Admin: 03/07/22 09:04 Dose: 100 mg Documented by: Lamotrigine (Lamotrigine 25 Mg Tab) 50 mg PO BID [facility] Stop: 04/05/22 02:05 Last Admin: 03/07/22 09:01 Dose: 50 mg Documented by: Lidocaine (Lidocaine 5% 1 Patch) 1 patch TD QAM [facility] Stop: 04/05/22 11:29 Last Admin: 03/07/22 07:16 Dose: 1 patch Documented by: Metoprolol Succinate (Metoprolol Succ 50mg Ext Rel Tab) 50 mg PO QAM [facility] Stop: 04/05/22 08:59 Last Admin: 03/07/22 09:03 Dose: 50 mg Documented by: Rebeccacellaneous (Order Awaiting Action: Lifitegrast [Xiidra] 5 % Dropperette) 1 ea N/A QS [facility] Stop: 04/05/22 07:59 Last Admin: 03/07/22 15:13 Dose: Not Given Documented by: Rebeccacellaneous (Remove Lidoderm Patch) 1 ea N/A DAILY@2100 [facility] Stop: 04/05/22 20:59 Last Admin: 03/06/22 20:56 Dose: 1 ea Documented by: Montelukast Sodium (Montelukast Sodium 10 Mg Tablet) 10 mg PO QPM [facility] Stop: 04/05/22 20:59 Last Admin: 03/06/22 20:53 Dose: 10 mg Documented by: Multivitamins/Minerals (Cerovite Adv Formula Tab) [facility] Stop: 04/05/22 08:59 Last Admin: 03/07/22 09:02 Dose: 1 tab Documented by: Oxycodone HCl (Oxycodone Hcl Ir 5 Mg Tab (Immediate Release)) 10 mg PO Q6H PRN PRN Reason: Pain Stop: 03/20/22 00:53 Last Admin: 03/07/22 13:18 Dose: 10 mg Documented by: Pantoprazole Sodium (Pantoprazole 40 Mg Tab) 40 mg PO BID [facility] Stop: 04/05/22 08:59 Last Admin: 03/07/22 09:04 Dose: 40 mg Documented by: Prednisone (Prednisone 20 Mg Tab) 40 mg PO DAILY [facility] Stop: 03/09/22 09:01 Umeclidinium/Vilanterol (Umeclidinium/Vilanterol 62.5/25mcg 7 Puffs/Inhaler) 1 puffs INH DAILY [facility] Stop: 04/05/22 08:59 Last Admin: 03/07/22 09:04 Dose: 1 puffs Documented by:
[2022-03-07] MEDS: predniSONE 20 MG TAB PO SCH (16:45)
[2022-03-07] MEDS ORDERED: ONDANSETRON 4 MG OD TAB PO PRN (17:18)
[2022-03-07] MEDS: MONTELUKAST SODIUM 10 MG TABLET PO SCH (21:30)
[2022-03-08] MEDS: oxyCODONE HCL IR 5 MG TAB (IMMEDIATE RELEASE) PO PRN ×2 (04:56→11:48)
[2022-03-08] MEDS: KETOROLAC TROMETHAMINE 15 MG/ML VIAL IV PRN (05:11)
[2022-03-08] MEDS: ACETAMINOPHEN 325 MG TAB PO SCH (09:08)
[2022-03-08] MEDS: busPIRone 15 MG TAB PO SCH (09:08)
[2022-03-08] MEDS: FAMOTIDINE 20 MG TAB PO SCH (09:09)
[2022-03-08] MEDS: FLUTICASONE PROPIONATE NA SPR 16 GM BTL SCH (09:09)
[2022-03-08] MEDS: FERROUS SULFATE 325 MG TAB PO SCH (09:09)
[2022-03-08] MEDS: CETIRIZINE HCL 10 MG TABLET PO SCH (09:09)
[2022-03-08] MEDS: GABAPENTIN 100 MG CAP PO SCH (09:10)
[2022-03-08] MEDS: lamoTRIgine 25 MG TAB PO SCH (09:10)
[2022-03-08] MEDS: lamoTRIgine 100 MG TAB PO SCH (09:10)
[2022-03-08] MEDS: METOPROLOL SUCC 50MG EXT REL TAB PO SCH (09:10)
[2022-03-08] MEDS: GABAPENTIN 800 MG TAB PO SCH (09:10)
[2022-03-08] MEDS: CEROVITE ADV FORMULA TAB PO SCH (09:10)
[2022-03-08] MEDS: predniSONE 20 MG TAB PO SCH (09:10)
[2022-03-08] MEDS: PANTOprazole 40 MG TAB PO SCH (09:10)
[2022-03-08] MEDS: UMECLIDINIUM/VILANTEROL 62.5/25MCG 7 PUFFS/INHALER INH SCH (09:11)
[2022-03-08] MEDS: LIDOCAINE 5% 1 PATCH TD SCH (09:15)
--- NOTE | 2022-03-08 11:38 | Hospitalist Progress Note ---
Date of Service March 08, 2022 Assessment & Plan Admission and Anticipated Discharge Date Admission Date: March 07, 2022 Subjective By CMS guidelines, a determination that the admission or continued stay is not medically necessary has been made by a member of the UR committee and a physician for this hospital stay, therefore a Code 44 will be completed and the Inpatient admission will be changed to outpatient. Results & Data Results & Data ([facility]) Vital Signs (Past 12 Hours) Vital Signs Temp Pulse Pulse Resp BP BP Pulse Ox 03/08/22 11:27 36.7 C 77 20 145/83 H 98 03/08/22 07:40 36.7 C 77 20 145/83 H 98 03/08/22 02:32 36.5 C 78 16 134/81 94
--- NOTE | 2022-03-08 16:09 | Discharge Summary ---
Date of Service March 08, 2022 Admission HPI Per Admitting Provider History obtained from patient and records. Medical history significant for PSVT sp ablation, COPD, past tobacco and alcohol abuse, gastroparesis per records, HCV status post treatment, mood disorder, GERD status post surgery, chronic back pain, history of drug addiction as per records. Last confinement at [facility] August 2020 for respiratory failure secondary to COVID-19 pneumonia. Patient tripped at home because she was not using her cane about 2 weeks ago landing on her left side. No head trauma, no chest pain, no syncope no SOB. Achy left knee pain which later improved. 4 days ago, patient noted bruising on her left hip associated with pain. Patient consulted ER for worsening discomfort. MEDICAL HISTORY: As above. SURGERIES: She had right trigger finger surgery, hip surgery, tonsillectomy, fundoplasty, cystoscopy, back surgery, sinus surgery, bowel surgery, neck surgery, tubal ligation, FAMILY HISTORY:DM, hypertension, heart disease PERSONAL AND SOCIAL HISTORY: Past tobacco/alcohol abuse, disabled Principal Diagnosis Left hip pain Left hip contusion after a fall Chronic back hardware failure Discharge Exam Appears well. Pleasant and comfortable. Pain is improved. She is ambulating in room with walker. Feels comfortable to return home Discharge Data Allergies Allergy/AdvReac Type Severity Reaction Status Date / Time hydroxyzine Allergy Severe THROAT Verified 03/05/22 21:20 CONSTRICTS/CAN NOT VOID baclofen Allergy Intermediate DIZZY, Verified 03/05/22 21:20 HAND TREMORS chlorpromazine AdvReac Intermediate LIGHTHEADED Verified 03/05/22 21:20 DIZZY clarithromycin AdvReac Intermediate vomiting Verified 03/05/22 21:20 lisinopril AdvReac Intermediate Cough Verified 03/05/22 21:20 prednisolone AdvReac Intermediate N/V Verified 03/05/22 21:20 Consultations 03/05/22 23:58 ED Decision to Admit Stat 03/06/22 11:43 Consult Orthopedic Surgery Routine Ordered Studies 03/05/22 21:55 CT hip LT wo con Urgent CT pelvis wo con Urgent Hospital Course (1) Acute pain of left hip: Ms Jennifer Guerrero is a 61 year old female with chronic pain, history of back surgery with chronic hardware loosening, who lives at home with her father fell about 2 weeks ago and landed on her left hip. Initially, her pain was tolerable but it steadily increased and became unbearable so she presented to ER on 03/06. She had CT Hip and Pelvis which shows hardware loosening in her back but no hip fracture. She was seen by orthopedic surgery and recommended she follow up with her primary orthopedist and felt that her current hip pain was unrelated to her chronic hardware loosening. She was recommended physical therapy, pain control and course of steroids. With pain management (lidocaine, scheduled tylenol) and short course of prednisone (40mg daily x 3 days), her pain improved and at the time of discharge she felt comfortable to return home. While here, PT saw her on day 1 when her pain was uncontrolled and acute rehab was recommended. However, with improved pain control, patient was ambulating much better and declines rehab. Instead, she will return home and continue her home PT. She will follow up with her surgeon and family doctor after discharge. Home Health Attestation I certify that this patient is under my care and that I, or a physicians creative assistant working with me, had a face to-face encounter that meets the home health [id number] encounter requirements with this patient. The encounter with the patient was in whole, or in part, for the following medical condition, which is the primary reason for home health care (list medical condition): I certify that, based on my findings, the following services are medically necessary home health services: My clinical findings support the need for the above services because: Further, I certify that my clinical findings support that this patient is homebound (i.e. absences from home require considerable and taxing effort and are for medical reasons or amish services or infrequently or of short duration when for other reasons) because: Certification for Home Health Services: Based on the above findings, I certify that this patient is confined to the home and needs intermittent group home care, physical therapy and/or speech therapy or continues to need occupational therapy. The patient is under my care, and I have initiated the establishment of the plan of care. This patient will be followed by a physician who will periodically review the plan of care. Total Time Total Time Spent Total Time Spent (In Minutes): 35 Discharge Plan Discharge Items Patient Disposition: Home - Home Health Services Reason For Visit: L LEG PAIN Discharge Diagnosis: Left hip pain Left hip contusion after a fall Chronic back hardware failure Activity: As commented below Lifting: No more than 5 pounds Non-emergency contact: Primary Care Provider and Surgeon Call non-emergency contact if: you have any medication questions and your symptoms worsen Follow-up/Referrals: Jerome Murillo MD [Primary Care Provider] - Diet: Regular Addtl Attending Provider Instructions: Your pain medication regimen: Prednisone 40mg for 1 more day (new) Tylenol 650mg three times a day (new) Lidocaine patch to left hip (new) Continue Oxycodone 10mg every 4 hours as needed for severe pain which you already have a prescription for from your outpatient providers (existing) Continue gabapentin 900mg three times a day as you were taking previously (existing) Please follow up with your family doctor and your back surgeon Pending Studies at Discharge: No Stand-Alone Forms: My [facility] VISUAL [facility]ERT, Smoking Cessation Medications and DC Order Prescriptions: New acetaminophen 325 mg Tablet 650 mg PO TID 5 Days Qty: 30 RF: 0 prednisone 20 mg Tablet 40 mg PO DAILY 1 Days Qty: 2 RF: 0 lidocaine 5 % Adhesive Patch,Medicated 1 patch transdermal QAM 14 Days Qty: 14 RF: 0 Continued (DME) Oxygen Home Liters Per Minute See Rx Instructions .ROUTE .MEDSUPPLY Qty: 1 RF: 0 Anoro Ellipta 62.5-25 mcg/actuation blister with device 1 inh INH DAILY Qty: 1 RF: 5 Xiidra 5 % dropperette 1 drp ophthalmic (eye) BID RF: 0 fluticasone propionate 50 mcg/actuation spray,suspension 2 spray intranasal DAILY RF: 0 gabapentin 100 mg capsule 100 mg PO TID RF: 0 gabapentin 800 mg Tablet 800 mg PO TID RF: 0 montelukast [Singulair] 10 mg Tablet 10 mg PO QPM RF: 0 cholecalciferol (vitamin D3) [Vitamin D3] 1,000 unit Capsule 1,000 unit PO QAM RF: 0 ondansetron 8 mg Tablet,Disintegrating 8 mg PO Q8H PRN (Reason: Nausea) RF: 0 buspirone 30 mg Tablet 30 mg PO BID RF: 0 ascorbic acid (vitamin C) [Vitamin C] 500 mg Tablet 500 mg PO QAM RF: 0 ferrous sulfate 325 mg (65 mg iron) Tablet 325 mg PO QAM RF: 0 ergocalciferol (vitamin D2) [Vitamin D2] 1,250 mcg (50,000 unit) Capsule 1,250 mcg PO MONTHLY RF: 0 cyanocobalamin (vitamin B-12) [Vitamin B-12] 5,000 mcg Tablet, Sublingual 5,000 mcg SUBLINGUAL QAM RF: 0 pantoprazole 40 mg Tablet,Delayed Release (Dr/Ec) 40 mg PO BID RF: 0 mupirocin 2 % ointment 1 appln TOP BID PRN (Reason: Skin Irritation) RF: 0 cetirizine [Zyrtec] 10 mg Tablet 10 mg PO QAM RF: 0 albuterol sulfate 90 mcg/actuation Hfa Aerosol Inhaler 2 puff INHALATION Q6H PRN (Reason: Shortness Of Breath) RF: 0 lamotrigine 150 mg tablet 150 mg PO BID RF: 0 Abilify Maintena 400 mg suspension,extended rel syring 400 mg IM MONTHLY RF: 0 Adult Multivitamin Gummies 200 mcg Tablet,Chewable 1 tab PO QAM RF: 0 metoprolol succinate 50 mg Tablet Extended Release 24 Hr 50 mg PO QAM RF: 0 famotidine 20 mg Tablet 20 mg PO BID RF: 0 nystatin 100,000 unit/mL suspension 5 ml buccal QID PRN (Reason: THRUSH) RF: 0 diazepam 2 mg tablet 2 mg PO Q8H PRN (Reason: Anxiety) RF: 0 Discontinued acetaminophen 650 mg Tablet Extended Release 650 mg PO Q6 PRN (Reason: Pain) RF: 0 meloxicam [Mobic] 15 mg Tablet 15 mg PO QAM PRN (Reason: Pain) RF: 0 oxycodone 10 mg Tablet 10 mg PO Q6H PRN (Reason: Pain) RF: 0 Discharge Orders: Discharge Order (Routine); Ordered 03/08/22 Ordered By: Nina Chun Admission Data Admit Date/Time: 03/07/22 16:47 Attending Provider: Nina Chun Admit Provider: Hebert Hall Primary Care Provider: Jerome Murillo Other Providers: Hebert Hall ; Gil Hensley Other Interventions: Discharge Summary Assessment (RN) Last Done: 03/08/22 11:27
--- NOTE | 2022-03-12 11:06 | Communication Note ---
Date of Service: March 12, 2022 By CMS guidelines, a determination that the admission or continued stay is not medically necessary has been made by a member of the Utilization Review [employer] [facility] and a physician for this hospital stay. Therefore, a Code 44 will be completed and the inpatient admission will be changed to outpatient. Dayana Lindsay DO
== END 2022-03-08 13:39 | disposition home health service (06) | DRG 605 ==
LOC: ED 19:11 → 3W 03-06 00:54 → INTOOBSV 03-06 00:54 → 3W 03-06 02:08

== ENCOUNTER 2022-03-13 17:46 | Inpatient (IN) ==
--- NOTE | 2022-03-13 18:49 | Emergency Department Note ---
ED Visit Note I was consulted by the Advanced Practice Provider. I saw the patient personally and performed a substantive portion of the visit. This includes aspects of the HPI, MDM, diagnostic interpretations, and disposition/plan. .
[2022-03-13] MEDS ORDERED: MoRPHine SULFATE 4 MG/ML 1 ML CARP\\VIAL IV STA (18:52)
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
[2022-03-13] MEDS ORDERED: HYDROmorphone HCL 2 MG TAB PO STA (19:34)
[2022-03-13 19:43] LABS: Hematocrit (blood only) 40.7 % (37-47); Hemoglobin 13.1 g/dL (12.0-16.0); Mean Corpuscular Hemoglobin 32.7 pg (25-34); Mean Corpuscular Hgb Conc 32.2 g/dL (32-36); Mean Corpuscular Volume 101.5 fL (80-100); Mean Platelet Volume 8.7 fL (7.4-10.4); Platelet Count 308 K/uL (130-400); RDW Coefficient of Variation 12.6 % (11.5-14.5); RDW Standard Deviation 47.4 fL (36.4-46.3); Red Blood Count 4.01 M/uL (4.2-5.4)
[2022-03-13 20:02] LABS: Alanine Aminotransferase 14 U/L (7-52); Albumin Globulin Ratio 1.4 (0.9-2); Alkaline Phosphatase 84 U/L (34-104); Anion Gap 7 (3-11); Aspartate Aminotransferase 12 U/L (13-39); BUN Creatinine Ratio 24.7 (10-20); Bilirubin,Total 0.4 mg/dl (0.2-1.0); Blood Urea Nitrogen 18 mg/dl (6-23); Calcium 8.8 mg/dl (8.5-10.1); Carbon Dioxide 25 mmol/L (21-32); Chloride 100 mmol/L (98-107); Est GFR (Non-African American) 88.9 ml/min; Globulin 2.9 gm/dl (2.5-4.0); Glucose 87 mg/dl (70-99(Fasting)); Potassium 4.3 mmol/L (3.5-5.1); Sodium 132 mmol/L (136-145); Total Protein 6.9 gm/dl (6.0-8.3)
[2022-03-13 20:06] LABS: RBC Morphology Unremarkable
[2022-03-13 20:09] LABS: ALC (manual) 2.67 K/uL (1.2-3.4); ANC (manual) 5.74 K/uL (1.4-6.5); Lymphocytes # (manual) 2.67 K/uL (1.2-3.4); Monocytes # (manual) 0.99 K/uL (0.11-0.59); Neutrophils # (manual) 5.74 K/uL (1.4-6.5)
--- NOTE | 2022-03-13 20:28 | CT Scan Report ---
CT hip LT wo con CLINICAL HISTORY: Previous fall with continued hip pain . COMPARISON STUDY: 03/05/2022 CT DOSE: 2131.56 mGy.cm TECHNIQUE: Standard CT of the is performed without IV contrast. Multiplanar reconstruction is perform ed. A dose lowering technique was utilized adhering to the principles of ALARA. FINDINGS: Bones: The bones are osteopenic. There is again no evidence for an acute fracture or dislocation. The re are no lytic or blastic lesions. Joints: The joint spaces are maintained. The bones are in anatomic alignment. Soft tissues: There is no focal soft tissue swelling. There are no focal fluid collections. IMPRESSION: 1. No acute osseous pathology. There is no significant interval change. ACT 112: Negative or not required by law. Electronically signed by: Rolo Pena M.D. 03/13/2022 8:26 PM
--- NOTE | 2022-03-13 20:35 | CT Scan Report ---
CT lumbar spine wo con CLINICAL HISTORY: pain, recent stimulator placed COMPARISON STUDY: No previous studies for comparison. CT DOSE: TECHNIQUE: Standard CT of the Lumbar Spine was performed without IV contrast. A dose lowering techni que was utilized adhering to the principles of ALARA. FINDINGS: Bones: The bones are osteopenic. There is no evidence for an acute fracture or malalignment. The nelly ent is status post interpedicular screw and gia fixation with evidence for an old fracture of the sup erior endplate of L2. The heights of the remaining lumbar vertebral bodies are maintained. The verteb ral bodies are in anatomic alignment. Disc spaces: There is moderate to marked disc space narrowing seen throughout the lumbar spine. Facet joints: Degenerative facet joint disease is also present bilaterally. The sacroiliac joints are intact bilaterally. Soft tissues: There is a catheter present within the soft tissues posteriorly on the right which is s een to the T10 level. It is not within the spinal canal on this study. IMPRESSION: 1. Osteopenia with extensive degenerative changes status post interpedicular screw and gia fixation. 2. Old L2 vertebral body. 3. Catheter is seen in the right paraspinal soft tissues to the uppermost portion of the study at the T10 level. Is not seen within the spinal canal on this study. ACT 112: Negative or not required by law. Electronically signed by: Rolo Pena M.D. 03/13/2022 8:33 PM
--- NOTE | 2022-03-13 20:54 | CT Scan Report ---
CT pelvis wo con CLINICAL HISTORY: Previous fall with continued left hip pain COMPARISON: 03/05/[address] from 06/24/2018 CT DOSE: TECHNIQUE: Standard CT of the Pelvis without intravenous contrast was performed. This CT exam was performed using one or more of the following dose reduction techniques: Automated ex posure control, adjustment of the mA and/or kV according to patient size, or use of iterative reconst ruction technique. CONTRAST: No nonionic intravenous contrast. The patient received oral contrast. FINDINGS: Compared to the previous examination of 8 days ago, no significant interval change is seen. Bones: There is no evidence for an acute fracture or dislocation. Old posttraumatic deformity is seen involving the superior to pubic ramus on the right which was seen on the old CT. There are no lytic or blastic lesions. Joints: The patient is again status post right hip replacement. The left hip is again maintained. The bones are in anatomic alignment. Soft tissues: There is no focal soft tissue swelling. There are no focal fluid collections. There has been placement of an intrathecal pain pump stimulator in the right superior buttocks region. IMPRESSION: 1. No acute osseous pathology. 2. No significant interval change from the previous study of 8 days ago. 3. Placement of an intrathecal pain pump stimulator in the right superior buttocks region. ACT 112: Negative or not required by law. Electronically signed by: Rolo Pena M.D. 03/13/2022 8:51 PM
--- NOTE | 2022-03-13 20:55 | CT Scan Report ---
CT femur LT wo con CLINICAL HISTORY: Previous fall with continued left hip and leg pain COMPARISON STUDY: No previous studies for comparison. CT DOSE: TECHNIQUE: Standard CT of the is performed without IV contrast. Multiplanar reconstruction is perform ed. A dose lowering technique was utilized adhering to the principles of ALARA. FINDINGS: Bones: The bones are osteopenic. There is no evidence for an acute fracture or dislocation. There are no lytic or blastic lesions. Joints: The joint spaces are maintained. The bones are in anatomic alignment. Soft tissues: There is no focal soft tissue swelling. There are no focal fluid collections. IMPRESSION: 1. No acute osseous pathology. ACT 112: Negative or not required by law. Electronically signed by: Rolo Pena M.D. 03/13/2022 8:53 PM
[2022-03-13] MEDS ORDERED: POLYETHYLENE (MIRALAX) 17 GM PACK PO PRN (23:22)
[2022-03-13] MEDS ORDERED: NYSTATIN SUSP 500,000 U/5 ML UDC BUCCAL PRN (23:22)
[2022-03-13] MEDS ORDERED: NON-FORMULARY MEDICATION (Oxygen Home Liters per Minute) SCH (23:22)
[2022-03-13] MEDS ORDERED: ACETAMINOPHEN 325 MG TAB PO PRN (23:22)
[2022-03-13] MEDS ORDERED: ONDANSETRON INJ 2 MG/ML 2 ML VIAL IV PRN (23:22)
[2022-03-13] MEDS ORDERED: ALBUTEROL HFA 8 GM INHALER INH PRN (23:22)
[2022-03-14] MEDS ORDERED: MUPIROCIN 2% OINT 22 GM TUBE TOP PRN (00:26)
[2022-03-14] MEDS: HYDROmorphone INJ 0.5 MG/0.5 ML SYR IV PRN ×5 (00:35→21:11)
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
[2022-03-14] MEDS: diazePAM 2 MG TABLET PO PRN ×2 (01:20→21:14)
[2022-03-14] MEDS: FAMOTIDINE 20 MG TAB PO SCH ×3 (01:21→21:15)
[2022-03-14] MEDS: busPIRone 15 MG TAB PO SCH ×3 (01:21→21:14)
[2022-03-14] MEDS: GABAPENTIN 100 MG CAP PO SCH ×4 (01:22→21:15)
[2022-03-14] MEDS: GABAPENTIN 800 MG TAB PO SCH ×4 (01:22→21:16)
[2022-03-14] MEDS: lamoTRIgine 100 MG TAB PO SCH ×3 (01:22→21:16)
[2022-03-14] MEDS: lamoTRIgine 25 MG TAB PO SCH ×3 (01:23→21:16)
[2022-03-14] MEDS: PANTOprazole 40 MG TAB PO SCH ×3 (01:23→21:17)
[2022-03-14] MEDS: MONTELUKAST SODIUM 10 MG TABLET PO SCH ×2 (01:38→21:17)
[2022-03-14] MEDS: KETOROLAC TROMETHAMINE 15 MG/ML VIAL IV PRN ×3 (04:10→19:39)
[2022-03-14 06:24] LABS: Basophils # (auto) 0.03 K/uL (0-0.2); Basophils % (auto) 0.4 %; Eosinophils # (auto) 0.19 K/uL (0-0.5); Eosinophils % (auto) 2.5 %; Hematocrit (blood only) 37.4 % (37-47); Hemoglobin 11.8 g/dL (12.0-16.0); Immature Granulocytes # (auto) 0.15 K/uL (0.00-0.02); Lymphocytes # (auto) 2.83 K/uL (1.2-3.4); Lymphocytes % (auto) 37.2 %; Mean Corpuscular Hemoglobin 32.4 pg (25-34); Mean Corpuscular Hgb Conc 31.6 g/dL (32-36); Mean Corpuscular Volume 102.7 fL (80-100); Mean Platelet Volume 8.6 fL (7.4-10.4); Monocytes # (auto) 0.96 K/uL (0.11-0.59); Monocytes % (auto) 12.6 %; Neutrophils # (auto) 3.44 K/uL (1.4-6.5); Neutrophils % (auto) 45.3 %; Platelet Count 302 K/uL (130-400); RDW Coefficient of Variation 12.8 % (11.5-14.5); RDW Standard Deviation 48.4 fL (36.4-46.3); Red Blood Count 3.64 M/uL (4.2-5.4)
[2022-03-14 06:55] LABS: BUN Creatinine Ratio 23.1 (10-20); Calcium 8.8 mg/dl (8.5-10.1); Creatinine Clr Calc Pharmacy 65.5 ml/min; Est GFR (African American) 95.1 ml/min; Est GFR (Non-African American) 82.1 ml/min; Magnesium 2.7 mg/dl (1.7-2.4); Potassium 4.4 mmol/L (3.5-5.1)
[2022-03-14] MEDS: ASCORBIC ACID 500 MG TAB PO SCH (08:31)
[2022-03-14] MEDS: UMECLIDINIUM/VILANTEROL 62.5/25MCG 7 PUFFS/INHALER INH SCH (08:32)
[2022-03-14] MEDS: ENOXAPARIN INJ 40 MG/0.4 ML SYR SQ SCH (08:32)
[2022-03-14] MEDS: CHOLECALCIFEROL 1,000 UNITS 25 MCG TAB PO SCH (08:32)
[2022-03-14] MEDS: CYANOCOBALAMIN (B-12) 2,500 MCG TABLET SL SCH ×2 (08:32→08:33)
[2022-03-14] MEDS: FERROUS SULFATE 325 MG TAB PO SCH (08:33)
[2022-03-14] MEDS: FLUTICASONE PROPIONATE NA SPR 16 GM BTL NAE SCH (08:33)
[2022-03-14] MEDS: LIDOCAINE 5% 1 PATCH TD SCH (08:33)
[2022-03-14] MEDS: CETIRIZINE HCL 10 MG TABLET PO SCH (08:33)
[2022-03-14] MEDS: METOPROLOL SUCC 50MG EXT REL TAB PO SCH (08:34)
[2022-03-14] MEDS: MULTIVITAMIN TAB PO SCH (08:34)
[2022-03-14] MEDS ORDERED: MELOXICAM 7.5 MG TAB PO SCH (09:00)
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
[2022-03-14] MEDS ORDERED: MAGNESIUM HYDROXIDE SUSP 30 ML UDC PO ONE (14:30)
[2022-03-14] MEDS: HYDROmorphone HCL 2 MG TAB PO PRN ×2 (16:52→21:14)
--- NOTE | 2022-03-14 17:52 | Hospitalist Progress Note ---
Date of Service March 14, 2022 Assessment & Plan (1) Closed left acetabular fracture: Plan: History of recent fall with history of ambulatory dysfunction and hospitalization. Improved with steroid Has had another fall at home with closed left acetabular fracture Has significant pain in the left hip with any movement Appreciate Ortho input and recommendation for conservative management She has been waiting for placement (2) Acute pain of left hip: Plan: Secondary to fall and left acetabular fracture (3) Chronic back pain: Plan: Chronic back pain remains stable (4) Fall: Plan: History of ambulatory dysfunction (5) COVID-19: Plan: Fully vaccinated with history of COVID in early days Noted to be COVID-19 positive without any symptoms Only symptom she did have is GI upset which is resolved Feels generally weak though (6) History of supraventricular tachycardia: Plan: Rate is stable without any symptoms (7) HCV (hepatitis C virus): Plan: No acute issues at this time (8) Depression: Plan: We will continue current medications DVT prophylaxis Subcu Lovenox Admission and Anticipated Discharge Date Admission Date: March 13, 2022 Subjective 03/14/2022 Patient was seen and examined in medical floor She was admitted with a history of fall at home with left hip pain She was noted to be positive for COVID-19 virus infection Recent mild GI symptoms involving abdominal discomfort with nausea and vomiting which have resolved so far No respiratory symptoms and the patient is fully vaccinated Review of Systems Review of Systems: All systems reviewed and are unremarkable except as noted below Musculoskeletal: Left hip pain with any movement Physical Exam Physical Exam: Lying in bed comfortably Constitutional: well developed, well nourished, + ill appearing and + obese Eyes: PERRL, conjunctivae normal, anicteric sclerae ENMT: external ear and nose normal, oropharynx normal Neck: trachea midline, no thyromegaly Respiratory: no respiratory distress Auscultation: lungs clear to auscultation bilaterally and + diminished lung sounds Cardiovascular: Rate/Rhythm: regular rate and regular rhythm; not tachycardic Heart Sounds: normal S1 and normal S2; no murmur Extremities: + edema (Trace edema bilaterally) Gastrointestinal (Abdomen): Inspection/Auscultation: normal bowel sounds; abdomen not distended Percussion/Palpation: abdomen soft; abdomen nontender Musculoskeletal: With any movement involving the left lower extremity she screams with pain in the left hip Neurologic: Alert awake and oriented x3 Lymphatic: no cervical or axillary lymphadenopathy Results & Data Results & [facility] ([facility]) Vital Signs (Past 12 Hours) Vital Signs Temp Pulse Resp BP Pulse Ox 03/14/22 07:57 36.8 C 75 16 102/68 97 Laboratory Results Short CBC 03/13/22 03/14/22 Range/Units 19:25 05:25 WBC 9.90 7.60 (4.8-10.8) K/uL Hgb 13.1 11.8 L (12.0-16.0) g/dL Hct 40.7 37.4 (37-47) % Plt Count 308 302 (130-400) K/uL BMP 03/13/22 03/14/22 19:25 05:25 Sodium 132 L 135 L Potassium 4.3 4.4 Chloride 100 102 Carbon Dioxide 25 28 BUN 18 18 Creatinine 0.73 0.78 Glucose 87 76 Calcium 8.8 8.8 Liver Function 03/13/22 Range/Units 19:25 Total Bilirubin 0.4 (0.2-1.0) mg/dl AST 12 L (13-39) U/L ALT 14 (7-52) U/L Alkaline Phosphatase 84 (34-104) U/L Albumin 4.0 (3.4-5.0) gm/dl Medications Administered Current Inpatient Medications Acetaminophen (Acetaminophen 325 Mg Tab) 650 mg PO Q4H PRN PRN Reason: pain/fever Stop: 04/12/22 23:21 Albuterol (Albuterol Hfa 8 Gm Inhaler) 2 puffs INH Q6H PRN PRN Reason: Shortness Of Breath Stop: 04/12/22 23:21 Ascorbic Acid (Ascorbic Acid 500 Mg Tab) [facility] [place] Stop: 04/13/22 08:59 Last Admin: 03/14/22 08:31 Dose: 500 mg Documented by: Buspirone HCl (Buspirone 15 Mg Tab) 30 mg PO BID [facility] Stop: 04/13/22 08:59 Last Admin: 03/14/22 08:35 Dose: 30 mg Documented by: Cetirizine HCl (Cetirizine Hcl 10 Mg Tablet) 10 mg PO QAM [facility] Stop: 04/13/22 08:59 Last Admin: 03/14/22 08:33 Dose: 10 mg Documented by: Cyanocobalamin (Cyanocobalamin (B-12) 2,500 Mcg Tablet) 5,000 mcg SL QAM [facility] Stop: 04/13/22 08:59 Last Admin: 03/14/22 08:33 Dose: 5,000 mcg Documented by: Diazepam (Diazepam 2 Mg Tablet) 2 mg PO Q8H PRN PRN Reason: Anxiety Stop: 04/12/22 23:21 Last Admin: 03/14/22 01:20 Dose: 2 mg Documented by: Enoxaparin Sodium (Enoxaparin Inj 40 Mg/0.4 Ml Syr) 40 mg SQ Q24H [facility] Stop: 04/13/22 08:59 Last Admin: 03/14/22 08:32 Dose: 40 mg Documented by: Ergocalciferol (Ergocalciferol 50,000 Units 1250 Mcg Cap) 50,000 units PO Storey@0900 [facility] Stop: 03/16/22 09:01 Famotidine (Famotidine 20 Mg Tab) 20 mg PO BID [facility] Stop: 04/13/22 08:59 Last Admin: 03/14/22 08:36 Dose: 20 mg Documented by: Ferrous Sulfate (Ferrous Sulfate 325 Mg Tab) 325 mg PO QAM [facility] Stop: 04/13/22 08:59 Last Admin: 03/14/22 08:33 Dose: 325 mg Documented by: Fluticasone Propionate (Fluticasone Propionate Na Spr 16 Gm Btl) 2 sprays [place] DAILY [facility] Stop: 04/13/22 08:59 Last Admin: 03/14/22 08:33 Dose: 2 sprays Documented by: Gabapentin (Gabapentin 100 Mg Cap) 100 mg PO TID [facility] Stop: 04/13/22 08:59 Last Admin: 03/14/22 12:36 Dose: 100 mg Documented by: Gabapentin (Gabapentin 800 Mg Tab) 800 mg PO TID [facility] Stop: 04/13/22 08:59 Last Admin: 03/14/22 12:36 Dose: 800 mg Documented by: Hydromorphone HCl (Hydromorphone Inj 0.5 Mg/0.5 Ml Syr) 0.5 mg IV Q4H PRN PRN Reason: Severe Pain Stop: 03/27/22 23:21 Last Admin: 03/14/22 12:36 Dose: 0.5 mg Documented by: Hydromorphone HCl (Hydromorphone Hcl 2 Mg Tab) 4 mg PO Q4 PRN PRN Reason: Pain Stop: 03/27/22 23:21 Last Admin: 03/14/22 16:52 Dose: 4 mg Documented by: Ketorolac Tromethamine (Ketorolac Tromethamine 15 Mg/Ml Vial) 15 mg IV Q6H PRN PRN Reason: Pain Stop: 03/19/22 03:54 Last Admin: 03/14/22 12:36 Dose: 15 mg Documented by: Lamotrigine (Lamotrigine 100 Mg Tab) 100 mg PO BID [facility] Stop: 04/13/22 08:59 Last Admin: 03/14/22 08:35 Dose: 100 mg Documented by: Lamotrigine (Lamotrigine 25 Mg Tab) 50 mg PO BID [facility] Stop: 04/13/22 08:59 Last Admin: 03/14/22 08:36 Dose: 50 mg Documented by: Lidocaine (Lidocaine 5% 1 Patch) 1 patch TD QAM [facility] Stop: 04/13/22 08:59 Last Admin: 03/14/22 08:33 Dose: 1 patch Documented by: Meloxicam (Meloxicam 7.5 Mg Tab) 15 mg PO DAILY [facility] Stop: 04/13/22 08:59 Metoprolol Succinate (Metoprolol Succ 50mg Ext Rel Tab) 50 mg PO QAM [facility] Stop: 04/13/22 08:59 Last Admin: 03/14/22 08:34 Dose: 50 mg Documented by: Miscellaneous (Remove Lidoderm Patch) 1 ea N/A DAILY@2100 [facility] Stop: 04/13/22 00:44 Last Admin: 03/14/22 00:40 Dose: Not Given Documented by: Miscellaneous (Lifitegrast [Xiidra] - Order Awaiting Action) 1 ea N/A QS [facility] Stop: 04/13/22 07:59 Last Admin: 03/14/22 12:38 Dose: Not Given Documented by: Montelukast Sodium (Montelukast Sodium 10 Mg Tablet) 10 mg PO QPM [facility] Stop: 04/13/22 20:59 Last Admin: 03/14/22 01:38 Dose: 10 mg Documented by: Multivitamins (Multivitamin Tab) 1 tab PO QAM [facility] Stop: 04/13/22 08:59 Last Admin: 03/14/22 08:34 Dose: Not Given Documented by: Mupirocin (Mupirocin 2% Oint 22 Gm Tube) 1 appln TOP BID PRN PRN Reason: Skin Irritation Stop: 04/13/22 00:25 Nystatin (Nystatin Susp 500,000 U/5 Ml Udc) 5 ml BUCCAL QID PRN PRN Reason: THRUSH Stop: 03/23/22 23:21 Ondansetron HCl (Ondansetron Inj 2 Mg/Ml 2 Ml Vial) 4 mg IV Q6H PRN PRN Reason: Nausea Stop: 04/12/22 23:21 Pantoprazole Sodium (Pantoprazole 40 Mg Tab) 40 mg PO BID [facility] Stop: 04/13/22 08:59 Last Admin: 03/14/22 08:35 Dose: 40 mg Documented by: Polyethylene Glycol (Polyethylene (Miralax) 17 Gm Pack) 17 gm PO DAILY [facility] Stop: 04/14/22 08:59 Umeclidinium/Vilanterol (Umeclidinium/Vilanterol 62.5/25mcg 7 Puffs/Inhaler) 1 puffs INH DAILY [facility] Stop: 04/13/22 08:59 Last Admin: 03/14/22 08:32 Dose: 1 puffs Documented by: Vitamin D (Cholecalciferol 1,000 Units 25 Mcg Tab) 1,000 units PO QAM [facility] Stop: 04/13/22 08:59 Last Admin: 03/14/22 08:32 Dose: 1,000 units Documented by: (1) Fall Encounter type: initial encounter Qualified Code(s): W19.XXXA - Unspecified fall, initial encounter
[2022-03-15] MEDS: HYDROmorphone HCL 2 MG TAB PO PRN ×3 (01:10→16:18)
[2022-03-15] MEDS: KETOROLAC TROMETHAMINE 15 MG/ML VIAL IV PRN ×4 (01:11→19:42)
[2022-03-15] MEDS: HYDROmorphone INJ 0.5 MG/0.5 ML SYR IV PRN ×3 (05:06→20:00)
[2022-03-15 06:06] LABS: Basophils # (auto) 0.03 K/uL (0-0.2); Basophils % (auto) 0.4 %; Eosinophils # (auto) 0.14 K/uL (0-0.5); Hematocrit (blood only) 38.1 % (37-47); Hemoglobin 12.2 g/dL (12.0-16.0); Immature Granulocytes # (auto) 0.12 K/uL (0.00-0.02); Immature Granulocytes % (auto) 1.7 %; Lymphocytes # (auto) 2.67 K/uL (1.2-3.4); Lymphocytes % (auto) 38.1 %; Mean Corpuscular Hemoglobin 32.2 pg (25-34); Mean Corpuscular Volume 100.5 fL (80-100); Mean Platelet Volume 8.6 fL (7.4-10.4); Monocytes # (auto) 0.83 K/uL (0.11-0.59); Monocytes % (auto) 11.9 %; Neutrophils # (auto) 3.21 K/uL (1.4-6.5); Neutrophils % (auto) 45.9 %; Platelet Count 285 K/uL (130-400); RDW Coefficient of Variation 12.8 % (11.5-14.5); RDW Standard Deviation 46.8 fL (36.4-46.3); Red Blood Count 3.79 M/uL (4.2-5.4)
[2022-03-15 06:28] LABS: BUN Creatinine Ratio 22.4 (10-20); Calcium 8.3 mg/dl (8.5-10.1); Creatinine Clr Calc Pharmacy 67.3 ml/min; Est GFR (African American) 98.1 ml/min; Est GFR (Non-African American) 84.7 ml/min; Potassium 4.7 mmol/L (3.5-5.1)
[2022-03-15] MEDS: diazePAM 2 MG TABLET PO PRN ×2 (07:27→20:58)
[2022-03-15] MEDS: GABAPENTIN 800 MG TAB PO SCH ×3 (08:38→20:59)
[2022-03-15] MEDS: FLUTICASONE PROPIONATE NA SPR 16 GM BTL NAE SCH (08:38)
[2022-03-15] MEDS: UMECLIDINIUM/VILANTEROL 62.5/25MCG 7 PUFFS/INHALER INH SCH (08:38)
[2022-03-15] MEDS: FERROUS SULFATE 325 MG TAB PO SCH (08:39)
[2022-03-15] MEDS: MULTIVITAMIN TAB PO SCH (08:40)
[2022-03-15] MEDS: CHOLECALCIFEROL 1,000 UNITS 25 MCG TAB PO SCH (08:40)
[2022-03-15] MEDS: CETIRIZINE HCL 10 MG TABLET PO SCH (08:40)
[2022-03-15] MEDS: METOPROLOL SUCC 50MG EXT REL TAB PO SCH (08:40)
[2022-03-15] MEDS: CYANOCOBALAMIN (B-12) 2,500 MCG TABLET SL SCH (08:41)
[2022-03-15] MEDS: FAMOTIDINE 20 MG TAB PO SCH ×2 (08:42→20:59)
[2022-03-15] MEDS: ASCORBIC ACID 500 MG TAB PO SCH (08:42)
[2022-03-15] MEDS: GABAPENTIN 100 MG CAP PO SCH ×3 (08:43→20:58)
[2022-03-15] MEDS: ENOXAPARIN INJ 40 MG/0.4 ML SYR SQ SCH (08:43)
[2022-03-15] MEDS: lamoTRIgine 25 MG TAB PO SCH ×2 (08:43→20:59)
[2022-03-15] MEDS: lamoTRIgine 100 MG TAB PO SCH ×2 (08:43→20:59)
[2022-03-15] MEDS: PANTOprazole 40 MG TAB PO SCH ×2 (08:43→20:59)
[2022-03-15] MEDS: busPIRone 15 MG TAB PO SCH ×2 (08:43→20:59)
[2022-03-15] MEDS: POLYETHYLENE (MIRALAX) 17 GM PACK PO SCH (08:44)
[2022-03-15] MEDS: LIDOCAINE 5% 1 PATCH TD SCH (08:44)
[2022-03-15] MEDS ORDERED: bisacodyL 10 MG SUPP PR STA (15:01)
--- NOTE | 2022-03-15 16:38 | Hospitalist Progress Note ---
Date of Service March 15, 2022 Assessment & Plan (1) Closed left acetabular fracture: Plan: History of recent fall with history of ambulatory dysfunction and hospitalization. Improved with steroid Has had another fall at home with closed left acetabular fracture Has significant pain in the left hip with any movement Appreciate Ortho input and recommendation for conservative management She has been waiting for placement (2) Acute pain of left hip: Plan: Secondary to fall and left acetabular fracture Will add oxycodone for pain control (3) Chronic back pain: Plan: Chronic back pain remains stable (4) Fall: Plan: History of ambulatory dysfunction (5) COVID-19: Plan: Fully vaccinated with history of COVID in early days Noted to be COVID-19 positive without any symptoms Only symptom she did have is GI upset which is resolved Feels generally weak though (6) History of supraventricular tachycardia: Plan: Rate is stable without any symptoms (7) HCV (hepatitis C virus): Plan: No acute issues at this time (8) Depression: Plan: We will continue current medications DVT prophylaxis Subcu Lovenox Admission and Anticipated Discharge Date Admission Date: March 13, 2022 Subjective 03/14/2022 Patient was seen and examined in medical floor She was admitted with a history of fall at home with left hip pain She was noted to be positive for COVID-19 virus infection Recent mild GI symptoms involving abdominal discomfort with nausea and vomiting which have resolved so far No respiratory symptoms and the patient is fully vaccinated 03/15/2022 The patient was seen and examined in medical floor She remains stable but continues to have pain in the right hip with movement Denies any cardiac and/or respiratory symptoms Review of Systems Review of Systems: All systems reviewed and are unremarkable except as noted below Musculoskeletal: Left hip pain with any movement Physical Exam Physical Exam: Lying in bed comfortably Constitutional: well developed, well nourished, + ill appearing and + obese Eyes: PERRL, conjunctivae normal, anicteric sclerae ENMT: external ear and nose normal, oropharynx normal Neck: trachea midline, no thyromegaly Respiratory: no respiratory distress Auscultation: lungs clear to auscultation bilaterally and + diminished lung sounds Cardiovascular: Rate/Rhythm: regular rate and regular rhythm; not tachycardic Heart Sounds: normal S1 and normal S2; no murmur Extremities: + edema (Trace edema bilaterally) Gastrointestinal (Abdomen): Inspection/Auscultation: normal bowel sounds; abdomen not distended Percussion/Palpation: abdomen soft; abdomen nontender Musculoskeletal: Right hip is painful with any movement of the right lower extremity Neurologic: + focal motor deficit Lymphatic: no cervical or axillary lymphadenopathy Results & Data Results & Data ([facility]) Vital Signs (Past 12 Hours) Vital Signs Temp Pulse Resp BP Pulse Ox 03/15/22 15:15 36.4 C L 64 17 101/67 97 03/15/22 09:31 36.4 C L 78 16 117/74 98 Laboratory Results Short CBC 03/15/22 Range/Units 05:33 WBC 7.00 (4.8-10.8) K/uL Hgb 12.2 (12.0-16.0) g/dL Hct 38.1 (37-47) % Plt Count 285 (130-400) K/uL BMP 03/15/22 05:33 Sodium 136 Potassium 4.7 Chloride 103 Carbon Dioxide 28 BUN 17 Creatinine 0.76 Glucose 92 Calcium 8.3 L Medications Administered Current Inpatient Medications Acetaminophen (Acetaminophen 325 Mg Tab) 650 mg PO Q4H PRN PRN Reason: pain/fever Stop: 04/12/22 23:21 Albuterol (Albuterol Hfa 8 Gm Inhaler) 2 puffs INH Q6H PRN PRN Reason: Shortness Of Breath Stop: 04/12/22 23:21 Ascorbic Acid (Ascorbic Acid 500 Mg Tab) 500 mg PO QAM [facility] Stop: 04/13/22 08:59 Last Admin: 03/15/22 08:42 Dose: 500 mg Documented by: Buspirone HCl (Buspirone 15 Mg Tab) 30 mg PO BID [facility] Stop: 04/13/22 08:59 Last Admin: 03/15/22 08:43 Dose: 30 mg Documented by: Cetirizine HCl (Cetirizine Hcl 10 Mg Tablet) 10 mg PO QAM [facility] Stop: 04/13/22 08:59 Last Admin: 03/15/22 08:40 Dose: 10 mg Documented by: Cyanocobalamin (Cyanocobalamin (B-12) 2,500 Mcg Tablet) 5,000 mcg SL QAM [facility] Stop: 04/13/22 08:59 Last Admin: 03/15/22 08:41 Dose: 5,000 mcg Documented by: Diazepam (Diazepam 2 Mg Tablet) 2 mg PO Q8H PRN PRN Reason: Anxiety Stop: 04/12/22 23:21 Last Admin: 03/15/22 07:27 Dose: 2 mg Documented by: Enoxaparin Sodium (Enoxaparin Inj 40 Mg/0.4 Ml Syr) 40 mg SQ Q24H [facility] Stop: 04/13/22 08:59 Last Admin: 03/15/22 08:43 Dose: 40 mg Documented by: Ergocalciferol (Ergocalciferol 50,000 Units 1250 Mcg Cap) 50,000 units PO Storey@0900 [facility] Stop: 03/16/22 09:01 Famotidine (Famotidine 20 Mg Tab) 20 mg PO BID [facility] Stop: 04/13/22 08:59 Last Admin: 03/15/22 08:42 Dose: 20 mg Documented by: Ferrous Sulfate (Ferrous Sulfate 325 Mg Tab) 325 mg PO QAM [facility] Stop: 04/13/22 08:59 Last Admin: 03/15/22 08:39 Dose: 325 mg Documented by: Fluticasone Propionate (Fluticasone Propionate Na Spr 16 Gm Btl) 2 sprays [place] DAILY [facility] Stop: 04/13/22 08:59 Last Admin: 03/15/22 08:38 Dose: 2 sprays Documented by: Gabapentin (Gabapentin 100 Mg Cap) 100 mg PO TID [facility] Stop: 04/13/22 08:59 Last Admin: 03/15/22 12:46 Dose: 100 mg Documented by: Gabapentin (Gabapentin 800 Mg Tab) 800 mg PO TID [facility] Stop: 04/13/22 08:59 Last Admin: 03/15/22 12:46 Dose: 800 mg Documented by: Hydromorphone HCl (Hydromorphone Inj 0.5 Mg/0.5 Ml Syr) 0.5 mg IV Q4H PRN PRN Reason: Severe Pain Stop: 03/27/22 23:21 Last Admin: 03/15/22 12:46 Dose: 0.5 mg Documented by: Hydromorphone HCl (Hydromorphone Hcl 2 Mg Tab) 4 mg PO Q4 PRN PRN Reason: Pain Stop: 03/27/22 23:21 Last Admin: 03/15/22 16:18 Dose: 4 mg Documented by: Ketorolac Tromethamine (Ketorolac Tromethamine 15 Mg/Ml Vial) 15 mg IV Q6H PRN PRN Reason: Pain Stop: 03/19/22 03:54 Last Admin: 03/15/22 12:46 Dose: 15 mg Documented by: Lamotrigine (Lamotrigine 100 Mg Tab) 100 mg PO BID [facility] Stop: 04/13/22 08:59 Last Admin: 03/15/22 08:43 Dose: 100 mg Documented by: Lamotrigine (Lamotrigine 25 Mg Tab) 50 mg PO BID [facility] Stop: 04/13/22 08:59 Last Admin: 03/15/22 08:43 Dose: 50 mg Documented by: Lidocaine (Lidocaine 5% 1 Patch) [facility] [place] Stop: 04/13/22 08:59 Last Admin: 03/15/22 08:44 Dose: 1 patch Documented by: Meloxicam (Meloxicam 7.5 Mg Tab) 15 mg PO DAILY [facility] Stop: 04/13/22 08:59 Metoprolol Succinate (Metoprolol Succ 50mg Ext Rel Tab) 50 mg [facility] [place] Stop: 04/13/22 08:59 Last Admin: 03/15/22 08:40 Dose: 50 mg Documented by: Miscellaneous (Remove Lidoderm Patch) 1 ea N/A DAILY@2100 [facility] Stop: 04/13/22 00:44 Last Admin: 03/14/22 21:18 Dose: 1 ea Documented by: Miscellaneous (Lifitegrast [Xiidra] - Order Awaiting Action) 1 ea N/A QS [facility] Stop: 04/13/22 07:59 Last Admin: 03/15/22 12:08 Dose: Not Given Documented by: Montelukast Sodium (Montelukast Sodium 10 Mg Tablet) 10 mg PO QPM [facility] Stop: 04/13/22 20:59 Last Admin: 03/14/22 21:17 Dose: 10 mg Documented by: Multivitamins (Multivitamin Tab) 1 tab PO QAM [facility] Stop: 04/13/22 08:59 Last Admin: 03/15/22 08:40 Dose: 1 tab Documented by: Mupirocin (Mupirocin 2% Oint 22 Gm Tube) 1 appln TOP BID PRN PRN Reason: Skin Irritation Stop: 04/13/22 00:25 Nystatin (Nystatin Susp 500,000 U/5 Ml Udc) 5 ml BUCCAL QID PRN PRN Reason: THRUSH Stop: 03/23/22 23:21 Ondansetron HCl (Ondansetron Inj 2 Mg/Ml 2 Ml Vial) 4 mg IV Q6H PRN PRN Reason: Nausea Stop: 04/12/22 23:21 Pantoprazole Sodium (Pantoprazole 40 Mg Tab) 40 mg PO BID [facility] Stop: 04/13/22 08:59 Last Admin: 03/15/22 08:43 Dose: 40 mg Documented by: Polyethylene Glycol (Polyethylene (Miralax) 17 Gm Pack) 17 gm PO DAILY [facility] Stop: 04/14/22 08:59 Last Admin: 03/15/22 08:44 Dose: 17 gm Documented by: Umeclidinium/Vilanterol (Umeclidinium/Vilanterol 62.5/25mcg 7 Puffs/Inhaler) 1 puffs INH DAILY [facility] Stop: 04/13/22 08:59 Last Admin: 03/15/22 08:38 Dose: 1 puffs Documented by: Vitamin D (Cholecalciferol 1,000 Units 25 Mcg Tab) 1,000 units PO QAM [facility] Stop: 04/13/22 08:59 Last Admin: 03/15/22 08:40 Dose: 1,000 units Documented by: (1) Fall Encounter type: initial encounter Qualified Code(s): W19.XXXA - Unspecified fall, initial encounter
[2022-03-15] MEDS: MONTELUKAST SODIUM 10 MG TABLET PO SCH (20:59)
[2022-03-15] MEDS: oxyCODONE HCL IR 5 MG TAB (IMMEDIATE RELEASE) PO PRN (22:12)
[2022-03-16] MEDS: HYDROmorphone HCL 2 MG TAB PO PRN ×4 (00:07→20:16)
[2022-03-16] MEDS: KETOROLAC TROMETHAMINE 15 MG/ML VIAL IV PRN ×4 (02:29→22:03)
[2022-03-16] MEDS: oxyCODONE HCL IR 5 MG TAB (IMMEDIATE RELEASE) PO PRN ×3 (06:02→22:03)
[2022-03-16] MEDS: FLUTICASONE PROPIONATE NA SPR 16 GM BTL NAE SCH (08:46)
[2022-03-16] MEDS: UMECLIDINIUM/VILANTEROL 62.5/25MCG 7 PUFFS/INHALER INH SCH (08:46)
[2022-03-16] MEDS: HYDROmorphone INJ 0.5 MG/0.5 ML SYR IV PRN ×2 (08:47→15:51)
[2022-03-16] MEDS: FAMOTIDINE 20 MG TAB PO SCH ×2 (08:47→20:17)
[2022-03-16] MEDS: GABAPENTIN 100 MG CAP PO SCH ×3 (08:47→20:18)
[2022-03-16] MEDS: lamoTRIgine 25 MG TAB PO SCH ×2 (08:47→20:18)
[2022-03-16] MEDS: GABAPENTIN 800 MG TAB PO SCH ×3 (08:47→20:18)
[2022-03-16] MEDS: METOPROLOL SUCC 50MG EXT REL TAB PO SCH (08:48)
[2022-03-16] MEDS: busPIRone 15 MG TAB PO SCH ×2 (08:48→20:16)
[2022-03-16] MEDS: ASCORBIC ACID 500 MG TAB PO SCH (08:48)
[2022-03-16] MEDS: lamoTRIgine 100 MG TAB PO SCH ×2 (08:48→20:19)
[2022-03-16] MEDS: PANTOprazole 40 MG TAB PO SCH ×2 (08:48→20:19)
[2022-03-16] MEDS: CYANOCOBALAMIN (B-12) 2,500 MCG TABLET SL SCH (08:48)
[2022-03-16] MEDS: CETIRIZINE HCL 10 MG TABLET PO SCH (08:48)
[2022-03-16] MEDS: LIDOCAINE 5% 1 PATCH TD SCH (08:48)
[2022-03-16] MEDS: POLYETHYLENE (MIRALAX) 17 GM PACK PO SCH (08:49)
[2022-03-16] MEDS: CHOLECALCIFEROL 1,000 UNITS 25 MCG TAB PO SCH (08:49)
[2022-03-16] MEDS: FERROUS SULFATE 325 MG TAB PO SCH (08:49)
[2022-03-16] MEDS: MULTIVITAMIN TAB PO SCH (08:49)
[2022-03-16] MEDS: ENOXAPARIN INJ 40 MG/0.4 ML SYR SQ SCH (08:50)
[2022-03-16] MEDS ORDERED: ERGOCALCIFEROL 50,000 UNITS 1250 MCG CAP PO SCH (09:00)
--- NOTE | 2022-03-16 14:54 | Hospitalist Progress Note ---
Date of Service March 16, 2022 Assessment & Plan (1) Closed left acetabular fracture: Plan: History of recent fall with history of ambulatory dysfunction and hospitalization. Improved with steroid Has had another fall at home with closed left acetabular fracture Has significant pain in the left hip with any movement Appreciate Ortho input and recommendation for conservative management She has been waiting for placement Continue physical therapy (2) Acute pain of left hip: Plan: Secondary to fall and left acetabular fracture Will add oxycodone for pain control Additional pain medications have been prescribed (3) Chronic back pain: Plan: Chronic back pain remains stable (4) Fall: Plan: History of ambulatory dysfunction (5) COVID-19: Plan: Fully vaccinated with history of COVID in early days Noted to be COVID-19 positive without any symptoms Only symptom she did have is GI upset which is resolved Feels generally weak though Will get repeat COVID test today (6) History of supraventricular tachycardia: Plan: Rate is stable without any symptoms (7) HCV (hepatitis C virus): Plan: No acute issues at this time (8) Depression: Plan: We will continue current medications DVT prophylaxis Subcu Lovenox Admission and Anticipated Discharge Date Admission Date: March 13, 2022 Subjective 03/14/2022 Patient was seen and examined in medical floor She was admitted with a history of fall at home with left hip pain She was noted to be positive for COVID-19 virus infection Recent mild GI symptoms involving abdominal discomfort with nausea and vomiting which have resolved so far No respiratory symptoms and the patient is fully vaccinated 03/15/2022 The patient was seen and examined in medical floor She remains stable but continues to have pain in the right hip with movement Denies any cardiac and/or respiratory symptoms 03/16/2022 Patient was seen and examined in medical floor Still has pain involving the left hip with ambulation Denies any respiratory symptoms Review of Systems Review of Systems: All systems reviewed and are unremarkable except as noted below Musculoskeletal: Left hip pain with any movement Physical Exam Physical Exam: Lying in bed comfortably Constitutional: well developed, well nourished, + ill appearing and + obese Eyes: PERRL, conjunctivae normal, anicteric sclerae ENMT: external ear and nose normal, oropharynx normal Neck: trachea midline, no thyromegaly Respiratory: no respiratory distress Auscultation: lungs clear to auscultation bilaterally and + diminished lung sounds Cardiovascular: Rate/Rhythm: regular rate and regular rhythm; not tachycardic Heart Sounds: normal S1 and normal S2; no murmur Extremities: + edema (Trace edema bilaterally) Gastrointestinal (Abdomen): Inspection/Auscultation: normal bowel sounds; abdomen not distended Percussion/Palpation: abdomen soft; abdomen nontender Musculoskeletal: Pain in the left hip with movement of the left lower extremity Neurologic: + focal motor deficit Lymphatic: no cervical or axillary lymphadenopathy Results & Data Results & Data ([facility]) Vital Signs (Past 12 Hours) Vital Signs Temp Pulse Resp BP Pulse Ox 03/16/22 14:04 36.9 C 73 20 98/65 L 96 03/16/22 06:05 36.6 C 69 18 122/80 97 Medications Administered Current Inpatient Medications Acetaminophen (Acetaminophen 325 Mg Tab) 650 mg PO Q4H PRN PRN Reason: pain/fever Stop: 04/12/22 23:21 Albuterol (Albuterol Hfa 8 Gm Inhaler) 2 puffs INH Q6H PRN PRN Reason: Shortness Of Breath Stop: 04/12/22 23:21 Ascorbic Acid (Ascorbic Acid 500 Mg Tab) [facility] [place] Stop: 04/13/22 08:59 Last Admin: 03/16/22 08:48 Dose: 500 mg Documented by: Buspirone HCl (Buspirone 15 Mg Tab) 30 mg PO BID [facility] Stop: 04/13/22 08:59 Last Admin: 03/16/22 08:48 Dose: 30 mg Documented by: Cetirizine HCl (Cetirizine Hcl 10 Mg Tablet) [facility] [place] Stop: 04/13/22 08:59 Last Admin: 03/16/22 08:48 Dose: 10 mg Documented by: Cyanocobalamin (Cyanocobalamin (B-12) 2,500 Mcg Tablet) 5,000 mcg SL [facility] Stop: 04/13/22 08:59 Last Admin: 03/16/22 08:48 Dose: 5,000 mcg Documented by: Diazepam (Diazepam 2 Mg Tablet) 2 mg PO Q8H PRN PRN Reason: Anxiety Stop: 04/12/22 23:21 Last Admin: 03/15/22 20:58 Dose: 2 mg Documented by: Enoxaparin Sodium (Enoxaparin Inj 40 Mg/0.4 Ml Syr) 40 mg SQ Q24H [facility] Stop: 04/13/22 08:59 Last Admin: 03/16/22 08:50 Dose: 40 mg Documented by: Famotidine (Famotidine 20 Mg Tab) 20 mg PO BID [facility] Stop: 04/13/22 08:59 Last Admin: 03/16/22 08:47 Dose: 20 mg Documented by: Ferrous Sulfate (Ferrous Sulfate 325 Mg Tab) 325 mg PO QAM [facility] Stop: 04/13/22 08:59 Last Admin: 03/16/22 08:49 Dose: 325 mg Documented by: Fluticasone Propionate (Fluticasone Propionate Na Spr 16 Gm Btl) 2 sprays [place] DAILY [facility] Stop: 04/13/22 08:59 Last Admin: 03/16/22 08:46 Dose: 2 sprays Documented by: Gabapentin (Gabapentin 100 Mg Cap) 100 mg PO TID [facility] Stop: 04/13/22 08:59 Last Admin: 03/16/22 12:47 Dose: 100 mg Documented by: Gabapentin (Gabapentin 800 Mg Tab) 800 mg PO TID [facility] Stop: 04/13/22 08:59 Last Admin: 03/16/22 12:47 Dose: 800 mg Documented by: Hydromorphone HCl (Hydromorphone Inj 0.5 Mg/0.5 Ml Syr) 0.5 mg IV Q4H PRN PRN Reason: Severe Pain Stop: 03/27/22 23:21 Last Admin: 03/16/22 08:47 Dose: 0.5 mg Documented by: Hydromorphone HCl (Hydromorphone Hcl 2 Mg Tab) 4 mg PO Q4 PRN PRN Reason: Pain Stop: 03/27/22 23:21 Last Admin: 03/16/22 12:47 Dose: 4 mg Documented by: Ketorolac Tromethamine (Ketorolac Tromethamine 15 Mg/Ml Vial) 15 mg IV Q6H PRN PRN Reason: Pain Stop: 03/19/22 03:54 Last Admin: 03/16/22 08:46 Dose: 15 mg Documented by: Lamotrigine (Lamotrigine 100 Mg Tab) 100 mg PO BID [facility] Stop: 04/13/22 08:59 Last Admin: 03/16/22 08:48 Dose: 100 mg Documented by: Lamotrigine (Lamotrigine 25 Mg Tab) 50 mg PO BID [facility] Stop: 04/13/22 08:59 Last Admin: 03/16/22 08:47 Dose: 50 mg Documented by: Lidocaine (Lidocaine 5% 1 Patch) 1 patch [facility] [place] Stop: 04/13/22 08:59 Last Admin: 03/16/22 08:48 Dose: 1 patch Documented by: Meloxicam (Meloxicam 7.5 Mg Tab) 15 mg PO DAILY [facility] Stop: 04/13/22 08:59 Metoprolol Succinate (Metoprolol Succ 50mg Ext Rel Tab) [facility] [place] Stop: 04/13/22 08:59 Last Admin: 03/16/22 08:48 Dose: 50 mg Documented by: Miscellaneous (Remove Lidoderm Patch) 1 ea N/A DAILY@2100 [facility] Stop: 04/13/22 00:44 Last Admin: 03/15/22 20:59 Dose: 1 ea Documented by: Miscellaneous (Lifitegrast [Xiidra] - Order Awaiting Action) 1 ea N/A QS [facility] Stop: 04/13/22 07:59 Last Admin: 03/16/22 11:50 Dose: Not Given Documented by: Montelukast Sodium (Montelukast Sodium 10 Mg Tablet) 10 mg PO QPM [facility] Stop: 04/13/22 20:59 Last Admin: 03/15/22 20:59 Dose: 10 mg Documented by: Multivitamins (Multivitamin Tab) 1 tab PO [facility] Stop: 04/13/22 08:59 Last Admin: 03/16/22 08:49 Dose: 1 tab Documented by: Mupirocin (Mupirocin 2% Oint 22 Gm Tube) 1 appln TOP BID PRN PRN Reason: Skin Irritation Stop: 04/13/22 00:25 Nystatin (Nystatin Susp 500,000 U/5 Ml Udc) 5 ml BUCCAL QID PRN PRN Reason: THRUSH Stop: 03/23/22 23:21 Ondansetron HCl (Ondansetron Inj 2 Mg/Ml 2 Ml Vial) 4 mg IV Q6H PRN PRN Reason: Nausea Stop: 04/12/22 23:21 Oxycodone HCl (Oxycodone Hcl Ir 5 Mg Tab (Immediate Release)) 5 mg PO Q6H PRN PRN Reason: Pain Stop: 03/29/22 16:37 Last Admin: 03/16/22 14:02 Dose: 5 mg Documented by: Pantoprazole Sodium (Pantoprazole 40 Mg Tab) 40 mg PO BID [facility] Stop: 04/13/22 08:59 Last Admin: 03/16/22 08:48 Dose: 40 mg Documented by: Polyethylene Glycol (Polyethylene (Miralax) 17 Gm Pack) 17 gm PO DAILY [facility] Stop: 04/14/22 08:59 Last Admin: 03/16/22 08:49 Dose: 17 gm Documented by: Umeclidinium/Vilanterol (Umeclidinium/Vilanterol 62.5/25mcg 7 Puffs/Inhaler) 1 puffs INH DAILY [facility] Stop: 04/13/22 08:59 Last Admin: 03/16/22 08:46 Dose: 1 puffs Documented by: Vitamin D (Cholecalciferol 1,000 Units 25 Mcg Tab) 1,000 units PO QAM [facility] Stop: 04/13/22 08:59 Last Admin: 03/16/22 08:49 Dose: 1,000 units Documented by: (1) Fall Encounter type: initial encounter Qualified Code(s): W19.XXXA - Unspecified fall, initial encounter
[2022-03-16] MEDS: diazePAM 2 MG TABLET PO PRN (20:16)
[2022-03-16] MEDS: MONTELUKAST SODIUM 10 MG TABLET PO SCH (20:18)
[2022-03-17] MEDS: HYDROmorphone INJ 0.5 MG/0.5 ML SYR IV PRN (00:02)
[2022-03-17] MEDS: HYDROmorphone HCL 2 MG TAB PO PRN ×4 (03:58→23:05)
[2022-03-17] MEDS: oxyCODONE HCL IR 5 MG TAB (IMMEDIATE RELEASE) PO PRN ×3 (05:12→21:30)
[2022-03-17] MEDS: KETOROLAC TROMETHAMINE 15 MG/ML VIAL IV PRN ×3 (05:12→21:30)
[2022-03-17] MEDS: POLYETHYLENE (MIRALAX) 17 GM PACK PO SCH (09:06)
[2022-03-17] MEDS: GABAPENTIN 100 MG CAP PO SCH ×3 (09:07→21:32)
[2022-03-17] MEDS: ASCORBIC ACID 500 MG TAB PO SCH (09:07)
[2022-03-17] MEDS: FAMOTIDINE 20 MG TAB PO SCH ×2 (09:07→21:31)
[2022-03-17] MEDS: CHOLECALCIFEROL 1,000 UNITS 25 MCG TAB PO SCH (09:08)
[2022-03-17] MEDS: lamoTRIgine 25 MG TAB PO SCH ×2 (09:08→21:32)
[2022-03-17] MEDS: lamoTRIgine 100 MG TAB PO SCH ×2 (09:08→21:32)
[2022-03-17] MEDS: GABAPENTIN 800 MG TAB PO SCH ×3 (09:08→21:32)
[2022-03-17] MEDS: PANTOprazole 40 MG TAB PO SCH ×2 (09:08→21:32)
[2022-03-17] MEDS: MULTIVITAMIN TAB PO SCH (09:09)
[2022-03-17] MEDS: FERROUS SULFATE 325 MG TAB PO SCH (09:09)
[2022-03-17] MEDS: METOPROLOL SUCC 50MG EXT REL TAB PO SCH (09:09)
[2022-03-17] MEDS: CETIRIZINE HCL 10 MG TABLET PO SCH (09:09)
[2022-03-17] MEDS: LIDOCAINE 5% 1 PATCH TD SCH (09:09)
[2022-03-17] MEDS: FLUTICASONE PROPIONATE NA SPR 16 GM BTL NAE SCH (09:10)
[2022-03-17] MEDS: ENOXAPARIN INJ 40 MG/0.4 ML SYR SQ SCH (09:10)
[2022-03-17] MEDS: busPIRone 15 MG TAB PO SCH ×2 (09:11→21:32)
[2022-03-17] MEDS: UMECLIDINIUM/VILANTEROL 62.5/25MCG 7 PUFFS/INHALER INH SCH (09:11)
[2022-03-17 09:13] LABS: Hematocrit (blood only) 37.1 % (37-47); Hemoglobin 11.9 g/dL (12.0-16.0); Mean Corpuscular Hemoglobin 32.1 pg (25-34); Mean Corpuscular Hgb Conc 32.1 g/dL (32-36); Mean Platelet Volume 8.5 fL (7.4-10.4); Platelet Count 280 K/uL (130-400); RDW Coefficient of Variation 12.6 % (11.5-14.5); RDW Standard Deviation 46.6 fL (36.4-46.3); Red Blood Count 3.71 M/uL (4.2-5.4); White Blood Count 6.11 K/uL (4.8-10.8)
[2022-03-17 09:23] LABS: BUN Creatinine Ratio 23.1 (10-20); Calcium 8.3 mg/dl (8.5-10.1); Creatinine Clr Calc Pharmacy 65.5 ml/min; Est GFR (African American) 95.1 ml/min; Est GFR (Non-African American) 82.1 ml/min; Potassium 4.5 mmol/L (3.5-5.1)
[2022-03-17 09:52] LABS: ALC (manual) 2.66 K/uL (1.2-3.4); ANC (manual) 3.03 K/uL (1.4-6.5); Eosinophils % (manual) 1.7 %; Lymphocytes # (manual) 2.66 K/uL (1.2-3.4); Lymphocytes % (manual) 43.5 %; Monocytes # (manual) 0.21 K/uL (0.11-0.59); Monocytes % (manual) 3.5 %; Myelocytes % (manual) 1.7 %; Neutrophils # (manual) 3.03 K/uL (1.4-6.5); Neutrophils % (manual) 49.6 %
--- NOTE | 2022-03-17 17:43 | Hospitalist Progress Note ---
Date of Service March 17, 2022 Assessment & Plan (1) Closed left acetabular fracture: Plan: History of recent fall with history of ambulatory dysfunction and hospitalization. Improved with steroid Has had another fall at home with closed left acetabular fracture Has significant pain in the left hip with any movement Appreciate Ortho input and recommendation for conservative management She has been waiting for placement Continue physical therapy-Will need rehab (2) Acute pain of left hip: Plan: Secondary to fall and left acetabular fracture Will add oxycodone for pain control Additional pain medications have been prescribed (3) Chronic back pain: Plan: Chronic back pain remains stable (4) Fall: Plan: History of ambulatory dysfunction (5) COVID-19: Plan: Fully vaccinated with history of COVID in early days Noted to be COVID-19 positive without any symptoms Only symptom she did have is GI upset which is resolved Feels generally weak though Will get repeat COVID test today-first COVID test has been negative Will get second test today (6) History of supraventricular tachycardia: Plan: Rate is stable without any symptoms (7) HCV (hepatitis C virus): Plan: No acute issues at this time (8) Depression: Plan: We will continue current medications DVT prophylaxis Subcu Lovenox Admission and Anticipated Discharge Date Admission Date: March 13, 2022 Subjective 03/14/2022 Patient was seen and examined in medical floor She was admitted with a history of fall at home with left hip pain She was noted to be positive for COVID-19 virus infection Recent mild GI symptoms involving abdominal discomfort with nausea and vomiting which have resolved so far No respiratory symptoms and the patient is fully vaccinated 03/15/2022 The patient was seen and examined in medical floor She remains stable but continues to have pain in the right hip with movement Denies any cardiac and/or respiratory symptoms 03/16/2022 Patient was seen and examined in medical floor Still has pain involving the left hip with ambulation Denies any respiratory symptoms 03/17/2022 The patient was seen and examined in medical floor She has been complaining of pain in the left hip with any movement of the left lower extremity Advised not to put any weight on left lower extremity Review of Systems Review of Systems: All systems reviewed and are unremarkable except as noted below Musculoskeletal: Left hip pain with any movement Physical Exam Physical Exam: Lying in bed comfortably Constitutional: well developed, well nourished, + ill appearing and + obese Eyes: PERRL, conjunctivae normal, anicteric sclerae ENMT: external ear and nose normal, oropharynx normal Neck: trachea midline, no thyromegaly Respiratory: no respiratory distress Auscultation: lungs clear to auscultation bilaterally and + diminished lung sounds Cardiovascular: Rate/Rhythm: regular rate and regular rhythm; not tachycardic Heart Sounds: normal S1 and normal S2; no murmur Extremities: + edema (Trace edema bilaterally) Gastrointestinal (Abdomen): Inspection/Auscultation: normal bowel sounds; abdomen not distended Percussion/Palpation: abdomen soft; abdomen nontender Neurologic: + focal motor deficit Lymphatic: no cervical or axillary lymphadenopathy Results & Data Results & Data ([facility]) Vital Signs (Past 12 Hours) Vital Signs Temp Pulse Resp BP Pulse Ox 03/17/22 14:17 36.6 C 66 18 93/59 L 97 03/17/22 07:34 36.5 C 65 16 116/72 97 Laboratory Results Short CBC 03/17/22 Range/Units 08:47 WBC 6.11 (4.8-10.8) K/uL Hgb 11.9 L (12.0-16.0) g/dL Hct 37.1 (37-47) % Plt Count 280 (130-400) K/uL BMP 03/17/22 08:47 Sodium 134 L Potassium 4.5 Chloride 105 Carbon Dioxide 21 BUN 18 Creatinine 0.78 Glucose 141 H Calcium 8.3 L Medications Administered Current Inpatient Medications Acetaminophen (Acetaminophen 325 Mg Tab) 650 mg PO Q4H PRN PRN Reason: pain/fever Stop: 04/12/22 23:21 Albuterol (Albuterol Hfa 8 Gm Inhaler) 2 puffs INH Q6H PRN PRN Reason: Shortness Of Breath Stop: 04/12/22 23:21 Ascorbic Acid (Ascorbic Acid 500 Mg Tab) 500 mg PO QAM [facility] Stop: 04/13/22 08:59 Last Admin: 03/17/22 09:07 Dose: 500 mg Documented by: Buspirone HCl (Buspirone 15 Mg Tab) 30 mg PO BID [facility] Stop: 04/13/22 08:59 Last Admin: 03/17/22 09:11 Dose: 30 mg Documented by: Cetirizine HCl (Cetirizine Hcl 10 Mg Tablet) 10 mg PO QAM [facility] Stop: 04/13/22 08:59 Last Admin: 03/17/22 09:09 Dose: 10 mg Documented by: Cyanocobalamin (Cyanocobalamin (B-12) 2,500 Mcg Tablet) 5,000 mcg SL QAM [facility] Stop: 04/13/22 08:59 Last Admin: 03/16/22 08:48 Dose: 5,000 mcg Documented by: Diazepam (Diazepam 2 Mg Tablet) 2 mg PO Q8H PRN PRN Reason: Anxiety Stop: 04/12/22 23:21 Last Admin: 03/16/22 20:16 Dose: 2 mg Documented by: Enoxaparin Sodium (Enoxaparin Inj 40 Mg/0.4 Ml Syr) 40 mg SQ Q24H [facility] Stop: 04/13/22 08:59 Last Admin: 03/17/22 09:10 Dose: 40 mg Documented by: Famotidine (Famotidine 20 Mg Tab) 20 mg PO BID [facility] Stop: 04/13/22 08:59 Last Admin: 03/17/22 09:07 Dose: 20 mg Documented by: Ferrous Sulfate (Ferrous Sulfate 325 Mg Tab) 325 mg PO QAM [facility] Stop: 04/13/22 08:59 Last Admin: 03/17/22 09:09 Dose: 325 mg Documented by: Fluticasone Propionate (Fluticasone Propionate Na Spr 16 Gm Btl) 2 sprays [place] DAILY [facility] Stop: 04/13/22 08:59 Last Admin: 03/17/22 09:10 Dose: 2 sprays Documented by: Gabapentin (Gabapentin 100 Mg Cap) 100 mg PO TID [facility] Stop: 04/13/22 08:59 Last Admin: 03/17/22 14:14 Dose: 100 mg Documented by: Gabapentin (Gabapentin 800 Mg Tab) 800 mg PO TID [facility] Stop: 04/13/22 08:59 Last Admin: 03/17/22 14:14 Dose: 800 mg Documented by: Hydromorphone HCl (Hydromorphone Hcl 2 Mg Tab) 4 mg PO Q4 PRN PRN Reason: Pain Stop: 03/27/22 23:21 Last Admin: 03/17/22 17:19 Dose: 4 mg Documented by: Ketorolac Tromethamine (Ketorolac Tromethamine 15 Mg/Ml Vial) 15 mg IV Q6H PRN PRN Reason: Pain Stop: 03/19/22 03:54 Last Admin: 03/17/22 12:34 Dose: 15 mg Documented by: Lamotrigine (Lamotrigine 100 Mg Tab) 100 mg PO BID [facility] Stop: 04/13/22 08:59 Last Admin: 03/17/22 09:08 Dose: 100 mg Documented by: Lamotrigine (Lamotrigine 25 Mg Tab) 50 mg PO BID [facility] Stop: 04/13/22 08:59 Last Admin: 03/17/22 09:08 Dose: 50 mg Documented by: Lidocaine (L[facility]ocaine 5% 1 Patch) [facility] [place]: 04/13/22 08:59 Last Admin: 03/17/22 09:09 Dose: 1 patch Documented by: Meloxicam (Meloxicam 7.5 Mg Tab) 15 mg PO DAILY [facility] Stop: 04/13/22 08:59 Metoprolol Succinate (Metoprolol Succ 50mg Ext Rel Tab) [facility] [place]: 04/13/22 08:59 Last Admin: 03/17/22 09:09 Dose: 50 mg Documented by: Miscellaneous (Remove Lidoderm Patch) 1 ea N/A DAILY@2100 [facility] Stop: 04/13/22 00:44 Last Admin: 03/16/22 20:19 Dose: 1 ea Documented by: Miscellaneous (Lifitegrast [Xiidra] - Order Awaiting Action) 1 ea N/A QS [facility] Stop: 04/13/22 07:59 Last Admin: 03/17/22 14:49 Dose: Not Given Documented by: Montelukast Sodium (Montelukast Sodium 10 Mg Tablet) 10 mg PO QPM [facility] Stop: 04/13/22 20:59 Last Admin: 03/16/22 20:18 Dose: 10 mg Documented by: Multivitamins (Multivitamin Tab) 1 tab PO QAM [facility] Stop: 04/13/22 08:59 Last Admin: 03/17/22 09:09 Dose: 1 tab Documented by: Mupirocin (Mupirocin 2% Oint 22 Gm Tube) 1 appln TOP BID PRN PRN Reason: Skin Irritation Stop: 04/13/22 00:25 Nystatin (Nystatin Susp 500,000 U/5 Ml Udc) 5 ml BUCCAL QID PRN PRN Reason: THRUSH Stop: 03/23/22 23:21 Ondansetron HCl (Ondansetron Inj 2 Mg/Ml 2 Ml Vial) 4 mg IV Q6H PRN PRN Reason: Nausea Stop: 04/12/22 23:21 Oxycodone HCl (Oxycodone Hcl Ir 5 Mg Tab (Immediate Release)) 5 mg PO Q6H PRN PRN Reason: Pain Stop: 03/29/22 16:37 Last Admin: 03/17/22 12:34 Dose: 5 mg Documented by: Pantoprazole Sodium (Pantoprazole 40 Mg Tab) 40 mg PO BID [facility] Stop: 04/13/22 08:59 Last Admin: 03/17/22 09:08 Dose: 40 mg Documented by: Polyethylene Glycol (Polyethylene (Miralax) 17 Gm Pack) 17 gm PO DAILY [facility] Stop: 04/14/22 08:59 Last Admin: 03/17/22 09:06 Dose: 17 gm Documented by: Umeclidinium/Vilanterol (Umeclidinium/Vilanterol 62.5/25mcg 7 Puffs/Inhaler) 1 puffs INH DAILY [facility] Stop: 04/13/22 08:59 Last Admin: 03/17/22 09:11 Dose: 1 puffs Documented by: Vitamin D (Cholecalciferol 1,000 Units 25 Mcg Tab) 1,000 units PO QAM [facility] Stop: 04/13/22 08:59 Last Admin: 03/17/22 09:08 Dose: 1,000 units Documented by: (1) Fall Encounter type: initial encounter Qualified Code(s): W19.XXXA - Unspecified fall, initial encounter
[2022-03-17] MEDS: MONTELUKAST SODIUM 10 MG TABLET PO SCH (21:31)
[2022-03-17] MEDS: diazePAM 2 MG TABLET PO PRN (23:05)
[2022-03-18] MEDS: HYDROmorphone HCL 2 MG TAB PO PRN ×2 (03:14→09:29)
[2022-03-18] MEDS: KETOROLAC TROMETHAMINE 15 MG/ML VIAL IV PRN ×2 (07:32→13:32)
[2022-03-18] MEDS: oxyCODONE HCL IR 5 MG TAB (IMMEDIATE RELEASE) PO PRN ×2 (07:32→13:33)
[2022-03-18] MEDS: FLUTICASONE PROPIONATE NA SPR 16 GM BTL NAE SCH (08:23)
[2022-03-18] MEDS: LIDOCAINE 5% 1 PATCH TD SCH (08:23)
[2022-03-18] MEDS: UMECLIDINIUM/VILANTEROL 62.5/25MCG 7 PUFFS/INHALER INH SCH (08:23)
[2022-03-18] MEDS: POLYETHYLENE (MIRALAX) 17 GM PACK PO SCH (08:23)
[2022-03-18] MEDS: CHOLECALCIFEROL 1,000 UNITS 25 MCG TAB PO SCH (08:24)
[2022-03-18] MEDS: ENOXAPARIN INJ 40 MG/0.4 ML SYR SQ SCH (08:24)
[2022-03-18] MEDS: PANTOprazole 40 MG TAB PO SCH (08:24)
[2022-03-18] MEDS: lamoTRIgine 25 MG TAB PO SCH (08:25)
[2022-03-18] MEDS: ASCORBIC ACID 500 MG TAB PO SCH (08:25)
[2022-03-18] MEDS: lamoTRIgine 100 MG TAB PO SCH (08:26)
[2022-03-18] MEDS: GABAPENTIN 800 MG TAB PO SCH ×2 (08:26→13:32)
[2022-03-18] MEDS: METOPROLOL SUCC 50MG EXT REL TAB PO SCH (08:26)
[2022-03-18] MEDS: FERROUS SULFATE 325 MG TAB PO SCH (08:26)
[2022-03-18] MEDS: CETIRIZINE HCL 10 MG TABLET PO SCH (08:26)
[2022-03-18] MEDS: busPIRone 15 MG TAB PO SCH (08:26)
[2022-03-18] MEDS: GABAPENTIN 100 MG CAP PO SCH ×2 (08:26→13:32)
[2022-03-18] MEDS: CYANOCOBALAMIN (B-12) 2,500 MCG TABLET SL SCH (08:26)
[2022-03-18] MEDS: MULTIVITAMIN TAB PO SCH (08:27)
[2022-03-18] MEDS: FAMOTIDINE 20 MG TAB PO SCH (08:27)
--- NOTE | 2022-03-18 12:36 | Hospitalist Progress Note ---
Date of Service March 18, 2022 Assessment & Plan (1) Closed left acetabular fracture: Plan: History of recent fall with history of ambulatory dysfunction and hospitalization. Improved with steroid Has had another fall at home with closed left acetabular fracture Has significant pain in the left hip with any movement Appreciate Ortho input and recommendation for conservative management She has been waiting for placement Continue physical therapy-Will need rehab Accepted to [facility] and will be discharged this afternoon (2) Acute pain of left hip: Plan: Secondary to fall and left acetabular fracture Will add oxycodone for pain control Additional pain medications have been prescribed We will continue current pain medications as prescribed (3) Chronic back pain: Plan: Chronic back pain remains stable (4) Fall: Plan: History of ambulatory dysfunction Strongly advised to take precaution to avoid falls (5) COVID-19: Plan: Fully vaccinated with history of COVID in early days Noted to be COVID-19 positive without any symptoms Only symptom she did have is GI upset which is resolved Feels generally weak though Will get repeat COVID test today-first COVID test has been negative Will get second test today-second COVID test came back negative after 24 hours Does not require any isolation and the patient can be discharged to the facility (6) History of supraventricular tachycardia: Plan: Rate is stable without any symptoms (7) HCV (hepatitis C virus): Plan: No acute issues at this time (8) Depression: Plan: We will continue current medications DVT prophylaxis Subcu Lovenox Will be discharged to [facility] this afternoon Admission and Anticipated Discharge Date Admission Date: March 13, 2022 Subjective 03/14/2022 Patient was seen and examined in medical floor She was admitted with a history of fall at home with left hip pain She was noted to be positive for COVID-19 virus infection Recent mild GI symptoms involving abdominal discomfort with nausea and vomiting which have resolved so far No respiratory symptoms and the patient is fully vaccinated 03/15/2022 The patient was seen and examined in medical floor She remains stable but continues to have pain in the right hip with movement Denies any cardiac and/or respiratory symptoms 03/16/2022 Patient was seen and examined in medical floor Still has pain involving the left hip with ambulation Denies any respiratory symptoms 03/17/2022 The patient was seen and examined in medical floor She has been complaining of pain in the left hip with any movement of the left lower extremity Advised not to put any weight on left lower extremity 03/18/2022 The patient was seen and examined in medical floor She has been complaining of pain in the left hip but otherwise denies any other symptoms No respiratory symptoms Review of Systems Review of Systems: All systems reviewed and are unremarkable except as noted below Musculoskeletal: Left hip pain with any movement Physical Exam Physical Exam: Sitting on a chair without any acute distress Constitutional: well developed, well nourished, + ill appearing and + obese Eyes: PERRL, conjunctivae normal, anicteric sclerae ENMT: external ear and nose normal, oropharynx normal Neck: trachea midline, no thyromegaly Respiratory: no respiratory distress Auscultation: lungs clear to auscultation bilaterally and + diminished lung sounds Cardiovascular: Rate/Rhythm: regular rate and regular rhythm; not tachycardic Heart Sounds: normal S1 and normal S2; no murmur Extremities: + edema (Trace edema bilaterally) Gastrointestinal (Abdomen): Inspection/Auscultation: normal bowel sounds; abdomen not distended Percussion/Palpation: abdomen soft; abdomen nontender Neurologic: + focal motor deficit Psychiatric: A+Ox3, euthymic affect Lymphatic: no cervical or axillary lymphadenopathy Results & Data Results & Data ([facility]) Vital Signs (Past 12 Hours) Vital Signs Temp Pulse Resp BP Pulse Ox 03/18/22 07:18 36.4 C L 69 16 100/64 98 Medications Administered Current Inpatient Medications Acetaminophen (Acetaminophen 325 Mg Tab) 650 mg PO Q4H PRN PRN Reason: pain/fever Stop: 04/12/22 23:21 Albuterol (Albuterol Hfa 8 Gm Inhaler) 2 puffs INH Q6H PRN PRN Reason: Shortness Of Breath Stop: 04/12/22 23:21 Ascorbic Acid (Ascorbic Acid 500 Mg Tab) 500 mg PO QAM [facility] Stop: 04/13/22 08:59 Last Admin: 03/18/22 08:25 Dose: 500 mg Documented by: Buspirone HCl (Buspirone 15 Mg Tab) 30 mg PO BID [facility] Stop: 04/13/22 08:59 Last Admin: 03/18/22 08:26 Dose: 30 mg Documented by: Cetirizine HCl (Cetirizine Hcl 10 Mg Tablet) 10 mg PO QAM [facility] Stop: 04/13/22 08:59 Last Admin: 03/18/22 08:26 Dose: 10 mg Documented by: Cyanocobalamin (Cyanocobalamin (B-12) 2,500 Mcg Tablet) 5,000 mcg SL QAM [facility] Stop: 04/13/22 08:59 Last Admin: 03/18/22 08:26 Dose: 5,000 mcg Documented by: Diazepam (Diazepam 2 Mg Tablet) 2 mg PO Q8H PRN PRN Reason: Anxiety Stop: 04/12/22 23:21 Last Admin: 03/17/22 23:05 Dose: 2 mg Documented by: Enoxaparin Sodium (Enoxaparin Inj 40 Mg/0.4 Ml Syr) 40 mg SQ Q24H [facility] Stop: 04/13/22 08:59 Last Admin: 03/18/22 08:24 Dose: 40 mg Documented by: Famotidine (Famotidine 20 Mg Tab) 20 mg PO BID [facility] Stop: 04/13/22 08:59 Last Admin: 03/18/22 08:27 Dose: 20 mg Documented by: Ferrous Sulfate (Ferrous Sulfate 325 Mg Tab) 325 mg PO QAM [facility] Stop: 04/13/22 08:59 Last Admin: 03/18/22 08:26 Dose: 325 mg Documented by: Fluticasone Propionate (Fluticasone Propionate Na Spr 16 Gm Btl) 2 sprays MALLORIE DAILY [facility] Stop: 04/13/22 08:59 Last Admin: 03/18/22 08:23 Dose: 2 sprays Documented by: Gabapentin (Gabapentin 100 Mg Cap) 100 mg PO TID [facility] Stop: 04/13/22 08:59 Last Admin: 03/18/22 08:26 Dose: 100 mg Documented by: Gabapentin (Gabapentin 800 Mg Tab) 800 mg PO TID [facility] Stop: 04/13/22 08:59 Last Admin: 03/18/22 08:26 Dose: 800 mg Documented by: Hydromorphone HCl (Hydromorphone Hcl 2 Mg Tab) 4 mg PO Q4 PRN PRN Reason: Pain Stop: 03/27/22 23:21 Last Admin: 03/18/22 09:29 Dose: 4 mg Documented by: Ketorolac Tromethamine (Ketorolac Tromethamine 15 Mg/Ml Vial) 15 mg IV Q6H PRN PRN Reason: Pain Stop: 03/19/22 03:54 Last Admin: 03/18/22 07:32 Dose: 15 mg Documented by: Lamotrigine (Lamotrigine 100 Mg Tab) 100 mg PO BID [facility] Stop: 04/13/22 08:59 Last Admin: 03/18/22 08:26 Dose: 100 mg Documented by: Lamotrigine (Lamotrigine 25 Mg Tab) 50 mg PO BID [facility] Stop: 04/13/22 08:59 Last Admin: 03/18/22 08:25 Dose: 50 mg Documented by: Lidocaine (Lidocaine 5% 1 Patch) [facility]: 04/13/22 08:59 Last Admin: 03/18/22 08:23 Dose: 1 patch Documented by: Meloxicam (Meloxicam 7.5 Mg Tab) 15 mg PO DAILY [facility] Stop: 04/13/22 08:59 Metoprolol Succinate (Metoprolol Succ 50mg Ext Rel Tab) [facility] Stop: 04/13/22 08:59 Last Admin: 03/18/22 08:26 Dose: 50 mg Documented by: Miscellaneous (Remove Lidoderm Patch) 1 ea N/A DAILY@2100 [facility] Stop: 04/13/22 00:44 Last Admin: 03/17/22 22:21 Dose: 1 ea Documented by: Miscellaneous (Lifitegrast [Xiidra] - Order Awaiting Action) 1 ea N/A QS [facility] Stop: 04/13/22 07:59 Last Admin: 03/18/22 07:00 Dose: Not Given Documented by: Montelukast Sodium (Montelukast Sodium 10 Mg Tablet) 10 mg PO QPM [facility] Stop: 04/13/22 20:59 Last Admin: 03/17/22 21:31 Dose: 10 mg Documented by: Multivitamins (Multivitamin Tab) 1 [facility] Stop: 04/13/22 08:59 Last Admin: 03/18/22 08:27 Dose: 1 tab Documented by: Mupirocin (Mupirocin 2% Oint 22 Gm Tube) 1 appln TOP BID PRN PRN Reason: Skin Irritation Stop: 04/13/22 00:25 Nystatin (Nystatin Susp 500,000 U/5 Ml Udc) 5 ml BUCCAL QID PRN PRN Reason: THRUSH Stop: 03/23/22 23:21 Ondansetron HCl (Ondansetron Inj 2 Mg/Ml 2 Ml Vial) 4 mg IV Q6H PRN PRN Reason: Nausea Stop: 04/12/22 23:21 Oxycodone HCl (Oxycodone Hcl Ir 5 Mg Tab (Immediate Release)) 5 mg PO Q6H PRN PRN Reason: Pain Stop: 03/29/22 16:37 Last Admin: 03/18/22 07:32 Dose: 5 mg Documented by: Pantoprazole Sodium (Pantoprazole 40 Mg Tab) 40 mg PO BID [facility] Stop: 04/13/22 08:59 Last Admin: 03/18/22 08:24 Dose: 40 mg Documented by: Polyethylene Glycol (Polyethylene (Miralax) 17 Gm Pack) 17 gm PO DAILY [facility] Stop: 04/14/22 08:59 Last Admin: 03/18/22 08:23 Dose: 17 gm Documented by: Umeclidinium/Vilanterol (Umeclidinium/Vilanterol 62.5/25mcg 7 Puffs/Inhaler) 1 puffs INH DAILY [facility] Stop: 04/13/22 08:59 Last Admin: 03/18/22 08:23 Dose: 1 puffs Documented by: Vitamin D (Cholecalciferol 1,000 Units 25 Mcg Tab) 1,000 units PO QAM [facility] Stop: 04/13/22 08:59 Last Admin: 03/18/22 08:24 Dose: 1,000 units Documented by: (1) Fall Encounter type: initial encounter Qualified Code(s): W19.XXXA - Unspecified fall, initial encounter
--- NOTE | 2022-03-19 07:48 | Discharge Summary ---
Date of Service March 19, 2022 Admission HPI Per Admitting Provider DICTATED BY:Yakov Medina MD CHIEF COMPLAINT: Left hip pain and ambulatory dysfunction. HISTORY OF PRESENT ILLNESS: This is a 61-year-old female with past medical history significant for paroxysmal SVT, status post ablation; history of COPD; past tobacco and alcohol abuse; history of gastroparesis; medical history of HCV, status post treatment; mood disorder; GERD status post surgery; chronic back pain; history of drug addiction as per records; history of COVID pneumonia in 08/2020. The patient was recently in the hospital for falling on left side at home and complaining of left hip pain. Imaging studies showed some chronic hardware loosening of back surgery, but no hip fracture. Ortho was consulted and advised to follow with her primary orthopedic surgeon, thought her left hip pain was not related to chronic hardware loosening, she improved with a short course of prednisone, Tylenol and there was plan for rehabilitation placement, but she did fine and she went home.She also followed [facility] on last Thursday and she is status post pain pump stimulator in the right superior buttock region. The patient states that the stimulator has helped her back pain, but h er left leg pain is getting worse. She is not able to ambulate properly at home. She uses a walker, but not able to ambulate much. The pain is getting worse, she came to the ER today. Except for nausea, denies any other complaints, resting comfortably, hemodynamically stable. Denies any headache, no dizziness, no blurred vision, no earache, no runny nose, no sore throat, no cough, no difficulty swallowing. Appetite is okay. Was nauseous earlier, but significantly improved with Zofran. No chest pain, no shortness of breath, no abdominal pain. Constipated. Denies any blood in stool or black stool. Normal bladder movements. She has some mild swelling in the left lower extremity. Admission Exam Per Admitting Provider GENERAL: The patient is of moderately built, not in acute distress. VITAL SIGNS: Temperature 36.7, pulse of 73, respiratory rate 18, blood pressure 138/91, oxygen 98% on room air. HEENT: Pupils equal, round and reactive to light. Oral mucosa moist. NECK: No JVD, no neck masses. CARDIOVASCULAR: S1 and S2 heard. Regular rate and rhythm. No murmur, no gallop. RESPIRATORY SYSTEM: Normal AP diameter. No accessory muscle use. No wheezing, no crackles. ABDOMEN: Soft, bowel sounds present, nontender, no distention. CENTRAL NERVOUS SYSTEM: Cranial nerves II-XII grossly intact, nonfocal. EXTREMITIES: Slight left lower extremity edema, no erythema seen. MUSCULOSKELETAL: Straight leg raise positive on the left lower extremity. Principal Diagnosis Closed left acetabular fracture, left hip pain, chronic back pain, depression, history of hepatitis C Discharge Exam Sitting on a chair without any acute distress Constitutional well developed, well nourished, + ill appearing and + obese Eyes PERRL, conjunctivae normal, anicteric sclerae ENMT external ear and nose normal, oropharynx normal Neck trachea midline, no thyromegaly Respiratory no respiratory distress Auscultation: lungs clear to auscultation bilaterally and + diminished lung sounds Cardiovascular Rate/Rhythm: regular rate and regular rhythm; not tachycardic Heart Sounds: normal S1 and normal S2; no murmur Extremities: + edema (Trace edema bilaterally) Gastrointestinal (Abdomen) Inspection/Auscultation: normal bowel sounds; abdomen not distended Percussion/Palpation: abdomen soft; abdomen nontender Neurologic + focal motor deficit Psychiatric A+Ox3, euthymic affect Lymphatic no cervical or axillary lymphadenopathy Discharge Data Allergies Allergy/AdvReac Type Severity Reaction Status Date / Time hydroxyzine Allergy Severe THROAT Verified 03/13/22 21:59 CONSTRICTS/CAN NOT VOID baclofen Allergy Intermediate DIZZY, Verified 03/13/22 21:59 HAND TREMORS chlorpromazine AdvReac Intermediate LIGHTHEADED Verified 03/13/22 21:59 DIZZY clarithromycin AdvReac Intermediate vomiting Verified 03/13/22 21:59 lisinopril AdvReac Intermediate Cough Verified 03/13/22 21:59 prednisolone AdvReac Intermediate N/V Verified 03/13/22 21:59 Consultations 03/13/22 21:16 ED Decision to Admit Stat 03/14/22 08:34 Consult Orthopedic Surgery Routine Ordered Studies 03/13/22 18:52 CT femur LT wo con Stat CT lumbar spine wo con Stat CT pelvis wo con Stat 03/13/22 18:55 CT hip LT wo con Stat Hospital Course (1) Closed left acetabular fracture: History of recent fall with history of ambulatory dysfunction and hospitalization. Improved with steroid Has had another fall at home with closed left acetabular fracture Has significant pain in the left hip with any movement Appreciate Ortho input and recommendation for conservative management She has been waiting for placement Continue physical therapy-Will need rehab Accepted to [facility] and will be discharged this afternoon (2) Acute pain of left hip: Secondary to fall and left acetabular fracture Will add oxycodone for pain control Additional pain medications have been prescribed We will continue current pain medications as prescribed (3) Chronic back pain: Chronic back pain remains stable (4) Fall: History of ambulatory dysfunction Strongly advised to take precaution to avoid falls (5) COVID-19: Fully vaccinated with history of COVID in early days Noted to be COVID-19 positive without any symptoms Only symptom she did have is GI upset which is resolved Feels generally weak though Will get repeat COVID test today-first COVID test has been negative Will get second test today-second COVID test came back negative after 24 hours Does not require any isolation and the patient can be discharged to the facility (6) History of supraventricular tachycardia: Rate is stable without any symptoms (7) HCV (hepatitis C virus): No acute issues at this time (8) Depression: We will continue current medications DVT prophylaxis Subcu Lovenox Will be discharged to [facility] this afternoon Total Time Total Time Spent Total Time Spent (In Minutes): 35 minutes Discharge Plan Discharge Items Patient Disposition: Transfer Inpatient Rehab Fac Reason For Visit: LEG PAIN Discharge Diagnosis: Closed left acetabular fracture, left hip pain, chronic back pain, depression, history of hepatitis C Condition on Discharge: Fair Activity: As commented below Activity Comment: As recommended by physical therapy Weightbearing: Left toe touch Non-emergency contact: Primary Care Provider Call non-emergency contact if: you have any medication questions and your symptoms worsen Follow-up/Referrals: Jerome Murillo MD [Primary Care Provider] - (Please make an appointment with your primary care physician within 7 days following discharge from the facility) Florencio Ziegler DO [Physician] - (Please make a follow-up appointment within 4 weeks) Diet: Regular Addtl Attending Provider Instructions: Please take precautions to avoid falls Recommendations from the orthopedic surgeon: She can be touch toe weightbearing. It will take 6 to 8 weeks from the time of injury before she would feel comfortable being weightbearing as tolerated. It will take 3 months for the bone to fully heal. She is orthopedically stable for discharge when medically ready. She may need rehab placement if she is unable to return home with touch toe weightbearing restrictions. She can follow-up with orthopedics in 4 weeks. Pending Studies at Discharge: No Stand-Alone Forms: [facility] Skilled Items Patient informed of condition?: Yes DNR: No Discharge Level of Care: Acute rehab Communicable Disease: No Discharge Prognosis: Stable Lines: None Urinary Catheter: No Medications and DC Order Prescriptions: Continued (DME) Oxygen Home Liters Per Minute See Rx Instructions .ROUTE .MEDSUPPLY Qty: 1 RF: 0 Anoro Ellipta 62.5-25 mcg/actuation blister with device 1 inh INH DAILY Qty: 1 RF: 5 Xiidra 5 % dropperette 1 drp ophthalmic (eye) BID RF: 0 fluticasone propionate 50 mcg/actuation spray,suspension 2 spray intranasal DAILY RF: 0 gabapentin 100 mg capsule 100 mg PO TID RF: 0 gabapentin 800 mg Tablet 800 mg PO TID RF: 0 montelukast [Singulair] 10 mg Tablet 10 mg PO QPM RF: 0 cholecalciferol (vitamin D3) [Vitamin D3] 1,000 unit Capsule 1,000 unit PO QAM RF: 0 ondansetron 8 mg Tablet,Disintegrating 8 mg PO Q8H PRN (Reason: Nausea) RF: 0 buspirone 30 mg Tablet 30 mg PO BID RF: 0 ascorbic acid (vitamin C) [Vitamin C] 500 mg Tablet 500 mg PO QAM RF: 0 ferrous sulfate 325 mg (65 mg iron) Tablet 325 mg PO QAM RF: 0 ergocalciferol (vitamin D2) [Vitamin D2] 1,250 mcg (50,000 unit) Capsule 1,250 mcg PO MONTHLY RF: 0 cyanocobalamin (vitamin B-12) [Vitamin B-12] 5,000 mcg Tablet, Sublingual 5,000 mcg SUBLINGUAL QAM RF: 0 pantoprazole 40 mg Tablet,Delayed Release (Dr/Ec) 40 mg PO BID RF: 0 mupirocin 2 % ointment 1 appln TOP BID PRN (Reason: Skin Irritation) RF: 0 cetirizine [Zyrtec] 10 mg Tablet 10 mg PO QAM RF: 0 albuterol sulfate 90 mcg/actuation Hfa Aerosol Inhaler 2 puff INHALATION Q6H PRN (Reason: Shortness Of Breath) RF: 0 lamotrigine 150 mg tablet 150 mg PO BID RF: 0 Abilify Maintena 400 mg suspension,extended rel syring 400 mg IM MONTHLY RF: 0 Adult Multivitamin Gummies 200 mcg Tablet,Chewable 1 tab PO QAM RF: 0 meloxicam 15 mg tablet 15 mg PO DAILY RF: 0 hydromorphone 2 mg tablet 4 mg PO Q4 PRN (Reason: Pain) RF: 0 metoprolol succinate 50 mg Tablet Extended Release 24 Hr 50 mg PO QAM RF: 0 famotidine 20 mg Tablet 20 mg PO BID RF: 0 nystatin 100,000 unit/mL suspension 5 ml buccal QID PRN (Reason: THRUSH) RF: 0 diazepam 2 mg tablet 2 mg PO Q8H PRN (Reason: Anxiety) RF: 0 lidocaine 5 % Adhesive Patch,Medicated 1 patch transdermal QAM 14 Days Qty: 14 RF: 0 Discontinued cefdinir 300 mg capsule 300 mg PO BID RF: 0 Discharge Orders: Discharge Order (Routine); Ordered 03/18/22 Ordered By: Yunior Payton Admission Data Admit Date/Time: 03/13/22 21:47 Attending Provider: Yunior Payton Admit Provider: Yakov Medina Primary Care Provider: Jerome Murillo Other Providers: Gage Miranda ; Florencio Ziegler ; Yakov Medina ; [facility] Other Interventions: Discharge Summary Assessment (RN) Last Done: 03/18/22 09:45
== END 2022-03-18 14:31 | DRG 535 ==
LOC: ED 17:46 → 3E 21:47 → SUATTDRO 21:47 → 3E 22:54